=== PATIENT | female | born 1960 | race Caucasian/White ===

== ENCOUNTER 2016-06-26 08:23 | Inpatient (IN) | payer MEDICARE ==
--- NOTE | 2016-06-26 09:13 | ED ---
General Adult HPI - General Chief complaint: Back Pain/Injury Stated complaint: weakness, chest pressure, Time Seen by Provider: 06/26/16 08:36 Source: patient, RN notes reviewed Mode of arrival: wheelchair Limitations: no limitations - History of Present Illness Initial comments: Patient is a 55-year-old female significant past medical history for chronic back pain, hypertension, hyperlipidemia, diabetes, who presents emergency room today with a chief complaint of increased lower back pain with some chest pain. Patient does admit that she's noticed the symptoms the last 3 days. Patient states that she has noticed when she goes to from assisted to standing position she has increased pain in her back that radiates around to the abdomen at times and then shoots down her legs. She states it feels like her legs are shaking. She states that she at times also felt some chest pressure with this. Patient states she has to sit back down and the symptoms resolved. Patient denies any bowel or bladder incontinence retention. She denies any saddle anesthesia. She denies any to her back. She does admit to a lumbar fusion approximately 15 years ago. At this time patient states she is comfortable as she is laying down in stretcher. Patient denies any recent fever, chills, shortness of breath , chest pain, back pain, abdominal pain, nausea or vomiting, numbness or tingling, dysuria or hematuria, constipation or diarrhea, headaches or visual changes, or any other complaints. - Related Data Home Medications Medication Instructions Recorded Confirmed Gabapentin 600 mg PO HS 03/18/14 06/26/16 Gabapentin [Neurontin] 300 mg PO DAILY 03/18/14 06/26/16 Insulin Aspart [NovoLOG] See Protocol SQ AC-TID PRN 03/18/14 06/26/16 Insulin NPH Hum/Reg Insulin Hm 10 unit SQ HS 03/18/14 06/26/16 [NovoLIN 70-30 100 UNIT/ML VIAL] Lisinopril [Prinivil] 20 mg PO DAILY 03/18/14 06/26/16 metFORMIN HCL [Glucophage] 500 mg PO BID 03/18/14 06/26/16 Acetaminophen [Tylenol] 325 mg PO Q4H PRN 06/26/16 06/26/16 Atorvastatin [Lipitor] 80 mg PO HS 06/26/16 06/26/16 DULoxetine HCL [Cymbalta] 60 mg PO HS 06/26/16 06/26/16 HYDROcodone/APAP 5-325MG [[place] 1 tab PO Q6HR PRN 06/26/16 06/26/16 5-325] Insulin NPH Hum/Reg Insulin Hm 15 unit SQ AC-BRKFST 06/26/16 06/26/16 [NovoLIN 70-30 100 UNIT/ML VIAL] Previous Rx's Medication Instructions Recorded Omeprazole [PriLOSEC] 20 mg PO AC-BID #60 capsule. 08/12/14 Allergies Allergy/AdvReac Type Severity Reaction Status Date / Time gluten AdvReac Nausea & Verified 06/26/16 08:54 Vomiting & Diarrhea soy AdvReac Nausea & Verified 06/26/16 08:54 Vomiting & Diarrhea wheat AdvReac Nausea & Verified 06/26/16 08:54 Vomiting & Diarrhea Review of Systems ROS Statement: Those systems with pertinent positive or pertinent negative responses have been documented in the HPI. ROS Other: All systems not noted in ROS Statement are negative. Past Medical History Past Medical History: Diabetes Mellitus, Hyperlipidemia, Hypertension Additional Past Medical History / Comment(s): pancreatitis X2 (Last was 05/02), celiac disease, feet neuropathy, DJD History of Any Multi-Drug Resistant Organisms: None Reported Past Surgical History: Back Surgery, Cholecystectomy, Orthopedic Surgery Additional Past Surgical History / Comment(s): spinal cord stimulator, knee Sx Left side Past Anesthesia/Blood Transfusion Reactions: No Reported Reaction Additional Past Anesthesia/Blood Transfusion Reaction / Comment(s): Never had blood transfusion Past Psychological History: No Psychological Hx Reported Smoking Status: Current every day smoker Past Alcohol Use History: None Reported Past Drug Use History: None Reported - Past Family History Father Family Medical History: Liver Disease Additional Family Medical History / Comment(s): Idiopathic cirrosis of liver Mother Family Medical History: Coronary Artery Disease (CAD), Hyperlipidemia, Hypertension, Myocardial Infarction ([place]) Additional Family Medical History / Comment(s): Multiple stents General Exam - General Exam Comments Initial Comments: General: The patient is awake and alert, in no distress, and does not appear acutely ill. Eye: Pupils are equal, round and reactive to light, extra-ocular movements are intact. No nystagmus. There is normal conjunctiva bilaterally. No signs of icterus. Ears, nose, mouth and throat: There are moist mucous membranes and no oral lesions. Neck: The neck is supple, there is no tenderness or JVD. Cardiovascular: There is a regular rate and rhythm. No murmur, rub or gallop is appreciated. Respiratory: Lungs are clear to auscultation, respirations are non-labored, breath sounds are equal. No wheezes, stridor, rales, or rhonchi. Gastrointestinal: Soft, non-distended, non-tender abdomen without masses or organomegaly noted. There is no rebound or guarding present. No CVA tenderness. Bowel sounds are unremarkable. Musculoskeletal: Normal ROM, no tenderness. Normal appearance of the thoracic , lumbar spine with no step-offs forms appreciated. Strength 5/5. Sensation intact. Pulses equal bilaterally 2+. Neurological: A&O x 3. CN II-XII intact, There are no obvious motor or sensory deficits. Coordination appears grossly intact. Speech is normal. Skin: Skin is warm and dry and no rashes or lesions are noted. Psychiatric: Cooperative, appropriate mood & affect, normal judgment. Limitations: no limitations Course Vital Signs 06/26/16 06/26/16 08:25 09:19 Temperature 98.2 F Pulse Rate 99 85 Respiratory 16 16 Rate Blood Pressure 133/89 135/96 O2 Sat by Pulse 96 98 Oximetry EKG Findings - EKG Comments: EKG Findings:: EKG performed at 9:00: A 12-lead EKG was performed and interpreted by me as showing the following: Rate is 83, and rhythm is normal sinus. There are normal QRS complexes and normal R-wave progression. ST segments have no elevation or depression, and DE segments appear normal. Medical Decision Making - Medical Decision Making Case discussed in detail with attending physician Dr. Adhikari.Patient reexamined at this time shows no signs of distress. No chest pain at emergency room. Does admit the pain is reproduced she stands up begins walking. Patient x-ray of the lower back shows stable findings. X-ray of the chest negative for any acute abnormalities. Patient's EKG shows normal sinus rhythm. Patient's reticulocyte enzymes are negative. Magnesium 1.4. Patient's blood sugar elevated. Patient placed on sliding scale given a gram of magnesium will be admitted to observation for serial enzymes. - Lab Data Result diagrams: 06/26/16 08:28 06/26/16 08:28 Lab Results 06/26/16 06/26/16 06/26/16 Range/Units 08:28 08:28 08:28 WBC 6.8 (3.8-10.6) k/uL RBC 5.53 H (3.80-5.40) m/uL Hgb 17.6 H (11.4-16.0) gm/dL Hct 48.2 H (34.0-46.0) % MCV 87.0 (80.0-100.0) fL MCH 31.8 (25.0-35.0) pg MCHC 36.5 (31.0-37.0) g/dL RDW 14.5 (11.5-15.5) % Plt Count 190 (150-450) k/uL Neutrophils % 61 % Lymphocytes % 29 % Monocytes % 5 % Eosinophils % 2 % Basophils % 1 % Neutrophils # 4.1 (1.3-7.7) k/uL Lymphocytes # 2.0 (1.0-4.8) k/uL Monocytes # 0.4 (0-1.0) k/uL Eosinophils # 0.1 (0-0.7) k/uL Basophils # 0.1 (0-0.2) k/uL Hyperchromasia Slight Poikilocytosis Slight PT (9.0-12.0) sec INR (<1.1) APTT (22.0-30.0) sec Sodium 133 L (137-145) mmol/L Potassium 3.9 (3.5-5.1) mmol/L Chloride 97 L (98-107) mmol/L Carbon Dioxide 22 (22-30) mmol/L Anion Gap 14 mmol/L BUN 12 (7-17) mg/dL Creatinine 0.54 (0.52-1.04) mg/dL Est GFR (MDRD) Af Amer >60 (>60 ml/min/1.73 sqM) Est GFR (MDRD) Non-Af >60 (>60 ml/min/1.73 sqM) Glucose 365 H (74-99) mg/dL Calcium 9.5 (8.4-10.2) mg/dL Magnesium 1.4 L (1.6-2.3) mg/dL Total Bilirubin 0.8 (0.2-1.3) mg/dL AST 26 (14-36) U/L ALT 36 (9-52) U/L Alkaline Phosphatase 73 (38-126) U/L Total Creatine Kinase 40 (30-135) U/L CK-MB (CK-2) 1.1 (0.0-2.4) ng/mL CK-MB (CK-2) Rel Index 2.8 Troponin I <0.012 (0.000-0.034) ng/mL Total Protein 7.8 (6.3-8.2) g/dL Albumin 4.3 (3.5-5.0) g/dL 06/26/16 Range/Units 08:28 WBC (3.8-10.6) k/uL RBC (3.80-5.40) m/uL Hgb (11.4-16.0) gm/dL Hct (34.0-46.0) % MCV (80.0-100.0) fL MCH (25.0-35.0) pg MCHC (31.0-37.0) g/dL RDW (11.5-15.5) % Plt Count (150-450) k/uL Neutrophils % % Lymphocytes % % Monocytes % % Eosinophils % % Basophils % % Neutrophils # (1.3-7.7) k/uL Lymphocytes # (1.0-4.8) k/uL Monocytes # (0-1.0) k/uL Eosinophils # (0-0.7) k/uL Basophils # (0-0.2) k/uL Hyperchromasia Poikilocytosis PT 10.6 (9.0-12.0) sec INR 1.0 (<1.1) APTT 24.2 (22.0-30.0) sec Sodium (137-145) mmol/L Potassium (3.5-5.1) mmol/L Chloride (98-107) mmol/L Carbon Dioxide (22-30) mmol/L Anion Gap mmol/L BUN (7-17) mg/dL Creatinine (0.52-1.04) mg/dL Est GFR (MDRD) Af Amer (>60 ml/min/1.73 sqM) Est GFR (MDRD) Non-Af (>60 ml/min/1.73 sqM) Glucose (74-99) mg/dL Calcium (8.4-10.2) mg/dL Magnesium (1.6-2.3) mg/dL Total Bilirubin (0.2-1.3) mg/dL AST (14-36) U/L ALT (9-52) U/L Alkaline Phosphatase (38-126) U/L Total Creatine Kinase (30-135) U/L CK-MB (CK-2) (0.0-2.4) ng/mL CK-MB (CK-2) Rel Index Troponin I (0.000-0.034) ng/mL Total Protein (6.3-8.2) g/dL Albumin (3.5-5.0) g/dL Disposition Clinical Impression: Chest pain, Back pain, Lumbar radiculopathy Disposition: ADMITTED IP TO THIS [facility] Condition: Stable Time of Disposition: 10:12
[2016-06-26 09:22] LABS: Partial Thromboplastin Time 24.2 sec (22.0-30.0); Prothrombin Time 10.6 sec (9.0-12.0)
[2016-06-26 09:24] LABS: Basophils # (A) 0.1 k/uL (0-0.2); Basophils % (A) 1 %; Eosinophils # (A) 0.1 k/uL (0-0.7); Eosinophils % (A) 2 %; HCT 48.2 % (34.0-46.0); HDW 3.52; HGB 17.6 gm/dL (11.4-16.0); Hyperchromasia Slight; Luc # (Auto) 0.13; Luc % (Auto) 2; Lymphocytes % (A) 29 %; MCH 31.8 pg (25.0-35.0); MCHC 36.5 g/dL (31.0-37.0); Mean Platelet Volume 7.4; Monocytes # (A) 0.4 k/uL (0-1.0); Monocytes % (A) 5 %; Neutrophils # (A) 4.1 k/uL (1.3-7.7); Neutrophils % (A) 61 %; Poikilocytosis Slight; RBC 5.53 m/uL (3.80-5.40); RDW 14.5 % (11.5-15.5); WBC 6.8 k/uL (3.8-10.6)
--- NOTE | 2016-06-26 09:26 | XR ---
EXAMINATION TYPE: XR chest 2V DATE OF EXAM: 06/26/2016 9:15 AM COMPARISON: 08/18/2014 HISTORY: Shortness of breath TECHNIQUE: Frontal and lateral views of the chest are obtained. FINDINGS: Scattered senescent parenchymal changes noted. Hyperinflation compatible with COPD. No evidence for infiltrate. No evidence for atelectasis. Heart size is stable. Mediastinal structures are stable and grossly unremarkable. No evidence for hilar prominence. Degenerative changes dorsal spine. IMPRESSION: 1. No evidence for acute pulmonary disease.
[2016-06-26 09:28] LABS: Creatine Kinase 40 U/L (30-135)
[2016-06-26 09:30] LABS: ALT 36 U/L (9-52); AST 26 U/L (14-36); Alkaline Phosphatase 73 U/L (38-126); Anion Gap 14 mmol/L; Blood Urea Nitrogen 12 mg/dL (7-17); Calcium 9.5 mg/dL (8.4-10.2); Carbon Dioxide 22 mmol/L (22-30); Chloride 97 mmol/L (98-107); Glucose 365 mg/dL (74-99); Magnesium 1.4 mg/dL (1.6-2.3); Non-African American GFR(MDRD) >60 (>60 ml/min/1.73 sqM); Potassium 3.9 mmol/L (3.5-5.1); Sodium 133 mmol/L (137-145); Total Bilirubin 0.8 mg/dL (0.2-1.3); Total Protein 7.8 g/dL (6.3-8.2)
--- NOTE | 2016-06-26 09:32 | XR ---
EXAMINATION TYPE: XR lumbar spine 2 or 3V DATE OF EXAM: 06/26/2016 9:15 AM CLINICAL HISTORY: pain TECHNIQUE: Three views of the lumbar spine are submitted. COMPARISON: None. FINDINGS: Postsurgical changes of fusion are noted at L4-5 and L5-S1. Pedicular screws are in place. There is g rade 1 anterolisthesis L3 on L4 measuring 3.3 mm. Degenerative narrowing is seen at L1-L2 and to a le ss extent at L2-3 and L3-4. Ventral spondylosis is identified. IMPRESSION: Postoperative changes of lumbar fusion. Grade 1 anterolisthesis of L3 on L4. Degenerative changes as noted. ICD 10 NO FRACTURE, INITIAL EVALUATION
[2016-06-26 09:40] LABS: Creatine Kinase MB 1.1 ng/mL (0.0-2.4); Troponin I <0.012 ng/mL (0.000-0.034)
[2016-06-26] MEDS ORDERED: NITROGLYCERIN SL TABS 0.4 MG TAB SUBLINGUAL PRN (10:17)
[2016-06-26] MEDS ORDERED: HEPARIN SODIUM,PORCINE 5,000 UNIT/ML 1 ML VIAL IV ONE (10:17)
[2016-06-26] MEDS ORDERED: ASPIRIN 81 MG CHEW PO STA (10:17)
[2016-06-26] MEDS ORDERED: SODIUM CHLORIDE 0.9% 1,000 ML IV ONE (10:17)
[2016-06-26] MEDS ORDERED: MAGNESIUM SULFATE-D5W PMX 1 GM in DEXTROSE/WATER 1 100ML.BAG IVPB ONE (10:20)
[2016-06-26] MEDS: HEPARIN SODIUM,PORCINE/D5W PMX 25,000 UNIT in DEXTROSE/WATER 1 500ML.BAG IV SCH (10:35)
[2016-06-26 11:00] LABS: Hemoglobin A1C 9.4 % (4.2-6.1)
[2016-06-26 13:18] LABS: Glucose,Whole Blood 382 mg/dL (75-99)
[2016-06-26] MEDS ORDERED: INSULIN LISPRO (humaLOG) 300 UNIT/3 ML VIAL SQ ONE (13:18)
[2016-06-26] MEDS ORDERED: ACETAMINOPHEN TAB 325 MG TAB PO PRN (14:30)
[2016-06-26 14:35] LABS: Creatine Kinase 34 U/L (30-135)
[2016-06-26 14:48] LABS: Troponin I <0.012 ng/mL (0.000-0.034)
[2016-06-26 15:11] LABS: Glucose,Whole Blood 314 mg/dL (75-99)
[2016-06-26] MEDS: INSULIN LISPRO (humaLOG) 300 UNIT/3 ML VIAL SQ SCH ×3 (15:20→20:48)
[2016-06-26] MEDS: INSULIN NPH/REG INSULIN 70/30 300 UNIT/3 ML VIAL SQ SCH (15:21)
[2016-06-26] MEDS: GABAPENTIN 300 MG CAP PO SCH ×2 (15:21→20:47)
[2016-06-26] MEDS: LISINOPRIL 20 MG TAB PO SCH (15:21)
[2016-06-26] MEDS ORDERED: HEPARIN SODIUM,PORCINE 5,000 UNIT/ML 1 ML VIAL IV STA (17:28)
[2016-06-26 17:29] LABS: Glucose,Whole Blood 291 mg/dL (75-99)
[2016-06-26] MEDS: PANTOPRAZOLE 40 MG TABLET PO SCH (17:42)
[2016-06-26] MEDS: HYDROcodone/APAP 5-325MG 1 EACH TAB PO PRN ×2 (17:51→23:03)
--- NOTE | 2016-06-26 19:00 | HP ---
DATE OF ADMISSION: [id number] with past medical history of ( ) complains of back pain radiating to the lower limbs. The patient does not have any significant weakness. Patient's [id number] test is positive. Patient denied any ( ) and patient had back surgeries in the past. Patient is also complaining of chest pressure-like sensation which ( ) from her chronic low back pain, because of which she ( ) came to the ER. Patient's pain is on and off, sharp in nature, non-radiating, mostly in the back radiating to the front. Patient has diffuse chest pain; appears to mostly musculoskeletal. Denied any relationship with food. Denied any shortness of breath. Her pain is about 6 to 7 out of 10 in severity. Chest pain is mostly pressure-like sensation, about 3 to 4 out of 10 in severity. Patient denied any fever, chills, cough, runny nose. Patient's chest pain is non-pleuritic in nature. We are obtaining PT and OT consultation because of her severe back pain and patient may have issues at home ambulating and patient will need pain control as well. Along with that, will also rule out acute coronary syndromes. Home medications include: 1. Gabapentin. 2. Insulin Aspart. 3. Sliding scale 70/30 10 units subcutaneously at bedtime. 4. ( ) 5. Metformin 500 p.o. b.i.d. 6. Acetaminophen. 7. Atorvastatin. 8. Duloxetine. 9. Hydrocodone/acetaminophen. 10. NPH 15 units at breakfast 70/30. 11. Omeprazole. ALLERGIES: 1. GLUTEN. 2. SOY. 3. WHEAT. REVIEW OF SYSTEMS: CONSTITUTIONAL: No fever, no malaise, no fatigue. HEENT: No recent visual problems or hearing problems. Denied any sore throat. CARDIOVASCULAR: As described in HPI. PULMONARY: No shortness of breath, no cough, no hemoptysis. GASTROINTESTINAL: No diarrhea, no nausea, no vomiting, no abdominal pain. Normoactive bowel sounds. NEUROLOGICAL: No headaches, no weakness, no numbness. HEMATOLOGICAL: Denies any bleeding or petechiae. GENITOURINARY: Denies any burning micturition, frequency, or urgency. MUSCULOSKELETAL/RHEUMATOLOGICAL: As described in HPI. ENDOCRINE: Denies any polyuria or polydipsia. The rest of the 14 point review of systems is negative. Past medical history is significant for: 1. Pancreatitis twice. 2. Celiac disease. 3. Neuropathy. 4. Degenerative joint disease. 5. Chronic back problems, back surgery. 6. Diabetes mellitus, type 2. 7. Hyperlipidemia. 8. Hypertension. 9. Back surgery. 10. Cholecystectomy. Patient does smoke. Denied any alcohol abuse or any drug abuse. FAMILY HISTORY: Father had hepatitis C, idiopathic cirrhosis of the liver. Mother had coronary artery disease, hyperlipidemia, hypertension, myocardial infarction. PHYSICAL EXAMINATION: VITAL SIGNS: Temperature 98.2, pulse of 85, respiratory rate of 16. Blood pressure is 135/96. Saturating at 98% on room air. GENERAL: The patient is alert and oriented x3, not in any acute distress. Well developed, well nourished. HEENT: Pupils are round and equally reacting to light. EOMI. No scleral icterus. No conjunctival pallor. Normocephalic, atraumatic. No pharyngeal erythema. No thyromegaly. CARDIOVASCULAR: S1 and S2 present. No murmurs, rubs, or gallops. PULMONARY: Chest is clear to auscultation, no wheezing or crackles. ABDOMEN: Soft, nontender, nondistended, normoactive bowel sounds. No palpable organomegaly. MUSCULOSKELETAL: As described above. EXTREMITIES: No cyanosis, clubbing, or pedal edema. NEUROLOGICAL: The patient does not appear to have any focal neurological deficits. SKIN: No rashes. LABORATORY DATA: CBC, CMP are abnormal for elevated hemoglobin of 17.6 secondary probably to chronic hypoxemia versus hemoconcentration from smoking. Sodium is 133. Patient will be started on ( ) rest of the laboratory data essentially within normal limits. EKG not significant. No significant new ST-T wave changes. PT and INR essentially within normal limits. ASSESSMENT AND PLAN: 1. Chest pain; appears to be mostly musculoskeletal. Will ( ) set of troponins ( ) 2. Chronic low back pain. Patient has issues with her ADLs, because of which we will get PT and OT evaluation; if she will benefit from ( ) therapy. 3. Diabetes mellitus. Continue with her home regimen and t.i.d. blood sugar monitoring. 4. Hyponatremia; appears to be mildly ( ) patient will be given IV fluids. 5. Elevated hematocrit, probably ( ) hypoxemia. 6. Hypertension. 7. Hyperlipidemia. For above-mentioned chronic medical problems, I will go ahead and continue her home medications and monitor vitals.
[2016-06-26] MEDS: DULoxetine HCL 60 MG CAPSULE.DR PO SCH (20:47)
[2016-06-26] MEDS: ATORVASTATIN 80 MG TAB PO SCH (20:47)
[2016-06-26 20:48] LABS: Glucose,Whole Blood 392 mg/dL (75-99)
[2016-06-26] MEDS ORDERED: INSULIN NPH/REG INSULIN 70/30 300 UNIT/3 ML VIAL SQ SCH (21:00)
[2016-06-26 21:54] LABS: Creatine Kinase 31 U/L (30-135)
[2016-06-26 22:06] LABS: Creatine Kinase MB 0.9 ng/mL (0.0-2.4); Troponin I <0.012 ng/mL (0.000-0.034)
[2016-06-26] MEDS ORDERED: MAG HYDROX/AL HYDROX/SIMETH 30 ML CUP PO PRN (23:01)
[2016-06-27 06:31] LABS: Glucose,Whole Blood 285 mg/dL (75-99)
[2016-06-27 08:22] LABS: Cholesterol 207 mg/dL (<200); HDL Cholesterol 40 mg/dL (40-60)
[2016-06-27] MEDS ORDERED: ASPIRIN 325 MG TAB PO SCH (09:00)
--- NOTE | 2016-06-27 09:38 | P.CRDCN ---
History of Present Illness Consult date: 06/27/16 Chief complaint: Chest discomfort History of present illness: This is a pleasant 55-year-old female patient who never seen a hematology technologist with a past medical history significant for diabetes, hypertension , dyslipidemia, and significant history of smoking, presented to the emergency room not feeling well. The patient describes vague low back pain but over the last several days she has been experiencing discomfort in the chest as a pressure across her chest seems to be mostly exertional once she goes upstairs and down stairs. Nociceptive symptoms of shortness of breath, sweating, or dizziness or lightheadedness. The cardiac enzymes were checked and came in to be unremarkable. The EKG showed dynamic changes in the anterolateral leads. I am concerned about severe underlying CAD in this 55-year-old female with multiple risk factors as well as significant history of smoking as well as significant family history of CAD who also have what it seems to be dynamic EKG changes. Past Medical History Past Medical History: Diabetes Mellitus, GERD/Reflux, Hyperlipidemia, Hypertension Additional Past Medical History / Comment(s): IDDM type I, pancreatitis X2 ( Last was 05/02), celiac disease, feet neuropathy, chronic low back pain, UTIs, duodenitis/duodenal ulcer, hiatal hernia. History of Any Multi-Drug Resistant Organisms: None Reported Past Surgical History: Back Surgery, Cholecystectomy, Orthopedic Surgery Additional Past Surgical History / Comment(s): Lumbar fusion, spinal cord stimulator, L knee arthroscopy, EGD. Past Anesthesia/Blood Transfusion Reactions: No Reported Reaction Additional Past Anesthesia/Blood Transfusion Reaction / Comment(s): Never had blood transfusion Past Psychological History: No Psychological Hx Reported Additional Psychological History / Comment(s): Pt resides with her spouse and their 16 yr old son. She is independent. Smoking Status: Current every day smoker Past Alcohol Use History: None Reported Additional Past Alcohol Use History / Comment(s): Pt is currently trying to quit smoking. She started smoking in 1989. Past Drug Use History: None Reported - Past Family History Father Family Medical History: Liver Disease Additional Family Medical History / Comment(s): Idiopathic cirrosis of liver Mother Family Medical History: Coronary Artery Disease (CAD), Hyperlipidemia, Hypertension, Myocardial Infarction ([place]) Additional Family Medical History / Comment(s): Multiple stents. Mother at the age of 77 or 78yrs from [place]. Medications and Allergies Home Medications Medication Instructions Recorded Confirmed Type Gabapentin 600 mg PO HS 03/18/14 06/26/16 History Gabapentin [Neurontin] 300 mg PO DAILY 03/18/14 06/26/16 History Insulin Aspart [NovoLOG] See Protocol SQ AC-TID PRN 03/18/14 06/26/16 History Insulin NPH Hum/Reg Insulin Hm 10 unit SQ HS 03/18/14 06/26/16 History [NovoLIN 70-30 100 UNIT/ML VIAL] Lisinopril [Prinivil] 20 mg PO DAILY 03/18/14 06/26/16 History metFORMIN HCL [Glucophage] 500 mg PO BID 03/18/14 06/26/16 History Acetaminophen [Tylenol] 325 mg PO Q4H PRN 06/26/16 06/26/16 History Atorvastatin [Lipitor] 80 mg PO HS 06/26/16 06/26/16 History DULoxetine HCL [Cymbalta] 60 mg PO HS 06/26/16 06/26/16 History HYDROcodone/APAP 5-325MG [[place] 1 tab PO Q6HR PRN 06/26/16 06/26/16 History 5-325] Insulin NPH Hum/Reg Insulin Hm 15 unit SQ AC-BRKFST 06/26/16 06/26/16 History [NovoLIN 70-30 100 UNIT/ML VIAL] Allergies Allergy/AdvReac Type Severity Reaction Status Date / Time gluten AdvReac Nausea & Verified 06/26/16 08:54 Vomiting & Diarrhea soy AdvReac Nausea & Verified 06/26/16 08:54 Vomiting & Diarrhea wheat AdvReac Nausea & Verified 06/26/16 08:54 Vomiting & Diarrhea Physical Exam Vitals: Vital Signs Temp Pulse Pulse Resp BP BP Pulse Ox 06/27/16 07:47 97.9 F 72 16 119/75 94 L 06/27/16 07:23 93 L 06/27/16 04:00 97.7 F 77 16 106/72 100 06/26/16 23:55 16 06/26/16 23:37 98.0 F 78 16 107/63 93 L 06/26/16 20:00 16 06/26/16 19:50 97.7 F 87 16 107/67 94 L 06/26/16 17:08 92 L 06/26/16 16:00 16 06/26/16 13:48 98.0 F 75 16 124/83 96 06/26/16 13:11 97.8 F 82 16 156/82 95 06/26/16 11:51 76 16 129/79 96 Intake and Output 06/26/16 06/27/16 06/27/16 22:59 06:59 14:59 Intake Total 486.841 168.198 Balance 486.841 168.198 Intake: Intake, IV Titration 126.841 168.198 Amount Heparin Sodium,Porcine/ 126.841 168.198 D5w Pmx 25,000 unit In Dextrose/Water 1 500ml. bag @ 12 UNITS/KG/HR 17. 74 mls/hr IV .Q24H MAGALY Rx #:[id number] Oral 360 Other: # Voids 1 1 - Constitutional General appearance: no acute distress - Respiratory Respiratory: bilateral: CTA - Cardiovascular Rhythm: regular Heart sounds: normal: S1, S2 Results 06/26/16 08:28 06/26/16 08:28 Cardiac Enzymes 06/26/16 06/26/16 Range/Units 14:00 21:11 CK-MB (CK-2) 1.0 0.9 (0.0-2.4) ng/mL Troponin I <0.012 <0.012 (0.000-0.034) ng/mL Coagulation 06/26/16 06/26/16 06/27/16 Range/Units 16:03 23:54 07:16 APTT 25.9 26.5 29.4 (22.0-30.0) sec Current Medications Generic Name Dose Route Start Last Admin Trade Name Freq PRN Reason Stop Dose Admin Acetaminophen 325 mg 06/26/16 14:30 Tylenol Tab PO Q4H PRN Pain Hydrocodone Bitart/Acetaminophen 1 each 06/26/16 14:30 06/26/16 23:03 [place] 5-325 PO 1 each Q6HR PRN Administration Pain Al Hydroxide/Mg Hydroxide 30 ml 06/26/16 23:01 06/26/16 23:44 Maalox PO 30 ml Q4HR PRN Administration GI Upset Aspirin 325 mg 06/27/16 09:00 Aspirin PO DAILY MAGALY Atorvastatin Calcium 80 mg 06/26/16 21:00 06/26/16 20:47 Lipitor PO 80 mg HS MAGALY Administration Duloxetine HCl 60 mg 06/26/16 21:00 06/26/16 20:47 Cymbalta PO 60 mg HS MAGALY Administration Gabapentin 600 mg 06/26/16 21:00 06/26/16 20:47 Neurontin PO 600 mg HS MAGALY Administration Gabapentin 300 mg 06/26/16 14:45 06/26/16 15:21 Neurontin PO 300 mg DAILY MAGALY Administration Heparin Sodium/Dextrose 25,000 500 mls @ 17.74 mls/hr 06/26/16 10:30 01:19 unit/ IV Solution IV 18 units/kg/hr .Q24H MAGALY 26.61 mls/hr Protocol Titration 12 UNITS/KG/HR Sodium Chloride 1,000 mls @ 20 mls/hr 06/26/16 10:17 06/26/16 10:29 Saline 0.9% IV 06/27/16 10:16 20 mls/hr .Q24H ONE Administration Insulin Human Isoph/Insulin Regular 15 unit 06/26/16 14:45 06/26/16 15:21 Humulin 70/30 Vial SQ 15 unit AC-BRKFST MAGALY Administration Insulin Human Isoph/Insulin Regular 10 unit 06/26/16 21:00 06/26/16 20:48 Humulin 70/30 Vial SQ 10 unit HS MAGALY Administration Insulin Human Lispro 0 unit 06/26/16 12:30 06/26/16 20:48 Humalog SQ 7 unit ACHS MAGALY Administration Protocol Lisinopril 20 mg 06/26/16 14:45 06/26/16 15:21 Zestril PO 20 mg DAILY MAGALY Administration Nitroglycerin 0.4 mg 06/26/16 10:17 Nitrostat SUBLINGUAL Q5M PRN Chest Pain Pantoprazole Sodium 40 mg 06/26/16 17:30 06/26/16 17:42 Protonix PO 40 mg AC-BID MAGALY Administration Intake and Output 06/26/16 06/27/16 06/27/16 22:59 06:59 14:59 Intake Total 486.841 168.198 Balance 486.841 168.198 Intake: Intake, IV Titration 126.841 168.198 Amount Heparin Sodium,Porcine/ 126.841 168.198 D5w Pmx 25,000 unit In Dextrose/Water 1 500ml. bag @ 12 UNITS/KG/HR 17. 74 mls/hr IV .Q24H MAGALY Rx #:[id number] Oral 360 Other: # Voids 1 1 Assessment and Plan Plan: Assessment #1 intermittent episodes of chest discomfort #2 dynamic EKG changes #3 multiple risk factors for CAD Plan #1 I recommended proceeding with heart catheterization.
[2016-06-27] MEDS ORDERED: ASPIRIN 325 MG TAB PO STA (09:48)
[2016-06-27] MEDS ORDERED: NITROGLYCERIN SL TABS 0.4 MG TAB SUBLINGUAL PRN (09:48)
[2016-06-27] MEDS ORDERED: SODIUM CHLORIDE 0.9% 1,000 ML in EMPTY BAG 1 BAG IV ONE (09:48)
[2016-06-27] MEDS ORDERED: ALPRAZolam 0.25 MG TAB PO PRN (09:48)
[2016-06-27] MEDS ORDERED: ATORVASTATIN 80 MG TAB PO STA (09:48)
[2016-06-27] MEDS: INSULIN LISPRO (humaLOG) 300 UNIT/3 ML VIAL SQ SCH ×4 (09:50→22:02)
[2016-06-27] MEDS: PANTOPRAZOLE 40 MG TABLET PO SCH ×2 (09:58→17:42)
[2016-06-27] MEDS: GABAPENTIN 300 MG CAP PO SCH ×2 (09:58→22:00)
[2016-06-27 10:22] LABS: Triglycerides 826 mg/dL (<150)
[2016-06-27] MEDS: LISINOPRIL 20 MG TAB PO SCH (10:37)
[2016-06-27 10:44] VITALS: BMI 24.7
[2016-06-27 12:06] LABS: Glucose,Whole Blood 383 mg/dL (75-99)
[2016-06-27] MEDS: HYDROcodone/APAP 5-325MG 1 EACH TAB PO PRN ×2 (17:04→23:00)
[2016-06-27 17:17] LABS: Glucose,Whole Blood 355 mg/dL (75-99)
[2016-06-27] MEDS: INSULIN NPH/REG INSULIN 70/30 300 UNIT/3 ML VIAL SQ SCH ×2 (17:43→22:02)
[2016-06-27] MEDS ORDERED: INSULIN REGULAR 100 UNIT/ML VIAL IV ONE (18:00)
[2016-06-27 20:34] LABS: Glucose,Whole Blood 320 mg/dL (75-99)
[2016-06-27] MEDS: DULoxetine HCL 60 MG CAPSULE.DR PO SCH (22:00)
[2016-06-27] MEDS: ALPRAZolam 0.5 MG TAB PO PRN (22:59)
--- NOTE | 2016-06-27 23:06 | PN ---
SUBJECTIVE DATA/INTERVAL HISTORY: This is a 55-year-old female that was admitted to the hospital with complaints of vague lower abdominal pain and some chest discomfort over the last few days. The patient does state to have reproducible of these symptoms on exertion. Today patient did state to have reproducibility of the symptoms while the patient was ambulating to the restroom. EKG on initial evaluation, showed some subtle changes in the anterolateral leads. Cardiac enzymes x3 have been negative. OBJECTIVE DATA: Today includes: Vital signs of temperature 96.7, heart rate 75, respiratory rate 16, blood pressure 109/67, saturating 95% on room air. GENERALLY: Patient appears to be alert, oriented x3. HEENT: The pupils are equal and reactive to light and accommodation. HEART: S1, S2 present. No murmur appreciated. LUNGS: Good air entry. No wheezing or rhonchi noted. ABDOMINAL EXAM: Soft, nontender, no organomegaly appreciated. GENITOURINARY: No Ragland in place. EXTREMITIES: Pulses can be palpated distally. Denies any tenderness on gross palpation. SKIN: On a gross skin exam does not appear to have any purpura or any skin rashes that were noted. NEUROLOGICALLY: Grossly cranial nerves 2-12 intact. No motor or sensory deficits noted. Labs include hemoglobin 17.6, hematocrit 48.2 and platelets of 190. This is from 06/26/2016. Today's labs include triglycerides of 826, cholesterol 207, glucose levels between 285 and 383. ASSESSMENT AND PLAN: 1. Atypical chest pain with some concern with some typical features including exertional reproducibility of pain with significant risk factors including diabetes, ongoing tobacco use and family history. 2. Triglyceridemia. 3. Diabetic neuropathy. 4. Gastroesophageal reflux disease. 5. Ongoing tobacco use. 6. Hypertension. 7. Anxiety. PLAN: Due to reproduce of symptoms, the patient is to undergo a cardiac catheterization as recommended by the log cut off sawyer. We will adjust the insulin dosing to 15 twice a day to insulin Humulin 70/30 and NovoLog sliding scale a.c. q.h.s. We will also give an additional 5 units of IV regular insulin to control her glucose levels slightly better at this time. Disposition will be dependent on the results of the cardiac catheterization. Smoking cessation is recommended to the patient.
[2016-06-28] MEDS: HYDROcodone/APAP 5-325MG 1 EACH TAB PO PRN (04:00)
[2016-06-28 06:57] LABS: Glucose,Whole Blood 253 mg/dL (75-99)
[2016-06-28] MEDS: ASPIRIN 325 MG TAB PO SCH (09:44)
[2016-06-28] MEDS: PANTOPRAZOLE 40 MG TABLET PO SCH ×2 (09:44→17:20)
[2016-06-28] MEDS: GABAPENTIN 300 MG CAP PO SCH ×2 (09:44→22:49)
[2016-06-28] MEDS: LISINOPRIL 20 MG TAB PO SCH (09:44)
[2016-06-28] MEDS: ATORVASTATIN 80 MG TAB PO SCH (09:45)
[2016-06-28] MEDS ORDERED: MIDAZOLAM 2 MG/2 ML VIAL IVP ONE ×2 (10:14→11:48)
[2016-06-28] MEDS ORDERED: LIDOCAINE 2% INJ 20 MG/ML SQ ONE ×3 (10:15→12:03)
[2016-06-28] MEDS ORDERED: IV FLUID CONTINUATION 150 ML IV ONE (11:48)
[2016-06-28] MEDS: VERAPAMIL SYRINGE (5 MG/10 ML) INTRAARTER ONE ×2 (12:06→12:50)
[2016-06-28] MEDS ORDERED: HYDROmorphone 2 MG/ML 1 ML SYRINGE IV ONE (12:12)
[2016-06-28] MEDS: fentaNYL (PF) 50 MCG/ML 2 ML AMP IV ONE ×2 (12:15→12:25)
[2016-06-28] MEDS ORDERED: BIVALIRUDIN BOLUS 250 MG/50 ML IV ONE (12:22)
[2016-06-28] MEDS ORDERED: BIVALIRUDIN 250 MG in SODIUM CHLORIDE 0.9% 50 ML IV ONE (12:22)
[2016-06-28] MEDS: NITROGLYCERIN 1000MCG/10ML SYRINGE INTRACORON ONE ×2 (12:42→12:48)
[2016-06-28] MEDS ORDERED: SODIUM CHLORIDE 0.9% 1,000 ML IV ONE (12:45)
[2016-06-28] MEDS ORDERED: SODIUM CHLORIDE 0.9% 500 ML IV ONE (12:45)
[2016-06-28] MEDS ORDERED: PRASUGREL 10 MG TAB PO ONE (12:50)
[2016-06-28] MEDS ORDERED: IOHEXOL 350 MG/ML 125ML BOTTLE INJ ONE (12:51)
[2016-06-28] MEDS ORDERED: ATROPINE SULFATE 0.1 MG/ML 10ML SYRINGE IV PRN (12:59)
[2016-06-28] MEDS ORDERED: RX INFO: IV CONTRAST WAS GIVEN 1 EACH MISC MISCELLANE PRN (12:59)
[2016-06-28] MEDS ORDERED: MAG HYDROX/AL HYDROX/SIMETH 30 ML CUP PO PRN (12:59)
[2016-06-28] MEDS ORDERED: NITROGLYCERIN SL TABS 0.4 MG TAB SUBLINGUAL PRN (12:59)
[2016-06-28] MEDS ORDERED: SODIUM CHLORIDE 0.9% 1,000 ML IV SCH (13:00)
[2016-06-28 13:17] LABS: Glucose,Whole Blood 281 mg/dL (75-99)
[2016-06-28] MEDS: INSULIN LISPRO (humaLOG) 300 UNIT/3 ML VIAL SQ SCH ×4 (13:51→22:49)
[2016-06-28 16:40] LABS: Glucose,Whole Blood 277 mg/dL (75-99)
[2016-06-28 16:44] LABS: Glucose,Whole Blood 298 mg/dL (75-99)
[2016-06-28] MEDS: INSULIN NPH/REG INSULIN 70/30 300 UNIT/3 ML VIAL SQ SCH ×3 (16:45→22:51)
[2016-06-28 20:38] LABS: Glucose,Whole Blood 248 mg/dL (75-99)
[2016-06-28] MEDS: ALPRAZolam 0.5 MG TAB PO PRN (22:00)
[2016-06-28] MEDS: ZOLPIDEM 5 MG TAB PO PRN (22:01)
[2016-06-28] MEDS: DULoxetine HCL 60 MG CAPSULE.DR PO SCH (22:49)
--- NOTE | 2016-06-28 22:52 | CC ---
DATE OF SERVICE: 06/28/2016 Performing physician: Vipul Lock M.D., instructor product inspection. PROCEDURE PERFORMED: 1. Selective right and left coronary angiogram. 2. Left heart catheterization. 3. Successful stenting of the mid left circumflex using 2.25 x 18 mm Xience BOB with a good angiographic results. INDICATION: This is a pleasant 55-year-old female patient a past medical history significant for diabetes, hypertension, dyslipidemia, who presented to the hospital with chest discomfort. The EKG showed dynamic changes. Most prominent in the anterolateral leads. I recommended proceeding with heart catheterization. Approach: Right radial artery. COMPLICATIONS: None. Level of sedation: Moderate with sedation. Sedation length of 54 minutes. PROCEDURE DESCRIPTION: After obtaining informed consent, the patient was brought to the cardiac landscaping and groundskeeping laborer. Right radial artery was cannulated using micropuncture technique. The micropuncture wire passed easily, then I placed 6 German sheath in the right radial artery. Subsequently, I gave the patient 2 mg Verapamil IA and 3000 units of heparin IV. After that, I did selective right and left coronary angiogram using JR4 and JL 3.5 catheters. After that, I did left heart catheterization using the JR4 diagnostic catheter, which flipped into the LV. I did after that intervene on the left circumflex. Please see separate paragraph for that. SELECTIVE CORONARY ANGIOGRAM: 1. The right coronary artery is a large-caliber vessel and it is a dominant vessel. The proximal right coronary artery is heavy calcified with eccentric lesion in the range of 70% in the mid RCA appeared ( ) the proximal RCA ( ) the mid RCA appeared to be angiographically normal and the RCA distally appeared to have mild disease only. The RCA bifurcates into PDA and PLV branches; both have mild disease only. 2. The left main is angiographically normal. It bifurcates into the left circumflex and left anterior descending artery. 3. The left circumflex is a large-caliber vessel and nondominant vessel. The proximal circumflex appeared to be angiographically normal and gives rise to the first OM, which is a large-caliber vessel, seems to be angiographically normally. The mid left circumflex by the bifurcation of the second OM has another lesion seems to be in the range of 80% to 90%. The circ continues after that as a small to medium caliber vessel in the AV groove. 4. Left anterior descending artery. The proximal LAD appeared to be angiographically normal. It gives rise to a small to diagonal branch. The LAD in the midportion by the bifurcation of the third diagonal branch appeared to have a lesion in the range of 60% to 70%. The second diagonal appeared to be angiographically normally. The LAD distally is angiographically normal. HEMODYNAMICS: The left ventricular end-diastolic pressure was 12 mmHg and no gradient was identified across the aortic valve. PCI of the left circumflex: Anticoagulation was initiated using Angiomax. Subsequently, I took initially a JL 3.5 guide, but I couldn't engage the left main so I switched to JL 3 guide and I was able to engage the left main. Subsequently I wired the left circumflex using a Whisper wire. After that, I did PTCA ballooning using 20 x 12 mm balloon. Then I deployed 2.25 x 18 mm Xience BOB, where the stent was positioned under fluoroscopy guidance and deployed under 12 atmospheres for 20 seconds. The following angiogram showed good showed good angiographic result without perforation and without dissection with excellent flow in the left circumflex. CONCLUSION: 1. Severe disease involving the proximal calcified right coronary artery. 2. Critical disease involving the mid left circumflex coronary artery. 3. Intermediate disease involving the mid left anterior descending artery. 4. Successful stenting of the mid left circumflex using 2.25 x 18 mm Xience BOB with a good angiographic results. POSTPROCEDURE MANAGEMENT: 1. An atherectomy and stenting of the right coronary artery. 2. Fractional flow reserve of the left anterior descending artery. 3. Follow up with the patient.
[2016-06-29 06:01] LABS: Basophils % (A) 1 %; CH 31.2; CHCM 35.6; Eosinophils # (A) 0.2 k/uL (0-0.7); Eosinophils % (A) 3 %; HDW 3.37; HGB 15.6 gm/dL (11.4-16.0); Luc # (Auto) 0.09; Luc % (Auto) 1; Lymphocytes # (A) 2.3 k/uL (1.0-4.8); Lymphocytes % (A) 36 %; MCH 30.5 pg (25.0-35.0); MCHC 34.6 g/dL (31.0-37.0); MCV 88.1 fL (80.0-100.0); Mean Platelet Volume 7.2; Monocytes # (A) 0.3 k/uL (0-1.0); Monocytes % (A) 5 %; Neutrophils # (A) 3.4 k/uL (1.3-7.7); Neutrophils % (A) 54 %; RBC 5.11 m/uL (3.80-5.40); RDW 14.4 % (11.5-15.5); WBC 6.3 k/uL (3.8-10.6); WBC (Perox) 6.24
[2016-06-29 06:07] LABS: Anion Gap 10 mmol/L; Blood Urea Nitrogen 9 mg/dL (7-17); Calcium 8.9 mg/dL (8.4-10.2); Carbon Dioxide 24 mmol/L (22-30); Chloride 102 mmol/L (98-107); Glucose 263 mg/dL (74-99); Non-African American GFR(MDRD) >60 (>60 ml/min/1.73 sqM); Potassium 4.1 mmol/L (3.5-5.1); Sodium 136 mmol/L (137-145)
[2016-06-29 06:21] LABS: Glucose,Whole Blood 266 mg/dL (75-99)
[2016-06-29] MEDS: PANTOPRAZOLE 40 MG TABLET PO SCH ×2 (06:58→17:06)
[2016-06-29] MEDS: INSULIN LISPRO (humaLOG) 300 UNIT/3 ML VIAL SQ SCH ×4 (06:59→21:33)
[2016-06-29] MEDS ORDERED: INSULIN NPH/REG INSULIN 70/30 300 UNIT/3 ML VIAL SQ SCH ×2 (07:30→21:00)
[2016-06-29] MEDS: GABAPENTIN 300 MG CAP PO SCH ×2 (07:37→21:21)
[2016-06-29] MEDS: ASPIRIN 325 MG TAB PO SCH (07:37)
[2016-06-29] MEDS: LISINOPRIL 20 MG TAB PO SCH (07:37)
[2016-06-29] MEDS: PRASUGREL 10 MG TAB PO SCH (07:37)
--- NOTE | 2016-06-29 08:58 | PN ---
DATE OF SERVICE: 06/28/2016 INTERVAL HISTORY: Ms. Caldwell is a 55-year-old female with a known history of hypertension, hyperlipidemia and uncontrolled diabetes mellitus type 2, insulin-dependent, was admitted to the hospital with chest discomfort over the past few days and definite short of breath and chest pain. ( ) have been negative. Patient does have history of significant risk factors including short of breath and chest pain. Patient underwent cardiac catheterization and stenting of circumflex artery today by Dr. Lock. Currently patient denied any dullness or chest pain now. Apparently patient says that patient has been having lethargy and decreased energy for the past one year. Denied any complaints of fever or chills. No nausea, vomiting, or abdominal pain. No acute overnight issues. REVIEW OF SYSTEMS: CONSTITUTIONAL: No fever. No chills. RESPIRATORY: No cough or sputum production. CARDIOVASCULAR: No chest pain or short of breath. ABDOMEN: No nausea, vomiting or abdominal pain. GENITOURINARY: Negative. ENDOCRINE: Negative. PSYCHIATRY: Negative. SKIN: Negative. All of the 14-point review of systems negative except as above. Current medications include [place], Maalox, Xanax, aspirin, Lipitor, atropine, Cymbalta, Neurontin, insulin 70/30, insulin sliding scale, Zestril, Protonix, Prasugrel, and Ambien. PHYSICAL EXAMINATION: A 55-year-old female, lying in the bed comfortably, awake, alert, oriented x3, appears to be in no apparent distress. VITALS: Blood pressure is 132/88, pulse is 76, respirations 16, temperature afebrile, pulse ox 96% on room air. HEENT: Atraumatic, normocephalic. Neck is supple. No JVD. CVS EXAM: S1, S2 heard. No murmurs, no gallop. LUNGS: Bilateral air entry is present. No wheezing. No crackles. Nonlabored breathing. Abdomen is soft, nontender. Bowel sounds are present. CREDIT PROCESSOR: Awake, alert, oriented x3. No focal deficits. EXTREMITIES: No edema. Pulses palpable bilaterally. No clubbing or cyanosis. PSYCHIATRIC: Cooperative. LABORATORY DATA: Reviewed. Triglycerides 826, total cholesterol at 207, LDL could not be calculated. IMPRESSION: 1. Status post coronary artery stent placement to circumflex artery. 2. Atypical chest pain. 3. Hypertriglyceridemia. 4. Diabetic neuropathy. 5. Diabetes type 2, insulin-dependent, uncontrolled , HbA1c of 9.4. 6. Ongoing tobacco use. 7. Hypertension. 8. Anxiety. 9. Hyperlipidemia. 10. Deep venous thrombosis prophylaxis. DISCUSSION AND PLAN: Patient will be continued on insulin 70/30. Will increase the dose and continue with the ( ) and current management including aspirin, statins and beta blockers will be added. Will follow up closely. Further recommendations based on the clinical course. Cardiology is on board.
[2016-06-29 11:45] LABS: Glucose,Whole Blood 342 mg/dL (75-99)
[2016-06-29] MEDS ORDERED: ALPRAZolam 0.25 MG TAB PO PRN (13:21)
[2016-06-29] MEDS ORDERED: NITROGLYCERIN SL TABS 0.4 MG TAB SUBLINGUAL PRN (13:21)
[2016-06-29] MEDS ORDERED: ASPIRIN 325 MG TAB PO STA (13:21)
[2016-06-29] MEDS ORDERED: SODIUM CHLORIDE 0.9% 1,000 ML in EMPTY BAG 1 BAG IV ONE (13:21)
[2016-06-29] MEDS ORDERED: ATORVASTATIN 80 MG TAB PO STA (13:23)
--- NOTE | 2016-06-29 14:12 | CDI ---
In responding to this query, please exercise your independent professional judgment. The [facility] Coding Staff and Clinical Documentation Specialists appreciate your assistance in clarifying documentation, maintaining compliance with coding guidelines, accurately documenting patients condition and capturing severity of illness. The fact that a question is asked does not imply that any particular answer is desired or expected. Communication forms are a method of clarifying documentation and are not made part of the Legal Health Record. Thank you in advance for your clarification. Last Revision, April 2015 Brissa Inman [address] [place] [address] Documentation Clarification Form Date: 06/29/2016 1:30:00 PM From: Samantha Felder Admit Date: 06/27/2016 4:00:00 PM Patient Name: Mary Jo Caldwell Visit Number: [id number] Discharge Date: Dr. Te Diaz Chest pain, atypical is documented in the progress notes on 06/29/16. Patient C/O: Shortness of breath and chest pain, lethargy and decreased energy. History/Risk factors: Uncontrolled diabetes mellitus type 2, Hypertension Clinical Indicators: Present with weakness, chest pressure, and back pain. Vital sign: 133/89 99 16 98.2 96 % EKG: Dynamic changes in the anteriolateral leads. Labs: Troponin: Unremarkable Treatment: PT/OT Consultation Monitor Labs Cardiac Catheterization: Severe disease involving the proximal calcified right coronary artery. Critical disease involving the mid left circumflex coronary artery. Intermediate disease involving the mid left anterior descending artery. PTCA stent mid left circumflex. Consults: Cardiology: concerned about severe underlying CAD. She has multiple risk factors with history of smoking. and family history or CAD. In your professional opinion, can please clarify if the chest pain signifies, or is due to: CAD with unstable angina (vessel type if known and type of angina e.g.; unstable,) Cardiac arrhythmias, specify type if known Chest pain due to stress related disorder, type? Unable to determine Other condition, please specify? Concurrently please document in your progress notes and discharge summary in order to capture severity of illness and risk of mortality. Include clinical findings that support your diagnosis. FYI: Press F11 to launch patient chart Place X here if this finding has no clinical significance, is not applicable or if you are not able to provide any additional documentation. MTDD
--- NOTE | 2016-06-29 15:10 | P.PN ---
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 Ordered to the patient, she has been having episodes of chest discomfort which she describes as a pressure, mostly exertional in nature. Cardiac enzymes came back to be unremarkable EKG however did show dynamic changes in the anterior lateral leads and for this reason she was taken to the cardiac catheterization lab by Dr. Cruz yesterday. The patient underwent successful stenting of the midcircumflex. She was also found to have severe disease involving the proximal RCA, and intermediate disease involving the LAD. She will be scheduled tomorrow to undergo arthrectomy and stenting of the RCA as well as fractional flow reserve of the LAD with possible stenting of that vessel if necessary. She was seen and examined this morning, denies any chest pain or difficulty in breathing. Radial site clean and dry, good distal pulse. Hemodynamically stable. Objective - Vital Signs Vital signs: Vital Signs Temp 98.5 F 06/29/16 11:29 Pulse 66 06/29/16 11:29 Resp 16 06/29/16 11:29 BP 116/72 06/29/16 11:29 Pulse Ox 97 06/29/16 11:29 Intake & Output 06/28/16 06/29/16 06/29/16 18:59 06:59 18:59 Intake Total 712 900 710 Output Total 275 400 Balance 437 900 310 Weight 75.2 kg Intake: IV 282 Intake, IV Titration 10 Amount Sodium Chloride 0.9% 1, 0 000 ml @ 100 mls/hr IV . Q10H [facility] Rx#:[id number] Sodium Chloride 0.9% 500 10 ml As IV .[facility] Rx# :[id number] Oral 430 900 700 Output: Urine 275 400 Other: Voiding Method Toilet Toilet Toilet # Voids 1 2 - Exam PHYSICAL EXAMINATION: HEENT: Head is atraumatic, normocephalic. Pupils equal, round. Neck is supple. There is no elevated jugular venous pressure. HEART EXAMINATION: Heart S1, S2 normal. No murmur or gallop heard. CHEST EXAMINATION: Lungs are clear to auscultation and precussion. No chest wall tenderness is noted on palpation or with deep breathing. ABDOMEN: Soft, nontender. Bowel sounds are heard. No organomegaly noted. Radial site clean and dry, good distal pulse. EXTREMITIES: 2+ peripheral pulses with no evidence of peripheral edema and no calf tenderness noted. NEUROLOGIC patient is awake, alert and oriented -3. . - Labs CBC & Chem 7: 06/29/16 05:45 06/29/16 05:45 Labs: Abnormal Lab Results - Last 24 Hours (Table) 06/28/16 06/28/16 06/28/16 Range/Units 16:23 16:38 20:37 Plt Count (150-450) k/uL Sodium (137-145) mmol/L Creatinine (0.52-1.04) mg/dL Glucose (74-99) mg/dL POC Glucose (mg/dL) 298 H 277 H 248 H (75-99) mg/dL 06/29/16 06/29/16 06/29/16 Range/Units 05:45 05:45 06:18 Plt Count 131 L (150-450) k/uL Sodium 136 L (137-145) mmol/L Creatinine 0.47 L (0.52-1.04) mg/dL Glucose 263 H (74-99) mg/dL POC Glucose (mg/dL) 266 H (75-99) mg/dL 06/29/16 Range/Units 11:37 Plt Count (150-450) k/uL Sodium (137-145) mmol/L Creatinine (0.52-1.04) mg/dL Glucose (74-99) mg/dL POC Glucose (mg/dL) 342 H (75-99) mg/dL Assessment and Plan (1) Presence of stent in left circumflex coronary artery Status: Acute (2) RCA occlusion Status: Acute (3) Occlusion of LAD (left anterior descending) artery Status: Acute (4) Diabetes Status: Acute (5) HTN (hypertension) Status: Acute (6) Hyperlipemia Status: Acute Plan: From cardiology's perspective, we will continue the patient on her current medications. She will be scheduled tomorrow to undergo arthrectomy and stenting of the RCA as well as FFR of the LAD with possible stenting of that vessel if indicated. DNP note has been reviewed, I agree with a documented findings and plan of care. Patient was seen and examined.
[2016-06-29 17:17] LABS: Glucose,Whole Blood 358 mg/dL (75-99)
[2016-06-29] MEDS: HEPARIN SODIUM,PORCINE/D5W PMX 25,000 UNIT in DEXTROSE/WATER 1 500ML.BAG IV SCH (20:33)
[2016-06-29] MEDS: DULoxetine HCL 60 MG CAPSULE.DR PO SCH (21:21)
[2016-06-29] MEDS: ATORVASTATIN 80 MG TAB PO SCH (21:22)
[2016-06-29 21:39] LABS: Glucose,Whole Blood 351 mg/dL (75-99)
[2016-06-29] MEDS: ALPRAZolam 0.5 MG TAB PO PRN (22:58)
[2016-06-29] MEDS: ZOLPIDEM 5 MG TAB PO PRN (22:58)
[2016-06-29] MEDS ORDERED: INSULIN REGULAR 100 UNIT in SODIUM CHLORIDE 0.9% 100 ML IV SCH (23:45)
[2016-06-30 00:36] LABS: Glucose,Whole Blood 335 mg/dL (75-99)
[2016-06-30] MEDS: HYDROcodone/APAP 5-325MG 1 EACH TAB PO PRN ×3 (01:06→22:21)
[2016-06-30 02:33] LABS: Glucose,Whole Blood 228 mg/dL (75-99)
[2016-06-30 04:32] LABS: Glucose,Whole Blood 235 mg/dL (75-99)
[2016-06-30] MEDS: INSULIN LISPRO (humaLOG) 300 UNIT/3 ML VIAL SQ SCH ×4 (06:02→20:51)
[2016-06-30] MEDS: LISINOPRIL 20 MG TAB PO SCH (06:05)
[2016-06-30] MEDS: ASPIRIN 81 MG CHEW PO SCH (06:05)
[2016-06-30] MEDS: GABAPENTIN 300 MG CAP PO SCH ×2 (06:05→20:50)
[2016-06-30] MEDS: PANTOPRAZOLE 40 MG TABLET PO SCH ×2 (06:05→17:07)
[2016-06-30] MEDS: PRASUGREL 10 MG TAB PO SCH (06:05)
[2016-06-30 06:30] LABS: Glucose,Whole Blood 246 mg/dL (75-99)
[2016-06-30 09:00] LABS: Glucose,Whole Blood 203 mg/dL (75-99)
--- NOTE | 2016-06-30 09:10 | PN ---
DATE OF SERVICE: 06/29/2016 INTERVAL HISTORY: Ms. Caldwell is a 55-year-old female with known history of hypertension, hyperlipidemia, and uncontrolled diabetes mellitus. She was admitted to the hospital with chest discomfort and aggressive shortness of breath. Patient underwent cardiac catheterization with stenting of left anterior descending. Patient is also being ( ) catheterization tomorrow for RCA evaluation. Currently, patient denies chest pain now. Blood sugar is still elevated. Otherwise no fever. No chills. No complaints of short of breath. No nausea, vomiting, abdominal pain. No acute overnight issues. REVIEW OF SYSTEMS: CONSTITUTIONAL: No fever. No chills. No weakness, malaise. RESPIRATORY: No cough or sputum production. CARDIOVASCULAR: No chest pain, shortness of breath. No leg swelling. No palpitations. ABDOMEN: No nausea, vomiting, abdominal pain. No diarrhea. GENITOURINARY: No dysuria. ENDOCRINE: Negative. PSYCHIATRIC: Negative. SKIN: Negative. MUSCULOSKELETAL: Negative. All other 14 point review of systems negative except as above. CURRENT MEDICATIONS: Reviewed. PHYSICAL EXAMINATION: A 55-year-old female lying in bed comfortably, awake, alert, oriented x3, appears to be in no apparent distress. VITALS: Blood pressure is 114/75, pulse is 64, respirations 16, temperature afebrile, pulse ox 98% on room. HEENT: Atraumatic, normocephalic. Neck is supple. No JVD. CVS: S1, S2 heard. No murmurs, no gallop, no rub. LUNGS: Bilateral air entry is present. No wheezing. No crackles. Nonlabored breathing. ABDOMEN: Soft, nontender. Bowel sounds are present. FIELD LOGISTICS COORDINATOR: Awake, alert, oriented x3. No focal deficits. EXTREMITIES: No edema. Pulses palpable bilaterally. No clubbing or cyanosis. PSYCHIATRIC: Cooperative. LABORATORY DATA: WBC 6.3, hemoglobin 15.6, platelet is 131. Sodium 136, potassium 4.1, chloride 102, bicarb is 24, BUN 9, creatinine 0.47. Blood sugar is 263, calcium 8.9. IMPRESSION: 1. Coronary artery disease, status post stent placement to circumflex artery and evaluation of right coronary artery disease tomorrow. 2. Unstable angina with coronary artery disease to the left anterior descending. 3. Hypertriglyceridemia. 4. Diabetic neuropathy. 5. Uncontrolled diabetes type 2 insulin-dependent. HbA1c 9.4. 6. Ongoing tobacco use. 7. Hypertension. 8. Anxiety. 9. Hyperlipidemia. 10. Deep venous thrombosis prophylaxis. DISCUSSION AND PLAN: The patient will be continued on insulin dosing and continue the current medications and follow up closely. Cardiac catheterization tomorrow. Cardiology on board. Further recommendations based on clinical course.
[2016-06-30 10:29] LABS: Glucose,Whole Blood 189 mg/dL (75-99)
[2016-06-30] MEDS ORDERED: MIDAZOLAM 2 MG/2 ML VIAL IV ONE (10:55)
[2016-06-30] MEDS ORDERED: LIDOCAINE 2% INJ 20 MG/ML SQ ONE (11:00)
[2016-06-30] MEDS ORDERED: BIVALIRUDIN BOLUS 250 MG/50 ML IV ONE (11:03)
[2016-06-30] MEDS ORDERED: VERAPAMIL SYRINGE (5 MG/10 ML) INTRAARTER ONE (11:04)
[2016-06-30] MEDS ORDERED: BIVALIRUDIN 250 MG in SODIUM CHLORIDE 0.9% 50 ML IV ONE (11:04)
[2016-06-30] MEDS ORDERED: ADENOSINE 90 MG in SODIUM CHLORIDE 0.9% 60 ML IVP ONE (11:12)
[2016-06-30] MEDS ORDERED: HYDROmorphone 2 MG/ML 1 ML SYRINGE IV ONE (11:19)
[2016-06-30] MEDS ORDERED: SODIUM CHLORIDE 0.9% 1,000 ML IV ONE (11:23)
[2016-06-30 11:28] LABS: Glucose,Whole Blood 177 mg/dL (75-99)
[2016-06-30] MEDS ORDERED: NITROGLYCERIN 1000MCG/10ML SYRINGE INTRACORON ONE ×2 (11:39→11:49)
[2016-06-30] MEDS ORDERED: IOHEXOL 350 MG/ML 125ML BOTTLE INJ ONE (11:59)
[2016-06-30] MEDS ORDERED: ZOLPIDEM 5 MG TAB PO PRN (12:00)
[2016-06-30] MEDS ORDERED: MAG HYDROX/AL HYDROX/SIMETH 30 ML CUP PO PRN (12:00)
[2016-06-30] MEDS ORDERED: RX INFO: IV CONTRAST WAS GIVEN 1 EACH MISC MISCELLANE PRN (12:00)
[2016-06-30] MEDS ORDERED: ATROPINE SULFATE 0.1 MG/ML 10ML SYRINGE IV PRN (12:00)
[2016-06-30] MEDS ORDERED: NITROGLYCERIN SL TABS 0.4 MG TAB SUBLINGUAL PRN (12:00)
[2016-06-30] MEDS ORDERED: SODIUM CHLORIDE 0.9% 1,000 ML IV SCH (12:00)
[2016-06-30 12:41] LABS: Glucose,Whole Blood 167 mg/dL (75-99)
[2016-06-30 14:27] LABS: Glucose,Whole Blood 341 mg/dL (75-99)
[2016-06-30 16:32] LABS: Glucose,Whole Blood 254 mg/dL (75-99)
[2016-06-30 20:49] LABS: Glucose,Whole Blood 293 mg/dL (75-99)
[2016-06-30] MEDS: INSULIN NPH/REG INSULIN 70/30 300 UNIT/3 ML VIAL SQ SCH (20:50)
[2016-06-30] MEDS: ATORVASTATIN 80 MG TAB PO SCH (20:50)
[2016-06-30] MEDS: DULoxetine HCL 60 MG CAPSULE.DR PO SCH (20:50)
[2016-06-30] MEDS: ALPRAZolam 0.5 MG TAB PO PRN (22:25)
--- NOTE | 2016-06-30 22:25 | PTCA ---
DATE OF SERVICE: 06/30/2016 PERFORMING PHYSICIAN: Vipul Lock M.D., administrative office manager. PROCEDURES PERFORMED: 1. Fraction flow reserve of the right coronary artery. 2. Successful stenting of the mid LAD using a 2.25 x 26 mm Xience BOB, with good angiographic results. INDICATION: This is a pleasant 55-year-old female patient who presented to the hospital a few days ago with chest discomfort consistent with angina. She underwent heart catheterization which showed triple-vessel CAD. She was found to have intermediate disease in the right coronary artery, severe disease in the left circumflex and LAD. The patient underwent successful stenting of the left circumflex, with good angiographic results. She was brought in today to undergo an FFR of the RCA and stenting of the LAD. APPROACH: Right radial artery. LEVEL OF SEDATION: Moderate, with sedation length of ( )8 minutes. COMPLICATIONS: None. PROCEDURE DESCRIPTION: After obtaining informed consent, the patient was brought to the cardiac micro lab analyst. The right radial artery was cannulated using micropuncture technique, and the micropuncture wire passed easily. Then I placed a 6 [place] sheath in the right radial artery. I gave the patient 2 mg of Verapamil IA and anticoagulation was initiated using Angiomax. At that point I took a JR4 guiding catheter, and the guide was advanced to the aortic root. I did after that an FFR of the RCA. Please see separate paragraph for that. After that I intervened on the LAD; please see separate paragraph for that. FRACTIONAL FLOW RESERVE, FFR of the RCA: After zeroing the Doppler wire and equalizing between the Doppler wire and the guiding catheter, which was JR4 guiding catheter, we did an FFR per IV adenosine infusion after the Doppler wire advanced distal to the lesion in the proximal RCA. The FFR came in to be 0.82, which is borderline non-ischemic. At that point we decided to treat the RCA medically. PCI OF THE LAD: I took a JL3.0 guiding catheter and the left main was engaged. The LAD was wired using a Whisper wire. Subsequently I predilated the lesion using 2.0 x 12 mm balloon, and after that I tried to advance a 2.25 x 28 mm Xience BOB, but the stent would not cross the lesion. So I had to pre-dilate using another 2.0, but this time by 20 mm balloon. After that I was able to cross the lesion with a stent and I advanced a 2.25 x 26 mm Xience BOB, where the stent was positioned under fluoroscopy guidance and deployed under its nominal pressure, which was 10 atmospheres, for 30 seconds. The following angiogram showed good angiographic results. CONCLUSION: 1. Intermediate lesion involving the proximal right coronary artery. It was non-ischemic by fractional flow reserve, which came in to be 0.82. 2. Successful stenting of the mid LAD using a 2.25 x 28 mm Xience BOB, with good angiographic results. POST-PROCEDURE MANAGEMENT: 1. Dual antiplatelet therapy. 2. Risk factor modification. 3. Followup with the patient.
[2016-07-01 05:42] LABS: Glucose,Whole Blood 365 mg/dL (75-99)
[2016-07-01] MEDS: INSULIN LISPRO (humaLOG) 300 UNIT/3 ML VIAL SQ SCH ×5 (06:13→17:12)
[2016-07-01] MEDS: PANTOPRAZOLE 40 MG TABLET PO SCH ×2 (06:14→17:12)
[2016-07-01 06:35] LABS: Non-African American GFR(MDRD) >60 (>60 ml/min/1.73 sqM)
[2016-07-01] MEDS: GABAPENTIN 300 MG CAP PO SCH ×2 (08:23→19:51)
[2016-07-01] MEDS: ASPIRIN 81 MG CHEW PO SCH (08:23)
[2016-07-01] MEDS: PRASUGREL 10 MG TAB PO SCH (08:23)
[2016-07-01] MEDS: LISINOPRIL 20 MG TAB PO SCH (08:24)
[2016-07-01] MEDS: INSULIN NPH/REG INSULIN 70/30 300 UNIT/3 ML VIAL SQ SCH (08:24)
[2016-07-01 10:01] LABS: Glucose,Whole Blood 308 mg/dL (75-99)
[2016-07-01 11:33] LABS: Glucose,Whole Blood 282 mg/dL (75-99)
--- NOTE | 2016-07-01 14:11 | PN ---
DATE OF SERVICE: 06/30/2016 INTERVAL HISTORY: Ms. Caldwell is a 55-year-old female with known history of hypertension, hyperlipidemia and uncontrolled diabetes mellitus, admitted to the hospital with chest discomfort and admitted short of breath. Patient initially underwent cardiac catheterization with stenting of circumflex and today patient underwent cardiac catheterization with successful stenting of the LAD. Patient is pain-free now. Blood sugars are fairly controlled. Patient is currently controlled with insulin 70/30 now along with insulin sliding scale. Otherwise patient denied any new complaints. No nausea, vomiting, abdominal pain. Complete review of systems, negative except as above. Current medications reviews. PHYSICAL EXAMINATION: A 55-year-old female lying in the bed comfortably, awake, alert, oriented x3, appears to be in no apparent distress. VITALS: Blood pressure is 115/69, pulse is 76, respirations 18, temperature afebrile, pulse ox 97% on room air. HEENT: Atraumatic, normocephalic. Neck is supple, no JVD. CVS EXAM: S1, S2 heard. No murmurs, no gallop, no rub. LUNGS: Bilateral air entry is present. No edema or crackles. No lymphadenopathy. Abdomen is soft, nontender. Bowel sounds present. DIMENSION QUARRY SUPERVISOR: Awake, alert and oriented x3. No focal deficit. EXTREMITIES: No edema. Pulses palpable bilaterally. No clubbing or cyanosis. PSYCHIATRIC: Cooperative. LABORATORY DATA: Reviewed. IMPRESSION: 1. Coronary artery disease, status post stent placement to circumflex artery initially and stenting of mid-left anterior descending artery today. 2. Unstable angina with coronary artery disease. 3. Left anterior descending artery in the circumflex artery. 4. Hypertriglyceridemia. 5. Diabetic neuropathy. 6. Uncontrolled diabetes mellitus, HbA1c of 9.4. 7. Ongoing tobacco use. 8. Hypertension. 9. Anxiety. 10. Hyperlipidemia. 11. Deep venous thrombosis prophylaxis. DISCUSSION AND PLAN: Patient will be continued on aspirin and prasugrel. Continue with the beta blockers and current management. Cardiology is on board. Patient was started on insulin drip last night and has been transferred insulin 70/30. Will change sliding scale to high-dose sliding scale and follow up closely. Further recommendations based on the clinical course.
[2016-07-01 17:05] LABS: Glucose,Whole Blood 273 mg/dL (75-99)
[2016-07-01] MEDS: ATORVASTATIN 80 MG TAB PO SCH (19:50)
[2016-07-01] MEDS: DULoxetine HCL 60 MG CAPSULE.DR PO SCH (19:50)
[2016-07-01] MEDS ORDERED: ONDANSETRON 4 MG/2 ML VIAL IVP PRN (20:44)
[2016-07-01] MEDS ORDERED: ONDANSETRON 4 MG/2 ML VIAL ONE ×2 (20:51→21:00)
[2016-07-01] MEDS ORDERED: HYDROcodone/APAP 5-325MG 1 EACH TAB ONE (21:00)
[2016-07-01] MEDS ORDERED: ZOLPIDEM 5 MG TAB ONE (21:00)
[2016-07-01] MEDS ORDERED: ALPRAZolam 0.5 MG TAB ONE (21:00)
[2016-07-01 23:05] LABS: Glucose,Whole Blood 277 mg/dL (75-99)
[2016-07-02 05:54] LABS: Glucose,Whole Blood 301 mg/dL (75-99)
[2016-07-02] MEDS: INSULIN LISPRO (humaLOG) 300 UNIT/3 ML VIAL SQ SCH ×5 (06:04→12:10)
[2016-07-02] MEDS: INSULIN NPH/REG INSULIN 70/30 300 UNIT/3 ML VIAL SQ SCH ×2 (06:04→08:18)
[2016-07-02] MEDS: PANTOPRAZOLE 40 MG TABLET PO SCH (07:10)
[2016-07-02 08:17] VITALS: RESP 16; TEMP 96
[2016-07-02] MEDS: ASPIRIN 81 MG CHEW PO SCH (08:18)
[2016-07-02] MEDS: PRASUGREL 10 MG TAB PO SCH (08:18)
[2016-07-02] MEDS: GABAPENTIN 300 MG CAP PO SCH (08:18)
[2016-07-02] MEDS: LISINOPRIL 20 MG TAB PO SCH (08:18)
--- NOTE | 2016-07-02 09:28 | PN ---
Ms. Caldwell is a 55-year-old female with history of hypertension, hyperlipidemia, and also uncontrolled diabetes mellitus. Patient had a cardiac catheterization and stenting of the LAD initially and repeat stenting of the circumflex yesterday. The patient seems to be doing well. Her puncture site in the right wrist seems to be healing well without any significant hematoma. Radial pulses are intact. She seems to be slightly nauseated and sweaty. Does not complain of any chest pain or shortness of breath. Physical examination reveals a 55-year-old female who is alert, does not appear to be in acute distress. Vital signs are stable with blood pressure about 120/70, pulse rate about 76. Lungs are clear. Heart is regular. Extremities, no significant edema. Lab values showed a creatinine of 0.53 with a GFR of 60. FINAL IMPRESSION: 1. Status post stent placement to the left anterior descending and also circumflex coronary artery. 2. Diabetes. 3. Hypertension. 4. Dyslipidemia. PLAN: Increase activity. If patient remains stable possible discharge home tomorrow.
[2016-07-02] MEDS ORDERED: INSULIN NPH/REG INSULIN 70/30 300 UNIT/3 ML VIAL SQ ONE (10:06)
[2016-07-02] MEDS ORDERED: metFORMIN 500 MG TAB PO SCH (10:15)
[2016-07-02 11:21] VITALS: BP 109/67; PULSE 81
[2016-07-02 11:38] LABS: Glucose,Whole Blood 293 mg/dL (75-99)
[2016-07-02] MEDS ORDERED: METOPROLOL TARTRATE 12.5 MG TAB PO SCH (12:00)
--- NOTE | 2016-07-03 10:50 | PN ---
This is a patient with history of diabetes, hypertension, dyslipidemia, and also smoking history, who came in with complaints of chest pain and EKG changes. Patient had a cardiac catheterization. Patient had a stent placement of the circumflex followed by stent placement of the RCA. Patient has remained stable. Her puncture site in the right radial artery seemed to be healing well. She denies any chest pain, shortness of breath, dizziness, or syncope. Physical examination reveals a 55-year-old female who is alert, oriented, does not appear to be in acute distress. Blood pressure 115/78, pulse is 90, respirations 16, afebrile. Neck is supple. No JVD. HEART: S1 and S2 heard. Lungs appear to be clear. Abdomen is soft. Lab values showed blood sugars, which have been fluctuating. The last CBC from 06/29 showed a normal hemoglobin and electrolytes are normal. Her current medications include aspirin, Lipitor, Neurontin, insulin, Zestril, metformin, Lopressor, Nitrostat as needed. She is also on Effient. Patient is being discharged home in stable condition. Follow up with Dr. Lock as an outpatient.
== END 2016-07-02 15:27 | disposition home or self-care (01) | DRG 247 ==
LOC: EC 08:23 → 3OBS 10:56 → OBSVTOIN 06-27 16:00 → 6SEL 06-28 12:33
PROVIDERS: ADMIT Internal Medicine; ATTEND Internal Medicine
PROC: B2111ZZ Fluoroscopy of Multiple Coronary Arteries using Low Osmolar Contrast (ICD-10-PCS; principal; 2016-06-28 11:15)
PROC: 4A023N7 Measurement of Cardiac Sampling and Pressure, Left Heart, Percutaneous Approach (ICD-10-PCS; principal; 2016-06-28 11:15)
PROC: 027034Z Dilation of Coronary Artery, One Artery with Drug-eluting Intraluminal Device, Percutaneous Approach (ICD-10-PCS; principal; 2016-06-28 11:15)
PROC: 027034Z Dilation of Coronary Artery, One Artery with Drug-eluting Intraluminal Device, Percutaneous Approach (ICD-10-PCS; 2016-06-30 10:30)
DX: I25.110 Atherosclerotic heart disease of native coronary artery with unstable angina pectoris (principal); E11.40 Type 2 diabetes mellitus with diabetic neuropathy, unspecified; E87.1 Hypo-osmolality and hyponatremia; E11.65 Type 2 diabetes mellitus with hyperglycemia; E78.1 Pure hyperglyceridemia; E78.5 Hyperlipidemia, unspecified; F17.200 Nicotine dependence, unspecified, uncomplicated; F41.9 Anxiety disorder, unspecified; G89.29 Other chronic pain; I10 Essential (primary) hypertension; K21.9 Gastro-esophageal reflux disease without esophagitis; K90.0 Celiac disease; M54.16 Radiculopathy, lumbar region; Z79.4 Long term (current) use of insulin; Z79.82 Long term (current) use of aspirin; Z79.899 Other long term (current) drug therapy; Z82.49 Family history of ischemic heart disease and other diseases of the circulatory system; Z87.11 Personal history of peptic ulcer disease; Z79.84 Long term (current) use of oral hypoglycemic drugs
CPT/HCPCS: 36415; 71020; 72100; 80048; 80053; 80061; 82550; 82553; 82565; 83036; 83735; 84484; 85025; 85610; 85730; 93005; 93454; 93458; 93571; 94760; 96361; 96365; 96366; 96367; 96368; 96376; 99285

== ENCOUNTER → 2016-08-30 | Outpatient (CLI) | payer MEDICARE ==
[2016-08-30 09:43] LABS: CH 31.5; HCT 47.7 % (34.0-46.0); HDW 3.56; HGB 16.6 gm/dL (11.4-16.0); MCH 30.8 pg (25.0-35.0); MCHC 34.9 g/dL (31.0-37.0); MCV 88.1 fL (80.0-100.0); Mean Platelet Volume 7.5; Poikilocytosis Slight; RBC 5.41 m/uL (3.80-5.40); RDW 14.5 % (11.5-15.5); WBC 9.8 k/uL (3.8-10.6)
[2016-08-30 10:00] LABS: Anion Gap 15 mmol/L; Blood Urea Nitrogen 15 mg/dL (7-17); Carbon Dioxide 27 mmol/L (22-30); Chloride 94 mmol/L (98-107); Non-African American GFR(MDRD) >60 (>60 ml/min/1.73 sqM); Potassium 4.7 mmol/L (3.5-5.1); Sodium 136 mmol/L (137-145)
== END | disposition home or self-care (01) ==
LOC: LABWHC1 09:23
PROVIDERS: ATTEND Internal Medicine Interventional Cardiology
DX: I25.10 Atherosclerotic heart disease of native coronary artery without angina pectoris (principal); Z01.812 Encounter for preprocedural laboratory examination
CPT/HCPCS: 36415; 80051; 82565; 84520; 85027

== ENCOUNTER 2016-09-04 06:24 | Day surgery (SDC) | payer MEDICARE ==
[2016-09-01 08:48] VITALS: BMI 24.5
[~2016-09-04 06:24] MED LIST: ALPRAZolam 0.25 MG TAB PO PRN; ASPIRIN 325 MG TAB PO STA; ATORVASTATIN 80 MG TAB PO STA; NITROGLYCERIN SL TABS 0.4 MG TAB SUBLINGUAL PRN; SODIUM CHLORIDE 0.9% 1,000 ML in EMPTY BAG 1 BAG IV ONE
[2016-09-04 07:08] LABS: Glucose,Whole Blood 379 mg/dL (75-99)
[2016-09-04] MEDS ORDERED: LIDOCAINE 2% INJ 20 MG/ML (20 ML MDV) ONE (07:09)
[2016-09-04] MEDS ORDERED: MIDAZOLAM 2 MG/2 ML VIAL ONE ×2 (07:09→08:10)
[2016-09-04] MEDS ORDERED: VERAPAMIL 2.5 MG/ML 2 ML AMP ONE (07:47)
[2016-09-04] MEDS ORDERED: SODIUM CHLORIDE 0.9% 1,000 ML IV ONE (07:50)
[2016-09-04] MEDS ORDERED: MIDAZOLAM 2 MG/2 ML VIAL IVP ONE ×3 (07:51→08:12)
[2016-09-04] MEDS ORDERED: LIDOCAINE 2% INJ 20 MG/ML SQ ONE (07:55)
[2016-09-04] MEDS ORDERED: BIVALIRUDIN BOLUS 250 MG/50 ML IV ONE (07:59)
[2016-09-04] MEDS ORDERED: BIVALIRUDIN 250 MG in SODIUM CHLORIDE 0.9% 50 ML IV ONE (08:00)
[2016-09-04] MEDS: NITROGLYCERIN 1000MCG/10ML SYRINGE INTRACORON ONE ×5 (08:02→08:28)
[2016-09-04] MEDS: niCARdipine Syringe (1,000 mcg/10 mL) INTRACORON ONE ×3 (08:25→08:27)
[2016-09-04] MEDS ORDERED: HYDROmorphone 2 MG/ML 1 ML SYRINGE ONE (08:25)
[2016-09-04] MEDS ORDERED: HYDROmorphone 2 MG/ML 1 ML SYRINGE IVP ONE (08:25)
[2016-09-04] MEDS ORDERED: IOHEXOL 300 MG/ML 100 ML BOTTLE IV ONE (08:35)
[2016-09-04] MEDS ORDERED: MELATONIN 3 MG TABLET PO PRN (08:38)
[2016-09-04] MEDS ORDERED: NITROGLYCERIN SL TABS 0.4 MG TAB SUBLINGUAL PRN ×2 (08:38→08:39)
[2016-09-04] MEDS ORDERED: RX INFO: IV CONTRAST WAS GIVEN 1 EACH MISC MISCELLANE PRN (08:39)
[2016-09-04] MEDS ORDERED: MAG HYDROX/AL HYDROX/SIMETH 30 ML CUP PO PRN (08:39)
[2016-09-04] MEDS ORDERED: ZOLPIDEM 5 MG TAB PO PRN (08:39)
[2016-09-04] MEDS ORDERED: ATROPINE SULFATE 0.1 MG/ML 10ML SYRINGE IV PRN (08:39)
[2016-09-04] MEDS ORDERED: SODIUM CHLORIDE 0.9% 1,000 ML IV SCH (08:45)
[2016-09-04] MEDS: HYDROcodone/APAP 5-325MG 1 EACH TAB PO PRN ×2 (09:43→21:28)
[2016-09-04] MEDS: PRASUGREL 10 MG TAB PO SCH (09:51)
--- NOTE | 2016-09-04 11:13 | PCN ---
DATE OF SERVICE: September 04, 2016 PERFORMING PHYSICIAN: Vipul Lock MD, Medical Service Representative PROCEDURE PERFORMED: 1. Selective right and left coronary angiogram. 2. Successful stenting of the proximal RCA using 3.0 x 15 mm Xience BOB with angiographic good results. INDICATION: This is a pleasant 55-year-old female patient who is known to have coronary artery disease and known to have stenting of the LAD and left circumflex intermediate lesion involving the RCA. She underwent FFR of the RCA a few months ago and that showed that it came in to be 0.82, but the patient continues to have ongoing chest discomfort in spite of maximized medical treatment. APPROACH: Right common femoral artery. COMPLICATION: Incidental injection of air bubble which was resolved after increasing the oxygen through the nasal cannula and using oxygen mask. LEVEL OF SEDATION: Moderate. SEDATION LENGTH: 42 minutes. PROCEDURE DESCRIPTION: After obtaining an informed consent the patient was brought to the Cardiac Hide House Supervisor. The right common femoral artery was cannulated using micropuncture technique. The micropuncture wire was passed easily and then I placed 6 Yi sheath in the right common femoral artery. Subsequently I did selective right and left coronary angiogram using JR4 guiding catheter and JL4 diagnostic catheter. After that I did intervene on the RCA. Please see a separate paragraph for that. SELECTIVE CORONARY ANGIOGRAM: 1. Right coronary artery is a large caliber vessel. It is a dominant vessel. The proximal RCA has eccentric lesion and seems to be in the range of 70%. The mid-RCA appeared to have mild disease only and RCA distally appeared to have mild disease only. 2. Left main is a large caliber vessel. It is angiographically normal and bifurcates into the left circumflex and left anterior descending artery. 3. The left circumflex is a large caliber vessel and it is a nondominant vessel. The proximal left circumflex appeared to be angiographically normal and gives rise into first OM branch which is intermediate caliber vessel and seems to be angiographically normal. The mid-circumflex is stented and the stent is patent. The left circumflex distally appears to be angiographically normal. 4. The left anterior descending artery: The proximal LAD appeared to have mild disease only. The mid-LAD is stented and the stent is patent. The LAD distally is angiographically normal. PCI OF THE RCA: Anticoagulation initiated using Angiomax. Subsequently I took Whisper wire and RCA was wired. Subsequently, I did PTCA ballooning using 2.5 x 8 mm balloon and subsequently I deployed 3.0 x 15 mm Xience BOB where the stent was positioned under fluoroscopy guidance and deployed under 18 atmospheres for 30 seconds. The following angiogram showed good angiographic results without perforation and without dissection. The procedure was completed without any complications. CONCLUSION: 1. Patent stent in the left circumflex and LAD. 2. Successful stenting of the proximal RCA using 3.0 x 15 mm Xience BOB with good angiographic results. POSTPROCEDURE MANAGEMENT: 1. Dual platelet therapy. 2. Risk factor modifications. 3. Follow up with the patient. [facility]
[2016-09-04] MEDS: METOPROLOL TARTRATE 12.5 MG TAB PO SCH ×2 (12:05→21:30)
[2016-09-04] MEDS: GABAPENTIN 300 MG CAP PO SCH (12:06)
[2016-09-04] MEDS: ALPRAZolam 0.5 MG TAB PO PRN (12:11)
[2016-09-04] MEDS: PANTOPRAZOLE 40 MG TABLET PO SCH (16:22)
[2016-09-04] MEDS ORDERED: ATORVASTATIN 80 MG TAB PO SCH (21:00)
[2016-09-04] MEDS ORDERED: DULoxetine HCL 60 MG CAPSULE.DR PO SCH (21:00)
[2016-09-04] MEDS ORDERED: GABAPENTIN 300 MG CAP PO SCH (21:00)
[2016-09-04] MEDS ORDERED: LISINOPRIL 20 MG TAB PO SCH (21:00)
[2016-09-04 21:53] LABS: Glucose,Whole Blood 416 mg/dL (75-99)
[2016-09-04 21:55] LABS: Glucose,Whole Blood 429 mg/dL (75-99)
[2016-09-04] MEDS ORDERED: INSULIN GLARGINE 100 UNIT/ML 10 ML VIAL SQ SCH (22:15)
[2016-09-04] MEDS ORDERED: INSULIN NPH/REG INSULIN 70/30 300 UNIT/3 ML VIAL SQ SCH (22:30)
[2016-09-04] MEDS: INSULIN LISPRO (humaLOG) 300 UNIT/3 ML VIAL SQ SCH (22:34)
[2016-09-05] MEDS ORDERED: HYDROmorphone 1 MG/ML 1 ML SYRINGE IVP STA (00:55)
[2016-09-05] MEDS ORDERED: HYDROmorphone 1 MG/ML 1 ML SYRINGE IVP PRN (00:55)
[2016-09-05] MEDS: ALPRAZolam 0.5 MG TAB PO PRN (01:04)
[2016-09-05 01:37] LABS: Anion Gap 11 mmol/L; Blood Urea Nitrogen 14 mg/dL (7-17); Calcium 9.7 mg/dL (8.4-10.2); Carbon Dioxide 32 mmol/L (22-30); Chloride 94 mmol/L (98-107); Glucose 271 mg/dL (74-99); Magnesium 1.7 mg/dL (1.6-2.3); Non-African American GFR(MDRD) >60 (>60 ml/min/1.73 sqM); Potassium 3.8 mmol/L (3.5-5.1); Sodium 137 mmol/L (137-145)
[2016-09-05 03:07] VITALS: RESP 18
[2016-09-05 05:43] LABS: Glucose,Whole Blood 309 mg/dL (75-99)
[2016-09-05] MEDS: PANTOPRAZOLE 40 MG TABLET PO SCH (06:16)
[2016-09-05] MEDS: INSULIN LISPRO (humaLOG) 300 UNIT/3 ML VIAL SQ SCH (06:18)
[2016-09-05 07:05] LABS: Basophils # (A) 0.1 k/uL (0-0.2); Basophils % (A) 1 %; CH 31.7; CHCM 35.7; Eosinophils # (A) 0.3 k/uL (0-0.7); Eosinophils % (A) 3 %; HDW 3.47; HGB 14.9 gm/dL (11.4-16.0); Luc # (Auto) 0.15; Luc % (Auto) 2; Lymphocytes # (A) 3.2 k/uL (1.0-4.8); Lymphocytes % (A) 35 %; MCH 31.1 pg (25.0-35.0); MCHC 34.8 g/dL (31.0-37.0); MCV 89.5 fL (80.0-100.0); Mean Platelet Volume 7.8; Monocytes # (A) 0.4 k/uL (0-1.0); Monocytes % (A) 5 %; Neutrophils # (A) 4.9 k/uL (1.3-7.7); Neutrophils % (A) 55 %; Poikilocytosis Slight; RDW 14.5 % (11.5-15.5); WBC (Perox) 8.67
[2016-09-05 07:19] LABS: Anion Gap 9 mmol/L; Blood Urea Nitrogen 11 mg/dL (7-17); Calcium 8.7 mg/dL (8.4-10.2); Carbon Dioxide 26 mmol/L (22-30); Chloride 100 mmol/L (98-107); Glucose 280 mg/dL (74-99); Non-African American GFR(MDRD) >60 (>60 ml/min/1.73 sqM); Potassium 3.7 mmol/L (3.5-5.1); Sodium 135 mmol/L (137-145)
[2016-09-05] MEDS: GABAPENTIN 300 MG CAP PO SCH (07:41)
[2016-09-05] MEDS: PRASUGREL 10 MG TAB PO SCH (07:41)
[2016-09-05] MEDS ORDERED: INSULIN NPH/REG INSULIN 70/30 300 UNIT/3 ML VIAL SQ SCH ×2 (09:00→21:00)
[2016-09-05] MEDS ORDERED: ASPIRIN 81 MG CHEW PO SCH (09:00)
[2016-09-05 09:40] VITALS: BP 95/65; PULSE 55; TEMP 98.2
[2016-09-05 14:09] LABS: Hemoglobin A1C 9.1 % (4.2-6.1)
--- NOTE | 2016-09-08 15:34 | DS ---
DATE OF ADMISSION: 09/04/2016 DATE OF DISCHARGE: 09/05/2016 BRIEF HISTORY: This is a pleasant 55-year-old female patient who is known to have CAD and stenting of the LAD and left circumflex as well as disease involving the right coronary artery. She was brought to the hospital yesterday and underwent successful stenting of the RCA with good angiographic results and without any complication. The patient is going to be discharged home today on dual antiplatelet therapy, and I will follow up with the patient. SARAH
== END 2016-09-05 10:59 | disposition home or self-care (01) ==
LOC: CATHCVL 06:24 → 6SEL 08:34 → CATHCVL 09-05 10:59
PROVIDERS: ATTEND Internal Medicine Interventional Cardiology
DX: I25.110 Atherosclerotic heart disease of native coronary artery with unstable angina pectoris (principal); I10 Essential (primary) hypertension; F17.210 Nicotine dependence, cigarettes, uncomplicated; E78.5 Hyperlipidemia, unspecified; E11.9 Type 2 diabetes mellitus without complications; Z79.84 Long term (current) use of oral hypoglycemic drugs; Z79.82 Long term (current) use of aspirin; Z79.899 Other long term (current) drug therapy
CPT/HCPCS: 99152; 99153 ×2; 94760; 93454; 80048; 83036; 83735; 85025; C9600; C1769 ×4; C1887; C1725; C1894; C1874; C1760; J2001; J2250; J1170 ×2; Q9967; J0583

== ENCOUNTER → 2017-03-09 | Outpatient (CLI) | payer MEDICARE ==
[2017-03-09 15:45] LABS: HCT 48.6 % (34.0-46.0); HGB 16.4 gm/dL (11.4-16.0); MCH 29.8 pg (25.0-35.0); MCHC 33.7 g/dL (31.0-37.0); MCV 88.6 fL (80.0-100.0); Mean Platelet Volume 8.2; Platelet Count 189 k/uL (150-450); RBC 5.49 m/uL (3.80-5.40); RDW 15.6 % (11.5-15.5)
[2017-03-09 15:56] LABS: Anion Gap 13 mmol/L; Blood Urea Nitrogen 11 mg/dL (7-17); Carbon Dioxide 27 mmol/L (22-30); Chloride 100 mmol/L (98-107); Potassium 4.2 mmol/L (3.5-5.1); Sodium 140 mmol/L (137-145)
== END | disposition home or self-care (01) ==
LOC: LABPAT 15:33
PROVIDERS: ATTEND Internal Medicine Interventional Cardiology
DX: Z01.812 Encounter for preprocedural laboratory examination (principal); I25.10 Atherosclerotic heart disease of native coronary artery without angina pectoris
CPT/HCPCS: 80051; 82565; 84520; 85027

== ENCOUNTER 2017-03-19 10:53 | Day surgery (SDC) | payer MEDICARE ==
[2017-03-15 15:03] VITALS: BMI 23.4
[~2017-03-19 10:53] MED LIST changes: +ALPRAZolam 0.5 MG TAB PO PRN
[2017-03-19] MEDS ORDERED: LIDOCAINE 2% INJ 20 MG/ML (20 ML MDV) ONE (11:09)
[2017-03-19] MEDS: INSULIN ASPART 100 UNIT/ML 1 ML 10 ML VIAL SQ SCH ×3 (11:19→17:59)
[2017-03-19 11:35] LABS: Glucose,Whole Blood 383 mg/dL (75-99)
[2017-03-19] MEDS ORDERED: MIDAZOLAM 2 MG/2 ML VIAL ONE (11:36)
[2017-03-19] MEDS ORDERED: diphenhydrAMINE 50 MG/ML 1 ML VIAL ONE (11:36)
[2017-03-19] MEDS ORDERED: diphenhydrAMINE 50 MG/ML 1 ML VIAL IVP ONE (11:55)
[2017-03-19] MEDS ORDERED: MIDAZOLAM 2 MG/2 ML VIAL IVP ONE (11:55)
[2017-03-19] MEDS ORDERED: LIDOCAINE 2% INJ 20 MG/ML SQ ONE (12:00)
[2017-03-19] MEDS ORDERED: IOHEXOL 350 MG/ML 125ML BOTTLE INJ ONE (12:16)
[2017-03-19] MEDS ORDERED: RX INFO: IV CONTRAST WAS GIVEN 1 EACH MISC MISCELLANE PRN (12:23)
[2017-03-19] MEDS ORDERED: SODIUM CHLORIDE 0.9% 1,000 ML IV SCH (12:30)
[2017-03-19] MEDS ORDERED: ONDANSETRON 4 MG/2 ML VIAL ONE (12:36)
[2017-03-19 12:46] LABS: Glucose,Whole Blood 325 mg/dL (75-99)
[2017-03-19] MEDS ORDERED: ONDANSETRON 4 MG/2 ML VIAL IVP PRN (12:55)
[2017-03-19 12:58] VITALS: RESP 18
--- NOTE | 2017-03-19 14:34 | CC ---
CARDIAC CATHETERIZATION REPORT DATE OF SERVICE: 03/19/2017 PERFORMING PHYSICIAN: Vipul Lock MD, Concrete Conveyor Operator. PROCEDURE PERFORMED: 1. Selective right and left coronary angiogram. 2. Left heart catheterization. INDICATION: This is a pleasant 56-year-old female patient who is known to have coronary artery disease where she underwent in the past, stenting of the RCA and LAD, was experiencing intermittent episodes of chest discomfort concerning for angina. Unfortunately, she continues to smoke. In view of that, heart catheterization was recommended. APPROACH: Right common femoral artery. COMPLICATION: None. LEVEL OF SEDATION: Moderate with sedation length of 17 minutes. PROCEDURE DESCRIPTION: After obtaining an informed consent, the patient was brought to the Cardiac Lug Breaker And Wire Puller. The right common femoral artery was cannulated using micropuncture technique, the micropuncture wire passed easily. Then I placed a 6-Grenadian sheath in the right common femoral artery. After that, I did selective right and left coronary angiogram using JR4 and JL4 catheters. After that, I did left heart catheterization using 6-Grenadian pigtail catheter. The procedure was completed without any complication. SELECTIVE CORONARY ANGIOGRAM: 1. The right coronary artery is a large caliber vessel and it is a dominant vessel. The proximal RCA is stented and the stent is patent. The mid RCA is angiographically normal. The RCA distally has a hazy lesion, appeared to be in the range of 40% to 50% only. The RCA distally bifurcates into PDA and PLV branches, both are angiographically normal. 2. The left main is angiographically normal. It bifurcates into the left circumflex and left anterior descending artery. 3. The left circumflex is a large caliber vessel. It is a nondominant vessel. The proximal left circumflex appeared to be angiographically normal and gives rise into the first and second obtuse marginal branches. They are angiographically normal. The mid left circumflex is stented and the stent is patent. The left circumflex distally is angiographically normal. 4. The LAD, the proximal LAD is angiographically normal. The mid LAD is stented and the stent is patent. The LAD distally is angiographically normal. The LAD gives rise into multiple small diagonal branches. HEMODYNAMICS: The left ventricular end-diastolic pressure was 8 mmHg and no gradient was identified across the aortic valve. CONCLUSION: 1. Patent stent in the proximal right coronary artery with intermediate lesion in the distal right coronary artery, appeared to be hazy and in the range of 50%. 2. Patent stent in the mid left circumflex. 3. Patent stent in the mid left anterior descending artery. POSTPROCEDURE MANAGEMENT: 1. Maximize medical treatment. 2. Consider oral nitrate. 3. Follow up with the patient. BOO / VLAD: [id number] /
--- NOTE | 2017-03-19 14:34 | LTR ---
DATE OF SERVICE: March 19, 2017 RE: Mary Jo Caldwell Dear Kiran; Ms. Mary Jo Caldwell was experiencing intermittent episodes of chest discomfort concerning for angina. She underwent a stress test and that revealed ischemia. In view of that, a heart catheterization was recommended. Mary Jo underwent a heart catheterization and that revealed patent stents in the right coronary artery, left circumflex, and LAD. Maximized medical treatment is recommended at this point and I will consider starting her on oral nitrate. I want to thank you for allowing me to participate in her care. Please do not hesitate to call if you have any question or concern. Sincerely, MD BOO Garcia / RODOLFON: [id number] /
[2017-03-19] MEDS: HYDROcodone/APAP 5-325MG 1 EACH TAB PO PRN ×2 (15:22→20:28)
[2017-03-19 17:14] LABS: Glucose,Whole Blood 327 mg/dL (75-99)
[2017-03-19] MEDS ORDERED: HYDROmorphone 2 MG/ML 1 ML SYRINGE IVP PRN (17:45)
[2017-03-19 19:44] VITALS: BP 113/73; PULSE 73; TEMP 98
[2017-03-19 20:05] LABS: Glucose,Whole Blood 423 mg/dL (75-99)
== END 2017-03-19 21:15 | disposition home or self-care (01) ==
LOC: CATHCVL 10:53 → 3OBS 12:19 → CATHCVL 21:15
PROVIDERS: ATTEND Internal Medicine Interventional Cardiology
DX: I25.110 Atherosclerotic heart disease of native coronary artery with unstable angina pectoris (principal); F17.210 Nicotine dependence, cigarettes, uncomplicated; I10 Essential (primary) hypertension; E78.5 Hyperlipidemia, unspecified; E78.00 Pure hypercholesterolemia, unspecified; Z95.5 Presence of coronary angioplasty implant and graft; Z79.899 Other long term (current) drug therapy; Z79.82 Long term (current) use of aspirin; Z79.4 Long term (current) use of insulin
CPT/HCPCS: 93458; 81025; C1894; C1769 ×2; J2001; J2250; J1170; J1200; J2405; Q9967

== ENCOUNTER 2017-05-15 14:56 | Observation (INO) | payer MEDICARE ==
[2017-05-15] MEDS ORDERED: MORPHINE SULFATE/PF 10MG/10ML VL IVP STA ×3 (16:53→19:32)
[2017-05-15] MEDS ORDERED: MORPHINE SULFATE/PF 10MG/10ML VL ONE (16:59)
[2017-05-15] MEDS ORDERED: RX INFO: IV CONTRAST WAS GIVEN 1 EACH MISC MISCELLANE PRN (17:03)
[2017-05-15 17:04] LABS: Basophils # (A) 0.1 k/uL (0-0.2); Basophils % (A) 1 %; Eosinophils # (A) 0.1 k/uL (0-0.7); Eosinophils % (A) 1 %; HCT 43.9 % (34.0-46.0); HGB 16.2 gm/dL (11.4-16.0); Lymphocytes # (A) 1.6 k/uL (1.0-4.8); Lymphocytes % (A) 19 %; MCH 30.9 pg (25.0-35.0); MCHC 36.9 g/dL (31.0-37.0); MCV 83.5 fL (80.0-100.0); Mean Platelet Volume 7.9; Monocytes # (A) 0.3 k/uL (0-1.0); Monocytes % (A) 3 %; Neutrophils # (A) 6.4 k/uL (1.3-7.7); Neutrophils % (A) 76 %; Platelet Count 186 k/uL (150-450); RBC 5.25 m/uL (3.80-5.40); RDW 13.2 % (11.5-15.5); WBC 8.4 k/uL (3.8-10.6)
[2017-05-15 17:10] LABS: ALT 28 U/L (9-52); AST 23 U/L (14-36); Albumin 3.9 g/dL (3.5-5.0); Alkaline Phosphatase 84 U/L (38-126); Anion Gap 16 mmol/L; Blood Urea Nitrogen 15 mg/dL (7-17); Calcium 9.2 mg/dL (8.4-10.2); Carbon Dioxide 19 mmol/L (22-30); Chloride 100 mmol/L (98-107); Glucose 407 mg/dL (74-99); Magnesium 1.7 mg/dL (1.6-2.3); Sodium 135 mmol/L (137-145); Total Bilirubin 0.8 mg/dL (0.2-1.3)
[2017-05-15 17:11] LABS: Potassium 4.6 mmol/L (3.5-5.1)
[2017-05-15 17:33] LABS: Creatine Kinase MB 0.9 ng/mL (0.0-2.4); Troponin I 0.026 ng/mL (0.000-0.034)
[2017-05-15 17:37] LABS: INR 1.1 (<1.2); Partial Thromboplastin Time 24.1 sec (22.0-30.0); Prothrombin Time 10.4 sec (9.0-12.0)
--- NOTE | 2017-05-15 17:50 | CT ---
EXAMINATION TYPE: CT abdomen pelvis w con DATE OF EXAM: 05/15/2017 COMPARISON: 07/18/2014 HISTORY: Abd pain and nausea. CT DLP: 1407 mGycm Automated exposure control for dose reduction was used. TECHNIQUE: Helical acquisition of images was performed from the lung bases through the pelvis. CONTRAST: Performed without Oral Contrast and with IV Contrast, patient injected with 100ml mL of Isovue M300. FINDINGS: Lung bases are clear. There is no pleural effusion. There is no pericardial effusion. Liver and spleen appear normal. Bile ducts are not dilated. Pancreas appears normal. There are clips from cholecystectomy. There is no adrenal mass. Kidneys show satisfactory contrast opacification. There is no hydronephrosi s. There is no retroperitoneal adenopathy. Abdominal aorta is atheromatous. There is metal artifact f rom extensive multilevel posterior lumbar fusion surgery. I see no intestinal wall thickening. There are no dilated loops. Bladder distends smoothly. There is no sign of a pelvic mass. Appendix appears normal. The lumbar vertebra have fairly normal alignment. There is no compression fracture. There is degenera tive disc space narrowing in the lumbar spine. I see no focal bone destruction. IMPRESSION: MULTILEVEL LUMBAR FUSION SURGERY. NO SIGN OF AN ACUTE ABDOMEN AND PELVIS. NO ADVERSE CHANGE COMPARED TO OLD EXAM. NORMAL APPENDIX.
--- NOTE | 2017-05-15 18:44 | XR ---
EXAMINATION TYPE: XR chest 2V DATE OF EXAM: 05/15/2017 COMPARISON: 06/26/2016 HISTORY: Chest pain TECHNIQUE: Frontal and lateral views of the chest are obtained. FINDINGS: Heart and mediastinum are normal. Lungs are clear. Diaphragm is normal. Bony thorax is int act. There is neurostimulator in the thoracic spine. IMPRESSION: No active cardiopulmonary disease. No change. Right nipple shadow noted.
[2017-05-15] MEDS ORDERED: INSULIN REGULAR 100 UNIT/ML VIAL SQ STA (19:48)
[2017-05-15 20:01] LABS: Glucose,Whole Blood 301 mg/dL (75-99)
[2017-05-15 20:30] LABS: Appearance,Urine Cloudy (Clear); Bacteria,Urine Few /hpf; Bilirubin,Urine Negative (Negative); Blood,Urine Negative (Negative); Budding Yeast,Urine Rare /hpf; Color,Urine Light Yellow; Glucose,Urine (UA) 4+ (Negative); Ketones,Urine 1+ (Negative); Leukocyte Esterase,Urine Negative (Negative); Mucus,Urine Rare /hpf; Nitrite,Urine Negative (Negative); PH, Urine 5.5 (5.0-8.0); Protein,Urine Negative (Negative); RBC,Urine 2 /hpf (0-5); Specific Gravity,Urine 1.035 (1.001-1.035); Squamous Epithelial Cell,Urine 18 /hpf (0-4); Urobilinogen,Urine <2.0 mg/dL (<2.0); WBC,Urine 9 /hpf (0-5)
[2017-05-15 21:06] LABS: Glucose,Whole Blood 286 mg/dL (75-99)
--- NOTE | 2017-05-15 21:11 | ED ---
Chest Pain HPI - General Chief Complaint: Chest Pain Stated Complaint: chest pain/weakness Time Seen by Provider: 05/15/17 15:56 Source: patient Mode of arrival: wheelchair Limitations: no limitations - History of Present Illness Initial Comments: 57 years old female comes in with chest pain, she is also complaining about pain over the left flank area, pain goes across the belly then he goes into her chest she has a history of heart disease he had [address] also has a history of for apparent diabetes which is now controlled at all hyperlipidemia hypertension and uncontrolled diabetes. She denies any chest pain as such at this point no pleuritic pain, no pleuritic chest pain, no abdominal pain no frequency urgency dysuria no symptoms of TIA or CVA - Related Data Home Medications Medication Instructions Recorded Confirmed Gabapentin [Neurontin] 300 mg PO DAILY 03/18/14 05/15/17 Insulin Aspart [NovoLOG See Protocol SQ QID 03/18/14 05/15/17 (formulary)] Lisinopril [Prinivil] 20 mg PO HS 03/18/14 05/15/17 Atorvastatin [Lipitor] 80 mg PO HS 06/26/16 05/15/17 DULoxetine HCL [Cymbalta] 60 mg PO HS 06/26/16 05/15/17 HYDROcodone/APAP 5-325MG [[place] 1 tab PO Q6HR PRN 06/26/16 05/15/17 5-325] Insulin Glargine [Lantus] 30 unit SQ HS 09/01/16 05/15/17 Melatonin 3 mg PO HS PRN 09/01/16 05/15/17 Metoprolol Tartrate 12.5 mg PO BID 09/01/16 05/15/17 Fenofibrate 160 mg PO AC-BRKFST 03/15/17 05/15/17 Gabapentin [Neurontin] 900 mg PO HS 05/15/17 05/15/17 Omeprazole [PriLOSEC] 20 mg PO AC-BID PRN 05/15/17 05/15/17 metFORMIN HCL [Glucophage] 1,000 mg PO BID 05/15/17 05/15/17 Previous Rx's Medication Instructions Recorded Aspirin 81 mg PO DAILY #30 chew 07/02/16 Nitroglycerin Sl Tabs [Nitrostat] 0.4 mg SUBLINGUAL Q5M PRN #50 tab 07/02/16 Prasugrel [Effient] 10 mg PO DAILY #30 tab 07/02/16 Allergies Allergy/AdvReac Type Severity Reaction Status Date / Time gluten AdvReac Nausea & Verified 05/15/17 16:20 Vomiting & Diarrhea soy AdvReac Nausea & Verified 05/15/17 16:20 Vomiting & Diarrhea wheat AdvReac Nausea & Verified 05/15/17 16:20 Vomiting & Diarrhea Review of Systems ROS Statement: Those systems with pertinent positive or pertinent negative responses have been documented in the HPI. ROS Other: All systems not noted in ROS Statement are negative. EKG Findings - EKG Comments: EKG Findings:: EKG is sinus rhythm ventricular rate is 69 MI interval is 162 QRS duration is 84 QT/QTc is 438/469 review of this EKG does not reveal any ST elevation or ST depression noticed some mom PVCs and there Past Medical History Past Medical History: Diabetes Mellitus, GERD/Reflux, Hyperlipidemia, Hypertension Additional Past Medical History / Comment(s): IDDM type I, pancreatitis X2 ( Last was 05/02), celiac disease, feet neuropathy, chronic low back pain, UTIs, duodenitis/duodenal ulcer, hiatal hernia. History of Any Multi-Drug Resistant Organisms: None Reported Past Surgical History: Back Surgery, Cholecystectomy, Heart Catheterization With Stent, Orthopedic Surgery Additional Past Surgical History / Comment(s): Lumbar fusion, spinal cord stimulator, L knee arthroscopy, EGD, heart stent x3 Past Anesthesia/Blood Transfusion Reactions: No Reported Reaction Additional Past Anesthesia/Blood Transfusion Reaction / Comment(s): Never had blood transfusion Date of Last Stent Placement:: 06/2016 Past Psychological History: No Psychological Hx Reported Smoking Status: Current every day smoker Past Alcohol Use History: None Reported Past Drug Use History: None Reported - Past Family History Father Family Medical History: Liver Disease Additional Family Medical History / Comment(s): Idiopathic cirrhosis of liver Mother Family Medical History: Coronary Artery Disease (CAD) Additional Family Medical History / Comment(s): Multiple stents. Mother at the age of 77 or 78yrs from [place]. General Exam - General Exam Comments Initial Comments: General: The patient is awake and severe distress pain is 10 over 10 Skin: Skin is warm and dry and no rashes or lesions are noted. Eye: Pupils are equal, round and reactive to light, extra-ocular movements are intact; there is normal conjunctiva bilaterally. Ears, nose, mouth and throat: There are moist mucous membranes and no oral lesions. Neck: The neck is supple, there is no tenderness or JVD. Cardiovascular: There is a regular rate and rhythm. No murmur, rub or gallop is appreciated. Respiratory: To auscultation bilateral,, noticed some crackles at the bases Gastrointestinal: Soft, non-distended, non-tender abdomen without masses or organomegaly noted. There is no rebound or guarding present. Bowel sounds are unremarkable. Back: There is no tenderness to palpation in the midline. There is no obvious deformity. No obvious shingles noticed no obvious cellulitis noticed Musculoskeletal: Normal ROM, no tenderness, There is no pedal edema. There is no calf tenderness or swelling. No cords were appreciated. Neurological: CN II-XII intact, Cranial nerves III through XII are intact. There are no obvious motor or sensory deficits. Coordination appears grossly intact. Speech is normal. Psychiatric: Cooperative, appropriate mood & affect, normal judgment. Limitations: no limitations Course Vital Signs 05/15/17 05/15/17 05/15/17 15:01 17:30 18:25 Temperature 98.4 F Pulse Rate 70 84 Pulse Rate [ 70 [facility] ] Respiratory 18 96 H Rate Blood Pressure 121/70 130/78 O2 Sat by Pulse 97 98 Oximetry Patient is reassessed, sugar was quite high is greater than 400 and 1. CO2 was [address] of the abdomen and pelvis is unremarkable urinalysis is unremarkable chest x-ray was unremarkable as well considering her diabetes and [address] and reportedly lasted for at least 3 sets of cardiac markers cardiology consult Disposition Clinical Impression: Chest pain, Abdominal pain Disposition: ADMITTED IP TO THIS HOSP Condition: Good Referrals: Kiran Phelps DO [Primary Care Provider] - 1-2 days
[2017-05-15] MEDS ORDERED: NITROGLYCERIN SL TABS 0.4 MG TAB SUBLINGUAL PRN ×2 (21:16→21:21)
[2017-05-15] MEDS ORDERED: MELATONIN 3 MG TABLET PO PRN (21:21)
[2017-05-15] MEDS ORDERED: HYDROcodone/APAP 5-325MG 1 EACH TAB PO PRN (21:21)
[2017-05-15] MEDS ORDERED: PANTOPRAZOLE 40 MG TABLET PO PRN (21:21)
[2017-05-15 22:21] VITALS: BMI 24.1
[2017-05-15] MEDS: HYDROcodone/APAP 7.5-325MG 1 EACH TAB PO PRN (22:26)
[2017-05-15 22:51] LABS: Creatine Kinase 28 U/L (30-135)
[2017-05-15 23:05] LABS: Creatine Kinase MB 0.8 ng/mL (0.0-2.4); Troponin I <0.012 ng/mL (0.000-0.034)
[2017-05-15] MEDS: ONDANSETRON 4 MG/2 ML VIAL IVP PRN (23:23)
[2017-05-16] MEDS ORDERED: INSULIN DETEMIR 100 UNIT/ML 10 ML VIAL SQ ONE (00:30)
[2017-05-16] MEDS: MORPHINE SULFATE/PF 10MG/10ML VL IV PRN ×3 (02:08→22:22)
[2017-05-16 04:20] LABS: Cholesterol 263 mg/dL (<200); HDL Cholesterol 31 mg/dL (40-60)
[2017-05-16 04:33] LABS: Creatine Kinase 25 U/L (30-135)
[2017-05-16 04:45] LABS: Creatine Kinase MB 0.8 ng/mL (0.0-2.4); Troponin I <0.012 ng/mL (0.000-0.034)
[2017-05-16] MEDS: HYDROcodone/APAP 7.5-325MG 1 EACH TAB PO PRN ×3 (06:03→18:08)
[2017-05-16] MEDS: ONDANSETRON 4 MG/2 ML VIAL IVP PRN ×3 (06:51→22:48)
[2017-05-16 07:01] LABS: Glucose,Whole Blood 319 mg/dL (75-99)
[2017-05-16] MEDS ORDERED: metFORMIN 500 MG TAB PO SCH (07:30)
[2017-05-16] MEDS ORDERED: PNEUMOCOCCAL VACC-PNEUMOVAX 23 25 MCG/0.5 ML VIAL IM ONE (09:00)
[2017-05-16] MEDS ORDERED: INFLUENZA VACCINE (6 MOS+) 60 MCG/0.5 ML SYRINGE IM ONE (09:00)
[2017-05-16] MEDS: GABAPENTIN 300 MG CAP PO SCH (10:27)
[2017-05-16] MEDS: METOPROLOL TARTRATE 12.5 MG TAB PO SCH ×2 (10:27→21:19)
[2017-05-16] MEDS: ASPIRIN 325 MG TAB PO SCH (10:29)
[2017-05-16 10:57] LABS: Glucose,Whole Blood 267 mg/dL (75-99)
[2017-05-16] MEDS: PRASUGREL 10 MG TAB PO SCH (11:34)
[2017-05-16] MEDS: FENOFIBRATE 160 MG TAB PO SCH (11:34)
[2017-05-16 12:10] LABS: Glucose,Whole Blood 294 mg/dL (75-99)
[2017-05-16] MEDS: PANTOPRAZOLE 40 MG/10 ML VIAL IVP SCH ×2 (12:24→21:19)
[2017-05-16 12:57] LABS: Hemoglobin A1C 11.6 % (4.0-6.0)
--- NOTE | 2017-05-16 15:03 | P.HPIM ---
History of Present Illness 56-year-old pleasant female came in with compensative back pain and then chest pain believed to be acid reflux and took some medications for acid which didn't help her her pain has become severe because of which case she can. Patient denied any diaphoresis but was having some nausea denied any lightheadedness patient was evaluated cardiology rule out acute coronary syndromes and and cardiology doesn't believe patient has cardiac chest pain and the patient had peptic ulcer disease in the past and patient also has a chronic catheterization and stenting in the past. Patient is going for upper GI endoscopy patient is presently on Protonix patient denied any GI bleed hematemesis hematochezia. Patient's the pain started as a back pain and then the went up to the chest as mentioned above patient's EKGs and troponins are negative. Chest x-ray did not show any significant abnormality. Review of Systems REVIEW OF SYSTEMS: CONSTITUTIONAL: No fever, no malaise, no fatigue. HEENT: No recent visual problems or hearing problems. Denied any sore throat. CARDIOVASCULAR: Noorthopnea, PND, no palpitations, no syncope. PULMONARY: No shortness of breath, no cough, no hemoptysis. GASTROINTESTINAL: No diarrhea, no nausea, no vomiting, no abdominal pain. Normoactive bowel sounds. NEUROLOGICAL: No headaches, no weakness, no numbness. HEMATOLOGICAL: Denies any bleeding or petechiae. GENITOURINARY: Denies any burning micturition, frequency, or urgency. MUSCULOSKELETAL/RHEUMATOLOGICAL: Denies any joint pain, swelling, or any muscle pain. ENDOCRINE: Denies any polyuria or polydipsia. The rest of the 14-point review of systems is negative. Past Medical History Past Medical History: Diabetes Mellitus, GERD/Reflux, Hyperlipidemia, Hypertension Additional Past Medical History / Comment(s): IDDM type I, pancreatitis X2 ( Last was 05/02), celiac disease, feet neuropathy, chronic low back pain, UTIs, duodenitis/duodenal ulcer, hiatal hernia. History of Any Multi-Drug Resistant Organisms: None Reported Past Surgical History: Back Surgery, Cholecystectomy, Heart Catheterization With Stent, Orthopedic Surgery Additional Past Surgical History / Comment(s): Lumbar fusion, spinal cord stimulator, L knee arthroscopy, EGD, heart stent x3 Past Anesthesia/Blood Transfusion Reactions: No Reported Reaction Additional Past Anesthesia/Blood Transfusion Reaction / Comment(s): Never had blood transfusion Date of Last Stent Placement:: 02/2017 Past Psychological History: Anxiety Additional Psychological History / Comment(s): Pt resides with her spouse and their 16 yr old son. She is independent. Smoking Status: Current every day smoker Past Alcohol Use History: None Reported Additional Past Alcohol Use History / Comment(s): Pt is currently trying to quit smoking. She started smoking in 1989. Past Drug Use History: None Reported - Past Family History Father Family Medical History: Liver Disease Additional Family Medical History / Comment(s): Idiopathic cirrhosis of liver Mother Family Medical History: Coronary Artery Disease (CAD) Additional Family Medical History / Comment(s): Multiple stents. Mother at the age of 77 or 78yrs from [place]. Medications and Allergies Home Medications Medication Instructions Recorded Confirmed Type Gabapentin [Neurontin] 300 mg PO DAILY 03/18/14 05/15/17 History Insulin Aspart [NovoLOG See Protocol SQ QID 03/18/14 05/15/17 History (formulary)] Lisinopril [Prinivil] 20 mg PO HS 03/18/14 05/15/17 History Atorvastatin [Lipitor] 80 mg PO HS 06/26/16 05/15/17 History DULoxetine HCL [Cymbalta] 60 mg PO HS 06/26/16 05/15/17 History HYDROcodone/APAP 5-325MG [[place] 1 tab PO Q6HR PRN 06/26/16 05/15/17 History 5-325] Aspirin 81 mg PO DAILY #30 chew 07/02/16 05/15/17 Rx Nitroglycerin Sl Tabs [Nitrostat] 0.4 mg SUBLINGUAL Q5M PRN #50 tab 07/02/16 Rx Prasugrel [Effient] 10 mg PO DAILY #30 tab 07/02/16 05/15/17 Rx Insulin Glargine [Lantus] 30 unit SQ HS 09/01/16 05/15/17 History Melatonin 3 mg PO HS PRN 09/01/16 05/15/17 History Metoprolol Tartrate 12.5 mg PO BID 09/01/16 05/15/17 History Fenofibrate 160 mg PO AC-BRKFST 03/15/17 05/15/17 History Gabapentin [Neurontin] 900 mg PO HS 05/15/17 05/15/17 History Omeprazole [PriLOSEC] 20 mg PO AC-BID PRN 05/15/17 05/15/17 History metFORMIN HCL [Glucophage] 1,000 mg PO BID 05/15/17 05/15/17 History Allergies Allergy/AdvReac Type Severity Reaction Status Date / Time gluten AdvReac Nausea & Verified 05/15/17 16:20 Vomiting & Diarrhea soy AdvReac Nausea & Verified 05/15/17 16:20 Vomiting & Diarrhea wheat AdvReac Nausea & Verified 05/15/17 16:20 Vomiting & Diarrhea Physical Exam Vitals: Vital Signs Temp Pulse Pulse Pulse Resp BP BP 05/16/17 12:00 98.3 F 74 18 133/90 05/16/17 08:45 18 05/16/17 08:00 97.8 F 74 18 164/81 05/16/17 04:00 69 16 05/16/17 03:59 97.9 F 69 16 156/73 05/16/17 00:00 97.9 F 75 16 143/75 05/15/17 22:23 97.7 F 73 16 156/91 05/15/17 21:53 84 18 130/78 05/15/17 18:25 84 96 H 130/78 05/15/17 17:30 70 05/15/17 15:01 98.4 F 70 18 121/70 Pulse Ox 05/16/17 12:00 96 05/16/17 08:45 05/16/17 08:00 95 05/16/17 04:00 05/16/17 03:59 94 L 05/16/17 00:00 94 L 05/15/17 22:23 95 05/15/17 21:53 96 05/15/17 18:25 98 05/15/17 17:30 05/15/17 15:01 97 Intake and Output 05/16/17 05/16/17 05/16/17 06:59 14:59 22:59 Intake Total 360 Balance 360 Intake: Oral 360 Other: Voiding Method Toilet Toilet # Voids 2 PHYSICAL EXAMINATION: GENERAL: The patient is alert and oriented x3, not in any acute distress. Well developed, well nourished. HEENT: Pupils are round and equally reacting to light. EOMI. No scleral icterus. No conjunctival pallor. Normocephalic, atraumatic. No pharyngeal erythema. No thyromegaly. CARDIOVASCULAR: S1 and S2 present. No murmurs, rubs, or gallops. PULMONARY: Chest is clear to auscultation, no wheezing or crackles. ABDOMEN: Soft, nontender, nondistended, normoactive bowel sounds. No palpable organomegaly. MUSCULOSKELETAL: No joint swelling or deformity. EXTREMITIES: No cyanosis, clubbing, or pedal edema. NEUROLOGICAL: Gross neurological examination did not reveal any focal deficits. SKIN: No rashes. Results CBC & Chem 7: 05/15/17 16:07 05/15/17 16:07 Labs: Abnormal Lab Results - Last 24 Hours (Table) 05/15/17 05/15/17 05/15/17 Range/Units 16:07 16:07 19:57 Hgb 16.2 H (11.4-16.0) gm/dL Sodium 135 L (137-145) mmol/L Carbon Dioxide 19 L (22-30) mmol/L Creatinine 0.48 L (0.52-1.04) mg/dL Glucose 407 H (74-99) mg/dL POC Glucose (mg/dL) 301 H (75-99) mg/dL Hemoglobin A1c (4.0-6.0) % Total Creatine Kinase (30-135) U/L Triglycerides (<150) mg/dL Cholesterol (<200) mg/dL HDL Cholesterol (40-60) mg/dL Urine Appearance (Clear) Urine Glucose (UA) (Negative) Urine Ketones (Negative) Urine WBC (0-5) /hpf Ur Squamous Epith Cells (0-4) /hpf Urine Bacteria (None) /hpf Urine Mucus (None) /hpf Urine Yeast (Budding) (None) /hpf 05/15/17 05/15/17 05/15/17 Range/Units 20:15 21:03 22:05 Hgb (11.4-16.0) gm/dL Sodium (137-145) mmol/L Carbon Dioxide (22-30) mmol/L Creatinine (0.52-1.04) mg/dL Glucose (74-99) mg/dL POC Glucose (mg/dL) 286 H (75-99) mg/dL Hemoglobin A1c (4.0-6.0) % Total Creatine Kinase 28 L (30-135) U/L Triglycerides (<150) mg/dL Cholesterol (<200) mg/dL HDL Cholesterol (40-60) mg/dL Urine Appearance Cloudy H (Clear) Urine Glucose (UA) 4+ H (Negative) Urine Ketones 1+ H (Negative) Urine WBC 9 H (0-5) /hpf Ur Squamous Epith Cells 18 H (0-4) /hpf Urine Bacteria Few H (None) /hpf Urine Mucus Rare H (None) /hpf Urine Yeast (Budding) Rare H (None) /hpf 05/16/17 05/16/17 05/16/17 Range/Units 03:42 03:42 03:42 Hgb (11.4-16.0) gm/dL Sodium (137-145) mmol/L Carbon Dioxide (22-30) mmol/L Creatinine (0.52-1.04) mg/dL Glucose (74-99) mg/dL POC Glucose (mg/dL) (75-99) mg/dL Hemoglobin A1c 11.6 H (4.0-6.0) % Total Creatine Kinase 25 L (30-135) U/L Triglycerides >1575 H (<150) mg/dL Cholesterol 263 H (<200) mg/dL HDL Cholesterol 31 L (40-60) mg/dL Urine Appearance (Clear) Urine Glucose (UA) (Negative) Urine Ketones (Negative) Urine WBC (0-5) /hpf Ur Squamous Epith Cells (0-4) /hpf Urine Bacteria (None) /hpf Urine Mucus (None) /hpf Urine Yeast (Budding) (None) /hpf 05/16/17 05/16/17 05/16/17 Range/Units 06:59 10:55 12:07 Hgb (11.4-16.0) gm/dL Sodium (137-145) mmol/L Carbon Dioxide (22-30) mmol/L Creatinine (0.52-1.04) mg/dL Glucose (74-99) mg/dL POC Glucose (mg/dL) 319 H 267 H 294 H (75-99) mg/dL Hemoglobin A1c (4.0-6.0) % Total Creatine Kinase (30-135) U/L Triglycerides (<150) mg/dL Cholesterol (<200) mg/dL HDL Cholesterol (40-60) mg/dL Urine Appearance (Clear) Urine Glucose (UA) (Negative) Urine Ketones (Negative) Urine WBC (0-5) /hpf Ur Squamous Epith Cells (0-4) /hpf Urine Bacteria (None) /hpf Urine Mucus (None) /hpf Urine Yeast (Budding) (None) /hpf Microbiology - Last 24 Hours (Table) 05/15/17 20:15 Urine Culture - Preliminary Urine,Voided Thrombosis Risk Factor Assmnt - Choose All That Apply Any of the Below Risk Factors Present?: Yes Each Factor Represents 1 point: Age 41-60 years Thrombosis Risk Factor Assessment Total Risk Factor Score: 1 Thrombosis Risk Factor Assessment Level: Low Risk Assessment and Plan Plan: 1 chest pain: Rule out acute causes syndromes patient has been appears to be secondary to peptic ulcer disease and patient will undergo upper GI endoscopy tomorrow. -Artery disease with the cardiac catheterization and stenting in the past -Nicotine use: Counseling was provided -Gastroesophageal reflux disease -hyperipidemia and hypertriglyceridemia patient is already on high dose of statin and fenofibrate dietary counseling will be provided -Hypertension -type 2 diabetes mellitus will continue her home regimen along with sliding scale and titrate insulin upon discharge.
[2017-05-16 17:23] LABS: Glucose,Whole Blood 340 mg/dL (75-99)
[2017-05-16] MEDS: INSULIN ASPART 100 UNIT/ML 1 ML 10 ML VIAL SQ SCH ×2 (18:04→21:22)
--- NOTE | 2017-05-16 20:26 | CONS ---
CONSULTATION Mrs. Mary Jo Caldwell is a 56-year-old lady who sees Dr. Lock in the outpatient setting. This lady came into the hospital with abdominal pain and then also had some left lateral chest discomfort. The quality of her pain is very atypical. It does not suggest angina. In February of this year, less than 2 months ago, she underwent a cardiac catheterization performed by Dr. Lock which revealed that she did not have any significant obstructive CAD, and specifically her previously stented mid LAD, mid circumflex and proximal RCA were widely patent. There was about a 50% lesion in the RCA, but this area had a previous FFR and was deemed to be insignificant. This patient's presentation is not suggestive of angina. She has no further chest pain. Her abdominal pain seems to be also resolving. She is resting comfortably without symptoms. She has a past medical history that is significant for CAD with multivessel stenting and also has history of type 2 diabetes, insulin-requiring, hypertension, hyperlipidemia, and had previous back surgery, cholecystectomy and orthopedic surgery. Medications at home include metoprolol, gabapentin, metformin, Prilosec, melatonin, Prinivil, Lipitor, and she also takes aspirin and Effient. ALLERGIES: NO KNOWN DRUG ALLERGIES. PHYSICAL EXAMINATION: Blood pressure 120/70, pulse rate 70 per minute, regular. HEENT: Unremarkable. Fundus was not examined by me. NECK: Supple. There is no JVD. I do not hear a carotid bruit. Heart exam reveals a short systolic murmur. LUNGS: Clear. Abdomen and lower extremity exam is unchanged. Central nervous system is grossly within normal limits. EKG revealed a sinus mechanism with minor nonspecific ST-T changes. No significant abnormalities. Rare PVCs were noted. LABORATORY DATA: Laboratory data suggest that her troponin levels were unremarkable. IMPRESSION: 1. Atypical chest pain. 2. Abdominal pain. 3. History of coronary artery disease with recent cardiac catheterization that revealed that all stented segments in 3 arteries were patent. 4. Hypertension. 5. Type 2 diabetes mellitus. 6. Hypercholesterolemia. RECOMMENDATIONS: I have counseled the patient regarding the need to quit smoking. Unfortunately, she still smokes. I explained to her that her symptoms and presentation do not suggest myocardial ischemia and that she should see Dr. Lock a week after discharge. No further intervention is necessary at this time. Her abdominal pain, if it persists, should be evaluated further, but if there is improvement this can also be addressed as an outpatient. Thank you very much for the consult. MMODL / IJN: [id number] /
[2017-05-16] MEDS ORDERED: GABAPENTIN 300 MG CAP PO SCH (21:00)
[2017-05-16] MEDS ORDERED: INSULIN DETEMIR 100 UNIT/ML 10 ML VIAL SQ SCH ×2 (21:00)
[2017-05-16] MEDS ORDERED: ATORVASTATIN 80 MG TAB PO SCH (21:00)
[2017-05-16] MEDS ORDERED: LISINOPRIL 20 MG TAB PO SCH (21:00)
[2017-05-16] MEDS ORDERED: DULoxetine HCL 60 MG CAPSULE.DR PO SCH (21:00)
[2017-05-16 21:18] LABS: Glucose,Whole Blood 333 mg/dL (75-99)
[2017-05-17] MEDS: HYDROcodone/APAP 7.5-325MG 1 EACH TAB PO PRN ×3 (03:31→15:02)
[2017-05-17 07:14] LABS: Triglycerides 2099 mg/dL (<150)
[2017-05-17 07:46] LABS: Glucose,Whole Blood 212 mg/dL (75-99)
[2017-05-17] MEDS: ASPIRIN 325 MG TAB PO SCH (08:50)
[2017-05-17] MEDS: PANTOPRAZOLE 40 MG/10 ML VIAL IVP SCH (08:58)
[2017-05-17] MEDS: GABAPENTIN 300 MG CAP PO SCH (08:59)
[2017-05-17] MEDS: METOPROLOL TARTRATE 12.5 MG TAB PO SCH (08:59)
[2017-05-17] MEDS: PRASUGREL 10 MG TAB PO SCH (08:59)
[2017-05-17] MEDS: FENOFIBRATE 160 MG TAB PO SCH (08:59)
[2017-05-17] MEDS: INSULIN ASPART 100 UNIT/ML 1 ML 10 ML VIAL SQ SCH ×2 (09:01→12:29)
--- NOTE | 2017-05-17 09:32 | P.CONS ---
History of Present Illness - Reason for Consult Consult date: 05/17/17 epigastric pain Requesting physician: Oc Esparza - History of Present Illness 56-year-old female with a past medical history of peptic ulcer disease duodenal ulcer 2014, pancreatitis, celiac disease diagnosed many years ago serum only, hypertriglyceridemia, diabetes mellitus, hypertension, celiac disease, and GERD. Patient presented with epigastric pain x 2 weeks exacerbated with meals with a burning type sensation. No fever chills weight loss hematemesis hematochezia melena. Daily usage of NSAIDS , Motrin/Aleve x 1-2 months for hip pain. Hemoglobin 16.2. White count 8.4. LFTs within normal limits. BUN 15. Creatinine 0.4. Triglycerides 2099. CT abdomen and pelvis reported no sign of acute abdomen. EGD July [address] Garcia for evaluation of epigastric abdominal pain identified duodenitis with a moderately sized duodenal bulb ulcer covered with white exudate not showing any bleeding or evidence of gastric outlet obstruction. Review of Systems Constitutional: Denies fever, chills, sweats, weight gain, or loss. HEENT: Negative for migraines, blurred vision or loss, earaches, drainage, tinnitus, oral mucosal lesions, dysphagia, or odynophagia. CARDIAC: Hypertension. Hyperlipidemia. Negative for chest pain, arrhythmias, or palpitation. RESPIRATORY: Negative for shortness of breath, hemoptysis, cough, or sputum production. GI: See HPI for pertinent findings. : Negative for hematuria, urgency, frequency, polyuria, or dysuria. GYNc: Denies possibility of . Negative vaginal discharge. MUSCULOSKELETAL: Negative for muscle aches, swelling, arthritis, and arthralgias. NEUROLOGIC: Negative for stroke or TIA. ENDOCRINE: Diabetes mellitus. Elevated triglycerides. Negative for thyroid problems. SKIN: Negative for rash or itching. PSYCHIATRIC: Negative history for depression and anxiety Past Medical History Past Medical History: Diabetes Mellitus, GERD/Reflux, Hyperlipidemia, Hypertension Additional Past Medical History / Comment(s): IDDM type I, pancreatitis X2 ( Last was 05/02), celiac disease, feet neuropathy, chronic low back pain, UTIs, duodenitis/duodenal ulcer, hiatal hernia. History of Any Multi-Drug Resistant Organisms: None Reported Past Surgical History: Back Surgery, Cholecystectomy, Heart Catheterization With Stent, Orthopedic Surgery Additional Past Surgical History / Comment(s): Lumbar fusion, spinal cord stimulator, L knee arthroscopy, EGD, heart stent x3 Past Anesthesia/Blood Transfusion Reactions: No Reported Reaction Additional Past Anesthesia/Blood Transfusion Reaction / Comm: Never had blood transfusion Date of Last Stent Placement:: 02/2017 Past Psychological History: Anxiety Additional Psychological History / Comment(s): Pt resides with her spouse and their 16 yr old son. She is independent. Smoking Status: Current every day smoker Past Alcohol Use History: None Reported Additional Past Alcohol Use History / Comment(s): Pt is currently trying to quit smoking. She started smoking in 1989. Past Drug Use History: None Reported - Past Family History Father Family Medical History: Liver Disease Additional Family Medical History / Comment(s): Idiopathic cirrhosis of liver Mother Family Medical History: Coronary Artery Disease (CAD) Additional Family Medical History / Comment(s): Multiple stents. Mother at the age of 77 or 78yrs from [place]. Medications and Allergies Home Medications Medication Instructions Recorded Confirmed Type Gabapentin [Neurontin] 300 mg PO DAILY 03/18/14 05/15/17 History Insulin Aspart [NovoLOG See Protocol SQ QID 03/18/14 05/15/17 History (formulary)] Lisinopril [Prinivil] 20 mg PO HS 03/18/14 05/15/17 History Atorvastatin [Lipitor] 80 mg PO HS 06/26/16 05/15/17 History DULoxetine HCL [Cymbalta] 60 mg PO HS 06/26/16 05/15/17 History HYDROcodone/APAP 5-325MG [[place] 1 tab PO Q6HR PRN 06/26/16 05/15/17 History 5-325] Aspirin 81 mg PO DAILY #30 chew 07/02/16 05/15/17 Rx Nitroglycerin Sl Tabs [Nitrostat] 0.4 mg SUBLINGUAL Q5M PRN #50 tab 07/02/16 Rx Prasugrel [Effient] 10 mg PO DAILY #30 tab 07/02/16 05/15/17 Rx Insulin Glargine [Lantus] 30 unit SQ HS 09/01/16 05/15/17 History Melatonin 3 mg PO HS PRN 09/01/16 05/15/17 History Metoprolol Tartrate 12.5 mg PO BID 09/01/16 05/15/17 History Fenofibrate 160 mg PO AC-BRKFST 03/15/17 05/15/17 History Gabapentin [Neurontin] 900 mg PO HS 05/15/17 05/15/17 History metFORMIN HCL [Glucophage] 1,000 mg PO BID 05/15/17 05/15/17 History Pantoprazole Sodium [Protonix] 40 mg PO BID #60 tablet. 05/17/17 Rx Allergies Allergy/AdvReac Type Severity Reaction Status Date / Time gluten AdvReac Nausea & Verified 05/15/17 16:20 Vomiting & Diarrhea soy AdvReac Nausea & Verified 05/15/17 16:20 Vomiting & Diarrhea wheat AdvReac Nausea & Verified 05/15/17 16:20 Vomiting & Diarrhea Physical Exam Vitals: Vital Signs Temp Pulse Pulse Resp BP Pulse Ox 05/17/17 05:36 94/54 05/17/17 04:00 98.4 F 71 17 81/54 95 05/17/17 03:17 18 05/17/17 00:00 18 05/16/17 23:34 98.6 F 67 18 117/73 98 05/16/17 20:00 17 05/16/17 19:48 98.0 F 61 17 124/75 98 05/16/17 16:00 97.8 F 70 18 112/82 94 L 05/16/17 12:00 98.3 F 74 18 133/90 96 05/16/17 08:45 18 05/16/17 08:00 97.8 F 74 18 164/81 95 Intake and Output 05/16/17 05/17/17 05/17/17 22:59 06:59 14:59 Intake Total 600 Balance 600 Intake: Oral 600 Other: Voiding Method Toilet Toilet # Voids 1 3 Weight 72.121 kg General appearance: The patient is alert, oriented, in no acute distress. HET: Head is normocephalic and atraumatic. Pupils are equal and reactive. Oropharynx is clear without lesions. Neck: Supple without lymphadenopathy. Trachea midline. Heart: S1 S2. Regular rate and rhythm. Lungs: No crackles or wheezes are heard. Abdomen: Soft, mild midepigastric tenderness, nondistended with bowel sounds. No peritoneal signs. No palpable organomegaly or masses. Extremities: Normal skin color and turgor. No cyanosis, rash, ulceration, clubbing, or edema. Radial and pedal pulses are 2/4 bilaterally. Neurological: No focal deficits. Strength and sensation are grossly intact. Results CBC & Chem 7: 05/15/17 16:07 05/15/17 16:07 Labs: Abnormal Lab Results - Last 24 Hours (Table) 05/16/17 05/16/17 05/16/17 Range/Units 03:42 03:42 10:55 POC Glucose (mg/dL) 267 H (75-99) mg/dL Hemoglobin A1c 11.6 H (4.0-6.0) % Triglycerides 2099 H (<150) mg/dL 05/16/17 05/16/17 05/16/17 Range/Units 12:07 17:19 21:15 POC Glucose (mg/dL) 294 H 340 H 333 H (75-99) mg/dL Hemoglobin A1c (4.0-6.0) % Triglycerides (<150) mg/dL Microbiology - Last 24 Hours (Table) 05/15/17 20:15 Urine Culture - Final Urine,Voided CT scan - abdomen: report reviewed (Reviewed by Dr. Hope) Assessment and Plan (1) Epigastric pain Narrative/Plan: Possible recurrent peptic ulcer disease possible NSAID-induced Current Visit: Yes Status: Acute Code(s): R10.13 - EPIGASTRIC PAIN SNOMED Code(s): 79877857 (2) History of duodenal ulcer Current Visit: Yes Status: Acute Code(s): Z87.19 - PERSONAL HISTORY OF OTHER DISEASES OF THE DIGESTIVE SYSTEM SNOMED Code(s): 769700020 (3) Hypertriglyceridemia Current Visit: Yes Status: Acute Code(s): E78.1 - PURE HYPERGLYCERIDEMIA SNOMED Code(s): 522031255 (4) Diabetes mellitus Current Visit: Yes Status: Acute Code(s): E11.9 - TYPE 2 DIABETES MELLITUS WITHOUT COMPLICATIONS SNOMED Code(s): 15382001 Plan: 1. EGD evaluation. 2. Protonix 40 mg IV twice daily. The environmental educator has discussed the risks, benefits and alternative therapies for the above-mentioned procedure and for both sedation/analgesia as well as necessary blood product administration, if indicated, as they pertain to this patient. The patient has indicated understanding and acceptance of the risks and procedures discussed. Thank you for this kind referral and the opportunity to participate in the care of your patient. This consultation was discussed with Dr. Hope. The impression and plan of care have been directed as dictated.
[2017-05-17 09:46] VITALS: RESP 18
[2017-05-17 12:13] LABS: Glucose,Whole Blood 213 mg/dL (75-99)
[2017-05-17 12:25] LABS: Basophils # (A) 0.1 k/uL (0-0.2); Basophils % (A) 1 %; Eosinophils # (A) 0.2 k/uL (0-0.7); Eosinophils % (A) 3 %; HCT 41.9 % (34.0-46.0); HGB 14.7 gm/dL (11.4-16.0); Lymphocytes # (A) 2.5 k/uL (1.0-4.8); Lymphocytes % (A) 41 %; MCH 29.3 pg (25.0-35.0); MCHC 35.1 g/dL (31.0-37.0); MCV 83.7 fL (80.0-100.0); Mean Platelet Volume 7.1; Monocytes # (A) 0.3 k/uL (0-1.0); Monocytes % (A) 4 %; Neutrophils % (A) 49 %; Platelet Count 173 k/uL (150-450); RBC 5.01 m/uL (3.80-5.40); RDW 13.4 % (11.5-15.5); WBC 6.1 k/uL (3.8-10.6)
[2017-05-17 12:38] LABS: Anion Gap 12 mmol/L; Blood Urea Nitrogen 14 mg/dL (7-17); Carbon Dioxide 23 mmol/L (22-30); Chloride 102 mmol/L (98-107); Glucose 205 mg/dL (74-99); Potassium 3.8 mmol/L (3.5-5.1); Sodium 137 mmol/L (137-145)
[2017-05-17] MEDS ORDERED: IV FLUID CONTINUATION 200 ML IV ONE (13:27)
[2017-05-17] MEDS ORDERED: PROPOFOL 10 MG/ML 20 ML VIAL IV ONE (13:37)
--- NOTE | 2017-05-17 13:41 | P.PCN ---
Date of Procedure: 05/17/17 Procedure(s) Performed: BRIEF HISTORY: Patient is a 56-year-old, pleasant, white female, scheduled for an upper endoscopy as a part of evaluation of epigastric and right upper quadrant abdominal pain for the last 2 weeks' duration. Last 2 days the pain has been progressively getting worse. She has been on baby aspirin daily and Motrin as needed. She has prior history of peptic ulcer disease 2 years ago. PROCEDURE PERFORMED: Esophagogastroduodenoscopy. PREOPERATIVE DIAGNOSIS: Epigastric/right upper quadrant abdominal pain. IV sedation per anesthesia. PROCEDURE: After informed consent was obtained, the patient was brought into the endoscopy unit. IV sedation was administered by Anesthesia under continuous monitoring. Initially the Olympus GIF-140 video endoscope was inserted into the mouth. Esophagus intubated without any difficulty. It was gradually advanced into the stomach and duodenum and carefully examined. The bulb and the second part of the duodenum appeared normal. The scope at this time was withdrawn to the stomach, adequately insufflated with air, and upon careful examination, mucosa of the antrum, had mild gastritis. The body, cardia and the fundus appeared normal. The scope was then withdrawn into the esophagus. The GE junction was located at 39 cm from the incisors. There was one supervision erosion at the GE junction consistent with [place] grade a reflux esophagitis. Rest of the esophagus appeared normal and the patient tolerated the procedure well IMPRESSION: 1. Mild antral gastritis. 2. One superficial erosion at the GE junction consistent with [place] grade A reflux esophagitis. RECOMMENDATIONS: The findings of this examination were discussed with the patient. She will continue Protonix 40 minute grams daily and avoid NSAIDs. Diet will be advanced as tolerated..
[2017-05-17 14:59] VITALS: TEMP 98
[2017-05-17 15:42] VITALS: PULSE 60
[2017-05-17 15:43] VITALS: BP 129/68
--- NOTE | 2017-05-18 08:43 | DS ---
DISCHARGE SUMMARY DATE OF SERVICE: 05/17/2017. FINAL DIAGNOSES: 1. Epigastric pain status post EGD showing antral gastritis and superficial erosion of the GE junction with reflux esophagitis. 2. History of coronary artery disease with stenting in the past history. 3. History of nicotine dependence. 4. Gastroesophageal reflux disease. 5. Hyperlipidemia. 6. Hypertension. 7. Diabetes mellitus Type 2. DISCHARGE DISPOSITION: The patient is being discharged in stable condition with guarded prognosis. HISTORY OF PRESENT ILLNESS: This 56-year-old woman with a past medical history of multiple medical problems admitted with epigastric pain. Myocardial infarction ruled out. Cardiology saw the patient. EGD showed evidence of antral gastritis, superficial rash, treated medically. Patient improved significantly. PHYSICAL EXAMINATION: On exam, vital signs are stable. Cardiovascular: S1, S2. Abdomen is soft. Nontender. Central nervous system: No focal deficits. DISCHARGE ADVICE AND MEDICATIONS: 1. Diet is soft cardiac diet. 2. Activity limited until followup. 3. Follow up with Dr. Phelps in 2-3 days. 4. Follow with Dr. Hope and Dr. Lock as recommended. MEDICATIONS: 1. Aspirin 81 mg p.o. daily. 2. Lipitor 80 mg q.h.s. 3. Cymbalta 60 mg q.h.s. 4. Fenofibrate 160 mg daily. 5. Neurontin 300 mg daily and 900 mg q.h.s. 6. [place] 5 mg q.6h p.r.n. 7. NovoLog scale. 8. Lantus 30 units subcu q.h.s. 9. Prinivil 20 mg q.h.s. 10.Melatonin 3 mg q.h.s. p.r.n. 11.Glucophage 2000 mg p.o. b.i.d. 12.Metoprolol 12.5 mg p.o. b.i.d. 13.Nitrostat 0.4 mg p.r.n. 14.Protonix 40 mg p.o. b.i.d. 15.Effient 10 mg p.o. daily. Once again, the patient is being discharged in a stable condition with guarded prognosis. MMODL / IJN: [id number] /
== END 2017-05-17 16:34 | disposition home or self-care (01) ==
LOC: EC 14:56 → 3OBS 21:17
PROVIDERS: ADMIT Hospitalist; ATTEND Hospitalist
DX: K29.60 Other gastritis without bleeding (principal); K21.0 Gastro-esophageal reflux disease with esophagitis; E11.65 Type 2 diabetes mellitus with hyperglycemia; I10 Essential (primary) hypertension; E78.5 Hyperlipidemia, unspecified; I25.10 Atherosclerotic heart disease of native coronary artery without angina pectoris; Z95.5 Presence of coronary angioplasty implant and graft; K90.0 Celiac disease; G89.29 Other chronic pain; M54.5 Low back pain; G62.9 Polyneuropathy, unspecified; K44.9 Diaphragmatic hernia without obstruction or gangrene; F41.9 Anxiety disorder, unspecified; F17.200 Nicotine dependence, unspecified, uncomplicated; E78.00 Pure hypercholesterolemia, unspecified; E78.1 Pure hyperglyceridemia; Z90.49 Acquired absence of other specified parts of digestive tract; Z79.02 Long term (current) use of antithrombotics/antiplatelets; Z79.82 Long term (current) use of aspirin; Z79.84 Long term (current) use of oral hypoglycemic drugs; Z79.4 Long term (current) use of insulin; Z91.018 Allergy to other foods; Z79.899 Other long term (current) drug therapy; Z87.11 Personal history of peptic ulcer disease; Z87.440 Personal history of urinary (tract) infections; Z79.1 Long term (current) use of non-steroidal anti-inflammatories (NSAID); Z82.49 Family history of ischemic heart disease and other diseases of the circulatory system; Z83.79 Family history of other diseases of the digestive system
CPT/HCPCS: 99285 ×2; 96374 ×2; 96376 ×5; 96375 ×2; 36415; 93005; 80061; 80053; 80048; 82550 ×2; 82553 ×2; 83735; 84484 ×2; 85025 ×2; 85610; 85730; 86140; 81001; 87086; 83036; 71046; 74177; 43235; G0378 ×3; J2405 ×2; J2704; C9113 ×2; Q9967; J2270 ×2

== ENCOUNTER 2017-09-01 15:40 | Inpatient (IN) | payer MEDICARE ==
--- NOTE | 2017-09-01 16:32 | ED ---
Neuro HPI - General Chief Complaint: Neuro Symptoms/Deficit Stated Complaint: Rt side numbness Time Seen by Provider: 09/01/17 15:50 Source: patient, RN notes reviewed Mode of arrival: wheelchair Limitations: physical limitation - History of Present Illness Is the patient presenting with stroke symptoms?: Yes Last Known Well Date: 08/31/17 Initial Comments: This is a 56-year-old female who states she had the onset of numbness in the right side of her face and extremities 3 days ago. She has leg weakness right compared to left difficulty with ambulation. Also she had exertional dyspnea and some chest pain. She does have a history of diabetes and cardiac disease with 3 stents in the last year. Currently she is pain-free he states he has some improvement in the numbness on the right side as well as weakness but still very weak compared to the normal state. She has a trauma fevers chills sweats or other symptoms - Related Data Home Medications: Home Medications Medication Instructions Recorded Confirmed Gabapentin [Neurontin] 300 mg PO DAILY 03/18/14 09/01/17 Insulin Aspart [NovoLOG See Protocol SQ QID 03/18/14 09/01/17 (formulary)] Lisinopril [Prinivil] 20 mg PO DAILY 03/18/14 09/01/17 Atorvastatin [Lipitor] 80 mg PO HS 06/26/16 09/01/17 DULoxetine HCL [Cymbalta] 60 mg PO HS 06/26/16 09/01/17 Insulin Glargine [Lantus] 38 unit SQ HS 09/01/16 09/01/17 Melatonin 3 mg PO PRN 09/01/16 09/01/17 Metoprolol Tartrate 12.5 mg PO BID 09/01/16 09/01/17 Fenofibrate 160 mg PO AC-BRKFST 03/15/17 09/01/17 Gabapentin [Neurontin] 900 mg PO HS 05/15/17 09/01/17 metFORMIN HCL [Glucophage] 1,000 mg PO BID 05/15/17 09/01/17 Insulin NPH Hum/Reg Insulin Hm 10 unit SQ AC-SUPPER 09/01/17 09/01/17 [NovoLIN 70-30 100 UNIT/ML VIAL] Insulin NPH Hum/Reg Insulin Hm 15 unit SQ QAM 07/14/18 07/14/18 [NovoLIN 70-30 100 UNIT/ML VIAL] Isosorbide Mononitrate ER [Imdur] 60 mg PO DAILY 09/01/17 09/01/17 Previous Rx's Medication Instructions Recorded Aspirin 81 mg PO DAILY #30 chew 07/02/16 Nitroglycerin Sl Tabs [Nitrostat] 0.4 mg SUBLINGUAL Q5M PRN #50 tab 07/02/16 Prasugrel [Effient] 10 mg PO DAILY #30 tab 07/02/16 HYDROcodone/APAP 5-325MG [[place] 1 tab PO Q6HR PRN #20 tab 05/17/17 5-325] Pantoprazole Sodium [Protonix] 40 mg PO BID #60 tablet. 05/17/17 Allergies/Adverse Reactions: Allergies Allergy/AdvReac Type Severity Reaction Status Date / Time gluten AdvReac Nausea & Verified 09/01/17 16:36 Vomiting & Diarrhea Review of Systems ROS Statement: Those systems with pertinent positive or pertinent negative responses have been documented in the HPI. ROS Other: All systems not noted in ROS Statement are negative. General Exam - General Exam Comments Initial Comments: This is a well-developed well-nourished awake alert oriented 3 female Limitations: physical limitation General appearance: alert, anxious Head exam: Present: atraumatic, normocephalic, normal inspection Eye exam: Present: normal appearance, PERRL, EOMI. Absent: scleral icterus, conjunctival injection, periorbital swelling ENT exam: Present: normal exam, mucous membranes moist Neck exam: Present: normal inspection. Absent: tenderness, meningismus, lymphadenopathy Respiratory exam: Present: normal lung sounds bilaterally. Absent: respiratory distress, wheezes, rales, rhonchi, stridor Cardiovascular Exam: Present: regular rate, normal rhythm, normal heart sounds. Absent: systolic murmur, diastolic murmur, rubs, gallop, clicks GI/Abdominal exam: Present: soft, normal bowel sounds. Absent: distended, tenderness, guarding, rebound, rigid Extremities exam: Present: normal inspection, normal capillary refill, other. Absent: full ROM, tenderness, pedal edema, joint swelling, calf tenderness Back exam: Present: normal inspection Neurological exam: Present: alert, oriented X3, CN II-XII intact, motor sensory deficit, other (Numbness to the right upper and lower extremity compared to the left with decreased sensation) Psychiatric exam: Present: normal affect, normal mood Skin exam: Present: warm, dry, intact, normal color. Absent: rash Stroke MDM - Lab Data Result diagrams: 09/01/17 16:26 09/01/17 16:26 Lab Results 09/01/17 09/01/17 09/01/17 Range/Units 16:26 16:26 16:26 WBC 7.1 (3.8-10.6) k/uL RBC 5.67 H (3.80-5.40) m/uL Hgb 17.1 H (11.4-16.0) gm/dL Hct 48.2 H (34.0-46.0) % MCV 85.1 (80.0-100.0) fL MCH 30.2 (25.0-35.0) pg MCHC 35.4 (31.0-37.0) g/dL RDW 13.5 (11.5-15.5) % Plt Count 196 (150-450) k/uL Neutrophils % 52 % Lymphocytes % 38 % Monocytes % 5 % Eosinophils % 2 % Basophils % 1 % Neutrophils # 3.7 (1.3-7.7) k/uL Lymphocytes # 2.7 (1.0-4.8) k/uL Monocytes # 0.3 (0-1.0) k/uL Eosinophils # 0.2 (0-0.7) k/uL Basophils # 0.1 (0-0.2) k/uL PT (9.0-12.0) sec INR (<1.2) APTT (22.0-30.0) sec Sodium 141 (137-145) mmol/L Potassium 4.1 (3.5-5.1) mmol/L Chloride 103 (98-107) mmol/L Carbon Dioxide 23 (22-30) mmol/L Anion Gap 15 mmol/L BUN 12 (7-17) mg/dL Creatinine 0.56 (0.52-1.04) mg/dL Est GFR (CKD-EPI)AfAm >90 (>60 ml/min/1.73 sqM) Est GFR (CKD-EPI)NonAf >90 (>60 ml/min/1.73 sqM) Glucose 306 H (74-99) mg/dL Calcium 9.9 (8.4-10.2) mg/dL Magnesium 1.8 (1.6-2.3) mg/dL Total Bilirubin 0.6 (0.2-1.3) mg/dL AST 28 (14-36) U/L ALT 28 (9-52) U/L Alkaline Phosphatase 70 (38-126) U/L Total Creatine Kinase 59 (30-135) U/L CK-MB (CK-2) 1.6 (0.0-2.4) ng/mL CK-MB (CK-2) Rel Index 2.7 Troponin I <0.012 (0.000-0.034) ng/mL Total Protein 8.2 (6.3-8.2) g/dL Albumin 4.8 (3.5-5.0) g/dL 09/01/17 Range/Units 16:27 WBC (3.8-10.6) k/uL RBC (3.80-5.40) m/uL Hgb (11.4-16.0) gm/dL Hct (34.0-46.0) % MCV (80.0-100.0) fL MCH (25.0-35.0) pg MCHC (31.0-37.0) g/dL RDW (11.5-15.5) % Plt Count (150-450) k/uL Neutrophils % % Lymphocytes % % Monocytes % % Eosinophils % % Basophils % % Neutrophils # (1.3-7.7) k/uL Lymphocytes # (1.0-4.8) k/uL Monocytes # (0-1.0) k/uL Eosinophils # (0-0.7) k/uL Basophils # (0-0.2) k/uL PT 11.2 (9.0-12.0) sec INR 1.2 H (<1.2) APTT 23.3 (22.0-30.0) sec Sodium (137-145) mmol/L Potassium (3.5-5.1) mmol/L Chloride (98-107) mmol/L Carbon Dioxide (22-30) mmol/L Anion Gap mmol/L BUN (7-17) mg/dL Creatinine (0.52-1.04) mg/dL Est GFR (CKD-EPI)AfAm (>60 ml/min/1.73 sqM) Est GFR (CKD-EPI)NonAf (>60 ml/min/1.73 sqM) Glucose (74-99) mg/dL Calcium (8.4-10.2) mg/dL Magnesium (1.6-2.3) mg/dL Total Bilirubin (0.2-1.3) mg/dL AST (14-36) U/L ALT (9-52) U/L Alkaline Phosphatase (38-126) U/L Total Creatine Kinase (30-135) U/L CK-MB (CK-2) (0.0-2.4) ng/mL CK-MB (CK-2) Rel Index Troponin I (0.000-0.034) ng/mL Total Protein (6.3-8.2) g/dL Albumin (3.5-5.0) g/dL - NIH Stroke Scale 1a. Level of Consciousness: (0) alert 1b. LOC Questions: (0) answers correctly 1c. LOC Commands: (0) performs tasks correctly 2. Best Gaze: (0) normal 3. Visual: (0) no visual loss 4. Facial Palsy: (0) normal symmetrical movement 5a. Motor Arm Left: (0) no drift 5b. Motor Arm Right: (1) drift 6a. Motor Leg Left: (0) no drift 6b. Motor Leg Right: (1) drift 7. Limb Ataxia: (0) absent 8. Sensory: (1) mild/moderate sensory loss 9. Best Language: (0) no aphasia 10. Dysarthria: (0) normal 11. Extinction/Inattention: (0) no abnormality - Thrombolytic Inclusion/Exclusion Thrombolytic Exclusion Criteria: Symptom Onset > 3 Hours - Medical Decision Making I did discuss findings with the patient and her . Patient does demonstrate evidence of a CVA however it appears that it began 3 days ago the patient is therefore not a candidate for intervention at this time. Imaging studies are unremarkable at this time. Patient be admitted with consultation with neurology. I did discuss the case with the hospitalist. - EKG Data -: EKG Interpreted by Me EKG shows normal: sinus rhythm (Sinus rhythm rate of 68. Interval 150 QRS duration 80 QT since QTC of 14/435 nonspecific T-wave configuration.) Past Medical History Past Medical History: Diabetes Mellitus, GERD/Reflux, Hyperlipidemia, Hypertension Additional Past Medical History / Comment(s): IDDM type I, pancreatitis X2 ( Last was 05/02), celiac disease, feet neuropathy, chronic low back pain, UTIs, duodenitis/duodenal ulcer, hiatal hernia. History of Any Multi-Drug Resistant Organisms: None Reported Past Surgical History: Back Surgery, Cholecystectomy, Heart Catheterization With Stent, Orthopedic Surgery Additional Past Surgical History / Comment(s): Lumbar fusion, spinal cord stimulator, L knee arthroscopy, EGD Past Anesthesia/Blood Transfusion Reactions: No Reported Reaction Additional Past Anesthesia/Blood Transfusion Reaction / Comment(s): Never had blood transfusion Date of Last Stent Placement:: 02/2017 Past Psychological History: Anxiety Smoking Status: Current every day smoker Past Alcohol Use History: None Reported Past Drug Use History: None Reported - Past Family History Father Family Medical History: Liver Disease Additional Family Medical History / Comment(s): Idiopathic cirrhosis of liver Mother Family Medical History: Coronary Artery Disease (CAD) Additional Family Medical History / Comment(s): Multiple stents. Mother at the age of 77 or 78yrs from [place]. Course Vital Signs 09/01/17 09/01/17 09/01/17 15:43 16:18 18:37 Temperature 97.9 F Pulse Rate 83 71 68 Respiratory 18 18 16 Rate Blood Pressure 156/91 177/97 113/65 O2 Sat by Pulse 99 96 97 Oximetry - Reevaluation(s) Reevaluation #1: 09/01/17 19:18 Patient was reevaluated. No further symptoms are noted. Reevaluation #2: 09/01/17 19:19 Smoking cessation: I did discuss the wrist benefits of smoking cessation with the patient the told conversation lasting 3.1 minutes. Patient was not interested this time. Disposition Clinical Impression: Cerebrovascular accident, Smoking Disposition: ADMITTED IP TO THIS [facility] Condition: Stable Referrals: Kiran Phelps DO [Primary Care Provider] - 1-2 days
[2017-09-01 16:40] LABS: Basophils # (A) 0.1 k/uL (0-0.2); Basophils % (A) 1 %; Eosinophils # (A) 0.2 k/uL (0-0.7); Eosinophils % (A) 2 %; HCT 48.2 % (34.0-46.0); HGB 17.1 gm/dL (11.4-16.0); Lymphocytes # (A) 2.7 k/uL (1.0-4.8); Lymphocytes % (A) 38 %; MCH 30.2 pg (25.0-35.0); MCHC 35.4 g/dL (31.0-37.0); MCV 85.1 fL (80.0-100.0); Mean Platelet Volume 7.2; Monocytes # (A) 0.3 k/uL (0-1.0); Monocytes % (A) 5 %; Neutrophils # (A) 3.7 k/uL (1.3-7.7); Neutrophils % (A) 52 %; Platelet Count 196 k/uL (150-450); RBC 5.67 m/uL (3.80-5.40); RDW 13.5 % (11.5-15.5); WBC 7.1 k/uL (3.8-10.6)
[2017-09-01 16:48] LABS: INR 1.2 (<1.2); Partial Thromboplastin Time 23.3 sec (22.0-30.0); Prothrombin Time 11.2 sec (9.0-12.0)
[2017-09-01 16:57] LABS: Creatine Kinase 59 U/L (30-135)
[2017-09-01 16:59] LABS: ALT 28 U/L (9-52); AST 28 U/L (14-36); Albumin 4.8 g/dL (3.5-5.0); Alkaline Phosphatase 70 U/L (38-126); Anion Gap 15 mmol/L; Blood Urea Nitrogen 12 mg/dL (7-17); Calcium 9.9 mg/dL (8.4-10.2); Carbon Dioxide 23 mmol/L (22-30); Chloride 103 mmol/L (98-107); Glucose 306 mg/dL (74-99); Magnesium 1.8 mg/dL (1.6-2.3); Potassium 4.1 mmol/L (3.5-5.1); Sodium 141 mmol/L (137-145); Total Bilirubin 0.6 mg/dL (0.2-1.3); Total Protein 8.2 g/dL (6.3-8.2)
[2017-09-01 17:11] LABS: Creatine Kinase MB 1.6 ng/mL (0.0-2.4); Troponin I <0.012 ng/mL (0.000-0.034)
--- NOTE | 2017-09-01 17:13 | CT ---
EXAMINATION TYPE: CT brain wo con DATE OF EXAM: 09/01/2017 HISTORY: Right side weakness. CT DLP: 1027.6 mGycm. Automated Exposure Control for Dose Reduction was Utilized. TECHNIQUE: CT scan of the head is performed without contrast. COMPARISON: None. FINDINGS: There is no acute intracranial hemorrhage or midline shift identified. Ventricles and sul ci are normal in size for patient's age. There is low-attenuation in the periventricular white matte r consistent with chronic small vessel ischemic change. Vascular calcification distal internal caroti d arteries bilaterally is present. The globes are intact and the visualized sinuses are clear. IMPRESSION: No acute intracranial hemorrhage or midline shift. There is suspected mild chronic smal l vessel ischemic change noted.
[2017-09-01] MEDS ORDERED: ASPIRIN 325 MG TAB PO STA (19:20)
[2017-09-01] MEDS ORDERED: NITROGLYCERIN SL TABS 0.4 MG TAB SUBLINGUAL PRN (19:23)
[2017-09-01] MEDS: SODIUM CHLORIDE 0.9% 1,000 ML IV SCH (20:29)
[2017-09-01 21:29] LABS: Glucose,Whole Blood 265 mg/dL (75-99)
[2017-09-01 22:18] VITALS: BMI 23.6
[2017-09-01] MEDS: GABAPENTIN 300 MG CAP PO SCH (22:25)
[2017-09-01] MEDS: ATORVASTATIN 80 MG TAB PO SCH (22:25)
[2017-09-01] MEDS: FAMOTIDINE 20 MG TAB PO SCH (22:25)
[2017-09-01] MEDS: DULoxetine HCL 60 MG CAPSULE.DR PO SCH (22:25)
[2017-09-01] MEDS: metFORMIN 500 MG TAB PO SCH (22:26)
[2017-09-01] MEDS: METOPROLOL TARTRATE 12.5 MG TAB PO SCH (22:26)
[2017-09-01] MEDS: PANTOPRAZOLE 40 MG TABLET PO SCH (22:26)
[2017-09-01] MEDS: INSULIN ASPART 100 UNIT/ML 1 ML 10 ML VIAL SQ SCH (22:51)
[2017-09-01] MEDS: MELATONIN 3 MG TABLET PO PRN (22:58)
[2017-09-01 23:11] LABS: Appearance,Urine Clear (Clear); Bilirubin,Urine Negative (Negative); Blood,Urine Negative (Negative); Color,Urine Yellow; Glucose,Urine (UA) 4+ (Negative); Ketones,Urine Trace (Negative); Leukocyte Esterase,Urine Negative (Negative); Nitrite,Urine Negative (Negative); PH, Urine 5.5 (5.0-8.0); Protein,Urine Negative (Negative); Specific Gravity,Urine 1.028 (1.001-1.035); Urobilinogen,Urine <2.0 mg/dL (<2.0)
[2017-09-01] MEDS: INSULIN DETEMIR 100 UNIT/ML 10 ML VIAL SQ SCH (23:56)
[2017-09-02 01:12] LABS: Cholesterol 192 mg/dL (<200); HDL Cholesterol 37 mg/dL (40-60); Triglycerides 419 mg/dL (<150)
[2017-09-02 05:54] LABS: Glucose,Whole Blood 272 mg/dL (75-99)
[2017-09-02] MEDS: SODIUM CHLORIDE 0.9% 1,000 ML IV SCH ×2 (06:59→17:27)
[2017-09-02] MEDS: INSULIN ASPART 100 UNIT/ML 1 ML 10 ML VIAL SQ SCH ×4 (06:59→22:12)
[2017-09-02] MEDS: FENOFIBRATE 160 MG TAB PO SCH (06:59)
[2017-09-02] MEDS: FAMOTIDINE 20 MG TAB PO SCH (07:56)
[2017-09-02] MEDS: ASPIRIN 325 MG TAB PO SCH (07:56)
[2017-09-02] MEDS: metFORMIN 500 MG TAB PO SCH ×2 (07:57→22:11)
[2017-09-02] MEDS: LISINOPRIL 20 MG TAB PO SCH (07:57)
[2017-09-02] MEDS: INSULIN NPH/REG INSULIN 70/30 300 UNIT/3 ML VIAL SQ SCH (07:57)
[2017-09-02] MEDS: ISOSORBIDE MONONITRATE ER 60 MG TAB.ER.24H PO SCH (07:57)
[2017-09-02] MEDS: GABAPENTIN 300 MG CAP PO SCH ×2 (07:57→22:11)
[2017-09-02] MEDS: METOPROLOL TARTRATE 12.5 MG TAB PO SCH ×2 (07:58→22:11)
[2017-09-02] MEDS: PANTOPRAZOLE 40 MG TABLET PO SCH ×2 (07:58→22:11)
[2017-09-02] MEDS: PRASUGREL 10 MG TAB PO SCH (07:59)
[2017-09-02 11:41] LABS: Glucose,Whole Blood 282 mg/dL (75-99)
--- NOTE | 2017-09-02 13:10 | P.HPIM ---
History of Present Illness H&P Date: 09/02/17 Chief Complaint: Right leg weakness Patient is a 56 and female with a known history of hypertension, diabetes type 1 , GERD and history of coronary artery disease with recent stent placement 3 last 1 year and multiple other medical problems came to ER with complaints of right-sided facial numbness and right lower extremity weakness. Patient says that 3 days ago she felt right leg feeling bleed and weak compared to left. Patient thought it is due to her peripheral neuropathy. Patient also felt right -sided facial is numb. Denied any difficulty or swallowing. No facial weakness noted otherwise. Right leg weakness is getting worse and made her come to the hospital. Denied any fever or chills. No chest pain. No shortness of breath. No nausea vomiting or abdominal pain. No dysuria or hematuria no diarrhea. EKG showed normal sinus rhythm CT head showed no acute intracranial hemorrhage or midline shift. There is suspected mild chronic small ischemic changes noted. Carotid duplex done in 2014 showed no significant stenosis. Patient says that she recently had carotid Doppler. Patient follows with Dr. Cruz as outpatient. Review of Systems Constitutional: Patient denies any fever or chills . No generalized weakness or weight loss. Abdomen: Patient denied nausea vomiting and diarrhea and abdominal pain. Cardiovascular: Patient denies any chest pain or short of breath no palpitations. Respiratory: patient denied any cough is from production. No shortness of breath Neurologic: Patient denied any numbness or tingling headache. Right leg weakness and right facial numbness. Musculoskeletal: Patient denies any complaints of joint swelling or deformity. Skin: Negative Psychiatric: Negative Endocrine: No heat or cold intolerance. No recent weight gain. Genitourinary: No dysuria or hematuria. All other 14 point ROS negative except the above Past Medical History Past Medical History: Diabetes Mellitus, GERD/Reflux, Hyperlipidemia, Hypertension Additional Past Medical History / Comment(s): IDDM type I, pancreatitis X2 ( Last was 05/02), celiac disease, feet neuropathy, chronic low back pain, UTIs, duodenitis/duodenal ulcer, hiatal hernia. History of Any Multi-Drug Resistant Organisms: None Reported Past Surgical History: Back Surgery, Cholecystectomy, Heart Catheterization With Stent, Orthopedic Surgery Additional Past Surgical History / Comment(s): Lumbar fusion, spinal cord stimulator, L knee arthroscopy, EGD, cardiac cath with 3 stents in February 2017 Past Anesthesia/Blood Transfusion Reactions: No Reported Reaction Additional Past Anesthesia/Blood Transfusion Reaction / Comment(s): Never had blood transfusion Date of Last Stent Placement:: 02/2017 Past Psychological History: Anxiety Additional Psychological History / Comment(s): Pt resides with her spouse and their 17 yr old son. She is independent. Smoking Status: Current every day smoker Past Alcohol Use History: None Reported Additional Past Alcohol Use History / Comment(s): Pt is currently trying to quit smoking. Started smoking at age 27. Past Drug Use History: None Reported - Past Family History Father Family Medical History: Liver Disease Additional Family Medical History / Comment(s): Idiopathic cirrhosis of liver Mother Family Medical History: Coronary Artery Disease (CAD) Additional Family Medical History / Comment(s): Multiple stents. Mother at the age of 77 or 78yrs from [place]. Medications and Allergies Home Medications Medication Instructions Recorded Confirmed Type Gabapentin [Neurontin] 300 mg PO DAILY 03/18/14 09/01/17 History Insulin Aspart [NovoLOG See Protocol SQ QID 03/18/14 09/01/17 History (formulary)] Lisinopril [Prinivil] 20 mg PO DAILY 03/18/14 09/01/17 History Atorvastatin [Lipitor] 80 mg PO HS 06/26/16 09/01/17 History DULoxetine HCL [Cymbalta] 60 mg PO HS 06/26/16 09/01/17 History Aspirin 81 mg PO DAILY #30 chew 07/02/16 09/01/17 Rx Nitroglycerin Sl Tabs [Nitrostat] 0.4 mg SUBLINGUAL Q5M PRN #50 tab 07/02/16 Rx Prasugrel [Effient] 10 mg PO DAILY #30 tab 07/02/16 09/01/17 Rx Insulin Glargine [Lantus] 38 unit SQ HS 09/01/16 09/01/17 History Melatonin 3 mg PO HS PRN 09/01/16 09/01/17 History Metoprolol Tartrate 12.5 mg PO BID 09/01/16 09/01/17 History Fenofibrate 160 mg PO AC-BRKFST 03/15/17 09/01/17 History Gabapentin [Neurontin] 900 mg PO HS 05/15/17 09/01/17 History metFORMIN HCL [Glucophage] 1,000 mg PO BID 05/15/17 09/01/17 History HYDROcodone/APAP 5-325MG [[place] 1 tab PO Q6HR PRN #20 tab 05/17/17 09/01/17 Rx 5-325] Pantoprazole Sodium [Protonix] 40 mg PO BID #60 tablet. 05/17/17 09/01/17 Rx Insulin NPH Hum/Reg Insulin Hm 10 unit SQ AC-SUPPER 09/01/17 09/01/17 History [NovoLIN 70-30 100 UNIT/ML VIAL] Insulin NPH Hum/Reg Insulin Hm 15 unit SQ QAM 09/01/17 09/01/17 History [NovoLIN 70-30 100 UNIT/ML VIAL] Isosorbide Mononitrate ER [Imdur] 60 mg PO DAILY 09/01/17 09/01/17 History Allergies Allergy/AdvReac Type Severity Reaction Status Date / Time gluten AdvReac Nausea & Verified 09/01/17 16:36 Vomiting & Diarrhea Physical Exam Vitals: Vital Signs Temp Pulse Pulse Resp BP BP Pulse Ox 09/02/17 07:53 97.8 F 60 18 117/75 94 L 09/02/17 07:50 60 18 09/02/17 04:00 97.5 F L 65 18 114/74 95 09/02/17 00:00 98.0 F 74 18 123/71 98 09/01/17 18:37 68 16 113/65 97 09/01/17 16:18 71 18 177/97 96 09/01/17 15:43 97.9 F 83 18 156/91 99 Intake and Output 09/01/17 09/02/17 09/02/17 22:59 06:59 14:59 Intake Total 30 800 240 Output Total 400 Balance 30 400 240 Intake: Amount of Fluid Infused ( 30 ml) Intake, IV Titration 800 Amount Sodium Chloride 0.9% 1, 800 000 ml @ 100 mls/hr IV . Q10H [facility] [place] Rx#:[id number] Oral 240 Output: Urine 400 Other: Voiding Method Toilet Toilet # Voids 1 1 Weight 70.6 kg 70.6 kg PHYSICAL EXAMINATION: Patient is lying in the bed comfortably, no acute distress, awake alert and oriented.. HEENT: Normocephalic. Neck is supple. Pupils reactive. Nostrils clear. Oral cavity is moist. Ears reveal no drainage. Neck reveals no JVD, carotid bruits, or thyromegaly. CHEST EXAMINATION: Trachea is central. Symmetrical expansion. Lung saeed clear to auscultation and percussion. CARDIAC: Normal S1, S2 with no gallops. No murmurs ABDOMEN: Soft. Bowel sounds normal. No organomegaly. No abdominal bruits. Extremities: reveal no edema. No clubbing or cyanosis Neurologically awake, alert, oriented x3 with well-coordinated movements. Right lower activity weakness and right facial numbness. Skin: No rash or skin lesions. Psychiatric: Coperative. Nonsuicidal Musculoskeletal: No joint swelling or deformity. Normal range of motion. Results CBC & Chem 7: 09/01/17 16:26 09/01/17 16:26 Labs: Abnormal Lab Results - Last 24 Hours (Table) 09/01/17 09/01/17 09/01/17 Range/Units 16:26 16:26 16:26 RBC 5.67 H (3.80-5.40) m/uL Hgb 17.1 H (11.4-16.0) gm/dL Hct 48.2 H (34.0-46.0) % INR (<1.2) Glucose 306 H (74-99) mg/dL POC Glucose (mg/dL) (75-99) mg/dL Triglycerides 419 H (<150) mg/dL HDL Cholesterol 37 L (40-60) mg/dL Urine Glucose (UA) (Negative) Urine Ketones (Negative) 09/01/17 09/01/17 09/01/17 Range/Units 16:27 21:27 22:50 RBC (3.80-5.40) m/uL Hgb (11.4-16.0) gm/dL Hct (34.0-46.0) % INR 1.2 H (<1.2) Glucose (74-99) mg/dL POC Glucose (mg/dL) 265 H (75-99) mg/dL Triglycerides (<150) mg/dL HDL Cholesterol (40-60) mg/dL Urine Glucose (UA) 4+ H (Negative) Urine Ketones Trace H (Negative) 09/02/17 09/02/17 Range/Units 05:53 11:35 RBC (3.80-5.40) m/uL Hgb (11.4-16.0) gm/dL Hct (34.0-46.0) % INR (<1.2) Glucose (74-99) mg/dL POC Glucose (mg/dL) 272 H 282 H (75-99) mg/dL Triglycerides (<150) mg/dL HDL Cholesterol (40-60) mg/dL Urine Glucose (UA) (Negative) Urine Ketones (Negative) Thrombosis Risk Factor Assmnt - DVT/VTE Prophylaxis DVT/VTE Prophylaxis: Pharmacologic Prophylaxis ordered - Choose All That Apply Any of the Below Risk Factors Present?: Yes Each Factor Represents 1 point: Age 41-60 years Other Risk Factors: No Each Risk Factor Represents 5 Points: Stroke (< 1 month) Thrombosis Risk Factor Assessment Total Risk Factor Score: 6 Thrombosis Risk Factor Assessment Level: High Risk Assessment and Plan Assessment: Right facial numbness and right lower extremities weakness. Due to acute CVA. CT head negative Coronary artery disease with history of 3 stents in last one year Diabetes type 1 Diabetic peripheral neuropathy Familial hypertriglyceridemia Hypertension Hyperlipidemia GERD History of peritonitis 2 Celiac disease Chronic low back pain History of duodenitis/duodenal ulcer Anxiety Currently everyday smoker Patient does have spinal cord stimulator. Plan: patient will be continued on aspirin as per home dose. continue with insulin. Continue the home blood pressure medications and prasugrel. Carotid duplex was ordered. Neurology consult. Further recommendations based on the clinical course. MRI of the head not be possible due to spinal cord stimulator in place. Time with Patient: Greater than 30
[2017-09-02 16:59] LABS: Glucose,Whole Blood 257 mg/dL (75-99)
[2017-09-02] MEDS ORDERED: INSULIN NPH/REG INSULIN 70/30 300 UNIT/3 ML VIAL SQ SCH (17:30)
--- NOTE | 2017-09-02 17:47 | US ---
EXAMINATION TYPE: US carotid duplex BILAT DATE OF EXAM: 09/02/2017 COMPARISON: CLINICAL HISTORY: CVA. Head to toe right side numbness-- did not affect speech or vision. HTN. No h x of TIA EXAM MEASUREMENTS: RIGHT: Peak Systolic Velocity (PSV) cm/sec ----- Right CCA: 65.1 ----- Right ICA: 75.6 ----- Right ECA: 119.8 ICA/CCA ratio: 1.2 RIGHT: End Diastole cm/sec ----- Right CCA: 12.7 ----- Right ICA: 24.1 ----- Right ECA: 12.4 LEFT: Peak Systolic Velocity (PSV) cm/sec ----- Left CCA: 72.1 ----- Left ICA: 73.5 ----- Left ECA: 124.2 ICA/CCA ratio: 1.0 LEFT: End Diastole cm/sec ----- Left CCA: 16.2 ----- Left ICA: 26.3 ----- Left ECA: 7.8 VERTEBRALS (direction of flow): Right Vertebral: Antegrade Left Vertebral: Antegrade Rhythm: Normal Plaque seen in bilateral bulbs. No elevated velocities, significant stenosis. and slight wall thicke leny bilaterally. Grayscale, color Doppler, spectral Doppler imaging performed of the carotid arteries. Waveform analys is does not show significant stenosis. IMPRESSION: No hemodynamic significant stenosis of the proximal internal carotid arteries bilaterall y by Doppler criteria, an indirect measurement of carotid stenosis
--- NOTE | 2017-09-02 19:30 | P.CNNES ---
History of Present Illness Consult date: 09/02/17 Reason for Consult: Patient being evaluated for right-sided weakness and stroke. History of Present Illness: This patient is a 56-year-old right-handed white female who states that she was in her usual state of health 3 days ago and was able to mow her lawn on a tractor. She had completed 5 acres of lawnmowing and when she had come indoors into her home she noted that she was having difficulty with weakness in both of her legs. She did not pay much attention to this thinking she may have overdone the work load. She thought that rest would help and she went to bed and the next day still noted some symptoms of weakness in the right leg as well as numbness. The numbness persisted and she once again felt it would improve with time. The patient symptoms were not improving and in fact the patient felt the right-sided weakness and numbness was now entirely involving her right side only. She was brought into the emergency room yesterday for further evaluation. She was seen in the ER at [facility] by Dr. Bonilla. She was evaluated yesterday and her NIH stroke scale was 3.0 and she was not a candidate for any TPA. She was admitted for further neurological evaluation. She did undergo a computed tomography scan of the brain which revealed no acute intracranial hemorrhage or midline shift. Small vessel ischemic change was noted. She is unable to have MRI of the brain as she has a spinal cord stimulator. The patient initially felt her symptoms may be related to her history of diabetes producing diabetic peripheral neuropathy. Unfortunately her symptoms is only noted on her right side. She was very concerned when the right face arm and leg were all involved at the same time yesterday. The patient states that she is followed in the cardiology clinic for history of coronary artery disease. She has had stents placed to the coronary arteries by Dr. Lock. She has a history of familiar hypertriglyceridemia which is being closely treated by her primary care physician and her audio visual production specialist. She states her last triglyceride blood level was over 2200. Due to her history of coronary artery disease she has been taking Effient for management of coronary disease. She also takes one baby aspirin. The patient states that her symptoms of right-sided numbness today still are persistent. On her neurological exam she does continue to experience right-sided paresthesia and does demonstrate right-sided weakness. On more extensive neurological evaluation she is showing signs of dysmetria on finger-nose testing as well as [id number] testing on her right side. We have recommended the patient to undergo a complete stroke evaluation. Her history is suggesting possibility of cerebellar stroke. She does have hypertriglyceridemia which may be her highest risk factor for stroke. We will have a repeat computed tomography scan of the brain done tomorrow for further evaluation. She will require a full and complete stroke evaluation. We have recommended the patient should be followed up in a specialty lipid clinic at the [facility] for further management of her underlying hypertrigyceridemia. The patient states she has been mentioning this to both of her physicians and still is waiting further recommendation. The patient was upgraded that she is unable to have MRI of the brain due to her spinal cord stimulator. We will obtain the follow- up CAT scan tomorrow for further assessment. We would recommend physical therapy consultation for this patient. Her overall prognosis at this time remains guarded. Neurology is now been consulted for further evaluation and recommendations. Review of Systems Constitutional: Denies chills, Denies fever Eyes: denies blurred vision, denies pain Ears, nose, mouth and throat: Denies headache, Denies sore throat Cardiovascular: Denies chest pain, Denies shortness of breath Respiratory: Denies cough Gastrointestinal: Denies abdominal pain, Denies diarrhea, Denies nausea, Denies vomiting Genitourinary: Denies dysuria, Denies hematuria Musculoskeletal: Denies myalgias Integumentary: Denies pruritus, Denies rash Neurological: Reports balance difficulties, Reports gait dysfunction, Reports lack of coordination, Reports numbness, Reports paresthesias, Reports tingling, Reports weakness Psychiatric: Denies anxiety, Denies depression Endocrine: Denies fatigue, Denies weight change Past Medical History Past Medical History: Diabetes Mellitus, GERD/Reflux, Hyperlipidemia, Hypertension Additional Past Medical History / Comment(s): IDDM type I, pancreatitis X2 ( Last was 05/02), celiac disease, feet neuropathy, chronic low back pain, UTIs, duodenitis/duodenal ulcer, hiatal hernia. History of Any Multi-Drug Resistant Organisms: None Reported Past Surgical History: Back Surgery, Cholecystectomy, Heart Catheterization With Stent, Orthopedic Surgery Additional Past Surgical History / Comment(s): Lumbar fusion, spinal cord stimulator, L knee arthroscopy, EGD, cardiac cath with 3 stents in February 2017 Past Anesthesia/Blood Transfusion Reactions: No Reported Reaction Additional Past Anesthesia/Blood Transfusion Reaction / Comment(s): Never had blood transfusion Date of Last Stent Placement:: 02/2017 Past Psychological History: Anxiety Additional Psychological History / Comment(s): Pt resides with her spouse and their 17 yr old son. She is independent. Smoking Status: Current every day smoker Past Alcohol Use History: None Reported Additional Past Alcohol Use History / Comment(s): Pt is currently trying to quit smoking. Started smoking at age 27. Past Drug Use History: None Reported - Past Family History Father Family Medical History: Liver Disease Additional Family Medical History / Comment(s): Idiopathic cirrhosis of liver Mother Family Medical History: Coronary Artery Disease (CAD) Additional Family Medical History / Comment(s): Multiple stents. Mother at the age of 77 or 78yrs from [place]. Medications and Allergies Home Medications Medication Instructions Recorded Confirmed Type Gabapentin [Neurontin] 300 mg PO DAILY 03/18/14 09/01/17 History Insulin Aspart [NovoLOG See Protocol SQ QID 03/18/14 09/01/17 History (formulary)] Lisinopril [Prinivil] 20 mg PO DAILY 03/18/14 09/01/17 History Atorvastatin [Lipitor] 80 mg PO HS 06/26/16 09/01/17 History DULoxetine HCL [Cymbalta] 60 mg PO HS 06/26/16 09/01/17 History Aspirin 81 mg PO DAILY #30 chew 07/02/16 09/01/17 Rx Nitroglycerin Sl Tabs [Nitrostat] 0.4 mg SUBLINGUAL Q5M PRN #50 tab 07/02/16 Rx Prasugrel [Effient] 10 mg PO DAILY #30 tab 07/02/16 09/01/17 Rx Insulin Glargine [Lantus] 38 unit SQ HS 09/01/16 09/01/17 History Melatonin 3 mg PO HS PRN 09/01/16 09/01/17 History Metoprolol Tartrate 12.5 mg PO BID 09/01/16 09/01/17 History Fenofibrate 160 mg PO AC-BRKFST 03/15/17 09/01/17 History Gabapentin [Neurontin] 900 mg PO HS 05/15/17 09/01/17 History metFORMIN HCL [Glucophage] 1,000 mg PO BID 05/15/17 09/01/17 History HYDROcodone/APAP 5-325MG [[place] 1 tab PO Q6HR PRN #20 tab 05/17/17 09/01/17 Rx 5-325] Pantoprazole Sodium [Protonix] 40 mg PO BID #60 tablet. 05/17/17 09/01/17 Rx Insulin NPH Hum/Reg Insulin Hm 10 unit SQ AC-SUPPER 09/01/17 09/01/17 History [NovoLIN 70-30 100 UNIT/ML VIAL] Insulin NPH Hum/Reg Insulin Hm 15 unit SQ QAM 09/01/17 09/01/17 History [NovoLIN 70-30 100 UNIT/ML VIAL] Isosorbide Mononitrate ER [Imdur] 60 mg PO DAILY 09/01/17 09/01/17 History Allergies Allergy/AdvReac Type Severity Reaction Status Date / Time gluten AdvReac Nausea & Verified 09/01/17 16:36 Vomiting & Diarrhea Physical Examination - Vital Signs Vital Signs: Vital Signs Temp Pulse Resp BP Pulse Ox 09/02/17 15:40 98.3 F 61 18 105/63 97 09/02/17 12:45 97.4 F L 65 18 107/62 93 L 09/02/17 12:00 65 18 09/02/17 07:53 97.8 F 60 18 117/75 94 L 09/02/17 07:50 60 18 09/02/17 04:00 97.5 F L 65 18 114/74 95 09/02/17 00:00 98.0 F 74 18 123/71 98 Intake and Output 09/02/17 09/02/17 09/02/17 06:59 14:59 22:59 Intake Total 800 1180 240 Output Total 400 400 Balance 400 780 240 Intake: IV 700 Sodium Chloride 0.9% 1, 700 000 ml @ 100 mls/hr IV . Q10H [facility] Rx#:[id number] Intake, IV Titration 800 Amount Sodium Chloride 0.9% 1, 800 000 ml @ 100 mls/hr IV . Q10H [facility] Rx#:[id number] Oral 480 240 Output: Urine 400 400 Other: Voiding Method Toilet Toilet Toilet # Voids 1 Weight 70.6 kg - Constitutional General appearance: average body habitus, cooperative - EENT EENT: PERRL, mucous membranes moist - Respiratory Respiratory: lungs clear, normal breath sounds - Cardiovascular Cardiovascular: regular rate, normal S1, normal S2 Extremities: no peripheral edema bilaterally - Gastrointestinal Gastrointestinal: normoactive bowel sounds - Integumentary Integumentary: normal - Neurologic Cranial nerve examination: PERRL, EOMI, VFF, V1/V2/V3 grossly intact, face symmetric, tongue midline, intact gag reflex, intact corneal reflex, normal palatal elevation Speech examination: intact Sensorimotor examination: hemiparesis Detailed motor examination: full strength in all major muscle groups Motor examination - right side: 3/5: biceps, triceps, wrist flexion, 4/5: wrist extension, retail sales associate, hip flexors, knee extensors, dorsiflexion, toe extension (EHL) , plantarflexion Motor examination - left side: 4/5: biceps, triceps, wrist flexion, wrist extension, retail sales associate, hip flexors, knee extensors, dorsiflexion, toe extension (EHL) , plantarflexion Detailed sensory examination: intact Reflex and gait examination: intact Reflexes: 1+: ankle, bicep, knee, tricep Cerebellar examination: dysmetria - Musculoskeletal Musculoskeletal: no pain - Psychiatric Psychiatric: mood/affect appropriate, cooperative Results - Laboratory Findings CBC and BMP: 09/01/17 16:26 09/01/17 16:26 Abnormal Lab Findings: Abnormal Labs 09/01/17 09/01/17 09/01/17 16:26 16:26 16:26 RBC 5.67 H Hgb 17.1 H Hct 48.2 H INR Glucose 306 H POC Glucose (mg/dL) Triglycerides 419 H HDL Cholesterol 37 L Urine Glucose (UA) Urine Ketones 09/01/17 09/01/17 09/01/17 16:27 21:27 22:50 RBC Hgb Hct INR 1.2 H Glucose POC Glucose (mg/dL) 265 H Triglycerides HDL Cholesterol Urine Glucose (UA) 4+ H Urine Ketones Trace H 09/02/17 09/02/17 09/02/17 05:53 11:35 16:51 RBC Hgb Hct INR Glucose POC Glucose (mg/dL) 272 H 282 H 257 H Triglycerides HDL Cholesterol Urine Glucose (UA) Urine Ketones Assessment and Plan (1) Acute arterial ischemic stroke, vertebrobasilar, cerebellar Current Visit: Yes Status: Acute Code(s): I63.29 - CEREBRAL INFRC DUE TO UNSP OCCLS OR STENOSIS OF PRECERB ART SNOMED Code(s): 894355589 (2) Hypertriglyceridemia Current Visit: No Status: Acute Code(s): E78.1 - PURE HYPERGLYCERIDEMIA SNOMED Code(s): 821268433 (3) History of lumbar fusion Current Visit: Yes Status: Acute Code(s): Z98.1 - ARTHRODESIS STATUS SNOMED Code(s): 340929076 (4) Spinal cord stimulator status Current Visit: Yes Status: Acute Code(s): Z96.89 - PRESENCE OF OTHER SPECIFIED FUNCTIONAL IMPLANTS SNOMED Code(s): 231558263 (5) Coronary artery disease Current Visit: Yes Status: Acute Code(s): I25.10 - ATHSCL HEART DISEASE OF [place] CORONARY ARTERY W/O ANG PCTRS SNOMED Code(s): 70215548 Plan: This patient is a 56-year-old right-handed white female who was admitted to [facility] yesterday with symptoms of right-sided numbness and weakness. Her initial computed tomography scan of the brain performed yesterday failed to reveal any acute changes. She was not a candidate for TPA after her initial evaluation in the ER yesterday by Dr. Bonilla. Her NIH stroke scale was 3.0. She was admitted to hospital for further evaluation. She continues to mention symptoms of right-sided paresthesia which has improved since yesterday but still present. She also shows signs of dysmetria on finger- nose testing and [id number] testing on her right side. These findings suggest possibility of cerebellar stroke. We've recommended she undergo a complete stroke evaluation. She is unable to have MRI of the brain due to a spinal cord stimulator in her back. We will obtain a follow-up computed tomography scan of the brain tomorrow for further assessment. Would recommend cardiology consultation for further management of her hypertriglyceridemia. We will continue close neurological follow-up for the patient. She is to continue on current medications which include Effient and one baby aspirin. Her overall prognosis at this time remains very guarded. Time with Patient: Greater than 30
[2017-09-02 21:05] LABS: Glucose,Whole Blood 320 mg/dL (75-99)
[2017-09-02] MEDS: MELATONIN 3 MG TABLET PO PRN (22:11)
[2017-09-02] MEDS: DULoxetine HCL 60 MG CAPSULE.DR PO SCH (22:11)
[2017-09-02] MEDS: INSULIN DETEMIR 100 UNIT/ML 10 ML VIAL SQ SCH ×2 (22:11→22:44)
[2017-09-02] MEDS: ATORVASTATIN 80 MG TAB PO SCH (22:11)
[2017-09-03] MEDS: HYDROcodone/APAP 5-325MG 1 EACH TAB PO PRN ×2 (03:13→11:55)
[2017-09-03] MEDS: SODIUM CHLORIDE 0.9% 1,000 ML IV SCH ×2 (06:11→12:35)
[2017-09-03 06:22] LABS: Glucose,Whole Blood 299 mg/dL (75-99)
[2017-09-03] MEDS: FENOFIBRATE 160 MG TAB PO SCH (06:27)
[2017-09-03] MEDS: INSULIN ASPART 100 UNIT/ML 1 ML 10 ML VIAL SQ SCH ×2 (06:27→11:53)
[2017-09-03] MEDS: METOPROLOL TARTRATE 12.5 MG TAB PO SCH (08:57)
[2017-09-03] MEDS: LISINOPRIL 20 MG TAB PO SCH (08:57)
[2017-09-03] MEDS: ASPIRIN 325 MG TAB PO SCH (08:57)
[2017-09-03] MEDS: ISOSORBIDE MONONITRATE ER 60 MG TAB.ER.24H PO SCH (08:57)
[2017-09-03] MEDS: GABAPENTIN 300 MG CAP PO SCH (08:57)
[2017-09-03] MEDS: INSULIN NPH/REG INSULIN 70/30 300 UNIT/3 ML VIAL SQ SCH (08:58)
[2017-09-03] MEDS: PRASUGREL 10 MG TAB PO SCH (08:58)
[2017-09-03] MEDS: metFORMIN 500 MG TAB PO SCH (08:58)
[2017-09-03] MEDS: PANTOPRAZOLE 40 MG TABLET PO SCH (08:58)
[2017-09-03 09:08] VITALS: TEMP 97.4
[2017-09-03 11:24] LABS: Glucose,Whole Blood 312 mg/dL (75-99)
--- NOTE | 2017-09-03 11:52 | CT ---
EXAMINATION TYPE: CT brain wo con DATE OF EXAM: 09/03/2017 COMPARISON: 09/01/2017 HISTORY: Rt sided weakness, follow up to prior CT brain CT DLP: 964 mGycm. Automated Exposure Control for Dose Reduction was Utilized. TECHNIQUE: CT scan of the head is performed without contrast. FINDINGS: There is no acute intracranial hemorrhage, mass effect, or midline shift identified. Dys trophic calcifications are seen within the basal ganglia. Extensive atherosclerosis is seen of the in tracranial vasculature. Few scattered areas of hypoattenuation are seen within the periventricular an d subcortical white matter most commonly related to sequela of microangiopathy. Similar-appearing pro bable lacunar injury seen of the left thalamus on series 3 image 27. The ventricles and sulci are wit hin normal limits in size. Scant mucosal thickening is seen within the right maxillary sinus. The bryan bes are intact and the remaining visualized sinuses are clear. IMPRESSION: 1. No acute intracranial process. 2. Unchanged left thalamic lacunar injury in comparison to the prior of 09/01/2017, likely old.
[2017-09-03 11:53] VITALS: PULSE 62
[2017-09-03 11:55] LABS: Glucose,Whole Blood 279 mg/dL (75-99)
--- NOTE | 2017-09-03 15:07 | P.PN ---
Subjective 56-year-old admitted for left-sided weakness for a and numbness. Weakness completely resolved but she still comparing of some numbness patient cannot get an MRI because of her spinal cord stimulator. Although repeat CAT scan only showed old lacunar stroke this CAT scan was done the days after the onset of symptoms. Clinically patient's symptoms except for numbness resolved. There is no and if objective evidence of stroke at this time. Although patient is already on dual antiplatelet therapy for coronary artery disease and a high dose of statin. Patient continues to smoke extensive counseling regarding this was provided patient is not requiring any physical therapy. Regarding her hyperlipidemia dietary counseling was provided., Patient need to follow with PCP if her LDL is still not controlled and still not below 70 with dietary management patient may need second medication for hyperlipidemia. Patient will be discharged today if cleared by neurology. Carotid Doppler did not show significant stenosis that will need intervention like carotid endarterectomy. I 'm increasing the morning dose of insulin from 15-20 as her blood sugars are not well-controlled. PHYSICAL EXAMINATION: GENERAL: The patient is alert and oriented x3, not in any acute distress. Well developed, well nourished. HEENT: Pupils are round and equally reacting to light. EOMI. No scleral icterus. No conjunctival pallor. Normocephalic, atraumatic. No pharyngeal erythema. No thyromegaly. CARDIOVASCULAR: S1 and S2 present. No murmurs, rubs, or gallops. PULMONARY: Chest is clear to auscultation, no wheezing or crackles. ABDOMEN: Soft, nontender, nondistended, normoactive bowel sounds. No palpable organomegaly. MUSCULOSKELETAL: No joint swelling or deformity. EXTREMITIES: No cyanosis, clubbing, or pedal edema. NEUROLOGICAL: Gross neurological examination did not reveal any focal deficits. And the exam was not done SKIN: No rashes. For all her other chronic medical problems and hospitalization course please refer to H&P from Dr. Diaz. Objective - Vital Signs Vital signs: Vital Signs Temp 97.4 F L 09/03/17 11:53 Pulse 62 09/03/17 12:00 Resp 18 09/03/17 12:00 BP 140/72 09/03/17 11:53 Pulse Ox 92 L 09/03/17 11:53 Intake & Output 09/02/17 09/03/17 09/03/17 18:59 06:59 18:59 Intake Total 7622 035 2127 Output Total 400 Balance 3209 078 7078 Weight 73.3 kg Intake: IV 700 800 10 Invasive Line 1 10 Sodium Chloride 0.9% 1, 700 800 000 ml @ 100 mls/hr IV . Q10H [facility] Rx#:[id number] Oral 720 1100 Output: Urine 400 Other: Voiding Method Toilet Toilet Toilet # Voids 1 - Labs CBC & Chem 7: 09/01/17 16:26 09/01/17 16:26 Labs: Abnormal Lab Results - Last 24 Hours (Table) 09/02/17 09/02/17 09/03/17 Range/Units 16:51 21:04 06:21 POC Glucose (mg/dL) 257 H 320 H 299 H (75-99) mg/dL 09/03/17 09/03/17 Range/Units 11:14 11:41 POC Glucose (mg/dL) 312 H 279 H (75-99) mg/dL
[2017-09-03 16:15] VITALS: BP 133/73; RESP 16
[2017-09-03 18:18] LABS: Hemoglobin A1C 10.2 % (4.0-6.0)
--- NOTE | 2017-09-13 15:50 | P.DS ---
Providers Date of admission: 09/01/17 19:20 Expected date of discharge: 09/05/17 Attending physician: Te Diaz Consults: 09/01/17 19:21 Consult Physician Routine Consulting Provider: Ronni De Jesus Consult Reason/Comments: CVA 3 days ago Do you want consulting provider notified?: Yes Primary care physician: [facility] Course: Please refer to the progress note from the same date Patient Condition at Discharge: Stable Plan - Discharge Summary New Discharge Prescriptions: Continue Gabapentin [Neurontin] 300 mg PO DAILY Insulin Aspart [NovoLOG (formulary)] See Protocol SQ QID Lisinopril [Prinivil] 20 mg PO DAILY DULoxetine HCL [Cymbalta] 60 mg PO HS Atorvastatin [Lipitor] 80 mg PO HS Aspirin 81 mg PO DAILY #30 chew Nitroglycerin Sl Tabs [Nitrostat] 0.4 mg SUBLINGUAL Q5M PRN #50 tab PRN Reason: Chest Pain Prasugrel [Effient] 10 mg PO DAILY #30 tab Insulin Glargine [Lantus] 38 unit SQ HS Metoprolol Tartrate 12.5 mg PO BID Melatonin 3 mg PO HS PRN PRN Reason: sleep Fenofibrate 160 mg PO AC-BRKFST Gabapentin [Neurontin] 900 mg PO HS metFORMIN HCL [Glucophage] 1,000 mg PO BID Pantoprazole Sodium [Protonix] 40 mg PO BID #60 tablet. HYDROcodone/APAP 5-325MG [[place] 5-325] 1 tab PO Q6HR PRN #20 tab PRN Reason: Pain Isosorbide Mononitrate ER [Imdur] 60 mg PO DAILY Insulin NPH Hum/Reg Insulin Hm [NovoLIN 70-30 100 UNIT/ML VIAL] 15 unit SQ QAM Changed Insulin NPH Hum/Reg Insulin Hm [NovoLIN 70-30 100 UNIT/ML VIAL] 15 unit SQ AC -SUPPER #0 Discharge Medication List Gabapentin [Neurontin] 300 mg PO DAILY 03/18/14 [History] Insulin Aspart [NovoLOG (formulary)] See Protocol SQ QID 03/18/14 [History] Lisinopril [Prinivil] 20 mg PO DAILY 03/18/14 [History] Atorvastatin [Lipitor] 80 mg PO HS 06/26/16 [History] DULoxetine HCL [Cymbalta] 60 mg PO HS 06/26/16 [History] Aspirin 81 mg PO DAILY #30 chew 07/02/16 [Rx] Nitroglycerin Sl Tabs [Nitrostat] 0.4 mg SUBLINGUAL Q5M PRN #50 tab 07/02/16 [Rx ] Prasugrel [Effient] 10 mg PO DAILY #30 tab 07/02/16 [Rx] Insulin Glargine [Lantus] 38 unit SQ HS 09/01/16 [History] Melatonin 3 mg PO HS PRN 09/01/16 [History] Metoprolol Tartrate 12.5 mg PO BID 09/01/16 [History] Fenofibrate 160 mg PO AC-BRKFST 03/15/17 [History] Gabapentin [Neurontin] 900 mg PO HS 05/15/17 [History] metFORMIN HCL [Glucophage] 1,000 mg PO BID 05/15/17 [History] HYDROcodone/APAP 5-325MG [[place] 5-325] 1 tab PO Q6HR PRN #20 tab 05/17/17 [Rx] Pantoprazole Sodium [Protonix] 40 mg PO BID #60 tablet. 05/17/17 [Rx] Insulin NPH Hum/Reg Insulin Hm [NovoLIN 70-30 100 UNIT/ML VIAL] 15 unit SQ QAM 09/01/17 [History] Isosorbide Mononitrate ER [Imdur] 60 mg PO DAILY 09/01/17 [History] Insulin NPH Hum/Reg Insulin Hm [NovoLIN 70-30 100 UNIT/ML VIAL] 15 unit SQ AC- SUPPER #0 09/03/17 [Rx] Follow up Appointment(s)/Referral(s): Ronni De Jesus MD [STAFF PHYSICIAN] - 10/04/17 10:15 am () Kiran Phelps DO [Primary Care Provider] - 09/11/17 2:00 pm Patient Instructions/Handouts: Transient Ischemic Attack (DC) Discharge Disposition: HOME SELF-CARE
--- NOTE | 2017-09-17 13:31 | CDI ---
Last Revision, January 2017 Documentation Clarification Form Date: 09/17/17 From: LUÍS Santiago Phone: If you have question, contact Ines Reyes Senior Electronics Engineer at [phone] M-F 8:30 am to 6pm Admit Date: 09/01/2017 7:20:00 PM Patient Name: Mary Jo Caldwell Visit Number: [id number] Discharge Date: 09/03/17 ATTENTION: The Clinical Documentation Specialists (CDI) and [facility] Coding Staff appreciate your assistance in clarifying documentation. Please respond to the clarification below the line at the bottom and electronically sign. The CDI & [facility] Coding staff will review the response and follow-up if needed. Please note: Queries are made part of the Legal Health Record. If you have any questions, please contact the author of this message via ITS. Dr. Oc Esparza Per the ED NOTE the patient was admitted with Right facial numbness and R leg weakness. Per the consultation and H&P, the patient indicated she felt the symptoms may be related to her diabetes with peripheral neuropathy. She was given a full and complete stroke evaluation. Her 2 brain CTs showed no acute intracranial process and a left thalamic lacunar injury, which is likely old. Per the Discharge Summary for Hospital Course it states Refer to progress note from same date. Also, a TIA handout/instructions was given at discharge. Progress note dated day of discharge 09/03/17 states There is no evidence of stroke at this time. The diagnosis of TIA needs clarification for proper reporting purposes. Please clarify: TIA ruled in TIA ruled out Other (please specify) Clinically unable to determine Thank you for your time. No stroke or TIA and was documented in the note. SARAH
== END 2017-09-03 17:59 | disposition home or self-care (01) | DRG 948 ==
LOC: EC 15:40 → 6SEL 19:20
PROVIDERS: ADMIT Internal Medicine; ATTEND Internal Medicine
DX: R53.1 Weakness (principal); R20.2 Paresthesia of skin; R20.0 Anesthesia of skin; I25.10 Atherosclerotic heart disease of native coronary artery without angina pectoris; E78.5 Hyperlipidemia, unspecified; Z53.09 Procedure and treatment not carried out because of other contraindication; I10 Essential (primary) hypertension; F17.200 Nicotine dependence, unspecified, uncomplicated; R29.703 NIHSS score 3; E10.42 Type 1 diabetes mellitus with diabetic polyneuropathy; M54.5 Low back pain; G89.29 Other chronic pain; K21.9 Gastro-esophageal reflux disease without esophagitis; F41.9 Anxiety disorder, unspecified; K90.0 Celiac disease; E78.1 Pure hyperglyceridemia; Z82.49 Family history of ischemic heart disease and other diseases of the circulatory system; Z71.3 Dietary counseling and surveillance; Z71.6 Tobacco abuse counseling; Z95.5 Presence of coronary angioplasty implant and graft; Z98.890 Other specified postprocedural states; Z79.4 Long term (current) use of insulin; Z79.899 Other long term (current) drug therapy; Z87.440 Personal history of urinary (tract) infections; Z90.49 Acquired absence of other specified parts of digestive tract
CPT/HCPCS: 36415; 70450; 80053; 80061; 81003; 82550; 82553; 83036; 83735; 84484; 85025; 85610; 85730; 93005; 93880; 94760; 99285; 99406

== ENCOUNTER 2017-10-10 12:15 | Day surgery (SDC) | payer MEDICARE ==
[2017-10-08 09:05] VITALS: BMI 23.4
[2017-10-10] MEDS ORDERED: SODIUM CHLORIDE 0.9% 1,000 ML IV ONE (13:23)
[2017-10-10 13:45] VITALS: RESP 16; TEMP 98.1
[2017-10-10] MEDS ORDERED: MIDAZOLAM 2 MG/2 ML VIAL ONE (13:50)
[2017-10-10] MEDS ORDERED: fentaNYL (PF) 50 MCG/ML 2 ML AMP ONE (13:50)
[2017-10-10] MEDS: BENZOCAINE SPRAY 1 CAN TOPICAL ONE ×2 (13:53→13:56)
[2017-10-10] MEDS ORDERED: MIDAZOLAM 2 MG/2 ML VIAL IVP ONE ×2 (13:55→13:59)
[2017-10-10] MEDS ORDERED: fentaNYL (PF) 50 MCG/ML 2 ML AMP IVP ONE (13:55)
--- NOTE | 2017-10-10 14:45 | ECHOT ---
TRANSESOPHAGEAL ECHOCARDIOGRAM DATE OF SERVICE: October 10, 2017 PERFORMING PHYSICIAN: Vipul Lock MD, wire inserter. PROCEDURE PERFORMED: Transesophageal echocardiogram. INDICATION: This is a pleasant 56-year-old female patient with history of coronary artery disease and prior coronary artery stenting as well as significant history of smoking, who suffered from stroke recently. The transesophageal echocardiogram is to rule out any cardiac source of embolization. COMPLICATION: None. LEVEL OF SEDATION: Moderate with sedation length of 10 minutes. PROCEDURE DESCRIPTION: After obtaining an informed consent, explaining the procedure, benefits, risks, complications and alternatives, the patient was brought to the transesophageal echocardiogram suite. A pulse oximetry and heart rate monitors were attached to the patient prior to the procedure. The patient's throat was sprayed using lidocaine locally. Following that, the patient was turned into left lateral position. A bite guard was placed and the patient was then sedated with the above doses of Versed and fentanyl in divided doses. Following that, the transesophageal echocardiogram probe was advanced through the bite guard into the mid esophagus where 2-D echocardiogram images as well as color Doppler images of various cardiac structures were obtained. We evaluated the interatrial septum using 2-D echocardiogram, color Doppler, and contrast study. The procedure was completed. There were no complications. FINDING: The left ventricular dimension and systolic function appeared to be within normal limits. The ejection fraction appeared to be in the range of 50%. The right ventricle is of normal size and function. The left atrium appeared to be within normal limits for dimension. The left atrial appendage appeared to be free from any thrombus. The interatrial septum appeared to be hyperdynamic without any evidence of patent [place]ue [place]. The aortic valve is trileaflet valve without stenosis or regurgitation. The mitral valve seems to be mildly thickened with trace MR. Normal tricuspid valve and pulmonic valve. CONCLUSION: 1. There is no evidence of cardiac source of embolization. 2. Hyperdynamic interatrial septum without any evidence of shunt. 3. Normal left atrial appendage without any evidence of thrombus. 4. Normal left ventricular dimension and systolic function. 5. Normal cardiac chamber sizes. 6. Normal intracardiac valves. 7. Normal aortic root dimension. 8. No evidence of pericardial effusion. MMODL / IJN: [id number] /
[2017-10-10 16:44] VITALS: BP 101/62; PULSE 70
[2017-10-10 17:06] LABS: Glucose,Whole Blood 380 mg/dL (75-99)
== END 2017-10-10 15:37 | disposition home or self-care (01) ==
LOC: CATHCVL 12:15
PROVIDERS: ATTEND Internal Medicine Interventional Cardiology
DX: I25.10 Atherosclerotic heart disease of native coronary artery without angina pectoris (principal); I10 Essential (primary) hypertension; E78.5 Hyperlipidemia, unspecified; Z95.5 Presence of coronary angioplasty implant and graft; E11.9 Type 2 diabetes mellitus without complications; Z86.73 Personal history of transient ischemic attack (TIA), and cerebral infarction without residual deficits; Z87.891 Personal history of nicotine dependence; Z79.82 Long term (current) use of aspirin; Z79.4 Long term (current) use of insulin; Z79.899 Other long term (current) drug therapy
CPT/HCPCS: 93312; 93320; 93325; J2250; J3010

== ENCOUNTER 2018-05-21 23:15 | Emergency (ER) | payer MEDICARE ==
[2018-05-21 23:49] LABS: Glucose,Whole Blood 465 mg/dL (75-99)
[2018-05-21 23:59] LABS: Basophils # (A) 0.1 k/uL (0-0.2); Basophils % (A) 1 %; Eosinophils # (A) 0.2 k/uL (0-0.7); Eosinophils % (A) 2 %; HGB 15.5 gm/dL (11.4-16.0); Lymphocytes # (A) 2.6 k/uL (1.0-4.8); Lymphocytes % (A) 34 %; MCHC 33.8 g/dL (31.0-37.0); MCV 85.8 fL (80.0-100.0); Mean Platelet Volume 7.5; Monocytes # (A) 0.4 k/uL (0-1.0); Monocytes % (A) 5 %; Neutrophils # (A) 4.2 k/uL (1.3-7.7); Neutrophils % (A) 56 %; Platelet Count 197 k/uL (150-450); RBC 5.36 m/uL (3.80-5.40); RDW 14.6 % (11.5-15.5); WBC 7.5 k/uL (3.8-10.6)
[2018-05-22] MEDS ORDERED: KETOROLAC 30 MG/ML 1 ML VIAL IVP STA (00:06)
[2018-05-22] MEDS ORDERED: METOCLOPRAMIDE 5 MG/ML 2 ML VIAL IVP STA (00:06)
[2018-05-22] MEDS ORDERED: DEXAMETHASONE SOD PHOSPHATE 10 MG/ML 1 ML VIAL IV STA (00:06)
--- NOTE | 2018-05-22 00:06 | ED ---
General Adult HPI - General Chief complaint: Weakness Stated complaint: Neuro deficit Time Seen by Provider: 05/21/18 23:26 Source: patient, family Mode of arrival: ambulatory Limitations: physical limitation - History of Present Illness Initial comments: This 57-year-old white female presents with a complaint of some right sided upper extremity heaviness. She states that her right arm does feel slightly weak as well. She states that she developed a slight headache and then also had some right eye blurriness. Her speech seemed somewhat slurred at one point but this has resolved. She also has a history of a previous stroke with some subsequent right-sided weakness. She states that her symptoms feel somewhat worse currently as her right arm feels heavier than normal. She states that her right eye blurriness only lasted a few minutes and then resolved. No other complaints or modifying factors. There is no shortness of breath chest pain fever chills. She relates that the symptom onset was at 8 PM and she presents to her facility after 11 PM. She later complains of a sore present to the distal aspect of the left large toe which is been chronic for her. This is on the plantar surface. He does not see a lace mender - Related Data Home Medications Medication Instructions Recorded Confirmed Gabapentin [Neurontin] 300 mg PO QAM 03/18/14 10/10/17 INSULIN ASPART (NovoLOG) [NovoLOG See Protocol SQ QID 03/18/14 10/10/17 (formulary)] Lisinopril [Prinivil] 20 mg PO HS 03/18/14 10/10/17 Atorvastatin [Lipitor] 80 mg PO HS 06/26/16 10/10/17 DULoxetine HCL [Cymbalta] 60 mg PO HS 06/26/16 10/10/17 Insulin Glargine [Lantus] 38 unit SQ HS 09/01/16 10/10/17 Melatonin 3 mg PO HS PRN 09/01/16 10/10/17 Metoprolol Tartrate 12.5 mg PO BID 09/01/16 10/10/17 Fenofibrate 160 mg PO HS 03/15/17 10/10/17 Gabapentin [Neurontin] 900 mg PO HS 05/15/17 10/10/17 metFORMIN HCL [Glucophage] 1,000 mg PO BID 05/15/17 10/10/17 Insulin NPH Hum/Reg Insulin Hm 15 unit SQ QAM 09/01/17 10/10/17 [NovoLIN 70-30 100 UNIT/ML VIAL] Isosorbide Mononitrate ER [Imdur] 60 mg PO QAM 09/01/17 10/10/17 Aspirin 81 mg PO QAM 10/08/17 10/10/17 Prasugrel [Effient] 10 mg PO QAM 10/08/17 10/10/17 Previous Rx's Medication Instructions Recorded Nitroglycerin Sl Tabs [Nitrostat] 0.4 mg SUBLINGUAL Q5M PRN #50 tab 07/02/16 HYDROcodone/APAP 5-325MG [[place] 1 tab PO Q6HR PRN #20 tab 05/17/17 5-325] Pantoprazole Sodium [Protonix] 40 mg PO BID #60 tablet. 05/17/17 Insulin NPH Hum/Reg Insulin Hm 15 unit SQ AC-SUPPER #0 09/03/17 [NovoLIN 70-30 100 UNIT/ML VIAL] Allergies Allergy/AdvReac Type Severity Reaction Status Date / Time gluten AdvReac Nausea & Verified 10/08/17 08:49 Vomiting & Diarrhea Review of Systems ROS Statement: Those systems with pertinent positive or pertinent negative responses have been documented in the HPI. ROS Other: All systems not noted in ROS Statement are negative. Past Medical History Past Medical History: CVA/TIA, Diabetes Mellitus, GERD/Reflux, Hyperlipidemia, H ypertension Additional Past Medical History / Comment(s): IDDM type I, pancreatitis X2 (Last was 05/02), celiac disease, feet neuropathy, chronic low back pain, UTIs, duodenitis/duodenal ulcer, hiatal hernia. History of Any Multi-Drug Resistant Organisms: None Reported Past Surgical History: Back Surgery, Cholecystectomy, Heart Catheterization With Stent, Orthopedic Surgery Additional Past Surgical History / Comment(s): Lumbar fusion, spinal cord stimulator, L knee arthroscopy, EGD, cardiac cath with 3 stents in February 2017 Past Anesthesia/Blood Transfusion Reactions: No Reported Reaction Additional Past Anesthesia/Blood Transfusion Reaction / Comment(s): Never had blood transfusion Date of Last Stent Placement:: 02/2017 Past Psychological History: Anxiety Smoking Status: Current every day smoker Past Alcohol Use History: None Reported Past Drug Use History: None Reported - Past Family History Father Family Medical History: Liver Disease Additional Family Medical History / Comment(s): Idiopathic cirrhosis of liver Mother Family Medical History: Coronary Artery Disease (CAD) Additional Family Medical History / Comment(s): Multiple stents. Mother at the age of 77 or 78yrs from [place]. General Exam - General Exam Comments Initial Comments: GENERAL: The patient is well nourished and well hydrated. VITAL SIGNS: Heart rate, blood pressure, respiratory rate reviewed as recorded in nurse's notes. EYES: Pupils are round and reactive. Extraocular movements are intact. No conjunctival / lid redness or swelling. ENT: No external evidence of injury, swelling, or ecchymosis. Airway is patent. Throat is clear. NECK: Nontender. No swelling or evidence of injury. No subcutaneous emphysema. Trachea is midline. No thyroid mass. HEART: Regular rate and rhythm. Good peripheral pulses. LUNGS/CHEST: Breath sounds clear and equal bilaterally. No rales, rhonchi, or wheezes. No ecchymosis, subcutaneous emphysema, or tenderness. ABDOMEN: Abdomen soft without tenderness. No palpable masses or organomegaly. No peritoneal signs. No abdominal wall swelling or ecchymosis. EXTREMITIES: No extremity tenderness. No thoracolumbar tenderness. NEUROLOGIC: Sensation is grossly intact. Cranial nerve exam reveals face is symmetrical, tongue is midline, speech is clear. There may be some slight weakness of the right upper extremity as compared to the left. No facial droop noted. SKIN: No abrasions or ecchymosis is noted. No induration or masses noted. There is a slight area of excoriation noted to the plantar aspect of the left large toe. There is no erythema or signs of infection or drainage. Limitations: physical limitation Course Vital Signs 05/21/18 05/21/18 23:25 23:39 Temperature 98.4 F 98.7 F Pulse Rate 97 78 Respiratory 16 16 Rate Blood Pressure 159/101 148/108 O2 Sat by Pulse 97 96 Oximetry Medical Decision Making - Medical Decision Making The patient was seen and examined. All diagnostics were reviewed. The EKG shows a normal sinus rhythm at a rate of 94. There is no acute ST-T wave changes identified. The UT intervals 144, QRS duration is 76, and the QTC intervals 455. An IV is started. She does receive some Reglan, Neurontin, and Toradol for the possibility of an atypical migraine headache. Her labs are reviewed and does show evidence of hyperglycemia. She received 12 units of subcutaneous insulin. The computed tomography scan of the brain does not show any acute process. There is evidence of an old lacunar infarct which is unchanged. She also had his angiogram of the head and neck and this does not show any significant abnormalities. It does show a small pulmonary nodule. The patient is informed of this and he is instructed to follow-up with her primary care physician and monitoring. Her chronic due to his arrest and antibiotic ointment is applied. She is instructed to follow-up with a lace mender this regard. The exact cause of the patient's symptoms are not definitively determined. It is felt as though this could be related to a neurologic event although it is hard to differentiate. She has no decreased or no weakness to the right arm. She just describes more of a feeling of heaviness. She does have a history of previous stroke with some slight weakness of the right arm. Her visual and speech symptoms have completely resolved. We do not have neurology at our facility and therefore she is offered transfer to [facility] for further neurologic evaluation. She refuses stating that she would prefer to follow-up closely with a local neurologist. She states that she has seen Dr. De Jesus in the past but would like to follow-up with her neurologist and she will be given the number to another neurologist in the area. She'll he is on an aspirin as well as Effient. He subsequently discharge. Return parameters are discussed. She is also counseled regarding smoking. - Lab Data Result diagrams: 05/21/18 23:27 05/21/18 23:27 Lab Results 05/21/18 05/21/18 05/21/18 Range/Units 23:27 23:27 23:27 WBC 7.5 (3.8-10.6) k/uL RBC 5.36 (3.80-5.40) m/uL Hgb 15.5 (11.4-16.0) gm/dL Hct 46.0 (34.0-46.0) % MCV 85.8 (80.0-100.0) fL MCH 29.0 (25.0-35.0) pg MCHC 33.8 (31.0-37.0) g/dL RDW 14.6 (11.5-15.5) % Plt Count 197 (150-450) k/uL Neutrophils % 56 % Lymphocytes % 34 % Monocytes % 5 % Eosinophils % 2 % Basophils % 1 % Neutrophils # 4.2 (1.3-7.7) k/uL Lymphocytes # 2.6 (1.0-4.8) k/uL Monocytes # 0.4 (0-1.0) k/uL Eosinophils # 0.2 (0-0.7) k/uL Basophils # 0.1 (0-0.2) k/uL PT 10.1 (9.0-12.0) sec INR 0.9 (<1.2) APTT 22.8 (22.0-30.0) sec Sodium 137 (137-145) mmol/L Potassium 4.1 (3.5-5.1) mmol/L Chloride 98 (98-107) mmol/L Carbon Dioxide 25 (22-30) mmol/L Anion Gap 14 mmol/L BUN 12 (7-17) mg/dL Creatinine 0.57 (0.52-1.04) mg/dL Est GFR (CKD-EPI)AfAm >90 (>60 ml/min/1.73 sqM) Est GFR (CKD-EPI)NonAf >90 (>60 ml/min/1.73 sqM) Glucose 445 H (74-99) mg/dL POC Glucose (mg/dL) (75-99) mg/dL POC Glu Design Maker ID Calcium 9.9 (8.4-10.2) mg/dL Total Bilirubin 0.6 (0.2-1.3) mg/dL AST 21 (14-36) U/L ALT 26 (9-52) U/L Alkaline Phosphatase 74 (38-126) U/L Troponin I (0.000-0.034) ng/mL Total Protein 7.0 (6.3-8.2) g/dL Albumin 4.3 (3.5-5.0) g/dL 05/21/18 05/21/18 Range/Units 23:27 23:28 WBC (3.8-10.6) k/uL RBC (3.80-5.40) m/uL Hgb (11.4-16.0) gm/dL Hct (34.0-46.0) % MCV (80.0-100.0) fL MCH (25.0-35.0) pg MCHC (31.0-37.0) g/dL RDW (11.5-15.5) % Plt Count (150-450) k/uL Neutrophils % % Lymphocytes % % Monocytes % % Eosinophils % % Basophils % % Neutrophils # (1.3-7.7) k/uL Lymphocytes # (1.0-4.8) k/uL Monocytes # (0-1.0) k/uL Eosinophils # (0-0.7) k/uL Basophils # (0-0.2) k/uL PT (9.0-12.0) sec INR (<1.2) APTT (22.0-30.0) sec Sodium (137-145) mmol/L Potassium (3.5-5.1) mmol/L Chloride (98-107) mmol/L Carbon Dioxide (22-30) mmol/L Anion Gap mmol/L BUN (7-17) mg/dL Creatinine (0.52-1.04) mg/dL Est GFR (CKD-EPI)AfAm (>60 ml/min/1.73 sqM) Est GFR (CKD-EPI)NonAf (>60 ml/min/1.73 sqM) Glucose (74-99) mg/dL POC Glucose (mg/dL) 465 H (75-99) mg/dL POC Glu Design Maker ID Masha Dexter Calcium (8.4-10.2) mg/dL Total Bilirubin (0.2-1.3) mg/dL AST (14-36) U/L ALT (9-52) U/L Alkaline Phosphatase (38-126) U/L Troponin I <0.012 (0.000-0.034) ng/mL Total Protein (6.3-8.2) g/dL Albumin (3.5-5.0) g/dL Disposition Clinical Impression: HTN (hypertension), Diabetes, Right arm weakness, History of CVA (cerebrovascular accident), Hyperglycemia, Diabetic ulcer of left great toe Disposition: HOME SELF-CARE Condition: Good Instructions (If sedation given, give patient instructions): Transient Ischemic Attack (ED), Hypertension (ED), Diabetic Foot Ulcers (ED), Foot Care for People with Diabetes (ED), Diabetic Hyperglycemia (ED) Is patient prescribed a controlled substance at d/c from ED?: No Referrals: McPhilimy,Kiran, DO [Primary Care Provider] - 1-2 days Kiran Thornton DPM [STAFF PHYSICIAN] - 1-2 days Sandra Workman MD [Medical Doctor] - 1-2 days Time of Disposition: 01:12
[2018-05-22 00:21] LABS: ALT 26 U/L (9-52); AST 21 U/L (14-36); Albumin 4.3 g/dL (3.5-5.0); Alkaline Phosphatase 74 U/L (38-126); Anion Gap 14 mmol/L; Blood Urea Nitrogen 12 mg/dL (7-17); Calcium 9.9 mg/dL (8.4-10.2); Carbon Dioxide 25 mmol/L (22-30); Chloride 98 mmol/L (98-107); Glucose 445 mg/dL (74-99); Potassium 4.1 mmol/L (3.5-5.1); Sodium 137 mmol/L (137-145); Total Bilirubin 0.6 mg/dL (0.2-1.3)
--- NOTE | 2018-05-22 00:22 | CT ---
History: ITS.REASON CT Reason: Neuro Deficits Exam: CT HEAD Without Contrast Technique more: CTDI is 43.5 mGy and DLP is 1014 mGy-cm. Technique more: This CT exam was performed using one or more of the following dose reduction techniques: automated exposure control, adjustment of the mA and/or kV according to patient size, and/or use of iterative reconstruction technique. Comparison: 09/03/2017 FINDINGS: No intracranial hemorrhage, mass effect or CT evidence of large vascular territory acute infarct. The ventricles are unchanged in size and remain midline. Old appearing lateral left thalamic lacunar infarct again noted. The visualized paranasal sinuses, mastoids and orbits appear within limits. Bilateral parasellar carotid and intracranial vertebral vascular calcification again seen. IMPRESSION: No intracranial hemorrhage, mass effect or CT evidence of large vascular territory acute infarct. Old appearing lateral left thalamic lacunar infarct again noted.
[2018-05-22 00:24] LABS: INR 0.9 (<1.2); Partial Thromboplastin Time 22.8 sec (22.0-30.0); Prothrombin Time 10.1 sec (9.0-12.0)
[2018-05-22] MEDS ORDERED: INSULIN REGULAR 100 UNIT/ML VIAL SQ STA (00:43)
--- NOTE | 2018-05-22 00:48 | CT ---
History: ITS.REASON CT Reason: Neuro Deficits Exam: CTA HEAD Technique more: CTDI is 8.3 mGy and DLP is 397.5 mGy-cm. Technique more: This CT exam was performed using one or more of the following dose reduction techniques: automated exposure control, adjustment of the mA and/or kV according to patient size, and/or use of iterative reconstruction technique. Comparison: None available FINDINGS: Heavy bilateral parasellar carotid calcification. The anterior and posterior circulations appear intact. No vessel cut off, flow significant stenosis or aneurysm identified. IMPRESSION: Heavy bilateral parasellar carotid calcification. The anterior and posterior circulations appear intact. No vessel cut off, flow significant stenosis or aneurysm identified. Exam: CTA NECK Technique more: CTDI is 8.3 mGy and DLP is 397.5 mGy-cm. Technique more: This CT exam was performed using one or more of the following dose reduction techniques: automated exposure control, adjustment of the mA and/or kV according to patient size, and/or use of iterative reconstruction technique. Comparison: None available FINDINGS: Ill-defined 4 to 5 mm nodular opacity the right apex axial 23. Follow-up per Fleischner Society criteria. Pulmonary emphysema at the apices. No evidence of flow significant stenosis or dissection. Mild-appearing bilateral carotid bifurcation calcific plaque formation. Dominant appearing left vertebral artery, anatomic variant. Spondylosis. IMPRESSION: No evidence of flow significant stenosis or dissection. Mild-appearing bilateral carotid bifurcation calcific plaque formation. Dominant appearing left vertebral artery, anatomic variant. Ill-defined 4 to 5 mm nodular opacity the right apex axial 23. Follow-up per Fleischner Society criteria. Pulmonary emphysema at the apices.
[2018-05-22 01:35] VITALS: BP 125/94; PULSE 68; RESP 18; TEMP 98
== END 2018-05-22 01:34 | disposition home or self-care (01) ==
LOC: EC 23:15
DX: E10.65 Type 1 diabetes mellitus with hyperglycemia (principal); E10.621 Type 1 diabetes mellitus with foot ulcer; L97.529 Non-pressure chronic ulcer of other part of left foot with unspecified severity; E10.40 Type 1 diabetes mellitus with diabetic neuropathy, unspecified; I10 Essential (primary) hypertension; I69.331 Monoplegia of upper limb following cerebral infarction affecting right dominant side; E78.5 Hyperlipidemia, unspecified; F41.9 Anxiety disorder, unspecified; F17.200 Nicotine dependence, unspecified, uncomplicated; Z71.6 Tobacco abuse counseling; Z79.82 Long term (current) use of aspirin; Z79.4 Long term (current) use of insulin; Z79.899 Other long term (current) drug therapy; Z91.018 Allergy to other foods; Z95.5 Presence of coronary angioplasty implant and graft; Z98.1 Arthrodesis status
CPT/HCPCS: 36415; 93005; 80053; 84484; 85025; 85610; 85730; 70496; 70450; 70498; 99285; 96374; 96375 ×2; J1100; J2765; J1885; Q9967

== ENCOUNTER → 2018-09-16 | Outpatient (CLI) | payer MEDICARE ==
[2018-09-16 15:21] LABS: HCT 48.7 % (34.0-46.0); HGB 16.9 gm/dL (11.4-16.0); MCH 29.6 pg (25.0-35.0); MCHC 34.8 g/dL (31.0-37.0); MCV 85.2 fL (80.0-100.0); Mean Platelet Volume 7.1; Platelet Count 206 k/uL (150-450); Poikilocytosis Slight; RBC 5.72 m/uL (3.80-5.40); RDW 14.3 % (11.5-15.5); WBC 7.9 k/uL (3.8-10.6)
[2018-09-16 15:33] LABS: African American GFR (CKD) >90 (>60 ml/min/1.73 sqM); Anion Gap 14 mmol/L; Blood Urea Nitrogen 13 mg/dL (7-17); Carbon Dioxide 22 mmol/L (22-30); Chloride 101 mmol/L (98-107); Potassium 4.4 mmol/L (3.5-5.1); Sodium 137 mmol/L (137-145)
== END | disposition home or self-care (01) ==
LOC: LABWHC1 14:59
PROVIDERS: ATTEND Internal Medicine Interventional Cardiology
DX: Z01.812 Encounter for preprocedural laboratory examination (principal); I25.10 Atherosclerotic heart disease of native coronary artery without angina pectoris
CPT/HCPCS: 36415; 80051; 82565; 84520; 85027

== ENCOUNTER 2018-09-18 08:46 | Day surgery (SDC) | payer MEDICARE ==
[2018-09-17 11:09] VITALS: BMI 21.7
[~2018-09-18 08:46] MED LIST changes: -ALPRAZolam 0.5 MG TAB PO PRN; -ATORVASTATIN 80 MG TAB PO STA; -NITROGLYCERIN SL TABS 0.4 MG TAB SUBLINGUAL PRN
[2018-09-18 09:10] VITALS: TEMP 98.2
[2018-09-18 09:13] LABS: Glucose,Whole Blood 430 mg/dL (75-99)
[2018-09-18] MEDS ORDERED: INSULIN ASPART (NovoLOG) 100 UNIT/ML VIAL SQ ONE (09:22)
[2018-09-18] MEDS ORDERED: MIDAZOLAM (PF) 2 MG/2 ML VIAL IV ONE (10:43)
[2018-09-18] MEDS ORDERED: IOPAMIDOL-250 100ML BTL INTRAARTER ONE (10:57)
[2018-09-18] MEDS ORDERED: IOPAMIDOL-250 50ML BTL INTRAARTER ONE (10:58)
[2018-09-18] MEDS ORDERED: RX INFO: IV CONTRAST WAS GIVEN 1 EACH MISC MISCELLANE PRN (11:05)
[2018-09-18] MEDS ORDERED: SODIUM CHLORIDE 0.9% 1,000 ML IV SCH (11:15)
[2018-09-18] MEDS ORDERED: HYDROcodone/APAP 5-325MG 1 EACH TAB ONE (11:31)
--- NOTE | 2018-09-18 11:45 | AN ---
ANGIOGRAPHY REPORT ABDOMINAL AORTOGRAM AND BILATERAL LOWER EXTREMITIES RUNOFF: DATE OF SERVICE: September 18, 2018 PERFORMING PHYSICIAN: Vipul Lock MD, director public. PROCEDURE PERFORMED: 1. An abdominal aortogram. 2. Bilateral lower extremities runoff. INDICATION: This is a 57-year-old female patient with coronary artery disease and prior triple- vessel coronary angioplasty and stenting as well as diabetes, hypertension, and dyslipidemia, who was experiencing right leg intermittent claudication. She underwent an arterial duplex study in the office and that revealed severe fem-pop disease. Because of that, she was brought today to undergo an aortogram and runoff. APPROACH: Left common femoral artery. COMPLICATION: None. LEVEL OF SEDATION: Moderate with sedation length of 12 minutes. PROCEDURE DESCRIPTION: After obtaining an informed consent, the patient was brought to the cardiac recyclable materials sorter. The left common femoral artery was cannulated using micropuncture technique and the micropuncture wire passed easily then I placed a 5-Rwandan sheath in the left common femoral artery. After that, I did an abdominal aortogram and bilateral lower extremities runoff using 5-Rwandan pigtail catheter which was initially placed at the level of the arteries then it was pulled into above the bifurcation of the aorta to right and left common iliac artery. The procedure was completed without any complication. SELECTIVE PERIPHERAL ANGIOGRAM: 1. The aorta appeared to have mild disease only. 2. Renal arteries: The right and left renal arteries appeared to be angiographically normal. 3. Common iliac arteries: The right common iliac artery appeared to have mild disease only and the left common iliac artery appeared to be angiographically normal. 4. Internal iliac arteries: Both internal iliac arteries appeared to be angiographically normal. 5. Common femoral arteries: The right common femoral artery appeared to have mild disease only and the left common femoral artery appeared to be angiographically normal. 6. External iliac arteries: The right external iliac artery appeared to be critically diseased and the left external iliac artery appeared to be angiographically normal. 7. Profunda: Both profunda appeared to be patent. 8. SFA: The right SFA appeared to have mild disease only and the left SFA appeared to have intermediate to severe disease appeared to be in the range of 60% to 70%. 9. Popliteal: Both popliteals appeared to have mild disease only. 10.Below the knee: The arteries below the knee were not well visualized but probably there are 3 vessels runoff below the knee bilaterally. CONCLUSION: 1. Critical disease involving the right external iliac artery. 2. Severe disease involving the left SFA. POSTPROCEDURE MANAGEMENT: The patient needs to have a PLASTER MACHINE TENDER of the right external iliac artery and atherectomy and PLASTER MACHINE TENDER of the left SFA. BOO / RODOLFON: [id number] /
--- NOTE | 2018-09-18 11:45 | LTR ---
Date of Service: September 18, 2018 RE: Mary Jo Caldwell Dear Dr. Avilez; Ms. Mary Jo Caldwell underwent today an aortogram with runoff and that revealed critical disease involving the right iliac artery and severe disease involving the left SFA. She will need to undergo a HEEL LAYER of the right iliac and left SFA to be done in the next few weeks. I want to thank you for allowing us to participate in her care and please do not hesitate to call if you have any question or concern. Sincerely, MD BOO Garcia / VLAD: [id number] /
[2018-09-18] MEDS ORDERED: HYDROmorphone 1 MG/ML 1 ML SYRINGE ONE ×2 (12:18→14:25)
--- NOTE | 2018-09-18 14:06 | IR ---
Fluoroscopy HISTORY: Pain in legs 60 seconds fluoroscopy time supplied to the referring clinician. 137 intraoperative C-arm images doc ument the procedure. See dictated report from cardiology.
[2018-09-18 20:03] VITALS: RESP 16
[2018-09-18 20:04] VITALS: BP 120/76; PULSE 78
== END 2018-09-18 16:55 | disposition home or self-care (01) ==
LOC: CATHCVL 08:46
PROVIDERS: ATTEND Internal Medicine Interventional Cardiology
DX: E11.51 Type 2 diabetes mellitus with diabetic peripheral angiopathy without gangrene (principal); I70.213 Atherosclerosis of native arteries of extremities with intermittent claudication, bilateral legs; I25.10 Atherosclerotic heart disease of native coronary artery without angina pectoris; Z95.5 Presence of coronary angioplasty implant and graft; I10 Essential (primary) hypertension; E78.5 Hyperlipidemia, unspecified; Z86.73 Personal history of transient ischemic attack (TIA), and cerebral infarction without residual deficits; F17.200 Nicotine dependence, unspecified, uncomplicated; Z79.82 Long term (current) use of aspirin; Z79.899 Other long term (current) drug therapy; Z79.4 Long term (current) use of insulin; Z79.891 Long term (current) use of opiate analgesic
CPT/HCPCS: 36200; 75625; 75716; C1769 ×4; C1894; J1170; Q9966 ×2; J2250

== ENCOUNTER 2018-09-25 10:14 | Day surgery (SDC) | payer MEDICARE ==
[2018-09-24 11:33] VITALS: BMI 22.0
[~2018-09-25 10:14] MED LIST changes: -ALPRAZolam 0.25 MG TAB PO PRN; +ASPIRIN 325 MG TAB PO SCH; -ASPIRIN 325 MG TAB PO STA; -SODIUM CHLORIDE 0.9% 1,000 ML in EMPTY BAG 1 BAG IV ONE
[2018-09-25] MEDS: SODIUM CHLORIDE 0.9% 1,000 ML IV ONE ×2 (11:25→17:34)
[2018-09-25 11:32] LABS: Glucose,Whole Blood 325 mg/dL (75-99)
[2018-09-25] MEDS ORDERED: INSULIN ASPART (NovoLOG) 100 UNIT/ML VIAL SQ ONE (11:43)
[2018-09-25 13:43] VITALS: RESP 16
[2018-09-25] MEDS ORDERED: SODIUM CHLORIDE 0.9% 1,000 ML IV ONE (13:54)
[2018-09-25] MEDS ORDERED: LIDOCAINE 1% INJ 10MG/ML (20 ML MDV) SQ ONE (13:59)
[2018-09-25] MEDS: MIDAZOLAM (PF) 2 MG/2 ML VIAL IVP ONE ×2 (14:00→14:08)
[2018-09-25] MEDS ORDERED: HEPARIN SODIUM 1,000 UN/ML (10ML VL) IV ONE (14:09)
[2018-09-25] MEDS ORDERED: IOPAMIDOL-250 100ML BTL INTRAARTER ONE (14:28)
[2018-09-25] MEDS ORDERED: HYDROmorphone 1 MG/ML 1 ML SYRINGE IVP ONE (14:32)
[2018-09-25] MEDS ORDERED: NITROGLYCERIN SL TABS 0.4 MG TAB SUBLINGUAL PRN (14:34)
[2018-09-25] MEDS ORDERED: HYDROcodone/APAP 5-325MG 1 EACH TAB PO PRN (14:34)
[2018-09-25 14:53] LABS: Glucose,Whole Blood 172 mg/dL (75-99)
--- NOTE | 2018-09-25 15:28 | IR ---
Fluoroscopy HISTORY: Peripheral vascular disease 6 minutes fluoroscopy time supplied to the referring clinician. 281 intraoperative C-arm images docu ment the procedure. See dictated report from cardiology.
[2018-09-25 16:54] LABS: Glucose,Whole Blood 214 mg/dL (75-99)
[2018-09-25] MEDS: PANTOPRAZOLE 40 MG TABLET PO SCH (17:40)
[2018-09-25] MEDS: REPAGLINIDE 1 MG TAB PO SCH (17:42)
[2018-09-25 20:47] LABS: Glucose,Whole Blood 318 mg/dL (75-99)
[2018-09-25] MEDS ORDERED: ATORVASTATIN 80 MG TAB PO SCH (21:00)
[2018-09-25] MEDS ORDERED: FENOFIBRATE 160 MG TAB PO SCH (21:00)
[2018-09-25] MEDS ORDERED: DULoxetine HCL 60 MG CAPSULE.DR PO SCH (21:00)
[2018-09-25] MEDS ORDERED: GABAPENTIN 300 MG CAP PO SCH (21:00)
[2018-09-25] MEDS ORDERED: LISINOPRIL 20 MG TAB PO SCH (21:00)
[2018-09-25] MEDS ORDERED: INSULN ASP PRT/INSULIN ASPART 100 UNIT/ML 10 ML VIAL SQ SCH (21:00)
[2018-09-25] MEDS ORDERED: INSULIN DETEMIR (LEVEMIR) 100 UNIT/ML SYR SQ SCH (21:00)
[2018-09-25] MEDS: METOPROLOL TARTRATE 12.5 MG TAB PO SCH (21:16)
[2018-09-26 03:37] VITALS: TEMP 98.8
--- NOTE | 2018-09-26 05:35 | AN ---
ANGIOGRAPHY REPORT DATE OF SERVICE: September 25, 2018 PERFORMING PHYSICIAN: Vipul Lock MD, software engineer sales. PROCEDURE PERFORMED: 1. Selective right external iliac artery angiogram. 2. Intravascular ultrasound, IVUS, of the right external iliac artery. 3. Successful stenting of the right external iliac artery using 8 x 100 Zilver PTX drug-coated stent with an excellent angiographic result and reduction of stenosis from 99.9% to 0%. INDICATION: This is a 57-year-old female patient with history of coronary artery disease and prior coronary artery stenting as well as significant history of smoking, was experiencing bilateral lower extremities intermittent claudication, worse on the right side. She underwent a peripheral angiogram a few weeks ago and that revealed critical right iliac artery and intermediate to severe disease involving the left SFA. She was brought today to undergo a BROKERAGE MANAGER of the right iliac artery. APPROACH: Left common femoral artery. COMPLICATION: None. LEVEL OF SEDATION: Moderate with sedation length of 27 minutes. PROCEDURE DESCRIPTION: After obtaining an informed consent, the patient was brought to the cardiac laboratory mechanic helper. The left common femoral artery was cannulated using micropuncture technique and the micropuncture wire passed easily then I placed a 6-Fijian 11 cm in the left common femoral artery. After that I did select the right SFA using 0.035 [place] Advantage wire. After that I did exchange my short sheath into long sheath using 0.035 [place] Advantage wire. The tip of the sheath was positioned in the right common iliac artery. After that I did exchange my 0.035 wire into 0.014 wire using 0.035 Quick-Cross catheter. Please note that anticoagulation was initiated using heparin and the patient was given 7000 units of heparin at the beginning of the procedure. After that I did intravascular ultrasound, IVUS, of the right external iliac artery which revealed the diameter of 8 mm. I did pre-dilate the artery using 6 mm x 120 mm balloon. After that, I did deploy 8 x 100 mm Zilver PTX drug-coated stent where the stent was positioned under fluoroscopy guidance and deployed under fluoroscopy guidance as well. I post dilated the stent using 7 mm balloon. The following angiogram showed great results with reduction of stenosis from 100% to 0% and the procedure was completed without any complication. POSTPROCEDURE MANAGEMENT: 1. Dual antiplatelet therapy. 2. Risk factors modifications. 3. Follow up with the patient. MMODL / IJN: [id number] /
[2018-09-26 06:28] LABS: Glucose,Whole Blood 287 mg/dL (75-99)
[2018-09-26] MEDS: REPAGLINIDE 1 MG TAB PO SCH (07:22)
[2018-09-26] MEDS: PANTOPRAZOLE 40 MG TABLET PO SCH (07:22)
[2018-09-26 07:28] LABS: African American GFR (CKD) >90 (>60 ml/min/1.73 sqM); Anion Gap 7 mmol/L; Basophils % (A) 0 %; Blood Urea Nitrogen 9 mg/dL (7-17); Calcium 9.1 mg/dL (8.4-10.2); Carbon Dioxide 28 mmol/L (22-30); Chloride 103 mmol/L (98-107); Eosinophils # (A) 0.3 k/uL (0-0.7); Eosinophils % (A) 3 %; Glucose 254 mg/dL (74-99); HGB 14.1 gm/dL (11.4-16.0); Lymphocytes # (A) 2.1 k/uL (1.0-4.8); Lymphocytes % (A) 28 %; MCH 30.3 pg (25.0-35.0); MCHC 34.4 g/dL (31.0-37.0); MCV 88.2 fL (80.0-100.0); Mean Platelet Volume 7.1; Monocytes # (A) 0.5 k/uL (0-1.0); Monocytes % (A) 6 %; Neutrophils # (A) 4.8 k/uL (1.3-7.7); Neutrophils % (A) 62 %; Platelet Count 169 k/uL (150-450); Poikilocytosis Slight; Potassium 3.9 mmol/L (3.5-5.1); RBC 4.65 m/uL (3.80-5.40); RDW 14.4 % (11.5-15.5); Sodium 138 mmol/L (137-145); WBC 7.7 k/uL (3.8-10.6)
[2018-09-26] MEDS: METOPROLOL TARTRATE 12.5 MG TAB PO SCH (08:23)
[2018-09-26 08:27] VITALS: BP 124/58; PULSE 64
[2018-09-26] MEDS ORDERED: ASPIRIN 81 MG PO SCH (09:00)
[2018-09-26] MEDS ORDERED: INSULN ASP PRT/INSULIN ASPART 100 UNIT/ML 10 ML VIAL SQ SCH (09:00)
[2018-09-26] MEDS ORDERED: ISOSORBIDE MONONITRATE ER 60 MG TAB.ER.24H PO SCH (09:00)
[2018-09-26] MEDS ORDERED: GABAPENTIN 300 MG CAP PO SCH (09:00)
[2018-09-26] MEDS ORDERED: PRASUGREL 10 MG TAB PO SCH (09:00)
--- NOTE | 2018-09-26 12:37 | P.PN ---
Subjective Progress Note Date: 09/26/18 Discharge note This is a 57-year-old female patient with history of coronary artery disease with prior stent placement, nicotine dependence, hyperlipidemia, hypertension, who was experiencing bilateral lower extremity intermittent claudication, worse on the right side. She underwent a peripheral angiogram a few weeks ago which revealed a critical right iliac artery and intermediate to severe disease i nvolving the left SFA. She was brought to the hospital yesterday, underwent a FORENSIC TOXICOLOGIST of the right iliac artery. Seen and examined this morning, feeling well, hemodynamically stable. Blood cell count 7.7, hemoglobin 14.1, platelet count 169. Sodium 138, potassium 3.9, BUN 9 and creatinine 0.5. Objective - Vital Signs Vital signs: Vital Signs Temp 98.8 F 09/25/18 20:00 Pulse 64 09/26/18 08:00 Resp 16 09/26/18 08:00 BP 124/58 09/26/18 08:00 Pulse Ox 97 09/26/18 08:00 Intake & Output 09/25/18 09/26/18 09/26/18 18:59 06:59 18:59 Intake Total 540 600 Output Total 0 Balance 540 600 Weight 66.3 kg 69.6 kg Intake: IV 300 Oral 240 600 Output: Urine 0 Other: # Voids 2 - Exam PHYSICAL EXAMINATION: GENERAL: 57-year-old female in no acute distress at the time of my examination HEENT: Head is atraumatic, normocephalic. Pupils equal, round. Sclera anicteric. Conjunctiva are clear. Mucous membranes of the mouth are moist. Neck is supple. There is no elevated jugular venous pressure. No carotid bru it is heard. HEART EXAMINATION: Heart S1, S2 normal. No murmur or gallop heard. CHEST EXAMINATION: Lungs are clear to auscultation and precussion. No chest wall tenderness is noted on palpation or with deep breathing. ABDOMEN: Soft, nontender. Bowel sounds are heard. No organomegaly noted. EXTREMITIES: 2+ peripheral pulses with no evidence of peripheral edema and no calf tenderness noted. Left groin soft, no evidence of any hematoma. NEUROLOGIC patient is awake, alert and oriented 3 .] . - Labs CBC & Chem 7: 09/26/18 06:49 09/26/18 06:49 Labs: Abnormal Lab Results - Last 24 Hours (Table) 09/25/18 09/25/18 09/25/18 Range/Units 14:50 16:52 20:45 Glucose (74-99) mg/dL POC Glucose (mg/dL) 172 H 214 H 318 H (75-99) mg/dL 09/26/18 09/26/18 Range/Units 06:24 06:49 Glucose 254 H (74-99) mg/dL POC Glucose (mg/dL) 287 H (75-99) mg/dL Assessment and Plan Plan: Assessment and plan #1 status post successful stenting of the right external iliac artery #2 known history of coronary artery disease with prior stent placement #3 hypertension #4 hyperlipidemia #5 nicotine dependence Plan Patient will be discharged home today, a follow-up appointment will be made with Dr. Cruz in the office post discharge. Patient will be discharged home with aspirin 81 mg daily, Lipitor 80 mg daily, Imdur 60 mg daily, Zestril 40 mg daily , Lopressor 25 mg one tablet by mouth twice a day, Effient 10 mg daily. DNP note has been reviewed, I agree with a documented findings and plan of care. Patient was seen and examined.
== END 2018-09-26 10:09 | disposition home or self-care (01) ==
LOC: CATHCVL 10:14 → 3SCARD 15:05 → CATHCVL 09-26 10:09
PROVIDERS: ATTEND Internal Medicine Interventional Cardiology
DX: E11.51 Type 2 diabetes mellitus with diabetic peripheral angiopathy without gangrene (principal); Z79.4 Long term (current) use of insulin; E78.5 Hyperlipidemia, unspecified; I70.213 Atherosclerosis of native arteries of extremities with intermittent claudication, bilateral legs; I25.10 Atherosclerotic heart disease of native coronary artery without angina pectoris; Z95.5 Presence of coronary angioplasty implant and graft; I10 Essential (primary) hypertension; F17.200 Nicotine dependence, unspecified, uncomplicated; Z86.73 Personal history of transient ischemic attack (TIA), and cerebral infarction without residual deficits; Z79.02 Long term (current) use of antithrombotics/antiplatelets; Z79.82 Long term (current) use of aspirin; Z79.899 Other long term (current) drug therapy
CPT/HCPCS: 37221; 37252; 80048; 85025; C1894 ×2; C1769 ×4; C1887; C1753; C1760; C1874; C1725; J2001; J1644; J1170; Q9966; J2250

== ENCOUNTER → 2018-10-22 | Outpatient (CLI) | payer MEDICARE ==
[2018-10-22 17:16] LABS: HGB 16.9 gm/dL (11.4-16.0); MCH 29.7 pg (25.0-35.0); MCHC 34.5 g/dL (31.0-37.0); MCV 86.2 fL (80.0-100.0); Mean Platelet Volume 7.7; Platelet Count 207 k/uL (150-450); Poikilocytosis Slight; RBC 5.68 m/uL (3.80-5.40); RDW 15.2 % (11.5-15.5); WBC 9.9 k/uL (3.8-10.6)
[2018-10-22 17:24] LABS: African American GFR (CKD) >90 (>60 ml/min/1.73 sqM); Anion Gap 13 mmol/L; Blood Urea Nitrogen 15 mg/dL (7-17); Carbon Dioxide 25 mmol/L (22-30); Chloride 99 mmol/L (98-107); Potassium 4.3 mmol/L (3.5-5.1); Sodium 137 mmol/L (137-145)
== END | disposition home or self-care (01) ==
LOC: LABPAT 16:42
PROVIDERS: ATTEND Internal Medicine Interventional Cardiology
DX: Z01.812 Encounter for preprocedural laboratory examination (principal); I73.9 Peripheral vascular disease, unspecified
CPT/HCPCS: 36415; 80051; 82565; 84520; 85027

== ENCOUNTER 2018-10-23 09:40 | Day surgery (SDC) | payer MEDICARE ==
[2018-10-22 10:40] VITALS: BMI 23.2
[~2018-10-23 09:40] MED LIST changes: -ASPIRIN 325 MG TAB PO SCH; +SODIUM CHLORIDE 0.9% 1,000 ML in EMPTY BAG 1 BAG IV ONE
[2018-10-23] MEDS ORDERED: INSULIN ASPART (NovoLOG) 100 UNIT/ML VIAL SQ ONE (10:12)
[2018-10-23 10:14] LABS: Glucose,Whole Blood 335 mg/dL (75-99)
[2018-10-23 10:26] LABS: Basophils # (A) 0.1 k/uL (0-0.2); Basophils % (A) 1 %; Eosinophils # (A) 0.2 k/uL (0-0.7); Eosinophils % (A) 3 %; HCT 46.1 % (34.0-46.0); HGB 15.5 gm/dL (11.4-16.0); Lymphocytes # (A) 2.3 k/uL (1.0-4.8); Lymphocytes % (A) 31 %; MCH 28.5 pg (25.0-35.0); MCHC 33.7 g/dL (31.0-37.0); MCV 84.5 fL (80.0-100.0); Mean Platelet Volume 7.1; Monocytes # (A) 0.3 k/uL (0-1.0); Monocytes % (A) 5 %; Neutrophils # (A) 4.4 k/uL (1.3-7.7); Neutrophils % (A) 59 %; Platelet Count 179 k/uL (150-450); RBC 5.45 m/uL (3.80-5.40); RDW 13.9 % (11.5-15.5); WBC 7.4 k/uL (3.8-10.6)
[2018-10-23 10:32] LABS: African American GFR (CKD) >90 (>60 ml/min/1.73 sqM); Anion Gap 12 mmol/L; Blood Urea Nitrogen 14 mg/dL (7-17); Calcium 9.4 mg/dL (8.4-10.2); Carbon Dioxide 26 mmol/L (22-30); Chloride 98 mmol/L (98-107); Glucose 321 mg/dL (74-99); Potassium 3.6 mmol/L (3.5-5.1); Sodium 136 mmol/L (137-145)
[2018-10-23] MEDS ORDERED: MIDAZOLAM (PF) 2 MG/2 ML VIAL IV ONE (11:20)
[2018-10-23] MEDS ORDERED: LIDOCAINE 1% INJ 10MG/ML (20 ML MDV) SQ ONE (11:23)
[2018-10-23] MEDS ORDERED: HEPARIN SODIUM 1,000 UN/ML (10ML VL) IV ONE (11:31)
[2018-10-23] MEDS ORDERED: IOPAMIDOL-250 100ML BTL INTRAARTER ONE (11:56)
[2018-10-23] MEDS ORDERED: SODIUM CHLORIDE 0.9% 1,000 ML IV SCH (12:00)
--- NOTE | 2018-10-23 12:18 | IR ---
EXAMINATION TYPE: IR angio abdominal w runoff DATE OF EXAM: 10/23/2018 COMPARISON: NONE HISTORY: Fluoroscopy time. Fluoroscopy was provided to the referring clinician.
--- NOTE | 2018-10-23 12:28 | AN ---
ANGIOGRAPHY REPORT DATE OF SERVICE: September 22, 2002 October 23, 2018 please see this based. PERFORMING PHYSICIAN: Vipul Lock MD, soil fertility extension specialist. PROCEDURE PERFORMED: 1. Selective left okeho-zms-wzhi angiogram. 2. Selective left SFA/popliteal/SFA angiogram. 3. Selective right common femoral artery angiogram. 4. Gradient measurement across the left superficial femoral artery. INDICATION: This is a 57-year-old female patient with history of coronary artery disease and peripheral arterial disease who was experiencing bilateral lower extremities intermittent claudication and underwent a peripheral angiogram which revealed critical right iliac artery and intermediate to severe disease involving the left SFA. She underwent a peripheral intervention of the right external iliac artery using self- expandable stent with an excellent angiographic results. She was brought today to undergo selective left SFA angiogram with possible intervention. APPROACH: Right common femoral artery. COMPLICATION: None. LEVEL OF SEDATION: Moderate with sedation length of 24 minutes. PROCEDURE DESCRIPTION: After obtaining an informed consent, the patient was brought to the Cardiac computer laboratory technician. The right common femoral artery was cannulated using micropuncture technique and a micropuncture wire passed easily, then I placed a 6-American sheath 70 cm in the right common femoral artery and the sheath was positioned all the way in the proximal left SFA. After that, I did selective left nleaz-bky-gwxs angiogram as well as selective left popliteal and SFA angiogram. The angiogram revealed intermediate to severe disease involving the mid left SFA. Because of that, I decided to do a pressure gradient across the lesion to assess how hemodynamically significant the lesion and have flow-limiting is the lesion. Anticoagulation was initiated using heparin and the patient was given 6000 units of heparin IV. I did wire the lesion using 0.014 wire. I did advance an 0.035 CXI catheter distal to the lesion and then I did a pullback across the lesion which revealed a pressure gradient of only 15 mmHg. Because of that, I decided to stop. After that I did exchange my long sheath into short sheath using 0.035 [place] [employer] wire. The procedure was completed without any complication. CONCLUSION: 1. Intermediate to severe disease involving the mid left SFA. 2. Gradient measurement across the lesion was applied and revealed only 12 to 15 mmHg which is below 20 mmHg, which is a cutoff for doing balloon angioplasty. POSTPROCEDURE MANAGEMENT: 1. Dual anti-platelet therapy. 2. Risk factor modifications. 3. Continue monitoring the patient with arterial duplex study and follow up with her. BOO / IJN: [id number] /
[2018-10-23] MEDS ORDERED: HYDROmorphone 1 MG/ML 1 ML SYRINGE ONE (13:29)
[2018-10-23] MEDS ORDERED: HYDROmorphone 1 MG/ML 1 ML SYRINGE IVP STA (14:04)
[2018-10-23 15:12] VITALS: RESP 17; TEMP 98.6
[2018-10-23 16:33] LABS: Glucose,Whole Blood 319 mg/dL (75-99)
[2018-10-23 18:35] VITALS: BP 112/68; PULSE 76
== END 2018-10-23 21:49 ==
LOC: CATHCVL 09:40 → 1SOBS 14:00 → CATHCVL 21:49
PROVIDERS: ATTEND Internal Medicine Interventional Cardiology
DX: I70.212 Atherosclerosis of native arteries of extremities with intermittent claudication, left leg (principal); E11.51 Type 2 diabetes mellitus with diabetic peripheral angiopathy without gangrene; I25.10 Atherosclerotic heart disease of native coronary artery without angina pectoris; I10 Essential (primary) hypertension; E78.5 Hyperlipidemia, unspecified; Z95.5 Presence of coronary angioplasty implant and graft; F17.210 Nicotine dependence, cigarettes, uncomplicated; F17.290 Nicotine dependence, other tobacco product, uncomplicated; Z95.820 Peripheral vascular angioplasty status with implants and grafts; Z86.73 Personal history of transient ischemic attack (TIA), and cerebral infarction without residual deficits; Z79.82 Long term (current) use of aspirin; Z79.4 Long term (current) use of insulin; Z79.899 Other long term (current) drug therapy
CPT/HCPCS: 36247; 75710; 85347; 80048; 85025; C1894 ×2; C1769 ×3; J2001; J1644; J1170; Q9966; J2250

== ENCOUNTER 2019-07-01 08:11 | Inpatient (IN) | payer MEDICARE ==
[2019-07-01] MEDS ORDERED: ONDANSETRON 4 MG TAB PO STA (08:24)
[2019-07-01] MEDS ORDERED: KETOROLAC 60 MG/2 ML VIAL IM STA (08:24)
--- NOTE | 2019-07-01 08:27 | ED ---
General Adult HPI - General Chief complaint: Fall Stated complaint: fall/hip pain Time Seen by Provider: 07/01/19 08:15 Source: patient, RN notes reviewed, old records reviewed Mode of arrival: wheelchair Limitations: no limitations - History of Present Illness Initial comments: This is a 58-year-old female comes into the emergency department complaining of left knee and left hip pain. Patient states last night about 9:00 she turned around too quickly and she would had slippery socks on and she slipped and fell onto her left hip. Patient denies any head or neck pain or injury. Patient denies any loss of consciousness. Patient states she is unable to ambulate because her left hip hurts so much. Patient states sitting is much more comfortable but she still has some pain. Patient denies any back pain. Patient denies any chest or abdomen pain. Patient denies any upper extremity pain. Patient states she is mildly nauseated because the pain. - Related Data Home Medications Medication Instructions Recorded Confirmed Gabapentin [Neurontin] 300 mg PO [facility] 03/18/14 10/23/18 Lisinopril [Prinivil] 40 mg PO 03/18/14 10/23/18 Atorvastatin [Lipitor] 80 mg PO 06/26/16 10/23/18 DULoxetine HCL [Cymbalta] 60 mg PO 06/26/16 10/23/18 Insulin Glargine [Lantus] 40 unit SQ [facility] 09/01/16 10/23/18 Metoprolol Tartrate 12.5 mg PO BID 09/01/16 10/23/18 Fenofibrate 160 mg PO 03/15/17 10/23/18 Gabapentin [Neurontin] 900 mg PO 05/15/17 10/23/18 Insulin NPH Hum/Reg Insulin Hm 40 unit SQ QA 09/01/17 10/23/18 [NovoLIN 70-30 100 UNIT/ML VIAL] Isosorbide Mononitrate ER [Imdur] 60 mg PO QAM 09/01/17 10/23/18 Aspirin 81 mg PO QAM 10/08/17 10/23/18 Prasugrel [Effient] 10 mg PO QAM 10/08/17 10/23/18 Insulin NPH Hum/Reg Insulin Hm 30 unit SQ 09/17/18 10/23/18 [NovoLIN 70-30 100 UNIT/ML VIAL] Repaglinide [Prandin] 1 mg PO AC-TID 09/17/18 10/23/18 Insulin Glargine [Lantus] 30 unit SQ HS 10/22/18 10/23/18 Previous Rx's Medication Instructions Recorded Nitroglycerin Sl Tabs [Nitrostat] 0.4 mg SUBLINGUAL Q5M PRN #50 tab 07/02/16 HYDROcodone/APAP 5-325MG [[place] 1 tab PO Q6HR PRN #20 tab 05/17/17 5-325] Pantoprazole Sodium [Protonix] 40 mg PO BID #60 tablet. 05/17/17 metFORMIN HCL [Glucophage] 500 mg PO BID #0 09/26/18 Allergies Allergy/AdvReac Type Severity Reaction Status Date / Time gluten AdvReac Nausea & Verified 07/01/19 08:16 Vomiting & Diarrhea Review of Systems ROS Statement: Those systems with pertinent positive or pertinent negative responses have been documented in the HPI. ROS Other: All systems not noted in ROS Statement are negative. Past Medical History Past Medical History: CVA/TIA, Diabetes Mellitus, GERD/Reflux, Hyperlipidemia, Hypertension, Vascular Disorder Additional Past Medical History / Comment(s): IDDM type I, pancreatitis X2 (Last was 05/02), celiac disease, feet neuropathy, chronic low back pain, UTIs, duodenitis/duodenal ulcer, hiatal hernia., states right foot swollen and red , pain right leg., See Cardiology H & P. 8-7 stent illeac artery, History of Any Multi-Drug Resistant Organisms: None Reported Past Surgical History: Back Surgery, Cholecystectomy, Heart Catheterization With Stent, Orthopedic Surgery Additional Past Surgical History / Comment(s): Lumbar fusion, spinal cord stimulator, L knee arthroscopy, EGD, cardiac cath with 3 stents in February 2017, Aortoram 09/18/18. 09-25-18 stent to the illeac artery. Past Anesthesia/Blood Transfusion Reactions: No Reported Reaction Additional Past Anesthesia/Blood Transfusion Reaction / Comment(s): Never had blood transfusion Date of Last Stent Placement:: 02/2017 Past Psychological History: Anxiety Smoking Status: Current every day smoker Past Alcohol Use History: None Reported Past Drug Use History: None Reported - Past Family History Father Family Medical History: Cancer, Liver Disease Additional Family Medical History / Comment(s): Idiopathic cirrhosis of liver, Liver CA Mother Family Medical History: Coronary Artery Disease (CAD) Additional Family Medical History / Comment(s): Multiple stents. Mother at the age of 77 or 78yrs from [place]. General Exam - General Exam Comments Initial Comments: GENERAL: Patient is well-developed and well-nourished. Patient is nontoxic and well- hydrated and is in mild distress. ENT: Neck is soft and supple. No significant lymphadenopathy is noted. Oropharynx is clear. Moist mucous membranes. Neck has full range of motion without eliciting any pain. EYES: The sclera were anicteric and conjunctiva were pink and moist. Extraocular movements were intact and pupils were equal round and reactive to light. Eyelids were unremarkable. PULMONARY: Unlabored respirations. Good breath sounds bilaterally. No audible rales rhonchi or wheezing was noted. CARDIOVASCULAR: There is a regular rate and rhythm without any murmurs gallops or rubs. ABDOMEN: Soft and nontender with normal bowel sounds. SKIN: Skin is clear with no lesions or rashes and otherwise unremarkable. NEUROLOGIC: Patient is alert and oriented x3. Cranial nerves II through XII are grossly intact. Motor and sensory are also intact. Normal speech, volume and content. Symmetrical smile. MUSCULOSKELETAL: Patient has normal flexion and extension of the left hip however external rotation causes her quite a bit of pain. Patient also some tenderness over the lateral aspect of her hip. LYMPHATICS: No significant lymphadenopathy is noted PSYCHIATRIC: Normal psychiatric evaluation. Limitations: no limitations Course Vital Signs 07/01/19 08:12 Temperature 98.5 F Pulse Rate 98 Respiratory 18 Rate Blood Pressure 158/98 O2 Sat by Pulse 98 Oximetry Medical Decision Making - Medical Decision Making I will begin the room to reevaluate the patient and she was unable to ambulate and though her hip x-ray and her pelvis x-ray were negative I decided to get a CAT scan of her hip X-ray of the left hip shows no acute abnormality. Pelvis x-ray shows no acute abnormality. Patient CT shows an avulsion fracture of the left greater trochanter Disposition Clinical Impression: Greater trochanter fracture Disposition: ADMITTED IP TO THIS [facility] Referrals: Fabiola Land MD [Primary Care Provider] - 1-2 days Time of Disposition: 11:55
--- NOTE | 2019-07-01 09:02 | XR ---
EXAMINATION TYPE: XR Hip LT and AP Pelvis DATE OF EXAM: 07/01/2019 COMPARISON: CT abdomen and pelvis May 15, 2017. HISTORY: Follow injury with pelvic and left hip pain. TECHNIQUE: A single AP view of the pelvis is obtained. Two views of the left hip are obtained. FINDINGS: There is no acute fracture/dislocation evident in the pelvis. The sacroiliac joints appea r symmetric and unremarkable. Mild to moderate axial joint space loss in both hips with mild to moder ate acetabular spurring bilaterally redemonstrated. Postsurgical change lower lumbar spine again seen . New right common iliac arterial stent graft noted. Pubic symphysis intact. Two views of left hip show no acute fracture or dislocation. No focal lytic or sclerotic lesion seen in the proximal femur. The overlying soft tissue is unremarkable. IMPRESSION: There is no acute fracture or dislocation in the pelvis or left hip.
--- NOTE | 2019-07-01 09:31 | XR ---
EXAMINATION TYPE: XR knee complete LT DATE OF EXAM: 07/01/2019 COMPARISON: None HISTORY: Trauma, fall TECHNIQUE: 3 view left knee FINDINGS: No joint effusion is evident. Posterior patellar spurring is noted. Mild degenerative esquivel es in the medial and lateral compartments. No acute fractures or dislocations are evident. IMPRESSION: 1. Mild degenerative changes. No acute osseous abnormality.
[2019-07-01] MEDS ORDERED: HYDROmorphone 0.5 MG/0.5 ML SYRINGE IM STA (09:57)
--- NOTE | 2019-07-01 10:34 | CT ---
EXAMINATION TYPE: CT hip LT wo con DATE OF EXAM: 07/01/2019 COMPARISON: Same day pelvic and left hip x-ray. HISTORY: Fall, Lt hip pain. CT DLP: 342.2 mGycm Automated exposure control for dose reduction was used. FINDINGS: Corresponding to the recent x-ray there is [id number] axial joint space loss with moderate cond ylar spurring at the head neck junction. No dislocation is seen in the left hip. Some mild to moderat e spurring of the greater trochanter identified, seen best on sagittal image 54, there is nondisplace d curvilinear fracture corresponding to coronal image 38 through the posterior aspect of the greater trochanter with an additional fracture line noted sagittal images 49 and 15 and coronal image 33 wher e there is better visualization of a 1.5 cm avulsion type fracture fragment. [id number] subcuta neous edema laterally and posteriorly is noted. No well-formed fluid collection or hematoma present. Partial visualization of anteverted uterus. Bladder mildly distended. No suspicious bowel dilatation or pelvic fluid collection. No groin hernia or adenopathy noted. IMPRESSION: There is acute nondisplaced avulsion type fracture through the greater trochanter of the left proximal femur.
[2019-07-01] MEDS ORDERED: SODIUM CHLORIDE 0.9% 1,000 ML IV ONE (11:55)
[2019-07-01] MEDS: HYDROmorphone 0.5 MG/0.5 ML SYRINGE IVP PRN ×2 (12:12→19:03)
[2019-07-01 13:26] LABS: Glucose,Whole Blood 290 mg/dL (75-99)
[2019-07-01 16:10] LABS: HCT 42.3 % (34.0-46.0); HGB 14.3 gm/dL (11.4-16.0); MCH 29.5 pg (25.0-35.0); MCHC 33.9 g/dL (31.0-37.0); MCV 87.3 fL (80.0-100.0); Mean Platelet Volume 7.6; Platelet Count 156 k/uL (150-450); RBC 4.84 m/uL (3.80-5.40); RDW 13.6 % (11.5-15.5); WBC 7.9 k/uL (3.8-10.6)
[2019-07-01 16:17] LABS: ALT 15 U/L (4-34); AST 17 U/L (14-36); African American GFR (CKD) >90 (>60 ml/min/1.73 sqM); Albumin 3.6 g/dL (3.5-5.0); Alkaline Phosphatase 57 U/L (38-126); Anion Gap 7 mmol/L; Blood Urea Nitrogen 12 mg/dL (7-17); Carbon Dioxide 29 mmol/L (22-30); Chloride 97 mmol/L (98-107); Glucose 330 mg/dL (74-99); Non-African American GFR(CKD) >90 (>60 ml/min/1.73 sqM); Potassium 3.8 mmol/L (3.5-5.1); Sodium 133 mmol/L (137-145); Total Bilirubin 0.6 mg/dL (0.2-1.3)
[2019-07-01 17:12] LABS: Glucose,Whole Blood 338 mg/dL (75-99)
[2019-07-01] MEDS: INSULIN ASPART (NovoLOG) 100 UNIT/ML VIAL SQ SCH ×4 (17:29→21:49)
[2019-07-01] MEDS: PANTOPRAZOLE 40 MG TABLET PO SCH (17:30)
[2019-07-01 20:11] LABS: Glucose,Whole Blood 298 mg/dL (75-99)
[2019-07-01] MEDS ORDERED: INSULIN ISOPHANE SQ SCH (21:00)
[2019-07-01] MEDS ORDERED: GABAPENTIN 300 MG CAP PO SCH (21:00)
[2019-07-01] MEDS ORDERED: INSULIN REGULAR SQ SCH (21:00)
[2019-07-01] MEDS ORDERED: INSULIN DETEMIR (LEVEMIR) 100 UNIT/ML SYR SQ SCH (21:00)
[2019-07-01] MEDS ORDERED: [UNRECOGNIZED DRUG - OTHER] SQ SCH (21:00)
[2019-07-01] MEDS ORDERED: ATORVASTATIN 80 MG TAB PO SCH (21:00)
[2019-07-01] MEDS ORDERED: DULoxetine HCL 60 MG CAPSULE.DR PO SCH (21:00)
--- NOTE | 2019-07-01 21:23 | P.CNOR ---
History of Present Illness - [facility] Consult date: 07/01/19 Consult reason: fracture History of present illness: Patient is a 58-year-old female seen at bedside this evening in consultation for left greater trochanter avulsion fracture. She presented to the ED today with co mplaints of left knee and left hip pain. Patient states last night about 9:00 she turned around too quickly, had slippery socks on and where she slipped and fell onto her left hip. The left hip pain continued and had difficulty ambulating. Patient denies any head or neck pain or injury. Patient denies any loss of consciousness. Patient states sitting is much more comfortable but she still has some pain. Patient denies any back pain. Patient denies any chest or abdomen pain. Patient denies any upper extremity pain. She denies new numbness, tingling, chest pain, shortness of breath or other Review of Systems All systems: negative Constitutional: Denies chills, Denies fever Eyes: denies blurred vision, denies pain Ears, nose, mouth and throat: Denies headache, Denies sore throat Cardiovascular: Denies chest pain, Denies shortness of breath Respiratory: Denies cough Gastrointestinal: Denies abdominal pain, Denies diarrhea, Denies nausea, Denies vomiting Genitourinary: Denies dysuria, Denies hematuria Musculoskeletal: Denies myalgias Integumentary: Denies pruritus, Denies rash Neurological: Denies numbness, Denies weakness Psychiatric: Denies anxiety, Denies depression Endocrine: Denies fatigue, Denies weight change Past Medical History Past Medical History: CVA/TIA, Diabetes Mellitus, GERD/Reflux, Hyperlipidemia, Hypertension, Vascular Disorder Additional Past Medical History / Comment(s): IDDM type I, pancreatitis X2 (Last was 05/02), celiac disease, feet neuropathy, chronic low back pain, UTIs, duodenitis/duodenal ulcer, hiatal hernia., states right foot swollen and red , pain right leg., See Cardiology H & P. 8- stent illeac artery, History of Any Multi-Drug Resistant Organisms: None Reported Past Surgical History: Back Surgery, Cholecystectomy, Heart Catheterization With Stent, Orthopedic Surgery Additional Past Surgical History / Comment(s): Lumbar fusion, spinal cord stimulator, L knee arthroscopy, EGD, cardiac cath with 3 stents in February 2017, Aortoram 09/18/18. 09-25-18 stent to the illeac artery. Past Anesthesia/Blood Transfusion Reactions: No Reported Reaction Additional Past Anesthesia/Blood Transfusion Reaction / Comm: Never had blood transfusion Date of Last Stent Placement:: 02/2017 Past Psychological History: Anxiety Additional Psychological History / Comment(s): Pt resides with her spouse and their 17 yr old son. She is independent. Smoking Status: Current every day smoker Past Alcohol Use History: None Reported Additional Past Alcohol Use History / Comment(s): Pt is currently trying to quit smoking- smoking 1/2 ppd. Started smoking at age 27. (Hx of 1 ppd) Past Drug Use History: None Reported - Past Family History Father Family Medical History: Cancer, Liver Disease Additional Family Medical History / Comment(s): Idiopathic cirrhosis of liver, Liver CA Mother Family Medical History: Coronary Artery Disease (CAD) Additional Family Medical History / Comment(s): Multiple stents. Mother at the age of 77 or 78yrs from [place]. Medications and Allergies Home Medications Medication Instructions Recorded Confirmed Type Gabapentin [Neurontin] 300 mg PO DAILY 03/18/14 07/01/19 History Atorvastatin [Lipitor] 80 mg PO HS 06/26/16 07/01/19 History DULoxetine HCL [Cymbalta] 60 mg PO HS 06/26/16 07/01/19 History Nitroglycerin Sl Tabs [Nitrostat] 0.4 mg SUBLINGUAL Q5M PRN #50 tab 07/02/16 07/01/19 Rx Metoprolol Tartrate 12.5 mg PO BID 09/01/16 07/01/19 History Fenofibrate 160 mg PO HS 03/15/17 07/01/19 History Gabapentin [Neurontin] 900 mg PO HS 05/15/17 07/01/19 History Insulin NPH Hum/Reg Insulin Hm 40 unit SQ QAM 09/01/17 07/01/19 History [NovoLIN 70-30 100 UNIT/ML VIAL] Isosorbide Mononitrate ER [Imdur] 60 mg PO DAILY 09/01/17 07/01/19 History Aspirin 81 mg PO DAILY 10/08/17 07/01/19 History Prasugrel [Effient] 10 mg PO DAILY 10/08/17 07/01/19 History Insulin NPH Hum/Reg Insulin Hm 30 unit SQ HS 09/17/18 07/01/19 History [NovoLIN 70-30 100 UNIT/ML VIAL] Repaglinide [Prandin] 1 mg PO AC-TID 09/17/18 07/01/19 History Insulin Glargine [Lantus] 40 unit SQ HS 10/22/18 07/01/19 History HYDROcodone/APAP 5-325MG [[place] 1 tab PO DAILY PRN 07/01/19 07/01/19 History 5-325] Lisinopril 40 mg PO DAILY 07/01/19 07/01/19 History Omeprazole 20 mg PO DAILY PRN 07/01/19 07/01/19 History metFORMIN HCL [Glucophage] 1,000 mg PO BID 07/01/19 07/01/19 History Allergies Allergy/AdvReac Type Severity Reaction Status Date / Time gluten AdvReac Nausea & Verified 07/01/19 17:01 Vomiting & Diarrhea Physical Examination Inspection of left lower extremity shows no deformity. There is no erythema or wounds. There is tenderness to palpation at the left greater trochanter. She has pain at the lateral left hip with minimal internal rotation and was not stressed. There is no pain with external rotation or hip flexion. Motor and sensation is intact throughout the left lower extremity. The left knee is benign in appearance. There is no effusion. She can flex to 90 and fully extend. Patellar tracking is normal. The knee is ligamentously stable. Calf is SNT. 2+ DP pulse and less than 2 sec cap refill present. Results CT of the pelvis and left hip show a minimally displaced left GT femur fracture. No fracture through femoral neck - Labs Labs: Abnormal Lab Results - Last 24 Hours (Table) 07/01/19 07/01/19 07/01/19 Range/Units 13:25 15:46 17:11 Sodium 133 L (137-145) mmol/L Chloride 97 L (98-107) mmol/L Creatinine 0.43 L (0.52-1.04) mg/dL Glucose 330 H (74-99) mg/dL POC Glucose (mg/dL) 290 H 338 H (75-99) mg/dL Total Protein 6.0 L (6.3-8.2) g/dL 07/01/19 Range/Units 20:09 Sodium (137-145) mmol/L Chloride (98-107) mmol/L Creatinine (0.52-1.04) mg/dL Glucose (74-99) mg/dL POC Glucose (mg/dL) 298 H (75-99) mg/dL Total Protein (6.3-8.2) g/dL H & H 07/01/19 Range/Units 15:46 Hgb 14.3 (11.4-16.0) gm/dL Hct 42.3 (34.0-46.0) % Result Diagrams: 07/01/19 15:46 07/01/19 15:46 - Diagnostic results Hip CT: report reviewed, image reviewed Assessment and Plan (1) Greater trochanter fracture Narrative/Plan: Patient has been reviewed with Dr. Kiran Humphrey. There are no plans for parisi rgical intervention. She may be 50 percent weightbearing on left leg with crutches. PT and Pain management as appropriate and may follow up as an outpatient when ok with internal medicine. Current Visit: Yes Status: Acute Priority: Medium Code(s): S72.113A - DISP FX OF GREATER TROCHANTER OF UNSP FEMUR, INIT SNOMED Code(s): 547912762 Time with Patient: Less than 30
--- NOTE | 2019-07-02 02:16 | P.CONS ---
History of Present Illness - Reason for Consult Consult date: 07/01/19 Medical management - Chief Complaint Left hip pain s/p fall - History of Present Illness Patient is a 58-year-old female with a known history of CVA with right-sided weakness 1 year back, celiac disease, diabetes type 2 insulin-dependent, coronary artery disease with history of stent placement and right iliac stent due to peripheral vascular disease came to ER with complaints of left knee and hip pain. Patient states that at around 9 PM last night patient was trying to turn to the side on hard yahaira and suddenly slipped and fell on her left hip. Patient states that p she was wearing slippery socks which made her fall. Denied any head injury. No neck pain. No loss of consciousness. Patient was unable to ambulate and bear weight on her left hip since then. Denies any back pain. No complaints of chest pain or shortness of breath. No nausea vomiting or abdominal pain. Patient is mildly hyperglycemic on admission. X-ray of the pelvis showed no acute fracture or dislocation in the pelvis or left hip. X-ray of the left knee showed mild degenerative changes. No acute osseous abnormality. CT of the left hip without contrast showed there is acute nondisplaced avulsion type fracture through the greater trochanter of the left proximal femur. Laboratory data showed WBC 7.9, hemoglobin 14.3 Sodium 133, potassium 3.8 and chloride 97, creatinine 0.43, blood sugar 330 liver enzymes are not elevated COVID-19 history of negative. Review of Systems Constitutional: Patient denies any fever or chills . No generalized weakness or weight loss. Abdomen: Patient denied nausea vomiting and diarrhea and abdominal pain. Cardiovascular: Patient denies any chest pain or short of breath no palpitations. Respiratory: patient denied any cough is from production. No shortness of breath Neurologic: Patient denied any numbness or tingling. Patient does have dizziness and headache and ringing ears. Musculoskeletal: left hip pain Psychiatric: Negative Endocrine: No heat or cold intolerance. No recent weight gain. Genitourinary: No dysuria or hematuria. All other 14 point ROS negative except the above Past Medical History Past Medical History: CVA/TIA, Diabetes Mellitus, GERD/Reflux, Hyperlipidemia, Hypertension, Vascular Disorder Additional Past Medical History / Comment(s): IDDM type I, pancreatitis X2 (Last was 05/02), celiac disease, feet neuropathy, chronic low back pain, UTIs, duodenitis/duodenal ulcer, hiatal hernia., states right foot swollen and red , pain right leg., See Cardiology H & P. 8-7 stent illeac artery, History of Any Multi-Drug Resistant Organisms: None Reported Past Surgical History: Back Surgery, Cholecystectomy, Heart Catheterization With Stent, Orthopedic Surgery Additional Past Surgical History / Comment(s): Lumbar fusion, spinal cord stimulator, L knee arthroscopy, EGD, cardiac cath with 3 stents in February 2017, Aortoram 09/18/18. 09-25-18 stent to the illeac artery. Past Anesthesia/Blood Transfusion Reactions: No Reported Reaction Additional Past Anesthesia/Blood Transfusion Reaction / Comm: Never had blood transfusion Date of Last Stent Placement:: 02/2017 Past Psychological History: Anxiety Additional Psychological History / Comment(s): Pt resides with her spouse and their 17 yr old son. She is independent. Smoking Status: Current every day smoker Past Alcohol Use History: None Reported Additional Past Alcohol Use History / Comment(s): Pt is currently trying to quit smoking- smoking 1/2 ppd. Started smoking at age 27. (Hx of 1 ppd) Past Drug Use History: None Reported - Past Family History Father Family Medical History: Cancer, Liver Disease Additional Family Medical History / Comment(s): Idiopathic cirrhosis of liver, Liver CA Mother Family Medical History: Coronary Artery Disease (CAD) Additional Family Medical History / Comment(s): Multiple stents. Mother at the age of 77 or [address] [place] Medications and Allergies Home Medications Medication Instructions Recorded Confirmed Type Gabapentin [Neurontin] 300 mg PO DAILY 03/18/14 07/01/19 History Atorvastatin [Lipitor] 80 mg PO HS 06/26/16 07/01/19 History DULoxetine HCL [Cymbalta] 60 mg PO HS 06/26/16 07/01/19 History Nitroglycerin Sl Tabs [Nitrostat] 0.4 mg SUBLINGUAL Q5M PRN #50 tab 07/02/16 07/01/19 Rx Metoprolol Tartrate 12.5 mg PO BID 09/01/16 07/01/19 History Fenofibrate 160 mg PO HS 03/15/17 07/01/19 History Gabapentin [Neurontin] 900 mg PO HS 05/15/17 07/01/19 History Insulin NPH Hum/Reg Insulin Hm 40 unit SQ QAM 09/01/17 07/01/19 History [NovoLIN 70-30 100 UNIT/ML VIAL] Isosorbide Mononitrate ER [Imdur] 60 mg PO DAILY 09/01/17 07/01/19 History Aspirin 81 mg PO DAILY 10/08/17 07/01/19 History Prasugrel [Effient] 10 mg PO DAILY 10/08/17 07/01/19 History Insulin NPH Hum/Reg Insulin Hm 30 unit SQ HS 09/17/18 07/01/19 History [NovoLIN 70-30 100 UNIT/ML VIAL] Repaglinide [Prandin] 1 mg PO AC-TID 09/17/18 07/01/19 History Insulin Glargine [Lantus] 40 unit SQ HS 10/22/18 07/01/19 History HYDROcodone/APAP 5-325MG [[place] 1 tab PO DAILY PRN 07/01/19 07/01/19 History 5-325] Lisinopril 40 mg PO DAILY 07/01/19 07/01/19 History Omeprazole 20 mg PO DAILY PRN 07/01/19 07/01/19 History metFORMIN HCL [Glucophage] 1,000 mg PO BID 07/01/19 07/01/19 History Allergies Allergy/AdvReac Type Severity Reaction Status Date / Time gluten AdvReac Nausea & Verified 07/01/19 17:01 Vomiting & Diarrhea Physical Exam Vitals: Vital Signs Temp Pulse Pulse Resp BP BP Pulse Ox 07/01/19 15:00 98.1 F 86 17 108/69 92 L 07/01/19 13:05 98.0 F 89 15 162/92 94 L 07/01/19 12:18 86 18 164/97 98 07/01/19 08:12 98.5 F 98 18 158/98 98 Intake and Output 07/01/19 07/01/19 07/01/19 06:59 14:59 22:59 Intake Total 350 Balance 350 Intake: Intake, IV Titration 150 Amount Sodium Chloride 0.9% 1, 150 000 ml @ 75 mls/hr IV . [id number] Rx#:[id number] Oral 200 Other: Voiding Method Indwelling Catheter Weight 64.41 kg PHYSICAL EXAMINATION: Patient is lying in the bed comfortably, no acute distress, awake alert and orie nted.. HEENT: Normocephalic. Neck is supple. Pupils reactive. Nostrils clear. Oral cavity is moist. Ears reveal no drainage. Neck reveals no JVD, carotid bruits, or thyromegaly. CHEST EXAMINATION: Trachea is central. Symmetrical expansion. Lung saeed clear to auscultation and percussion. CARDIAC: Normal S1, S2 with no gallops. No murmurs ABDOMEN: Soft. Bowel sounds normal. No organomegaly. No abdominal bruits. Extremities: reveal no edema. No clubbing or cyanosis Neurologically awake, alert, oriented x3 with well-coordinated movements. No focal deficits noted Skin: No rash or skin lesions. Psychiatric: Coperative. Nonsuicidal Musculoskeletal: Left hip tenderness and decreased range of motion. Results CBC & Chem 7: 07/01/19 15:46 07/01/19 15:46 Labs: Abnormal Lab Results - Last 24 Hours (Table) 07/01/19 07/01/19 07/01/19 Range/Units 13:25 15:46 17:11 Sodium 133 L (137-145) mmol/L Chloride 97 L (98-107) mmol/L Creatinine 0.43 L (0.52-1.04) mg/dL Glucose 330 H (74-99) mg/dL POC Glucose (mg/dL) 290 H 338 H (75-99) mg/dL Total Protein 6.0 L (6.3-8.2) g/dL 07/01/19 Range/Units 20:09 Sodium (137-145) mmol/L Chloride (98-107) mmol/L Creatinine (0.52-1.04) mg/dL Glucose (74-99) mg/dL POC Glucose (mg/dL) 298 H (75-99) mg/dL Total Protein (6.3-8.2) g/dL Assessment and Plan Assessment: Left hip nondisplaced evulsion fracture through the greater trochanter of the left proximal femur. Status post mechanical fall. Hypovolemic hyponatremia Hyperglycemia with uncontrolled diabetes type 1 Diabetic peripheral neuropathy Hypertension Hyperlipidemia Peripheral vascular disease Coronary artery disease with history of stent placement History of lumbar fusion and spinal cord stimulator Anxiety Currently everyday smoker History of CVA with right-sided residual weakness. DVT prophylaxis Plan: Patient will be continued on pain management and continue with home medications including her insulin regimen along with sliding scale for better blood sugar control and titrate dose as needed. Patient currently denied any complaints of chest pain or shortness of breath. Renal function is stable. Patient is a low risk for surgery. We will continue to follow and further recommendations based on clinical course. Thank you for your consult. Time with Patient: Greater than 30
[2019-07-02] MEDS: SODIUM CHLORIDE 0.9% 1,000 ML IV SCH ×2 (02:22→16:53)
[2019-07-02 06:56] LABS: Glucose,Whole Blood 236 mg/dL (75-99)
[2019-07-02] MEDS: PANTOPRAZOLE 40 MG TABLET PO SCH (07:21)
[2019-07-02] MEDS: INSULIN ASPART (NovoLOG) 100 UNIT/ML VIAL SQ SCH ×3 (07:22→12:37)
[2019-07-02 07:56] VITALS: BP 133/76; PULSE 82; RESP 18; TEMP 98.5
[2019-07-02] MEDS ORDERED: GABAPENTIN 300 MG CAP PO SCH (09:00)
[2019-07-02] MEDS ORDERED: INSULIN ISOPHANE SQ SCH (09:00)
[2019-07-02] MEDS ORDERED: INSULIN REGULAR SQ SCH (09:00)
[2019-07-02] MEDS ORDERED: INSULIN DETEMIR (LEVEMIR) 100 UNIT/ML SYR SQ SCH (09:00)
[2019-07-02] MEDS ORDERED: [UNRECOGNIZED DRUG - OTHER] SQ SCH (09:00)
[2019-07-02] MEDS: HYDROmorphone 0.5 MG/0.5 ML SYRINGE IVP PRN ×2 (09:46→13:54)
[2019-07-02] MEDS ORDERED: HYDROcodone/APAP 5-325MG 1 EACH TAB PO PRN (10:54)
[2019-07-02 11:08] LABS: Glucose,Whole Blood 284 mg/dL (75-99)
--- NOTE | 2019-07-02 11:39 | P.DS ---
Providers Date of admission: 07/01/19 11:55 Expected date of discharge: 07/02/19 Attending physician: Kiran Humphrey Consults: 07/01/19 11:55 Consult Physician Urgent Consulting Provider: Jannette Lainez Consult Reason/Comments: Medical management Do you want consulting provider notified?: Yes Primary care physician: Fabiola Land - Discharge Diagnosis(es) (1) Status post fall Current Visit: Yes Status: Acute (2) Neuropathy Current Visit: Yes Status: Acute (3) History of CVA (cerebrovascular accident) Current Visit: Yes Status: Acute (4) History of vascular disorder Current Visit: Yes Status: Acute (5) History of lumbar surgery Current Visit: Yes Status: Acute (6) Greater trochanter fracture Current Visit: Yes Status: Acute Priority: Medium (7) Diabetes mellitus Current Visit: No Status: Acute (8) HTN (hypertension) Current Visit: No Status: Acute (9) Hyperlipemia Current Visit: No Status: Acute Hospital Course: Patient is a pleasant 58-year-old female who is seen and examined at bedside for follow-up evaluation in regards to her left hip. Patient was admitted yesterday, 07/01/2019, after a fall resulting in a left greater trochanter avulsion fracture. Patient's pain has been better controlled since her admission to the hospital. She's been using a walker and working with physical therapy to aid in ambulation. She is 50% weightbearing on the left lower extremity. At this time, she does feel her pain is adequately controlled where she will be ready for discharge home. She does admit to a history of right- sided stroke and has residual weakness on her right side affecting both her right upper extremity and right lower extremity. She is still able to ambulate with the assistance of a walker. She admits to neuropathy of bilateral lower extremities but has not had any change in her symptoms. She is eating and voiding without difficulty. She denies any other injuries at the time of her fall. We discussed following discharge, she should continue use a walker to aid in ambulation. She should avoid excessive activities the left lower extremity. She may weight-bear with 50% weightbearing on the left lower extremity. We also discussed we'll plan to have her follow-up with Dr. Kiran Humphrey at [facility] approximate 1-2 weeks for further evaluation in the outpatient setting. A prescription for a walker has been signed and provided case management for the patient to obtain to help her in ambulation the time of discharge. Patient is mixed taking gabapentin and Vicodin the outpatient setting. She states she has been unable to get these prescriptions as she is transferring to Dr. Land as her primary care provider but has not seen her yet. Patient's past medical history includes CVA/TIA, diabetes mellitus, hyperlipidemia, hypertension, lower extremity neuropathy and vascular disorder. She also admits to multiple surgeries at her lumbar spine as well as neuro stimulator placement which she is not currently using. MAPS has been reviewed today, 07/02/2019, with an Overall Overdose Risk Score of 170. An "Opiod Start Talking" Form has been signed by the patient and myself in place in the patient's chart. A prescription has been written for [place] 5 mg/325 mg 1 tab every 8 hours as needed for pain, dispensed #21. Patient should discontinue previously prescribed Vicodin in the outpatient setting if she has any of this medication left. She may resume other previously prescribed home medications. Physical Exam: Patient is awake, alert, and oriented 3 Vital signs stable Good chest excursion with deep inspiration and expiration Abdomen soft nontender No signs or symptoms of DVT; no calf pain Extensor hallucis longus, plantarflexion, and dorsiflexion positive sustained bilateral lower extremities Examination of the left hip does not show any evidence of erythema, bruising, or swelling over the left greater trochanter Pain on palpation over the left greater trochanter Patient is able to perform left hip flexion without difficulty Some increased pain with abduction of the left hip Changes in sensation in bilateral feet due to chronic neuropathy without change Patient Condition at Discharge: Stable Plan - Discharge Summary New Discharge Prescriptions: New HYDROcodone/APAP 5-325MG [[place] 5] 1 each PO Q8HR PRN #21 tab PRN Reason: Pain No Action Gabapentin [Neurontin] 300 mg PO DAILY DULoxetine HCL [Cymbalta] 60 mg PO HS Atorvastatin [Lipitor] 80 mg PO HS Nitroglycerin Sl Tabs [Nitrostat] 0.4 mg SUBLINGUAL Q5M PRN #50 tab PRN Reason: Chest Pain Metoprolol Tartrate 12.5 mg PO BID Fenofibrate 160 mg PO HS Gabapentin [Neurontin] 900 mg PO HS Isosorbide Mononitrate ER [Imdur] 60 mg PO DAILY Insulin NPH Hum/Reg Insulin Hm [NovoLIN 70-30 100 UNIT/ML VIAL] 40 unit SQ QAM Prasugrel [Effient] 10 mg PO DAILY Aspirin 81 mg PO DAILY Repaglinide [Prandin] 1 mg PO AC-TID Insulin NPH Hum/Reg Insulin Hm [NovoLIN 70-30 100 UNIT/ML VIAL] 30 unit SQ HS Insulin Glargine [Lantus] 40 unit SQ HS Lisinopril 40 mg PO DAILY HYDROcodone/APAP 5-325MG [[place] 5-325] 1 tab PO DAILY PRN PRN Reason: Pain metFORMIN HCL [Glucophage] 1,000 mg PO BID Omeprazole 20 mg PO DAILY PRN PRN Reason: gerd Discharge Medication List Gabapentin [Neurontin] 300 mg PO DAILY 03/18/14 [History] Atorvastatin [Lipitor] 80 mg PO HS 06/26/16 [History] DULoxetine HCL [Cymbalta] 60 mg PO HS 06/26/16 [History] Nitroglycerin Sl Tabs [Nitrostat] 0.4 mg SUBLINGUAL Q5M PRN #50 tab 07/02/16 [Rx] Metoprolol Tartrate 12.5 mg PO BID 09/01/16 [History] Fenofibrate 160 mg PO HS 03/15/17 [History] Gabapentin [Neurontin] 900 mg PO HS 05/15/17 [History] Insulin NPH Hum/Reg Insulin Hm [NovoLIN 70-30 100 UNIT/ML VIAL] 40 unit SQ QAM 09/01/17 [History] Isosorbide Mononitrate ER [Imdur] 60 mg PO DAILY 09/01/17 [History] Aspirin 81 mg PO DAILY 10/08/17 [History] Prasugrel [Effient] 10 mg PO DAILY 10/08/17 [History] Insulin NPH Hum/Reg Insulin Hm [NovoLIN 70-30 100 UNIT/ML VIAL] 30 unit SQ HS 09/17/18 [History] Repaglinide [Prandin] 1 mg PO AC-TID 09/17/18 [History] Insulin Glargine [Lantus] 40 unit SQ HS 10/22/18 [History] HYDROcodone/APAP 5-325MG [[place] 5-325] 1 tab PO DAILY PRN 07/01/19 [History] Lisinopril 40 mg PO DAILY 07/01/19 [History] Omeprazole 20 mg PO DAILY PRN 07/01/19 [History] metFORMIN HCL [Glucophage] 1,000 mg PO BID 07/01/19 [History] HYDROcodone/APAP 5-325MG [[place] 5] 1 each PO Q8HR PRN #21 tab 07/02/19 [Rx] Follow up Appointment(s)/Referral(s): [facility],Equipment [NON-STAFF] - (Rollator will be delivered to bedside before discharge. Please contact [facility] if there are any issues with your rollator. ) [facility], [NON-STAFF] - Fabiola Land MD [Primary Care Provider] - 07/09/19 10:40 am (Telehealth visit. Office will call you with details. Thank you.) Kiran Humphrey DO [Doctor of Osteopathic Medicine] - 2 Weeks (Patient may follow-up with Dr. Kiran Humphrey at [facility] in 1-2 weeks following discharge. ) Activity/Diet/Wound Care/Special Instructions: 1. 50% weightbearing on the left lower extremity 2. Avoid excessive activities with the left lower extremity 3. Use walker to aid in ambulation 4. Take medications as prescribed 5. May call [facility] at [phone] if any ques tions or concerns Discharge Disposition: HOME SELF-CARE
[2019-07-02] MEDS ORDERED: INSULIN ASPART (NovoLOG) 100 UNIT/ML VIAL SQ SCH (16:00)
== END 2019-07-02 18:04 | disposition home health service (06) | DRG 536 ==
LOC: EC 08:11 → 4SSUR 11:55
PROVIDERS: ADMIT Orthopaedic Surgery; ATTEND Orthopaedic Surgery
DX: S72.112A Displaced fracture of greater trochanter of left femur, initial encounter for closed fracture (principal); E87.1 Hypo-osmolality and hyponatremia; I69.351 Hemiplegia and hemiparesis following cerebral infarction affecting right dominant side; E11.42 Type 2 diabetes mellitus with diabetic polyneuropathy; E11.51 Type 2 diabetes mellitus with diabetic peripheral angiopathy without gangrene; E78.5 Hyperlipidemia, unspecified; E86.1 Hypovolemia; F17.200 Nicotine dependence, unspecified, uncomplicated; F41.9 Anxiety disorder, unspecified; I10 Essential (primary) hypertension; Z11.59 Encounter for screening for other viral diseases; I25.10 Atherosclerotic heart disease of native coronary artery without angina pectoris; K90.0 Celiac disease; G89.29 Other chronic pain; K21.9 Gastro-esophageal reflux disease without esophagitis; K44.9 Diaphragmatic hernia without obstruction or gangrene; M54.5 Low back pain; Z79.02 Long term (current) use of antithrombotics/antiplatelets; Z79.4 Long term (current) use of insulin; Z79.82 Long term (current) use of aspirin; Z79.899 Other long term (current) drug therapy; Z87.11 Personal history of peptic ulcer disease; Z98.1 Arthrodesis status; Z95.5 Presence of coronary angioplasty implant and graft; Z87.440 Personal history of urinary (tract) infections; Z90.49 Acquired absence of other specified parts of digestive tract; Z80.0 Family history of malignant neoplasm of digestive organs; Z82.49 Family history of ischemic heart disease and other diseases of the circulatory system; Z83.79 Family history of other diseases of the digestive system; W01.0XXA Fall on same level from slipping, tripping and stumbling without subsequent striking against object, initial encounter
CPT/HCPCS: 73502; 80053; 85027; 87635; 96374; 96375; 99285

== ENCOUNTER 2019-08-04 09:05 | Observation (INO) | payer MEDICARE ==
[2019-08-04] MEDS ORDERED: HYDROmorphone 1 MG/ML 1 ML SYRINGE IVP STA (09:27)
[2019-08-04] MEDS ORDERED: SODIUM CHLORIDE 0.9% 1,000 ML IV STA ×2 (09:27→10:22)
--- NOTE | 2019-08-04 09:31 | ED ---
General Adult HPI - General Chief complaint: Extremity Problem,Nontraumatic Stated complaint: rt leg pain Time Seen by Provider: 08/04/19 09:16 Source: patient, RN notes reviewed Mode of arrival: wheelchair Limitations: no limitations - History of Present Illness Initial comments: Patient is a pleasant 58-year-old female presenting to the emergency department with concerns for right leg discomfort. Symptoms have been severe for the past 2 days, however started somewhat prior to that. Patient has discomfort mostly right lower leg, the calf and lower. Patient has noticed some redness of the lower leg. No fevers. Patient does have history of stroke with chronic right- sided weakness as well as neuropathy. Patient did have left hip fracture 1 m onth ago and now is using her right side much more. Patient also has muscle spasms that can last a half an hour. - Related Data Home Medications Medication Instructions Recorded Confirmed Gabapentin [Neurontin] 300 mg PO DAILY 03/18/14 08/04/19 Atorvastatin [Lipitor] 80 mg PO HS 06/26/16 08/04/19 DULoxetine HCL [Cymbalta] 60 mg PO HS 06/26/16 08/04/19 Metoprolol Tartrate 12.5 mg PO BID 09/01/16 08/04/19 Fenofibrate 160 mg PO HS 03/15/17 08/04/19 Gabapentin [Neurontin] 900 mg PO HS 05/15/17 08/04/19 Isosorbide Mononitrate ER [Imdur] 60 mg PO DAILY 09/01/17 08/04/19 Aspirin 81 mg PO DAILY 10/08/17 08/04/19 Prasugrel [Effient] 10 mg PO DAILY 10/08/17 08/04/19 Repaglinide [Prandin] 1 mg PO AC-TID 09/17/18 08/04/19 Insulin Glargine [Lantus] 40 unit SQ HS 10/22/18 08/04/19 Lisinopril 40 mg PO DAILY 07/01/19 08/04/19 Omeprazole 20 mg PO DAILY PRN 07/01/19 08/04/19 metFORMIN HCL [Glucophage] 1,000 mg PO BID 07/01/19 08/04/19 HYDROcodone/APAP 5-325MG [[place] 5] 1 tab PO Q8HR PRN 08/04/19 08/04/19 INSULIN ASPART (NovoLOG) [NovoLOG See Protocol SQ ACHS 08/04/19 08/04/19 (formulary)] Pantoprazole Sodium [Protonix] 40 mg PO BID 08/04/19 08/04/19 Previous Rx's Medication Instructions Recorded Nitroglycerin Sl Tabs [Nitrostat] 0.4 mg SUBLINGUAL Q5M PRN #50 tab 07/02/16 Allergies Allergy/AdvReac Type Severity Reaction Status Date / Time gluten AdvReac Nausea & Verified 08/04/19 09:55 Vomiting & Diarrhea Review of Systems ROS Statement: Those systems with pertinent positive or pertinent negative responses have been documented in the HPI. ROS Other: All systems not noted in ROS Statement are negative. Constitutional: Denies: fever Eyes: Denies: eye pain ENT: Denies: ear pain Respiratory: Denies: cough, dyspnea Cardiovascular: Denies: chest pain Endocrine: Denies: fatigue Gastrointestinal: Denies: abdominal pain Genitourinary: Denies: dysuria Musculoskeletal: Reports: as per HPI. Denies: back pain Skin: Reports: as per HPI Past Medical History Past Medical History: CVA/TIA, Diabetes Mellitus, GERD/Reflux, Hyperlipidemia, Hypertension, Vascular Disorder Additional Past Medical History / Comment(s): IDDM type I, pancreatitis X2 (Last was 05/02), celiac disease, feet neuropathy, chronic low back pain, UTIs, duodenitis/duodenal ulcer, hiatal hernia., states right foot swollen and red , pain right leg., See Cardiology H & P. 8-7 stent illeac artery, History of Any Multi-Drug Resistant Organisms: None Reported Past Surgical History: Back Surgery, Cholecystectomy, Heart Catheterization With Stent, Orthopedic Surgery Additional Past Surgical History / Comment(s): Lumbar fusion, spinal cord stimulator, L knee arthroscopy, EGD, cardiac cath with 3 stents in February 2017, Aortoram 09/18/18. 09-25-18 stent to the illeac artery. Past Anesthesia/Blood Transfusion Reactions: No Reported Reaction Additional Past Anesthesia/Blood Transfusion Reaction / Comment(s): Never had blood transfusion Date of Last Stent Placement:: 02/2017 Past Psychological History: Anxiety Smoking Status: Current every day smoker Past Alcohol Use History: None Reported Past Drug Use History: None Reported - Past Family History Father Family Medical History: Cancer, Liver Disease Additional Family Medical History / Comment(s): Idiopathic cirrhosis of liver, Liver CA Mother Family Medical History: Coronary Artery Disease (CAD) Additional Family Medical History / Comment(s): Multiple stents. Mother at the age of 77 or 78yrs from [place]. General Exam Limitations: no limitations General appearance: alert, in no apparent distress Head exam: Present: normocephalic Eye exam: Present: normal appearance Neck exam: Present: normal inspection Respiratory exam: Present: normal lung sounds bilaterally Cardiovascular Exam: Present: regular rate, normal rhythm Expanded Peripheral pulses: 2+: Dorsalis Pedis (R), Dorsalis Pedis (L) GI/Abdominal exam: Present: soft. Absent: tenderness Extremities exam: Present: calf tenderness (Mild right calf tenderness), other (Lower right leg below the calf with patch of erythema approximately 5 x 6 cm. Very tender to light touch.). Absent: pedal edema Neurological exam: Present: alert, other (Patient does have some weakness of the right leg with decreased sensation however states she states that is chronic and unchanged.) Psychiatric exam: Present: normal affect, normal mood Skin exam: Present: normal color Course Vital Signs 08/04/19 09:09 Temperature 98.4 F Pulse Rate 89 Respiratory 18 Rate Blood Pressure 135/96 O2 Sat by Pulse 98 Oximetry Medical Decision Making - Medical Decision Making Patient reevaluated and is somewhat improved following fluids and pain m edication. Patient states discomfort is still moderate to severe however. Patient is resting comfortably in bed. Case was discussed in detail with Dr. Esparza, covering for Dr. Land, who will admit. There is concern for cellulitis as well as hyperglycemia. - Lab Data Result diagrams: 08/04/19 09:44 08/04/19 09:44 Lab Results 08/04/19 08/04/19 08/04/19 Range/Units 09:44 09:44 09:44 WBC 7.9 (3.8-10.6) k/uL RBC 5.41 H (3.80-5.40) m/uL Hgb 15.9 (11.4-16.0) gm/dL Hct 47.2 H (34.0-46.0) % MCV 87.1 (80.0-100.0) fL MCH 29.3 (25.0-35.0) pg MCHC 33.6 (31.0-37.0) g/dL RDW 13.3 (11.5-15.5) % Plt Count 174 (150-450) k/uL Neutrophils % 67 % Lymphocytes % 24 % Monocytes % 5 % Eosinophils % 3 % Basophils % 1 % Neutrophils # 5.3 (1.3-7.7) k/uL Lymphocytes # 1.9 (1.0-4.8) k/uL Monocytes # 0.4 (0-1.0) k/uL Eosinophils # 0.2 (0-0.7) k/uL Basophils # 0.1 (0-0.2) k/uL PT 9.6 (9.0-12.0) sec INR 0.9 (<1.2) APTT 22.2 (22.0-30.0) sec Sodium 132 L (137-145) mmol/L Potassium 4.4 (3.5-5.1) mmol/L Chloride 98 (98-107) mmol/L Carbon Dioxide 22 (22-30) mmol/L Anion Gap 12 mmol/L BUN 12 (7-17) mg/dL Creatinine 0.39 L (0.52-1.04) mg/dL Est GFR (CKD-EPI)AfAm >90 (>60 ml/min/1.73 sqM) Est GFR (CKD-EPI)NonAf >90 (>60 ml/min/1.73 sqM) Glucose 599 H* (74-99) mg/dL POC Glucose (mg/dL) (75-99) mg/dL POC Glu Systems Analyst Engineer ID Calcium 9.2 (8.4-10.2) mg/dL Magnesium 1.6 (1.6-2.3) mg/dL Total Bilirubin 0.5 (0.2-1.3) mg/dL AST 15 (14-36) U/L ALT 16 (4-34) U/L Alkaline Phosphatase 87 (38-126) U/L Total Protein 7.0 (6.3-8.2) g/dL Albumin 4.2 (3.5-5.0) g/dL 08/04/19 Range/Units 11:18 WBC (3.8-10.6) k/uL RBC (3.80-5.40) m/uL Hgb (11.4-16.0) gm/dL Hct (34.0-46.0) % MCV (80.0-100.0) fL MCH (25.0-35.0) pg MCHC (31.0-37.0) g/dL RDW (11.5-15.5) % Plt Count (150-450) k/uL Neutrophils % % Lymphocytes % % Monocytes % % Eosinophils % % Basophils % % Neutrophils # (1.3-7.7) k/uL Lymphocytes # (1.0-4.8) k/uL Monocytes # (0-1.0) k/uL Eosinophils # (0-0.7) k/uL Basophils # (0-0.2) k/uL PT (9.0-12.0) sec INR (<1.2) APTT (22.0-30.0) sec Sodium (137-145) mmol/L Potassium (3.5-5.1) mmol/L Chloride (98-107) mmol/L Carbon Dioxide (22-30) mmol/L Anion Gap mmol/L BUN (7-17) mg/dL Creatinine (0.52-1.04) mg/dL Est GFR (CKD-EPI)AfAm (>60 ml/min/1.73 sqM) Est GFR (CKD-EPI)NonAf (>60 ml/min/1.73 sqM) Glucose (74-99) mg/dL POC Glucose (mg/dL) 439 H (75-99) mg/dL POC Glu Systems Analyst Engineer Puneet Young Calcium (8.4-10.2) mg/dL Magnesium (1.6-2.3) mg/dL Total Bilirubin (0.2-1.3) mg/dL AST (14-36) U/L ALT (4-34) U/L Alkaline Phosphatase (38-126) U/L Total Protein (6.3-8.2) g/dL Albumin (3.5-5.0) g/dL - Radiology Data Radiology results: report reviewed (Ultrasound right leg negative for DVT), image reviewed (X-ray right tib-fib shows no acute fracture or displacement. Joint space loss and demineralization present.) Disposition Clinical Impression: Cellulitis, Hyperglycemia Disposition: ADMITTED IP TO THIS [facility] Is patient prescribed a controlled substance at d/c from ED?: No Referrals: Fabiola Land MD [Primary Care Provider] - 1-2 days Decision Time: 11:36
[2019-08-04 09:57] LABS: Basophils # (A) 0.1 k/uL (0-0.2); Basophils % (A) 1 %; Eosinophils # (A) 0.2 k/uL (0-0.7); Eosinophils % (A) 3 %; HCT 47.2 % (34.0-46.0); HGB 15.9 gm/dL (11.4-16.0); Lymphocytes # (A) 1.9 k/uL (1.0-4.8); Lymphocytes % (A) 24 %; MCH 29.3 pg (25.0-35.0); MCHC 33.6 g/dL (31.0-37.0); MCV 87.1 fL (80.0-100.0); Mean Platelet Volume 7.8; Monocytes # (A) 0.4 k/uL (0-1.0); Monocytes % (A) 5 %; Neutrophils # (A) 5.3 k/uL (1.3-7.7); Neutrophils % (A) 67 %; Platelet Count 174 k/uL (150-450); RBC 5.41 m/uL (3.80-5.40); RDW 13.3 % (11.5-15.5); WBC 7.9 k/uL (3.8-10.6)
[2019-08-04 10:07] LABS: ALT 16 U/L (4-34); AST 15 U/L (14-36); African American GFR (CKD) >90 (>60 ml/min/1.73 sqM); Albumin 4.2 g/dL (3.5-5.0); Alkaline Phosphatase 87 U/L (38-126); Anion Gap 12 mmol/L; Blood Urea Nitrogen 12 mg/dL (7-17); Calcium 9.2 mg/dL (8.4-10.2); Carbon Dioxide 22 mmol/L (22-30); Chloride 98 mmol/L (98-107); Magnesium 1.6 mg/dL (1.6-2.3); Non-African American GFR(CKD) >90 (>60 ml/min/1.73 sqM); Potassium 4.4 mmol/L (3.5-5.1); Sodium 132 mmol/L (137-145); Total Bilirubin 0.5 mg/dL (0.2-1.3)
[2019-08-04 10:12] LABS: INR 0.9 (<1.2); Partial Thromboplastin Time 22.2 sec (22.0-30.0); Prothrombin Time 9.6 sec (9.0-12.0)
[2019-08-04] MEDS ORDERED: ORPHENADRINE 30 MG/ML 2 ML VIAL IVP STA (10:14)
[2019-08-04 10:16] LABS: Glucose 599 mg/dL (74-99)
--- NOTE | 2019-08-04 10:27 | XR ---
EXAMINATION TYPE: XR tibia fibula RT DATE OF EXAM: 08/04/2019 CLINICAL HISTORY: Slip and fall injury one month ago with hip fracture, increasing pain in right leg. TECHNIQUE: Two views of the right leg are obtained. COMPARISON: None. FINDINGS: Demineralization is present. There is no acute or subacute displaced fracture seen in the right tibia or fibula. [id number] tricompartmental joint space loss and mild spurring in the ri ght knee. Ankle mortise symmetry is preserved. Some superficial proximal posterior vascular calcifica tion is present. IMPRESSION: As above.
--- NOTE | 2019-08-04 10:57 | US ---
EXAMINATION TYPE: US venous doppler duplex LE RT DATE OF EXAM: 08/04/2019 10:47 AM COMPARISON: NONE CLINICAL HISTORY: pain, please evaluate calf also. SIDE PERFORMED: right TECHNIQUE: The lower extremity deep venous system is examined utilizing real time linear array sonog fortunato with graded compression, doppler sonography and color-flow sonography. VESSELS IMAGED: External Iliac Vein (EIV) Common Femoral Vein Deep Femoral Vein Greater Saphenous Vein * Femoral Vein Popliteal Vein Small Saphenous Vein * Proximal Calf Veins (* superficial vessels) Right Leg: Negative for DVT PTV's also evaluated per order. Grayscale, color doppler, spectral doppler imaging performed of the deep veins of the right lower ext remity. There is normal flow, compressibility, vascular waveforms. The left few images at site of p ain posterior calf show no suspicious focal fluid collection. IMPRESSION: No ultrasound evidence for acute DVT in the right lower extremity.
[2019-08-04 11:20] LABS: Glucose,Whole Blood 439 mg/dL (75-99)
[2019-08-04] MEDS ORDERED: INSULIN REGULAR 100 UNIT/ML VIAL IV ONE (11:36)
[2019-08-04] MEDS ORDERED: NALOXONE 0.4 MG/ML 1 ML VIAL IV PRN (11:37)
[2019-08-04] MEDS ORDERED: HYDROmorphone 1 MG/ML 1 ML SYRINGE IVP PRN (11:37)
[2019-08-04 13:05] LABS: Glucose,Whole Blood 280 mg/dL (75-99)
[2019-08-04] MEDS: INSULIN ASPART (NovoLOG) 100 UNIT/ML VIAL SQ SCH ×4 (13:15→21:37)
[2019-08-04] MEDS ORDERED: NON FORMULARY DRUG (Omeprazole [Omeprazole] 20 MG) PO PRN (13:38)
[2019-08-04] MEDS ORDERED: NITROGLYCERIN SL TABS 0.4 MG TAB SUBLINGUAL PRN (13:38)
[2019-08-04] MEDS ORDERED: KETOROLAC 30 MG/ML 1 ML VIAL IVP PRN (14:54)
--- NOTE | 2019-08-04 15:06 | P.HPIM ---
History of Present Illness This is a 58-year-old female came in with compensative of severe pain in the right leg 10/10 in severity sharp in nature. Patient is going on for about 3-4 days. Patient was having the crampy pain predominantly at the nighttime and facet collation for last few days. Patient is on statin and fenofibrate at home I'll obtain a CK. Patient only has minimal redness and minimal swelling but had pain and tenderness is extremely severe patient has significant loss of fat in both legs. Patient says she has celiac disease and has been losing weight. Patient had a stroke in the past with some residual right-sided weakness as per the patient, which I didn't appreciate clinically. Patient denied any fever chills patient doesn't have any leukocytosis. Patient patient blood sugars are extremely high but patient is not in DKA. Patient had an ultrasound of the right lower extremity which did not show any DVT x-ray did not show any fractures patient had a recent the greater trochanteric fracture of the left leg which was surgically addressed. Review of Systems REVIEW OF SYSTEMS: CONSTITUTIONAL: No fever, no malaise, no fatigue. HEENT: No recent visual problems or hearing problems. Denied any sore throat. CARDIOVASCULAR: No chest pain, orthopnea, PND, no palpitations, no syncope. PULMONARY: No shortness of breath, no cough, no hemoptysis. GASTROINTESTINAL: No diarrhea, no nausea, no vomiting, no abdominal pain. NEUROLOGICAL: No headaches, no weakness, no numbness. HEMATOLOGICAL: Denies any bleeding or petechiae. GENITOURINARY: Denies any burning micturition, frequency, or urgency. MUSCULOSKELETAL/RHEUMATOLOGICAL: As mentioned in HPI ENDOCRINE: Denies any polyuria or polydipsia. The rest of the 14-point review of systems is negative. Past Medical History Past Medical History: CVA/TIA, Diabetes Mellitus, GERD/Reflux, Hyperlipidemia, Hypertension, Vascular Disorder Additional Past Medical History / Comment(s): Pt recently admitted to [facility] on 07/01/19 with fall with L greated trochanter avultion fracture. Other hx: IDDM, neuropathy bilateral feet, pancreatitis X2 (Last was 05/02), CVA with R sided weakness, L hip fracture, PAD, celiac disease, chronic low back pain, UTIs, duodenitis/duodenal ulcer, hiatal hernia., History of Any Multi-Drug Resistant Organisms: None Reported Past Surgical History: Back Surgery, Cholecystectomy, Heart Catheterization With Stent, Orthopedic Surgery Additional Past Surgical History / Comment(s): Lumbar fusion, spinal cord stimulator, L knee arthroscopy, EGD, PATRICIA, cardiac cath with 3 stents in February 2017, Aortoram 09/18/18, 09-25-18 stent to the L illeac artery. Past Anesthesia/Blood Transfusion Reactions: No Reported Reaction Additional Past Anesthesia/Blood Transfusion Reaction / Comment(s): Never had blood transfusion Date of Last Stent Placement:: 02/2017 Smoking Status: Current every day smoker - Past Family History Father Family Medical History: Cancer, Liver Disease Additional Family Medical History / Comment(s): Idiopathic cirrhosis of liver, Liver CA Mother Family Medical History: Coronary Artery Disease (CAD) Additional Family Medical History / Comment(s): Multiple stents. Mother at the age of 77 or 78yrs from [place]. Medications and Allergies Home Medications Medication Instructions Recorded Confirmed Type Gabapentin [Neurontin] 300 mg PO DAILY 03/18/14 08/04/19 History Atorvastatin [Lipitor] 80 mg PO HS 06/26/16 08/04/19 History DULoxetine HCL [Cymbalta] 60 mg PO HS 06/26/16 08/04/19 History Nitroglycerin Sl Tabs [Nitrostat] 0.4 mg SUBLINGUAL Q5M PRN #50 tab 07/02/16 08/04/19 Rx Metoprolol Tartrate 12.5 mg PO BID 09/01/16 08/04/19 History Fenofibrate 160 mg PO HS 03/15/17 08/04/19 History Gabapentin [Neurontin] 900 mg PO HS 05/15/17 08/04/19 History Isosorbide Mononitrate ER [Imdur] 60 mg PO DAILY 09/01/17 08/04/19 History Aspirin 81 mg PO DAILY 10/08/17 08/04/19 History Prasugrel [Effient] 10 mg PO DAILY 10/08/17 08/04/19 History Repaglinide [Prandin] 1 mg PO AC-TID 09/17/18 08/04/19 History Insulin Glargine [Lantus] 40 unit SQ HS 10/22/18 08/04/19 History Lisinopril 40 mg PO DAILY 07/01/19 08/04/19 History Omeprazole 20 mg PO DAILY PRN 07/01/19 08/04/19 History metFORMIN HCL [Glucophage] 1,000 mg PO BID 07/01/19 08/04/19 History HYDROcodone/APAP 5-325MG [[place] 5] 1 tab PO Q8HR PRN 08/04/19 08/04/19 History INSULIN ASPART (NovoLOG) [NovoLOG See Protocol SQ ACHS 08/04/19 08/04/19 History (formulary)] Pantoprazole Sodium [Protonix] 40 mg PO BID 08/04/19 08/04/19 History Allergies Allergy/AdvReac Type Severity Reaction Status Date / Time gluten AdvReac Nausea & Verified 08/04/19 09:55 Vomiting & Diarrhea Physical Exam Vitals: Vital Signs Temp Pulse Pulse Resp BP BP Pulse Ox 08/04/19 14:28 80 18 08/04/19 12:46 98.9 F 80 18 110/67 96 08/04/19 12:33 98.4 F 75 16 128/89 97 08/04/19 12:16 75 16 128/89 97 08/04/19 09:09 98.4 F 89 18 135/96 98 Intake and Output 08/03/19 08/04/19 08/04/19 22:59 06:59 14:59 Intake Total 2260 Balance 2260 Intake: Amount of Fluid Infused ( 1500 ml) Intake, IV Titration 180 Amount Sodium Chloride 0.9% 1, 130 000 ml @ 130 mls/hr IV . Q7H42M STA Rx#:[id number] ceFAZolin 1,000 mg In 50 Sodium Chloride 0.9% 50 ml @ 100 mls/hr IVPB ONCE STA Rx#:[id number] Oral 580 Other: Voiding Method Toilet Weight 63.503 kg PHYSICAL EXAMINATION: GENERAL: The patient is alert and oriented x3, not in any acute distress. Well developed, well nourished. HEENT: Pupils are round and equally reacting to light. EOMI. No scleral icterus. No conjunctival pallor. Normocephalic, atraumatic. No pharyngeal erythema. No thyromegaly. CARDIOVASCULAR: S1 and S2 present. No murmurs, rubs, or gallops. PULMONARY: Chest is clear to auscultation, no wheezing or crackles. ABDOMEN: Soft, nontender, nondistended, normoactive bowel sounds. No palpable organomegaly. MUSCULOSKELETAL: Patient has mild swelling minimal redness and extreme tenderness in the right calf below the mid tibia. EXTREMITIES: No cyanosis, clubbing, or pedal edema. NEUROLOGICAL: Gross neurological examination did not reveal any focal deficits. SKIN: No rashes. Results CBC & Chem 7: 08/04/19 09:44 08/04/19 09:44 Labs: Abnormal Lab Results - Last 24 Hours (Table) 08/04/19 08/04/19 08/04/19 Range/Units 09:44 09:44 11:18 RBC 5.41 H (3.80-5.40) m/uL Hct 47.2 H (34.0-46.0) % Sodium 132 L (137-145) mmol/L Creatinine 0.39 L (0.52-1.04) mg/dL Glucose 599 H* (74-99) mg/dL POC Glucose (mg/dL) 439 H (75-99) mg/dL 08/04/19 Range/Units 13:03 RBC (3.80-5.40) m/uL Hct (34.0-46.0) % Sodium (137-145) mmol/L Creatinine (0.52-1.04) mg/dL Glucose (74-99) mg/dL POC Glucose (mg/dL) 280 H (75-99) mg/dL Thrombosis Risk Factor Assmnt - Choose All That Apply Any of the Below Risk Factors Present?: Yes Each Factor Represents 1 point: Age 41-60 years Other Risk Factors: Yes Other congenital or acquired thrombophilia - If yes, enter type in comment: No Thrombosis Risk Factor Assessment Total Risk Factor Score: 1 Thrombosis Risk Factor Assessment Level: Low Risk Assessment and Plan Plan: -Right leg pain: Patient is presently being treated for cellulitis with ceftezole and also the physical findings are not that impressive for several lig htest my concern is he the fascia does have myositis. We will obtain a CAT scan to rule out any fascia Lefty and they can be a competent of mild ascites which can be noninfectious as well secondary to statins along with fenofibrate patient is an 80 mg of atorvastatin along with feeling of hydrate. I'll obtain a CK level. Patient will be continued on IV fluids can you with antibiotics and infectious disease was consulted. -Small pressure ulcer in the plantar surface of the left great toe: Patient will benefit from evaluation by podiatry and local wound care -Severe hyperglycemia which improved now with IV insulin and patient will be resumed on her home regimen will titrate the insulin depending on her blood sugars probably due to noncompliance -Hyponatremia: Sodium hyponatremia from hyperglycemia expected to improve with the correction of blood sugars continue with IV fluids -History of celiac disease: Patient need to be on gluten-free diet Hypogastrics visual reflux disease -Hyperlipidemia -Hypertension -cerebro vascular accident in the past -Peripheral vascular disease -Nicotine abuse: Counseling was provided DVT prophylaxis was opted in a separate
[2019-08-04] MEDS: HYDROcodone/APAP 5-325MG 1 EACH TAB PO PRN ×2 (15:23→23:05)
[2019-08-04] MEDS: SODIUM CHLORIDE 0.9% 1,000 ML IV SCH ×2 (15:26→23:06)
--- NOTE | 2019-08-04 16:00 | CT ---
EXAMINATION TYPE: CT lower leg RT w con DATE OF EXAM: 08/04/2019 COMPARISON: Right leg x-ray from earlier today. HISTORY: Fasciitis. Recent fall injury one month ago with recurring severe pain. CT DLP: 169.2 mGycm Automated exposure control for dose reduction was used. CONTRAST: Performed with IV Contrast, patient injected with 100 mL of Isovue 300. FINDINGS: No acute or subacute displaced fracture in the right tibia or fibula. Muscle bulk is fairly well-main tained in the right leg. No suspicious foci of air identified. No well-formed fluid collection or abs cess. Mild subcutaneous edema near the level of ankle joint. Mild tricompartment degenerative changes in her level of right knee. No suspicious bony destruction. Distal Achilles tendon is intact. Small inferior calcaneal spur incidentally noted. No suspicious enhancement is seen. Good flow in the popli teal artery with poor or absent flow within the posterior tibial artery shortly after its origin . So me distal reconstitution is present. Posterior tibial trunk shows Good flow with three-vessel flow mi dline and good two-vessel flow distal leg. IMPRESSION: As above.
[2019-08-04 16:41] LABS: Glucose,Whole Blood 362 mg/dL (75-99)
[2019-08-04] MEDS: REPAGLINIDE 1 MG TAB PO SCH (17:10)
[2019-08-04] MEDS ORDERED: DIAZEPAM 5 MG TAB PO PRN (18:10)
[2019-08-04 20:39] LABS: Glucose,Whole Blood 283 mg/dL (75-99)
[2019-08-04] MEDS ORDERED: ATORVASTATIN 80 MG TAB PO SCH (21:00)
[2019-08-04] MEDS ORDERED: DULoxetine HCL 60 MG CAPSULE.DR PO SCH (21:00)
[2019-08-04] MEDS ORDERED: ATORVASTATIN 40 MG TAB PO SCH (21:00)
[2019-08-04] MEDS ORDERED: PANTOPRAZOLE 40 MG TABLET PO SCH (21:00)
[2019-08-04] MEDS ORDERED: GABAPENTIN 300 MG CAP PO SCH (21:00)
[2019-08-04] MEDS ORDERED: metFORMIN 500 MG TAB PO SCH (21:00)
[2019-08-04] MEDS ORDERED: FAMOTIDINE 20 MG TAB PO SCH (21:00)
[2019-08-04] MEDS ORDERED: INSULIN DETEMIR (LEVEMIR) 100 UNIT/ML SYR SQ SCH (21:00)
[2019-08-04] MEDS ORDERED: FENOFIBRATE 160 MG TAB PO SCH (21:00)
[2019-08-04] MEDS: METOPROLOL TARTRATE 12.5 MG TAB PO SCH (21:36)
[2019-08-04 23:18] VITALS: RESP 18
--- NOTE | 2019-08-05 02:04 | CONS ---
CONSULTATION DATE OF SERVICE: 08/04/2019 REASON FOR CONSULTATION: Possible right lower extremity cellulitis. HISTORY OF PRESENT ILLNESS: The patient is a 58-year-old female presenting to the ER with the chief complaint of right leg discomfort. The patient states this has been going on for about 2 days. The patient denies having any history of any trauma. She describes the pain to be more of a spasm like and that comes and goes with no significant initiating effect. Patient intensity can be as high as 10 out of 10 and no radiation. Currently denies having any open wound or any drainage. The patient did mention that she has been using her right leg more because of some problem with her left leg and may have with these symptoms the patient was evaluated by the ER physician. The patient on arrival to the ER has been afebrile. Patient did have a normal white count 7.9. CK was 27. The patient did have x-rays of the right tibia and fibula which showed some demineralization. No acute or subacute fracture seen. Venous Doppler was negative for DVT. The patient also had right lower extremity CT and was negative for any abscess and no suspicious foci of air identified. The patient was started on cefazolin 1 gram q.6 hours. Infectious Disease was consulted for further recommendation on antibiotic therapy. The patient did mention when she came to the hospital there was some redness to the right posterior calf area. There seems to be some improvement with IV antibiotics. REVIEW OF SYSTEMS: Positive points have been mentioned in HPI. Rest of systems are negative. PAST MEDICAL HISTORY: Significant for CVA, TIA, diabetes mellitus, gastroesophageal reflux disease, hypertension, hyperlipidemia, UTI, pressure ulcer, hiatal hernia. PAST SURGICAL HISTORY: Back surgery, cholecystectomy, PTCA with stent, lumbar fusion, spinal cord stimulator. SOCIAL HISTORY: Current everyday smoker. No drinking or drug use. FAMILY HISTORY: Father with history of cancer, liver disease, cirrhosis of the liver. Mother history of coronary artery disease. ALLERGIES: Allergies to GLUTEN. MEDICATIONS: Medications include the patient is currently on [place], aspirin, Lipitor, cefazolin, Valium, Cymbalta, Neurontin, Dilaudid, NovoLog, Levemir, Imdur, Toradol, Zestril, Lopressor, Narcan, Nitrostat, Protonix, Prandin, Requip and IV fluids. PHYSICAL EXAMINATION: Blood pressure is 112/66, pulse of 81, temperature 98.5. She is 96% on room air. General description is an elderly female lying in bed in no distress. RESPIRATORY SYSTEM: Unlabored breathing, clear to auscultation anteriorly. HEART: S1, S2. Regular rate and rhythm. ABDOMEN: Soft, no tenderness. Right posterior leg seemed to have some discomfort and tenderness. However, no significant redness or warmth was noticed. No fluctuation, induration or any drainage. NEUROLOGICAL: Patient is awake, alert, oriented x3. Mood and affect normal. LABS: Hemoglobin is 15.9, white count 7.9 with no left shift. BUN of 12, creatinine 0.39. CK is 27. Glucose was 599. CT, ultrasound and x-ray report as mentioned above. DIAGNOSTIC IMPRESSION AND PLAN: Patient presented to hospital with right leg pain, swelling and apparently some redness, which was not appreciated on my evaluation. However, the patient mentioned some improvement with cellulitis with IV antibiotic possible cellulitis, but not likely. Some of her pain could be related to her radiculopathy that she did have a history of chronic back pain and did have multiple surgeries on the back. PLAN: 1. May continue cefazolin 1 gram q.6 hours. However, if the patient continues to improve to finish therapy with oral antibiotics in the form of Keflex. 2. Will follow the clinical condition and further adjust medication if needed. Thank you for this consultation. Will follow this patient along with you. SACHIL / IJN: [id number] /
[2019-08-05 03:01] VITALS: BP 148/78; PULSE 67; TEMP 97.9
[2019-08-05] MEDS: SODIUM CHLORIDE 0.9% 1,000 ML IV SCH (05:52)
[2019-08-05 06:52] LABS: Glucose,Whole Blood 253 mg/dL (75-99)
[2019-08-05 08:01] LABS: African American GFR (CKD) >90 (>60 ml/min/1.73 sqM); Anion Gap 6 mmol/L; Blood Urea Nitrogen 13 mg/dL (7-17); C Reactive Protein 16.5 mg/L (<10.0); Calcium 8.4 mg/dL (8.4-10.2); Carbon Dioxide 21 mmol/L (22-30); Chloride 108 mmol/L (98-107); Glucose 272 mg/dL (74-99); Non-African American GFR(CKD) >90 (>60 ml/min/1.73 sqM); Potassium 4.1 mmol/L (3.5-5.1); Sodium 135 mmol/L (137-145)
[2019-08-05 08:14] LABS: Glucose,Whole Blood 300 mg/dL (75-99)
[2019-08-05 08:16] LABS: Basophils % (A) 0 %; Eosinophils # (A) 0.3 k/uL (0-0.7); Eosinophils % (A) 4 %; HCT 41.7 % (34.0-46.0); HGB 14.4 gm/dL (11.4-16.0); Lymphocytes # (A) 1.8 k/uL (1.0-4.8); Lymphocytes % (A) 25 %; MCH 30.2 pg (25.0-35.0); MCHC 34.6 g/dL (31.0-37.0); MCV 87.4 fL (80.0-100.0); Mean Platelet Volume 7.6; Monocytes # (A) 0.3 k/uL (0-1.0); Monocytes % (A) 4 %; Neutrophils # (A) 4.7 k/uL (1.3-7.7); Neutrophils % (A) 65 %; Platelet Count 132 k/uL (150-450); RBC 4.77 m/uL (3.80-5.40); RDW 13.3 % (11.5-15.5); WBC 7.1 k/uL (3.8-10.6)
[2019-08-05] MEDS: METOPROLOL TARTRATE 12.5 MG TAB PO SCH (08:30)
[2019-08-05] MEDS: INSULIN ASPART (NovoLOG) 100 UNIT/ML VIAL SQ SCH ×4 (08:31→12:29)
[2019-08-05] MEDS: REPAGLINIDE 1 MG TAB PO SCH ×2 (08:34→13:13)
[2019-08-05] MEDS ORDERED: ASPIRIN 81 MG PO SCH (09:00)
[2019-08-05] MEDS ORDERED: LISINOPRIL 20 MG TAB PO SCH (09:00)
[2019-08-05] MEDS ORDERED: PRASUGREL 10 MG TAB PO SCH (09:00)
[2019-08-05] MEDS ORDERED: PANTOPRAZOLE 40 MG TABLET PO SCH (09:00)
[2019-08-05] MEDS ORDERED: GABAPENTIN 300 MG CAP PO SCH (09:00)
[2019-08-05] MEDS ORDERED: ISOSORBIDE MONONITRATE ER 60 MG TAB.ER.24H PO SCH (09:00)
[2019-08-05 11:02] VITALS: BMI 21.2
--- NOTE | 2019-08-05 11:41 | P.GSCN ---
History of Present Illness Consult date: 08/05/19 Reason for Consult: Right leg pain, right peripheral arterial disease History of present illness: The patient is a 58-year-old pleasant female who was admitted for right lower extremity pain. The patient states that she has had increasing right lower extremity pain for the last several weeks, is extremely sensitive to touch. There is some mild erythema along the lateral side. Patient has a history of diabetes mellitus diabetic neuropathy, TIA, bilateral peripheral arterial disease status post right iliac arterial stent and was placed last year with Dr. Lock. Patient has also had bilateral angiograms last year with Dr. Lock as well. The patient denies any fever or chills, any shortness breath or chest pain, however does state she has noticed increasing redness to the right lower extremity and it is very painful to touch. she rates pain 10/10. Patient denies any trauma to the right lower extremity. X-ray of the right tibia-fibula shows demineralization that is present. There is no acute or subacute displaced fracture seen in the right tibia or fibula. Mild to moderate tricompartmental joint space loss and mild spurring in the right knee. Ankle mortise symmetry is preserved. Some superficial proximal posterior vascular calcification is present. Right lower extremity venous Doppler negative for DVT. CT of the rig ht lower extremity with contrast shows no acute or subacute displaced fracture in the right tibia or fibula. Muscle bulk is fairly well-maintained in the right leg. No suspicious foci of air are identified. No well-formed fluid collection or abscess. Mild subcutaneous edema near the level of ankle joint. Mild tricompartment degenerative changes in the level of right knee. No suspicious bony destruction distal Achilles tendon is intact there is a small inferior calcaneal for incidentally noted. No suspicious enhancement is seen. Good flow in the popliteal artery with poor or absent flow within the posterior tibial artery shortly after its origin. Some distal reconstitution is present. Posterior tibial trunk shows good flow with three-vessel flow midline and could two-vessel flow distally. Arterial ultrasound of the bilateral lower extremities shows decreased waveforms on the right lower extremity. Patient was unable to tolerate blood sugar cuff to the right lower extremity. TBI right lower extremity 0.24 lower extremity 0.60. Review of Systems Review of systems was completed and all pertinent positives and negatives as stated in the HPI. Past Medical History Past Medical History: CVA/TIA, Diabetes Mellitus, GERD/Reflux, Hyperlipidemia, Hypertension, Vascular Disorder Additional Past Medical History / Comment(s): Pt recently admitted to [facility] on 07/01/19 with fall with L greated trochanter avultion fracture. Other hx: IDDM, neuropathy bilateral feet, pancreatitis X2 (Last was 05/02), CVA with R sided weakness, L hip fracture, PAD, celiac disease, chronic low back pain, UTIs, duodenitis/duodenal ulcer, hiatal hernia., History of Any Multi-Drug Resistant Organisms: None Reported Past Surgical History: Back Surgery, Cholecystectomy, Heart Catheterization With Stent, Orthopedic Surgery Additional Past Surgical History / Comment(s): Lumbar fusion, spinal cord stimulator, L knee arthroscopy, EGD, PATRICIA, cardiac cath with 3 stents in February 2017, Aortoram 09/18/18, 09-25-18 stent to the L illeac artery. Past Anesthesia/Blood Transfusion Reactions: No Reported Reaction Additional Past Anesthesia/Blood Transfusion Reaction / Comm: Never had blood transfusion Date of Last Stent Placement:: 02/2017 Smoking Status: Current every day smoker - Past Family History Father Family Medical History: Cancer, Liver Disease Additional Family Medical History / Comment(s): Idiopathic cirrhosis of liver, Liver CA Mother Family Medical History: Coronary Artery Disease (CAD) Additional Family Medical History / Comment(s): Multiple stents. Mother at the age of 77 or 78yrs from [place]. Medications and Allergies Home Medications Medication Instructions Recorded Confirmed Type Gabapentin [Neurontin] 300 mg PO DAILY 03/18/14 08/04/19 History Atorvastatin [Lipitor] 80 mg PO HS 06/26/16 08/04/19 History DULoxetine HCL [Cymbalta] 60 mg PO HS 06/26/16 08/04/19 History Nitroglycerin Sl Tabs [Nitrostat] 0.4 mg SUBLINGUAL Q5M PRN #50 tab 07/02/16 08/04/19 Rx Metoprolol Tartrate 12.5 mg PO BID 09/01/16 08/04/19 History Gabapentin [Neurontin] 900 mg PO HS 05/15/17 08/04/19 History Isosorbide Mononitrate ER [Imdur] 60 mg PO DAILY 09/01/17 08/04/19 History Aspirin 81 mg PO DAILY 10/08/17 08/04/19 History Prasugrel [Effient] 10 mg PO DAILY 10/08/17 08/04/19 History Repaglinide [Prandin] 1 mg PO AC-TID 09/17/18 08/04/19 History Lisinopril 40 mg PO DAILY 07/01/19 08/04/19 History Omeprazole 20 mg PO DAILY PRN 07/01/19 08/04/19 History INSULIN ASPART (NovoLOG) [NovoLOG See Protocol SQ ACHS 08/04/19 08/04/19 History (formulary)] Pantoprazole Sodium [Protonix] 40 mg PO BID 08/04/19 08/04/19 History Cephalexin [Keflex] 500 mg PO Q8HR 10 Days #30 cap 08/05/19 Rx HYDROcodone/APAP 5-325MG [[place] 1 tab PO Q8HR PRN #12 tab 08/05/19 Rx 5-325] INSULIN ASPART (NovoLOG) [NovoLOG 10 unit SQ AC-TID vial 08/05/19 Rx (formulary)] Insulin Glargine [Lantus] 50 unit SQ HS #0 08/05/19 08/04/19 Rx rOPINIRole HCL [Requip] 0.25 mg PO HS #30 tab 08/05/19 Rx Allergies Allergy/AdvReac Type Severity Reaction Status Date / Time gluten AdvReac Nausea & Verified 08/04/19 09:55 Vomiting & Diarrhea Surgical - Exam Vital Signs Temp Pulse Resp BP Pulse Ox 98.4 F 89 18 135/96 98 08/04/19 09:09 08/04/19 09:09 08/04/19 09:09 08/04/19 09:09 08/04/19 09:09 General appearance: The patient is alert, oriented, in no acute distress. HET: Head is normocephalic and atraumatic. Pupils are equal and reactive. Neck: Supple without lymphadenopathy. Trachea midline. Heart: S1 S2. Regular rate and rhythm. Lungs: No crackles or wheezes are heard. Abdomen: Soft, nontender, nondistended with bowel sounds. Extremities: Right lower extremity medial aspect with redness and warmth suggestive of cellulitis, tenderness to palpation, with mild edema. Nonpalpable PT and DP pulses. Patient has bilateral palpable femoral and popliteal pulses. Left lower extremity with palpable TP and DP pulses. Patient able to freely move bilateral lower extremities and toes. Sensory motor intact Neurological: No focal deficits. Strength and sensation are grossly intact. Results Arterial Doppler studies reviewed CT of right lower extremity reviewed Venous duplex of the right lower extremity reviewed - Labs 08/05/19 07:18 08/05/19 07:18 Abnormal Lab Results - Last 24 Hours (Table) 08/04/19 08/04/19 08/04/19 Range/Units 09:44 11:18 13:03 Plt Count (150-450) k/uL Sodium 132 L (137-145) mmol/L Chloride (98-107) mmol/L Carbon Dioxide (22-30) mmol/L Creatinine 0.39 L (0.52-1.04) mg/dL Glucose 599 H* (74-99) mg/dL POC Glucose (mg/dL) 439 H 280 H (75-99) mg/dL Creatine Kinase (30-135) U/L C-Reactive Protein (<10.0) mg/L 08/04/19 08/04/19 08/04/19 Range/Units 15:11 16:40 20:37 Plt Count (150-450) k/uL Sodium (137-145) mmol/L Chloride (98-107) mmol/L Carbon Dioxide (22-30) mmol/L Creatinine (0.52-1.04) mg/dL Glucose (74-99) mg/dL POC Glucose (mg/dL) 362 H 283 H (75-99) mg/dL Creatine Kinase 27 L (30-135) U/L C-Reactive Protein (<10.0) mg/L 08/05/19 08/05/19 08/05/19 Range/Units 06:50 07:18 07:18 Plt Count 132 L (150-450) k/uL Sodium 135 L (137-145) mmol/L Chloride 108 H (98-107) mmol/L Carbon Dioxide 21 L (22-30) mmol/L Creatinine 0.34 L (0.52-1.04) mg/dL Glucose 272 H (74-99) mg/dL POC Glucose (mg/dL) 253 H (75-99) mg/dL Creatine Kinase (30-135) U/L C-Reactive Protein 16.5 H (<10.0) mg/L 08/05/19 Range/Units 08:13 Plt Count (150-450) k/uL Sodium (137-145) mmol/L Chloride (98-107) mmol/L Carbon Dioxide (22-30) mmol/L Creatinine (0.52-1.04) mg/dL Glucose (74-99) mg/dL POC Glucose (mg/dL) 300 H (75-99) mg/dL Creatine Kinase (30-135) U/L C-Reactive Protein (<10.0) mg/L Diabetes panel 08/04/19 08/05/19 Range/Units 09:44 07:18 Sodium 132 L 135 L (137-145) mmol/L Potassium 4.4 4.1 (3.5-5.1) mmol/L Chloride 98 108 H (98-107) mmol/L Carbon Dioxide 22 21 L (22-30) mmol/L BUN 12 13 (7-17) mg/dL Creatinine 0.39 L 0.34 L (0.52-1.04) mg/dL Glucose 599 H* 272 H (74-99) mg/dL Calcium 9.2 8.4 (8.4-10.2) mg/dL AST 15 (14-36) U/L ALT 16 (4-34) U/L Alkaline Phosphatase 87 (38-126) U/L Total Protein 7.0 (6.3-8.2) g/dL Albumin 4.2 (3.5-5.0) g/dL Calcium panel 08/04/19 08/05/19 Range/Units 09:44 07:18 Calcium 9.2 8.4 (8.4-10.2) mg/dL Albumin 4.2 (3.5-5.0) g/dL Pituitary panel 08/04/19 08/05/19 Range/Units 09:44 07:18 Sodium 132 L 135 L (137-145) mmol/L Potassium 4.4 4.1 (3.5-5.1) mmol/L Chloride 98 108 H (98-107) mmol/L Carbon Dioxide 22 21 L (22-30) mmol/L BUN 12 13 (7-17) mg/dL Creatinine 0.39 L 0.34 L (0.52-1.04) mg/dL Glucose 599 H* 272 H (74-99) mg/dL Calcium 9.2 8.4 (8.4-10.2) mg/dL Adrenal panel 08/04/19 08/05/19 Range/Units 09:44 07:18 Sodium 132 L 135 L (137-145) mmol/L Potassium 4.4 4.1 (3.5-5.1) mmol/L Chloride 98 108 H (98-107) mmol/L Carbon Dioxide 22 21 L (22-30) mmol/L BUN 12 13 (7-17) mg/dL Creatinine 0.39 L 0.34 L (0.52-1.04) mg/dL Glucose 599 H* 272 H (74-99) mg/dL Calcium 9.2 8.4 (8.4-10.2) mg/dL Total Bilirubin 0.5 (0.2-1.3) mg/dL AST 15 (14-36) U/L ALT 16 (4-34) U/L Alkaline Phosphatase 87 (38-126) U/L Total Protein 7.0 (6.3-8.2) g/dL Albumin 4.2 (3.5-5.0) g/dL Assessment and Plan Assessment: #1 right lower extremity pain #2 peripheral arterial disease, right greater than left #3 cellulitis of the right lower extremity #4 diabetes mellitus with diabetic neuropathy #5 urinary artery disease with 3 stents #6 hypertension #7 hyperlipidemia Plan: Dr. Guzmán reviewed all reports. Continue with recommendations per infectious disease for cellulitis treatment. Patient to follow up outpatient for right lower extremity below the knee peripheral arterial disease. Thank you for this consultation and allowing us to take part in the plan of care the patient during her hospital stay. The above dictated assessment and findings were discussed with Dr. Guzmán. The impression and plan of care have been directed as dictated.
[2019-08-05 11:50] LABS: Glucose,Whole Blood 186 mg/dL (75-99)
--- NOTE | 2019-08-05 12:52 | P.CONS ---
History of Present Illness - Reason for Consult Consult date: 08/05/19 Wound care - History of Present Illness This is a 58-year-old patient being seen on 4 S. for a ulceration to the left great toe dorsal aspect. Patient states that the ulceration has been there for 2 years and will heal and then re-open with bloody drainage. Patient is a diabetic. She does see a primary care physician who has completed a full assessment however did not feel the ulceration needed any further treatment. Patient is medical history significant for CVA, diabetes mellitus, acid reflux, hyperlipidemia, hypertension, vascular disease, diabetic neuropathy Review of Systems Review Of Systems: Constitutional: No fever, no chills, no night sweats. No weight change. No wea kness, fatigue or lethargy. No daytime sleepiness. Integumentary:reports wounds, no lesions. No rash or pruritus. No unusual bruising. No change in hair or nails. Past Medical History Past Medical History: CVA/TIA, Diabetes Mellitus, GERD/Reflux, Hyperlipidemia, Hypertension, Vascular Disorder Additional Past Medical History / Comment(s): Pt recently admitted to [facility] on 07/01/19 with fall with L greated trochanter avultion fracture. Other hx: IDDM, neuropathy bilateral feet, pancreatitis X2 (Last was 05/02), CVA with R sided weakness, L hip fracture, PAD, celiac disease, chronic low back pain, UTIs, duodenitis/duodenal ulcer, hiatal hernia., History of Any Multi-Drug Resistant Organisms: None Reported Past Surgical History: Back Surgery, Cholecystectomy, Heart Catheterization With Stent, Orthopedic Surgery Additional Past Surgical History / Comment(s): Lumbar fusion, spinal cord stimulator, L knee arthroscopy, EGD, PATRICIA, cardiac cath with 3 stents in February 2017, Aortoram 09/18/18, 09-25-18 stent to the L illeac artery. Past Anesthesia/Blood Transfusion Reactions: No Reported Reaction Additional Past Anesthesia/Blood Transfusion Reaction / Comm: Never had blood transfusion Date of Last Stent Placement:: 02/2017 Smoking Status: Current every day smoker - Past Family History Father Family Medical History: Cancer, Liver Disease Additional Family Medical History / Comment(s): Idiopathic cirrhosis of liver, Liver CA Mother Family Medical History: Coronary Artery Disease (CAD) Additional Family Medical History / Comment(s): Multiple stents. Mother at the age of 77 or 78yrs from [place]. Medications and Allergies Home Medications Medication Instructions Recorded Confirmed Type Gabapentin [Neurontin] 300 mg PO DAILY 03/18/14 08/04/19 History Atorvastatin [Lipitor] 80 mg PO HS 06/26/16 08/04/19 History DULoxetine HCL [Cymbalta] 60 mg PO HS 06/26/16 08/04/19 History Nitroglycerin Sl Tabs [Nitrostat] 0.4 mg SUBLINGUAL Q5M PRN #50 tab 07/02/16 08/04/19 Rx Metoprolol Tartrate 12.5 mg PO BID 09/01/16 08/04/19 History Gabapentin [Neurontin] 900 mg PO HS 05/15/17 08/04/19 History Isosorbide Mononitrate ER [Imdur] 60 mg PO DAILY 09/01/17 08/04/19 History Aspirin 81 mg PO DAILY 10/08/17 08/04/19 History Prasugrel [Effient] 10 mg PO DAILY 10/08/17 08/04/19 History Repaglinide [Prandin] 1 mg PO AC-TID 09/17/18 08/04/19 History Lisinopril 40 mg PO DAILY 07/01/19 08/04/19 History Omeprazole 20 mg PO DAILY PRN 07/01/19 08/04/19 History INSULIN ASPART (NovoLOG) [NovoLOG See Protocol SQ ACHS 08/04/19 08/04/19 History (formulary)] Pantoprazole Sodium [Protonix] 40 mg PO BID 08/04/19 08/04/19 History Cephalexin [Keflex] 500 mg PO Q8HR 10 Days #30 cap 08/05/19 Rx HYDROcodone/APAP 5-325MG [[place] 1 tab PO Q8HR PRN #12 tab 08/05/19 Rx 5-325] INSULIN ASPART (NovoLOG) [NovoLOG 10 unit SQ AC-TID vial 08/05/19 Rx (formulary)] Insulin Glargine [Lantus] 50 unit SQ HS #0 08/05/19 08/04/19 Rx rOPINIRole HCL [Requip] 0.25 mg PO HS #30 tab 08/05/19 Rx Allergies Allergy/AdvReac Type Severity Reaction Status Date / Time gluten AdvReac Nausea & Verified 08/04/19 09:55 Vomiting & Diarrhea Physical Exam Vitals: Vital Signs Temp Pulse Resp BP Pulse Ox 08/05/19 08:30 18 08/05/19 04:00 67 18 08/05/19 02:07 97.9 F 67 18 148/78 94 L 08/04/19 19:40 98.1 F 74 18 135/73 96 08/04/19 15:00 98.5 F 81 16 112/66 96 08/04/19 14:28 80 18 Intake and Output 08/04/19 08/05/19 08/05/19 22:59 06:59 14:59 Intake Total 250 250 Balance 250 250 Intake: Oral 250 250 Other: Voiding Method Toilet Toilet # Voids 1 2 Weight 63.503 kg Physical exam: General Appearance: Alert, cooperative, no distress, appears stated age. Skin: No open ulcerations noted, patient has a large callus to the left great toe dorsal aspect all other Skin color, texture, tugor normal, no rashes or lesions. Neurologic: Alert oriented x3 Results CBC & Chem 7: 08/05/19 07:18 08/05/19 07:18 Labs: Abnormal Lab Results - Last 24 Hours (Table) 08/04/19 08/04/19 08/04/19 Range/Units 13:03 15:11 16:40 Plt Count (150-450) k/uL Sodium (137-145) mmol/L Chloride (98-107) mmol/L Carbon Dioxide (22-30) mmol/L Creatinine (0.52-1.04) mg/dL Glucose (74-99) mg/dL POC Glucose (mg/dL) 280 H 362 H (75-99) mg/dL Creatine Kinase 27 L (30-135) U/L C-Reactive Protein (<10.0) mg/L 08/04/19 08/05/19 08/05/19 Range/Units 20:37 06:50 07:18 Plt Count 132 L (150-450) k/uL Sodium (137-145) mmol/L Chloride (98-107) mmol/L Carbon Dioxide (22-30) mmol/L Creatinine (0.52-1.04) mg/dL Glucose (74-99) mg/dL POC Glucose (mg/dL) 283 H 253 H (75-99) mg/dL Creatine Kinase (30-135) U/L C-Reactive Protein (<10.0) mg/L 08/05/19 08/05/19 08/05/19 Range/Units 07:18 08:13 11:48 Plt Count (150-450) k/uL Sodium 135 L (137-145) mmol/L Chloride 108 H (98-107) mmol/L Carbon Dioxide 21 L (22-30) mmol/L Creatinine 0.34 L (0.52-1.04) mg/dL Glucose 272 H (74-99) mg/dL POC Glucose (mg/dL) 300 H 186 H (75-99) mg/dL Creatine Kinase (30-135) U/L C-Reactive Protein 16.5 H (<10.0) mg/L Microbiology - Last 24 Hours (Table) 08/04/19 09:44 Blood Culture - Preliminary Blood No Growth after 24 hours Assessment and Plan (1) Diabetes mellitus with neuropathy Current Visit: Yes Status: Acute Code(s): E11.40 - TYPE 2 DIABETES MELLITUS WITH DIABETIC NEUROPATHY, UNSP SNOMED Code(s): 36162119 (2) Callus of foot Current Visit: Yes Status: Acute Code(s): L84 - CORNS AND CALLOSITIES SNOMED Code(s): 717459044 Plan: Patient has a large callus to the left great toe. There is no open ulcerations at this time. Patient would benefit from podiatry an outpatient setting. Discussed this with patient who verbalized understanding. Thank you kindly for the consultation any questions please contact the wound care center DNP note has been reviewed and discussed with Dr. Munoz and the impression and plan of care has been directed as dictated.
[2019-08-05] MEDS: HYDROcodone/APAP 5-325MG 1 EACH TAB PO PRN (13:46)
--- NOTE | 2019-08-05 15:53 | P.DS ---
Providers Date of admission: 08/04/19 11:49 Expected date of discharge: 08/05/19 Attending physician: Oc Esparza Consults: 08/04/19 14:11 Consult Physician Routine Consulting Provider: Jeanie Patricio Consult Reason/Comments: right lower leg cellulitis also left chronic foot wound Do you want consulting provider notified?: Yes 08/04/19 18:08 Consult Physician Urgent Consulting Provider: Charito Ragland Consult Reason/Comments: Right lower leg pain. DVT negative. ?Vascular compromise Do you want consulting provider notified?: Yes Primary care physician: Fabiola Land [facility] Hospital Course: Final diagnosis -Right leg pain: Patient is presently being treated for possible cellulitis or possible myositis -Small pressure ulcer in the plantar surface of the left great toe -Severe hyperglycemia due to noncompliance -Hyponatremia: Sodium hyponatremia from hyperglycemia -History of celiac disease: Patient need to be on gluten-free diet -History of gastroesophageal reflux disease -Hyperlipidemia -Hypertension -cerebrovascular accident in the past -Peripheral vascular disease -Nicotine abuse: Counseling was provided -DVT prophylaxis Discharge disposition Patient is being discharged in a stable condition with guarded prognosis to home. Patient will follow-up with Dr. Land in the outpatient setting upon discharge. Patient will also follow-up with Dr. Lock cardiology in the outpatient setting. Patient will continue on a short course of oral antibiotics in the form of Keflex for the next 10 days. Total time taken is 35 minutes. History of present illness This is a 58-year-old female who was recently admitted right leg possible cellulitis and pain and was being closely monitored. Patient is seen and evaluated by infectious disease and showed improvement on IV cefazolin and will continue with oral Keflex in the outpatient setting for 10 days. Patient also seen and evaluated by vascular surgery and will follow-up with Dr. Lock who had previously done surgery on her. During hospitalization patient had ultrasound of the right lower extremity which did not show any DVTs. Patient also had a CT of the right lower extremity showing no acute acute or subacute displaced fracture in the right tibia or fibula, no well-formed fluid collection or abscess, some mild subcutaneous edema near the level of the ankle joint with mild tricompartment degenerative changes in the level of her right knee with no suspicious bony destruction along with good flow in the popliteal artery with a small inferior calcaneal spur with no suspicious enhancement seen. She continues to have pain and was told to follow-up with primary care provider and possible resin painter to discuss alternatives to her pain medications. Currently no reports of chest pain, shortness of breath, or palpitations. Patient is afebrile. No reports of nausea or vomiting and patient is tolerating diet. Patient will be discharged today. On exam vital signs are stable. Temp is 97.9F, pulse is 67, respirations are 18, blood pressure is 148/78, oxygen saturation is 94% on room air. Cardio S1, S2 are present. Respiratory system shows diminished breath sounds at the bases with no wheezing or rhonchi noted. Abdomen is soft and nontender. Nervous system shows no focal deficits. Please refer to medication reconciliation sheet for a list of medications. disposition Patient Condition at Discharge: Stable Plan - Discharge Summary Discharge Rx Participant: No New Discharge Prescriptions: New Cephalexin [Keflex] 500 mg PO Q8HR 10 Days #30 cap INSULIN ASPART (NovoLOG) [NovoLOG (formulary)] 10 unit SQ AC-TID vial rOPINIRole HCL [Requip] 0.25 mg PO HS #30 tab Continue Gabapentin [Neurontin] 300 mg PO DAILY DULoxetine HCL [Cymbalta] 60 mg PO HS Atorvastatin [Lipitor] 80 mg PO HS Nitroglycerin Sl Tabs [Nitrostat] 0.4 mg SUBLINGUAL Q5M PRN #50 tab PRN Reason: Chest Pain Metoprolol Tartrate 12.5 mg PO BID Gabapentin [Neurontin] 900 mg PO HS Isosorbide Mononitrate ER [Imdur] 60 mg PO DAILY Prasugrel [Effient] 10 mg PO DAILY Aspirin 81 mg PO DAILY Repaglinide [Prandin] 1 mg PO AC-TID Lisinopril 40 mg PO DAILY Omeprazole 20 mg PO DAILY PRN PRN Reason: gerd Pantoprazole Sodium [Protonix] 40 mg PO BID INSULIN ASPART (NovoLOG) [NovoLOG (formulary)] See Protocol SQ ACHS HYDROcodone/APAP 5-325MG [[place] 5-325] 1 tab PO Q8HR PRN #12 tab PRN Reason: Pain Changed Insulin Glargine [Lantus] 50 unit SQ HS #0 Discontinued Fenofibrate 160 mg PO HS metFORMIN HCL [Glucophage] 1,000 mg PO BID Discharge Medication List Gabapentin [Neurontin] 300 mg PO DAILY 03/18/14 [History] Atorvastatin [Lipitor] 80 mg PO HS 06/26/16 [History] DULoxetine HCL [Cymbalta] 60 mg PO HS 06/26/16 [History] Nitroglycerin Sl Tabs [Nitrostat] 0.4 mg SUBLINGUAL Q5M PRN #50 tab 07/02/16 [Rx] Metoprolol Tartrate 12.5 mg PO BID 09/01/16 [History] Gabapentin [Neurontin] 900 mg PO HS 05/15/17 [History] Isosorbide Mononitrate ER [Imdur] 60 mg PO DAILY 09/01/17 [History] Aspirin 81 mg PO DAILY 10/08/17 [History] Prasugrel [Effient] 10 mg PO DAILY 10/08/17 [History] Repaglinide [Prandin] 1 mg PO AC-TID 09/17/18 [History] Lisinopril 40 mg PO DAILY 07/01/19 [History] Omeprazole 20 mg PO DAILY PRN 07/01/19 [History] INSULIN ASPART (NovoLOG) [NovoLOG (formulary)] See Protocol SQ ACHS 08/04/19 [History] Pantoprazole Sodium [Protonix] 40 mg PO BID 08/04/19 [History] Cephalexin [Keflex] 500 mg PO Q8HR 10 Days #30 cap 08/05/19 [Rx] HYDROcodone/APAP 5-325MG [[place] 5-325] 1 tab PO Q8HR PRN #12 tab 08/05/19 [Rx] INSULIN ASPART (NovoLOG) [NovoLOG (formulary)] 10 unit SQ AC-TID vial 08/05/19 [Rx] Insulin Glargine [Lantus] 50 unit SQ HS #0 08/05/19 [Rx] rOPINIRole HCL [Requip] 0.25 mg PO HS #30 tab 08/05/19 [Rx] Follow up Appointment(s)/Referral(s): Vipul Lock MD [STAFF PHYSICIAN] - 1 Week (office not answering please call to make appointment) Fabiola Land MD [Primary Care Provider] - 08/06/19 12:40 pm (please wear a mask ans bring insurance cards) Patient Instructions/Handouts: Meal Planning with Diabetes Exchanges (GEN), Diabetic Hyperglycemia (ED), Leg Pain (ED) Activity/Diet/Wound Care/Special Instructions: Activity Limited until follow-up Continue with antibiotics until finished Continue to follow a diabetic diet Continue to elevate the lower extremity while at rest Follow-up with primary care provider upon discharge Continue monitoring blood sugars and keep a diary for primary care follow-up Lantus has been changed to 50 units at night and continue with NovoLog 10 units 3 times daily with meals and continue using sliding scale also Follow-up with Dr. Lock in the outpatient setting Follow-up with pain management in the outpatient setting Discharge Disposition: HOME SELF-CARE
--- NOTE | 2019-08-05 15:55 | PN ---
PROGRESS NOTE DATE OF SERVICE: 08/05/2019 REASON FOR FOLLOWUP: Right leg pain and a question of cellulitis. INTERVAL HISTORY: The patient is currently afebrile, patient is breathing comfortably. Still complaining of pain to the right leg but no worsening. No chest pain. No cough. No abdominal pain or diarrhea. PHYSICAL EXAMINATION: Blood pressure 142/78 with a temperature 97.9, he is 94% on room air. General description is a middle-aged female, lying in bed in no distress. RESPIRATORY SYSTEM: Unlabored breathing, clear to auscultation anteriorly. HEART S1, S2. Regular rate and rhythm. ABDOMEN: Soft, no tenderness. Right leg did have some swelling, no significant redness or drainage. LABS: White count 7.1, creatinine 0.34. DIAGNOSTIC IMPRESSION AND PLAN: Patient with right leg pain with concern for cellulitis. Clinically not behaving as such. Has been seen by Surgery and Vascular, possible vascular workup, make a short course of oral Keflex on discharge. Continue supportive care. MMODL / IJN: [id number] /
--- NOTE | 2019-08-06 12:54 | P.ARTDOP ---
Arterial Doppler LOWER EXTREMITY ARTERIAL DOPPLER: DATE OF SERVICE: 08/05/2019 Reason for study: Right calf pain. Doppler waveforms: Multiphasic throughout on the left.. Pulse volume recording: Multiphasic at the right femoral and monophasic below. Pressure gradients: Below mid thigh mainly on the right and none on the left. Ankle-brachial indices: Cannot measure the right. 0.99 on the left.. Toe brachial indices: 0.24 on the right and 0.6 on the left Impression: The left side is normal. The right side suggests moderate to severe right femoral popliteal occlusive process. Clinical correlation recommended.
== END 2019-08-05 14:54 | disposition home or self-care (01) ==
LOC: EC 09:05 → 4SSUR 11:49
PROVIDERS: ADMIT Internal Medicine; ATTEND Internal Medicine
DX: L03.115 Cellulitis of right lower limb (principal); E11.621 Type 2 diabetes mellitus with foot ulcer; L97.529 Non-pressure chronic ulcer of other part of left foot with unspecified severity; M79.604 Pain in right leg; E11.65 Type 2 diabetes mellitus with hyperglycemia; E87.1 Hypo-osmolality and hyponatremia; K90.0 Celiac disease; K21.9 Gastro-esophageal reflux disease without esophagitis; E78.5 Hyperlipidemia, unspecified; I10 Essential (primary) hypertension; I69.351 Hemiplegia and hemiparesis following cerebral infarction affecting right dominant side; M62.838 Other muscle spasm; I73.9 Peripheral vascular disease, unspecified; E11.42 Type 2 diabetes mellitus with diabetic polyneuropathy; G89.29 Other chronic pain; M54.5 Low back pain; K44.9 Diaphragmatic hernia without obstruction or gangrene; F41.9 Anxiety disorder, unspecified; M17.11 Unilateral primary osteoarthritis, right knee; M77.31 Calcaneal spur, right foot; L84 Corns and callosities; Z87.81 Personal history of (healed) traumatic fracture; F17.200 Nicotine dependence, unspecified, uncomplicated; Z91.19 Patient's noncompliance with other medical treatment and regimen; Z71.6 Tobacco abuse counseling; Z03.818 Encounter for observation for suspected exposure to other biological agents ruled out; Z79.899 Other long term (current) drug therapy; Z79.82 Long term (current) use of aspirin; Z79.4 Long term (current) use of insulin; Z79.891 Long term (current) use of opiate analgesic; Z86.79 Personal history of other diseases of the circulatory system; Z87.19 Personal history of other diseases of the digestive system; Z87.440 Personal history of urinary (tract) infections; Z87.11 Personal history of peptic ulcer disease; Z95.820 Peripheral vascular angioplasty status with implants and grafts; Z98.890 Other specified postprocedural states; Z90.49 Acquired absence of other specified parts of digestive tract; Z95.5 Presence of coronary angioplasty implant and graft; Z98.1 Arthrodesis status; Z96.82 Presence of neurostimulator; Z80.0 Family history of malignant neoplasm of digestive organs; Z83.79 Family history of other diseases of the digestive system; Z82.49 Family history of ischemic heart disease and other diseases of the circulatory system
CPT/HCPCS: 96376; 96361 ×3; 96365; 96366 ×2; 96375 ×2; 99285; 36415; 80053; 80048; 82550; 82553; 83735; 85025 ×2; 85610; 85730; 86140; 87040; 73590; 93971; 93923; 73701; G0378 ×2; U0003; J2360; J0690 ×2; J1885; J1170 ×2; Q9967

== ENCOUNTER 2020-03-18 09:32 | Inpatient (IN) | payer MEDICARE ==
[2020-03-18] MEDS ORDERED: SODIUM CHLORIDE 0.9% 1,000 ML IV STA (10:11)
[2020-03-18] MEDS ORDERED: cefTRIAXone IN SWFI 1,000 MG/10 ML SYRINGE IVP STA (10:11)
--- NOTE | 2020-03-18 10:13 | ED ---
General Adult HPI - General Chief complaint: Extremity Injury, Lower Stated complaint: Foot/knee pain Time Seen by Provider: 03/18/20 10:01 Source: patient, family Mode of arrival: wheelchair Limitations: no limitations - History of Present Illness Initial comments: 59-year-old female with a past medical history of CVA, IDDM, hyperlipidemia, hypertension, CAD with stent placement to the right groin area presents to the emergency room for a chief complaint of right foot pain. Patient reports the lateral aspect of her foot. Patient states that his been there for about a month and she thought it was healing so did not seek medical attention. However yesterday she started to have swelling of the foot and leg. States the pain shoots from her foot up. States her foot was not swollen and red before. Patient states about 6 months ago she had to be admitted to the hospital for cellulitis of the leg and it feels similar. Patient denies fevers at home.Patient has no other complaints at this time including shortness of breath, chest pain, abdominal pain, nausea or vomiting, headache, or visual changes. - Related Data Home Medications Medication Instructions Recorded Confirmed Gabapentin [Neurontin] 300 mg PO DAILY 03/18/14 08/04/19 Atorvastatin [Lipitor] 80 mg PO HS 06/26/16 08/04/19 DULoxetine HCL [Cymbalta] 60 mg PO HS 06/26/16 08/04/19 Metoprolol Tartrate 12.5 mg PO BID 09/01/16 08/04/19 Gabapentin [Neurontin] 900 mg PO HS 05/15/17 08/04/19 Isosorbide Mononitrate ER [Imdur] 60 mg PO DAILY 09/01/17 08/04/19 Aspirin 81 mg PO DAILY 10/08/17 08/04/19 Prasugrel [Effient] 10 mg PO DAILY 10/08/17 08/04/19 Repaglinide [Prandin] 1 mg PO AC-TID 09/17/18 08/04/19 Omeprazole 20 mg PO DAILY PRN 07/01/19 08/04/19 lisinopriL 40 mg PO DAILY 07/01/19 08/04/19 INSULIN ASPART (NovoLOG) [NovoLOG See Protocol SQ ACHS 08/04/19 08/04/19 (formulary)] Pantoprazole Sodium [Protonix] 40 mg PO BID 08/04/19 08/04/19 Previous Rx's Medication Instructions Recorded Nitroglycerin Sl Tabs [Nitrostat] 0.4 mg SUBLINGUAL Q5M PRN #50 tab 07/02/16 Cephalexin [Keflex] 500 mg PO Q8HR 10 Days #30 cap 08/05/19 HYDROcodone/APAP 5-325MG [[place] 1 tab PO Q8HR PRN #12 tab 08/05/19 5-325] INSULIN ASPART (NovoLOG) [NovoLOG 10 unit SQ AC-TID vial 08/05/19 (formulary)] Insulin Glargine [Lantus] 50 unit SQ HS #0 08/05/19 rOPINIRole HCL [Requip] 0.25 mg PO HS #30 tab 08/05/19 Allergies Allergy/AdvReac Type Severity Reaction Status Date / Time gluten AdvReac Nausea & Verified 03/18/20 09:37 Vomiting & Diarrhea Review of Systems ROS Statement: Those systems with pertinent positive or pertinent negative responses have been documented in the HPI. ROS Other: All systems not noted in ROS Statement are negative. Past Medical History Past Medical History: CVA/TIA, Diabetes Mellitus, GERD/Reflux, Hyperlipidemia, Hypertension, Vascular Disorder Additional Past Medical History / Comment(s): Pt recently admitted to [facility] on 07/01/19 with fall with L greated trochanter avultion fracture. Other hx: IDDM, neuropathy bilateral feet, pancreatitis X2 (Last was 05/02), CVA with R sided weakness, L hip fracture, PAD, celiac disease, chronic low back pain, UTIs, duodenitis/duodenal ulcer, hiatal hernia., History of Any Multi-Drug Resistant Organisms: None Reported Past Surgical History: Back Surgery, Cholecystectomy, Heart Catheterization With Stent, Orthopedic Surgery Additional Past Surgical History / Comment(s): Lumbar fusion, spinal cord stimulator, L knee arthroscopy, EGD, PATRICIA, cardiac cath with 3 stents in February 2017, Aortoram 09/18/18, 09-25-18 stent to the L illeac artery. Past Anesthesia/Blood Transfusion Reactions: No Reported Reaction Additional Past Anesthesia/Blood Transfusion Reaction / Comment(s): Never had blood transfusion Date of Last Stent Placement:: 02/2017 Past Psychological History: Anxiety Smoking Status: Current every day smoker Past Alcohol Use History: None Reported Past Drug Use History: None Reported - Past Family History Father Family Medical History: Cancer, Liver Disease Additional Family Medical History / Comment(s): Idiopathic cirrhosis of liver, Liver CA Mother Family Medical History: Coronary Artery Disease (CAD) Additional Family Medical History / Comment(s): Multiple stents. Mother at the age of 77 or 78yrs from [place]. General Exam - General Exam Comments Initial Comments: Right lower extremity: Patient has a wound noted to the lateral aspect of the fifth metatarsal head. She has edema of the foot with erythema and increased warmth. Slight erythema and edema extending to the distal leg. Patient does have tenderness in the calf. Sensation intact. Capillary refill less than 2 seconds. + DP Doppler signals Limitations: no limitations General appearance: alert Head exam: Present: atraumatic Eye exam: Present: normal appearance, PERRL, EOMI ENT exam: Present: normal exam, mucous membranes moist Neck exam: Present: normal inspection, full ROM Respiratory exam: Present: normal lung sounds bilaterally. Absent: respiratory distress, wheezes Cardiovascular Exam: Present: regular rate, normal rhythm, normal heart sounds GI/Abdominal exam: Present: soft, normal bowel sounds. Absent: distended, tenderness Neurological exam: Present: alert, oriented X3 Course Vital Signs 03/18/20 09:33 Temperature 98.3 F Pulse Rate 84 Respiratory 18 Rate Blood Pressure 150/88 O2 Sat by Pulse 99 Oximetry Medical Decision Making - Medical Decision Making Vitals are stable. Patient is afebrile here in the emergency room. Physical exam does reveal an erythematous right foot with streaking up to the mid tib-fib area. There is wound on the lateral aspect of the fifth metatarsal head. CBC does show leukocytosis with a left shift. CMP revealed evidence of hyperglycemia. Patient is an insulin-dependent diabetic. Lactic acid is noted to be 3.7. Patient was given fluids. She is not hypotensive. Patient was given Rocephin immediately although does not meet sepsis criteria. At this time given since the erythema of the right foot as well as history of IDDM and PAD patient will be admitted for IV antibiotics. Started on vancomycin and Zosyn. Case discussed with ER physician Dr. Adhikari [id number] case was discussed with Dr. Esparza, accepts admit - Lab Data Result diagrams: 03/18/20 10:25 03/18/20 10:25 Lab Results 03/18/20 03/18/20 03/18/20 Range/Units 10:25 10:25 10:25 WBC 11.3 H (3.8-10.6) k/uL RBC 5.11 (3.80-5.40) m/uL Hgb 15.5 (11.4-16.0) gm/dL Hct 43.4 (34.0-46.0) % MCV 85.0 (80.0-100.0) fL MCH 30.4 (25.0-35.0) pg MCHC 35.7 (31.0-37.0) g/dL RDW 13.7 (11.5-15.5) % Plt Count 179 (150-450) k/uL MPV 7.3 Neutrophils % 73 % Lymphocytes % 18 % Monocytes % 6 % Eosinophils % 2 % Basophils % 1 % Neutrophils # 8.3 H (1.3-7.7) k/uL Lymphocytes # 2.0 (1.0-4.8) k/uL Monocytes # 0.6 (0-1.0) k/uL Eosinophils # 0.2 (0-0.7) k/uL Basophils # 0.1 (0-0.2) k/uL Sodium 135 L (137-145) mmol/L Potassium 3.7 (3.5-5.1) mmol/L Chloride 96 L (98-107) mmol/L Carbon Dioxide 24 (22-30) mmol/L Anion Gap 15 mmol/L BUN 6 L (7-17) mg/dL Creatinine 0.40 L (0.52-1.04) mg/dL Est GFR (CKD-EPI)AfAm >90 (>60 ml/min/1.73 sqM) Est GFR (CKD-EPI)NonAf >90 (>60 ml/min/1.73 sqM) Glucose 300 H (74-99) mg/dL Plasma Lactic Acid Yousif 3.7 H* (0.7-2.0) mmol/L Calcium 9.4 (8.4-10.2) mg/dL Total Bilirubin 0.6 (0.2-1.3) mg/dL AST 17 (14-36) U/L ALT 14 (4-34) U/L Alkaline Phosphatase 61 (38-126) U/L Total Protein 7.2 (6.3-8.2) g/dL Albumin 4.3 (3.5-5.0) g/dL Disposition Clinical Impression: Cellulitis of right foot, Lactic acidosis, Leukocytosis, Chronic wound of extremity Disposition: ADMITTED IP TO THIS HOSP Is patient prescribed a controlled substance at d/c from ED?: No Referrals: Fabiola Land MD [Primary Care Provider] - 1-2 days Time of Disposition: 11:58
[2020-03-18] MEDS ORDERED: MORPHINE SULFATE 4 MG/ML SYRINGE IVP STA (10:35)
[2020-03-18 10:47] LABS: Basophils # (A) 0.1 k/uL (0-0.2); Basophils % (A) 1 %; Eosinophils # (A) 0.2 k/uL (0-0.7); Eosinophils % (A) 2 %; HCT 43.4 % (34.0-46.0); HGB 15.5 gm/dL (11.4-16.0); Lymphocytes % (A) 18 %; MCH 30.4 pg (25.0-35.0); MCHC 35.7 g/dL (31.0-37.0); Mean Platelet Volume 7.3; Monocytes # (A) 0.6 k/uL (0-1.0); Monocytes % (A) 6 %; Neutrophils # (A) 8.3 k/uL (1.3-7.7); Neutrophils % (A) 73 %; Platelet Count 179 k/uL (150-450); RBC 5.11 m/uL (3.80-5.40); RDW 13.7 % (11.5-15.5); WBC 11.3 k/uL (3.8-10.6)
[2020-03-18 11:04] LABS: ALT 14 U/L (4-34); AST 17 U/L (14-36); African American GFR (CKD) >90 (>60 ml/min/1.73 sqM); Albumin 4.3 g/dL (3.5-5.0); Alkaline Phosphatase 61 U/L (38-126); Anion Gap 15 mmol/L; Blood Urea Nitrogen 6 mg/dL (7-17); Calcium 9.4 mg/dL (8.4-10.2); Carbon Dioxide 24 mmol/L (22-30); Chloride 96 mmol/L (98-107); Glucose 300 mg/dL (74-99); Non-African American GFR(CKD) >90 (>60 ml/min/1.73 sqM); Potassium 3.7 mmol/L (3.5-5.1); Sodium 135 mmol/L (137-145); Total Bilirubin 0.6 mg/dL (0.2-1.3); Total Protein 7.2 g/dL (6.3-8.2)
[2020-03-18] MEDS ORDERED: ONDANSETRON 4 MG/2 ML VIAL IVP STA (11:09)
--- NOTE | 2020-03-18 11:26 | XR ---
EXAMINATION TYPE: XR foot complete RT DATE OF EXAM: 03/18/2020 COMPARISON: NONE HISTORY: 59-year-old female with pain, lateral wound/sore fifth digit TECHNIQUE: 3 views FINDINGS: Mild degenerative change first MTP joint. Small nonspecific 3 mm calcification along the lateral sterling in of the fifth metatarsal tuberosity. There is subtle soft tissue wound along the lateral aspect of the fifth MTP joint. There is underlying osteopenia throughout the toes but no discrete lytic destruc tion seen. Small plantar calcaneal spur. No acute fracture, subluxation, dislocation. IMPRESSION: 1. Soft tissue wound lateral aspect of the fifth MTP joint. There is underlying osteopenia throughout the foot. No discrete lytic destruction is identified to suggest osteomyelitis at this time. 2. Tiny 3 mm calcification at the base of the fifth metatarsal could reflect sequela of prior injury/ tendinopathy. If any localizing symptoms, calcific tendinitis of the peroneus brevis insertion is pos sible. 3. First MTP joint OA. Small plantar heel spur.
--- NOTE | 2020-03-18 11:31 | US ---
EXAMINATION TYPE: US venous doppler duplex LE RT DATE OF EXAM: 03/18/2020 11:06 AM COMPARISON: US CLINICAL HISTORY: swelling. Pt states right leg pain SIDE PERFORMED: Right TECHNIQUE: The lower extremity deep venous system is examined utilizing real time linear array sonog fortunato with graded compression, doppler sonography and color-flow sonography. VESSELS IMAGED: Common Femoral Vein Deep Femoral Vein Greater Saphenous Vein * Femoral Vein Popliteal Vein Small Saphenous Vein * Proximal Calf Veins (* superficial vessels) Right Leg: Negative for DVT IMPRESSION: 1. Right lower extremity ultrasound negative for deep venous thrombosis.
[2020-03-18] MEDS ORDERED: NALOXONE 0.4 MG/ML 1 ML VIAL IV PRN (11:59)
[2020-03-18] MEDS ORDERED: PIPERACILLIN-TAZOBACTAM 3.375 GM in SODIUM CHLORIDE 0.9% 100 ML IVPB STA (12:00)
[2020-03-18] MEDS ORDERED: HYDROmorphone 0.5 MG/0.5 ML SYRINGE IVP STA (12:00)
[2020-03-18] MEDS ORDERED: VANCOMYCIN IV PER PHARMACY 1 EACH MISC MISCELLANE PRN (12:01)
[2020-03-18] MEDS: SODIUM CHLORIDE 0.9% 1,000 ML IV SCH ×2 (12:17→19:12)
[2020-03-18 12:20] LABS: C Reactive Protein 24.1 mg/L (<10.0)
[2020-03-18] MEDS ORDERED: VANCOMYCIN 1,250 MG in SODIUM CHLORIDE 0.9% 250 ML IVPB ONE (12:45)
[2020-03-18] MEDS ORDERED: NITROGLYCERIN SL TABS 0.4 MG TAB SUBLINGUAL PRN (13:55)
[2020-03-18] MEDS ORDERED: PANTOPRAZOLE 40 MG TABLET PO PRN (13:55)
[2020-03-18 14:06] LABS: Glucose,Whole Blood 338 mg/dL (75-99)
[2020-03-18] MEDS: INSULIN ASPART (NovoLOG) 100 UNIT/ML VIAL SQ SCH ×4 (14:09→20:11)
--- NOTE | 2020-03-18 14:11 | P.HPIM ---
History of Present Illness Patient is a very pleasant 59-year-old female came in with complaints of severe pain swelling and redness and cellulitis of the right foot. Patient started having ulceration of the right foot on the lateral aspect in the metatarsal area of the right foot. Patient started having pain swelling and redness with yesterday. Patient denied any history of MRSA in the past. Patient the does have history of progressive disease had history of angiograms of the right lower limb in the past. Patient has some disease in superficial femoral artery patient is on dual antiplatelet therapy for that. Patient blood sugars are uncontrolled at home and patient says she is competent with diet and medications. Although patient admits to smoking still continues to smoke 1 pack per day trying to quit smoking. Patient denied any fever chills patient is found to have elevated lactic acid of around 2.4 with leukocytosis patient was started on Zosyn and vancomycin and subsequently admitted to the hospital. Review of Systems REVIEW OF SYSTEMS: CONSTITUTIONAL: No fever, no malaise, no fatigue. HEENT: No recent visual problems or hearing problems. Denied any sore throat. CARDIOVASCULAR: No chest pain, orthopnea, PND, no palpitations, no syncope. PULMONARY: No shortness of breath, no cough, no hemoptysis. GASTROINTESTINAL: No diarrhea, no nausea, no vomiting, no abdominal pain. NEUROLOGICAL: No headaches, no weakness, no numbness. HEMATOLOGICAL: Denies any bleeding or petechiae. GENITOURINARY: Denies any burning micturition, frequency, or urgency. MUSCULOSKELETAL/RHEUMATOLOGICAL: Denies any joint pain, swelling, or any muscle pain. ENDOCRINE: Denies any polyuria or polydipsia. The rest of the 14-point review of systems is negative. Past Medical History Past Medical History: CVA/TIA, Diabetes Mellitus, GERD/Reflux, Hyperlipidemia, Hypertension, Vascular Disorder Additional Past Medical History / Comment(s): IDDM, neuropathy bilateral feet, pancreatitis X2 (Last was 05/02), CVA with R sided weakness, L hip fracture, PAD, celiac disease, chronic low back pain, UTIs, duodenitis/duodenal ulcer, hiatal hernia., History of Any Multi-Drug Resistant Organisms: None Reported Past Surgical History: Back Surgery, Cholecystectomy, Heart Catheterization With Stent, Orthopedic Surgery Additional Past Surgical History / Comment(s): Lumbar fusion, spinal cord stimulator, L knee arthroscopy, EGD, PATRICIA, cardiac cath with 3 stents in February 2017, Aortoram 09/18/18, 09-25-18 stent to the L iliac artery. Past Anesthesia/Blood Transfusion Reactions: No Reported Reaction Additional Past Anesthesia/Blood Transfusion Reaction / Comment(s): Never had blood transfusion Date of Last Stent Placement:: 02/2017 Smoking Status: Current every day smoker - Past Family History Father Family Medical History: Cancer, Liver Disease Additional Family Medical History / Comment(s): Idiopathic cirrhosis of liver, Liver CA Mother Family Medical History: Coronary Artery Disease (CAD), Myocardial Infarction ([place]) Additional Family Medical History / Comment(s): Multiple stents. Mother at the age of 77 or 78yrs from [place]. Medications and Allergies Home Medications Medication Instructions Recorded Confirmed Type Gabapentin [Neurontin] 300 mg PO DAILY 03/18/14 03/18/20 History Atorvastatin [Lipitor] 80 mg PO HS 06/26/16 03/18/20 History DULoxetine HCL [Cymbalta] 60 mg PO HS 06/26/16 03/18/20 History Nitroglycerin Sl Tabs [Nitrostat] 0.4 mg SUBLINGUAL Q5M PRN #50 tab 07/02/16 03/18/20 Rx Gabapentin [Neurontin] 900 mg PO HS 05/15/17 03/18/20 History Aspirin 81 mg PO DAILY 10/08/17 03/18/20 History Prasugrel [Effient] 10 mg PO DAILY 10/08/17 03/18/20 History Omeprazole 20 mg PO DAILY PRN 07/01/19 03/18/20 History INSULIN ASPART (NovoLOG) [NovoLOG See Protocol SQ ACHS 08/04/19 03/18/20 History (formulary)] HYDROcodone/APAP 5-325MG [[place] 1 tab PO Q8HR PRN #12 tab 08/05/19 03/18/20 Rx 5-325] INSULIN ASPART (NovoLOG) [NovoLOG 10 unit SQ AC-TID vial 08/05/19 03/18/20 Rx (formulary)] Insulin Glargine [Lantus] 50 unit SQ HS #0 08/05/19 03/18/20 Rx Allergies Allergy/AdvReac Type Severity Reaction Status Date / Time gluten AdvReac Nausea & Verified 03/18/20 12:10 Vomiting & Diarrhea Physical Exam Vitals: Vital Signs Temp Pulse Resp BP Pulse Ox 03/18/20 12:10 84 16 111/76 96 03/18/20 09:33 98.3 F 84 18 150/88 99 Intake and Output 03/17/20 03/18/20 03/18/20 22:59 06:59 14:59 Other: Weight 64.41 kg PHYSICAL EXAMINATION: GENERAL: The patient is alert and oriented x3, not in any acute distress. Well developed, well nourished. HEENT: Pupils are round and equally reacting to light. EOMI. No scleral icterus. No conjunctival pallor. Normocephalic, atraumatic. No pharyngeal erythema. No thyromegaly. CARDIOVASCULAR: S1 and S2 present. No murmurs, rubs, or gallops. PULMONARY: Chest is clear to auscultation, no wheezing or crackles. ABDOMEN: Soft, nontender, nondistended, normoactive bowel sounds. No palpable organomegaly. MUSCULOSKELETAL: No joint swelling or deformity. EXTREMITIES: No cyanosis, clubbing, or pedal edema. NEUROLOGICAL: Gross neurological examination did not reveal any focal deficits. SKIN: Stage II to 3 ulcer in the lateral aspect of the right foot in the mid fifth metatarsophalangeal joint area without any bone involvement on the x-ray significant redness swelling and local is of temperature of the right foot. Results CBC & Chem 7: 03/18/20 10:25 03/18/20 10:25 Labs: Abnormal Lab Results - Last 24 Hours (Table) 03/18/20 03/18/20 03/18/20 Range/Units 10:25 10:25 10:25 WBC 11.3 H (3.8-10.6) k/uL Neutrophils # 8.3 H (1.3-7.7) k/uL Sodium 135 L (137-145) mmol/L Chloride 96 L (98-107) mmol/L BUN 6 L (7-17) mg/dL Creatinine 0.40 L (0.52-1.04) mg/dL Glucose 300 H (74-99) mg/dL Plasma Lactic Acid Yousif 3.7 H* (0.7-2.0) mmol/L C-Reactive Protein 24.1 H (<10.0) mg/L Thrombosis Risk Factor Assmnt - Choose All That Apply Any of the Below Risk Factors Present?: Yes Each Factor Represents 1 point: Heart failure (<1month) Other congenital or acquired thrombophilia - If yes, enter type in comment: No Thrombosis Risk Factor Assessment Total Risk Factor Score: 1 Thrombosis Risk Factor Assessment Level: Low Risk Assessment and Plan Plan: -Diabetic foot ulcer: Patient has severe diabetic peripheral neuropathy. Patient had infected diabetic foot. Patient will be started on Zosyn and vancomycin infectious disease will be consulted is no significant drainage to culture the ulcer site area. -Peripheral vascular disease: Continue dual antiplatelet therapy and statin counseling regarding nicotine cessation was provided -Diabetic peripheral neuropathy continue gabapentin -Type 2 diabetes mellitus uncontrolled elevated blood sugars will increase of pre-meal insulin as well as long-acting insulin and titrated, blood sugar monitoring and sliding scale insulin and titration depending on sliding scale insulin needs. -Gastroesophageal reflux disease -Depression -Hyperlipidemia -History of celiac disease patient to be in good and fair diet -Nicotine abuse: Counseling was provided -Due to prophylaxis with Lovenox GI prophylaxis Pepcid
[2020-03-18] MEDS: KETOROLAC 15 MG/ML 1 ML VIAL IVP PRN (17:06)
[2020-03-18] MEDS: HYDROmorphone 0.5 MG/0.5 ML SYRINGE IVP PRN (17:07)
[2020-03-18 17:08] LABS: Glucose,Whole Blood 303 mg/dL (75-99)
[2020-03-18] MEDS: AMPICILLIN-SULBACTAM 3 GM in SODIUM CHLORIDE 0.9% 100 ML IVPB SCH (19:10)
[2020-03-18] MEDS ORDERED: PIPERACILLIN-TAZOBACTAM 3.375 GM in SODIUM CHLORIDE 0.9% 100 ML IVPB SCH (20:00)
[2020-03-18 20:08] LABS: Glucose,Whole Blood 304 mg/dL (75-99)
[2020-03-18] MEDS: FAMOTIDINE 20 MG TAB PO SCH (20:10)
[2020-03-18] MEDS: GABAPENTIN 300 MG CAP PO SCH (20:10)
[2020-03-18] MEDS: ATORVASTATIN 80 MG TAB PO SCH (20:10)
[2020-03-18] MEDS: DULoxetine HCL 60 MG CAPSULE.DR PO SCH (20:10)
[2020-03-18] MEDS: INSULIN DETEMIR (LEVEMIR) 100 UNIT/ML SYR SQ SCH (20:12)
--- NOTE | 2020-03-18 22:02 | CONS ---
CONSULTATION DATE OF SERVICE: 03/18/2020 REASON FOR CONSULTATION: Right diabetic foot ulcer and cellulitis. HISTORY OF PRESENT ILLNESS: The patient is a 59-year-old female with a past medical history significant for CAD, diabetes mellitus, hypertension and hyperlipidemia presenting to the ER with pain, swelling and redness to the right foot. Apparently the patient had a wound on the right foot lateral border that the patient has been taking care of for about a month. The patient is not sure exactly how it started. She mentioned she was using some bacitracin cream and iodine and was doing well until last night, when it started becoming painful. The patient describes the pain to be throbbing, intensity almost 9/10, and no radiation, with associated swelling and redness that spread to the dorsal aspect of the right foot and to the right lower leg. The patient did have some chills but denies high-grade fever. With these symptoms, the patient presented to the hospital. On arrival in the ER, the patient was afebrile. The patient did have a white count of 11.3 with left shift and elevated lactic acid. Creatinine was 0.40. [place] PCR was negative. The patient had x-rays of the right foot soft tissue wound, lateral aspect of the fifth MTP joint; underlying osteopenia throughout the foot. No discrete lytic lesion; tiny 3 cm calcification on the base of the fifth metatarsal could reflect sequela of prior injury. The patient has been started on vancomycin and Zosyn. Infectious Disease was consulted for further management of antibiotic therapy. The patient also had lower extremity Dopplers that were negative for DVT. REVIEW OF SYSTEMS: Positive points have been mentioned in the HPI. Rest of the systems are negative. PAST MEDICAL HISTORY: CVA, TIA, diabetes mellitus, gastroesophageal reflux disease, hypertension, hyperlipidemia, CAD. PAST SURGICAL HISTORY: Back surgery, cholecystectomy, PTCA with stent, lumbar fusion, stent to the left iliac artery. SOCIAL HISTORY: Current everyday smoker. No drinking or drug use. FAMILY HISTORY: Father with history of liver cancer and cirrhosis. Mother with history of cardiac disease. ALLERGIES: GLUTEN. MEDICATIONS: The patient is currently on [place], aspirin, Lipitor, Cymbalta, Lovenox, Pepcid, Neurontin, Dilaudid, NovoLog, Levemir, Toradol, Narcan, Nitrostat, Protonix, vancomycin and Zosyn. PHYSICAL EXAMINATION: Her blood pressure is 115/77 with a pulse of 79, temperature 98. She is 98% on room air. General description is a middle-aged female lying in bed in no distress. No tachypnea or accessory muscle of respiration use. HEENT: Examination shows no pallor or scleral icterus. Oral mucous membrane is dry. No pharyngeal erythema or thrush. NECK: Trachea is central. No thyromegaly. LUNGS: Unlabored breathing. Clear to auscultation anteriorly. No wheeze or crackle. HEART: S1, S2. Regular rate and rhythm. ABDOMEN: Soft. No tenderness. No guarding or rigidity. EXTREMITIES: Right foot lateral border did have a wound with infected callus. On pressure purulent material came out. The patient did have warmth and redness to the right foot with some extension to the right lower leg. Neurologically the patient is awake, alert, oriented x3. Mood and affect normal. LABS: Hemoglobin is 15.5, white count 11.3, left shift. Lactic acid 3.7. Creatinine 0.40. CRP was 24.1. DIAGNOSTIC IMPRESSION AND PLAN: Patient with right diabetic foot infection with an infected callus. Will need to cover for the polymicrobial masha usually associated with these types of infection, including both Gram-positive as well as Gram-negative. PLAN: 1. Local wound culture has been obtained to guide further antibiotic therapy. 2. Patient will benefit from surgical debridement of this ulcer and deep culture and to make sure the wound does not extend down to the bone, suspicious for osteomyelitis. 3. We will continue the patient on vancomycin, Pharmacy to dose, target of 15; however, discontinue Zosyn to decrease risk for nephrotoxicity. Add Unasyn 3 grams q.6 hours. 4. We will follow clinical condition and culture to further adjust medication if needed. Thank you for this consultation. Will follow the patient along with you. MMODL / IJN: [id number] /
[2020-03-18] MEDS: VANCOMYCIN 1,250 MG in SODIUM CHLORIDE 0.9% 250 ML IVPB SCH (22:21)
[2020-03-19] MEDS: AMPICILLIN-SULBACTAM 3 GM in SODIUM CHLORIDE 0.9% 100 ML IVPB SCH ×4 (00:10→17:47)
[2020-03-19 07:19] LABS: Glucose,Whole Blood 234 mg/dL (75-99)
[2020-03-19] MEDS: VANCOMYCIN 1,250 MG in SODIUM CHLORIDE 0.9% 250 ML IVPB SCH ×3 (07:31→22:39)
[2020-03-19] MEDS: INSULIN ASPART (NovoLOG) 100 UNIT/ML VIAL SQ SCH ×7 (08:17→21:02)
[2020-03-19] MEDS: HYDROcodone/APAP 5-325MG 1 EACH TAB PO PRN (09:44)
[2020-03-19] MEDS: PRASUGREL 10 MG TAB PO SCH (09:53)
[2020-03-19] MEDS: FAMOTIDINE 20 MG TAB PO SCH ×2 (09:53→21:00)
[2020-03-19] MEDS: ASPIRIN 81 MG PO SCH (09:53)
[2020-03-19] MEDS: GABAPENTIN 300 MG CAP PO SCH ×2 (09:53→21:00)
[2020-03-19] MEDS: ENOXAPARIN 40 MG/0.4 ML SYRINGE SQ SCH (09:53)
[2020-03-19] MEDS: SODIUM CHLORIDE 0.9% 1,000 ML IV SCH ×3 (10:10→21:59)
--- NOTE | 2020-03-19 11:12 | P.CRDCN ---
History of Present Illness Consult date: 03/19/20 History of present illness: CHIEF COMPLAINT: PVD HISTORY OF PRESENT ILLNESS: This is a 59 year old female with a past medical history significant for coronary artery disease, peripheral vascular disease, diabetes, hyperlipidemia, and nicotine dependence. Patient follows in the office with Dr. Lock. We have been asked to see the patient in consultation for PVD. Patient examined this morning at the bedside. Patient reports a history of wounds to her feet in the past. She presented to the hospital due to a wound on the lateral aspect of her right foot. She reported increased pain to her foot along with swelling and redness. She has been seen by infectious disease and started on antibiotics. She reports improvement in the pain this morning. She denies chest pain or pressure. She denies shortness of breath. Denies dizziness or lightheadedness. Denies fever or chills. Denies cough or congestion. Patient reports having bad balance and a history of falls. She reports neuropathy in her legs as well. DIAGNOSTICS: Foot x-ray: Soft tissue wound lateral aspect of fifth MTP joint. Underlying osteopenia. Laboratory data: WBC 11.3. Hemoglobin 15.5. Platelet count 179. Sodium 135. Potassium 3.7. BUN 6. Creatinine 0.40. Lactic acid 1.4. Current home cardiac medications include Effient 10 mg daily, Lipitor 80 mg daily, aspirin 81 mg daily Echocardiogram from 2016 reveals ejection fraction 60-65% REVIEW OF SYSTEMS: At the time of my exam: CONSTITUTIONAL: Denies fever or chills. HEENT: Denies blurred vision, vision changes, or eye pain. Denies hemoptysis CARDIOVASCULAR: Denies chest pain, orthopnea, PND or palpitations RESPIRATORY: No shortness of breath. GASTROINTESTINAL: Denies abdominal pain. Denies nausea or vomiting. HEMATOLOGIC: Denies bleeding disorders. GENITOURINARY: Denies any blood in urine. SKIN: Denies pruitis. Denies rash. PHYSICAL EXAM: VITAL SIGNS: Reviewed. GENERAL: Well-developed in no acute distress. HEENT: Head is normocephalic. Pupils are equal, round. Sclerae anicteric. Mucous membranes of the mouth are moist. Neck supple. No JVD or thyromegaly. Bilateral carotid bruit noted. LUNGS: Respirations even and unlabored. Lungs essentially clear to auscultation bilaterally. HEART: Regular rate and rhythm. S1 and S2 heard. Systolic murmur noted. ABDOMEN: Soft. Nondistended. Nontender. EXTREMITIES: No clubbing or cyanosis. Peripheral pulses intact. No lower extremity edema. Wound to lateral aspect of right foot with erythema present. NEUROLOGIC: Awake and alert. Oriented x 3. ASSESSMENT: Right diabetic foot ulcer Coronary artery disease with previous PCI to RCA, LAD, and circumflex Peripheral vascular disease with previous stenting of right iliac artery Hyperlipidemia Diabetes mellitus Peripheral neuropathy Nicotine dependence PLAN: Continue current cardiac medications Infectious disease following for foot ulcer Patient currently stable from a cardiac perspective Further recommendations pending patient course Nurse practitioner note has been reviewed by physician. Signing provider agrees with the documented findings, assessment, and plan of care. Past Medical History Past Medical History: CVA/TIA, Diabetes Mellitus, GERD/Reflux, Hyperlipidemia, Hypertension, Vascular Disorder Additional Past Medical History / Comment(s): IDDM, neuropathy bilateral feet, pancreatitis X2 (Last was 05/02), CVA with R sided weakness, L hip fracture, PAD, celiac disease, chronic low back pain, UTIs, duodenitis/duodenal ulcer, hiatal hernia., History of Any Multi-Drug Resistant Organisms: None Reported Past Surgical History: Back Surgery, Cholecystectomy, Heart Catheterization With Stent, Orthopedic Surgery Additional Past Surgical History / Comment(s): Lumbar fusion, spinal cord stimulator, L knee arthroscopy, EGD, PATRICIA, cardiac cath with 3 stents in February 2017, Aortoram 09/18/18, 09-25-18 stent to the L iliac artery. Past Anesthesia/Blood Transfusion Reactions: No Reported Reaction Additional Past Anesthesia/Blood Transfusion Reaction / Comment(s): Never had blood transfusion Date of Last Stent Placement:: 02/2017 Smoking Status: Current every day smoker - Past Family History Father Family Medical History: Cancer, Liver Disease Additional Family Medical History / Comment(s): Idiopathic cirrhosis of liver, Liver CA Mother Family Medical History: Coronary Artery Disease (CAD), Myocardial Infarction (ME) Additional Family Medical History / Comment(s): Multiple stents. Mother at the age of 77 or 78yrs from [place]. Medications and Allergies Home Medications Medication Instructions Recorded Confirmed Type Gabapentin [Neurontin] 300 mg PO DAILY 03/18/14 03/18/20 History Atorvastatin [Lipitor] 80 mg PO HS 06/26/16 03/18/20 History DULoxetine HCL [Cymbalta] 60 mg PO HS 06/26/16 03/18/20 History Nitroglycerin Sl Tabs [Nitrostat] 0.4 mg SUBLINGUAL Q5M PRN #50 tab 07/02/16 03/18/20 Rx Gabapentin [Neurontin] 900 mg PO HS 05/15/17 03/18/20 History Aspirin 81 mg PO DAILY 10/08/17 03/18/20 History Prasugrel [Effient] 10 mg PO DAILY 10/08/17 03/18/20 History Omeprazole 20 mg PO DAILY PRN 07/01/19 03/18/20 History INSULIN ASPART (NovoLOG) [NovoLOG See Protocol SQ ACHS 08/04/19 03/18/20 History (formulary)] HYDROcodone/APAP 5-325MG [[place] 1 tab PO Q8HR PRN #12 tab 08/05/19 03/18/20 Rx 5-325] INSULIN ASPART (NovoLOG) [NovoLOG 10 unit SQ AC-TID vial 08/05/19 03/18/20 Rx (formulary)] Insulin Glargine [Lantus] 50 unit SQ HS #0 08/05/19 03/18/20 Rx Allergies Allergy/AdvReac Type Severity Reaction Status Date / Time gluten AdvReac Nausea & Verified 03/18/20 12:10 Vomiting & Diarrhea Physical Exam Vitals: Vital Signs Temp Pulse Pulse Resp BP BP Pulse Ox 03/19/20 05:00 98.7 F 78 153/84 94 L 03/18/20 20:12 98.1 F 79 20 129/76 96 03/18/20 19:10 20 03/18/20 16:00 98 F 79 14 115/77 98 03/18/20 15:34 98.3 F 86 16 130/92 97 03/18/20 14:02 86 16 130/92 97 03/18/20 12:10 84 16 111/76 96 Intake and Output 03/18/20 03/19/20 03/19/20 22:59 06:59 14:59 Intake Total 540 1170 Balance 540 1170 Intake: Intake, IV Titration 1050 Amount Ampicillin-Sulbactam 3 gm 200 In Sodium Chloride 0.9% 100 ml @ 200 mls/hr IVPB Q6HR [facility] Rx#:[id number] Sodium Chloride 0.9% 1, 600 000 ml @ 75 mls/hr IV . [id number] [facility] Rx#:[id number] Vancomycin 1,250 mg In 250 Sodium Chloride 0.9% 250 ml @ 125 mls/hr IVPB Q8H [facility] Rx#:[id number] Oral 540 120 Other: Voiding Method Toilet Toilet # Voids 1 1 Results 03/18/20 10:25 03/18/20 10:25 Cardiac Enzymes 03/18/20 Range/Units 10:25 AST 17 (14-36) U/L Comprehensive Metabolic Panel 03/18/20 Range/Units 10:25 Sodium 135 L (137-145) mmol/L Potassium 3.7 (3.5-5.1) mmol/L Chloride 96 L (98-107) mmol/L Carbon Dioxide 24 (22-30) mmol/L BUN 6 L (7-17) mg/dL Creatinine 0.40 L (0.52-1.04) mg/dL Glucose 300 H (74-99) mg/dL Calcium 9.4 (8.4-10.2) mg/dL AST 17 (14-36) U/L ALT 14 (4-34) U/L Alkaline Phosphatase 61 (38-126) U/L Total Protein 7.2 (6.3-8.2) g/dL Albumin 4.3 (3.5-5.0) g/dL Current Medications Generic Name Dose Route Start Last Admin Trade Name Freq PRN Reason Stop Dose Admin Hydrocodone Bitart/Acetaminophen 1 each 03/18/20 13:55 03/19/20 09:44 Hydrocodone/Apap 5-325mg 1 Each Tab PO 1 each Q8HR PRN Administration Pain Aspirin 81 mg 03/19/20 09:00 03/19/20 09:53 Aspirin 81 Mg PO 81 mg DAILY [facility] Administration Atorvastatin Calcium 80 mg 03/18/20 21:00 03/18/20 20:10 Atorvastatin 80 Mg Tab PO 80 mg HS [facility] Administration Duloxetine HCl 60 mg 03/18/20 21:00 03/18/20 20:10 Duloxetine Hcl 60 Mg Capsule.Dr PO 60 mg HS [facility] Administration Enoxaparin Sodium 40 mg 03/19/20 09:00 03/19/20 09:53 Enoxaparin 40 Mg/0.4 Ml Syringe SQ 40 mg DAILY [facility] Administration Famotidine 20 mg 03/18/20 21:00 03/19/20 09:53 Famotidine 20 Mg Tab PO 20 mg BID [facility] Administration Gabapentin 300 mg 03/19/20 09:00 03/19/20 09:53 Gabapentin 300 Mg Cap PO 300 mg DAILY [facility] Administration Gabapentin 900 mg 03/18/20 21:00 03/18/20 20:10 Gabapentin 300 Mg Cap PO 900 mg HS [facility] Administration Hydromorphone HCl 0.5 mg 03/18/20 11:59 03/18/20 17:07 Hydromorphone 0.5 Mg/0.5 Ml Syringe IVP 0.5 mg Q3HR PRN Administration Moderate Pain Sodium Chloride 1,000 mls @ 75 mls/hr 03/18/20 12:00 03/19/20 10:10 Saline 0.9% IV Not Given .[id number] [facility] Vancomycin HCl 1,250 mg/ 250 mls @ 125 mls/hr 03/18/20 23:00 03/19/20 07:31 Sodium Chloride IVPB 125 mls/hr Q8H [facility] Administration Ampicillin Sodium/Sulbactam 100 mls @ 200 mls/hr 03/18/20 18:00 03/19/20 05:10 Sodium 3 gm/ Sodium Chloride IVPB 200 mls/hr Q6HR [facility] Administration Insulin Aspart 0 unit 03/18/20 12:30 03/19/20 08:17 Insulin Aspart (Novolog) 100 Unit/Ml Vial SQ 3 unit ACHS [facility] Administration Protocol Insulin Aspart 15 unit 03/18/20 17:30 03/19/20 08:18 Insulin Aspart (Novolog) 100 Unit/Ml Vial SQ 15 unit AC-TID [facility] Administration Insulin Detemir 60 unit 03/18/20 21:00 03/18/20 20:12 Insulin Detemir (Levemir) 100 Unit/Ml Syr SQ 60 unit HS [facility] Administration Ketorolac Tromethamine 15 mg 03/18/20 14:09 03/18/20 17:06 Ketorolac 15 Mg/Ml 1 Ml Vial IVP 03/23/20 14:10 15 mg Q6HR PRN Administration Pain Miscellaneous Information 0 each 03/20/20 06:00 Vancomycin Trough Due 1 Each Misc MISCELLANE 03/20/20 06:01 DIRECTED ONE Naloxone HCl 0.2 mg 03/18/20 11:59 Naloxone 0.4 Mg/Ml 1 Ml Vial IV Q2M PRN Opioid Reversal Nitroglycerin 0.4 mg 03/18/20 13:55 Nitroglycerin Sl Tabs 0.4 Mg Tab SUBLINGUAL Q5M PRN Chest Pain Pantoprazole Sodium 40 mg 03/18/20 13:55 Pantoprazole 40 Mg Tablet PO DAILY PRN gerd Prasugrel 10 mg 03/19/20 09:00 03/19/20 09:53 Prasugrel 10 Mg Tab PO 10 mg DAILY [facility] Administration Intake and Output 03/18/20 03/19/20 03/19/20 22:59 06:59 14:59 Intake Total 540 1170 Balance 540 1170 Intake: Intake, IV Titration 1050 Amount Ampicillin-Sulbactam 3 gm 200 In Sodium Chloride 0.9% 100 ml @ 200 mls/hr IVPB Q6HR [facility] Rx#:[id number] Sodium Chloride 0.9% 1, 600 000 ml @ 75 mls/hr IV . [id number] [facility] Rx#:[id number] Vancomycin 1,250 mg In 250 Sodium Chloride 0.9% 250 ml @ 125 mls/hr IVPB Q8H [facility] Rx#:[id number] Oral 540 120 Other: Voiding Method Toilet Toilet # Voids 1 1 03/18/20 10:25 03/18/20 10:25
[2020-03-19 12:14] VITALS: BMI 21.6
[2020-03-19 12:19] LABS: Glucose,Whole Blood 219 mg/dL (75-99)
--- NOTE | 2020-03-19 15:46 | P.PN ---
Subjective Progress Note Date: 03/19/20 Patient is a very pleasant 59-year-old female came in with complaints of severe pain swelling and redness and cellulitis of the right foot. Patient started having ulceration of the right foot on the lateral aspect in the metatarsal area of the right foot. Patient started having pain swelling and redness with yesterday. Patient denied any history of MRSA in the past. Patient the does have history of progressive disease had history of angiograms of the right lower limb in the past. Patient has some disease in superficial femoral artery patient is on dual antiplatelet therapy for that. Patient blood sugars are uncontrolled at home and patient says she is compliant with diet and medications. Although patient admits to smoking still continues to smoke 1 pack per day trying to quit smoking. Patient denied any fever chills patient is found to have elevated lactic acid of around 2.4 with leukocytosis patient was started on Zosyn and vancomycin and subsequently admitted to the hospital. 03/19/2020 Patient is seen and evaluated and follow-up currently being maintained on IV antibiotics in the form of vancomycin and Zosyn for right foot cellulitis. Patient continues to have discomfort although redness and swelling has slightly improved. Infectious disease is following and awaiting consult to Dr. Padilla for debridement of the right foot. Cardiology also consulted and following for peripheral vascular disease she follows with Dr. Lock in the outpatient setting. Recommending continuing current medications. Review of systems: Constitutional: No reports of fatigue, fever, or chills Cardiovascular: No reports of chest pain or palpitations Respiratory: No reports of shortness of breath or cough GI: No reports of nausea, vomiting, or diarrhea : No reports of dysuria or retention Neurovascular: No reports of weakness or numbness All medications have been reviewed Objective - Vital Signs Vital signs: Vital Signs Temp 97.5 F L 03/19/20 12:57 Pulse 59 L 03/19/20 12:57 Resp 17 03/19/20 12:57 BP 127/68 03/19/20 12:57 Pulse Ox 100 03/19/20 12:57 Intake & Output 03/18/20 03/19/20 03/19/20 18:59 06:59 18:59 Intake Total 540 1170 Balance 540 1170 Weight 64.41 kg 64.41 kg Intake: Intake, IV Titration 1050 Amount Ampicillin-Sulbactam 3 gm 200 In Sodium Chloride 0.9% 100 ml @ 200 mls/hr IVPB Q6HR [facility] Rx#:[id number] Sodium Chloride 0.9% 1, 600 000 ml @ 75 mls/hr IV . [id number] [facility] Rx#:[id number] Vancomycin 1,250 mg In 250 Sodium Chloride 0.9% 250 ml @ 125 mls/hr IVPB Q8H [facility] Rx#:[id number] Oral 540 120 Other: Voiding Method Toilet Toilet Toilet # Voids 1 1 - Exam GENERAL: The patient is alert and oriented x3, not in any acute distress. Well developed, well nourished. HEENT: Pupils are round and equally reacting to light. EOMI. No scleral icterus. No conjunctival pallor. Normocephalic, atraumatic. No pharyngeal erythema. No thyromegaly. CARDIOVASCULAR: S1 and S2 present. No murmurs, rubs, or gallops. PULMONARY: Chest is clear to auscultation, no wheezing or crackles. ABDOMEN: Soft, nontender, nondistended, normoactive bowel sounds. No palpable organomegaly. MUSCULOSKELETAL: No joint swelling or deformity. EXTREMITIES: No cyanosis, clubbing, or pedal edema. NEUROLOGICAL: Gross neurological examination did not reveal any focal deficits. SKIN: Stage II to 3 ulcer in the lateral aspect of the right foot in the mid fifth metatarsophalangeal joint area without any bone involvement on the x-ray significant redness swelling and localized temperature of the right foot. Slight improvement noted on redness and swelling - Labs CBC & Chem 7: 03/18/20 10:25 03/18/20 10:25 Labs: Abnormal Lab Results - Last 24 Hours (Table) 03/18/20 03/18/20 03/18/20 Range/Units 14:04 14:15 17:06 POC Glucose (mg/dL) 338 H 303 H (75-99) mg/dL Plasma Lactic Acid Yousif 2.6 H* (0.7-2.0) mmol/L 03/18/20 03/18/20 03/18/20 Range/Units 17:28 20:03 20:15 POC Glucose (mg/dL) 304 H (75-99) mg/dL Plasma Lactic Acid Yousif 2.6 H* 2.5 H* (0.7-2.0) mmol/L 03/19/20 03/19/20 Range/Units 07:17 12:18 POC Glucose (mg/dL) 234 H 219 H (75-99) mg/dL Plasma Lactic Acid Yousif (0.7-2.0) mmol/L Microbiology - Last 24 Hours (Table) 03/18/20 10:56 Blood Culture - Preliminary Blood No Growth after 24 hours 03/18/20 10:47 Blood Culture - Preliminary Blood No Growth after 24 hours 03/18/20 17:30 Gram Stain - Preliminary Foot - Right Wound Culture - Preliminary 03/18/20 17:30 Anaerobic Culture - Preliminary Foot - Right Assessment and Plan Assessment: -Diabetic foot ulcer: Patient has severe diabetic peripheral neuropathy. Patient had infected diabetic foot. Patient currently maintained on vancomycin and Unasyn added. infectious disease following. Wound cultures obtained and currently pending. Dr. Padilla consulted and pending for possible wound debridement and assess for possible osteomyelitis of the right foot. -Peripheral vascular disease: Continue dual antiplatelet therapy and statin counseling regarding nicotine cessation was provided, cardiology consulted -Diabetic peripheral neuropathy continue gabapentin -Type 2 diabetes mellitus uncontrolled elevated blood sugars will increase of pre-meal insulin as well as long-acting insulin and titrate as needed -Gastroesophageal reflux disease -Depression -Hyperlipidemia -History of celiac disease patient to be in good and fair diet -Nicotine abuse: Counseling was provided -DVT prophylaxis with Lovenox -GI prophylaxis Pepcid Plan: Continue current IV antibiotics in the form of vancomycin and Unasyn. Infectious disease is following. Consult with Dr. Padilla pending for possible wound debridement. Cardiology consulted and following. Patient underwent venous Doppler which was negative. Will repeat a.m. labs.
[2020-03-19 16:58] LABS: Glucose,Whole Blood 314 mg/dL (75-99)
[2020-03-19] MEDS: HYDROmorphone 0.5 MG/0.5 ML SYRINGE IVP PRN ×2 (17:47→22:37)
--- NOTE | 2020-03-19 18:51 | PN ---
PROGRESS NOTE DATE OF SERVICE: 03/19/2020 REASON FOR FOLLOWUP: Right diabetic foot wound with secondary cellulitis. INTERVAL HISTORY: The patient is currently afebrile. The patient is breathing comfortably. Overall pain and discomfort to the right foot lateral border wound is slightly decreased. No chest pain. No cough. No abdominal pain or diarrhea. PHYSICAL EXAMINATION: Blood pressure 136/80 with a pulse of 74, temperature 99. She is 95% on room air. General description is a middle-aged female lying in bed in no distress. RESPIRATORY SYSTEM: Unlabored breathing. Clear to auscultation anteriorly. HEART: S1, S2. Regular rate and rhythm. ABDOMEN: Soft. No tenderness. Right foot lateral border wound with an infected callus. No drainage was noticed. Redness slightly decreased. LABS: Wound culture currently pending. DIAGNOSTIC IMPRESSION/PLAN: Patient with a right foot lateral border diabetic foot wound with secondary cellulitis, concern for underlying osteomyelitis. The patient is currently covered with vancomycin; to continue, waiting for surgical debridement and deep cultures. Monitor clinical course closely. MMODL / IJN: [id number] /
[2020-03-19 20:14] LABS: Glucose,Whole Blood 287 mg/dL (75-99)
[2020-03-19] MEDS: ATORVASTATIN 80 MG TAB PO SCH (20:59)
[2020-03-19] MEDS: DULoxetine HCL 60 MG CAPSULE.DR PO SCH (21:00)
[2020-03-19] MEDS: INSULIN DETEMIR (LEVEMIR) 100 UNIT/ML SYR SQ SCH (21:01)
[2020-03-19] MEDS: NICOTINE 21MG/24HR PATCH TRANSDERM SCH ×2 (21:12→21:18)
[2020-03-19] MEDS: MELATONIN 5 MG TABLET PO PRN (22:38)
--- NOTE | 2020-03-19 23:06 | CONS ---
CONSULTATION This is a 59-year-old female patient who came through the emergency room with an infected callus, right foot plantar aspect and lateral aspect of the foot of 2 months' duration. Patient has history of diabetes, peripheral vascular disease. Patient was seen by Infectious Disease and started on antibiotic. MEDICAL HISTORY: History of coronary artery bypass in the past, hypertension, diabetes mellitus, peripheral vascular disease. PHYSICAL EXAMINATION: Patient was seen in her room. NECK: Supple. Trachea central. CHEST: Clear to auscultation. ABDOMEN: Soft. Femorals are 2+ bilaterally. PT, DP not palpable. On patient's right foot lateral aspect of the foot there is callus formation with some devitalized tissue and infected. The callus is very close to the fifth toe. PLAN: Discussed with the patient. Patient needs excision of the infected calluses, possible fifth toe if the bone is involved. The patient is on IV antibiotic. We will continue that. We will schedule for tomorrow. N.p.o. midnight. MMODL / IJN: [id number] /
[2020-03-20] MEDS: AMPICILLIN-SULBACTAM 3 GM in SODIUM CHLORIDE 0.9% 100 ML IVPB SCH ×4 (00:43→18:08)
[2020-03-20] MEDS ORDERED: VANCOMYCIN TROUGH DUE 1 EACH MISC MISCELLANE ONE (06:00)
[2020-03-20 07:10] LABS: Glucose,Whole Blood 325 mg/dL (75-99)
--- NOTE | 2020-03-20 08:06 | P.PN ---
Subjective Progress Note Date: 03/20/20 Principal diagnosis: Critical limb ischemia This is a 59-year-old female patient with a past medical history significant for coronary artery disease and peripheral arterial disease as well as diabetes who was admitted to the hospital with pain at the right foot. She was diagnosed with cellulitis of the right foot and possible osteomyelitis. She developed nonhealing ulcer involving the lateral aspect of the right foot. Currently infectious disease as well as vascular surgery is are on the case. Objective - Vital Signs Vital signs: Vital Signs Temp 98.2 F 03/20/20 04:10 Pulse 70 03/20/20 04:10 Resp 12 03/20/20 04:10 BP 125/74 03/20/20 04:10 Pulse Ox 95 03/20/20 04:10 Intake & Output 03/19/20 03/20/20 03/20/20 18:59 06:59 18:59 Intake Total 1140 1715 Balance 1140 1715 Weight 64.41 kg Intake: Intake, IV Titration 1125 Amount Ampicillin-Sulbactam 3 gm 200 In Sodium Chloride 0.9% 100 ml @ 200 mls/hr IVPB Q6HR [facility] Rx#:[id number] Sodium Chloride 0.9% 1, 675 000 ml @ 75 mls/hr IV . [id number] [facility] Rx#:[id number] Vancomycin 1,250 mg In 250 Sodium Chloride 0.9% 250 ml @ 125 mls/hr IVPB Q8H [facility] Rx#:[id number] Oral 1140 590 Other: Voiding Method Toilet Toilet # Voids 3 - Constitutional General appearance: Present: no acute distress - Respiratory Respiratory: bilateral: CTA - Cardiovascular Rhythm: regular Heart sounds: normal: S1, S2 Abnormal Heart Sounds: Present: systolic murmur - Labs CBC & Chem 7: 03/18/20 10:25 03/18/20 10:25 Labs: Abnormal Lab Results - Last 24 Hours (Table) 03/19/20 03/19/20 03/19/20 Range/Units 04:03 12:18 16:56 ESR 31 H (0-30) mm/Hr POC Glucose (mg/dL) 219 H 314 H (75-99) mg/dL 03/19/20 03/20/20 Range/Units 20:11 07:09 ESR (0-30) mm/Hr POC Glucose (mg/dL) 287 H 325 H (75-99) mg/dL Microbiology - Last 24 Hours (Table) 03/18/20 17:30 Gram Stain - Preliminary Foot - Right Wound Culture - Preliminary Strep agalactiae - (group b) 03/18/20 10:56 Blood Culture - Preliminary Blood No Growth after 24 hours 03/18/20 10:47 Blood Culture - Preliminary Blood No Growth after 24 hours Assessment and Plan Assessment: Assessment #1 critical limb ischemia of the right foot #2 known peripheral arterial disease next #3 hypertension #4 dyslipidemia #5 diabetes Plan #1 continue the current medical regimen #2 possible need for angiogram to rule out occlusive PAD #3 follow-up with the patient
[2020-03-20] MEDS: VANCOMYCIN 1,250 MG in SODIUM CHLORIDE 0.9% 250 ML IVPB SCH (08:13)
[2020-03-20] MEDS: INSULIN ASPART (NovoLOG) 100 UNIT/ML VIAL SQ SCH ×7 (08:13→22:12)
[2020-03-20] MEDS: PRASUGREL 10 MG TAB PO SCH (08:14)
[2020-03-20] MEDS: ENOXAPARIN 40 MG/0.4 ML SYRINGE SQ SCH (08:15)
[2020-03-20] MEDS: ASPIRIN 81 MG PO SCH (08:16)
[2020-03-20] MEDS: GABAPENTIN 300 MG CAP PO SCH ×2 (08:16→22:11)
[2020-03-20] MEDS: NICOTINE 21MG/24HR PATCH TRANSDERM SCH (08:16)
[2020-03-20] MEDS: FAMOTIDINE 20 MG TAB PO SCH ×2 (08:16→22:10)
[2020-03-20 09:32] LABS: African American GFR (CKD) 117.3 (60.0-200.0); Anion Gap 7.3 mmol/L (4.00-12.00); BUN/Creat Ratio 11.67 Ratio (12.00-20.00); Calcium 8.6 mg/dL (8.7-10.3); Carbon Dioxide 27.7 mmol/L (21.6-31.8); Non-African American GFR(CKD) 101.2 (60.0-200.0)
[2020-03-20] MEDS ORDERED: ONDANSETRON 4 MG/2 ML VIAL IVP PRN (10:41)
[2020-03-20] MEDS: KETOROLAC 15 MG/ML 1 ML VIAL IVP PRN (11:03)
--- NOTE | 2020-03-20 11:16 | P.PN ---
Subjective 59-year-old female came in with complaints of severe pain swelling and redness and cellulitis of the right foot. Patient started having ulceration of the right foot on the lateral aspect in the metatarsal area of the right foot. Patient started having pain swelling and redness with yesterday. Patient denied any history of MRSA in the past. Patient the does have history of progressive disease had history of angiograms of the right lower limb in the past. Patient has some disease in superficial femoral artery patient is on dual antiplatelet therapy for that. Patient blood sugars are uncontrolled at home and patient says she is compliant with diet and medications. Although patient admits to smoking still continues to smoke 1 pack per day trying to quit smoking. Patient denied any fever chills patient is found to have elevated lactic acid of around 2.4 with leukocytosis patient was started on Zosyn and vancomycin and subsequently admitted to the hospital. 03/19/2020 Patient is seen and evaluated and follow-up currently being maintained on IV antibiotics in the form of vancomycin and Unasyn for right foot cellulitis. Patient continues to have discomfort although redness and swelling has slightly improved. Infectious disease is following and awaiting consult to Dr. Padilla for debridement of the right foot. Cardiology also consulted and following for peripheral vascular disease she follows with Dr. Lock in the outpatient setting. Recommending continuing current medications. 03/20/2020 Patient still has significant redness pain is bit better significant swelling in the right leg. She'll be continued on IV antibiotics Constitutional: Denied any fatigue denied any fever. Cardio vascular: denied any chest pain, palpitations Gastrointestinal denied any nausea vomiting Pulmonary: Denied any shortness of breath cough Neurologic denied any new focal deficits All inpatient medications were reviewed and appropriate changes in these medications as dictated in the interval history and assessment and plan. Objective - Vital Signs Vital signs: Vital Signs Temp 98.2 F 03/20/20 04:10 Pulse 70 03/20/20 08:00 Resp 12 03/20/20 08:00 BP 125/74 03/20/20 04:10 Pulse Ox 95 03/20/20 04:10 Intake & Output 03/19/20 03/20/20 03/20/20 18:59 06:59 18:59 Intake Total 1140 1715 480 Balance 1140 1715 480 Weight 64.41 kg Intake: Intake, IV Titration 1125 Amount Ampicillin-Sulbactam 3 gm 200 In Sodium Chloride 0.9% 100 ml @ 200 mls/hr IVPB Q6HR [facility] Rx#:[id number] Sodium Chloride 0.9% 1, 675 000 ml @ 75 mls/hr IV . [id number] [facility] Rx#:[id number] Vancomycin 1,250 mg In 250 Sodium Chloride 0.9% 250 ml @ 125 mls/hr IVPB Q8H [facility] Rx#:[id number] Oral 1140 590 480 Other: Voiding Method Toilet Toilet Toilet # Voids 3 - Exam GENERAL: The patient is alert and oriented x3, not in any acute distress. Well developed, well nourished. HEENT: Pupils are round and equally reacting to light. EOMI. No scleral icterus. No conjunctival pallor. Normocephalic, atraumatic. No pharyngeal erythema. No thyromegaly. CARDIOVASCULAR: S1 and S2 present. No murmurs, rubs, or gallops. PULMONARY: Chest is clear to auscultation, no wheezing or crackles. ABDOMEN: Soft, nontender, nondistended, normoactive bowel sounds. No palpable organomegaly. MUSCULOSKELETAL: No joint swelling or deformity. EXTREMITIES: No cyanosis, clubbing, or pedal edema. NEUROLOGICAL: Gross neurological examination did not reveal any focal deficits. SKIN: Stage II to 3 ulcer in the lateral aspect of the right foot in the mid fifth metatarsophalangeal joint area without any bone involvement on the x-ray significant redness swelling and localized temperature of the right foot. Slight improvement noted on redness and swelling - Labs CBC & Chem 7: 03/18/20 10:25 03/20/20 05:38 Labs: Abnormal Lab Results - Last 24 Hours (Table) 03/19/20 03/19/20 03/19/20 Range/Units 04:03 12:18 16:56 ESR 31 H (0-30) mm/Hr BUN (9.0-27.0) mg/dL BUN/Creatinine Ratio (12.00-20.00) Ratio Glucose (70-110) mg/dL POC Glucose (mg/dL) 219 H 314 H (75-99) mg/dL Calcium (8.7-10.3) mg/dL 03/19/20 03/20/20 03/20/20 Range/Units 20:11 05:38 07:09 ESR (0-30) mm/Hr BUN 7.0 L (9.0-27.0) mg/dL BUN/Creatinine Ratio 11.67 L (12.00-20.00) Ratio Glucose 308 H (70-110) mg/dL POC Glucose (mg/dL) 287 H 325 H (75-99) mg/dL Calcium 8.6 L (8.7-10.3) mg/dL Microbiology - Last 24 Hours (Table) 03/18/20 17:30 Gram Stain - Preliminary Foot - Right Wound Culture - Preliminary Strep agalactiae - (group b) 03/18/20 10:56 Blood Culture - Preliminary Blood No Growth after 24 hours 03/18/20 10:47 Blood Culture - Preliminary Blood No Growth after 24 hours Assessment and Plan Plan: -Diabetic foot ulcer: Patient has severe diabetic peripheral neuropathy. Patient had infected diabetic foot. Patient currently maintained on vancomycin and Unasyn added. infectious disease following. Wound cultures obtained and currently pending. Dr. Padilla consulted and pending for possible wound debridement and assess for possible osteomyelitis of the right foot. -Peripheral vascular disease: Continue dual antiplatelet therapy and statin counseling regarding nicotine cessation was provided, cardiology consulted -Diabetic peripheral neuropathy continue gabapentin -Type 2 diabetes mellitus uncontrolled elevated blood sugars will increase of pre-meal insulin as well as long-acting insulin and titrate as needed -Gastroesophageal reflux disease -Depression -Hyperlipidemia -History of celiac disease patient to be in good and fair diet -Nicotine abuse: Counseling was provided -DVT prophylaxis with Lovenox -GI prophylaxis Pepcid Plan: Continue current IV antibiotics in the form of vancomycin and Unasyn. Infectious disease is following. Consult with Dr. Padilla pending for possible wound debridement. Cardiology consulted and following. Patient underwent venous Doppler which was negative. Will repeat a.m. labs.
[2020-03-20 11:30] LABS: Glucose,Whole Blood 218 mg/dL (75-99)
[2020-03-20] MEDS: SODIUM CHLORIDE 0.9% 1,000 ML IV SCH (16:00)
[2020-03-20 17:03] LABS: Glucose,Whole Blood 158 mg/dL (75-99)
--- NOTE | 2020-03-20 18:58 | PN ---
PROGRESS NOTE DATE OF SERVICE: 03/20/2020 REASON FOR FOLLOWUP: Right diabetic foot infection. INTERVAL HISTORY: The patient is currently afebrile. Patient is breathing comfortably. Denies any chest pain or any cough. No abdominal pain or worsening pain to the right foot lateral border wound area. PHYSICAL EXAMINATION: Blood pressure 150/75, pulse of 73, temperature 98. She is 97% on room air. General description is a middle-aged female lying in bed in no distress. Respiratory system: Unlabored breathing, clear to auscultation anteriorly. Heart S1, S2. Regular rate and rhythm. Right foot is currently dressed up. No obvious drainage on the dressing. LABS: BUN of 7, creatinine 0.6. Culture with Streptococcus agalactiae. Blood culture so far negative. DIAGNOSTIC IMPRESSION AND PLAN: Patient with right foot lateral border wound with secondary cellulitis and concern for underlying osteomyelitis. We are waiting for the debridement and deep cultures. Continue with Unasyn as the cultures positive only for Streptococcus agalactiae and discontinue vancomycin. MMODL / IJN: [id number] /
[2020-03-20 20:25] LABS: Glucose,Whole Blood 254 mg/dL (75-99)
[2020-03-20] MEDS ORDERED: LACTULOSE 20 GM/30 ML CUP PO PRN (20:51)
[2020-03-20] MEDS: ATORVASTATIN 80 MG TAB PO SCH (22:10)
[2020-03-20] MEDS: DULoxetine HCL 60 MG CAPSULE.DR PO SCH (22:10)
[2020-03-20] MEDS: INSULIN DETEMIR (LEVEMIR) 100 UNIT/ML SYR SQ SCH (22:12)
[2020-03-20] MEDS: SENNOSIDES-DOCUSATE SODIUM 1 EACH TAB PO SCH (22:12)
[2020-03-21] MEDS: AMPICILLIN-SULBACTAM 3 GM in SODIUM CHLORIDE 0.9% 100 ML IVPB SCH ×5 (00:08→23:59)
[2020-03-21] MEDS: SODIUM CHLORIDE 0.9% 1,000 ML IV SCH ×2 (00:13→16:08)
[2020-03-21] MEDS: HYDROmorphone 0.5 MG/0.5 ML SYRINGE IVP PRN ×3 (00:14→20:12)
[2020-03-21 06:53] LABS: Glucose,Whole Blood 160 mg/dL (75-99)
--- NOTE | 2020-03-21 08:55 | P.PN ---
Subjective Progress Note Date: 03/21/20 Principal diagnosis: Critical limb ischemia This is a 59-year-old female patient with a past medical history significant for coronary artery disease and peripheral arterial disease as well as diabetes who was admitted to the hospital with pain at the right foot. She was diagnosed with cellulitis of the right foot and possible osteomyelitis. She developed nonhealing ulcer involving the lateral aspect of the right foot. Currently infectious disease as well as vascular surgery is are on the case. Patient was seen this morning. She is going to undergo foot debridement by Dr. Nielson later on today but she denies any anginal chest pain or chest discomfort or shortness of breath. Objective - Vital Signs Vital signs: Vital Signs Temp 98.2 F 03/21/20 06:50 Pulse 76 03/21/20 06:50 Resp 18 03/21/20 06:50 BP 130/67 03/21/20 06:50 Pulse Ox 97 03/21/20 06:50 Intake & Output 03/20/20 03/21/20 03/21/20 18:59 06:59 18:59 Intake Total 1130 Balance 1130 Intake: Oral 1130 Other: Voiding Method Toilet Toilet # Voids 2 2 - Constitutional General appearance: Present: no acute distress - Respiratory Respiratory: bilateral: CTA - Cardiovascular Rhythm: regular Heart sounds: normal: S1, S2 - Labs CBC & Chem 7: 03/18/20 10:25 03/20/20 05:38 Labs: Abnormal Lab Results - Last 24 Hours (Table) 03/20/20 03/20/20 03/20/20 Range/Units 05:38 11:29 17:01 BUN 7.0 L (9.0-27.0) mg/dL BUN/Creatinine Ratio 11.67 L (12.00-20.00) Ratio Glucose 308 H (70-110) mg/dL POC Glucose (mg/dL) 218 H 158 H (75-99) mg/dL Calcium 8.6 L (8.7-10.3) mg/dL 03/20/20 03/21/20 Range/Units 20:09 06:52 BUN (9.0-27.0) mg/dL BUN/Creatinine Ratio (12.00-20.00) Ratio Glucose (70-110) mg/dL POC Glucose (mg/dL) 254 H 160 H (75-99) mg/dL Calcium (8.7-10.3) mg/dL Microbiology - Last 24 Hours (Table) 03/18/20 17:30 Anaerobic Culture - Preliminary Foot - Right 03/18/20 17:30 Gram Stain - Final Foot - Right Wound Culture - Final Strep agalactiae - (group b) 03/18/20 10:56 Blood Culture - Preliminary Blood No Growth after 48 hours 03/18/20 10:47 Blood Culture - Preliminary Blood No Growth after 48 hours Assessment and Plan Assessment: Assessment #1 critical limb ischemia of the right foot #2 known peripheral arterial disease next #3 hypertension #4 dyslipidemia #5 diabetes Plan #1 continue the current medical regimen #2 possible need for angiogram to rule out occlusive PAD #3 follow-up with the patient
[2020-03-21] MEDS ORDERED: IV FLUID CONTINUATION 1,000 ML IV ONE (09:15)
[2020-03-21] MEDS ORDERED: DEXAMETHASONE SOD PHOSPHATE 10 MG/ML 1 ML VIAL IV ONE (09:29)
[2020-03-21] MEDS ORDERED: ONDANSETRON 4 MG/2 ML VIAL IVP ONE (09:29)
[2020-03-21] MEDS ORDERED: MIDAZOLAM 2 MG/2 ML VIAL ONE (09:39)
[2020-03-21] MEDS ORDERED: SUCCINYLCHOLINE CHLORIDE 100 MG/5 ML SYR IV ONE (09:39)
[2020-03-21] MEDS ORDERED: fentaNYL (PF) 50 MCG/ML 2 ML AMP ONE (09:39)
[2020-03-21] MEDS ORDERED: PROPOFOL 10 MG/ML 20 ML VIAL IV ONE (09:39)
[2020-03-21] MEDS ORDERED: LIDOCAINE 1% INJ 10MG/ML (20 ML MDV) ONE (09:39)
--- NOTE | 2020-03-21 10:00 | PN ---
PROGRESS NOTE This is a 59-year-old diabetic female. Patient came with infected callus right foot lateral aspect of the foot. This morning the infection is spreading to the dorsal aspect of the foot and involving the base of the fifth toe and there is a lot of drainage noted from the base of the ulcer. PLAN: Ray amputation of the right foot 5th toe and excision of the callus. MMODL / IJN: [id number] /
[2020-03-21 10:38] LABS: Glucose,Whole Blood 168 mg/dL (75-99)
[2020-03-21] MEDS ORDERED: HYDROmorphone 1 MG/ML 1 ML SYRINGE IVP ONE ×2 (10:38→10:43)
[2020-03-21] MEDS: INSULIN ASPART (NovoLOG) 100 UNIT/ML VIAL SQ SCH ×7 (11:26→21:33)
[2020-03-21 11:28] LABS: Glucose,Whole Blood 241 mg/dL (75-99)
[2020-03-21] MEDS: SENNOSIDES-DOCUSATE SODIUM 1 EACH TAB PO SCH ×2 (11:28→21:34)
[2020-03-21] MEDS: ENOXAPARIN 40 MG/0.4 ML SYRINGE SQ SCH (11:28)
[2020-03-21] MEDS: ASPIRIN 81 MG PO SCH (11:28)
[2020-03-21] MEDS: FAMOTIDINE 20 MG TAB PO SCH ×2 (11:28→21:23)
[2020-03-21] MEDS: GABAPENTIN 300 MG CAP PO SCH ×2 (11:29→21:23)
[2020-03-21] MEDS: PRASUGREL 10 MG TAB PO SCH (11:29)
[2020-03-21] MEDS: NICOTINE 21MG/24HR PATCH TRANSDERM SCH ×2 (11:29→11:41)
[2020-03-21] MEDS: KETOROLAC 15 MG/ML 1 ML VIAL IVP PRN ×2 (11:51→17:55)
--- NOTE | 2020-03-21 12:00 | OP ---
OPERATIVE REPORT PREOP DIAGNOSIS: Infected callus on the lateral aspect of the right foot extending to the fifth toe with the exposed metatarsal phalangeal joint. POSTOP DIAGNOSIS: Infected callus on the lateral aspect of the right foot extending to the fifth toe with the exposed metatarsal phalangeal joint. OPERATION: Excision of the callus along 5th toe and at the metatarsal phalangeal joint. INDICATION: This patient had infected callus for 2 months. The patient came with infected callus involving the lateral aspect of the foot which was involving also the base of the fifth toe and also this morning noticed redness on the dorsal aspect of the foot. DESCRIPTION OF PROCEDURE: The right foot was prepped and drapes applied in the usual manner under anesthesia. Elliptical incision was made on the lateral aspect of the right foot, extended to the base the dorsum and plantar aspect of the foot and dividing the skin and subcu tissue along with the tendons were divided on the plantar dorsal aspect of the fifth toe. We reached the metatarsophalangeal joint. Using bone cutter, we divided at the metatarsophalangeal joint. Specimen was removed. There was also noted some deep devitalize tissue of the plantar aspect which was also excised. Hemostasis was well controlled. The wound was copiously irrigated with hydrogen peroxide and saline. There was some redness noted on the dorsal aspect of the foot since the wound was infected. We approximated the subcutaneous tissue. We did not close the skin. Aquacel Silver applied to the wound. Dressing applied. Patient transferred to the recovery room in satisfactory condition. MMODL / IJN: [id number] /
--- NOTE | 2020-03-21 13:45 | P.PN ---
Subjective 59-year-old female came in with complaints of severe pain swelling and redness and cellulitis of the right foot. Patient started having ulceration of the right foot on the lateral aspect in the metatarsal area of the right foot. Patient started having pain swelling and redness with yesterday. Patient denied any history of MRSA in the past. Patient the does have history of progressive disease had history of angiograms of the right lower limb in the past. Patient has some disease in superficial femoral artery patient is on dual antiplatelet therapy for that. Patient blood sugars are uncontrolled at home and patient says she is compliant with diet and medications. Although patient admits to smoking still continues to smoke 1 pack per day trying to quit smoking. Patient denied any fever chills patient is found to have elevated lactic acid of around 2.4 with leukocytosis patient was started on Zosyn and vancomycin and subsequently admitted to the hospital. 03/19/2020 Patient is seen and evaluated and follow-up currently being maintained on IV antibiotics in the form of vancomycin and Unasyn for right foot cellulitis. Patient continues to have discomfort although redness and swelling has slightly improved. Infectious disease is following and awaiting consult to Dr. Padilla for debridement of the right foot. Cardiology also consulted and following for peripheral vascular disease she follows with Dr. Lock in the outpatient setting. Recommending continuing current medications. 03/20/2020 Patient still has significant redness pain is bit better significant swelling in the right leg. She'll be continued on IV antibiotics 03/21/2020 Patient had amputation of the fifth metatarsophalangeal joint along with excision of callus Constitutional: Denied any fatigue denied any fever. Cardio vascular: denied any chest pain, palpitations Gastrointestinal denied any nausea vomiting Pulmonary: Denied any shortness of breath cough Neurologic denied any new focal deficits All inpatient medications were reviewed and appropriate changes in these medications as dictated in the interval history and assessment and plan. Objective - Vital Signs Vital signs: Vital Signs Temp 97.5 F L 03/21/20 11:17 Pulse 73 03/21/20 11:47 Resp 17 03/21/20 11:17 BP 139/79 03/21/20 11:47 Pulse Ox 93 L 03/21/20 11:17 Intake & Output 03/20/20 03/21/20 03/21/20 18:59 06:59 18:59 Intake Total 1130 500 Output Total 10 Balance 1130 490 Weight 64.41 kg Intake: IV 500 Oral 1130 Output: Estimated Blood Loss 10 Other: Voiding Method Toilet Toilet Toilet # Voids 2 2 - Exam GENERAL: The patient is alert and oriented x3, not in any acute distress. Well developed, well nourished. HEENT: Pupils are round and equally reacting to light. EOMI. No scleral icterus. No conjunctival pallor. Normocephalic, atraumatic. No pharyngeal erythema. No thyromegaly. CARDIOVASCULAR: S1 and S2 present. No murmurs, rubs, or gallops. PULMONARY: Chest is clear to auscultation, no wheezing or crackles. ABDOMEN: Soft, nontender, nondistended, normoactive bowel sounds. No palpable organomegaly. MUSCULOSKELETAL: No joint swelling or deformity. EXTREMITIES: No cyanosis, clubbing, or pedal edema. NEUROLOGICAL: Gross neurological examination did not reveal any focal deficits. SKIN: Right leg postsurgically packed - Labs CBC & Chem 7: 03/18/20 10:25 03/20/20 05:38 Labs: Abnormal Lab Results - Last 24 Hours (Table) 03/20/20 03/20/20 03/21/20 Range/Units 17:01 20:09 06:52 POC Glucose (mg/dL) 158 H 254 H 160 H (75-99) mg/dL 03/21/20 03/21/20 Range/Units 10:36 11:27 POC Glucose (mg/dL) 168 H 241 H (75-99) mg/dL Microbiology - Last 24 Hours (Table) 03/18/20 10:56 Blood Culture - Preliminary Blood No Growth after 72 hours 03/18/20 10:47 Blood Culture - Preliminary Blood No Growth after 72 hours 03/18/20 17:30 Anaerobic Culture - Preliminary Foot - Right 03/18/20 17:30 Gram Stain - Final Foot - Right Wound Culture - Final Strep agalactiae - (group b) Assessment and Plan Plan: -Diabetic foot ulcer: Patient is status post excision of the callus and amputati on of the metatarsophalangeal joint. Patient is Carol and Unasyn and vancomycin was discontinued as wound cultures are showing strep agalactiae -Peripheral vascular disease: Continue dual antiplatelet therapy and statin. -Diabetic peripheral neuropathy continue gabapentin -Type 2 diabetes mellitus uncontrolled elevated blood sugars will increase of pre-meal insulin as well as long-acting insulin and titrate as needed -Gastroesophageal reflux disease -Depression -Hyperlipidemia -History of celiac disease patient to be in good and fair diet -Nicotine abuse: Counseling was provided -DVT prophylaxis with Lovenox -GI prophylaxis Pepcid Plan: Continue current IV antibiotics in the form of vancomycin and Unasyn. Infectious disease is following. Consult with Dr. Padilla pending for possible wound debridement. Cardiology consulted and following. Patient underwent venous Doppler which was negative. Will repeat a.m. labs.
[2020-03-21 17:44] LABS: Glucose,Whole Blood 250 mg/dL (75-99)
[2020-03-21 21:07] LABS: Glucose,Whole Blood 276 mg/dL (75-99)
[2020-03-21] MEDS: ATORVASTATIN 80 MG TAB PO SCH (21:23)
[2020-03-21] MEDS: DULoxetine HCL 60 MG CAPSULE.DR PO SCH (21:23)
[2020-03-21] MEDS: INSULIN DETEMIR (LEVEMIR) 100 UNIT/ML SYR SQ SCH (21:32)
--- NOTE | 2020-03-21 23:47 | PN ---
PROGRESS NOTE DATE OF SERVICE: 03/21/2020 REASON FOR FOLLOWUP: Right fifth toe diabetic foot infection with infected callus. INTERVAL HISTORY: The patient is currently afebrile. The patient taken to the OR status post right 5th toe amputation. The patient denies having any chest pain. No shortness of breath or cough. No abdominal pain or any worsening pain to the right foot area. PHYSICAL EXAMINATION: Blood pressure 150/76, pulse of 72, temperature 98.4. She is 97% on room air. General description is a middle-aged female lying in bed in no distress. Respiratory system: Unlabored breathing. Clear to auscultation anteriorly. Heart is S1, S2. Regular rate and rhythm. Abdomen soft, no tenderness. Right foot is currently dressed up. No obvious drainage on the dressing. DIAGNOSTIC IMPRESSION AND PLAN: Patient with right foot lateral border/fifth toe base infected callus, concern for underlying osteo in this patient status post amputation with infected part removed. She will not need to be on long-term antibiotic. Covered with Unasyn to continue and monitor clinical course closely. MMODL / IJN: [id number] /
[2020-03-22] MEDS: SODIUM CHLORIDE 0.9% 1,000 ML IV SCH (00:01)
[2020-03-22] MEDS: KETOROLAC 15 MG/ML 1 ML VIAL IVP PRN ×2 (00:03→09:01)
[2020-03-22] MEDS: AMPICILLIN-SULBACTAM 3 GM in SODIUM CHLORIDE 0.9% 100 ML IVPB SCH ×4 (05:10→23:42)
[2020-03-22 07:06] LABS: Glucose,Whole Blood 211 mg/dL (75-99)
[2020-03-22] MEDS: SENNOSIDES-DOCUSATE SODIUM 1 EACH TAB PO SCH ×2 (09:02→21:47)
[2020-03-22] MEDS: ASPIRIN 81 MG PO SCH (09:02)
[2020-03-22] MEDS: GABAPENTIN 300 MG CAP PO SCH ×2 (09:02→21:40)
[2020-03-22] MEDS: FAMOTIDINE 20 MG TAB PO SCH ×2 (09:02→21:40)
[2020-03-22] MEDS: PRASUGREL 10 MG TAB PO SCH (09:02)
[2020-03-22] MEDS: ENOXAPARIN 40 MG/0.4 ML SYRINGE SQ SCH (09:02)
[2020-03-22] MEDS: INSULIN ASPART (NovoLOG) 100 UNIT/ML VIAL SQ SCH ×7 (09:03→21:40)
[2020-03-22 11:42] LABS: Glucose,Whole Blood 202 mg/dL (75-99)
[2020-03-22 11:42] LABS: African American GFR (CKD) >90 (>60 ml/min/1.73 sqM); Anion Gap 6 mmol/L; Blood Urea Nitrogen 13 mg/dL (7-17); Calcium 8.6 mg/dL (8.4-10.2); Carbon Dioxide 29 mmol/L (22-30); Chloride 101 mmol/L (98-107); Glucose 222 mg/dL (74-99); Non-African American GFR(CKD) >90 (>60 ml/min/1.73 sqM); Potassium 3.8 mmol/L (3.5-5.1); Sodium 136 mmol/L (137-145)
[2020-03-22] MEDS: HYDROmorphone 0.5 MG/0.5 ML SYRINGE IVP PRN ×3 (12:13→21:45)
--- NOTE | 2020-03-22 13:03 | P.PN ---
Subjective Progress Note Date: 03/22/20 CHIEF COMPLAINT: PVD HISTORY OF PRESENT ILLNESS: 03/19/2020 This is a 59 year old female with a past medical history significant for coronary artery disease, peripheral vascular disease, diabetes, hyperlipidemia, and nicotine dependence. Patient follows in the office with Dr. Lock. We have been asked to see the patient in consultation for PVD. Patient examined this morning at the bedside. Patient reports a history of wounds to her feet in the past. She presented to the hospital due to a wound on the lateral aspect of her right foot. She reported increased pain to her foot along with swelling and redness. She has been seen by infectious disease and started on antibiotics. She reports improvement in the pain this morning. She denies chest pain or pressure. She denies shortness of breath. Denies dizziness or lightheadedness. Denies fever or chills. Denies cough or congestion. Patient reports having bad balance and a history of falls. She reports neuropathy in her legs as well. 03/22/2020 Patient examined at the bedside. Patient is s/p excision of the callus along the fifth toe and at the metatarsal phalangeal joint by Dr. Padilla. Patient denies chest pain or pressure. Denies shortness of breath. She denies pain to right lower extremity. Vital signs stable. PHYSICAL EXAM: VITAL SIGNS: Reviewed. GENERAL: Well-developed in no acute distress. HEENT: Head is normocephalic. Pupils are equal, round. Sclerae anicteric. Mucous membranes of the mouth are moist. Neck supple. No JVD or thyromegaly. Bilateral carotid bruit noted. LUNGS: Respirations even and unlabored. Lungs essentially clear to auscultation bilaterally. HEART: Regular rate and rhythm. S1 and S2 heard. Systolic murmur noted. ABDOMEN: Soft. Nondistended. Nontender. EXTREMITIES: No clubbing or cyanosis. Peripheral pulses intact. No lower extremity edema. Dressing noted to right lower extremity. NEUROLOGIC: Awake and alert. Oriented x 3. ASSESSMENT: Right diabetic foot ulcer Coronary artery disease with previous PCI to RCA, LAD, and circumflex Peripheral vascular disease with previous stenting of right iliac artery Hyperlipidemia Diabetes mellitus Peripheral neuropathy Nicotine dependence PLAN: Continue current cardiac medications Infectious disease and vascular surgery following Case discussed with Dr. Lock who states he spoke with Dr. Padilla. No need for angiogram at this time per Dr. Lock. Patient currently stable from a cardiac perspective We will follow on as needed basis. Please call with questions or concerns. Nurse practitioner note has been reviewed by physician. Signing provider agrees with the documented findings, assessment, and plan of care. Objective - Vital Signs Vital signs: Vital Signs Temp 98.0 F 03/22/20 11:27 Pulse 75 03/22/20 11:27 Resp 18 03/22/20 11:27 BP 141/78 03/22/20 11:27 Pulse Ox 97 03/22/20 11:27 Intake & Output 03/21/20 03/22/20 03/22/20 18:59 06:59 18:59 Intake Total 740 Output Total 10 Balance 730 Weight 64.41 kg Intake: IV 500 Oral 240 Output: Estimated Blood Loss 10 Other: Voiding Method Toilet Toilet Toilet # Voids 2 # Bowel Movements 0 - Labs CBC & Chem 7: 03/18/20 10:25 03/22/20 10:45 Labs: Abnormal Lab Results - Last 24 Hours (Table) 03/21/20 03/21/20 03/22/20 Range/Units 17:42 21:06 06:54 Sodium (137-145) mmol/L Creatinine (0.52-1.04) mg/dL Glucose (74-99) mg/dL POC Glucose (mg/dL) 250 H 276 H 211 H (75-99) mg/dL 03/22/20 03/22/20 Range/Units 10:45 11:31 Sodium 136 L (137-145) mmol/L Creatinine 0.39 L (0.52-1.04) mg/dL Glucose 222 H (74-99) mg/dL POC Glucose (mg/dL) 202 H (75-99) mg/dL Microbiology - Last 24 Hours (Table) 03/18/20 10:47 Blood Culture - Preliminary Blood No Growth after 96 hours 03/21/20 10:20 Gram Stain - Preliminary Toe - Right Fifth Tissue Culture - Preliminary 03/21/20 10:20 Anaerobic Culture - Preliminary Toe - Right Fifth 03/18/20 10:56 Blood Culture - Preliminary Blood No Growth after 72 hours
--- NOTE | 2020-03-22 15:27 | P.PN ---
Subjective Progress Note Date: 03/22/20 Patient is a very pleasant 59-year-old female came in with complaints of severe pain swelling and redness and cellulitis of the right foot. Patient started having ulceration of the right foot on the lateral aspect in the metatarsal area of the right foot. Patient started having pain swelling and redness with yesterday. Patient denied any history of MRSA in the past. Patient the does have history of progressive disease had history of angiograms of the right lower limb in the past. Patient has some disease in superficial femoral artery patient is on dual antiplatelet therapy for that. Patient blood sugars are uncontrolled at home and patient says she is compliant with diet and medications. Although patient admits to smoking still continues to smoke 1 pack per day trying to quit smoking. Patient denied any fever chills patient is found to have elevated lactic acid of around 2.4 with leukocytosis patient was started on Zosyn and vancomycin and subsequently admitted to the hospital. 03/19/2020 Patient is seen and evaluated and follow-up currently being maintained on IV antibiotics in the form of vancomycin and Zosyn for right foot cellulitis. Patient continues to have discomfort although redness and swelling has slightly improved. Infectious disease is following and awaiting consult to Dr. Padilla for debridement of the right foot. Cardiology also consulted and following for peripheral vascular disease she follows with Dr. Lock in the outpatient setting. Recommending continuing current medications. 03/20/2020 Patient still has significant redness pain is bit better significant swelling in the right leg. She'll be continued on IV antibiotics 03/21/2020 Patient had amputation of the fifth metatarsophalangeal joint along with excision of callus 03/22/2020 Patient is seen in follow-up this morning states her discomfort of the right foot has improved. Patient is maintained on IV antibiotics in the form of Unasyn and will continue. Currently awaiting wound cultures from fifth toe amputation. IV fluids have been discontinued as patient's sodium is 136, potassium is 3.8, current creatinine is 0.39. We'll continue with sliding scale, pre-meal insulin along with long-acting as blood sugars are elevated. Effient has been resumed patient is maintained on aspirin and Lovenox and will continue. Instructed the patient to increase activity as tolerated and continue with nonweightbearing of the right foot. Infectious disease and vascular surgery following. Review of systems: Constitutional: No reports of fatigue, fever, or chills Cardiovascular: No reports of chest pain or palpitations Respiratory: No reports of shortness of breath or cough GI: No reports of nausea, vomiting, or diarrhea : No reports of dysuria or retention Neurovascular: No reports of weakness or numbness All medications have been reviewed Objective - Vital Signs Vital signs: Vital Signs Temp 98.0 F 03/22/20 11:27 Pulse 75 03/22/20 11:27 Resp 18 03/22/20 11:27 BP 141/78 03/22/20 11:27 Pulse Ox 97 03/22/20 11:27 Intake & Output 03/21/20 03/22/20 03/22/20 18:59 06:59 18:59 Intake Total 740 Output Total 10 Balance 730 Weight 64.41 kg Intake: IV 500 Oral 240 Output: Estimated Blood Loss 10 Other: Voiding Method Toilet Toilet Toilet # Voids 2 # Bowel Movements 0 - Exam GENERAL: The patient is alert and oriented x3, not in any acute distress. Well developed, well nourished. HEENT: Pupils are round and equally reacting to light. EOMI. No scleral icterus. No conjunctival pallor. Normocephalic, atraumatic. No pharyngeal erythema. No thyromegaly. CARDIOVASCULAR: S1 and S2 present. No murmurs, rubs, or gallops. PULMONARY: Chest is clear to auscultation, no wheezing or crackles. ABDOMEN: Soft, nontender, nondistended, normoactive bowel sounds. No palpable organomegaly. MUSCULOSKELETAL: No joint swelling or deformity. EXTREMITIES: No cyanosis, clubbing, or pedal edema. NEUROLOGICAL: Gross neurological examination did not reveal any focal deficits. SKIN: Right foot surgical dressing is dry and intact with no bleeding noted and elevated on a pillow - Labs CBC & Chem 7: 03/18/20 10:25 03/22/20 10:45 Labs: Abnormal Lab Results - Last 24 Hours (Table) 03/21/20 03/21/20 03/22/20 Range/Units 17:42 21:06 06:54 Sodium (137-145) mmol/L Creatinine (0.52-1.04) mg/dL Glucose (74-99) mg/dL POC Glucose (mg/dL) 250 H 276 H 211 H (75-99) mg/dL 03/22/20 03/22/20 Range/Units 10:45 11:31 Sodium 136 L (137-145) mmol/L Creatinine 0.39 L (0.52-1.04) mg/dL Glucose 222 H (74-99) mg/dL POC Glucose (mg/dL) 202 H (75-99) mg/dL Microbiology - Last 24 Hours (Table) 03/18/20 10:56 Blood Culture - Preliminary Blood No Growth after 96 hours 03/18/20 10:47 Blood Culture - Preliminary Blood No Growth after 96 hours 03/21/20 10:20 Gram Stain - Preliminary Toe - Right Fifth Tissue Culture - Preliminary 03/21/20 10:20 Anaerobic Culture - Preliminary Toe - Right Fifth Assessment and Plan Assessment: -Diabetic foot ulcer: Patient is status post excision of the callus and amputation of the metatarsophalangeal joint. Patient is maintained on IV Unasyn, infectious disease following -Peripheral vascular disease: Continue dual antiplatelet therapy and statin. -Diabetic peripheral neuropathy continue gabapentin -Type 2 diabetes mellitus uncontrolled elevated blood sugars will continue with sliding scale, pre-meal insulin as well as long-acting insulin and titrate as needed -Gastroesophageal reflux disease -Depression -Hyperlipidemia -History of celiac disease patient to be in good and fair diet -Nicotine abuse: Counseling was provided -DVT prophylaxis with Lovenox -GI prophylaxis Pepcid Plan: Continue current IV antibiotics in the form of Unasyn. Infectious disease is following. Awaiting wound culture finalization to determine antibiotic therapy upon discharge. Dr. Padilla following as well. Continue to monitor blood sugars before meals and at bedtime. IV fluids discontinued and encouraged increased activity as tolerated.
[2020-03-22 17:01] LABS: Glucose,Whole Blood 129 mg/dL (75-99)
--- NOTE | 2020-03-22 18:01 | PN ---
PROGRESS NOTE This 59-year-old patient had a ray amputation of the 5th toe. We kept the wound open. Today we have changed the dressing. The base of the wound is clean. We will continue with Aquacel and IV antibiotic. Recommend nonweightbearing. MMODL / IJN: [id number] /
[2020-03-22 20:44] LABS: Glucose,Whole Blood 305 mg/dL (75-99)
[2020-03-22] MEDS: INSULIN DETEMIR (LEVEMIR) 100 UNIT/ML SYR SQ SCH (21:40)
[2020-03-22] MEDS: ATORVASTATIN 80 MG TAB PO SCH (21:40)
[2020-03-22] MEDS: DULoxetine HCL 60 MG CAPSULE.DR PO SCH (21:40)
[2020-03-22] MEDS: MELATONIN 5 MG TABLET PO PRN (21:45)
--- NOTE | 2020-03-22 22:21 | PN ---
PROGRESS NOTE DATE OF SERVICE: 03/22/2020 REASON FOR FOLLOWUP: Right diabetic foot infection. INTERVAL HISTORY: The patient is currently afebrile. The patient is breathing comfortably. Denies having any chest pain. No shortness or breath. No cough. No abdominal pain. No diarrhea. PHYSICAL EXAMINATION: Blood pressure 126/71 with a pulse of 56, temperature 98.4. She is 98% on room air. General description: The patient is a middle-aged female lying in bed in no distress. Respiratory system: Unlabored breathing. Clear to auscultation anteriorly. Heart S1, S2. Regular rate and rhythm. Abdomen is soft. No tenderness. EXTREMITIES: Right foot is currently dressed. No obvious drainage on the dressing. LABS: BUN of 13, creatinine 0.39. DIAGNOSTIC IMPRESSION AND PLAN: Patient with right diabetic foot infection with infected callus, status post right 5th toe amputation with infected part removed, she may not need long-term IV antibiotic therapy. However may request a short course of IV depending upon the of inflammation post surgery. Continue supportive care. MMODL / IJN: [id number] /
[2020-03-23] MEDS: AMPICILLIN-SULBACTAM 3 GM in SODIUM CHLORIDE 0.9% 100 ML IVPB SCH ×2 (05:55→12:04)
[2020-03-23] MEDS: KETOROLAC 15 MG/ML 1 ML VIAL IVP PRN ×2 (05:55→12:01)
[2020-03-23 07:15] LABS: Glucose,Whole Blood 120 mg/dL (75-99)
[2020-03-23] MEDS: INSULIN ASPART (NovoLOG) 100 UNIT/ML VIAL SQ SCH ×4 (08:06→13:39)
[2020-03-23] MEDS: ENOXAPARIN 40 MG/0.4 ML SYRINGE SQ SCH (08:38)
[2020-03-23] MEDS: ASPIRIN 81 MG PO SCH (08:39)
[2020-03-23] MEDS: FAMOTIDINE 20 MG TAB PO SCH (08:39)
[2020-03-23] MEDS: SENNOSIDES-DOCUSATE SODIUM 1 EACH TAB PO SCH (08:39)
[2020-03-23] MEDS: GABAPENTIN 300 MG CAP PO SCH (08:39)
[2020-03-23] MEDS: PRASUGREL 10 MG TAB PO SCH (08:40)
[2020-03-23] MEDS: NICOTINE 21MG/24HR PATCH TRANSDERM SCH (08:40)
[2020-03-23] MEDS: HYDROmorphone 0.5 MG/0.5 ML SYRINGE IVP PRN ×2 (08:48→12:02)
[2020-03-23 11:12] LABS: Glucose,Whole Blood 122 mg/dL (75-99)
[2020-03-23 13:09] VITALS: PULSE 68
[2020-03-23 13:13] VITALS: BP 126/73; RESP 17; TEMP 98
--- NOTE | 2020-03-23 13:29 | P.PN ---
Subjective Progress Note Date: 03/23/20 HISTORY OF PRESENT ILLNESS This is a 59-year-old female. She has been treated for right diabetic foot infection started with infected callus status post right fifth toe amputation with infected port removed. She is currently on Unasyn with plan for Rocephin for 2 week course as an outpatient. Midline will be ordered for today. Patient states that she has some pain at the wound site. She has a little cough. No chest pain, no abdominal pain, no diarrhea. Wound cultures positive for strep. PHYSICAL EXAMINATION Gen: This is a 59-year-old female. Patient is resting in bed and appears to be comfortable in no acute distress. VS: afebrile, HR 68, BP 126/73, 98% on room air. HEENT: Head is atraumatic, normocephalic. Pupils equal, round. Sclerae is anicteric. NECK: Supple. No JVD. No lymphadenopathy. No thyromegaly. LUNGS: Clear to auscultation. No wheezes or rhonchi. No intercostal retractions. HEART: Regular rate and rhythm. No murmur. ABDOMEN: Soft. Bowel sounds are present. No masses. No tenderness. EXTREMITIES: No pedal edema. No calf tenderness. Dressing in place to the right foot, no drainage. NEUROLOGICAL: Patient is awake, alert and oriented x3. Cranial nerves 2 through 12 are grossly intact. ASSESSMENT Diabetic foot infection status post right fifth toe amputation PLAN Unasyn will be discontinued Start Rocephin with plan for two-week course as an outpatient Midline ordered The above dictated assessment and findings were discussed with Dr. Patricio. The impression and plan of care have been directed as dictated. Michelle Longoria nurse practitioner acting as scribe for Dr. Patricio. Objective - Vital Signs Vital signs: Vital Signs Temp 98.0 F 03/23/20 04:48 Pulse 58 L 03/23/20 04:48 Resp 16 03/23/20 04:48 BP 118/68 03/23/20 04:48 Pulse Ox 98 03/23/20 04:48 Intake & Output 03/22/20 03/23/20 03/23/20 18:59 06:59 18:59 Intake Total 1780 200 Balance 1780 200 Intake: Intake, IV Titration 600 200 Amount Ampicillin-Sulbactam 3 gm 200 200 In Sodium Chloride 0.9% 100 ml @ 200 mls/hr IVPB Q6HR [facility] Rx#:[id number] Sodium Chloride 0.9% 1, 400 000 ml @ 75 mls/hr IV . [id number] [facility] Rx#:[id number] Oral 1180 Other: Voiding Method Toilet Toilet Toilet # Voids 4 1 # Bowel Movements 1 - Labs CBC & Chem 7: 03/18/20 10:25 03/22/20 10:45 Labs: Abnormal Lab Results - Last 24 Hours (Table) 03/22/20 03/22/20 03/23/20 Range/Units 16:55 20:37 07:05 POC Glucose (mg/dL) 129 H 305 H 120 H (75-99) mg/dL 03/23/20 Range/Units 11:07 POC Glucose (mg/dL) 122 H (75-99) mg/dL Microbiology - Last 24 Hours (Table) 03/18/20 10:47 Blood Culture - Preliminary Blood No Growth after 120 hours 03/21/20 10:20 Gram Stain - Final Toe - Right Fifth Tissue Culture - Final Strep agalactiae - (group b) 03/18/20 17:30 Anaerobic Culture - Final Foot - Right 03/18/20 10:56 Blood Culture - Preliminary Blood No Growth after 96 hours
[2020-03-23] MEDS ORDERED: INFLUENZA VACCINE (6 MOS+) 60 MCG/0.5 ML SYRINGE IM ONE (14:05)
--- NOTE | 2020-03-23 14:36 | P.DS ---
Providers Date of admission: 03/18/20 12:03 Expected date of discharge: 03/23/20 Attending physician: Oc Esparza Consults: 03/18/20 13:56 Consult Physician Routine Consulting Provider: Jeanie Patricio Consult Reason/Comments: Diabetic foot infecton Do you want consulting provider notified?: Yes 03/18/20 17:27 Consult Physician Routine Consulting Provider: Warren Padilla Consult Reason/Comments: right foot infected callus for I&D Do you want consulting provider notified?: Yes Primary care physician: Fabiola Land Hospital Course: Final diagnosis -Diabetic foot ulcer, status post excision of the callus and amputation of the metatarsophalangeal joint -Peripheral vascular disease -Diabetic peripheral neuropathy -Type 2 diabetes mellitus uncontrolled elevated blood sugars -Gastroesophageal reflux disease -Depression -Hyperlipidemia -History of celiac disease -Nicotine abuse: Counseling was provided -DVT prophylaxis -GI prophylaxis -Full code Discharge disposition Patient is being discharged in a stable condition with guarded prognosis to home. Patient will follow-up with Dr. Land in the outpatient setting upon discharge. Patient will also follow-up with Dr. Padilla vascular surgery in 1-2 weeks. Patient will continue with IV antibiotics via midline in the form of Rocephin 2 g daily for the next 2 weeks per infectious disease recommendations. Total time taken is greater than 35 minutes. Hospital course This is a 59-year-old female who was recently admitted with severe pain along with swelling and redness and cellulitis of the right foot and was being closely monitored. She was seen and evaluated by infectious disease along with vascular surgery and underwent right fifth toe metatarsal phalangeal joint amputation with excision of a callus with Dr. Padilla. Patient will be following up outpatient in 1-2 weeks. Patient's wound cultures finalized showing strep be and will continue on IV antibiotics via midline in the form of Rocephin 2 g daily for the next 2 weeks. Continue with home care in the outpatient setting and also instructed to follow-up with her primary care provider Dr. Land. Adjustments to insulins have been made in patient instructed to continue to monitor Accu-Cheks before meals and at bedtime and keep a diary for primary care follow-up. Currently no reports of chest pain, shortness of breath, or palpita tions. Patient is afebrile. No reports of nausea or vomiting and patient is tolerating diet. Patient will be discharged home today. On exam vital signs are stable. Temp is 98.0F, pulse is 68, respirations are 17, blood pressure is 126/73, oxygen saturation is 98% on room air. Cardio S1, S2 are muffled. Respiratory system shows diminished breath sounds at the bases with no wheezing or rhonchi noted. Abdomen is soft and nontender. Nervous system shows no focal deficits. Please refer to medication reconciliation sheet for a list of medications. Patient Condition at Discharge: Stable Plan - Discharge Summary Discharge Rx Participant: No New Discharge Prescriptions: Continue Gabapentin [Neurontin] 300 mg PO DAILY DULoxetine HCL [Cymbalta] 60 mg PO HS Atorvastatin [Lipitor] 80 mg PO HS Nitroglycerin Sl Tabs [Nitrostat] 0.4 mg SUBLINGUAL Q5M PRN #50 tab PRN Reason: Chest Pain Gabapentin [Neurontin] 900 mg PO HS Prasugrel [Effient] 10 mg PO DAILY Aspirin 81 mg PO DAILY Omeprazole 20 mg PO DAILY PRN PRN Reason: gerd INSULIN ASPART (NovoLOG) [NovoLOG (formulary)] See Protocol SQ ACHS HYDROcodone/APAP 5-325MG [[place] 5-325] 1 tab PO Q8HR PRN #12 tab PRN Reason: Pain Changed Insulin Glargine [Lantus] 60 unit SQ HS #0 INSULIN ASPART (NovoLOG) [NovoLOG (formulary)] 15 unit SQ AC-TID #0 vial Discharge Medication List Gabapentin [Neurontin] 300 mg PO DAILY 03/18/14 [History] Atorvastatin [Lipitor] 80 mg PO HS 06/26/16 [History] DULoxetine HCL [Cymbalta] 60 mg PO HS 06/26/16 [History] Nitroglycerin Sl Tabs [Nitrostat] 0.4 mg SUBLINGUAL Q5M PRN #50 tab 07/02/16 [Rx] Gabapentin [Neurontin] 900 mg PO HS 05/15/17 [History] Aspirin 81 mg PO DAILY 10/08/17 [History] Prasugrel [Effient] 10 mg PO DAILY 10/08/17 [History] Omeprazole 20 mg PO DAILY PRN 07/01/19 [History] INSULIN ASPART (NovoLOG) [NovoLOG (formulary)] See Protocol SQ ACHS 08/04/19 [History] HYDROcodone/APAP 5-325MG [[place] 5-325] 1 tab PO Q8HR PRN #12 tab 03/23/20 [Rx] INSULIN ASPART (NovoLOG) [NovoLOG (formulary)] 15 unit SQ AC-TID #0 vial 03/23/20 [Rx] Insulin Glargine [Lantus] 60 unit SQ HS #0 03/23/20 [Rx] Follow up Appointment(s)/Referral(s): [facility], [NON-STAFF] - 1 Week [facility]Infusion [NON-STAFF] - 1 Week Fabiola Land MD [Primary Care Provider] - 1-2 days Patient Instructions/Handouts: Hydrocodone/Acetaminophen (By mouth), Type 2 Diabetes Management for Adults (DC), Toe Amputation (DC) Activity/Diet/Wound Care/Special Instructions: Activity Limited until follow-up Follow-up with primary care provider upon discharge Follow-up with vascular surgery outpatient Follow-up with wound care center outpatient Continue with IV antibiotics per infectious disease Continue with home care in the outpatient setting Continue to monitor blood sugar before meals and at bedtime and keep a diary and continue sliding scale along with long-acting Continue heart healthy consistent carb diet Discharge Disposition: HOME WITH HOME HEALTH SERVICES
--- NOTE | 2020-03-23 14:51 | P.PCN ---
Description of Procedure: 59 old white female patient had a ray amputation of the fifth toe today we have changed her dressing wound is granulating continue with Aquacel silver if patient goes home we will follow up Sunday in the wound clinic
[2020-03-23] MEDS: HYDROcodone/APAP 5-325MG 1 EACH TAB PO PRN (16:03)
== END 2020-03-23 17:36 | disposition home health service (06) | DRG 617 ==
LOC: EC 09:32 → 5NMEDONC 12:03
PROVIDERS: ADMIT Internal Medicine; ATTEND Internal Medicine
PROC: 0Y6X0Z0 Detachment at Right 5th Toe, Complete, Open Approach (ICD-10-PCS; principal; 2020-03-21 09:00)
PROC: 3E02340 Introduction of Influenza Vaccine into Muscle, Percutaneous Approach (ICD-10-PCS; 2020-03-23 12:00)
DX: E11.621 Type 2 diabetes mellitus with foot ulcer (principal); L03.115 Cellulitis of right lower limb; E87.2 Acidosis; I69.351 Hemiplegia and hemiparesis following cerebral infarction affecting right dominant side; E11.51 Type 2 diabetes mellitus with diabetic peripheral angiopathy without gangrene; E11.42 Type 2 diabetes mellitus with diabetic polyneuropathy; E11.65 Type 2 diabetes mellitus with hyperglycemia; L97.519 Non-pressure chronic ulcer of other part of right foot with unspecified severity; E11.628 Type 2 diabetes mellitus with other skin complications; Z79.4 Long term (current) use of insulin; M85.80 Other specified disorders of bone density and structure, unspecified site; I99.8 Other disorder of circulatory system; D72.829 Elevated white blood cell count, unspecified; S90.921A Unspecified superficial injury of right foot, initial encounter; K90.0 Celiac disease; I25.10 Atherosclerotic heart disease of native coronary artery without angina pectoris; Z20.822 Contact with and (suspected) exposure to COVID-19; I10 Essential (primary) hypertension; K44.9 Diaphragmatic hernia without obstruction or gangrene; K21.9 Gastro-esophageal reflux disease without esophagitis; E78.5 Hyperlipidemia, unspecified; G89.29 Other chronic pain; M54.5 Low back pain; F32.9 Major depressive disorder, single episode, unspecified; F41.9 Anxiety disorder, unspecified; F17.210 Nicotine dependence, cigarettes, uncomplicated; Z23 Encounter for immunization; Z71.6 Tobacco abuse counseling; Z91.81 History of falling; Z98.1 Arthrodesis status; Z90.49 Acquired absence of other specified parts of digestive tract; Z91.02 Food additives allergy status; Z79.891 Long term (current) use of opiate analgesic; Z79.02 Long term (current) use of antithrombotics/antiplatelets; Z79.82 Long term (current) use of aspirin; Z79.899 Other long term (current) drug therapy; Z86.19 Personal history of other infectious and parasitic diseases; Z87.828 Personal history of other (healed) physical injury and trauma; Z87.440 Personal history of urinary (tract) infections; Z87.11 Personal history of peptic ulcer disease; Z82.49 Family history of ischemic heart disease and other diseases of the circulatory system; Z84.89 Family history of other specified conditions; Z80.8 Family history of malignant neoplasm of other organs or systems; Z80.0 Family history of malignant neoplasm of digestive organs; Z95.1 Presence of aortocoronary bypass graft; Z95.5 Presence of coronary angioplasty implant and graft
CPT/HCPCS: 36410; 36415; 76937; 80048; 80053; 80202; 83605; 85025; 85652; 86140; 87040; 87070; 87075; 87205; 87635; 90686; 93005; 96361; 96365; 96366; 96375; 99285

== ENCOUNTER → 2020-06-21 | Outpatient (CLI) | payer MEDICARE ==
[2020-06-21 15:46] LABS: HCT 45.7 % (34.0-46.0); HGB 16.3 gm/dL (11.4-16.0); MCHC 35.6 g/dL (31.0-37.0); MCV 84.4 fL (80.0-100.0); Mean Platelet Volume 7.5; Platelet Count 185 k/uL (150-450); RBC 5.42 m/uL (3.80-5.40); RDW 13.7 % (11.5-15.5); WBC 8.4 k/uL (3.8-10.6)
[2020-06-21 15:54] LABS: African American GFR (CKD) >90 (>60 ml/min/1.73 sqM); Anion Gap 11 mmol/L; Blood Urea Nitrogen 9 mg/dL (7-17); Carbon Dioxide 28 mmol/L (22-30); Chloride 98 mmol/L (98-107); Non-African American GFR(CKD) >90 (>60 ml/min/1.73 sqM); Potassium 4.1 mmol/L (3.5-5.1); Sodium 137 mmol/L (137-145)
== END | disposition home or self-care (01) ==
LOC: LABPAT 15:32
PROVIDERS: ATTEND Internal Medicine Clinical Cardiac Electrophysiology
DX: Z01.812 Encounter for preprocedural laboratory examination (principal); I73.9 Peripheral vascular disease, unspecified
CPT/HCPCS: 36415; 80051; 82565; 84520; 85027

== ENCOUNTER 2020-06-23 06:15 | Day surgery (SDC) | payer MEDICARE ==
[2020-06-21 11:04] VITALS: BMI 21.9
[2020-06-23] MEDS ORDERED: INSULIN ASPART (NovoLOG) 100 UNIT/ML VIAL SQ ONE (06:45)
[2020-06-23] MEDS ORDERED: SODIUM CHLORIDE 0.9% 1,000 ML IV ONE (06:49)
[2020-06-23 06:54] VITALS: TEMP 98.3
[2020-06-23 06:56] LABS: Glucose,Whole Blood 239 mg/dL (75-99)
[2020-06-23] MEDS ORDERED: MIDAZOLAM 2 MG/2 ML VIAL IV ONE (07:50)
[2020-06-23] MEDS ORDERED: LIDOCAINE 1% INJ 10MG/ML (20 ML MDV) SQ ONE (07:52)
[2020-06-23] MEDS ORDERED: IOPAMIDOL-250 100ML BTL INTRAARTER ONE (08:03)
[2020-06-23] MEDS ORDERED: SODIUM CHLORIDE 0.9% 1,000 ML IV SCH (08:15)
[2020-06-23] MEDS ORDERED: HYDROcodone/APAP 5-325MG 1 EACH TAB ONE (11:23)
[2020-06-23 11:30] VITALS: BP 125/80; PULSE 76; RESP 18
--- NOTE | 2020-06-23 16:13 | AN ---
ANGIOGRAPHY REPORT DATE OF SERVICE: 06/23/2020 PERFORMING PHYSICIAN: Vipul Lock M.D. PROCEDURES PERFORMED: 1. Abdominal aortogram. 2. Bilateral lower extremity runoff. 3. Ultrasound-guided access of the right common femoral artery. COMPLICATIONS: None. LEVEL OF SEDATION: Moderate, with sedation length of 15 minutes. PROCEDURE DESCRIPTION: After obtaining informed consent, the patient was brought to the cardiac agricultural labor camp manager. The right common femoral artery was cannulated using micropuncture technique. The micropuncture wire passed easily. Then I placed a 5-Maltese sheath. An abdominal aortogram and bilateral lower extremity runoff were performed using 5- Maltese pigtail catheter which was initially placed at the level of the renal arteries. Then it was pulled into above the bifurcation of the aorta. The procedure was completed without any complication. SELECTIVE PERIPHERAL ANGIOGRAM: 1. The aorta appeared to be angiographically normal. 2. Common iliac arteries. Both appear to have mild disease only. 3. Internal iliac arteries. Both are patent. 4. External iliac arteries. The right external iliac artery is stented and the stent is patent. The left external iliac artery appeared to be normal. 5. Common femoral arteries. Both appeared to be angiographically normal. 6. Profundae. Both are patent. 7. SFA. The right SFA appeared to be occluded distally and the left SFA appeared to have intermediate disease only. 8. Popliteals. Right popliteal appeared to be normal. The left popliteal appeared to have intermediate to severe disease distally. 9. Below the knee. There is 3-vessel runoff below the knee bilaterally with severe disease involving the TBT on the right side and the AT on the left side. CONCLUSION: 1. Patent stent in the right external iliac artery. 2. Occluded right SFA. 3. Severe disease involving the tibioperoneal trunk on the right and severe disease involving the left anterior tibial artery. POST-PROCEDURE MANAGEMENT: 1. STENCIL CUTTER of the right SFA. 2. Follow up with the patient. MMODL / IJN: [id number] /
--- NOTE | 2020-06-25 06:03 | IR ---
EXAMINATION TYPE: IR angio abdominal w runoff DATE OF EXAM: 06/23/2020 CLINICAL HISTORY: Peripheral vascular disease. TECHNIQUE: Fluoroscopy. COMPARISON: None. FINDINGS: Fluoroscopic guidance was provided during abdominal angiogram with runoff procedure perfor med by Dr. Lock. A total of 108 seconds of fluoroscopic time was utilized during the procedure and 4 1 spot images was acquired. Please refer to procedure note for further details. IMPRESSION: As Above.
--- NOTE | 2020-06-28 06:58 | CDI ---
Outpatient Documentation Clarification Form Date: 06/28/20 CDS/[facility] [place] Name: Lety Owen Patient Name: Mary Jo Caldwell Admit Date: 06/23/20 Discharge Date: 06/23/20 ATTENTION: The [facility] Coding Staff appreciate your assistance in clarifying documentation. Please respond to the clarification below the line at the bottom and electronically sigh. The [facility] Coding Staff will review the response and follow up if needed. Please Note: Queries are made part of the Legal Health Record. If you have any questions, please contact the Business Transformation Consultant. Dear Dr. Lock, Please provide clarification as to the cause of the occlusive PAD. PAD/PVD is considered unspecified. Greatest specificity is require for medical necessity support. Is underlying cause of the Occlusive PAD one of the following? Arteriosclerotic disease of the arteries Arteritis Necrotic Due to embolism/thrombosis Other - Please specify below Thank you for your kind consideration, MTDD
== END 2020-06-23 13:01 | disposition home or self-care (01) ==
LOC: CATHCVL 06:15
PROVIDERS: ATTEND Internal Medicine Interventional Cardiology
DX: E11.51 Type 2 diabetes mellitus with diabetic peripheral angiopathy without gangrene (principal); I70.212 Atherosclerosis of native arteries of extremities with intermittent claudication, left leg; I25.10 Atherosclerotic heart disease of native coronary artery without angina pectoris; I10 Essential (primary) hypertension; E78.5 Hyperlipidemia, unspecified; F17.210 Nicotine dependence, cigarettes, uncomplicated; Z95.820 Peripheral vascular angioplasty status with implants and grafts; F31.9 Bipolar disorder, unspecified; Z95.5 Presence of coronary angioplasty implant and graft; Z86.73 Personal history of transient ischemic attack (TIA), and cerebral infarction without residual deficits; Z79.82 Long term (current) use of aspirin; Z79.4 Long term (current) use of insulin; Z79.899 Other long term (current) drug therapy
CPT/HCPCS: 36200; 75625; 75716; 87635; C1769 ×5; C1894; J2250; J2001; Q9966

== ENCOUNTER → 2020-07-27 | Outpatient (CLI) | payer MEDICARE ==
[2020-07-27 14:55] LABS: HCT 48.2 % (34.0-46.0); HGB 16.1 gm/dL (11.4-16.0); MCH 28.4 pg (25.0-35.0); MCHC 33.3 g/dL (31.0-37.0); MCV 85.3 fL (80.0-100.0); Mean Platelet Volume 7.3; Platelet Count 188 k/uL (150-450); RBC 5.66 m/uL (3.80-5.40); RDW 14.5 % (11.5-15.5)
[2020-07-27 15:06] LABS: African American GFR (CKD) >90 (>60 ml/min/1.73 sqM); Anion Gap 10 mmol/L; Blood Urea Nitrogen 9 mg/dL (7-17); Carbon Dioxide 28 mmol/L (22-30); Chloride 98 mmol/L (98-107); Non-African American GFR(CKD) >90 (>60 ml/min/1.73 sqM); Potassium 4.7 mmol/L (3.5-5.1); Sodium 136 mmol/L (137-145)
== END | disposition home or self-care (01) ==
LOC: LABPAT 14:08
PROVIDERS: ATTEND Internal Medicine Interventional Cardiology
DX: Z01.812 Encounter for preprocedural laboratory examination (principal); I73.9 Peripheral vascular disease, unspecified
CPT/HCPCS: 80051; 82565; 84520; 85027

== ENCOUNTER 2020-07-28 06:35 | Day surgery (SDC) | payer MEDICARE ==
[2020-07-27 10:56] VITALS: BMI 21.1
[2020-07-28] MEDS ORDERED: SODIUM CHLORIDE 0.9% 1,000 ML IV ONE (06:48)
[2020-07-28] MEDS ORDERED: ASPIRIN 325 MG TAB PO PRN (07:00)
[2020-07-28 07:05] LABS: Glucose,Whole Blood 325 mg/dL (75-99)
[2020-07-28] MEDS ORDERED: INSULIN ASPART (NovoLOG) 100 UNIT/ML VIAL SQ ONE (07:05)
[2020-07-28] MEDS: INSULIN ASPART (NovoLOG) 100 UNIT/ML VIAL SQ SCH ×6 (07:20→20:35)
[2020-07-28] MEDS ORDERED: MIDAZOLAM 2 MG/2 ML VIAL IV ONE ×2 (07:58→08:39)
[2020-07-28] MEDS ORDERED: LIDOCAINE 1% INJ 10MG/ML (20 ML MDV) SQ ONE (07:59)
[2020-07-28] MEDS ORDERED: HEPARIN SODIUM 1,000 UN/ML (10ML VL) IV ONE ×2 (08:02→08:07)
[2020-07-28] MEDS: fentaNYL (PF) 50 MCG/ML 2 ML AMP IV ONE ×2 (08:07→08:23)
[2020-07-28] MEDS: NITROGLYCERIN 1000MCG/10ML SYRINGE INTRAARTER ONE ×3 (08:49→09:21)
[2020-07-28] MEDS: niCARdipine Syringe (1,000 mcg/10 mL) INTRAARTER ONE ×2 (08:49→09:22)
[2020-07-28] MEDS ORDERED: HYDROmorphone 1 MG/ML 1 ML SYRINGE IVP ONE (09:12)
[2020-07-28] MEDS ORDERED: IOPAMIDOL-370 125ML BTL INJ ONE (09:27)
[2020-07-28] MEDS ORDERED: NITROGLYCERIN SL TABS 0.4 MG TAB SUBLINGUAL PRN (09:34)
[2020-07-28] MEDS ORDERED: PANTOPRAZOLE 40 MG TABLET PO PRN (09:34)
[2020-07-28] MEDS ORDERED: ONDANSETRON 4 MG/2 ML VIAL IVP ONE (09:39)
[2020-07-28] MEDS ORDERED: SODIUM CHLORIDE 0.9% 1,000 ML in EMPTY BAG 1 BAG IV SCH (09:45)
--- NOTE | 2020-07-28 09:55 | IR ---
EXAMINATION TYPE: IR stent intravas non coronary DATE OF EXAM: 07/28/2020 COMPARISON: NONE HISTORY: Fluoroscopy time. Fluoroscopy was provided to the referring clinician.
[2020-07-28 10:12] LABS: Glucose,Whole Blood 194 mg/dL (75-99)
[2020-07-28] MEDS: HYDROcodone/APAP 5-325MG 1 EACH TAB PO PRN ×2 (11:28→20:35)
[2020-07-28] MEDS: HYDROmorphone 1 MG/ML 1 ML SYRINGE IVP PRN ×2 (11:29→15:53)
--- NOTE | 2020-07-28 13:33 | LTR ---
07/28/2020 RE: Mary Jo Caldwell Dear Fabiola: Ms. Mary Jo Caldwell underwent today successful balloon angioplasty of the right femoral artery with a good angiographic result and without any complication. I want to thank you for allowing me to participate in her care and please do not hesitate to call if you have any questions or concerns. Sincerely, Vipul Lock MD MMREMBERTOL / RODOLFON: [id number] /
[2020-07-28 16:59] LABS: Glucose,Whole Blood 101 mg/dL (75-99)
[2020-07-28 19:51] LABS: Glucose,Whole Blood 271 mg/dL (75-99)
[2020-07-28] MEDS ORDERED: ATORVASTATIN 80 MG TAB PO SCH (21:00)
[2020-07-28] MEDS ORDERED: GABAPENTIN 300 MG CAP PO SCH (21:00)
[2020-07-28] MEDS ORDERED: INSULIN DETEMIR (LEVEMIR) 100 UNIT/ML SYR SQ SCH (21:00)
[2020-07-28] MEDS ORDERED: DULoxetine HCL 60 MG CAPSULE.DR PO SCH (21:00)
--- NOTE | 2020-07-28 21:18 | AN ---
ANGIOGRAPHY REPORT DATE OF SERVICE: July 28. PERFORMING PHYSICIAN: Vipul Lock MD. PROCEDURE PERFORMED: 1. Atherectomy of the right SFA using the CSI device and using 1.5 mm lin which is solid lin. 2. Intravascular ultrasound (IVUS) of the right SFA. 3. Successful balloon angioplasty of the distal right SFA using 6 x 150 mm drug-coated balloon which was Impact drug coated balloon with an excellent angiographic results. 4. Successful stenting of the mid right SFA using 6 x 80 mm self-expandable stent with an excellent angiographic results. 5. Right lower extremity angiogram. 6. Left common femoral artery angiogram. 7. Ultrasound guidance access of the left common femoral artery. COMPLICATION: None. LEVEL OF SEDATION: Moderate with sedation length of 83 minutes. INDICATION: CLI of the right foot. PROCEDURE DESCRIPTION: After obtaining informed consent, the patient was brought to the cardiac manager lab. The left common femoral artery was cannulated using micropuncture technique under ultrasound guidance, the micropuncture wire passed easily. Then I placed a 6-[place] sheath 70 cm which was advanced up and over to the right common femoral artery under fluoroscopic guidance. After that, anticoagulation was achieved using heparin and the patient was given a weight based heparin. Subsequently, I did cross the chronic total occlusion of the right SFA using gold tip Glidewire with the backup support of 0.018 CXI catheter. After that I did intravascular ultrasound which proved that I was in the true lumen all the way. After that I did atherectomy of the right SFA using the CSI device and using 1.5 mm lin. After that, I did balloon angioplasty using chocolate balloon which was 5 mm x 120 mm. The following angiogram showed a dissection in the proximal part of the diseased segment and no dissection in the distal part of the diseased segment. Because of that, I decided to cover that with a stent so I placed 6 x 80 mm self-expandable stent in that area in the proximal part of the diseased segment and I did DCP on the distal parts of the diseased segments. The final angiogram showed good angiographic results and the procedure was completed without any complication. After that, I did exchange my long sheath into short sheath using 0.035 stiff Glidewire and then I did selective left common femoral artery angiogram. Please note that right lower extremity angiogram was performed and revealed 2 vessel runoff below the knee with AT and PT. POSTPROCEDURE MANAGEMENT: 1. Dual anti-platelet therapy. 2. Risk factor modifications. 3. Smoking cessation. 4. Follow up with the patient. MMODL / IJN: [id number] /
[2020-07-29 07:21] LABS: African American GFR (CKD) >90 (>60 ml/min/1.73 sqM); Non-African American GFR(CKD) >90 (>60 ml/min/1.73 sqM)
[2020-07-29 08:14] VITALS: BP 112/65; PULSE 70; RESP 17; TEMP 98.7
[2020-07-29 08:41] LABS: Glucose,Whole Blood 311 mg/dL (75-99)
[2020-07-29] MEDS: INSULIN ASPART (NovoLOG) 100 UNIT/ML VIAL SQ SCH ×2 (08:48→08:49)
[2020-07-29] MEDS: HYDROcodone/APAP 5-325MG 1 EACH TAB PO PRN (08:48)
[2020-07-29] MEDS ORDERED: ASPIRIN 81 MG PO SCH (09:00)
[2020-07-29] MEDS ORDERED: PRASUGREL 10 MG TAB PO SCH (09:00)
--- NOTE | 2020-07-29 09:23 | P.DS ---
Providers Date of admission: July 282020 Attending physician: Vipul Lock Primary care physician: Fabiola [place] [facility] Course: This is a 59-year-old female patient who underwent yesterday successful balloon angioplasty of the right SFA with a good angiographic results and without any complication from left groin approach. The patient was seen this morning. She is going to be discharged home on dual antiplatelet therapy and he'll follow-up with the patient next week in the office. The groin on the left side is soft and nontender and without any bruises. Plan - Discharge Summary Discharge Rx Participant: No New Discharge Prescriptions: Continue DULoxetine HCL [Cymbalta] 60 mg PO HS Atorvastatin [Lipitor] 80 mg PO HS Nitroglycerin Sl Tabs [Nitrostat] 0.4 mg SUBLINGUAL Q5M PRN #50 tab PRN Reason: Chest Pain Gabapentin [Neurontin] 900 mg PO HS Prasugrel [Effient] 10 mg PO DAILY Aspirin 81 mg PO DAILY Omeprazole 20 mg PO DAILY PRN PRN Reason: gerd Insulin Glargine [Lantus] 60 unit SQ HS #0 HYDROcodone/APAP 5-325MG [[place] 5-325] 1 tab PO Q8HR PRN #12 tab PRN Reason: Pain INSULIN ASPART (NovoLOG) [NovoLOG (formulary)] 15 unit SQ AC-TID #0 vial Discharge Medication List Atorvastatin [Lipitor] 80 mg PO HS 06/26/16 [History] DULoxetine HCL [Cymbalta] 60 mg PO HS 06/26/16 [History] Nitroglycerin Sl Tabs [Nitrostat] 0.4 mg SUBLINGUAL Q5M PRN #50 tab 07/02/16 [Rx] Gabapentin [Neurontin] 900 mg PO HS 05/15/17 [History] Aspirin 81 mg PO DAILY 10/08/17 [History] Prasugrel [Effient] 10 mg PO DAILY 10/08/17 [History] Omeprazole 20 mg PO DAILY PRN 07/01/19 [History] HYDROcodone/APAP 5-325MG [[place] 5-325] 1 tab PO Q8HR PRN #12 tab 03/23/20 [Rx] INSULIN ASPART (NovoLOG) [NovoLOG (formulary)] 15 unit SQ AC-TID #0 vial 03/23/20 [Rx] Insulin Glargine [Lantus] 60 unit SQ HS #0 03/23/20 [Rx] Follow up Appointment(s)/Referral(s): Vipul Lock MD [STAFF PHYSICIAN] - 1 Week
== END 2020-07-29 11:15 | disposition home or self-care (01) ==
LOC: CATHCVL 06:35 → 6NMEDSUR 12:19 → CATHCVL 07-29 11:15
PROVIDERS: ATTEND Internal Medicine Interventional Cardiology
DX: I70.221 Atherosclerosis of native arteries of extremities with rest pain, right leg (principal); E11.51 Type 2 diabetes mellitus with diabetic peripheral angiopathy without gangrene; E78.5 Hyperlipidemia, unspecified; I10 Essential (primary) hypertension; F17.210 Nicotine dependence, cigarettes, uncomplicated; I25.10 Atherosclerotic heart disease of native coronary artery without angina pectoris; Z95.5 Presence of coronary angioplasty implant and graft; I65.23 Occlusion and stenosis of bilateral carotid arteries; Z79.899 Other long term (current) drug therapy; Z79.82 Long term (current) use of aspirin; Z79.4 Long term (current) use of insulin; Z20.822 Contact with and (suspected) exposure to COVID-19
CPT/HCPCS: 37227; 37252; 82565; 87635; C1894 ×2; C1769 ×7; C1714; C1725 ×2; C1876; C1753; C2623; J2250; J2405; J2001; J3010; J1644; J1170; Q9967

== ENCOUNTER 2020-12-13 10:42 | Emergency (ER) | payer MEDICARE ==
[2020-12-13 12:50] VITALS: RESP 18; TEMP 97.9
[2020-12-13] MEDS ORDERED: HYDROcodone/APAP 5-325MG 1 EACH TAB PO STA (15:52)
--- NOTE | 2020-12-13 15:57 | ED ---
General Adult HPI - General Source: patient, family, RN notes reviewed, old records reviewed Mode of arrival: wheelchair Limitations: no limitations - History of Present Illness -: days(s) (2) Location: right, lower extremity Radiation: non-radiation Severity scale (1-10): 8 Quality: other (throbbing) Consistency: constant Improves with: other (elevation) Worsens with: other (Ambulation or dependent) Associated Symptoms: denies other symptoms Treatments Prior to Arrival: none <Yosef Loya - Last Filed: 12/14/20 00:08> <Mark Avilez - Last Filed: 12/14/20 23:41> - General Chief complaint: Extremity Problem,Nontraumatic Stated complaint: possible cellulitis on leg Time Seen by Provider: 12/13/20 15:29 - History of Present Illness Initial comments: 60-year-old female, alert and oriented 4, presents to the emergency room with complaints of right leg pain past couple days. Patient states that it is worse with dependency or with ambulation but gets better when she elevates it. Patient states when it is dependent and is bright red in color. She does have some right calf pain. She states that when she elevates the leg the color does return to normal. She has had a stent placed in that leg for peripheral arterial disease. Patient states that she was taking Effient after stent placement she has not been taking it since February. She does have an appointment next week with Dr. Lock. She denies any fevers. 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 (Yosef Loya) - Related Data Home Medications Medication Instructions Recorded Confirmed Atorvastatin [Lipitor] 80 mg PO HS 06/26/16 07/28/20 DULoxetine HCL [Cymbalta] 60 mg PO HS 06/26/16 07/28/20 Gabapentin [Neurontin] 900 mg PO HS 05/15/17 07/28/20 Aspirin 81 mg PO DAILY 10/08/17 07/28/20 Prasugrel [Effient] 10 mg PO DAILY 10/08/17 07/28/20 Omeprazole 20 mg PO DAILY PRN 07/01/19 07/28/20 Previous Rx's Medication Instructions Recorded Nitroglycerin Sl Tabs [Nitrostat] 0.4 mg SUBLINGUAL Q5M PRN #50 tab 07/02/16 HYDROcodone/APAP 5-325MG [[place] 1 tab PO Q8HR PRN #12 tab 03/23/20 5-325] INSULIN ASPART (NovoLOG) [NovoLOG 15 unit SQ AC-TID #0 vial 03/23/20 (formulary)] Insulin Glargine [Lantus Vial] 60 unit SQ HS #0 03/23/20 Prasugrel [Effient] 10 mg PO DAILY 30 Days #30 tablet 12/13/20 Allergies Allergy/AdvReac Type Severity Reaction Status Date / Time gluten AdvReac Nausea & Verified 12/13/20 12:49 Vomiting & Diarrhea Review of Systems ROS Other: All systems not noted in ROS Statement are negative. <Yosef Loya - Last Filed: 12/14/20 00:08> ROS Other: All systems not noted in ROS Statement are negative. <Mark Avilez - Last Filed: 12/14/20 23:41> ROS Statement: Those systems with pertinent positive or pertinent negative responses have been documented in the HPI. Past Medical History Past Medical History: CVA/TIA, Diabetes Mellitus, GERD/Reflux, Hyperlipidemia, Hypertension, Vascular Disorder Additional Past Medical History / Comment(s): Right 5th toe healing from amputation, currently dressed, wound center patient, neuropathy bilateral feet, pancreatitis X2, CVA with right sided weakness, hx left hip fracture, PAD, celiac disease, chronic low back pain, duodenitis/duodenal ulcer, hiatal hernia. History of Any Multi-Drug Resistant Organisms: None Reported Past Surgical History: Back Surgery, Cholecystectomy, Heart Catheterization With Stent, Orthopedic Surgery Additional Past Surgical History / Comment(s): Right 5th toe amputation, lumbar fusion, spinal cord stimulator, left knee arthroscopy, EGD, PATRICIA, 3 cardiac stents, Aortoram, stent to left iliac artery. Past Anesthesia/Blood Transfusion Reactions: No Reported Reaction Additional Past Anesthesia/Blood Transfusion Reaction / Comment(s): Never had blood transfusion. Date of Last Stent Placement:: 02/2017 Past Psychological History: Anxiety Smoking Status: Current every day smoker Past Alcohol Use History: None Reported Past Drug Use History: None Reported - Past Family History Father Family Medical History: Cancer, Liver Disease Additional Family Medical History / Comment(s): Idiopathic cirrhosis of liver, Liver Cancer. Mother Family Medical History: Coronary Artery Disease (CAD), Myocardial Infarction ([place]) Additional Family Medical History / Comment(s): Multiple stents. Mother at the age of 77 or 78 from [place]. <Yosef Loya - Last Filed: 12/14/20 00:08> General Exam Limitations: no limitations General appearance: alert, in no apparent distress Head exam: Present: atraumatic, normocephalic, normal inspection Eye exam: Present: normal appearance, PERRL, EOMI. Absent: scleral icterus, conjunctival injection, periorbital swelling Neck exam: Present: full ROM Respiratory exam: Present: normal lung sounds bilaterally. Absent: respiratory distress, wheezes, rales, rhonchi, stridor Cardiovascular Exam: Present: regular rate, normal rhythm, normal heart sounds. Absent: systolic murmur, diastolic murmur, rubs, gallop, clicks GI/Abdominal exam: Present: soft, normal bowel sounds. Absent: distended, tenderness, guarding, rebound, rigid Extremities exam: Present: tenderness (Right lower extremity), normal capillary refill (Capillary refill right foot less than 3 seconds), calf tenderness (Right lower extremity) Right Knee exam: Present: normal inspection. Absent: tenderness, swelling Lower Leg exam: Present: full ROM, tenderness. Absent: swelling, abrasion, laceration, ecchymosis, deformity Foot/Toe exam: Present: amputation (Fifth digit). Absent: abrasion Neurovascular tendon exam: Present: no vascular compromise. Absent: abnormal cap refill, extremity cold to touch, pallor, foot drop Back exam: Present: normal inspection, other (Nonfunctioning left-sided nerve stimulator) Neurological exam: Present: alert, oriented X3 Expanded Patient oriented to: Present: person, place, time Speech: Present: fluid speech Cranial nerves: EOM's Intact: Normal, Gag Reflex: Normal, Tongue Deviation: Normal Motor strength exam: RUE: 4, LUE: 5, RLE: 4, LLE: 5 Eye Response: (4) open spontaneously Motor Response: (6) obeys commands Verbal Response: (5) oriented Riley Total: 15 Psychiatric exam: Present: normal affect, normal mood Skin exam: Present: warm, dry, intact, normal color. Absent: rash, cyanosis, diaphoretic <Yosef Loya - Last Filed: 12/14/20 00:08> Course Vital Signs 12/13/20 12/13/20 12:49 19:09 Temperature 97.9 F Pulse Rate 89 94 Respiratory 18 18 Rate Blood Pressure 133/85 111/76 O2 Sat by Pulse 98 97 Oximetry Medical Decision Making <Yosef Loya - Last Filed: 12/14/20 00:08> <Mark Avilez - Last Filed: 12/14/20 23:41> - Medical Decision Making Ultrasound of the right lower extremity shows no evidence of DVT. There is an incidental right SFA with stent that is occluded mid lumen with reconstitution noted right popliteal artery. I did discuss this case with Dr. Cardona who suggested patient be evaluated by Dr. Avilez. She has good capillary refill and good pedal pulses. We decided that the patient could be discharged home and restarted on her Effient daily and follow up with Dr. Lock as already scheduled. We did direct patient to contact Dr. Lock tomorrow morning to let him know of the results. Patient was also directed to return to the emergency room with any new or worsening pain or cold extremity. (Yosef Loya) On my exam, patient appears to have collateral vascular supply to the right lower extremity, is despite the occlusion she has good capillary refill and palpable pulses. Patient's claudication is made worse secondary to the occlusion. I do believe the patient is stable for follow-up with Dr. Lock on an outpatient basis. She'll be restarted on her Effient. Patient was in agreement with this plan. (Mark Avilez) Disposition Is patient prescribed a controlled substance at d/c from ED?: No Time of Disposition: 18:33 <Yosef Loya - Last Filed: 12/14/20 00:08> <Mark Avilez - Last Filed: 12/14/20 23:41> Clinical Impression: Leg pain Disposition: HOME SELF-CARE Instructions (If sedation given, give patient instructions): Leg Pain (ED) Additional Instructions: Call Dr. Lock in the morning regarding ultrasound findings. Take Effient as prescribed. Return if any new or worsening symptoms including increased pain. Prescriptions: Prasugrel [Effient] 10 mg PO DAILY 30 Days #30 tablet Referrals: Fabiola Land MD [Primary Care Provider] - 1-2 days
--- NOTE | 2020-12-13 16:34 | US ---
EXAMINATION TYPE: US venous doppler duplex LE RT DATE OF EXAM: 12/13/2020 4:20 PM COMPARISON: US CLINICAL HISTORY: pain. Right ankle and foot pain x 4 days; prior Femoral Artery stenting; Distal RT LE stenting 2 months ago SIDE PERFORMED: Right TECHNIQUE: The lower extremity deep venous system is examined utilizing real time linear array sonog fortunato with graded compression, doppler sonography and color-flow sonography. VESSELS IMAGED: Common Femoral Vein Deep Femoral Vein Greater Saphenous Vein * Femoral Vein Popliteal Vein Small Saphenous Vein * Proximal Calf Veins (* superficial vessels) There is normal flow, compressibility, vascular waveforms. Right Leg: Negative for DVT ( incidental Right SFA with stent is occluded mid lumen with reconstitution noted right Popliteal Art kendall) IMPRESSION: No evident deep venous cirrhosis within the right lower extremity from the level of the k nee centrally. Peripheral vascular occlusive disease.
[2020-12-13] MEDS ORDERED: PRASUGREL 10 MG TAB PO STA (18:27)
[2020-12-13 19:10] VITALS: BP 111/76; PULSE 94
[2020-12-13] MEDS ORDERED: KETOROLAC 15 MG/ML 1 ML VIAL IM STA (19:11)
== END 2020-12-13 19:20 | disposition home or self-care (01) ==
LOC: EC 10:42
DX: M79.661 Pain in right lower leg (principal); E11.51 Type 2 diabetes mellitus with diabetic peripheral angiopathy without gangrene; I10 Essential (primary) hypertension; E78.5 Hyperlipidemia, unspecified; K21.9 Gastro-esophageal reflux disease without esophagitis; F41.9 Anxiety disorder, unspecified; F17.200 Nicotine dependence, unspecified, uncomplicated; Z79.4 Long term (current) use of insulin; Z79.82 Long term (current) use of aspirin; Z79.899 Other long term (current) drug therapy; Z86.73 Personal history of transient ischemic attack (TIA), and cerebral infarction without residual deficits; Z87.19 Personal history of other diseases of the digestive system; Z90.49 Acquired absence of other specified parts of digestive tract; Z95.5 Presence of coronary angioplasty implant and graft; Z83.79 Family history of other diseases of the digestive system; Z82.49 Family history of ischemic heart disease and other diseases of the circulatory system
CPT/HCPCS: 93971; 99283; 96372; J1885

== ENCOUNTER 2020-12-26 05:11 | Inpatient (IN) | payer MEDICARE ==
[2020-12-26] MEDS ORDERED: HYDROmorphone 0.5 MG/0.5 ML SYRINGE IVP STA (05:57)
[2020-12-26] MEDS ORDERED: HEPARIN SODIUM 1,000 UN/ML (10ML VL) IV ONE (06:01)
--- NOTE | 2020-12-26 06:06 | ED ---
Extremity Problem HPI - General Chief complaint: Extremity Problem,Nontraumatic Stated complaint: Leg Pain, Numbness Time Seen by Provider: 12/26/20 05:49 Source: patient Mode of arrival: ambulatory Limitations: no limitations - History of Present Illness Initial comments: This patient is a 60-year-old woman who presents to have evaluation of right foot pain. The patient states she has a stent to her right leg that has been occluded. She has been having pain for over 2 weeks. She was seen here and had ultrasound that showed that there was occlusion of the stent and she was to follow with her vascular surgeon. The patient states that over the course of the past night the pain worsened and then she noticed that there was discoloration of the fourth toe of the right foot. MD Complaint: extremity pain, extremity swelling -: week(s) Location: right, lower extremity History of Same: Yes Quality: aching Consistency: constant Improves with: nothing Worsens with: nothing - Related Data Home Medications Medication Instructions Recorded Confirmed Atorvastatin [Lipitor] 80 mg PO HS 06/26/16 12/26/20 DULoxetine HCL [Cymbalta] 60 mg PO HS 06/26/16 12/26/20 Aspirin 81 mg PO DAILY 10/08/17 12/26/20 Prasugrel [Effient] 10 mg PO DAILY 10/08/17 12/26/20 Fenofibrate [Lofibra] 160 mg PO DAILY 12/26/20 12/26/20 Insulin Aspart Prot/Insuln Asp See Protocol SQ AC-TID 12/26/20 12/26/20 [[facility] Novolog Mix 70-30 Vial] Metoprolol Tartrate [Lopressor] 25 mg PO DAILY 12/26/20 12/26/20 Previous Rx's Medication Instructions Recorded Nitroglycerin Sl Tabs [Nitrostat] 0.4 mg SUBLINGUAL Q5M PRN #50 tab 07/02/16 Allergies Allergy/AdvReac Type Severity Reaction Status Date / Time gluten AdvReac Nausea & Verified 12/26/20 08:03 Vomiting & Diarrhea Review of Systems ROS Statement: Those systems with pertinent positive or pertinent negative responses have been documented in the HPI. ROS Other: All systems not noted in ROS Statement are negative. Constitutional: Denies: fever, chills Respiratory: Denies: cough, dyspnea Cardiovascular: Denies: chest pain, palpitations Gastrointestinal: Denies: abdominal pain, vomiting, diarrhea Genitourinary: Denies: dysuria Skin: Denies: rash Neurological: Reports: paresthesias. Denies: weakness, numbness Hematological/Lymphatic: Denies: easy bleeding Past Medical History Past Medical History: CVA/TIA, Diabetes Mellitus, GERD/Reflux, Hyperlipidemia, Hypertension, Vascular Disorder Additional Past Medical History / Comment(s): Right 5th toe healing from amputation, currently dressed, wound center patient, neuropathy bilateral feet, pancreatitis X2, CVA with right sided weakness, hx left hip fracture, PAD, celiac disease, chronic low back pain, duodenitis/duodenal ulcer, hiatal hernia. History of Any Multi-Drug Resistant Organisms: None Reported Past Surgical History: Back Surgery, Cholecystectomy, Heart Catheterization With Stent, Orthopedic Surgery Additional Past Surgical History / Comment(s): Right 5th toe amputation, lumbar fusion, spinal cord stimulator, left knee arthroscopy, EGD, PATRICIA, 3 cardiac stents, Aortoram, stent to left iliac artery. Past Anesthesia/Blood Transfusion Reactions: No Reported Reaction Additional Past Anesthesia/Blood Transfusion Reaction / Comment(s): Never had blood transfusion. Date of Last Stent Placement:: 02/2017 Past Psychological History: Anxiety Smoking Status: Current every day smoker Past Alcohol Use History: None Reported Past Drug Use History: None Reported - Past Family History Father Family Medical History: Cancer, Liver Disease Additional Family Medical History / Comment(s): Idiopathic cirrhosis of liver, Liver Cancer. Mother Family Medical History: Coronary Artery Disease (CAD), Myocardial Infarction ([place]) Additional Family Medical History / Comment(s): Multiple stents. Mother at the age of 77 or 78 from [place]. General Exam Limitations: no limitations General appearance: alert, in no apparent distress Head exam: Present: atraumatic, normocephalic Eye exam: Present: normal appearance Respiratory exam: Present: normal lung sounds bilaterally. Absent: respiratory distress, wheezes, rales, rhonchi, stridor Cardiovascular Exam: Present: regular rate, normal rhythm, normal heart sounds. Absent: systolic murmur, diastolic murmur, rubs, gallop GI/Abdominal exam: Present: soft. Absent: distended, tenderness, guarding, rebound, rigid, mass Extremities exam: Present: normal inspection, normal capillary refill, other (Patient has dusky fourth toe of the right foot. Fifth toe amputated years ago. The lateral aspect of the right foot is mildly swollen and erythematous. No palpable pedal pulses. Motor function and sensation do appear intact.). Absent: pedal edema, calf tenderness Back exam: Present: normal inspection. Absent: CVA tenderness (R), CVA tenderness (L) Neurological exam: Present: alert. Absent: motor sensory deficit Skin exam: Present: warm, dry, intact Course Vital Signs 12/26/20 12/26/20 12/26/20 05:21 06:14 07:46 Temperature 98.5 F Pulse Rate 91 77 83 Respiratory 18 18 18 Rate Blood Pressure 149/90 138/97 138/84 O2 Sat by Pulse 100 98 97 Oximetry 12/26/20 12/26/20 12/26/20 10:00 11:37 14:00 Temperature 98.1 F Pulse Rate 75 78 67 Respiratory 18 18 18 Rate Blood Pressure 138/84 112/84 106/62 O2 Sat by Pulse 98 97 96 Oximetry 12/26/20 12/26/20 12/26/20 16:28 17:30 20:17 Temperature Pulse Rate 74 73 73 Respiratory 18 18 18 Rate Blood Pressure 111/68 116/84 103/72 O2 Sat by Pulse 97 97 97 Oximetry 12/26/20 22:00 Temperature Pulse Rate Respiratory 16 Rate Blood Pressure O2 Sat by Pulse Oximetry Medical Decision Making - Lab Data Result diagrams: 12/28/20 04:00 12/28/20 04:00 Lab Results 12/26/20 12/26/20 12/26/20 Range/Units 06:08 06:08 06:08 WBC 8.6 (3.8-10.6) k/uL RBC 5.05 (3.80-5.40) m/uL Hgb 15.2 (11.4-16.0) gm/dL Hct 43.9 (34.0-46.0) % MCV 86.9 (80.0-100.0) fL MCH 30.1 (25.0-35.0) pg MCHC 34.7 (31.0-37.0) g/dL RDW 13.7 (11.5-15.5) % Plt Count 219 (150-450) k/uL MPV 7.6 Neutrophils % 60 % Lymphocytes % 31 % Monocytes % 4 % Eosinophils % 2 % Basophils % 1 % Neutrophils # 5.2 (1.3-7.7) k/uL Lymphocytes # 2.7 (1.0-4.8) k/uL Monocytes # 0.4 (0-1.0) k/uL Eosinophils # 0.2 (0-0.7) k/uL Basophils # 0.1 (0-0.2) k/uL Poikilocytosis Slight Sodium 132 L (137-145) mmol/L Potassium 4.1 (3.5-5.1) mmol/L Chloride 97 L (98-107) mmol/L Carbon Dioxide 25 (22-30) mmol/L Anion Gap 10 mmol/L BUN 18 H (7-17) mg/dL Creatinine 0.43 L (0.52-1.04) mg/dL Est GFR (CKD-EPI)AfAm >90 (>60 ml/min/1.73 sqM) Est GFR (CKD-EPI)NonAf >90 (>60 ml/min/1.73 sqM) Glucose 303 H (74-99) mg/dL Plasma Lactic Acid Yousif 2.0 (0.7-2.0) mmol/L Calcium 9.5 (8.4-10.2) mg/dL Total Bilirubin 0.4 (0.2-1.3) mg/dL AST 15 (14-36) U/L ALT 10 (4-34) U/L Alkaline Phosphatase 64 (38-126) U/L Total Protein 6.8 (6.3-8.2) g/dL Albumin 4.1 (3.5-5.0) g/dL - EKG Data -: EKG Interpreted by Me EKG shows normal: sinus rhythm, axis (Normal), intervals (Normal), QRS complexes (Normal), ST-T waves (Normal) Rate: normal (Rate 83 bpm) Interpretation: normal EKG Critical Care Time Critical Care Time: Yes (30 minutes) Disposition Clinical Impression: PAD (peripheral artery disease), Ischemia of right lower extremity Disposition: ADMITTED IP TO THIS [facility] Condition: Serious
[2020-12-26] MEDS ORDERED: RX INFO: IV CONTRAST WAS GIVEN 1 EACH MISC MISCELLANE PRN (06:16)
[2020-12-26 06:24] LABS: Basophils # (A) 0.1 k/uL (0-0.2); Basophils % (A) 1 %; Eosinophils # (A) 0.2 k/uL (0-0.7); Eosinophils % (A) 2 %; HCT 43.9 % (34.0-46.0); HGB 15.2 gm/dL (11.4-16.0); Lymphocytes # (A) 2.7 k/uL (1.0-4.8); Lymphocytes % (A) 31 %; MCH 30.1 pg (25.0-35.0); MCHC 34.7 g/dL (31.0-37.0); MCV 86.9 fL (80.0-100.0); Mean Platelet Volume 7.6; Monocytes # (A) 0.4 k/uL (0-1.0); Monocytes % (A) 4 %; Neutrophils # (A) 5.2 k/uL (1.3-7.7); Neutrophils % (A) 60 %; Platelet Count 219 k/uL (150-450); Poikilocytosis Slight; RBC 5.05 m/uL (3.80-5.40); RDW 13.7 % (11.5-15.5); WBC 8.6 k/uL (3.8-10.6)
[2020-12-26] MEDS: HEPARIN SOD,PORK IN 0.45% NACL 25,000 UNIT in 0.45% NACL 1 250ML.BAG IV SCH (06:26)
[2020-12-26 06:58] LABS: ALT 10 U/L (4-34); AST 15 U/L (14-36); African American GFR (CKD) >90 (>60 ml/min/1.73 sqM); Albumin 4.1 g/dL (3.5-5.0); Alkaline Phosphatase 64 U/L (38-126); Anion Gap 10 mmol/L; Blood Urea Nitrogen 18 mg/dL (7-17); Calcium 9.5 mg/dL (8.4-10.2); Carbon Dioxide 25 mmol/L (22-30); Chloride 97 mmol/L (98-107); Glucose 303 mg/dL (74-99); Non-African American GFR(CKD) >90 (>60 ml/min/1.73 sqM); Potassium 4.1 mmol/L (3.5-5.1); Total Bilirubin 0.4 mg/dL (0.2-1.3); Total Protein 6.8 g/dL (6.3-8.2)
[2020-12-26 07:06] LABS: Sodium 132 mmol/L (137-145)
[2020-12-26] MEDS ORDERED: NALOXONE 0.4 MG/ML 1 ML VIAL IV PRN (07:07)
[2020-12-26] MEDS ORDERED: NITROGLYCERIN SL TABS 0.4 MG TAB SUBLINGUAL PRN (07:23)
[2020-12-26] MEDS: SODIUM CHLORIDE 0.9% 1,000 ML IV SCH ×2 (07:50→16:37)
--- NOTE | 2020-12-26 08:31 | CT ---
CTA abdomen and pelvis with runoff. HISTORY: Right lower extremity ischemia. COMPARISON: None. TECHNIQUE: Multiple axial images were obtained through the abdomen and pelvis and lower extremities f ollowing uneventful administration of nonionic IV contrast. The exam was performed according to the C TA protocol. Coronal and sagittal reconstructions and MIP images were generated and reviewed.. FINDINGS: Inflow CTA: There is moderate arteriosclerotic calcification and mild mural thrombus in the abdominal aorta but there is no significant stenosis or aneurysm. There is a right common and external iliac stent with significant intimal hyperplasia but flow is seen within the stent. The right common femoral artery is patent without significant stenosis. On the left there is arteriosclerotic calcification of the nicole c vessels which are patent. There is calcification or plaque in the left common femoral artery with m ild stenosis.. Outflow CTA: On the right, there is occlusion of the proximal superficial femoral artery. There is a stent in the distal superficial femoral artery which is occluded. There is reconstitution of the right popliteal a rtery via geniculate collaterals. On the left, there is scattered plaque in the distal superficial fe moral artery with scattered mild stenoses. The left popliteal artery is patent. Runoff CTA: There is three-vessel runoff into the foot and ankle bilaterally. IMPRESSION: 1. Arteriosclerosis of the aorta without significant aneurysm or stenosis. 2. Patent right common and extra renal iliac stents with intimal hyperplasia and mild diffuse narrowi ng. 3. No significant inflow stenosis on the left. 4. Occluded right superficial femoral artery and distal right superficial femoral artery stent. 5. Multiple mild stenoses in the distal left superficial femoral artery secondary to arterial sclerot ic plaque. 6. Three-vessel runoff bilaterally.
[2020-12-26 09:54] LABS: INR 0.9 (<1.2); Partial Thromboplastin Time 29.7 sec (22.0-30.0); Prothrombin Time 10.1 sec (9.0-12.0)
[2020-12-26] MEDS: HYDROcodone/APAP 5-325MG 1 EACH TAB PO PRN ×2 (10:05→21:56)
[2020-12-26 11:49] LABS: Glucose,Whole Blood 266 mg/dL (75-99)
[2020-12-26] MEDS: ASPIRIN 81 MG PO SCH (12:11)
[2020-12-26] MEDS: PRASUGREL 10 MG TAB PO SCH (12:11)
[2020-12-26] MEDS: PANTOPRAZOLE 40 MG TABLET PO PRN (12:11)
[2020-12-26] MEDS: HYDROmorphone 0.5 MG/0.5 ML SYRINGE IVP PRN ×3 (12:11→23:13)
[2020-12-26] MEDS: INSULIN ASPART (NovoLOG) 100 UNIT/ML VIAL SQ SCH ×5 (12:12→23:17)
--- NOTE | 2020-12-26 13:35 | P.CRDCN ---
History of Present Illness History of present illness: HISTORY OF PRESENTING ILLNESS Patient is a pleasant 60-year-old female with history of coronary artery disease, PAD, diabetes mellitus, hyperlipidemia, tobacco abuse who presents secondary to right lower extremity pain and discoloration of her toe. Patient does have a history of PAD with prior right SFA stenting 07/2020. She had done very well since that standpoint however over the last 2 weeks has noticed increased pain even while at rest. She therefore came to the emergency departm ent 12/13/2020 where a lower extremity venous ultrasound was performed however there was also note of a right SFA occluded stent. Patient was then scheduled to follow-up with Dr. Lock however was not able to. She was restarted on Effient. She had pain which was worse when she was having her leg dependent however over the last 24-48 hours she has noticed that the right toe is somewhat more purple and dusky and therefore presented to emergency department. She admits pain has been fairly well controlled with morphine. She was started on a heparin drip. A CTA was performed which showed patent right common and external iliac stents, occluded right SFA and distal right SFA stent, multiple mild stenoses on the left with 3 vessel runoff bilaterally. REVIEW OF SYSTEMS At the time of my exam: CONSTITUTIONAL: Denies fever or chills. CARDIOVASCULAR: Denies chest pain, shortness of breath, orthopnea, PND or palpitations. RESPIRATORY: Denies cough. GASTROINTESTINAL: Denies abdominal pain, diarrhea, constipation, nausea or vomiting. MUSCULOSKELETAL: Denies myalgias. NEUROLOGIC: Denies numbness, tingling or weakness. ENDOCRINE: Denies fatigue, weight change, polydipsia or polyurina. GENITOURINARY: Denies burning, hematuria or urgency with micturation. HEMATOLOGIC: Denies history of anemia or bleeding. PHYSICAL EXAMINATION Vital signs reviewed. CONSTITUTIONAL: No apparent distress. HEENT: Head is normocephalic. Pupils are equal, round. Sclerae anicteric. Mucous membranes of the mouth are moist. No JVD. No carotid bruit. CHEST EXAMINATION: Lungs are clear to auscultation. No chest wall tenderness is noted on palpation or with deep breathing. HEART EXAMINATION: Regular rate and rhythm. S1, S2 heard. No murmurs, gallops or rub. ABDOMEN: Soft, nontender. Positive bowel sounds. EXTREMITIES: No palpable right posterior tibial or dorsalis pedis pulses. +Rubor of the right calf and lower with right fourth toe dusky, cyanotic. Positive fifth toe amputation. NEUROLOGIC EXAMINATION: Patient is awake, alert and oriented x3. ASSESSMENT 1. Acute limb ischemia 2. History of PAD status post right SFA stenting 3. Coronary artery disease 4. Hypertension 5. Hyperlipidemia 6. Diabetes mellitus PLAN Patient has had worsened right lower extremity pain over the last 2 weeks and previous emergency department visit with SFA occluded stent. Therefore this likely has been going on for a few weeks. She has noted some improvement in the color and pain with keeping legs elevated and on heparin drip. Continue with heparin drip and angiography with possible lytic catheter tomorrow morning with Dr. Lock. Monitor neurovascular status closely. Continue with aspirin and Effi ent. Past Medical History Past Medical History: CVA/TIA, Diabetes Mellitus, GERD/Reflux, Hyperlipidemia, Hypertension, Vascular Disorder Additional Past Medical History / Comment(s): Right 5th toe healing from amputation, currently dressed, wound center patient, neuropathy bilateral feet, pancreatitis X2, CVA with right sided weakness, hx left hip fracture, PAD, celiac disease, chronic low back pain, duodenitis/duodenal ulcer, hiatal hernia. History of Any Multi-Drug Resistant Organisms: None Reported Past Surgical History: Back Surgery, Cholecystectomy, Heart Catheterization With Stent, Orthopedic Surgery Additional Past Surgical History / Comment(s): Right 5th toe amputation, lumbar fusion, spinal cord stimulator, left knee arthroscopy, EGD, PATRICIA, 3 cardiac stents, Aortoram, stent to left iliac artery. Past Anesthesia/Blood Transfusion Reactions: No Reported Reaction Additional Past Anesthesia/Blood Transfusion Reaction / Comment(s): Never had blood transfusion. Date of Last Stent Placement:: 02/2017 Past Psychological History: Anxiety Smoking Status: Current every day smoker Past Alcohol Use History: None Reported Past Drug Use History: None Reported - Past Family History Father Family Medical History: Cancer, Liver Disease Additional Family Medical History / Comment(s): Idiopathic cirrhosis of liver, Liver Cancer. Mother Family Medical History: Coronary Artery Disease (CAD), Myocardial Infarction ([place]) Additional Family Medical History / Comment(s): Multiple stents. Mother at the age of 77 or 78 from [place]. Medications and Allergies Home Medications Medication Instructions Recorded Confirmed Type Atorvastatin [Lipitor] 80 mg PO HS 06/26/16 12/26/20 History DULoxetine HCL [Cymbalta] 60 mg PO HS 06/26/16 12/26/20 History Nitroglycerin Sl Tabs [Nitrostat] 0.4 mg SUBLINGUAL Q5M PRN #50 tab 07/02/16 12/26/20 Rx Aspirin 81 mg PO DAILY 10/08/17 12/26/20 History Prasugrel [Effient] 10 mg PO DAILY 10/08/17 12/26/20 History Fenofibrate [Lofibra] 160 mg PO DAILY 12/26/20 12/26/20 History Insulin Aspart Prot/Insuln Asp See Protocol SQ AC-TID 12/26/20 12/26/20 History [Relion Novolog Mix 70-30 Vial] Metoprolol Tartrate [Lopressor] 25 mg PO DAILY 12/26/20 12/26/20 History Allergies Allergy/AdvReac Type Severity Reaction Status Date / Time gluten AdvReac Nausea & Verified 12/26/20 08:03 Vomiting & Diarrhea Physical Exam Vitals: Vital Signs Temp Pulse Resp BP Pulse Ox 12/26/20 11:37 78 18 112/84 97 12/26/20 10:00 75 18 138/84 98 12/26/20 07:46 83 18 138/84 97 12/26/20 06:14 77 18 138/97 98 12/26/20 05:21 98.5 F 91 18 149/90 100 Intake and Output 12/25/20 12/26/20 12/26/20 23:59 06:59 14:59 Other: Weight Results 12/26/20 06:08 12/26/20 06:08 Cardiac Enzymes 12/26/20 Range/Units 06:08 AST 15 (14-36) U/L Coagulation 12/26/20 Range/Units 09:32 PT 10.1 (9.0-12.0) sec APTT 29.7 (22.0-30.0) sec CBC 12/26/20 Range/Units 06:08 WBC 8.6 (3.8-10.6) k/uL RBC 5.05 (3.80-5.40) m/uL Hgb 15.2 (11.4-16.0) gm/dL Hct 43.9 (34.0-46.0) % Plt Count 219 (150-450) k/uL Comprehensive Metabolic Panel 12/26/20 Range/Units 06:08 Sodium 132 L (137-145) mmol/L Potassium 4.1 (3.5-5.1) mmol/L Chloride 97 L (98-107) mmol/L Carbon Dioxide 25 (22-30) mmol/L BUN 18 H (7-17) mg/dL Creatinine 0.43 L (0.52-1.04) mg/dL Glucose 303 H (74-99) mg/dL Calcium 9.5 (8.4-10.2) mg/dL AST 15 (14-36) U/L ALT 10 (4-34) U/L Alkaline Phosphatase 64 (38-126) U/L Total Protein 6.8 (6.3-8.2) g/dL Albumin 4.1 (3.5-5.0) g/dL Current Medications Generic Name Dose Route Start Last Admin Trade Name Freq PRN Reason Stop Dose Admin Hydrocodone Bitart/Acetaminophen 1 each 12/26/20 07:23 12/26/20 10:05 Hydrocodone/Apap 5-325mg 1 Each Tab PO 1 each Q8HR PRN Administration Moderate Pain Aspirin 81 mg 12/26/20 09:00 12/26/20 12:11 Aspirin 81 Mg PO 81 mg DAILY MAGALY Administration Atorvastatin Calcium 80 mg 12/26/20 21:00 Atorvastatin 80 Mg Tab PO HS MAGALY Duloxetine HCl 60 mg 12/26/20 21:00 Duloxetine Hcl 60 Mg Capsule.Dr PO HS MAGALY Gabapentin 900 mg 12/26/20 21:00 Gabapentin 300 Mg Cap PO HS MAGALY Heparin Sodium (Porcine) 0 unit 12/26/20 06:01 Heparin Sodium 1,000 Un/Ml (10ml Vl) IV PER PROTOCOL PRN Low PTT Protocol Hydromorphone HCl 0.5 mg 12/26/20 07:07 12/26/20 12:11 Hydromorphone 0.5 Mg/0.5 Ml Syringe IVP 0.5 mg Q3HR PRN Administration Moderate Pain Heparin Sodium/Sodium Chloride 250 mls @ 7.62 mls/hr 12/26/20 06:15 12/26/20 06:26 25,000 unit/ Sodium Chloride IV 12 units/kg/hr .Q24H MAGALY 7.62 mls/hr Administration Protocol 12 UNITS/KG/HR Sodium Chloride 1,000 mls @ 75 mls/hr 12/26/20 07:15 12/26/20 07:50 Saline 0.9% IV 75 mls/hr .[id number] MAGALY Administration Ampicillin Sodium/Sulbactam 100 mls @ 200 mls/hr 12/26/20 13:30 Sodium 3 gm/ Sodium Chloride IVPB Q6HR MAGALY Insulin Aspart 15 unit 12/26/20 08:45 12/26/20 12:12 Insulin Aspart (Novolog) 100 Unit/Ml Vial SQ 15 unit AC-TID MAGALY Administration Insulin Aspart 0 unit 12/26/20 17:30 Insulin Aspart (Novolog) 100 Unit/Ml Vial SQ ACHS [facility] Protocol Insulin Detemir 60 unit 12/26/20 21:00 Insulin Detemir (Levemir) 100 Unit/Ml Syr SQ HS [facility] Miscellaneous Information 1 each 12/26/20 06:16 Rx Info: Iv Contrast Was Given 1 Each Misc MISCELLANE 12/28/20 06:17 DAILY PRN Per Protocol Naloxone HCl 0.2 mg 12/26/20 07:07 Naloxone 0.4 Mg/Ml 1 Ml Vial IV Q2M PRN Opioid Reversal Nitroglycerin 0.4 mg 12/26/20 07:23 Nitroglycerin Sl Tabs 0.4 Mg Tab SUBLINGUAL Q5M PRN Chest Pain Pantoprazole Sodium 40 mg 12/26/20 07:23 12/26/20 12:11 Pantoprazole 40 Mg Tablet PO 40 mg DAILY PRN Administration gerd Prasugrel 10 mg 12/26/20 09:00 12/26/20 12:11 Prasugrel 10 Mg Tab PO 10 mg DAILY MAGALY Administration Intake and Output 12/25/20 12/26/20 12/26/20 23:59 06:59 14:59 Other: Weight 12/26/20 06:08 12/26/20 06:08
[2020-12-26] MEDS: AMPICILLIN-SULBACTAM 3 GM in SODIUM CHLORIDE 0.9% 100 ML IVPB SCH ×2 (16:41→19:27)
[2020-12-26 17:38] LABS: Glucose,Whole Blood 216 mg/dL (75-99)
[2020-12-26] MEDS: HEPARIN SODIUM 1,000 UN/ML (10ML VL) IV PRN (17:42)
[2020-12-26] MEDS: GABAPENTIN 300 MG CAP PO SCH (20:20)
[2020-12-26] MEDS: DULoxetine HCL 60 MG CAPSULE.DR PO SCH (20:20)
[2020-12-26] MEDS: ATORVASTATIN 80 MG TAB PO SCH (20:20)
--- NOTE | 2020-12-26 22:35 | P.CONS ---
History of Present Illness - Reason for Consult Consult date: 12/26/20 right foot cellulitis Requesting physician: Caleb E Sheet - Chief Complaint right foot pain and discoled toes x days - History of Present Illness History of present illness : Patient is 60-year female with a past medical history significant for right diabetic foot infection in this patient did have an infected callus on the plantar aspect of the left fifth toe at the base of the fifth toe status post right fifth toe amputation patient also have significant peripheral arterial disease and did have stenting to the right superficial femoral artery patient is now presenting to the ER for evaluation of increasing pain to the right foot over the last day or 2 patient denies any history of any trauma patient describing the pain to be more of a throbbing to dull aching 6-7 out of 10 and no radiation currently do not have any open wounds however she did have discoloration of the right fourth toe patient did have a lower extremity CT angiogram that has been suspicious for occlusion of the right superficial femoral artery stents patient did have a normal white count with no left shift and the patient has been afebrile patient was started on Unasyn admitted to the hospital infectious disease was consulted with concern for possible cellulitis of the right foot Review of system: CONSTITUTIONAL: Positive for weakness denies fever. EYES: No complaint. ENT: No complaint. RESPIRATORY: No complaint. CARDIOVASCULAR: No complaint. GENITOURINARY: No complaint. GASTROINTESTINAL: No complaint. MUSCULOSKELETAL: As per history of present illness. INTEGUMENTARY: As per history of present illness. PSYCHOLOGIC: No complaint. ENDOCRINE: No complaint. NEUROLOGIC: No complaint. Past medical history : Reviewed, documented below Past surgical history : Reviewed, documented below Social history: Reviewed, documented below Medications: Reviewed, as documented below EXAMINATION: Vital sigans= Reviewed and documented below GENERAL DESCRIPTION: Middle-aged female lying in bed, no distress. No tachypnea or accessory muscle of respiration use. HEENT: Shows Pallor , no scleral icterus. Oral mucous membrane is dry. NECK: Trachea central, no thyromegaly. LUNGS: Unlabored breathing. Clear to auscultation anteriorly. No wheeze or crackle. HEART: S1, S2, regular rate and rhythm. ABDOMEN: Soft, no tenderness , guarding or rigidity EXTREMITIES: Right fourth and to some extent third toe did have discoloration more pale foot is cold to touch do not have any open wound or any drainage SKIN: No rash, no masses palpable. NEUROLOGICAL: The patient is awake, alert, oriented x3, mood and affect normal. LABS AND RADIOLOGY: Reviewed results see below Assessment : Patient with right foot pain more likely secondary to underlying ischemic changes in this patient did have significant peripheral arterial disease and is status post stenting however the CT angiogram shows occlusion of those stents likely responsible for her symptoms clinic suspicious for underlying cellulitis very less likely but not entirely excluded Plan: 1-May continue her with empiric Unasyn at this point 2-await further work-up per vascular surgery 3-keep the area of the pressure We will follow on clinical condition and cultures to further adjust medication if needed Thank you for this consultation we will follow the patient along with you Past Medical History Past Medical History: CVA/TIA, Diabetes Mellitus, GERD/Reflux, Hyperlipidemia, Hypertension, Vascular Disorder Additional Past Medical History / Comment(s): Right 5th toe healing from amputation, currently dressed, wound center patient, neuropathy bilateral feet, pancreatitis X2, CVA with right sided weakness, hx left hip fracture, PAD, celiac disease, chronic low back pain, duodenitis/duodenal ulcer, hiatal hernia. History of Any Multi-Drug Resistant Organisms: None Reported Past Surgical History: Back Surgery, Cholecystectomy, Heart Catheterization With Stent, Orthopedic Surgery Additional Past Surgical History / Comment(s): Right 5th toe amputation, lumbar fusion, spinal cord stimulator, left knee arthroscopy, EGD, PATRICIA, 3 cardiac stents, Aortoram, stent to left iliac artery. Past Anesthesia/Blood Transfusion Reactions: No Reported Reaction Additional Past Anesthesia/Blood Transfusion Reaction / Comm: Never had blood transfusion. Date of Last Stent Placement:: 02/2017 Past Psychological History: Anxiety Smoking Status: Current every day smoker Past Alcohol Use History: None Reported Past Drug Use History: None Reported - Past Family History Father Family Medical History: Cancer, Liver Disease Additional Family Medical History / Comment(s): Idiopathic cirrhosis of liver, Liver Cancer. Mother Family Medical History: Coronary Artery Disease (CAD), Myocardial Infarction ([place]) Additional Family Medical History / Comment(s): Multiple stents. Mother at the age of 77 or 78 from [place]. Medications and Allergies Home Medications Medication Instructions Recorded Confirmed Type Atorvastatin [Lipitor] 80 mg PO HS 06/26/16 12/26/20 History DULoxetine HCL [Cymbalta] 60 mg PO HS 06/26/16 12/26/20 History Nitroglycerin Sl Tabs [Nitrostat] 0.4 mg SUBLINGUAL Q5M PRN #50 tab 07/02/16 12/26/20 Rx Aspirin 81 mg PO DAILY 10/08/17 12/26/20 History Prasugrel [Effient] 10 mg PO DAILY 10/08/17 12/26/20 History Fenofibrate [Lofibra] 160 mg PO DAILY 12/26/20 12/26/20 History Insulin Aspart Prot/Insuln Asp See Protocol SQ AC-TID 12/26/20 12/26/20 History [Relion Novolog Mix 70-30 Vial] Metoprolol Tartrate [Lopressor] 25 mg PO DAILY 12/26/20 12/26/20 History Allergies Allergy/AdvReac Type Severity Reaction Status Date / Time gluten AdvReac Nausea & Verified 12/26/20 08:03 Vomiting & Diarrhea Physical Exam Vitals: Vital Signs Temp Pulse Resp BP Pulse Ox 12/26/20 14:00 98.1 F 67 18 106/62 96 12/26/20 11:37 78 18 112/84 97 12/26/20 10:00 75 18 138/84 98 12/26/20 07:46 83 18 138/84 97 12/26/20 06:14 77 18 138/97 98 12/26/20 05:21 98.5 F 91 18 149/90 100 Intake and Output 12/26/20 12/26/20 12/26/20 06:59 14:59 22:59 Other: Weight Results CBC & Chem 7: 12/26/20 06:08 12/26/20 06:08 Labs: Abnormal Lab Results - Last 24 Hours (Table) 12/26/20 12/26/20 Range/Units 06:08 11:46 Sodium 132 L (137-145) mmol/L Chloride 97 L (98-107) mmol/L BUN 18 H (7-17) mg/dL Creatinine 0.43 L (0.52-1.04) mg/dL Glucose 303 H (74-99) mg/dL POC Glucose (mg/dL) 266 H (75-99) mg/dL
[2020-12-26 23:01] LABS: Glucose,Whole Blood 304 mg/dL (75-99)
[2020-12-26] MEDS: INSULIN DETEMIR (LEVEMIR) 100 UNIT/ML SYR SQ SCH (23:12)
[2020-12-27] MEDS: AMPICILLIN-SULBACTAM 3 GM in SODIUM CHLORIDE 0.9% 100 ML IVPB SCH ×4 (00:24→21:07)
[2020-12-27] MEDS: HEPARIN SODIUM 1,000 UN/ML (10ML VL) IV PRN ×2 (00:45→23:40)
[2020-12-27] MEDS: HEPARIN SOD,PORK IN 0.45% NACL 25,000 UNIT in 0.45% NACL 1 250ML.BAG IV SCH (05:51)
[2020-12-27 06:30] LABS: Partial Thromboplastin Time 45.8 sec (22.0-30.0); Prothrombin Time 10.5 sec (9.0-12.0)
--- NOTE | 2020-12-27 07:02 | P.HPIM ---
History of Present Illness This is a pleasant 70 years old female with past medical history of CVA/TIA, Diabetes Mellitus, GERD, Hyperlipidemia, Hypertension, s/p Right 5th toe amputation with stent to left iliac artery., neuropathy bilateral feet, pancreatitis X2, CVA with right sided weakness, celiac disease, chronic low back pain, duodenitis/duodenal ulcer, hiatal hernia,Back Surgery, Cholecystectomy, Heart Catheterization With Stent x3, , Status post lumbar fusion, spinal cord stimulator, She underwent successful balloon angioplasty of the right femoral artery by Dr. Cruz on 08/11/2020 Also she has history of fifth toe amputation by Dr. Padilla vascular surgery Vitals are stable Labs including CBC, INR, BMP and liver enzymes are unremarkable. Coronavirus nondetected Glucose elevated 303 EKG showing normal sinus rhythm at [address]-T changes lower extremity CTA : Patent right common and external renal iliac stents with mild diffuse narrowing, no significant flow stenosis on the left. Occluded right superficial femoral artery and right femoral artery stent. also was started on normal saline at 75 mL/h and consulted cardiology team. Al so patient was started on heparin drip Emergency room he was started on heparin drip and pain management Review of Systems CONSTITUTIONAL: No fever, no malaise, no fatigue. HEENT: No recent visual problems or hearing problems. Denied any sore throat. CARDIOVASCULAR: No orthopnea, PND, no palpitations, no syncope. PULMONARY: No shortness of breath, no cough, no hemoptysis. GASTROINTESTINAL: No diarrhea, no nausea, no vomiting, no abdominal pain. Normoactive bowel sounds. NEUROLOGICAL: No headaches, no weakness, no numbness. HEMATOLOGICAL: Denies any bleeding or petechiae. GENITOURINARY: Denies any burning micturition, frequency, or urgency. MUSCULOSKELETAL/RHEUMATOLOGICAL: Denies any joint pain, swelling, or any muscle pain. ENDOCRINE: Denies any polyuria or polydipsia. Past Medical History Past Medical History: CVA/TIA, Diabetes Mellitus, GERD/Reflux, Hyperlipidemia, Hypertension, Vascular Disorder Additional Past Medical History / Comment(s): Right 5th toe healing from amput ation, currently dressed, wound center patient, neuropathy bilateral feet, pancreatitis X2, CVA with right sided weakness, hx left hip fracture, PAD, celiac disease, chronic low back pain, duodenitis/duodenal ulcer, hiatal hernia. History of Any Multi-Drug Resistant Organisms: None Reported Past Surgical History: Back Surgery, Cholecystectomy, Heart Catheterization With Stent, Orthopedic Surgery Additional Past Surgical History / Comment(s): Right 5th toe amputation, lumbar fusion, spinal cord stimulator, left knee arthroscopy, EGD, PATRICIA, 3 cardiac stents, Aortoram, stent to left iliac artery. Past Anesthesia/Blood Transfusion Reactions: No Reported Reaction Additional Past Anesthesia/Blood Transfusion Reaction / Comment(s): Never had blood transfusion. Date of Last Stent Placement:: 02/2017 Past Psychological History: Anxiety Smoking Status: Current every day smoker Past Alcohol Use History: None Reported Past Drug Use History: None Reported - Past Family History Father Family Medical History: Cancer, Liver Disease Additional Family Medical History / Comment(s): Idiopathic cirrhosis of liver, Liver Cancer. Mother Family Medical History: Coronary Artery Disease (CAD), Myocardial Infarction ([place]) Additional Family Medical History / Comment(s): Multiple stents. Mother at the age of 77 or 78 from [place]. Medications and Allergies Home Medications Medication Instructions Recorded Confirmed Type Atorvastatin [Lipitor] 80 mg PO HS 06/26/16 12/26/20 History DULoxetine HCL [Cymbalta] 60 mg PO HS 06/26/16 12/26/20 History Nitroglycerin Sl Tabs [Nitrostat] 0.4 mg SUBLINGUAL Q5M PRN #50 tab 07/02/16 12/26/20 Rx Aspirin 81 mg PO DAILY 10/08/17 12/26/20 History Prasugrel [Effient] 10 mg PO DAILY 10/08/17 12/26/20 History Fenofibrate [Lofibra] 160 mg PO DAILY 12/26/20 12/26/20 History Insulin Aspart Prot/Insuln Asp See Protocol SQ AC-TID 12/26/20 12/26/20 History [Relion Novolog Mix 70-30 Vial] Metoprolol Tartrate [Lopressor] 25 mg PO DAILY 12/26/20 12/26/20 History Allergies Allergy/AdvReac Type Severity Reaction Status Date / Time gluten AdvReac Nausea & Verified 12/26/20 08:03 Vomiting & Diarrhea Physical Exam Vitals: Vital Signs Temp Pulse Resp BP Pulse Ox 12/26/20 11:37 78 18 112/84 97 12/26/20 10:00 75 18 138/84 98 12/26/20 07:46 83 18 138/84 97 12/26/20 06:14 77 18 138/97 98 12/26/20 05:21 98.5 F 91 18 149/90 100 Intake and Output 12/25/20 12/26/20 12/26/20 23:59 06:59 14:59 Other: Weight GENERAL: The patient is alert and oriented x3, not in any acute distress. Well developed, well nourished. HEENT: Pupils are round and equally reacting to light. EOMI. No scleral icterus. No conjunctival pallor. Normocephalic, atraumatic. No pharyngeal erythema. No thyromegaly. CARDIOVASCULAR: S1 and S2 present. No murmurs, rubs, or gallops. PULMONARY: Chest is clear to auscultation, no wheezing or crackles. ABDOMEN: Soft, nontender, nondistended, normoactive bowel sounds. No palpable organomegaly. MUSCULOSKELETAL: No joint swelling or deformity. -EXTREMITIES: No cyanosis, clubbing, or pedal edema. The right for still i nflamed NEUROLOGICAL: Gross neurological examination did not reveal any focal deficits. SKIN: No rashes. No petechiae Results CBC & Chem 7: 12/26/20 06:08 12/26/20 06:08 Labs: Abnormal Lab Results - Last 24 Hours (Table) 12/26/20 12/26/20 Range/Units 06:08 11:46 Sodium 132 L (137-145) mmol/L Chloride 97 L (98-107) mmol/L BUN 18 H (7-17) mg/dL Creatinine 0.43 L (0.52-1.04) mg/dL Glucose 303 H (74-99) mg/dL POC Glucose (mg/dL) 266 H (75-99) mg/dL Assessment and Plan Assessment: Right fourth toe ischemia. With history of amputation of the right fifth toe. With CTA showing occluded right superficial femoral artery and distal right superficial femoral artery stent Peripheral vascular disease, status post stent to the left iliac artery Possible some elements of cellulitis Diabetes mellitus, with hyperglycemia, present on admission Hypertension Hyperlipidemia History of GERD History of stroke with right hemiparesis History of coronary artery disease status post stent 3 Hiatal hernia Chronic back pain, status post spinal effusion and spinal stimulator History of degenerative neuritis/duodenal ulcer History of celiac disease Diabetic neuropathy Plan: This is a pleasant 60 years old female who presents with right fourth ischemia continue with heparin drip Pain management Continue with normal saline Follow-up with cardiology consult Also we will start the patient on Zosyn empirically, consult infectious disease team. Also we will consult vascular surgery Dr. Padilla as he did fifth toe amputation before Check hemoglobin A1c and continue with insulin sliding scale Labs and medication were reviewed.. Continue same treatment. Continue with symptomatic treatment. Resume home medication. Monitor lytes and vitals. DVT and GI prophylaxis. Further recommendations depends on the clinical course of the patient DVT prophylaxis: heparin GI Prophylaxis: Ppi PT/OT: Pending Prognosis is guarded
[2020-12-27 07:14] LABS: Glucose,Whole Blood 173 mg/dL (75-99)
[2020-12-27] MEDS: ASPIRIN 81 MG PO SCH (09:22)
[2020-12-27] MEDS: PRASUGREL 10 MG TAB PO SCH (09:22)
[2020-12-27] MEDS: INSULIN ASPART (NovoLOG) 100 UNIT/ML VIAL SQ SCH ×7 (09:22→21:07)
[2020-12-27] MEDS ORDERED: SODIUM CHLORIDE 0.9% 1,000 ML IV ONE (12:30)
[2020-12-27] MEDS ORDERED: LIDOCAINE 1% INJ 10MG/ML (20 ML MDV) ONE (12:33)
[2020-12-27] MEDS ORDERED: ALTEPLASE 10 MG in SODIUM CHLORIDE 0.9% 100 ML IA ONE ×2 (12:35→23:00)
[2020-12-27] MEDS ORDERED: ALTEPLASE 2 MG VIAL (CATHFLO) IA STA (12:35)
[2020-12-27] MEDS ORDERED: LIDOCAINE 1% INJ 10MG/ML (20 ML MDV) SQ ONE (12:37)
[2020-12-27] MEDS ORDERED: MIDAZOLAM 2 MG/2 ML VIAL IV ONE (12:41)
[2020-12-27] MEDS ORDERED: HEPARIN SODIUM 1,000 UN/ML (10ML VL) ONE (12:42)
[2020-12-27] MEDS ORDERED: HEPARIN SODIUM 1,000 UN/ML (10ML VL) IV ONE (12:51)
[2020-12-27] MEDS ORDERED: HEPARIN SOD,PORK IN 0.45% NACL 25,000 UNIT in 0.45% NACL 1 250ML.BAG IV ONE (13:12)
[2020-12-27] MEDS ORDERED: SODIUM CHLORIDE 0.9% 1,000 ML in EMPTY BAG 1 BAG IV SCH (13:15)
[2020-12-27] MEDS ORDERED: HEPARIN SODIUM 1,000 UN/ML (10ML VL) MISCELLANE ONE (13:15)
[2020-12-27 13:53] LABS: Glucose,Whole Blood 105 mg/dL (75-99)
[2020-12-27] MEDS: HYDROcodone/APAP 5-325MG 1 EACH TAB PO PRN (13:59)
[2020-12-27] MEDS ORDERED: HYDROmorphone 0.5 MG/0.5 ML SYRINGE IVP ONE (14:37)
--- NOTE | 2020-12-27 14:48 | AN ---
ANGIOGRAPHY REPORT DATE OF SERVICE: 12/26/2020 PERFORMING PHYSICIAN: Vipul Lock M.D. PROCEDURES PERFORMED: 1. Right lower extremity angiogram. 2. Placement of at the right SFA. INDICATION: this is a 60-year-old female patient who presented to the emergency department with right lower extremity discomfort and she was found to have an occluded right SFA on . APPROACH: Left common femoral artery. COMPLICATIONS: None. LEVEL OF SEDATION: Moderate, with sedation length of 22 minutes. PROCEDURE DESCRIPTION: After obtaining informed consent, the patient was brought to the cardiac laborer pipelines. The left common femoral artery was cannulated using micropuncture technique under ultrasound guidance. The micropuncture wire passed easily. Then I pre-dilated the artery using a 6-Maltese dilator. Subsequently I placed a 70 cm 6-Maltese Raabe sheath at the left common femoral artery. After that I did select the right SFA using an 0.035 stiff Glidewire with the back-up support of a 5-Maltese RIM catheter. After that I did advance the sheath over the wire and the catheter to the right common femoral artery. Right lower extremity angiogram was performed and showed occluded right SFA all the way to the inguinal ligament. The patient does have 2-vessel runoff below the knee. After that I did cross the right SFA using an 0.035 stiff Glidewire with the back-up support of a 5-Maltese RIM catheter. Crossing the SFA was easy. After that I did place an infusion catheter over the 0.035 stiff Glidewire and infusion catheter was placed in the right SFA all the way to the inguinal ligament. The procedure was completed without any complication. The patient will be tipped with tPA overnight and she will be brought tomorrow for a second look. POSTPROCEDURE MANAGEMENT: 1. Continue the current medical regimen. 2. TPA overnight. 3. Monitor the PTT. 4. Follow up with the patient. MMODL / IJN: [id number] /
[2020-12-27 15:42] LABS: Glucose,Whole Blood 208 mg/dL (75-99)
--- NOTE | 2020-12-27 15:51 | P.PN ---
Subjective Progress Note Date: 12/27/20 This is a pleasant 70 years old female with past medical history of CVA/TIA, Di abetes Mellitus, GERD, Hyperlipidemia, Hypertension, s/p Right 5th toe am putation with stent to left iliac artery., neuropathy bilateral feet, pancreatitis X2, CVA with right sided weakness, celiac disease, chronic low back pain, duodenitis/duodenal ulcer, hiatal hernia,Back Surgery, Cholecystectomy, Heart Catheterization With Stent x3, , Status post lumbar fusion, spinal cord stimulator, She underwent successful balloon angioplasty of the right femoral artery by Dr. Cruz on 08/11/2020 Also she has history of fifth toe amputation by Dr. Padilla vascular surgery Vitals are stable Labs including CBC, INR, BMP and liver enzymes are unremarkable. Coronavirus nondetected Glucose elevated 303 EKG showing normal sinus rhythm at [address]-T changes lower extremity CTA : Patent right common and external renal iliac stents with mild diffuse narrowing, no significant flow stenosis on the left. Occluded right superficial femoral artery and right femoral artery stent. also was started on normal saline at 75 mL/h and consulted cardiology team. Also patient was started on heparin drip Emergency room he was started on heparin drip and pain management 12/27/2020 Patient is seen and evaluated and follow-up this morning continues to be on IV heparin with cardiology following and plan is for surgical intervention for the occluded right superficial femoral artery at the placement of the stent. Patient states her pain is controlled and she feels well today. Patient is nothing by mouth for the procedure and will be going to the ICU under close monitoring status post intervention. Will await surgical report. Labs: INR is 1.0, hemoglobin A1c is 10.8 Review of systems: Constitutional: No reports of fatigue, fever, or chills Cardiovascular: No reports of chest pain or palpitations Respiratory: No reports of shortness of breath or cough GI: No reports of nausea, vomiting, or diarrhea : No reports of dysuria or retention Neurovascular: No reports of weakness or numbness All medications have been reviewed Active Medications Hydrocodone Bitart/Acetaminophen (Hydrocodone/Apap 5-325mg 1 Each Tab) 1 each PO Q8HR PRN PRN Reason: Moderate Pain Last Admin: 12/27/20 13:59 Dose: 1 each Documented by: Aspirin (Aspirin 81 Mg) 81 mg PO DAILY [facility] Last Admin: 12/27/20 09:22 Dose: 81 mg Documented by: Atorvastatin Calcium (Atorvastatin 80 Mg Tab) 80 mg PO HS [facility] Last Admin: 12/26/20 20:20 Dose: 80 mg Documented by: Duloxetine HCl (Duloxetine Hcl 60 Mg Capsule.Dr) 60 mg PO HS [facility] Last Admin: 12/26/20 20:20 Dose: 60 mg Documented by: Gabapentin (Gabapentin 300 Mg Cap) 900 mg PO HS [facility] Last Admin: 12/26/20 20:20 Dose: 900 mg Documented by: Heparin Sodium (Porcine) (Heparin Sodium 1,000 Un/Ml (10ml Vl)) 0 unit IV PER PROTOCOL PRN; Protocol PRN Reason: Low PTT Last Admin: 12/27/20 00:45 Dose: 3,175 unit Documented by: Hydromorphone HCl (Hydromorphone 0.5 Mg/0.5 Ml Syringe) 0.5 mg IVP Q3HR PRN PRN Reason: Moderate Pain Last Admin: 12/26/20 23:13 Dose: 0.5 mg Documented by: Heparin Sodium/Sodium Chloride (25,000 unit/ Sodium Chloride) 250 mls @ 7.62 mls/hr IV .Q24H MAGALY; Protocol Last Titration: 12/27/20 06:51 Dose: 18 units/kg/hr, 11.431 mls/hr Documented by: Sodium Chloride (Saline 0.9%) 1,000 mls @ 75 mls/hr IV .[id number] [facility] Last Admin: 12/26/20 16:37 Dose: 75 mls/hr Documented by: Ampicillin Sodium/Sulbactam (Sodium 3 gm/ Sodium Chloride) 100 mls @ 200 mls/hr IVPB Q6HR [facility] Last Admin: 12/27/20 05:57 Dose: 200 mls/hr Documented by: Alteplase, Recombinant 10 mg/ (Sodium Chloride) 100 mls @ 10 mls/hr IA .Q10H ONE; Protocol Stop: 12/27/20 22:34 Last Admin: 12/27/20 13:12 Dose: 1 mls Documented by: Sodium Chloride 1,000 ml/ IV (Solution) 1,000 mls @ 63.503 mls/hr IV .[id number] [facility] Stop: 12/27/20 19:16 Last Admin: 12/27/20 13:59 Dose: 63.503 mls/hr Documented by: Insulin Aspart (Insulin Aspart (Novolog) 100 Unit/Ml Vial) 15 unit SQ AC-TID [facility] Last Admin: 12/27/20 13:58 Dose: Not Given Documented by: Insulin Aspart (Insulin Aspart (Novolog) 100 Unit/Ml Vial) 0 unit SQ ACHS [facility]; Protocol Last Admin: 12/27/20 09:40 Dose: Not Given Documented by: Insulin Detemir (Insulin Detemir (Levemir) 100 Unit/Ml Syr) 60 unit SQ HS [facility] Last Admin: 12/26/20 23:12 Dose: 60 unit Documented by: Metoprolol Tartrate (Metoprolol Tartrate 25 Mg Tab) 25 mg PO DAILY [facility] Miscellaneous Information (Rx Info: Iv Contrast Was Given 1 Each Misc) 1 each MISCELLANE DAILY PRN PRN Reason: Per Protocol Stop: 12/28/20 06:17 Naloxone HCl (Naloxone 0.4 Mg/Ml 1 Ml Vial) 0.2 mg IV Q2M PRN PRN Reason: Opioid Reversal Nitroglycerin (Nitroglycerin Sl Tabs 0.4 Mg Tab) 0.4 mg SUBLINGUAL Q5M PRN PRN Reason: Chest Pain Pantoprazole Sodium (Pantoprazole 40 Mg Tablet) 40 mg PO DAILY PRN PRN Reason: gerd Last Admin: 12/26/20 12:11 Dose: 40 mg Documented by: Prasugrel (Prasugrel 10 Mg Tab) 10 mg PO DAILY [facility] Last Admin: 12/27/20 09:22 Dose: 10 mg Documented by: Physical exam: GENERAL: The patient is alert and oriented x3, not in any acute distress. Well developed, well nourished. HEENT: Pupils are round and equally reacting to light. EOMI. No scleral icterus. No conjunctival pallor. Normocephalic, atraumatic. No pharyngeal erythema. No thyromegaly. CARDIOVASCULAR: S1 and S2 present. No murmurs, rubs, or gallops. PULMONARY: Chest is clear to auscultation, no wheezing or crackles. ABDOMEN: Soft, nontender, nondistended, normoactive bowel sounds. No palpable organomegaly. MUSCULOSKELETAL: No joint swelling or deformity. -EXTREMITIES: No cyanosis, clubbing, or pedal edema. Right lower extremity with some minimal redness and inflammation noted NEUROLOGICAL: Gross neurological examination did not reveal any focal deficits. SKIN: No rashes. No petechiae Assessment: Right fourth toe ischemia. With history of amputation of the right fifth toe. With CTA showing occluded right superficial femoral artery and distal right superficial femoral artery stent Peripheral vascular disease, status post stent to the left iliac artery Possible of cellulitis of right lower extremity Diabetes mellitus, with hyperglycemia, present on admission Hypertension Hyperlipidemia History of GERD History of stroke with right hemiparesis History of coronary artery disease status post stent 3 Hiatal hernia Chronic back pain, status post spinal effusion and spinal stimulator History of degenerative neuritis/duodenal ulcer History of celiac disease Diabetic neuropathy GI prophylaxis: PPI DVT prophylaxis: On IV heparin Full code Plan: Recommend to continue with current medication, management, and symptomatic treatment. Patient is scheduled for surgical intervention for occlusion of the right superficial femoral artery and distal right superficial femoral artery stent with cardiology and will be going to ICU status post intervention for close monitoring. Patient continues on IV heparin and will continue at this time. Patient has been started on IV Unasyn with infectious disease following a possibility of cellulitis of the right lower extremity. Blood sugars continue to be elevated and will continue with sliding scale, pre-meal, and long acting and continue with Accu-Cheks before meals and at bedtime. Will repeat a.m. labs and continue to monitor closely. Further recommendations to follow based on the clinical course of the patient. Prognosis is guarded. Objective - Vital Signs Vital signs: Vital Signs Temp 98.2 F 12/27/20 05:50 Pulse 71 12/27/20 05:50 Resp 16 12/27/20 05:50 BP 131/77 12/27/20 05:50 Pulse Ox 94 L 12/27/20 05:50 Intake & Output 12/26/20 12/27/20 12/27/20 18:59 06:59 18:59 Intake Total 84.709 138.532 Balance 84.709 138.532 Weight 63.503 kg Intake: Intake, IV Titration 84.709 138.532 Amount Heparin Sod,Pork in 0.45% 84.709 138.532 NaCl 25,000 unit In 0.45 % NaCl 1 250ml.bag @ 12 UNITS/KG/HR 7.62 mls/hr IV .Q24H MAGALY Rx#: [id number] Other: # Voids 2 # Bowel Movements 0 - Labs CBC & Chem 7: 11/07/21 06:08 12/26/20 06:08 Labs: Abnormal Lab Results - Last 24 Hours (Table) 12/26/20 12/26/20 12/26/20 Range/Units 11:46 17:29 22:59 APTT (22.0-30.0) sec POC Glucose (mg/dL) 266 H 216 H 304 H (75-99) mg/dL 12/26/20 12/27/20 12/27/20 Range/Units 23:50 05:56 07:13 APTT 31.3 H 45.8 H (22.0-30.0) sec POC Glucose (mg/dL) 173 H (75-99) mg/dL
--- NOTE | 2020-12-27 15:51 | IR ---
Fluoroscopy HISTORY: Peripheral vascular occlusive disease 7.8 minutes fluoroscopy time supplied to the referring clinician. 134 intraoperative C-arm images do cument the procedure. See dictated report from referring clinician.
[2020-12-27] MEDS: SODIUM CHLORIDE 0.9% 1,000 ML IV SCH (16:01)
[2020-12-27] MEDS: HYDROmorphone 0.5 MG/0.5 ML SYRINGE IVP PRN ×2 (16:22→22:27)
[2020-12-27 20:05] LABS: Glucose,Whole Blood 217 mg/dL (75-99)
[2020-12-27] MEDS: GABAPENTIN 300 MG CAP PO SCH (21:05)
[2020-12-27] MEDS: DULoxetine HCL 60 MG CAPSULE.DR PO SCH (21:06)
[2020-12-27] MEDS: ATORVASTATIN 80 MG TAB PO SCH (21:06)
--- NOTE | 2020-12-27 22:22 | PN ---
PROGRESS NOTE DATE OF SERVICE: 12/27/2020 REASON FOR FOLLOWUP: Right foot ischemic toe and question of cellulitis. INTERVAL HISTORY: The patient is seen on rounds this morning. The patient has been afebrile. Pain to the right foot is slightly decreased in intensity. Denies having any chest pain. No shortness of breath or cough. No nausea, vomiting. No abdominal pain or diarrhea. PHYSICAL EXAMINATION: Blood pressure is 127/81 with a pulse of 77, temperature 98.3. She is 93% on room air. General description is a middle-aged female lying in bed in no distress. Respiratory system: Unlabored breathing. Clear to auscultation anteriorly. Heart S1, S2. Regular rate and rhythm. Abdomen is soft, no tenderness. Right fourth toe did have discoloration. Right foot did have some swelling. No significant redness or drainage. LABS: . DIAGNOSTIC IMPRESSION AND PLAN: Patient with right foot pain in this patient who did have ischemic fourth and third toe, is being monitored closely by Cardiology Services. Plan for angiogram today. Covered empirically with Unasyn and monitor clinical course closely. MMODL / IJN: [id number] /
[2020-12-27] MEDS: INSULIN DETEMIR (LEVEMIR) 100 UNIT/ML SYR SQ SCH (22:27)
[2020-12-28] MEDS: SODIUM CHLORIDE 0.9% 1,000 ML IV SCH ×2 (01:58→14:29)
[2020-12-28 04:45] LABS: Basophils % (A) 1 %; Eosinophils # (A) 0.2 k/uL (0-0.7); Eosinophils % (A) 2 %; HCT 35.4 % (34.0-46.0); HGB 12.7 gm/dL (11.4-16.0); Hyperchromasia Slight; Lymphocytes # (A) 1.9 k/uL (1.0-4.8); Lymphocytes % (A) 30 %; MCH 30.7 pg (25.0-35.0); MCHC 35.8 g/dL (31.0-37.0); Mean Platelet Volume 7.4; Monocytes # (A) 0.3 k/uL (0-1.0); Monocytes % (A) 5 %; Neutrophils # (A) 3.8 k/uL (1.3-7.7); Neutrophils % (A) 61 %; Platelet Count 170 k/uL (150-450); Poikilocytosis Slight; RBC 4.12 m/uL (3.80-5.40); RDW 14.1 % (11.5-15.5); WBC 6.3 k/uL (3.8-10.6)
[2020-12-28] MEDS: AMPICILLIN-SULBACTAM 3 GM in SODIUM CHLORIDE 0.9% 100 ML IVPB SCH ×4 (04:58→22:41)
[2020-12-28 05:05] LABS: African American GFR (CKD) >90 (>60 ml/min/1.73 sqM); Anion Gap 8 mmol/L; Blood Urea Nitrogen 7 mg/dL (7-17); Calcium 8.1 mg/dL (8.4-10.2); Carbon Dioxide 23 mmol/L (22-30); Chloride 102 mmol/L (98-107); Glucose 302 mg/dL (74-99); Non-African American GFR(CKD) >90 (>60 ml/min/1.73 sqM); Potassium 3.8 mmol/L (3.5-5.1); Sodium 133 mmol/L (137-145)
[2020-12-28] MEDS: HEPARIN SODIUM 1,000 UN/ML (10ML VL) IV PRN (06:35)
[2020-12-28] MEDS: HEPARIN SOD,PORK IN 0.45% NACL 25,000 UNIT in 0.45% NACL 1 250ML.BAG IV SCH (06:35)
[2020-12-28] MEDS ORDERED: POTASSIUM CHLORIDE ER 20 MEQ TAB.ER PO SCH (07:00)
[2020-12-28 07:02] LABS: Glucose,Whole Blood 309 mg/dL (75-99)
[2020-12-28] MEDS: HYDROmorphone 0.5 MG/0.5 ML SYRINGE IVP PRN (08:25)
[2020-12-28] MEDS: INSULIN ASPART (NovoLOG) 100 UNIT/ML VIAL SQ SCH ×7 (08:33→20:35)
[2020-12-28] MEDS ORDERED: METOPROLOL TARTRATE 25 MG TAB PO SCH (09:00)
[2020-12-28] MEDS: ASPIRIN 81 MG PO SCH (09:01)
[2020-12-28] MEDS: PRASUGREL 10 MG TAB PO SCH (09:48)
[2020-12-28 10:53] VITALS: BMI 23.2
[2020-12-28 11:12] LABS: Glucose,Whole Blood 235 mg/dL (75-99)
[2020-12-28] MEDS ORDERED: LIDOCAINE 1% INJ 10MG/ML (20 ML MDV) ONE (12:20)
[2020-12-28] MEDS ORDERED: MIDAZOLAM 2 MG/2 ML VIAL IV ONE (12:43)
[2020-12-28] MEDS ORDERED: HYDROmorphone 1 MG/ML 1 ML SYRINGE IVP ONE (12:52)
[2020-12-28] MEDS ORDERED: niCARdipine 25 MG/10 ML VIAL ONE (13:14)
[2020-12-28] MEDS ORDERED: IOPAMIDOL-250 100ML BTL INTRAARTER ONE (13:18)
[2020-12-28] MEDS ORDERED: IV FLUID CONTINUATION 800 ML IV ONE (13:19)
[2020-12-28] MEDS ORDERED: HEPARIN SODIUM 1,000 UN/ML (10ML VL) ONE (13:28)
[2020-12-28] MEDS ORDERED: SODIUM CHLORIDE 0.9% 1,000 ML in EMPTY BAG 1 BAG IV SCH (13:30)
--- NOTE | 2020-12-28 13:50 | PCN ---
PROCEDURE NOTE PERCUTANEOUS PERIPHERAL INTERVENTION: DATE OF SERVICE: 12/28/2020 PERFORMING PHYSICIAN: Vipul Lock M.D. PROCEDURES PERFORMED: 1. Successful stenting of the mid right SFA using a 6 x 150 mm Viabahn self-expandable stent with an excellent angiographic result. 2. Successful stenting of the proximal right SFA using a 6 x 50 mm Viabahn self- expandable stent with an excellent angiographic result. 3. Right lower extremity angiogram. 4. Left common femoral artery angiogram. INDICATION: This is a 60-year-old female patient with smoking and diabetes and lower extremity peripheral arterial disease who was diagnosed with acute limb ischemia of the right leg and she underwent an angiogram yesterday and was found to have an occluded right SFA with a large thrombus burden. An infusion catheter was placed in the right SFA and she was dripped with tPA overnight. She was brought today for a second look. APPROACH: Left common femoral artery. COMPLICATIONS: None. LEVEL OF SEDATION: Moderate, with sedation length of 42 minutes. PROCEDURE DESCRIPTION: Please refer to my angiogram procedure yesterday. Subsequently I did advance an 0.035 wire in the infusion catheter, and the fusion catheter was pulled out over the wire. Subsequently I did perform right lower extremity angiogram which revealed three-vessel runoff below the knee on the right side with open mid right SFA and large thrombus burden involving the proximal right SFA. I decided to stent that by placing a covered stent. I placed initially a 6.0 x 150 and subsequently a 6.0 x 50 mm Viabahn covered self-expandable stent where the stent was positioned under fluoroscopic guidance and deployed under fluoroscopic guidance. Subsequently I did balloon angioplasty of the stent using a 5 mm balloon. The following angiogram showed excellent angiographic results with good flow below the knee. The procedure was completed without any complication. After that I did exchange my long sheath for a short sheath using 0.035 wire. After that I did selective left common femoral artery angiogram before the procedure was completed. POST-PROCEDURE MANAGEMENT: 1. Triple therapy. 2. Aggressive cholesterol control. 3. Smoking cessation was discussed with her again. 4. Follow up with the patient. MMODL / IJN: [id number] /
--- NOTE | 2020-12-28 13:57 | IR ---
Fluoroscopy HISTORY: Pain 5.7 minutes fluoroscopy time supplied to the referring clinician. 214 intraoperative C-arm images do cument the procedure. See dictated report from cardiology.
[2020-12-28 14:00] LABS: Glucose,Whole Blood 156 mg/dL (75-99)
[2020-12-28] MEDS ORDERED: ATROPINE SULFATE 0.1 MG/ML 10ML SYRINGE ONE (14:38)
[2020-12-28] MEDS ORDERED: SODIUM CHLORIDE 0.9% 500 ML 250 ML IV ONE (16:34)
[2020-12-28] MEDS: ALPRAZolam 0.25 MG TAB PO PRN ×2 (16:48→23:44)
[2020-12-28 16:59] LABS: Glucose,Whole Blood 219 mg/dL (75-99)
[2020-12-28] MEDS: APIXABAN 2.5 MG TABLET PO SCH ×2 (17:02→23:44)
--- NOTE | 2020-12-28 19:40 | P.PN ---
Subjective Progress Note Date: 12/28/20 This is a pleasant 70 years old female with past medical history of CVA/TIA, Di abetes Mellitus, GERD, Hyperlipidemia, Hypertension, s/p Right 5th toe am putation with stent to left iliac artery., neuropathy bilateral feet, pancreatitis X2, CVA with right sided weakness, celiac disease, chronic low back pain, duodenitis/duodenal ulcer, hiatal hernia,Back Surgery, Cholecystectomy, Heart Catheterization With Stent x3, , Status post lumbar fusion, spinal cord stimulator, She underwent successful balloon angioplasty of the right femoral artery by Dr. Cruz on 08/11/2020 Also she has history of fifth toe amputation by Dr. Padilla vascular surgery Vitals are stable Labs including CBC, INR, BMP and liver enzymes are unremarkable. Coronavirus nondetected Glucose elevated 303 EKG showing normal sinus rhythm at [address]-T changes lower extremity CTA : Patent right common and external renal iliac stents with mild diffuse narrowing, no significant flow stenosis on the left. Occluded right superficial femoral artery and right femoral artery stent. also was started on normal saline at 75 mL/h and consulted cardiology team. Also patient was started on heparin drip Emergency room he was started on heparin drip and pain management 12/27/2020 Patient is seen and evaluated and follow-up this morning continues to be on IV heparin with cardiology following and plan is for surgical intervention for the occluded right superficial femoral artery at the placement of the stent. Patient states her pain is controlled and she feels well today. Patient is nothing by mouth for the procedure and will be going to the ICU under close monitoring status post intervention. Will await surgical report. 12/28/2020 Patient is seen in follow up this morning and is being closely monitored in the IU. Patient is status post angiogram with TPA administration with Dr. Lock. Patient is scheduled to undergo further evaluation of the right artery and thrombus. Patient states that she is having tenderness and more pain to the right lower extremity. Patient also states that she did not have a very good night of sleep and feels exhausted. Will add melatonin. Patient continued on IV heparin with plans of switching over to eliquis. Case management following and patient states she has no prescription coverage. Patient has been buying her insulin at [facility] and is 70/30 and uses sliding scale. Will continue accuchecks with meals and at bedtime and continue current sliding scale and long acting and discuss further about medications on discharge. Labs: White blood count is 6.3, hemoglobin is 12.7, platelets are 170, sodium is 133, potassium is 3.8, BUN 7, creatinine 0.39, calcium 8.1, blood sugars have been variable Review of systems: Constitutional: reports of fatigue, no reports of fever, or chills Cardiovascular: No reports of chest pain or palpitations Respiratory: No reports of shortness of breath or cough GI: No reports of nausea, vomiting, or diarrhea : No reports of dysuria or retention Neurovascular: No reports of weakness or numbness, reports right lower extremity pain and discomfort All medications have been reviewed Active Medications Hydrocodone Bitart/Acetaminophen (Hydrocodone/Apap 5-325mg 1 Each Tab) 1 each PO Q8HR PRN PRN Reason: Moderate Pain Last Admin: 12/27/20 13:59 Dose: 1 each Documented by: Alprazolam (Alprazolam 0.25 Mg Tab) 0.25 mg PO TID PRN PRN Reason: Anxiety Last Admin: 12/28/20 16:48 Dose: 0.25 mg Documented by: Apixaban (Apixaban 2.5 Mg Tablet) 2.5 mg PO BID [facility]; Protocol Last Admin: 12/28/20 17:02 Dose: 2.5 mg Documented by: Aspirin (Aspirin 81 Mg) 81 mg PO DAILY [facility] Last Admin: 12/28/20 09:01 Dose: 81 mg Documented by: Atorvastatin Calcium (Atorvastatin 80 Mg Tab) 80 mg PO [facility] Last Admin: 12/27/20 21:06 Dose: 80 mg Documented by: Duloxetine HCl (Duloxetine Hcl 60 Mg Capsule.Dr) 60 mg PO [facility] Last Admin: 12/27/20 21:06 Dose: 60 mg Documented by: Gabapentin (Gabapentin 300 Mg Cap) 900 mg PO [facility] Last Admin: 12/27/20 21:05 Dose: 900 mg Documented by: Hydromorphone HCl (Hydromorphone 0.5 Mg/0.5 Ml Syringe) 0.5 mg IVP Q3HR PRN PRN Reason: Moderate Pain Last Admin: 12/28/20 08:25 Dose: 0.5 mg Documented by: Sodium Chloride (Saline 0.9%) 1,000 mls @ 75 mls/hr IV .[id number] [facility] Last Admin: 12/28/20 14:29 Dose: 75 mls/hr Documented by: Ampicillin Sodium/Sulbactam (Sodium 3 gm/ Sodium Chloride) 100 mls @ 200 mls/hr IVPB Q6H [facility] Last Admin: 12/28/20 17:01 Dose: 200 mls/hr Documented by: Insulin Aspart (Insulin Aspart (Novolog) 100 Unit/Ml Vial) 15 unit SQ AC-TID [facility] Last Admin: 12/28/20 17:02 Dose: 15 unit Documented by: Insulin Aspart (Insulin Aspart (Novolog) 100 Unit/Ml Vial) 0 unit SQ ACHS [facility]; Protocol Last Admin: 12/28/20 17:05 Dose: 3 unit Documented by: Insulin Detemir (Insulin Detemir (Levemir) 100 Unit/Ml Syr) 60 unit SQ HS [facility] Last Admin: 12/27/20 22:27 Dose: 60 unit Documented by: Melatonin (Melatonin 3 Mg Tablet) 6 mg PO HS PRN PRN Reason: Insomnia Naloxone HCl (Naloxone 0.4 Mg/Ml 1 Ml Vial) 0.2 mg IV Q2M PRN PRN Reason: Opioid Reversal Nitroglycerin (Nitroglycerin Sl Tabs 0.4 Mg Tab) 0.4 mg SUBLINGUAL Q5M PRN PRN Reason: Chest Pain Pantoprazole Sodium (Pantoprazole 40 Mg Tablet) 40 mg PO DAILY PRN PRN Reason: gerd Last Admin: 12/26/20 12:11 Dose: 40 mg Documented by: Prasugrel (Prasugrel 10 Mg Tab) 10 mg PO DAILY [facility] Last Admin: 12/28/20 09:48 Dose: 10 mg Documented by: Physical exam: GENERAL: The patient is alert and oriented x3, not in any acute distress. Well developed, well nourished. HEENT: Pupils are round and equally reacting to light. EOMI. No scleral icterus. No conjunctival pallor. Normocephalic, atraumatic. No pharyngeal erythema. No thyromegaly. CARDIOVASCULAR: S1 and S2 present. No murmurs, rubs, or gallops. PULMONARY: Chest is clear to auscultation, no wheezing or crackles. ABDOMEN: Soft, nontender, nondistended, normoactive bowel sounds. No palpable organomegaly. MUSCULOSKELETAL: No joint swelling or deformity. EXTREMITIES: No cyanosis, clubbing, or pedal edema. Right lower extremity with some minimal redness and inflammation noted NEUROLOGICAL: Gross neurological examination did not reveal any focal deficits. SKIN: No rashes. No petechiae Assessment: Right fourth toe ischemia. With history of amputation of the right fifth toe. With CTA showing occluded right superficial femoral artery and distal right superficial femoral artery stent status post angiogram of the right lower extremity Peripheral vascular disease, status post stent to the left iliac artery Possible of cellulitis of right lower extremity Diabetes mellitus, with hyperglycemia, present on admission Hypertension Hyperlipidemia History of GERD History of stroke with right hemiparesis History of coronary artery disease status post stent 3 Hiatal hernia Chronic back pain, status post spinal effusion and spinal stimulator History of degenerative neuritis/duodenal ulcer History of celiac disease Diabetic neuropathy GI prophylaxis: PPI DVT prophylaxis: On IV heparin Full code Plan: Recommend to continue with current medication, management, and symptomatic treatment. Patient underwent surgical intervention for occlusion of the right superficial femoral artery and distal right superficial femoral artery stent with Dr. Lock and is scheduled to go to the cheesemaking laborer for reevaluation as she was given TPA to the thrombus of the right superficial artery. Patient is currently being closely monitored in the ICU status post intervention. Patient continues on IV heparin and will continue at this time. Possible transition to Eliquis this evening. Patient has been started on IV Unasyn with infectious disease following a possibility of cellulitis of the right lower extremity. Blood sugars continue to be elevated and will continue with sliding scale, pre-meal, and long acting and continue with Accu-Cheks before meals and at bedtime. Need to discuss further with case management and patient as she has been using novolog 70/30 from [email or web address] as she has no medication coverage. Will repeat a.m. labs and continue to monitor closely. Further recommendations to follow based on the clinical course of the patient. Prognosis is guarded. Objective - Vital Signs Vital signs: Vital Signs Temp 98.6 F 12/28/20 04:00 Pulse 78 12/28/20 07:00 Resp 22 12/28/20 07:00 BP 111/68 12/28/20 07:00 Pulse Ox 94 L 12/28/20 07:00 Intake & Output 12/27/20 12/28/20 12/28/20 18:59 06:59 18:59 Intake Total 252 1338.569 75 Output Total 400 1500 0 Balance -148 -161.431 75 Weight 69.3 kg Intake: IV 102 1025 75 Ampicillin-Sulbactam 3 gm 200 In Sodium Chloride 0.9% 100 ml @ 200 mls/hr IVPB Q6H [facility] Rx#:[id number] Sodium Chloride 0.9% 1, 825 75 000 ml @ 75 mls/hr IV . [id number] [facility] Rx#:[id number] Intake, IV Titration 150 313.569 Amount Heparin Sod,Pork in 0.45% 238.569 NaCl 25,000 unit In 0.45 % NaCl 1 250ml.bag @ 12 UNITS/KG/HR 7.62 mls/hr IV .Q24H [facility] Rx#: [id number] Sodium Chloride 0.9% 1, 150 75 000 ml @ 75 mls/hr IV . [id number] [facility] Rx#:[id number] Output: Urine 400 1500 0 Other: Voiding Method External Catheter External Catheter # Voids 1 - Labs CBC & Chem 7: 12/28/20 04:00 12/28/20 04:00 Labs: Abnormal Lab Results - Last 24 Hours (Table) 12/27/20 12/27/20 12/27/20 Range/Units 05:56 13:51 15:40 Sodium (137-145) mmol/L Creatinine (0.52-1.04) mg/dL Glucose (74-99) mg/dL POC Glucose (mg/dL) 105 H 208 H (75-99) mg/dL Hemoglobin A1c 10.8 H (4.0-6.0) % Calcium (8.4-10.2) mg/dL 12/27/20 12/28/20 12/28/20 Range/Units 20:04 04:00 07:00 Sodium 133 L (137-145) mmol/L Creatinine 0.39 L (0.52-1.04) mg/dL Glucose 302 H (74-99) mg/dL POC Glucose (mg/dL) 217 H 309 H (75-99) mg/dL Hemoglobin A1c (4.0-6.0) % Calcium 8.1 L (8.4-10.2) mg/dL
[2020-12-28] MEDS: INSULIN DETEMIR (LEVEMIR) 100 UNIT/ML SYR SQ SCH (20:35)
[2020-12-28] MEDS: ATORVASTATIN 80 MG TAB PO SCH (20:35)
[2020-12-28] MEDS: GABAPENTIN 300 MG CAP PO SCH (20:35)
[2020-12-28] MEDS: DULoxetine HCL 60 MG CAPSULE.DR PO SCH (20:35)
[2020-12-28 20:37] LABS: Glucose,Whole Blood 178 mg/dL (75-99)
--- NOTE | 2020-12-28 22:54 | PN ---
PROGRESS NOTE DATE OF SERVICE: 12/28/2020 REASON FOR FOLLOWUP: Right foot ischemia and a question of cellulitis. INTERVAL HISTORY: The patient is afebrile. She is breathing comfortably. Overall pain and discomfort to the right foot slightly decreased. No chest pain, shortness of breath or cough. No abdominal pain or diarrhea. PHYSICAL EXAMINATION: Blood pressure 108/66, pulse of 72, temperature 98.1. She is 99% on room air. General description is a middle-aged female lying in bed in no distress. Respiratory system: Unlabored breathing, clear to auscultation anteriorly. Heart S1, S2. Regular rate and rhythm. Abdomen soft, no tenderness. Right foot minimal swelling and redness. No drainage. LABS: No new labs have been obtained today. DIAGNOSTIC IMPRESSION AND PLAN: Patient with right fourth and third toe ischemia and a question of possible cellulitis. The patient is covered with empiric Unasyn. Clinical suspicion low for underlying infection, but will be monitored closely. Continue with supportive care. MMODL / IJN: [id number] /
[2020-12-29] MEDS: AMPICILLIN-SULBACTAM 3 GM in SODIUM CHLORIDE 0.9% 100 ML IVPB SCH ×4 (03:24→23:49)
[2020-12-29] MEDS: SODIUM CHLORIDE 0.9% 1,000 ML IV SCH ×2 (03:26→16:59)
[2020-12-29 06:18] LABS: African American GFR (CKD) >90 (>60 ml/min/1.73 sqM); Non-African American GFR(CKD) >90 (>60 ml/min/1.73 sqM)
[2020-12-29 06:32] LABS: Glucose,Whole Blood 240 mg/dL (75-99)
[2020-12-29] MEDS: INSULIN ASPART (NovoLOG) 100 UNIT/ML VIAL SQ SCH ×7 (06:55→23:49)
[2020-12-29] MEDS: HYDROcodone/APAP 5-325MG 1 EACH TAB PO PRN (08:38)
[2020-12-29] MEDS: APIXABAN 2.5 MG TABLET PO SCH ×2 (08:38→23:46)
[2020-12-29] MEDS: PRASUGREL 10 MG TAB PO SCH (08:38)
[2020-12-29] MEDS: ASPIRIN 81 MG PO SCH (08:38)
[2020-12-29] MEDS: HYDROmorphone 0.5 MG/0.5 ML SYRINGE IVP PRN ×2 (10:14→14:38)
[2020-12-29 11:33] LABS: Glucose,Whole Blood 207 mg/dL (75-99)
[2020-12-29 17:23] LABS: Glucose,Whole Blood 340 mg/dL (75-99)
[2020-12-29] MEDS: ALPRAZolam 0.25 MG TAB PO PRN (19:25)
[2020-12-29 20:08] LABS: Glucose,Whole Blood 314 mg/dL (75-99)
--- NOTE | 2020-12-29 22:37 | PN ---
PROGRESS NOTE DATE OF SERVICE: 12/29/2020 REASON FOR FOLLOWUP: Right foot cellulitis. INTERVAL HISTORY: The patient is afebrile. The patient is breathing comfortably. The patient denies having any chest pain or shortness of breath or cough. Some discomfort in the right foot; no worsening, though. No nausea, no vomiting. No diarrhea. PHYSICAL EXAMINATION: Blood pressure 110/62 with a pulse of 74, temperature 98.6. She is 96% on room air. General description is a middle-aged female lying in bed in no distress. Respiratory system: Unlabored breathing, clear to auscultation anteriorly. Heart S1, S2. Regular rate and rhythm. Abdomen soft, no tenderness. Right foot: No significant or drainage was noted. LABS: No new labs have been obtained today. DIAGNOSTIC IMPRESSION AND PLAN: Patient with right foot ischemia, especially involving the right fourth toe, status post intervention. Patient is currently covered with Unasyn; to continue while monitoring clinical course closely. Continue with supportive care. MMODL / IJN: [id number] /
[2020-12-29] MEDS: ATORVASTATIN 80 MG TAB PO SCH ×2 (23:47→23:48)
[2020-12-29] MEDS: GABAPENTIN 300 MG CAP PO SCH (23:47)
[2020-12-29] MEDS: DULoxetine HCL 60 MG CAPSULE.DR PO SCH ×2 (23:47→23:48)
[2020-12-29] MEDS: INSULIN DETEMIR (LEVEMIR) 100 UNIT/ML SYR SQ SCH (23:48)
[2020-12-30] MEDS: HYDROcodone/APAP 5-325MG 1 EACH TAB PO PRN ×2 (00:28→08:29)
[2020-12-30] MEDS: HYDROmorphone 0.5 MG/0.5 ML SYRINGE IVP PRN ×4 (01:03→15:26)
--- NOTE | 2020-12-30 01:42 | P.PN ---
Subjective Progress Note Date: 12/29/20 This is a pleasant 70 years old female with past medical history of CVA/TIA, Di abetes Mellitus, GERD, Hyperlipidemia, Hypertension, s/p Right 5th toe am putation with stent to left iliac artery., neuropathy bilateral feet, pancreatitis X2, CVA with right sided weakness, celiac disease, chronic low back pain, duodenitis/duodenal ulcer, hiatal hernia,Back Surgery, Cholecystectomy, Heart Catheterization With Stent x3, , Status post lumbar fusion, spinal cord stimulator, She underwent successful balloon angioplasty of the right femoral artery by Dr. Cruz on 08/11/2020 Also she has history of fifth toe amputation by Dr. Padilla vascular surgery Vitals are stable Labs including CBC, INR, BMP and liver enzymes are unremarkable. Coronavirus nondetected Glucose elevated 303 EKG showing normal sinus rhythm at [address]-T changes lower extremity CTA : Patent right common and external renal iliac stents with mild diffuse narrowing, no significant flow stenosis on the left. Occluded right superficial femoral artery and right femoral artery stent. also was started on normal saline at 75 mL/h and consulted cardiology team. Also patient was started on heparin drip Emergency room he was started on heparin drip and pain management 12/27/2020 Patient is seen and evaluated and follow-up this morning continues to be on IV heparin with cardiology following and plan is for surgical intervention for the occluded right superficial femoral artery at the placement of the stent. Patient states her pain is controlled and she feels well today. Patient is nothing by mouth for the procedure and will be going to the ICU under close monitoring status post intervention. Will await surgical report. 12/28/2020 Patient is seen in follow up this morning and is being closely monitored in the IU. Patient is status post angiogram with TPA administration with Dr. Lock. Patient is scheduled to undergo further evaluation of the right artery and thrombus. Patient states that she is having tenderness and more pain to the right lower extremity. Patient also states that she did not have a very good night of sleep and feels exhausted. Will add melatonin. Patient continued on IV heparin with plans of switching over to eliquis. Case management following and patient states she has no prescription coverage. Patient has been buying her insulin at [facility] and is 70/30 and uses sliding scale. Will continue accuchecks with meals and at bedtime and continue current sliding scale and long acting and discuss further about medications on discharge. 12/29/2020 Patient is seen and evaluated in the ICU this morning and awaiting transfer to [address] [place] [address]. Cardiology following closely and infectious disease as well for possible cellulitis of the right lower extremity. Patient on eliquis and continued on aspirin and effient. Patient blood sugars continue to be elevated and will continue with sliding scale, pre meal and long acting while hospitalized. Discussed with case management about discharge medications given patient has no medication coverage. Patient was up today and will have PT evaluate the patient. Review of systems: Constitutional: no reports of fatigue, no reports of fever, or chills Cardiovascular: No reports of chest pain or palpitations Respiratory: No reports of shortness of breath or cough GI: No reports of nausea, vomiting, or diarrhea : No reports of dysuria or retention Neurovascular: No reports of weakness or numbness, reports right lower extremity pain and discomfort All medications have been reviewed Active Medications Hydrocodone Bitart/Acetaminophen (Hydrocodone/Apap 5-325mg 1 Each Tab) 1 each PO Q8HR PRN PRN Reason: Moderate Pain Last Admin: 12/30/20 00:28 Dose: 1 each Documented by: Alprazolam (Alprazolam 0.25 Mg Tab) 0.25 mg PO TID PRN PRN Reason: Anxiety Last Admin: 12/29/20 19:25 Dose: 0.25 mg Documented by: Apixaban (Apixaban 2.5 Mg Tablet) 2.5 mg PO BID [facility]; Protocol Last Admin: 12/29/20 23:46 Dose: 2.5 mg Documented by: Aspirin (Aspirin 81 Mg) 81 mg PO DAILY [facility] Last Admin: 12/29/20 08:38 Dose: 81 mg Documented by: Atorvastatin Calcium (Atorvastatin 80 Mg Tab) 80 mg PO HS [facility] Last Admin: 12/29/20 23:48 Dose: 80 mg Documented by: Duloxetine HCl (Duloxetine Hcl 60 Mg Capsule.Dr) 60 mg PO [facility] Last Admin: 12/29/20 23:48 Dose: 60 mg Documented by: Gabapentin (Gabapentin 300 Mg Cap) 900 mg PO [facility] Last Admin: 12/29/20 23:47 Dose: 900 mg Documented by: Hydromorphone HCl (Hydromorphone 0.5 Mg/0.5 Ml Syringe) 0.5 mg IVP Q3HR PRN PRN Reason: Moderate Pain Last Admin: 12/30/20 01:03 Dose: 0.5 mg Documented by: Sodium Chloride (Saline 0.9%) 1,000 mls @ 75 mls/hr IV .[id number] [facility] Last Admin: 12/29/20 16:59 Dose: Not Given Documented by: Ampicillin Sodium/Sulbactam (Sodium 3 gm/ Sodium Chloride) 100 mls @ 200 mls/hr IVPB Q6H [facility] Last Admin: 12/29/20 23:49 Dose: 200 mls/hr Documented by: Insulin Aspart (Insulin Aspart (Novolog) 100 Unit/Ml Vial) 15 unit SQ AC-TID [facility] Last Admin: 12/29/20 17:10 Dose: 15 unit Documented by: Insulin Aspart (Insulin Aspart (Novolog) 100 Unit/Ml Vial) 0 unit SQ ACHS [facility]; Protocol Last Admin: 12/29/20 23:49 Dose: 5 unit Documented by: Insulin Detemir (Insulin Detemir (Levemir) 100 Unit/Ml Syr) 60 unit SQ HS [facility] Last Admin: 12/29/20 23:48 Dose: 60 unit Documented by: Melatonin (Melatonin 3 Mg Tablet) 6 mg PO HS PRN PRN Reason: Insomnia Naloxone HCl (Naloxone 0.4 Mg/Ml 1 Ml Vial) 0.2 mg IV Q2M PRN PRN Reason: Opioid Reversal Nitroglycerin (Nitroglycerin Sl Tabs 0.4 Mg Tab) 0.4 mg SUBLINGUAL Q5M PRN PRN Reason: Chest Pain Pantoprazole Sodium (Pantoprazole 40 Mg Tablet) 40 mg PO DAILY PRN PRN Reason: gerd Last Admin: 12/26/20 12:11 Dose: 40 mg Documented by: Prasugrel (Prasugrel 10 Mg Tab) 10 mg PO DAILY [facility] Last Admin: 12/29/20 08:38 Dose: 10 mg Documented by: Physical exam: GENERAL: The patient is alert and oriented x3, not in any acute distress. Well developed, well nourished. HEENT: Pupils are round and equally reacting to light. EOMI. No scleral icterus. No conjunctival pallor. Normocephalic, atraumatic. No pharyngeal erythema. No thyromegaly. CARDIOVASCULAR: S1 and S2 present. No murmurs, rubs, or gallops. PULMONARY: Chest is clear to auscultation, no wheezing or crackles. ABDOMEN: Soft, nontender, nondistended, normoactive bowel sounds. No palpable organomegaly. MUSCULOSKELETAL: No joint swelling or deformity. EXTREMITIES: No cyanosis, clubbing, or pedal edema. Right lower extremity with some minimal redness and inflammation noted, appears slightly improved NEUROLOGICAL: Gross neurological examination did not reveal any focal deficits. SKIN: No rashes. No petechiae Assessment: Right fourth toe ischemia. With history of amputation of the right fifth toe. With CTA showing occluded right superficial femoral artery and distal right superficial femoral artery stent status post angiogram of the right lower extremity Peripheral vascular disease, status post stent to the left iliac artery Possible cellulitis of right lower extremity Diabetes mellitus, with hyperglycemia, present on admission Hypertension Hyperlipidemia History of GERD History of stroke with right hemiparesis History of coronary artery disease status post stent 3 Hiatal hernia Chronic back pain, status post spinal effusion and spinal stimulator History of degenerative neuritis/duodenal ulcer History of celiac disease Diabetic neuropathy GI prophylaxis: PPI DVT prophylaxis: On eliquis Full code Plan: Recommend to continue with current medication, management, and symptomatic treatment. Patient underwent surgical intervention for occlusion of the right superficial femoral artery and distal right superficial femoral artery stent with Dr. Lock and was given TPA to the thrombus of the right superficial artery. Patient is currently being closely monitored and transitioned to Eliquis . Patient has been on IV Unasyn with infectious disease following for a possibility of cellulitis of the right lower extremity. Blood sugars continue to be elevated and will continue with sliding scale, pre-meal, and long acting and continue with Accu-Cheks before meals and at bedtime. Discussed with case management and patient as she has been using novolog 70/30 with a sliding scale. Will add basaglar for discharge. Further recommendations to follow based on the clinical course of the patient. Prognosis is guarded. Will discuss with cardiology and infectious disease about discharge planning. Objective - Vital Signs Vital signs: Vital Signs Temp 98.3 F 12/29/20 04:00 Pulse 74 12/29/20 04:00 Resp 14 12/29/20 04:00 BP 120/81 12/29/20 04:00 Pulse Ox 95 12/29/20 04:00 Intake & Output 12/28/20 12/29/20 12/29/20 18:59 06:59 18:59 Intake Total 1975 75 Output Total 1400 1750 1000 Balance 688 -8529 -9429 Weight 69.3 kg 71.3 kg Intake: IV 1125 75 Ampicillin-Sulbactam 3 gm 100 In Sodium Chloride 0.9% 100 ml @ 200 mls/hr IVPB Q6H [facility] Rx#:[id number] Sodium Chloride 0.9% 1, 825 75 000 ml @ 75 mls/hr IV . [id number] [facility] Rx#:[id number] Intake, IV Titration 850 Amount Ampicillin-Sulbactam 3 gm 100 In Sodium Chloride 0.9% 100 ml @ 200 mls/hr IVPB Q6H [facility] Rx#:[id number] Sodium Chloride 0.9% 500 750 ml 250 ml @ 999 mls/hr IV .Q16M [facility] Rx#:[id number] Output: Urine 1400 1750 1000 Other: Voiding Method External Catheter Bedside Commode ABP, PAP, CO, CI - Last Documented Arterial Blood Pressure 130/66 - Labs CBC & Chem 7: 12/28/20 04:00 12/29/20 05:21 Labs: Abnormal Lab Results - Last 24 Hours (Table) 12/28/20 12/28/20 12/28/20 Range/Units 11:11 13:58 16:58 Creatinine (0.52-1.04) mg/dL POC Glucose (mg/dL) 235 H 156 H 219 H (75-99) mg/dL 12/28/20 12/29/20 12/29/20 Range/Units 20:24 05:21 06:30 Creatinine 0.51 L (0.52-1.04) mg/dL POC Glucose (mg/dL) 178 H 240 H (75-99) mg/dL
[2020-12-30 06:05] LABS: Glucose,Whole Blood 263 mg/dL (75-99)
[2020-12-30] MEDS: AMPICILLIN-SULBACTAM 3 GM in SODIUM CHLORIDE 0.9% 100 ML IVPB SCH ×4 (06:35→21:42)
[2020-12-30] MEDS: INSULIN ASPART (NovoLOG) 100 UNIT/ML VIAL SQ SCH ×7 (06:35→21:41)
[2020-12-30] MEDS: SODIUM CHLORIDE 0.9% 1,000 ML IV SCH ×2 (08:01→17:35)
[2020-12-30] MEDS: PRASUGREL 10 MG TAB PO SCH (08:25)
[2020-12-30] MEDS: APIXABAN 2.5 MG TABLET PO SCH ×2 (08:25→21:40)
[2020-12-30] MEDS: ASPIRIN 81 MG PO SCH (08:25)
[2020-12-30 11:41] LABS: Glucose,Whole Blood 226 mg/dL (75-99)
--- NOTE | 2020-12-30 13:09 | P.PN ---
Subjective Progress Note Date: 12/30/20 HISTORY OF PRESENTING ILLNESS Patient is a pleasant 60-year-old female with history of coronary artery dis ease, PAD, diabetes mellitus, hyperlipidemia, tobacco abuse who presents secondary to right lower extremity pain and discoloration of her toe. Patient does have a history of PAD with prior right SFA stenting 07/2020. She had done very well since that standpoint however over the last 2 weeks has noticed increased pain even while at rest. She therefore came to the emergency department 12/13/2020 where a lower extremity venous ultrasound was performed however there was also note of a right SFA occluded stent. Patient was then scheduled to follow-up with Dr. Lock however was not able to. She was restarted on Effient. She had pain which was worse when she was having her leg dependent however over the last 24-48 hours she has noticed that the right toe is somewhat more purple and dusky and therefore presented to emergency department. She admits pain has been fairly well controlled with morphine. She was started on a heparin drip. A CTA was performed which showed patent right common and external iliac stents, occluded right SFA and distal right SFA stent, multiple mild stenoses on the left with 3 vessel runoff bilaterally. 12/30/2020 Patient underwent stenting of the right SFA with Dr. Lock on 12-28-2020. Patient reports she has more sensation to her right foot today. Vital signs are stable. She is currently on Eliquis, effient, and aspirin. Per case management, the patient does not have rx insurance coverage. PHYSICAL EXAMINATION Vital signs reviewed. CONSTITUTIONAL: No apparent distress. HEENT: Head is normocephalic. Pupils are equal, round. Sclerae anicteric. Mucous membranes of the mouth are moist. No JVD. No carotid bruit. CHEST EXAMINATION: Lungs are clear to auscultation. No chest wall tenderness is noted on palpation or with deep breathing. HEART EXAMINATION: Regular rate and rhythm. S1, S2 heard. No murmurs, gallops or rub. ABDOMEN: Soft, nontender. Positive bowel sounds. EXTREMITIES: Cyanotic 4th right toe. Positive fifth toe amputation. Patient with wound to lateral aspect of right foot. NEUROLOGIC EXAMINATION: Patient is awake, alert and oriented x3. ASSESSMENT 1. Acute limb ischemia 2. History of PAD status post right SFA stenting 3. Coronary artery disease 4. Hypertension 5. Hyperlipidemia 6. Diabetes mellitus PLAN Continue with Tara. Patient will receive 1 month free at discharge. Continue aspirin Discontinue Effient. Change to Plavix 75mg. Further recommendations pending patient course Nurse practitioner note has been reviewed by physician. Signing provider agrees with the documented findings, assessment, and plan of care. Objective - Vital Signs Vital signs: Vital Signs Temp 98.6 F 12/30/20 12:00 Pulse 111 H 12/30/20 12:00 Resp 16 12/30/20 12:00 BP 101/57 12/30/20 12:00 Pulse Ox 97 12/30/20 12:00 Intake & Output 12/29/20 12/30/20 12/30/20 18:59 06:59 18:59 Intake Total 480 480 180 Output Total 1000 Balance -520 480 180 Weight 67.9 kg Intake: Oral 480 480 180 Output: Urine 1000 Other: Voiding Method Toilet Toilet # Voids 1 1 ABP, PAP, CO, CI - Last Documented Arterial Blood Pressure 130/66 - Labs CBC & Chem 7: 12/28/20 04:00 12/29/20 05:21 Labs: Abnormal Lab Results - Last 24 Hours (Table) 12/29/20 12/29/20 12/30/20 Range/Units 17:08 20:07 06:03 POC Glucose (mg/dL) 340 H 314 H 263 H (75-99) mg/dL 12/30/20 Range/Units 11:39 POC Glucose (mg/dL) 226 H (75-99) mg/dL
[2020-12-30 16:30] LABS: Glucose,Whole Blood 207 mg/dL (75-99)
[2020-12-30 21:11] LABS: Glucose,Whole Blood 232 mg/dL (75-99)
[2020-12-30] MEDS: GABAPENTIN 300 MG CAP PO SCH (21:39)
[2020-12-30] MEDS: INSULIN DETEMIR (LEVEMIR) 100 UNIT/ML SYR SQ SCH (21:40)
[2020-12-30] MEDS: ALPRAZolam 0.25 MG TAB PO PRN (21:40)
[2020-12-30] MEDS: ATORVASTATIN 80 MG TAB PO SCH (21:40)
[2020-12-30] MEDS: DULoxetine HCL 60 MG CAPSULE.DR PO SCH (21:40)
--- NOTE | 2020-12-30 22:38 | PN ---
PROGRESS NOTE DATE OF SERVICE: 12/30/2020 REASON FOR FOLLOWUP: Right foot ischemia and a question of cellulitis. INTERVAL HISTORY: The patient is afebrile. She is breathing comfortably. Still complaining of pain and discomfort in the right foot, though slightly decreased in intensity. The fourth toe remains necrotic. No nausea, no vomiting. No abdominal pain or diarrhea. PHYSICAL EXAMINATION: Blood pressure 96/59, pulse of 74, temperature 98.3. She is 95% on room air. General description is a middle-aged female lying in bed in no distress. Respiratory system: Unlabored breathing, clear to auscultation anteriorly. Heart S1, S2. Regular rate and rhythm. Abdomen soft. Right foot has some swelling, redness and warmth. Fourth toe remains necrotic, but no worsening. DIAGNOSTIC IMPRESSION AND PLAN: Patient with right fourth toe ischemia along with concern for cellulitis in this patient covered with Unasyn. May consider a short course of oral Augmentin on discharge. Continue with supportive care. MMODL / IJN: [id number] /
[2020-12-31] MEDS: AMPICILLIN-SULBACTAM 3 GM in SODIUM CHLORIDE 0.9% 100 ML IVPB SCH ×4 (04:25→21:47)
[2020-12-31 06:15] LABS: Glucose,Whole Blood 232 mg/dL (75-99)
[2020-12-31] MEDS: INSULIN ASPART (NovoLOG) 100 UNIT/ML VIAL SQ SCH ×7 (06:21→21:46)
--- NOTE | 2020-12-31 09:11 | P.PN ---
Subjective Progress Note Date: 12/30/20 This is a pleasant 70 years old female with past medical history of CVA/TIA, Di abetes Mellitus, GERD, Hyperlipidemia, Hypertension, s/p Right 5th toe am putation with stent to left iliac artery., neuropathy bilateral feet, pancreatitis X2, CVA with right sided weakness, celiac disease, chronic low back pain, duodenitis/duodenal ulcer, hiatal hernia,Back Surgery, Cholecystectomy, Heart Catheterization With Stent x3, , Status post lumbar fusion, spinal cord stimulator, She underwent successful balloon angioplasty of the right femoral artery by Dr. Cruz on 08/11/2020 Also she has history of fifth toe amputation by Dr. Padilla vascular surgery Vitals are stable Labs including CBC, INR, BMP and liver enzymes are unremarkable. Coronavirus nondetected Glucose elevated 303 EKG showing normal sinus rhythm at [address]-T changes lower extremity CTA : Patent right common and external renal iliac stents with mild diffuse narrowing, no significant flow stenosis on the left. Occluded right superficial femoral artery and right femoral artery stent. also was started on normal saline at 75 mL/h and consulted cardiology team. Also patient was started on heparin drip Emergency room he was started on heparin drip and pain management 12/27/2020 Patient is seen and evaluated and follow-up this morning continues to be on IV heparin with cardiology following and plan is for surgical intervention for the occluded right superficial femoral artery at the placement of the stent. Patient states her pain is controlled and she feels well today. Patient is nothing by mouth for the procedure and will be going to the ICU under close monitoring status post intervention. Will await surgical report. 12/28/2020 Patient is seen in follow up this morning and is being closely monitored in the IU. Patient is status post angiogram with TPA administration with Dr. Lock. Patient is scheduled to undergo further evaluation of the right artery and thrombus. Patient states that she is having tenderness and more pain to the right lower extremity. Patient also states that she did not have a very good night of sleep and feels exhausted. Will add melatonin. Patient continued on IV heparin with plans of switching over to eliquis. Case management following and patient states she has no prescription coverage. Patient has been buying her insulin at [facility] and is 70/30 and uses sliding scale. Will continue accuchecks with meals and at bedtime and continue current sliding scale and long acting and discuss further about medications on discharge. 12/29/2020 Patient is seen and evaluated in the ICU this morning and awaiting transfer to [address] [place] [address]. Cardiology following closely and infectious disease as well for possible cellulitis of the right lower extremity. Patient on eliquis and continued on aspirin and effient. Patient blood sugars continue to be elevated and will continue with sliding scale, pre meal and long acting while hospitalized. Discussed with case management about discharge medications given patient has no medication coverage. Patient was up today and will have PT evaluate the patient. 12/30/2020 Patient is seen in follow-up this morning stating she is having increased sensation and pain and feels the right lower extremity and foot is more red and painful. Patient maintained on eliquis, aspirin, and Effient and there is some minimal bleeding noted of her previous ulcer at the amputation site of the fifth digit. Patient states she scuffled and had a slight fall in the bathroom last night and unsure if she hit that area. Patient denied hitting her head and states she fell slightly to her knees. She is weak and will have PT/OT evaluate the patient. Cardiology following as well and being transitioned to Plavix and will discontinue Effient. Patient has no insurance coverage case management working with the patient. Blood sugars continue to be elevated and uncontrolled and maintained on sliding scale, pre-meal, long acting and most recent hemoglobin A1c is 10.8. She is also continued on IV antibiotics with infectious disease following closely. We'll discuss about antibiotics on discharge. Review of systems: Constitutional: no reports of fatigue, no reports of fever, or chills Cardiovascular: No reports of chest pain or palpitations Respiratory: No reports of shortness of breath or cough GI: No reports of nausea, vomiting, or diarrhea : No reports of dysuria or retention Neurovascular: Reports generalized weakness and continued right lower extremity discomfort and increased sensation All medications have been reviewed Active Medications Hydrocodone Bitart/Acetaminophen (Hydrocodone/Apap 5-325mg 1 Each Tab) 1 each P O Q8HR PRN PRN Reason: Moderate Pain Last Admin: 12/30/20 08:29 Dose: 1 each Documented by: Alprazolam (Alprazolam 0.25 Mg Tab) 0.25 mg PO TID PRN PRN Reason: Anxiety Last Admin: 12/30/20 21:40 Dose: 0.25 mg Documented by: Apixaban (Apixaban 2.5 Mg Tablet) 2.5 mg PO BID [facility]; Protocol Last Admin: 12/30/20 21:40 Dose: 2.5 mg Documented by: Aspirin (Aspirin 81 Mg) 81 mg PO DAILY [facility] Last Admin: 12/30/20 08:25 Dose: 81 mg Documented by: Atorvastatin Calcium (Atorvastatin 80 Mg Tab) 80 mg PO HS [facility] Last Admin: 12/30/20 21:40 Dose: 80 mg Documented by: Clopidogrel Bisulfate (Clopidogrel 75 Mg Tab) 75 mg PO DAILY [facility] Duloxetine HCl (Duloxetine Hcl 60 Mg Capsule.Dr) 60 mg PO HS [facility] Last Admin: 12/30/20 21:40 Dose: 60 mg Documented by: Gabapentin (Gabapentin 300 Mg Cap) 900 mg PO [facility] Last Admin: 12/30/20 21:39 Dose: 900 mg Documented by: Hydromorphone HCl (Hydromorphone 0.5 Mg/0.5 Ml Syringe) 0.5 mg IVP Q3HR PRN PRN Reason: Moderate Pain Last Admin: 12/30/20 15:26 Dose: 0.5 mg Documented by: Sodium Chloride (Saline 0.9%) 1,000 mls @ 75 mls/hr IV .[id number] [facility] Last Admin: 12/30/20 17:35 Dose: Not Given Documented by: Ampicillin Sodium/Sulbactam (Sodium 3 gm/ Sodium Chloride) 100 mls @ 200 mls/hr IVPB Q6H [facility] Last Admin: 12/31/20 04:25 Dose: 200 mls/hr Documented by: Insulin Aspart (Insulin Aspart (Novolog) 100 Unit/Ml Vial) 15 unit SQ AC-TID [facility] Last Admin: 12/31/20 06:21 Dose: 15 unit Documented by: Insulin Aspart (Insulin Aspart (Novolog) 100 Unit/Ml Vial) 0 unit SQ ACHS [facility]; Protocol Last Admin: 12/31/20 06:21 Dose: 3 unit Documented by: Insulin Detemir (Insulin Detemir (Levemir) 100 Unit/Ml Syr) 60 unit SQ HS [facility] Last Admin: 12/30/20 21:40 Dose: 60 unit Documented by: Melatonin (Melatonin 3 Mg Tablet) 6 mg PO HS PRN PRN Reason: Insomnia Naloxone HCl (Naloxone 0.4 Mg/Ml 1 Ml Vial) 0.2 mg IV Q2M PRN PRN Reason: Opioid Reversal Nitroglycerin (Nitroglycerin Sl Tabs 0.4 Mg Tab) 0.4 mg SUBLINGUAL Q5M PRN PRN Reason: Chest Pain Pantoprazole Sodium (Pantoprazole 40 Mg Tablet) 40 mg PO DAILY PRN PRN Reason: gerd Last Admin: 12/26/20 12:11 Dose: 40 mg Documented by: Physical exam: GENERAL: The patient is alert and oriented x3, not in any acute distress. Well developed, well nourished. HEENT: Pupils are round and equally reacting to light. EOMI. No scleral icterus. No conjunctival pallor. Normocephalic, atraumatic. No pharyngeal erythema. No thyromegaly. CARDIOVASCULAR: S1 and S2 present. No murmurs, rubs, or gallops. PULMONARY: Chest is clear to auscultation, no wheezing or crackles. ABDOMEN: Soft, nontender, nondistended, normoactive bowel sounds. No palpable organomegaly. MUSCULOSKELETAL: No joint swelling or deformity. EXTREMITIES: No cyanosis, clubbing, or pedal edema. Right lower extremity with some minimal redness and inflammation noted, appears the same NEUROLOGICAL: Gross neurological examination did not reveal any focal deficits. SKIN: No rashes. No petechiae right recent fifth digit amputation scabbing noted and the scab appears to have opened up with minimal serous fluid noted Assessment: Right fourth toe ischemia. With history of amputation of the right fifth toe. With CTA showing occluded right superficial femoral artery and distal right superficial femoral artery stent status post angiogram of the right lower extremity with stenting of the RSA Peripheral vascular disease, status post stent to the left iliac artery Possible cellulitis of right lower extremity, improving Diabetes mellitus, uncontrolled with hyperglycemia, present on admission Hypertension Hyperlipidemia History of GERD History of stroke with right hemiparesis History of coronary artery disease status post stent 3 Hiatal hernia Chronic back pain, status post spinal effusion and spinal stimulator History of degenerative neuritis/duodenal ulcer History of celiac disease Diabetic neuropathy GI prophylaxis: PPI DVT prophylaxis: On eliquis Full code Plan: Recommend to continue with current medication, management, and symptomatic treatment. Patient underwent surgical intervention for occlusion of the right superficial femoral artery and distal right superficial femoral artery stent with Dr. Lock and currently on Eliquis, Effient, aspirin and discontinuing Effient and starting Plavix per cardiology . Patient has been on IV Unasyn with infectious disease following for a possibility of cellulitis of the right lower extremity. Possible antibiotics to oral on discharge. Blood sugars continue to be elevated and will continue with sliding scale, pre-meal, and long acting and continue with Accu-Cheks before meals and at bedtime. Further recommendations to follow based on the clinical course of the patient. Prognosis is guarded. Will discuss with cardiology and infectious disease about discharge planning. Objective - Vital Signs Vital signs: Vital Signs Temp 98.3 F 12/30/20 08:00 Pulse 85 12/30/20 08:00 Resp 16 12/30/20 08:00 BP 114/72 12/30/20 08:00 Pulse Ox 98 12/30/20 08:00 Intake & Output 12/29/20 12/30/20 12/30/20 18:59 06:59 18:59 Intake Total 480 480 180 Output Total 1000 Balance -520 480 180 Weight 67.9 kg Intake: Oral 480 480 180 Output: Urine 1000 Other: Voiding Method Toilet Toilet # Voids 1 1 ABP, PAP, CO, CI - Last Documented Arterial Blood Pressure 130/66 - Labs CBC & Chem 7: 12/28/20 04:00 12/29/20 05:21 Labs: Abnormal Lab Results - Last 24 Hours (Table) 12/29/20 12/29/20 12/29/20 Range/Units 11:32 17:08 20:07 POC Glucose (mg/dL) 207 H 340 H 314 H (75-99) mg/dL 12/30/20 Range/Units 06:03 POC Glucose (mg/dL) 263 H (75-99) mg/dL
[2020-12-31] MEDS: ASPIRIN 81 MG PO SCH (09:39)
[2020-12-31] MEDS: APIXABAN 2.5 MG TABLET PO SCH (09:39)
[2020-12-31] MEDS: PANTOPRAZOLE 40 MG TABLET PO PRN (09:39)
[2020-12-31] MEDS: CLOPIDOGREL 75 MG TAB PO SCH (09:39)
[2020-12-31] MEDS: SODIUM CHLORIDE 0.9% 1,000 ML IV SCH ×2 (09:41→17:34)
[2020-12-31 10:15] LABS: Basophils % (A) 0 %; Eosinophils # (A) 0.2 k/uL (0-0.7); Eosinophils % (A) 3 %; HCT 35.7 % (34.0-46.0); HGB 12.3 gm/dL (11.4-16.0); Lymphocytes # (A) 1.7 k/uL (1.0-4.8); Lymphocytes % (A) 23 %; MCHC 34.4 g/dL (31.0-37.0); MCV 87.2 fL (80.0-100.0); Mean Platelet Volume 8.1; Monocytes # (A) 0.5 k/uL (0-1.0); Monocytes % (A) 7 %; Neutrophils # (A) 4.8 k/uL (1.3-7.7); Neutrophils % (A) 65 %; Platelet Count 180 k/uL (150-450); Poikilocytosis Slight; RBC 4.09 m/uL (3.80-5.40); RDW 13.8 % (11.5-15.5); WBC 7.4 k/uL (3.8-10.6)
[2020-12-31 10:31] LABS: African American GFR (CKD) >90 (>60 ml/min/1.73 sqM); Anion Gap 5 mmol/L; Blood Urea Nitrogen 8 mg/dL (7-17); Calcium 8.7 mg/dL (8.4-10.2); Carbon Dioxide 28 mmol/L (22-30); Chloride 101 mmol/L (98-107); Glucose 182 mg/dL (74-99); Non-African American GFR(CKD) >90 (>60 ml/min/1.73 sqM); Potassium 4.1 mmol/L (3.5-5.1); Sodium 134 mmol/L (137-145)
[2020-12-31 11:53] LABS: Glucose,Whole Blood 226 mg/dL (75-99)
[2020-12-31] MEDS: HYDROcodone/APAP 5-325MG 1 EACH TAB PO PRN ×2 (12:01→20:06)
--- NOTE | 2020-12-31 14:42 | P.GSCN ---
History of Present Illness History of present illness: 60-year-old white female, patient is known to me from past. Patient had a right foot fifth toe gangrene done in the past. Patient came with a SFA occlusion patient had a balloon angioplasty by. Patient has developed gangrene changes on the right foot fourth toe also there is a callus formation noted on the lateral aspect of the foot with some drainage noted. Patient scheduled to have a right foot fourth toe amputation and a excision of the infected callus Neck examination neck is supple no bruit appreciated Chest is clear first and second sound normal Abdomen soft nontender Vascular examination brachial radial and femoral pulses are present. Dorsal pedis is 1+ patient has a gangrene changes of the fourth toe and also patient has infected callus plantar suspect the foot plan is a 40 amputation and excision of the callus was deep culture risk and complication discussed thank you Past Medical History Past Medical History: CVA/TIA, Diabetes Mellitus, GERD/Reflux, Hyperlipidemia, Hypertension, Vascular Disorder Additional Past Medical History / Comment(s): Right 5th toe healing from amputation, currently dressed, wound center patient, neuropathy bilateral feet, pancreatitis X2, CVA with right sided weakness, hx left hip fracture, PAD, celiac disease, chronic low back pain, duodenitis/duodenal ulcer, hiatal hernia. History of Any Multi-Drug Resistant Organisms: None Reported Past Surgical History: Back Surgery, Cholecystectomy, Heart Catheterization With Stent, Orthopedic Surgery Additional Past Surgical History / Comment(s): Right 5th toe amputation, lumbar fusion, spinal cord stimulator, left knee arthroscopy, EGD, PATRICIA, 3 cardiac stents, Aortoram, stent to left iliac artery. Past Anesthesia/Blood Transfusion Reactions: No Reported Reaction Additional Past Anesthesia/Blood Transfusion Reaction / Comm: Never had blood transfusion. Date of Last Stent Placement:: 02/2017 Past Psychological History: Anxiety Smoking Status: Current every day smoker Past Alcohol Use History: None Reported Past Drug Use History: None Reported - Past Family History Father Family Medical History: Cancer, Liver Disease Additional Family Medical History / Comment(s): Idiopathic cirrhosis of liver, Liver Cancer. Mother Family Medical History: Coronary Artery Disease (CAD), Myocardial Infarction (PR) Additional Family Medical History / Comment(s): Multiple stents. Mother at the age of 77 or 78 from PR. Medications and Allergies Home Medications Medication Instructions Recorded Confirmed Type Atorvastatin [Lipitor] 80 mg PO HS 06/26/16 12/26/20 History DULoxetine HCL [Cymbalta] 60 mg PO HS 06/26/16 12/26/20 History Nitroglycerin Sl Tabs [Nitrostat] 0.4 mg SUBLINGUAL Q5M PRN #50 tab 07/02/16 12/26/20 Rx Aspirin 81 mg PO DAILY 10/08/17 12/26/20 History Prasugrel [Effient] 10 mg PO DAILY 10/08/17 12/26/20 History Fenofibrate [Lofibra] 160 mg PO DAILY 12/26/20 12/26/20 History Insulin Aspart Prot/Insuln Asp See Protocol SQ AC-TID 12/26/20 12/26/20 History [Relion Novolog Mix 70-30 Vial] Metoprolol Tartrate [Lopressor] 25 mg PO DAILY 12/26/20 12/26/20 History Allergies Allergy/AdvReac Type Severity Reaction Status Date / Time gluten AdvReac Nausea & Verified 12/26/20 08:03 Vomiting & Diarrhea Surgical - Exam Vital Signs Temp Pulse Resp BP Pulse Ox 98.5 F 91 18 149/90 100 12/26/20 05:21 12/26/20 05:21 12/26/20 05:21 12/26/20 05:21 12/26/20 05:21 Results - Labs 12/31/20 10:01 12/31/20 10:01 Abnormal Lab Results - Last 24 Hours (Table) 12/30/20 12/30/20 12/31/20 Range/Units 16:29 20:46 06:06 Sodium (137-145) mmol/L Creatinine (0.52-1.04) mg/dL Glucose (74-99) mg/dL POC Glucose (mg/dL) 207 H 232 H 232 H (75-99) mg/dL 12/31/20 12/31/20 Range/Units 10:01 11:51 Sodium 134 L (137-145) mmol/L Creatinine 0.40 L (0.52-1.04) mg/dL Glucose 182 H (74-99) mg/dL POC Glucose (mg/dL) 226 H (75-99) mg/dL Diabetes panel 12/31/20 Range/Units 10:01 Sodium 134 L (137-145) mmol/L Potassium 4.1 (3.5-5.1) mmol/L Chloride 101 (98-107) mmol/L Carbon Dioxide 28 (22-30) mmol/L BUN 8 (7-17) mg/dL Creatinine 0.40 L (0.52-1.04) mg/dL Glucose 182 H (74-99) mg/dL Calcium 8.7 (8.4-10.2) mg/dL Calcium panel 12/31/20 Range/Units 10:01 Calcium 8.7 (8.4-10.2) mg/dL Pituitary panel 12/31/20 Range/Units 10:01 Sodium 134 L (137-145) mmol/L Potassium 4.1 (3.5-5.1) mmol/L Chloride 101 (98-107) mmol/L Carbon Dioxide 28 (22-30) mmol/L BUN 8 (7-17) mg/dL Creatinine 0.40 L (0.52-1.04) mg/dL Glucose 182 H (74-99) mg/dL Calcium 8.7 (8.4-10.2) mg/dL Adrenal panel 12/31/20 Range/Units 10:01 Sodium 134 L (137-145) mmol/L Potassium 4.1 (3.5-5.1) mmol/L Chloride 101 (98-107) mmol/L Carbon Dioxide 28 (22-30) mmol/L BUN 8 (7-17) mg/dL Creatinine 0.40 L (0.52-1.04) mg/dL Glucose 182 H (74-99) mg/dL Calcium 8.7 (8.4-10.2) mg/dL
--- NOTE | 2020-12-31 15:46 | PN ---
PROGRESS NOTE Mrs. Caldwell is a 60-year-old female with history of coronary artery disease, peripheral arterial disease, diabetes, hyperlipidemia and also tobacco abuse who was admitted to the hospital with right lower extremity pain and discoloration of the toe. Patient had prior right SFA stenting done in July of 2020. Patient came to the emergency room and had an ultrasound which was suggestive of right SFA occluded stent. Dr. Lock again did stent placement. Patient has some injury to that same area and developed some mild hematoma and signs of some cellulitis and infection. Patient was seen by Dr. Patricio and she is being treated with antibiotics. Dr. Padilla is also being consulted for possible amputation of the toe, which appears to be still blue. She is complaining of some nausea. No complaints of any chest pain or shortness of breath. Physical examination at this time reveals a female who is alert and does not appear to be in acute distress. Blood pressure is 112/77, pulse about 73, saturation 95%. Lungs are clear. Heart is regular. Lab values showed normal white count and hemoglobin. Electrolytes are normal. IMPRESSION: 1. Ischemic right leg with blue toe. 2. Coronary artery disease. 3. Smoking. 4. Hypertension. 5. Hyperlipidemia. 6. Diabetes. PLAN: Continue current management. Vascular consult. Further recommendations will depend upon clinical course and recommendation of the vascular surgeon and also ID specialist. MMODL / IJN: [id number] /
[2020-12-31 16:29] LABS: Glucose,Whole Blood 164 mg/dL (75-99)
[2020-12-31] MEDS: HYDROmorphone 0.5 MG/0.5 ML SYRINGE IVP PRN ×2 (17:32→23:51)
--- NOTE | 2020-12-31 17:46 | PN ---
PROGRESS NOTE DATE OF SERVICE: 12/31/2020 REASON FOR FOLLOWUP: Right fourth toe ischemia and possible cellulitis. INTERVAL HISTORY: The patient is afebrile. The patient is breathing comfortably. Denies any chest pain, shortness of breath or cough. No abdominal pain or any worsening pain to the right foot area. The right fourth toe is gangrenous and the patient seems to be upset; wants it to be amputated before discharge. PHYSICAL EXAMINATION: Blood pressure 112/77, pulse of 73, temperature 98.2. She is 95% on room air. General description is a middle-aged female lying in bed in no distress. Respiratory system: Unlabored breathing, clear to auscultation anteriorly. Heart S1, S2. Regular rate and rhythm. Abdomen soft, no tenderness. Right foot fourth toe remains necrotic. Right foot swelling persists. Redness has decreased. No drainage. LABS: Hemoglobin is 12.3, white count 7.4, creatinine 0.40. DIAGNOSTIC IMPRESSION AND PLAN: Patient with right fourth toe gangrene with possible cellulitis. Waiting for possible amputation. Patient is covered with Unasyn; to continue while monitoring clinical course closely. Continue with supportive care. MMODL / IJN: [id number] /
--- NOTE | 2020-12-31 20:35 | P.PN ---
Subjective Progress Note Date: 12/31/20 This is a pleasant 70 years old female with past medical history of CVA/TIA, Di abetes Mellitus, GERD, Hyperlipidemia, Hypertension, s/p Right 5th toe am putation with stent to left iliac artery., neuropathy bilateral feet, pancreatitis X2, CVA with right sided weakness, celiac disease, chronic low back pain, duodenitis/duodenal ulcer, hiatal hernia,Back Surgery, Cholecystectomy, Heart Catheterization With Stent x3, , Status post lumbar fusion, spinal cord stimulator, She underwent successful balloon angioplasty of the right femoral artery by Dr. Cruz on 08/11/2020 Also she has history of fifth toe amputation by Dr. Padilla vascular surgery Vitals are stable Labs including CBC, INR, BMP and liver enzymes are unremarkable. Coronavirus nondetected Glucose elevated 303 EKG showing normal sinus rhythm at [address]-T changes lower extremity CTA : Patent right common and external renal iliac stents with mild diffuse narrowing, no significant flow stenosis on the left. Occluded right superficial femoral artery and right femoral artery stent. also was started on normal saline at 75 mL/h and consulted cardiology team. Also patient was started on heparin drip Emergency room he was started on heparin drip and pain management 12/27/2020 Patient is seen and evaluated and follow-up this morning continues to be on IV heparin with cardiology following and plan is for surgical intervention for the occluded right superficial femoral artery at the placement of the stent. Patient states her pain is controlled and she feels well today. Patient is nothing by mouth for the procedure and will be going to the ICU under close monitoring status post intervention. Will await surgical report. 12/28/2020 Patient is seen in follow up this morning and is being closely monitored in the IU. Patient is status post angiogram with TPA administration with Dr. Lock. Patient is scheduled to undergo further evaluation of the right artery and thrombus. Patient states that she is having tenderness and more pain to the right lower extremity. Patient also states that she did not have a very good night of sleep and feels exhausted. Will add melatonin. Patient continued on IV heparin with plans of switching over to eliquis. Case management following and patient states she has no prescription coverage. Patient has been buying her insulin at [facility] and is 70/30 and uses sliding scale. Will continue accuchecks with meals and at bedtime and continue current sliding scale and long acting and discuss further about medications on discharge. 12/29/2020 Patient is seen and evaluated in the ICU this morning and awaiting transfer to [address] [place] [address]. Cardiology following closely and infectious disease as well for possible cellulitis of the right lower extremity. Patient on eliquis and continued on aspirin and effient. Patient blood sugars continue to be elevated and will continue with sliding scale, pre meal and long acting while hospitalized. Discussed with case management about discharge medications given patient has no medication coverage. Patient was up today and will have PT evaluate the patient. 12/30/2020 Patient is seen in follow-up this morning stating she is having increased sensation and pain and feels the right lower extremity and foot is more red and painful. Patient maintained on eliquis, aspirin, and Effient and there is some minimal bleeding noted of her previous ulcer at the amputation site of the fifth digit. Patient states she scuffled and had a slight fall in the bathroom last night and unsure if she hit that area. Patient denied hitting her head and states she fell slightly to her knees. She is weak and will have PT/OT evaluate the patient. Cardiology following as well and being transitioned to Plavix and will discontinue Effient. Patient has no insurance coverage case management working with the patient. Blood sugars continue to be elevated and uncontrolled and maintained on sliding scale, pre-meal, long acting and most recent hemoglobin A1c is 10.8. She is also continued on IV antibiotics with infectious disease following closely. We'll discuss about antibiotics on discharge. 12/31/2020 Patient is seen and evaluated this morning and continues with right foot and toe pain of the 4th digit. discoloration continues and will consult vascular surgery for possible amputation of the toe. Patient was maintained on eliquis, plavix, and aspirin and will need to hold eliquis for procedure that is being planned for Sunday with Dr. Padilla. Patient to continue with IV zosyn and ID following closely. labs: WBC is 7.4, hemoglobin is 12.3, platelets are 180, sodium is 134, potassium is 4.1, bun is 8, creatinine is 0.40, calcium is 8.7 0... ................................................................................ .................... ................................................................................ .................... ................................................................................ .................... ................................................................................ .................... ................................................................................ .................... ................................................................................ .................... ................................................................................ .................... ................................................................................ .................... ................................................................................ .................... ................................................................................ .................... ................................................................................ .................... ................................................................................ .................... ................................................................................ .................... ................................................................................ .................... ................................................................................ .................... ................................................................................ .................... ................................................................................ .................... ................................................................................ .................... ................................................................................ .................... ................................................................................ .................... ................................................................................ .................... ................................................................................ .................... ................................................................................ .................... ................................................................................ .................... ................................................................................ .................... ................................................................................ .................... ................................................................................ .................... ................................................................................ .................... ................................................................................ .................... ................................................................................ .................... ................................................................................ .................... ................................................................................ .................... ................................................................................ .................... ................................................................................ .................... ................................................................................ .................... ................................................................................ .................... ................................................................................ .................... ................................................................................ .................... ................................................................................ .................... ................................................................................ .................... ................................................................................ .................... ................................................................................ .................... ................................................................................ .................... ................................................................................ .................... ................................................................................ .................... ................................................................................ .................... ................................................................................ .................... ................................................................................ .................... ................................................................................ .................... ................................................................................ .................... ................................................................................ .................... ................................................................................ .................... ................................................................................ .................... ................................................................................ .................... ................................................................................ .................... ................................................................................ .................... ................................................................................ .................... ................................................................................ .................... ................................................................................ .................... ................................................................................ .................... ................................................................................ .................... ................................................................................ .................... ................................................................................ .................... ................................................................................ .................... ................................................................................ .................... ................................................................................ .................... ................................................................................ .................... ................................................................................ .................... ................................................................................ .................... ................................................................................ .................... ................................................................................ .................... ................................................................................ .................... ................................................................................ .................... ................................................................................ .................... ................................................................................ .................... ................................................................................ .................... ................................................................................ .................... ................................................................................ .................... ................................................................................ .................... ................................................................................ .................... ................................................................................ .................... ................................................................................ .................... ................................................................................ .................... ................................................................................ .................... ................................................................................ .................... ................................................................................ .................... ................................................................................ .................... ................................................................................ .................... ................................................................................ .................... ................................................................................ .................... ................................................................................ .................... ................................................................................ .................... ................................................................................ .................... ................................................................................ .................... ................................................................................ .................... ................................................................................ .................... ................................................................................ .................... ................................................................................ .................... ................................................................................ .................... ................................................................................ .................... ................................................................................ .................... ................................................................................ .................... ................................................................................ .................... ................................................................................ .................... ................................................................................ .................... ................................................................................ .................... ................................................................................ .................... ................................................................................ .................... ................................................................................ .................... ................................................................................ .................... ................................................................................ .................... ................................................................................ .................... ................................................................................ .................... ................................................................................ .................... ................................................................................ .................... ................................................................................ .................... ................................................................................ .................... ................................................................................ .................... ................................................................................ .................... ................................................................................ .................... ................................................................................ .................... ................................................................................ .................... ................................................................................ .................... ................................................................................ .................... ................................................................................ .................... ................................................................................ .................... ................................................................................ .................... ................................................................................ .................... ................................................................................ .................... ................................................................................ .................... ................................................................................ .................... ................................................................................ .................... ................................................................................ .................... ................................................................................ .................... ................................................................................ .................... ................................................................................ .................... ................................................................................ .................... ................................................................................ .................... ................................................................................ .................... ................................................................................ .................... ................................................................................ .................... ................................................................................ .................... ................................................................................ .................... ................................................................................ .................... ................................................................................ .................... ................................................................................ .................... ................................................................................ .................... ................................................................................ .................... ................................................................................ ..............................Review Review of systems: Constitutional: no reports of fatigue, no reports of fever, or chills Cardiovascular: No reports of chest pain or palpitations Respiratory: No reports of shortness of breath or cough GI: No reports of nausea, vomiting, or diarrhea : No reports of dysuria or retention Neurovascular: Reports generalized weakness and continued right lower extremity discomfort and increased sensation All medications have been reviewed Active Medications Hydrocodone Bitart/Acetaminophen (Hydrocodone/Apap 5-325mg 1 Each Tab) 1 each PO Q8HR PRN PRN Reason: Moderate Pain Last Admin: 12/31/20 12:01 Dose: 1 each Documented by: Alprazolam (Alprazolam 0.25 Mg Tab) 0.25 mg PO TID PRN PRN Reason: Anxiety Last Admin: 12/30/20 21:40 Dose: 0.25 mg Documented by: Aspirin (Aspirin 81 Mg) 81 mg PO DAILY [facility] Last Admin: 12/31/20 09:39 Dose: 81 mg Documented by: Atorvastatin Calcium (Atorvastatin 80 Mg Tab) 80 mg PO [facility] Last Admin: 12/30/20 21:40 Dose: 80 mg Documented by: Clopidogrel Bisulfate (Clopidogrel 75 Mg Tab) 75 mg PO DAILY [facility] Last Admin: 12/31/20 09:39 Dose: 75 mg Documented by: Duloxetine HCl (Duloxetine Hcl 60 Mg Capsule.Dr) 60 mg PO [facility] Last Admin: 12/30/20 21:40 Dose: 60 mg Documented by: Gabapentin (Gabapentin 300 Mg Cap) 900 mg PO [facility] Last Admin: 12/30/20 21:39 Dose: 900 mg Documented by: Hydromorphone HCl (Hydromorphone 0.5 Mg/0.5 Ml Syringe) 0.5 mg IVP Q3HR PRN PRN Reason: Moderate Pain Last Admin: 12/31/20 17:32 Dose: 0.5 mg Documented by: Sodium Chloride (Saline 0.9%) 1,000 mls @ 75 mls/hr IV .[id number] [facility] Last Admin: 12/31/20 17:34 Dose: 75 mls/hr Documented by: Ampicillin Sodium/Sulbactam (Sodium 3 gm/ Sodium Chloride) 100 mls @ 200 mls/hr IVPB Q6H [facility] Last Admin: 12/31/20 17:32 Dose: 200 mls/hr Documented by: Insulin Aspart (Insulin Aspart (Novolog) 100 Unit/Ml Vial) 15 unit SQ AC-TID [facility] Last Admin: 12/31/20 17:33 Dose: 15 unit Documented by: Insulin Aspart (Insulin Aspart (Novolog) 100 Unit/Ml Vial) 0 unit SQ ACHS [facility]; Protocol Last Admin: 12/31/20 17:34 Dose: 1 unit Documented by: Insulin Detemir (Insulin Detemir (Levemir) 100 Unit/Ml Syr) 60 unit SQ [facility] Last Admin: 12/30/20 21:40 Dose: 60 unit Documented by: Melatonin (Melatonin 3 Mg Tablet) 6 mg PO HS PRN PRN Reason: Insomnia Naloxone HCl (Naloxone 0.4 Mg/Ml 1 Ml Vial) 0.2 mg IV Q2M PRN PRN Reason: Opioid Reversal Nitroglycerin (Nitroglycerin Sl Tabs 0.4 Mg Tab) 0.4 mg SUBLINGUAL Q5M PRN PRN Reason: Chest Pain Ondansetron HCl (Ondansetron 4 Mg/2 Ml Vial) 4 mg IVP Q6HR PRN PRN Reason: Nausea And Vomiting Pantoprazole Sodium (Pantoprazole 40 Mg Tablet) 40 mg PO DAILY PRN PRN Reason: gerd Last Admin: 12/31/20 09:39 Dose: 40 mg Documented by: Physical exam: GENERAL: The patient is alert and oriented x3, not in any acute distress. Well developed, well nourished. HEENT: Pupils are round and equally reacting to light. EOMI. No scleral icterus. No conjunctival pallor. Normocephalic, atraumatic. No pharyngeal erythema. No thyromegaly. CARDIOVASCULAR: S1 and S2 present. No murmurs, rubs, or gallops. PULMONARY: Chest is clear to auscultation, no wheezing or crackles. ABDOMEN: Soft, nontender, nondistended, normoactive bowel sounds. No palpable or ganomegaly. MUSCULOSKELETAL: No joint swelling or deformity. EXTREMITIES: No cyanosis, clubbing, or pedal edema. Right lower extremity with some minimal redness and inflammation noted, appears the same NEUROLOGICAL: Gross neurological examination did not reveal any focal deficits. SKIN: No rashes. No petechiae right recent fifth digit amputation scabbing noted and the scab appears to have opened up with minimal serous fluid noted, continued blackened discoloration of the 4th digit with increased pain Assessment: Right fourth toe ischemia. With recent history of amputation of the right fifth toe. occluded right superficial femoral artery and distal right superficial femoral artery stent status post angiogram of the right lower extremity with stenting of the SFA Peripheral vascular disease, status post stent to the left iliac artery Possible cellulitis of right lower extremity, improving Diabetes mellitus, uncontrolled with hyperglycemia, present on admission Hypertension Hyperlipidemia History of GERD History of stroke with right hemiparesis History of coronary artery disease status post stent 3 Hiatal hernia Chronic back pain, status post spinal effusion and spinal stimulator History of degenerative neuritis/duodenal ulcer History of celiac disease Diabetic neuropathy GI prophylaxis: PPI DVT prophylaxis: On eliquis which will be held for amputation on sunday Full code Plan: Recommend to continue with current medication, management, and symptomatic treatment. Patient underwent surgical intervention for occlusion of the right superficial femoral artery and distal right superficial femoral artery stent with Dr. Lock and currently on Eliquis, plavix, aspirin and will hold eliquis for amputation of the right 4th toe digit with Dr. Padilla on Sunday . Patient continue on IV Unasyn with infectious disease following for a possibility of cellulitis of the right lower extremity. Possible antibiotics to oral on discharge. Blood sugars continue to be elevated and will continue with sliding scale, pre-meal, and long acting and continue with Accu-Cheks before meals and at bedtime. Further recommendations to follow based on the clinical course of the patient. Prognosis is guarded. Objective - Vital Signs Vital signs: Vital Signs Temp 98.3 F 12/31/20 04:00 Pulse 71 12/31/20 04:00 Resp 16 12/31/20 04:00 BP 129/79 12/31/20 04:00 Pulse Ox 94 L 12/31/20 04:00 Intake & Output 12/30/20 12/31/20 12/31/20 18:59 06:59 18:59 Intake Total 697 180 Balance 697 180 Weight 67.4 kg Intake: IV 100 Ampicillin-Sulbactam 3 gm 100 In Sodium Chloride 0.9% 100 ml @ 200 mls/hr IVPB Q6H [facility] Rx#:[id number] Oral 597 180 Other: Voiding Method Toilet # Voids 1 1 ABP, PAP, CO, CI - Last Documented Arterial Blood Pressure 130/66 - Labs CBC & Chem 7: 12/31/20 10:01 12/31/20 10:01 Labs: Abnormal Lab Results - Last 24 Hours (Table) 12/30/20 12/30/20 12/30/20 Range/Units 11:39 16:29 20:46 POC Glucose (mg/dL) 226 H 207 H 232 H (75-99) mg/dL 12/31/20 Range/Units 06:06 POC Glucose (mg/dL) 232 H (75-99) mg/dL
[2020-12-31 20:53] LABS: Glucose,Whole Blood 206 mg/dL (75-99)
[2020-12-31] MEDS: ALPRAZolam 0.25 MG TAB PO PRN (21:45)
[2020-12-31] MEDS: INSULIN DETEMIR (LEVEMIR) 100 UNIT/ML SYR SQ SCH (21:46)
[2020-12-31] MEDS: GABAPENTIN 300 MG CAP PO SCH (21:46)
[2021-01-01] MEDS: MELATONIN 3 MG TABLET PO PRN ×2 (02:16→20:28)
[2021-01-01] MEDS: HYDROmorphone 0.5 MG/0.5 ML SYRINGE IVP PRN ×2 (02:17→14:16)
[2021-01-01] MEDS: AMPICILLIN-SULBACTAM 3 GM in SODIUM CHLORIDE 0.9% 100 ML IVPB SCH ×4 (05:05→20:28)
[2021-01-01 06:04] LABS: Glucose,Whole Blood 246 mg/dL (75-99)
[2021-01-01] MEDS: INSULIN ASPART (NovoLOG) 100 UNIT/ML VIAL SQ SCH ×7 (06:22→20:29)
[2021-01-01] MEDS: ASPIRIN 81 MG PO SCH (09:43)
[2021-01-01] MEDS: ALPRAZolam 0.25 MG TAB PO PRN ×2 (09:43→18:52)
[2021-01-01] MEDS: HYDROcodone/APAP 5-325MG 1 EACH TAB PO PRN ×2 (09:43→18:52)
[2021-01-01] MEDS: SODIUM CHLORIDE 0.9% 1,000 ML IV SCH ×2 (09:43→22:39)
[2021-01-01] MEDS: CLOPIDOGREL 75 MG TAB PO SCH (09:43)
--- NOTE | 2021-01-01 13:08 | P.PN ---
Progress Note - Text Progress Note Date: 01/01/21 HISTORY OF PRESENTING ILLNESS Patient is a pleasant 60-year-old female with history of coronary artery disease, PAD, diabetes mellitus, hyperlipidemia, tobacco abuse who presents secondary to right lower extremity pain and discoloration of her toe. Patient does have a history of PAD with prior right SFA stenting 07/2020. She had done very well since that standpoint however over the last 2 weeks has noticed increased pain even while at rest. She therefore came to the emergency department 12/13/2020 where a lower extremity venous ultrasound was performed however there was also note of a right SFA occluded stent. Patient was then scheduled to follow-up with Dr. Lock however was not able to. She was restarted on Effient. She had pain which was worse when she was having her leg dependent however over the last 24-48 hours she has noticed that the right toe is somewhat more purple and dusky and therefore presented to emergency department. She admits pain has been fairly well controlled with morphine. She was started on a heparin drip. A CTA was performed which showed patent right common and external iliac stents, occluded right SFA and distal right SFA stent, multiple mild stenoses on the left with 3 vessel runoff bilaterally. 12/30/2020 Patient underwent stenting of the right SFA with Dr. Lock on 12-28-2020. Patient reports she has more sensation to her right foot today. Vital signs are stable. She is currently on Eliquis, effient, and aspirin. Per case management, the patient does not have rx insurance coverage. 01/01/2021: Patient is seen today in follow-up on the cardiac stepdown unit. Patient's toe is still ischemic and seen as a consult with plan for amp utation on Sunday morning. She is continued on IV antibiotics the form of Patient denies any chest pain or shortness of breath. PHYSICAL EXAMINATION Vital signs reviewed. CONSTITUTIONAL: No apparent distress. HEENT: Head is normocephalic. Pupils are equal, round. Sclerae anicteric. Mucous membranes of the mouth are moist. No JVD. No carotid bruit. CHEST EXAMINATION: Lungs are clear to auscultation. No chest wall tenderness is noted on palpation or with deep breathing. HEART EXAMINATION: Regular rate and rhythm. S1, S2 heard. No murmurs, gallops or rub. ABDOMEN: Soft, nontender. Positive bowel sounds. EXTREMITIES: Cyanotic 4th right toe. Positive fifth toe amputation. Patient with wound to lateral aspect of right foot. NEUROLOGIC EXAMINATION: Patient is awake, alert and oriented x3. ASSESSMENT 1. Acute limb ischemia with gangrenous changes to the right foot fourth toe 2. History of PAD status post right SFA stenting 3. Coronary artery disease 4. Hypertension 5. Hyperlipidemia 6. Diabetes mellitus PLAN Vascular consult in place with Dr. Padlila with plan for amputation of the right fourth toe on Sunday morning Continue recommendations from infectious disease Hold [facility] for surgical intervention. Patient will receive 1 month free at discharge. Continue aspirin, Plavix 75mg. Further recommendations pending patient course Nurse practitioner note has been reviewed by physician. Signing provider agrees with the documented findings, assessment, and plan of care.
[2021-01-01 17:23] LABS: Glucose,Whole Blood 175 mg/dL (75-99)
[2021-01-01 20:23] LABS: Glucose,Whole Blood 191 mg/dL (75-99)
[2021-01-01] MEDS: ATORVASTATIN 80 MG TAB PO SCH (20:28)
[2021-01-01] MEDS: INSULIN DETEMIR (LEVEMIR) 100 UNIT/ML SYR SQ SCH (20:28)
[2021-01-01] MEDS: GABAPENTIN 300 MG CAP PO SCH (20:28)
[2021-01-01] MEDS: DULoxetine HCL 60 MG CAPSULE.DR PO SCH (20:28)
--- NOTE | 2021-01-01 21:39 | PN ---
PROGRESS NOTE DATE OF SERVICE: 01/01/2021 REASON FOR FOLLOWUP: Right foot fourth toe gangrene concerning for cellulitis. INTERVAL HISTORY: The patient is afebrile, currently breathing comfortably. Denies having any chest pain, shortness of breath or cough. No worsening pain to the right foot area. No vomiting. No abdominal pain or diarrhea. PHYSICAL EXAMINATION: Blood pressure is 102/60 with a pulse of 70, temperature 98.3. She is 95% on room air. General description is a middle-aged female lying in bed in no distress. Respiratory system: Unlabored breathing, clear to auscultation anteriorly. Heart S1, S2. Regular rate and rhythm. Abdomen soft, no tenderness. Right fourth toe remains gangrenous; minimal swelling. No significant redness or drainage. LABS: No new labs have been obtained today. DIAGNOSTIC IMPRESSION AND PLAN: Patient with right fourth toe gangrene. Concern for possible cellulitis and infected callus on the right lateral foot. Waiting for debridement, deep cultures and amputation of right fourth toe. Patient empirically covered with Unasyn; to continue while monitoring clinical course closely. Continue with supportive care. MMODL / IJN: [id number] /
[2021-01-02] MEDS: HYDROmorphone 0.5 MG/0.5 ML SYRINGE IVP PRN ×4 (00:51→20:28)
--- NOTE | 2021-01-02 01:28 | P.PN ---
Subjective Progress Note Date: 01/01/21 This is a pleasant 70 years old female with past medical history of CVA/TIA, Di abetes Mellitus, GERD, Hyperlipidemia, Hypertension, s/p Right 5th toe am putation with stent to left iliac artery., neuropathy bilateral feet, pancreatitis X2, CVA with right sided weakness, celiac disease, chronic low back pain, duodenitis/duodenal ulcer, hiatal hernia,Back Surgery, Cholecystectomy, Heart Catheterization With Stent x3, , Status post lumbar fusion, spinal cord stimulator, She underwent successful balloon angioplasty of the right femoral artery by Dr. Cruz on 08/11/2020 Also she has history of fifth toe amputation by Dr. Padilla vascular surgery Vitals are stable Labs including CBC, INR, BMP and liver enzymes are unremarkable. Coronavirus nondetected Glucose elevated 303 EKG showing normal sinus rhythm at [address]-T changes lower extremity CTA : Patent right common and external renal iliac stents with mild diffuse narrowing, no significant flow stenosis on the left. Occluded right superficial femoral artery and right femoral artery stent. also was started on normal saline at 75 mL/h and consulted cardiology team. Also patient was started on heparin drip Emergency room he was started on heparin drip and pain management 12/27/2020 Patient is seen and evaluated and follow-up this morning continues to be on IV heparin with cardiology following and plan is for surgical intervention for the occluded right superficial femoral artery at the placement of the stent. Patient states her pain is controlled and she feels well today. Patient is nothing by mouth for the procedure and will be going to the ICU under close monitoring status post intervention. Will await surgical report. 12/28/2020 Patient is seen in follow up this morning and is being closely monitored in the IU. Patient is status post angiogram with TPA administration with Dr. Lock. Patient is scheduled to undergo further evaluation of the right artery and thrombus. Patient states that she is having tenderness and more pain to the right lower extremity. Patient also states that she did not have a very good night of sleep and feels exhausted. Will add melatonin. Patient continued on IV heparin with plans of switching over to eliquis. Case management following and patient states she has no prescription coverage. Patient has been buying her insulin at [facility] and is 70/30 and uses sliding scale. Will continue accuchecks with meals and at bedtime and continue current sliding scale and long acting and discuss further about medications on discharge. 12/29/2020 Patient is seen and evaluated in the ICU this morning and awaiting transfer to [address] [place] [address]. Cardiology following closely and infectious disease as well for possible cellulitis of the right lower extremity. Patient on eliquis and continued on aspirin and effient. Patient blood sugars continue to be elevated and will continue with sliding scale, pre meal and long acting while hospitalized. Discussed with case management about discharge medications given patient has no medication coverage. Patient was up today and will have PT evaluate the patient. 12/30/2020 Patient is seen in follow-up this morning stating she is having increased sensation and pain and feels the right lower extremity and foot is more red and painful. Patient maintained on eliquis, aspirin, and Effient and there is some minimal bleeding noted of her previous ulcer at the amputation site of the fifth digit. Patient states she scuffled and had a slight fall in the bathroom last night and unsure if she hit that area. Patient denied hitting her head and states she fell slightly to her knees. She is weak and will have PT/OT evaluate the patient. Cardiology following as well and being transitioned to Plavix and will discontinue Effient. Patient has no insurance coverage case management working with the patient. Blood sugars continue to be elevated and uncontrolled and maintained on sliding scale, pre-meal, long acting and most recent hemoglobin A1c is 10.8. She is also continued on IV antibiotics with infectious disease following closely. We'll discuss about antibiotics on discharge. 12/31/2020 Patient is seen and evaluated this morning and continues with right foot and toe pain of the 4th digit. discoloration continues and will consult vascular surgery for possible amputation of the toe. Patient was maintained on eliquis, plavix, and aspirin and will need to hold eliquis for procedure that is being planned for Sunday with Dr. Padilla. Patient to continue with IV zosyn and ID following closely. 01/01/2021 Patient is seen in follow up today and is being scheduled for right 4th toe amputation tomorrow with Dr. Padilla. Eliquis on hold. Patient continues on IV antibiotics in the form of Zosyn and infectious disease following. Deep tissue cultures to be obtained and monitored. Repeat labs of CBC and BMP within normal limits. Blood sugars continue to be elevated but controlled on current medication regimen and will continue accuchecks and closely monitor. Patient tolerating diet with no reported nausea or vomiting and will be NPO at midnight for the surgery. 0.................................................................... ................................................................................ .................... ................................................................................ .................... ................................................................................ .................... ................................................................................ .................... ................................................................................ .................... ................................................................................ .................... ................................................................................ .................... ................................................................................ .................... ................................................................................ .................... ................................................................................ .................... ................................................................................ .................... ................................................................................ .................... ................................................................................ .................... ................................................................................ .................... ................................................................................ .................... ................................................................................ .................... ................................................................................ .................... ................................................................................ .................... ................................................................................ .................... ................................................................................ .................... ................................................................................ .................... ................................................................................ .................... ................................................................................ .................... ................................................................................ .................... ................................................................................ .................... ................................................................................ .................... ................................................................................ .................... ................................................................................ .................... ................................................................................ .................... ................................................................................ .................... ................................................................................ .................... ................................................................................ .................... ................................................................................ .................... ................................................................................ .................... ................................................................................ .................... ................................................................................ .................... ................................................................................ .................... ................................................................................ .................... ................................................................................ .................... ................................................................................ .................... ................................................................................ .................... ................................................................................ .................... ................................................................................ .................... ................................................................................ .................... ................................................................................ .................... ................................................................................ .................... ................................................................................ .................... ................................................................................ .................... ................................................................................ .................... ................................................................................ .................... ................................................................................ .................... ................................................................................ .................... ................................................................................ .................... ................................................................................ .................... ................................................................................ .................... ................................................................................ .................... ................................................................................ .................... ................................................................................ .................... ................................................................................ .................... ................................................................................ .................... ................................................................................ .................... ................................................................................ .................... ................................................................................ .................... ................................................................................ .................... ................................................................................ .................... ................................................................................ .................... ................................................................................ .................... ................................................................................ .................... ................................................................................ .................... ................................................................................ .................... ................................................................................ .................... ................................................................................ .................... ................................................................................ .................... ................................................................................ .................... ................................................................................ .................... ................................................................................ .................... ................................................................................ .................... ................................................................................ .................... ................................................................................ .................... ................................................................................ .................... ................................................................................ .................... ................................................................................ .................... ................................................................................ .................... ................................................................................ .................... ................................................................................ .................... ................................................................................ .................... ................................................................................ .................... ................................................................................ .................... ................................................................................ .................... ................................................................................ .................... ................................................................................ .................... ................................................................................ .................... ................................................................................ .................... ................................................................................ .................... ................................................................................ .................... ................................................................................ .................... ................................................................................ .................... ................................................................................ .................... ................................................................................ .................... ................................................................................ .................... ................................................................................ .................... ................................................................................ .................... ................................................................................ .................... ................................................................................ .................... ................................................................................ .................... ................................................................................ .................... ................................................................................ .................... ................................................................................ .................... ................................................................................ .................... ................................................................................ .................... ................................................................................ .................... ................................................................................ .................... ................................................................................ .................... ................................................................................ .................... ................................................................................ .................... ................................................................................ .................... ................................................................................ .................... ................................................................................ .................... ................................................................................ .................... ................................................................................ .................... ................................................................................ .................... ................................................................................ .................... ................................................................................ .................... ................................................................................ .................... ................................................................................ .................... ................................................................................ .................... ................................................................................ .................... ................................................................................ .................... ................................................................................ .................... ................................................................................ .................... ................................................................................ .................... ................................................................................ .................... ................................................................................ .................... ................................................................................ .................... ................................................................................ .................... ................................................................................ .................... ................................................................................ .................... ................................................................................ .................... ................................................................................ .................... ................................................................................ .................... ................................................................................ .................... ................................................................................ .................... ................................................................................ .................... ................................................................................ .................... ................................................................................ .................... ................................................................................ .................... ................................................................................ .................... ................................................................................ .................................................................Review Review of systems: Constitutional: no reports of fatigue, no reports of fever, or chills Cardiovascular: No reports of chest pain or palpitations Respiratory: No reports of shortness of breath or cough GI: No reports of nausea, vomiting, or diarrhea : No reports of dysuria or retention Neurovascular: Reports generalized weakness and continued right lower extremity discomfort All medications have been reviewed Active Medications Hydrocodone Bitart/Acetaminophen (Hydrocodone/Apap 5-325mg 1 Each Tab) 1 each PO Q8HR PRN PRN Reason: Moderate Pain Last Admin: 01/01/21 18:52 Dose: 1 each Documented by: Alprazolam (Alprazolam 0.25 Mg Tab) 0.25 mg PO TID PRN PRN Reason: Anxiety Last Admin: 01/01/21 18:52 Dose: 0.25 mg Documented by: Aspirin (Aspirin 81 Mg) 81 mg PO DAILY [facility] Last Admin: 01/01/21 09:43 Dose: 81 mg Documented by: Atorvastatin Calcium (Atorvastatin 80 Mg Tab) 80 mg PO [facility] Last Admin: 01/01/21 20:28 Dose: 80 mg Documented by: Clopidogrel Bisulfate (Clopidogrel 75 Mg Tab) 75 mg PO DAILY [facility] Last Admin: 01/01/21 09:43 Dose: 75 mg Documented by: Duloxetine HCl (Duloxetine Hcl 60 Mg Capsule.Dr) 60 mg PO [facility] Last Admin: 01/01/21 20:28 Dose: 60 mg Documented by: Gabapentin (Gabapentin 300 Mg Cap) 900 mg PO [facility] Last Admin: 01/01/21 20:28 Dose: 900 mg Documented by: Hydromorphone HCl (Hydromorphone 0.5 Mg/0.5 Ml Syringe) 0.5 mg IVP Q3HR PRN PRN Reason: Moderate Pain Last Admin: 01/02/21 00:51 Dose: 0.5 mg Documented by: Sodium Chloride (Saline 0.9%) 1,000 mls @ 75 mls/hr IV .[id number] [facility] Last Admin: 01/01/21 22:39 Dose: Not Given Documented by: Ampicillin Sodium/Sulbactam (Sodium 3 gm/ Sodium Chloride) 100 mls @ 200 mls/hr IVPB Q6H [facility] Last Admin: 01/01/21 20:28 Dose: 200 mls/hr Documented by: Insulin Aspart (Insulin Aspart (Novolog) 100 Unit/Ml Vial) 15 unit SQ AC-TID [facility] Last Admin: 01/01/21 18:53 Dose: 15 unit Documented by: Insulin Aspart (Insulin Aspart (Novolog) 100 Unit/Ml Vial) 0 unit SQ ACHS [facility]; Protocol Last Admin: 01/01/21 20:29 Dose: 2 unit Documented by: Insulin Detemir (Insulin Detemir (Levemir) 100 Unit/Ml Syr) 60 unit SQ HS MAGALY Last Admin: 01/01/21 20:28 Dose: 60 unit Documented by: Melatonin (Melatonin 3 Mg Tablet) 6 mg PO HS PRN PRN Reason: Insomnia Last Admin: 01/01/21 20:28 Dose: 6 mg Documented by: Naloxone HCl (Naloxone 0.4 Mg/Ml 1 Ml Vial) 0.2 mg IV Q2M PRN PRN Reason: Opioid Reversal Nitroglycerin (Nitroglycerin Sl Tabs 0.4 Mg Tab) 0.4 mg SUBLINGUAL Q5M PRN PRN Reason: Chest Pain Ondansetron HCl (Ondansetron 4 Mg/2 Ml Vial) 4 mg IVP Q6HR PRN PRN Reason: Nausea And Vomiting Pantoprazole Sodium (Pantoprazole 40 Mg Tablet) 40 mg PO DAILY PRN PRN Reason: gerd Last Admin: 12/31/20 09:39 Dose: 40 mg Documented by: Physical exam: GENERAL: The patient is alert and oriented x3, not in any acute distress. Well developed, well nourished. HEENT: Pupils are round and equally reacting to light. EOMI. No scleral icterus. No conjunctival pallor. Normocephalic, atraumatic. No pharyngeal erythema. No thyromegaly. CARDIOVASCULAR: S1 and S2 present. No murmurs, rubs, or gallops. PULMONARY: Chest is clear to auscultation, no wheezing or crackles. ABDOMEN: Soft, nontender, nondistended, normoactive bowel sounds. No palpable organomegaly. MUSCULOSKELETAL: No joint swelling or deformity. EXTREMITIES: No cyanosis, clubbing, or pedal edema. Right lower extremity with some minimal redness and inflammation noted, appears the same NEUROLOGICAL: Gross neurological examination did not reveal any focal deficits. SKIN: No rashes. No petechiae right recent fifth digit amputation scabbing noted and the scab appears to have opened up with minimal serous fluid noted, continued blackened discoloration of the 4th digit with increased pain Assessment: Right fourth toe ischemia with gangrene. With recent history of amputation of the right fifth toe. Plan is for amputation tomorrow with DR. Padilla occluded right superficial femoral artery and distal right superficial femoral artery stent status post angiogram of the right lower extremity with stenting of the SFA Peripheral vascular disease, status post stent to the left iliac artery Possible cellulitis of right lower extremity, continued on IV zosyn Diabetes mellitus, uncontrolled with hyperglycemia, present on admission Hypertension Hyperlipidemia History of GERD History of stroke with right hemiparesis History of coronary artery disease status post stent 3 Hiatal hernia Chronic back pain, status post spinal effusion and spinal stimulator History of degenerative neuritis/duodenal ulcer History of celiac disease Diabetic neuropathy GI prophylaxis: PPI DVT prophylaxis: On eliquis which will be held for amputation on sunday Full code Plan: Recommend to continue with current medication, management, and symptomatic treatment. Patient recently underwent surgical intervention for occlusion of the right superficial femoral artery and distal right superficial femoral artery stent with Dr. Lock and currently on Eliquis, plavix, aspirin and will hold contine to hold eliquis for amputation of the right 4th toe with Dr. Padilla tomorrow . Patient will be NPO at midnight. Patient continue on IV Unasyn with infectious disease following for a possibility of cellulitis of the right lower extremity. Will await deep tissue cultures to determine antibiotics on d ischarge. Blood sugars continue to be elevated and will continue with sliding scale, pre-meal, and long acting and continue with Accu-Cheks before meals and at bedtime. Further recommendations to follow based on the clinical course of the patient. Will await surgical report and discuss with vascular surgery about resuming Eliquis. Prognosis is guarded. Objective - Vital Signs Vital signs: Vital Signs Temp 98.3 F 01/01/21 07:05 Pulse 67 01/01/21 07:05 Resp 18 01/01/21 07:05 BP 111/63 01/01/21 07:05 Pulse Ox 95 01/01/21 07:05 Intake & Output 12/31/20 01/01/21 01/01/21 18:59 06:59 18:59 Intake Total 450 1080 1660 Output Total 600 Balance -150 1080 1660 Weight 67.7 kg Intake: IV 10 600 800 Ampicillin-Sulbactam 3 gm 600 200 In Sodium Chloride 0.9% 100 ml @ 200 mls/hr IVPB Q6H [facility] Rx#:[id number] Invasive Line 2 10 Sodium Chloride 0.9% 1, 600 000 ml @ 75 mls/hr IV . [id number] [facility] Rx#:[id number] Oral 440 480 860 Output: Urine 600 Other: Voiding Method Toilet # Voids 1 1 ABP, PAP, CO, CI - Last Documented Arterial Blood Pressure 130/66 - Labs CBC & Chem 7: 12/31/20 10:01 12/31/20 10:01 Labs: Abnormal Lab Results - Last 24 Hours (Table) 12/31/20 12/31/20 01/01/21 Range/Units 16:27 20:52 06:02 POC Glucose (mg/dL) 164 H 206 H 246 H (75-99) mg/dL
[2021-01-02] MEDS: ALPRAZolam 0.25 MG TAB PO PRN ×2 (02:11→20:38)
[2021-01-02] MEDS: INSULIN ASPART (NovoLOG) 100 UNIT/ML VIAL SQ SCH ×7 (02:11→20:41)
[2021-01-02] MEDS: AMPICILLIN-SULBACTAM 3 GM in SODIUM CHLORIDE 0.9% 100 ML IVPB SCH ×4 (04:32→20:29)
[2021-01-02 06:09] LABS: Glucose,Whole Blood 172 mg/dL (75-99)
[2021-01-02] MEDS ORDERED: MIDAZOLAM 2 MG/2 ML VIAL ONE (07:50)
[2021-01-02] MEDS ORDERED: PROPOFOL 10 MG/ML 20 ML VIAL IV ONE (07:50)
[2021-01-02] MEDS ORDERED: fentaNYL (PF) 50 MCG/ML 2 ML AMP ONE (07:50)
[2021-01-02] MEDS ORDERED: SODIUM CHLORIDE 0.9% 1,000 ML IV ONE (07:55)
[2021-01-02] MEDS ORDERED: LIDOCAINE 1% INJ 10MG/ML (20 ML MDV) SQ ONE (07:55)
[2021-01-02] MEDS: SODIUM CHLORIDE 0.9% 1,000 ML IV SCH (09:37)
--- NOTE | 2021-01-02 10:51 | OP ---
OPERATIVE REPORT PREOPERATIVE DIAGNOSIS: Right foot fourth toe gangrene changes with infected callus on the lateral aspect of the right foot. POSTOPERATIVE DIAGNOSIS: Right foot fourth toe gangrene changes with infected callus on the lateral aspect of the right foot. OPERATION: Ray amputation of the right foot fourth toe and excision of the callus. DESCRIPTION: This patient was brought to the operating room. Right foot was prepped and drapes were applied in the usual sterile manner. This patient came with ischemic fourth toe with gangrene changes. Also there was a callus on the lateral aspect of the foot which was infected. Patient is on IV antibiotic. Recently patient had an SFA balloon angioplasty. Elliptical incision was made on the dorsal aspect of the foot, deepened into skin, fat and fascia. Then the incision was extended to the plantar aspect of the foot, deepened through skin, fat and fascia. Tendons were divided of the fourth toe with a sharp knife and periosteum elevator was used to elevate the periosteum from the and then we did the amputation at the metatarsophalangeal joint. The toe was removed. Also there was a callus on the lateral aspect of the foot which was also excised. Devitalized tissue was excised with a sharp knife. The specimen was sent for deep culture. Wound was irrigated with hydrogen peroxide and saline. Hemostasis was well controlled and the incision was closed with 2-0 Vicryl. Skin was kept open because of infection and Aquacel Silver was applied to the wound. Dressing was applied. Patient tolerated the procedure well. MMODL / IJN: [id number] /
[2021-01-02] MEDS: ASPIRIN 81 MG PO SCH ×2 (11:01→13:08)
[2021-01-02 11:22] LABS: Glucose,Whole Blood 235 mg/dL (75-99)
[2021-01-02] MEDS ORDERED: SILVER NITRATE APPLICATOR 1 EACH STICK..EA. TOPICAL STA (11:27)
[2021-01-02] MEDS: CLOPIDOGREL 75 MG TAB PO SCH (12:22)
[2021-01-02] MEDS: ONDANSETRON 4 MG/2 ML VIAL IVP PRN (12:35)
--- NOTE | 2021-01-02 12:44 | P.PN ---
Subjective Progress Note Date: 01/02/21 This is a pleasant 70 years old female with past medical history of CVA/TIA, Di abetes Mellitus, GERD, Hyperlipidemia, Hypertension, s/p Right 5th toe am putation with stent to left iliac artery., neuropathy bilateral feet, pancreatitis X2, CVA with right sided weakness, celiac disease, chronic low back pain, duodenitis/duodenal ulcer, hiatal hernia,Back Surgery, Cholecystectomy, Heart Catheterization With Stent x3, , Status post lumbar fusion, spinal cord stimulator, She underwent successful balloon angioplasty of the right femoral artery by Dr. Cruz on 08/11/2020 Also she has history of fifth toe amputation by Dr. Padilla vascular surgery Vitals are stable Labs including CBC, INR, BMP and liver enzymes are unremarkable. Coronavirus nondetected Glucose elevated 303 EKG showing normal sinus rhythm at [address]-T changes lower extremity CTA : Patent right common and external renal iliac stents with mild diffuse narrowing, no significant flow stenosis on the left. Occluded right superficial femoral artery and right femoral artery stent. also was started on normal saline at 75 mL/h and consulted cardiology team. Also patient was started on heparin drip Emergency room he was started on heparin drip and pain management 12/27/2020 Patient is seen and evaluated and follow-up this morning continues to be on IV heparin with cardiology following and plan is for surgical intervention for the occluded right superficial femoral artery at the placement of the stent. Patient states her pain is controlled and she feels well today. Patient is nothing by mouth for the procedure and will be going to the ICU under close monitoring status post intervention. Will await surgical report. 12/28/2020 Patient is seen in follow up this morning and is being closely monitored in the IU. Patient is status post angiogram with TPA administration with Dr. Lock. Patient is scheduled to undergo further evaluation of the right artery and thrombus. Patient states that she is having tenderness and more pain to the right lower extremity. Patient also states that she did not have a very good night of sleep and feels exhausted. Will add melatonin. Patient continued on IV heparin with plans of switching over to eliquis. Case management following and patient states she has no prescription coverage. Patient has been buying her insulin at [facility] and is 70/30 and uses sliding scale. Will continue accuchecks with meals and at bedtime and continue current sliding scale and long acting and discuss further about medications on discharge. 12/29/2020 Patient is seen and evaluated in the ICU this morning and awaiting transfer to [address] [place] [address]. Cardiology following closely and infectious disease as well for possible cellulitis of the right lower extremity. Patient on eliquis and continued on aspirin and effient. Patient blood sugars continue to be elevated and will continue with sliding scale, pre meal and long acting while hospitalized. Discussed with case management about discharge medications given patient has no medication coverage. Patient was up today and will have PT evaluate the patient. 12/30/2020 Patient is seen in follow-up this morning stating she is having increased sensation and pain and feels the right lower extremity and foot is more red and painful. Patient maintained on eliquis, aspirin, and Effient and there is some minimal bleeding noted of her previous ulcer at the amputation site of the fifth digit. Patient states she scuffled and had a slight fall in the bathroom last night and unsure if she hit that area. Patient denied hitting her head and states she fell slightly to her knees. She is weak and will have PT/OT evaluate the patient. Cardiology following as well and being transitioned to Plavix and will discontinue Effient. Patient has no insurance coverage case management working with the patient. Blood sugars continue to be elevated and uncontrolled and maintained on sliding scale, pre-meal, long acting and most recent hemoglobin A1c is 10.8. She is also continued on IV antibiotics with infectious disease following closely. We'll discuss about antibiotics on discharge. 12/31/2020 Patient is seen and evaluated this morning and continues with right foot and toe pain of the 4th digit. discoloration continues and will consult vascular surgery for possible amputation of the toe. Patient was maintained on eliquis, plavix, and aspirin and will need to hold eliquis for procedure that is being planned for Sunday with Dr. Padilla. Patient to continue with IV zosyn and ID following closely. 01/01/2021 Patient is seen in follow up today and is being scheduled for right 4th toe amputation tomorrow with Dr. Padilla. Eliquis on hold. Patient continues on IV antibiotics in the form of Zosyn and infectious disease following. Deep tissue cultures to be obtained and monitored. Repeat labs of CBC and BMP within normal limits. Blood sugars continue to be elevated but controlled on current medication regimen and will continue accuchecks and closely monitor. Patient tolerating diet with no reported nausea or vomiting and will be NPO at midnight for the surgery. 01/02/2021 Patient is seen and evaluated in follow up today status post right 4th toe amputation with Dr. Padilla at the metatarsal phalangeal joint. Patient also had excision of the lateral callus with deep tissues obtained and will await finalized cultures. Patient to continue on IV zosyn with ID following closely. Per nursing staff patient had some steady post-op bleeding noted and will hold aspirin and plavix. Eliquis remains on hold. Dr. Padilla in at the bedside for some mild cautery at the site and surgical dressing was changed and reinforced. Will discuss further with Dr. Padilla about resuming anticoagulant and antiplatelet therapy. Will order stat cbc and repeat am labs. 0........................................................................... ................................................................................ .................... ................................................................................ .................... ................................................................................ .................... ................................................................................ .................... ................................................................................ .................... ................................................................................ .................... ................................................................................ .................... ................................................................................ .................... ................................................................................ .................... ................................................................................ .................... ................................................................................ .................... ................................................................................ .................... ................................................................................ .................... ................................................................................ .................... ................................................................................ .................... ................................................................................ .................... ................................................................................ .................... ................................................................................ .................... ................................................................................ .................... ................................................................................ .................... ................................................................................ .................... ................................................................................ .................... ................................................................................ .................... ................................................................................ .................... ................................................................................ .................... ................................................................................ .................... ................................................................................ .................... ................................................................................ .................... ................................................................................ .................... ................................................................................ .................... ................................................................................ .................... ................................................................................ .................... ................................................................................ .................... ................................................................................ .................... ................................................................................ .................... ................................................................................ .................... ................................................................................ .................... ................................................................................ .................... ................................................................................ .................... ................................................................................ .................... ................................................................................ .................... ................................................................................ .................... ................................................................................ .................... ................................................................................ .................... ................................................................................ .................... ................................................................................ .................... ................................................................................ .................... ................................................................................ .................... ................................................................................ .................... ................................................................................ .................... ................................................................................ .................... ................................................................................ .................... ................................................................................ .................... ................................................................................ .................... ................................................................................ .................... ................................................................................ .................... ................................................................................ .................... ................................................................................ .................... ................................................................................ .................... ................................................................................ .................... ................................................................................ .................... ................................................................................ .................... ................................................................................ .................... ................................................................................ .................... ................................................................................ .................... ................................................................................ .................... ................................................................................ .................... ................................................................................ .................... ................................................................................ .................... ................................................................................ .................... ................................................................................ .................... ................................................................................ .................... ................................................................................ .................... ................................................................................ .................... ................................................................................ .................... ................................................................................ .................... ................................................................................ .................... ................................................................................ .................... ................................................................................ .................... ................................................................................ .................... ................................................................................ .................... ................................................................................ .................... ................................................................................ .................... ................................................................................ .................... ................................................................................ .................... ................................................................................ .................... ................................................................................ .................... ................................................................................ .................... ................................................................................ .................... ................................................................................ .................... ................................................................................ .................... ................................................................................ .................... ................................................................................ .................... ................................................................................ .................... ................................................................................ .................... ................................................................................ .................... ................................................................................ .................... ................................................................................ .................... ................................................................................ .................... ................................................................................ .................... ................................................................................ .................... ................................................................................ .................... ................................................................................ .................... ................................................................................ .................... ................................................................................ .................... ................................................................................ .................... ................................................................................ .................... ................................................................................ .................... ................................................................................ .................... ................................................................................ .................... ................................................................................ .................... ................................................................................ .................... ................................................................................ .................... ................................................................................ .................... ................................................................................ .................... ................................................................................ .................... ................................................................................ .................... ................................................................................ .................... ................................................................................ .................... ................................................................................ .................... ................................................................................ .................... ................................................................................ .................... ................................................................................ .................... ................................................................................ .................... ................................................................................ .................... ................................................................................ .................... ................................................................................ .................... ................................................................................ .................... ................................................................................ .................... ................................................................................ .................... ................................................................................ .................... ................................................................................ .................... ................................................................................ .................... ................................................................................ .................... ................................................................................ .................... ................................................................................ .................... ................................................................................ .................... ................................................................................ .................... ................................................................................ .................... ................................................................................ .................... ................................................................................ .................... ................................................................................ .................... ................................................................................ .................... ................................................................................ .................... ................................................................................ .................... ................................................................................ .................... ................................................................................ .................... ................................................................................ ..........................................................Review Review of systems: Constitutional: no reports of fatigue, no reports of fever, or chills Cardiovascular: No reports of chest pain or palpitations Respiratory: No reports of shortness of breath or cough GI: No reports of nausea, vomiting, or diarrhea : No reports of dysuria or retention Neurovascular: Reports generalized weakness and continued right lower extremity discomfort All medications have been reviewed Active Medications Hydrocodone Bitart/Acetaminophen (Hydrocodone/Apap 5-325mg 1 Each Tab) 1 each PO Q8HR PRN PRN Reason: Moderate Pain Last Admin: 01/01/21 18:52 Dose: 1 each Documented by: Alprazolam (Alprazolam 0.25 Mg Tab) 0.25 mg PO TID PRN PRN Reason: Anxiety Last Admin: 01/02/21 02:11 Dose: 0.25 mg Documented by: Aspirin (Aspirin 81 Mg) 81 mg PO DAILY [facility] Last Admin: 01/02/21 11:01 Dose: Not Given Documented by: Atorvastatin Calcium (Atorvastatin 80 Mg Tab) 80 mg PO [facility] Last Admin: 01/01/21 20:28 Dose: 80 mg Documented by: Clopidogrel Bisulfate (Clopidogrel 75 Mg Tab) 75 mg PO DAILY [facility] Last Admin: 01/02/21 12:22 Dose: Not Given Documented by: Duloxetine HCl (Duloxetine Hcl 60 Mg Capsule.Dr) 60 mg PO [facility] Last Admin: 01/01/21 20:28 Dose: 60 mg Documented by: Gabapentin (Gabapentin 300 Mg Cap) 900 mg PO [facility] Last Admin: 01/01/21 20:28 Dose: 900 mg Documented by: Hydromorphone HCl (Hydromorphone 0.5 Mg/0.5 Ml Syringe) 0.5 mg IVP Q3HR PRN PRN Reason: Moderate Pain Last Admin: 01/02/21 00:51 Dose: 0.5 mg Documented by: Sodium Chloride (Saline 0.9%) 1,000 mls @ 75 mls/hr IV .[id number] [facility] Last Admin: 01/02/21 09:37 Dose: 75 mls/hr Documented by: Ampicillin Sodium/Sulbactam (Sodium 3 gm/ Sodium Chloride) 100 mls @ 200 mls/hr IVPB Q6H [facility] Last Admin: 01/02/21 09:34 Dose: 200 mls/hr Documented by: Insulin Aspart (Insulin Aspart (Novolog) 100 Unit/Ml Vial) 15 unit SQ AC-TID [facility] Last Admin: 01/02/21 12:22 Dose: Not Given Documented by: Insulin Aspart (Insulin Aspart (Novolog) 100 Unit/Ml Vial) 0 unit SQ ACHS [facility]; Protocol Last Admin: 01/02/21 12:26 Dose: 3 unit Documented by: Insulin Detemir (Insulin Detemir (Levemir) 100 Unit/Ml Syr) 60 unit SQ HS [facility] Last Admin: 01/01/21 20:28 Dose: 60 unit Documented by: Melatonin (Melatonin 3 Mg Tablet) 6 mg PO HS PRN PRN Reason: Insomnia Last Admin: 01/01/21 20:28 Dose: 6 mg Documented by: Naloxone HCl (Naloxone 0.4 Mg/Ml 1 Ml Vial) 0.2 mg IV Q2M PRN PRN Reason: Opioid Reversal Nitroglycerin (Nitroglycerin Sl Tabs 0.4 Mg Tab) 0.4 mg SUBLINGUAL Q5M PRN PRN Reason: Chest Pain Ondansetron HCl (Ondansetron 4 Mg/2 Ml Vial) 4 mg IVP Q6HR PRN PRN Reason: Nausea And Vomiting Pantoprazole Sodium (Pantoprazole 40 Mg Tablet) 40 mg PO DAILY PRN PRN Reason: gerd Last Admin: 12/31/20 09:39 Dose: 40 mg Documented by: Physical exam: GENERAL: The patient is alert and oriented x3, not in any acute distress. Well developed, well nourished. HEENT: Pupils are round and equally reacting to light. EOMI. No scleral icterus. No conjunctival pallor. Normocephalic, atraumatic. No pharyngeal erythema. No thyromegaly. CARDIOVASCULAR: S1 and S2 present. No murmurs, rubs, or gallops. PULMONARY: Chest is clear to auscultation, no wheezing or crackles. ABDOMEN: Soft, nontender, nondistended, normoactive bowel sounds. No palpable organomegaly. MUSCULOSKELETAL: No joint swelling or deformity. EXTREMITIES: No cyanosis, clubbing, or pedal edema. Right lower extremity with some redness and inflammation, right foot surgical dressing redressed with pressure by Dr. Padilla NEUROLOGICAL: Gross neurological examination did not reveal any focal deficits. SKIN: No rashes. No petechiae status post 4th right digit of the foot amputation with 5th toe site callus excision and surgical dressings intact Assessment: Right fourth toe ischemia with gangrene. With recent history of amputation of the right fifth toe. status post amputation of right 4th toe and callus excision of the 5th toe site with DR. Padilla. Cultures obtained Acute blood loss anemia secondary to right foot post-op bleeding, will order stat cbc and continue to monitor. hold anticoagulant and antiplatelets for now. cbc pending occluded right superficial femoral artery and distal right superficial femoral artery stent status post angiogram of the right lower extremity with stenting of the SFA Peripheral vascular disease, status post stent to the left iliac artery Possible cellulitis of right lower extremity, continued on IV zosyn Diabetes mellitus, uncontrolled with hyperglycemia, present on admission Hypertension Hyperlipidemia History of GERD History of stroke with right hemiparesis History of coronary artery disease status post stent 3 Hiatal hernia Chronic back pain, status post spinal effusion and spinal stimulator History of degenerative neuritis/duodenal ulcer History of celiac disease Diabetic neuropathy GI prophylaxis: PPI DVT prophylaxis: On eliquis which will be held for now Full code Plan: Recommend to continue with current medication, management, and symptomatic treatment. Patient recently underwent surgical intervention for occlusion of the right superficial femoral artery and distal right superficial femoral artery stent with Dr. Lock and currently on Eliquis, plavix, aspirin and will hold contine to hold as patient underwent 4th toe amputation and had some post-op bleeding. Dressings reapplied and enforced. Stat CBC ordered and will monitor closely. Continue to hold anticoagulant and antiplatelets until discussing when vascular surgery about safely resuming. Dr. Padilla to evaluate again in the am with dressing change. Deep tissue cultures obtained and will await cultures. Recommend to continue with sliding scale, pre-meal, and long acting and continue with Accu-Cheks before meals and at bedtime. OK to resume diet. Further recommendations to follow based on the clinical course of the patient. Will repeat am labs. Prognosis is guarded. Objective - Vital Signs Vital signs: Vital Signs Temp 97.2 F L 01/02/21 09:40 Pulse 70 01/02/21 09:40 Resp 18 01/02/21 09:40 BP 106/72 01/02/21 09:40 Pulse Ox 94 L 01/02/21 09:40 Intake & Output 01/01/21 01/02/21 01/02/21 18:59 06:59 18:59 Intake Total 2520 260 300 Output Total 2 50 Balance 2520 258 250 Weight 68.4 kg Intake: IV 1400 300 Ampicillin-Sulbactam 3 gm 200 In Sodium Chloride 0.9% 100 ml @ 200 mls/hr IVPB Q6H [facility] Rx#:[id number] Sodium Chloride 0.9% 1, 1200 000 ml @ 75 mls/hr IV . [id number] [facility]ALY Rx#:[id number] Oral 1120 260 Output: Stool 2 Estimated Blood Loss 50 Other: Voiding Method Toilet # Voids 1 1 ABP, PAP, CO, CI - Last Documented Arterial Blood Pressure 130/66 - Labs CBC & Chem 7: 12/31/20 10:01 12/31/20 10:01 Labs: Abnormal Lab Results - Last 24 Hours (Table) 01/01/21 01/01/21 01/02/21 Range/Units 17:17 20:22 06:04 POC Glucose (mg/dL) 175 H 191 H 172 H (75-99) mg/dL
[2021-01-02 13:06] LABS: Basophils % (A) 0 %; Eosinophils # (A) 0.2 k/uL (0-0.7); Eosinophils % (A) 3 %; HCT 29.7 % (34.0-46.0); HGB 10.7 gm/dL (11.4-16.0); Hyperchromasia Slight; Lymphocytes # (A) 1.6 k/uL (1.0-4.8); Lymphocytes % (A) 27 %; MCH 30.8 pg (25.0-35.0); MCHC 36.2 g/dL (31.0-37.0); Mean Platelet Volume 8.2; Monocytes # (A) 0.3 k/uL (0-1.0); Monocytes % (A) 5 %; Neutrophils # (A) 3.8 k/uL (1.3-7.7); Neutrophils % (A) 63 %; Platelet Count 206 k/uL (150-450); Poikilocytosis Slight; RBC 3.49 m/uL (3.80-5.40); RDW 14.4 % (11.5-15.5); WBC 6.1 k/uL (3.8-10.6)
[2021-01-02 13:10] LABS: ALT 11 U/L (4-34); AST 13 U/L (14-36); African American GFR (CKD) >90 (>60 ml/min/1.73 sqM); Albumin 2.6 g/dL (3.5-5.0); Alkaline Phosphatase 54 U/L (38-126); Anion Gap 5 mmol/L; Blood Urea Nitrogen 5 mg/dL (7-17); Calcium 7.9 mg/dL (8.4-10.2); Carbon Dioxide 29 mmol/L (22-30); Chloride 103 mmol/L (98-107); Glucose 225 mg/dL (74-99); Magnesium 1.6 mg/dL (1.6-2.3); Non-African American GFR(CKD) >90 (>60 ml/min/1.73 sqM); Potassium 3.8 mmol/L (3.5-5.1); Sodium 137 mmol/L (137-145); Total Bilirubin 0.3 mg/dL (0.2-1.3)
--- NOTE | 2021-01-02 13:17 | P.PN ---
Subjective Progress Note Date: 01/02/21 HISTORY OF PRESENTING ILLNESS Patient is a pleasant 60-year-old female with history of coronary artery dis ease, PAD, diabetes mellitus, hyperlipidemia, tobacco abuse who presents secondary to right lower extremity pain and discoloration of her toe. Patient does have a history of PAD with prior right SFA stenting 07/2020. She had done very well since that standpoint however over the last 2 weeks has noticed increased pain even while at rest. She therefore came to the emergency department 12/13/2020 where a lower extremity venous ultrasound was performed however there was also note of a right SFA occluded stent. Patient was then scheduled to follow-up with Dr. Lock however was not able to. She was restarted on Effient. She had pain which was worse when she was having her leg dependent however over the last 24-48 hours she has noticed that the right toe is somewhat more purple and dusky and therefore presented to emergency department. She admits pain has been fairly well controlled with morphine. She was started on a heparin drip. A CTA was performed which showed patent right common and external iliac stents, occluded right SFA and distal right SFA stent, multiple mild stenoses on the left with 3 vessel runoff bilaterally. 12/30/2020 Patient underwent stenting of the right SFA with Dr. Lock on 12-28-2020. Patient reports she has more sensation to her right foot today. Vital signs are stable. She is currently on Eliquis, effient, and aspirin. Per case management, the patient does not have rx insurance coverage. 01/01/2021: Patient is seen today in follow-up on the cardiac stepdown unit. Patient's toe is still ischemic and seen as a consult with plan for amputation on Sunday morning. She is continued on IV antibiotics the form of Patient denies any chest pain or shortness of breath. 01/02/2021: Patient underwent amputation this morning with Dr. Padilla but he dias s been called back due to bleeding through her dressing. Plavix is currently on hold and can be resumed once cleared by Dr. Padilla. Patient is also to resume/start eliquis which will be on hold until cleared by Dr. Padilla. PHYSICAL EXAMINATION Vital signs: Blood pressure 101/58, heart rate 71, pulse ox 95% on room air, afebrile.. CONSTITUTIONAL: No apparent distress. HEENT: Head is normocephalic. Pupils are equal, round. Sclerae anicteric. Mucous membranes of the mouth are moist. No JVD. No carotid bruit. CHEST EXAMINATION: Lungs are clear to auscultation. No chest wall tenderness is noted on palpation or with deep breathing. HEART EXAMINATION: Regular rate and rhythm. S1, S2 heard. No murmurs, gallops or rub. ABDOMEN: Soft, nontender. Positive bowel sounds. EXTREMITIES: Dressing in place to the right foot, distal dressing is saturated with blood, Dr. Randy mcguire bedside NEUROLOGIC EXAMINATION: Patient is awake, alert and oriented x3. ASSESSMENT 1. Acute limb ischemia with gangrenous changes to the right foot fourth toe 2. History of PAD status post right SFA stenting 3. Coronary artery disease 4. Hypertension 5. Hyperlipidemia 6. Diabetes mellitus PLAN Vascular consult with Dr. Padilla status post amputation of the right fourth toe 01/02 Continue recommendations from infectious disease Hold Eliquis for surgical intervention. Patient will receive 1 month free at discharge. Continue aspirin, Plavix 75mg. Further recommendations pending patient course Nurse practitioner note has been reviewed by physician. Signing provider agrees with the documented findings, assessment, and plan of care. Objective - Vital Signs Vital signs: Vital Signs Temp 97.2 F L 01/02/21 09:40 Pulse 70 01/02/21 09:40 Resp 18 01/02/21 09:40 BP 106/72 01/02/21 09:40 Pulse Ox 94 L 01/02/21 09:40 Intake & Output 01/01/21 01/02/21 01/02/21 18:59 06:59 18:59 Intake Total 2520 260 300 Output Total 2 50 Balance 2520 258 250 Weight 68.4 kg Intake: IV 1400 300 Ampicillin-Sulbactam 3 gm 200 In Sodium Chloride 0.9% 100 ml @ 200 mls/hr IVPB Q6H [facility] Rx#:[id number] Sodium Chloride 0.9% 1, 1200 000 ml @ 75 mls/hr IV . [id number] [facility] Rx#:[id number] Oral 1120 260 Output: Stool 2 Estimated Blood Loss 50 Other: Voiding Method Toilet # Voids 1 1 ABP, PAP, CO, CI - Last Documented Arterial Blood Pressure 130/66 - Labs CBC & Chem 7: 01/02/21 12:33 01/02/21 12:36 Labs: Abnormal Lab Results - Last 24 Hours (Table) 01/01/21 01/01/21 01/02/21 Range/Units 17:17 20:22 06:04 POC Glucose (mg/dL) 175 H 191 H 172 H (75-99) mg/dL 01/02/21 Range/Units 11:21 POC Glucose (mg/dL) 235 H (75-99) mg/dL
[2021-01-02 17:15] LABS: Glucose,Whole Blood 176 mg/dL (75-99)
[2021-01-02] MEDS: MELATONIN 3 MG TABLET PO PRN (20:29)
[2021-01-02] MEDS: ATORVASTATIN 80 MG TAB PO SCH (20:29)
[2021-01-02] MEDS: INSULIN DETEMIR (LEVEMIR) 100 UNIT/ML SYR SQ SCH (20:29)
[2021-01-02] MEDS: GABAPENTIN 300 MG CAP PO SCH (20:29)
[2021-01-02] MEDS: DULoxetine HCL 60 MG CAPSULE.DR PO SCH (20:29)
[2021-01-02 20:32] LABS: Glucose,Whole Blood 267 mg/dL (75-99)
[2021-01-02 23:58] LABS: Glucose,Whole Blood 205 mg/dL (75-99)
--- NOTE | 2021-01-03 00:27 | PN ---
PROGRESS NOTE DATE OF SERVICE: 01/02/2021 REASON FOR FOLLOWUP: Right fourth toe ischemia and possible cellulitis. INTERVAL HISTORY: The patient is afebrile. The patient is status post right fourth toe amputation and debridement of the wound. Patient tolerated the procedure. Pain is currently controlled. No chest pain, shortness of breath or cough. No abdominal pain or diarrhea. PHYSICAL EXAMINATION: Blood pressure 103/54, pulse of 72, temperature 97.9. She is 95% on room air. General description is a middle-aged female lying in bed in no distress. Respiratory system: Unlabored breathing, clear to auscultation anteriorly. Heart S1, S2. Regular rate and rhythm. Abdomen soft, no tenderness. Right foot is currently dressed. No obvious drainage on the dressing. LABS: Hemoglobin is 10.7, white count 6.1, creatinine 0.37. DIAGNOSTIC IMPRESSION AND PLAN: Patient with right fourth toe gangrene, status post amputation of infected toe and debridement of the wound. Cultures currently pending. Patient is covered with Unasyn. Monitor clinical course closely. MMODL / IJN: [id number] /
[2021-01-03] MEDS: HYDROmorphone 0.5 MG/0.5 ML SYRINGE IVP PRN ×5 (02:10→21:04)
[2021-01-03] MEDS: AMPICILLIN-SULBACTAM 3 GM in SODIUM CHLORIDE 0.9% 100 ML IVPB SCH ×4 (02:13→21:03)
[2021-01-03] MEDS: SODIUM CHLORIDE 0.9% 1,000 ML IV SCH ×2 (03:27→08:31)
[2021-01-03 06:38] LABS: Glucose,Whole Blood 218 mg/dL (75-99)
[2021-01-03] MEDS: INSULIN ASPART (NovoLOG) 100 UNIT/ML VIAL SQ SCH ×6 (06:52→17:23)
[2021-01-03 08:21] LABS: Basophils % (A) 0 %; Eosinophils # (A) 0.2 k/uL (0-0.7); Eosinophils % (A) 3 %; HCT 28.3 % (34.0-46.0); HGB 9.8 gm/dL (11.4-16.0); Lymphocytes # (A) 1.6 k/uL (1.0-4.8); Lymphocytes % (A) 28 %; MCH 30.3 pg (25.0-35.0); MCHC 34.5 g/dL (31.0-37.0); MCV 87.8 fL (80.0-100.0); Mean Platelet Volume 8.1; Monocytes # (A) 0.3 k/uL (0-1.0); Monocytes % (A) 5 %; Neutrophils # (A) 3.5 k/uL (1.3-7.7); Neutrophils % (A) 62 %; Platelet Count 185 k/uL (150-450); Poikilocytosis Slight; RBC 3.22 m/uL (3.80-5.40); RDW 14.3 % (11.5-15.5); WBC 5.7 k/uL (3.8-10.6)
[2021-01-03 08:37] LABS: African American GFR (CKD) >90 (>60 ml/min/1.73 sqM); Anion Gap 5 mmol/L; Blood Urea Nitrogen 7 mg/dL (7-17); Calcium 8.1 mg/dL (8.4-10.2); Carbon Dioxide 30 mmol/L (22-30); Chloride 100 mmol/L (98-107); Glucose 213 mg/dL (74-99); Non-African American GFR(CKD) >90 (>60 ml/min/1.73 sqM); Potassium 3.6 mmol/L (3.5-5.1); Sodium 135 mmol/L (137-145)
[2021-01-03] MEDS: ASPIRIN 81 MG PO SCH (09:11)
[2021-01-03] MEDS: CLOPIDOGREL 75 MG TAB PO SCH (09:11)
[2021-01-03] MEDS: APIXABAN 2.5 MG TABLET PO SCH ×2 (09:19→21:03)
[2021-01-03] MEDS: ONDANSETRON 4 MG/2 ML VIAL IVP PRN (10:55)
[2021-01-03] MEDS: HYDROcodone/APAP 5-325MG 1 EACH TAB PO PRN (10:55)
[2021-01-03] MEDS: ALPRAZolam 0.25 MG TAB PO PRN ×2 (10:55→21:03)
[2021-01-03 12:01] LABS: Glucose,Whole Blood 207 mg/dL (75-99)
[2021-01-03] MEDS ORDERED: SILVER NITRATE APPLICATOR 1 EACH STICK..EA. TOPICAL STA (13:12)
--- NOTE | 2021-01-03 14:45 | PN ---
PROGRESS NOTE This lady has significant peripheral vascular disease, underwent amputation of the right fourth toe. She has some pain but is doing better. Blood pressure is decent. Pain control has improved. She has no chest pain, or shortness of breath. Her vitals are stable. Plan is to continue current medical regimen and she can be discharged whenever it is okay by the admitting physician. She is currently anticoagulated on aspirin and Plavix as well. She will see Dr. Lock in about 2 weeks or so. She will follow up with Dr. Padilla. Vital signs stable. No JVD. S1, S2 heard normally. Short systolic murmur noted. Lungs revealed diminished air entry. Abdomen is soft. Lower extremities are diminished pulses. Amputation site is bandaged. RECOMMENDATIONS: Same medical regimen. Okay for discharge from a cardiac standpoint. Dr. Lock will follow as outpatient. MMREMBERTOL / VLAD: [id number] /
--- NOTE | 2021-01-03 15:30 | PN ---
PROGRESS NOTE DATE OF SERVICE: 01/03/2021 This 60-year-old woman who was admitted for right fourth toe ischemic gangrene had amputation. No chest pain. No palpitations. No fever. PHYSICAL EXAMINATION: Alert and oriented. Pulse is 75, blood pressure 170/62, respiration 18, temperature 98.2, pulse ox 98% on room air. HEENT: Conjunctivae normal. NECK: No jugular venous distention. CARDIOVASCULAR: S1, S2 muffled. RESPIRATION: Breath sounds diminished at the bases. No rhonchi. No crackles. ABDOMEN: Soft. RIGHT FOOT: Status post surgery. LABS: WBC 5.7, hemoglobin 9.2, sodium 135. Glucose noted. ASSESSMENT: 1. Right fourth toe ischemic gangrene, status post amputation. 2. Right fourth toe infected gangrene and amputation. 3. Acute blood loss anemia. 4. Possible cellulitis of right lower extremity. 5. Diabetes mellitus, type 2. 6. Hypertension. 7. Hyperlipidemia. 8. History of gastroesophageal reflux disease. 9. History of stroke with right hemiparesis. 10.History of coronary artery disease, stents x3. 11.History of hiatal hernia. 12.History of chronic back pain. 13.Degenerative joint disease. 14.History of celiac disease. 15.Diabetic neuropathy. 16.FULL CODE. RECOMMENDATIONS AND DISCUSSION: I recommend to continue current medications, continue with symptomatic treatment. Continue with current antibiotics. The patient is on Unasyn at this time. The cultures are negative so far. Will await Dr. Patricio's recommendations for outpatient antibiotics. Otherwise, closely follow with Surgery. The patient is started on anticoagulants. Watch for any further bleeding. Repeat labs will be ordered. Guarded prognosis. Further recommendations to follow. Stop the IV fluid. MMODL / IJN: [id number] /
[2021-01-03 16:48] LABS: Glucose,Whole Blood 201 mg/dL (75-99)
--- NOTE | 2021-01-03 18:32 | PN ---
PROGRESS NOTE DATE OF SERVICE: 01/03/2021 REASON FOR FOLLOW UP: Right fourth toe gangrene with question of cellulitis. INTERVAL HISTORY: Patient is afebrile. The patient is currently breathing comfortably. Still has pain to the right foot amputation site, but no worsening. No chest pain, shortness of breath or cough. No abdominal pain or diarrhea. PHYSICAL EXAMINATION: Blood pressure 110/64, pulse of 73, temperature 98.3. She is 97 percent on room air. General description is a middle-aged female lying in bed in no distress. Respiratory system: Unlabored breathing. Clear to auscultation anteriorly. Heart S1, S2. Regular rate and rhythm. Abdomen soft, no tenderness. Right foot amputation site is currently dressed. No drainage on the dressing. LABS: Hemoglobin 9.1, white count 5.7, creatinine 0.44. Culture was done, results so far pending. DIAGNOSTIC IMPRESSION AND PLAN: This patient with right fourth toe gangrene and concern for possible status post debridement and amputation of the fourth toe. Cultures are currently pending. Patient empirically is covered with Unasyn, with discharge antibiotic based on culture report. Continue supportive care. MMODL / IJN: [id number] /
[2021-01-03 20:21] LABS: Glucose,Whole Blood 132 mg/dL (75-99)
--- NOTE | 2021-01-03 20:36 | PN ---
PROGRESS NOTE This 60-year-old diabetic female patient came with ischemic left foot fourth toe with callus formation. Patient went for ray amputation. Today we have changed the dressing and we used Aquacel Silver, which will be continued. Culture is pending. MMODL / IJN: [id number] /
[2021-01-03] MEDS: MELATONIN 3 MG TABLET PO PRN (21:00)
[2021-01-03] MEDS: ATORVASTATIN 80 MG TAB PO SCH (21:01)
[2021-01-03] MEDS: GABAPENTIN 300 MG CAP PO SCH (21:01)
[2021-01-03] MEDS: DULoxetine HCL 60 MG CAPSULE.DR PO SCH (21:03)
[2021-01-03] MEDS: INSULIN DETEMIR (LEVEMIR) 100 UNIT/ML SYR SQ SCH (21:03)
[2021-01-04] MEDS: HYDROcodone/APAP 5-325MG 1 EACH TAB PO PRN ×3 (00:10→18:02)
[2021-01-04] MEDS: INSULIN ASPART (NovoLOG) 100 UNIT/ML VIAL SQ SCH ×8 (04:37→21:22)
[2021-01-04] MEDS: AMPICILLIN-SULBACTAM 3 GM in SODIUM CHLORIDE 0.9% 100 ML IVPB SCH ×4 (04:43→22:29)
[2021-01-04 06:06] LABS: Glucose,Whole Blood 217 mg/dL (75-99)
[2021-01-04] MEDS: APIXABAN 2.5 MG TABLET PO SCH ×2 (08:21→21:23)
[2021-01-04] MEDS: ASPIRIN 81 MG PO SCH (08:21)
[2021-01-04] MEDS: CLOPIDOGREL 75 MG TAB PO SCH (08:21)
[2021-01-04] MEDS: FENOFIBRATE 160 MG TAB PO SCH (08:21)
[2021-01-04 08:38] LABS: Basophils % (A) 0 %; Eosinophils # (A) 0.2 k/uL (0-0.7); Eosinophils % (A) 3 %; HCT 31.9 % (34.0-46.0); HGB 10.9 gm/dL (11.4-16.0); Lymphocytes # (A) 2.1 k/uL (1.0-4.8); Lymphocytes % (A) 36 %; MCH 30.1 pg (25.0-35.0); MCHC 34.1 g/dL (31.0-37.0); MCV 88.4 fL (80.0-100.0); Mean Platelet Volume 7.8; Monocytes # (A) 0.3 k/uL (0-1.0); Monocytes % (A) 5 %; Neutrophils # (A) 3.1 k/uL (1.3-7.7); Neutrophils % (A) 53 %; Platelet Count 215 k/uL (150-450); Poikilocytosis Slight; RBC 3.61 m/uL (3.80-5.40); RDW 14.2 % (11.5-15.5); WBC 5.8 k/uL (3.8-10.6)
[2021-01-04 08:53] LABS: African American GFR (CKD) >90 (>60 ml/min/1.73 sqM); Anion Gap 7 mmol/L; Blood Urea Nitrogen 5 mg/dL (7-17); Calcium 8.9 mg/dL (8.4-10.2); Carbon Dioxide 28 mmol/L (22-30); Chloride 102 mmol/L (98-107); Glucose 165 mg/dL (74-99); Non-African American GFR(CKD) >90 (>60 ml/min/1.73 sqM); Potassium 3.7 mmol/L (3.5-5.1); Sodium 137 mmol/L (137-145)
--- NOTE | 2021-01-04 10:08 | P.PN ---
Subjective This is a pleasant 60-year-old female status post right fourth toe amputation. She is seen and examined sitting up in bed in no acute distress. She denies symptoms of chest discomfort or shortness of breath. She continues to have discomfort in her foot and leg. Blood pressure 98/62 heart rate 76 afebrile maintaining oxygen saturation on room air. GENERAL: Well-appearing, well-nourished and in no acute distress. NECK: Supple without JVD or thyromegaly. LUNGS: Breath sounds clear to auscultation bilaterally. Respiration equal and unlabored. No wheezes, rales or rhonchi. HEART: Regular rate and rhythm with systolic ejection murmur at the base, no rubs or gallops. S1 and S2 heard. EXTREMITIES: Normal range of motion, no edema. Mitul wrap in place to right lower extremity. No clubbing or cyanosis. Peripheral pulses intact. ASSESSMENT Status post right fourth toe amputation Peripheral vascular disease Dyslipidemia Diabetes mellitus Hypertension PLAN Continue current medical regimen. Increase activity as tolerated with physical therapy. Follow-up upon discharge with Dr. Lock. We will follow along as needed. Nurse Practitioner note has been reviewed, I agree with a documented findings and plan of care. Patient was seen and examined. Objective - Vital Signs Vital signs: Vital Signs Temp 97.9 F 01/04/21 08:00 Pulse 76 01/04/21 08:00 Resp 16 01/04/21 08:00 BP 98/62 01/04/21 08:00 Pulse Ox 95 01/04/21 08:00 Intake & Output 01/03/21 01/04/21 01/04/21 18:59 06:59 18:59 Intake Total 1440 222 Output Total 225 1750 Balance 1215 -1528 Weight 74 kg Intake: IV 700 Ampicillin-Sulbactam 3 gm 100 In Sodium Chloride 0.9% 100 ml @ 200 mls/hr IVPB Q6H [facility] Rx#:[id number] Sodium Chloride 0.9% 1, 600 000 ml @ 75 mls/hr IV . [id number] [facility] Rx#:[id number] Oral 740 222 Output: Urine 225 1750 Other: Voiding Method Toilet ABP, PAP, CO, CI - Last Documented Arterial Blood Pressure 130/66 - Labs CBC & Chem 7: 01/04/21 07:38 01/04/21 07:38 Labs: Abnormal Lab Results - Last 24 Hours (Table) 01/03/21 01/03/21 01/03/21 Range/Units 11:58 16:43 20:20 RBC (3.80-5.40) m/uL Hgb (11.4-16.0) gm/dL Hct (34.0-46.0) % BUN (7-17) mg/dL Creatinine (0.52-1.04) mg/dL Glucose (74-99) mg/dL POC Glucose (mg/dL) 207 H 201 H 132 H (75-99) mg/dL 01/04/21 01/04/21 01/04/21 Range/Units 06:05 07:38 07:38 RBC 3.61 L (3.80-5.40) m/uL Hgb 10.9 L (11.4-16.0) gm/dL Hct 31.9 L (34.0-46.0) % BUN 5 L (7-17) mg/dL Creatinine 0.39 L (0.52-1.04) mg/dL Glucose 165 H (74-99) mg/dL POC Glucose (mg/dL) 217 H (75-99) mg/dL Microbiology - Last 24 Hours (Table) 01/02/21 08:36 Gram Stain - Preliminary Foot - Right Tissue Culture - Preliminary
[2021-01-04 11:58] LABS: Glucose,Whole Blood 168 mg/dL (75-99)
[2021-01-04] MEDS: HYDROmorphone 0.5 MG/0.5 ML SYRINGE IVP PRN ×2 (12:27→22:29)
--- NOTE | 2021-01-04 15:49 | P.PN ---
Subjective Progress Note Date: 01/04/21 This is a pleasant 70 years old female with past medical history of CVA/TIA, Di abetes Mellitus, GERD, Hyperlipidemia, Hypertension, s/p Right 5th toe am putation with stent to left iliac artery., neuropathy bilateral feet, pancreatitis X2, CVA with right sided weakness, celiac disease, chronic low back pain, duodenitis/duodenal ulcer, hiatal hernia,Back Surgery, Cholecystectomy, Heart Catheterization With Stent x3, , Status post lumbar fusion, spinal cord stimulator, She underwent successful balloon angioplasty of the right femoral artery by Dr. Cruz on 08/11/2020 Also she has history of fifth toe amputation by Dr. Padilla vascular surgery Vitals are stable Labs including CBC, INR, BMP and liver enzymes are unremarkable. Coronavirus nondetected Glucose elevated 303 EKG showing normal sinus rhythm at [address]-T changes lower extremity CTA : Patent right common and external renal iliac stents with mild diffuse narrowing, no significant flow stenosis on the left. Occluded right superficial femoral artery and right femoral artery stent. also was started on normal saline at 75 mL/h and consulted cardiology team. Also patient was started on heparin drip Emergency room he was started on heparin drip and pain management 12/27/2020 Patient is seen and evaluated and follow-up this morning continues to be on IV heparin with cardiology following and plan is for surgical intervention for the occluded right superficial femoral artery at the placement of the stent. Patient states her pain is controlled and she feels well today. Patient is nothing by mouth for the procedure and will be going to the ICU under close monitoring status post intervention. Will await surgical report. 12/28/2020 Patient is seen in follow up this morning and is being closely monitored in the IU. Patient is status post angiogram with TPA administration with Dr. Lock. Patient is scheduled to undergo further evaluation of the right artery and thrombus. Patient states that she is having tenderness and more pain to the right lower extremity. Patient also states that she did not have a very good night of sleep and feels exhausted. Will add melatonin. Patient continued on IV heparin with plans of switching over to eliquis. Case management following and patient states she has no prescription coverage. Patient has been buying her insulin at [facility] and is 70/30 and uses sliding scale. Will continue accuchecks with meals and at bedtime and continue current sliding scale and long acting and discuss further about medications on discharge. 12/29/2020 Patient is seen and evaluated in the ICU this morning and awaiting transfer to [address] [place] [address]. Cardiology following closely and infectious disease as well for possible cellulitis of the right lower extremity. Patient on eliquis and continued on aspirin and effient. Patient blood sugars continue to be elevated and will continue with sliding scale, pre meal and long acting while hospitalized. Discussed with case management about discharge medications given patient has no medication coverage. Patient was up today and will have PT evaluate the patient. 12/30/2020 Patient is seen in follow-up this morning stating she is having increased sensation and pain and feels the right lower extremity and foot is more red and painful. Patient maintained on eliquis, aspirin, and Effient and there is some minimal bleeding noted of her previous ulcer at the amputation site of the fifth digit. Patient states she scuffled and had a slight fall in the bathroom last night and unsure if she hit that area. Patient denied hitting her head and states she fell slightly to her knees. She is weak and will have PT/OT evaluate the patient. Cardiology following as well and being transitioned to Plavix and will discontinue Effient. Patient has no insurance coverage case management working with the patient. Blood sugars continue to be elevated and uncontrolled and maintained on sliding scale, pre-meal, long acting and most recent hemoglobin A1c is 10.8. She is also continued on IV antibiotics with infectious disease following closely. We'll discuss about antibiotics on discharge. 12/31/2020 Patient is seen and evaluated this morning and continues with right foot and toe pain of the 4th digit. discoloration continues and will consult vascular surgery for possible amputation of the toe. Patient was maintained on eliquis, plavix, and aspirin and will need to hold eliquis for procedure that is being planned for Sunday with Dr. Padilla. Patient to continue with IV zosyn and ID following closely. 01/01/2021 Patient is seen in follow up today and is being scheduled for right 4th toe amputation tomorrow with Dr. Padilla. Eliquis on hold. Patient continues on IV antibiotics in the form of Zosyn and infectious disease following. Deep tissue cultures to be obtained and monitored. Repeat labs of CBC and BMP within normal limits. Blood sugars continue to be elevated but controlled on current medication regimen and will continue accuchecks and closely monitor. Patient tolerating diet with no reported nausea or vomiting and will be NPO at midnight for the surgery. 01/02/2021 Patient is seen and evaluated in follow up today status post right 4th toe amputation with Dr. Padilla at the metatarsal phalangeal joint. Patient also had excision of the lateral callus with deep tissues obtained and will await finalized cultures. Patient to continue on IV zosyn with ID following closely. Per nursing staff patient had some steady post-op bleeding noted and will hold aspirin and plavix. Eliquis remains on hold. Dr. Padilla in at the bedside for some mild cautery at the site and surgical dressing was changed and reinforced. Will discuss further with Dr. Padilla about resuming anticoagulant and antiplatelet therapy. Will order stat cbc and repeat am labs. 01/04/2021 Patient is seen and evaluated in follow-up and Dr. Padilla has evaluated the patient and dressing change status post right fourth toe amputation for ischemic gangrene and possible concerns for cellulitis of the right foot. Infectious disease also following and patient is maintained on IV Zosyn and will continue while awaiting for deep tissue cultures to finalize to determine discharge antibiotics. Preliminary showing no growth to date and will discuss further with infectious disease about discharge planning. She having some mild abdominal discomfort and states she has not had a bowel movement and will order bowel regimen. Labs: White blood count is 5.8, hemoglobin is 10.9, platelets are 2:15, sodium is 137, potassium is 3.7, BUN is 5, creatinine is 0.39, calcium is 8.9. 0............................................................................. ................................................................................ .................... ................................................................................ .................... ................................................................................ .................... ................................................................................ .................... ................................................................................ .................... ................................................................................ .................... ................................................................................ .................... ................................................................................ .................... ................................................................................ .................... ................................................................................ .................... ................................................................................ .................... ................................................................................ .................... ................................................................................ .................... ................................................................................ .................... ................................................................................ .................... ................................................................................ .................... ................................................................................ .................... ................................................................................ .................... ................................................................................ .................... ................................................................................ .................... ................................................................................ .................... ................................................................................ .................... ................................................................................ .................... ................................................................................ .................... ................................................................................ .................... ................................................................................ .................... ................................................................................ .................... ................................................................................ .................... ................................................................................ .................... ................................................................................ .................... ................................................................................ .................... ................................................................................ .................... ................................................................................ .................... ................................................................................ .................... ................................................................................ .................... ................................................................................ .................... ................................................................................ .................... ................................................................................ .................... ................................................................................ .................... ................................................................................ .................... ................................................................................ .................... ................................................................................ .................... ................................................................................ .................... ................................................................................ .................... ................................................................................ .................... ................................................................................ .................... ................................................................................ .................... ................................................................................ .................... ................................................................................ .................... ................................................................................ .................... ................................................................................ .................... ................................................................................ .................... ................................................................................ .................... ................................................................................ .................... ................................................................................ .................... ................................................................................ .................... ................................................................................ .................... ................................................................................ .................... ................................................................................ .................... ................................................................................ .................... ................................................................................ .................... ................................................................................ .................... ................................................................................ .................... ................................................................................ .................... ................................................................................ .................... ................................................................................ .................... ................................................................................ .................... ................................................................................ .................... ................................................................................ .................... ................................................................................ .................... ................................................................................ .................... ................................................................................ .................... ................................................................................ .................... ................................................................................ .................... ................................................................................ .................... ................................................................................ .................... ................................................................................ .................... ................................................................................ .................... ................................................................................ .................... ................................................................................ .................... ................................................................................ .................... ................................................................................ .................... ................................................................................ .................... ................................................................................ .................... ................................................................................ .................... ................................................................................ .................... ................................................................................ .................... ................................................................................ .................... ................................................................................ .................... ................................................................................ .................... ................................................................................ .................... ................................................................................ .................... ................................................................................ .................... ................................................................................ .................... ................................................................................ .................... ................................................................................ .................... ................................................................................ .................... ................................................................................ .................... ................................................................................ .................... ................................................................................ .................... ................................................................................ .................... ................................................................................ .................... ................................................................................ .................... ................................................................................ .................... ................................................................................ .................... ................................................................................ .................... ................................................................................ .................... ................................................................................ .................... ................................................................................ .................... ................................................................................ .................... ................................................................................ .................... ................................................................................ .................... ................................................................................ .................... ................................................................................ .................... ................................................................................ .................... ................................................................................ .................... ................................................................................ .................... ................................................................................ .................... ................................................................................ .................... ................................................................................ .................... ................................................................................ .................... ................................................................................ .................... ................................................................................ .................... ................................................................................ .................... ................................................................................ .................... ................................................................................ .................... ................................................................................ .................... ................................................................................ .................... ................................................................................ .................... ................................................................................ .................... ................................................................................ .................... ................................................................................ .................... ................................................................................ .................... ................................................................................ .................... ................................................................................ .................... ................................................................................ .................... ................................................................................ .................... ................................................................................ .................... ................................................................................ .................... ................................................................................ .................... ................................................................................ .................... ................................................................................ .................... ................................................................................ .................... ................................................................................ .................... ................................................................................ .................... ................................................................................ .................... ................................................................................ .................... ................................................................................ ........................................................Review Review of systems: Constitutional: no reports of fatigue, no reports of fever, or chills Cardiovascular: No reports of chest pain or palpitations Respiratory: No reports of shortness of breath or cough GI: No reports of nausea, vomiting, or diarrhea : No reports of dysuria or retention Neurovascular: Reports generalized weakness and continued right lower extremity discomfort All medications have been reviewed Active Medications Hydrocodone Bitart/Acetaminophen (Hydrocodone/Apap 5-325mg 1 Each Tab) 1 each PO Q8HR PRN PRN Reason: Moderate Pain Last Admin: 01/04/21 08:21 Dose: 1 each Documented by: Alprazolam (Alprazolam 0.25 Mg Tab) 0.25 mg PO TID PRN PRN Reason: Anxiety Last Admin: 01/03/21 21:03 Dose: 0.25 mg Documented by: Apixaban (Apixaban 2.5 Mg Tablet) 2.5 mg PO BID [facility] [place]; Protocol Last Admin: 01/04/21 08:21 Dose: 2.5 mg Documented by: Aspirin (Aspirin 81 Mg) 81 mg PO DAILY [facility] [place] Last Admin: 01/04/21 08:21 Dose: 81 mg Documented by: Atorvastatin Calcium (Atorvastatin 80 Mg Tab) 80 mg PO HS [facility] [place] Last Admin: 01/03/21 21:01 Dose: 80 mg Documented by: Clopidogrel Bisulfate (Clopidogrel 75 Mg Tab) 75 mg PO DAILY [facility] [place] Last Admin: 01/04/21 08:21 Dose: 75 mg Documented by: Duloxetine HCl (Duloxetine Hcl 60 Mg Capsule.Dr) 60 mg PO HS [facility] Last Admin: 01/03/21 21:03 Dose: 60 mg Documented by: Fenofibrate (Fenofibrate 160 Mg Tab) 160 mg PO DAILY [facility] [place] Last Admin: 01/04/21 08:21 Dose: 160 mg Documented by: Gabapentin (Gabapentin 300 Mg Cap) 900 mg PO [facility] Last Admin: 01/03/21 21:01 Dose: 900 mg Documented by: Hydromorphone HCl (Hydromorphone 0.5 Mg/0.5 Ml Syringe) 0.5 mg IVP Q3HR PRN PRN Reason: Moderate Pain Last Admin: 01/04/21 12:27 Dose: 0.5 mg Documented by: Ampicillin Sodium/Sulbactam (Sodium 3 gm/ Sodium Chloride) 100 mls @ 200 mls/hr IVPB Q6H [facility] [facility] Last Admin: 01/04/21 08:22 Dose: 200 mls/hr Documented by: Insulin Aspart (Insulin Aspart (Novolog) 100 Unit/Ml Vial) 15 unit SQ AC-TID [facility] [place] Last Admin: 01/04/21 12:27 Dose: 15 unit Documented by: Insulin Aspart (Insulin Aspart (Novolog) 100 Unit/Ml Vial) 0 unit SQ [facility]; Protocol Last Admin: 01/04/21 12:27 Dose: 2 unit Documented by: Insulin Detemir (Insulin Detemir (Levemir) 100 Unit/Ml Syr) 60 unit SQ [facility] Last Admin: 01/03/21 21:03 Dose: 60 unit Documented by: Melatonin (Melatonin 3 Mg Tablet) 6 mg PO HS PRN PRN Reason: Insomnia Last Admin: 01/03/21 21:00 Dose: 6 mg Documented by: Naloxone HCl (Naloxone 0.4 Mg/Ml 1 Ml Vial) 0.2 mg IV Q2M PRN PRN Reason: Opioid Reversal Nitroglycerin (Nitroglycerin Sl Tabs 0.4 Mg Tab) 0.4 mg SUBLINGUAL Q5M PRN PRN Reason: Chest Pain Ondansetron HCl (Ondansetron 4 Mg/2 Ml Vial) 4 mg IVP Q6HR PRN PRN Reason: Nausea And Vomiting Last Admin: 01/03/21 10:55 Dose: 4 mg Documented by: Pantoprazole Sodium (Pantoprazole 40 Mg Tablet) 40 mg PO DAILY PRN PRN Reason: gerd Last Admin: 12/31/20 09:39 Dose: 40 mg Documented by: Polyethylene Glycol (Polyethylene Glycol 3350 17 Gm Powd.Pack) 17 gm PO HS MAGALY Senna/Docusate Sodium (Sennosides-Docusate Sodium 1 Each Tab) 1 each PO BID MAGALY Physical exam: GENERAL: The patient is alert and oriented x3. Well developed, well nourished. Temp is 97.9F, pulse is 76, respirations are 16, blood pressure 98/62, oxygen saturation is 95% on room air. HEENT: Pupils are round and equally reacting to light. EOMI. No scleral icterus. No conjunctival pallor. Normocephalic, atraumatic. No pharyngeal erythema. No thyromegaly. CARDIOVASCULAR: S1 and S2 present. No murmurs, rubs, or gallops. PULMONARY: Chest is clear to auscultation, no wheezing or crackles. ABDOMEN: Soft, nontender, nondistended, normoactive bowel sounds. No palpable organomegaly. MUSCULOSKELETAL: No joint swelling or deformity. EXTREMITIES: No cyanosis, clubbing, or pedal edema. Right lower extremity with right foot dressing is dry and intact NEUROLOGICAL: Gross neurological examination did not reveal any focal deficits. SKIN: No rashes. No petechiae status post 4th right digit of the foot amputation with 5th toe site callus excision and dressings intact Assessment: Right fourth toe ischemia with gangrene. Status post amputation Acute blood loss anemia secondary to right foot post-op bleeding occluded right superficial femoral artery and distal right superficial femoral artery stent status post angiogram of the right lower extremity with stenting of the SFA Peripheral vascular disease, status post stent to the left iliac artery Possible cellulitis of right lower extremity Diabetes mellitus, uncontrolled with hyperglycemia, present on admission Hypertension Hyperlipidemia History of GERD History of stroke with right hemiparesis History of coronary artery disease status post stent 3 History of Hiatal hernia History of Chronic back pain, status post spinal effusion and spinal stimulator History of degenerative neuritis/duodenal ulcer History of celiac disease Diabetic neuropathy GI prophylaxis DVT prophylaxis Full code Plan: Recommend to continue with current medication, management, and symptomatic treatment. Vascular surgery Dr. Padilla and infectious disease along with cardiology following and awaiting for finalized cultures of the most recent fourth toe amputation with deep tissue culture being sent and preliminary showing no growth to date and awaiting for finalized to determine discharge antibiotics. Will discuss further with infectious disease once finalized cultures are available. Anticoagulants resumed and will continue to monitor closely. Recommend to continue with sliding scale, pre-meal, and long acting and continue with Accu-Cheks before meals and at bedtime. Further recommendations to follow based on the clinical course of the patient. Prognosis is guarded. Possible discharge in 24-48 hours. Objective - Vital Signs Vital signs: Vital Signs Temp 97.9 F 01/04/21 08:00 Pulse 76 01/04/21 08:00 Resp 16 01/04/21 08:00 BP 98/62 01/04/21 08:00 Pulse Ox 95 01/04/21 08:00 Intake & Output 01/03/21 01/04/21 01/04/21 18:59 06:59 18:59 Intake Total 1440 222 Output Total 225 1750 Balance 1215 -1528 Weight 74 kg Intake: IV 700 Ampicillin-Sulbactam 3 gm 100 In Sodium Chloride 0.9% 100 ml @ 200 mls/hr IVPB Q6H MAGALY Rx#:[id number] Sodium Chloride 0.9% 1, 600 000 ml @ 75 mls/hr IV . [id number] MAGALY Rx#:[id number] Oral 740 222 Output: Urine 225 1750 Other: Voiding Method Toilet ABP, PAP, CO, CI - Last Documented Arterial Blood Pressure 130/66 - Labs CBC & Chem 7: 01/04/21 07:38 01/04/21 07:38 Labs: Abnormal Lab Results - Last 24 Hours (Table) 01/03/21 01/03/21 01/03/21 Range/Units 11:58 16:43 20:20 RBC (3.80-5.40) m/uL Hgb (11.4-16.0) gm/dL Hct (34.0-46.0) % POC Glucose (mg/dL) 207 H 201 H 132 H (75-99) mg/dL 01/04/21 01/04/21 Range/Units 06:05 07:38 RBC 3.61 L (3.80-5.40) m/uL Hgb 10.9 L (11.4-16.0) gm/dL Hct 31.9 L (34.0-46.0) % POC Glucose (mg/dL) 217 H (75-99) mg/dL Microbiology - Last 24 Hours (Table) 01/02/21 08:36 Gram Stain - Preliminary Foot - Right Tissue Culture - Preliminary
[2021-01-04 16:46] LABS: Glucose,Whole Blood 164 mg/dL (75-99)
--- NOTE | 2021-01-04 17:36 | PN ---
PROGRESS NOTE 60-year-old diabetic female patient had ischemic changes to the right foot second toe with callus formation on the lateral aspect of the foot. We did ray amputation and excision of the callus. Patient has been treated with local wound care. We have been using Aquacel silver which will be continued. Most likely patient will go home after seeing tomorrow. We will follow in the wound clinic. MMREMBERTOL / IJN: [id number] /
[2021-01-04] MEDS: SENNOSIDES-DOCUSATE SODIUM 1 EACH TAB PO SCH ×2 (18:51→21:22)
[2021-01-04] MEDS: ALPRAZolam 0.25 MG TAB PO PRN (18:54)
[2021-01-04 20:03] LABS: Glucose,Whole Blood 199 mg/dL (75-99)
[2021-01-04] MEDS: INSULIN DETEMIR (LEVEMIR) 100 UNIT/ML SYR SQ SCH (21:21)
[2021-01-04] MEDS: DULoxetine HCL 60 MG CAPSULE.DR PO SCH (21:22)
[2021-01-04] MEDS: polyethylene glycoL 3350 17 GM POWD.PACK PO SCH (21:23)
[2021-01-04] MEDS: ATORVASTATIN 80 MG TAB PO SCH (21:23)
[2021-01-04] MEDS: GABAPENTIN 300 MG CAP PO SCH (21:23)
--- NOTE | 2021-01-04 22:03 | PN ---
PROGRESS NOTE DATE OF SERVICE: 01/04/2021 REASON FOR FOLLOWUP: Right fourth toe gangrene and question of infected callous. INTERVAL HISTORY: Patient is afebrile. She is breathing comfortably. No chest pain, shortness of breath or cough. No abdominal pain or any worsening pain to the right foot area. PHYSICAL EXAMINATION: Blood pressure 126/75, pulse of 68, temperature 97.5. She is 97% on room air. General description is a middle-aged female lying in bed in no distress. Respiratory system: Unlabored breathing, clear to auscultation anteriorly. Heart S1, S2. Regular rate and rhythm. Abdomen: Soft no tenderness. Right foot is currently dressed. No obvious drainage on the dressing. LABS: Hemoglobin is 10.8, white count 5.8, creatinine 0.39. DIAGNOSTIC IMPRESSION AND PLAN: Patient with a right fourth toe gangrene from the PAD, status post amputation with callus, status post debridement. Those cultures are pending. Patient is covered with Unasyn. Discharge antibiotic based on the culture report. Continue supportive care. MMODL / IJN: [id number] /
[2021-01-04] MEDS: MELATONIN 3 MG TABLET PO PRN (22:29)
[2021-01-05] MEDS: HYDROmorphone 0.5 MG/0.5 ML SYRINGE IVP PRN ×3 (01:17→18:25)
[2021-01-05] MEDS: ALPRAZolam 0.25 MG TAB PO PRN ×3 (01:17→18:25)
[2021-01-05] MEDS: PANTOPRAZOLE 40 MG TABLET PO PRN (01:21)
[2021-01-05] MEDS: HYDROcodone/APAP 5-325MG 1 EACH TAB PO PRN ×3 (04:23→21:11)
[2021-01-05] MEDS: AMPICILLIN-SULBACTAM 3 GM in SODIUM CHLORIDE 0.9% 100 ML IVPB SCH ×4 (05:23→21:12)
[2021-01-05 06:02] LABS: Glucose,Whole Blood 149 mg/dL (75-99)
[2021-01-05] MEDS: INSULIN ASPART (NovoLOG) 100 UNIT/ML VIAL SQ SCH ×7 (06:32→21:11)
[2021-01-05] MEDS: FENOFIBRATE 160 MG TAB PO SCH (11:20)
[2021-01-05] MEDS: CLOPIDOGREL 75 MG TAB PO SCH (11:20)
[2021-01-05] MEDS: ASPIRIN 81 MG PO SCH (11:20)
[2021-01-05] MEDS: APIXABAN 2.5 MG TABLET PO SCH ×2 (11:20→21:11)
[2021-01-05] MEDS: SENNOSIDES-DOCUSATE SODIUM 1 EACH TAB PO SCH ×3 (11:21→21:11)
[2021-01-05 11:51] LABS: Glucose,Whole Blood 128 mg/dL (75-99)
--- NOTE | 2021-01-05 15:48 | PN ---
PROGRESS NOTE DATE OF SERVICE: 01/05/2021 REASON FOR FOLLOWUP: Right fourth toe gangrene, question of infected callus. INTERVAL HISTORY: Patient is afebrile. The patient is breathing comfortably. No chest pain, shortness of breath or cough. No abdominal pain or any worsening pain to the right foot area. PHYSICAL EXAMINATION: Blood pressure 104/67, pulse of 73, temperature 98.2. She is 93% on room air. General description is a middle-aged female lying in bed in no distress. Respiratory system: Unlabored breathing, clear to auscultation anteriorly. Heart S1, S2. Regular rate and rhythm. Abdomen soft, no tenderness. The right foot is currently dressed. No obvious drainage on the dressing. LABS: No new labs have been obtained today. Culture remains to be negative. DIAGNOSTIC IMPRESSION AND PLAN: Patient with right fourth toe gangrene in this patient who is status post right fourth toe amputation. There was concern for possible infected callus which has been debrided. However the cultures have been negative. We will consider short course of oral Augmentin on discharge. Plan of care was discussed with the nurse practitioner working on discharge. MMODL / IJN: [id number] /
--- NOTE | 2021-01-05 16:01 | P.PN ---
Subjective Progress Note Date: 01/05/21 This is a pleasant 70 years old female with past medical history of CVA/TIA, Di abetes Mellitus, GERD, Hyperlipidemia, Hypertension, s/p Right 5th toe am putation with stent to left iliac artery., neuropathy bilateral feet, pancreatitis X2, CVA with right sided weakness, celiac disease, chronic low back pain, duodenitis/duodenal ulcer, hiatal hernia,Back Surgery, Cholecystectomy, Heart Catheterization With Stent x3, , Status post lumbar fusion, spinal cord stimulator, She underwent successful balloon angioplasty of the right femoral artery by Dr. Cruz on 08/11/2020 Also she has history of fifth toe amputation by Dr. Padilla vascular surgery Vitals are stable Labs including CBC, INR, BMP and liver enzymes are unremarkable. Coronavirus nondetected Glucose elevated 303 EKG showing normal sinus rhythm at [address]-T changes lower extremity CTA : Patent right common and external renal iliac stents with mild diffuse narrowing, no significant flow stenosis on the left. Occluded right superficial femoral artery and right femoral artery stent. also was started on normal saline at 75 mL/h and consulted cardiology team. Also patient was started on heparin drip Emergency room he was started on heparin drip and pain management 12/27/2020 Patient is seen and evaluated and follow-up this morning continues to be on IV heparin with cardiology following and plan is for surgical intervention for the occluded right superficial femoral artery at the placement of the stent. Patient states her pain is controlled and she feels well today. Patient is nothing by mouth for the procedure and will be going to the ICU under close monitoring status post intervention. Will await surgical report. 12/28/2020 Patient is seen in follow up this morning and is being closely monitored in the IU. Patient is status post angiogram with TPA administration with Dr. Lock. Patient is scheduled to undergo further evaluation of the right artery and thrombus. Patient states that she is having tenderness and more pain to the right lower extremity. Patient also states that she did not have a very good night of sleep and feels exhausted. Will add melatonin. Patient continued on IV heparin with plans of switching over to eliquis. Case management following and patient states she has no prescription coverage. Patient has been buying her insulin at [facility] and is 70/30 and uses sliding scale. Will continue accuchecks with meals and at bedtime and continue current sliding scale and long acting and discuss further about medications on discharge. 12/29/2020 Patient is seen and evaluated in the ICU this morning and awaiting transfer to [address] [place] [id number]. Cardiology following closely and infectious disease as well for possible cellulitis of the right lower extremity. Patient on eliquis and continued on aspirin and effient. Patient blood sugars continue to be elevated and will continue with sliding scale, pre meal and long acting while hospitalized. Discussed with case management about discharge medications given patient has no medication coverage. Patient was up today and will have PT evaluate the patient. 12/30/2020 Patient is seen in follow-up this morning stating she is having increased sensation and pain and feels the right lower extremity and foot is more red and painful. Patient maintained on eliquis, aspirin, and Effient and there is some minimal bleeding noted of her previous ulcer at the amputation site of the fifth digit. Patient states she scuffled and had a slight fall in the bathroom last night and unsure if she hit that area. Patient denied hitting her head and states she fell slightly to her knees. She is weak and will have PT/OT evaluate the patient. Cardiology following as well and being transitioned to Plavix and will discontinue Effient. Patient has no insurance coverage case management working with the patient. Blood sugars continue to be elevated and uncontrolled and maintained on sliding scale, pre-meal, long acting and most recent hemoglobin A1c is 10.8. She is also continued on IV antibiotics with infectious disease following closely. We'll discuss about antibiotics on discharge. 12/31/2020 Patient is seen and evaluated this morning and continues with right foot and toe pain of the 4th digit. discoloration continues and will consult vascular surgery for possible amputation of the toe. Patient was maintained on eliquis, plavix, and aspirin and will need to hold eliquis for procedure that is being planned for Sunday with Dr. Padilla. Patient to continue with IV zosyn and ID following closely. 01/01/2021 Patient is seen in follow up today and is being scheduled for right 4th toe amputation tomorrow with Dr. Padilla. Eliquis on hold. Patient continues on IV antibiotics in the form of Zosyn and infectious disease following. Deep tissue cultures to be obtained and monitored. Repeat labs of CBC and BMP within normal limits. Blood sugars continue to be elevated but controlled on current medication regimen and will continue accuchecks and closely monitor. Patient tolerating diet with no reported nausea or vomiting and will be NPO at midnight for the surgery. 01/02/2021 Patient is seen and evaluated in follow up today status post right 4th toe amputation with Dr. Padilla at the metatarsal phalangeal joint. Patient also had excision of the lateral callus with deep tissues obtained and will await finalized cultures. Patient to continue on IV zosyn with ID following closely. Per nursing staff patient had some steady post-op bleeding noted and will hold aspirin and plavix. Eliquis remains on hold. Dr. Padilla in at the bedside for some mild cautery at the site and surgical dressing was changed and reinforced. Will discuss further with Dr. Padilla about resuming anticoagulant and antiplatelet therapy. Will order stat cbc and repeat am labs. 01/04/2021 Patient is seen and evaluated in follow-up and Dr. Padilla has evaluated the patient and dressing change status post right fourth toe amputation for ischemic gangrene and possible concerns for cellulitis of the right foot. Infectious disease also following and patient is maintained on IV Zosyn and will continue while awaiting for deep tissue cultures to finalize to determine discharge antibiotics. Preliminary showing no growth to date and will discuss further with infectious disease about discharge planning. She having some mild abdominal discomfort and states she has not had a bowel movement and will order bowel regimen. 01/05/2021 She is seen in follow-up today and continues with some right foot discomfort and was having some bleeding noted on the surgical dressing. Will have PT/OT evaluate the patient and discussed with vascular surgery about any weightbearing restrictions of that right lower extremity. Patient is continued on Plavix, eliquis, and aspirin and will continue. Will repeat CBC to monitor hemoglobin. She currently denies any chest pain, shortness of breath, or palpitations. Patient is afebrile and tolerating diet. Recommend continue with consistent carb diet. Continue with Accu-Cheks before meals and at bedtime and continue current medication regimen. Wound cultures showing no growth and discussed with microbiology from [facility] and continued no growth at the 72 hour ryan. Infectious disease following closely and will be continued on IV antibiotics during hospitalization and transitioned oral Augmentin on discharge. 0............................................................................... ............... ................................................................................ .................... ................................................................................ .................... ................................................................................ .................... ................................................................................ .................... ................................................................................ .................... ................................................................................ .................... ................................................................................ .................... ................................................................................ .................... ................................................................................ .................... ................................................................................ .................... ................................................................................ .................... ................................................................................ .................... ................................................................................ .................... ................................................................................ .................... ................................................................................ .................... ................................................................................ .................... ................................................................................ .................... ................................................................................ .................... ................................................................................ .................... ................................................................................ .................... ................................................................................ .................... ................................................................................ .................... ................................................................................ .................... ................................................................................ .................... ................................................................................ .................... ................................................................................ .................... ................................................................................ .................... ................................................................................ .................... ................................................................................ .................... ................................................................................ .................... ................................................................................ .................... ................................................................................ .................... ................................................................................ .................... ................................................................................ .................... ................................................................................ .................... ................................................................................ .................... ................................................................................ .................... ................................................................................ .................... ................................................................................ .................... ................................................................................ .................... ................................................................................ .................... ................................................................................ .................... ................................................................................ .................... ................................................................................ .................... ................................................................................ .................... ................................................................................ .................... ................................................................................ .................... ................................................................................ .................... ................................................................................ .................... ................................................................................ .................... ................................................................................ .................... ................................................................................ .................... ................................................................................ .................... ................................................................................ .................... ................................................................................ .................... ................................................................................ .................... ................................................................................ .................... ................................................................................ .................... ................................................................................ .................... ................................................................................ .................... ................................................................................ .................... ................................................................................ .................... ................................................................................ .................... ................................................................................ .................... ................................................................................ .................... ................................................................................ .................... ................................................................................ .................... ................................................................................ .................... ................................................................................ .................... ................................................................................ .................... ................................................................................ .................... ................................................................................ .................... ................................................................................ .................... ................................................................................ .................... ................................................................................ .................... ................................................................................ .................... ................................................................................ .................... ................................................................................ .................... ................................................................................ .................... ................................................................................ .................... ................................................................................ .................... ................................................................................ .................... ................................................................................ .................... ................................................................................ .................... ................................................................................ .................... ................................................................................ .................... ................................................................................ .................... ................................................................................ .................... ................................................................................ .................... ................................................................................ .................... ................................................................................ .................... ................................................................................ .................... ................................................................................ .................... ................................................................................ .................... ................................................................................ .................... ................................................................................ .................... ................................................................................ .................... ................................................................................ .................... ................................................................................ .................... ................................................................................ .................... ................................................................................ .................... ................................................................................ .................... ................................................................................ .................... ................................................................................ .................... ................................................................................ .................... ................................................................................ .................... ................................................................................ .................... ................................................................................ .................... ................................................................................ .................... ................................................................................ .................... ................................................................................ .................... ................................................................................ .................... ................................................................................ .................... ................................................................................ .................... ................................................................................ .................... ................................................................................ .................... ................................................................................ .................... ................................................................................ .................... ................................................................................ .................... ................................................................................ .................... ................................................................................ .................... ................................................................................ .................... ................................................................................ .................... ................................................................................ .................... ................................................................................ .................... ................................................................................ .................... ................................................................................ .................... ................................................................................ .................... ................................................................................ .................... ................................................................................ .................... ................................................................................ .................... ................................................................................ .................... ................................................................................ .................... ................................................................................ .................... ................................................................................ .................... ................................................................................ .................... ................................................................................ .................... ................................................................................ .................... ................................................................................ .................... ................................................................................ .................... ................................................................................ .................... ................................................................................ .................... ................................................................................ .................... ................................................................................ .................... ................................................................................ .................... ................................................................................ .................... ................................................................................ .................... ................................................................................ .......................................Review Review of systems: Constitutional: no reports of fatigue, no reports of fever, or chills Cardiovascular: No reports of chest pain or palpitations Respiratory: No reports of shortness of breath or cough GI: No reports of nausea, vomiting, or diarrhea : No reports of dysuria or retention Neurovascular: Reports generalized weakness and continued right lower extremity discomfort All medications have been reviewed Active Medications Hydrocodone Bitart/Acetaminophen (Hydrocodone/Apap 5-325mg 1 Each Tab) 1 each PO Q8HR PRN PRN Reason: Moderate Pain Last Admin: 01/05/21 13:14 Dose: 1 each Documented by: Alprazolam (Alprazolam 0.25 Mg Tab) 0.25 mg PO TID PRN PRN Reason: Anxiety Last Admin: 01/05/21 11:56 Dose: 0.25 mg Documented by: Apixaban (Apixaban 2.5 Mg Tablet) 2.5 mg PO BID [facility]; Protocol Last Admin: 01/05/21 11:20 Dose: 2.5 mg Documented by: Aspirin (Aspirin 81 Mg) 81 mg PO DAILY [facility] Last Admin: 01/05/21 11:20 Dose: 81 mg Documented by: Atorvastatin Calcium (Atorvastatin 80 Mg Tab) 80 mg PO HS [facility] Last Admin: 01/04/21 21:23 Dose: 80 mg Documented by: Clopidogrel Bisulfate (Clopidogrel 75 Mg Tab) 75 mg PO DAILY [facility] Last Admin: 01/05/21 11:20 Dose: 75 mg Documented by: Duloxetine HCl (Duloxetine Hcl 60 Mg Capsule.Dr) 60 mg PO HS [facility] Last Admin: 01/04/21 21:22 Dose: 60 mg Documented by: Fenofibrate (Fenofibrate 160 Mg Tab) 160 mg PO DAILY [facility] Last Admin: 01/05/21 11:20 Dose: 160 mg Documented by: Gabapentin (Gabapentin 300 Mg Cap) 900 mg PO HS [facility] Last Admin: 01/04/21 21:23 Dose: 900 mg Documented by: Hydromorphone HCl (Hydromorphone 0.5 Mg/0.5 Ml Syringe) 0.5 mg IVP Q3HR PRN PRN Reason: Moderate Pain Last Admin: 01/05/21 11:57 Dose: 0.5 mg Documented by: Ampicillin Sodium/Sulbactam (Sodium 3 gm/ Sodium Chloride) 100 mls @ 200 mls/hr IVPB Q6H [facility] Last Admin: 01/05/21 11:20 Dose: 200 mls/hr Documented by: Insulin Aspart (Insulin Aspart (Novolog) 100 Unit/Ml Vial) 15 unit SQ AC-TID [facility] Last Admin: 01/05/21 13:14 Dose: 15 unit Documented by: Insulin Aspart (Insulin Aspart (Novolog) 100 Unit/Ml Vial) 0 unit SQ ACHS [facility]; Protocol Last Admin: 01/05/21 11:56 Dose: Not Given Documented by: Insulin Detemir (Insulin Detemir (Levemir) 100 Unit/Ml Syr) 60 unit SQ HS [facility] Last Admin: 01/04/21 21:21 Dose: 60 unit Documented by: Melatonin (Melatonin 3 Mg Tablet) 6 mg PO HS PRN PRN Reason: Insomnia Last Admin: 01/04/21 22:29 Dose: 6 mg Documented by: Naloxone HCl (Naloxone 0.4 Mg/Ml 1 Ml Vial) 0.2 mg IV Q2M PRN PRN Reason: Opioid Reversal Nitroglycerin (Nitroglycerin Sl Tabs 0.4 Mg Tab) 0.4 mg SUBLINGUAL Q5M PRN PRN Reason: Chest Pain Ondansetron HCl (Ondansetron 4 Mg/2 Ml Vial) 4 mg IVP Q6HR PRN PRN Reason: Nausea And Vomiting Last Admin: 01/03/21 10:55 Dose: 4 mg Documented by: Pantoprazole Sodium (Pantoprazole 40 Mg Tablet) 40 mg PO DAILY PRN PRN Reason: gerd Last Admin: 01/05/21 01:21 Dose: 40 mg Documented by: Polyethylene Glycol (Polyethylene Glycol 3350 17 Gm Powd.Pack) 17 gm PO HS [facility] Last Admin: 01/04/21 21:23 Dose: Not Given Documented by: Senna/Docusate Sodium (Sennosides-Docusate Sodium 1 Each Tab) 1 each PO BID [facility] Last Admin: 01/05/21 11:21 Dose: 1 each Documented by: Physical exam: GENERAL: The patient is alert and oriented x3. Well developed, well nourished. Temp is 98.2 F, pulse is 66, respirations are 16, blood pressure 104/67, oxygen saturation is 93% on room air. HEENT: Pupils are round and equally reacting to light. EOMI. No scleral icterus. No conjunctival pallor. Normocephalic, atraumatic. No pharyngeal erythema. No thyromegaly. CARDIOVASCULAR: S1 and S2 present. No murmurs, rubs, or gallops. PULMONARY: Chest is clear to auscultation, no wheezing or crackles. ABDOMEN: Soft, nontender, nondistended, normoactive bowel sounds. No palpable organomegaly. MUSCULOSKELETAL: No joint swelling or deformity. EXTREMITIES: No cyanosis, clubbing, or pedal edema. Right lower extremity with right foot dressing with fresh bright red blood noted NEUROLOGICAL: Gross neurological examination did not reveal any focal deficits. SKIN: No rashes. No petechiae, status post 4th right digit of the foot amputation with 5th toe site callus excision and dressings to be changed Assessment: Right fourth toe ischemia with gangrene. Status post amputation Acute blood loss anemia secondary to right foot post-op bleeding occluded right superficial femoral artery and distal right superficial femoral artery stent status post angiogram of the right lower extremity with stenting of the SFA Peripheral vascular disease, status post stent to the left iliac artery Possible cellulitis of right lower extremity Diabetes mellitus, uncontrolled with hyperglycemia, present on admission Hypertension Hyperlipidemia History of GERD History of stroke with right hemiparesis History of coronary artery disease status post stent 3 History of Hiatal hernia History of Chronic back pain, status post spinal effusion and spinal stimulator History of degenerative neuritis/duodenal ulcer History of celiac disease Diabetic neuropathy GI prophylaxis DVT prophylaxis Full code Plan: Recommend to continue with current medication, management, and symptomatic treatment. Vascular surgery Dr. Padilla and infectious disease along with cardiology following cultures continue to show no growth of the most recent fourth toe amputation with deep tissue culture. Patient will continue on IV antibiotics for now and transition to oral Augmentin on discharge per the rec ommendations of infectious disease and close outpatient monitoring at the wound center. Anticoagulants resumed and will continue to monitor closely. Recommend to continue with sliding scale, pre-meal, and long acting and continue with Accu-Cheks before meals and at bedtime. Further recommendations to follow based on the clinical course of the patient. Prognosis is guarded. Possible discharge in 24 hours. Objective - Vital Signs Vital signs: Vital Signs Temp 98.2 F 01/05/21 04:00 Pulse 66 01/05/21 04:00 Resp 16 01/05/21 04:00 BP 104/67 01/05/21 04:00 Pulse Ox 93 L 01/05/21 04:00 Intake & Output 01/04/21 01/05/21 01/05/21 18:59 06:59 18:59 Intake Total 1240 510 Output Total 1500 1404 Balance -260 -894 Weight 72.5 kg Intake: IV 200 10 Ampicillin-Sulbactam 3 gm 200 In Sodium Chloride 0.9% 100 ml @ 200 mls/hr IVPB Q6H [facility] Rx#:[id number] Invasive Line 6 10 Oral 1040 500 Output: Urine 1500 1400 Stool 4 Other: Voiding Method External Catheter ABP, PAP, CO, CI - Last Documented Arterial Blood Pressure 130/66 - Labs CBC & Chem 7: 01/04/21 07:38 01/04/21 07:38 Labs: Abnormal Lab Results - Last 24 Hours (Table) 01/04/21 01/04/21 01/04/21 Range/Units 07:38 07:38 11:53 RBC 3.61 L (3.80-5.40) m/uL Hgb 10.9 L (11.4-16.0) gm/dL Hct 31.9 L (34.0-46.0) % BUN 5 L (7-17) mg/dL Creatinine 0.39 L (0.52-1.04) mg/dL Glucose 165 H (74-99) mg/dL POC Glucose (mg/dL) 168 H (75-99) mg/dL 01/04/21 01/04/21 01/05/21 Range/Units 16:42 20:02 05:57 RBC (3.80-5.40) m/uL Hgb (11.4-16.0) gm/dL Hct (34.0-46.0) % BUN (7-17) mg/dL Creatinine (0.52-1.04) mg/dL Glucose (74-99) mg/dL POC Glucose (mg/dL) 164 H 199 H 149 H (75-99) mg/dL Microbiology - Last 24 Hours (Table) 01/02/21 08:36 Anaerobic Culture - Preliminary Foot - Right 01/02/21 08:36 Gram Stain - Preliminary Foot - Right Tissue Culture - Preliminary
[2021-01-05 16:58] LABS: Glucose,Whole Blood 247 mg/dL (75-99)
[2021-01-05 19:58] LABS: Glucose,Whole Blood 161 mg/dL (75-99)
[2021-01-05] MEDS: MELATONIN 3 MG TABLET PO PRN (21:10)
[2021-01-05] MEDS: DULoxetine HCL 60 MG CAPSULE.DR PO SCH (21:10)
[2021-01-05] MEDS: polyethylene glycoL 3350 17 GM POWD.PACK PO SCH (21:10)
[2021-01-05] MEDS: INSULIN DETEMIR (LEVEMIR) 100 UNIT/ML SYR SQ SCH (21:11)
[2021-01-05] MEDS: ATORVASTATIN 80 MG TAB PO SCH (21:11)
[2021-01-05] MEDS: GABAPENTIN 300 MG CAP PO SCH (21:11)
[2021-01-06] MEDS: HYDROmorphone 0.5 MG/0.5 ML SYRINGE IVP PRN ×2 (00:14→04:34)
[2021-01-06 00:26] VITALS: RESP 16
[2021-01-06] MEDS: AMPICILLIN-SULBACTAM 3 GM in SODIUM CHLORIDE 0.9% 100 ML IVPB SCH ×2 (04:40→10:02)
[2021-01-06 05:58] LABS: Glucose,Whole Blood 190 mg/dL (75-99)
[2021-01-06] MEDS: INSULIN ASPART (NovoLOG) 100 UNIT/ML VIAL SQ SCH ×4 (06:18→12:00)
[2021-01-06 08:44] VITALS: BP 102/65; PULSE 70; TEMP 97.6
[2021-01-06] MEDS: SENNOSIDES-DOCUSATE SODIUM 1 EACH TAB PO SCH (10:01)
[2021-01-06] MEDS: ASPIRIN 81 MG PO SCH (10:01)
[2021-01-06] MEDS: CLOPIDOGREL 75 MG TAB PO SCH (10:01)
[2021-01-06] MEDS: APIXABAN 2.5 MG TABLET PO SCH (10:01)
[2021-01-06] MEDS: FENOFIBRATE 160 MG TAB PO SCH (10:02)
--- NOTE | 2021-01-06 10:30 | PN ---
PROGRESS NOTE This is a 60-year-old diabetic female who came with fourth toe gangrene and callus formation on the lateral aspect of the foot. The patient had amputation of the fourth toe and excision of the callus. Patient is on IV antibiotic under the care of Infectious Disease. We have kept the incision open. Today we have changed the dressing. Base of the wound is granulating. Will continue with Aquacel Silver. Patient will be seen in the wound clinic on Sunday. MMODL / IJN: [id number] /
[2021-01-06 11:37] LABS: Glucose,Whole Blood 432 mg/dL (75-99)
[2021-01-06 12:55] LABS: Glucose,Whole Blood 246 mg/dL (75-99)
--- NOTE | 2021-01-06 16:15 | PN ---
PROGRESS NOTE DATE OF SERVICE: 01/06/2021 REASON FOR FOLLOWUP: Right fourth toe gangrene and possible infected callus. INTERVAL HISTORY: The patient is afebrile. The patient is currently breathing comfortably. No chest pain, shortness of breath or cough. No abdominal pain or any worsening pain to the right foot area. PHYSICAL EXAMINATION: Her blood pressure is 102/65, pulse of 70, temperature 97.6. She is 95% on room air. General description is a middle-aged female lying in bed in no distress. Respiratory system: Unlabored breathing, clear to auscultation anteriorly. Heart S1, S2. Regular rate and rhythm. Abdomen soft, no tenderness. Right foot is currently dressed. No obvious drainage on the dressing. LAB: Cultures remain negative. DIAGNOSTIC IMPRESSION AND PLAN: Patient with right fourth toe gangrene, status post amputation and angioplasty of the right leg with concern for possible infected callus, status post debridement. Culture negative. May consider a short course of oral Augmentin on discharge and close outpatient followup. MMODL / IJN: [id number] /
--- NOTE | 2021-01-07 09:12 | P.DS ---
Providers Date of admission: 12/26/20 07:07 Expected date of discharge: 01/06/21 Attending physician: Te Diaz Consults: 12/26/20 07:22 Consult Physician Urgent Consulting Provider: Pankaj Guzman Consult Reason/Comments: PAD. Right fourth toe ischemia Do you want consulting provider notified?: Already Contacted 12/26/20 13:21 Consult Physician Urgent Consulting Provider: Jeanie Patricio Consult Reason/Comments: foot cellultis Do you want consulting provider notified?: Yes 12/31/20 10:49 Consult Physician Routine Consulting Provider: Warren Padilla Consult Reason/Comments: Possible right 4th toe amputation; known to patient Do you want consulting provider notified?: Yes Primary care physician: Fabiola Land Hospital Course: Final Diagnosis Right fourth toe ischemia with gangrene. Status post amputation Acute blood loss anemia secondary to right foot post-op bleeding occluded right superficial femoral artery and distal right superficial femoral artery stent status post angiogram of the right lower extremity with stenting of the SFA Peripheral vascular disease, status post stent to the left iliac artery Possible cellulitis of right lower extremity Diabetes mellitus, uncontrolled with hyperglycemia, present on admission Hypertension Hyperlipidemia History of GERD History of stroke with right hemiparesis History of coronary artery disease status post stent 3 History of Hiatal hernia History of Chronic back pain, status post spinal effusion and spinal stimulator History of degenerative neuritis/duodenal ulcer History of celiac disease Diabetic neuropathy GI prophylaxis DVT prophylaxis Full code Discharge disposition Patient is being discharged in a stable condition with guarded prognosis to . Patient will follow-up with Dr. Land in the outpatient setting upon discharge. Patient is to continue with oral antibiotics in the form of Augmentin twice daily for the next one week with close outpatient follow-up at the wound center and also with Dr. Lock in the outpatient setting. Total time taken is greater than 35 minutes. Hospital Course This is a 60-year-old female who was recently admitted for right leg and foot pain was being closely monitored. Patient underwent stent placement for right superficial femoral artery occlusion and thrombus retrieval with Dr. Lock. Patient was also being closely monitored by infectious disease for the possibility of cellulitis of the right foot and patient was also consulted and followed by vascular surgery Dr. Padilla and ultimately underwent right fourth toe amputation secondary to gangrene. Patient will continue on oral Augmentin for the next one week with close outpatient follow-up at the wound care center and Dr. Lokc. Blood sugars have been uncontrolled and currently has no medication coverage and indigent funds being used for Semglee long acting insulin patient will use 40 units during the day and 30 units at night. Recommended and encouraged the patient to continue monitoring Accu-Cheks before meals and at bedtime and keep a diary for primary and endocrine follow-up. Continue with consistent carb heart healthy diet. Patient encouraged follow-up with endocrine along with pain management in the outpatient setting after close outpatient follow-up with primary care provider Dr. Land. Currently no reports of chest pain, shortness of breath, or palpitations. Patient is afebrile. No reports of nausea or vomiting and patient is tolerating diet. Patient will be discharged home today. Guarded prognosis. On exam vital signs are stable. Cardio S1, S2 are muffled. Respiratory system shows diminished breath sounds at the bases with no wheezing or rhonchi noted. Abdomen is soft and nontender. Nervous system shows no focal deficits Please refer to medication reconciliation sheet for a list of medications. Patient Condition at Discharge: Stable Plan - Discharge Summary New Discharge Prescriptions: New Amoxic-Pot Clav 875-125Mg [Augmentin 875-125] 1 tab PO Q12HR 7 Days #14 tab Apixaban [Eliquis] 2.5 mg PO BID 30 Days #60 tablet Gabapentin [Neurontin] 900 mg PO HS #9 cap HYDROcodone/APAP 5-325MG [[place] 5-325] 1 each PO Q8HR PRN #6 tab PRN Reason: Moderate Pain Clopidogrel [Plavix] 75 mg PO DAILY 30 Days #30 tab Insulin Glargine,Hum.rec.anlog [Semglee Pen] 70 units SQ DAILY 30 Days #4 each Continue DULoxetine HCL [Cymbalta] 60 mg PO HS Atorvastatin [Lipitor] 80 mg PO HS Nitroglycerin Sl Tabs [Nitrostat] 0.4 mg SUBLINGUAL Q5M PRN #50 tab PRN Reason: Chest Pain Aspirin 81 mg PO DAILY Fenofibrate [Lofibra] 160 mg PO DAILY Discontinued Prasugrel [Effient] 10 mg PO DAILY Metoprolol Tartrate [Lopressor] 25 mg PO DAILY Insulin Aspart Prot/Insuln Asp [Relion Novolog Mix 70-30 Vial] See Protocol SQ AC-TID Discharge Medication List Atorvastatin [Lipitor] 80 mg PO HS 06/26/16 [History] DULoxetine HCL [Cymbalta] 60 mg PO HS 06/26/16 [History] Nitroglycerin Sl Tabs [Nitrostat] 0.4 mg SUBLINGUAL Q5M PRN #50 tab 07/02/16 [Rx] Aspirin 81 mg PO DAILY 10/08/17 [History] Fenofibrate [Lofibra] 160 mg PO DAILY 12/26/20 [History] Amoxic-Pot Clav 875-125Mg [Augmentin 875-125] 1 tab PO Q12HR 7 Days #14 tab 01/05/21 [Rx] Apixaban [Eliquis] 2.5 mg PO BID 30 Days #60 tablet 01/05/21 [Rx] Clopidogrel [Plavix] 75 mg PO DAILY 30 Days #30 tab 01/05/21 [Rx] Gabapentin [Neurontin] 900 mg PO HS #9 cap 01/05/21 [Rx] HYDROcodone/APAP 5-325MG [[place] 5-325] 1 each PO Q8HR PRN #6 tab 01/05/21 [Rx] Insulin Glargine,Hum.rec.anlog [Semglee Pen] 70 units SQ DAILY 30 Days #4 each 01/05/21 [Rx] Follow up Appointment(s)/Referral(s): Vipul Lock MD [STAFF PHYSICIAN] - 1 Week (Office will call today withh follow up appt date and time.) [facility] [NON-STAFF] - 01/10/21 2:00 pm (Dr. Padilla) Fabiola Land MD [Primary Care Provider] - 01/11/21 8:40 am Patient Instructions/Handouts: How to Stop Smoking (ED), Wound Infection (ED), Cigarette Smoking and Your Health (GEN), Managing Diabetes During Sick Days (GEN), Diabetic Foot Ulcers (ED), Chronic Wounds (ED), Acute Wounds (ED), Peripheral Vascular Stent Placement (DC), Hypertension and Diabetes (ED), Diabetes and Nutrition (DC), Diabetes and Exercise (ED) Activity/Diet/Wound Care/Special Instructions: Activity Limited until follow-up Follow-up with primary care provider on discharge Follow-up with vascular surgery outpatient Follow-up cardiology outpatient Follow-up at the wound center Continue antibiotics for 7 days Continue with consistent carb diet and monitor blood sugars Continue with Semglee long acting insulin and patient is to take 40 units during the day and 30 units at bed Dressing change Q48HR Apply wet aquacel ag advantage to wound bed. Then apply wet to dry 4X4 gauze. Wrap with kerlex. Discharge Disposition: HOME SELF-CARE
== END 2021-01-06 14:07 | disposition home or self-care (01) | DRG 253 ==
LOC: EC 05:11 → 5NMEDONC 07:07 → 2SICU 12-27 12:58 → 3SCARD 12-29 12:52
PROVIDERS: ADMIT Internal Medicine; ATTEND Internal Medicine
PROC: B41F1ZZ Fluoroscopy of Right Lower Extremity Arteries using Low Osmolar Contrast (ICD-10-PCS; 2020-12-28)
PROC: B41G1ZZ Fluoroscopy of Left Lower Extremity Arteries using Low Osmolar Contrast (ICD-10-PCS; 2020-12-28)
PROC: 047K35Z Dilation of Right Femoral Artery with Two Drug-eluting Intraluminal Devices, Percutaneous Approach (ICD-10-PCS; principal; 2020-12-28 11:30)
PROC: 0JBQ0ZZ Excision of Right Foot Subcutaneous Tissue and Fascia, Open Approach (ICD-10-PCS; 2021-01-02)
PROC: 0Y6V0Z0 Detachment at Right 4th Toe, Complete, Open Approach (ICD-10-PCS; 2021-01-02 08:00)
DX: I70.261 Atherosclerosis of native arteries of extremities with gangrene, right leg (principal); D62 Acute posthemorrhagic anemia; I69.351 Hemiplegia and hemiparesis following cerebral infarction affecting right dominant side; L03.115 Cellulitis of right lower limb; E11.52 Type 2 diabetes mellitus with diabetic peripheral angiopathy with gangrene; E11.40 Type 2 diabetes mellitus with diabetic neuropathy, unspecified; E11.65 Type 2 diabetes mellitus with hyperglycemia; E78.5 Hyperlipidemia, unspecified; F17.200 Nicotine dependence, unspecified, uncomplicated; F41.9 Anxiety disorder, unspecified; G89.29 Other chronic pain; I10 Essential (primary) hypertension; I25.10 Atherosclerotic heart disease of native coronary artery without angina pectoris; Z87.11 Personal history of peptic ulcer disease; K44.9 Diaphragmatic hernia without obstruction or gangrene; K90.0 Celiac disease; M19.90 Unspecified osteoarthritis, unspecified site; Z20.822 Contact with and (suspected) exposure to COVID-19; Z79.01 Long term (current) use of anticoagulants; Z79.02 Long term (current) use of antithrombotics/antiplatelets; Z79.82 Long term (current) use of aspirin; Z79.899 Other long term (current) drug therapy; Z80.0 Family history of malignant neoplasm of digestive organs; Z82.49 Family history of ischemic heart disease and other diseases of the circulatory system; Z95.5 Presence of coronary angioplasty implant and graft; Z98.1 Arthrodesis status; K21.9 Gastro-esophageal reflux disease without esophagitis
CPT/HCPCS: 36415; 37211; 37214; 37226; 80048; 80053; 82565; 83036; 83605; 83735; 85025; 85384; 85610; 85730; 87070; 87075; 87205; 87635; 88305; 88311; 93005; 94760; 96374; 96375; 99291

== ENCOUNTER → 2021-12-10 | Outpatient (CLI) | payer MEDICARE ==
[2021-12-10 16:37] LABS: HCT 46.9 % (37.2-46.3); HGB 16.1 g/dL (12.0-15.0); MCH 29.7 pg (27.0-32.0); MCHC 34.3 g/dL (32.0-37.0); MCV 86.4 fL (80.0-97.0); Mean Platelet Volume 11.3 fL (9.5-12.2); NRBC Per 100 WBC 0 /100 WBCS (0.0-0.0); Platelet Count 212 X 10*3/uL (140-440); RBC 5.43 X 10*6/uL (4.10-5.20); RDW 13.6 % (11.5-14.5); WBC 7.31 X 10*3/uL (4.50-10.00)
[2021-12-10 16:40] LABS: Anion Gap 14.1 mmol/L (10.00-18.00); Blood Urea Nitrogen 8.7 mg/dL (9.0-27.0); Non-African American GFR(CKD) 104.4 (60.0-200.0); Potassium 4.1 mmol/L (3.5-5.5)
== END | disposition home or self-care (01) ==
LOC: LABPAT 11:17
PROVIDERS: ATTEND Internal Medicine Interventional Cardiology
DX: Z01.812 Encounter for preprocedural laboratory examination (principal); I70.213 Atherosclerosis of native arteries of extremities with intermittent claudication, bilateral legs
CPT/HCPCS: 80051; 82565; 84520; 85027

== ENCOUNTER 2021-12-14 10:45 | Day surgery (SDC) | payer MEDICARE ==
[2021-12-12 18:35] VITALS: BMI 22.0
[~2021-12-14 10:45] MED LIST changes: +ALPRAZolam 0.25 MG TAB PO PRN; +ALPRAZolam 0.5 MG TAB PO PRN; +ASPIRIN 325 MG TAB PO PRN; +HEPARIN SODIUM,PORCINE 10,000 UNIT in SODIUM CHLORIDE 0.9% 1,000 ML IRRIGATION PRN; +HEPARIN SODIUM,PORCINE 2,500 UNIT in SODIUM CHLORIDE 0.9% 250 ML IRRIGATION PRN; +ZOLPIDEM 5 MG TAB PO PRN
[2021-12-14 11:28] LABS: Glucose,Whole Blood 340 mg/dL (70-110)
[2021-12-14] MEDS ORDERED: INSULIN ASPART (NovoLOG) 100 UNIT/ML VIAL SQ ONE (11:54)
[2021-12-14] MEDS ORDERED: HEPARIN SODIUM 1,000 UN/ML (10ML VL) ONE (12:52)
[2021-12-14] MEDS ORDERED: MIDAZOLAM 2 MG/2 ML VIAL IVP ONE ×3 (13:09→14:08)
[2021-12-14] MEDS ORDERED: niCARdipine 25 MG/10 ML VIAL ONE (13:10)
[2021-12-14] MEDS ORDERED: LIDOCAINE 1% INJ 10MG/ML (30 ML VIAL-PF) SQ ONE (13:11)
[2021-12-14] MEDS: HEPARIN SODIUM 1,000 UN/ML (10ML VL) IVP ONE ×2 (13:15→13:50)
[2021-12-14] MEDS: NITROGLYCERIN 1000MCG/10ML SYRINGE INTRACORON ONE ×2 (13:45→14:00)
[2021-12-14] MEDS ORDERED: niCARdipine Syringe (1,000 mcg/10 mL) INTRAARTER ONE (13:45)
[2021-12-14] MEDS ORDERED: HEPARIN SODIUM 1,000 UN/ML (10ML VL) IVP ONE (14:07)
[2021-12-14] MEDS ORDERED: niCARdipine Syringe (1,000 mcg/10 mL) INTRACORON ONE (14:11)
[2021-12-14] MEDS ORDERED: MORPHINE SULFATE 4 MG/ML SYRINGE ONE (14:47)
[2021-12-14] MEDS ORDERED: CLOPIDOGREL 75 MG TAB ONE (14:49)
[2021-12-14] MEDS ORDERED: MORPHINE SULFATE 4 MG/ML SYRINGE IVP ONE (14:50)
[2021-12-14] MEDS ORDERED: CLOPIDOGREL 75 MG TAB PO ONE (14:50)
[2021-12-14] MEDS ORDERED: NITROGLYCERIN SL TABS 0.4 MG TAB SUBLINGUAL PRN (14:51)
[2021-12-14] MEDS ORDERED: NALOXONE 0.4 MG/ML 1 ML VIAL IVP PRN (14:52)
[2021-12-14] MEDS ORDERED: IOPAMIDOL-370 100ML BTL INJ ONE (14:53)
--- NOTE | 2021-12-14 14:58 | P.PCN ---
Date of Procedure: 12/14/21 Operative Findings: PERCUTANEOUS PERIPHERAL INTERVENTION Performing physician Vipul Lock M.D. Procedure performed #1 an atherectomy of the left SFA using the Hawk 1 device #2 successful balloon angioplasty of the left SFA using 5.0 x 60 mm drug-coated balloon #3 successful balloon angioplasty of the left peroneal artery #4 successful stenting of the left external iliac artery using 8.0 x 60 mm self- expandable stent #5 intravascular ultrasound of the left SFA and left common femoral and left external iliac artery #6 lower extremities angiogram #7 gradient measurement across the left external iliac artery #8 left lower extremity and jaw Indication This is a very pleasant 61-year-old female patient was known lower extremity peripheral arterial disease who was seen in the office recently for left lower leg intermittent claudication beach she underwent an arterial duplex study which showed critical left SFA. She was brought today for intervention Approach Right common femoral artery Complications None Level of sedation Moderate with a sedation time of 95 minutes Procedure description After obtaining an informed consent the patient was brought to the cardiac skilled labor. The right common femoral artery was cannulated using puncture technique under ultrasound guidance, the micropuncture wire passed easily then I placed 6- Cymraes 70 cm sheath in the right common femoral artery after I predilated using 5 and 6 and 7-Cymraes dilator. The wire went up and over to the left SFA. Subsequently I did advanced a sheath over an 035 stiff Glidewire the left common femoral artery. At that point anticoagulation was initiated using heparin with continuous ACT monitoring. Subsequently the left SFA was wired using 014 wire. I did intravascular ultrasound which showed a diameter about 6 mm. I did atherectomy of the left SFA using the Hawk 1 device with extraction of a plaque. Then I did balloon angioplasty using a drug-coated balloon and that was 5.0 x 60 mm balloon. The following angiogram showed an excellent angiographic results. The completion angiogram was performed after that and showed occluded left popliteal which was opened prior to the left lower oximetry angiogram before we intervened. I did wire the left peroneal using all 4 wire. Balloon angioplasty after that was performed using 2.5 mm balloon with an inadequate angiographic result for subsequent using 3 mm x 18 mm chocolate balloon and with that I was able to restore the flow to the left peroneal. The flow was sluggish. I suspect that the patient has an inflow lesion. I pulled the sheath back to the proximal left external iliac artery and I did an angiogram which showed a lesion involving the mid left external iliac artery appeared to be in the range of 60%. Creatinine measurement was performed and came in to be around 30 mmHg. I decided to fix this lesion. I did intravascular ultrasound which showed a diameter about 8 mm. I predilated using 7 mm balloon and subsequently I deployed a 8 x 60 mm self-expandable stent. I did postdilated dictation using 7 mm balloon. The final angiogram showed good angiographic results and the procedure was completed without any complications Postprocedure management #1 dual antiplatelet therapy #2 aggressive cholesterol control #3 risk factors modification #4 follow-up with the patient
[2021-12-14] MEDS ORDERED: IOPAMIDOL-250 100ML BTL INTRAARTER ONE (15:00)
[2021-12-14] MEDS ORDERED: SODIUM CHLORIDE 0.9% 1,000 ML in EMPTY BAG 1 BAG IV SCH (15:00)
[2021-12-14 16:41] LABS: Glucose,Whole Blood 274 mg/dL (70-110)
[2021-12-14] MEDS: HYDROcodone/APAP 5-325MG 1 EACH TAB PO PRN (18:22)
[2021-12-14] MEDS ORDERED: MORPHINE SULFATE 2 MG/ML SYRINGE IVP STA (19:56)
[2021-12-14 20:16] LABS: Glucose,Whole Blood 412 mg/dL (70-110)
[2021-12-14] MEDS ORDERED: ATORVASTATIN 80 MG TAB PO SCH (21:00)
[2021-12-14] MEDS ORDERED: INSULIN DETEMIR (LEVEMIR) 100 UNIT/ML SYR SQ SCH (21:00)
[2021-12-14] MEDS ORDERED: DULoxetine HCL 60 MG CAPSULE.DR PO SCH (21:00)
[2021-12-14] MEDS ORDERED: lisinopriL 20 MG TAB PO SCH (21:00)
[2021-12-14] MEDS ORDERED: FENOFIBRATE 160 MG TAB PO SCH (21:00)
[2021-12-14] MEDS: INSULIN ASPART (NovoLOG) 100 UNIT/ML VIAL SQ SCH (21:05)
[2021-12-15 05:06] VITALS: RESP 16
[2021-12-15] MEDS: HYDROcodone/APAP 5-325MG 1 EACH TAB PO PRN (05:06)
[2021-12-15 06:10] LABS: Glucose,Whole Blood 315 mg/dL (70-110)
[2021-12-15] MEDS: INSULIN ASPART (NovoLOG) 100 UNIT/ML VIAL SQ SCH ×2 (06:15→12:39)
[2021-12-15] MEDS ORDERED: INSULIN DETEMIR (LEVEMIR) 100 UNIT/ML SYR SQ SCH (07:00)
[2021-12-15 07:20] LABS: Basophils % (A) 1 %; Eosinophils # (A) 0.2 k/uL (0-0.7); Eosinophils % (A) 3 %; HCT 39.2 % (34.0-46.0); HGB 13.6 gm/dL (11.4-16.0); Lymphocytes # (A) 1.6 k/uL (1.0-4.8); Lymphocytes % (A) 28 %; MCH 29.9 pg (25.0-35.0); MCHC 34.6 g/dL (31.0-37.0); MCV 86.3 fL (80.0-100.0); Mean Platelet Volume 8.1; Monocytes # (A) 0.3 k/uL (0-1.0); Monocytes % (A) 6 %; Neutrophils # (A) 3.5 k/uL (1.3-7.7); Neutrophils % (A) 62 %; Platelet Count 149 k/uL (150-450); Poikilocytosis Slight; RBC 4.55 m/uL (3.80-5.40); RDW 13.9 % (11.5-15.5); WBC 5.7 k/uL (3.8-10.6)
[2021-12-15 07:54] LABS: African American GFR (CKD) >90 (>60 ml/min/1.73 sqM); Anion Gap 8 mmol/L; Blood Urea Nitrogen 11 mg/dL (7-17); Calcium 8.3 mg/dL (8.4-10.2); Carbon Dioxide 25 mmol/L (22-30); Chloride 104 mmol/L (98-107); Glucose 246 mg/dL (74-99); Non-African American GFR(CKD) >90 (>60 ml/min/1.73 sqM); Potassium 3.8 mmol/L (3.5-5.1); Sodium 137 mmol/L (137-145)
[2021-12-15] MEDS ORDERED: CLOPIDOGREL 75 MG TAB PO SCH (09:00)
[2021-12-15] MEDS ORDERED: ASPIRIN 81 MG PO SCH (09:00)
--- NOTE | 2021-12-15 09:21 | IR ---
Fluoroscopy HISTORY: Peripheral vascular occlusive disease 21.1 minutes fluoroscopy time supplied to the referring clinician. 420 intraoperative C-arm images d ocument the procedure. See dictated report from cardiology.
--- NOTE | 2021-12-15 09:57 | P.DS ---
Providers Attending physician: Vipul Lock Primary care physician: Stated None Hospital Course: The patient is a pleasant 61-year-old patient with a past medical history significant for lower extent his peripheral arterial disease with prior revascularization was admitted to the hospital yesterday and underwent left lower extremity angiogram associated with successful stenting of the left external iliac artery and successful balloon angioplasty of the left SFA and left peroneal artery. The procedure was performed from the right groin which is soft and nontender and without bruises. The left foot is warm. The patient is going to be discharged home on dual antiplatelet therapy along with high intensity statin and I will follow-up with the patient next week in the office Plan - Discharge Summary New Discharge Prescriptions: Continue DULoxetine HCL [Cymbalta] 60 mg PO HS Atorvastatin [Lipitor] 80 mg PO HS Nitroglycerin Sl Tabs [Nitrostat] 0.4 mg SUBLINGUAL Q5M PRN #50 tab PRN Reason: Chest Pain Aspirin 81 mg PO DAILY Insulin Glargine,Hum.rec.anlog [Semglee Pen] 40 units SQ QAM Fenofibrate [Lofibra] 160 mg PO HS HYDROcodone/APAP 5-325MG [[place] 5-325] 1 each PO Q8HR PRN #6 tab PRN Reason: Moderate Pain Clopidogrel [Plavix] 75 mg PO DAILY 30 Days #30 tab Insulin Glargine-Yfgn [Semglee (Yfgn) Pen] 30 units SQ HS lisinopriL [Zestril] 20 mg PO HS Discharge Medication List Atorvastatin [Lipitor] 80 mg PO HS 06/26/16 [History] DULoxetine HCL [Cymbalta] 60 mg PO HS 06/26/16 [History] Nitroglycerin Sl Tabs [Nitrostat] 0.4 mg SUBLINGUAL Q5M PRN #50 tab 07/02/16 [Rx] Aspirin 81 mg PO DAILY 10/08/17 [History] Fenofibrate [Lofibra] 160 mg PO HS 12/26/20 [History] Clopidogrel [Plavix] 75 mg PO DAILY 30 Days #30 tab 01/05/21 [Rx] HYDROcodone/APAP 5-325MG [[place] 5-325] 1 each PO Q8HR PRN #6 tab 01/05/21 [Rx] Insulin Glargine,Hum.rec.anlog [Semglee Pen] 40 units SQ QAM 12/12/21 [History] Insulin Glargine-Yfgn [Semglee (Yfgn) Pen] 30 units SQ HS 12/12/21 [History] lisinopriL [Zestril] 20 mg PO HS 12/12/21 [History] Follow up Appointment(s)/Referral(s): Vipul Lock MD [STAFF PHYSICIAN] - 1 Week (APPOINTMENT MADE ON December @ 1:30PM AT THE [facility] OFFICE)
[2021-12-15 11:42] LABS: Glucose,Whole Blood 280 mg/dL (70-110)
[2021-12-15 12:00] VITALS: BP 105/60; PULSE 63; TEMP 97.7
== END 2021-12-15 14:33 | disposition home or self-care (01) ==
LOC: CATHCVL 10:45 → 3SCARD 14:46 → CATHCVL 12-15 14:33
PROVIDERS: ATTEND Internal Medicine Interventional Cardiology
DX: I70.211 Atherosclerosis of native arteries of extremities with intermittent claudication, right leg (principal); Z79.82 Long term (current) use of aspirin; Z95.5 Presence of coronary angioplasty implant and graft
CPT/HCPCS: 37221; 37225; 37228; 37252; 37253; 80048; 85025; C1894 ×2; C1769 ×5; C1725 ×3; C1876; C1887; C1714; C1753; C2623; J2250; J2270 ×2; J2001; J1644; Q9966

== ENCOUNTER 2023-02-16 20:33 | Inpatient (IN) | payer MEDICARE ==
--- NOTE | 2023-02-16 21:46 | ED ---
Extremity Problem HPI - General Chief complaint: Extremity Problem,Nontraumatic Stated complaint: left foot pain Time Seen by Provider: 02/16/23 21:45 Source: patient Mode of arrival: wheelchair Limitations: no limitations - History of Present Illness Initial comments: 62-year-old female presenting with chief complaint of left foot pain. Pain has been ongoing for the last week. Patient has redness surrounding the left big toe as well as the MCP joint. She states that she is now having redness ascending up her leg. States that she had a blister on her toe which popped, there is now a black wound where the blister once was. Patient has history of amputation of the toes due to uncontrolled diabetes, her vascular surgeon is Dr. Padilla. She denies any fever, chills, nausea, vomiting, injury, trauma. - Related Data Home Medications Medication Instructions Recorded Confirmed Atorvastatin [Lipitor] 80 mg PO HS 06/26/16 12/14/21 DULoxetine HCL [Cymbalta] 60 mg PO HS 06/26/16 12/14/21 Aspirin 81 mg PO DAILY 10/08/17 12/14/21 Fenofibrate [Lofibra] 160 mg PO HS 12/26/20 12/14/21 Insulin Glargine,Hum.rec.anlog 40 units SQ QAM 12/12/21 12/14/21 [Semglee Pen] Insulin Glargine-Yfgn [Semglee 30 units SQ HS 12/12/21 12/14/21 (Yfgn) Pen] lisinopriL [Zestril] 20 mg PO HS 12/12/21 12/14/21 Previous Rx's Medication Instructions Recorded Nitroglycerin Sl Tabs [Nitrostat] 0.4 mg SUBLINGUAL Q5M PRN #50 tab 07/02/16 Clopidogrel [Plavix] 75 mg PO DAILY 30 Days #30 tab 01/05/21 HYDROcodone/APAP 5-325MG [[place] 1 each PO Q8HR PRN #6 tab 01/05/21 5-325] Allergies Allergy/AdvReac Type Severity Reaction Status Date / Time gluten AdvReac Nausea & Verified 02/16/23 21:04 Vomiting & Diarrhea, bloating Review of Systems ROS Statement: Those systems with pertinent positive or pertinent negative responses have been documented in the HPI. ROS Other: All systems not noted in ROS Statement are negative. 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 , unsteady gait., see [facility] Last Myocardial Infarction Date:: february 2017 History of Any Multi-Drug Resistant Organisms: None Reported Past Surgical History: Back Surgery, Cholecystectomy, Heart Catheterization With Stent, Orthopedic Surgery Additional Past Surgical History / Comment(s): Right 5th toe amputation, lumbar fusion, spinal cord stimulator in place but not working., left knee arthroscopy, EGD, PATRICIA, 3 cardiac stents, Aortoram, stent to left iliac artery. , stent right leg above the knee, right 4th toe amputation. Past Anesthesia/Blood Transfusion Reactions: No Reported Reaction Additional Past Anesthesia/Blood Transfusion Reaction / Comment(s): . Date of Last Stent Placement:: 12/14/2021 Past Psychological History: Anxiety Smoking Status: Current every day smoker Past Alcohol Use History: None Reported Past Drug Use History: None Reported - Past Family History Father Family Medical History: Cancer, Liver Disease Additional Family Medical History / Comment(s): Idiopathic cirrhosis of liver, Liver Cancer. Mother Family Medical History: Coronary Artery Disease (CAD), Myocardial Infarction (NM) Additional Family Medical History / Comment(s): Multiple stents. Mother at the age of 77 or 78 from [place]. General Exam - General Exam Comments Initial Comments: Visual Physical Exam Vital signs reviewed General: Well-appearing, nontoxic, no acute distress. Head: Normocephalic, atraumatic Eyes: PERRLA, EOMI ENT: Airway patent Chest: Nonlabored breathing Skin: No visual rash, normal skin tone Neuro: Alert and oriented 3 Musculoskeletal: No gross abnormalities Limitations: no limitations General appearance: alert, in no apparent distress Head exam: Present: atraumatic, normocephalic Eye exam: Present: normal appearance Neck exam: Present: normal inspection Respiratory exam: Present: normal lung sounds bilaterally. Absent: respiratory distress, wheezes, rales, rhonchi, stridor Cardiovascular Exam: Present: regular rate, normal rhythm, normal heart sounds. Absent: systolic murmur, diastolic murmur, rubs, gallop, clicks Left Foot/Toe exam: Present: tenderness, swelling (Some swelling to the left big toe), erythema Neurological exam: Present: alert, oriented X3 Psychiatric exam: Present: normal affect, normal mood Expanded Type of lesion: Present: other (There is a black ulceration to the left foot) Course Vital Signs 02/16/23 02/16/23 02/16/23 21:02 22:24 23:00 Temperature 98.1 F 98.6 F Pulse Rate 104 H 100 94 Respiratory 20 18 18 Rate Blood Pressure 139/82 111/92 148/99 O2 Sat by Pulse 98 99 99 Oximetry 02/17/23 02/17/23 02/17/23 00:00 01:00 02:00 Temperature Pulse Rate 90 94 95 Respiratory 18 18 18 Rate Blood Pressure 101/66 141/83 134/83 O2 Sat by Pulse 97 95 97 Oximetry Medical Decision Making - Medical Decision Making Was pt. sent in by a medical professional or institution (, PA, MOP MAN, urgent care, hospital, or [facility]...) When possible be specific @ -No Did you speak to anyone other than the patient for history (EMS, parent, family, police, friend...)? What history was obtained from this source @ -No Did you review nursing and triage notes (agree or disagree)? Why? @ -I reviewed and agree with nursing and triage notes Were old charts reviewed (outside hosp., previous admission, EMS record, old EKG, old radiological studies, urgent care reports/EKG's, [facility] records)? Report findings @ -No old charts were reviewed Differential Diagnosis (chest pain, altered mental status, abdominal pain women, abdominal pain men, vaginal bleeding, weakness, fever, dyspnea, syncope, headache, dizziness, GI bleed, back pain, seizure, CVA, palpatations, mental health, musculoskeletal)? @ -Differential Musculoskeletal Muscular strain, contusion, ligament sprain, fracture, arthritis, septic arthritis, bursitis, cellulitis, muscle spasm, nerve compression, DVT, arterial occlusion, herpes zoster, electrolyte abnormality, tumor.... This is not meant to be in all inclusive list EKG interpreted by me (3pts min.). @ -As above X-rays interpreted by me (1pt min.). @ -X-ray shows no radiographic evidence of osteomyelitis CT interpreted by me (1pt min.). @ -None done U/S interpreted by me (1pt. min.). @ -None done What testing was considered but not performed or refused? (CT, X-rays, U/S, labs)? Why? @ -None What meds were considered but not given or refused? Why? @ -None Did you discuss the management of the patient with other professionals (professionals i.e. , PA, MOP MAN, lab, RT, psych nurse, social welfare administrator, data operations leader, teacher, conservation enforcement officer, transplant case manager)? Give summary @ -My attending spoke with the [facility] provider on-call who accepted admission Was smoking cessation discussed for >3mins.? @ -No Was critical care preformed (if so, how long)? @ -No Were there social determinants of health that impacted care today? How? (Homelessness, low income, unemployed, alcoholism, drug addiction, transportation, low edu. Level, literacy, decrease access to med. care, shelter, rehab)? @ -No Was there de-escalation of care discussed even if they declined (Discuss DNR or withdrawal of care, Hospice)? DNR status @ -No What co-morbidities impacted this encounter? (DM, HTN, Smoking, COPD, CAD, Cancer, CVA, ARF, Chemo, Hep., AIDS, mental health diagnosis, sleep apnea, morbid obesity)? @ -Diabetes Was patient admitted / discharged? Hospital course, mention meds given and rout e, prescriptions, significant lab abnormalities, going to OR and other pertinent info. @ -62-year-old female presenting with chief complaint of left foot pain. Patient also has a black ulceration to the foot. History of diabetes. Lab work shows no leukocytosis or anemia. Glucose 334. Lactic acid 3.0. Patient is receiving IV fluids and vancomycin this started after blood cultures are drawn. X-rays negative for osteomyelitis. Patient will be admitted for diabetic foot i nfection. She is agreeable with this plan. I discussed this case with my attending Dr. Avilez. Undiagnosed new problem with uncertain prognosis? @ -No Drug Therapy requiring intensive monitoring for toxicity (Heparin, Nitro, Insulin, Cardizem)? @ -No Were any procedures done? @ -No Diagnosis/symptom? @ -Diabetic foot infection Acute, or Chronic, or Acute on Chronic? @ -Acute Uncomplicated (without systemic symptoms) or Complicated (systemic symptoms)? @ -Complicated Side effects of treatment? @ -No Exacerbation, Progression, or Severe Exacerbation? @ -No Poses a threat to life or bodily function? How? (Chest pain, USA, [place], pneumonia, PE, COPD, DKA, ARF, appy, cholecystitis, CVA, Diverticulitis, Homicidal, Suicidal, threat to staff... and all critical care pts) @ -yes - Lab Data Result diagrams: 02/16/23 22:02/16/23 22: Lab Results 02/16/23 02/16/23 02/16/23 Range/Units 22: 22: 22: WBC 9.5 (3.8-10.6) k/uL RBC 5.37 (3.80-5.40) m/uL Hgb 16.0 (11.4-16.0) gm/dL Hct 46.1 H (34.0-46.0) % MCV 85.9 (80.0-100.0) fL MCH 29.7 (25.0-35.0) pg MCHC 34.6 (31.0-37.0) g/dL RDW 13.8 (11.5-15.5) % Plt Count 260 (150-450) k/uL MPV 7.8 Neutrophils % 70 % Lymphocytes % 23 % Monocytes % 3 % Eosinophils % 1 % Basophils % 1 % Neutrophils # 6.7 (1.3-7.7) k/uL Lymphocytes # 2.2 (1.0-4.8) k/uL Monocytes # 0.3 (0-1.0) k/uL Eosinophils # 0.1 (0-0.7) k/uL Basophils # 0.1 (0-0.2) k/uL Sodium 139 (137-145) mmol/L Potassium 4.2 (3.5-5.1) mmol/L Chloride 97 L (98-107) mmol/L Carbon Dioxide 29 (22-30) mmol/L Anion Gap 13 mmol/L BUN 10 (7-17) mg/dL Creatinine 0.50 L (0.52-1.04) mg/dL Est GFR (CKD-EPI)AfAm >90 (>60 ml/min/1.73 sqM) Est GFR (CKD-EPI)NonAf >90 (>60 ml/min/1.73 sqM) Glucose 334 H (74-99) mg/dL Lactic Ac Sepsis Rflx Plasma Lactic Acid Yousif 3.0 H* (0.7-2.0) mmol/L Calcium 9.6 (8.4-10.2) mg/dL Total Bilirubin 0.4 (0.2-1.3) mg/dL AST 18 (14-36) U/L ALT 15 (4-34) U/L Alkaline Phosphatase 83 (38-126) U/L Total Protein 7.4 (6.3-8.2) g/dL Albumin 4.4 (3.5-5.0) g/dL 02/16/23 Range/Units 23:20 WBC (3.8-10.6) k/uL RBC (3.80-5.40) m/uL Hgb (11.4-16.0) gm/dL Hct (34.0-46.0) % MCV (80.0-100.0) fL MCH (25.0-35.0) pg MCHC (31.0-37.0) g/dL RDW (11.5-15.5) % Plt Count (150-450) k/uL MPV Neutrophils % % Lymphocytes % % Monocytes % % Eosinophils % % Basophils % % Neutrophils # (1.3-7.7) k/uL Lymphocytes # (1.0-4.8) k/uL Monocytes # (0-1.0) k/uL Eosinophils # (0-0.7) k/uL Basophils # (0-0.2) k/uL Sodium (137-145) mmol/L Potassium (3.5-5.1) mmol/L Chloride (98-107) mmol/L Carbon Dioxide (22-30) mmol/L Anion Gap mmol/L BUN (7-17) mg/dL Creatinine (0.52-1.04) mg/dL Est GFR (CKD-EPI)AfAm (>60 ml/min/1.73 sqM) Est GFR (CKD-EPI)NonAf (>60 ml/min/1.73 sqM) Glucose (74-99) mg/dL Lactic Ac Sepsis Rflx Y Plasma Lactic Acid Yousif (0.7-2.0) mmol/L Calcium (8.4-10.2) mg/dL Total Bilirubin (0.2-1.3) mg/dL AST (14-36) U/L ALT (4-34) U/L Alkaline Phosphatase (38-126) U/L Total Protein (6.3-8.2) g/dL Albumin (3.5-5.0) g/dL Disposition Clinical Impression: Diabetic foot infection Disposition: ADMITTED IP TO THIS HOSP Condition: Fair Time of Disposition: 01:21
[2023-02-16 22:30] LABS: Basophils # (A) 0.1 k/uL (0-0.2); Basophils % (A) 1 %; Eosinophils # (A) 0.1 k/uL (0-0.7); Eosinophils % (A) 1 %; HCT 46.1 % (34.0-46.0); Lymphocytes # (A) 2.2 k/uL (1.0-4.8); Lymphocytes % (A) 23 %; MCH 29.7 pg (25.0-35.0); MCHC 34.6 g/dL (31.0-37.0); MCV 85.9 fL (80.0-100.0); Mean Platelet Volume 7.8; Monocytes # (A) 0.3 k/uL (0-1.0); Monocytes % (A) 3 %; Neutrophils # (A) 6.7 k/uL (1.3-7.7); Neutrophils % (A) 70 %; Platelet Count 260 k/uL (150-450); RBC 5.37 m/uL (3.80-5.40); RDW 13.8 % (11.5-15.5); WBC 9.5 k/uL (3.8-10.6)
[2023-02-16 22:59] LABS: ALT 15 U/L (4-34); AST 18 U/L (14-36); African American GFR (CKD) >90 (>60 ml/min/1.73 sqM); Albumin 4.4 g/dL (3.5-5.0); Alkaline Phosphatase 83 U/L (38-126); Anion Gap 13 mmol/L; Blood Urea Nitrogen 10 mg/dL (7-17); Calcium 9.6 mg/dL (8.4-10.2); Carbon Dioxide 29 mmol/L (22-30); Chloride 97 mmol/L (98-107); Glucose 334 mg/dL (74-99); Non-African American GFR(CKD) >90 (>60 ml/min/1.73 sqM); Potassium 4.2 mmol/L (3.5-5.1); Sodium 139 mmol/L (137-145); Total Bilirubin 0.4 mg/dL (0.2-1.3); Total Protein 7.4 g/dL (6.3-8.2)
[2023-02-16] MEDS ORDERED: DEXTROSE 50% SYRINGE 50 ML IVP PRN ×2 (23:10)
[2023-02-16] MEDS ORDERED: SODIUM CHLORIDE 0.9% 1,000 ML IV ONE (23:52)
[2023-02-16] MEDS: HYDROmorphone 1 MG/ML 1 ML SYRINGE IVP PRN (23:52)
[2023-02-17] MEDS ORDERED: VANCOMYCIN IV PER PHARMACY 1 EACH MISC MISCELLANE PRN (00:18)
[2023-02-17] MEDS ORDERED: VANCOMYCIN 1,250 MG in SODIUM CHLORIDE 0.9% 250 ML IVPB STA (00:28)
--- NOTE | 2023-02-17 01:00 | XR ---
EXAM: XR Left Toes, 2 or More Views CLINICAL HISTORY: ITS.REASON XR Reason: 1st toe infection TECHNIQUE: Frontal, lateral and oblique views of the toes of the left foot. COMPARISON: No relevant prior studies available. FINDINGS: Bones/joints: No radiographic evidence of osteomyelitis. No acute fracture. The bones are osteopenic. Soft tissues: Soft tissue edema in the forefoot. No soft tissue gas. No radiopaque foreign body. IMPRESSION: No radiographic evidence of osteomyelitis.
[2023-02-17] MEDS ORDERED: ACETAMINOPHEN TAB 325 MG TAB PO PRN (01:18)
[2023-02-17] MEDS ORDERED: NALOXONE 0.4 MG/ML 1 ML VIAL IV PRN (01:18)
[2023-02-17] MEDS ORDERED: KETOROLAC 15 MG/ML 1 ML VIAL IVP PRN (01:18)
[2023-02-17] MEDS: SODIUM CHLORIDE 0.9% 1,000 ML IV SCH ×2 (01:58→18:37)
[2023-02-17] MEDS: HYDROmorphone 1 MG/ML 1 ML SYRINGE IVP PRN ×4 (04:21→22:12)
[2023-02-17 04:34] LABS: Glucose,Whole Blood 196 mg/dL (70-110)
[2023-02-17 07:37] LABS: Glucose,Whole Blood 167 mg/dL (70-110)
[2023-02-17] MEDS: VANCOMYCIN 1,250 MG in SODIUM CHLORIDE 0.9% 250 ML IVPB SCH ×2 (08:46→16:30)
[2023-02-17] MEDS: INSULIN ASPART (NovoLOG) 100 UNIT/ML VIAL SQ SCH ×4 (08:46→22:05)
[2023-02-17 12:33] LABS: Glucose,Whole Blood 288 mg/dL (70-110)
--- NOTE | 2023-02-17 12:42 | P.GSCN ---
History of Present Illness History of present illness: 62-year-old white female known to me from the past. Patient came to the emergency room with history of pain doesn't discomfort and blister formation noted on the left foot big toe which can into black eschar that also superficial eschar noted on the fifth toe also patient has a some marked redness on the dorsal aspect of the foot. This patient to had a vascular intervention done by Dr. Cruz in the past patient had a popliteal and infrapopliteal intervention on the left leg and also on the right leg Medical history history of diabetes mellitus, history of celiac disease patient is ALLERGIC to do tendon was history patient had a coronary artery stent placed in the past and also bilateral lower ex extremity intervention per Dr. Cruz Personal history patient has a history of smoking continue to smoke On examination neck is supple no bruit appreciated Chest is clear good air entry both lungs abdomen soft nontender femorals are deep 1+ PTDP not palpable left foot has a redness and scab formation noted on the big toe and fifth toe Plan is patient is under care of infectious disease for IV antibiotic we been using medihoney gel to the left big toe and fifth toe we will discuss with Dr. 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 , unsteady gait., see [facility] Last Myocardial Infarction Date:: february 2017 History of Any Multi-Drug Resistant Organisms: None Reported Past Surgical History: Back Surgery, Cholecystectomy, Heart Catheterization With Stent, Orthopedic Surgery Additional Past Surgical History / Comment(s): Right 5th toe amputation, lumbar fusion, spinal cord stimulator in place but not working., left knee arthroscopy, EGD, PATRICIA, 3 cardiac stents, Aortoram, stent to left iliac artery. , stent right leg above the knee, right 4th toe amputation. Past Anesthesia/Blood Transfusion Reactions: No Reported Reaction Additional Past Anesthesia/Blood Transfusion Reaction / Comm: . Date of Last Stent Placement:: 12/14/2021 Past Psychological History: Anxiety Additional Psychological History / Comment(s): . Smoking Status: Current every day smoker Past Alcohol Use History: None Reported Additional Past Alcohol Use History / Comment(s): Started smoking in 1989, smokes 1/2 pack / day. Past Drug Use History: None Reported - Past Family History Father Family Medical History: Cancer, Liver Disease Additional Family Medical History / Comment(s): Idiopathic cirrhosis of liver, Liver Cancer. Mother Family Medical History: Coronary Artery Disease (CAD), Myocardial Infarction (MD) Additional Family Medical History / Comment(s): Multiple stents. Mother at the age of 77 or 78 from [place]. Medications and Allergies Home Medications Medication Instructions Recorded Confirmed Type Atorvastatin [Lipitor] 80 mg PO HS 06/26/16 02/17/23 History Aspirin 81 mg PO DAILY 10/08/17 02/17/23 History Clopidogrel [Plavix] 75 mg PO DAILY 30 Days #30 tab 01/05/21 02/17/23 Rx Insulin NPH Hum/Reg Insulin Hm See Protocol SQ ACHS 02/17/23 02/17/23 History [Novolin 70-30 100 Unit/ml Vial] Allergies Allergy/AdvReac Type Severity Reaction Status Date / Time gluten AdvReac Nausea & Verified 02/17/23 10:57 Vomiting & Diarrhea, bloating Surgical - Exam Vital Signs Temp Pulse Resp BP Pulse Ox 98.1 F 104 H 20 139/82 98 02/16/23 21:02 02/16/23 21:02 02/16/23 21:02 02/16/23 21:02 02/16/23 21:02 Results - Labs 02/16/23 22:01 02/16/23 22:01 Abnormal Lab Results - Last 24 Hours (Table) 02/16/23 02/16/23 02/16/23 Range/Units 22:01 22:01 22:01 Hct 46.1 H (34.0-46.0) % Chloride 97 L (98-107) mmol/L Creatinine 0.50 L (0.52-1.04) mg/dL Glucose 334 H (74-99) mg/dL POC Glucose (mg/dL) (70-110) mg/dL Plasma Lactic Acid Yousif 3.0 H* (0.7-2.0) mmol/L 02/17/23 02/17/23 02/17/23 Range/Units 04:32 07:36 12:32 Hct (34.0-46.0) % Chloride (98-107) mmol/L Creatinine (0.52-1.04) mg/dL Glucose (74-99) mg/dL POC Glucose (mg/dL) 196 H 167 H 288 H (70-110) mg/dL Plasma Lactic Acid Yousif (0.7-2.0) mmol/L Diabetes panel 02/16/23 Range/Units 22:01 Sodium 139 (137-145) mmol/L Potassium 4.2 (3.5-5.1) mmol/L Chloride 97 L (98-107) mmol/L Carbon Dioxide 29 (22-30) mmol/L BUN 10 (7-17) mg/dL Creatinine 0.50 L (0.52-1.04) mg/dL Glucose 334 H (74-99) mg/dL Calcium 9.6 (8.4-10.2) mg/dL AST 18 (14-36) U/L ALT 15 (4-34) U/L Alkaline Phosphatase 83 (38-126) U/L Total Protein 7.4 (6.3-8.2) g/dL Albumin 4.4 (3.5-5.0) g/dL Calcium panel 02/16/23 Range/Units 22:01 Calcium 9.6 (8.4-10.2) mg/dL Albumin 4.4 (3.5-5.0) g/dL Pituitary panel 02/16/23 Range/Units 22:01 Sodium 139 (137-145) mmol/L Potassium 4.2 (3.5-5.1) mmol/L Chloride 97 L (98-107) mmol/L Carbon Dioxide 29 (22-30) mmol/L BUN 10 (7-17) mg/dL Creatinine 0.50 L (0.52-1.04) mg/dL Glucose 334 H (74-99) mg/dL Calcium 9.6 (8.4-10.2) mg/dL Adrenal panel 02/16/23 Range/Units 22:01 Sodium 139 (137-145) mmol/L Potassium 4.2 (3.5-5.1) mmol/L Chloride 97 L (98-107) mmol/L Carbon Dioxide 29 (22-30) mmol/L BUN 10 (7-17) mg/dL Creatinine 0.50 L (0.52-1.04) mg/dL Glucose 334 H (74-99) mg/dL Calcium 9.6 (8.4-10.2) mg/dL Total Bilirubin 0.4 (0.2-1.3) mg/dL AST 18 (14-36) U/L ALT 15 (4-34) U/L Alkaline Phosphatase 83 (38-126) U/L Total Protein 7.4 (6.3-8.2) g/dL Albumin 4.4 (3.5-5.0) g/dL
[2023-02-17] MEDS: AMPICILLIN-SULBACTAM 3 GM in SODIUM CHLORIDE 0.9% 100 ML IVPB SCH ×2 (12:54→18:35)
--- NOTE | 2023-02-17 13:33 | P.CRDCN ---
History of Present Illness Consult date: 02/17/23 History of present illness: HISTORY OF PRESENTING ILLNESS 62-year-old female presents to the hospital because of worsening pain and discomfort along with blister formation on her right foot to along with black eschar formation. Patient has a prior history of PAD and CAD and follows up with Dr. Cruz. At this time patient is doing well from cardiac vessel standpoint. She denies having any active chest pain chest pressure or shortness of breath. She denies any palpitations lightheadedness or dizziness. Her most of the complaints are because of a nonhealing wound on her left foot and possible concerns of gangrene formation. Cardiology was consulted to make sure there was concerns of critical limb ischemia. REVIEW OF SYSTEMS 14 point review of system is negative except what is mentioned above in HPI. PHYSICAL EXAMINATION Vital signs reviewed. Head: Normocephalic. Eyes: Sclerae nonicteric. Neck: Brisk carotid upstroke, no jugular venous distention. Lungs: Clear to auscultation. Heart: Regular rate and rhythm, S1-S2, no S3, no murmur or rub. Abdomen: Soft nontender, positive bowel sounds no organomegaly. Extremities: No edema, redness and Skaff formation noticed on the 25th toe. Poor pulses in left lower leg Neuro: Alert, oritented, no focal deficits ASSESSMENT Gangrene of left great toe and fifth toe History of PAD status post [employer] right and left leg. Last intervention November 2021 with balloon angioplasty of left SFA left peroneal. History of CAD status post PCI 3 PLAN Resume aspirin, Plavix, atorvastatin 80 mg. Agree with IV antibiotics as per infectious disease recommendations. Try to obtain pulses using the venous Doppler. No evidence of critical limb ischemia with no signs of pain, paresthesias, pallor, poikilothermia. 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 , unsteady gait., see [facility] Last Myocardial Infarction Date:: february 2017 History of Any Multi-Drug Resistant Organisms: None Reported Past Surgical History: Back Surgery, Cholecystectomy, Heart Catheterization With Stent, Orthopedic Surgery Additional Past Surgical History / Comment(s): Right 5th toe amputation, lumbar fusion, spinal cord stimulator in place but not working., left knee arthroscopy, EGD, PATRICIA, 3 cardiac stents, Aortoram, stent to left iliac artery. , stent right leg above the knee, right 4th toe amputation. Past Anesthesia/Blood Transfusion Reactions: No Reported Reaction Additional Past Anesthesia/Blood Transfusion Reaction / Comment(s): . Date of Last Stent Placement:: 12/14/2021 Past Psychological History: Anxiety Additional Psychological History / Comment(s): . Smoking Status: Current every day smoker Past Alcohol Use History: None Reported Additional Past Alcohol Use History / Comment(s): Started smoking in 1989, smok es 1/2 pack / day. Past Drug Use History: None Reported - Past Family History Father Family Medical History: Cancer, Liver Disease Additional Family Medical History / Comment(s): Idiopathic cirrhosis of liver, Liver Cancer. Mother Family Medical History: Coronary Artery Disease (CAD), [place]ocardial Infarction ([place]) Additional Family Medical History / Comment(s): Multiple stents. Mother at the age of 77 [place] 78 from [place]. Medications and Allergies Home Medications Medication Instructions Recorded Confirmed Type Atorvastatin [Lipitor] 80 mg PO HS 06/26/16 02/17/23 History Aspirin 81 mg PO DAILY 10/08/17 02/17/23 History Clopidogrel [Plavix] 75 mg PO DAILY 30 Days #30 tab 01/05/21 02/17/23 Rx Insulin NPH Hum/Reg Insulin Hm See Protocol SQ ACHS 02/17/23 02/17/23 History [Novolin 70-30 100 Unit/ml Vial] Allergies Allergy/AdvReac Type Severity Reaction Status Date / Time gluten AdvReac Nausea & Verified 02/17/23 10:57 Vomiting & Diarrhea, bloating Physical Exam Vitals: Vital Signs Temp Pulse Pulse Resp BP BP Pulse Ox 02/17/23 07:38 97.9 F 78 18 130/84 93 L 02/17/23 04:28 97.8 F 83 20 117/72 95 02/17/23 04:00 76 18 103/80 95 02/17/23 02:00 95 18 134/83 97 02/17/23 01:00 94 18 141/83 95 02/17/23 00:00 90 18 101/66 97 02/16/23 23:00 94 18 101/66 99 02/16/23 22:24 98.6 F 100 18 111/92 99 02/16/23 21:02 98.1 F 104 H 20 139/82 98 Intake and Output 02/16/23 02/17/23 02/17/23 22:59 06:59 14:59 Intake Total 225 Output Total 50 Balance 225 -50 Intake: Intake, IV Titration 225 Amount Sodium Chloride 0.9% 1, 225 000 ml @ 75 mls/hr IV . [id number] [facility] Rx#:[id number] Output: Gastric Drainage 50 Other: Voiding Method Toilet Weight 65.317 kg 65.317 kg Results 02/16/23 22:01 02/16/23 22:01 Cardiac Enzymes 02/16/23 Range/Units 22:01 AST 18 (14-36) U/L CBC 02/16/23 Range/Units 22:01 WBC 9.5 (3.8-10.6) k/uL RBC 5.37 (3.80-5.40) m/uL Hgb 16.0 (11.4-16.0) gm/dL Hct 46.1 H (34.0-46.0) % Plt Count 260 (150-450) k/uL Comprehensive Metabolic Panel 02/16/23 Range/Units 22:01 Sodium 139 (137-145) mmol/L Potassium 4.2 (3.5-5.1) mmol/L Chloride 97 L (98-107) mmol/L Carbon Dioxide 29 (22-30) mmol/L BUN 10 (7-17) mg/dL Creatinine 0.50 L (0.52-1.04) mg/dL Glucose 334 H (74-99) mg/dL Calcium 9.6 (8.4-10.2) mg/dL AST 18 (14-36) U/L ALT 15 (4-34) U/L Alkaline Phosphatase 83 (38-126) U/L Total Protein 7.4 (6.3-8.2) g/dL Albumin 4.4 (3.5-5.0) g/dL Current Medications Generic Name Dose Route Start Last Admin Trade Name Freq PRN Reason Stop Dose Admin Acetaminophen 650 mg 02/17/23 01:18 Acetaminophen Tab 325 Mg Tab PO Q6HR PRN Mild Pain or Fever > 100.5 Alprazolam 0.25 mg 02/17/23 13:03 Alprazolam 0.25 Mg Tab PO BID PRN Anxiety Dextrose/Water 25 ml 02/16/23 23:10 Dextrose 50% Syringe 50 Ml IVP PER PROTOCOL PRN Hypoglycemia Protocol Dextrose/Water 50 ml 02/16/23 23:10 Dextrose 50% Syringe 50 Ml IVP PER PROTOCOL PRN Hypoglycemia Protocol Hydromorphone HCl 1 mg 02/16/23 23:10 02/17/23 09:33 Hydromorphone 1 Mg/Ml 1 Ml Syringe IVP 1 mg Q4HR PRN Administration Pain Vancomycin HCl 1,250 mg/ 250 mls @ 125 mls/hr 02/17/23 08:00 02/17/23 08:46 Sodium Chloride IVPB 125 mls/hr Q8HR [facility] Administration Sodium Chloride 1,000 mls @ 75 mls/hr 02/17/23 01:30 02/17/23 01:58 Saline 0.9% IV 75 mls/hr .[id number] [facility] Administration Ampicillin Sodium/Sulbactam 100 mls @ 200 mls/hr 02/17/23 12:00 02/17/23 12:54 Sodium 3 gm/ Sodium Chloride IVPB 200 mls/hr Q6HR [facility] Administration Protocol Insulin Aspart 0 unit 02/17/23 07:30 02/17/23 12:54 Insulin Aspart (Novolog) 100 Unit/Ml Vial SQ 3 unit ACHS [facility] Administration Protocol Ketorolac Tromethamine 15 mg 02/17/23 01:18 Ketorolac 15 Mg/Ml 1 Ml Vial IVP 02/20/23 01:19 Q6HR PRN Moderate Pain (Scale 4 to 6) Naloxone HCl 0.2 mg 02/17/23 01:18 Naloxone 0.4 Mg/Ml 1 Ml Vial IV Q2M PRN Opioid Reversal Intake and Output 02/16/23 02/17/23 02/17/23 22:59 06:59 14:59 Intake Total 225 Output Total 50 Balance 225 -50 Intake: Intake, IV Titration 225 Amount Sodium Chloride 0.9% 1, 225 000 ml @ 75 mls/hr IV . [id number] [facility] Rx#:[id number] Output: Gastric Drainage 50 Other: Voiding Method Toilet Weight 65.317 kg 65.317 kg 02/16/23 22:01 02/16/23 22:01
--- NOTE | 2023-02-17 14:11 | P.HPIM ---
History of Present Illness H&P Date: 02/17/23 History of present illness; patient is a 62-year-old lady with past medical his tory significant for hypertension, diabetes mellitus, hyperlipidemia who presented to The ER for left foot pain. Patient stated that she was all right one week back when she had a blister on her left big toe which popped, following that she noticed that there was a black wound that appeared. Patient started noticing redness around the left big toe that started progressing up her foot. Patient was also having pain in her left foot. No complain of any fever or chills. Patient denied any nausea, vomiting abdominal pain. Because of this persistent left foot pain, patient came to the ER Initial lab work done in the ER showed WBC 9.5, hemoglobin 16, platelet count 260, sodium 139, potassium 4.2, BUN 10, creatinine 0.50, glucose 334, lactate 3 X-ray left toe showed no evidence of osteomyelitis Patient admitted to internal medicine service REVIEW OF SYSTEMS: CONSTITUTIONAL: No fever, no malaise, no fatigue. HEENT: No recent visual problems or hearing problems. Denied any sore throat. CARDIOVASCULAR: No chest pain, orthopnea, PND, no palpitations, no syncope. PULMONARY: No shortness of breath, no cough, no hemoptysis. GASTROINTESTINAL: No diarrhea, no nausea, no vomiting, no abdominal pain. NEUROLOGICAL: No headaches, no weakness, no numbness. HEMATOLOGICAL: Denies any bleeding or petechiae. GENITOURINARY: Denies any burning micturition, frequency, or urgency. MUSCULOSKELETAL/RHEUMATOLOGICAL: As mentioned Above ENDOCRINE: Denies any polyuria or polydipsia. The rest of the 14-point review of systems is negative. PHYSICAL EXAMINATION: GENERAL: The patient is alert and oriented x3, not in any acute distress. Well developed, well nourished. HEENT: Pupils are round and equally reacting to light. EOMI. No scleral icterus. No conjunctival pallor. Normocephalic, atraumatic. No pharyngeal erythema. No thyromegaly. CARDIOVASCULAR: S1 and S2 present. No murmurs, rubs, or gallops. PULMONARY: Chest is clear to auscultation, no wheezing or crackles. ABDOMEN: Soft, nontender, nondistended, normoactive bowel sounds. No palpable organomegaly. MUSCULOSKELETAL: Left foot ulcer seen EXTREMITIES: No cyanosis, clubbing, or pedal edema. NEUROLOGICAL: Gross neurological examination did not reveal any focal deficits. SKIN: No rashes. Assessment and plan Left foot cellulitis Left foot diabetic ulcer Hypertension Insulin-dependent diabetes mellitus Hyperlipidemia Monitor vital signs Monitor CBC Monitor CMP Continue telemetry monitoring follow-up on blood cultures Continue wound care Continue IV vancomycin Consult vascular surgery Consult ID Monitor blood sugar levels, continue home insulin regimen Labs and medication were reviewed.. Continue same treatment. Continue with symptomatic treatment. Resume home medication. Monitor labs and vitals. DVT and GI prophylaxis. Further recommendations as per clinical course of the patient Dictation was produced using [employer] dictation software. please excuse any grammatical, word or spelling errors. 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 , unsteady gait., see Cardiology [facility] Last Myocardial Infarction Date:: february 2017 History of Any Multi-Drug Resistant Organisms: None Reported Past Surgical History: Back Surgery, Cholecystectomy, Heart Catheterization With Stent, Orthopedic Surgery Additional Past Surgical History / Comment(s): Right 5th toe amputation, lumbar fusion, spinal cord stimulator in place but not working., left knee arthroscopy, EGD, PATRICIA, 3 cardiac stents, Aortoram, stent to left iliac artery. , stent right leg above the knee, right 4th toe amputation. Past Anesthesia/Blood Transfusion Reactions: No Reported Reaction Additional Past Anesthesia/Blood Transfusion Reaction / Comment(s): . Date of Last Stent Placement:: 12/14/2021 Past Psychological History: Anxiety Additional Psychological History / Comment(s): . Smoking Status: Current every day smoker Past Alcohol Use History: None Reported Additional Past Alcohol Use History / Comment(s): Started smoking in 1989, smokes 1/2 pack / day. Past Drug Use History: None Reported - Past Family History Father Family Medical History: Cancer, Liver Disease Additional Family Medical History / Comment(s): Idiopathic cirrhosis of liver, Liver Cancer. Mother Family Medical History: Coronary Artery Disease (CAD), [place]ocardial Infarction ([place]) Additional Family Medical History / Comment(s): Multiple stents. Mother at the age of 77 or 78 from [place]. Medications and Allergies Home Medications Medication Instructions Recorded Confirmed Type Atorvastatin [Lipitor] 80 mg PO HS 06/26/16 02/17/23 History Aspirin 81 mg PO DAILY 10/08/17 02/17/23 History Clopidogrel [Plavix] 75 mg PO DAILY 30 Days #30 tab 01/05/21 02/17/23 Rx Insulin NPH Hum/Reg Insulin Hm See Protocol SQ ACHS 02/17/23 02/17/23 History [Novolin 70-30 100 Unit/ml Vial] Allergies Allergy/AdvReac Type Severity Reaction Status Date / Time gluten AdvReac Nausea & Verified 02/17/23 10:57 Vomiting & Diarrhea, bloating Physical Exam Vitals: Vital Signs Temp Pulse Pulse Resp BP BP Pulse Ox 02/17/23 07:38 97.9 F 78 18 130/84 93 L 02/17/23 04:28 97.8 F 83 20 117/72 95 02/17/23 04:00 76 18 103/80 95 02/17/23 02:00 95 18 134/83 97 02/17/23 01:00 94 18 141/83 95 02/17/23 00:00 90 18 101/66 97 02/16/23 23:00 94 18 101/66 99 02/16/23 22:24 98.6 F 100 18 111/92 99 02/16/23 21:02 98.1 F 104 H 20 139/82 98 Intake and Output 02/16/23 02/17/23 02/17/23 22:59 06:59 14:59 Intake Total 225 Output Total 50 Balance 225 -50 Intake: Intake, IV Titration 225 Amount Sodium Chloride 0.9% 1, 225 000 ml @ 75 mls/hr IV . [id number] [facility] Rx#:[id number] Output: Gastric Drainage 50 Other: Weight 65.317 kg 65.317 kg Results CBC & Chem 7: 02/16/23 22:01 02/16/23 22:01 Labs: Abnormal Lab Results - Last 24 Hours (Table) 02/16/23 02/16/23 02/16/23 Range/Units 22:01 22:01 22:01 Hct 46.1 H (34.0-46.0) % Chloride 97 L (98-107) mmol/L Creatinine 0.50 L (0.52-1.04) mg/dL Glucose 334 H (74-99) mg/dL POC Glucose (mg/dL) (70-110) mg/dL Plasma Lactic Acid Yousif 3.0 H* (0.7-2.0) mmol/L 02/17/23 02/17/23 Range/Units 04:32 07:36 Hct (34.0-46.0) % Chloride (98-107) mmol/L Creatinine (0.52-1.04) mg/dL Glucose (74-99) mg/dL POC Glucose (mg/dL) 196 H 167 H (70-110) mg/dL Plasma Lactic Acid Yousif (0.7-2.0) mmol/L
[2023-02-17] MEDS ORDERED: ASPIRIN 81 MG PO SCH (14:15)
[2023-02-17] MEDS: ASPIRIN 81 MG PO SCH (14:44)
[2023-02-17 17:15] LABS: Glucose,Whole Blood 290 mg/dL (70-110)
[2023-02-17 19:26] LABS: Glucose,Whole Blood 352 mg/dL (70-110)
[2023-02-17] MEDS ORDERED: ATORVASTATIN 80 MG TAB PO SCH (21:00)
[2023-02-17] MEDS: ATORVASTATIN 80 MG TAB PO SCH (22:05)
[2023-02-17] MEDS: ALPRAZolam 0.25 MG TAB PO PRN (23:58)
[2023-02-18] MEDS: AMPICILLIN-SULBACTAM 3 GM in SODIUM CHLORIDE 0.9% 100 ML IVPB SCH ×6 (05:48→23:23)
[2023-02-18] MEDS: SODIUM CHLORIDE 0.9% 1,000 ML IV SCH ×2 (05:49→09:13)
[2023-02-18] MEDS ORDERED: VANCOMYCIN TROUGH DUE 1 EACH MISC MISCELLANE ONE (07:00)
[2023-02-18 07:07] LABS: Glucose,Whole Blood 415 mg/dL (70-110)
[2023-02-18] MEDS: INSULIN ASPART (NovoLOG) 100 UNIT/ML VIAL SQ SCH ×4 (08:07→20:37)
[2023-02-18] MEDS: ASPIRIN 81 MG PO SCH (08:07)
[2023-02-18] MEDS: CLOPIDOGREL 75 MG TAB PO SCH (08:07)
[2023-02-18 08:09] LABS: Basophils % (A) 1 %; Eosinophils # (A) 0.2 k/uL (0-0.7); Eosinophils % (A) 2 %; HCT 37.4 % (34.0-46.0); Lymphocytes # (A) 1.5 k/uL (1.0-4.8); Lymphocytes % (A) 25 %; MCH 29.8 pg (25.0-35.0); MCHC 34.3 g/dL (31.0-37.0); MCV 86.9 fL (80.0-100.0); Mean Platelet Volume 8.1; Monocytes # (A) 0.4 k/uL (0-1.0); Monocytes % (A) 6 %; Neutrophils % (A) 65 %; Platelet Count 160 k/uL (150-450); Poikilocytosis Slight; RBC 4.31 m/uL (3.80-5.40); WBC 6.2 k/uL (3.8-10.6)
[2023-02-18 08:11] LABS: HGB 12.9 gm/dL (11.4-16.0)
[2023-02-18 08:21] LABS: ALT 14 U/L (4-34); AST 19 U/L (14-36); African American GFR (CKD) >90 (>60 ml/min/1.73 sqM); Albumin/Globulin Ratio 1.2; Alkaline Phosphatase 70 U/L (38-126); Anion Gap 10 mmol/L; Blood Urea Nitrogen 8 mg/dL (7-17); Calcium 8.4 mg/dL (8.4-10.2); Carbon Dioxide 24 mmol/L (22-30); Chloride 100 mmol/L (98-107); Globulin 2.5 g/dL; Glucose 369 mg/dL (74-99); Non-African American GFR(CKD) >90 (>60 ml/min/1.73 sqM); Potassium 4.1 mmol/L (3.5-5.1); Sodium 134 mmol/L (137-145); Total Bilirubin 0.4 mg/dL (0.2-1.3); Total Protein 5.5 g/dL (6.3-8.2)
[2023-02-18] MEDS: VANCOMYCIN 1,250 MG in SODIUM CHLORIDE 0.9% 250 ML IVPB SCH ×5 (09:11→23:23)
[2023-02-18 12:01] LABS: Glucose,Whole Blood 354 mg/dL (70-110)
[2023-02-18] MEDS ORDERED: RX INFO: IV CONTRAST WAS GIVEN 1 EACH MISC MISCELLANE PRN (14:00)
--- NOTE | 2023-02-18 14:14 | P.CONS ---
History of Present Illness - Reason for Consult Consult date: 02/17/23 - History of Present Illness Patient is a 70-year-old female with a past medical history significant for diabetes mellitus hypertension hyperlipidemia patient did have a history of diabetic foot infection requiring amputation of the right fourth and fifth toe in the past patient presenting to the hospital for evaluation of left foot pain patient apparently noticed having a blister on the medial aspect of the left big toe that subsequently ruptured patient mention she cleaned it and afterwards she noticed to having increasing swelling and redness to the left big toe with associated pain describing to be more of a sharp moderate to severe intensity without any radiation and did not have any foul-smelling drainage with this after the patient presented to the hospital on arrival to the ER patient was afebrile and no fever has been recorded subsequently patient was not tachycardic hypotensive or hypoxic did have white count of 9.5 creatinine is 0.50, liver enzymes are normal patient did have x-ray of the toe no radiographic evidence of osteomyelitis patient was started on vancomycin infectious disease was consulted for further management of antibiotic therapy Past Medical History Past Medical History: CVA/TIA, Diabetes Mellitus, GERD/Reflux, Hyperlipidemia, Hypertension, Myocardial Infarction ([place]), Vascular Disorder Additional Past Medical History / Comment(s): 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 , unsteady gait., see [facility] Last Myocardial Infarction Date:: february 2017 History of Any Multi-Drug Resistant Organisms: None Reported Past Surgical History: Back Surgery, Cholecystectomy, Heart Catheterization With Stent, Orthopedic Surgery Additional Past Surgical History / Comment(s): Right 5th toe amputation, lumbar fusion, spinal cord stimulator in place but not working., left knee arthroscopy, EGD, PATRICIA, 3 cardiac stents, Aortoram, stent to left iliac artery. , stent right leg above the knee, right 4th toe amputation. Past Anesthesia/Blood Transfusion Reactions: No Reported Reaction Additional Past Anesthesia/Blood Transfusion Reaction / Comm: . Date of Last Stent Placement:: 12/14/2021 Past Psychological History: Anxiety Additional Psychological History / Comment(s): . Smoking Status: Current every day smoker Past Alcohol Use History: None Reported Additional Past Alcohol Use History / Comment(s): Started smoking in 1989, smokes 1/2 pack / day. Past Drug Use History: None Reported - Past Family History Father Family Medical History: Cancer, Liver Disease Additional Family Medical History / Comment(s): Idiopathic cirrhosis of liver, Liver Cancer. Mother Family Medical History: Coronary Artery Disease (CAD), Myocardial Infarction ([place]) Additional Family Medical History / Comment(s): Multiple stents. Mother at the age of 77 or 78 from [place]. Medications and Allergies Home Medications Medication Instructions Recorded Confirmed Type Atorvastatin [Lipitor] 80 mg PO HS 06/26/16 02/17/23 History Aspirin 81 mg PO DAILY 10/08/17 02/17/23 History Clopidogrel [Plavix] 75 mg PO DAILY 30 Days #30 tab 01/05/21 02/17/23 Rx Insulin NPH Hum/Reg Insulin Hm See Protocol SQ ACHS 02/17/23 02/17/23 History [Novolin 70-30 100 Unit/ml Vial] Allergies Allergy/AdvReac Type Severity Reaction Status Date / Time gluten AdvReac Nausea & Verified 02/17/23 10:57 Vomiting & Diarrhea, bloating Physical Exam Vitals: Vital Signs Temp Pulse Pulse Resp BP BP Pulse Ox 02/17/23 07:38 97.9 F 78 18 130/84 93 L 02/17/23 04:28 97.8 F 83 20 117/72 95 02/17/23 04:00 76 18 103/80 95 02/17/23 02:00 95 18 134/83 97 02/17/23 01:00 94 18 141/83 95 02/17/23 00:00 90 18 101/66 97 02/16/23 23:00 94 18 101/66 99 02/16/23 22:24 98.6 F 100 18 111/92 99 02/16/23 21:02 98.1 F 104 H 20 139/82 98 Intake and Output 02/16/23 02/17/23 02/17/23 22:59 06:59 14:59 Intake Total 225 Output Total 50 Balance 225 -50 Intake: Intake, IV Titration 225 Amount Sodium Chloride 0.9% 1, 225 000 ml @ 75 mls/hr IV . [id number] [facility] Rx#:[id number] Output: Gastric Drainage 50 Other: Voiding Method Toilet Weight 65.317 kg 65.317 kg Results CBC & Chem 7: 02/18/23 07:29 02/18/23 07:29 Labs: Abnormal Lab Results - Last 24 Hours (Table) 02/16/23 02/16/23 02/16/23 Range/Units 22:01 22:01 22:01 Hct 46.1 H (34.0-46.0) % Chloride 97 L (98-107) mmol/L Creatinine 0.50 L (0.52-1.04) mg/dL Glucose 334 H (74-99) mg/dL POC Glucose (mg/dL) (70-110) mg/dL Plasma Lactic Acid Yousif 3.0 H* (0.7-2.0) mmol/L 02/17/23 02/17/23 Range/Units 04:32 07:36 Hct (34.0-46.0) % Chloride (98-107) mmol/L Creatinine (0.52-1.04) mg/dL Glucose (74-99) mg/dL POC Glucose (mg/dL) 196 H 167 H (70-110) mg/dL Plasma Lactic Acid Yousif (0.7-2.0) mmol/L Assessment and Plan Plan: 1patient with left big toe diabetic foot infection Dobbins grade 4 in this patient who did have a necrosis of the left big toe especially to the medial aspect of the second cellulitis we will need to cover for the polymicrobial masha usually associated with diabetic foot infection 2await vascular surgery evaluation for possible debridement and deep culture. 3continue with the vancomycin while watching kidney function closely we will add Unasyn. We will follow on clinical condition and cultures to further adjust medication if needed Thank you for this consultation we will follow the patient along with you Dictation was produced using [employer] dictation software. please excuse any grammatical, word or spelling errors. Time with Patient: Greater than 30
--- NOTE | 2023-02-18 14:18 | P.PN ---
Subjective Progress Note Date: 02/18/23 Principal diagnosis: Reason for follow-up is left big toe diabetic foot infection Patient is a 70-year-old female with a past medical history significant for diabetes mellitus hypertension hyperlipidemia patient did have a history of diabetic foot infection requiring amputation of the right fourth and fifth toe in the past presenting to the hospital with worsening blackish discoloration on the medial aspect of the left big toe with surrounding cellulitis. On today's evaluation that is 02/18/2023 patient denies having any fever or any chills patient is breathing comfortably on room air no chest pain shortness of breath or cough no abdominal pain and denies any worsening pain to the left big toe. Patient did have a white count of 6.2 creatinine 0.36 blood cultures are pending Objective - Vital Signs Vital signs: Vital Signs Temp 98.2 F 02/18/23 07:57 Pulse 75 02/18/23 07:57 Resp 16 02/18/23 07:57 BP 160/92 02/18/23 07:57 Pulse Ox 93 L 02/18/23 07:57 FiO2 Intake & Output 02/17/23 02/18/23 02/18/23 18:59 06:59 18:59 Intake Total 900 350 Output Total 50 Balance 850 350 Intake: Intake, IV Titration 900 Amount Sodium Chloride 0.9% 1, 900 000 ml @ 75 mls/hr IV . [id number] [facility] Rx#:[id number] Oral 350 Output: Gastric Drainage 50 Other: Voiding Method Toilet Toilet # Voids 1 - Exam GENERAL DESCRIPTION: Middle-aged female elise in bed in no distress RESPIRATORY SYSTEM: Unlabored breathing , decreased breath sounds at bases HEART: S1 S2 regular rate and rhythm , ABDOMEN: Soft , no tenderness EXTREMITIES: Left big toe is dressed - Labs CBC & Chem 7: 02/18/23 07:29 02/18/23 07:29 Labs: Abnormal Lab Results - Last 24 Hours (Table) 02/17/23 02/17/23 02/17/23 Range/Units 12:32 17:14 19:24 Sodium (137-145) mmol/L Creatinine (0.52-1.04) mg/dL Glucose (74-99) mg/dL POC Glucose (mg/dL) 288 H 290 H 352 H (70-110) mg/dL Total Protein (6.3-8.2) g/dL Albumin (3.5-5.0) g/dL 02/18/23 02/18/23 02/18/23 Range/Units 06:55 07:29 11:58 Sodium 134 L (137-145) mmol/L Creatinine 0.36 L (0.52-1.04) mg/dL Glucose 369 H (74-99) mg/dL POC Glucose (mg/dL) 415 H 354 H (70-110) mg/dL Total Protein 5.5 L (6.3-8.2) g/dL Albumin 3.0 L (3.5-5.0) g/dL Assessment and Plan (1) Diabetic foot infection Current Visit: Yes Status: Acute Code(s): E11.628 - TYPE 2 DIABETES MELLITUS WITH OTHER SKIN COMPLICATIONS; L08.9 - LOCAL INFECTION OF THE SKIN AND SUBCUTANEOUS TISSUE, UNSP SNOMED Code(s): 750395377 Plan: 1patient with left big toe diabetic foot infection Dobbins grade 4 in this patient who did have a necrosis of the left big toe especially to the medial aspect of the second cellulitis we will need to cover for the polymicrobial masha usually associated with diabetic foot infection 2patient has been evaluated vascular surgery recommending vascular workup for arterial insufficiency and local treatment with Medihoney 3patient to continue with the vancomycin while watching kidney function closely along with Unasyn and monitor clinical course closely. Dictation was produced using [employer] dictation software. please excuse any grammatical, word or spelling errors. Time with Patient: Less than 30
[2023-02-18] MEDS: HYDROmorphone 1 MG/ML 1 ML SYRINGE IVP PRN (14:29)
--- NOTE | 2023-02-18 14:44 | P.PN ---
Subjective Progress Note Date: 02/18/23 patient is a 62-year-old lady with past medical history significant for hypertension, diabetes mellitus, hyperlipidemia who presented to The ER for left foot pain. Patient stated that she was all right one week back when she had a blister on her left big toe which popped, following that she noticed that there was a black wound that appeared. Patient started noticing redness around the left big toe that started progressing up her foot. Patient was also having pain in her left foot. No complain of any fever or chills. Patient denied any nausea, vomiting abdominal pain. Because of this persistent left foot pain, patient came to the ER Initial lab work done in the ER showed WBC 9.5, hemoglobin 16, platelet count 260, sodium 139, potassium 4.2, BUN 10, creatinine 0.50, glucose 334, lactate 3 X-ray left toe showed no evidence of osteomyelitis Patient admitted to internal medicine service 02/18. Patient seen and examined. Denies any chest pain or shortness of breath. Patient has been afebrile. Vital signs stable REVIEW OF SYSTEMS: CONSTITUTIONAL: No fever, no malaise,. CARDIOVASCULAR: No chest pain, no palpitations, no syncope. PULMONARY: No shortness of breath, no cough, GASTROINTESTINAL: No diarrhea, no nausea, no vomiting, no abdominal pain. NEUROLOGICAL: No headaches, no weakness, PHYSICAL EXAMINATION: GENERAL: The patient is alert and oriented x3, not in any acute distress. Well developed, well nourished. HEENT: Pupils are round and equally reacting to light. EOMI. No scleral icterus. No conjunctival pallor. Normocephalic, atraumatic. No pharyngeal erythema. No thyromegaly. CARDIOVASCULAR: S1 and S2 present. No murmurs, rubs, or gallops. PULMONARY: Chest is clear to auscultation, no wheezing or crackles. ABDOMEN: Soft, nontender, nondistended, normoactive bowel sounds. No palpable organomegaly. MUSCULOSKELETAL: Left foot ulcer seen EXTREMITIES: No cyanosis, clubbing, or pedal edema. NEUROLOGICAL: Gross neurological examination did not reveal any focal deficits. SKIN: No rashes. Assessment and plan Left foot cellulitis Left foot diabetic ulcer Hypertension Insulin-dependent diabetes mellitus Hyperlipidemia Monitor vital signs Monitor CBC Monitor CMP Continue telemetry monitoring follow-up on blood cultures Continue wound care Continue IV vancomycin and vancomycin Vascular surgery following ID following Monitor blood sugar levels, continue home insulin regimen Regards to hyperlipidemia continue Lipitor Labs and medication were reviewed.. Continue same treatment. Continue with symptomatic treatment. Resume home medication. Monitor labs and vitals. DVT and GI prophylaxis. Further recommendations as per clinical course of the patient Dictation was produced using [employer] dictation software. please excuse any grammatical, word or spelling errors. Objective - Vital Signs Vital signs: Vital Signs Temp 98.2 F 02/18/23 07:57 Pulse 75 02/18/23 07:57 Resp 16 02/18/23 07:57 BP 160/92 02/18/23 07:57 Pulse Ox 93 L 02/18/23 07:57 FiO2 Intake & Output 02/17/23 02/18/23 02/18/23 18:59 06:59 18:59 Intake Total 900 350 Output Total 50 Balance 850 350 Intake: Intake, IV Titration 900 Amount Sodium Chloride 0.9% 1, 900 000 ml @ 75 mls/hr IV . [id number] [facility] Rx#:[id number] Oral 350 Output: Gastric Drainage 50 Other: Voiding Method Toilet Toilet # Voids 1 - Labs CBC & Chem 7: 02/18/23 07:29 02/18/23 07:29 Labs: Abnormal Lab Results - Last 24 Hours (Table) 02/17/23 02/17/23 02/17/23 Range/Units 12:32 17:14 19:24 Sodium (137-145) mmol/L Creatinine (0.52-1.04) mg/dL Glucose (74-99) mg/dL POC Glucose (mg/dL) 288 H 290 H 352 H (70-110) mg/dL Total Protein (6.3-8.2) g/dL Albumin (3.5-5.0) g/dL 02/18/23 02/18/23 Range/Units 06:55 07:29 Sodium 134 L (137-145) mmol/L Creatinine 0.36 L (0.52-1.04) mg/dL Glucose 369 H (74-99) mg/dL POC Glucose (mg/dL) 415 H (70-110) mg/dL Total Protein 5.5 L (6.3-8.2) g/dL Albumin 3.0 L (3.5-5.0) g/dL
--- NOTE | 2023-02-18 16:49 | CT ---
EXAMINATION TYPE: CT angio lower extremity LT CT DLP: 1246.6 mGycm, Automated exposure control for dose reduction was used. DATE OF EXAM: 02/18/2023 4:39 PM COMPARISON: 07/01/2019, 08/04/2019, 12/26/2020. CLINICAL INDICATION:Female, 62 years old with history of pad, PAD, left foot diabetic wound TECHNIQUE: Multiple thin slice sub-millimeter images were obtained after administration of contrast. 3-D reconstructed images and maximum intensity projection images were obtained. CT angio lower extre mity LT CT Contrast: Contrast used:100 mL of Isovue 300 with IV Contrast, Oral contrast used: None FINDINGS: CTA : There is severe atherosclerosis with narrowing of the common iliac artery and the left with up to 75-90% stenosis series 4 image 10. Iliac arteries are patent. There is bilateral external iliac ar barbara stents which are patent. The visualized portions of the right proximal superficial femoral arter y with stent graft is occluded series 4 image 80. The left common iliac artery is a diminutive appear ance. The left superficial femoral artery becomes occluded just past its origin series 4 image 102 wh ich extends to the pelvis artery where there is reconstitution. The anterior and posterior tibial art eries appear patent but are diminutive and size. Both anterior posterior tibial arteries cross the an kle. No evidence of fracture or dislocation. The soft tissues are grossly unremarkable. Degeneration esquivel es of the joints of the lower extremity with joint space narrowing and osteophyte formation. Partiall y visualized fixation hardware in the lower spine appears intact. IMPRESSION Left: * High-grade stenosis of the left common iliac artery 75-90%. * Occlusion of the superficial femoral artery extending from its origin to the popliteal artery area * Pain anterior and posterior tibial arteries which cross the ankle. * Patent external iliac artery stent graft. Right: * Occlusion of the most superior anterior portion of the superficial femoral artery stent graft. * Patent external iliac artery stent graft.
[2023-02-18 17:09] LABS: Glucose,Whole Blood 397 mg/dL (70-110)
[2023-02-18] MEDS ORDERED: INSULIN DETEMIR (LEVEMIR) 100 UNIT/ML SYR SQ SCH ×2 (19:00→21:00)
[2023-02-18 20:05] LABS: Glucose,Whole Blood 420 mg/dL (70-110)
[2023-02-18] MEDS: ATORVASTATIN 80 MG TAB PO SCH (20:37)
[2023-02-19] MEDS: HYDROmorphone 1 MG/ML 1 ML SYRINGE IVP PRN ×3 (00:43→17:44)
[2023-02-19] MEDS: AMPICILLIN-SULBACTAM 3 GM in SODIUM CHLORIDE 0.9% 100 ML IVPB SCH ×4 (06:10→23:39)
[2023-02-19 07:14] LABS: African American GFR (CKD) >90 (>60 ml/min/1.73 sqM); Non-African American GFR(CKD) >90 (>60 ml/min/1.73 sqM)
[2023-02-19 07:57] LABS: Glucose,Whole Blood 332 mg/dL (70-110)
[2023-02-19] MEDS: CLOPIDOGREL 75 MG TAB PO SCH (08:57)
[2023-02-19] MEDS: ASPIRIN 81 MG PO SCH (08:57)
[2023-02-19] MEDS: INSULIN ASPART (NovoLOG) 100 UNIT/ML VIAL SQ SCH ×4 (08:57→20:30)
[2023-02-19] MEDS: SODIUM CHLORIDE 0.9% 1,000 ML IV SCH (08:58)
[2023-02-19] MEDS: VANCOMYCIN 1,250 MG in SODIUM CHLORIDE 0.9% 250 ML IVPB SCH ×3 (09:02→23:39)
[2023-02-19 11:44] LABS: Glucose,Whole Blood 372 mg/dL (70-110)
--- NOTE | 2023-02-19 12:04 | P.PN ---
Subjective Progress Note Date: 02/19/23 patient is a 62-year-old lady with past medical history significant for hypertension, diabetes mellitus, hyperlipidemia who presented to The ER for left foot pain. Patient stated that she was all right one week back when she had a blister on her left big toe which popped, following that she noticed that there was a black wound that appeared. Patient started noticing redness around the left big toe that started progressing up her foot. Patient was also having pain in her left foot. No complain of any fever or chills. Patient denied any nausea, vomiting abdominal pain. Because of this persistent left foot pain, patient came to the ER Initial lab work done in the ER showed WBC 9.5, hemoglobin 16, platelet count 260, sodium 139, potassium 4.2, BUN 10, creatinine 0.50, glucose 334, lactate 3 X-ray left toe showed no evidence of osteomyelitis Patient admitted to internal medicine service 02/18. Patient seen and examined. Denies any chest pain or shortness of breath. Patient has been afebrile. Vital signs stable 02/19/23. Patient seen and examined. Denies any pain in her feet. Denies any malaise or lethargy. Vital signs stable REVIEW OF SYSTEMS: CONSTITUTIONAL: No fever, no malaise,. CARDIOVASCULAR: No chest pain, no palpitations, no syncope. PULMONARY: No shortness of breath, no cough, GASTROINTESTINAL: No diarrhea, no nausea, no vomiting, no abdominal pain. NEUROLOGICAL: No headaches, no weakness, PHYSICAL EXAMINATION: GENERAL: The patient is alert and oriented x3, not in any acute distress. Well developed, well nourished. HEENT: Pupils are round and equally reacting to light. EOMI. No scleral icterus. No conjunctival pallor. Normocephalic, atraumatic. No pharyngeal erythema. No thyromegaly. CARDIOVASCULAR: S1 and S2 present. No murmurs, rubs, or gallops. PULMONARY: Chest is clear to auscultation, no wheezing or crackles. ABDOMEN: Soft, nontender, nondistended, normoactive bowel sounds. No palpable organomegaly. MUSCULOSKELETAL: Left foot ulcer seen EXTREMITIES: No cyanosis, clubbing, or pedal edema. NEUROLOGICAL: Gross neurological examination did not reveal any focal deficits. SKIN: No rashes. Assessment and plan Left foot cellulitis Left foot diabetic ulcer Hypertension Insulin-dependent diabetes mellitus Hyperlipidemia Monitor vital signs Monitor CBC Monitor CMP Continue telemetry monitoring follow-up on blood cultures Continue wound care Continue IV vancomycin and unasyn Vascular surgery following ID following Monitor blood sugar levels, continue home insulin regimen Regards to hyperlipidemia continue Lipitor Labs and medication were reviewed.. Continue same treatment. Continue with symptomatic treatment. Resume home medication. Monitor labs and vitals. DVT and GI prophylaxis. Further recommendations as per clinical course of the patient Dictation was produced using [employer] dictation software. please excuse any grammatical, word or spelling errors. Objective - Vital Signs Vital signs: Vital Signs Temp 98.1 F 02/19/23 07:53 Pulse 65 02/19/23 07:53 Resp 16 02/19/23 07:53 BP 132/72 02/19/23 07:53 Pulse Ox 96 02/19/23 07:53 FiO2 Intake & Output 02/18/23 02/19/23 02/19/23 18:59 06:59 18:59 Intake Total 1380 Balance 1380 Intake: Intake, IV Titration 900 Amount Sodium Chloride 0.9% 1, 900 000 ml @ 75 mls/hr IV . [id number] [facility] Rx#:[id number] Oral 480 Other: Voiding Method Toilet # Voids 1 - Labs CBC & Chem 7: 02/18/23 07:29 02/19/23 06:17 Labs: Abnormal Lab Results - Last 24 Hours (Table) 02/18/23 02/18/23 02/18/23 Range/Units 11:58 17:08 20:03 Creatinine (0.52-1.04) mg/dL POC Glucose (mg/dL) 354 H 397 H 420 H (70-110) mg/dL 02/19/23 02/19/23 Range/Units 06:17 07:54 Creatinine 0.42 L (0.52-1.04) mg/dL POC Glucose (mg/dL) 332 H (70-110) mg/dL Microbiology - Last 24 Hours (Table) 02/17/23 00:20 Blood Culture - Preliminary Blood 02/17/23 00:35 Blood Culture - Preliminary Blood
--- NOTE | 2023-02-19 15:30 | P.PN ---
Subjective Progress Note Date: 02/19/23 Progress note Patient is seen and examined at bedside the same. Patient reports that her left leg pain is better since the time of admission. She is on IV antibiotics. HISTORY OF PRESENTING ILLNESS 62-year-old female presents to the hospital because of worsening pain and discom fort along with blister formation on her right foot to along with black eschar formation. Patient has a prior history of PAD and CAD and follows up with Dr. Cruz. At this time patient is doing well from cardiac vessel standpoint. She denies having any active chest pain chest pressure or shortness of breath. She denies any palpitations lightheadedness or dizziness. Her most of the complaints are because of a nonhealing wound on her left foot and possible concerns of gangrene formation. Cardiology was consulted to make sure there was concerns of critical limb ischemia. REVIEW OF SYSTEMS 14 point review of system is negative except what is mentioned above in HPI. PHYSICAL EXAMINATION Vital signs reviewed. Head: Normocephalic. Eyes: Sclerae nonicteric. Lungs: Clear to auscultation. Heart: Regular rate and rhythm, S1-S2, no S3, no murmur or rub. Abdomen: Soft nontender, positive bowel sounds no organomegaly. Extremities: No edema, redness and Scab formation noticed on the 25th toe. 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 Last intervention November 2021 with balloon angioplasty of left SFA left peroneal. History of CAD status post PCI 3 CT left lower extremity was performed which showed occluded left SFA which gets reconstituted and then has 2 vessel runoff to the ankle.. Right superficial femoral stent occluded, severe left common eyelid disease, bilateral external iliac stents patent PLAN No concern of critical limb ischemia as there is 2 vessel runoff as per CT No evidence of critical limb ischemia with no signs of pain, paresthesias, pallor, poikilothermia. Resume aspirin, Plavix, atorvastatin 80 mg. Start Cilostazol 50mg BID due to resting leg pain Start Protonix 40mg AC breakfast monitor platlets, hb and bleeding on regular bases o/p Agree with IV antibiotics as per infectious disease recommendations. Try to obtain pulses using the venous Doppler. Outpatient PAD workup with Dr Lock Objective - Vital Signs Vital signs: Vital Signs Temp 98.0 F 02/19/23 11:40 Pulse 73 02/19/23 11:40 Resp 16 02/19/23 11:40 BP 153/84 02/19/23 11:40 Pulse Ox 96 02/19/23 11:40 FiO2 Intake & Output 02/18/23 02/19/23 02/19/23 18:59 06:59 18:59 Intake Total 1380 Balance 1380 Intake: Intake, IV Titration 900 Amount Sodium Chloride 0.9% 1, 900 000 ml @ 75 mls/hr IV . [id number] [facility] Rx#:[id number] Oral 480 Other: Voiding Method Toilet # Voids 1 - Labs CBC & Chem 7: 02/18/23 07:29 02/19/23 06:17 Labs: Abnormal Lab Results - Last 24 Hours (Table) 02/18/23 02/18/23 02/19/23 Range/Units 17:08 20:03 06:17 Creatinine 0.42 L (0.52-1.04) mg/dL POC Glucose (mg/dL) 397 H 420 H (70-110) mg/dL 02/19/23 02/19/23 Range/Units 07:54 11:42 Creatinine (0.52-1.04) mg/dL POC Glucose (mg/dL) 332 H 372 H (70-110) mg/dL Microbiology - Last 24 Hours (Table) 02/17/23 00:20 Blood Culture - Preliminary Blood 02/17/23 00:35 Blood Culture - Preliminary Blood
--- NOTE | 2023-02-19 16:04 | P.PN ---
Subjective Progress Note Date: 02/19/23 Principal diagnosis: Reason for follow-up is left big toe diabetic foot infection Patient is a 70-year-old female with a past medical history significant for diabetes mellitus hypertension hyperlipidemia patient did have a history of diabetic foot infection requiring amputation of the right fourth and fifth toe in the past presenting to the hospital with worsening blackish discoloration on the medial aspect of the left big toe with surrounding cellulitis. On today's evaluation that is 02/19/2023, the patient remains to be afebrile, the patient is breathing comfortably on room air without need for supplemental oxygen patient denies having any chest pain shortness of breath or cough, the patient denies any nausea no vomiting no abdominal pain and no diarrhea, patient denies any worsening pain to the left great toe Patient did have white count 6.2 as of yesterday and creatinine 0.42 blood culture so far negative Objective - Vital Signs Vital signs: Vital Signs Temp 98.0 F 02/19/23 11:40 Pulse 73 02/19/23 11:40 Resp 16 02/19/23 11:40 BP 153/84 02/19/23 11:40 Pulse Ox 96 02/19/23 11:40 FiO2 Intake & Output 02/18/23 02/19/23 02/19/23 18:59 06:59 18:59 Intake Total 1380 Balance 1380 Intake: Intake, IV Titration 900 Amount Sodium Chloride 0.9% 1, 900 000 ml @ 75 mls/hr IV . [id number] [facility] Rx#:[id number] Oral 480 Other: Voiding Method Toilet # Voids 1 - Exam GENERAL DESCRIPTION: Middle-aged female elise in bed in no distress RESPIRATORY SYSTEM: Unlabored breathing , decreased breath sounds at bases HEART: S1 S2 regular rate and rhythm , ABDOMEN: Soft , no tenderness EXTREMITIES: Left big toe is dressed - Labs CBC & Chem 7: 02/18/23 07:29 02/19/23 06:17 Labs: Abnormal Lab Results - Last 24 Hours (Table) 02/18/23 02/18/23 02/19/23 Range/Units 17:08 20:03 06:17 Creatinine 0.42 L (0.52-1.04) mg/dL POC Glucose (mg/dL) 397 H 420 H (70-110) mg/dL 02/19/23 02/19/23 Range/Units 07:54 11:42 Creatinine (0.52-1.04) mg/dL POC Glucose (mg/dL) 332 H 372 H (70-110) mg/dL Microbiology - Last 24 Hours (Table) 02/17/23 00:20 Blood Culture - Preliminary Blood 02/17/23 00:35 Blood Culture - Preliminary Blood Assessment and Plan (1) Diabetic foot infection Current Visit: Yes Status: Acute Code(s): E11.628 - TYPE 2 DIABETES MELLITUS WITH OTHER SKIN COMPLICATIONS; L08.9 - LOCAL INFECTION OF THE SKIN AND SUBCUTANEOUS TISSUE, UNSP SNOMED Code(s): 980074384 Plan: 1patient with left big toe diabetic foot infection Dobbins grade 4 in this patient who did have a necrosis of the left big toe especially to the medial aspect of the second cellulitis we will need to cover for the polymicrobial masha usually associated with diabetic foot infection 2patient has been evaluated vascular surgery recommending vascular workup for arterial insufficiency and local treatment with Medihoney 3Patient to continue with the vancomycin creatinine has been normal awaiting surgical debridement and deep cultures question concern answered Dictation was produced using [employer] software. please excuse any grammatical, word or spelling errors.
[2023-02-19] MEDS: DOCUSATE 100 MG CAP PO PRN (16:45)
[2023-02-19] MEDS: polyethylene glycoL 3350 17 GM POWD.PACK PO SCH (17:02)
[2023-02-19 17:12] LABS: Glucose,Whole Blood 368 mg/dL (70-110)
[2023-02-19 20:18] LABS: Glucose,Whole Blood 306 mg/dL (70-110)
[2023-02-19] MEDS: ATORVASTATIN 80 MG TAB PO SCH (20:30)
[2023-02-19] MEDS: ALPRAZolam 0.25 MG TAB PO PRN (21:24)
[2023-02-19] MEDS: INSULIN DETEMIR (LEVEMIR) 100 UNIT/ML SYR SQ SCH (21:33)
[2023-02-20 01:49] LABS: Glucose,Whole Blood 351 mg/dL (70-110)
[2023-02-20] MEDS: AMPICILLIN-SULBACTAM 3 GM in SODIUM CHLORIDE 0.9% 100 ML IVPB SCH ×4 (05:11→23:37)
[2023-02-20 06:42] LABS: ALT 15 U/L (4-34); AST 19 U/L (14-36); African American GFR (CKD) >90 (>60 ml/min/1.73 sqM); Albumin 3.3 g/dL (3.5-5.0); Albumin/Globulin Ratio 1.3; Alkaline Phosphatase 69 U/L (38-126); Anion Gap 11 mmol/L; Blood Urea Nitrogen 8 mg/dL (7-17); Calcium 8.5 mg/dL (8.4-10.2); Carbon Dioxide 26 mmol/L (22-30); Chloride 98 mmol/L (98-107); Globulin 2.6 g/dL; Glucose 324 mg/dL (74-99); Non-African American GFR(CKD) >90 (>60 ml/min/1.73 sqM); Sodium 135 mmol/L (137-145); Total Bilirubin 0.6 mg/dL (0.2-1.3); Total Protein 5.9 g/dL (6.3-8.2)
[2023-02-20] MEDS ORDERED: VANCOMYCIN TROUGH DUE 1 EACH MISC MISCELLANE ONE (07:00)
[2023-02-20 07:23] LABS: Glucose,Whole Blood 344 mg/dL (70-110)
[2023-02-20] MEDS: INSULIN ASPART (NovoLOG) 100 UNIT/ML VIAL SQ SCH ×4 (08:29→20:45)
[2023-02-20] MEDS: ASPIRIN 81 MG PO SCH (08:29)
[2023-02-20] MEDS: CLOPIDOGREL 75 MG TAB PO SCH (08:29)
[2023-02-20] MEDS: INSULIN DETEMIR (LEVEMIR) 100 UNIT/ML SYR SQ SCH ×2 (08:29→20:42)
[2023-02-20] MEDS: cilostazoL 100 MG TAB PO SCH ×2 (08:30→20:42)
[2023-02-20] MEDS: polyethylene glycoL 3350 17 GM POWD.PACK PO SCH (08:32)
[2023-02-20 08:47] LABS: Basophils # (A) 0.04 X 10*3/uL (0.00-0.10); Basophils % (A) 0.6 %; Eosinophils # (A) 0.16 X 10*3/uL (0.04-0.35); Eosinophils % (A) 2.4 %; HCT 37.9 % (37.2-46.3); HGB 13.3 g/dL (12.0-15.0); Lymphocytes # (A) 1.68 X 10*3/uL (0.90-5.00); Lymphocytes % (A) 25.7 %; MCH 29.3 pg (27.0-32.0); MCHC 35.1 g/dL (32.0-37.0); MCV 83.5 FL (80.0-97.0); Mean Platelet Volume 10.3 FL (9.5-12.2); Monocytes # (A) 0.49 X 10*3/uL (0.20-1.00); Monocytes % (A) 7.5 %; NRBC Per 100 WBC 0 X 10*3/uL (0.00-0.01); Neutrophils # (A) 4.13 X 10*3/uL (1.80-7.70); Neutrophils % (A) 63.2 %; Platelet Count 187 X 10*3/uL (140-440); RBC 4.54 X 10*6/uL (4.10-5.20); RDW 13.1 % (11.5-14.5); WBC 6.54 X 10*3/uL (4.50-10.00)
[2023-02-20] MEDS ORDERED: ONDANSETRON 4 MG/2 ML VIAL IVP PRN (08:53)
[2023-02-20] MEDS ORDERED: polyethylene glycoL 3350 17 GM POWD.PACK PO SCH (09:00)
[2023-02-20] MEDS: VANCOMYCIN 1,250 MG in SODIUM CHLORIDE 0.9% 250 ML IVPB SCH ×2 (09:13→10:37)
[2023-02-20] MEDS: amLODIPine 5 MG TAB PO SCH (09:14)
[2023-02-20] MEDS: VANCOMYCIN 1,500 MG in SODIUM CHLORIDE 0.9% 500 ML 500 ML IVPB SCH ×2 (09:36→17:44)
--- NOTE | 2023-02-20 10:07 | PN ---
PROGRESS NOTE A 62-year-old female patient came with some discomfort and pain in left leg. The patient has a mild redness of the left big toe and there is a dry scab noted. We will be using Medihoney gel. CTA showed the patient has a stent in the left external iliac artery. There was about 75% to 90% of the left common femoral artery and also the patient has a left SFA occlusion. The patient was under care of Dr. Lock. I will discuss with Dr. Lock. At the meantime, we will continue with local wound care and IV antibiotic. MMREMBERTOL / RODOLFON: [id number] /
[2023-02-20 11:23] LABS: Glucose,Whole Blood 291 mg/dL (70-110)
[2023-02-20] MEDS: HYDROmorphone 1 MG/ML 1 ML SYRINGE IVP PRN ×3 (11:50→22:28)
--- NOTE | 2023-02-20 14:28 | P.PN ---
Subjective Progress Note Date: 02/20/23 Principal diagnosis: Reason for follow-up is left big toe diabetic foot infection Patient is a 70-year-old female with a past medical history significant for diabetes mellitus hypertension hyperlipidemia patient did have a history of diabetic foot infection requiring amputation of the right fourth and fifth toe in the past presenting to the hospital with worsening blackish discoloration on the medial aspect of the left big toe with surrounding cellulitis. On today's evaluation that is 02/20/2023, the patient remains to be afebrile the patient is breathing comfortably on room air, the patient denies any chest pain shortness of breath denies any cough or sputum production no nausea noted no abdominal pain has been complaining of discomfort to the left big toe but there is no drainage Patient white count is 6.54, creatinine 0.38 blood culture so far negative Objective - Vital Signs Vital signs: Vital Signs Temp 98.5 F 02/20/23 11:23 Pulse 69 02/20/23 11:23 Resp 17 02/20/23 11:23 BP 109/65 02/20/23 11:23 Pulse Ox 92 L 02/20/23 11:23 FiO2 Intake & Output 02/19/23 02/20/23 02/20/23 18:59 06:59 18:59 Intake Total 1530 Balance 1530 Intake: Intake, IV Titration 1050 Amount Ampicillin-Sulbactam 3 gm 200 In Sodium Chloride 0.9% 100 ml @ 200 mls/hr IVPB Q6HR [facility] Rx#:[id number] Sodium Chloride 0.9% 1, 600 000 ml @ 75 mls/hr IV . [id number] [facility] Rx#:[id number] Vancomycin 1,250 mg In 250 Sodium Chloride 0.9% 250 ml @ 125 mls/hr IVPB Q8HR [facility] Rx#:[id number] Oral 480 Other: Voiding Method Toilet # Voids 1 - Exam GENERAL DESCRIPTION: Middle-aged female elise in bed in no distress RESPIRATORY SYSTEM: Unlabored breathing , decreased breath sounds at bases HEART: S1 S2 regular rate and rhythm , ABDOMEN: Soft , no tenderness EXTREMITIES: Left big toe is dressed - Labs CBC & Chem 7: 02/20/23 06:08 02/20/23 06:08 Labs: Abnormal Lab Results - Last 24 Hours (Table) 02/19/23 02/19/23 02/20/23 Range/Units 17:05 20:16 01:48 Sodium (137-145) mmol/L Creatinine (0.52-1.04) mg/dL Glucose (74-99) mg/dL POC Glucose (mg/dL) 368 H 306 H 351 H (70-110) mg/dL Total Protein (6.3-8.2) g/dL Albumin (3.5-5.0) g/dL 02/20/23 02/20/23 02/20/23 Range/Units 06:08 07:22 11:21 Sodium 135 L (137-145) mmol/L Creatinine 0.38 L (0.52-1.04) mg/dL Glucose 324 H (74-99) mg/dL POC Glucose (mg/dL) 344 H 291 H (70-110) mg/dL Total Protein 5.9 L (6.3-8.2) g/dL Albumin 3.3 L (3.5-5.0) g/dL Microbiology - Last 24 Hours (Table) 02/17/23 00:20 Blood Culture - Preliminary Blood 02/17/23 00:35 Blood Culture - Preliminary Blood Assessment and Plan (1) Diabetic foot infection Current Visit: Yes Status: Acute Code(s): E11.628 - TYPE 2 DIABETES MELLITUS WITH OTHER SKIN COMPLICATIONS; L08.9 - LOCAL INFECTION OF THE SKIN AND SUBCUTANEOUS TISSUE, UNSP SNOMED Code(s): 712848730 Plan: 1patient with left big toe diabetic foot infection Dobbins grade 4 in this patient who did have a necrosis of the left big toe especially to the medial aspect of the second cellulitis we will need to cover for the polymicrobial masha usually associated with diabetic foot infection 2patient has been evaluated vascular surgery recommending vascular workup for arterial insufficiency and local treatment with Medihoney 3patient is currently covered with the vancomycin pharmacy to dose creatinine is normal waiting for surgical debridement and deep cultures multiple questions concern answered Dictation was produced using [employer] dictation software. please excuse any grammatical, word or spelling errors.
[2023-02-20 17:07] VITALS: BMI 21.9
[2023-02-20 17:44] LABS: Glucose,Whole Blood 387 mg/dL (70-110)
[2023-02-20 20:20] LABS: Glucose,Whole Blood 273 mg/dL (70-110)
[2023-02-20] MEDS: ATORVASTATIN 80 MG TAB PO SCH (20:42)
--- NOTE | 2023-02-20 22:15 | P.PN ---
Subjective Progress Note Date: 02/20/23 She is afebrile, denies chest pain, shortness of breath, malaise. She continues on vancomycin per ID with cultures negative. Objective - Vital Signs Vital signs: Vital Signs Temp 98.3 F 02/20/23 20:00 Pulse 88 02/20/23 20:00 Resp 16 02/20/23 20:00 BP 118/79 02/20/23 20:00 Pulse Ox 96 02/20/23 20:00 FiO2 Intake & Output 02/20/23 02/20/23 02/21/23 06:59 18:59 06:59 Intake Total 1530 360 Balance 1530 360 Weight 65.317 kg Intake: Intake, IV Titration 1050 Amount Ampicillin-Sulbactam 3 gm 200 In Sodium Chloride 0.9% 100 ml @ 200 mls/hr IVPB Q6HR [facility] Rx#:[id number] Sodium Chloride 0.9% 1, 600 000 ml @ 75 mls/hr IV . [id number] [facility] Rx#:[id number] Vancomycin 1,250 mg In 250 Sodium Chloride 0.9% 250 ml @ 125 mls/hr IVPB Q8HR [facility] Rx#:[id number] Oral 480 360 Other: Voiding Method Toilet # Voids 1 - Exam Gen: well developed female in NAD CV: RRR, no murmur lungs: Clear bilaterally Ext: L great toe wrapped in gauze - Labs CBC & Chem 7: 02/20/23 06:08 02/20/23 06:08 Labs: Abnormal Lab Results - Last 24 Hours (Table) 02/20/23 02/20/23 02/20/23 Range/Units 01:48 06:08 07:22 Sodium 135 L (137-145) mmol/L Creatinine 0.38 L (0.52-1.04) mg/dL Glucose 324 H (74-99) mg/dL POC Glucose (mg/dL) 351 H 344 H (70-110) mg/dL Total Protein 5.9 L (6.3-8.2) g/dL Albumin 3.3 L (3.5-5.0) g/dL 02/20/23 02/20/23 02/20/23 Range/Units 11:21 17:43 20:18 Sodium (137-145) mmol/L Creatinine (0.52-1.04) mg/dL Glucose (74-99) mg/dL POC Glucose (mg/dL) 291 H 387 H 273 H (70-110) mg/dL Total Protein (6.3-8.2) g/dL Albumin (3.5-5.0) g/dL Microbiology - Last 24 Hours (Table) 02/17/23 00:20 Blood Culture - Preliminary Blood 02/17/23 00:35 Blood Culture - Preliminary Blood Assessment and Plan Plan: Continue with current treatment, IV vancomycin and local wound care with veronika. Vascular surgery following
[2023-02-20] MEDS: ALPRAZolam 0.25 MG TAB PO PRN (22:31)
[2023-02-21] MEDS: VANCOMYCIN 1,500 MG in SODIUM CHLORIDE 0.9% 500 ML 500 ML IVPB SCH ×3 (02:03→17:41)
[2023-02-21] MEDS: AMPICILLIN-SULBACTAM 3 GM in SODIUM CHLORIDE 0.9% 100 ML IVPB SCH ×4 (05:17→23:25)
[2023-02-21 07:45] LABS: Glucose,Whole Blood 366 mg/dL (70-110)
[2023-02-21] MEDS: ASPIRIN 81 MG PO SCH (08:49)
[2023-02-21] MEDS: cilostazoL 100 MG TAB PO SCH ×2 (08:49→21:19)
[2023-02-21] MEDS: polyethylene glycoL 3350 17 GM POWD.PACK PO SCH (08:49)
[2023-02-21] MEDS: amLODIPine 5 MG TAB PO SCH (08:49)
[2023-02-21] MEDS: INSULIN ASPART (NovoLOG) 100 UNIT/ML VIAL SQ SCH ×4 (08:49→21:20)
[2023-02-21] MEDS: CLOPIDOGREL 75 MG TAB PO SCH (08:49)
[2023-02-21] MEDS: INSULIN DETEMIR (LEVEMIR) 100 UNIT/ML SYR SQ SCH ×2 (08:49→21:20)
--- NOTE | 2023-02-21 11:51 | P.PN ---
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 On today's evaluation that is 02/21/2022, the patient continues to be afebrile, the patient is breathing comfortably on room air, the patient denies any chest pain shortness of breath or cough no abdominal pain or any diarrhea, the patient pain to the left big toe has slightly decreased in intensity No lab draw today urine blood culture so far negative Objective - Vital Signs Vital signs: Vital Signs Temp 97.7 F 02/21/23 07:58 Pulse 73 02/21/23 07:58 Resp 17 02/21/23 07:58 BP 113/61 02/21/23 07:58 Pulse Ox 93 L 02/21/23 07:58 FiO2 Intake & Output 02/20/23 02/21/23 02/21/23 18:59 06:59 18:59 Intake Total 950 Balance 950 Weight 65.317 kg Intake: Oral 950 Other: Voiding Method Toilet # Voids 3 - Exam GENERAL DESCRIPTION: Middle-aged female elise in bed in no distress RESPIRATORY SYSTEM: Unlabored breathing , decreased breath sounds at bases HEART: S1 S2 regular rate and rhythm , ABDOMEN: Soft , no tenderness EXTREMITIES: Left big toe is dressed - Labs CBC & Chem 7: 02/20/23 06:08 02/20/23 06:08 Labs: Abnormal Lab Results - Last 24 Hours (Table) 02/20/23 02/20/23 02/21/23 Range/Units 17:43 20:18 07:25 POC Glucose (mg/dL) 387 H 273 H 366 H (70-110) mg/dL Microbiology - Last 24 Hours (Table) 02/17/23 00:20 Blood Culture - Preliminary Blood 02/17/23 00:35 Blood Culture - Preliminary Blood Assessment and Plan (1) Diabetic foot infection Current Visit: Yes Status: Acute Code(s): E11.628 - TYPE 2 DIABETES MELLITUS WITH OTHER SKIN COMPLICATIONS; L08.9 - LOCAL INFECTION OF THE SKIN AND SUBCUTANEOUS TISSUE, UNSP SNOMED Code(s): 829028995 Plan: 1patient with left big toe diabetic foot infection Dobbins grade 4 in this pa tient who did have a necrosis of the left big toe especially to the medial aspect of the second cellulitis we will need to cover for the polymicrobial masha usually associated with diabetic foot infection 2patient has been evaluated vascular surgery recommending vascular workup for arterial insufficiency and local treatment with [facility] 3patient to continue vancomycin while watching her kidney function closely awaiting surgical debridement cultures and vascular workup Dictation was produced using [employer] dictation software. please excuse any grammatical, word or spelling errors. Time with Patient: Less than 30
[2023-02-21 13:03] LABS: Glucose,Whole Blood 298 mg/dL (70-110)
[2023-02-21] MEDS: HYDROmorphone 1 MG/ML 1 ML SYRINGE IVP PRN ×3 (13:22→21:53)
[2023-02-21 16:57] LABS: Glucose,Whole Blood 308 mg/dL (70-110)
[2023-02-21 20:13] LABS: Glucose,Whole Blood 277 mg/dL (70-110)
[2023-02-21] MEDS: ALPRAZolam 0.25 MG TAB PO PRN (21:21)
[2023-02-21] MEDS: ATORVASTATIN 80 MG TAB PO SCH (21:21)
[2023-02-22] MEDS: VANCOMYCIN 1,500 MG in SODIUM CHLORIDE 0.9% 500 ML 500 ML IVPB SCH ×2 (00:49→09:08)
[2023-02-22] MEDS: AMPICILLIN-SULBACTAM 3 GM in SODIUM CHLORIDE 0.9% 100 ML IVPB SCH ×2 (06:28→12:40)
[2023-02-22 07:55] LABS: Glucose,Whole Blood 345 mg/dL (70-110)
[2023-02-22] MEDS: INSULIN ASPART (NovoLOG) 100 UNIT/ML VIAL SQ SCH ×2 (08:20→12:40)
[2023-02-22] MEDS: INSULIN DETEMIR (LEVEMIR) 100 UNIT/ML SYR SQ SCH (08:20)
[2023-02-22] MEDS: CLOPIDOGREL 75 MG TAB PO SCH (08:21)
[2023-02-22] MEDS: polyethylene glycoL 3350 17 GM POWD.PACK PO SCH (08:21)
[2023-02-22] MEDS: cilostazoL 100 MG TAB PO SCH (08:21)
[2023-02-22] MEDS: ASPIRIN 81 MG PO SCH (08:21)
[2023-02-22] MEDS: amLODIPine 5 MG TAB PO SCH (08:21)
[2023-02-22] MEDS: HYDROmorphone 1 MG/ML 1 ML SYRINGE IVP PRN ×2 (08:23→15:19)
[2023-02-22] MEDS ORDERED: VANCOMYCIN TROUGH DUE 1 EACH MISC MISCELLANE ONE (09:00)
[2023-02-22 09:29] LABS: African American GFR (CKD) >90 (>60 ml/min/1.73 sqM); Non-African American GFR(CKD) >90 (>60 ml/min/1.73 sqM)
--- NOTE | 2023-02-22 09:59 | P.PN ---
Subjective Progress Note Date: 02/21/23 She is afebrile, denies chest pain, shortness of breath, malaise. She continues on vancomycin per ID with cultures negative. Objective - Vital Signs Vital signs: Vital Signs Temp 98 F 02/22/23 08:00 Pulse 77 02/22/23 08:00 Resp 16 02/22/23 08:00 BP 124/69 02/22/23 08:00 Pulse Ox 92 L 02/22/23 08:00 FiO2 Intake & Output 02/21/23 02/22/23 02/22/23 18:59 06:59 18:59 Intake Total 840 Balance 840 Intake: Oral 840 Other: Voiding Method Toilet # Voids 2 2 - Exam Gen: well developed female in NAD CV: RRR, no murmur lungs: Clear bilaterally Ext: L great toe wrapped in gauze - Labs CBC & Chem 7: 02/20/23 06:08 02/22/23 08:46 Labs: Abnormal Lab Results - Last 24 Hours (Table) 02/21/23 02/21/23 02/21/23 Range/Units 12:41 16:53 20:11 Creatinine (0.52-1.04) mg/dL POC Glucose (mg/dL) 298 H 308 H 277 H (70-110) mg/dL 02/22/23 02/22/23 Range/Units 07:40 08:46 Creatinine 0.42 L (0.52-1.04) mg/dL POC Glucose (mg/dL) 345 H (70-110) mg/dL Assessment and Plan Plan: Continue with current treatment, IV vancomycin and local wound care with [facility]. Vascular surgery following and await final disposition regarding procedure. Continue plavix, ASA, lipitor
[2023-02-22 12:34] LABS: Glucose,Whole Blood 267 mg/dL (70-110)
[2023-02-22 13:01] VITALS: BP 121/72; PULSE 78; RESP 18; TEMP 97.8
[2023-02-22] MEDS: DOCUSATE 100 MG CAP PO PRN (14:36)
--- NOTE | 2023-02-22 17:35 | P.PN ---
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 On today's evaluation that is 02/22/2023, the patient remains to be afebrile the patient is breathing comfortably on room air denies any chest pain shortness of breath or cough no nausea noted no abdominal pain or any worsening pain to the left big toe. Patient did have a creatinine of 0.42 no CBC was done today blood culture negative Objective - Vital Signs Vital signs: Vital Signs Temp 98 F 02/22/23 08:00 Pulse 77 02/22/23 08:00 Resp 16 02/22/23 08:00 BP 124/69 02/22/23 08:00 Pulse Ox 92 L 02/22/23 08:00 FiO2 Intake & Output 02/21/23 02/22/23 02/22/23 18:59 06:59 18:59 Intake Total 840 Balance 840 Intake: Oral 840 Other: Voiding Method Toilet # Voids 2 2 - Exam GENERAL DESCRIPTION: Middle-aged female elise in bed in no distress RESPIRATORY SYSTEM: Unlabored breathing , decreased breath sounds at bases HEART: S1 S2 regular rate and rhythm , ABDOMEN: Soft , no tenderness EXTREMITIES: Left big toe is dressed - Labs CBC & Chem 7: 02/20/23 06:08 02/22/23 08:46 Labs: Abnormal Lab Results - Last 24 Hours (Table) 02/21/23 02/21/23 02/21/23 Range/Units 12:41 16:53 20:11 Creatinine (0.52-1.04) mg/dL POC Glucose (mg/dL) 298 H 308 H 277 H (70-110) mg/dL 02/22/23 02/22/23 Range/Units 07:40 08:46 Creatinine 0.42 L (0.52-1.04) mg/dL POC Glucose (mg/dL) 345 H (70-110) mg/dL Assessment and Plan (1) Diabetic foot infection Status: Acute Code(s): E11.628 - TYPE 2 DIABETES MELLITUS WITH OTHER SKIN COMPLICATIONS; L08.9 - LOCAL INFECTION OF THE SKIN AND SUBCUTANEOUS TISSUE, UNSP SNOMED Code(s): 590592123 Plan: 1patient with left big toe diabetic foot infection Dobbins grade 4 in this patient who did have a necrosis of the left big toe especially to the medial aspect of the second cellulitis we will need to cover for the polymicrobial masha usually associated with diabetic foot infection 2patient has been evaluated vascular surgery recommending vascular workup for a rterial insufficiency and local treatment with [facility] 3patient apparently has been cleared for discharge by admitting team and no surgical intervention has been playing we will give her a course of oral doxycycline and close outpatient follow-up prescription sent to the pharmacy Dictation was produced using [employer] dictation software. please excuse any grammatical, word or spelling errors. Time with Patient: Less than 30
[2023-02-22] MEDS ORDERED: VANCOMYCIN 1,250 MG in SODIUM CHLORIDE 0.9% 250 ML IVPB SCH (18:00)
== END 2023-02-22 16:40 | disposition home or self-care (01) | DRG 638 ==
LOC: SUPCPDRO 20:33 → EC 20:33 → 5NMEDONC 02-17 02:29
PROVIDERS: ADMIT Family Medicine; ATTEND Family Medicine
DX: E11.628 Type 2 diabetes mellitus with other skin complications (principal); E11.52 Type 2 diabetes mellitus with diabetic peripheral angiopathy with gangrene; I70.262 Atherosclerosis of native arteries of extremities with gangrene, left leg; I69.351 Hemiplegia and hemiparesis following cerebral infarction affecting right dominant side; L03.116 Cellulitis of left lower limb; E11.41 Type 2 diabetes mellitus with diabetic mononeuropathy; E11.621 Type 2 diabetes mellitus with foot ulcer; L97.529 Non-pressure chronic ulcer of other part of left foot with unspecified severity; L03.032 Cellulitis of left toe; Z79.4 Long term (current) use of insulin; Z89.429 Acquired absence of other toe(s), unspecified side; G57.93 Unspecified mononeuropathy of bilateral lower limbs; E78.5 Hyperlipidemia, unspecified; F17.210 Nicotine dependence, cigarettes, uncomplicated; F41.9 Anxiety disorder, unspecified; I10 Essential (primary) hypertension; I25.10 Atherosclerotic heart disease of native coronary artery without angina pectoris; I25.2 Old myocardial infarction; K90.0 Celiac disease; G89.29 Other chronic pain; M54.50 Low back pain, unspecified; K21.9 Gastro-esophageal reflux disease without esophagitis; K44.9 Diaphragmatic hernia without obstruction or gangrene; R26.81 Unsteadiness on feet; Z79.82 Long term (current) use of aspirin; Z79.02 Long term (current) use of antithrombotics/antiplatelets; Z79.899 Other long term (current) drug therapy; Z98.62 Peripheral vascular angioplasty status; Z95.5 Presence of coronary angioplasty implant and graft
CPT/HCPCS: 36415; 80053; 80202; 82565; 83605; 85025; 87040; 96361; 96374; 99285

== ENCOUNTER 2023-02-23 19:21 | Inpatient (IN) | payer MEDICARE ==
--- NOTE | 2023-02-23 19:45 | ED ---
General Adult HPI - General Source: patient, RN notes reviewed <Ana Small - Last Filed: 02/23/23 22:12> - History of Present Illness -: days(s) Location: left, lower extremity Radiation: distal Severity scale (1-10): 7 Consistency: constant Improves with: none Worsens with: none Associated Symptoms: denies other symptoms <Chris Garcia - Last Filed: 03/12/23 15:18> - General Stated complaint: left foot infection Time Seen by Provider: 02/23/23 19:44 - History of Present Illness Initial comments: 62-year-old female presents to the emergency department for evaluation of left toe wounds. She states that she was dismissed just discharged from the hospital approximately 24 hours ago for this same thing. She states that when she went home she noticed a new and worsening ulcer on the fifth toe. (Ana Small) This is a 62-year-old female to the emergency department for evaluation of left toe pain left toe wounds. She states the pain seems to be opening with drainage and significant discoloration, turning black. No history of diabetic foot ulcers, patient does have history of ulcer, history of diabetes (Chris Garcia) - Related Data Home Medications Medication Instructions Recorded Confirmed Atorvastatin [Lipitor] 80 mg PO HS 06/26/16 02/24/23 Aspirin 81 mg PO DAILY 10/08/17 02/24/23 Insulin NPH Hum/Reg Insulin Hm See Protocol SQ ACHS 02/17/23 02/24/23 [NovoLIN 70-30 100 Unit/ml Vial] Previous Rx's Medication Instructions Recorded Clopidogrel [Plavix] 75 mg PO DAILY 30 Days #30 tab 01/05/21 Doxycycline Hyclate 100 mg PO BID 10 Days #20 tab 02/22/23 amLODIPine [Norvasc] 5 mg PO DAILY #30 tab 02/22/23 cilostazoL [Pletal] 50 mg PO BID #60 tab 02/22/23 Allergies Allergy/AdvReac Type Severity Reaction Status Date / Time gluten AdvReac Nausea & Verified 02/24/23 11:40 Vomiting & Diarrhea, bloating Review of Systems ROS Other: All systems not noted in ROS Statement are negative. <Ana Small - Last Filed: 02/23/23 22:12> ROS Other: All systems not noted in ROS Statement are negative. <KaileesanjuanaChris Melissa - Last Filed: 03/12/23 15:18> ROS Statement: Those systems with pertinent positive or pertinent negative responses have been documented in the HPI. 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 , unsteady gait., see [facility] Last Myocardial Infarction Date:: february 2017 History of Any Multi-Drug Resistant Organisms: None Reported Past Surgical History: Back Surgery, Cholecystectomy, Heart Catheterization With Stent, Orthopedic Surgery Additional Past Surgical History / Comment(s): Right 5th toe amputation, lumbar fusion, spinal cord stimulator in place but not working., left knee arthroscopy, EGD, PATRICIA, 3 cardiac stents, Aortoram, stent to left iliac artery. , stent right leg above the knee, right 4th toe amputation. Past Anesthesia/Blood Transfusion Reactions: No Reported Reaction Additional Past Anesthesia/Blood Transfusion Reaction / Comment(s): . Date of Last Stent Placement:: 12/14/2021 Past Psychological History: Anxiety Additional Psychological History / Comment(s): . Smoking Status: Current every day smoker Past Alcohol Use History: None Reported Additional Past Alcohol Use History / Comment(s): Started smoking in 1989, smokes 1/2 pack / day. Past Drug Use History: None Reported - Past Family History Father Family Medical History: Cancer, Liver Disease Additional Family Medical History / Comment(s): Idiopathic cirrhosis of liver, Liver Cancer. Mother Family Medical History: Coronary Artery Disease (CAD), Myocardial Infarction (HI) Additional Family Medical History / Comment(s): Multiple stents. Mother at the age of 77 or 78 from HI. <Ana Small - Last Filed: 02/23/23 22:12> General Exam <Ana Small - Last Filed: 02/23/23 22:12> General appearance: alert, in no apparent distress Head exam: Present: atraumatic, normocephalic, normal inspection Eye exam: Present: normal appearance, PERRL, EOMI. Absent: scleral icterus, conjunctival injection, periorbital swelling ENT exam: Present: normal exam, mucous membranes moist Neck exam: Present: normal inspection. Absent: tenderness, meningismus, lymphadenopathy Respiratory exam: Present: normal lung sounds bilaterally. Absent: respiratory distress, wheezes, rales, rhonchi, stridor Cardiovascular Exam: Present: regular rate, normal rhythm, normal heart sounds. Absent: systolic murmur, diastolic murmur, rubs, gallop, clicks GI/Abdominal exam: Present: soft, normal bowel sounds. Absent: distended, tenderness, guarding, rebound, rigid Extremities exam: Present: normal inspection, full ROM, tenderness, normal capillary refill, other (Significant dark areas to foot middle toe). Absent: pedal edema, joint swelling, calf tenderness Back exam: Present: normal inspection Neurological exam: Present: alert, oriented X3, CN II-XII intact Psychiatric exam: Present: normal affect, normal mood Skin exam: Present: warm, dry, intact, normal color. Absent: rash <Chris Garcia - Last Filed: 03/12/23 15:18> - General Exam Comments Initial Comments: Visual Physical Exam Vital signs reviewed General: Well-appearing, nontoxic, no acute distress. Head: Normocephalic, atraumatic Eyes: PERRLA, EOMI ENT: Airway patent Chest: Nonlabored breathing Skin: No visual rash, normal skin tone Neuro: Alert and oriented 3 Musculoskeletal: No gross abnormalities (Kulka,Ana) Course <Chris Garcia - Last Filed: 03/12/23 15:18> Vital Signs 02/23/23 02/23/23 20:29 22:49 Temperature 98.3 F Pulse Rate 97 82 Respiratory 18 18 Rate Blood Pressure 139/87 135/94 O2 Sat by Pulse 98 97 Oximetry - Reevaluation(s) Reevaluation #1: Medical records reviewed (Chris Garcia) Reevaluation #2: Patient symptoms unchanged (Chris Garcia) Reevaluation #3: Patient informed results and questions answered (Chris Garcia) Reevaluation #4: Was pt. sent in by a medical professional or institution (, PA, VOCATIONAL REHABILITATION TECHNICIAN, urgent care, hospital, or retirement...) When possible be specific @ -no Did you speak to anyone other than the patient for history (EMS, parent, family, police, friend...)? What history was obtained from this source @ -no Did you review nursing and triage notes (agree or disagree)? Why? @ -agree Are old charts reviewed (outside hosp., previous admission, EMS record, old EKG, old radiological studies, urgent care reports/EKG's, retirement records)? Report findings @ -yes Differential Diagnosis (chest pain, altered mental status, abdominal pain women, abdominal pain men, vaginal bleeding, weakness, fever, dyspnea, syncope, headache, dizziness, GI bleed, back pain, seizure, CVA, palpatations, mental health, musculoskeletal)? @ -prior EKG interpreted by me (3pts min.). @ -no X-rays interpreted by me (1pt min.). @ -no CT interpreted by me (1pt min.). @ -no U/S interpreted by me (1pt. min.). @ -no What testing was considered but not performed or refused? (CT, X-rays, U/S, labs)? Why? @ -none What meds were considered but not given or refused? Why? @ -none Did you discuss the management of the patient with other professionals (professionals i.e. PRISCILLA Powell, VOCATIONAL REHABILITATION TECHNICIAN, lab, RT, psych nurse, social contact worker, coil taper, teacher, special weapons unit officer, caseworker)? Give summary @ -no Was smoking cessation discussed for >3mins.? @ -no Were there social determinants of health that impacted care today? How? (Homelessness, low income, unemployed, alcoholism, drug addiction, transportation, low edu. Level, literacy, decrease access to med. care, long-term, rehab)? @ -none Was there de-escalation of care discussed even if they declined (Discuss DNR or withdrawal of care, Hospice)? DNR status @ -no What co-morbidities impacted this encounter? (DM, HTN, Smoking, COPD, CAD, Cancer, CVA, ARF, Chemo, Hep., AIDS, mental health diagnosis, sleep apnea, morbid obesity)? @ -none Was patient admitted / discharged? Hospital course, mention meds given and route, prescriptions, significant lab abnormalities, going to OR and other pertinent info. @ - 62 female to the emergency department for evaluation of severe and persis tent leg pain for pain recurrent ulcer with symptoms of gangrene. Patient be admitted for IV antibiotics and surgical evaluation Admitted Was critical care preformed (if so, how long)? @ -no Undiagnosed new problem with uncertain prognosis? @ -no Drug Therapy requiring intensive monitoring for toxicity (Heparin, Nitro, Insulin, Cardizem)? @ -no Were any procedures done? @ -no Diagnosis/symptom? @ -Foot gangrene without also diabetic Acute, or Chronic, or Acute on Chronic? @ -Acute Uncomplicated (without systemic symptoms) or Complicated (systemic symptoms)? @ -Complicated Side effects of treatment? @ -no Exacerbation, Progression, or Severe Exacerbation? @ -exacerbation Poses a threat to life or bodily function? How? (Chest pain, USA, HI, pneumonia, PE, COPD, DKA, ARF, appy, cholecystitis, CVA, Diverticulitis, Homicidal, Suicidal, threat to staff... and all critical care pts) @ -yes significant infection (Chris Garcia) - Consultations Consultation #1: Spoke with admitting who agrees to admit this patient (Chris Garcia) Medical Decision Making - Lab Data Result diagrams: 02/23/23 20:33 02/23/23 20:33 <Ana Small - Last Filed: 02/23/23 22:12> - Lab Data Result diagrams: 03/04/23 05:32 03/05/23 07:35 <Chris Garcia - Last Filed: 03/12/23 15:18> - Medical Decision Making Quick note preformed by Ana Small PA-C (Ana Small) 62 female to the emergency department for evaluation of severe and persistent leg pain for pain recurrent ulcer with symptoms of gangrene. Patient be admitted for IV antibiotics and surgical evaluation (Chris Garcia) - Lab Data Lab Results 02/23/23 02/23/23 02/23/23 Range/Units 20:33 20:33 20:33 WBC 9.2 (3.8-10.6) k/uL RBC 4.98 (3.80-5.40) m/uL Hgb 14.4 (11.4-16.0) gm/dL Hct 41.7 (34.0-46.0) % MCV 83.8 (80.0-100.0) fL MCH 28.8 (25.0-35.0) pg MCHC 34.4 (31.0-37.0) g/dL RDW 14.3 (11.5-15.5) % Plt Count 247 (150-450) k/uL MPV 7.8 Neutrophils % 72 % Lymphocytes % 21 % Monocytes % 4 % Eosinophils % 3 % Basophils % 1 % Neutrophils # 6.6 (1.3-7.7) k/uL Lymphocytes # 1.9 (1.0-4.8) k/uL Monocytes # 0.3 (0-1.0) k/uL Eosinophils # 0.2 (0-0.7) k/uL Basophils # 0.0 (0-0.2) k/uL Poikilocytosis Slight PT 11.5 (10.0-12.5) sec INR 1.1 (<1.2) APTT 24.3 (22.0-30.0) sec Sodium 138 (137-145) mmol/L Potassium 3.5 (3.5-5.1) mmol/L Chloride 97 L (98-107) mmol/L Carbon Dioxide 27 (22-30) mmol/L Anion Gap 14 mmol/L BUN 5 L (7-17) mg/dL Creatinine 0.40 L (0.52-1.04) mg/dL Est GFR (CKD-EPI)AfAm >90 (>60 ml/min/1.73 sqM) Est GFR (CKD-EPI)NonAf >90 (>60 ml/min/1.73 sqM) Glucose 281 H (74-99) mg/dL POC Glucose (mg/dL) (70-110) mg/dL POC Glu Forming Department Supervisor ID Estimated Ave Glu mg/dL mg/dL Hemoglobin A1c (<=6.0) % Plasma Lactic Acid Yousif (0.7-2.0) mmol/L Calcium 9.5 (8.4-10.2) mg/dL Phosphorus (2.5-4.5) mg/dL Magnesium (1.6-2.3) mg/dL Total Bilirubin 0.6 (0.2-1.3) mg/dL AST 19 (14-36) U/L ALT 18 (4-34) U/L Alkaline Phosphatase 87 (38-126) U/L Total Protein 7.7 (6.3-8.2) g/dL Albumin 4.6 (3.5-5.0) g/dL Globulin g/dL Albumin/Globulin Ratio Triglycerides (0.00-149.00) mg/dL Cholesterol (0.00-200.00) mg/dL LDL Cholesterol, Calc (0.0-131.0) mg/dL VLDL Cholesterol, Calc (5.00-40.00) mg/dL HDL Cholesterol (40.00-60.00) mg/dL Cholesterol/HDL Ratio Ratio Vancomycin Trough ug/mL 02/23/23 02/24/23 02/24/23 Range/Units 20:33 04:28 04:28 WBC 8.0 (3.8-10.6) k/uL RBC 4.32 (3.80-5.40) m/uL Hgb 12.8 (11.4-16.0) gm/dL Hct 36.6 (34.0-46.0) % MCV 84.6 (80.0-100.0) fL MCH 29.5 (25.0-35.0) pg MCHC 34.9 (31.0-37.0) g/dL RDW 14.7 (11.5-15.5) % Plt Count 205 (150-450) k/uL MPV 9.1 Neutrophils % 62 % Lymphocytes % 28 % Monocytes % 5 % Eosinophils % 3 % Basophils % 0 % Neutrophils # 5.0 (1.3-7.7) k/uL Lymphocytes # 2.3 (1.0-4.8) k/uL Monocytes # 0.4 (0-1.0) k/uL Eosinophils # 0.2 (0-0.7) k/uL Basophils # 0.0 (0-0.2) k/uL Poikilocytosis Slight PT (10.0-12.5) sec INR (<1.2) APTT (22.0-30.0) sec Sodium 137 (137-145) mmol/L Potassium 3.3 L (3.5-5.1) mmol/L Chloride 99 (98-107) mmol/L Carbon Dioxide 27 (22-30) mmol/L Anion Gap 11 mmol/L BUN 5 L (7-17) mg/dL Creatinine 0.38 L (0.52-1.04) mg/dL Est GFR (CKD-EPI)AfAm >90 (>60 ml/min/1.73 sqM) Est GFR (CKD-EPI)NonAf >90 (>60 ml/min/1.73 sqM) Glucose 319 H (74-99) mg/dL POC Glucose (mg/dL) (70-110) mg/dL POC Glu Forming Department Supervisor ID Estimated Ave Glu mg/dL mg/dL Hemoglobin A1c (<=6.0) % Plasma Lactic Acid Yousif 1.4 (0.7-2.0) mmol/L Calcium 8.3 L (8.4-10.2) mg/dL Phosphorus 3.9 (2.5-4.5) mg/dL Magnesium 1.7 (1.6-2.3) mg/dL Total Bilirubin 0.4 (0.2-1.3) mg/dL AST 16 (14-36) U/L ALT 15 (4-34) U/L Alkaline Phosphatase 68 (38-126) U/L Total Protein 6.0 L (6.3-8.2) g/dL Albumin 3.6 (3.5-5.0) g/dL Globulin g/dL Albumin/Globulin Ratio Triglycerides (0.00-149.00) mg/dL Cholesterol (0.00-200.00) mg/dL LDL Cholesterol, Calc (0.0-131.0) mg/dL VLDL Cholesterol, Calc (5.00-40.00) mg/dL HDL Cholesterol (40.00-60.00) mg/dL Cholesterol/HDL Ratio Ratio Vancomycin Trough ug/mL 02/24/23 02/24/23 02/24/23 Range/Units 06:24 09:36 09:36 WBC (3.8-10.6) k/uL RBC (3.80-5.40) m/uL Hgb (11.4-16.0) gm/dL Hct (34.0-46.0) % MCV (80.0-100.0) fL MCH (25.0-35.0) pg MCHC (31.0-37.0) g/dL RDW (11.5-15.5) % Plt Count (150-450) k/uL MPV Neutrophils % % Lymphocytes % % Monocytes % % Eosinophils % % Basophils % % Neutrophils # (1.3-7.7) k/uL Lymphocytes # (1.0-4.8) k/uL Monocytes # (0-1.0) k/uL Eosinophils # (0-0.7) k/uL Basophils # (0-0.2) k/uL Poikilocytosis PT (10.0-12.5) sec INR (<1.2) APTT (22.0-30.0) sec Sodium (137-145) mmol/L Potassium (3.5-5.1) mmol/L Chloride (98-107) mmol/L Carbon Dioxide (22-30) mmol/L Anion Gap mmol/L BUN (7-17) mg/dL Creatinine (0.52-1.04) mg/dL Est GFR (CKD-EPI)AfAm (>60 ml/min/1.73 sqM) Est GFR (CKD-EPI)NonAf (>60 ml/min/1.73 sqM) Glucose (74-99) mg/dL POC Glucose (mg/dL) 352 H (70-110) mg/dL POC Glu Forming Department Supervisor ID Kosta Stanley Estimated [address] Glu mg/dL 237 mg/dL Hemoglobin A1c 9.9 H (<=6.0) % Plasma Lactic Acid Yousif (0.7-2.0) mmol/L Calcium (8.4-10.2) mg/dL Phosphorus (2.5-4.5) mg/dL Magnesium (1.6-2.3) mg/dL Total Bilirubin (0.2-1.3) mg/dL AST (14-36) U/L ALT (4-34) U/L Alkaline Phosphatase (38-126) U/L Total Protein (6.3-8.2) g/dL Albumin (3.5-5.0) g/dL Globulin g/dL Albumin/Globulin Ratio Triglycerides 197.00 H (0.00-149.00) mg/dL Cholesterol 114.00 (0.00-200.00) mg/dL LDL Cholesterol, Calc 38.8 (0.0-131.0) mg/dL VLDL Cholesterol, Calc 39.40 (5.00-40.00) mg/dL HDL Cholesterol 35.80 L (40.00-60.00) mg/dL Cholesterol/HDL Ratio 3.18 Ratio Vancomycin Trough ug/mL 02/24/23 02/24/23 02/24/23 Range/Units 12:04 17:04 21:01 WBC (3.8-10.6) k/uL RBC (3.80-5.40) m/uL Hgb (11.4-16.0) gm/dL Hct (34.0-46.0) % MCV (80.0-100.0) fL MCH (25.0-35.0) pg MCHC (31.0-37.0) g/dL RDW (11.5-15.5) % Plt Count (150-450) k/uL MPV Neutrophils % % Lymphocytes % % Monocytes % % Eosinophils % % Basophils % % Neutrophils # (1.3-7.7) k/uL Lymphocytes # (1.0-4.8) k/uL Monocytes # (0-1.0) k/uL Eosinophils # (0-0.7) k/uL Basophils # (0-0.2) k/uL Poikilocytosis PT (10.0-12.5) sec INR (<1.2) APTT (22.0-30.0) sec Sodium (137-145) mmol/L Potassium (3.5-5.1) mmol/L Chloride (98-107) mmol/L Carbon Dioxide (22-30) mmol/L Anion Gap mmol/L BUN (7-17) mg/dL Creatinine (0.52-1.04) mg/dL Est GFR (CKD-EPI)AfAm (>60 ml/min/1.73 sqM) Est GFR (CKD-EPI)NonAf (>60 ml/min/1.73 sqM) Glucose (74-99) mg/dL POC Glucose (mg/dL) 385 H 212 H 260 H (70-110) mg/dL POC Glu Forming Department Supervisor PRISCILLA Cortez, Sandy Cortez, Shaylee Head [address] Glu mg/dL mg/dL Hemoglobin A1c (<=6.0) % Plasma Lactic Acid Yousif (0.7-2.0) mmol/L Calcium (8.4-10.2) mg/dL Phosphorus (2.5-4.5) mg/dL Magnesium (1.6-2.3) mg/dL Total Bilirubin (0.2-1.3) mg/dL AST (14-36) U/L ALT (4-34) U/L Alkaline Phosphatase (38-126) U/L Total Protein (6.3-8.2) g/dL Albumin (3.5-5.0) g/dL Globulin g/dL Albumin/Globulin Ratio Triglycerides (0.00-149.00) mg/dL Cholesterol (0.00-200.00) mg/dL LDL Cholesterol, Calc (0.0-131.0) mg/dL VLDL Cholesterol, Calc (5.00-40.00) mg/dL HDL Cholesterol (40.00-60.00) mg/dL Cholesterol/HDL Ratio Ratio Vancomycin Trough ug/mL 02/25/23 02/25/23 02/25/23 Range/Units 06:01 07:28 07:28 WBC (3.8-10.6) k/uL RBC (3.80-5.40) m/uL Hgb (11.4-16.0) gm/dL Hct (34.0-46.0) % MCV (80.0-100.0) fL MCH (25.0-35.0) pg MCHC (31.0-37.0) g/dL RDW (11.5-15.5) % Plt Count (150-450) k/uL MPV Neutrophils % % Lymphocytes % % Monocytes % % Eosinophils % % Basophils % % Neutrophils # (1.3-7.7) k/uL Lymphocytes # (1.0-4.8) k/uL Monocytes # (0-1.0) k/uL Eosinophils # (0-0.7) k/uL Basophils # (0-0.2) k/uL Poikilocytosis PT (10.0-12.5) sec INR (<1.2) APTT (22.0-30.0) sec Sodium 139 (137-145) mmol/L Potassium 3.5 (3.5-5.1) mmol/L Chloride 103 (98-107) mmol/L Carbon Dioxide 25 (22-30) mmol/L Anion Gap 11 mmol/L BUN 4 L (7-17) mg/dL Creatinine 0.38 L (0.52-1.04) mg/dL Est GFR (CKD-EPI)AfAm >90 (>60 ml/min/1.73 sqM) Est GFR (CKD-EPI)NonAf >90 (>60 ml/min/1.73 sqM) Glucose 265 H (74-99) mg/dL POC Glucose (mg/dL) 326 H (70-110) mg/dL POC Glu Forming Department Supervisor Kosta Ruff Est[address] Glu mg/dL 229 mg/dL Hemoglobin A1c 9.6 H (<=6.0) % Plasma Lactic Acid Yousif (0.7-2.0) mmol/L Calcium 8.4 (8.4-10.2) mg/dL Phosphorus (2.5-4.5) mg/dL Magnesium (1.6-2.3) mg/dL Total Bilirubin 0.3 (0.2-1.3) mg/dL AST 19 (14-36) U/L ALT 16 (4-34) U/L Alkaline Phosphatase 63 (38-126) U/L Total Protein 5.6 L (6.3-8.2) g/dL Albumin 3.2 L (3.5-5.0) g/dL Globulin 2.4 g/dL Albumin/Globulin Ratio 1.3 Triglycerides (0.00-149.00) mg/dL Cholesterol (0.00-200.00) mg/dL LDL Cholesterol, Calc (0.0-131.0) mg/dL VLDL Cholesterol, Calc (5.00-40.00) mg/dL HDL Cholesterol (40.00-60.00) mg/dL Cholesterol/HDL Ratio Ratio Vancomycin Trough ug/mL 02/25/23 02/25/23 02/25/23 Range/Units 07:28 11:09 12:08 WBC 7.2 (3.8-10.6) k/uL RBC 4.15 (3.80-5.40) m/uL Hgb 12.3 (11.4-16.0) gm/dL Hct 36.0 (34.0-46.0) % MCV 86.8 (80.0-100.0) fL MCH 29.6 (25.0-35.0) pg MCHC 34.1 (31.0-37.0) g/dL RDW 14.4 (11.5-15.5) % Plt Count 197 (150-450) k/uL MPV 7.7 Neutrophils % 71 % Lymphocytes % 20 % Monocytes % 5 % Eosinophils % 3 % Basophils % 0 % Neutrophils # 5.1 (1.3-7.7) k/uL Lymphocytes # 1.4 (1.0-4.8) k/uL Monocytes # 0.3 (0-1.0) k/uL Eosinophils # 0.2 (0-0.7) k/uL Basophils # 0.0 (0-0.2) k/uL Poikilocytosis Slight PT (10.0-12.5) sec INR (<1.2) APTT (22.0-30.0) sec Sodium (137-145) mmol/L Potassium (3.5-5.1) mmol/L Chloride (98-107) mmol/L Carbon Dioxide (22-30) mmol/L Anion Gap mmol/L BUN (7-17) mg/dL Creatinine (0.52-1.04) mg/dL Est GFR (CKD-EPI)AfAm (>60 ml/min/1.73 sqM) Est GFR (CKD-EPI)NonAf (>60 ml/min/1.73 sqM) Glucose (74-99) mg/dL POC Glucose (mg/dL) 341 H (70-110) mg/dL POC Glu Forming Department Supervisor PRISCILLA Sandy Cortez Est[address] Glu mg/dL mg/dL Hemoglobin A1c (<=6.0) % Plasma Lactic Acid Yousif (0.7-2.0) mmol/L Calcium (8.4-10.2) mg/dL Phosphorus (2.5-4.5) mg/dL Magnesium (1.6-2.3) mg/dL Total Bilirubin (0.2-1.3) mg/dL AST (14-36) U/L ALT (4-34) U/L Alkaline Phosphatase (38-126) U/L Total Protein (6.3-8.2) g/dL Albumin (3.5-5.0) g/dL Globulin g/dL Albumin/Globulin Ratio Triglycerides (0.00-149.00) mg/dL Cholesterol (0.00-200.00) mg/dL LDL Cholesterol, Calc (0.0-131.0) mg/dL VLDL Cholesterol, Calc (5.00-40.00) mg/dL HDL Cholesterol (40.00-60.00) mg/dL Cholesterol/HDL Ratio Ratio Vancomycin Trough 14.7 ug/mL 02/25/23 02/25/23 02/26/23 Range/Units 18:47 20:54 05:41 WBC (3.8-10.6) k/uL RBC (3.80-5.40) m/uL Hgb (11.4-16.0) gm/dL Hct (34.0-46.0) % MCV (80.0-100.0) fL MCH (25.0-35.0) pg MCHC (31.0-37.0) g/dL RDW (11.5-15.5) % Plt Count (150-450) k/uL MPV Neutrophils % % Lymphocytes % % Monocytes % % Eosinophils % % Basophils % % Neutrophils # (1.3-7.7) k/uL Lymphocytes # (1.0-4.8) k/uL Monocytes # (0-1.0) k/uL Eosinophils # (0-0.7) k/uL Basophils # (0-0.2) k/uL Poikilocytosis PT (10.0-12.5) sec INR (<1.2) APTT (22.0-30.0) sec Sodium (137-145) mmol/L Potassium (3.5-5.1) mmol/L Chloride (98-107) mmol/L Carbon Dioxide (22-30) mmol/L Anion Gap mmol/L BUN (7-17) mg/dL Creatinine 0.37 L (0.52-1.04) mg/dL Est GFR (CKD-EPI)AfAm >90 (>60 ml/min/1.73 sqM) Est GFR (CKD-EPI)NonAf >90 (>60 ml/min/1.73 sqM) Glucose (74-99) mg/dL POC Glucose (mg/dL) 296 H 245 H (70-110) mg/dL POC Glu Forming Department Supervisor ID Fernando Breannakeith Suresh Barbie [address] Glu mg/dL mg/dL Hemoglobin A1c (<=6.0) % Plasma Lactic Acid Yousif (0.7-2.0) mmol/L Calcium (8.4-10.2) mg/dL Phosphorus (2.5-4.5) mg/dL Magnesium (1.6-2.3) mg/dL Total Bilirubin (0.2-1.3) mg/dL AST (14-36) U/L ALT (4-34) U/L Alkaline Phosphatase (38-126) U/L Total Protein (6.3-8.2) g/dL Albumin (3.5-5.0) g/dL Globulin g/dL Albumin/Globulin Ratio Triglycerides (0.00-149.00) mg/dL Cholesterol (0.00-200.00) mg/dL LDL Cholesterol, Calc (0.0-131.0) mg/dL VLDL Cholesterol, Calc (5.00-40.00) mg/dL HDL Cholesterol (40.00-60.00) mg/dL Cholesterol/HDL Ratio Ratio Vancomycin Trough ug/mL 02/26/23 Range/Units 06:00 WBC (3.8-10.6) k/uL RBC (3.80-5.40) m/uL Hgb (11.4-16.0) gm/dL Hct (34.0-46.0) % MCV (80.0-100.0) fL MCH (25.0-35.0) pg MCHC (31.0-37.0) g/dL RDW (11.5-15.5) % Plt Count (150-450) k/uL MPV Neutrophils % % Lymphocytes % % Monocytes % % Eosinophils % % Basophils % % Neutrophils # (1.3-7.7) k/uL Lymphocytes # (1.0-4.8) k/uL Monocytes # (0-1.0) k/uL Eosinophils # (0-0.7) k/uL Basophils # (0-0.2) k/uL Poikilocytosis PT (10.0-12.5) sec INR (<1.2) APTT (22.0-30.0) sec Sodium (137-145) mmol/L Potassium (3.5-5.1) mmol/L Chloride (98-107) mmol/L Carbon Dioxide (22-30) mmol/L Anion Gap mmol/L BUN (7-17) mg/dL Creatinine (0.52-1.04) mg/dL Est GFR (CKD-EPI)AfAm (>60 ml/min/1.73 sqM) Est GFR (CKD-EPI)NonAf (>60 ml/min/1.73 sqM) Glucose (74-99) mg/dL POC Glucose (mg/dL) 320 H (70-110) mg/dL POC Glu Forming Department Supervisor ID Barbie Suresh Estimated Ave Glu mg/dL mg/dL Hemoglobin A1c (<=6.0) % Plasma Lactic Acid Yousif (0.7-2.0) mmol/L Calcium (8.4-10.2) mg/dL Phosphorus (2.5-4.5) mg/dL Magnesium (1.6-2.3) mg/dL Total Bilirubin (0.2-1.3) mg/dL AST (14-36) U/L ALT (4-34) U/L Alkaline Phosphatase (38-126) U/L Total Protein (6.3-8.2) g/dL Albumin (3.5-5.0) g/dL Globulin g/dL Albumin/Globulin Ratio Triglycerides (0.00-149.00) mg/dL Cholesterol (0.00-200.00) mg/dL LDL Cholesterol, Calc (0.0-131.0) mg/dL VLDL Cholesterol, Calc (5.00-40.00) mg/dL HDL Cholesterol (40.00-60.00) mg/dL Cholesterol/HDL Ratio Ratio Vancomycin Trough ug/mL Disposition <Ana Small - Last Filed: 02/23/23 22:12> Is patient prescribed a controlled substance at d/c from ED?: No Time of Disposition: 23:30 <Chris Garcia - Last Filed: 03/12/23 15:18> Clinical Impression: Diabetes, Occlusion of LAD (left anterior descending) artery, Diabetes mellitus with neuropathy, Chronic wound of extremity, Cellulitis of left foot, Diabetic ulcer of toe of left foot Disposition: ADMITTED IP TO THIS HOSP Condition: Stable
[2023-02-23 21:08] LABS: Basophils % (A) 1 %; Eosinophils # (A) 0.2 k/uL (0-0.7); Eosinophils % (A) 3 %; HCT 41.7 % (34.0-46.0); HGB 14.4 gm/dL (11.4-16.0); Lymphocytes # (A) 1.9 k/uL (1.0-4.8); Lymphocytes % (A) 21 %; MCH 28.8 pg (25.0-35.0); MCHC 34.4 g/dL (31.0-37.0); MCV 83.8 fL (80.0-100.0); Mean Platelet Volume 7.8; Monocytes # (A) 0.3 k/uL (0-1.0); Monocytes % (A) 4 %; Neutrophils # (A) 6.6 k/uL (1.3-7.7); Neutrophils % (A) 72 %; Platelet Count 247 k/uL (150-450); Poikilocytosis Slight; RBC 4.98 m/uL (3.80-5.40); RDW 14.3 % (11.5-15.5); WBC 9.2 k/uL (3.8-10.6)
[2023-02-23 21:17] LABS: INR 1.1 (<1.2); Partial Thromboplastin Time 24.3 sec (22.0-30.0); Prothrombin Time 11.5 sec (10.0-12.5)
[2023-02-23 21:23] LABS: ALT 18 U/L (4-34); AST 19 U/L (14-36); African American GFR (CKD) >90 (>60 ml/min/1.73 sqM); Albumin 4.6 g/dL (3.5-5.0); Alkaline Phosphatase 87 U/L (38-126); Anion Gap 14 mmol/L; Blood Urea Nitrogen 5 mg/dL (7-17); Calcium 9.5 mg/dL (8.4-10.2); Carbon Dioxide 27 mmol/L (22-30); Chloride 97 mmol/L (98-107); Glucose 281 mg/dL (74-99); Non-African American GFR(CKD) >90 (>60 ml/min/1.73 sqM); Potassium 3.5 mmol/L (3.5-5.1); Sodium 138 mmol/L (137-145); Total Bilirubin 0.6 mg/dL (0.2-1.3); Total Protein 7.7 g/dL (6.3-8.2)
[2023-02-23] MEDS ORDERED: NALOXONE 0.4 MG/ML 1 ML VIAL IV PRN (23:22)
[2023-02-23] MEDS ORDERED: VANCOMYCIN IV PER PHARMACY 1 EACH MISC MISCELLANE PRN (23:24)
[2023-02-24] MEDS: HYDROmorphone 1 MG/ML 1 ML SYRINGE IVP PRN ×6 (00:03→21:38)
[2023-02-24] MEDS: SODIUM CHLORIDE 0.9% 1,000 ML IV SCH ×2 (00:08→16:04)
[2023-02-24] MEDS ORDERED: VANCOMYCIN 1,000 MG in SODIUM CHLORIDE 0.9% 250 ML IVPB ONE (01:00)
[2023-02-24 04:38] LABS: Basophils % (A) 0 %; Eosinophils # (A) 0.2 k/uL (0-0.7); Eosinophils % (A) 3 %; HCT 36.6 % (34.0-46.0); HGB 12.8 gm/dL (11.4-16.0); Lymphocytes # (A) 2.3 k/uL (1.0-4.8); Lymphocytes % (A) 28 %; MCH 29.5 pg (25.0-35.0); MCHC 34.9 g/dL (31.0-37.0); MCV 84.6 fL (80.0-100.0); Mean Platelet Volume 9.1; Monocytes # (A) 0.4 k/uL (0-1.0); Monocytes % (A) 5 %; Neutrophils % (A) 62 %; Platelet Count 205 k/uL (150-450); Poikilocytosis Slight; RBC 4.32 m/uL (3.80-5.40); RDW 14.7 % (11.5-15.5)
[2023-02-24 05:10] LABS: ALT 15 U/L (4-34); AST 16 U/L (14-36); African American GFR (CKD) >90 (>60 ml/min/1.73 sqM); Albumin 3.6 g/dL (3.5-5.0); Alkaline Phosphatase 68 U/L (38-126); Anion Gap 11 mmol/L; Blood Urea Nitrogen 5 mg/dL (7-17); Calcium 8.3 mg/dL (8.4-10.2); Carbon Dioxide 27 mmol/L (22-30); Chloride 99 mmol/L (98-107); Glucose 319 mg/dL (74-99); Magnesium 1.7 mg/dL (1.6-2.3); Non-African American GFR(CKD) >90 (>60 ml/min/1.73 sqM); Phosphorus 3.9 mg/dL (2.5-4.5); Potassium 3.3 mmol/L (3.5-5.1); Sodium 137 mmol/L (137-145); Total Bilirubin 0.4 mg/dL (0.2-1.3)
[2023-02-24 06:25] LABS: Glucose,Whole Blood 352 mg/dL (70-110)
[2023-02-24] MEDS: VANCOMYCIN 1,250 MG in SODIUM CHLORIDE 0.9% 250 ML IVPB SCH ×2 (09:49→16:46)
[2023-02-24] MEDS: amLODIPine 5 MG TAB PO SCH (09:56)
[2023-02-24] MEDS: ASPIRIN 81 MG PO SCH (09:56)
[2023-02-24] MEDS: CLOPIDOGREL 75 MG TAB PO SCH (09:56)
[2023-02-24] MEDS ORDERED: VANCOMYCIN 1,000 MG in SODIUM CHLORIDE 0.9% 250 ML IVPB SCH (10:00)
[2023-02-24] MEDS: cilostazoL 100 MG TAB PO SCH ×2 (11:06→19:55)
[2023-02-24 12:07] LABS: Glucose,Whole Blood 385 mg/dL (70-110)
[2023-02-24] MEDS ORDERED: DEXTROSE 50% SYRINGE 50 ML IVP PRN ×2 (12:31)
[2023-02-24] MEDS ORDERED: POTASSIUM CHLORIDE ER 20 MEQ TAB.ER PO STA (12:38)
[2023-02-24] MEDS: AMPICILLIN-SULBACTAM 3 GM in SODIUM CHLORIDE 0.9% 100 ML IVPB SCH ×2 (12:51→18:46)
[2023-02-24] MEDS: INSULIN ASPART (NovoLOG) 100 UNIT/ML VIAL SQ SCH ×3 (12:51→21:08)
[2023-02-24 13:54] LABS: Chol/HDL Ratio 3.18 Ratio
[2023-02-24 13:55] LABS: LDL Cholesterol,Calculated 38.8 mg/dL (0.0-131.0)
--- NOTE | 2023-02-24 14:55 | P.CRDCN ---
History of Present Illness Consult date: 02/24/23 Consult reason: known to you History of present illness: This is Harrison Ni NP, I'm dictating on behalf of Dr. Boyle's H&P and A&P The patient was interviewed and examined. HPI: Patient is a pleasant 8-year-old female who presented to the hospital soon after being discharged after an extended stay for a left foot ulcer and gangrene. Patient has had blistering on her left toes for approximately 3 weeks, with infection noted. Patient has recently been in the hospital for treatment, and was discharged yesterday. Patient reports after going home, she noted another blister show up on her left fifth toe, which brought her back to the hospital for reevaluation. Patient is known by and has been seen by Dr. Cruz in the past, and has received stents to both legs by Dr. Cruz. Patient's past medical history is pertinent for CVA, diabetes, GERD, hyperlipidemia, hypertension, myocardial infarction, and PVD. Patient has had amputations to the right fourth and fifth toes. She has neuropathy in her bilateral feet. She has had pancreatitis. Today the patient reports to us similar from her report to the emergency department. She is concerned about the continued blisters and the new blister on her left fifth toe. She states that she's had a stent placed on the posterior of the left knee, and multiple stents in her right leg. At this time she is denying chest pain, shortness of breath, heart palpitations, nausea, vomiting, diarrhea, and constipation. ROS: [No fever, chills, or rigors] [no cough, phlegm, or expectoration] [no nausea, vomiting, or diarrhea] [no hematuria, dysuria] [no musculoskelatal complaints] [no strokes or seizures] [Multiple infected blisters on the left toes] EXAMINATION: GENERAL: Well-appearing, well-nourished and in no acute distress. NECK: Supple without JVD or thyromegaly. LUNGS: Breath sounds clear to auscultation bilaterally. Respiration equal and unlabored. No wheezes, rales or rhonchi. HEART: Regular rate and rhythm without murmurs, rubs or gallops. S1 and S2 heard. EXTREMITIES: Normal range of motion, no edema. No clubbing or cyanosis. Peripheral pulses intact and strong. REVIEW OF LABS, ECG & MEDICAL DATA: LABS: White count 8.0, hemoglobin 12.8, platelets 205, sodium 137, potassium 3.3, B1 5, creatinine 0.38, hemoglobin A1c 9.9, calcium 8.3, phosphorus 3.9, magnesium 1.7, triglycerides 197, cholesterol 114, LDL 38.8, HDL 35.8 EKG: Patient sounds to be in normal sinus rhythm. IMAGING: No imaging completed at this time. VITALS: Temp 98.0, pulse 74, respirations 21, blood pressure 113/72, O2 saturation 97% on room air IMPRESSION: 1. Acute infected left foot and toe ulcers secondary to PAD. 2. History of multiple bilateral lower extremity stents placed by Dr. Cruz 3. Diabetes 4. Hyperlipidemia 5. Hypertension PLAN: Restart home medications including cilostazol 50 mg twice a day, amlodipine 5 mg daily, clopidogrel 75 mg daily, atorvastatin 80 mg at bedtime, and aspirin 81 mg daily. Obtain lipid panel and check hemoglobin A1c. We'll consult Dr. Cruz reevaluation on Sunday. Recommend IV antibiotics for the lower extremity blisters and infection. This will be managed through medicine. Further recommendations based on patient's clinical course. Thank you for the consult and allowing us to participate in the care of this patient. 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 , unsteady gait., see [facility] Last Myocardial Infarction Date:: february 2017 History of Any Multi-Drug Resistant Organisms: None Reported Past Surgical History: Back Surgery, Cholecystectomy, Heart Catheterization With Stent, Orthopedic Surgery Additional Past Surgical History / Comment(s): Right 5th toe amputation, lumbar fusion, spinal cord stimulator in place but not working., left knee arthroscopy, EGD, PATRICIA, 3 cardiac stents, Aortoram, stent to left iliac artery. , stent right leg above the knee, right 4th toe amputation. Past Anesthesia/Blood Transfusion Reactions: No Reported Reaction Additional Past Anesthesia/Blood Transfusion Reaction / Comment(s): . Date of Last Stent Placement:: 12/14/2021 Past Psychological History: Anxiety Additional Psychological History / Comment(s): . Smoking Status: Current every day smoker Past Alcohol Use History: None Reported Additional Past Alcohol Use History / Comment(s): Started smoking in 1989, smokes 1/2 pack / day. Past Drug Use History: None Reported - Past Family History Father Family Medical History: Cancer, Liver Disease Additional Family Medical History / Comment(s): Idiopathic cirrhosis of liver, Liver Cancer. Mother Family Medical History: Coronary Artery Disease (CAD), Myocardial Infarction ([place] ) Additional Family Medical History / Comment(s): Multiple stents. Mother at the age of 77 or 78 from [place]. Medications and Allergies Home Medications Medication Instructions Recorded Confirmed Type Atorvastatin [Lipitor] 80 mg PO HS 06/26/16 02/24/23 History Aspirin 81 mg PO DAILY 10/08/17 02/24/23 History Clopidogrel [Plavix] 75 mg PO DAILY 30 Days #30 tab 01/05/21 02/24/23 Rx Insulin NPH Hum/Reg Insulin Hm See Protocol SQ ACHS 02/17/23 02/24/23 History [NovoLIN 70-30 100 Unit/ml Vial] Doxycycline Hyclate 100 mg PO BID 10 Days #20 tab 02/22/23 02/24/23 Rx amLODIPine [Norvasc] 5 mg PO DAILY #30 tab 02/22/23 02/24/23 Rx cilostazoL [Pletal] 50 mg PO BID #60 tab 02/22/23 02/24/23 Rx Allergies Allergy/AdvReac Type Severity Reaction Status Date / Time gluten AdvReac Nausea & Verified 02/24/23 11:40 Vomiting & Diarrhea, bloating Physical Exam Vitals: Vital Signs Temp Pulse Pulse Resp BP BP Pulse Ox 02/24/23 08:00 74 21 02/24/23 07:00 98 F 74 21 113/72 97 02/24/23 01:24 98.1 F 80 16 134/82 96 02/23/23 22:49 82 18 135/94 97 02/23/23 20:29 98.3 F 97 18 139/87 98 Intake and Output 02/23/23 02/24/23 02/24/23 22:59 06:59 14:59 Intake Total 500 Balance 500 Intake: Oral 500 Other: # Voids 1 Weight 65.771 kg 65.771 kg Results 02/24/23 04:28 02/24/23 04:28 Cardiac Enzymes 02/23/23 02/24/23 Range/Units 20:33 04:28 AST 19 16 (14-36) U/L Coagulation 02/23/23 Range/Units 20:33 PT 11.5 (10.0-12.5) sec APTT 24.3 (22.0-30.0) sec Lipids 02/24/23 Range/Units 09:36 Triglycerides 197.00 H (0.00-149.00) mg/dL Cholesterol 114.00 (0.00-200.00) mg/dL HDL Cholesterol 35.80 L (40.00-60.00) mg/dL Cholesterol/HDL Ratio 3.18 Ratio CBC 02/23/23 02/24/23 Range/Units 20:33 04:28 WBC 9.2 8.0 (3.8-10.6) k/uL RBC 4.98 4.32 (3.80-5.40) m/uL Hgb 14.4 12.8 (11.4-16.0) gm/dL Hct 41.7 36.6 (34.0-46.0) % Plt Count 247 205 (150-450) k/uL Comprehensive Metabolic Panel 02/23/23 02/24/23 Range/Units 20:33 04:28 Sodium 138 137 (137-145) mmol/L Potassium 3.5 3.3 L (3.5-5.1) mmol/L Chloride 97 L 99 (98-107) mmol/L Carbon Dioxide 27 27 (22-30) mmol/L BUN 5 L 5 L (7-17) mg/dL Creatinine 0.40 L 0.38 L (0.52-1.04) mg/dL Glucose 281 H 319 H (74-99) mg/dL Calcium 9.5 8.3 L (8.4-10.2) mg/dL AST 19 16 (14-36) U/L ALT 18 15 (4-34) U/L Alkaline Phosphatase 87 68 (38-126) U/L Total Protein 7.7 6.0 L (6.3-8.2) g/dL Albumin 4.6 3.6 (3.5-5.0) g/dL Current Medications Generic Name Dose Route Start Last Admin Trade Name Freq PRN Reason Stop Dose Admin Amlodipine Besylate 5 mg 02/24/23 09:00 02/24/23 09:56 Amlodipine 5 Mg Tab PO 5 mg DAILY MAGALY Administration Aspirin 81 mg 02/24/23 09:00 02/24/23 09:56 Aspirin 81 Mg PO 81 mg DAILY MAGALY Administration Atorvastatin Calcium 80 mg 02/24/23 21:00 Atorvastatin 80 Mg Tab PO HS [facility] Cilostazol 50 mg 02/24/23 09:00 02/24/23 11:06 Cilostazol 100 Mg Tab PO 50 mg BID MAGALY Administration Clopidogrel Bisulfate 75 mg 02/24/23 09:00 02/24/23 09:56 Clopidogrel 75 Mg Tab PO 75 mg DAILY MAGALY Administration Dextrose/Water 25 ml 02/24/23 12:31 Dextrose 50% Syringe 50 Ml IVP PER PROTOCOL PRN Hypoglycemia Protocol Dextrose/Water 50 ml 02/24/23 12:31 Dextrose 50% Syringe 50 Ml IVP PER PROTOCOL PRN Hypoglycemia Protocol Hydromorphone HCl 1 mg 02/23/23 23:22 02/24/23 06:38 Hydromorphone 1 Mg/Ml 1 Ml Syringe IVP 1 mg Q3HR PRN Administration Severe Pain (Scale 7 to 10) Sodium Chloride 1,000 mls @ 75 mls/hr 02/23/23 23:30 02/24/23 00:08 Saline 0.9% IV 75 mls/hr .[id number] MAGALY Administration Vancomycin HCl 1,250 mg/ 250 mls @ 125 mls/hr 02/24/23 09:00 02/24/23 09:49 Sodium Chloride IVPB 125 mls/hr Q8HR MAGALY Administration Ampicillin Sodium/Sulbactam 100 mls @ 200 mls/hr 02/24/23 12:00 02/24/23 12:51 Sodium 3 gm/ Sodium Chloride IVPB 200 mls/hr Q6HR MAGALY Administration Protocol Insulin Aspart 0 unit 02/24/23 12:42 02/24/23 12:51 Insulin Aspart (Novolog) 100 Unit/Ml Vial SQ 15 unit ACHS MAGALY Administration Protocol Loperamide HCl 2 mg 02/24/23 13:45 Loperamide 2 Mg Cap PO QID [facility] Miscellaneous Information 0 each 02/25/23 07:00 Vancomycin Trough Due 1 Each Misc MISCELLANE 02/25/23 07:01 DIRECTED ONE Naloxone HCl 0.2 mg 02/23/23 23:22 Naloxone 0.4 Mg/Ml 1 Ml Vial IV Q2M PRN Opioid Reversal Ondansetron HCl 4 mg 02/23/23 23:22 Ondansetron 4 Mg/2 Ml Vial IVP Q8HR PRN Nausea And Vomiting Intake and Output 02/23/23 02/24/23 02/24/23 22:59 06:59 14:59 Intake Total 500 Balance 500 Intake: Oral 500 Other: # Voids 1 Weight 65.771 kg 65.771 kg 02/24/23 04:28 02/24/23 04:28
--- NOTE | 2023-02-24 15:01 | P.HPIM ---
History of Present Illness H&P Date: 02/24/23 History of present illness; patient is a 62-year-old lady with past medical his tory significant for hypertension, diabetes mellitus, hyperlipidemia , diabetic ulcer present the ER for evaluation of left foot wounds. Patient was recently discharged from the hospital on oral antibiotics after being seen by vascular surgery and ID during the last admission. Patient has left big toe diabetic foot infection with necrosis of the left big toe, vascular surgery recommend medical management. Patient stated that when she was discharged she noticed on getting home that there was new ulcer forming on the left fifth toe. Patient denied any complaint of any pain in the foot. There was no complain of fever or chills. There was no complain of lethargy or weakness. Patient did notice any change in the color of his feet. Because of new ulcer, patient came back to the ER Initial lab work done in the ER showed WBC 9.2, hemoglobin 14.4, platelet count 247, sodium 138, potassium 3.5, BUN 5, creatinine 0.4, glucose 281 lactate 1.4 Patient admitted to internal medicine service REVIEW OF SYSTEMS: CONSTITUTIONAL: No fever, no malaise, no fatigue. HEENT: No recent visual problems or hearing problems. Denied any sore throat. CARDIOVASCULAR: No chest pain, orthopnea, PND, no palpitations, no syncope. PULMONARY: No shortness of breath, no cough, no hemoptysis. GASTROINTESTINAL: No diarrhea, no nausea, no vomiting, no abdominal pain. NEUROLOGICAL: No headaches, no weakness, no numbness. HEMATOLOGICAL: Denies any bleeding or petechiae. GENITOURINARY: Denies any burning micturition, frequency, or urgency. MUSCULOSKELETAL/RHEUMATOLOGICAL: As mentioned above ENDOCRINE: Denies any polyuria or polydipsia. The rest of the 14-point review of systems is negative. PHYSICAL EXAMINATION: GENERAL: The patient is alert and oriented x3, not in any acute distress. Well developed, well nourished. HEENT: Pupils are round and equally reacting to light. EOMI. No scleral icterus. No conjunctival pallor. Normocephalic, atraumatic. No pharyngeal erythema. No thyromegaly. CARDIOVASCULAR: S1 and S2 present. No murmurs, rubs, or gallops. PULMONARY: Chest is clear to auscultation, no wheezing or crackles. ABDOMEN: Soft, nontender, nondistended, normoactive bowel sounds. No palpable organomegaly. MUSCULOSKELETAL: Left foot bandaged seen, ulcer present on left fifth toe and left big toe EXTREMITIES: No cyanosis, clubbing, or pedal edema. NEUROLOGICAL: Gross neurological examination did not reveal any focal deficits. SKIN: No rashes. Assessment and plan Left foot diabetic ulcer Hypertension Insulin-dependent diabetes mellitus Hyperlipidemia Peripheral artery disease History of multiple bilateral lower extremity stents placed by Dr. Cruz Monitor vital signs Monitor CBC Monitor CMP Continue telemetry monitoring follow-up on blood cultures Continue wound care Continue IV Unasyn and vancomycin Monitor blood sugar levels, continue sliding scale insulin Consulted ID consulted cardiology for evaluation for peripheral artery disease Labs and medication were reviewed.. Continue same treatment. Continue with symptomatic treatment. Resume home medication. Monitor labs and vitals. DVT and GI prophylaxis. Further recommendations as per clinical course of the pa mian Dictation was produced using [employer] dictation software. please excuse any grammatical, word or spelling errors. Past Medical History Past Medical History: CVA/TIA, Diabetes Mellitus, GERD/Reflux, Hyperlipidemia, Hypertension, Myocardial Infarction ([place]), Vascular Disorder Additional Past Medical History / Comment(s): 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 , unsteady gait., see [facility] Last Myocardial Infarction Date:: february 2017 History of Any Multi-Drug Resistant Organisms: None Reported Past Surgical History: Back Surgery, Cholecystectomy, Heart Catheterization With Stent, Orthopedic Surgery Additional Past Surgical History / Comment(s): Right 5th toe amputation, lumbar fusion, spinal cord stimulator in place but not working., left knee arthroscopy, EGD, PATRICIA, 3 cardiac stents, Aortoram, stent to left iliac artery. , stent right leg above the knee, right 4th toe amputation. Past Anesthesia/Blood Transfusion Reactions: No Reported Reaction Additional Past Anesthesia/Blood Transfusion Reaction / Comment(s): . Date of Last Stent Placement:: 12/14/2021 Past Psychological History: Anxiety Additional Psychological History / Comment(s): . Smoking Status: Current every day smoker Past Alcohol Use History: None Reported Additional Past Alcohol Use History / Comment(s): Started smoking in 1989, smokes 1/2 pack / day. Past Drug Use History: None Reported - Past Family History Father Family Medical History: Cancer, Liver Disease Additional Family Medical History / Comment(s): Idiopathic cirrhosis of liver, Liver Cancer. Mother Family Medical History: Coronary Artery Disease (CAD), Myocardial Infarction ([place]) Additional Family Medical History / Comment(s): Multiple stents. Mother at the age of 77 or 78 from [place]. Medications and Allergies Home Medications Medication Instructions Recorded Confirmed Type Atorvastatin [Lipitor] 80 mg PO HS 06/26/16 02/24/23 History Aspirin 81 mg PO DAILY 10/08/17 02/24/23 History Clopidogrel [Plavix] 75 mg PO DAILY 30 Days #30 tab 01/05/21 02/24/23 Rx Insulin NPH Hum/Reg Insulin Hm See Protocol SQ ACHS 02/17/23 02/24/23 History [NovoLIN 70-30 100 Unit/ml Vial] Doxycycline Hyclate 100 mg PO BID 10 Days #20 tab 02/22/23 02/24/23 Rx amLODIPine [Norvasc] 5 mg PO DAILY #30 tab 02/22/23 02/24/23 Rx cilostazoL [Pletal] 50 mg PO BID #60 tab 02/22/23 02/24/23 Rx Allergies Allergy/AdvReac Type Severity Reaction Status Date / Time gluten AdvReac Nausea & Verified 02/24/23 11:40 Vomiting & Diarrhea, bloating Physical Exam Vitals: Vital Signs Temp Pulse Pulse Resp BP BP Pulse Ox 02/24/23 08:00 74 21 02/24/23 07:00 98 F 74 21 113/72 97 02/24/23 01:24 98.1 F 80 16 134/82 96 02/23/23 22:49 82 18 135/94 97 02/23/23 20:29 98.3 F 97 18 139/87 98 Intake and Output 02/23/23 02/24/23 02/24/23 22:59 06:59 14:59 Intake Total 500 Balance 500 Intake: Oral 500 Other: # Voids 1 Weight 65.771 kg 65.771 kg Results CBC & Chem 7: 02/24/23 04:28 02/24/23 04:28 Labs: Abnormal Lab Results - Last 24 Hours (Table) 02/23/23 02/24/23 02/24/23 Range/Units 20:33 04:28 06:24 Potassium 3.3 L (3.5-5.1) mmol/L Chloride 97 L (98-107) mmol/L BUN 5 L 5 L (7-17) mg/dL Creatinine 0.40 L 0.38 L (0.52-1.04) mg/dL Glucose 281 H 319 H (74-99) mg/dL POC Glucose (mg/dL) 352 H (70-110) mg/dL Calcium 8.3 L (8.4-10.2) mg/dL Total Protein 6.0 L (6.3-8.2) g/dL 02/24/23 Range/Units 12:04 Potassium (3.5-5.1) mmol/L Chloride (98-107) mmol/L BUN (7-17) mg/dL Creatinine (0.52-1.04) mg/dL Glucose (74-99) mg/dL POC Glucose (mg/dL) 385 H (70-110) mg/dL Calcium (8.4-10.2) mg/dL Total Protein (6.3-8.2) g/dL
[2023-02-24] MEDS: LOPERAMIDE 2 MG CAP PO SCH ×3 (15:08→19:55)
[2023-02-24 17:10] LABS: Glucose,Whole Blood 212 mg/dL (70-110)
[2023-02-24] MEDS ORDERED: INSULIN ASPART (NovoLOG) 100 UNIT/ML VIAL SQ SCH (17:30)
[2023-02-24] MEDS: ATORVASTATIN 80 MG TAB PO SCH (19:55)
[2023-02-24 21:04] LABS: Glucose,Whole Blood 260 mg/dL (70-110)
[2023-02-24] MEDS: ALPRAZolam 0.5 MG TAB PO PRN (21:38)
[2023-02-25] MEDS: AMPICILLIN-SULBACTAM 3 GM in SODIUM CHLORIDE 0.9% 100 ML IVPB SCH ×4 (00:40→18:48)
[2023-02-25] MEDS: VANCOMYCIN 1,250 MG in SODIUM CHLORIDE 0.9% 250 ML IVPB SCH ×3 (00:41→15:59)
[2023-02-25] MEDS: HYDROmorphone 1 MG/ML 1 ML SYRINGE IVP PRN ×5 (01:27→19:58)
[2023-02-25] MEDS: SODIUM CHLORIDE 0.9% 1,000 ML IV SCH ×2 (01:32→16:00)
[2023-02-25] MEDS: ONDANSETRON 4 MG/2 ML VIAL IVP PRN (01:32)
[2023-02-25 06:03] LABS: Glucose,Whole Blood 326 mg/dL (70-110)
[2023-02-25] MEDS: INSULIN ASPART (NovoLOG) 100 UNIT/ML VIAL SQ SCH ×5 (06:10→20:57)
[2023-02-25] MEDS ORDERED: VANCOMYCIN TROUGH DUE 1 EACH MISC MISCELLANE ONE (07:00)
[2023-02-25] MEDS: ASPIRIN 81 MG PO SCH (08:16)
[2023-02-25] MEDS: amLODIPine 5 MG TAB PO SCH (08:16)
[2023-02-25] MEDS: CLOPIDOGREL 75 MG TAB PO SCH (08:18)
[2023-02-25] MEDS: cilostazoL 100 MG TAB PO SCH ×2 (08:26→19:58)
[2023-02-25] MEDS: LOPERAMIDE 2 MG CAP PO SCH ×3 (08:26→18:48)
[2023-02-25 11:19] LABS: ALT 16 U/L (4-34); AST 19 U/L (14-36); African American GFR (CKD) >90 (>60 ml/min/1.73 sqM); Albumin 3.2 g/dL (3.5-5.0); Albumin/Globulin Ratio 1.3; Alkaline Phosphatase 63 U/L (38-126); Anion Gap 11 mmol/L; Blood Urea Nitrogen 4 mg/dL (7-17); Calcium 8.4 mg/dL (8.4-10.2); Carbon Dioxide 25 mmol/L (22-30); Chloride 103 mmol/L (98-107); Globulin 2.4 g/dL; Glucose 265 mg/dL (74-99); Non-African American GFR(CKD) >90 (>60 ml/min/1.73 sqM); Potassium 3.5 mmol/L (3.5-5.1); Sodium 139 mmol/L (137-145); Total Bilirubin 0.3 mg/dL (0.2-1.3); Total Protein 5.6 g/dL (6.3-8.2)
[2023-02-25 11:46] LABS: Basophils % (A) 0 %; Eosinophils # (A) 0.2 k/uL (0-0.7); Eosinophils % (A) 3 %; HGB 12.3 gm/dL (11.4-16.0); Lymphocytes # (A) 1.4 k/uL (1.0-4.8); Lymphocytes % (A) 20 %; MCH 29.6 pg (25.0-35.0); MCHC 34.1 g/dL (31.0-37.0); MCV 86.8 fL (80.0-100.0); Mean Platelet Volume 7.7; Monocytes # (A) 0.3 k/uL (0-1.0); Monocytes % (A) 5 %; Neutrophils # (A) 5.1 k/uL (1.3-7.7); Neutrophils % (A) 71 %; Platelet Count 197 k/uL (150-450); Poikilocytosis Slight; RBC 4.15 m/uL (3.80-5.40); RDW 14.4 % (11.5-15.5); WBC 7.2 k/uL (3.8-10.6)
[2023-02-25 12:10] LABS: Glucose,Whole Blood 341 mg/dL (70-110)
--- NOTE | 2023-02-25 12:34 | P.PN ---
Subjective Progress Note Date: 02/25/23 This is Harrison Ni NP, I'm dictating on behalf of Dr. Boyle's H&P and A&P. Patient was interviewed and examined. Patient is a pleasant 62-year-old female who presented to the hospital with left foot ulcers with infection and gangrene. Patient has known PAD, and sees Dr. Cruz. This morning patient reports pain in her left leg. She states otherwise she is feeling okay. The pain is mostly when she walks, demonstrating intermittent claudication secondary to her known vascular disease. GENERAL: Well-appearing, well-nourished and in no acute distress. NECK: Supple without JVD or thyromegaly. LUNGS: Breath sounds clear to auscultation bilaterally. Respiration equal and unlabored. No wheezes, rales or rhonchi. HEART: Regular rate and rhythm without murmurs, rubs or gallops. S1 and S2 hea rd. EXTREMITIES: Normal range of motion, no edema. No clubbing or cyanosis. Peripheral pulses intact and strong. VITALS: Temp 98.0, pulse 79, respirations 20, blood pressure 107/61, O2 saturation 95% on room air TELEMETRY: Regular rate and rhythm per auscultation LABS: White count 7.2, hemoglobin 12.3, platelets 197, sodium 139, potassium 3.5, BUN 4, creatinine 0.38, calcium 8.4, triglycerides 197, cholesterol 114, LDL 38.8, HDL 35.8 IMPRESSION: 1. Acute infected left foot and toe ulcers secondary to PAD. 2. History of multiple bilateral lower extremity stents placed by Dr. Cruz 3. Diabetes 4. Hyperlipidemia 5. Hypertension PLAN: Continue current medications as prescribed. Dr. Cruz to see patient tomorrow morning. Further recommendations based on patient's clinical course. Objective - Vital Signs Vital signs: Vital Signs Temp 98 F 02/25/23 07:00 Pulse 79 02/25/23 07:00 Resp 20 02/25/23 07:00 BP 107/61 02/25/23 07:00 Pulse Ox 95 02/25/23 07:00 FiO2 Intake & Output 02/24/23 02/25/23 02/25/23 18:59 06:59 18:59 Intake Total 500 500 Balance 500 500 Intake: Oral 500 500 Other: # Voids 4 1 # Bowel Movements 4 - Labs CBC & Chem 7: 02/25/23 11:09 02/25/23 07:28 Labs: Abnormal Lab Results - Last 24 Hours (Table) 02/24/23 02/24/23 02/24/23 Range/Units 09:36 09:36 17:04 BUN (7-17) mg/dL Creatinine (0.52-1.04) mg/dL Glucose (74-99) mg/dL POC Glucose (mg/dL) 212 H (70-110) mg/dL Hemoglobin A1c 9.9 H (<=6.0) % Total Protein (6.3-8.2) g/dL Albumin (3.5-5.0) g/dL Triglycerides 197.00 H (0.00-149.00) mg/dL HDL Cholesterol 35.80 L (40.00-60.00) mg/dL 02/24/23 02/25/23 02/25/23 Range/Units 21:01 06:01 07:28 BUN 4 L (7-17) mg/dL Creatinine 0.38 L (0.52-1.04) mg/dL Glucose 265 H (74-99) mg/dL POC Glucose (mg/dL) 260 H 326 H (70-110) mg/dL Hemoglobin A1c (<=6.0) % Total Protein 5.6 L (6.3-8.2) g/dL Albumin 3.2 L (3.5-5.0) g/dL Triglycerides (0.00-149.00) mg/dL HDL Cholesterol (40.00-60.00) mg/dL 02/25/23 Range/Units 12:08 BUN (7-17) mg/dL Creatinine (0.52-1.04) mg/dL Glucose (74-99) mg/dL POC Glucose (mg/dL) 341 H (70-110) mg/dL Hemoglobin A1c (<=6.0) % Total Protein (6.3-8.2) g/dL Albumin (3.5-5.0) g/dL Triglycerides (0.00-149.00) mg/dL HDL Cholesterol (40.00-60.00) mg/dL
--- NOTE | 2023-02-25 16:09 | P.PN ---
Subjective Progress Note Date: 02/25/23 patient is a 62-year-old lady with past medical history significant for hypertension, diabetes mellitus, hyperlipidemia , diabetic ulcer present the ER for evaluation of left foot wounds. Patient was recently discharged from the hospital on oral antibiotics after being seen by vascular surgery and ID during the last admission. Patient has left big toe diabetic foot infection with necrosis of the left big toe, vascular surgery recommend medical management. Patient stated that when she was discharged she noticed on getting home that there was new ulcer forming on the left fifth toe. Patient denied any complaint of any pain in the foot. There was no complain of fever or chills. There was no complain of lethargy or weakness. Patient did notice any change in the color of his feet. Because of new ulcer, patient came back to the ER Initial lab work done in the ER showed WBC 9.2, hemoglobin 14.4, platelet count 247, sodium 138, potassium 3.5, BUN 5, creatinine 0.4, glucose 281 lactate 1.4 Patient admitted to internal medicine service 02/25. Patient seen and examined. No acute issues overnight. Blood sugars are elevated. Denies any pain in left foot. Vital signs stable REVIEW OF SYSTEMS: CONSTITUTIONAL: No fever, no malaise,. CARDIOVASCULAR: No chest pain, no palpitations, no syncope. PULMONARY: No shortness of breath, no cough, GASTROINTESTINAL: No diarrhea, no nausea, no vomiting, no abdominal pain. NEUROLOGICAL: No headaches, no weakness, PHYSICAL EXAMINATION: GENERAL: The patient is alert and oriented x3, not in any acute distress. Well developed, well nourished. HEENT: Pupils are round and equally reacting to light. EOMI. No scleral icterus. No conjunctival pallor. Normocephalic, atraumatic. No pharyngeal erythema. No thyromegaly. CARDIOVASCULAR: S1 and S2 present. No murmurs, rubs, or gallops. PULMONARY: Chest is clear to auscultation, no wheezing or crackles. ABDOMEN: Soft, nontender, nondistended, normoactive bowel sounds. No palpable organomegaly. MUSCULOSKELETAL: ulcer present on left fifth toe and left big toe EXTREMITIES: No cyanosis, clubbing, or pedal edema. NEUROLOGICAL: Gross neurological examination did not reveal any focal deficits. SKIN: No rashes. Assessment and plan Left foot diabetic ulcer Hypertension Insulin-dependent diabetes mellitus Hyperlipidemia Peripheral artery disease History of multiple bilateral lower extremity stents placed by Dr. Cruz Monitor vital signs Monitor CBC Monitor CMP Continue telemetry monitoring follow-up on blood cultures Continue wound care Continue IV Unasyn and vancomycin Monitor blood sugar levels, continue sliding scale insulin, start Lantus 5 units twice a day ID following Cardiology following Labs and medication were reviewed.. Continue same treatment. Continue with symptomatic treatment. Resume home medication. Monitor labs and vitals. DVT and GI prophylaxis. Further recommendations as per clinical course of the patient Dictation was produced using [employer] dictation software. please excuse any grammatical, word or spelling errors. Objective - Vital Signs Vital signs: Vital Signs Temp 98.1 F 02/25/23 15:00 Pulse 77 02/25/23 15:00 Resp 22 02/25/23 15:00 BP 103/63 02/25/23 15:00 Pulse Ox 95 02/25/23 15:00 FiO2 Intake & Output 02/24/23 02/25/23 02/25/23 18:59 06:59 18:59 Intake Total 500 1000 Balance 500 1000 Intake: Oral 500 1000 Other: # Voids 4 1 1 # Bowel Movements 4 - Labs CBC & Chem 7: 02/25/23 11:09 02/25/23 07:28 Labs: Abnormal Lab Results - Last 24 Hours (Table) 02/24/23 02/24/23 02/25/23 Range/Units 17:04 21:01 06:01 BUN (7-17) mg/dL Creatinine (0.52-1.04) mg/dL Glucose (74-99) mg/dL POC Glucose (mg/dL) 212 H 260 H 326 H (70-110) mg/dL Hemoglobin A1c (<=6.0) % Total Protein (6.3-8.2) g/dL Albumin (3.5-5.0) g/dL 02/25/23 02/25/23 02/25/23 Range/Units 07:28 07:28 12:08 BUN 4 L (7-17) mg/dL Creatinine 0.38 L (0.52-1.04) mg/dL Glucose 265 H (74-99) mg/dL POC Glucose (mg/dL) 341 H (70-110) mg/dL Hemoglobin A1c 9.6 H (<=6.0) % Total Protein 5.6 L (6.3-8.2) g/dL Albumin 3.2 L (3.5-5.0) g/dL
[2023-02-25 18:48] LABS: Glucose,Whole Blood 296 mg/dL (70-110)
[2023-02-25] MEDS: ATORVASTATIN 80 MG TAB PO SCH (19:58)
[2023-02-25] MEDS: ALPRAZolam 0.5 MG TAB PO PRN (20:52)
[2023-02-25 20:57] LABS: Glucose,Whole Blood 245 mg/dL (70-110)
[2023-02-25] MEDS: INSULIN DETEMIR (LEVEMIR) 100 UNIT/ML SYR SQ SCH (20:57)
--- NOTE | 2023-02-25 23:09 | P.CONS ---
History of Present Illness - Reason for Consult Consult date: 02/24/23 Left foot toe gangrene Requesting physician: Chris Garcia - Chief Complaint Pain and discoloration of the left fifth toe x 1 day - History of Present Illness Patient is a 62-year-old female with a past medical history of Diabetes mellitus hypertension hyperlipidemia [place] reflux the patient was recently admitted to this facility and did have a left big toe medial aspect gangrene and cellulitis patient was evaluated by vascular surgery however recommended evaluation by cardiology as apparently the patient did have a PAD and possible percutaneous vascular intervention that was not completed during this hospital stay she was treated with IV vancomycin culture were negative and the patient was discharged home on doxycycline patient mention when she took the dressing off her foot she noticed to having blackish discoloration of her left fifth toe with associated pain and swelling patient describing pain to be mostly sharp, moderate to severe intensity and without any radiation denies any foul-smelling drainage or high-grade fever with the symptoms the patient presented back to the hospital on arrival to the ER the patient was afebrile no fever has been recorded subsequently patient was not tachycardic hypotensive or hypoxic patient did have white count 9.2 creatinine was 0.38 liver enzymes are normal patient was started on vancomycin admitted to the hospital infectious disease was consulted for further management of antibiotic therapy Review of Systems Positive point and negatives has been mentioned in the HPI, complete review of systems was performed and all other systems are negative Past Medical History Past Medical History: CVA/TIA, Diabetes Mellitus, GERD/Reflux, Hyperlipidemia, Hypertension, Myocardial Infarction ([place]), Vascular Disorder Additional Past Medical History / Comment(s): 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 , unsteady gait., see [facility] Last Myocardial Infarction Date:: february 2017 History of Any Multi-Drug Resistant Organisms: None Reported Past Surgical History: Back Surgery, Cholecystectomy, Heart Catheterization With Stent, Orthopedic Surgery Additional Past Surgical History / Comment(s): Right 5th toe amputation, lumbar fusion, spinal cord stimulator in place but not working., left knee arthroscopy, EGD, PATRICIA, 3 cardiac stents, Aortoram, stent to left iliac artery. , stent right leg above the knee, right 4th toe amputation. Past Anesthesia/Blood Transfusion Reactions: No Reported Reaction Additional Past Anesthesia/Blood Transfusion Reaction / Comm: . Date of Last Stent Placement:: 12/14/2021 Past Psychological History: Anxiety Additional Psychological History / Comment(s): . Smoking Status: Current every day smoker Past Alcohol Use History: None Reported Additional Past Alcohol Use History / Comment(s): Started smoking in 1989, smokes 1/2 pack / day. Past Drug Use History: None Reported - Past Family History Father Family Medical History: Cancer, Liver Disease Additional Family Medical History / Comment(s): Idiopathic cirrhosis of liver, Liver Cancer. Mother Family Medical History: Coronary Artery Disease (CAD), Myocardial Infarction ([place]) Additional Family Medical History / Comment(s): Multiple stents. Mother at the age of 77 or 78 from [place]. Medications and Allergies Home Medications Medication Instructions Recorded Confirmed Type Atorvastatin [Lipitor] 80 mg PO HS 06/26/16 02/24/23 History Aspirin 81 mg PO DAILY 10/08/17 02/24/23 History Clopidogrel [Plavix] 75 mg PO DAILY 30 Days #30 tab 01/05/21 02/24/23 Rx Insulin NPH Hum/Reg Insulin Hm See Protocol SQ ACHS 02/17/23 02/24/23 History [NovoLIN 70-30 100 Unit/ml Vial] Doxycycline Hyclate 100 mg PO BID 10 Days #20 tab 02/22/23 02/24/23 Rx amLODIPine [Norvasc] 5 mg PO DAILY #30 tab 02/22/23 02/24/23 Rx cilostazoL [Pletal] 50 mg PO BID #60 tab 02/22/23 02/24/23 Rx Allergies Allergy/AdvReac Type Severity Reaction Status Date / Time gluten AdvReac Nausea & Verified 02/24/23 11:40 Vomiting & Diarrhea, bloating Physical Exam Vitals: Vital Signs Temp Pulse Pulse Resp BP BP Pulse Ox 02/24/23 07:00 98 F 74 21 113/72 97 02/24/23 01:24 98.1 F 80 16 134/82 96 02/23/23 22:49 82 18 135/94 97 02/23/23 20:29 98.3 F 97 18 139/87 98 Intake and Output 02/23/23 02/24/23 02/24/23 22:59 06:59 14:59 Other: # Voids 1 Weight 65.771 kg 65.771 kg GENERAL DESCRIPTION: Middle-aged female lying in bed, no distress. No tachypnea or accessory muscle of respiration use. HEENT: Shows Pallor , no scleral icterus. Oral mucous membrane is dry. No pharyngeal erythema or thrush NECK: Trachea central, no thyromegaly. LUNGS: Unlabored breathing. Clear to auscultation anteriorly. No wheeze or crackle. HEART: S1, S2, regular rate and rhythm. No loud murmur ABDOMEN: Soft, no tenderness , guarding or rigidity, no organomegaly EXTREMITIES: Patient did have discoloration of the left fifth toe as well as the medial aspect of the left big toe with some swelling redness but no foul- smelling drainage SKIN: No rash, no masses palpable. NEUROLOGICAL: The patient is awake, alert, oriented x3, mood and affect normal. Results CBC & Chem 7: 03/04/23 05:32 03/05/23 07:35 Labs: Abnormal Lab Results - Last 24 Hours (Table) 02/23/23 02/24/23 02/24/23 Range/Units 20:33 04:28 06:24 Potassium 3.3 L (3.5-5.1) mmol/L Chloride 97 L (98-107) mmol/L BUN 5 L 5 L (7-17) mg/dL Creatinine 0.40 L 0.38 L (0.52-1.04) mg/dL Glucose 281 H 319 H (74-99) mg/dL POC Glucose (mg/dL) 352 H (70-110) mg/dL Calcium 8.3 L (8.4-10.2) mg/dL Total Protein 6.0 L (6.3-8.2) g/dL Assessment and Plan (1) Gangrene of toe of left foot Status: Acute Code(s): I96 - GANGRENE, NOT ELSEWHERE CLASSIFIED SNOMED Code(s): 03857719170122846 (2) Cellulitis of left foot Status: Acute Code(s): L03.116 - CELLULITIS OF LEFT LOWER LIMB SNOMED Co de(s): 35210788268241634 (3) Diabetic foot infection Status: Acute Code(s): E11.628 - TYPE 2 DIABETES MELLITUS WITH OTHER SKIN COMPLICATIONS; L08.9 - LOCAL INFECTION OF THE SKIN AND SUBCUTANEOUS TISSUE, UNSP SNOMED Code(s): 248098711 Plan: 1patient with left diabetic foot infection in this patient who initially presented with left big toe medial side necrotic changes and cellulitis now presenting with left fifth toe gangrene and cellulitis highly clinically suspicious for ischemia to be the likely etiology 2-cardiology has been consulted for possible angiogram and further workup 3-we will continue the patient on vancomycin pharmacy to dose however we will add Unasyn 3 g every 6 hours and monitor her kidney function closely We will follow on clinical condition and cultures to further adjust medication if needed Thank you for this consultation we will follow the patient along with you Dictation was produced using [employer] dictation software. please excuse any grammatical, word or spelling errors. Time with Patient: Greater than 30
--- NOTE | 2023-02-25 23:13 | P.PN ---
Subjective Progress Note Date: 02/25/23 Principal diagnosis: Reason for follow-up is left big toe and fifth toe gangrene and cellulitis Patient is a 62-year-old female with a past medical history of pain for diabetes mellitus hypertension hyperlipidemia reflux recent [facility] in the left big toe medial side necrotic wound now presenting back to the hospital with left fifth toe gangrene and cellulitis along with the left big toe medial aspect necrotic wound On today's evaluation that is 02/25/2023 patient denies having any fever or any chills patient is recommending of pain to the left fifth and big toe moderate intensity without any radiation surrounding swelling redness slightly decreased there is no drainage denies any chest pain shortness of breath or cough no abdominal pain or diarrhea. Patient did have white count was 7.2, creatinine 0.38 Objective - Vital Signs Vital signs: Vital Signs Temp 98.1 F 02/25/23 15:00 Pulse 77 02/25/23 15:00 Resp 22 02/25/23 15:00 BP 103/63 02/25/23 15:00 Pulse Ox 95 02/25/23 15:00 FiO2 Intake & Output 02/24/23 02/25/23 02/25/23 18:59 06:59 18:59 Intake Total 500 1000 Balance 500 1000 Intake: Oral 500 1000 Other: # Voids 4 1 1 # Bowel Movements 4 - Exam GENERAL DESCRIPTION: An middle-aged female lying in bed in no distress RESPIRATORY SYSTEM: Unlabored breathing , decreased breath sounds at bases HEART: S1 S2 regular rate and rhythm , ABDOMEN: Soft , no tenderness EXTREMITIES: Left fifth toe with necrotic changes and a necrotic wound on the medial aspect of the left big toe. - Labs CBC & Chem 7: 02/25/23 11:09 02/25/23 07:28 Labs: Abnormal Lab Results - Last 24 Hours (Table) 02/24/23 02/25/23 02/25/23 Range/Units 21:01 06:01 07:28 BUN (7-17) mg/dL Creatinine (0.52-1.04) mg/dL Glucose (74-99) mg/dL POC Glucose (mg/dL) 260 H 326 H (70-110) mg/dL Hemoglobin A1c 9.6 H (<=6.0) % Total Protein (6.3-8.2) g/dL Albumin (3.5-5.0) g/dL 02/25/23 02/25/23 Range/Units 07:28 12:08 BUN 4 L (7-17) mg/dL Creatinine 0.38 L (0.52-1.04) mg/dL Glucose 265 H (74-99) mg/dL POC Glucose (mg/dL) 341 H (70-110) mg/dL Hemoglobin A1c (<=6.0) % Total Protein 5.6 L (6.3-8.2) g/dL Albumin 3.2 L (3.5-5.0) g/dL Assessment and Plan (1) Cellulitis of left foot Current Visit: Yes Status: Acute Code(s): L03.116 - CELLULITIS OF LEFT LOWER LIMB SNOMED Code(s): 41252325360584849 (2) Diabetic ulcer of toe of left foot Current Visit: Yes Status: Acute Code(s): E11.621 - TYPE 2 DIABETES MELLITUS WITH FOOT ULCER; L97.529 - NON-PRESSURE CHRONIC ULCER OTH PRT LEFT FOOT W UNSP SEVERITY SNOMED Code(s): 867194249 Plan: 1patient with left diabetic foot infection in this patient who initially presented with left big toe medial side necrotic changes and cellulitis now presenting with left fifth toe gangrene and cellulitis highly clinically suspicious for ischemia to be the likely etiology 2currently waiting for cardiac intervention and will benefit from vascular surgery evaluation 3-patient to continue with vancomycin and Unasyn while watching kidney function closely 4-dry protective dressing Dictation was produced using [employer] dictation software. please excuse any grammatical, word or spelling errors.
[2023-02-26] MEDS: VANCOMYCIN 1,250 MG in SODIUM CHLORIDE 0.9% 250 ML IVPB SCH ×4 (00:04→23:20)
[2023-02-26] MEDS: AMPICILLIN-SULBACTAM 3 GM in SODIUM CHLORIDE 0.9% 100 ML IVPB SCH ×6 (00:04→18:37)
[2023-02-26] MEDS: LOPERAMIDE 2 MG CAP PO SCH ×5 (00:04→21:11)
[2023-02-26] MEDS: SODIUM CHLORIDE 0.9% 1,000 ML IV SCH ×2 (05:10→18:36)
[2023-02-26 06:01] LABS: Glucose,Whole Blood 320 mg/dL (70-110)
[2023-02-26] MEDS: INSULIN DETEMIR (LEVEMIR) 100 UNIT/ML SYR SQ SCH ×2 (06:14→21:11)
[2023-02-26] MEDS: INSULIN ASPART (NovoLOG) 100 UNIT/ML VIAL SQ SCH ×4 (06:15→21:12)
[2023-02-26 06:59] LABS: African American GFR (CKD) >90 (>60 ml/min/1.73 sqM); Non-African American GFR(CKD) >90 (>60 ml/min/1.73 sqM)
[2023-02-26] MEDS: cilostazoL 100 MG TAB PO SCH ×2 (08:10→21:11)
[2023-02-26] MEDS: CLOPIDOGREL 75 MG TAB PO SCH (08:11)
[2023-02-26] MEDS: ASPIRIN 81 MG PO SCH (08:11)
[2023-02-26] MEDS: amLODIPine 5 MG TAB PO SCH (08:11)
--- NOTE | 2023-02-26 09:11 | P.PN ---
Subjective Progress Note Date: 02/26/23 Patient was interviewed and examined. Patient is a pleasant 62-year-old female who presented to the hospital with left foot ulcers with infection and gangrene. Patient has known PAD, and sees Dr. Lock. This morning patient reports pain in her left leg. She states otherwise she is feeling okay. The pain is mostly when she walks, demonstrating intermittent claudication secondary to her known vascular disease. VITALS: Temp 98.0, pulse 79, respirations 20, blood pressure 107/61, O2 saturation 95% on room air TELEMETRY: Regular rate and rhythm per auscultation LABS: White count 7.2, hemoglobin 12.3, platelets 197, sodium 139, potassium 3.5, BUN 4, creatinine 0.38, calcium 8.4, triglycerides 197, cholesterol 114, LDL 38.8, HDL 35.8 02/26 Patient continues to have pain in the left leg. She also states her stomach is upset which he thinks is due to antibiotics. Vital signs have been stable with heart rate in the 70s, blood pressure 102/10632/79, pulse ox 93% on room air. Creatinine 0.37. Patient is plan to see Dr. Lock today. There is currently no plan for surgical intervention. Patient is maintained on Unasyn and vancomycin managed by Dr. Patricio. Blood sugars are running between 245 and 320. Hemoglobin A1c 9.6. GENERAL: Well-appearing, well-nourished and in no acute distress. NECK: Supple without JVD or thyromegaly. LUNGS: Breath sounds clear to auscultation bilaterally. Respiration equal and unlabored. No wheezes, rales or rhonchi. HEART: Regular rate and rhythm without murmurs, rubs or gallops. S1 and S2 heard. EXTREMITIES: Normal range of motion, no edema. No clubbing or cyanosis. Peripheral pulses intact and strong. IMPRESSION: 1. Acute infected left foot and toe ulcers secondary to PAD. 2. History of multiple bilateral lower extremity stents placed by Dr. Lock 3. Diabetes 4. Hyperlipidemia 5. Hypertension PLAN: Continue current medications as prescribed. Dr. Lock to see patient tomorrow morning. Further recommendations based on patient's clinical course. Nurse practitioner note has been reviewed, I agree with the documented findings and plan of care. Patient was seen and examined. Objective - Vital Signs Vital signs: Vital Signs Temp 98.1 F 02/26/23 07:20 Pulse 75 02/26/23 07:20 Resp 17 02/26/23 07:20 BP 144/79 02/26/23 07:20 Pulse Ox 93 L 02/26/23 07:20 FiO2 Intake & Output 02/25/23 02/26/23 02/26/23 18:59 06:59 18:59 Intake Total 1000 Balance 1000 Intake: Oral 1000 Other: # Voids 1 1 - Labs CBC & Chem 7: 02/25/23 11:09 02/26/23 05:41 Labs: Abnormal Lab Results - Last 24 Hours (Table) 02/25/23 02/25/23 02/25/23 Range/Units 07:28 07:28 12:08 BUN 4 L (7-17) mg/dL Creatinine 0.38 L (0.52-1.04) mg/dL Glucose 265 H (74-99) mg/dL POC Glucose (mg/dL) 341 H (70-110) mg/dL Hemoglobin A1c 9.6 H (<=6.0) % Total Protein 5.6 L (6.3-8.2) g/dL Albumin 3.2 L (3.5-5.0) g/dL 02/25/23 02/25/23 02/26/23 Range/Units 18:47 20:54 05:41 BUN (7-17) mg/dL Creatinine 0.37 L (0.52-1.04) mg/dL Glucose (74-99) mg/dL POC Glucose (mg/dL) 296 H 245 H (70-110) mg/dL Hemoglobin A1c (<=6.0) % Total Protein (6.3-8.2) g/dL Albumin (3.5-5.0) g/dL 02/26/23 Range/Units 06:00 BUN (7-17) mg/dL Creatinine (0.52-1.04) mg/dL Glucose (74-99) mg/dL POC Glucose (mg/dL) 320 H (70-110) mg/dL Hemoglobin A1c (<=6.0) % Total Protein (6.3-8.2) g/dL Albumin (3.5-5.0) g/dL
[2023-02-26 11:55] VITALS: BMI 22.0
[2023-02-26 12:25] LABS: Glucose,Whole Blood 343 mg/dL (70-110)
[2023-02-26] MEDS: HYDROmorphone 1 MG/ML 1 ML SYRINGE IVP PRN ×3 (13:10→21:12)
--- NOTE | 2023-02-26 13:27 | P.GSCN ---
History of Present Illness History of present illness: 62-year-old white female patient is known to us from the past patient has a left foot big toe scab and also involving the left foot fifth toe with some gangrene changes patient is an IV antibiotic under care of infectious disease. Patient has a long-standing history of peripheral vascular disease patient had a intervention done in the past by Dr. Cruz discuss with Dr. Cruz for angiogra phy and intervention 8 we've been using medihoney gel to the big toe and fifth toe on the scab Medical history of diabetes peripheral vascular disease On examination chest is clear first and second sound present ejection fraction is 40-50% abdomen is soft nontender femorals are 1+ left foot big toe fifth toe has a scab formation with some gangrene changes we'll continue with local wound care consult with Dr. 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 , unsteady gait., see [facility] Last Myocardial Infarction Date:: february 2017 History of Any Multi-Drug Resistant Organisms: None Reported Past Surgical History: Back Surgery, Cholecystectomy, Heart Catheterization With Stent, Orthopedic Surgery Additional Past Surgical History / Comment(s): Right 5th toe amputation, lumbar fusion, spinal cord stimulator in place but not working., left knee arthroscopy, EGD, PATRICIA, 3 cardiac stents, Aortoram, stent to left iliac artery. , stent right leg above the knee, right 4th toe amputation. Past Anesthesia/Blood Transfusion Reactions: No Reported Reaction Additional Past Anesthesia/Blood Transfusion Reaction / Comm: . Date of Last Stent Placement:: 12/14/2021 Past Psychological History: Anxiety Additional Psychological History / Comment(s): . Smoking Status: Current every day smoker Past Alcohol Use History: None Reported Additional Past Alcohol Use History / Comment(s): Started smoking in 1989, sm okes 1/2 pack / day. Past Drug Use History: None Reported - Past Family History Father Family Medical History: Cancer, Liver Disease Additional Family Medical History / Comment(s): Idiopathic cirrhosis of liver, Liver Cancer. Mother Family Medical History: Coronary Artery Disease (CAD), Myocardial Infarction ([place]) Additional Family Medical History / Comment(s): Multiple stents. Mother at the age of 77 or 78 from [place]. Medications and Allergies Home Medications Medication Instructions Recorded Confirmed Type Atorvastatin [Lipitor] 80 mg PO HS 06/26/16 02/24/23 History Aspirin 81 mg PO DAILY 10/08/17 02/24/23 History Clopidogrel [Plavix] 75 mg PO DAILY 30 Days #30 tab 01/05/21 02/24/23 Rx Insulin NPH Hum/Reg Insulin Hm See Protocol SQ ACHS 02/17/23 02/24/23 History [NovoLIN 70-30 100 Unit/ml Vial] Doxycycline Hyclate 100 mg PO BID 10 Days #20 tab 02/22/23 02/24/23 Rx amLODIPine [Norvasc] 5 mg PO DAILY #30 tab 02/22/23 02/24/23 Rx cilostazoL [Pletal] 50 mg PO BID #60 tab 02/22/23 02/24/23 Rx Allergies Allergy/AdvReac Type Severity Reaction Status Date / Time gluten AdvReac Nausea & Verified 02/24/23 11:40 Vomiting & Diarrhea, bloating Surgical - Exam Vital Signs Temp Pulse Resp BP Pulse Ox 98.3 F 97 18 139/87 98 02/23/23 20:29 02/23/23 20:29 02/23/23 20:29 02/23/23 20:29 02/23/23 20:29 Results - Labs 02/25/23 11:09 02/26/23 05:41 Abnormal Lab Results - Last 24 Hours (Table) 02/25/23 02/25/23 02/25/23 Range/Units 07:28 18:47 20:54 Creatinine (0.52-1.04) mg/dL POC Glucose (mg/dL) 296 H 245 H (70-110) mg/dL Hemoglobin A1c 9.6 H (<=6.0) % 02/26/23 02/26/23 02/26/23 Range/Units 05:41 06:00 12:23 Creatinine 0.37 L (0.52-1.04) mg/dL POC Glucose (mg/dL) 320 H 343 H (70-110) mg/dL Hemoglobin A1c (<=6.0) % Diabetes panel 02/25/23 02/26/23 Range/Units 07:28 05:41 Creatinine 0.37 L (0.52-1.04) mg/dL Hemoglobin A1c 9.6 H (<=6.0) % Pituitary panel 02/26/23 Range/Units 05:41 Creatinine 0.37 L (0.52-1.04) mg/dL Adrenal panel 02/26/23 Range/Units 05:41 Creatinine 0.37 L (0.52-1.04) mg/dL
[2023-02-26 17:07] LABS: Glucose,Whole Blood 324 mg/dL (70-110)
[2023-02-26] MEDS ORDERED: INSULIN DETEMIR (LEVEMIR) 100 UNIT/ML SYR SQ SCH (17:59)
[2023-02-26] MEDS ORDERED: DEXTROSE 50% SYRINGE 50 ML IVP PRN ×2 (18:01)
--- NOTE | 2023-02-26 18:18 | P.PN ---
Subjective Progress Note Date: 02/26/23 This is 62-year-old female with past medical history significant for PAD, multiple bilateral lower extremity stents placed by Dr. Cruz, diabetes mellitus and multiple other medical issues presented with cellulitis, necrotic changes, worsening infected left foot ulcers draining with gangrene. Maintained on IV antibiotics of vancomycin and Unasyn as per infectious disease. Creatinine 0.37. Afebrile. Denies sweats or chills. Reports chronic diarrhea. Reports pain with walking. Blood sugars uncontrolled, in the 300s, A1c 9.6. Vascular surgeon as well as Dr. Cruz consulted for further evaluation of left lower extremity. Denies any chest pain, palpitations or shortness of breath. O2 sats in the high 90s on room air. Objective - Vital Signs Vital signs: Vital Signs Temp 98.1 F 02/26/23 15:15 Pulse 83 02/26/23 15:15 Resp 17 02/26/23 15:15 BP 107/69 02/26/23 15:15 Pulse Ox 98 02/26/23 15:15 FiO2 Intake & Output 02/25/23 02/26/23 02/26/23 18:59 06:59 18:59 Intake Total 1000 418 Balance 1000 418 Weight 65.771 kg Intake: Oral 1000 418 Other: # Voids 1 1 3 # Bowel Movements 2 - Exam PHYSICAL EXAM: VITAL SIGNS: [As above] GENERAL: Alert and oriented 3, Sitting up in bed, no acute distress HEENT: Normocephalic ,Conjunctivae normal. eyes normal. MMM. NECK: Supple, No JVD. CARDIOVASCULAR: S1, S2 regular. No murmur RESPIRATION: Unlabored, Breath sounds diminished in the bases. No rhonchi or crackles. No bronchial breathing. ABDOMEN: Soft, nondistended, nontender . No guarding. no masses palpable. No ascites, No hepatosplenomegaly.Bowel sounds heard. LEGS: Left foot dressing clean dry and intact, positive DP pulse NERVOUS SYSTEM: Cranial N 2-12 grossly normal. Moves all 4 limbs. No focal deficits. Strength and sensation grossly intact. Skin: Warm and dry, no rash - Labs CBC & Chem 7: 02/25/23 11:09 02/26/23 05:41 Labs: Abnormal Lab Results - Last 24 Hours (Table) 02/25/23 02/25/23 02/26/23 Range/Units 18:47 20:54 05:41 Creatinine 0.37 L (0.52-1.04) mg/dL POC Glucose (mg/dL) 296 H 245 H (70-110) mg/dL 02/26/23 02/26/23 02/26/23 Range/Units 06:00 12:23 17:05 Creatinine (0.52-1.04) mg/dL POC Glucose (mg/dL) 320 H 343 H 324 H (70-110) mg/dL Assessment and Plan Assessment: Left foot diabetic ulcer with necrotic changes, cellulitis and gangrene, suspicious for ischemia, secondary to PAD Insulin-dependent diabetes mellitus, hyperglycemic, hemoglobin A1c 9.6 History of multiple bilateral lower extremity stents placed by Dr. Lock Hypertension Hyperlipidemia Plan: Continue on current medication regime ,monitoring and symptomatic treatment. Consistent carb diet. Lantus increased, pre-meal NovoLog insulin added in addition to NovoLog sliding scale. Close monitoring of blood sugars. Wound cultures. Wound care and Antibiotics as per infectious disease. Close monitoring of renal function with repeat Labs ordered for a.m. Evaluation and recommendations pending as per vascular surgery and Dr. Cruz regarding potential stents versus possible amputation. The impression and plan of care has been dictated as directed. : I performed a history and examination of this patient, discussed the same with the dictator. I agree with the dictator's note ,documented as a scribe. Any additional findings or plans will be noted.
[2023-02-26] MEDS: PANTOPRAZOLE 40 MG/10 ML VIAL IVP SCH (18:36)
[2023-02-26 20:43] LABS: Glucose,Whole Blood 284 mg/dL (70-110)
[2023-02-26] MEDS: ATORVASTATIN 80 MG TAB PO SCH (21:11)
[2023-02-26] MEDS: ALPRAZolam 0.5 MG TAB PO PRN (23:25)
[2023-02-27] MEDS: HYDROmorphone 1 MG/ML 1 ML SYRINGE IVP PRN ×4 (02:33→20:29)
[2023-02-27] MEDS: AMPICILLIN-SULBACTAM 3 GM in SODIUM CHLORIDE 0.9% 100 ML IVPB SCH ×3 (04:46→20:29)
[2023-02-27 05:31] LABS: Glucose,Whole Blood 219 mg/dL (70-110)
[2023-02-27] MEDS: INSULIN ASPART (NovoLOG) 100 UNIT/ML VIAL SQ SCH ×7 (05:32→21:27)
[2023-02-27] MEDS: SODIUM CHLORIDE 0.9% 1,000 ML IV SCH ×2 (05:33→21:27)
[2023-02-27 06:27] LABS: African American GFR (CKD) >90 (>60 ml/min/1.73 sqM); Non-African American GFR(CKD) >90 (>60 ml/min/1.73 sqM)
[2023-02-27] MEDS ORDERED: INSULIN DETEMIR (LEVEMIR) 100 UNIT/ML SYR SQ SCH (07:00)
[2023-02-27] MEDS: VANCOMYCIN 1,250 MG in SODIUM CHLORIDE 0.9% 250 ML IVPB SCH ×2 (08:44→16:43)
[2023-02-27] MEDS: PANTOPRAZOLE 40 MG/10 ML VIAL IVP SCH (08:46)
[2023-02-27] MEDS: cilostazoL 100 MG TAB PO SCH ×2 (08:46→20:29)
[2023-02-27] MEDS: ASPIRIN 81 MG PO SCH (08:46)
[2023-02-27] MEDS: CLOPIDOGREL 75 MG TAB PO SCH (08:46)
[2023-02-27] MEDS: LOPERAMIDE 2 MG CAP PO SCH ×4 (08:46→20:29)
[2023-02-27] MEDS: amLODIPine 5 MG TAB PO SCH (08:46)
[2023-02-27 12:33] LABS: Glucose,Whole Blood 286 mg/dL (70-110)
--- NOTE | 2023-02-27 14:09 | P.PN ---
Subjective Progress Note Date: 02/26/23 Principal diagnosis: Reason for follow-up is left big toe and fifth toe gangrene and cellulitis Patient is a 62-year-old female with a past medical history of pain for diabetes mellitus hypertension hyperlipidemia reflux recent [facility] in the left big toe medial side necrotic wound now presenting back to the hospital with left fifth toe gangrene and cellulitis along with the left big toe medial aspect necrotic wound On today's evaluation that is 02/26/2023 patient remains to be afebrile, patient is still complaining of pain to the left fifth and big toe moderate intensity without any radiation, however surrounding swelling redness slightly decreased in intensity there is no drainage denies any chest pain shortness of breath or cough no abdominal pain or diarrhea. Patient did have white count was 7.2 as of 02/25/2023, creatinine 0.37 Objective - Vital Signs Vital signs: Vital Signs Temp 98.1 F 02/26/23 07:20 Pulse 75 02/26/23 07:20 Resp 17 02/26/23 08:11 BP 144/79 02/26/23 07:20 Pulse Ox 93 L 02/26/23 07:20 FiO2 Intake & Output 02/25/23 02/26/23 02/26/23 18:59 06:59 18:59 Intake Total 1000 100 Balance 1000 100 Weight 65.771 kg Intake: Oral 1000 100 Other: # Voids 1 1 - Exam GENERAL DESCRIPTION: An middle-aged female lying in bed in no distress RESPIRATORY SYSTEM: Unlabored breathing , decreased breath sounds at bases HEART: S1 S2 regular rate and rhythm , ABDOMEN: Soft , no tenderness EXTREMITIES: Left fifth toe with necrotic changes and a necrotic wound on the medial aspect of the left big toe. - Labs CBC & Chem 7: 02/25/23 11:09 02/27/23 05:49 Labs: Abnormal Lab Results - Last 24 Hours (Table) 02/25/23 02/25/23 02/25/23 Range/Units 07:28 18:47 20:54 Creatinine (0.52-1.04) mg/dL POC Glucose (mg/dL) 296 H 245 H (70-110) mg/dL Hemoglobin A1c 9.6 H (<=6.0) % 02/26/23 02/26/23 02/26/23 Range/Units 05:41 06:00 12:23 Creatinine 0.37 L (0.52-1.04) mg/dL POC Glucose (mg/dL) 320 H 343 H (70-110) mg/dL Hemoglobin A1c (<=6.0) % Assessment and Plan (1) Cellulitis of left foot Current Visit: Yes Status: Acute Code(s): L03.116 - CELLULITIS OF LEFT LOWER LIMB SNOMED Code(s): 66080422488970822 (2) Diabetic ulcer of toe of left foot Current Visit: Yes Status: Acute Code(s): E11.621 - TYPE 2 DIABETES MELLITUS WITH FOOT ULCER; L97.529 - NON-PRESSURE CHRONIC ULCER OTH PRT LEFT FOOT W UNSP SEVERITY SNOMED Code(s): 658908660 Plan: 1patient with left diabetic foot infection in this patient who initially presented with left big toe medial side necrotic changes and cellulitis now presenting with left fifth toe gangrene and cellulitis highly clinically suspicious for ischemia to be the likely etiology 2currently waiting for cardiac intervention and evaluation by vascular surgery evaluation 3-patient to continue with vancomycin while watching kidney function closely which is currently normal and Unasyn Dictation was produced using [employer] dictation software. please excuse any grammatical, word or spelling errors. Time with Patient: Less than 30
--- NOTE | 2023-02-27 14:11 | P.PN ---
Subjective Progress Note Date: 02/27/23 Principal diagnosis: Reason for follow-up is left big toe and fifth toe gangrene and cellulitis Patient is a 62-year-old female with a past medical history of pain for diabetes mellitus hypertension hyperlipidemia reflux recent [facility] in the left big toe medial side necrotic wound now presenting back to the hospital with left fifth toe gangrene and cellulitis along with the left big toe medial aspect necrotic wound On today's evaluation that is 02/27/2023 patient continues to be afebrile, patient i continuing to complain of of pain to the left fifth and big toe moderate intensity and did have some decreased in intensity with the pain medication, the patient denies any chest pain shortness of breath or cough no abdominal pain or diarrhea. Patient did have white count was 7.2 as of 02/25/2023, creatinine 0.48 Objective - Vital Signs Vital signs: Vital Signs Temp 97.4 F L 02/27/23 07:35 Pulse 79 02/27/23 08:00 Resp 15 02/27/23 08:00 BP 98/59 02/27/23 07:35 Pulse Ox 95 02/27/23 07:35 FiO2 Intake & Output 02/26/23 02/27/23 02/27/23 18:59 06:59 18:59 Intake Total 418 Balance 418 Weight 65.771 kg Intake: Oral 418 Other: # Voids 3 2 # Bowel Movements 2 - Exam GENERAL DESCRIPTION: An middle-aged female lying in bed in no distress RESPIRATORY SYSTEM: Unlabored breathing , decreased breath sounds at bases HEART: S1 S2 regular rate and rhythm , ABDOMEN: Soft , no tenderness EXTREMITIES: Left fifth toe with necrotic changes and a necrotic wound on the medial aspect of the left big toe. - Labs CBC & Chem 7: 02/25/23 11:09 02/27/23 05:49 Labs: Abnormal Lab Results - Last 24 Hours (Table) 02/26/23 02/26/23 02/27/23 Range/Units 17:05 20:37 05:29 Creatinine (0.52-1.04) mg/dL POC Glucose (mg/dL) 324 H 284 H 219 H (70-110) mg/dL 02/27/23 02/27/23 Range/Units 05:49 12:31 Creatinine 0.48 L (0.52-1.04) mg/dL POC Glucose (mg/dL) 286 H (70-110) mg/dL Assessment and Plan (1) Cellulitis of left foot Current Visit: Yes Status: Acute Code(s): L03.116 - CELLULITIS OF LEFT LOWER LIMB SNOMED Code(s): 13206588460188680 (2) Diabetic ulcer of toe of left foot Current Visit: Yes Status: Acute Code(s): E11.621 - TYPE 2 DIABETES MELLITUS WITH FOOT ULCER; L97.529 - NON-PRESSURE CHRONIC ULCER OTH PRT LEFT FOOT W UNSP SEVERITY SNOMED Code(s): 457145418 Plan: 1patient with left diabetic foot infection in this patient who initially presented with left big toe medial side necrotic changes and cellulitis now presenting with left fifth toe gangrene and cellulitis highly clinically suspicious for ischemia to be the likely etiology 2currently waiting for cardiac intervention patient has been evaluated by vascular surgery did not mention any intervention at this point 3-patient is currently covered e with vancomycin and Unasyn" okay to continue per the surgery Dictation was produced using [employer] dictation software. please excuse any grammatical, word or spelling errors. Time with Patient: Less than 30
--- NOTE | 2023-02-27 14:47 | P.PN ---
Subjective Progress Note Date: 02/27/23 Patient was interviewed and examined. Patient is a pleasant 62-year-old female who presented to the hospital with left foot ulcers with infection and gangrene. Patient has known PAD, and sees Dr. Lock. This morning patient reports pain in her left leg. She states otherwise she is feeling okay. The pain is mostly when she walks, demonstrating intermittent claudication secondary to her known vascular disease. VITALS: Temp 98.0, pulse 79, respirations 20, blood pressure 107/61, O2 saturation 95% on room air TELEMETRY: Regular rate and rhythm per auscultation LABS: White count 7.2, hemoglobin 12.3, platelets 197, sodium 139, potassium 3.5, BUN 4, creatinine 0.38, calcium 8.4, triglycerides 197, cholesterol 114, LDL 38.8, HDL 35.8 02/26 Patient continues to have pain in the left leg. She also states her stomach is upset which he thinks is due to antibiotics. Vital signs have been stable with heart rate in the 70s, blood pressure 102/65165/79, pulse ox 93% on room air. Creatinine 0.37. Patient is plan to see Dr. Lock today. There is currently no plan for surgical intervention. Patient is maintained on Unasyn and vancomycin managed by Dr. Patricio. Blood sugars are running between 245 and 320. Hemoglobin A1c 9.6. 02/27 Patient was seen by Dr. Lock yesterday and he requested consult with Dr. Padilla which is currently pending. Patient continues to have pain in her foot. Blood pressure 109/72, heart rate in the 70s and 80s, afebrile, pulse ox 97% on room air. Creatinine 0.48. GENERAL: Well-appearing, well-nourished and in no acute distress. NECK: Supple without JVD or thyromegaly. LUNGS: Breath sounds clear to auscultation bilaterally. Respiration equal and unlabored. No wheezes, rales or rhonchi. HEART: Regular rate and rhythm without murmurs, rubs or gallops. S1 and S2 heard. EXTREMITIES: Normal range of motion, no edema. No clubbing or cyanosis. Peripheral pulses intact and strong. IMPRESSION: 1. Acute infected left foot and toe ulcers secondary to PAD. 2. History of multiple bilateral lower extremity stents placed by Dr. Lock 3. Diabetes 4. Hyperlipidemia 5. Hypertension PLAN: Continue current medications as prescribed. Consult with Dr. Padilla Nurse practitioner note has been reviewed, I agree with the documented findings and plan of care. Patient was seen and examined. Objective - Vital Signs Vital signs: Vital Signs Temp 97.6 F 02/27/23 14:00 Pulse 82 02/27/23 14:00 Resp 16 02/27/23 14:00 BP 109/72 02/27/23 14:00 Pulse Ox 97 02/27/23 14:00 FiO2 Intake & Output 02/26/23 02/27/23 02/27/23 18:59 06:59 18:59 Intake Total 418 240 Balance 418 240 Weight 65.771 kg Intake: Oral 418 240 Other: # Voids 3 2 # Bowel Movements 2 - Labs CBC & Chem 7: 02/25/23 11:09 02/27/23 05:49 Labs: Abnormal Lab Results - Last 24 Hours (Table) 02/26/23 02/26/23 02/27/23 Range/Units 17:05 20:37 05:29 Creatinine (0.52-1.04) mg/dL POC Glucose (mg/dL) 324 H 284 H 219 H (70-110) mg/dL 02/27/23 02/27/23 Range/Units 05:49 12:31 Creatinine 0.48 L (0.52-1.04) mg/dL POC Glucose (mg/dL) 286 H (70-110) mg/dL
[2023-02-27 17:16] LABS: Glucose,Whole Blood 245 mg/dL (70-110)
[2023-02-27] MEDS: ALPRAZolam 0.5 MG TAB PO PRN (20:29)
[2023-02-27] MEDS: ATORVASTATIN 80 MG TAB PO SCH (20:29)
[2023-02-27 21:01] LABS: Glucose,Whole Blood 165 mg/dL (70-110)
[2023-02-27] MEDS: INSULIN DETEMIR (LEVEMIR) 100 UNIT/ML SYR SQ SCH (21:27)
[2023-02-28] MEDS: VANCOMYCIN 1,250 MG in SODIUM CHLORIDE 0.9% 250 ML IVPB SCH ×3 (01:00→16:49)
[2023-02-28] MEDS: INSULIN ASPART (NovoLOG) 100 UNIT/ML VIAL SQ SCH ×7 (05:15→22:08)
[2023-02-28] MEDS: AMPICILLIN-SULBACTAM 3 GM in SODIUM CHLORIDE 0.9% 100 ML IVPB SCH ×5 (05:52→19:49)
[2023-02-28 06:34] LABS: Glucose,Whole Blood 311 mg/dL (70-110)
[2023-02-28 06:48] LABS: African American GFR (CKD) >90 (>60 ml/min/1.73 sqM); Anion Gap 10 mmol/L; Blood Urea Nitrogen <2 mg/dL (7-17); Calcium 8.1 mg/dL (8.4-10.2); Carbon Dioxide 24 mmol/L (22-30); Chloride 102 mmol/L (98-107); Glucose 325 mg/dL (74-99); Non-African American GFR(CKD) >90 (>60 ml/min/1.73 sqM); Potassium 3.3 mmol/L (3.5-5.1); Sodium 136 mmol/L (137-145)
[2023-02-28] MEDS ORDERED: VANCOMYCIN TROUGH DUE 1 EACH MISC MISCELLANE ONE (07:00)
[2023-02-28] MEDS: INSULIN DETEMIR (LEVEMIR) 100 UNIT/ML SYR SQ SCH ×2 (07:04→22:08)
[2023-02-28] MEDS: ONDANSETRON 4 MG/2 ML VIAL IVP PRN (07:04)
[2023-02-28] MEDS: CLOPIDOGREL 75 MG TAB PO SCH (09:29)
[2023-02-28] MEDS: cilostazoL 100 MG TAB PO SCH ×2 (09:29→22:08)
[2023-02-28] MEDS: ASPIRIN 81 MG PO SCH (09:29)
[2023-02-28] MEDS: LOPERAMIDE 2 MG CAP PO SCH ×4 (09:29→22:08)
[2023-02-28] MEDS: amLODIPine 5 MG TAB PO SCH (09:29)
[2023-02-28] MEDS: PANTOPRAZOLE 40 MG/10 ML VIAL IVP SCH (09:31)
[2023-02-28] MEDS: HYDROmorphone 1 MG/ML 1 ML SYRINGE IVP PRN ×4 (10:05→19:50)
--- NOTE | 2023-02-28 10:50 | P.PN ---
Subjective Progress Note Date: 02/27/23 This is 62-year-old female with past medical history significant for PAD, multiple bilateral lower extremity stents placed by Dr. Cruz, diabetes mellitus and multiple other medical issues presented with cellulitis, necrotic changes, worsening infected left foot ulcers draining with gangrene. Maintained on IV antibiotics of vancomycin and Unasyn as per infectious disease. Creatinine 0.37. Afebrile. Denies sweats or chills. Reports chronic diarrhea. Reports pain with walking. Blood sugars uncontrolled, in the 300s, A1c 9.6. Vascular surgeon as well as Dr. Cruz consulted for further evaluation of left lower extremity. Denies any chest pain, palpitations or shortness of breath. O2 sats in the high 90s on room air. 02/27/23 diabetic med regimen adjusted yesterday with blood sugars better improving. Denies chills or fevers. Reports left foot pain currently controlled, worse at night. Evaluated by Dr. Cruz yesterday and he consulted vascular surgery. Evaluated by Dr. Padilla, vascular surgery yesterday, recommended to "continue with local wound care with Dr. Cruz for intervention ". Denies chest pain, palpitations or shortness of breath. Maintaining O2 sats in the high 90s on room air. Maintained on IV antibiotics of Unasyn and vancomycin. Creatinine 0.48. Afebrile. Objective - Vital Signs Vital signs: Vital Signs Temp 97.6 F 02/27/23 14:00 Pulse 82 02/27/23 14:00 Resp 16 02/27/23 14:00 BP 109/72 02/27/23 14:00 Pulse Ox 97 02/27/23 14:00 FiO2 Intake & Output 02/26/23 02/27/23 02/27/23 18:59 06:59 18:59 Intake Total 418 240 Balance 418 240 Weight 65.771 kg Intake: Oral 418 240 Other: # Voids 3 2 # Bowel Movements 2 - Exam PHYSICAL EXAM: VITAL SIGNS: [As above] GENERAL: Alert and oriented 3, Sitting up in bed, no acute distress HEENT: Normocephalic ,Conjunctivae normal. eyes normal. MMM. NECK: Supple, No JVD. CARDIOVASCULAR: S1, S2 regular. No murmur RESPIRATION: Unlabored, equal air entry, CTA with bilateral bases diminished. ABDOMEN: Soft, nondistended, nontender . No guarding. no masses palpable. No ascites, No hepatosplenomegaly.Bowel sounds heard. LEGS: Left foot dressing clean dry and intact. Positive DP pulse. NERVOUS SYSTEM: Cranial N 2-12 grossly normal. No focal deficits. Skin: Warm and dry, no rash - Labs CBC & Chem 7: 02/25/23 11:09 02/28/23 06:18 Labs: Abnormal Lab Results - Last 24 Hours (Table) 02/26/23 02/26/23 02/27/23 Range/Units 17:05 20:37 05:29 Creatinine (0.52-1.04) mg/dL POC Glucose (mg/dL) 324 H 284 H 219 H (70-110) mg/dL 02/27/23 02/27/23 Range/Units 05:49 12:31 Creatinine 0.48 L (0.52-1.04) mg/dL POC Glucose (mg/dL) 286 H (70-110) mg/dL Assessment and Plan Assessment: Left foot diabetic ulcer with necrotic changes, cellulitis and gangrene, suspicious for ischemia, secondary to PAD Insulin-dependent diabetes mellitus, hyperglycemic, hemoglobin A1c 9.6 History of multiple bilateral lower extremity stents placed by Dr. Lock Hypertension Hyperlipidemia Plan: Continue on current medication regime ,monitoring and symptomatic treatment. Evaluated by a Dr. Padilla, vascular surgery . Further recommendations as per vascular surgery and cardiology regarding potential inte rvention. Lantus further increased, Close monitoring of blood sugars. Maintained on antibiotics of Unasyn and vancomycin as per infectious disease. Continue close monitoring of renal function with repeat Labs ordered for a.m. The impression and plan of care has been dictated as directed. : I performed a history and examination of this patient, discussed the same with the dictator. I agree with the dictator's note ,documented as a scribe. Any additional findings or plans will be noted.
--- NOTE | 2023-02-28 11:08 | P.PN ---
Subjective Progress Note Date: 02/28/23 This is 62-year-old female with past medical history significant for PAD, multiple bilateral lower extremity stents placed by Dr. Cruz, diabetes mellitus and multiple other medical issues presented with cellulitis, necrotic changes, worsening infected left foot ulcers draining with gangrene. Maintained on IV antibiotics of vancomycin and Unasyn as per infectious disease. Creatinine 0.37. Afebrile. Denies sweats or chills. Reports chronic diarrhea. Reports pain with walking. Blood sugars uncontrolled, in the 300s, A1c 9.6. Vascular surgeon as well as Dr. Cruz consulted for further evaluation of left lower extremity. Denies any chest pain, palpitations or shortness of breath. O2 sats in the high 90s on room air. 02/27/23 diabetic med regimen adjusted yesterday with blood sugars better improving. Denies chills or fevers. Reports left foot pain currently controlled, worse at night. Evaluated by Dr. Cruz yesterday and he consulted vascular surgery. Evaluated by Dr. Padilla, vascular surgery yesterday, recommended to "continue with local wound care with Dr. Cruz for intervention ". Denies chest pain, palpitations or shortness of breath. Maintaining O2 sats in the high 90s on room air. Maintained on IV antibiotics of Unasyn and vancomycin. Creatinine 0.48. Afebrile. 02/28/2023 continues on IV fluids and antibiotics. Creatinine 0.42. Afebrile, denies chills or sweats. Reports pain unchanged, minimally worsened with weightbearing. Patient expressing frustration over waiting on further recommendations per vascular surgery and cardiology regarding potential interve ntion. Potassium 3.3.. Objective - Vital Signs Vital signs: Vital Signs Temp 98.2 F 02/28/23 08:00 Pulse 82 02/28/23 08:00 Resp 16 02/28/23 08:00 BP 113/70 02/28/23 08:00 Pulse Ox 92 L 02/28/23 08:00 FiO2 Intake & Output 02/27/23 02/28/23 02/28/23 18:59 06:59 18:59 Intake Total 240 Balance 240 Intake: Oral 240 Other: # Voids 2 2 - Exam PHYSICAL EXAM: VITAL SIGNS: [As above] GENERAL: Alert and oriented 3, Sitting up in bed, no acute distress HEENT: Normocephalic ,Conjunctivae normal. MMM. NECK: Supple, No JVD. CARDIOVASCULAR: S1, S2 regular. No murmur RESPIRATION: Unlabored, equal air entry, CTA with bilateral bases diminished. ABDOMEN: Soft, nondistended, nontender . No guarding. +BS. LEGS: Left foot elevated on pillow, dressing with minimal shadowing, Positive DP pulse. NERVOUS SYSTEM: Cranial N 2-12 grossly normal. No focal deficits. Skin: Warm and dry, no rash - Labs CBC & Chem 7: 02/25/23 11:09 02/28/23 06:18 Labs: Abnormal Lab Results - Last 24 Hours (Table) 02/27/23 02/27/23 02/27/23 Range/Units 12:31 17:15 21:00 Sodium (137-145) mmol/L Potassium (3.5-5.1) mmol/L BUN (7-17) mg/dL Creatinine (0.52-1.04) mg/dL Glucose (74-99) mg/dL POC Glucose (mg/dL) 286 H 245 H 165 H (70-110) mg/dL Calcium (8.4-10.2) mg/dL 02/28/23 02/28/23 Range/Units 06:18 06:32 Sodium 136 L (137-145) mmol/L Potassium 3.3 L (3.5-5.1) mmol/L BUN <2 L (7-17) mg/dL Creatinine 0.42 L (0.52-1.04) mg/dL Glucose 325 H (74-99) mg/dL POC Glucose (mg/dL) 311 H (70-110) mg/dL Calcium 8.1 L (8.4-10.2) mg/dL Assessment and Plan Assessment: Left foot diabetic ulcer with necrotic changes, cellulitis and gangrene, suspicious for ischemia, secondary to PAD Insulin-dependent diabetes mellitus, hyperglycemic, hemoglobin A1c 9.6, further teaching outpatient in clinic History of multiple bilateral lower extremity stents placed by Dr. Lock Hypertension Hyperlipidemia Plan: Continue on current medication regime ,monitoring and symptomatic treatment. Potassium supplemented, magnesium added on, pending. Further recommendations as per vascular surgery and cardiology pending. AM Lantus further increased, continue close monitoring of blood sugars. Maintained on antibiotics of Unasyn and vancomycin as per infectious disease. Continue close monitoring of renal function with repeat Labs ordered for a.m. The impression and plan of care has been dictated as directed. : I performed a history and examination of this patient, discussed the same with the dictator. I agree with the dictator's note ,documented as a scribe. Any additional findings or plans will be noted.
--- NOTE | 2023-02-28 12:03 | P.PN ---
Subjective Progress Note Date: 02/28/23 Patient was interviewed and examined. Patient is a pleasant 62-year-old female who presented to the hospital with left foot ulcers with infection and gangrene. Patient has known PAD, and sees Dr. Lock. This morning patient reports pain in her left leg. She states otherwise she is feeling okay. The pain is mostly when she walks, demonstrating intermittent claudication secondary to her known vascular disease. VITALS: Temp 98.0, pulse 79, respirations 20, blood pressure 107/61, O2 saturation 95% on room air TELEMETRY: Regular rate and rhythm per auscultation LABS: White count 7.2, hemoglobin 12.3, platelets 197, sodium 139, potassium 3.5, BUN 4, creatinine 0.38, calcium 8.4, triglycerides 197, cholesterol 114, LDL 38.8, HDL 35.8 02/26 Patient continues to have pain in the left leg. She also states her stomach is upset which he thinks is due to antibiotics. Vital signs have been stable with heart rate in the 70s, blood pressure 102/46175/79, pulse ox 93% on room air. Creatinine 0.37. Patient is plan to see Dr. Lock today. There is currently no plan for surgical intervention. Patient is maintained on Unasyn and vancomycin managed by Dr. Patricio. Blood sugars are running between 245 and 320. Hemoglobin A1c 9.6. 02/27 Patient was seen by Dr. Lock yesterday and he requested consult with Dr. Padilla which is currently pending. Patient continues to have pain in her foot. Blood pressure 109/72, heart rate in the 70s and 80s, afebrile, pulse ox 97% on room air. Creatinine 0.48. 02/28 Patient has been seen by Dr. Padilla and case discussed by him with Dr. Lock for angiography and intervention possibly today. Local wound care in the form of medihoney gel to the big toe and fifth toe. Blood pressure 113/70, heart rate in the 70s and 80s, pulse ox 92% on room air, afebrile. Patient is continued on vancomycin and Unasyn per ID. GENERAL: Well-appearing, well-nourished and in no acute distress. NECK: Supple without JVD or thyromegaly. LUNGS: Breath sounds clear to auscultation bilaterally. Respiration equal and unlabored. No wheezes, rales or rhonchi. HEART: Regular rate and rhythm without murmurs, rubs or gallops. S1 and S2 heard. EXTREMITIES: Normal range of motion, no edema. No clubbing or cyanosis. Peripheral pulses intact and strong. IMPRESSION: 1. Acute infected left foot and toe ulcers secondary to PAD. 2. History of multiple bilateral lower extremity stents placed by Dr. Lock 3. Diabetes 4. Hyperlipidemia 5. Hypertension PLAN: Continue current medications as prescribed. Patient to be scheduled for angiography today with Dr. Lock Nurse practitioner note has been reviewed, I agree with the documented findings and plan of care. Patient was seen and examined. Objective - Vital Signs Vital signs: Vital Signs Temp 98.1 F 02/28/23 02:00 Pulse 78 02/28/23 02:00 Resp 16 02/28/23 02:00 BP 124/68 02/28/23 02:00 Pulse Ox 97 02/28/23 02:00 FiO2 Intake & Output 02/27/23 02/28/23 02/28/23 18:59 06:59 18:59 Intake Total 240 Balance 240 Intake: Oral 240 Other: # Voids 2 2 - Labs CBC & Chem 7: 02/25/23 11:09 02/28/23 06:18 Labs: Abnormal Lab Results - Last 24 Hours (Table) 02/27/23 02/27/23 02/27/23 Range/Units 12:31 17:15 21:00 Sodium (137-145) mmol/L Potassium (3.5-5.1) mmol/L BUN (7-17) mg/dL Creatinine (0.52-1.04) mg/dL Glucose (74-99) mg/dL POC Glucose (mg/dL) 286 H 245 H 165 H (70-110) mg/dL Calcium (8.4-10.2) mg/dL 02/28/23 02/28/23 Range/Units 06:18 06:32 Sodium 136 L (137-145) mmol/L Potassium 3.3 L (3.5-5.1) mmol/L BUN <2 L (7-17) mg/dL Creatinine 0.42 L (0.52-1.04) mg/dL Glucose 325 H (74-99) mg/dL POC Glucose (mg/dL) 311 H (70-110) mg/dL Calcium 8.1 L (8.4-10.2) mg/dL
[2023-02-28 12:29] LABS: Glucose,Whole Blood 252 mg/dL (70-110)
[2023-02-28] MEDS ORDERED: MIDAZOLAM 2 MG/2 ML VIAL IVP ONE (13:08)
[2023-02-28] MEDS ORDERED: LIDOCAINE 1% INJ 10MG/ML (30 ML VIAL-PF) SQ ONE (13:08)
[2023-02-28] MEDS ORDERED: IOPAMIDOL-370 100ML BTL INJ ONE (13:16)
[2023-02-28] MEDS ORDERED: IV FLUID CONTINUATION 400 ML IV ONE (13:17)
[2023-02-28] MEDS ORDERED: NALOXONE 0.4 MG/ML 1 ML VIAL IVP PRN (13:21)
--- NOTE | 2023-02-28 13:27 | P.PCN ---
Date of Procedure: 02/28/23 Operative Findings: AN ABDOMINAL AORTOGRAM AND BILATERAL LOWER EXTREMITIES RUNOFF PERFORMING PHYSICIAN: Vipul Lock MD PROCEDURE PERFORMED: 1. An abdominal aortogram 2. Bilateral lower extremities runoff 3. Ultrasound-guided access the right common femoral artery INDICATION: CLI of the left foot COMPLICATION: None LEVEL OF SEDATION: Moderate was sedation length of 17 minutes APPROACH: Right common femoral artery PROCEDURE DESCRIPTION: After obtaining informed consent and explaining the procedure benefits, risks, and complications, the patient was brought to the cardiac clinical laboratory scientist. The right groin was prepped and draped in sterile fashion. The right common femoral artery was cannulated using micropuncture technique, under ultrasound guidance. A micropuncture wire was advanced, and the micropuncture sheath was advanced over the wire, then the micropuncture sheath was exchanged over an 0.35 wire into a 5-[place]oz[place] sheath dilator assembly then the wire and dilator were removed and sheath was flushed. We did an abdominal aortogram and bilateral lower extremities runoff using 5- [place] pigtail catheter using a power injection. The catheter was initially placed at the level of the renal arteries, and it was pulled into above the bifurcation of the aorta into right and left common iliac arteries. The procedure was completed and there was no complications. SELECTIVE PERIPHERAL ANGIOGRAM: The abdominal aorta: Calcified was mild disease only The common iliac arteries: The right common iliac artery appeared to have mild disease only. The left common iliac artery appeared to have intermediate to severe disease The external iliac arteries: The right external iliac artery appeared to be stented and the stent is patent. 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
[2023-02-28] MEDS ORDERED: SODIUM CHLORIDE 0.9% 1,000 ML in EMPTY BAG 1 BAG IV SCH (13:30)
[2023-02-28] MEDS: POTASSIUM CHLORIDE ER 20 MEQ TAB.ER PO SCH ×2 (13:54→16:49)
[2023-02-28] MEDS: SODIUM CHLORIDE 0.9% 1,000 ML IV SCH (14:03)
[2023-02-28 17:19] LABS: Glucose,Whole Blood 171 mg/dL (70-110)
[2023-02-28 20:27] LABS: Glucose,Whole Blood 175 mg/dL (70-110)
[2023-02-28] MEDS: ATORVASTATIN 80 MG TAB PO SCH (22:08)
--- NOTE | 2023-02-28 23:03 | P.PN ---
Subjective Progress Note Date: 02/28/23 Principal diagnosis: Reason for follow-up is left big toe and fifth toe gangrene and cellulitis Patient is a 62-year-old female with a past medical history of pain for diabetes mellitus hypertension hyperlipidemia reflux recent [facility] in the left big toe medial side necrotic wound now presenting back to the hospital with left fifth toe gangrene and cellulitis along with the left big toe medial aspect necrotic wound On today's evaluation that is 02/28/2023 patient remains to be afebrile, patient is breathing comfortably on 2 L nasal cannula oxygen, the patient denies any chest pain shortness of breath or cough no abdominal pain or diarrhea. Still complaining of pain to the left big and fifth toe Patient did have white count was 7.2 as of 02/25/2023, creatinine 0.42 Objective - Vital Signs Vital signs: Vital Signs Temp 98.2 F 02/28/23 08:00 Pulse 82 02/28/23 08:00 Resp 16 02/28/23 08:00 BP 113/70 02/28/23 08:00 Pulse Ox 92 L 02/28/23 08:00 FiO2 Intake & Output 02/27/23 02/28/23 02/28/23 18:59 06:59 18:59 Intake Total 240 Balance 240 Intake: Oral 240 Other: # Voids 2 2 - Exam GENERAL DESCRIPTION: An middle-aged female lying in bed in no distress RESPIRATORY SYSTEM: Unlabored breathing , decreased breath sounds at bases HEART: S1 S2 regular rate and rhythm , ABDOMEN: Soft , no tenderness EXTREMITIES: Left fifth toe with necrotic changes and a necrotic wound on the medial aspect of the left big toe. - Labs CBC & Chem 7: 02/25/23 11:09 02/28/23 06:18 Labs: Abnormal Lab Results - Last 24 Hours (Table) 02/27/23 02/27/23 02/28/23 Range/Units 17:15 21:00 06:18 Sodium 136 L (137-145) mmol/L Potassium 3.3 L (3.5-5.1) mmol/L BUN <2 L (7-17) mg/dL Creatinine 0.42 L (0.52-1.04) mg/dL Glucose 325 H (74-99) mg/dL POC Glucose (mg/dL) 245 H 165 H (70-110) mg/dL Calcium 8.1 L (8.4-10.2) mg/dL Magnesium (1.6-2.3) mg/dL 02/28/23 02/28/23 02/28/23 Range/Units 06:18 06:32 12:27 Sodium (137-145) mmol/L Potassium (3.5-5.1) mmol/L BUN (7-17) mg/dL Creatinine (0.52-1.04) mg/dL Glucose (74-99) mg/dL POC Glucose (mg/dL) 311 H 252 H (70-110) mg/dL Calcium (8.4-10.2) mg/dL Magnesium 1.5 L (1.6-2.3) mg/dL Assessment and Plan (1) Cellulitis of left foot Current Visit: Yes Status: Acute Code(s): L03.116 - CELLULITIS OF LEFT LOWER LIMB SNOMED Code(s): 25761307105756411 (2) Diabetic ulcer of toe of left foot Current Visit: Yes Status: Acute Code(s): E11.621 - TYPE 2 DIABETES MELLITUS WITH FOOT ULCER; L97.529 - NON-PRESSURE CHRONIC ULCER OTH PRT LEFT FOOT W UNSP SEVERITY SNOMED Code(s): 093965359 Plan: 1patient with left diabetic foot infection in this patient who initially presented with left big toe medial side necrotic changes and cellulitis now presenting with left fifth toe gangrene and cellulitis highly clinically suspicious for ischemia to be the likely etiology 2patient is scheduled for angiogram to the left lower extremity this afternoon results will be followed 3-patient to continue with vancomycin and Unasyn and monitor clinical course closely Dictation was produced using [employer] dictation software. please excuse any grammatical, word or spelling errors. Time with Patient: Less than 30
--- NOTE | 2023-03-01 00:48 | CT ---
EXAM: CT Head Without Intravenous Contrast CLINICAL HISTORY: ITS.REASON CT Reason: fall TECHNIQUE: Axial computed tomography images of the head/brain without intravenous contrast. CTDI is 49.2 mGy and DLP is 1183.4 mGy-cm. This CT exam was performed using one or more of the following dose reduction techniques: automated exposure control, adjustment of the mA and/or kV according to patient size, and/or use of iterative reconstruction technique. COMPARISON: No relevant prior studies available. FINDINGS: No acute intracranial hemorrhage. No midline shift or mass effect. The territorial dupont-white matter differentiation is maintained throughout. Age-related cerebral volume loss. Periventricular and subcortical white matter hypoattenuation, consistent with chronic microangiopathy. The visualized orbits appear grossly unremarkable. The calvarium is intact. The visualized paranasal sinuses and mastoid air cells are grossly clear. IMPRESSION: No acute intracranial hemorrhage, midline shift, or mass effect.
--- NOTE | 2023-03-01 01:21 | XR ---
EXAM: XR Left Knee Complete, 4 or More Views CLINICAL HISTORY: ITS.REASON XR Reason: fall TECHNIQUE: Four or more views of the left knee. COMPARISON: Radiograph 07/01/2019 FINDINGS: Bones/joints: Osteopenia. No acute fracture. Mild degenerative changes. No significant joint effusion. IMPRESSION: No acute findings in the left knee.
[2023-03-01] MEDS: AMPICILLIN-SULBACTAM 3 GM in SODIUM CHLORIDE 0.9% 100 ML IVPB SCH ×5 (01:55→23:43)
[2023-03-01] MEDS: VANCOMYCIN 1,250 MG in SODIUM CHLORIDE 0.9% 250 ML IVPB SCH ×3 (01:55→15:15)
[2023-03-01] MEDS: SODIUM CHLORIDE 0.9% 1,000 ML IV SCH ×2 (01:55→17:16)
[2023-03-01] MEDS: HYDROmorphone 1 MG/ML 1 ML SYRINGE IVP PRN ×4 (01:56→22:46)
[2023-03-01 05:33] LABS: African American GFR (CKD) >90 (>60 ml/min/1.73 sqM); Non-African American GFR(CKD) >90 (>60 ml/min/1.73 sqM)
[2023-03-01 06:17] LABS: Glucose,Whole Blood 211 mg/dL (70-110)
[2023-03-01] MEDS: INSULIN ASPART (NovoLOG) 100 UNIT/ML VIAL SQ SCH ×7 (06:41→22:03)
[2023-03-01] MEDS: INSULIN DETEMIR (LEVEMIR) 100 UNIT/ML SYR SQ SCH ×2 (06:44→22:01)
[2023-03-01] MEDS: cilostazoL 100 MG TAB PO SCH ×2 (08:40→22:02)
[2023-03-01] MEDS: PANTOPRAZOLE 40 MG/10 ML VIAL IVP SCH (08:40)
[2023-03-01] MEDS: amLODIPine 5 MG TAB PO SCH (08:40)
[2023-03-01] MEDS: LOPERAMIDE 2 MG CAP PO SCH ×4 (08:40→22:03)
[2023-03-01] MEDS: CLOPIDOGREL 75 MG TAB PO SCH (08:40)
[2023-03-01] MEDS: ASPIRIN 81 MG PO SCH (08:40)
--- NOTE | 2023-03-01 10:57 | P.PN ---
Subjective Progress Note Date: 03/01/23 Patient was interviewed and examined. Patient is a pleasant 62-year-old female who presented to the hospital with left foot ulcers with infection and gangrene. Patient has known PAD, and sees Dr. Lock. This morning patient reports pain in her left leg. She states otherwise she is feeling okay. The pain is mostly when she walks, demonstrating intermittent claudication secondary to her known vascular disease. VITALS: Temp 98.0, pulse 79, respirations 20, blood pressure 107/61, O2 saturation 95% on room air TELEMETRY: Regular rate and rhythm per auscultation LABS: White count 7.2, hemoglobin 12.3, platelets 197, sodium 139, potassium 3.5, BUN 4, creatinine 0.38, calcium 8.4, triglycerides 197, cholesterol 114, LDL 38.8, HDL 35.8 02/26 Patient continues to have pain in the left leg. She also states her stomach is upset which he thinks is due to antibiotics. Vital signs have been stable with heart rate in the 70s, blood pressure 102/06746/79, pulse ox 93% on room air. Creatinine 0.37. Patient is plan to see Dr. Lock today. There is currently no plan for surgical intervention. Patient is maintained on Unasyn and vancomycin managed by Dr. Patricio. Blood sugars are running between 245 and 320. Hemoglobin A1c 9.6. 02/27 Patient was seen by Dr. Lock yesterday and he requested consult with Dr. Padilla which is currently pending. Patient continues to have pain in her foot. Blood pressure 109/72, heart rate in the 70s and 80s, afebrile, pulse ox 97% on room air. Creatinine 0.48. 02/28 Patient has been seen by Dr. Padilla and case discussed by him with Dr. Lock for angiography and intervention possibly today. Local wound care in the form of medihoney gel to the big toe and fifth toe. Blood pressure 113/70, heart rate in the 70s and 80s, pulse ox 92% on room air, afebrile. Patient is continued on vancomycin and Unasyn per ID. 03/01 Yesterday, patient underwent abdominal aortogram with lower extremity runoff with Dr. Lock which revealed intermediate to severe disease involving the left common iliac artery and intermediate disease involving the left external iliac artery. Occluded bilateral SFA on long segment. Plan is for GM of the left iliac and left as if a as an outpatient. Patient denies any new complaints. No chest pain. She continues to complain of pain. Blood pressure is running 93/02478/67. Heart rate is in the 70s and 80s. GENERAL: Well-appearing, well-nourished and in no acute distress. NECK: Supple without JVD or thyromegaly. LUNGS: Breath sounds clear to auscultation bilaterally. Respiration equal and unlabored. No wheezes, rales or rhonchi. HEART: Regular rate and rhythm without murmurs, rubs or gallops. S1 and S2 heard. EXTREMITIES: Normal range of motion, no edema. No clubbing or cyanosis. Peripheral pulses intact and strong. IMPRESSION: 1. Acute infected left foot and toe ulcers secondary to PAD. 2. History of multiple bilateral lower extremity stents placed by Dr. Lock 3. Diabetes 4. Hyperlipidemia 5. Hypertension PLAN: Continue current medications as prescribed. Patient tis cleared for discharge from cardiology and client technical support associate office will be contacting patient regarding scheduling of GM with Dr. Lock. Nurse practitioner note has been reviewed, I agree with the documented findings and plan of care. Patient was seen and examined. Objective - Vital Signs Vital signs: Vital Signs Temp 98.7 F 03/01/23 08:00 Pulse 88 03/01/23 08:00 Resp 16 03/01/23 08:00 BP 93/62 03/01/23 08:00 Pulse Ox 93 L 03/01/23 08:00 FiO2 Intake & Output 02/28/23 03/01/23 03/01/23 18:59 06:59 18:59 Intake Total 100 Balance 100 Intake: IV 100 Other: # Voids 1 2 # Bowel Movements 4 - Labs CBC & Chem 7: 02/25/23 11:09 03/01/23 05:07 Labs: Abnormal Lab Results - Last 24 Hours (Table) 02/28/23 02/28/23 02/28/23 Range/Units 06:18 12:27 17:16 Creatinine (0.52-1.04) mg/dL POC Glucose (mg/dL) 252 H 171 H (70-110) mg/dL Magnesium 1.5 L (1.6-2.3) mg/dL 02/28/23 03/01/23 03/01/23 Range/Units 20:25 05:07 06:15 Creatinine 0.38 L (0.52-1.04) mg/dL POC Glucose (mg/dL) 175 H 211 H (70-110) mg/dL Magnesium (1.6-2.3) mg/dL
--- NOTE | 2023-03-01 12:04 | IR ---
EXAMINATION TYPE: IR angio abdominal w runoff DATE OF EXAM: 02/28/2023 FLUOROSCOPY Fluoroscopy time of 1.3 minutes seconds was used during aortic injection. 118 image/s document/s the procedure. 2859.8 uGycm2 DAP.
[2023-03-01 12:27] LABS: Glucose,Whole Blood 216 mg/dL (70-110)
--- NOTE | 2023-03-01 16:31 | P.PN ---
Subjective Progress Note Date: 03/01/23 Principal diagnosis: Reason for follow-up is left big toe and fifth toe gangrene and cellulitis Patient is a 62-year-old female with a past medical history of pain for diabetes mellitus hypertension hyperlipidemia reflux recent [facility] in the left big toe medial side necrotic wound now presenting back to the hospital with left fifth toe gangrene and cellulitis along with the left big toe medial aspect necrotic wound, the patient is status post angiogram completed on 02/28/2023 with evidence of intermediate to severe disease involving left, iliac artery and intermediate disease involving the left external iliac artery and did have occluded bilateral SFA On today's evaluation that is 03/01/2023 patient continues to be afebrile, patient is breathing comfortably on 2 L nasal cannula oxygen, the patient denies any chest pain shortness of breath or cough no abdominal pain or diarrhea. Patient denies any worsening pain to the left big and fifth toe Patient did have white count was 7.2 as of 02/25/2023, creatinine 0.38 Objective - Vital Signs Vital signs: Vital Signs Temp 98.3 F 03/01/23 14:00 Pulse 81 03/01/23 14:00 Resp 18 03/01/23 14:00 BP 108/66 03/01/23 14:00 Pulse Ox 96 03/01/23 14:00 FiO2 Intake & Output 02/28/23 03/01/23 03/01/23 18:59 06:59 18:59 Intake Total 100 118 Balance 100 118 Intake: IV 100 Oral 118 Other: # Voids 1 2 # Bowel Movements 4 - Exam GENERAL DESCRIPTION: An middle-aged female lying in bed in no distress RESPIRATORY SYSTEM: Unlabored breathing , decreased breath sounds at bases HEART: S1 S2 regular rate and rhythm , ABDOMEN: Soft , no tenderness EXTREMITIES: Left fifth toe with necrotic changes and a necrotic wound on the medial aspect of the left big toe. - Labs CBC & Chem 7: 02/25/23 11:09 03/01/23 05:07 Labs: Abnormal Lab Results - Last 24 Hours (Table) 02/28/23 02/28/23 03/01/23 Range/Units 17:16 20:25 05:07 Creatinine 0.38 L (0.52-1.04) mg/dL POC Glucose (mg/dL) 171 H 175 H (70-110) mg/dL 03/01/23 03/01/23 Range/Units 06:15 12:25 Creatinine (0.52-1.04) mg/dL POC Glucose (mg/dL) 211 H 216 H (70-110) mg/dL Assessment and Plan (1) Cellulitis of left foot Current Visit: Yes Status: Acute Code(s): L03.116 - CELLULITIS OF LEFT LOWER LIMB SNOMED Code(s): 70978358422496677 (2) Diabetic ulcer of toe of left foot Current Visit: Yes Status: Acute Code(s): E11.621 - TYPE 2 DIABETES MELLITUS WITH FOOT ULCER; L97.529 - NON-PRESSURE CHRONIC ULCER OTH PRT LEFT FOOT W UNSP SEVERITY SNOMED Code(s): 045986665 Plan: 1patient with left diabetic foot infection in this patient who initially presented with left big toe medial side necrotic changes and cellulitis now presenting with left fifth toe gangrene and cellulitis highly clinically suspicious for ischemia to be the likely etiology 2patient is status post angiogram to the left lower extremity with evidence of severe disease to the left common iliac artery as well as left external iliac artery awaiting further intervention per cardiology 3-patient to continue with vancomycin and Unasyn and continue with supportive care multiple question concern answered Dictation was produced using [employer] dictation software. please excuse any grammatical, word or spelling errors. Time with Patient: Less than 30
[2023-03-01 18:02] LABS: Glucose,Whole Blood 164 mg/dL (70-110)
[2023-03-01 20:24] LABS: Glucose,Whole Blood 156 mg/dL (70-110)
[2023-03-01] MEDS: ATORVASTATIN 80 MG TAB PO SCH (22:02)
[2023-03-02] MEDS: VANCOMYCIN 1,250 MG in SODIUM CHLORIDE 0.9% 250 ML IVPB SCH ×3 (00:20→15:30)
[2023-03-02] MEDS: HYDROmorphone 1 MG/ML 1 ML SYRINGE IVP PRN ×3 (01:55→21:28)
[2023-03-02] MEDS: ALPRAZolam 0.5 MG TAB PO PRN ×2 (03:40→22:53)
[2023-03-02] MEDS: SODIUM CHLORIDE 0.9% 1,000 ML IV SCH ×2 (03:41→15:54)
[2023-03-02 06:22] LABS: Glucose,Whole Blood 186 mg/dL (70-110)
[2023-03-02] MEDS: AMPICILLIN-SULBACTAM 3 GM in SODIUM CHLORIDE 0.9% 100 ML IVPB SCH ×4 (06:22→23:13)
[2023-03-02] MEDS: INSULIN DETEMIR (LEVEMIR) 100 UNIT/ML SYR SQ SCH ×2 (06:25→20:50)
[2023-03-02] MEDS: INSULIN ASPART (NovoLOG) 100 UNIT/ML VIAL SQ SCH ×7 (06:25→20:51)
[2023-03-02] MEDS: PANTOPRAZOLE 40 MG/10 ML VIAL IVP SCH (09:01)
[2023-03-02] MEDS: CLOPIDOGREL 75 MG TAB PO SCH (09:01)
[2023-03-02] MEDS: cilostazoL 100 MG TAB PO SCH ×2 (09:01→20:47)
[2023-03-02] MEDS: ASPIRIN 81 MG PO SCH (09:01)
[2023-03-02] MEDS: LOPERAMIDE 2 MG CAP PO SCH ×4 (09:02→20:47)
[2023-03-02] MEDS: amLODIPine 5 MG TAB PO SCH (09:02)
--- NOTE | 2023-03-02 10:22 | P.PN ---
Subjective Progress Note Date: 03/02/23 Patient was interviewed and examined. Patient is a pleasant 62-year-old female who presented to the hospital with left foot ulcers with infection and gangrene. Patient has known PAD, and sees Dr. Lock. This morning patient reports pain in her left leg. She states otherwise she is feeling okay. The pain is mostly when she walks, demonstrating intermittent claudication secondary to her known vascular disease. VITALS: Temp 98.0, pulse 79, respirations 20, blood pressure 107/61, O2 saturation 95% on room air TELEMETRY: Regular rate and rhythm per auscultation LABS: White count 7.2, hemoglobin 12.3, platelets 197, sodium 139, potassium 3.5, BUN 4, creatinine 0.38, calcium 8.4, triglycerides 197, cholesterol 114, LDL 38.8, HDL 35.8 02/26 Patient continues to have pain in the left leg. She also states her stomach is upset which he thinks is due to antibiotics. Vital signs have been stable with heart rate in the 70s, blood pressure 102/21690/79, pulse ox 93% on room air. Creatinine 0.37. Patient is plan to see Dr. Lock today. There is currently no plan for surgical intervention. Patient is maintained on Unasyn and vancomycin managed by Dr. Patricio. Blood sugars are running between 245 and 320. Hemoglobin A1c 9.6. 02/27 Patient was seen by Dr. Lock yesterday and he requested consult with Dr. Padilla which is currently pending. Patient continues to have pain in her foot. Blood pressure 109/72, heart rate in the 70s and 80s, afebrile, pulse ox 97% on room air. Creatinine 0.48. 02/28 Patient has been seen by Dr. Padilla and case discussed by him with Dr. Lock for angiography and intervention possibly today. Local wound care in the form of medihoney gel to the big toe and fifth toe. Blood pressure 113/70, heart rate in the 70s and 80s, pulse ox 92% on room air, afebrile. Patient is continued on vancomycin and Unasyn per ID. 03/01 Yesterday, patient underwent abdominal aortogram with lower extremity runoff with Dr. Lock which revealed intermediate to severe disease involving the left common iliac artery and intermediate disease involving the left external iliac artery. Occluded bilateral SFA on long segment. Plan is for [employer] of the left iliac and left as if a as an outpatient. Patient denies any new complaints. No chest pain. She continues to complain of pain. Blood pressure is running 93/55330/67. Heart rate is in the 70s and 80s. 03/02 Patient has no new concerns continues to have pain in her foot. No chest pain. Blood pressure is running between 102/54-140/75. Heart rate is between 55 and 80. Patient is on IV antibiotics being managed by ID. GENERAL: Well-appearing, well-nourished and in no acute distress. NECK: Supple without JVD or thyromegaly. LUNGS: Breath sounds clear to auscultation bilaterally. Respiration equal and unlabored. No wheezes, rales or rhonchi. HEART: Regular rate and rhythm without murmurs, rubs or gallops. S1 and S2 heard. EXTREMITIES: Normal range of motion, no edema. No clubbing or cyanosis. Peripheral pulses intact and strong. IMPRESSION: 1. Acute infected left foot and toe ulcers secondary to PAD. 2. History of multiple bilateral lower extremity stents placed by Dr. Lock 3. Diabetes 4. Hyperlipidemia 5. Hypertension PLAN: Continue current medications as prescribed. Patient tis cleared for discharge from cardiology and teacher associate office will be contacting patient regarding scheduling of [employer] with Dr. Lock. Cardiology will sign off this case and follow on an as-needed basis. Please reconsult for any new concerns. Nurse practitioner note has been reviewed, I agree with the documented findings and plan of care. Patient was seen and examined. Objective - Vital Signs Vital signs: Vital Signs Temp 97.8 F 03/02/23 07:31 Pulse 55 L 03/02/23 07:31 Resp 16 03/02/23 07:31 BP 140/75 03/02/23 07:31 Pulse Ox 98 03/02/23 07:31 FiO2 Intake & Output 03/01/23 03/02/23 03/02/23 18:59 06:59 18:59 Intake Total 118 Balance 118 Intake: Oral 118 Other: # Voids 0 - Labs CBC & Chem 7: 02/25/23 11:09 03/01/23 05:07 Labs: Abnormal Lab Results - Last 24 Hours (Table) 03/01/23 03/01/23 03/01/23 Range/Units 12:25 17:39 20:23 POC Glucose (mg/dL) 216 H 164 H 156 H (70-110) mg/dL 03/02/23 Range/Units 06:21 POC Glucose (mg/dL) 186 H (70-110) mg/dL
--- NOTE | 2023-03-02 11:50 | P.DS ---
Providers Date of admission: 02/26/23 09:08 Expected date of discharge: 03/01/23 Attending physician: Jeff Damon MD Consults: 02/23/23 23:22 Consult Physician Routine Consulting Provider: Vipul Lock Consult Reason/Comments: known Do you want consulting provider notified?: Yes Consult Physician Routine Consulting Provider: Jeanie Patricio Consult Reason/Comments: known Do you want consulting provider notified?: Yes 02/26/23 11:35 Consult Physician Routine Consulting Provider: Warren Padilla Consult Reason/Comments: gangrene, PAD Do you want consulting provider notified?: Yes Primary care physician: Geno Avilez [facility] Course: Final diagnoses Left foot diabetic ulcer with necrotic changes, cellulitis and gangrene, suspicious for ischemia, secondary to PAD. Status post abdominal aortogram and bilateral lower extremities runoff reporting intermediate to severe disease involving the left common iliac artery and intermediate disease involving the left external iliac artery. Occluded bilateral SFA on long segment.OP [employer]CRETE SPREADER recommended as per cardiology. Insulin-dependent diabetes mellitus, hyperglycemic, hemoglobin A1c 9.6, further teaching outpatient in clinic History of multiple bilateral lower extremity stents placed by Dr. Lock Hypertension Hyperlipidemia Hospital course: This is 62-year-old female with past medical history significant for PAD, multiple bilateral lower extremity stents placed by Dr. Cruz, diabetes mellitus and multiple other medical issues presented with cellulitis, necrotic changes, worsening infected left foot ulcers draining with gangrene. Maintained on IV antibiotics of vancomycin and Unasyn as per infectious disease. Creatinine 0.37. Afebrile. Denies sweats or chills. Reports chronic diarrhea. Reports pain with walking. Blood sugars uncontrolled, in the 300s, A1c 9.6. Vascular surgeon as well as Dr. Cruz consulted for further evaluation of left lower extremity. Denies any chest pain, palpitations or shortness of breath. O2 sats in the high 90s on room air. 02/27/23 diabetic med regimen adjusted yesterday with blood sugars better improving. Denies chills or fevers. Reports left foot pain currently controlled, worse at night. Evaluated by Dr. Cruz yesterday and he consulted vascular surgery. Evaluated by Dr. Padilla, vascular surgery yesterday, recommended to "continue with local wound care with Dr. Cruz for intervention ". Denies chest pain, palpitations or shortness of breath. Maintaining O2 sats in the high 90s on room air. Maintained on IV antibiotics of Unasyn and vancomycin. Creatinine 0.48. Afebrile. 02/28/2023 continues on IV fluids and antibiotics. Creatinine 0.42. Afebrile, denies chills or sweats. Reports pain unchanged, minimally worsened with we ightbearing. Patient expressing frustration over waiting on further recommendations per vascular surgery and cardiology regarding potential intervention. Potassium 3.3.. Potassium supplemented, magnesium added on, pending. Further recommendations as per vascular surgery and cardiology pending. AM Lantus further increased, continue close monitoring of blood sugars. Maintained on antibiotics of Unasyn and vancomycin as per infectious disease. Continue close monitoring of renal function with repeat Labs ordered for a.m. 03/01/23 Yesterday, patient underwent abdominal aortogram with lower extremity runoff with Dr. Lock, reporting intermediate to severe disease involving the left common iliac artery and intermediate disease involving the left external iliac artery. Occluded bilateral SFA on long segment. Tolerated procedure well. Per cardiology , further plan is for outpatient CONCRETE SPREADER of the left iliac and left SFA and has been cleared for discharge. Maintained on IV fluids. Continues on antibiotics of Unasyn and vancomycin as per infectious disease. Creatinine 0.38 .Afebrile. Left foot Pain unchanged, denies worsening. Labs pending. Blood sugars significantly improved. Denies chest pain, palpitations or shortness of breath. Maintaining O2 sats in the 90s on 2 L nasal cannula. Patient will be discharged home pending final DC recommendations and clearance per ID. The impression and plan of care has been dictated as directed. : I performed a history and examination of this patient, discussed the same with the dictator. I agree with the dictator's note ,documented as a scribe. Any additional findings or plans will be noted. Patient Condition at Discharge: Stable Plan - Discharge Summary New Discharge Prescriptions: Continue Atorvastatin [Lipitor] 80 mg PO HS Aspirin 81 mg PO DAILY Insulin NPH Hum/Reg Insulin Hm [NovoLIN 70-30 100 Unit/ml Vial] See Protocol SQ ACHS amLODIPine [Norvasc] 5 mg PO DAILY #30 tab cilostazoL [Pletal] 50 mg PO BID #60 tab Doxycycline Hyclate 100 mg PO BID 10 Days #20 tab Clopidogrel [Plavix] 75 mg PO DAILY 30 Days #30 tab Discharge Medication List Atorvastatin [Lipitor] 80 mg PO HS 06/26/16 [History] Aspirin 81 mg PO DAILY 10/08/17 [History] Clopidogrel [Plavix] 75 mg PO DAILY 30 Days #30 tab 01/05/21 [Rx] Insulin NPH Hum/Reg Insulin Hm [NovoLIN 70-30 100 Unit/ml Vial] See Protocol SQ ACHS 02/17/23 [History] Doxycycline Hyclate 100 mg PO BID 10 Days #20 tab 02/22/23 [Rx] amLODIPine [Norvasc] 5 mg PO DAILY #30 tab 02/22/23 [Rx] cilostazoL [Pletal] 50 mg PO BID #60 tab 02/22/23 [Rx] Follow up Appointment(s)/Referral(s): Geno Avilez DO [Primary Care Provider] - 3 Days Activity/Diet/Wound Care/Special Instructions: Per cardiology, Dr. Lock will schedule patient outpatient for intervention . Further diabetic education in clinic with PCP .Close monitoring of Accu-Cheks, before meals and at bedtime, maintain log and take to follow-up with PCP for further recommendations. Discharge Disposition: HOME WITH HOME HEALTH SERVICES
[2023-03-02 12:17] LABS: HCT 33.9 % (34.0-46.0); HGB 11.7 gm/dL (11.4-16.0); MCH 29.2 pg (25.0-35.0); MCHC 34.4 g/dL (31.0-37.0); MCV 84.9 fL (80.0-100.0); Mean Platelet Volume 7.8; Platelet Count 227 k/uL (150-450); Poikilocytosis Slight; RBC 3.99 m/uL (3.80-5.40); RDW 14.6 % (11.5-15.5); WBC 6.3 k/uL (3.8-10.6)
[2023-03-02 12:57] LABS: Glucose,Whole Blood 209 mg/dL (70-110)
--- NOTE | 2023-03-02 13:26 | P.PN ---
Progress Note - Text 62-year-old female patient has severe peripheral vascular disease including left common iliac external iliac SFA patient is under care of Dr. Cruz patient will be going for intervention left big toe and the fifth toe has a scab care of infectious diseases IV antibiotic medihoney gel at this time continue the local wound care discussed with Dr. Cruz he will arrange for intervention
[2023-03-02 14:42] LABS: Magnesium 1.6 mg/dL (1.5-2.4)
[2023-03-02 15:03] LABS: BUN/Creat Ratio <7.00 Ratio (12.00-20.00); Blood Urea Nitrogen <3.5 mg/dL (9.0-27.0); Calcium 8.2 mg/dL (8.7-10.3); Chloride 105 mmol/L (96-109); Glucose 193 mg/dL (70-110); Potassium 3.2 mmol/L (3.5-5.5); Sodium 141 mmol/L (135-145)
[2023-03-02] MEDS: POTASSIUM CHLORIDE ER 20 MEQ TAB.ER PO SCH ×4 (15:30→23:22)
[2023-03-02 17:05] LABS: Glucose,Whole Blood 178 mg/dL (70-110)
[2023-03-02] MEDS: MAGNESIUM SULFATE-D5W PMX 1 GM in DEXTROSE/WATER 1 100ML.BAG IVPB SCH ×2 (18:36→21:22)
[2023-03-02 20:34] LABS: Glucose,Whole Blood 141 mg/dL (70-110)
[2023-03-02] MEDS: ATORVASTATIN 80 MG TAB PO SCH (20:47)
--- NOTE | 2023-03-02 21:15 | P.PN ---
Subjective Progress Note Date: 03/02/23 Principal diagnosis: Reason for follow-up is left big toe and fifth toe gangrene and cellulitis Patient is a 62-year-old female with a past medical history of pain for diabetes mellitus hypertension hyperlipidemia reflux recent [facility] in the left big toe medial side necrotic wound now presenting back to the hospital with left fifth toe gangrene and cellulitis along with the left big toe medial aspect necrotic wound, the patient is status post angiogram completed on 02/28/2023 with evidence of intermediate to severe disease involving left, iliac artery and intermediate disease involving the left external iliac artery and did have occluded bilateral SFA On today's evaluation that is 03/02/2023 patient remains to be afebrile, patient is breathing comfortably on room air without need for supplemental oxygen, the patient denies any chest pain shortness of breath or cough no abdominal pain or diarrhea. Patient denies any worsening pain to the left big and fifth toe Patient did have white count was 6.3 and creatinine 0.5 Objective - Vital Signs Vital signs: Vital Signs Temp 97.8 F 03/02/23 07:31 Pulse 55 L 03/02/23 07:31 Resp 16 03/02/23 07:31 BP 140/75 03/02/23 07:31 Pulse Ox 98 03/02/23 07:31 FiO2 Intake & Output 03/01/23 03/02/23 03/02/23 18:59 06:59 18:59 Intake Total 118 Balance 118 Intake: Oral 118 Other: # Voids 0 - Exam GENERAL DESCRIPTION: An middle-aged female lying in bed in no distress RESPIRATORY SYSTEM: Unlabored breathing , decreased breath sounds at bases HEART: S1 S2 regular rate and rhythm , ABDOMEN: Soft , no tenderness EXTREMITIES: Left fifth toe with necrotic changes and a necrotic wound on the medial aspect of the left big toe. - Labs CBC & Chem 7: 03/02/23 11:45 03/02/23 11:45 Labs: Abnormal Lab Results - Last 24 Hours (Table) 03/01/23 03/01/23 03/01/23 Range/Units 12:25 17:39 20:23 POC Glucose (mg/dL) 216 H 164 H 156 H (70-110) mg/dL 03/02/23 Range/Units 06:21 POC Glucose (mg/dL) 186 H (70-110) mg/dL Assessment and Plan (1) Cellulitis of left foot Current Visit: Yes Status: Acute Code(s): L03.116 - CELLULITIS OF LEFT LOWER LIMB SNOMED Code(s): 29775958271333778 (2) Diabetic ulcer of toe of left foot Current Visit: Yes Status: Acute Code(s): E11.621 - TYPE 2 DIABETES MELLITUS WITH FOOT ULCER; L97.529 - NON-PRESSURE CHRONIC ULCER OTH PRT LEFT FOOT W UNSP SEVERITY SNOMED Code(s): 511273211 Plan: 1patient with left diabetic foot infection in this patient who initially presented with left big toe medial side necrotic changes and cellulitis now presenting with left fifth toe gangrene and cellulitis highly clinically suspicious for ischemia to be the likely etiology 2patient is status post angiogram to the left lower extremity with evidence of severe disease to the left common iliac artery as well as left external iliac artery awaiting further intervention per cardiology 3-patient currently covered with vancomycin and Unasyn which will be continued while inpatient and awaiting further surgical intervention per cardiology and vascular surgery Dictation was produced using [employer] dictation software. please excuse any gramm atical, word or spelling errors. Time with Patient: Less than 30
[2023-03-03] MEDS: VANCOMYCIN 1,250 MG in SODIUM CHLORIDE 0.9% 250 ML IVPB SCH ×3 (00:10→16:12)
[2023-03-03] MEDS: HYDROmorphone 1 MG/ML 1 ML SYRINGE IVP PRN ×4 (01:40→21:29)
[2023-03-03 06:28] LABS: Glucose,Whole Blood 205 mg/dL (70-110)
[2023-03-03] MEDS: AMPICILLIN-SULBACTAM 3 GM in SODIUM CHLORIDE 0.9% 100 ML IVPB SCH ×4 (06:35→23:09)
[2023-03-03] MEDS: SODIUM CHLORIDE 0.9% 1,000 ML IV SCH ×2 (06:36→18:34)
[2023-03-03] MEDS: INSULIN DETEMIR (LEVEMIR) 100 UNIT/ML SYR SQ SCH ×2 (06:36→21:27)
[2023-03-03] MEDS: INSULIN ASPART (NovoLOG) 100 UNIT/ML VIAL SQ SCH ×7 (06:36→21:28)
[2023-03-03] MEDS ORDERED: VANCOMYCIN TROUGH DUE 1 EACH MISC MISCELLANE ONE (07:00)
[2023-03-03] MEDS: ASPIRIN 81 MG PO SCH (09:04)
[2023-03-03] MEDS: CLOPIDOGREL 75 MG TAB PO SCH (09:04)
[2023-03-03] MEDS: LOPERAMIDE 2 MG CAP PO SCH ×4 (09:04→21:27)
[2023-03-03] MEDS: cilostazoL 100 MG TAB PO SCH ×2 (09:05→21:27)
[2023-03-03] MEDS: amLODIPine 5 MG TAB PO SCH (09:05)
[2023-03-03] MEDS: PANTOPRAZOLE 40 MG/10 ML VIAL IVP SCH (09:06)
[2023-03-03 10:05] LABS: African American GFR (CKD) >90 (>60 ml/min/1.73 sqM); Anion Gap 8 mmol/L; Blood Urea Nitrogen <2 mg/dL (7-17); Calcium 8.2 mg/dL (8.4-10.2); Carbon Dioxide 27 mmol/L (22-30); Chloride 104 mmol/L (98-107); Glucose 206 mg/dL (74-99); Non-African American GFR(CKD) >90 (>60 ml/min/1.73 sqM); Potassium 3.5 mmol/L (3.5-5.1); Sodium 139 mmol/L (137-145)
[2023-03-03 12:42] LABS: Glucose,Whole Blood 191 mg/dL (70-110)
--- NOTE | 2023-03-03 12:58 | P.PN ---
Subjective Progress Note Date: 03/03/23 Principal diagnosis: Reason for follow-up is left big toe and fifth toe gangrene and cellulitis Patient is a 62-year-old female with a past medical history of pain for diabetes mellitus hypertension hyperlipidemia reflux recent [facility] hospital in the left big toe medial side necrotic wound now presenting back to the hospital with left fifth toe gangrene and cellulitis along with the left big toe medial aspect necrotic wound, the patient is status post angiogram completed on 02/28/2023 with evidence of intermediate to severe disease involving left, iliac artery and intermediate disease involving the left external iliac artery and did have occluded bilateral SFA On today's evaluation that is 03/03/2023 patient continues to be afebrile, patient is breathing comfortably on room air , the patient denies chest pain shortness of breath or cough patient denies have any nausea no vomiting no abdominal pain or diarrhea patient pain to the left big and fifth toe is currently controlled Patient did have white count was 6.3 as of yesterday and creatinine 0.37 Objective - Vital Signs Vital signs: Vital Signs Temp 97.3 F L 03/03/23 07:35 Pulse 75 03/03/23 07:35 Resp 16 03/03/23 07:35 BP 123/77 03/03/23 07:35 Pulse Ox 91 L 03/03/23 07:35 FiO2 Intake & Output 03/02/23 03/03/23 03/03/23 18:59 06:59 18:59 Intake Total 118 118 590 Balance 118 118 590 Intake: Oral 118 118 590 Other: # Voids 1 2 - Exam GENERAL DESCRIPTION: An middle-aged female lying in bed in no distress RESPIRATORY SYSTEM: Unlabored breathing , decreased breath sounds at bases HEART: S1 S2 regular rate and rhythm , ABDOMEN: Soft , no tenderness EXTREMITIES: Left fifth toe and right big toe are currently dressed minimal drainage on the dressing - Labs CBC & Chem 7: 03/02/23 11:45 03/03/23 07:48 Labs: Abnormal Lab Results - Last 24 Hours (Table) 03/02/23 03/02/23 03/02/23 Range/Units 11:45 12:54 17:04 Potassium 3.2 L (3.5-5.5) mmol/L BUN <3.5 L (9.0-27.0) mg/dL Creatinine 0.5 L (0.6-1.5) mg/dL BUN/Creatinine Ratio <7.00 L (12.00-20.00) Ratio Glucose 193 H (70-110) mg/dL POC Glucose (mg/dL) 209 H 178 H (70-110) mg/dL Calcium 8.2 L (8.7-10.3) mg/dL 03/02/23 03/03/23 03/03/23 Range/Units 20:32 06:27 07:48 Potassium (3.5-5.5) mmol/L BUN <2 L (9.0-27.0) mg/dL Creatinine 0.37 L (0.6-1.5) mg/dL BUN/Creatinine Ratio (12.00-20.00) Ratio Glucose 206 H (70-110) mg/dL POC Glucose (mg/dL) 141 H 205 H (70-110) mg/dL Calcium 8.2 L (8.7-10.3) mg/dL 03/03/23 Range/Units 12:41 Potassium (3.5-5.5) mmol/L BUN (9.0-27.0) mg/dL Creatinine (0.6-1.5) mg/dL BUN/Creatinine Ratio (12.00-20.00) Ratio Glucose (70-110) mg/dL POC Glucose (mg/dL) 191 H (70-110) mg/dL Calcium (8.7-10.3) mg/dL Assessment and Plan (1) Cellulitis of left foot Current Visit: Yes Status: Acute Code(s): L03.116 - CELLULITIS OF LEFT LOWER LIMB SNOMED Code(s): 27516466396559027 (2) Diabetic ulcer of toe of left foot Current Visit: Yes Status: Acute Code(s): E11.621 - TYPE 2 DIABETES MELLITUS WITH FOOT ULCER; L97.529 - NON-PRESSURE CHRONIC ULCER OTH PRT LEFT FOOT W UNSP SEVERITY SNOMED Code(s): 725320344 Plan: 1patient with left diabetic foot infection in this patient who initially presented with left big toe medial side necrotic changes and cellulitis now presenting with left fifth toe gangrene and cellulitis highly clinically parisi spicious for ischemia to be the likely etiology 2patient is status post angiogram to the left lower extremity with evidence of severe disease to the left common iliac artery as well as left external iliac artery awaiting further intervention per cardiology 3-patient to continue with vancomycin and Unasyn while watching her kidney function closely creatinine is currently normal awaiting further vascular surgical intervention Dictation was produced using [employer] dictation software. please excuse any grammatical, word or spelling errors. Time with Patient: Less than 30
--- NOTE | 2023-03-03 15:43 | P.PN ---
Subjective Progress Note Date: 03/03/23 62-year-old female with past medical history significant for PAD, multiple bilateral lower extremity stents placed by Dr. Cruz, diabetes mellitus and multiple other medical issues presented with cellulitis, necrotic changes, worsening infected left foot ulcers draining with gangrene. Maintained on IV an tibiotics of vancomycin and Unasyn as per infectious disease. Creatinine 0.37. Afebrile. Denies sweats or chills. Reports chronic diarrhea. Reports pain with walking. Blood sugars uncontrolled, in the 300s, A1c 9.6. Vascular surgeon as well as Dr. Cruz consulted for further evaluation of left lower extremity. Denies any chest pain, palpitations or shortness of breath. O2 sats in the high 90s on room air. 02/27/23 diabetic med regimen adjusted yesterday with blood sugars better improvi ng. Denies chills or fevers. Reports left foot pain currently controlled, worse at night. Evaluated by Dr. Cruz yesterday and he consulted vascular surgery. Evaluated by Dr. Padilla, vascular surgery yesterday, recommended to "continue with local wound care with Dr. Cruz for intervention ". Denies chest pain, palpitations or shortness of breath. Maintaining O2 sats in the high 90s on room air. Maintained on IV antibiotics of Unasyn and vancomycin. Creatinine 0.48. Afebrile. 02/28/2023 continues on IV fluids and antibiotics. Creatinine 0.42. Afebrile, denies chills or sweats. Reports pain unchanged, minimally worsened with weightbearing. Patient expressing frustration over waiting on further recommendations per vascular surgery and cardiology regarding potential intervention. Potassium 3.3.. Potassium supplemented, magnesium added on, pending. Further recommendations as per vascular surgery and cardiology pending. AM Lantus further increased, continue close monitoring of blood sugars. Maintained on antibiotics of Unasyn and vancomycin as per infectious disease. Continue close monitoring of renal function with repeat Labs ordered for a.m. 03/01/23 Yesterday, patient underwent abdominal aortogram with lower extremity runoff with Dr. Lock, reporting intermediate to severe disease involving the left common iliac artery and intermediate disease involving the left external iliac artery. Occluded bilateral SFA on long segment. Tolerated procedure well. Per cardiology , further plan is for outpatient SUPPL[employer] CH[employer] SYSTEMS MANAGER of the left iliac and left SFA and has been cleared for discharge. Maintained on IV fluids. Continues on antibiotics of Unasyn and vancomycin as per infectious disease. Creatinine 0.38 .Afebrile. Left foot Pain unchanged, denies worsening. Labs pending. Blood sugars significantly improved. Denies chest pain, palpitations or shortness of breath. Maintaining O2 sats in the 90s on 2 L nasal cannula. Patient will be discharged home pending final DC recommendations and clearance per ID. * 03/03/[address] Damon: Continue patient on IV antibiotic, discharge planning to be done once cleared by infectious disease, patient does complain of foot discomfort,. Continued follow-up on renal profile and vancomycin trough levels T8 patient receiving Unasyn and vancomycin as well PHYSICAL EXAMINATION: GENERAL: The patient is alert and oriented x3, ill appearance, pale appearance HEENT: Pupils are round and equally reacting to light. EOMI. CARDIOVASCULAR: S1 and S2 present. No murmurs, rubs, or gallops. PULMONARY: Chest is clear to auscultation, no wheezing or crackles. ABDOMEN: Soft, nontender, nondistended, normoactive bowel sounds. No palpable organomegaly. MUSCULOSKELETAL: No joint swelling or deformity. EXTREMITIES: Left foot bandage NEUROLOGICAL: Gross neurological examination did not reveal any focal deficits. Objective - Vital Signs Vital signs: Vital Signs Temp 97.8 F 03/03/23 14:25 Pulse 76 03/03/23 14:25 Resp 15 03/03/23 14:25 BP 126/77 03/03/23 14:25 Pulse Ox 95 03/03/23 14:25 FiO2 Intake & Output 03/02/23 03/03/23 03/03/23 18:59 06:59 18:59 Intake Total 118 118 708 Balance 118 118 708 Intake: Oral 118 118 708 Other: # Voids 1 2 - Labs CBC & Chem 7: 03/02/23 11:45 03/03/23 07:48 Labs: Abnormal Lab Results - Last 24 Hours (Table) 03/02/23 03/02/23 03/03/23 Range/Units 17:04 20:32 06:27 BUN (7-17) mg/dL Creatinine (0.52-1.04) mg/dL Glucose (74-99) mg/dL POC Glucose (mg/dL) 178 H 141 H 205 H (70-110) mg/dL Calcium (8.4-10.2) mg/dL 03/03/23 03/03/23 Range/Units 07:48 12:41 BUN <2 L (7-17) mg/dL Creatinine 0.37 L (0.52-1.04) mg/dL Glucose 206 H (74-99) mg/dL POC Glucose (mg/dL) 191 H (70-110) mg/dL Calcium 8.2 L (8.4-10.2) mg/dL Assessment and Plan Assessment: Assessment and plan * left foot infection with concern for ischemia 6 due to peripheral arterial disease * Diabetic foot infection left lower extremity * Peripheral artery disease with PCI * Diabetes mellitus type 2 * In regards to left lower extremity infection continue patient on Unasyn and vancomycin, continue with wound care * In regards to diabetic foot infection, continue with wound care, in regards to diabetes Accu-Cheks before meals at bedtime continue Levemir and NovoLog * In regards to peripheral arterial disease continue aspirin, Lipitor, Detrol, Plavix * In regards to diabetes mellitus continue patient on correctional insulin and Levemir * CODE STATUS is full code
[2023-03-03 17:26] LABS: Glucose,Whole Blood 145 mg/dL (70-110)
[2023-03-03 20:41] LABS: Glucose,Whole Blood 152 mg/dL (70-110)
[2023-03-03] MEDS: ATORVASTATIN 80 MG TAB PO SCH (21:26)
[2023-03-04] MEDS: VANCOMYCIN 1,250 MG in SODIUM CHLORIDE 0.9% 250 ML IVPB SCH ×3 (00:58→16:09)
[2023-03-04] MEDS: HYDROmorphone 1 MG/ML 1 ML SYRINGE IVP PRN ×5 (01:00→21:54)
[2023-03-04] MEDS: ONDANSETRON 4 MG/2 ML VIAL IVP PRN ×2 (04:00→21:54)
[2023-03-04] MEDS: AMPICILLIN-SULBACTAM 3 GM in SODIUM CHLORIDE 0.9% 100 ML IVPB SCH ×4 (05:56→23:55)
[2023-03-04] MEDS: SODIUM CHLORIDE 0.9% 1,000 ML IV SCH ×2 (05:56→18:04)
[2023-03-04 06:03] LABS: Glucose,Whole Blood 220 mg/dL (70-110)
[2023-03-04 07:52] LABS: Glucose,Whole Blood 200 mg/dL (70-110)
[2023-03-04] MEDS: cilostazoL 100 MG TAB PO SCH ×2 (08:45→21:32)
[2023-03-04] MEDS: amLODIPine 5 MG TAB PO SCH (08:46)
[2023-03-04] MEDS: ASPIRIN 81 MG PO SCH (08:46)
[2023-03-04] MEDS: CLOPIDOGREL 75 MG TAB PO SCH (08:47)
[2023-03-04] MEDS: LOPERAMIDE 2 MG CAP PO SCH ×4 (08:47→21:32)
[2023-03-04] MEDS: INSULIN DETEMIR (LEVEMIR) 100 UNIT/ML SYR SQ SCH ×2 (08:48→21:31)
[2023-03-04] MEDS: INSULIN ASPART (NovoLOG) 100 UNIT/ML VIAL SQ SCH ×7 (08:48→21:31)
[2023-03-04] MEDS: PANTOPRAZOLE 40 MG/10 ML VIAL IVP SCH (08:49)
[2023-03-04 10:03] LABS: HCT 32.7 % (37.2-46.3); HGB 10.6 g/dL (12.0-15.0); MCH 28.2 pg (27.0-32.0); MCHC 32.4 g/dL (32.0-37.0); Mean Platelet Volume 9.7 FL (9.5-12.2); NRBC Per 100 WBC 0 X 10*3/uL (0.00-0.01); Platelet Count 234 X 10*3/uL (140-440); RBC 3.76 X 10*6/uL (4.10-5.20); RDW 14.3 % (11.5-14.5); WBC 6.61 X 10*3/uL (4.50-10.00)
[2023-03-04 10:16] LABS: BUN/Creat Ratio <5.83 Ratio (12.00-20.00); Blood Urea Nitrogen <3.5 mg/dL (9.0-27.0); Calcium 8.6 mg/dL (8.7-10.3); Carbon Dioxide 25.2 mmol/L (21.6-31.8); Chloride 103 mmol/L (96-109); Glucose 208 mg/dL (70-110); Potassium 3.6 mmol/L (3.5-5.5); Sodium 141 mmol/L (135-145)
[2023-03-04] MEDS ORDERED: FAMOTIDINE 20 MG TAB PO PRN (12:23)
[2023-03-04 12:27] LABS: Glucose,Whole Blood 219 mg/dL (70-110)
--- NOTE | 2023-03-04 14:44 | P.PN ---
Subjective Progress Note Date: 03/04/23 62-year-old female with past medical history significant for PAD, multiple bilateral lower extremity stents placed by Dr. Cruz, diabetes mellitus and multiple other medical issues presented with cellulitis, necrotic changes, worsening infected left foot ulcers draining with gangrene. Maintained on IV an tibiotics of vancomycin and Unasyn as per infectious disease. Creatinine 0.37. Afebrile. Denies sweats or chills. Reports chronic diarrhea. Reports pain with walking. Blood sugars uncontrolled, in the 300s, A1c 9.6. Vascular surgeon as well as Dr. Cruz consulted for further evaluation of left lower extremity. Denies any chest pain, palpitations or shortness of breath. O2 sats in the high 90s on room air. 02/27/23 diabetic med regimen adjusted yesterday with blood sugars better improvi ng. Denies chills or fevers. Reports left foot pain currently controlled, worse at night. Evaluated by Dr. Cruz yesterday and he consulted vascular surgery. Evaluated by Dr. Padilla, vascular surgery yesterday, recommended to "continue with local wound care with Dr. Cruz for intervention ". Denies chest pain, palpitations or shortness of breath. Maintaining O2 sats in the high 90s on room air. Maintained on IV antibiotics of Unasyn and vancomycin. Creatinine 0.48. Afebrile. 02/28/2023 continues on IV fluids and antibiotics. Creatinine 0.42. Afebrile, denies chills or sweats. Reports pain unchanged, minimally worsened with weightbearing. Patient expressing frustration over waiting on further recommendations per vascular surgery and cardiology regarding potential intervention. Potassium 3.3.. Potassium supplemented, magnesium added on, pending. Further recommendations as per vascular surgery and cardiology pending. AM Lantus further increased, continue close monitoring of blood sugars. Maintained on antibiotics of Unasyn and vancomycin as per infectious disease. Continue close monitoring of renal function with repeat Labs ordered for a.m. 03/01/23 Yesterday, patient underwent abdominal aortogram with lower extremity runoff with Dr. Lock, reporting intermediate to severe disease involving the left common iliac artery and intermediate disease involving the left external iliac artery. Occluded bilateral SFA on long segment. Tolerated procedure well. Per cardiology , further plan is for outpatient WOOD PREPARATION SUPERVISOR of the left iliac and left SFA and has been cleared for discharge. Maintained on IV fluids. Continues on antibiotics of Unasyn and vancomycin as per infectious disease. Creatinine 0.38 .Afebrile. Left foot Pain unchanged, denies worsening. Labs pending. Blood sugars significantly improved. Denies chest pain, palpitations or shortness of breath. Maintaining O2 sats in the 90s on 2 L nasal cannula. Patient will be discharged home pending final DC recommendations and clearance per ID. * 03/03/[address] Damon: Continue patient on IV antibiotic, discharge planning to be done once cleared by infectious disease, patient does complain of foot discomfort,. Continued follow-up on renal profile and vancomycin trough levels T8 patient receiving Unasyn and vancomycin as well * 03/04/2023: Patient seen and evaluated bedside, continue patient on IV antibiotic, infectious disease following, continue with wound care final plan per infectious disease once cleared for discharge patient to be discharged home patient is in agreement. CBC remained stable, renal profile and electrolyte profile normal CRP within normal limits PHYSICAL EXAMINATION: GENERAL: The patient is alert and oriented x3, ill appearance, pale appearance HEENT: Pupils are round and equally reacting to light. EOMI. CARDIOVASCULAR: S1 and S2 present. No murmurs, rubs, or gallops. PULMONARY: Chest is clear to auscultation, no wheezing or crackles. ABDOMEN: Soft, nontender, nondistended, normoactive bowel sounds. No palpable organomegaly. MUSCULOSKELETAL: No joint swelling or deformity. EXTREMITIES: Left foot bandage NEUROLOGICAL: Gross neurological examination did not reveal any focal deficits. Objective - Vital Signs Vital signs: Vital Signs Temp 98.0 F 03/04/23 07:25 Pulse 85 03/04/23 07:25 Resp 16 03/04/23 07:25 BP 104/60 03/04/23 07:25 Pulse Ox 90 L 03/04/23 07:25 FiO2 Intake & Output 03/03/23 03/04/23 03/04/23 18:59 06:59 18:59 Intake Total 944 236 Balance 944 236 Intake: Oral 944 236 Other: # Voids 2 1 - Labs CBC & Chem 7: 03/04/23 05:32 03/04/23 05:32 Labs: Abnormal Lab Results - Last 24 Hours (Table) 03/03/23 03/03/23 03/04/23 Range/Units 17:25 20:39 05:32 RBC 3.76 L (4.10-5.20) X 10*6/uL Hgb 10.6 L (12.0-15.0) g/dL Hct 32.7 L (37.2-46.3) % Anion Gap (4.00-12.00) mmol/L BUN (9.0-27.0) mg/dL BUN/Creatinine Ratio (12.00-20.00) Ratio Glucose (70-110) mg/dL POC Glucose (mg/dL) 145 H 152 H (70-110) mg/dL Calcium (8.7-10.3) mg/dL 03/04/23 03/04/23 03/04/23 Range/Units 05:32 06:02 07:50 RBC (4.10-5.20) X 10*6/uL Hgb (12.0-15.0) g/dL Hct (37.2-46.3) % Anion Gap 12.80 H (4.00-12.00) mmol/L BUN <3.5 L (9.0-27.0) mg/dL BUN/Creatinine Ratio <5.83 L (12.00-20.00) Ratio Glucose 208 H (70-110) mg/dL POC Glucose (mg/dL) 220 H 200 H (70-110) mg/dL Calcium 8.6 L (8.7-10.3) mg/dL 03/04/23 Range/Units 12:25 RBC (4.10-5.20) X 10*6/uL Hgb (12.0-15.0) g/dL Hct (37.2-46.3) % Anion Gap (4.00-12.00) mmol/L BUN (9.0-27.0) mg/dL BUN/Creatinine Ratio (12.00-20.00) Ratio Glucose (70-110) mg/dL POC Glucose (mg/dL) 219 H (70-110) mg/dL Calcium (8.7-10.3) mg/dL Assessment and Plan Assessment: Assessment and plan * left foot infection with concern for chronic ischemia due to peripheral arterial disease * Diabetic foot infection left lower extremity * Peripheral artery disease with intervention * Diabetes mellitus type 2 * In regards to left lower extremity infection continue patient on Unasyn and vancomycin, continue with wound care * In regards to diabetic foot infection, continue with wound care, in regards to diabetes Accu-Cheks before meals at bedtime continue Levemir and NovoLog * In regards to peripheral arterial disease continue aspirin, Lipitor, Detrol, Plavix * In regards to diabetes mellitus continue patient on correctional insulin and Levemir * CODE STATUS is full code Time with Patient: Greater than 30
[2023-03-04 17:36] LABS: Glucose,Whole Blood 146 mg/dL (70-110)
[2023-03-04 20:27] LABS: Glucose,Whole Blood 213 mg/dL (70-110)
[2023-03-04] MEDS: ATORVASTATIN 80 MG TAB PO SCH (21:32)
[2023-03-05] MEDS: VANCOMYCIN 1,250 MG in SODIUM CHLORIDE 0.9% 250 ML IVPB SCH ×3 (00:32→15:06)
[2023-03-05] MEDS: HYDROmorphone 1 MG/ML 1 ML SYRINGE IVP PRN ×3 (00:34→15:15)
[2023-03-05 06:06] LABS: Glucose,Whole Blood 219 mg/dL (70-110)
[2023-03-05] MEDS ORDERED: VANCOMYCIN TROUGH DUE 1 EACH MISC MISCELLANE ONE (07:00)
[2023-03-05] MEDS: AMPICILLIN-SULBACTAM 3 GM in SODIUM CHLORIDE 0.9% 100 ML IVPB SCH ×2 (08:21→12:19)
[2023-03-05] MEDS: INSULIN ASPART (NovoLOG) 100 UNIT/ML VIAL SQ SCH ×4 (08:22→12:59)
[2023-03-05] MEDS: INSULIN DETEMIR (LEVEMIR) 100 UNIT/ML SYR SQ SCH (08:22)
[2023-03-05] MEDS: LOPERAMIDE 2 MG CAP PO SCH ×2 (08:23→12:58)
[2023-03-05] MEDS: CLOPIDOGREL 75 MG TAB PO SCH (08:23)
[2023-03-05] MEDS: amLODIPine 5 MG TAB PO SCH (08:23)
[2023-03-05] MEDS: PANTOPRAZOLE 40 MG/10 ML VIAL IVP SCH (08:23)
[2023-03-05] MEDS: cilostazoL 100 MG TAB PO SCH (08:23)
[2023-03-05] MEDS: ASPIRIN 81 MG PO SCH (08:23)
[2023-03-05] MEDS: SODIUM CHLORIDE 0.9% 1,000 ML IV SCH (08:24)
[2023-03-05 08:28] LABS: African American GFR (CKD) >90 (>60 ml/min/1.73 sqM); Non-African American GFR(CKD) >90 (>60 ml/min/1.73 sqM)
[2023-03-05 12:09] LABS: Glucose,Whole Blood 205 mg/dL (70-110)
[2023-03-05 15:13] VITALS: BP 100/61; PULSE 77; RESP 18; TEMP 98.4
--- NOTE | 2023-03-06 18:06 | P.DS ---
Providers Date of admission: 02/26/23 09:08 Expected date of discharge: 03/05/23 Attending physician: Jeff Damon MD Consults: 02/23/23 23:22 Consult Physician Routine Consulting Provider: Vipul Lock Consult Reason/Comments: known Do you want consulting provider notified?: Yes Consult Physician Routine Consulting Provider: Jeanie Patricio Consult Reason/Comments: known Do you want consulting provider notified?: Yes 02/26/23 11:35 Consult Physician Routine Consulting Provider: Warren Padilla Consult Reason/Comments: gangrene, PAD Do you want consulting provider notified?: Yes Primary care physician: Geno Avilez [facility] Course: Final diagnoses Left foot diabetic ulcer with necrotic changes, cellulitis and gangrene, suspicious for ischemia, secondary to PAD. Status post abdominal aortogram and bilateral lower extremities runoff reporting intermediate to severe disease involving the left common iliac artery and intermediate disease involving the left external iliac artery. Occluded bilateral SFA on long segment.OP LOCKSTITCH SHOULDER JOINER recommended as per cardiology. Insulin-dependent diabetes mellitus, hyperglycemic, hemoglobin A1c 9.6, further teaching outpatient in clinic History of multiple bilateral lower extremity stents placed by Dr. Lock Hypertension Hyperlipidemia Hospital course: This is 62-year-old female with past medical history significant for PAD, multiple bilateral lower extremity stents placed by Dr. Cruz, diabetes mellitus and multiple other medical issues presented with cellulitis, necrotic changes, worsening infected left foot ulcers draining with gangrene. Maintained on IV antibiotics of vancomycin and Unasyn as per infectious disease. Creatinine 0.37. Afebrile. Denies sweats or chills. Reports chronic diarrhea. Reports p ain with walking. Blood sugars uncontrolled, in the 300s, A1c 9.6. Vascular surgeon as well as Dr. Cruz consulted for further evaluation of left lower extremity. Denies any chest pain, palpitations or shortness of breath. O2 sats in the high 90s on room air. 02/27/23 diabetic med regimen adjusted yesterday with blood sugars better improving. Denies chills or fevers. Reports left foot pain currently controlled, worse at night. Evaluated by Dr. Cruz yesterday and he consulted vascular surgery. Evaluated by Dr. Padilla, vascular surgery yesterday, recommended to "continue with local wound care with Dr. Cruz for intervention ". Denies chest pain, palpitations or shortness of breath. Maintaining O2 sats in the high 90s on room air. Maintained on IV antibiotics of Unasyn and vancom ycin. Creatinine 0.48. Afebrile. 02/28/2023 continues on IV fluids and antibiotics. Creatinine 0.42. Afebrile, denies chills or sweats. Reports pain unchanged, minimally worsened with weightbearing. Patient expressing frustration over waiting on further recommendations per vascular surgery and cardiology regarding potential intervention. Potassium 3.3.. Potassium supplemented, magnesium added on, pending. Further recommendations as per vascular surgery and cardiology pending. AM Lantus further increased, continue close monitoring of blood sugars. Maintained on antibiotics of Unasyn and vancomycin as per infectious disease. Continue close monitoring of renal function with repeat Labs ordered for a.m. 03/01/23 Yesterday, patient underwent abdominal aortogram with lower extremity runoff with Dr. Lock, reporting intermediate to severe disease involving the left common iliac artery and intermediate disease involving the left external iliac artery. Occluded bilateral SFA on long segment. Tolerated procedure well. Per cardiology , further plan is for outpatient LOCKSTITCH SHOULDER JOINER of the left iliac and left SFA and has been cleared for discharge. Maintained on IV fluids. Continues on antibiotics of Unasyn and vancomycin as per infectious disease. Creatinine 0.38 .Afebrile. Left foot Pain unchanged, denies worsening. Labs pending. Blood sugars significantly improved. Denies chest pain, palpitations or shortness of breath. Maintaining O2 sats in the 90s on 2 L nasal cannula. Patient will be discharged home pending final DC recommendations and clearance per ID. 03/02/2023 no overnight events. Maintained on IV antibiotics as per ID. VSS. Afebrile, maintaining O2 sats in the high 90s on room air. Current labs pending. Denies worsening of left foot pain. Denies chest pain, palpitations or shortness of breath. Cardiology recommending outpatient LOCKSTITCH SHOULDER JOINER. Patient will be discharged in a stable condition with guarded prognosis pending final DC recommendations and clearance per infectious disease. Cardiology recommending outpatient LOCKSTITCH SHOULDER JOINER as per Dr. Lock. Patient will be discharged home in a stable condition with guarded prognosis and continue on her antibiotics of doxycycline. Denies chest pain, palpitations or shortness of breath. Reports pain controlled currently. The impression and plan of care has been dictated as directed. : I performed a history and examination of this patient, discussed the same with the dictator. I agree with the dictator's note ,documented as a scribe. Any additional findings or plans will be noted. Patient Condition at Discharge: Stable Plan - Discharge Summary New Discharge Prescriptions: Continue Atorvastatin [Lipitor] 80 mg PO HS Aspirin 81 mg PO DAILY Insulin NPH Hum/Reg Insulin Hm [NovoLIN 70-30 100 Unit/ml Vial] See Protocol SQ ACHS amLODIPine [Norvasc] 5 mg PO DAILY #30 tab cilostazoL [Pletal] 50 mg PO BID #60 tab Doxycycline Hyclate 100 mg PO BID 10 Days #20 tab Clopidogrel [Plavix] 75 mg PO DAILY 30 Days #30 tab Discharge Medication List Atorvastatin [Lipitor] 80 mg PO HS 06/26/16 [History] Aspirin 81 mg PO DAILY 10/08/17 [History] Clopidogrel [Plavix] 75 mg PO DAILY 30 Days #30 tab 01/05/21 [Rx] Insulin NPH Hum/Reg Insulin Hm [NovoLIN 70-30 100 Unit/ml Vial] See Protocol SQ ACHS 02/17/23 [History] Doxycycline Hyclate 100 mg PO BID 10 Days #20 tab 02/22/23 [Rx] amLODIPine [Norvasc] 5 mg PO DAILY #30 tab 02/22/23 [Rx] cilostazoL [Pletal] 50 mg PO BID #60 tab 02/22/23 [Rx] Follow up Appointment(s)/Referral(s): Geno Avilez DO [Primary Care Provider] - 3 Days Activity/Diet/Wound Care/Special Instructions: Per cardiology, Dr. Lock will schedule patient outpatient for intervention . Further diabetic education in clinic with PCP .Close monitoring of Accu-Cheks, before meals and at bedtime, maintain log and take to follow-up with PCP for further recommendations. Discharge Disposition: HOME WITH HOME HEALTH SERVICES
--- NOTE | 2023-03-12 14:02 | P.PN ---
Subjective Progress Note Date: 03/04/23 Principal diagnosis: Reason for follow-up is left big toe and fifth toe gangrene and cellulitis Patient is a 62-year-old female with a past medical history of pain for diabetes mellitus hypertension hyperlipidemia reflux recent [facility] hospital in the left big toe medial side necrotic wound now presenting back to the hospital with left fifth toe gangrene and cellulitis along with the left big toe medial aspect necrotic wound, the patient is status post angiogram completed on 02/28/2023 with evidence of intermediate to severe disease involving left, iliac artery and intermediate disease involving the left external iliac artery and did have occluded bilateral SFA On today's evaluation that is 03/04/2023 patient remains to be afebrile, patient is breathing comfortably on room air without need for supplemental oxygen, the patient denies chest pain shortness of breath or cough patient denies have any nausea no vomiting no abdominal pain or diarrhea patient pain to the left big and fifth toe is controlled with the current medication Patient did have white count was 6.61 and creatinine 0.6 Objective - Vital Signs Vital signs: Vital Signs Temp 98.0 F 03/04/23 18:40 Pulse 78 03/04/23 18:40 Resp 16 03/04/23 18:40 BP 119/71 03/04/23 18:40 Pulse Ox 95 03/04/23 18:40 FiO2 Intake & Output 03/04/23 03/04/23 03/05/23 06:59 18:59 06:59 Intake Total 590 Balance 590 Intake: Oral 590 Other: # Voids 1 4 # Bowel Movements 3 - Exam GENERAL DESCRIPTION: An middle-aged female lying in bed in no distress RESPIRATORY SYSTEM: Unlabored breathing , decreased breath sounds at bases HEART: S1 S2 regular rate and rhythm , ABDOMEN: Soft , no tenderness EXTREMITIES: Left fifth toe and right big toe are currently dressed minimal drainage on the dressing - Labs CBC & Chem 7: 03/04/23 05:32 03/05/23 07:35 Labs: Abnormal Lab Results - Last 24 Hours (Table) 03/04/23 03/04/23 03/04/23 Range/Units 05:32 05:32 06:02 RBC 3.76 L (4.10-5.20) X 10*6/uL Hgb 10.6 L (12.0-15.0) g/dL Hct 32.7 L (37.2-46.3) % Anion Gap 12.80 H (4.00-12.00) mmol/L BUN <3.5 L (9.0-27.0) mg/dL BUN/Creatinine Ratio <5.83 L (12.00-20.00) Ratio Glucose 208 H (70-110) mg/dL POC Glucose (mg/dL) 220 H (70-110) mg/dL Calcium 8.6 L (8.7-10.3) mg/dL 03/04/23 03/04/23 03/04/23 Range/Units 07:50 12:25 17:34 RBC (4.10-5.20) X 10*6/uL Hgb (12.0-15.0) g/dL Hct (37.2-46.3) % Anion Gap (4.00-12.00) mmol/L BUN (9.0-27.0) mg/dL BUN/Creatinine Ratio (12.00-20.00) Ratio Glucose (70-110) mg/dL POC Glucose (mg/dL) 200 H 219 H 146 H (70-110) mg/dL Calcium (8.7-10.3) mg/dL 03/04/23 Range/Units 20:26 RBC (4.10-5.20) X 10*6/uL Hgb (12.0-15.0) g/dL Hct (37.2-46.3) % Anion Gap (4.00-12.00) mmol/L BUN (9.0-27.0) mg/dL BUN/Creatinine Ratio (12.00-20.00) Ratio Glucose (70-110) mg/dL POC Glucose (mg/dL) 213 H (70-110) mg/dL Calcium (8.7-10.3) mg/dL Assessment and Plan (1) Cellulitis of left foot Status: Acute Code(s): L03.116 - CELLULITIS OF LEFT LOWER LIMB SNOMED Code (s): 32505860340971766 (2) Diabetic ulcer of toe of left foot Status: Acute Code(s): E11.621 - TYPE 2 DIABETES MELLITUS WITH FOOT ULCER; L97.529 - NON-PRESSURE CHRONIC ULCER OTH PRT LEFT FOOT W UNSP SEVERITY SNOMED Code(s): 761036543 Plan: 1patient with left diabetic foot infection in this patient who initially presented with left big toe medial side necrotic changes and cellulitis now presenting with left fifth toe gangrene and cellulitis highly clinically suspicious for ischemia to be the likely etiology 2patient is status post angiogram to the left lower extremity with evidence of severe disease to the left common iliac artery as well as left external iliac artery awaiting further intervention per cardiology 3-patient currently covered with vancomycin and Unasyn while awaiting further vascular surgical intervention Dictation was produced using [email or web address] dictation software. please excuse any grammatical, word or spelling errors. Time with Patient: Less than 30
--- NOTE | 2023-03-12 14:04 | P.PN ---
Subjective Progress Note Date: 03/05/23 Principal diagnosis: Reason for follow-up is left big toe and fifth toe gangrene and cellulitis Patient is a 62-year-old female with a past medical history of pain for diabetes mellitus hypertension hyperlipidemia reflux recent [facility] hospital in the left big toe medial side necrotic wound now presenting back to the hospital with left fifth toe gangrene and cellulitis along with the left big toe medial aspect necrotic wound, the patient is status post angiogram completed on 02/28/2023 with evidence of intermediate to severe disease involving left, iliac artery and intermediate disease involving the left external iliac artery and did have occluded bilateral SFA On today's evaluation that is 03/05/2023 patient denies any fever or any chills, patient is breathing comfortably on 2 L nasal cannula supplemental oxygen, the patient denies chest pain shortness of breath or cough patient denies have any nausea no vomiting no abdominal pain or diarrhea patient pain to the left big and fifth toe has decreased in intensity Patient did have white count was 6.61 as of yesterday and creatinine 0.45 Objective - Vital Signs Vital signs: Vital Signs Temp 98.2 F 03/05/23 08:00 Pulse 56 L 03/05/23 08:00 Resp 16 03/05/23 08:00 BP 120/72 03/05/23 08:00 Pulse Ox 90 L 03/05/23 08:00 FiO2 Intake & Output 03/04/23 03/05/23 03/05/23 18:59 06:59 18:59 Intake Total 590 240 Balance 590 240 Intake: Oral 590 240 Other: Voiding Method Toilet Toilet # Voids 4 1 # Bowel Movements 3 - Exam GENERAL DESCRIPTION: An middle-aged female lying in bed in no distress RESPIRATORY SYSTEM: Unlabored breathing , decreased breath sounds at bases HEART: S1 S2 regular rate and rhythm , ABDOMEN: Soft , no tenderness EXTREMITIES: Left fifth toe and right big toe are currently dressed minimal drainage on the dressing - Labs CBC & Chem 7: 03/04/23 05:32 03/05/23 07:35 Labs: Abnormal Lab Results - Last 24 Hours (Table) 03/04/23 03/04/23 03/05/23 Range/Units 17:34 20:26 06:05 Creatinine (0.52-1.04) mg/dL POC Glucose (mg/dL) 146 H 213 H 219 H (70-110) mg/dL 03/05/23 03/05/23 Range/Units 07:35 12:07 Creatinine 0.45 L (0.52-1.04) mg/dL POC Glucose (mg/dL) 205 H (70-110) mg/dL Assessment and Plan (1) Cellulitis of left foot Status: Acute Code(s): L03.116 - CELLULITIS OF LEFT LOWER LIMB SNOMED Co de(s): 49240581890886920 (2) Diabetic ulcer of toe of left foot Status: Acute Code(s): E11.621 - TYPE 2 DIABETES MELLITUS WITH FOOT ULCER; L97.529 - NON-PRESSURE CHRONIC ULCER OTH PRT LEFT FOOT W UNSP SEVERITY SNOMED Code(s): 134810961 Plan: 1patient with left diabetic foot infection in this patient who initially presented with left big toe medial side necrotic changes and cellulitis now presenting with left fifth toe gangrene and cellulitis highly clinically suspicious for ischemia to be the likely etiology 2patient is status post angiogram to the left lower extremity with evidence of severe disease to the left common iliac artery as well as left external iliac artery, patient will benefit from surgical intervention during this admission for revascularization and to prevent further limb loss and I would recommend continue patient on vancomycin and Unasyn multiple question concern has been answered Dictation was produced using [employer] dictation software. please excuse any grammatical, word or spelling errors. Time with Patient: Less than 30
== END 2023-03-05 16:02 | disposition home health service (06) | DRG 638 ==
LOC: EC 19:21 → 6NMEDSUR 23:24 → OBSVTOIN 02-26 09:08
PROVIDERS: ADMIT Family Medicine; ATTEND Family Medicine
PROC: B41D1ZZ Fluoroscopy of Aorta and Bilateral Lower Extremity Arteries using Low Osmolar Contrast (ICD-10-PCS; principal; 2023-02-28 21:20)
DX: E11.621 Type 2 diabetes mellitus with foot ulcer (principal); E11.52 Type 2 diabetes mellitus with diabetic peripheral angiopathy with gangrene; L03.116 Cellulitis of left lower limb; I69.351 Hemiplegia and hemiparesis following cerebral infarction affecting right dominant side; K90.41 Non-celiac gluten sensitivity; E11.42 Type 2 diabetes mellitus with diabetic polyneuropathy; I25.10 Atherosclerotic heart disease of native coronary artery without angina pectoris; E11.628 Type 2 diabetes mellitus with other skin complications; E11.65 Type 2 diabetes mellitus with hyperglycemia; F17.210 Nicotine dependence, cigarettes, uncomplicated; E78.5 Hyperlipidemia, unspecified; F41.9 Anxiety disorder, unspecified; I10 Essential (primary) hypertension; K21.9 Gastro-esophageal reflux disease without esophagitis; L97.529 Non-pressure chronic ulcer of other part of left foot with unspecified severity; K90.0 Celiac disease; K52.9 Noninfective gastroenteritis and colitis, unspecified; I70.203 Unspecified atherosclerosis of native arteries of extremities, bilateral legs; I25.2 Old myocardial infarction; Z79.02 Long term (current) use of antithrombotics/antiplatelets; Z79.4 Long term (current) use of insulin; I99.8 Other disorder of circulatory system; Z79.82 Long term (current) use of aspirin; Z79.899 Other long term (current) drug therapy; Z82.49 Family history of ischemic heart disease and other diseases of the circulatory system; Z87.11 Personal history of peptic ulcer disease; Z95.5 Presence of coronary angioplasty implant and graft; Z87.19 Personal history of other diseases of the digestive system; Z89.421 Acquired absence of other right toe(s); Z90.49 Acquired absence of other specified parts of digestive tract; Z98.1 Arthrodesis status
CPT/HCPCS: 36200; 36415; 70450; 75625; 75716; 76937; 80048; 80053; 80061; 80202; 82565; 83036; 83605; 83735; 84100; 84132; 85025; 85027; 85610; 85730; 86140; 96374; 96375; 99284

== ENCOUNTER 2023-03-28 08:33 | Day surgery (SDC) | payer MEDICARE ==
[~2023-03-28 08:33] MED LIST changes: -ALPRAZolam 0.25 MG TAB PO PRN; -ALPRAZolam 0.5 MG TAB PO PRN; +HEPARIN SODIUM,PORCINE (1 ML) 2,500 UNIT in SODIUM CHLORIDE 0.9% 250 ML IRRIGATION PRN; -HEPARIN SODIUM,PORCINE 2,500 UNIT in SODIUM CHLORIDE 0.9% 250 ML IRRIGATION PRN; -SODIUM CHLORIDE 0.9% 1,000 ML in EMPTY BAG 1 BAG IV ONE; -ZOLPIDEM 5 MG TAB PO PRN
[2023-03-28] MEDS: SODIUM CHLORIDE 0.9% 1,000 ML IV ONE (09:00)
[2023-03-28 09:02] LABS: Glucose,Whole Blood 382 mg/dL (70-110)
[2023-03-28] MEDS: SODIUM CHLORIDE 0.9% 1,000 ML in EMPTY BAG 1 BAG IV ONE (09:36)
[2023-03-28] MEDS: INSULIN ASPART (NovoLOG) 100 UNIT/ML VIAL SQ ONE (09:37)
[2023-03-28] MEDS ORDERED: niCARdipine 25 MG/10 ML VIAL ONE (11:21)
[2023-03-28] MEDS ORDERED: LIDOCAINE 1% INJ 10MG/ML (20 ML MDV) ONE ×2 (11:21→12:18)
[2023-03-28] MEDS: MIDAZOLAM 2 MG/2 ML VIAL IVP ONE ×2 (11:34→12:20)
[2023-03-28] MEDS: LIDOCAINE 1% INJ 10MG/ML (20 ML MDV) SQ ONE ×2 (11:34→12:20)
[2023-03-28] MEDS ORDERED: HEPARIN SODIUM 1,000 UN/ML (10ML VL) ONE (11:37)
[2023-03-28] MEDS ORDERED: fentaNYL (PF) 50 MCG/ML 2 ML AMP ONE (11:37)
[2023-03-28] MEDS: fentaNYL (PF) 50 MCG/1 ML VIAL IVP ONE (11:41)
[2023-03-28] MEDS: HEPARIN SODIUM 1,000 UN/ML (10ML VL) IV ONE (11:42)
[2023-03-28] MEDS: HYDROmorphone 0.5 MG/0.5 ML SYRINGE IVP ONE ×3 (13:08→13:50)
[2023-03-28] MEDS ORDERED: CLOPIDOGREL 75 MG TAB ONE (14:15)
[2023-03-28] MEDS: CLOPIDOGREL 75 MG TAB PO ONE (14:19)
[2023-03-28] MEDS: IOPAMIDOL-370 100ML BTL INJ ONE (14:20)
--- NOTE | 2023-03-28 15:07 | IR ---
EXAMINATION TYPE: IR stent intravas non coronary DATE OF EXAM: 03/28/2023 COMPARISON: NONE HISTORY: Fluoroscopy time. Fluoroscopy was provided to the referring clinician.
[2023-03-28] MEDS: SODIUM CHLORIDE 0.9% 500 ML 500 ML with niCARdipine 6.25 MG, NITROGLYCERIN-D5W PMX 0.05... IV ONE (16:17)
[2023-03-28] MEDS: ATROPINE SULFATE 0.1 MG/ML 10ML SYRINGE ONE (16:17)
[2023-03-28 16:37] LABS: Glucose,Whole Blood 253 mg/dL (70-110)
[2023-03-28] MEDS: INSULIN ASPART (NovoLOG) 100 UNIT/ML VIAL SQ SCH (17:01)
[2023-03-28] MEDS: HYDROmorphone 0.5 MG/0.5 ML SYRINGE IVP PRN (18:47)
[2023-03-28 20:22] LABS: Glucose,Whole Blood 260 mg/dL (70-110)
[2023-03-28] MEDS: ATORVASTATIN 80 MG TAB PO SCH (20:48)
[2023-03-28] MEDS: cilostazoL 100 MG TAB PO SCH (20:48)
--- NOTE | 2023-03-28 20:52 | P.PCN ---
Date of Procedure: 03/28/23 Operative Findings: PERCUTANEOUS PERIPHERAL INTERVENTION Performing physician Vipul Lock M.D. Procedure performed 1. Successful balloon angioplasty and stenting of the left SFA 2. Adjunctive use of IVUS 3. Left lower extremity angiogram 4. Ultrasound-guided access of the right common femoral artery Indication CLI of the left foot Approach Right common femoral artery Complications None Level of sedation Moderate with a sedation time of 150 minutes Procedure description After obtaining an informed consent the patient was brought to the cardiac lab systems analyst. The right common femoral artery was cannulated using micropuncture technique under ultrasound guidance the micropuncture wire passed easily then a 6-Guyanese 70 cm sheath was placed at the right common femoral artery. She subsequently was flushed and anticoagulation was initiated using heparin with continuous ACT monitoring. Subsequently I did select the left SFA using 035 stiff Glidewire with a backup support of 5-Guyanese rim catheter. Subsequently the sheath was advanced over the wire and the catheter. Left lower extremity angiogram was performed and showed occluded left SFA on long segment with sluggish flow in the anterior tibial artery. Attempting crossing the SEISMIC OBSERVER in antegrade technique was unsuccessful and attempting accessing the pedal arteries was unsuccessful as well but finally was able to access the popliteal artery below the knee using micropuncture technique and then I placed only the micropuncture dilator and the sheath and subsequently advanced an 035 wire then I was able to exchange my all 3 5 wire after the wire [place]outts the lesion all the way to the left common femoral artery with a snare the wire and finish the case from above. I did initially endovascular imaging and that showed that I was in the false lumen and I did balloon angioplasty which showed a dissection distally which was covered using 6.0 x 140 mm stent and proximally and midportion I did balloon angioplasty using a coated balloon with final angiogram showing good angiographic results and the procedure was completed with no complication. The patient tolerated the procedure very well. The long sheath was exchanged the short sheath using all 3 5 wire. Finally selective right common femoral artery angiogram was performed. Also I did endovascular imaging of the left external iliac artery lesion which showed that the lesion was not flow-limiting. The procedure was long and complex Postprocedure management 1. Dual antiplatelet therapy 2. Aggressive cholesterol control 3. Risk factors modification 4. Follow-up with patient
[2023-03-29] MEDS: ALPRAZolam 0.25 MG TAB PO PRN (02:18)
[2023-03-29 06:35] LABS: Glucose,Whole Blood 319 mg/dL (70-110)
[2023-03-29] MEDS: amLODIPine 5 MG TAB PO SCH (09:11)
[2023-03-29] MEDS: CLOPIDOGREL 75 MG TAB PO SCH (09:11)
[2023-03-29] MEDS: ASPIRIN 81 MG PO SCH (09:11)
[2023-03-29 11:53] LABS: Glucose,Whole Blood 357 mg/dL (70-110)
[2023-03-29 16:36] LABS: Glucose,Whole Blood 387 mg/dL (70-110)
[2023-03-29 19:56] LABS: Glucose,Whole Blood 300 mg/dL (70-110)
--- NOTE | 2023-03-29 22:04 | CONS ---
CONSULTATION HISTORY OF PRESENT ILLNESS: This is a 62-year-old female patient known to be . The patient has history of severe peripheral vascular disease. The patient has a dry gangrene of the left foot. The patient had an intervention by Dr. Lock involving the femoral and SFA occlusive disease. The patient is on Plavix. ALLERGIES: No known allergies. PHYSICAL EXAMINATION: GENERAL: The patient was seen in her room. NECK: Supple. No bruit appreciated. CHEST: Clear to auscultation. HEART: First and second sounds present. ABDOMEN: Soft, nontender. EXTREMITIES: The left foot is warm and this is a dry gangrene. PLAN: The patient will be home tomorrow. I will see her in my office on Sunday. The patient's medical history includes history of celiac disease, hypertension, post coronary artery stent in the past and patient also had right foot 4th and 5th in the past. The patient will go home tomorrow. Follow up in the office on Sunday. MMODL / IJN: [id number] /
[2023-03-29] MEDS: MORPHINE SULFATE 2 MG/ML SYRINGE IVP PRN (22:15)
[2023-03-30 06:43] LABS: Glucose,Whole Blood 345 mg/dL (70-110)
[2023-03-30 11:32] LABS: Glucose,Whole Blood 349 mg/dL (70-110)
[2023-03-30 16:38] LABS: Glucose,Whole Blood 439 mg/dL (70-110)
[2023-03-30 20:19] LABS: Glucose,Whole Blood 405 mg/dL (70-110)
--- NOTE | 2023-03-30 21:04 | P.PN ---
Progress Note - Text Progress Note Date: 03/29/23 This is a very pleasant 62-year-old female patient with a past medical history significant for lower extremities peripheral arterial disease with prior angioplasty before as well as diabetes and smoking Recently he was diagnosed with critical limb ischemia of the left foot and she underwent an angiogram which revealed long area of chronic total occlusion of the left SFA. She was admitted to the hospital on March 282023 and she underwent successful recanalizing chronically occluded left SFA from the right groin approach and left popliteal approach with extremely complex procedure. I did perform successful stenting of the left SFA and also balloon angioplasty of the left SFA She was seen on March 29. She was experiencing left lower extremity discomfort which has a slightly improved. We were able to obtain a Doppler signal in the left foot. He requested to stay in the hospital for 1 more day. Hemodynamically she was stable. Beside that no pain in the chest and no shortness of breath. She is on dual antiplatelet therapy along with a statin and we will continue that. The right groin appeared to be soft and nontender with no bruises I am going to monitor the patient for additional 24 hours. I would follow-up with the patient tomorrow
--- NOTE | 2023-03-30 21:05 | P.PN ---
Progress Note - Text Progress Note Date: 03/30/23 This is a very pleasant 62-year-old female patient with a past medical history significant for lower extremities peripheral arterial disease with prior angioplasty before as well as diabetes and smoking Recently he was diagnosed with critical limb ischemia of the left foot and she underwent an angiogram which revealed long area of chronic total occlusion of the left SFA. She was admitted to the hospital on March 282023 and she underwent successful recanalizing chronically occluded left SFA from the right groin approach and left popliteal approach with extremely complex procedure. I did perform successful stenting of the left SFA and also balloon angioplasty of the left SFA She was seen today March 302023 She stated that the pain in the left leg has improved significantly and she is able to ambulate better compared to yesterday. Beside that no pain in the chest and no shortness of breath. She remains stable hemodynamically. She continues to be on dual antiplatelet therapy along with a statin. He requested to stay an additional day. Am going to monitor the patient for additional 24 hours and follow-up with the patient in the morning for possible discharge
[2023-03-30] MEDS: INSULIN ASPART (NovoLOG) 100 UNIT/ML VIAL SQ ONE (21:32)
[2023-03-30] MEDS: INSULIN DETEMIR (LEVEMIR) 100 UNIT/ML SYR SQ SCH (21:32)
[2023-03-31] MEDS ORDERED: INSULIN DETEMIR (LEVEMIR) 100 UNIT/ML SYR SQ SCH (07:00)
[2023-03-31 07:24] LABS: Glucose,Whole Blood 312 mg/dL (70-110)
[2023-03-31] MEDS: INSULIN ASPART (NovoLOG) 100 UNIT/ML VIAL SQ SCH (07:31)
[2023-03-31 11:56] LABS: Glucose,Whole Blood 329 mg/dL (70-110)
[2023-03-31 13:16] LABS: Basophils % (A) 1 %; Eosinophils # (A) 0.3 k/uL (0-0.7); Eosinophils % (A) 4 %; HCT 37.3 % (34.0-46.0); HGB 12.8 gm/dL (11.4-16.0); Lymphocytes # (A) 1.5 k/uL (1.0-4.8); Lymphocytes % (A) 19 %; MCH 28.9 pg (25.0-35.0); MCHC 34.3 g/dL (31.0-37.0); MCV 84.3 fL (80.0-100.0); Mean Platelet Volume 7.7; Monocytes # (A) 0.4 k/uL (0-1.0); Monocytes % (A) 5 %; Neutrophils # (A) 5.6 k/uL (1.3-7.7); Neutrophils % (A) 70 %; Platelet Count 197 k/uL (150-450); Poikilocytosis Slight; RBC 4.43 m/uL (3.80-5.40); RDW 13.8 % (11.5-15.5)
[2023-03-31] MEDS: INSULIN DETEMIR (LEVEMIR) 100 UNIT/ML SYR SQ SCH (13:23)
[2023-03-31 13:28] LABS: ALT 9 U/L (4-34); AST 15 U/L (14-36); African American GFR (CKD) >90 (>60 ml/min/1.73 sqM); Albumin 3.3 g/dL (3.5-5.0); Alkaline Phosphatase 78 U/L (38-126); Anion Gap 9 mmol/L; Blood Urea Nitrogen 7 mg/dL (7-17); Calcium 8.6 mg/dL (8.4-10.2); Carbon Dioxide 25 mmol/L (22-30); Chloride 97 mmol/L (98-107); Glucose 296 mg/dL (74-99); Non-African American GFR(CKD) >90 (>60 ml/min/1.73 sqM); Potassium 3.7 mmol/L (3.5-5.1); Sodium 131 mmol/L (137-145); Total Bilirubin 0.8 mg/dL (0.2-1.3); Total Protein 5.9 g/dL (6.3-8.2)
[2023-03-31 16:45] LABS: Glucose,Whole Blood 318 mg/dL (70-110)
--- NOTE | 2023-03-31 19:28 | CONS ---
CONSULTATION I am covering for Dr. Damon. REASON FOR CONSULTATION: Advice regarding diabetes mellitus and other medical issues, requested by Cardiology. HISTORY OF PRESENT ILLNESS: This is a 62-year-old woman with a past medical history of multiple medical problems including CVA, TIA, diabetes mellitus type 2, underwent balloon angioplasty, stenting of the left SFA by Dr. Lock. The sugars were elevated. Currently reaching up to 439, 405. There is no history of any fever, rigors, or chills. No headache or loss of consciousness or seizures at this time. The patient had an endocrine consult pending as an outpatient at this time according to her. PAST MEDICAL HISTORY: Reviewed include diabetes mellitus type 2, GERD, hyperlipidemia, hypertension. Rest of the history noted. MEDICATIONS: Prior to admission, Pletal and rest of medications reviewed. ALLERGIES: Gluten. FAMILY HISTORY: History of liver disease, idiopathic cirrhosis, liver cancer. SOCIAL HISTORY: Smoking. REVIEW OF SYSTEMS: A 14-point review is negative except as mentioned earlier. PHYSICAL EXAMINATION: VITAL SIGNS: Pulse is 95, blood pressure 110/70, respirations 18. HEENT: Conjunctivae normal. NECK: No JVD. CARDIOVASCULAR: S1, S2. RESPIRATIONS: Breath sounds diminished at the bases. ABDOMEN: Soft, nontender. LEGS: Status post surgery. NERVOUS SYSTEM: Nonfocal. SKIN: No ulcer, rash, bleeding. LABORATORY DATA: Noted. Accu-Cheks noted. Sodium 131. ASSESSMENT: 1. Status post balloon angioplasty and stenting of the left SFA. 2. Diabetes mellitus, type 2, uncontrolled with hyperglycemia with no evidence of ketosis. 3. History of cerebrovascular accident, transient ischemic attack. 4. Gastroesophageal reflux disease. 5. Hypertension. 6. Hyperlipidemia. 7. History of toe amputation. 8. History of pancreatitis. 9. History of coronary artery disease stent. RECOMMENDATIONS AND DISCUSSION: This is a 62-year-old woman, who presented with multiple complex medical issues, we will monitor the patient closely. I would recommend initiate Lantus 20 subcu b.i.d. and insulin scale also. We will continue to monitor. Diabetic education. Outpatient followup with Endocrine. Resume the rest of the home medications. We will follow the patient closely with you. See orders for further details. Recommend close followup with Dr. Damon after discharge. MMODL / IJN: [id number] /
[2023-03-31 20:04] LABS: Glucose,Whole Blood 283 mg/dL (70-110)
[2023-03-31] MEDS: APIXABAN 2.5 MG TABLET PO SCH (20:24)
[2023-04-01 07:10] LABS: Glucose,Whole Blood 326 mg/dL (70-110)
[2023-04-01 07:45] LABS: Basophils % (A) 1 %; Eosinophils # (A) 0.2 k/uL (0-0.7); Eosinophils % (A) 4 %; HCT 34.9 % (34.0-46.0); HGB 11.9 gm/dL (11.4-16.0); Lymphocytes # (A) 1.1 k/uL (1.0-4.8); Lymphocytes % (A) 16 %; MCH 28.3 pg (25.0-35.0); MCHC 34.1 g/dL (31.0-37.0); MCV 82.9 fL (80.0-100.0); Mean Platelet Volume 8.4; Monocytes # (A) 0.4 k/uL (0-1.0); Monocytes % (A) 5 %; Neutrophils % (A) 74 %; Platelet Count 197 k/uL (150-450); Poikilocytosis Slight; RBC 4.21 m/uL (3.80-5.40); RDW 13.7 % (11.5-15.5); WBC 6.8 k/uL (3.8-10.6)
[2023-04-01 08:03] LABS: African American GFR (CKD) >90 (>60 ml/min/1.73 sqM); Anion Gap 8 mmol/L; Blood Urea Nitrogen 6 mg/dL (7-17); Calcium 8.1 mg/dL (8.4-10.2); Carbon Dioxide 25 mmol/L (22-30); Chloride 97 mmol/L (98-107); Glucose 305 mg/dL (74-99); Non-African American GFR(CKD) >90 (>60 ml/min/1.73 sqM); Potassium 3.4 mmol/L (3.5-5.1); Sodium 130 mmol/L (137-145)
[2023-04-01] MEDS ORDERED: Potassium Replacement Protocol 1 EACH MISC MISCELLANE PRN (11:45)
[2023-04-01] MEDS ORDERED: Magnesium Replacement Protocol 1 EACH MISC MISCELLANE PRN (11:45)
[2023-04-01 11:51] LABS: Glucose,Whole Blood 350 mg/dL (70-110)
[2023-04-01] MEDS: HYDROcodone/APAP 10-325MG 1 EACH TAB PO PRN (12:34)
[2023-04-01] MEDS: POTASSIUM CHLORIDE ER 20 MEQ TAB.ER PO STA (12:34)
[2023-04-01] MEDS: INSULIN DETEMIR (LEVEMIR) 100 UNIT/ML SYR SQ ONE (13:06)
[2023-04-01 16:38] LABS: Glucose,Whole Blood 280 mg/dL (70-110)
--- NOTE | 2023-04-01 19:27 | P.PN ---
Progress Note - Text Progress Note Date: 04/01/23 This is a very pleasant 62-year-old female patient with a past medical history significant for lower extremities peripheral arterial disease with prior angioplasty before as well as diabetes and smoking Recently he was diagnosed with critical limb ischemia of the left foot and she underwent an angiogram which revealed long area of chronic total occlusion of the left SFA. March [id number] She was seen and evaluated this morning. The left lower extremity discomfort appeared to be improved somewhat and she is able to ambulate with any difficulties. Unfortunately the situation at home is not good with her has been and her son are both sick with the flu and unable to help her. And she would like to stay 1 more day. Both sites appeared to be good. Hemodynamically she is stable and she is asymptomatic beside the left lower extremity discomfort which has been improving. We were able to obtain a soft palpable pulse in the left dorsalis pedis artery. I am going to continue the current medical regimen and and oral anticoagulation to the current medical
--- NOTE | 2023-04-01 19:28 | P.PN ---
Progress Note - Text Progress Note Date: 04/01/23 This is a very pleasant 62-year-old female patient with a past medical history significant for lower extremities peripheral arterial disease with prior angioplasty before as well as diabetes and smoking Recently he was diagnosed with critical limb ischemia of the left foot and she underwent an angiogram which revealed long area of chronic total occlusion of the left SFA. April [id number] She is feeling definitely better. The left lower extremity discomfort has improved and she is also able to ambulate. She is tolerating the triple therapy very well. With that from has been marginally low and it will be replaced. She would like to stay 1 more day because of the situation at home. I am going to continue the current medical regimen and follow-up with the patient
[2023-04-01 20:47] LABS: Glucose,Whole Blood 297 mg/dL (70-110)
[2023-04-01] MEDS: INSULIN DETEMIR (LEVEMIR) 100 UNIT/ML SYR SQ SCH (20:47)
--- NOTE | 2023-04-02 00:46 | PN ---
PROGRESS NOTE DATE OF SERVICE: 04/01/2023 I am covering for Dr. Damon. SUBJECTIVE: This 62-year-old woman was admitted after a vascular procedure for uncontrolled blood sugars. Hemoglobin A1c is pending. No chest pain, no palpitations. She was started on long-acting insulin. PHYSICAL EXAMINATION: VITAL SIGNS: Pulse 98, blood pressure 109/87, respirations 18. CHEST: Clear. CARDIOVASCULAR: S1, S2. ABDOMEN: Soft. NERVOUS SYSTEM: No focal deficits. LABORATORY DATA: Potassium 3.4. ASSESSMENT: 1. Status post balloon angioplasty and stenting of the left superficial femoral artery. 2. Diabetes mellitus, type 2, uncontrolled with hyperglycemia, with no evidence of ketosis. 3. History of cerebrovascular accident/transient ischemic attack. 4. Gastroesophageal reflux disease. 5. Hypertension. 6. Hyperlipidemia. 7. Multiple medical issues. RECOMMENDATIONS: Increase the Levemir to 30 units subcu b.i.d. Monitor blood sugars closely. Hemoglobin A1c. Dr. Damon will follow tomorrow. MMODL / IJN: [id number] /
[2023-04-02 07:02] LABS: Glucose,Whole Blood 229 mg/dL (70-110)
[2023-04-02 07:03] LABS: Basophils % (A) 1 %; Eosinophils # (A) 0.3 k/uL (0-0.7); Eosinophils % (A) 5 %; HCT 36.9 % (34.0-46.0); HGB 12.6 gm/dL (11.4-16.0); Lymphocytes # (A) 1.6 k/uL (1.0-4.8); Lymphocytes % (A) 25 %; MCH 28.3 pg (25.0-35.0); MCV 83.3 fL (80.0-100.0); Mean Platelet Volume 7.8; Monocytes # (A) 0.6 k/uL (0-1.0); Monocytes % (A) 10 %; Neutrophils # (A) 3.8 k/uL (1.3-7.7); Neutrophils % (A) 58 %; Platelet Count 226 k/uL (150-450); Poikilocytosis Slight; RBC 4.44 m/uL (3.80-5.40); RDW 13.7 % (11.5-15.5); WBC 6.5 k/uL (3.8-10.6)
[2023-04-02 07:29] LABS: African American GFR (CKD) >90 (>60 ml/min/1.73 sqM); Anion Gap 7 mmol/L; Blood Urea Nitrogen 7 mg/dL (7-17); Calcium 8.8 mg/dL (8.4-10.2); Carbon Dioxide 27 mmol/L (22-30); Chloride 102 mmol/L (98-107); Glucose 182 mg/dL (74-99); Magnesium 1.8 mg/dL (1.6-2.3); Non-African American GFR(CKD) >90 (>60 ml/min/1.73 sqM); Potassium 3.6 mmol/L (3.5-5.1); Sodium 136 mmol/L (137-145)
[2023-04-02 11:56] LABS: Glucose,Whole Blood 253 mg/dL (70-110)
[2023-04-02 12:34] VITALS: BMI 21.9
--- NOTE | 2023-04-02 13:16 | P.PN ---
Subjective Progress Note Date: 04/02/23 This is a 62-year-old female who was recently admitted under cardiology services Dr. Lock and recently underwent balloon angioplasty and stenting of the left superficial femoral artery. Patient is also being followed by Dr. Padilla vascular surgery scheduled to undergo amputation on the left lower extremity this Sunday. Patient was having some uncontrolled elevated blood sugars requiring insulin adjustments. Patient is continued on sliding scale along with Premeal insulin and long-acting and blood sugars are better controlled. Patient being referred to an endocrine in the outpatient setting for tight glycemic control and diabetes education. Patient was continued on 70/30 insulins twice daily and hemoglobin A1c is noted to be 9.3. Recommend patient to continue with Accu-Cheks before meals and at bedtime and keeping a diary of all readings for follow-up and will place the patient on long-acting for discharge. Patient is afebrile with no reports of chest pain or shortness of breath. Patient reports she has an appt scheduled with Dr. Padilla this Sunday for amputation of the toes on the left. Patient also reports her son and at home are sick with the flu currently. Review of systems: Constitutional: No reports of fatigue, fever, or chills Cardiovascular: No reports of chest pain or palpitations Respiratory: No reports of shortness of breath or cough GI: No reports of nausea, no reports of vomiting, no diarrhea : No reports of dysuria or retention Neurovascular: reports of generalized weakness, reports left foot pain although slightly improved All medications have been reviewed PHYSICAL EXAMINATION: GENERAL: The patient is alert and oriented x4, Well developed, well nourished. Thin built, appears older than stated age HEENT: Pupils are round and equally reacting to light. EOMI. no scleral icterus. No conjunctival pallor. Normocephalic, atraumatic. No pharyngeal erythema. No thyromegaly. CARDIOVASCULAR: S1 and S2 muffled PULMONARY: diminished breath sounds bilaterally with no wheezing or rhonchi noted. ABDOMEN: soft. Nontender on exam. non-distended, normoactive bowel sounds. No palpable organomegaly. MUSCULOSKELETAL: No joint swelling or deformity. EXTREMITIES: No cyanosis, clubbing, or pedal edema. Left lower extremity with d ressings that are dry and intact currently NEUROLOGICAL: Gross neurological examination did not reveal any focal deficits. Diffuse weakness SKIN: No rashes. Assessment: Status post balloon angioplasty and stenting of the left superficial femoral artery Diabetes mellitus, type II, uncontrolled with hyperglycemia, insulin-dependent, hemoglobin A1c is 9.3, no evidence of ketosis History of CVA/TIA Gastroesophageal reflux disease Hypertension Hyperlipidemia Peripheral artery disease history History of chronic low back pain Continued ongoing nicotine dependence GI prophylaxis DVT prophylaxis Full code Plan: Recommend to continue with current medications and management per cardiology services. Patient also being followed by vascular surgery and is scheduled to undergo amputation of some of the toes on the left on Sunday Home medications reviewed and resumed as appropriate Patient to continue with Accu-Cheks before meals and at bedtime and keep a diary of all readings for primary and endocrine follow-up. Patient also maintained on 7030 insulin's and adding long-acting twice daily and encouraged to follow-up with endocrine in the outpatient setting. Patient also instructed to hold insulin if blood sugar is 100 or less Patient has a follow-up appointment with [facility] in his office on 04/04/2023 at 10:30 AM Patient instructed to keep this appointment Continue with avoiding tobacco use and exposure Patient is medically stable for discharge with close outpatient follow-up Thank you kindly for this consultation The impression and plan of care has been dictated by Consuelo Combs, nurse practitioner as directed. Dr. Migel MD I have performed a history and examination and MDM of this patient, discussed the same with the dictator, and agree with the dictator's assessment and plan as written ,documented as a scribe. Based on total visit time, I have performed more than 50% of the visit. Any additional findings or plans will be noted. Objective - Vital Signs Vital signs: Vital Signs Temp 98.5 F 04/02/23 08:00 Pulse 86 04/02/23 08:00 Resp 16 04/02/23 08:00 BP 104/69 04/02/23 08:00 Pulse Ox 94 L 04/02/23 08:00 FiO2 Intake & Output 04/01/23 04/02/23 04/02/23 18:59 06:59 18:59 Intake Total 360 240 Output Total 425 Balance -65 240 Weight 65.5 kg Intake: Oral 360 240 Output: Gastric Drainage 0 Urine 425 Stool 0 Urine/Stool Mix 0 Emesis 0 Oral Regurgitation 0 Other 0 Other: Voiding Method Bedside Commode Bedside Commode # Voids 3 2 1 # Bowel Movements 0 - Labs CBC & Chem 7: 04/02/23 06:14 04/02/23 06:14 Labs: Abnormal Lab Results - Last 24 Hours (Table) 04/01/23 04/01/23 04/01/23 Range/Units 07:31 16:36 20:34 Sodium (137-145) mmol/L Creatinine (0.52-1.04) mg/dL Glucose (74-99) mg/dL POC Glucose (mg/dL) 280 H 297 H (70-110) mg/dL Hemoglobin A1c 9.3 H (<=6.0) % 04/02/23 04/02/23 04/02/23 Range/Units 06:14 07:00 11:54 Sodium 136 L (137-145) mmol/L Creatinine 0.40 L (0.52-1.04) mg/dL Glucose 182 H (74-99) mg/dL POC Glucose (mg/dL) 229 H 253 H (70-110) mg/dL Hemoglobin A1c (<=6.0) %
[2023-04-02 16:47] LABS: Glucose,Whole Blood 199 mg/dL (70-110)
[2023-04-02 20:39] LABS: Glucose,Whole Blood 216 mg/dL (70-110)
[2023-04-02] MEDS: INSULIN DETEMIR (LEVEMIR) 100 UNIT/ML SYR SQ SCH (20:54)
[2023-04-03 06:01] LABS: Glucose,Whole Blood 140 mg/dL (70-110)
[2023-04-03 11:59] LABS: Glucose,Whole Blood 162 mg/dL (70-110)
--- NOTE | 2023-04-03 15:38 | P.PN ---
Subjective Progress Note Date: 04/03/23 This is a 62-year-old female with past medical history significant for PAD, diabetes, nicotine dependence, admitted with left foot critical limb ischemia, status post left lower extremity angiogram, successful balloon angioplasty and stenting of the left superficial femoral artery. As per staff and prior h ospitalist group covering this patient, reports patient was scheduled for discharge, and returning tomorrow/Sunday for amputation. Rather than discharge patient home today where reported family members are sick with influenza, plan is to possibly proceed with amputation this admission ,if vascul ar surgeon Dr. Padilla is in agreement with. Patient is currently on Eliquis ,Plavix and aspirin. Blood sugars are better controlled. Reports mild pain in the left lower extremity. Denies chest pain, palpitations or shortness of breath. Maintaining O2 sats in the 90s on room air. Afebrile. Objective - Vital Signs Vital signs: Vital Signs Temp 98.8 F 04/03/23 07:55 Pulse 81 04/03/23 07:55 Resp 16 04/03/23 07:55 BP 106/67 04/03/23 07:55 Pulse Ox 94 L 04/03/23 07:55 FiO2 Intake & Output 04/02/23 04/03/23 04/03/23 18:59 06:59 18:59 Intake Total 840 240 Output Total 0 Balance 840 240 Weight 65.5 kg Intake: Oral 840 240 Output: Stool 0 Other: Voiding Method Bedside Commode # Voids 3 1 - Exam GENERAL:Alert and oriented x3, sitting up in bed,NAD. HEENT: Normocephalic, atraumatic ,PEARRL,no scleral icterus., No conjunctival pallor. CARDIOVASCULAR: Regular S1 and S2 PULMONARY: Unlabored, equal air entry, bilateral bases diminished. ABDOMEN: soft, non-distended, nontender, no guarding, positive bowel sounds. EXTREMITIES: Left lower extremity warm with fourth and fifth digits necrotic, blackened NEUROLOGICAL: Gross neurological examination did not reveal any focal deficits. SKIN: No rashes. - Labs CBC & Chem 7: 04/02/23 06:14 04/02/23 06:14 Labs: Abnormal Lab Results - Last 24 Hours (Table) 04/02/23 04/02/23 04/02/23 Range/Units 11:54 16:46 20:37 POC Glucose (mg/dL) 253 H 199 H 216 H (70-110) mg/dL 04/03/23 Range/Units 06:00 POC Glucose (mg/dL) 140 H (70-110) mg/dL Assessment and Plan Assessment: Left foot critical limb ischemia , dry gangrene of left foot ,status post balloon angioplasty and stenting of the left superficial femoral artery. Diabetes mellitus, type II, uncontrolled with hyperglycemia, insulin-dependent, hemoglobin A1c is 9.3, improving History of CVA/TIA Gastroesophageal reflux disease Hypertension Hyperlipidemia Peripheral artery disease, severe Chronic low back pain Ongoing nicotine dependence Plan: Continue on current medication regimen, monitoring and symptomatic treatment. Potential amputation this admission pending further discussion between vascular surgeon Dr. Padilla, home performance laborer Dr. Cruz and primary care physician Dr. Jeff Damon; they will also need to address Eliquis, Plavix and aspirin that patient is currently on. PPI added for GI prophylaxis .tight control blood sugars with close monitoring of [id number] was recently adjusted last night, reevaluate in a.m. further recommendations to follow. The impression and plan of care has been dictated as directed. : I performed a history and examination of this patient, discussed the same with the dictator. I agree with the dictator's note ,documented as a scribe. Any additional findings or plans will be noted.
[2023-04-03 16:35] LABS: Glucose,Whole Blood 178 mg/dL (70-110)
[2023-04-03] MEDS: PANTOPRAZOLE 40 MG/10 ML VIAL IVP SCH (17:10)
[2023-04-03 20:18] LABS: Glucose,Whole Blood 105 mg/dL (70-110)
--- NOTE | 2023-04-03 20:25 | P.PN ---
Progress Note - Text Progress Note Date: 04/02/23 The patient is a pleasant 62-year-old female patient who was diagnosed recently with critical limb ischemia of the left foot and she underwent subsequently an angiogram and that revealed occluded left SFA. She was admitted to the hospital last Sunday and underwent successful LEAD DESIGNER of the left SFA with a good angiographic results with a long and extensive procedure and the procedure was performed in antegrade and retrograde approach and from a right common femoral approach and left popliteal approach April [id number] She was seen and evaluated. The plan initially is to discharge the patient home. Subsequently the patient was quite emotional about going home because both of her and her son are sick with the flu symptoms and she would like to stay for additional night. Beside that she remains hemodynamically stable and she remains asymptomatic. Left foot continues to be warm with very weak palpable pulse. Both sides including the right common femoral artery and left popliteal size are soft and nontender with no bruises. Examination overall is unremarkable beside the critical limb ischemia involving the left foot. From a cardiovascular standpoint of view, I am going to continue the current medical regimen including triple therapy. Continue following up with the patient and canceled the discharge
--- NOTE | 2023-04-03 20:27 | P.PN ---
Progress Note - Text Progress Note Date: 04/03/23 The patient is a pleasant 62-year-old female patient who was diagnosed recently with critical limb ischemia of the left foot and she underwent subsequently an angiogram and that revealed occluded left SFA. She was admitted to the hospital last Sunday and underwent successful FOUNDRY HELPER of the left SFA with a good angiographic results with a long and extensive procedure and the procedure was performed in antegrade and retrograde approach and from a right common femoral approach and left popliteal approach March [id number] The patient was seen and evaluated today. She is symptomatic with no pain in the chest and no shortness of breath. He continues to struggle with critical limb ischemia of the left foot and the plan is to contact Dr. Padilla to see if he can perform the amputation while she is in the hospital by the next 24-48 hours. Beside that her pressure has been marginal. Am going to decrease the dose of amlodipine. She is on triple therapy in addition to cilostazol and am going to stop the cilostazol at this point just to reduce the risk of any bleeding. Beside that I am going to transfer the service to the internal medicine team giving that the patient has been stable from a cardiovascular standpoint of view and no need for any further cardiac intervention or vascular intervention at this point. Meanwhile continue the current medical regimen with adjustment in the medication with just decided to do and follow-up with the patient on when necessary case. The examination is remarkable for regular rhythm with diminished breathing sounds bilaterally and he continues to have evidence of critical limb ischemia of the left foot
[2023-04-03] MEDS: ZOLPIDEM 5 MG TAB PO PRN (23:05)
[2023-04-04 07:25] LABS: Glucose,Whole Blood 250 mg/dL (70-110)
[2023-04-04] MEDS: amLODIPine 2.5 MG TAB PO SCH (09:30)
[2023-04-04 09:40] LABS: African American GFR (CKD) >90 (>60 ml/min/1.73 sqM); Anion Gap 7 mmol/L; Blood Urea Nitrogen 7 mg/dL (7-17); Calcium 8.4 mg/dL (8.4-10.2); Carbon Dioxide 28 mmol/L (22-30); Chloride 99 mmol/L (98-107); Glucose 245 mg/dL (74-99); Non-African American GFR(CKD) >90 (>60 ml/min/1.73 sqM); Potassium 3.7 mmol/L (3.5-5.1); Sodium 134 mmol/L (137-145)
[2023-04-04 12:00] LABS: Glucose,Whole Blood 212 mg/dL (70-110)
--- NOTE | 2023-04-04 14:58 | P.PN ---
Subjective Progress Note Date: 04/04/23 This is a 62-year-old female with past medical history significant for PAD, diabetes, nicotine dependence, admitted with left foot critical limb ischemia, status post left lower extremity angiogram, successful balloon angioplasty and stenting of the left superficial femoral artery. As per staff and prior h ospitalist group covering this patient, reports patient was scheduled for discharge, and returning tomorrow/Sunday for amputation. Rather than discharge patient home today where reported family members are sick with influenza, plan is to possibly proceed with amputation this admission ,if vascul ar surgeon Dr. Padilla is in agreement with. Patient is currently on Eliquis ,Plavix and aspirin. Blood sugars are better controlled. Reports mild pain in the left lower extremity. Denies chest pain, palpitations or shortness of breath. Maintaining O2 sats in the 90s on room air. Afebrile. 04/04/2023 slept well, feeling better ,reports fluctuating surges of burning sharp pain in her left lower extremity. Denies chills or sweats. Afebrile. Renal function stable. Denies chest pain, palpitations or shortness of breath. Vascular surgeon, Dr. Padilla notified and informed RN that he is coming in to further discuss amputation with patient. Blood sugars elevated this morning - staff did not administer Levemir insulin last night. Objective - Vital Signs Vital signs: Vital Signs Temp 98.0 F 04/04/23 04:00 Pulse 81 04/04/23 04:00 Resp 16 04/04/23 04:00 BP 103/58 04/04/23 04:00 Pulse Ox 93 L 04/04/23 04:00 FiO2 Intake & Output 04/03/23 04/04/23 04/04/23 18:59 06:59 18:59 Intake Total 400 10 240 Output Total 0 Balance 400 10 240 Intake: IV 10 Invasive Line 1 10 Oral 400 240 Output: Stool 0 Other: Voiding Method Bedside Commode Toilet # Voids 1 - Exam GENERAL:Alert and oriented x3, sitting up in bed,NAD. HEENT: Normocephalic, atraumatic ,PEARRL,no scleral icterus,no conjunctival pal myranda. CARDIOVASCULAR: Regular S1 and S2. PULMONARY: Unlabored, equal air entry, bilateral bases diminished. ABDOMEN: soft, non-distended, nontender, no guarding, positive bowel sounds. EXTREMITIES: Left lower extremity warm with fourth and fifth digits blackened NEUROLOGICAL: Gross neurological examination did not reveal any focal deficits. SKIN: No rashes. - Labs CBC & Chem 7: 04/02/23 06:14 04/04/23 08:09 Labs: Abnormal Lab Results - Last 24 Hours (Table) 04/03/23 04/04/23 04/04/23 Range/Units 16:32 07:23 08:09 Sodium 134 L (137-145) mmol/L Creatinine 0.45 L (0.52-1.04) mg/dL Glucose 245 H (74-99) mg/dL POC Glucose (mg/dL) 178 H 250 H (70-110) mg/dL 04/04/23 Range/Units 11:58 Sodium (137-145) mmol/L Creatinine (0.52-1.04) mg/dL Glucose (74-99) mg/dL POC Glucose (mg/dL) 212 H (70-110) mg/dL Assessment and Plan Assessment: Left foot critical limb ischemia , dry gangrene of left foot ,status post balloo n angioplasty and stenting of the left superficial femoral artery. Diabetes mellitus, type II, uncontrolled with hyperglycemia, insulin-dependent, hemoglobin A1c is 9.3, improving History of CVA/TIA Gastroesophageal reflux disease Hypertension Hyperlipidemia Peripheral artery disease, severe Chronic low back pain Ongoing nicotine dependence Plan: Continue on current medication regimen, monitoring and symptomatic treatment. Further input from vascular surgery pending- potential amputation this admission pending further discussion between vascular surgeon Dr. Padilla, national coverage specialist Dr. Cruz and primary care physician Dr. Jeff Damon; they will also need to address Eliquis, Plavix and aspirin that patient is currently on. tight control blood sugars with close monitoring of Accu-Cheks. Levemir insulin further adjusted. If vascular surgeon chooses to not proceed with amputation t his visit, patient will be discharged home. The impression and plan of care has been dictated as directed. : I performed a history and examination of this patient, discussed the same with the dictator. I agree with the dictator's note ,documented as a scribe. Any additional findings or plans will be noted.
[2023-04-04 16:20] VITALS: BP 85/62; PULSE 63; RESP 17; TEMP 98.3
[2023-04-04 16:48] LABS: Glucose,Whole Blood 132 mg/dL (70-110)
[2023-04-04] MEDS ORDERED: INSULIN DETEMIR (LEVEMIR) 100 UNIT/ML SYR SQ SCH (21:00)
[2023-04-05] MEDS ORDERED: INSULIN DETEMIR (LEVEMIR) 100 UNIT/ML SYR SQ ONE (09:21)
--- NOTE | 2023-04-06 10:09 | P.DS ---
Providers Expected date of discharge: 04/04/23 Attending physician: Jeff Damon MD Consults: 03/29/23 09:16 Consult Physician Routine Consulting Provider: Jose David Padilla Consult Reason/Comments: dry gangrene left foot Do you want consulting provider notified?: Yes 03/30/23 20:31 Consult Physician Routine Consulting Provider: Jeff Damon Consult Reason/Comments: medical management Do you want consulting provider notified?: Yes Primary care physician: Geno Avilez Hospital Course: Final Diagnoses: Left foot critical limb ischemia , dry gangrene of left foot ,status post balloon angioplasty and stenting of the left superficial femoral artery. Diabetes mellitus, type II, uncontrolled with hyperglycemia, insulin-dependent, hemoglobin A1c is 9.3, improving History of CVA/TIA Gastroesophageal reflux disease Hypertension Hyperlipidemia Peripheral artery disease, severe Chronic low back pain Ongoing nicotine dependence Hospital course:This is a 62-year-old female with past medical history significant for PAD, diabetes, nicotine dependence, admitted with left foot critical limb ischemia, status post left lower extremity angiogram, successful balloon angioplasty and stenting of the left superficial femoral artery. As per staff and prior hospitalist group covering this patient, reports patient was scheduled for discharge, and returning tomorrow/Sunday for amputation. Rathe r than discharge patient home today where reported family members are sick with influenza, plan is to possibly proceed with amputation this admission ,if vascular surgeon Dr. Padilla is in agreement with. Patient is currently on Eliquis ,Plavix and aspirin. Blood sugars are better controlled. Reports mild pain in the left lower extremity. Denies chest pain, palpitations or shortness of breath. Maintaining O2 sats in the 90s on room air. Afebrile. 04/04/2023 slept well, feeling better ,reports fluctuating surges of burning sharp pain in her left lower extremity. Denies chills or sweats. Afebrile. Renal function stable. Denies chest pain, palpitations or shortness of breath. Vascular surgeon, Dr. Padilla notified and informed RN that he is coming in to further discuss amputation with patient. Blood sugars elevated this morning - staff did not administer Levemir insulin last night. Further input from vascular surgery pending- potential amputation this admission pending further discussion between vascular surgeon Dr. Padilla, proctologist Dr. Cruz and primary care physician Dr. Jeff Damon; they will also need to address Eliquis, Plavix and aspirin that patient is currently on. tight control blood sugars with close monitoring of Accu-Cheks. Levemir insulin further adjusted. If vascular surgeon chooses to not proceed with amputation this visit, patient will be discharged home. Vascular surgeon Dr. Padilla at bedside and discussed plan with patient. Patient to be discharged home today and follow-up in his office this Sunday for repeat Doppler. Blood pressures better controlled this afternoon currently 132. Patient will be discharged home today in a stable condition with guarded prognosis. The impression and plan of care has been dictated as directed. .: I performed a history and examination of this patient, discussed the same with the dictator. I agree with the dictator's note ,documented as a scribe. Any additional findings or plans will be noted. Patient Condition at Discharge: Stable Plan - Discharge Summary Discharge Rx Participant: No New Discharge Prescriptions: New Insulin Detemir (Levemir) [Levemir] 35 unit SQ BID 30 Days #5 each Cephalexin [Keflex] 500 mg PO Q12HR 7 Days #14 cap Apixaban [Eliquis] 2.5 mg PO BID #180 tab Continue Atorvastatin [Lipitor] 80 mg PO HS Aspirin 81 mg PO DAILY Insulin NPH Hum/Reg Insulin Hm [NovoLIN 70-30 100 Unit/ml Vial] See Protocol SQ ACHS amLODIPine [Norvasc] 5 mg PO DAILY #30 tab cilostazoL [Pletal] 50 mg PO BID #60 tab Doxycycline Hyclate 100 mg PO BID 10 Days #20 tab Clopidogrel [Plavix] 75 mg PO DAILY 30 Days #30 tab Discharge Medication List Atorvastatin [Lipitor] 80 mg PO HS 06/26/16 [History] Aspirin 81 mg PO DAILY 10/08/17 [History] Clopidogrel [Plavix] 75 mg PO DAILY 30 Days #30 tab 01/05/21 [Rx] Insulin NPH Hum/Reg Insulin Hm [NovoLIN 70-30 100 Unit/ml Vial] See Protocol SQ ACHS 02/17/23 [History] Doxycycline Hyclate 100 mg PO BID 10 Days #20 tab 02/22/23 [Rx] amLODIPine [Norvasc] 5 mg PO DAILY #30 tab 02/22/23 [Rx] cilostazoL [Pletal] 50 mg PO BID #60 tab 02/22/23 [Rx] Apixaban [Eliquis] 2.5 mg PO BID #180 tab 04/02/23 [Rx] Insulin Detemir (Levemir) [Levemir] 35 unit SQ BID 30 Days #5 each 04/02/23 [Rx] Cephalexin [Keflex] 500 mg PO Q12HR 7 Days #14 cap 04/04/23 [Rx] Follow up Appointment(s)/Referral(s): Vipul Lock MD [STAFF PHYSICIAN] - 1 Week (THE OFFICE WILL CALL YOU WITH AN APPOINTMENT DATE AND TIME) [facility], [NON-STAFF] - Warren Padilla MD [STAFF PHYSICIAN] - 04/06/23 10:00 am () Patient Instructions/Handouts: Peripheral Vascular Disease (DC), After Radial Heart Catheterization (GEN) Activity/Diet/Wound Care/Special Instructions: *NO LIFTING, PUSHING, OR PULLING ANYTHING OVER 5 POUNDS FOR 5 DAYS *NO DRIVING FOR 3 DAYS *YOU CAN REMOVE YOUR DRESSING TOMORROW BUT DO NOT SUBMERSE YOUR PUNCTURE SITE IN WATER FOR A FEW DAYS TO PREVENT INFECTION - SO NO TUB BATHS, POOLS, HOT TUBS, DISHES...ETC *ANY SIGNS OF BLEEDING (HARDNESS, SWELLING, OR EXCESSIVE BRUISING) HOLD DIRECT PRESSURE ON YOUR PUNCTURE SITE AND COME TO THE NEAREST EMERGENCY ROOM TO GET YOUR PUNCTURE SITE LOOKED AT - DO NOT DRIVE YOURSELF! EITHER CALL EMS OR HAVE SOMEONE DRIVE YOU! Activity limited until follow-up Continue taking medications as prescribed Follow-up with Dr. Padilla as scheduled at his clinic 04/04/2023 at 10:30 AM Follow-up primary care provider on discharge Discharge Disposition: HOME SELF-CARE
== END 2023-04-04 19:01 | disposition home or self-care (01) ==
LOC: CATHCVL 08:33 → 3SCARD 14:15 → CATHCVL 04-04 19:01
PROVIDERS: ATTEND Family Medicine
DX: I70.262 Atherosclerosis of native arteries of extremities with gangrene, left leg (principal); E11.52 Type 2 diabetes mellitus with diabetic peripheral angiopathy with gangrene; E78.5 Hyperlipidemia, unspecified; G89.29 Other chronic pain; I10 Essential (primary) hypertension; I25.10 Atherosclerotic heart disease of native coronary artery without angina pectoris; F17.200 Nicotine dependence, unspecified, uncomplicated; K21.9 Gastro-esophageal reflux disease without esophagitis; Z79.01 Long term (current) use of anticoagulants; Z79.02 Long term (current) use of antithrombotics/antiplatelets; Z79.4 Long term (current) use of insulin; Z79.82 Long term (current) use of aspirin; Z86.73 Personal history of transient ischemic attack (TIA), and cerebral infarction without residual deficits; Z95.5 Presence of coronary angioplasty implant and graft
CPT/HCPCS: 37226; 76937; 37252; 80048; C1894 ×2; C1773; C1769 ×6; C1725; C1887; C1753; C1874; C2623; J2250; J2001; J2270 ×6; J1644; C9113 ×2; J1170 ×5; Q9967; J3010

== ENCOUNTER 2023-04-11 10:44 | Inpatient (IN) | payer MEDICARE ==
[2023-04-11 12:31] LABS: Basophils # (A) 0.1 k/uL (0-0.2); Basophils % (A) 1 %; Eosinophils % (A) 0 %; HCT 37.9 % (34.0-46.0); HGB 12.8 gm/dL (11.4-16.0); Lymphocytes # (A) 1.6 k/uL (1.0-4.8); Lymphocytes % (A) 14 %; MCH 27.7 pg (25.0-35.0); MCHC 33.8 g/dL (31.0-37.0); MCV 81.9 fL (80.0-100.0); Mean Platelet Volume 7.6; Monocytes # (A) 0.5 k/uL (0-1.0); Monocytes % (A) 5 %; Neutrophils % (A) 79 %; Platelet Count 332 k/uL (150-450); Poikilocytosis Slight; RBC 4.63 m/uL (3.80-5.40); RDW 13.9 % (11.5-15.5); WBC 11.4 k/uL (3.8-10.6)
[2023-04-11 12:44] LABS: INR 1.1 (<1.2); Partial Thromboplastin Time 25.7 sec (22.0-30.0)
[2023-04-11 12:55] LABS: African American GFR (CKD) >90 (>60 ml/min/1.73 sqM); Anion Gap 9 mmol/L; Blood Urea Nitrogen 11 mg/dL (7-17); Calcium 9.2 mg/dL (8.4-10.2); Carbon Dioxide 27 mmol/L (22-30); Chloride 96 mmol/L (98-107); Glucose 282 mg/dL (74-99); Non-African American GFR(CKD) >90 (>60 ml/min/1.73 sqM); Sodium 132 mmol/L (137-145)
[2023-04-11] MEDS ORDERED: VANCOMYCIN IV PER PHARMACY 1 EACH MISC MISCELLANE PRN (13:09)
[2023-04-11] MEDS ORDERED: NALOXONE 0.4 MG/ML 1 ML VIAL IV PRN (13:10)
--- NOTE | 2023-04-11 13:17 | ED ---
General Adult HPI - General Chief complaint: Recheck/Abnormal Lab/Rx Stated complaint: Foot infection Time Seen by Provider: 04/11/23 10:46 Source: patient Mode of arrival: ambulatory Limitations: no limitations - Related Data Home Medications Medication Instructions Recorded Confirmed Atorvastatin [Lipitor] 80 mg PO HS 06/26/16 03/27/23 Aspirin 81 mg PO DAILY 10/08/17 03/28/23 Insulin NPH Hum/Reg Insulin Hm See Protocol SQ ACHS 02/17/23 03/27/23 [NovoLIN 70-30 100 Unit/ml Vial] Previous Rx's Medication Instructions Recorded Clopidogrel [Plavix] 75 mg PO DAILY 30 Days #30 tab 01/05/21 Doxycycline Hyclate 100 mg PO BID 10 Days #20 tab 02/22/23 amLODIPine [Norvasc] 5 mg PO DAILY #30 tab 02/22/23 cilostazoL [Pletal] 50 mg PO BID #60 tab 02/22/23 Apixaban [Eliquis] 2.5 mg PO BID #180 tab 04/02/23 Insulin Detemir (Levemir) [Levemir] 35 unit SQ BID 30 Days #5 each 04/02/23 Cephalexin [Keflex] 500 mg PO Q12HR 7 Days #14 cap 04/04/23 Allergies Allergy/AdvReac Type Severity Reaction Status Date / Time gluten AdvReac Nausea & Verified 04/11/23 11:03 Vomiting & Diarrhea, bloating Review of Systems ROS Statement: Those systems with pertinent positive or pertinent negative responses have been documented in the HPI. ROS Other: All systems not noted in ROS Statement are negative. 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 , unsteady gait., see Cardiology [facility] INPT FOR LT FOOT ULCER-WAS SEEN IN WOUND CARE 03/26/23-HAS DRESSING ON FOOT Last Myocardial Infarction Date:: february 2017 History of Any Multi-Drug Resistant Organisms: None Reported Past Surgical History: Back Surgery, Cholecystectomy, Heart Catheterization With Stent, Orthopedic Surgery Additional Past Surgical History / Comment(s): Right 5th toe amputation, lumbar fusion, spinal cord stimulator in place but not working., left knee arthroscopy, EGD, PATRICIA, 3 cardiac stents, Aortoram, stent to left iliac artery. , stent right leg above the knee, right 4th toe amputation. ANGIOGRAM Past Anesthesia/Blood Transfusion Reactions: No Reported Reaction Additional Past Anesthesia/Blood Transfusion Reaction / Comment(s): . Date of Last Stent Placement:: 12/14/2021 Past Psychological History: Anxiety Smoking Status: Current every day smoker Past Alcohol Use History: None Reported Past Drug Use History: None Reported - Past Family History Father Family Medical History: Cancer, Liver Disease Additional Family Medical History / Comment(s): Idiopathic cirrhosis of liver, Liver Cancer. Mother Family Medical History: Coronary Artery Disease (CAD), Myocardial Infarction ([place]) Additional Family Medical History / Comment(s): Multiple stents. Mother at the age of 77 or 78 from [place]. General Exam - General Exam Comments Initial Comments: General: Well-appearing, nontoxic, no acute distress. Head: Normocephalic, atraumatic Eyes: PERRLA, EOMI ENT: Airway patent Chest: Nonlabored breathing Skin: No visual rash, normal skin tone Neuro: Alert and oriented 3 Musculoskeletal: No gross abnormalities Left foot: Malodorous gangrene to the left fourth and fifth digit. There is also a small satellite gangrenous lesion towards the medial surface of the great toe. Limitations: no limitations Course Vital Signs 04/11/23 11:00 Temperature 98.7 F Pulse Rate 94 Respiratory 18 Rate Blood Pressure 109/73 O2 Sat by Pulse 97 Oximetry Medical Decision Making - Medical Decision Making Was pt. sent in by a medical professional or institution (, PA, CUSTOMER EXPERT, urgent care, hospital, or prison...) When possible be specific @ -Instructed by vascular surgeon Did you speak to anyone other than the patient for history (EMS, parent, family, police, friend...)? What history was obtained from this source @ -Some history obtained from Dr. Padilla who instructed the patient to come to the emergency department for surgical intervention of gangrenous foot. Dr. Padilla reports that he contacted Dr. Ragland accordingly was agreeable to manage patient Did you review nursing and triage notes (agree or disagree)? Why? @ -I reviewed and agree with nursing and triage notes Were old charts reviewed (outside hosp., previous admission, EMS record, old EKG, old radiological studies, urgent care reports/EKG's, prison records)? Report findings @ -No old charts were reviewed Differential Diagnosis (chest pain, altered mental status, abdominal pain women, abdominal pain men, vaginal bleeding, musculoskeletal, weakness, fever, dys pnea, syncope, headache, dizziness, GI bleed, back pain, seizure, CVA, palpatations, mental health)? @ -Not applicable EKG interpreted by me (3pts min.). @ -None done X-rays interpreted by me (1pt min.). @ -None done CT interpreted by me (1pt min.). @ -None done U/S interpreted by me (1pt. min.). @ -None done What testing was considered but not performed or refused? (CT, X-rays, U/S, labs)? Why? @ -None What meds were considered but not given or refused? Why? @ -None Did you discuss the management of the patient with other professionals (professionals i.e. , PA, CUSTOMER EXPERT, lab, RT, psych nurse, social work associate, top bottom attaching machine operator, teacher, correction officer supervisor, case management director)? Give summary @ -Case discussed with Dr. Damon for admission Was smoking cessation discussed for >3mins.? @ -No Was critical care preformed (if so, how long)? @ -No Were there social determinants of health that impacted care today? How? (Homelessness, low income, unemployed, alcoholism, drug addiction, transportation, low edu. Level, literacy, decrease access to med. care, skilled nursing, rehab)? @ -No Was there de-escalation of care discussed even if they declined (Discuss DNR or withdrawal of care, Hospice)? DNR status @ -No What co-morbidities impacted this encounter? (DM, HTN, Smoking, COPD, CAD, Cancer, CVA, ARF, Chemo, Hep., AIDS, mental health diagnosis, sleep apnea, morbid obesity)? @ -None Was patient admitted / discharged? Hospital course, mention meds given and route, prescriptions, significant lab abnormalities, going to OR and other pertinent info. @ -62-year-old female presents emergency department for gangrenous left foot. Patient was instructed to come to the ER by vascular surgeon. Vital signs stabl e. Patient does not have any systemic symptoms. She has significant gangrene that is malodorous concerning for wet gangrene. Patient started antibiotics. Will be admitted consultation to vascular surgery. D anticipate that patient will likely get amputated left foot Undiagnosed new problem with uncertain prognosis? @ -No Drug Therapy requiring intensive monitoring for toxicity (Heparin, Nitro, Insulin, Cardizem)? @ -No Were any procedures done? @ -No Diagnosis/symptom? Acute, or Chronic, or Acute on Chronic? Uncomplicated (without systemic symptoms) or Complicated (systemic symptoms)? @ -Left foot gangrene Side effects of treatment? @ -No Exacerbation, Progression, or Severe Exacerbation? @ -No Poses a threat to life or bodily function? How? (Chest pain, [place], [place], pneumonia, PE, COPD, DKA, ARF, appy, cholecystitis, CVA, Diverticulitis, Homicidal, Suicidal, threat to staff... and all critical care pts) @ -yes - Lab Data Result diagrams: 04/11/23 11:57 Lab Results 04/11/23 04/11/23 Range/Units 11:57 11:57 WBC 11.4 H (3.8-10.6) k/uL RBC 4.63 (3.80-5.40) m/uL Hgb 12.8 (11.4-16.0) gm/dL Hct 37.9 (34.0-46.0) % MCV 81.9 (80.0-100.0) fL MCH 27.7 (25.0-35.0) pg MCHC 33.8 (31.0-37.0) g/dL RDW 13.9 (11.5-15.5) % Plt Count 332 (150-450) k/uL MPV 7.6 Neutrophils % 79 % Lymphocytes % 14 % Monocytes % 5 % Eosinophils % 0 % Basophils % 1 % Neutrophils # 9.0 H (1.3-7.7) k/uL Lymphocytes # 1.6 (1.0-4.8) k/uL Monocytes # 0.5 (0-1.0) k/uL Eosinophils # 0.0 (0-0.7) k/uL Basophils # 0.1 (0-0.2) k/uL Poikilocytosis Slight PT 12.0 (10.0-12.5) sec INR 1.1 (<1.2) APTT 25.7 (22.0-30.0) sec Disposition Clinical Impression: Gangrene of foot Disposition: ADMITTED IP TO THIS HOSP Condition: Fair Referrals: Geno Avilez DO [Primary Care Provider] - 1-2 days Decision Time: 13:16
[2023-04-11 13:24] LABS: Potassium 4.2 mmol/L (3.5-5.1)
[2023-04-11] MEDS: SODIUM CHLORIDE 0.9% 1,000 ML IV SCH (13:40)
[2023-04-11] MEDS: HYDROmorphone 1 MG/ML 1 ML SYRINGE IVP STA (13:41)
[2023-04-11] MEDS: PIPERACILLIN-TAZOBACTAM 3.375 GM in SODIUM CHLORIDE 0.9% 100 ML IVPB STA (13:42)
--- NOTE | 2023-04-11 13:59 | P.GSCN ---
History of Present Illness Consult date: 04/11/23 Reason for Consult: Gangrene left foot Requesting physician: Checo Merritt History of present illness: Is a pleasant 62-year-old female who was sent in by her vascular surgeon Dr. Padilla for concerns of wet gangrene. She has a history of left foot with dry gangrene who was recently hospitalized last week, peripheral arterial disease status post revascularization with Dr. Lock, coronary artery disease, diabetes mellitus, CVA, hyperlipidemia, hypertension, nicotine dependence and previous right foot fourth and fifth toe amputation. Patient was recently hospitalized and underwent balloon angioplasty and stenting of the left SFA with Dr. Lock on 03/28/2023, apparently patient had dry gangrene of the left fourth and fifth toes at that time and was being followed by Dr. Padilla who recommended outpatient follow-up for possible amputation. Patient was scheduled to see Dr. Padilla today but she states that she called and stated that she now was having drainage, it was wet and foul odor along with chills and nausea. She was instructed to come to the emergency department for further evaluation in which vascular surgery was consulted. She currently denies any shortness of breath, chest pain, abdominal pain but does state that she has had nausea over the last couple days and chills. Unclear sure if she had a fever. She does report pain in her left foot. Increased drainage and foul odor. Patient was supposed to be on Eliquis however states that she could not afford it and did not take it and did not call her food storeroom clerk or PCP. Review of Systems A 14 point review systems was completed all pertinent positives and negatives as stated in the HPI. 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 , unsteady gait., see Cardiology [facility] INPT FOR LT FOOT ULCER-WAS SEEN IN WOUND CARE 03/26/23-HAS DRESSING ON FOOT Last Myocardial Infarction Date:: february 2017 History of Any Multi-Drug Resistant Organisms: None Reported Past Surgical History: Back Surgery, Cholecystectomy, Heart Catheterization With Stent, Orthopedic Surgery Additional Past Surgical History / Comment(s): Right 5th toe amputation, lumbar fusion, spinal cord stimulator in place but not working., left knee arthroscopy, EGD, PATRICIA, 3 cardiac stents, Aortoram, stent to left iliac artery. , stent right leg above the knee, right 4th toe amputation. ANGIOGRAM Past Anesthesia/Blood Transfusion Reactions: No Reported Reaction Additional Past Anesthesia/Blood Transfusion Reaction / Comm: . Date of Last Stent Placement:: 12/14/2021 Past Psychological History: Anxiety Smoking Status: Current every day smoker Past Alcohol Use History: None Reported Past Drug Use History: None Reported - Past Family History Father Family Medical History: Cancer, Liver Disease Additional Family Medical History / Comment(s): Idiopathic cirrhosis of liver, Liver Cancer. Mother Family Medical History: Coronary Artery Disease (CAD), Myocardial Infarction ([place]) Additional Family Medical History / Comment(s): Multiple stents. Mother at the age of 77 or 78 from [place]. Medications and Allergies Home Medications Medication Instructions Recorded Confirmed Type Atorvastatin [Lipitor] 80 mg PO HS 06/26/16 03/27/23 History Aspirin 81 mg PO DAILY 10/08/17 03/28/23 History Clopidogrel [Plavix] 75 mg PO DAILY 30 Days #30 tab 01/05/21 03/28/23 Rx Insulin NPH Hum/Reg Insulin Hm See Protocol SQ ACHS 02/17/23 03/27/23 History [NovoLIN 70-30 100 Unit/ml Vial] Doxycycline Hyclate 100 mg PO BID 10 Days #20 tab 02/22/23 03/27/23 Rx amLODIPine [Norvasc] 5 mg PO DAILY #30 tab 02/22/23 03/27/23 Rx cilostazoL [Pletal] 50 mg PO BID #60 tab 02/22/23 03/28/23 Rx Apixaban [Eliquis] 2.5 mg PO BID #180 tab 04/02/23 Rx Insulin Detemir (Levemir) [Levemir] 35 unit SQ BID 30 Days #5 each 04/02/23 Rx Cephalexin [Keflex] 500 mg PO Q12HR 7 Days #14 cap 04/04/23 Rx Allergies Allergy/AdvReac Type Severity Reaction Status Date / Time gluten AdvReac Nausea & Verified 04/11/23 11:03 Vomiting & Diarrhea, bloating Surgical - Exam Vital Signs Temp Pulse Resp BP Pulse Ox 98.7 F 94 18 109/73 97 04/11/23 11:00 04/11/23 11:00 04/11/23 11:00 04/11/23 11:00 04/11/23 11:00 General appearance: The patient is alert, oriented, appears in no acute distress. HET: Head is normocephalic and atraumatic. Pupils are equal and reactive. Neck: Supple. Heart: Regular. Lungs: Equal expansion, normal respiratory effort. Abdomen: Soft, nontender, nondistended. Extremities: Bilateral palpable femoral pulses. Nonpalpable DP pulses or PT pulses. Left foot warm to the touch, good capillary refill. Wet gangrene second through fifth toes. Right foot with previous fourth and fifth toe amputation, well-healed. Neurological: No focal deficits. Strength and sensation are grossly intact. Results - Labs 04/11/23 11:57 04/11/23 11:57 Abnormal Lab Results - Last 24 Hours (Table) 04/11/23 04/11/23 Range/Units 11:57 11:57 WBC 11.4 H (3.8-10.6) k/uL Neutrophils # 9.0 H (1.3-7.7) k/uL Sodium 132 L (137-145) mmol/L Chloride 96 L (98-107) mmol/L Creatinine 0.41 L (0.52-1.04) mg/dL Glucose 282 H (74-99) mg/dL Diabetes panel 04/11/23 Range/Units 11:57 Sodium 132 L (137-145) mmol/L Potassium 4.2 (3.5-5.1) mmol/L Chloride 96 L (98-107) mmol/L Carbon Dioxide 27 (22-30) mmol/L BUN 11 (7-17) mg/dL Creatinine 0.41 L (0.52-1.04) mg/dL Glucose 282 H (74-99) mg/dL Calcium 9.2 (8.4-10.2) mg/dL Calcium panel 04/11/23 Range/Units 11:57 Calcium 9.2 (8.4-10.2) mg/dL Pituitary panel 04/11/23 Range/Units 11:57 Sodium 132 L (137-145) mmol/L Potassium 4.2 (3.5-5.1) mmol/L Chloride 96 L (98-107) mmol/L Carbon Dioxide 27 (22-30) mmol/L BUN 11 (7-17) mg/dL Creatinine 0.41 L (0.52-1.04) mg/dL Glucose 282 H (74-99) mg/dL Calcium 9.2 (8.4-10.2) mg/dL Adrenal panel 04/11/23 Range/Units 11:57 Sodium 132 L (137-145) mmol/L Potassium 4.2 (3.5-5.1) mmol/L Chloride 96 L (98-107) mmol/L Carbon Dioxide 27 (22-30) mmol/L BUN 11 (7-17) mg/dL Creatinine 0.41 L (0.52-1.04) mg/dL Glucose 282 H (74-99) mg/dL Calcium 9.2 (8.4-10.2) mg/dL Assessment and Plan Assessment: 1. Wet gangrene left foot 2. Peripheral arterial disease status post recent angioplasty and stenting of left SFA 3. Diabetes mellitus 4. Coronary artery disease 5. History of CVA 6. Hyperlipidemia 7. Hypertension 8. Nicotine dependence Plan: 1. Keep n.p.o. 2. Type and screen ordered 3. X-ray left foot ordered 4. ABIs ordered 5. Antibiotics per recommendations from primary medical team/infectious disease 6. Plan for left transmetatarsal amputation this afternoon 7. Rest of medical management per primary medical team Thank you for this consultation, we will continue to follow. The impression and plan of care has been dictated as directed. Dr. Ragland I performed a history and examination of this patient, discussed the same with the dictator. I agree with the dictator's note ,documented as a scribe. Any additional findings or plans will be noted.
--- NOTE | 2023-04-11 14:42 | US ---
EXAMINATION TYPE: US arterial LE multi level DATE OF EXAM: 04/11/2023 2:25 PM CLINICAL INDICATION: Female, 62 years old with history of PAD, gangrene toes; History of: Smoker: Current Smoker Hypertension: No Diabetic: Yes Hyperlipidemia: Yes TIA/CVA: Yes Previous Vascular Surgery: Yes; stents bilateral inguinal and popliteal CAD: No ID: No Vascular Ulcers: Bilateral Claudication: Yes Gangrene: Yes; big toe sore; black 4th and 5th digits Doppler Waveforms: Right: Monophasic Left: Monophasic Pulse Volume Recording: NA Pressure Gradients: NA Right Brachial Pressure: 128 Left Brachial Pressure: 128 Ankle-Brachial Indices: Right: 0.52 Left: 0.85 Toe Brachial Indices: Right: 0.52 Left: 0.48 IMPRESSION: 1. Abnormal left RAINA suggestive of mild atherosclerotic disease 2. Abnormal right RAINA suggestive of moderate to severe atherosclerotic disease
--- NOTE | 2023-04-11 14:54 | XR ---
EXAMINATION TYPE: XR foot limited LT DATE OF EXAM: 04/11/2023 COMPARISON: NONE HISTORY: Swelling TECHNIQUE: Three views are submitted. FINDINGS: There is diffuse osteopenia. There is a mildly displaced fracture involving the proximal phalanx of t he fifth digit. There is soft tissue air in adjacent to the fifth digit correlate for a gas-forming b acterial infection. There are calcaneal spurs are seen. A mild hypertrophic arthropathy first MTP. A deformity of the base of the fourth digit proximal phalanx suspicious for fracture. IMPRESSION: 1. Soft tissue edema with subcutaneous air\emphysema suspicious for cellulitis with gas forming infec tion. Regional lucencies involving the fourth and fifth phalanges suspicious for osteomyelitis. 2. There are acute mildly displaced fractures involving the base of the proximal phalanx fourth digit and distal margin proximal phalanx fifth digit. Fractures may be pathologic secondary to underlying osteomyelitis.
[2023-04-11] MEDS: VANCOMYCIN 1,250 MG in SODIUM CHLORIDE 0.9% 250 ML IVPB ONE (15:14)
[2023-04-11] MEDS: SODIUM CHLORIDE 0.9% 1,000 ML IV ONE ×2 (17:11→18:05)
[2023-04-11] MEDS ORDERED: PROPOFOL 10 MG/ML 20 ML VIAL IV ONE (18:00)
[2023-04-11] MEDS ORDERED: LIDOCAINE 1% INJ 10MG/ML (20 ML MDV) ONE (18:00)
[2023-04-11] MEDS ORDERED: fentaNYL (PF) 50 MCG/ML 2 ML AMP ONE (18:00)
[2023-04-11] MEDS ORDERED: MIDAZOLAM 2 MG/2 ML VIAL ONE (18:00)
[2023-04-11] MEDS: LACTATED RINGERS 1,000 ML IV ONE (18:25)
--- NOTE | 2023-04-11 19:14 | P.OP ---
Date of Procedure: 04/11/23 Description of Procedure: DATE OF SERVICE: 04/11/2023 SURGEON: Charito Ragland DO PREOPERATIVE DIAGNOSIS: Gangrene left forefoot POSTOPERATIVE DIAGNOSIS: Same OPERATION: Left transmetatarsal amputation ANESTHESIA: General LMA ESTIMATED BLOOD LOSS: 10 mL SPECIMENS REMOVED: forefoot for disposal COMPLICATIONS: None DESCRIPTION OF PROCEDURE: This patient is a 62-year-old female with history of peripheral vascular disease who underwent revascularization. She has had issues with gangrene continuing and recently was found to have some erythema and coloration changes. Uncertain if this is due to revascularization or changes, the patient had pain as well as very obvious gangrene with desiccation of the fourth and fifth toes and with this was recommended to undergo transmetatarsal amputation due to the location of the multiple wounds. Risks and benefits were discussed including but not limited to bleeding, infection and poor wound healing. They seemingly understands and is willing to proceed. The patient was brought to the operating room under general LMA. The foot was prepped and draped in usual sterile fashion. An incision at the mid foot was performed and plantar flap and subsequently deepened through the skin, fat, and tendons. Tendons were divided prior to plantar and dorsal aspect of the forefoot. The bone saw was used to transect the metatarsals. Electrocautery was used to remove the plantar portion of the tissues. Hemostasis was achieved with electrocautery. The rasp was utilized to remove sharp edges from the bone. The wound was irrigated. The flap was then reapproximated with interrupted sutures of 3-0 Vicryl in the subcutaneous space and skin with 3-0 nylon interrupted mattress suture. Dressing applied. The patient tolerated the procedure well.
[2023-04-11 19:22] LABS: Glucose,Whole Blood 172 mg/dL (70-110)
[2023-04-11] MEDS: HYDROmorphone 0.5 MG/0.5 ML SYRINGE IVP ONE (19:48)
[2023-04-11 20:27] LABS: Glucose,Whole Blood 177 mg/dL (70-110)
[2023-04-11] MEDS: HYDROcodone/APAP 5-325MG 1 EACH TAB PO PRN (21:10)
[2023-04-11] MEDS: PIPERACILLIN-TAZOBACTAM 3.375 GM in SODIUM CHLORIDE 0.9% 100 ML IVPB SCH (21:51)
[2023-04-11] MEDS: VANCOMYCIN 1,250 MG in SODIUM CHLORIDE 0.9% 250 ML IVPB SCH (23:16)
[2023-04-11] MEDS: HYDROmorphone 1 MG/ML 1 ML SYRINGE IVP PRN (23:55)
[2023-04-12 01:51] LABS: Glucose,Whole Blood 149 mg/dL (70-110)
[2023-04-12] MEDS: ACETAMINOPHEN TAB 325 MG TAB PO PRN (05:33)
[2023-04-12 07:12] LABS: African American GFR (CKD) >90 (>60 ml/min/1.73 sqM); Non-African American GFR(CKD) >90 (>60 ml/min/1.73 sqM)
[2023-04-12 07:40] LABS: Glucose,Whole Blood 274 mg/dL (70-110)
[2023-04-12] MEDS: INSULIN ASPART (NovoLOG) 100 UNIT/ML VIAL SQ SCH ×2 (08:22→20:58)
[2023-04-12 09:36] LABS: HCT 31.4 % (34.0-46.0); HGB 10.5 gm/dL (11.4-16.0); Hypochromasia Slight; MCH 27.4 pg (25.0-35.0); MCHC 33.5 g/dL (31.0-37.0); MCV 81.7 fL (80.0-100.0); Mean Platelet Volume 8.1; Platelet Count 264 k/uL (150-450); Poikilocytosis Moderate; RBC 3.84 m/uL (3.80-5.40); WBC 8.4 k/uL (3.8-10.6)
[2023-04-12 10:02] LABS: African American GFR (CKD) >90 (>60 ml/min/1.73 sqM); Anion Gap 7 mmol/L; Blood Urea Nitrogen 9 mg/dL (7-17); Calcium 8.1 mg/dL (8.4-10.2); Carbon Dioxide 26 mmol/L (22-30); Chloride 102 mmol/L (98-107); Glucose 258 mg/dL (74-99); Non-African American GFR(CKD) >90 (>60 ml/min/1.73 sqM); Potassium 3.7 mmol/L (3.5-5.1); Sodium 135 mmol/L (137-145)
--- NOTE | 2023-04-12 10:16 | P.PN ---
Subjective Progress Note Date: 04/12/23 Principal diagnosis: Gangrene left foot Patient was seen and examined today as a follow-up. She is postop day #1 for left transmetatarsal amputation. She currently states her pain is well- controlled. States she had gotten Dilaudid through the night. She did undergo ABIs yesterday left 0.85 and right 0.52. She did spike a fever up to 101.3 this morning. WBC 8.4 hemoglobin 10.5 platelet count 264,000. Sodium 135 potassium 3.7 BUN 9 creatinine 0.47 Objective - Vital Signs Vital signs: Vital Signs Temp 99.3 F 04/12/23 07:59 Pulse 76 04/12/23 07:59 Resp 16 04/12/23 07:59 BP 126/74 04/12/23 07:59 Pulse Ox 95 04/12/23 07:59 FiO2 Intake & Output 04/11/23 04/12/23 04/12/23 18:59 06:59 18:59 Intake Total 700 Output Total 10 Balance 700 -10 Weight 65.771 kg 65.771 kg Intake: IV 700 Output: Estimated Blood Loss 10 Other: Voiding Method Bedside Commode Bedside Commode # Voids 1 - Exam General appearance: The patient is alert, oriented, appears in no acute distress. HET: Head is normocephalic and atraumatic. Pupils are equal and reactive. Neck: Supple. Heart: Regular. Lungs: Equal expansion, normal respiratory effort. Abdomen: Soft, nontender, nondistended. Extremities: Left TMA site with dressing clean dry and intact. Neurological: No focal deficits. Strength and sensation are grossly intact. - Labs CBC & Chem 7: 04/12/23 09:16 04/12/23 09:16 Labs: Abnormal Lab Results - Last 24 Hours (Table) 04/11/23 04/11/23 04/11/23 Range/Units 11:57 11:57 19:21 WBC 11.4 H (3.8-10.6) k/uL Hgb (11.4-16.0) gm/dL Hct (34.0-46.0) % Neutrophils # 9.0 H (1.3-7.7) k/uL Sodium 132 L (137-145) mmol/L Chloride 96 L (98-107) mmol/L Creatinine 0.41 L (0.52-1.04) mg/dL Glucose 282 H (74-99) mg/dL POC Glucose (mg/dL) 172 H (70-110) mg/dL Calcium (8.4-10.2) mg/dL 04/11/23 04/12/23 04/12/23 Range/Units 20:24 01:49 06:12 WBC (3.8-10.6) k/uL Hgb (11.4-16.0) gm/dL Hct (34.0-46.0) % Neutrophils # (1.3-7.7) k/uL Sodium (137-145) mmol/L Chloride (98-107) mmol/L Creatinine 0.43 L (0.52-1.04) mg/dL Glucose (74-99) mg/dL POC Glucose (mg/dL) 177 H 149 H (70-110) mg/dL Calcium (8.4-10.2) mg/dL 04/12/23 04/12/23 04/12/23 Range/Units 07:20 09:16 09:16 WBC (3.8-10.6) k/uL Hgb 10.5 L (11.4-16.0) gm/dL Hct 31.4 L (34.0-46.0) % Neutrophils # (1.3-7.7) k/uL Sodium 135 L (137-145) mmol/L Chloride (98-107) mmol/L Creatinine 0.47 L (0.52-1.04) mg/dL Glucose 258 H (74-99) mg/dL POC Glucose (mg/dL) 274 H (70-110) mg/dL Calcium 8.1 L (8.4-10.2) mg/dL Assessment and Plan Assessment: 1. Gangrene left foot 2. Peripheral arterial disease status post recent angioplasty and stenting of left SFA 3. Diabetes mellitus 4. Coronary artery disease 5. History of CVA 6. Hyperlipidemia 7. Hypertension 8. Nicotine dependence Plan: 1. Continue pain medication as needed 2. Consult to physical therapy, heel weightbearing only to left foot with walker 3. May resume anticoagulation 4. Continue antibiotics per recommendations from infectious disease 5. Arterial ultrasound of lower extremities reviewed, ABIs left 0.85, 0.52 on the right. Left TMA wound should have no difficulty healing. 6. Hold off on dressing change until postop day #2 Thank you for this consultation, we will continue to follow. The impression and plan of care has been dictated as directed. Dr. Ragland I performed a history and examination of this patient, discussed the same with the dictator. I agree with the dictator's note ,documented as a scribe. Any additional findings or plans will be noted.
[2023-04-12 11:50] LABS: Glucose,Whole Blood 248 mg/dL (70-110)
[2023-04-12] MEDS: CLOPIDOGREL 75 MG TAB PO SCH (12:21)
[2023-04-12] MEDS: amLODIPine 5 MG TAB PO SCH (12:21)
[2023-04-12] MEDS: ASPIRIN 81 MG PO SCH (12:21)
[2023-04-12] MEDS: HYDROcodone/APAP 10-325MG 1 EACH TAB PO PRN (12:21)
[2023-04-12] MEDS: PANTOPRAZOLE 40 MG/10 ML VIAL IVP SCH (12:21)
[2023-04-12 13:15] VITALS: BMI 22.0
--- NOTE | 2023-04-12 15:11 | P.HPIM ---
History of Present Illness H&P Date: 04/12/23 This is 62-year-old female with past medical history significant for recent inpatient hospitalization last week ,underwent balloon angioplasty and stenting of the left SFA with Dr. Lock ,PAD, multiple bilateral lower extremity stents placed by Dr. Cruz, diabetes mellitus and multiple other medical issues presented with cellulitis, necrotic changes, worsening infected left foot ulcers with concerns for wet gangrene, referred by Dr. Padilla. Postdischarge patient followed up with Dr. Padilla vascular surgery for further Doppler evaluation and potential amputation. Patient reports worsening of left foot, increased foul- smelling drainage, positive chills,fevers, nausea and vomiting and was directed to come to the ER for further vascular surgery evaluation. Evaluated by vascular surgery, underwent left transmetatarsal amputation for gangrene left forefoot, postop day #1. Tolerated procedure well. Pain controlled on Dilaudid, [place].Tmax 101.3, WBC 8.4. Renal function stable. Blood sugars uncontrolled,in the 200s. denies chest pain, palpitations or shortness of breath. Review of Systems ROS Other: All systems not noted in ROS Statement are negative. ROS Statement: Those systems with pertinent positive or pertinent negative responses have been documented in the HPI. Past Medical History Past Medical History: CVA/TIA, Diabetes Mellitus, GERD/Reflux, Hyperlipidemia, Hypertension, Myocardial Infarction ([place]), Vascular Disorder Additional Past Medical History / Comment(s): 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 , unsteady gait., see Cardiology [facility] INPT FOR LT FOOT ULCER-WAS SEEN IN WOUND CARE 03/26/23-HAS DRESSING ON FOOT Last Myocardial Infarction Date:: february 2017 History of Any Multi-Drug Resistant Organisms: None Reported Past Surgical History: Back Surgery, Cholecystectomy, Heart Catheterization With Stent, Orthopedic Surgery Additional Past Surgical History / Comment(s): Right 5th toe amputation, lumbar fusion, spinal cord stimulator in place but not working., left knee arthroscopy, EGD, PATRICIA, 3 cardiac stents, Aortoram, stent to left iliac artery. , stent right leg above the knee, right 4th toe amputation. ANGIOGRAM,m 04/11/23 left toes amputation. Past Anesthesia/Blood Transfusion Reactions: No Reported Reaction Additional Past Anesthesia/Blood Transfusion Reaction / Comment(s): . Date of Last Stent Placement:: 12/14/2021 Past Psychological History: Anxiety Additional Psychological History / Comment(s): . Smoking Status: Current every day smoker Past Alcohol Use History: None Reported Additional Past Alcohol Use History / Comment(s): Patient has smoked one pack a day for 40 years, patient states she is cutting down and planning to quit. Past Drug Use History: None Reported - Past Family History Father Family Medical History: Cancer, Liver Disease Additional Family Medical History / Comment(s): Idiopathic cirrhosis of liver, Liver Cancer. Mother Family Medical History: Coronary Artery Disease (CAD), Myocardial Infarction ([place]) Additional Family Medical History / Comment(s): Multiple stents. Mother at the age of 77 or 78 from [place]. Medications and Allergies Home Medications Medication Instructions Recorded Confirmed Type Atorvastatin [Lipitor] 80 mg PO HS 06/26/16 04/11/23 History Aspirin 81 mg PO DAILY 10/08/17 04/11/23 History Clopidogrel [Plavix] 75 mg PO DAILY 30 Days #30 tab 01/05/21 04/11/23 Rx Insulin NPH Hum/Reg Insulin Hm See Protocol SQ ACHS 02/17/23 04/11/23 History [NovoLIN 70-30 100 Unit/ml Vial] amLODIPine [Norvasc] 5 mg PO DAILY #30 tab 02/22/23 04/11/23 Rx cilostazoL [Pletal] 50 mg PO BID #60 tab 02/22/23 04/11/23 Rx Apixaban [Eliquis] 2.5 mg PO BID #180 tab 04/02/23 04/11/23 Rx Allergies Allergy/AdvReac Type Severity Reaction Status Date / Time gluten AdvReac Nausea & Verified 04/11/23 14:14 Vomiting & Diarrhea, bloating Physical Exam Vitals: Vital Signs Temp Pulse Pulse Resp BP BP Pulse Ox 04/12/23 07:59 99.3 F 76 16 126/74 95 04/12/23 06:21 98.9 F 04/12/23 05:30 101.3 F H 04/12/23 01:36 99.3 F 80 18 134/77 94 L 04/11/23 20:22 98.7 F 84 16 130/81 98 04/11/23 20:00 76 15 123/71 99 04/11/23 19:45 81 17 128/70 95 04/11/23 19:27 76 15 100/58 92 L 04/11/23 19:12 96.9 F L 77 16 113/67 98 04/11/23 17:11 99.6 F 80 16 128/66 97 04/11/23 17:00 80 18 127/84 97 04/11/23 15:15 89 18 121/73 97 Intake and Output 04/11/23 04/12/23 04/12/23 22:59 06:59 14:59 Intake Total 700 Output Total 10 Balance 690 Intake: IV 700 Output: Estimated Blood Loss 10 Other: Voiding Method Bedside Commode Bedside Commode # Voids 1 Weight 65.771 kg 65.771 kg - Exam PHYSICAL EXAM: VITAL SIGNS: [As above] GENERAL: Alert and oriented 3, Sitting up in bed, no acute distress HEENT: Normocephalic ,Conjunctivae normal. MMM. NECK: Supple, No JVD. CARDIOVASCULAR: S1, S2 regular. No murmur RESPIRATION: Unlabored, equal air entry, CTA with bilateral bases diminished. ABDOMEN: Soft, nondistended, nontender . No guarding. +BS. LEGS: Left foot dressing clean dry and intact NERVOUS SYSTEM: Cranial N 2-12 grossly normal. No focal deficits. Skin: Warm and dry, no rash Results CBC & Chem 7: 04/12/23 09:16 04/12/23 09:16 Labs: Abnormal Lab Results - Last 24 Hours (Table) 04/11/23 04/11/23 04/12/23 Range/Units 19:21 20:24 01:49 Hgb (11.4-16.0) gm/dL Hct (34.0-46.0) % Sodium (137-145) mmol/L Creatinine (0.52-1.04) mg/dL Glucose (74-99) mg/dL POC Glucose (mg/dL) 172 H 177 H 149 H (70-110) mg/dL Calcium (8.4-10.2) mg/dL 04/12/23 04/12/23 04/12/23 Range/Units 06:12 07:20 09:16 Hgb 10.5 L (11.4-16.0) gm/dL Hct 31.4 L (34.0-46.0) % Sodium (137-145) mmol/L Creatinine 0.43 L (0.52-1.04) mg/dL Glucose (74-99) mg/dL POC Glucose (mg/dL) 274 H (70-110) mg/dL Calcium (8.4-10.2) mg/dL 04/12/23 04/12/23 Range/Units 09:16 11:38 Hgb (11.4-16.0) gm/dL Hct (34.0-46.0) % Sodium 135 L (137-145) mmol/L Creatinine 0.47 L (0.52-1.04) mg/dL Glucose 258 H (74-99) mg/dL POC Glucose (mg/dL) 248 H (70-110) mg/dL Calcium 8.1 L (8.4-10.2) mg/dL Thrombosis Risk Factor Assmnt - Choose All That Apply Each Factor Represents 1 point: Age 41-60 years Thrombosis Risk Factor Assessment Total Risk Factor Score: 1 Thrombosis Risk Factor Assessment Level: Low Risk Assessment and Plan Assessment: Left forefoot gangrene status post left transmetatarsal amputation. PAD with recent angioplasty and stenting of left SFA Insulin-dependent diabetes mellitus, hyperglycemic, hemoglobin A1c 9.6, further teaching outpatient in clinic History of multiple bilateral lower extremity stents placed by Dr. Lock Hypertension Hyperlipidemia History of CVA Nicotine dependence Plan: Continue on current medication regimen ,monitoring and symptomatic treatment. Blood cultures ordered IV antibiotics as per infectious disease .Cleared to resume anticoagulation as per vascular surgery .vascular surgery recommending Plavix and baby aspirin as patient was unable to afford Eliquis previously. Pain management. Tight blood sugar control, Levemir insulin added to med regimen with close monitoring of Accu-Cheks. The impression and plan of care has been dictated as directed. : I performed a history and examination of this patient, discussed the same with the dictator. I agree with the dictator's note ,documented as a scribe. Any additional findings or plans will be noted. Nicotine dependence
[2023-04-12 17:13] LABS: Glucose,Whole Blood 282 mg/dL (70-110)
[2023-04-12] MEDS: INSULIN DETEMIR (LEVEMIR) 100 UNIT/ML SYR SQ SCH (17:43)
[2023-04-12] MEDS: ATORVASTATIN 80 MG TAB PO SCH (20:20)
[2023-04-12 20:26] LABS: Glucose,Whole Blood 375 mg/dL (70-110)
--- NOTE | 2023-04-12 22:20 | P.CONS ---
History of Present Illness - Reason for Consult Consult date: 04/12/23 - History of Present Illness Patient is a 62-year-old female with a past medical history significant for diabetes mellitus hypertension hyperlipidemia reflux CVA TIA presenting to the hospital from her surgeon office concerning for wet gangrene, the patient apparently did have admission to the hospital a week and did have a revascularization with Dr. Cruz patient noticed to have increased discoloration of the left fourth and fifth toe and also complaining of drainage and foul order patient also complaining of nausea and vomiting subsequently patient was advised to go to the hospital patient was noted to have bradykinesia to the second through fifth toes by vascular surgery patient was taken to the OR last evening and the patient is status post left transmetatarsal amputation no cultures has been done patient on presentation to the hospital was afebrile this morning she did spike a fever of 101.3 F patient did have a white count of 11.4 down to 8.4 today creatinine 0.47 patient has been started on Zosyn and vancomycin infectious disease was consulted for further management of antibiotic therapy, patient complaining of pain to the left [facility] send patient is likely mostly sharp moderate intensity without radiation, the patient was complaining of foul-smelling drainage with associated swelling redness and some discoloration patient currently denies having any headache no chest pain pattie rtness of breath or cough no nausea vomiting and no diarrhea Past Medical History Past Medical History: CVA/TIA, Diabetes Mellitus, GERD/Reflux, Hyperlipidemia, Hypertension, Myocardial Infarction ([place]), Vascular Disorder Additional Past Medical History / Comment(s): 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 , unsteady gait., see Cardiology [facility] INPT FOR LT FOOT ULCER-WAS SEEN IN WOUND CARE 03/26/23-HAS DRESSING ON FOOT Last Myocardial Infarction Date:: february 2017 History of Any Multi-Drug Resistant Organisms: None Reported Past Surgical History: Back Surgery, Cholecystectomy, Heart Catheterization With Stent, Orthopedic Surgery Additional Past Surgical History / Comment(s): Right 5th toe amputation, lumbar fusion, spinal cord stimulator in place but not working., left knee arthroscopy, EGD, PATRICIA, 3 cardiac stents, Aortoram, stent to left iliac artery. , stent right leg above the knee, right 4th toe amputation. ANGIOGRAM,m 04/11/23 left toes am putation. Past Anesthesia/Blood Transfusion Reactions: No Reported Reaction Additional Past Anesthesia/Blood Transfusion Reaction / Comm: . Date of Last Stent Placement:: 12/14/2021 Past Psychological History: Anxiety Additional Psychological History / Comment(s): . Smoking Status: Current every day smoker Past Alcohol Use History: None Reported Additional Past Alcohol Use History / Comment(s): Patient has smoked one pack a day for 40 years, patient states she is cutting down and planning to quit. Past Drug Use History: None Reported - Past Family History Father Family Medical History: Cancer, Liver Disease Additional Family Medical History / Comment(s): Idiopathic cirrhosis of liver, Liver Cancer. Mother Family Medical History: Coronary Artery Disease (CAD), Myocardial Infarction ([place]) Additional Family Medical History / Comment(s): Multiple stents. Mother at the age of 77 or 78 from [place]. Medications and Allergies Home Medications Medication Instructions Recorded Confirmed Type Atorvastatin [Lipitor] 80 mg PO HS 06/26/16 04/11/23 History Aspirin 81 mg PO DAILY 10/08/17 04/11/23 History Clopidogrel [Plavix] 75 mg PO DAILY 30 Days #30 tab 01/05/21 04/11/23 Rx Insulin NPH Hum/Reg Insulin Hm See Protocol SQ ACHS 02/17/23 04/11/23 History [NovoLIN 70-30 100 Unit/ml Vial] amLODIPine [Norvasc] 5 mg PO DAILY #30 tab 02/22/23 04/11/23 Rx cilostazoL [Pletal] 50 mg PO BID #60 tab 02/22/23 04/11/23 Rx Apixaban [Eliquis] 2.5 mg PO BID #180 tab 04/02/23 04/11/23 Rx Allergies Allergy/AdvReac Type Severity Reaction Status Date / Time gluten AdvReac Nausea & Verified 04/11/23 14:14 Vomiting & Diarrhea, bloating Physical Exam Vitals: Vital Signs Temp Pulse Pulse Resp BP BP Pulse Ox 04/12/23 07:59 99.3 F 76 16 126/74 95 04/12/23 06:21 98.9 F 04/12/23 05:30 101.3 F H 04/12/23 01:36 99.3 F 80 18 134/77 94 L 04/11/23 20:22 98.7 F 84 16 130/81 98 04/11/23 20:00 76 15 123/71 99 04/11/23 19:45 81 17 128/70 95 04/11/23 19:27 76 15 100/58 92 L 04/11/23 19:12 96.9 F L 77 16 113/67 98 04/11/23 17:11 99.6 F 80 16 128/66 97 04/11/23 17:00 80 18 127/84 97 04/11/23 15:15 89 18 121/73 97 04/11/23 13:38 97 18 128/86 99 04/11/23 11:00 98.7 F 94 18 109/73 97 Intake and Output 04/11/23 04/12/23 04/12/23 22:59 06:59 14:59 Intake Total 700 Output Total 10 Balance 690 Intake: IV 700 Output: Estimated Blood Loss 10 Other: Voiding Method Bedside Commode Bedside Commode # Voids 1 Weight 65.771 kg Results CBC & Chem 7: 04/12/23 09:16 04/12/23 09:16 Labs: Abnormal Lab Results - Last 24 Hours (Table) 04/11/23 04/11/23 04/11/23 Range/Units 11:57 11:57 19:21 WBC 11.4 H (3.8-10.6) k/uL Hgb (11.4-16.0) gm/dL Hct (34.0-46.0) % Neutrophils # 9.0 H (1.3-7.7) k/uL Sodium 132 L (137-145) mmol/L Chloride 96 L (98-107) mmol/L Creatinine 0.41 L (0.52-1.04) mg/dL Glucose 282 H (74-99) mg/dL POC Glucose (mg/dL) 172 H (70-110) mg/dL Calcium (8.4-10.2) mg/dL 04/11/23 04/12/23 04/12/23 Range/Units 20:24 01:49 06:12 WBC (3.8-10.6) k/uL Hgb (11.4-16.0) gm/dL Hct (34.0-46.0) % Neutrophils # (1.3-7.7) k/uL Sodium (137-145) mmol/L Chloride (98-107) mmol/L Creatinine 0.43 L (0.52-1.04) mg/dL Glucose (74-99) mg/dL POC Glucose (mg/dL) 177 H 149 H (70-110) mg/dL Calcium (8.4-10.2) mg/dL 04/12/23 04/12/23 04/12/23 Range/Units 07:20 09:16 09:16 WBC (3.8-10.6) k/uL Hgb 10.5 L (11.4-16.0) gm/dL Hct 31.4 L (34.0-46.0) % Neutrophils # (1.3-7.7) k/uL Sodium 135 L (137-145) mmol/L Chloride (98-107) mmol/L Creatinine 0.47 L (0.52-1.04) mg/dL Glucose 258 H (74-99) mg/dL POC Glucose (mg/dL) 274 H (70-110) mg/dL Calcium 8.1 L (8.4-10.2) mg/dL Assessment and Plan Plan: 1patient presented to hospital with sepsis in this patient noted to have fever elevated white count source is left foot wet gangrene and cellulitis and need to cover for resistant gram-positive as well as gram-negative pathogen 2-patient to continue the vancomycin however switch Zosyn to Unasyn to decrease risk of nephrotoxicity 3-cultures will be followed We will follow on clinical condition and cultures to further adjust medication if needed Thank you for this consultation we will follow the patient along with you Dictation was produced using [employer] dictation software. please excuse any grammatical, word or spelling errors. Time with Patient: Greater than 30
[2023-04-12] MEDS: AMPICILLIN-SULBACTAM 3 GM in SODIUM CHLORIDE 0.9% 100 ML IVPB SCH (23:12)
[2023-04-13 06:11] LABS: African American GFR (CKD) >90 (>60 ml/min/1.73 sqM); Non-African American GFR(CKD) >90 (>60 ml/min/1.73 sqM)
[2023-04-13 07:17] LABS: Glucose,Whole Blood 245 mg/dL (70-110)
[2023-04-13] MEDS: ONDANSETRON 4 MG/2 ML VIAL IVP PRN (08:30)
--- NOTE | 2023-04-13 09:41 | P.PN ---
Subjective Progress Note Date: 04/13/23 Principal diagnosis: Gangrene left foot Patient is seen and examined today as a follow-up. Patient still has pain to the left foot however improved from yesterday. Physical therapy consulted however has not seen patient yet. She is currently afebrile. She remains on IV antibiotics. Objective - Vital Signs Vital signs: Vital Signs Temp 98.1 F 04/13/23 07:17 Pulse 67 04/13/23 07:17 Resp 16 04/13/23 07:17 BP 111/70 04/13/23 07:17 Pulse Ox 98 04/13/23 07:17 FiO2 Intake & Output 04/12/23 04/13/23 04/13/23 18:59 06:59 18:59 Intake Total 120 Output Total 1000 Balance -880 Weight 65.771 kg Intake: Oral 120 Output: Urine 1000 Other: Voiding Method Bedside Commode Bedside Commode Bedside Commode # Voids 1 # Bowel Movements 1 - Exam General appearance: The patient is alert, oriented, appears in no acute distress. HET: Head is normocephalic and atraumatic. Pupils are equal and reactive. Neck: Supple. Extremities: Left TMA site with dressing clean dry and intact. Dressing removed, incision site well-approximated with sutures, surrounding tissue pink, warm. Neurological: No focal deficits. Alert and oriented x 3. - Labs CBC & Chem 7: 04/12/23 09:16 04/13/23 05:26 Labs: Abnormal Lab Results - Last 24 Hours (Table) 04/12/23 04/12/23 04/12/23 Range/Units 09:16 09:16 11:38 Hgb 10.5 L (11.4-16.0) gm/dL Hct 31.4 L (34.0-46.0) % Sodium 135 L (137-145) mmol/L Creatinine 0.47 L (0.52-1.04) mg/dL Glucose 258 H (74-99) mg/dL POC Glucose (mg/dL) 248 H (70-110) mg/dL Calcium 8.1 L (8.4-10.2) mg/dL 04/12/23 04/12/23 04/13/23 Range/Units 17:11 20:25 05:26 Hgb (11.4-16.0) gm/dL Hct (34.0-46.0) % Sodium (137-145) mmol/L Creatinine 0.44 L (0.52-1.04) mg/dL Glucose (74-99) mg/dL POC Glucose (mg/dL) 282 H 375 H (70-110) mg/dL Calcium (8.4-10.2) mg/dL 04/13/23 Range/Units 07:16 Hgb (11.4-16.0) gm/dL Hct (34.0-46.0) % Sodium (137-145) mmol/L Creatinine (0.52-1.04) mg/dL Glucose (74-99) mg/dL POC Glucose (mg/dL) 245 H (70-110) mg/dL Calcium (8.4-10.2) mg/dL Assessment and Plan Assessment: 1. Gangrene left foot status post transmetatarsal amputation 2. Peripheral arterial disease status post recent angioplasty and stenting of left SFA 3. Diabetes mellitus 4. Coronary artery disease 5. History of CVA 6. Hyperlipidemia 7. Hypertension 8. Nicotine dependence Plan: 1. Continue pain medication as needed 2. Consult to physical therapy, heel weightbearing only to left foot with walker 3. May resume anticoagulation 4. Continue with recommendations from infectious disease 5. Arterial ultrasound of lower extremities reviewed, ABIs left 0.85, 0.52 on the right. Left TMA wound should have no difficulty healing. 6. Daily dressing change or as needed, 4 x 4 over incision wrap with Kerlix Thank you for this consultation, patient stable from a vascular surgical standpoint and may be discharged. She is to follow-up with Dr. Padilla in 1 to 2 weeks. The impression and plan of care has been dictated as directed. Dr. Ragland I performed a history and examination of this patient, discussed the same with the dictator. I agree with the dictator's note ,documented as a scribe. Any additional findings or plans will be noted.
[2023-04-13 12:11] LABS: Glucose,Whole Blood 306 mg/dL (70-110)
--- NOTE | 2023-04-13 13:25 | P.PN ---
Subjective Progress Note Date: 04/13/23 Principal diagnosis: Reason for follow-up is left foot gangrene Patient is a 62-year-old female with a past medical history significant for diabetes mellitus hypertension hyperlipidemia reflux CVA TIA presenting to the hospital with weight gain into the left foot requiring transmetatarsal amputation. On today's evaluation that is 04/13/2023,the patient remains to be afebrile, patient is on room air not requiring supplemental oxygen and denies any shortness of breath no chest pain or cough.Patient did have some nausea but no vomiting still complaining of pain to the left foot so controlled with the pain medication. Patient did have a creatinine 0.44 Vanco trough is 14.1 no cultures Objective - Vital Signs Vital signs: Vital Signs Temp 98.1 F 04/13/23 07:17 Pulse 67 04/13/23 07:17 Resp 16 04/13/23 07:17 BP 111/70 04/13/23 07:17 Pulse Ox 98 04/13/23 07:17 FiO2 Intake & Output 04/12/23 04/13/23 04/13/23 18:59 06:59 18:59 Intake Total 120 Output Total 1000 Balance -880 Weight 65.771 kg Intake: Oral 120 Output: Urine 1000 Other: Voiding Method Bedside Commode Bedside Commode Bedside Commode # Voids 1 # Bowel Movements 1 - Exam GENERAL DESCRIPTION: Middle-aged female lying in bed in no distress RESPIRATORY SYSTEM: Unlabored breathing , decreased breath sounds at bases HEART: S1 S2 regular rate and rhythm , ABDOMEN: Soft , no tenderness EXTREMITIES: Left foot is currently dressed no drainage on the dressing - Labs CBC & Chem 7: 04/12/23 09:16 04/13/23 05:26 Labs: Abnormal Lab Results - Last 24 Hours (Table) 04/12/23 04/12/23 04/12/23 Range/Units 11:38 17:11 20:25 Creatinine (0.52-1.04) mg/dL POC Glucose (mg/dL) 248 H 282 H 375 H (70-110) mg/dL 04/13/23 04/13/23 Range/Units 05:26 07:16 Creatinine 0.44 L (0.52-1.04) mg/dL POC Glucose (mg/dL) 245 H (70-110) mg/dL Assessment and Plan (1) Gangrene of foot Current Visit: Yes Status: Acute Code(s): I96 - GANGRENE, NOT ELSEWHERE CLASSIFIED SNOMED Code(s): 643346781 (2) Cellulitis of left foot Current Visit: No Status: Acute Code(s): L03.116 - CELLULITIS OF LEFT LOWER LIMB SNOMED Code(s): 92187795323408848 Plan: 1patient presented to hospital with sepsis in this patient noted to have fever elevated white count source is left foot wet gangrene and cellulitis and need to cover for resistant gram-positive as well as gram-negative pathogen 2-patient to continue the vancomycin and Unasyn for another 24 to 48 hours before transition to oral antibiotics will be discharged once cleared by vascular surgery Dictation was produced using [employer] dictation software. please excuse any grammatical, word or spelling errors. Time with Patient: Less than 30
[2023-04-13] MEDS: GABAPENTIN 100 MG CAP PO SCH (16:54)
[2023-04-13] MEDS: ALPRAZolam 0.25 MG TAB PO PRN (16:54)
--- NOTE | 2023-04-13 17:05 | CDI ---
Documentation Clarification Form Date: 04/13/2023 04:43PM From: Jannet Lake RN CCDS Phone: [phone] Admit Date: 04/11/2023 01:10:00 PM Patient Name: Mary Jo Caldwell Visit Number: [id number] Discharge Date: ATTENTION: The Clinical Documentation Specialists (CDI) and [facility] Coding Staff appreciate your assistance in clarifying documentation. Please respond to the clarification below the line at the bottom and electronically sign. The CDI & [facility] Coding staff will review the response and follow-up if needed. Please note: Queries are made part of the Legal Health Record. If you have any questions, please contact the author of this message via ITS. Dr. Jeff Damon Sepsis is documented 04/12, ID consult which may lack sufficient clinical evidence/support in the medical record. Additional clarification is requested. History/Risk Factors: 62 year old female was directed to go to the ED by Dr. Padilla with worsening left foot, increased foul smelling drainage positive chills, fevers, nausea and vomiting. Medical History: CAD, DM, recent balloon angioplasty and stenting of the left SFA with Dr. Lock 03/28, CVA, HLD, HTN Clinical Indicators: VSS: 04/11, 11:00 B/P 109/73, HR 94, Temp 98.7F Oral, RR 18, SpO2 97% room air LABS, 04/11: Wbc 11.4, Neutrophils 9.0 ID consult, 04/12: patient presented to hospital with sepsis in this patient noted to have fever elevated white count source is left foot wet gangrene and cellulitis and need to cover for resistant gram-positive as well as gram-negative pathogen. Treatment: 04/11 0.9ns 20cc/hr, 04/11 Zosyn 3.375gm IVPB x 1; 04/11 Vancomycin 1,250mg IVPB x 1; 04/11 04/12 Zoysn 3.375GM IVPB Q8H, 04/11 Vancomycin 1,250mg IVPB Q8H, 04/12 Ampicillin 3gm IVPB Q6H After work up and study, please clarify which diagnosis is most appropriate? [ X] Sepsis ruled out [ ] Sepsis is a valid diagnosis as evidence by the following: (Please add rationale): [ ] Other, please specify [ ] Unable to determine SIRS Criteria: 2 or more of the following may indicate SIRS Temperature < 96.8F (36C) or > 101.0F (38.3C) Heart Rate > 90 bpm Respiratory Rate > 20 breaths/min or PaCO2 < 32 mmHg White Blood Cell Count > 12,000 or < 4,000 cells/mm3 or > 10% bands (Template Last Reviewed: February 2023) JUDID
[2023-04-13 17:07] LABS: Glucose,Whole Blood 282 mg/dL (70-110)
--- NOTE | 2023-04-13 19:09 | P.PN ---
Subjective Progress Note Date: 04/13/23 This is 62-year-old female with past medical history significant for recent inpatient hospitalization last week ,underwent balloon angioplasty and stenting of the left SFA with Dr. Lock ,PAD, multiple bilateral lower extremity stents placed by Dr. Cruz, diabetes mellitus and multiple other medical issues presented with cellulitis, necrotic changes, worsening infected left foot ulcers with concerns for wet gangrene, referred by Dr. Padilla. Postdischarge patient followed up with Dr. Padilla vascular surgery for further Doppler evaluation and potential amputation. Patient reports worsening of left foot, increased foul- smelling drainage, positive chills,fevers, nausea and vomiting and was directed to come to the ER for further vascular surgery evaluation. Evaluated by vascular surgery, underwent left transmetatarsal amputation for gangrene left forefoot, postop day #1. Tolerated procedure well. Pain controlled on Dilaudid, [place].Tmax 101.3, WBC 8.4. Renal function stable. Blood sugars uncontrolled,in the 200s. denies chest pain, palpitations or shortness of breath. 04/13/2023 Patient seen and evaluated in follow-up today with infectious disease and vascular surgery following. Vascular surgery has cleared the patient for discharge and is status post left foot metatarsal amputation for gangrene. Patient also with concerns of sepsis secondary to left foot cellulitis, present on admission. Patient will continue on ampicillin as well as vancomycin with infectious disease following recommending continued antibiotic therapy prior to discharging home. Patient with generalized weakness and continued foot pain would recommend physical therapy evaluation. Patient is afebrile with no reported chest pain or shortness of breath. Patient is tolerating diet with no reported nausea or vomiting. Recommend tight glycemic control and continued Accu-Cheks before meals and at bedtime and will adjust current medication regimen as blood sugars have been elevated. Review of systems: Constitutional: No reports of fatigue, fever, or chills Cardiovascular: No reports of chest pain or palpitations Respiratory: No reports of shortness of breath or cough GI: No reports of nausea, vomiting, or diarrhea : No reports of dysuria or retention Neurovascular: reports of generalized weakness left foot pain and tenderness All medications have been reviewed Physical exam: Gen: This is a 62-year-old female who is awake, alert and oriented x 3, well- developed, well-nourished, elderly appearing HEENT: Head is atraumatic, normocephalic. Pupils equal, round. Sclerae is anicteric. NECK: Supple. No JVD. No lymphadenopathy. No thyromegaly. LUNGS: Clear to auscultation. No wheezes or rhonchi. No intercostal retractions. HEART: Regular rate and rhythm. No murmur. ABDOMEN: Soft. Bowel sounds are present. No masses. No tenderness. EXTREMITIES: No pedal edema. No calf tenderness. Left foot surgical dressing is dry and intact. Tenderness on palpation of left upper foot and ankle and jones area. Minimal redness noted of the surrounding area NEUROLOGICAL: Patient is awake, alert and oriented x3. Cranial nerves 2 through 12 are grossly intact. Diffusely weak, anxious Assessment: Left forefoot gangrene status post left transmetatarsal amputation. Sepsis secondary to left foot cellulitis, present on admission PAD with recent angioplasty and stenting of left SFA Insulin-dependent diabetes mellitus, uncontrolled with hyperglycemia, hemoglobin A1c 9.6, further teaching outpatient in clinic History of multiple bilateral lower extremity stents placed by Dr. Lock Diabetic neuropathy Hypertension Hyperlipidemia History of CVA Nicotine dependence GI prophylaxis DVT prophylaxis Full code Plan: Patient is status post left transmetatarsal amputation with Dr. Ragland. Continue local wound care and surgical site is clean and dry Patient is continued on IV antibiotics in the form of ampicillin and vancomycin with infectious disease following closely recommended continue with IV antibiotic therapy as there was concerns about secondary left foot and extremity cellulitis on admission. Patient with generalized weakness recommend PT/OT therapy evaluation Blood sugars are uncontrolled with elevated and will adjust insulins and make long-acting twice daily Follow-up on repeat labs Social work/case management following working on discharge planning as plan is to return home with home care. Patient is unable to afford Eliquis and will be continued on aspirin and Plavix per vascular surgery Prognosis is guarded The impression and plan of care has been dictated by Consuelo Combs, Nurse Practitioner as directed. Dr. Joe MD I have performed a history and examination and MDM of this patient, discussed the same with the dictator, and agree with the dictator's assessment and plan as written ,documented as a scribe. Based on total visit time, I have performed more than 50% of the visit. Objective - Vital Signs Vital signs: Vital Signs Temp 98.1 F 04/13/23 07:17 Pulse 67 04/13/23 07:17 Resp 16 04/13/23 07:17 BP 111/70 04/13/23 07:17 Pulse Ox 98 04/13/23 07:17 FiO2 Intake & Output 04/12/23 04/13/23 04/13/23 18:59 06:59 18:59 Intake Total 120 Output Total 1000 Balance -880 Weight 65.771 kg Intake: Oral 120 Output: Urine 1000 Other: Voiding Method Bedside Commode Bedside Commode Bedside Commode # Voids 1 # Bowel Movements 1 - Labs CBC & Chem 7: 04/12/23 09:16 04/13/23 05:26 Labs: Abnormal Lab Results - Last 24 Hours (Table) 04/12/23 04/12/23 04/12/23 Range/Units 09:16 11:38 17:11 Sodium 135 L (137-145) mmol/L Creatinine 0.47 L (0.52-1.04) mg/dL Glucose 258 H (74-99) mg/dL POC Glucose (mg/dL) 248 H 282 H (70-110) mg/dL Calcium 8.1 L (8.4-10.2) mg/dL 04/12/23 04/13/23 04/13/23 Range/Units 20:25 05:26 07:16 Sodium (137-145) mmol/L Creatinine 0.44 L (0.52-1.04) mg/dL Glucose (74-99) mg/dL POC Glucose (mg/dL) 375 H 245 H (70-110) mg/dL Calcium (8.4-10.2) mg/dL
[2023-04-13 20:20] LABS: Glucose,Whole Blood 230 mg/dL (70-110)
[2023-04-13] MEDS: INSULIN DETEMIR (LEVEMIR) 100 UNIT/ML SYR SQ SCH (21:12)
[2023-04-14 07:32] LABS: Glucose,Whole Blood 206 mg/dL (70-110)
[2023-04-14 10:00] LABS: Basophils # (A) 0.03 X 10*3/uL (0.00-0.10); Basophils % (A) 0.4 %; Eosinophils # (A) 0.19 X 10*3/uL (0.04-0.35); Eosinophils % (A) 2.8 %; HGB 9.3 g/dL (12.0-15.0); Lymphocytes # (A) 1.34 X 10*3/uL (0.90-5.00); Lymphocytes % (A) 19.6 %; MCH 26.4 pg (27.0-32.0); MCHC 32.1 g/dL (32.0-37.0); MCV 82.4 FL (80.0-97.0); Mean Platelet Volume 9.9 FL (9.5-12.2); Monocytes % (A) 5.9 %; NRBC Per 100 WBC 0 X 10*3/uL (0.00-0.01); Neutrophils # (A) 4.84 X 10*3/uL (1.80-7.70); Platelet Count 250 X 10*3/uL (140-440); RBC 3.52 X 10*6/uL (4.10-5.20); RDW 13.4 % (11.5-14.5); WBC 6.82 X 10*3/uL (4.50-10.00)
[2023-04-14 10:28] LABS: BUN/Creat Ratio 10.33 Ratio (12.00-20.00); Blood Urea Nitrogen 6.2 mg/dL (9.0-27.0); Calcium 8.4 mg/dL (8.7-10.3); Carbon Dioxide 27.3 mmol/L (21.6-31.8); Chloride 105 mmol/L (96-109); Glucose 183 mg/dL (70-110); Potassium 3.8 mmol/L (3.5-5.5); Sodium 144 mmol/L (135-145)
--- NOTE | 2023-04-14 11:53 | P.PN ---
Subjective Progress Note Date: 04/14/23 Principal diagnosis: Reason for follow-up is left foot gangrene Patient is a 62-year-old female with a past medical history significant for diabetes mellitus hypertension hyperlipidemia reflux CVA TIA presenting to the hospital with weight gain into the left foot requiring transmetatarsal amputation. On today's evaluation that is 04/14/2023, the patient continues to be afebrile, the patient is on room air and breathing comfortably, the Pt denies having any chest pain or cough, the patient denies having any abdominal pain no vomiting or any diarrhea has been reported by the nursing staff, the patient pain to the left foot transmetatarsal imitation site is currently controlled. Patient did have a white count of 6.82, creatinine 0.6 blood cultures negative Objective - Vital Signs Vital signs: Vital Signs Temp 98.3 F 04/14/23 08:05 Pulse 71 04/14/23 08:05 Resp 16 04/14/23 08:05 BP 134/77 04/14/23 08:05 Pulse Ox 96 04/14/23 08:05 FiO2 Intake & Output 04/13/23 04/14/23 04/14/23 18:59 06:59 18:59 Other: Voiding Method Bedside Commode Bedside Commode Bedside Commode # Voids 1 1 - Exam GENERAL DESCRIPTION: Middle-aged female lying in bed in no distress RESPIRATORY SYSTEM: Unlabored breathing , decreased breath sounds at bases HEART: S1 S2 regular rate and rhythm , ABDOMEN: Soft , no tenderness EXTREMITIES: Left foot is currently dressed no drainage on the dressing - Labs CBC & Chem 7: 04/14/23 06:29 04/14/23 06:29 Labs: Abnormal Lab Results - Last 24 Hours (Table) 04/13/23 04/13/23 04/13/23 Range/Units 12:10 17:05 20:03 RBC (4.10-5.20) X 10*6/uL Hgb (12.0-15.0) g/dL Hct (37.2-46.3) % MCH (27.0-32.0) pg BUN (9.0-27.0) mg/dL BUN/Creatinine Ratio (12.00-20.00) Ratio Glucose (70-110) mg/dL POC Glucose (mg/dL) 306 H 282 H 230 H (70-110) mg/dL Calcium (8.7-10.3) mg/dL 04/14/23 04/14/23 04/14/23 Range/Units 06:29 06:29 07:27 RBC 3.52 L (4.10-5.20) X 10*6/uL Hgb 9.3 L (12.0-15.0) g/dL Hct 29.0 L (37.2-46.3) % MCH 26.4 L (27.0-32.0) pg BUN 6.2 L (9.0-27.0) mg/dL BUN/Creatinine Ratio 10.33 L (12.00-20.00) Ratio Glucose 183 H (70-110) mg/dL POC Glucose (mg/dL) 206 H (70-110) mg/dL Calcium 8.4 L (8.7-10.3) mg/dL Microbiology - Last 24 Hours (Table) 04/12/23 09:15 Blood Culture - Preliminary Blood Assessment and Plan (1) Gangrene of foot Current Visit: Yes Status: Acute Code(s): I96 - GANGRENE, NOT ELSEWHERE CLASSIFIED SNOMED Code(s): 194081229 (2) Cellulitis of left foot Current Visit: No Status: Acute Code(s): L03.116 - CELLULITIS OF LEFT LOWER LIMB SNOMED Code(s): 88069131468990861 Plan: 1patient presented to hospital with sepsis in this patient noted to have fever elevated white count source is left foot wet gangrene and cellulitis and need to cover for resistant gram-positive as well as gram-negative pathogen 2-patient currently covered with vancomycin and Unasyn blood culture has been negative so far no local cultures were done, plan will be for oral antibiotics on discharge Dictation was produced using [employer] dictation software. please excuse any grammatical, word or spelling errors. Time with Patient: Less than 30
[2023-04-14 12:19] LABS: Glucose,Whole Blood 223 mg/dL (70-110)
[2023-04-14 13:30] VITALS: BP 120/65; PULSE 72; RESP 15; TEMP 98.2
--- NOTE | 2023-04-17 14:22 | P.DS ---
Providers Date of admission: 04/11/23 13:10 Attending physician: Jeff Damon MD Consults: 04/11/23 13:10 Consult Physician Routine Consulting Provider: Charito Ragland Consult Reason/Comments: foot gangrene Do you want consulting provider notified?: Yes 04/12/23 09:09 Consult Physician Routine Consulting Provider: Jeanie Patricio Consult Reason/Comments: gangrene s/p amputation Do you want consulting provider notified?: Yes Primary care physician: Geno Avilez Hospital Course: Final Diagnosis Left forefoot gangrene status post left transmetatarsal amputation. Sepsis secondary to left foot cellulitis, present on admission PAD with recent angioplasty and stenting of left SFA Insulin-dependent diabetes mellitus, uncontrolled with hyperglycemia, hemoglobin A1c 9.6, further teaching outpatient in clinic History of multiple bilateral lower extremity stents placed by Dr. Lock Diabetic neuropathy Hypertension Hyperlipidemia History of CVA Nicotine dependence GI prophylaxis DVT prophylaxis Full code Discharge Disposition Patient is stable for discharge home. Recommending to Offload weight to left forefoot. Heel walk only. Walk with postop shoe only. Dressing change daily or as needed with 4 x 4 over incision line wrapped with kerlex. Patient to follow up with PCP Barbie Chaney [employer] in the office in 1 to 2 days, patient to follow up with Dr. padilla in the office, and also Dr. Patricio. Discharged with oral antibiotics augmentin for 7 days. Vascular recommending discharge off eliquis it is not needed at this time. Patient to continue with aspirin and plavix. Patient has been on gabapentin and cymbalta together in the past states it worked well for her these have been resumed on discharge. Hospital Course This is 62-year-old female with past medical history significant for recent inpatient hospitalization last week ,underwent balloon angioplasty and stenting of the left SFA with Dr. Lock ,PAD, multiple bilateral lower extremity stents placed by Dr. Cruz, diabetes mellitus and multiple other medical issues presented with cellulitis, necrotic changes, worsening infected left foot ulcers with concerns for wet gangrene, referred by Dr. Padilla. Postdischarge patient followed up with Dr. Padilla vascular surgery for further Doppler evaluation and potential amputation. Patient reports worsening of left foot, increased foul- smelling drainage, positive chills,fevers, nausea and vomiting and was directed to come to the ER for further vascular surgery evaluation. Evaluated by vascular surgery, underwent left transmetatarsal amputation for gangrene left forefoot. Tolerated procedure well. Renal function stable. Blood sugars uncontrolled,in the 200s. Patient seen and evaluated in follow-up today with infectious disease and vascular surgery following. Vascular surgery has cleared the patient for discharge and is status post left foot metatarsal amputation for gangrene. Patient also with concerns of sepsis secondary to left foot cellulitis, present on admission. Patient will continue on ampicillin as well as vancomycin with infectious disease following while inpatient and recommending oral augmentin on discharge. Please see medication reconciliation for a list of current medications. Thank you for allowing us to participate in the care of this patient. The impression and plan of care has been dictated by Jenniffer Almeida, Nurse Practitioner as directed. Dr. Isaias MD I have performed a history and physical examination and medical decision making of this patient, discussed the same with the dictator, and agree with the dictators assessment and plan as written, documented as a scribe. Based on total visit time, I have performed more than 50% of this visit. Patient Condition at Discharge: Fair Plan - Discharge Summary Discharge Rx Participant: No New Discharge Prescriptions: New Amoxic-Pot Clav 875-125Mg [Augmentin 875-125] 1 tab PO Q12HR 7 Days #14 tab Gabapentin [Neurontin] 100 mg PO TID 10 Days #30 cap HYDROcodone/APAP 10-325MG [[place] 10-325] 1 each PO Q6HR PRN 4 Days #16 tab PRN Reason: Pain Famotidine [Pepcid] 20 mg PO DAILY #30 tablet DULoxetine HCL [Cymbalta] 60 mg PO DAILY #30 cap Ondansetron [Zofran] 4 mg PO Q8HR PRN #12 tab PRN Reason: Nausea Continue Atorvastatin [Lipitor] 80 mg PO HS Aspirin 81 mg PO DAILY Insulin NPH Hum/Reg Insulin Hm [NovoLIN 70-30 100 Unit/ml Vial] See Protocol SQ ACHS amLODIPine [Norvasc] 5 mg PO DAILY #30 tab cilostazoL [Pletal] 50 mg PO BID #60 tab Clopidogrel [Plavix] 75 mg PO DAILY 30 Days #30 tab Discontinued Apixaban [Eliquis] 2.5 mg PO BID #180 tab Discharge Medication List Atorvastatin [Lipitor] 80 mg PO HS 06/26/16 [History] Aspirin 81 mg PO DAILY 10/08/17 [History] Clopidogrel [Plavix] 75 mg PO DAILY 30 Days #30 tab 01/05/21 [Rx] Insulin NPH Hum/Reg Insulin Hm [NovoLIN 70-30 100 Unit/ml Vial] See Protocol SQ ACHS 02/17/23 [History] amLODIPine [Norvasc] 5 mg PO DAILY #30 tab 02/22/23 [Rx] cilostazoL [Pletal] 50 mg PO BID #60 tab 02/22/23 [Rx] Amoxic-Pot Clav 875-125Mg [Augmentin 875-125] 1 tab PO Q12HR 7 Days #14 tab 04/14/23 [Rx] DULoxetine HCL [Cymbalta] 60 mg PO DAILY #30 cap 04/14/23 [Rx] Famotidine [Pepcid] 20 mg PO DAILY #30 tablet 04/14/23 [Rx] Gabapentin [Neurontin] 100 mg PO TID 10 Days #30 cap 04/14/23 [Rx] HYDROcodone/APAP 10-325MG [[place] 10-325] 1 each PO Q6HR PRN 4 Days #16 tab 04/14/23 [Rx] Ondansetron [Zofran] 4 mg PO Q8HR PRN #12 tab 04/14/23 [Rx] Follow up Appointment(s)/Referral(s): [facility], [NON-STAFF] - 1 Week Warren Padilla MD [STAFF PHYSICIAN] - 2 Weeks Barbie Chaney NPC [Nurse Practitioner] - 1-2 Days Jeanie Patricio MD [STAFF PHYSICIAN] - 1 Week Ambulatory/Diagnostic Orders: Basic Metabolic Panel [LAB.AMB] Location: None Selected Complete Blood Count w/diff [LAB.AMB] Time Frame: 3 Days, Location: None Selected Patient Instructions/Handouts: Osteomyelitis (DC), Gangrene (DC) Activity/Diet/Wound Care/Special Instructions: Offload weight to left forefoot. Heel walk only. Walk with postop shoe only. Daily dressing change or as needed, 4 x 4 over incision line wrapped with Kerlix DIET TOLERATED aCTIVITY lIMITED UNTIl SEEN BY DR. Rodriguez Disposition: HOME WITH HOME HEALTH SERVICES
== END 2023-04-14 19:15 | disposition home health service (06) | DRG 240 ==
LOC: EC 10:44 → 5NMEDONC 13:10
PROVIDERS: ADMIT Family Medicine; ATTEND Family Medicine
PROC: 0Y6N0Z0 Detachment at Left Foot, Complete, Open Approach (ICD-10-PCS; principal; 2023-04-11 12:50)
DX: E11.52 Type 2 diabetes mellitus with diabetic peripheral angiopathy with gangrene (principal); I69.351 Hemiplegia and hemiparesis following cerebral infarction affecting right dominant side; I96 Gangrene, not elsewhere classified; L03.116 Cellulitis of left lower limb; E11.40 Type 2 diabetes mellitus with diabetic neuropathy, unspecified; E11.621 Type 2 diabetes mellitus with foot ulcer; L97.529 Non-pressure chronic ulcer of other part of left foot with unspecified severity; I10 Essential (primary) hypertension; Z95.820 Peripheral vascular angioplasty status with implants and grafts; Z79.4 Long term (current) use of insulin; I25.10 Atherosclerotic heart disease of native coronary artery without angina pectoris; E78.5 Hyperlipidemia, unspecified; F41.9 Anxiety disorder, unspecified; I25.2 Old myocardial infarction; K90.0 Celiac disease; K44.9 Diaphragmatic hernia without obstruction or gangrene; K21.9 Gastro-esophageal reflux disease without esophagitis; G89.29 Other chronic pain; M54.50 Low back pain, unspecified; R26.81 Unsteadiness on feet; F17.210 Nicotine dependence, cigarettes, uncomplicated; Z71.6 Tobacco abuse counseling; Z79.01 Long term (current) use of anticoagulants; Z79.82 Long term (current) use of aspirin; Z79.02 Long term (current) use of antithrombotics/antiplatelets; Z79.899 Other long term (current) drug therapy; Z95.5 Presence of coronary angioplasty implant and graft; Z98.1 Arthrodesis status
CPT/HCPCS: 36415; 80048; 80202; 82565; 83735; 85025; 85027; 85610; 85730; 86850; 86900; 86901; 87040; 93923; 94760; 96365; 96366; 96367; 96375; 99285

== ENCOUNTER 2024-05-29 20:44 | Inpatient (IN) | payer MEDICARE ==
[2024-05-29] MEDS: ONDANSETRON 4 MG/2 ML VIAL IVP STA (22:11)
[2024-05-29] MEDS: MORPHINE SULFATE 4 MG/ML SYRINGE IVP STA (22:13)
--- NOTE | 2024-05-29 23:02 | ED ---
Fall HPI - General Source: patient, EMS Mode of arrival: EMS <Nathalie Mai - Last Filed: 05/29/24 23:00> <Khadar Roman - Last Filed: 05/30/24 04:46> - General Chief Complaint: Fall Stated Complaint: Fall, hyperglycemia Time Seen by Provider: 05/29/24 20:50 - History of Present Illness Initial Comments: 63-year-old female who presents emergency department reporting left shoulder and left hip pain. Patient states that she has significant neuropathy in her lower extremities and has had previous amputations of her foot and toes. She does have difficulty with ambulation. States that she lost her balance yesterday and fell onto her left hip. She also complains of pain in the left shoulder. She denies hitting her head. No neck or back pain. States that she has had difficulty ambulating on the left hip. She denies any abdominal pain. No chest pain or difficulty breathing. No other alleviating, precipitating modifying factors (Nathalie Mai) - Related Data Home Medications Medication Instructions Recorded Confirmed Atorvastatin [Lipitor] 80 mg PO HS 06/26/16 04/11/23 Aspirin 81 mg PO DAILY 10/08/17 04/11/23 Insulin NPH Hum/Reg Insulin Hm See Protocol SQ ACHS 02/17/23 04/11/23 [NovoLIN 70-30 100 Unit/ml Vial] Previous Rx's Medication Instructions Recorded Clopidogrel [Plavix] 75 mg PO DAILY 30 Days #30 tab 01/05/21 amLODIPine [Norvasc] 5 mg PO DAILY #30 tab 02/22/23 cilostazoL [Pletal] 50 mg PO BID #60 tab 02/22/23 Amoxic-Pot Clav 875-125Mg 1 tab PO Q12HR 7 Days #14 tab 04/14/23 [Augmentin 875-125] DULoxetine HCL [Cymbalta] 60 mg PO DAILY #30 cap 04/14/23 Famotidine [Pepcid] 20 mg PO DAILY #30 tablet 04/14/23 Gabapentin [Neurontin] 100 mg PO TID 10 Days #30 cap 04/14/23 HYDROcodone/APAP 10-325MG [Vass 1 each PO Q6HR PRN 4 Days #16 tab 04/14/23 10-325] Ondansetron [Zofran] 4 mg PO Q8HR PRN #12 tab 04/14/23 Allergies Allergy/AdvReac Type Severity Reaction Status Date / Time gluten AdvReac Nausea & Verified 05/29/24 20:49 Vomiting & Diarrhea, bloating Review of Systems ROS Other: All systems not noted in ROS Statement are negative. <Nathalie Mai Jessica - Last Filed: 05/29/24 23:00> ROS Other: All systems not noted in ROS Statement are negative. <Khadar Roman - Last Filed: 05/30/24 04:46> ROS Statement: Those systems with pertinent positive or pertinent negative responses have been documented in the HPI. 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 , unsteady gait., see Cardiology [facility] INPT FOR LT FOOT ULCER-WAS SEEN IN WOUND CARE 03/26/23-HAS DRESSING ON FOOT Last Myocardial Infarction Date:: february 2017 History of Any Multi-Drug Resistant Organisms: None Reported Past Surgical History: Back Surgery, Cholecystectomy, Heart Catheterization With Stent, Orthopedic Surgery Additional Past Surgical History / Comment(s): Right 5th toe amputation, lumbar fusion, spinal cord stimulator in place but not working., left knee arthroscopy, EGD, PATRICIA, 3 cardiac stents, Aortoram, stent to left iliac artery. , stent right leg above the knee, right 4th toe amputation. ANGIOGRAM,m 04/11/23 left toes amputation. Past Anesthesia/Blood Transfusion Reactions: No Reported Reaction Additional Past Anesthesia/Blood Transfusion Reaction / Comment(s): . Date of Last Stent Placement:: 12/14/2021 Past Psychological History: Anxiety Smoking Status: Current every day smoker Past Alcohol Use History: None Reported Past Drug Use History: None Reported - Past Family History Father Family Medical History: Cancer, Liver Disease Additional Family Medical History / Comment(s): Idiopathic cirrhosis of liver, Liver Cancer. Mother Family Medical History: Coronary Artery Disease (CAD), Myocardial Infarction ([place]) Additional Family Medical History / Comment(s): Multiple stents. Mother at the age of 77 or 78 from [place]. <Nathalie Mai - Last Filed: 05/29/24 23:00> General Exam Limitations: no limitations <Nathalie Mai - Last Filed: 05/29/24 23:00> Course Vital Signs 05/29/24 05/29/24 05/30/24 20:45 23:55 02:00 Temperature 98.3 F Pulse Rate 92 87 80 Respiratory 17 17 15 Rate Blood Pressure 125/83 125/72 91/66 O2 Sat by Pulse 99 97 96 Oximetry Medical Decision Making <Nathalie Mai - Last Filed: 05/29/24 23:00> - Medical Decision Making Was pt. sent in by a medical professional or institution (, PA, GATE KEEPER, urgent care, hospital, or long-term...) When possible be specific @ -[No] Did you speak to anyone other than the patient for history (EMS, parent, family, police, friend...)? What history was obtained from this source @ -[No] Did you review nursing and triage notes (agree or disagree)? Why? @ -[I reviewed and agree with nursing and triage notes] Were old charts reviewed (outside hosp., previous admission, EMS record, old EKG, old radiological studies, urgent care reports/EKG's, long-term records)? Report findings @ -[No old charts were reviewed] Differential Diagnosis (chest pain, altered mental status, abdominal pain women, abdominal pain men, vaginal bleeding, weakness, fever, dyspnea, syncope, headache, dizziness, GI bleed, back pain, seizure, CVA, palpatations, mental health, musculoskeletal)? @ -[not applicable] EKG interpreted by me (3pts min.). @ -Yes and demonstrates sinus rhythm with rate of 85. ID interval 128. QRS 85. QTc of 411. No acute ST segment elevations or depressions X-rays interpreted by me (1pt min.). @ -[None done] CT interpreted by me (1pt min.). @ -[None done] U/S interpreted by me (1pt. min.). @ -[None done] What testing was considered but not performed or refused? (CT, X-rays, U/S, labs)? Why? @ -[None] What meds were considered but not given or refused? Why? @ -[None] Did you discuss the management of the patient with other professionals (professionals i.e. ., PA, GATE KEEPER, lab, RT, psych nurse, social work program coordinator, pricing director, teacher, learning officer, watch caser)? Give summary @ -[No] Was smoking cessation discussed for >3mins.? @ -[No] Was critical care preformed (if so, how long)? @ -[No] Were there social determinants of health that impacted care today? How? (Homelessness, low income, unemployed, alcoholism, drug addiction, transportation, low edu. Level, literacy, decrease access to med. care, longterm, rehab)? @ -[No] Was there de-escalation of care discussed even if they declined (Discuss DNR or withdrawal of care, Hospice)? DNR status @ -[No] What co-morbidities impacted this encounter? (DM, HTN, Smoking, COPD, CAD, Cancer, CVA, ARF, Chemo, Hep., AIDS, mental health diagnosis, sleep apnea, morbid obesity)? @ -[None] Was patient admitted / discharged? Hospital course, mention meds given and route, prescriptions, significant lab abnormalities, going to OR and other pertinent info. @ -[hospital course] Undiagnosed new problem with uncertain prognosis? @ -[No] Drug Therapy requiring intensive monitoring for toxicity (Heparin, Nitro, Insulin, Cardizem)? @ -[No] Were any procedures done? @ -[No] Diagnosis/symptom? @ -[default] Acute, or Chronic, or Acute on Chronic? @ -[default] Uncomplicated (without systemic symptoms) or Complicated (systemic symptoms)? @ -[default] Side effects of treatment? @ -[No] Exacerbation, Progression, or Severe Exacerbation? @ -[No] Poses a threat to life or bodily function? How? (Chest pain, [place], [place], pneumonia, PE, COPD, DKA, ARF, appy, cholecystitis, CVA, Diverticulitis, Homicidal, Suicidal, threat to staff... and all critical care pts) @ -[No] (Nathalie Mai) Disposition <Nathalie Mai - Last Filed: 05/29/24 23:00> Is patient prescribed a controlled substance at d/c from ED?: No <Khadar Roman - Last Filed: 05/30/24 04:46> Clinical Impression: Fall, Greater trochanter fracture Disposition: ADMITTED IP TO THIS HOSP Condition: Fair Referrals: Crystal Stanton DO [Primary Care Provider] - 1-2 days
[2024-05-29] MEDS: HYDROmorphone 1 MG/ML 1 ML SYRINGE IVP STA (23:52)
--- NOTE | 2024-05-30 00:09 | XR ---
EXAM: XR Left Shoulder Complete, 2 or More Views CLINICAL HISTORY: XR Reason: fall TECHNIQUE: Two or more views of the left shoulder. COMPARISON: No relevant prior studies available. FINDINGS: Bones/joints: Mild diffuse osteopenia. The proximal humerus is intact and normally positioned with respect to the glenoid. The clavicle and scapula appear intact and normally aligned. Mild degenerative changes of the left acromioclavicular joint. The acromioclavicular and coracoclavicular spaces are normal. No acute fracture. Soft tissues: Unremarkable. IMPRESSION: Mild degenerative changes. No acute fracture or dislocation is seen.
--- NOTE | 2024-05-30 00:14 | XR ---
EXAM: XR Left Hip With Pelvis When Performed, 2 or 3 Views CLINICAL HISTORY: XR Reason: fall TECHNIQUE: Two or three views of the left hip with pelvis when performed. COMPARISON: No relevant prior studies available. FINDINGS: Bones/joints: Subtle lucency in the superior aspect of the greater trochanter of the proximal left femur. Questionable nondisplaced fracture. Mild narrowing and osteophytosis of left hip joint consistent with osteoarthritis. No displaced fracture or dislocation is seen. Previous left iliac stent. Partial visualization of instrumentation in the lumbosacral junction. The visualized portion of the pelvis appears intact. Soft tissues: Unremarkable. IMPRESSION: 1. Subtle lucency in the superior aspect of the greater trochanter of the proximal left femur. Questionable nondisplaced fracture. 2. Mild narrowing and osteophytosis of left hip joint consistent with osteoarthritis. No displaced fracture or dislocation is seen.
--- NOTE | 2024-05-30 00:26 | CT ---
EXAM: CT Left Lower Extremity Without Intravenous Contrast, Hip CLINICAL HISTORY: CT Reason: hip pain, cant ambulate TECHNIQUE: Axial computed tomography images of the left hip without intravenous contrast. CTDI is 9.2 mGy and DLP is 355.4 mGy-cm. This CT exam was performed using one or more of the following dose reduction techniques: automated exposure control, adjustment of the mA and/or kV according to patient size, and/or use of iterative reconstruction technique. COMPARISON: No relevant prior studies available. FINDINGS: Bones/joints: Nondisplaced oblique fracture through the superior corner of the left greater trochanter. This does not extend all the way across the proximal femur. Mild narrowing and osteophytosis of the left hip joint consistent with osteoarthritis. No dislocation. Soft tissues: Unremarkable. Vasculature: There is a left external iliac artery stent in place. Bladder: Mild urinary bladder wall thickening may be due to cystitis. IMPRESSION: 1. Nondisplaced oblique fracture through the superior corner of the left greater trochanter. This does not extend all the way across the proximal femur. 2. Mild narrowing and osteophytosis of the left hip joint consistent with osteoarthritis. 3. Mild urinary bladder wall thickening may be due to cystitis.
[2024-05-30] MEDS ORDERED: NALOXONE 0.4 MG/ML 1 ML VIAL IV PRN (04:38)
[2024-05-30] MEDS: HYDROmorphone 0.5 MG/0.5 ML SYRINGE IVP STA (05:09)
[2024-05-30 05:22] LABS: Basophils # (A) 0.05 10*3/uL (0.00-0.10); Basophils % (A) 0.6 %; Eosinophils # (A) 0.26 10*3/uL (0.04-0.35); Eosinophils % (A) 3.1 %; HCT 37.1 % (37.2-46.3); HGB 13.3 g/dL (12.0-15.0); Lymphocytes # (A) 2.45 10*3/uL (0.90-5.00); Lymphocytes % (A) 29.3 %; MCH 30.8 pg (27.0-32.0); MCHC 35.8 g/dL (32.0-37.0); MCV 85.9 fL (80.0-97.0); Mean Platelet Volume 9.9 fL (9.5-12.2); Monocytes # (A) 0.54 10*3/uL (0.20-1.00); Monocytes % (A) 6.5 %; Neutrophils # (A) 5.05 10*3/uL (1.80-7.70); Neutrophils % (A) 60.3 %; Platelet Count 183 10*3/uL (140-440); RBC 4.32 10*6/uL (4.10-5.20); RDW 13.1 % (11.5-14.5); WBC 8.37 10*3/uL (4.50-10.00)
[2024-05-30 05:39] LABS: ALT 12 U/L (4-34); AST 14 U/L (14-36); African American GFR (CKD) >90 (>60 ml/min/1.73 sqM); Albumin 3.7 g/dL (3.5-5.0); Alkaline Phosphatase 75 U/L (38-126); Anion Gap 9 mmol/L; Blood Urea Nitrogen 13 mg/dL (7-17); Calcium 9.3 mg/dL (8.4-10.2); Carbon Dioxide 25 mmol/L (22-30); Chloride 99 mmol/L (98-107); Glucose 338 mg/dL (74-99); Non-African American GFR(CKD) >90 (>60 ml/min/1.73 sqM); Sodium 133 mmol/L (137-145); Total Bilirubin 0.8 mg/dL (0.2-1.3); Total Protein 6.3 g/dL (6.3-8.2)
[2024-05-30 07:56] LABS: Partial Thromboplastin Time 20.6 sec (22.0-30.0)
[2024-05-30] MEDS ORDERED: DULoxetine HCL 60 MG CAPSULE.DR PO SCH (09:00)
[2024-05-30] MEDS: GABAPENTIN 100 MG CAP PO SCH ×2 (10:13→21:20)
[2024-05-30] MEDS: amLODIPine 5 MG TAB PO SCH (10:13)
[2024-05-30] MEDS: FAMOTIDINE 20 MG TAB PO SCH (10:14)
[2024-05-30] MEDS: cilostazoL 100 MG TAB PO SCH (10:15)
[2024-05-30] MEDS: MORPHINE SULFATE 4 MG/ML SYRINGE IV PRN (10:20)
[2024-05-30 11:45] LABS: Glucose,Whole Blood 411 mg/dL (70-110)
[2024-05-30 17:13] LABS: Glucose,Whole Blood 532 mg/dL (70-110)
[2024-05-30] MEDS ORDERED: DEXTROSE 50% SYRINGE 50 ML IVP PRN ×2 (17:30)
[2024-05-30] MEDS: INSULIN LISPRO (HumaLOG) 100 UNIT/ML 10 mL VL SQ ONE ×2 (18:19→21:21)
[2024-05-30] MEDS: INSULIN LISPRO (HumaLOG) 100 UNIT/ML 10 mL VL SQ SCH (18:19)
[2024-05-30 20:25] LABS: Glucose,Whole Blood 488 mg/dL (70-110)
[2024-05-30] MEDS: DULoxetine HCL 60 MG CAPSULE.DR PO SCH (21:20)
[2024-05-30] MEDS: ATORVASTATIN 80 MG TAB PO SCH (21:20)
[2024-05-30] MEDS: INSULIN GLARGINE (LANTUS) 100 UNIT/ML SYR SQ SCH (21:22)
[2024-05-31 06:03] LABS: Glucose,Whole Blood 311 mg/dL (70-110)
[2024-05-31] MEDS: lisinopriL 20 MG TAB PO SCH (08:40)
[2024-05-31] MEDS: FENOFIBRATE 160 MG TAB PO SCH (08:40)
[2024-05-31] MEDS: CLOPIDOGREL 75 MG TAB PO SCH (08:40)
--- NOTE | 2024-05-31 09:01 | P.PN ---
Subjective Progress Note Date: 05/31/24 No acute events overnight. Patient states they are doing relatively well this morning. Patient states that the majority of her pain is isolated to the left hip. They state their left shoulder continues to be sore but not a significant amount of pain. Patient states today or up to chair yesterday and were thankful to be up out of bed. Patient states she has been maintaining touchdown weightbearing of the left lower extremity with walker. Objective - Vital Signs Vital signs: Vital Signs Temp 98.2 F 05/31/24 07:21 Pulse 79 05/31/24 07:21 Resp 16 05/31/24 07:21 BP 110/62 05/31/24 07:21 Pulse Ox 93 L 05/31/24 07:21 FiO2 Intake & Output 05/30/24 05/31/24 05/31/24 18:59 06:59 18:59 Intake Total 10 Output Total 400 Balance 10 -400 Intake: IV 10 Invasive Line 2 10 Output: Urine 400 Other: Voiding Method Toilet External Catheter # Voids 3 - Exam Patient was resting comfortably in bed. Patient was in no acute distress. Patient was awake, alert, and able to answer questions. Left shoulder exam: Inspection: Left shoulder with no obvious deformity. No ecchymosis, open lesions, or overlying erythema. Palpation: No tenderness to palpation over the left clavicle, scapula, humerus, forearm, wrist, hand, or fingers. Neurovascular: Motor function grossly intact over the axillary, radial, median, ulnar, and anterior interosseous nerve. Sensation intact to light touch over the left upper extremity. Capillary refill brisk under 2 seconds. Left hip exam: Inspection: No sign of obvious deformity. The calf was not swollen. Palpation: Patient tender over the lateral left hip. No tenderness to palpation over the left calf. Neurovascular: Patient can plantarflex and dorsiflex without pain. Negative Homans sign. Dorsalis pedis pulse and posterior tibial pulse 2+. Patient is status post amputation of all toes on left lower extremity. - Labs CBC & Chem 7: 06/01/24 03:47 06/01/24 03:47 Labs: Abnormal Lab Results - Last 24 Hours (Table) 05/30/24 05/30/24 05/30/24 Range/Units 11:43 17:11 20:24 POC Glucose (mg/dL) 411 H 532 H* 488 H (70-110) mg/dL 05/31/24 Range/Units 06:02 POC Glucose (mg/dL) 311 H (70-110) mg/dL Assessment and Plan 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 Plan: Conservative management for the left shoulder pain and left greater trochanter fracture. Continue toe-touch weightbearing with walker of the left lower extremity. Continue pain control. Patient worked with physical therapy. Patient states she has a and son that live at home, and if possible patient would like to be discharged to home at time of discharge. Patient continues to experience expected amount of left hip pain. We will plan to keep tonight for pain management and reassess tomorrow. Patient was prescribed aspirin 81 mg twice daily for DVT prophylaxis. Patient will follow-up with Dr. Willian Carrero at [facility] Dictation was produced using [employer] dictation software, please excuse any grammatical, word or spelling errors. I agree with the above interval history, exam and plan. Willian Carrero MD
[2024-05-31 09:54] LABS: Blood Urea Nitrogen 11.8 mg/dL (9.0-27.0); Calcium 8.2 mg/dL (8.7-10.3); Carbon Dioxide 25.3 mmol/L (21.6-31.8); Chloride 99 mmol/L (96-109); Glucose 280 mg/dL (70-110); Potassium 4.1 mmol/L (3.5-5.5); Sodium 134 mmol/L (135-145)
[2024-05-31 11:12] LABS: Glucose,Whole Blood 340 mg/dL (70-110)
[2024-05-31 16:32] LABS: Glucose,Whole Blood 337 mg/dL (70-110)
[2024-05-31 19:59] LABS: Glucose,Whole Blood 386 mg/dL (70-110)
--- NOTE | 2024-05-31 21:52 | P.CONS ---
History of Present Illness - Reason for Consult Consult date: 05/30/24 Medical management - Chief Complaint Fall/hyperglycemia - History of Present Illness 63-year-old female who presents emergency department reporting left shoulder and left hip pain. Patient states that she has significant neuropathy in her lower extremities and has had previous amputations of her foot and toes. She does have difficulty with ambulation. States that she lost her balance yesterday and fell onto her left hip. She also complains of pain in the left shoulder. She denies hitting her head. No neck or back pain. States that she has had difficulty ambulating on the left hip. She denies any abdominal pain. No chest pain or difficulty breathing. No other alleviating, precipitating modifying factors Blood work completed in ED reveals a WBC of 8.7, hemoglobin of 13.3 and platelet count of 183, sodium 133, potassium 4.2, BUN/creatinine of 13/0.50, blood glucose of 338 Left hip x-ray reveals subtle lucency in the superior aspect of greater trochanter of the proximal left femur. Questionable nondisplaced fracture CT of the hip reveals nondisplaced oblique fracture through the superior corner of the left greater trochanter Review of Systems REVIEW OF SYSTEMS: CONSTITUTIONAL: No fever, no malaise, no fatigue. HEENT: No recent visual problems or hearing problems. Denied any sore throat. CARDIOVASCULAR: No chest pain, orthopnea, PND, no palpitations, no syncope. PULMONARY: No shortness of breath, no cough, no hemoptysis. GASTROINTESTINAL: No diarrhea, no nausea, no vomiting, no abdominal pain. NEUROLOGICAL: No headaches, no weakness, no numbness. HEMATOLOGICAL: Denies any bleeding or petechiae. GENITOURINARY: Denies any burning micturition, frequency, or urgency. MUSCULOSKELETAL/RHEUMATOLOGICAL: Denies any joint pain, swelling, or any muscle pain. ENDOCRINE: Denies any polyuria or polydipsia. The rest of the 14-point review of systems is negative. 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 , unsteady gait., see Cardiology [facility] INPT FOR LT FOOT ULCER-WAS SEEN IN WOUND CARE 03/26/23-HAS DRESSING ON FOOT Last Myocardial Infarction Date:: february 2017 History of Any Multi-Drug Resistant Organisms: None Reported Past Surgical History: Back Surgery, Cholecystectomy, Heart Catheterization With Stent, Orthopedic Surgery Additional Past Surgical History / Comment(s): Right 5th toe amputation, lumbar fusion, spinal cord stimulator in place but not working., left knee arthroscopy, EGD, PATRICIA, 3 cardiac stents, Aortoram, stent to left iliac artery. , stent right leg above the knee, right 4th toe amputation. ANGIOGRAM,m 04/11/23 left toes amputation. Past Anesthesia/Blood Transfusion Reactions: No Reported Reaction Additional Past Anesthesia/Blood Transfusion Reaction / Comm: . Date of Last Stent Placement:: 12/14/2021 Past Psychological History: Anxiety Additional Psychological History / Comment(s): . Smoking Status: Current every day smoker Past Alcohol Use History: None Reported Additional Past Alcohol Use History / Comment(s): Patient has smoked one pack a day for 40 years, patient states she is cutting down and planning to quit. Past Drug Use History: None Reported - Past Family History Father Family Medical History: Cancer, Liver Disease Additional Family Medical History / Comment(s): Idiopathic cirrhosis of liver, Liver Cancer. Mother Family Medical History: Coronary Artery Disease (CAD), Myocardial Infarction ( [place]) Additional Family Medical History / Comment(s): Multiple stents. Mother at the age of 77 or 78 from [place]. Medications and Allergies Home Medications Medication Instructions Recorded Confirmed Type Atorvastatin [Lipitor] 80 mg PO HS 06/26/16 05/30/24 History Clopidogrel [Plavix] 75 mg PO DAILY 30 Days #30 tab 01/05/21 05/30/24 Rx DULoxetine HCL [Cymbalta] 60 mg PO HS 05/30/24 05/30/24 History Fenofibrate [Lofibra] 160 mg PO DAILY 05/30/24 05/30/24 History Gabapentin [Neurontin] 100 mg PO HS 05/30/24 05/30/24 History HYDROcodone/APAP 5-325MG [[place] 1 tab PO BID PRN 05/30/24 05/30/24 History 5-325] INSULIN LISPRO (humaLOG) [humaLOG] See Protocol SQ ACHS 05/30/24 05/30/24 History Nitrofurantoin Monohyd/M-Cryst 100 mg PO Q12H 05/30/24 05/30/24 History [Nitrofurantoin Monohyd/M-Cryst 100 mg] cilostazoL [Pletal] 50 mg PO BID 05/30/24 05/30/24 History lisinopriL [Zestril] 20 mg PO DAILY 05/30/24 05/30/24 History Aspirin 81 mg PO BID #60 tab 05/31/24 Rx Allergies Allergy/AdvReac Type Severity Reaction Status Date / Time gluten AdvReac Nausea & Verified 05/30/24 07:34 Vomiting & Diarrhea, bloating Physical Exam Vitals: Vital Signs Temp Pulse Pulse Resp BP BP Pulse Ox 05/30/24 07:31 98.2 F 82 16 107/67 93 L 05/30/24 06:05 99.1 F 81 18 116/73 93 L 05/30/24 05:11 98.6 F 78 15 134/81 95 05/30/24 02:00 80 15 91/66 96 05/29/24 23:55 87 17 125/72 97 05/29/24 20:45 98.3 F 92 17 125/83 99 Intake and Output 05/29/24 05/30/24 05/30/24 22:59 06:59 14:59 Intake Total 10 Balance 10 Intake: IV 10 Invasive Line 2 10 Other: Weight 65.317 kg 65.317 kg - Constitutional General appearance: Present: average body habitus, cooperative, no acute dis tress - EENT Eyes: Present: anicteric sclerae, EOMI, PERRLA, normal appearance ENT: Present: hearing grossly normal, normal oropharynx Ears: bilateral: normal - Neck Neck: Present: normal ROM. Absent: lymphadenopathy, rigidity, thyromegaly Carotids: negative: bruit present Thyroid: bilateral: normal size, negative: enlarged, nodule - Respiratory Respiratory: bilateral: CTA, negative: rales, rhonchi, wheezing - Cardiovascular Rhythm: regular Heart sounds: normal: S1, S2 Abnormal Heart Sounds: Absent: systolic murmur, diastolic murmur - Gastrointestinal General gastrointestinal: Present: normal bowel sounds, soft. Absent: distended, organomegaly, tenderness - Genitourinary Genitourinary Comment(s): deferred - Integumentary Integumentary: Present: normal turgor. Absent: jaundiced, rash, ulcer - Neurologic Neurologic: Present: CNII-XII intact. Absent: focal deficits - Musculoskeletal Musculoskeletal: Present: gait normal, strength equal bilaterally - Psychiatric Psychiatric: Present: A&O x's 3, appropriate affect, intact judgment & insight Results CBC & Chem 7: 05/30/24 05:07 05/31/24 04:19 Labs: Abnormal Lab Results - Last 24 Hours (Table) 05/30/24 05/30/24 05/30/24 Range/Units 05:07 05:07 05:07 Hct 37.1 L (37.2-46.3) % APTT 20.6 L (22.0-30.0) sec Sodium 133 L (137-145) mmol/L Creatinine 0.50 L (0.52-1.04) mg/dL Glucose 338 H (74-99) mg/dL POC Glucose (mg/dL) (70-110) mg/dL 05/30/24 Range/Units 11:43 Hct (37.2-46.3) % APTT (22.0-30.0) sec Sodium (137-145) mmol/L Creatinine (0.52-1.04) mg/dL Glucose (74-99) mg/dL POC Glucose (mg/dL) 411 H (70-110) mg/dL Assessment and Plan Assessment: 1. Fall/left greater trochanteric fracture 2. Mild hyponatremia 3. Hyperglycemia/diabetes mellitus with long-term insulin use; patient uses Humalog per protocol; will add Lantus 20 units SQ nightly; monitor Accu-Cheks before every meal and at bedtime with insulin sliding scale 4. Hypertension; lisinopril 20 mg daily 5. Hyperlipidemia; fenofibrate 160 mg daily; Lipitor 80 mg daily 6. Peripheral vascular occlusive disease; patient is status post amputation right 4th and 5th toe - Continue with Plavix and Pletal; continue with Lipitor 7. Diabetic neuropathy; Neurontin 100 mg p.o. nightly 8. Chronic back pain; patient takes Cymbalta and [place]
--- NOTE | 2024-05-31 21:53 | P.PN ---
Subjective Progress Note Date: 05/31/24 63-year-old female who presents emergency department reporting left shoulder and left hip pain. Patient states that she has significant neuropathy in her lower extremities and has had previous amputations of her foot and toes. She does have difficulty with ambulation. States that she lost her balance yesterday and fell onto her left hip. She also complains of pain in the left shoulder. She denies hitting her head. No neck or back pain. States that she has had difficulty ambulating on the left hip. She denies any abdominal pain. No chest pain or difficulty breathing. No other alleviating, precipitating modifying factors Blood work completed in ED reveals a WBC of 8.7, hemoglobin of 13.3 and platelet count of 183, sodium 133, potassium 4.2, BUN/creatinine of 13/0.50, blood glucose of 338 Left hip x-ray reveals subtle lucency in the superior aspect of greater trochanter of the proximal left femur. Questionable nondisplaced fracture CT of the hip reveals nondisplaced oblique fracture through the superior corner of the left greater trochanter Objective - Vital Signs Vital signs: Vital Signs Temp 98.2 F 05/31/24 07:21 Pulse 79 05/31/24 07:21 Resp 16 05/31/24 07:21 BP 110/62 05/31/24 07:21 Pulse Ox 93 L 05/31/24 07:21 FiO2 Intake & Output 05/30/24 05/31/24 05/31/24 18:59 06:59 18:59 Intake Total 10 Output Total 400 Balance 10 -400 Intake: IV 10 Invasive Line 2 10 Output: Urine 400 Other: Voiding Method Toilet External Catheter External Catheter # Voids 3 - Exam - Constitutional General appearance: Present: average body habitus, cooperative, no acute distress - EENT Eyes: Present: anicteric sclerae, EOMI, PERRLA, normal appearance ENT: Present: hearing grossly normal, normal oropharynx Ears: bilateral: normal - Neck Neck: Present: normal ROM. Absent: lymphadenopathy, rigidity, thyromegaly Carotids: negative: bruit present Thyroid: bilateral: normal size, negative: enlarged, nodule - Respiratory Respiratory: bilateral: CTA, negative: rales, rhonchi, wheezing - Cardiovascular Rhythm: regular Heart sounds: normal: S1, S2 Abnormal Heart Sounds: Absent: systolic murmur, diastolic murmur - Gastrointestinal General gastrointestinal: Present: normal bowel sounds, soft. Absent: distended, organomegaly, tenderness - Genitourinary Genitourinary Comment(s): deferred - Integumentary Integumentary: Present: normal turgor. Absent: jaundiced, rash, ulcer - Neurologic Neurologic: Present: CNII-XII intact. Absent: focal deficits - Musculoskeletal Musculoskeletal: Present: gait normal, strength equal bilaterally - Psychiatric Psychiatric: Present: A&O x's 3, appropriate affect, intact judgment & insight - Labs CBC & Chem 7: 05/30/24 05:07 05/31/24 04:19 Labs: Abnormal Lab Results - Last 24 Hours (Table) 05/30/24 05/30/24 05/31/24 Range/Units 17:11 20:24 04:19 Sodium (135-145) mmol/L Creatinine (0.6-1.5) mg/dL BUN/Creatinine Ratio (12.00-20.00) Ratio Glucose (70-110) mg/dL POC Glucose (mg/dL) 532 H* 488 H (70-110) mg/dL Hemoglobin A1c 10.1 H (<=6.0) % Calcium (8.7-10.3) mg/dL 05/31/24 05/31/24 05/31/24 Range/Units 04:19 06:02 11:11 Sodium 134 L (135-145) mmol/L Creatinine 0.5 L (0.6-1.5) mg/dL BUN/Creatinine Ratio 23.60 H (12.00-20.00) Ratio Glucose 280 H (70-110) mg/dL POC Glucose (mg/dL) 311 H 340 H (70-110) mg/dL Hemoglobin A1c (<=6.0) % Calcium 8.2 L (8.7-10.3) mg/dL Assessment and Plan Assessment: 1. Fall/left greater trochanteric fracture 2. Mild hyponatremia 3. Hyperglycemia/diabetes mellitus with long-term insulin use; patient uses Humalog per protocol; will add Lantus 20 units SQ nightly; monitor Accu-Cheks before every meal and at bedtime with insulin sliding scale 4. Hypertension; lisinopril 20 mg daily 5. Hyperlipidemia; fenofibrate 160 mg daily; Lipitor 80 mg daily 6. Peripheral vascular occlusive disease; patient is status post amputation right 4th and 5th toe - Continue with Plavix and Pletal; continue with Lipitor 7. Diabetic neuropathy; Neurontin 100 mg p.o. nightly 8. Chronic back pain; patient takes Cymbalta and [place]
[2024-06-01 05:59] LABS: Glucose,Whole Blood 307 mg/dL (70-110)
[2024-06-01] MEDS: ONDANSETRON 4 MG/2 ML VIAL IVP PRN (07:00)
[2024-06-01] MEDS: INSULIN LISPRO (HumaLOG) 100 UNIT/ML 10 mL VL SQ SCH (07:33)
[2024-06-01 09:35] LABS: BUN/Creat Ratio 22.17 Ratio (12.00-20.00); Blood Urea Nitrogen 13.3 mg/dL (9.0-27.0); Calcium 8.2 mg/dL (8.7-10.3); Carbon Dioxide 25.2 mmol/L (21.6-31.8); Chloride 98 mmol/L (96-109); Glucose 284 mg/dL (70-110); Potassium 3.8 mmol/L (3.5-5.5); Sodium 132 mmol/L (135-145)
--- NOTE | 2024-06-01 09:47 | P.PN ---
Subjective Progress Note Date: 06/01/24 No acute events overnight. Patient states they are doing relatively well this morning. Patient states that the majority of her pain is isolated to the left hip. They state their left shoulder continues to be sore. Patient states they have some paresthesia in their left digits that they are not sure how long it has been there. They deny any weakness of the left upper extremity. Patient states she has been maintaining touchdown weightbearing of the left lower extremity with walker. Objective - Vital Signs Vital signs: Vital Signs Temp 97.5 F L 06/01/24 07:35 Pulse 82 06/01/24 09:33 Resp 15 06/01/24 07:35 BP 109/73 06/01/24 09:33 Pulse Ox 96 06/01/24 07:35 FiO2 Intake & Output 05/31/24 06/01/24 06/01/24 18:59 06:59 18:59 Output Total 800 700 Balance -800 -700 Output: Urine 800 700 Other: Voiding Method External Catheter External Catheter External Catheter - Exam Patient was resting comfortably in bed. Patient was in no acute distress. Patient was awake, alert, and able to answer questions. Left shoulder exam: Inspection: Left shoulder with no obvious deformity. No ecchymosis, open lesions, or overlying erythema. Palpation: Mild tenderness to anterior shoulder. No tenderness to palpation over the left clavicle, scapula, forearm, wrist, hand, or fingers. Neurovascular: Motor function grossly intact over the axillary, radial, median, ulnar, and anterior interosseous nerve. Sensation intact to light touch over the left upper extremity and all 5 digits. Capillary refill brisk under 2 seconds. Left hip exam: Inspection: No sign of obvious deformity. The calf was not swollen. Palpation: Patient tender over the lateral left hip. No tenderness to palpation over the left calf. Range of motion: Patient has painful logroll. Patient has pain with passive range of motion of the hip. Neurovascular: Patient can plantarflex and dorsiflex without pain. Negative Homans sign. Dorsalis pedis pulse and posterior tibial pulse 2+. Patient is status post amputation of all toes on left lower extremity. - Labs CBC & Chem 7: 06/01/24 03:47 06/01/24 03:47 Labs: Abnormal Lab Results - Last 24 Hours (Table) 05/31/24 05/31/24 05/31/24 Range/Units 04:19 11:11 16:31 Sodium 134 L (135-145) mmol/L Creatinine 0.5 L (0.6-1.5) mg/dL BUN/Creatinine Ratio 23.60 H (12.00-20.00) Ratio Glucose 280 H (70-110) mg/dL POC Glucose (mg/dL) 340 H 337 H (70-110) mg/dL Calcium 8.2 L (8.7-10.3) mg/dL 05/31/24 06/01/24 06/01/24 Range/Units 19:57 03:47 05:57 Sodium 132 L (135-145) mmol/L Creatinine (0.6-1.5) mg/dL BUN/Creatinine Ratio 22.17 H (12.00-20.00) Ratio Glucose 284 H (70-110) mg/dL POC Glucose (mg/dL) 386 H 307 H (70-110) mg/dL Calcium 8.2 L (8.7-10.3) mg/dL Assessment and Plan 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 Plan: Continue conservative management for the left shoulder pain and left greater trochanter fracture. Continue toe-touch weightbearing with walker of the left lower extremity. Continue pain control. Patient had some nausea with morphine. Discussed will trial oral [place]. Patient worked with physical therapy and had difficulty transferring. Recommended reevaluation by PT tomorrow morning. Patient states she has a and son that live at home, and if possible patient would like to be discharged to home at time of discharge. Patient continues to experience expected amount of left hip pain for left greater trochanter fracture. We will plan to keep tonight for pain management and reassess tomorrow. Patient was prescribed aspirin 81 mg twice daily for DVT prophylaxis. Patient is also on Plavix. Patient will follow-up with Dr. Willian Carrero at [facility] Dictation was produced using [employer] dictation software, please excuse any grammatical, word or spelling errors. I agree with the above interval history, exam and plan. Willian Carrero MD
[2024-06-01 10:02] LABS: Basophils # (A) 0.04 X 10*3/uL (0.00-0.10); Basophils % (A) 0.5 %; Eosinophils # (A) 0.21 X 10*3/uL (0.04-0.35); Eosinophils % (A) 2.9 %; HCT 33.6 % (37.2-46.3); HGB 11.4 g/dL (12.0-15.0); Lymphocytes # (A) 1.57 X 10*3/uL (0.90-5.00); Lymphocytes % (A) 21.4 %; MCH 29.8 pg (27.0-32.0); MCHC 33.9 g/dL (32.0-37.0); Mean Platelet Volume 10.7 FL (9.5-12.2); Monocytes # (A) 0.51 X 10*3/uL (0.20-1.00); NRBC Per 100 WBC 0 X 10*3/uL (0.00-0.01); Neutrophils # (A) 4.98 X 10*3/uL (1.80-7.70); Neutrophils % (A) 67.9 %; Platelet Count 193 X 10*3/uL (140-440); RBC 3.82 X 10*6/uL (4.10-5.20); WBC 7.33 X 10*3/uL (4.50-10.00)
[2024-06-01 11:15] LABS: Glucose,Whole Blood 317 mg/dL (70-110)
[2024-06-01 16:12] LABS: Glucose,Whole Blood 141 mg/dL (70-110)
--- NOTE | 2024-06-01 16:31 | P.PN ---
Subjective Progress Note Date: 06/01/24 63-year-old female who presents emergency department reporting left shoulder and left hip pain. Patient states that she has significant neuropathy in her lower extremities and has had previous amputations of her foot and toes. She does have difficulty with ambulation. States that she lost her balance yesterday and fell onto her left hip. She also complains of pain in the left shoulder. She denies hitting her head. No neck or back pain. States that she has had difficulty ambulating on the left hip. She denies any abdominal pain. No chest pain or difficulty breathing. No other alleviating, precipitating modifying factors Blood work completed in ED reveals a WBC of 8.7, hemoglobin of 13.3 and platelet count of 183, sodium 133, potassium 4.2, BUN/creatinine of 13/0.50, blood glucose of 338 Left hip x-ray reveals subtle lucency in the superior aspect of greater trochanter of the proximal left femur. Questionable nondisplaced fracture CT of the hip reveals nondisplaced oblique fracture through the superior corner of the left greater trochanter 06/01/2024 Patient is seen and evaluated sitting up in bed eating lunch; reports some improvement in pain however reports she has not been able to get out of bed Vital signs reviewed and stable temperature 97.5, pulse 82, respiration 15 and blood pressure 109/73, O2 saturation 96% Sodium 132, potassium 3.8, BUN/creatinine 13.3/0.6 and blood glucose of 280 Continue conservative management for the left shoulder pain and left greater trochanter fracture. Continue toe-touch weightbearing with walker of the left lower extremity. Continue pain control. Objective - Vital Signs Vital signs: Vital Signs Temp 97.5 F L 06/01/24 07:35 Pulse 82 06/01/24 09:33 Resp 15 06/01/24 07:35 BP 109/73 06/01/24 09:33 Pulse Ox 96 06/01/24 07:35 FiO2 Intake & Output 05/31/24 06/01/24 06/01/24 18:59 06:59 18:59 Output Total 800 700 Balance -800 -700 Output: Urine 800 700 Other: Voiding Method External Catheter External Catheter External Catheter - Exam - Constitutional General appearance: Present: average body habitus, cooperative, no acute distress - EENT Eyes: Present: anicteric sclerae, EOMI, PERRLA, normal appearance ENT: Present: hearing grossly normal, normal oropharynx Ears: bilateral: normal - Neck Neck: Present: normal ROM. Absent: lymphadenopathy, rigidity, thyromegaly Carotids: negative: bruit present Thyroid: bilateral: normal size, negative: enlarged, nodule - Respiratory Respiratory: bilateral: CTA, negative: rales, rhonchi, wheezing - Cardiovascular Rhythm: regular Heart sounds: normal: S1, S2 Abnormal Heart Sounds: Absent: systolic murmur, diastolic murmur - Gastrointestinal General gastrointestinal: Present: normal bowel sounds, soft. Absent: distended, organomegaly, tenderness - Genitourinary Genitourinary Comment(s): deferred - Integumentary Integumentary: Present: normal turgor. Absent: jaundiced, rash, ulcer - Neurologic Neurologic: Present: CNII-XII intact. Absent: focal deficits - Musculoskeletal Musculoskeletal: Present: gait normal, strength equal bilaterally - Psychiatric Psychiatric: Present: A&O x's 3, appropriate affect, intact judgment & insight - Labs CBC & Chem 7: 06/01/24 03:47 06/01/24 03:47 Labs: Abnormal Lab Results - Last 24 Hours (Table) 05/31/24 05/31/24 05/31/24 Range/Units 11:11 16:31 19:57 RBC (4.10-5.20) X 10*6/uL Hgb (12.0-15.0) g/dL Hct (37.2-46.3) % Sodium (135-145) mmol/L BUN/Creatinine Ratio (12.00-20.00) Ratio Glucose (70-110) mg/dL POC Glucose (mg/dL) 340 H 337 H 386 H (70-110) mg/dL Calcium (8.7-10.3) mg/dL 06/01/24 06/01/24 06/01/24 Range/Units 03:47 03:47 05:57 RBC 3.82 L (4.10-5.20) X 10*6/uL Hgb 11.4 L (12.0-15.0) g/dL Hct 33.6 L (37.2-46.3) % Sodium 132 L (135-145) mmol/L BUN/Creatinine Ratio 22.17 H (12.00-20.00) Ratio Glucose 284 H (70-110) mg/dL POC Glucose (mg/dL) 307 H (70-110) mg/dL Calcium 8.2 L (8.7-10.3) mg/dL Assessment and Plan Assessment: 1. Fall/left greater trochanteric fracture 2. Mild hyponatremia 3. Hyperglycemia/diabetes mellitus with long-term insulin use; patient uses Humalog per protocol; will add Lantus 20 units SQ nightly; monitor Accu-Cheks before every meal and at bedtime with insulin sliding scale 4. Hypertension; lisinopril 20 mg daily 5. Hyperlipidemia; fenofibrate 160 mg daily; Lipitor 80 mg daily 6. Peripheral vascular occlusive disease; patient is status post amputation right 4th and 5th toe - Continue with Plavix and Pletal; continue with Lipitor 7. Diabetic neuropathy; Neurontin 100 mg p.o. nightly 8. Chronic back pain; patient takes Cymbalta and [place]
[2024-06-01] MEDS: HYDROcodone/APAP 10-325MG 1 EACH TAB PO PRN (17:33)
[2024-06-01 20:03] LABS: Glucose,Whole Blood 276 mg/dL (70-110)
[2024-06-01] MEDS: INSULIN GLARGINE (LANTUS) 100 UNIT/ML SYR SQ SCH (21:43)
[2024-06-02 06:18] LABS: Glucose,Whole Blood 278 mg/dL (70-110)
--- NOTE | 2024-06-02 08:03 | P.PN ---
Subjective Progress Note Date: 06/02/24 No acute events overnight. Patient states they are doing relatively well this morning. Her left hip continues to be painful and she is taking IV and oral pain medication. They state their left shoulder continues to be sore. Patient states she has been maintaining touchdown weightbearing of the left lower extremity with walker. Objective - Vital Signs Vital signs: Vital Signs Temp 98.3 F 06/02/24 06:57 Pulse 72 06/02/24 06:57 Resp 18 06/02/24 06:57 BP 105/67 06/02/24 06:57 Pulse Ox 97 06/02/24 06:57 FiO2 Intake & Output 06/01/24 06/02/24 06/02/24 18:59 06:59 18:59 Intake Total 1200 Output Total 200 700 Balance -200 500 Intake: Oral 1200 Output: Urine 200 700 Other: Voiding Method External Catheter External Catheter - Exam Patient was resting comfortably in bed. Patient was in no acute distress. Patient was awake, alert, and able to answer questions. Left shoulder exam: Inspection: Left shoulder with no obvious deformity. No ecchymosis, open lesions, or overlying erythema. Palpation: Mild tenderness to anterior shoulder. No tenderness to palpation over the left clavicle, scapula, forearm, wrist, hand, or fingers. Neurovascular: Motor function grossly intact over the axillary, radial, median, ulnar, and anterior interosseous nerve. Sensation intact to light touch over the left upper extremity and all 5 digits. Capillary refill brisk under 2 seconds. Left hip exam: Inspection: No sign of obvious deformity. The calf was not swollen. Palpation: Patient tender over the lateral left hip. No tenderness to palpation over the left calf. Range of motion: Patient has painful logroll. Patient has pain with passive range of motion of the hip. Neurovascular: Patient can plantarflex and dorsiflex without pain. Negative Homans sign. Dorsalis pedis pulse and posterior tibial pulse 2+. Patient is status post amputation of all toes on left lower extremity. - Labs CBC & Chem 7: 06/01/24 03:47 06/01/24 03:47 Labs: Abnormal Lab Results - Last 24 Hours (Table) 06/01/24 06/01/24 06/01/24 Range/Units 03:47 03:47 11:14 RBC 3.82 L (4.10-5.20) X 10*6/uL Hgb 11.4 L (12.0-15.0) g/dL Hct 33.6 L (37.2-46.3) % Sodium 132 L (135-145) mmol/L BUN/Creatinine Ratio 22.17 H (12.00-20.00) Ratio Glucose 284 H (70-110) mg/dL POC Glucose (mg/dL) 317 H (70-110) mg/dL Calcium 8.2 L (8.7-10.3) mg/dL 06/01/24 06/01/24 06/02/24 Range/Units 16:11 20:02 06:17 RBC (4.10-5.20) X 10*6/uL Hgb (12.0-15.0) g/dL Hct (37.2-46.3) % Sodium (135-145) mmol/L BUN/Creatinine Ratio (12.00-20.00) Ratio Glucose (70-110) mg/dL POC Glucose (mg/dL) 141 H 276 H 278 H (70-110) mg/dL Calcium (8.7-10.3) mg/dL Assessment and Plan 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 Plan: Continue conservative management for the left shoulder pain and left greater trochanter fracture. Continue toe-touch weightbearing with walker of the left lower extremity. Patient request a walker, paper prescription for walker placed in patient's chart 06/02/2024. Continue pain control. Patient worked with physical therapy and had difficulty transferring. Will have PT reevaluate this morning. Patient states she has a and son that live at home, and would like to be discharged to home at time of discharge. Patient continues to experience expected amount of left hip pain for left greater trochanter fracture. Patient was prescribed aspirin 81 mg twice daily for DVT prophylaxis. Patient is also on Plavix. Patient will follow-up with Dr. Willian Carrero at [facility] Dispo:We will plan to keep tonight for pain management and reassess tomorrow. If patient passes physical therapy we will plan to discharge home tomorrow if pain is controlled. Dictation was produced using [employer] software, please excuse any gr ammatical, word or spelling errors. I agree with the above interval history, exam and plan. Willian Carrero MD
[2024-06-02 11:14] LABS: Glucose,Whole Blood 139 mg/dL (70-110)
[2024-06-02 16:40] VITALS: BMI 21.9
[2024-06-02 16:50] LABS: Glucose,Whole Blood 241 mg/dL (70-110)
[2024-06-02 20:58] LABS: Glucose,Whole Blood 170 mg/dL (70-110)
--- NOTE | 2024-06-02 21:34 | P.PN ---
Subjective Progress Note Date: 06/02/24 63-year-old female who presents emergency department reporting left shoulder and left hip pain. Patient states that she has significant neuropathy in her lower extremities and has had previous amputations of her foot and toes. She does have difficulty with ambulation. States that she lost her balance yesterday and fell onto her left hip. She also complains of pain in the left shoulder. She denies hitting her head. No neck or back pain. States that she has had difficulty ambulating on the left hip. She denies any abdominal pain. No chest pain or difficulty breathing. No other alleviating, precipitating modifying factors Blood work completed in ED reveals a WBC of 8.7, hemoglobin of 13.3 and platelet count of 183, sodium 133, potassium 4.2, BUN/creatinine of 13/0.50, blood glucose of 338 Left hip x-ray reveals subtle lucency in the superior aspect of greater trochanter of the proximal left femur. Questionable nondisplaced fracture CT of the hip reveals nondisplaced oblique fracture through the superior corner of the left greater trochanter 06/01/2024 Patient is seen and evaluated sitting up in bed eating lunch; reports some improvement in pain however reports she has not been able to get out of bed Vital signs reviewed and stable temperature 97.5, pulse 82, respiration 15 and blood pressure 109/73, O2 saturation 96% Sodium 132, potassium 3.8, BUN/creatinine 13.3/0.6 and blood glucose of 280 Continue conservative management for the left shoulder pain and left greater trochanter fracture. Continue toe-touch weightbearing with walker of the left lower extremity. Continue pain control. 06/02/2024 Patient is seen in follow-up today Review of systems: Constitutional: No reports of fatigue, fever, or chills Cardiovascular: No reports of chest pain or palpitations Respiratory: No reports of shortness of breath or cough GI: No reports of nausea, vomiting, or diarrhea : No reports of dysuria or retention Neurovascular: No reports of weakness or numbness All medications have been reviewed Physical exam: Gen: This is a [ ] HEENT: Head is atraumatic, normocephalic. Pupils equal, round. Sclerae is anicteric. NECK: Supple. No JVD. No lymphadenopathy. No thyromegaly. LUNGS: Clear to auscultation. No wheezes or rhonchi. No intercostal re tractions. HEART: Regular rate and rhythm. No murmur. ABDOMEN: Soft. Bowel sounds are present. No masses. No tenderness. EXTREMITIES: No pedal edema. No calf tenderness. NEUROLOGICAL: Patient is awake, alert and oriented x3. Cranial nerves 2 through 12 are grossly intact. Assessment: -Mechanical fall/left greater trochanteric fracture, continue with conservative management per orthopedics -Mild hyponatremia, improving -Diabetes mellitus, insulin-dependent, uncontrolled with hyperglycemia- -Hypertension -Hyperlipidemia -Peripheral vascular occlusive disease; patient is status post amputation right 4th and 5th toe -Diabetic neuropathy - History of chronic back pain - GI prophylaxis - DVT prophylaxis - Full code Plan: Patient is admitted under orthopedics status post fall with greater trochanteric fracture along with upper shoulder pain. Fracture is nondisplaced and orthop edics has evaluated recommending conservative management at this time and close outpatient follow-up Patient evaluated by physical therapy doing okay and reports has support at the home with her son and who live there Continue pain management per orthopedics and recommend limiting IV narcotics use Encouraged increase activity as tolerated with restrictions per orthopedics Patient be reevaluated by physical therapy and if pain is controlled with orthopedics considering discharge planning in the next 24 hours Patient is medically stable once cleared by orthopedics recommend close outpati ent follow-up with primary care provider as well We will continue to follow with orthopedics during hospitalization. Thank you kindly for this consultation. The impression and plan of care has been dictated by Consuelo Combs, Nurse Practitioner as directed. Dr. Joe MD I have performed a history and examination and MDM of this patient, discussed the same with the dictator, and agree with the dictator's assessment and plan as written ,documented as a scribe. Based on total visit time, I have performed more than 50% of the visit. Objective - Vital Signs Vital signs: Vital Signs Temp 98.3 F 06/02/24 06:57 Pulse 72 06/02/24 07:45 Resp 18 06/02/24 07:45 BP 105/67 06/02/24 06:57 Pulse Ox 97 06/02/24 06:57 FiO2 Intake & Output 06/01/24 06/02/24 06/02/24 18:59 06:59 18:59 Intake Total 1200 Output Total 200 700 Balance -200 500 Intake: Oral 1200 Output: Urine 200 700 Other: Voiding Method External Catheter External Catheter External Catheter - Labs CBC & Chem 7: 06/01/24 03:47 06/01/24 03:47 Labs: Abnormal Lab Results - Last 24 Hours (Table) 06/01/24 06/01/24 06/01/24 Range/Units 11:14 16:11 20:02 POC Glucose (mg/dL) 317 H 141 H 276 H (70-110) mg/dL 06/02/24 Range/Units 06:17 POC Glucose (mg/dL) 278 H (70-110) mg/dL
[2024-06-02 22:21] LABS: Glucose,Whole Blood 203 mg/dL (70-110)
[2024-06-02] MEDS: INSULIN GLARGINE (LANTUS) 100 UNIT/ML SYR SQ SCH (22:24)
[2024-06-02] MEDS: MELATONIN 5 MG TABLET PO PRN (22:56)
[2024-06-03 06:34] LABS: Glucose,Whole Blood 394 mg/dL (70-110)
[2024-06-03 10:58] LABS: Glucose,Whole Blood 196 mg/dL (70-110)
[2024-06-03 16:50] LABS: Glucose,Whole Blood 245 mg/dL (70-110)
[2024-06-03 20:43] LABS: Glucose,Whole Blood 279 mg/dL (70-110)
--- NOTE | 2024-06-04 05:27 | P.PN ---
Subjective Progress Note Date: 06/03/24 63-year-old female who presents emergency department reporting left shoulder and left hip pain. Patient states that she has significant neuropathy in her lower extremities and has had previous amputations of her foot and toes. She does have difficulty with ambulation. States that she lost her balance yesterday and fell onto her left hip. She also complains of pain in the left shoulder. She denies hitting her head. No neck or back pain. States that she has had difficulty ambulating on the left hip. She denies any abdominal pain. No chest pain or difficulty breathing. No other alleviating, precipitating modifying factors Blood work completed in ED reveals a WBC of 8.7, hemoglobin of 13.3 and platelet count of 183, sodium 133, potassium 4.2, BUN/creatinine of 13/0.50, blood glucose of 338 Left hip x-ray reveals subtle lucency in the superior aspect of greater trochanter of the proximal left femur. Questionable nondisplaced fracture CT of the hip reveals nondisplaced oblique fracture through the superior corner of the left greater trochanter 06/01/2024 Patient is seen and evaluated sitting up in bed eating lunch; reports some improvement in pain however reports she has not been able to get out of bed Vital signs reviewed and stable temperature 97.5, pulse 82, respiration 15 and blood pressure 109/73, O2 saturation 96% Sodium 132, potassium 3.8, BUN/creatinine 13.3/0.6 and blood glucose of 280 Continue conservative management for the left shoulder pain and left greater trochanter fracture. Continue toe-touch weightbearing with walker of the left lower extremity. Continue pain control. 06/03/2024 Patient is seen in follow-up today with orthopedics as attending and patient is adamant she [facility] Wheelchair being ordered by case management as patient does have support at the home that can propel her to continue with ADLs. Patient continues to report significant pain and weakness has been working with physical therapy. Patient noted to have a right heel hematoma/deep tissue injury and will continue with offloading of that area with Optifoam. Skin is dry and intact. Patient is afebrile with no reported chest pain or shortness of breath. Patient has been tolerating diet and denies nausea or vomiting. Review of systems: Constitutional: No reports of fatigue, fever, or chills Cardiovascular: No reports of chest pain or palpitations Respiratory: No reports of shortness of breath or cough GI: No reports of nausea, vomiting, or diarrhea : No reports of dysuria or retention Neurovascular: reports of generalized weakness and right hip pain All medications have been reviewed Physical exam: Gen: This is a 63-year-old female who is awake, alert and oriented x 3, well- developed, elderly appearing, thin built HEENT: Head is atraumatic, normocephalic. Pupils equal, round. Sclerae is anicteric. NECK: Supple. No JVD. No lymphadenopathy. No thyromegaly. LUNGS: Clear to auscultation. No wheezes or rhonchi. No intercostal retractions. HEART: Regular rate and rhythm. No murmur. ABDOMEN: Soft. Bowel sounds are present. No masses. No tenderness. EXTREMITIES: No pedal edema. No calf tenderness. Right hip discomfort noted NEUROLOGICAL: Patient is awake, alert and oriented x3. Cranial nerves 2 through 12 are grossly intact. Diffusely weak Assessment: -Mechanical fall/left greater trochanteric fracture, continue with conservative management per orthopedics -Mild hyponatremia, improving -Diabetes mellitus, insulin-dependent, uncontrolled with hyperglycemia -Hypertension -Hyperlipidemia -Peripheral vascular occlusive disease; patient is status post amputation right 4th and 5th toe -Diabetic neuropathy - History of chronic back pain -Right heel hematoma versus deep tissue injury - GI prophylaxis - DVT prophylaxis - Full code Plan: Patient is admitted under orthopedics status post fall with greater trochanteric fracture along with upper shoulder pain. Fracture is nondisplaced and orthop edics has evaluated recommending conservative management at this time and close outpatient follow-up Patient evaluated by physical therapy doing okay and reports has support at the home with her son and who live there Continue pain management per orthopedics and recommend limiting IV narcotics use Encouraged increase activity as tolerated with restrictions per orthopedics Patient be reevaluated by physical therapy and if pain is controlled with orthopedics considering discharge planning in the next 24 hours Patient was noted to have bruising on the right heel and/or possible hematoma v ersus deep tissue injury, remain offloading to that area Patient is medically stable once cleared by orthopedics recommend close outpatient follow-up with primary care provider as well We will continue to follow with orthopedics during hospitalization. Thank you kindly for this consultation. The impression and plan of care has been dictated by Consuelo Combs, Nurse Practitioner as directed. Dr. Joe MD I have performed a history and examination and MDM of this patient, discussed the same with the dictator, and agree with the dictator's assessment and plan as written ,documented as a scribe. Based on total visit time, I have performed more than 50% of the visit. Objective - Vital Signs Vital signs: Vital Signs Temp 98.5 F 06/04/24 01:27 Pulse 75 06/04/24 01:27 Resp 17 06/04/24 01:27 BP 107/62 06/04/24 01:27 Pulse Ox 93 L 06/04/24 01:27 FiO2 Intake & Output 06/03/24 06/03/24 06/04/24 06:59 18:59 06:59 Intake Total 1000 Output Total 1400 950 550 Balance -400 -950 -550 Intake: Oral 1000 Output: Urine 1400 950 550 Other: Voiding Method External Catheter External Catheter External Catheter # Voids 1 # Bowel Movements 0 - Labs CBC & Chem 7: 06/01/24 03:47 06/01/24 03:47 Labs: Abnormal Lab Results - Last 24 Hours (Table) 06/03/24 06/03/24 06/03/24 Range/Units 06:33 10:56 16:48 POC Glucose (mg/dL) 394 H 196 H 245 H (70-110) mg/dL 06/03/24 Range/Units 20:42 POC Glucose (mg/dL) 279 H (70-110) mg/dL
[2024-06-04 06:09] LABS: Glucose,Whole Blood 353 mg/dL (70-110)
[2024-06-04 07:53] VITALS: BP 110/71; RESP 16; TEMP 98.3
--- NOTE | 2024-06-04 10:51 | P.HPOR ---
History of Present Illness H&P Date: 05/30/24 Chief Complaint: Left hip pain Patient states she attempted to get up from her couch yesterday afternoon and sustained a ground-level fall onto her left side, she had pain to her left hip and difficulty ambulating. She also notes pain diffusely along the left side of her body after the fall. Patient was seen in the ED where she was diagnosed with a nondisplaced fracture of the left greater trochanter. Patient states she previously had a similar injury that was treated conservatively a few years ago. Patient has a history of left forefoot amputation as well as significant peripheral neuropathy. On exam currently she notes continued pain to the left hip though improved from her admission she also notes some mild but also improving pain to her left shoulder. She denies any new numbness or tingling to her extremities. Review of Systems Constitutional: Denies chills, Denies fever Musculoskeletal: Reports as per HPI Past Medical History Past Medical History: CVA/TIA, Diabetes Mellitus, GERD/Reflux, Hyperlipidemia, Hypertension, Myocardial Infarction (NM), Vascular Disorder Additional Past Medical History / Comment(s): 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 , unsteady gait., see Cardiology [facility] INPT FOR LT FOOT ULCER-WAS SEEN IN WOUND CARE 03/26/23-HAS DRESSING ON FOOT Last Myocardial Infarction Date:: february 2017 History of Any Multi-Drug Resistant Organisms: None Reported Past Surgical History: Back Surgery, Cholecystectomy, Heart Catheterization With Stent, Orthopedic Surgery Additional Past Surgical History / Comment(s): Right 5th toe amputation, lumbar fusion, spinal cord stimulator in place but not working., left knee arthroscopy, EGD, PATRICIA, 3 cardiac stents, Aortoram, stent to left iliac artery. , stent right leg above the knee, right 4th toe amputation. ANGIOGRAM,m 04/11/23 left toes amputation. Past Anesthesia/Blood Transfusion Reactions: No Reported Reaction Additional Past Anesthesia/Blood Transfusion Reaction / Comment(s): . Date of Last Stent Placement:: 12/14/2021 Past Psychological History: Anxiety Additional Psychological History / Comment(s): . Smoking Status: Current every day smoker Past Alcohol Use History: None Reported Additional Past Alcohol Use History / Comment(s): Patient has smoked one pack a day for 40 years, patient states she is cutting down and planning to quit. Past Drug Use History: None Reported - Past Family History Father Family Medical History: Cancer, Liver Disease Additional Family Medical History / Comment(s): Idiopathic cirrhosis of liver, Liver Cancer. Mother Family Medical History: Coronary Artery Disease (CAD), Myocardial Infarction (NM) Additional Family Medical History / Comment(s): Multiple stents. Mother at the age of 77 or 78 from NM. Medications and Allergies Home Medications Medication Instructions Recorded Confirmed Type Atorvastatin [Lipitor] 80 mg PO HS 06/26/16 05/30/24 History Clopidogrel [Plavix] 75 mg PO DAILY 30 Days #30 tab 01/05/21 05/30/24 Rx DULoxetine HCL [Cymbalta] 60 mg PO HS 05/30/24 05/30/24 History Fenofibrate [Lofibra] 160 mg PO DAILY 05/30/24 05/30/24 History Gabapentin [Neurontin] 100 mg PO HS 05/30/24 05/30/24 History INSULIN LISPRO (humaLOG) [humaLOG] See Protocol SQ ACHS 05/30/24 05/30/24 History Nitrofurantoin Monohyd/M-Cryst 100 mg PO Q12H 05/30/24 05/30/24 History [Nitrofurantoin Monohyd/M-Cryst 100 mg] cilostazoL [Pletal] 50 mg PO BID 05/30/24 05/30/24 History lisinopriL [Zestril] 20 mg PO DAILY 05/30/24 05/30/24 History Aspirin 81 mg PO BID #60 tab 05/31/24 Rx HYDROcodone/APAP 5-325MG [Jackson 5] 1 each PO Q6HR PRN #28 tab 06/02/24 Rx Allergies Allergy/AdvReac Type Severity Reaction Status Date / Time gluten AdvReac Nausea & Verified 05/30/24 07:34 Vomiting & Diarrhea, bloating Physical Examination Exam of the left hip shows skin is intact she is tender to palpation over the greater trochanter, gentle passive range of motion of the hip is well-tolerated in the groin area however she does note pain at the site of the greater trochanter gentle manipulation of the knee and ankle did not elicit any pain, patient has a baseline intact sensation to light touch throughout the left lower extremity. There is brisk capillary refill to the residual foot. Exam of the left shoulder shows skin is intact there is no ecchymosis or swelling she has tender to palpation over the lateral aspect of the shoulder, she is able to actively range the shoulder with pain only at the terminal ranges of motion. Also has baseline intact sensation to light touch throughout the left upper extremity there is a palpable radial pulse and brisk capillary refill to the fingers. Results - Labs Labs: Abnormal Lab Results - Last 24 Hours (Table) 05/30/24 05/30/24 05/30/24 Range/Units 05:07 05:07 05:07 Hct 37.1 L (37.2-46.3) % APTT 20.6 L (22.0-30.0) sec Sodium 133 L (137-145) mmol/L Creatinine 0.50 L (0.52-1.04) mg/dL Glucose 338 H (74-99) mg/dL POC Glucose (mg/dL) (70-110) mg/dL 05/30/24 05/30/24 Range/Units 11:43 17:11 Hct (37.2-46.3) % APTT (22.0-30.0) sec Sodium (137-145) mmol/L Creatinine (0.52-1.04) mg/dL Glucose (74-99) mg/dL POC Glucose (mg/dL) 411 H 532 H* (70-110) mg/dL H & H 05/30/24 Range/Units 05:07 Hgb 13.3 (12.0-15.0) g/dL Hct 37.1 L (37.2-46.3) % Coagulation 05/30/24 Range/Units 05:07 INR 1.0 (<1.2) Result Diagrams: 06/01/24 03:47 06/01/24 03:47 - Diagnostic results Shoulder x-ray: image reviewed (Images show no acute fractures or dislocations, there are moderate degenerative changes noted) Elbow x-ray: image reviewed (Images of the left shoulder shows no acute fractures or dislocations) Hip x-ray: image reviewed (Imaging of the left hip shows no acute fracture or dislocation there are moderate degenerative changes to the left hip) Hip CT: image reviewed (CT of the left hip shows a nondisplaced fracture of the greater trochanter, there is no evidence of intertrochanteric extension on the CT scan) Assessment and Plan Assessment: Left hip nondisplaced greater trochanteric fracture Plan: Had a detailed discussion with the patient regarding the nature of her injury, typically these fractures are further evaluated with MRI to assess for any intertrochanteric extension that may put her at risk for fracture completion and displacement in the future. Patient has concerns about having an MRI obtained due to an old spinal cord stimulator that is currently implanted. She also notes that she had similar injury a few years ago and was successfully treated nonoperatively however this was before she had issues with a stroke and developed some overall deconditioning of her body. We discussed that without the MRI we we will be uncertain as to the exact extent of the fracture however the imaging that we do have is at least reassuring at baseline that there is no displacement or current evidence for further extension of the fracture. With this in mind we will need to place her on toe-touch weightbearing restrictions for period of approximately 6 weeks, this will require additional x-ray follow-up to evaluate for any fracture propagation or displacement. Patient will need to have PT and OT evaluations while in the hospital to assess if she will need some form of assistive facility upon discharge For now toe-touch weightbearing to the left leg PT and OT evaluations Appreciate medicine input for medical conditions Multimodal pain regimen Aspirin 81 mg twice daily for DVT prophylaxis until weightbearing is reestablished
[2024-06-04 11:33] LABS: Glucose,Whole Blood 242 mg/dL (70-110)
--- NOTE | 2024-06-04 11:38 | P.DS ---
Providers Date of admission: 05/30/24 04:42 Attending physician: Willian Carrero MD Consults: 05/30/24 04:38 Consult Physician Routine Consulting Provider: Jannette Lainez Consult Reason/Comments: Medical management Do you want consulting provider notified?: Yes Primary care physician: Crystal Sheriffarlo [facility] Course: Patient stated she attempted to get up from her couch on 05/29/2024 afternoon and sustained a ground-level fall onto her left side, she had pain to her left hip and difficulty ambulating. She also noted pain diffusely along the left side of her body after the fall. Patient was seen in the ED where she was diagnosed with a nondisplaced fracture of the left greater trochanter. Patient stated she previously had a similar injury that was treated conservatively a few years ago. Patient has a history of left forefoot amputation as well as significant peripheral neuropathy. She was admitted to the orthopedics floor and was kept for pain control. Pain has been controlled with oral pain medication. Patient worked with physical therapy and had difficulty transferring. Patient insisted on being transferred home where she will be under the care of her and son who live at home with her. We discussed and I think this is reasonable if she has 11/09 care a at home. Continue conservative management for the left shoulder pain and left greater trochanter fracture. Continue toe-touch weightbearing with walker of the left lower extremity. Patient requested a wheel chair so paper prescription was placed in patient's chart 06/02/2024. Patient was prescribed aspirin 81 mg twice daily for DVT prophylaxis. Patient is also on Plavix. Plan to discharge home today. Patient will follow-up with Dr. Willian Carrero at [facility] Dictation was produced using [employer] dictation software, please excuse any grammatical, word or spelling errors. 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 Patient Condition at Discharge: Fair Plan - Discharge Summary Discharge Rx Participant: Yes New Discharge Prescriptions: New Aspirin 81 mg PO BID #60 tab HYDROcodone/APAP 5-325MG [Arverne 5] 1 each PO Q6HR PRN #28 tab PRN Reason: Pain Continue Atorvastatin [Lipitor] 80 mg PO HS INSULIN LISPRO (humaLOG) [humaLOG] See Protocol SQ ACHS lisinopriL [Zestril] 20 mg PO DAILY Clopidogrel [Plavix] 75 mg PO DAILY 30 Days #30 tab Gabapentin [Neurontin] 100 mg PO HS Nitrofurantoin Monohyd/M-Cryst [Nitrofurantoin Monohyd/M-Cryst 100 mg] 100 mg PO Q12H Fenofibrate [Lofibra] 160 mg PO DAILY DULoxetine HCL [Cymbalta] 60 mg PO HS cilostazoL [Pletal] 50 mg PO BID Discontinued Aspirin 81 mg PO DAILY HYDROcodone/APAP 5-325MG [Arverne 5-325] 1 tab PO BID PRN PRN Reason: Pain Discharge Medication List Atorvastatin [Lipitor] 80 mg PO HS 06/26/16 [History] Clopidogrel [Plavix] 75 mg PO DAILY 30 Days #30 tab 01/05/21 [Rx] DULoxetine HCL [Cymbalta] 60 mg PO HS 05/30/24 [History] Fenofibrate [Lofibra] 160 mg PO DAILY 05/30/24 [History] Gabapentin [Neurontin] 100 mg PO HS 05/30/24 [History] INSULIN LISPRO (humaLOG) [humaLOG] See Protocol SQ ACHS 05/30/24 [History] Nitrofurantoin Monohyd/M-Cryst [Nitrofurantoin Monohyd/M-Cryst 100 mg] 100 mg PO Q12H 05/30/24 [History] cilostazoL [Pletal] 50 mg PO BID 05/30/24 [History] lisinopriL [Zestril] 20 mg PO DAILY 05/30/24 [History] Aspirin 81 mg PO BID #60 tab 05/31/24 [Rx] HYDROcodone/APAP 5-325MG [Arverne 5] 1 each PO Q6HR PRN #28 tab 06/02/24 [Rx] Follow up Appointment(s)/Referral(s): Willian Carrero MD [STAFF PHYSICIAN] - 2 Weeks Crystal Stanton DO [Primary Care Provider] - 1-2 days [facility], [NON-STAFF] - As Needed Activity/Diet/Wound Care/Special Instructions: Touchdown weightbearing of left lower extremity with assistive device. Aspirin 81 mg twice daily for 30 days for DVT prophylaxis. Arverne 5 for pain control. Start form completed and placed in the patient's chart 06/02/2024. Follow up with Dr. Willian Carrero as an outpatient. Discharge Disposition: HOME WITH HOME HEALTH SERVICES
[2024-06-04 11:41] VITALS: PULSE 86
--- NOTE | 2024-06-05 05:52 | P.PN ---
Subjective Progress Note Date: 06/04/24 63-year-old female who presents emergency department reporting left shoulder and left hip pain. Patient states that she has significant neuropathy in her lower extremities and has had previous amputations of her foot and toes. She does have difficulty with ambulation. States that she lost her balance yesterday and fell onto her left hip. She also complains of pain in the left shoulder. She denies hitting her head. No neck or back pain. States that she has had difficulty ambulating on the left hip. She denies any abdominal pain. No chest pain or difficulty breathing. No other alleviating, precipitating modifying factors Blood work completed in ED reveals a WBC of 8.7, hemoglobin of 13.3 and platelet count of 183, sodium 133, potassium 4.2, BUN/creatinine of 13/0.50, blood glucose of 338 Left hip x-ray reveals subtle lucency in the superior aspect of greater trochanter of the proximal left femur. Questionable nondisplaced fracture CT of the hip reveals nondisplaced oblique fracture through the superior corner of the left greater trochanter 06/01/2024 Patient is seen and evaluated sitting up in bed eating lunch; reports some improvement in pain however reports she has not been able to get out of bed Vital signs reviewed and stable temperature 97.5, pulse 82, respiration 15 and blood pressure 109/73, O2 saturation 96% Sodium 132, potassium 3.8, BUN/creatinine 13.3/0.6 and blood glucose of 280 Continue conservative management for the left shoulder pain and left greater trochanter fracture. Continue toe-touch weightbearing with walker of the left lower extremity. Continue pain control. 06/03/2024 Patient is seen in follow-up today with orthopedics as attending and patient is adamant she is not going to [facility]. Wheelchair being ordered by case management as patient does have support at the home that can propel her to continue with ADLs. Patient continues to report significant pain and weakness has been working with physical therapy. Patient noted to have a right heel hematoma/deep tissue injury and will continue with offloading of that area with Optifoam. Skin is dry and intact. Patient is afebrile with no reported chest pain or shortness of breath. Patient has been tolerating diet and denies nausea or vomiting. 06/04/2024 Patient is seen in follow-up this morning with no acute overnight issues noted. Patient reporting slight improvement in pain and will be going home and has support in the home. Patient has received her walker and recommend continuing PT/OT therapy outpatient. Patient would likely benefit from inpatient rehab or ECF although patient is adamant she is returning home. Patient is afebrile with no reported chest pain or shortness of breath. Patient reports she will be going home today. Plan is for discharge later today. Review of systems: Constitutional: No reports of fatigue, fever, or chills Cardiovascular: No reports of chest pain or palpitations Respiratory: No reports of shortness of breath or cough GI: No reports of nausea, vomiting, or diarrhea : No reports of dysuria or retention Neurovascular: reports of generalized weakness and right hip pain All medications have been reviewed Physical exam: Gen: This is a 63-year-old female who is awake, alert and oriented x 3, well-developed, elderly appearing, thin built HEENT: Head is atraumatic, normocephalic. Pupils equal, round. Sclerae is anicteric. NECK: Supple. No JVD. No lymphadenopathy. No thyromegaly. LUNGS: Clear to auscultation. No wheezes or rhonchi. No intercostal retractions. HEART: Regular rate and rhythm. No murmur. ABDOMEN: Soft. Bowel sounds are present. No masses. No tenderness. EXTREMITIES: No pedal edema. No calf tenderness. Left hip discomfort noted NEUROLOGICAL: Patient is awake, alert and oriented x3. Cranial nerves 2 through 12 are grossly intact. Diffusely weak Assessment: -Mechanical fall/left greater trochanteric fracture, continue with conservative management per orthopedics -Mild hyponatremia, improving -Diabetes mellitus, insulin-dependent, uncontrolled with hyperglycemia -Hypertension -Hyperlipidemia -Peripheral vascular occlusive disease; patient is status post amputation right 4th and 5th toe -Diabetic neuropathy - History of chronic back pain -Right heel hematoma versus deep tissue injury - GI prophylaxis - DVT prophylaxis - Full code Plan: Patient is admitted under orthopedics status post fall with greater trochanteric fracture along with upper shoulder pain. Fracture is nondisplaced and orthopedics has evaluated recommending conservative management at this time and close outpatient follow-up Patient evaluated by physical therapy doing okay and reports has support at the home with her son and who live there Continue pain management per orthopedics and has been transition to oral narcotics Encouraged increase activity as tolerated with restrictions per orthopedics Patient was noted to have bruising on the right heel and/or possible hematoma versus deep tissue injury, remain offloading to that area Patient is medically stable once cleared by orthopedics recommend close outpatient follow-up with primary care provider as well We will continue to follow with orthopedics during hospitalization. Thank you kindly for this consultation. The impression and plan of care has been dictated by Consuelo Combs, Nurse Practitioner as directed. Dr. Joe MD I have performed a history and examination and MDM of this patient, discussed the same with the dictator, and agree with the dictator's assessment and plan as written ,documented as a scribe. Based on total visit time, I have performed more than 50% of the visit. Objective - Vital Signs Vital signs: Vital Signs Temp 98.3 F 06/04/24 06:35 Pulse 86 06/04/24 08:00 Resp 16 06/04/24 06:35 BP 110/71 06/04/24 06:35 Pulse Ox 94 L 06/04/24 06:35 FiO2 Intake & Output 06/04/24 06/04/24 06/05/24 06:59 18:59 06:59 Intake Total 240 Output Total 550 Balance -550 240 Intake: Oral 240 Output: Urine 550 Other: Voiding Method External Catheter External Catheter - Labs CBC & Chem 7: 06/01/24 03:47 06/01/24 03:47 Labs: Abnormal Lab Results - Last 24 Hours (Table) 06/04/24 06/04/24 Range/Units 06:08 11:31 POC Glucose (mg/dL) 353 H 242 H (70-110) mg/dL
--- NOTE | 2024-06-06 10:16 | CDI ---
Documentation Clarification Form Date: 06/06/2024 10:00:10 AM From: Marleny Kuhn RN, CCDS Email: [email or web address] Admit Date: 05/30/2024 04:42:00 AM Patient Name: Mary Jo Caldwell Visit Number: [id number] Discharge Date: 06/04/2024 12:55:00 PM ATTENTION: The Clinical Documentation Specialists (CDI) and [facility] Coding Staff appreciate your assistance in clarifying documentation. Please respond to the clarification below the line at the bottom and electronically sign. The CDI & [facility] Coding staff will review the response and follow-up if needed. Please note: Queries are made part of the Legal Health Record. If you have any questions, please contact the author of this message via ITS. Doctor Jone Lopez fracture is documented in the progress notes. Additional clarification regarding the etiology of the fracture is requested. History/Risk Factors: 63-year-old female with CVA/TIA, DM with neuropathy, amputation of foot/toes and hypertension. Presented after a fall with left shoulder and hip pain. Found to have a greater trochanter fracture. Clinical Indications: 05/30 Shoulder xray: Bones/joints: Mild diffuse osteopenia 05/30 Left hip xray: Subtle lucency in the superior aspect of the greater trochanter of the proximal left femur. Questionable nondisplaced fracture. Mild narrowing and osteophytosis of left hip joint consistent with osteoarthritis. 06/04 IM: "Mechanical fall/left greater trochanteric fracture, continue with conservative management per Orthopedics. Orthopedics has evaluated and recommending conservative management at this time. Patient evaluated by physical therapy. Continue pain management per Orthopedics." 06/04 Discharge summary: "Left nondisplaced oblique fracture over the corner of the greater trochanter. Left hip pain. Left shoulder pain. Mild degenerative osteoarthritis of the left shoulder." Treatment: PT/OT on 05/30 and 06/04 with recommendation for ALICJA placement which patient refused; pain management with [place] 1-tab po Q6H prn 06/01-06/04; IV Morphine 4mg x1 on 05/29; IV Morphine 4mg Q4 prn 05/30-06/04 Please clarify the etiology of the fracture, if known: [ ] Osteopenia [ ] Pathological (specify cause): ___ [ ] Traumatic [ ] Other (please specify): [ ] Unable to determine MTDD
== END 2024-06-04 12:55 | disposition home health service (06) | DRG 536 ==
LOC: EC 20:44 → 4SSUR 05-30 04:42
PROVIDERS: ADMIT Orthopaedic Surgery; ATTEND Orthopaedic Surgery
DX: S72.115A Nondisplaced fracture of greater trochanter of left femur, initial encounter for closed fracture (principal); I69.351 Hemiplegia and hemiparesis following cerebral infarction affecting right dominant side; E87.1 Hypo-osmolality and hyponatremia; E11.40 Type 2 diabetes mellitus with diabetic neuropathy, unspecified; I10 Essential (primary) hypertension; E11.65 Type 2 diabetes mellitus with hyperglycemia; R26.2 Difficulty in walking, not elsewhere classified; M19.012 Primary osteoarthritis, left shoulder; F17.200 Nicotine dependence, unspecified, uncomplicated; G89.29 Other chronic pain; M54.9 Dorsalgia, unspecified; I99.8 Other disorder of circulatory system; E78.5 Hyperlipidemia, unspecified; S90.31XA Contusion of right foot, initial encounter; W01.0XXA Fall on same level from slipping, tripping and stumbling without subsequent striking against object, initial encounter; Z89.432 Acquired absence of left foot; Z79.4 Long term (current) use of insulin; Z79.02 Long term (current) use of antithrombotics/antiplatelets; Z91.018 Allergy to other foods; Z79.82 Long term (current) use of aspirin; I25.2 Old myocardial infarction; Z79.899 Other long term (current) drug therapy; Z95.5 Presence of coronary angioplasty implant and graft
CPT/HCPCS: 73502; 80048; 80053; 83036; 85025; 85610; 85730; 96374; 96375; 96376; 99285

== ENCOUNTER 2024-07-22 21:29 | Inpatient (IN) | payer MEDICARE ==
--- NOTE | 2024-07-22 22:03 | ED ---
Female Urogenital HPI - General Chief complaint: Urogenital Stated complaint: UTI Time Seen by Provider: 07/22/24 21:43 Source: patient, EMS, RN notes reviewed Mode of arrival: EMS Limitations: no limitations - History of Present Illness Initial comments: This is a 63-year-old female with history of DM and neuropathy presenting via EMS for UTI symptoms x 2 weeks. Patient endorses recent dysuria, also mentioning ongoing urinary incontinence since March 2024. States she has been going through 15 diapers per day with difficulty due to recent fractured hip. Patient endorses receiving/taking Macrobid for over 1 week with minimal relief. Endorses fever, chills, weakness, brain fog, dysuria and general anxiety. Denies chest pain, dyspnea, abdominal pain, N/V/D. Patient agrees that she would prefer a Ragland catheter over diaper changes for urinary continence until she can see urology for further evaluation and workup. MD Complaint: dysuria Onset/Timin -: week(s) Location: suprapubic Quality: burning Consistency: intermittent Worsens with: urination Associated Symptoms: fever/chills, dysuria, other (Urinary incontinence) - Related Data Home Medications Medication Instructions Recorded Confirmed Atorvastatin [Lipitor] 80 mg PO HS 06/26/16 05/30/24 DULoxetine HCL [Cymbalta] 60 mg PO HS 05/30/24 05/30/24 Fenofibrate [Lofibra] 160 mg PO DAILY 05/30/24 05/30/24 Gabapentin [Neurontin] 100 mg PO HS 05/30/24 05/30/24 INSULIN LISPRO (humaLOG) [humaLOG] See Protocol SQ ACHS 05/30/24 05/30/24 Nitrofurantoin Monohyd/M-Cryst 100 mg PO Q12H 05/30/24 05/30/24 [Nitrofurantoin Monohyd/M-Cryst 100 mg] cilostazoL [Pletal] 50 mg PO BID 05/30/24 05/30/24 lisinopriL [Zestril] 20 mg PO DAILY 05/30/24 05/30/24 Previous Rx's Medication Instructions Recorded Clopidogrel [Plavix] 75 mg PO DAILY 30 Days #30 tab 01/05/21 Aspirin 81 mg PO BID #60 tab 05/31/24 HYDROcodone/APAP 5-325MG [[place] 5] 1 each PO Q6HR PRN #28 tab 06/02/24 Allergies Allergy/AdvReac Type Severity Reaction Status Date / Time No Known Allergies Allergy Verified 07/22/24 21:36 Review of Systems ROS Statement: Those systems with pertinent positive or pertinent negative responses have been documented in the HPI. ROS Other: All systems not noted in ROS Statement are negative. Past Medical History Past Medical History: CVA/TIA, Diabetes Mellitus, GERD/Reflux, Hyperlipidemia, Hypertension, Myocardial Infarction ([place]), Vascular Disorder Additional Past Medical History / Comment(s): 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 , unsteady gait., see Cardiology [facility] INPT FOR LT FOOT ULCER-WAS SEEN IN WOUND CARE 03/26/23-HAS DRESSING ON FOOT Last Myocardial Infarction Date:: february 2017 History of Any Multi-Drug Resistant Organisms: None Reported Past Surgical History: Back Surgery, Cholecystectomy, Heart Catheterization With Stent, Orthopedic Surgery Additional Past Surgical History / Comment(s): Right 5th toe amputation, lumbar fusion, spinal cord stimulator in place but not working., left knee arthroscopy, EGD, PATRICIA, 3 cardiac stents, Aortoram, stent to left iliac artery. , stent right leg above the knee, right 4th toe amputation. ANGIOGRAM,m 04/11/23 left toes amputation. Past Anesthesia/Blood Transfusion Reactions: No Reported Reaction Additional Past Anesthesia/Blood Transfusion Reaction / Comment(s): . Date of Last Stent Placement:: 12/14/2021 Past Psychological History: Anxiety Smoking Status: Current every day smoker Past Alcohol Use History: None Reported Past Drug Use History: None Reported - Past Family History Father Family Medical History: Cancer, Liver Disease Additional Family Medical History / Comment(s): Idiopathic cirrhosis of liver, Liver Cancer. Mother Family Medical History: Coronary Artery Disease (CAD), Myocardial Infarction ([place]) Additional Family Medical History / Comment(s): Multiple stents. Mother at the age of 77 or 78 from [place]. General Exam General appearance: alert, anxious, in distress (Patient is tearful) Head exam: Present: atraumatic, normocephalic, normal inspection Eye exam: Present: normal appearance, PERRL, EOMI. Absent: scleral icterus, conjunctival injection, periorbital swelling ENT exam: Present: normal exam, mucous membranes moist Neck exam: Present: normal inspection. Absent: tenderness, meningismus, lymphadenopathy Respiratory exam: Present: normal lung sounds bilaterally. Absent: respiratory distress, wheezes, rales, rhonchi, stridor Cardiovascular Exam: Present: regular rate, normal rhythm, normal heart sounds. Absent: systolic murmur, diastolic murmur, rubs, gallop, clicks GI/Abdominal exam: Present: soft, tenderness (Positive suprapubic TTP without guarding), normal bowel sounds. Absent: distended, guarding, rebound, rigid Extremities exam: Present: normal inspection, full ROM, normal capillary refill. Absent: tenderness, pedal edema, joint swelling, calf tenderness Back exam: Present: CVA tenderness (L). Absent: CVA tenderness (R) Neurological exam: Present: alert, oriented X3, CN II-XII intact Psychiatric exam: Present: normal affect, normal mood Skin exam: Present: warm, dry, intact, normal color. Absent: rash Course Vital Signs 07/22/24 07/22/24 07/22/24 21:30 23:46 23:50 Temperature 100.7 F H 101.2 F H Pulse Rate 102 H 80 Respiratory 20 16 Rate Blood Pressure 141/92 162/104 O2 Sat by Pulse 98 99 Oximetry 07/22/24 23:53 Temperature Pulse Rate 99 Respiratory 17 Rate Blood Pressure 153/82 O2 Sat by Pulse 96 Oximetry Medical Decision Making - Medical Decision Making Was pt. sent in by a medical professional or institution (, PA, HAND HARDENER, urgent care, hospital, or assisted...) When possible be specific @ -No Did you speak to anyone other than the patient for history (EMS, parent, family, police, friend...)? What history was obtained from this source @ -No Did you review nursing and triage notes (agree or disagree)? Why? @ -I reviewed and agree with nursing and triage notes Were old charts reviewed (outside hosp., previous admission, EMS record, old EKG, old radiological studies, urgent care reports/EKG's, assisted records)? Report findings @ -No old charts were reviewed Differential Diagnosis (chest pain, altered mental status, abdominal pain women, abdominal pain men, vaginal bleeding, weakness, fever, dyspnea, syncope, headache, dizziness, GI bleed, back pain, seizure, CVA, palpatations, mental health, musculoskeletal)? @ -Differential Abdominal Pain Women: Appendicitis, Cholecystitis, diverticulosis, ischemic bowel, pancreatitis, hepatitis, UTI, gastroenteritis, AAA, incarcerated hernia, bowel obstruction, constipation, inflammatory bowel, hepatitis, peptic ulcer disease, splenic infarction, perforated viscus, vulvitis, ovarian torsion, PID, kidney stone, placenta abruption, this is not meant to be an all-inclusive list EKG interpreted by me (3pts min.). @ -Not done X-rays interpreted by me (1pt min.). @ -None done CT interpreted by me (1pt min.). @ -None done U/S interpreted by me (1pt. min.). @ -None done What testing was considered but not performed or refused? (CT, X-rays, U/S, labs)? Why? @ -None What meds were considered but not given or refused? Why? @ -None Did you discuss the management of the patient with other professionals (professionals i.e. , PA, HAND HARDENER, lab, RT, psych nurse, social studies department chair, bit setter, teacher, chief operating officer, mental health case manager)? Give summary @ -No Was smoking cessation discussed for >3mins.? @ -No Was critical care preformed (if so, how long)? @ -No Were there social determinants of health that impacted care today? How? (Homelessness, low income, unemployed, alcoholism, drug addiction, transportation, low edu. Level, literacy, decrease access to med. care, residential, rehab)? @ -No Was there de-escalation of care discussed even if they declined (Discuss DNR or withdrawal of care, Hospice)? DNR status @ -No What co-morbidities impacted this encounter? (DM, HTN, Smoking, COPD, CAD, Cancer, CVA, ARF, Chemo, Hep., AIDS, mental health diagnosis, sleep apnea, morbid obesity)? @ -DM Was patient admitted / discharged? Hospital course, mention meds given and route, prescriptions, significant lab abnormalities, going to OR and other pertinent info. @ -Patient initially provided IV LR and p.o. Tylenol, Pyridium. Lab work notable for hyperglycemia 379 and lactic acid 2.8. Kidney function and LFT unremarkable. Patient provided IV Valium for ongoing anxiety/crying as well as additional LR and p.o. Motrin for ongoing fever and tachycardia. Ragland catheter initiated with patient's approval. Urine positive for UTI, glycosuria and microscopic hematuria as well as urine yeast. Patient started on IVPB Rocephin given initial dose of p.o. Bactrim DS. Admission orders created and [facility] will be contacted in the morning admit patient for urosepsis and chronic urinary incontinence. Discussed patient with Dr. Roman. Undiagnosed new problem with uncertain prognosis? @ -No Drug Therapy requiring intensive monitoring for toxicity (Heparin, Nitro, Insulin, Cardizem)? @ -No Were any procedures done? @ -No Diagnosis/symptom? @ -Urosepsis, chronic urinary incontinence Acute, or Chronic, or Acute on Chronic? @ -Acute Uncomplicated (without systemic symptoms) or Complicated (systemic symptoms)? @ -Complicated Side effects of treatment? @ -No Exacerbation, Progression, or Severe Exacerbation? @ -No Poses a threat to life or bodily function? How? (Chest pain, [place], [place], pneumonia, PE, COPD, DKA, ARF, appy, cholecystitis, CVA, Diverticulitis, Homicidal, Suicidal, threat to staff... and all critical care pts) @ -No - Lab Data Result diagrams: 07/22/24 22:04 07/22/24 22:04 Lab Results 07/22/24 07/22/24 07/22/24 Range/Units 22:04 22:04 22:04 WBC 7.71 (4.50-10.00) 10*3/uL RBC 4.70 (4.10-5.20) 10*6/uL Hgb 13.3 (12.0-15.0) g/dL Hct 38.5 (37.2-46.3) % MCV 81.9 (80.0-97.0) fL MCH 28.3 (27.0-32.0) pg MCHC 34.5 (32.0-37.0) g/dL Plt Count 218 (140-440) 10*3/uL MPV 10.4 (9.5-12.2) fL Immature Gran % (Auto) 0.1 % Neutrophils % 82.6 % Lymphocytes % 10.8 % Monocytes % 5.6 % Eosinophils % 0.4 % Basophils % 0.5 % Immature Gran # 0.01 (0.00-0.04) 10*3/uL Neutrophils # 6.37 (1.80-7.70) 10*3/uL Lymphocytes # 0.83 L (0.90-5.00) 10*3/uL Monocytes # 0.43 (0.20-1.00) 10*3/uL Eosinophils # 0.03 L (0.04-0.35) 10*3/uL Basophils # 0.04 (0.00-0.10) 10*3/uL Sodium 133 L (137-145) mmol/L Potassium 4.7 (3.5-5.1) mmol/L Chloride 100 (98-107) mmol/L Carbon Dioxide 22 (22-30) mmol/L Anion Gap 11 mmol/L BUN 16 (7-17) mg/dL Creatinine 0.69 (0.52-1.04) mg/dL Est GFR (CKD-EPI)AfAm >90 (>60 ml/min/1.73 sqM) Est GFR (CKD-EPI)NonAf >90 (>60 ml/min/1.73 sqM) Glucose 379 H (74-99) mg/dL Plasma Lactic Acid Yousif 2.8 H* (0.7-2.0) mmol/L Calcium 9.1 (8.4-10.2) mg/dL Total Bilirubin 0.5 (0.2-1.3) mg/dL AST 15 (14-36) U/L ALT 12 (4-34) U/L Alkaline Phosphatase 90 (38-126) U/L Total Protein 6.6 (6.3-8.2) g/dL Albumin 3.9 (3.5-5.0) g/dL Urine Color Urine Appearance (Clear) Urine pH (5.0-8.0) Ur Specific [place] (1.001-1.035) Urine Protein (Negative) Urine Glucose (UA) (Negative) Urine Ketones (Negative) Urine Blood (Negative) Urine Nitrite (Negative) Urine Bilirubin (Negative) Urine Urobilinogen (<2.0) mg/dL Ur Leukocyte Esterase (Negative) Urine RBC (0-5) /hpf Urine WBC (0-5) /hpf Ur Squamous Epith Cells (0-4) /hpf Urine Bacteria (None) /hpf Urine Mucus (None) /hpf Urine Yeast (Budding) (None) /hpf 07/22/24 Range/Units 22:51 WBC (4.50-10.00) 10*3/uL RBC (4.10-5.20) 10*6/uL Hgb (12.0-15.0) g/dL Hct (37.2-46.3) % MCV (80.0-97.0) fL MCH (27.0-32.0) pg MCHC (32.0-37.0) g/dL Plt Count (140-440) 10*3/uL MPV (9.5-12.2) fL Immature Gran % (Auto) % Neutrophils % % Lymphocytes % % Monocytes % % Eosinophils % % Basophils % % Immature Gran # (0.00-0.04) 10*3/uL Neutrophils # (1.80-7.70) 10*3/uL Lymphocytes # (0.90-5.00) 10*3/uL Monocytes # (0.20-1.00) 10*3/uL Eosinophils # (0.04-0.35) 10*3/uL Basophils # (0.00-0.10) 10*3/uL Sodium (137-145) mmol/L Potassium (3.5-5.1) mmol/L Chloride (98-107) mmol/L Carbon Dioxide (22-30) mmol/L Anion Gap mmol/L BUN (7-17) mg/dL Creatinine (0.52-1.04) mg/dL Est GFR (CKD-EPI)AfAm (>60 ml/min/1.73 sqM) Est GFR (CKD-EPI)NonAf (>60 ml/min/1.73 sqM) Glucose (74-99) mg/dL Plasma Lactic Acid Yousif (0.7-2.0) mmol/L Calcium (8.4-10.2) mg/dL Total Bilirubin (0.2-1.3) mg/dL AST (14-36) U/L ALT (4-34) U/L Alkaline Phosphatase (38-126) U/L Total Protein (6.3-8.2) g/dL Albumin (3.5-5.0) g/dL Urine Color Colorless Urine Appearance Turbid H (Clear) Urine pH 5.5 (5.0-8.0) Ur Specific [place] 1.017 (1.001-1.035) Urine Protein 1+ H (Negative) Urine Glucose (UA) 4+ H (Negative) Urine Ketones Negative (Negative) Urine Blood Small H (Negative) Urine Nitrite Negative (Negative) Urine Bilirubin Negative (Negative) Urine Urobilinogen <2.0 (<2.0) mg/dL Ur Leukocyte Esterase Large H (Negative) Urine RBC 7 H (0-5) /hpf Urine WBC >182 H (0-5) /hpf Ur Squamous Epith Cells 12 H (0-4) /hpf Urine Bacteria Rare H (None) /hpf Urine Mucus Rare H (None) /hpf Urine Yeast (Budding) Many H (None) /hpf Disposition Clinical Impression: Urinary incontinence, Sepsis due to urinary tract infection Disposition: ADMITTED IP TO THIS [facility] Condition: Fair Instructions (If sedation given, give patient instructions): *Surgery [facility] - Ragland Catheter Instructions, Urinary Incontinence (ED), How to Change a Catheter Drainage Bag (DC) Referrals: Crystal Stanton DO [Primary Care Provider] - 1-2 days Edison Bower MD [STAFF PHYSICIAN] - 1-2 days Time of Disposition: 00:53 Decision Date: 07/23/24 Decision Time: 00:53
[2024-07-22] MEDS: LACTATED RINGERS 1,000 ML IV ONE (22:12)
[2024-07-22] MEDS: ACETAMINOPHEN TAB 325 MG TAB PO STA (22:15)
[2024-07-22 22:24] LABS: Basophils # (A) 0.04 10*3/uL (0.00-0.10); Basophils % (A) 0.5 %; Eosinophils # (A) 0.03 10*3/uL (0.04-0.35); Eosinophils % (A) 0.4 %; HCT 38.5 % (37.2-46.3); HGB 13.3 g/dL (12.0-15.0); Lymphocytes # (A) 0.83 10*3/uL (0.90-5.00); Lymphocytes % (A) 10.8 %; MCH 28.3 pg (27.0-32.0); MCHC 34.5 g/dL (32.0-37.0); MCV 81.9 fL (80.0-97.0); Mean Platelet Volume 10.4 fL (9.5-12.2); Monocytes # (A) 0.43 10*3/uL (0.20-1.00); Monocytes % (A) 5.6 %; Neutrophils # (A) 6.37 10*3/uL (1.80-7.70); Neutrophils % (A) 82.6 %; Platelet Count 218 10*3/uL (140-440); WBC 7.71 10*3/uL (4.50-10.00)
[2024-07-22] MEDS: PHENAZOPYRIDINE 200 MG TAB PO STA (22:24)
[2024-07-22 22:53] LABS: ALT 12 U/L (4-34); AST 15 U/L (14-36); African American GFR (CKD) >90 (>60 ml/min/1.73 sqM); Albumin 3.9 g/dL (3.5-5.0); Alkaline Phosphatase 90 U/L (38-126); Anion Gap 11 mmol/L; Blood Urea Nitrogen 16 mg/dL (7-17); Calcium 9.1 mg/dL (8.4-10.2); Carbon Dioxide 22 mmol/L (22-30); Chloride 100 mmol/L (98-107); Glucose 379 mg/dL (74-99); Non-African American GFR(CKD) >90 (>60 ml/min/1.73 sqM); Potassium 4.7 mmol/L (3.5-5.1); Sodium 133 mmol/L (137-145); Total Bilirubin 0.5 mg/dL (0.2-1.3); Total Protein 6.6 g/dL (6.3-8.2)
[2024-07-22] MEDS: LACTATED RINGERS 500 ML IV ONE (23:49)
[2024-07-22] MEDS: IBUPROFEN 600 MG TAB PO STA (23:58)
[2024-07-23 00:14] LABS: Appearance,Urine Turbid (Clear); Bacteria,Urine Rare /hpf; Bilirubin,Urine Negative (Negative); Blood,Urine Small (Negative); Budding Yeast,Urine Many /hpf; Color,Urine Colorless; Glucose,Urine (UA) 4+ (Negative); Ketones,Urine Negative (Negative); Leukocyte Esterase,Urine Large (Negative); Mucus,Urine Rare /hpf; Nitrite,Urine Negative (Negative); PH, Urine 5.5 (5.0-8.0); Protein,Urine 1+ (Negative); RBC,Urine 7 /hpf (0-5); Specific Gravity,Urine 1.017 (1.001-1.035); Squamous Epithelial Cell,Urine 12 /hpf (0-4); Urobilinogen,Urine <2.0 mg/dL (<2.0); WBC,Urine >182 /hpf (0-5)
[2024-07-23] MEDS: SULFAMETHOX-TMP 800-160MG 1 EACH TAB PO STA (00:36)
[2024-07-23] MEDS ORDERED: NALOXONE 0.4 MG/ML 1 ML VIAL IV PRN (00:57)
[2024-07-23] MEDS: SODIUM CHLORIDE 0.9% 1,000 ML IV SCH (01:32)
[2024-07-23] MEDS: MORPHINE SULFATE 4 MG/ML SYRINGE IV PRN (03:05)
[2024-07-23] MEDS ORDERED: NON FORMULARY DRUG (Insulin Lispro (Humalog) 100 UNIT/1 ML Ml) SQ SCH (07:30)
[2024-07-23] MEDS: cilostazoL 100 MG TAB PO SCH (09:20)
[2024-07-23] MEDS: lisinopriL 20 MG TAB PO SCH (09:20)
[2024-07-23] MEDS: CLOPIDOGREL 75 MG TAB PO SCH (09:20)
[2024-07-23] MEDS: ASPIRIN 81 MG PO SCH (09:21)
[2024-07-23] MEDS ORDERED: DEXTROSE 50% SYRINGE 50 ML IVP PRN ×2 (09:39)
[2024-07-23] MEDS: SODIUM CHLORIDE 0.9% 500 ML 500 ML IV STA (09:55)
[2024-07-23 10:12] LABS: Basophils # (A) 0.02 10*3/uL (0.00-0.10); Basophils % (A) 0.4 %; HCT 36.5 % (37.2-46.3); HGB 12.4 g/dL (12.0-15.0); Lymphocytes # (A) 0.53 10*3/uL (0.90-5.00); Lymphocytes % (A) 9.5 %; MCH 28.6 pg (27.0-32.0); MCV 84.3 fL (80.0-97.0); Mean Platelet Volume 9.8 fL (9.5-12.2); Monocytes # (A) 0.24 10*3/uL (0.20-1.00); Monocytes % (A) 4.3 %; Neutrophils # (A) 4.76 10*3/uL (1.80-7.70); Neutrophils % (A) 85.4 %; Platelet Count 164 10*3/uL (140-440); RBC 4.33 10*6/uL (4.10-5.20); RDW 13.2 % (11.5-14.5); WBC 5.57 10*3/uL (4.50-10.00)
--- NOTE | 2024-07-23 10:13 | US ---
EXAMINATION TYPE: US kidneys/renal and bladder DATE OF EXAM: 07/23/2024 COMPARISON: CT abdomen and pelvis 2017 CLINICAL INDICATION: Female, 63 years old with history of Fernando; Fernando, no issues per patient, urosepsis TECHNIQUE: Grayscale imaging of the bilateral kidneys and urinary bladder: FINDINGS: EXAM MEASUREMENTS: Right Kidney: 11.4 x 5.0 x 5.5 cm Left Kidney: 12.1 x 4.8 x 5.7 cm Right Kidney: Hydronephrosis seen Left Kidney: Hydronephrosis seen Bladder: Dependant debris versus mass seen There is hydronephrosis bilaterally. No nephrolithiasis is seen. No masses are identified. The uri nary bladder has dependent masslike density. IMPRESSION: Moderate bilateral hydronephrosis. Significant Dependent debris versus posterior wall mas s in the bladder. Follow-up advised as neoplasm needs to be excluded. Advise CT without and with cont rast to further evaluate. [facility], , 07/23/2024 10:10 AM
[2024-07-23 11:33] LABS: Glucose,Whole Blood 464 mg/dL (70-110)
[2024-07-23] MEDS: INSULIN LISPRO (HumaLOG) 100 UNIT/ML 10 mL VL SQ SCH (11:45)
[2024-07-23] MEDS: ONDANSETRON 4 MG/2 ML VIAL IVP PRN (13:14)
--- NOTE | 2024-07-23 13:19 | P.HPIM ---
History of Present Illness H&P Date: 07/23/24 History of present illness; patient 63-year-old lady with past medical history significant for hyperlipidemia, diabetes mellitus who presented to the hospital for dysuria for the last 2 weeks. Stated that she has been noticing that her frequency of urination has increased and she had been having pain with urination. Patient denies any flank pain. Patient denies any abdominal pain. There is complaint of urine continence, patient currently uses diapers and states that she uses up to 15 diapers a day. Stated yesterday patient was having a lot of chills and felt very cold. Patient is complaining of fever at home. There is no complaint of shortness of breath. Patient denies any palpitation. There is no complaint of orthopnea or PND. Denies any nausea, vomiting abdominal pain. Patient denies any complaint of dizziness. There is no complaint of headache. Of the symptoms, patient came to the ER Initial lab work done in the ER showed WBC 7.7, hemoglobin 13.3, platelet count 218, sodium 133, potassium 4.7, BUN 16, creatinine 0.69, lactate 2.8 calcium 9.1 UA done showed large amount of leukocyte Estrace, urine WBC more than 182 Patient admitted to internal medicine service REVIEW OF SYSTEMS: CONSTITUTIONAL: No fever, no malaise, no fatigue. HEENT: No recent visual problems or hearing problems. Denied any sore throat. CARDIOVASCULAR: No chest pain, orthopnea, PND, no palpitations, no syncope. PULMONARY: No shortness of breath, no cough, no hemoptysis. GASTROINTESTINAL: No diarrhea, no nausea, no vomiting, no abdominal pain. NEUROLOGICAL: No headaches, no weakness, no numbness. HEMATOLOGICAL: Denies any bleeding or petechiae. GENITOURINARY: Mentioned above MUSCULOSKELETAL/RHEUMATOLOGICAL: Denies any joint pain, swelling, or any muscle pain. ENDOCRINE: Denies any polyuria or polydipsia. The rest of the 14-point review of systems is negative. PHYSICAL EXAMINATION: GENERAL: The patient is alert and oriented x3, not in any acute distress. Well developed, well nourished. HEENT: Pupils are round and equally reacting to light. EOMI. No scleral icterus. No conjunctival pallor. Normocephalic, atraumatic. No pharyngeal erythema. No thyromegaly. CARDIOVASCULAR: S1 and S2 present. No murmurs, rubs, or gallops. PULMONARY: Chest is clear to auscultation, no wheezing or crackles. ABDOMEN: Soft, nontender, nondistended, normoactive bowel sounds. No palpable organomegaly. MUSCULOSKELETAL: No joint swelling or deformity. EXTREMITIES: No cyanosis, clubbing, or pedal edema. NEUROLOGICAL: Gross neurological examination did not reveal any focal deficits. SKIN: No rashes. Assessment and plan Complicated UTI Lactic acidosis Hypertension Hyperlipidemia History of coronary artery disease Diabetes mellitus Monitor vital signs Monitor CBC Monitor CMP Serial lactate levels Ordered blood cultures Order urine culture Start IV fluids Start IV Rocephin Order ultrasound of kidneys Ordered CRP, ESR, Pro-John Resume home meds Consult ID Labs and medication were reviewed.. Continue same treatment. Continue with symptomatic treatment. Resume home medication. Monitor labs and vitals. DVT and GI prophylaxis. Further recommendations as per clinical course of the patient Dictation was produced using [employer] dictation software. please excuse any gramm atical, word or spelling errors. 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 , unsteady gait., see Cardiology [facility] INPT FOR LT FOOT ULCER-WAS SEEN IN WOUND CARE 03/26/23-HAS DRESSING ON FOOT Last Myocardial Infarction Date:: february 2017 History of Any Multi-Drug Resistant Organisms: None Reported Past Surgical History: Back Surgery, Cholecystectomy, Heart Catheterization With Stent, Orthopedic Surgery Additional Past Surgical History / Comment(s): Right 5th toe amputation, lumbar fusion, spinal cord stimulator in place but not working., left knee arthroscopy, EGD, PATRICIA, 3 cardiac stents, Aortoram, stent to left iliac artery. , stent right leg above the knee, right 4th toe amputation. ANGIOGRAM,m 04/11/23 left toes amputation. Past Anesthesia/Blood Transfusion Reactions: No Reported Reaction Additional Past Anesthesia/Blood Transfusion Reaction / Comment(s): . Date of Last Stent Placement:: 12/14/2021 Past Psychological History: Anxiety Smoking Status: Current every day smoker Past Alcohol Use History: None Reported Past Drug Use History: None Reported - Past Family History Father Family Medical History: Cancer, Liver Disease Additional Family Medical History / Comment(s): Idiopathic cirrhosis of liver, Liver Cancer. Mother Family Medical History: Coronary Artery Disease (CAD), Myocardial Infarction (PR) Additional Family Medical History / Comment(s): Multiple stents. Mother at the age of 77 or 78 from [place]. Medications and Allergies Home Medications Medication Instructions Recorded Confirmed Type Atorvastatin [Lipitor] 80 mg PO HS 06/26/16 07/23/24 History Clopidogrel [Plavix] 75 mg PO DAILY 30 Days #30 tab 01/05/21 07/23/24 Rx DULoxetine HCL [Cymbalta] 60 mg PO HS 05/30/24 07/23/24 History Fenofibrate [Lofibra] 160 mg PO DAILY 05/30/24 07/23/24 History Gabapentin [Neurontin] 100 mg PO HS 05/30/24 07/23/24 History INSULIN LISPRO (humaLOG) [humaLOG] See Protocol SQ ACHS 05/30/24 07/23/24 History Nitrofurantoin Monohyd/M-Cryst 100 mg PO Q12H 05/30/24 07/23/24 History [Nitrofurantoin Monohyd/M-Cryst 100 mg] cilostazoL [Pletal] 50 mg PO BID 05/30/24 07/23/24 History lisinopriL [Zestril] 20 mg PO DAILY 05/30/24 07/23/24 History Aspirin 81 mg PO BID #60 tab 05/31/24 07/23/24 Rx HYDROcodone/APAP 5-325MG [[place] 5] 1 tab PO BID PRN 07/23/24 07/23/24 History Allergies Allergy/AdvReac Type Severity Reaction Status Date / Time No Known Allergies Allergy Verified 07/23/24 08:35 Physical Exam Vitals: Vital Signs Temp Pulse Resp BP Pulse Ox 07/23/24 08:26 98.0 F 82 18 132/80 99 07/23/24 07:36 98.1 F 86 20 137/82 98 07/23/24 06:27 97.7 F 78 19 121/71 99 07/23/24 03:09 99.0 F 88 18 103/68 98 07/23/24 01:13 100.6 F H 87 17 114/74 96 07/22/24 23:53 99 17 153/82 96 07/22/24 23:50 101.2 F H 07/22/24 23:46 80 16 162/104 99 07/22/24 21:30 100.7 F H 102 H 20 141/92 98 Intake and Output 07/22/24 07/23/24 07/23/24 22:59 06:59 14:59 Output Total 300 Balance -300 Output: Urine 300 Other: Voiding Method Incontinent Weight 63.503 kg Results CBC & Chem 7: 07/23/24 09:52 07/22/24 22:04 Labs: Abnormal Lab Results - Last 24 Hours (Table) 07/22/24 07/22/24 07/22/24 Range/Units 22:04 22:04 22:04 Lymphocytes # 0.83 L (0.90-5.00) 10*3/uL Eosinophils # 0.03 L (0.04-0.35) 10*3/uL Sodium 133 L (137-145) mmol/L Glucose 379 H (74-99) mg/dL Plasma Lactic Acid Yousif 2.8 H* (0.7-2.0) mmol/L Urine Appearance (Clear) Urine Protein (Negative) Urine Glucose (UA) (Negative) Urine Blood (Negative) Ur Leukocyte Esterase (Negative) Urine RBC (0-5) /hpf Urine WBC (0-5) /hpf Ur Squamous Epith Cells (0-4) /hpf Urine Bacteria (None) /hpf Urine Mucus (None) /hpf Urine Yeast (Budding) (None) /hpf 07/22/24 07/23/24 07/23/24 Range/Units 22:51 00:27 01:52 Lymphocytes # (0.90-5.00) 10*3/uL Eosinophils # (0.04-0.35) 10*3/uL Sodium (137-145) mmol/L Glucose (74-99) mg/dL Plasma Lactic Acid Yousif 2.7 H* 2.2 H* (0.7-2.0) mmol/L Urine Appearance Turbid H (Clear) Urine Protein 1+ H (Negative) Urine Glucose (UA) 4+ H (Negative) Urine Blood Small H (Negative) Ur Leukocyte Esterase Large H (Negative) Urine RBC 7 H (0-5) /hpf Urine WBC >182 H (0-5) /hpf Ur Squamous Epith Cells 12 H (0-4) /hpf Urine Bacteria Rare H (None) /hpf Urine Mucus Rare H (None) /hpf Urine Yeast (Budding) Many H (None) /hpf 07/23/24 07/23/24 Range/Units 04:09 08:26 Lymphocytes # (0.90-5.00) 10*3/uL Eosinophils # (0.04-0.35) 10*3/uL Sodium (137-145) mmol/L Glucose (74-99) mg/dL Plasma Lactic Acid Yousif 2.4 H* 2.6 H* (0.7-2.0) mmol/L Urine Appearance (Clear) Urine Protein (Negative) Urine Glucose (UA) (Negative) Urine Blood (Negative) Ur Leukocyte Esterase (Negative) Urine RBC (0-5) /hpf Urine WBC (0-5) /hpf Ur Squamous Epith Cells (0-4) /hpf Urine Bacteria (None) /hpf Urine Mucus (None) /hpf Urine Yeast (Budding) (None) /hpf
[2024-07-23] MEDS: FENOFIBRATE 160 MG TAB PO SCH (13:31)
[2024-07-23] MEDS: HYDROcodone/APAP 5-325MG 1 EACH TAB PO PRN (15:29)
[2024-07-23 16:49] LABS: Glucose,Whole Blood 352 mg/dL (70-110)
[2024-07-23] MEDS: SODIUM CHLORIDE 0.9% 500 ML 500 ML IV ONE (17:16)
[2024-07-23] MEDS: DULoxetine HCL 60 MG CAPSULE.DR PO SCH (20:08)
[2024-07-23] MEDS: GABAPENTIN 100 MG CAP PO SCH (20:08)
[2024-07-23] MEDS: ATORVASTATIN 80 MG TAB PO SCH (20:08)
[2024-07-23 20:36] LABS: Glucose,Whole Blood 319 mg/dL (70-110)
[2024-07-24] MEDS: ACETAMINOPHEN TAB 325 MG TAB PO PRN (02:59)
[2024-07-24 06:01] LABS: Glucose,Whole Blood 377 mg/dL (70-110)
[2024-07-24 07:24] LABS: ALT 73 U/L (4-34); AST 59 U/L (14-36); African American GFR (CKD) >90 (>60 ml/min/1.73 sqM); Albumin 2.5 g/dL (3.5-5.0); Alkaline Phosphatase 113 U/L (38-126); Anion Gap 7 mmol/L; Blood Urea Nitrogen 14 mg/dL (7-17); Calcium 7.5 mg/dL (8.4-10.2); Carbon Dioxide 19 mmol/L (22-30); Chloride 106 mmol/L (98-107); Glucose 345 mg/dL (74-99); Non-African American GFR(CKD) 85 (>60 ml/min/1.73 sqM); Potassium 3.8 mmol/L (3.5-5.1); Sodium 132 mmol/L (137-145); Total Bilirubin 0.5 mg/dL (0.2-1.3); Total Protein 4.8 g/dL (6.3-8.2)
--- NOTE | 2024-07-24 11:27 | P.GSCN ---
History of Present Illness Consult date: 07/24/24 Reason for Consult: UTI, urinary incontinence History of present illness: This is a 63-year-old female admitted to the hospital with a UTI. Urology is consulted for urinary incontinence. Patient has history of diabetes that is poorly controlled and her last A1c was 10.4. She indicated for the past 2 to 3 months she has been having worsening urgency with urge incontinence, she did have some incontinence at baseline but has progressively gotten worse over the past 3 months. Denies any dysuria or gross hematuria. No previous urological surgeries. Denies any history of kidney stones or recurrent UTIs. She underwent a renal and bladder ultrasound which showed significant debris's in the bladder versus bladder mass. Of note there was also evidence of bilateral hydronephrosis. 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 , unsteady gait., see Cardiology [facility] INPT FOR LT FOOT ULCER-WAS SEEN IN WOUND CARE 03/26/23-HAS DRESSING ON FOOT Last Myocardial Infarction Date:: february 2017 History of Any Multi-Drug Resistant Organisms: None Reported Past Surgical History: Back Surgery, Cholecystectomy, Heart Catheterization With Stent, Orthopedic Surgery Additional Past Surgical History / Comment(s): Right 5th toe amputation, lumbar fusion, spinal cord stimulator in place but not working., left knee arthroscopy, EGD, PATRICIA, 3 cardiac stents, Aortoram, stent to left iliac artery. , stent right leg above the knee, right 4th toe amputation. ANGIOGRAM,m 04/11/23 left toes amputation. Past Anesthesia/Blood Transfusion Reactions: No Reported Reaction Additional Past Anesthesia/Blood Transfusion Reaction / Comm: . Date of Last Stent Placement:: 12/14/2021 Past Psychological History: Anxiety Smoking Status: Current every day smoker Past Alcohol Use History: None Reported Past Drug Use History: None Reported - Past Family History Father Family Medical History: Cancer, Liver Disease Additional Family Medical History / Comment(s): Idiopathic cirrhosis of liver, Liver Cancer. Mother Family Medical History: Coronary Artery Disease (CAD), Myocardial Infarction (SD) Additional Family Medical History / Comment(s): Multiple stents. Mother at the age of 77 or 78 from [place]. Medications and Allergies Home Medications Medication Instructions Recorded Confirmed Type Atorvastatin [Lipitor] 80 mg PO HS 06/26/16 07/23/24 History Clopidogrel [Plavix] 75 mg PO DAILY 30 Days #30 tab 01/05/21 07/23/24 Rx DULoxetine HCL [Cymbalta] 60 mg PO HS 05/30/24 07/23/24 History Fenofibrate [Lofibra] 160 mg PO DAILY 05/30/24 07/23/24 History Gabapentin [Neurontin] 100 mg PO HS 05/30/24 07/23/24 History INSULIN LISPRO (humaLOG) [humaLOG] See Protocol SQ ACHS 05/30/24 07/23/24 History Nitrofurantoin Monohyd/M-Cryst 100 mg PO Q12H 05/30/24 07/23/24 History [Nitrofurantoin Monohyd/M-Cryst 100 mg] cilostazoL [Pletal] 50 mg PO BID 05/30/24 07/23/24 History lisinopriL [Zestril] 20 mg PO DAILY 05/30/24 07/23/24 History Aspirin 81 mg PO BID #60 tab 05/31/24 07/23/24 Rx HYDROcodone/APAP 5-325MG [[place] 5] 1 tab PO BID PRN 07/23/24 07/23/24 History Allergies Allergy/AdvReac Type Severity Reaction Status Date / Time No Known Allergies Allergy Verified 07/23/24 08:35 Surgical - Exam Vital Signs Temp Pulse Resp BP Pulse Ox 100.7 F H 102 H 20 141/92 98 07/22/24 21:30 07/22/24 21:30 07/22/24 21:30 07/22/24 21:30 07/22/24 21:30 - General no distress, no pain - Eyes normal ocular movement, no pale - ENT normal nares, normal mucosa - Respiratory normal expansion, normal respiratory effort - Abdomen Abdomen: soft, tender (Lower quadrant) - Psychiatric oriented to time, oriented to person, oriented to place Results - Labs 07/23/24 09:52 07/24/24 06:12 Abnormal Lab Results - Last 24 Hours (Table) 07/23/24 07/23/24 07/23/24 Range/Units 11:06 11:31 14:07 Sodium (137-145) mmol/L Carbon Dioxide (22-30) mmol/L Glucose (74-99) mg/dL POC Glucose (mg/dL) 464 H (70-110) mg/dL Hemoglobin A1c (<=6.0) % Plasma Lactic Acid Yousif 2.1 H* 3.3 H* (0.7-2.0) mmol/L Calcium (8.4-10.2) mg/dL AST (14-36) U/L ALT (4-34) U/L Total Protein (6.3-8.2) g/dL Albumin (3.5-5.0) g/dL 07/23/24 07/23/24 07/24/24 Range/Units 16:47 20:34 05:59 Sodium (137-145) mmol/L Carbon Dioxide (22-30) mmol/L Glucose (74-99) mg/dL POC Glucose (mg/dL) 352 H 319 H 377 H (70-110) mg/dL Hemoglobin A1c (<=6.0) % Plasma Lactic Acid Yousif (0.7-2.0) mmol/L Calcium (8.4-10.2) mg/dL AST (14-36) U/L ALT (4-34) U/L Total Protein (6.3-8.2) g/dL Albumin (3.5-5.0) g/dL 07/24/24 07/24/24 Range/Units 06:12 06:12 Sodium 132 L (137-145) mmol/L Carbon Dioxide 19 L (22-30) mmol/L Glucose 345 H (74-99) mg/dL POC Glucose (mg/dL) (70-110) mg/dL Hemoglobin A1c 10.4 H (<=6.0) % Plasma Lactic Acid Yousif (0.7-2.0) mmol/L Calcium 7.5 L (8.4-10.2) mg/dL AST 59 H (14-36) U/L ALT 73 H (4-34) U/L Total Protein 4.8 L (6.3-8.2) g/dL Albumin 2.5 L (3.5-5.0) g/dL Microbiology - Last 24 Hours (Table) 07/22/24 22:51 Urine Culture - Final Urine,Voided Diabetes panel 07/24/24 07/24/24 Range/Units 06:12 06:12 Sodium 132 L (137-145) mmol/L Potassium 3.8 (3.5-5.1) mmol/L Chloride 106 (98-107) mmol/L Carbon Dioxide 19 L (22-30) mmol/L BUN 14 (7-17) mg/dL Creatinine 0.76 (0.52-1.04) mg/dL Glucose 345 H (74-99) mg/dL Hemoglobin A1c 10.4 H (<=6.0) % Calcium 7.5 L (8.4-10.2) mg/dL AST 59 H (14-36) U/L ALT 73 H (4-34) U/L Alkaline Phosphatase 113 (38-126) U/L Total Protein 4.8 L (6.3-8.2) g/dL Albumin 2.5 L (3.5-5.0) g/dL Calcium panel 07/24/24 Range/Units 06:12 Calcium 7.5 L (8.4-10.2) mg/dL Albumin 2.5 L (3.5-5.0) g/dL Pituitary panel 07/24/24 Range/Units 06:12 Sodium 132 L (137-145) mmol/L Potassium 3.8 (3.5-5.1) mmol/L Chloride 106 (98-107) mmol/L Carbon Dioxide 19 L (22-30) mmol/L BUN 14 (7-17) mg/dL Creatinine 0.76 (0.52-1.04) mg/dL Glucose 345 H (74-99) mg/dL Calcium 7.5 L (8.4-10.2) mg/dL Adrenal panel 07/24/24 Range/Units 06:12 Sodium 132 L (137-145) mmol/L Potassium 3.8 (3.5-5.1) mmol/L Chloride 106 (98-107) mmol/L Carbon Dioxide 19 L (22-30) mmol/L BUN 14 (7-17) mg/dL Creatinine 0.76 (0.52-1.04) mg/dL Glucose 345 H (74-99) mg/dL Calcium 7.5 L (8.4-10.2) mg/dL Total Bilirubin 0.5 (0.2-1.3) mg/dL AST 59 H (14-36) U/L ALT 73 H (4-34) U/L Alkaline Phosphatase 113 (38-126) U/L Total Protein 4.8 L (6.3-8.2) g/dL Albumin 2.5 L (3.5-5.0) g/dL Assessment and Plan Assessment: 63-year-old female who with history of poorly controlled diabetes, chronic urinary incontinence has worsened most recently. Ultrasound also showed evidence of debris versus mass in the bladder and bilateral hydronephrosis. At this time I discussed with her incontinence is most likely secondary to her poorly controlled diabetes. Did discuss the debris in the bladder and the hydronephrosis does require further evaluation - CT urogram to evaluate the hydronephrosis in the bladder - Ditropan 10 mg XL -Recommend improved diabetes control as this will improve her incontinence significantly
[2024-07-24 11:57] LABS: Glucose,Whole Blood 286 mg/dL (70-110)
[2024-07-24] MEDS: OXYBUTYNIN 10 MG TAB.ER.24 PO SCH (12:30)
--- NOTE | 2024-07-24 12:32 | P.PN ---
Subjective Progress Note Date: 07/24/24 patient 63-year-old lady with past medical history significant for hyperlipidemia, diabetes mellitus who presented to the hospital for dysuria for the last 2 weeks. Stated that she has been noticing that her frequency of urination has increased and she had been having pain with urination. Patient denies any flank pain. Patient denies any abdominal pain. There is complaint of urine continence, patient currently uses diapers and states that she uses up to 15 diapers a day. Stated yesterday patient was having a lot of chills and felt very cold. Patient is complaining of fever at home. There is no complaint of shortness of breath. Patient denies any palpitation. There is no complaint of orthopnea or PND. Denies any nausea, vomiting abdominal pain. Patient denies any complaint of dizziness. There is no complaint of headache. Of the symptoms, patient came to the ER Initial lab work done in the ER showed WBC 7.7, hemoglobin 13.3, platelet count 218, sodium 133, potassium 4.7, BUN 16, creatinine 0.69, lactate 2.8 calcium 9.1 UA done showed large amount of leukocyte Estrace, urine WBC more than 182 Patient admitted to internal medicine service 07/24. Patient seen examined. States she feels better. Vitals this morning temperature 99.1, heart rate 102, respiratory rate 18, blood pressure 94/71. Urology evaluated patient, ordered CT urogram REVIEW OF SYSTEMS: CONSTITUTIONAL: No fever, no malaise,. CARDIOVASCULAR: No chest pain, no palpitations, no syncope. PULMONARY: No shortness of breath, no cough, GASTROINTESTINAL: No diarrhea, no nausea, no vomiting, no abdominal pain. NEUROLOGICAL: No headaches, no weakness, PHYSICAL EXAMINATION: GENERAL: The patient is alert and oriented x3, not in any acute distress. Chronically ill looking HEENT: Pupils are round and equally reacting to light. EOMI. No scleral icterus. No conjunctival pallor. Normocephalic, atraumatic. No pharyngeal erythema. No thyromegaly. CARDIOVASCULAR: S1 and S2 present. No murmurs, rubs, or gallops. PULMONARY: Chest is clear to auscultation, no wheezing or crackles. ABDOMEN: Soft, nontender, nondistended, normoactive bowel sounds. No palpable organomegaly. MUSCULOSKELETAL: No joint swelling or deformity. EXTREMITIES: No cyanosis, clubbing, or pedal edema. NEUROLOGICAL: Gross neurological examination did not reveal any focal deficits. SKIN: No rashes. Assessment and plan Complicated UTI Lactic acidosis Hypertension Hyperlipidemia History of coronary artery disease Diabetes mellitus Monitor vital signs Monitor CBC Monitor CMP Serial lactate levels Follow-up on blood cultures Follow-up urine cultures Continue IV fluids and continue IV Rocephin Ordered CT urogram ID following Urology following Labs and medication were reviewed.. Continue same treatment. Continue with sy mptomatic treatment. Resume home medication. Monitor labs and vitals. DVT and GI prophylaxis. Further recommendations as per clinical course of the patient Dictation was produced using [employer] dictation software. please excuse any grammatical, word or spelling errors. Objective - Vital Signs Vital signs: Vital Signs Temp 99.1 F 07/24/24 08:25 Pulse 102 H 07/24/24 08:45 Resp 18 07/24/24 08:25 BP 95/59 07/24/24 08:35 Pulse Ox 94 L 07/24/24 08:25 FiO2 Intake & Output 07/23/24 07/24/24 07/24/24 18:59 06:59 18:59 Output Total 1300 Balance -1300 Output: Urine 1300 Other: Voiding Method External Catheter External Catheter Diaper External Catheter - Labs CBC & Chem 7: 07/23/24 09:52 07/24/24 06:12 Labs: Abnormal Lab Results - Last 24 Hours (Table) 07/23/24 07/23/24 07/23/24 Range/Units 14:07 16:47 20:34 Sodium (137-145) mmol/L Carbon Dioxide (22-30) mmol/L Glucose (74-99) mg/dL POC Glucose (mg/dL) 352 H 319 H (70-110) mg/dL Hemoglobin A1c (<=6.0) % Plasma Lactic Acid Yousif 3.3 H* (0.7-2.0) mmol/L Calcium (8.4-10.2) mg/dL AST (14-36) U/L ALT (4-34) U/L Total Protein (6.3-8.2) g/dL Albumin (3.5-5.0) g/dL 07/24/24 07/24/24 07/24/24 Range/Units 05:59 06:12 06:12 Sodium 132 L (137-145) mmol/L Carbon Dioxide 19 L (22-30) mmol/L Glucose 345 H (74-99) mg/dL POC Glucose (mg/dL) 377 H (70-110) mg/dL Hemoglobin A1c 10.4 H (<=6.0) % Plasma Lactic Acid Yousif (0.7-2.0) mmol/L Calcium 7.5 L (8.4-10.2) mg/dL AST 59 H (14-36) U/L ALT 73 H (4-34) U/L Total Protein 4.8 L (6.3-8.2) g/dL Albumin 2.5 L (3.5-5.0) g/dL 07/24/24 Range/Units 11:55 Sodium (137-145) mmol/L Carbon Dioxide (22-30) mmol/L Glucose (74-99) mg/dL POC Glucose (mg/dL) 286 H (70-110) mg/dL Hemoglobin A1c (<=6.0) % Plasma Lactic Acid Yousif (0.7-2.0) mmol/L Calcium (8.4-10.2) mg/dL AST (14-36) U/L ALT (4-34) U/L Total Protein (6.3-8.2) g/dL Albumin (3.5-5.0) g/dL Microbiology - Last 24 Hours (Table) 07/22/24 22:51 Urine Culture - Final Urine,Voided
--- NOTE | 2024-07-24 14:27 | CT ---
CT urogram HISTORY: Hydronephrosis, frequent urination. COMPARISON: CT abdomen pelvis dated 05/15/2017 TECHNIQUE: Multiple axial images are obtained through the abdomen and pelvis before and after the une ventful administration of nonionic IV contrast. Postcontrast delayed images were obtained. FINDINGS: There are small bilateral pleural effusions and small adjacent consolidative opacity likely compressi ve atelectasis although pneumonia is not excluded. There is surgical absence of the gallbladder There are no focal masses within the liver, pancreas, spleen or adrenal glands and there is no organo megaly. Kidneys excrete contrast promptly and symmetrically and there is no solid renal mass. There is mild b ilateral hydronephrosis. There is a nonobstructing 4.6 mm right renal calcification. There is mild di ffuse thickening of the urinary bladder wall. There are no definite focal intraluminal masses. The bowel loops are normal in caliber and there is no dilatation or obstruction. No inflammatory vick ges are identified in the bowel wall or mesentery. There is no free intraperitoneal air or fluid. There is no pelvic mass, free fluid, abscess or adenopathy. There is laminectomy in posterior fusion in the lower lumbar spine. There is marked degenerative disc disease in the upper lumbar spine.. IMPRESSION: 1. Mild bilateral hydronephrosis which appears chronic. 2. 4.6 mm nonobstructing right renal calcification. 3. Mild diffuse thickening of the urinary bladder wall without intraluminal mass. 4. Small bilateral pleural effusions and bibasilar compressive atelectasis or pneumonic infiltrates. [facility], , 07/24/2024 2:25 PM
--- NOTE | 2024-07-24 14:27 | P.CONS ---
History of Present Illness - Reason for Consult Consult date: 07/23/24 Complicated UTI Requesting physician: Escobar Laura - Chief Complaint Dysuria incontinence x 2 weeks - History of Present Illness Patient is a 63-year-old female with a past medical history significant for CVA/TIA, Diabetes Mellitus, GERD/Reflux, Hyperlipidemia, Hype rtension, Myocardial Infarction ([place]), Vascular Disorder, presenting to the ER concerning for urinary incontinence dysuria that the pain has been getting worse for the last 2 weeks and this patient apparently has been treated with multiple courses of antibiotics patient complaining of also some lower abdominal discomfort mild to moderate intensity without radiation did have some nausea but no vomiting, patient on presentation the hospital was febrile with a temperature of 101.2 F patient was tachycardic mildly hypertensive but no need for pressors not hypoxic no need for supplemental oxygen she did have white count of 7.71 creatinine 0.69 lactic acid 2.8 urine has been positive patient was started on ceftriaxone infectious was consulted for further management of antibiotic therapy Review of Systems Positive point and negatives has been mentioned in the HPI, complete review of systems was performed and all other systems are negative Past Medical History Past Medical History: CVA/TIA, Diabetes Mellitus, GERD/Reflux, Hyperlipidemia, Hypertension, Myocardial Infarction ([place]), Vascular Disorder Additional Past Medical History / Comment(s): 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 , unsteady gait., see Cardiology [facility] INPT FOR LT FOOT ULCER-WAS SEEN IN WOUND CARE 03/26/23-HAS DRESSING ON FOOT Last Myocardial Infarction Date:: february 2017 History of Any Multi-Drug Resistant Organisms: None Reported Past Surgical History: Back Surgery, Cholecystectomy, Heart Catheterization With Stent, Orthopedic Surgery Additional Past Surgical History / Comment(s): Right 5th toe amputation, lumbar fusion, spinal cord stimulator in place but not working., left knee arthroscopy, EGD, PATRICIA, 3 cardiac stents, Aortoram, stent to left iliac artery. , stent right leg above the knee, right 4th toe amputation. ANGIOGRAM,m 04/11/23 left toes amputation. Past Anesthesia/Blood Transfusion Reactions: No Reported Reaction Additional Past Anesthesia/Blood Transfusion Reaction / Comm: . Date of Last Stent Placement:: 12/14/2021 Past Psychological History: Anxiety Smoking Status: Current every day smoker Past Alcohol Use History: None Reported Past Drug Use History: None Reported - Past Family History Father Family Medical History: Cancer, Liver Disease Additional Family Medical History / Comment(s): Idiopathic cirrhosis of liver, Liver Cancer. Mother Family Medical History: Coronary Artery Disease (CAD), Myocardial Infarction ([place]) Additional Family Medical History / Comment(s): Multiple stents. Mother at the age of 77 or 78 from [place]. Medications and Allergies Home Medications Medication Instructions Recorded Confirmed Type Atorvastatin [Lipitor] 80 mg PO HS 06/26/16 07/23/24 History Clopidogrel [Plavix] 75 mg PO DAILY 30 Days #30 tab 01/05/21 07/23/24 Rx DULoxetine HCL [Cymbalta] 60 mg PO HS 05/30/24 07/23/24 History Fenofibrate [Lofibra] 160 mg PO DAILY 05/30/24 07/23/24 History Gabapentin [Neurontin] 100 mg PO HS 05/30/24 07/23/24 History INSULIN LISPRO (humaLOG) [humaLOG] See Protocol SQ ACHS 05/30/24 07/23/24 History Nitrofurantoin Monohyd/M-Cryst 100 mg PO Q12H 05/30/24 07/23/24 History [Nitrofurantoin Monohyd/M-Cryst 100 mg] cilostazoL [Pletal] 50 mg PO BID 05/30/24 07/23/24 History lisinopriL [Zestril] 20 mg PO DAILY 05/30/24 07/23/24 History Aspirin 81 mg PO BID #60 tab 05/31/24 07/23/24 Rx HYDROcodone/APAP 5-325MG [Ster[place] 5] 1 tab PO BID PRN 07/23/24 07/23/24 History Allergies Allergy/AdvReac Type Severity Reaction Status Date / Time No Known Allergies Allergy Verified 07/23/24 08:35 Physical Exam Vitals: Vital Signs Temp Pulse Resp BP Pulse Ox 07/23/24 08:26 98.0 F 82 18 132/80 99 07/23/24 07:36 98.1 F 86 20 137/82 98 07/23/24 06:27 97.7 F 78 19 121/71 99 07/23/24 03:09 99.0 F 88 18 103/68 98 07/23/24 01:13 100.6 F H 87 17 114/74 96 07/22/24 23:53 99 17 153/82 96 07/22/24 23:50 101.2 F H 07/22/24 23:46 80 16 162/104 99 07/22/24 21:30 100.7 F H 102 H 20 141/92 98 Intake and Output 07/22/24 07/23/24 07/23/24 22:59 06:59 14:59 Output Total 300 Balance -300 Output: Urine 300 Other: Voiding Method Incontinent Weight 63.503 kg GENERAL DESCRIPTION: Middle-age female lying in bed, no distress. No tachypnea or accessory muscle of respiration use. HEENT: Shows Pallor , no scleral icterus. Oral mucous membrane is dry. NECK: Trachea central, no thyromegaly. LUNGS: Unlabored breathing. Clear to auscultation anteriorly. No wheeze or crackle. HEART: S1, S2, regular rate and rhythm. No loud murmur ABDOMEN: Soft, no tenderness , EXTREMITIES: No edema of feet. SKIN: No rash, no masses palpable. NEUROLOGICAL: The patient is awake, alert, mood and affect normal. Results CBC & Chem 7: 07/23/24 09:52 07/24/24 06:12 Labs: Abnormal Lab Results - Last 24 Hours (Table) 07/22/24 07/22/24 07/22/24 Range/Units 22:04 22:04 22:04 Hct (37.2-46.3) % Lymphocytes # 0.83 L (0.90-5.00) 10*3/uL Eosinophils # 0.03 L (0.04-0.35) 10*3/uL Sodium 133 L (137-145) mmol/L Glucose 379 H (74-99) mg/dL POC Glucose (mg/dL) (70-110) mg/dL Plasma Lactic Acid Yousif 2.8 H* (0.7-2.0) mmol/L C-Reactive Protein (<1.0) mg/dL Urine Appearance (Clear) Urine Protein (Negative) Urine Glucose (UA) (Negative) Urine Blood (Negative) Ur Leukocyte Esterase (Negative) Urine RBC (0-5) /hpf Urine WBC (0-5) /hpf Ur Squamous Epith Cells (0-4) /hpf Urine Bacteria (None) /hpf Urine Mucus (None) /hpf Urine Yeast (Budding) (None) /hpf 07/22/24 07/23/24 07/23/24 Range/Units 22:51 00:27 01:52 Hct (37.2-46.3) % Lymphocytes # (0.90-5.00) 10*3/uL Eosinophils # (0.04-0.35) 10*3/uL Sodium (137-145) mmol/L Glucose (74-99) mg/dL POC Glucose (mg/dL) (70-110) mg/dL Plasma Lactic Acid Yousif 2.7 H* 2.2 H* (0.7-2.0) mmol/L C-Reactive Protein (<1.0) mg/dL Urine Appearance Turbid H (Clear) Urine Protein 1+ H (Negative) Urine Glucose (UA) 4+ H (Negative) Urine Blood Small H (Negative) Ur Leukocyte Esterase Large H (Negative) Urine RBC 7 H (0-5) /hpf Urine WBC >182 H (0-5) /hpf Ur Squamous Epith Cells 12 H (0-4) /hpf Urine Bacteria Rare H (None) /hpf Urine Mucus Rare H (None) /hpf Urine Yeast (Budding) Many H (None) /hpf 07/23/24 07/23/24 07/23/24 Range/Units 04:09 08:26 09:52 Hct 36.5 L (37.2-46.3) % Lymphocytes # 0.53 L (0.90-5.00) 10*3/uL Eosinophils # 0.00 L (0.04-0.35) 10*3/uL Sodium (137-145) mmol/L Glucose (74-99) mg/dL POC Glucose (mg/dL) (70-110) mg/dL Plasma Lactic Acid Yousif 2.4 H* 2.6 H* (0.7-2.0) mmol/L C-Reactive Protein (<1.0) mg/dL Urine Appearance (Clear) Urine Protein (Negative) Urine Glucose (UA) (Negative) Urine Blood (Negative) Ur Leukocyte Esterase (Negative) Urine RBC (0-5) /hpf Urine WBC (0-5) /hpf Ur Squamous Epith Cells (0-4) /hpf Urine Bacteria (None) /hpf Urine Mucus (None) /hpf Urine Yeast (Budding) (None) /hpf 07/23/24 07/23/24 07/23/24 Range/Units 09:52 11:06 11:31 Hct (37.2-46.3) % Lymphocytes # (0.90-5.00) 10*3/uL Eosinophils # (0.04-0.35) 10*3/uL Sodium (137-145) mmol/L Glucose (74-99) mg/dL POC Glucose (mg/dL) 464 H (70-110) mg/dL Plasma Lactic Acid Yousif 2.1 H* (0.7-2.0) mmol/L C-Reactive Protein 4.5 H (<1.0) mg/dL Urine Appearance (Clear) Urine Protein (Negative) Urine Glucose (UA) (Negative) Urine Blood (Negative) Ur Leukocyte Esterase (Negative) Urine RBC (0-5) /hpf Urine WBC (0-5) /hpf Ur Squamous Epith Cells (0-4) /hpf Urine Bacteria (None) /hpf Urine Mucus (None) /hpf Urine Yeast (Budding) (None) /hpf Assessment and Plan (1) Sepsis Current Visit: Yes Status: Acute Code(s): A41.9 - SEPSIS, UNSPECIFIED ORGANISM SNOMED Code(s): 81007199 (2) UTI (urinary tract infection) Current Visit: Yes Status: Acute Code(s): N39.0 - URINARY TRACT INFECTION, SITE NOT SPECIFIED SNOMED Code(s): 18369084 Plan: 1patient presented the hospital with sepsis in this patient who did have fever tachycardia elevated lactic acid bradycardia./Sepsis source likely urinary has a patient did have significant urinary symptom and positive UA and likely from enteric gram-negative pathogen 2patient to be treated empirically with Rocephin 2 g daily while waiting for the culture to finalize We will follow on clinical condition and cultures to further adjust medication if needed Thank you for this consultation we will follow the patient along with you Dictation was produced using [employer] dictation software. please excuse any grammatical, word or spelling errors. Time with Patient: Greater than 30
--- NOTE | 2024-07-24 14:29 | P.PN ---
Subjective Progress Note Date: 07/24/24 Principal diagnosis: Reason for follow-up is UTI Patient is a 63-year-old female with a past medical history significant for CVA/TIA, Diabetes Mellitus, GERD/Reflux, Hyperlipidemia, Hypertension, Myocardial Infarction ([place]), Vascular Disorder, presenting to the ER concerning for urinary incontinence dysuria has been diagnosed with sepsis secondary to UTI. On today's evaluation that is 07/24/2024,the patient remains to be afebrile, patient is on room air not requiring supplemental oxygen and denies any shortness of breath no chest pain or cough.Patient denies having any nausea or vomiting, no abdominal pain and no diarrhea has been reported. No CBC was done today, creatinine 0.76 blood urine cultures currently pending Objective - Vital Signs Vital signs: Vital Signs Temp 99.1 F 07/24/24 08:25 Pulse 102 H 07/24/24 08:45 Resp 18 07/24/24 08:25 BP 95/59 07/24/24 08:35 Pulse Ox 94 L 07/24/24 08:25 FiO2 Intake & Output 07/23/24 07/24/24 07/24/24 18:59 06:59 18:59 Output Total 1300 Balance -1300 Output: Urine 1300 Other: Voiding Method External Catheter External Catheter Diaper External Catheter - Exam GENERAL DESCRIPTION: Middle-age female lying in bed in no distress RESPIRATORY SYSTEM: Unlabored breathing , decreased breath sounds at bases HEART: S1 S2 regular rate and rhythm , ABDOMEN: Soft , no tenderness - Labs CBC & Chem 7: 07/23/24 09:52 07/24/24 06:12 Labs: Abnormal Lab Results - Last 24 Hours (Table) 07/23/24 07/23/24 07/23/24 Range/Units 14:07 16:47 20:34 Sodium (137-145) mmol/L Carbon Dioxide (22-30) mmol/L Glucose (74-99) mg/dL POC Glucose (mg/dL) 352 H 319 H (70-110) mg/dL Hemoglobin A1c (<=6.0) % Plasma Lactic Acid Yousif 3.3 H* (0.7-2.0) mmol/L Calcium (8.4-10.2) mg/dL AST (14-36) U/L ALT (4-34) U/L Total Protein (6.3-8.2) g/dL Albumin (3.5-5.0) g/dL 07/24/24 07/24/24 07/24/24 Range/Units 05:59 06:12 06:12 Sodium 132 L (137-145) mmol/L Carbon Dioxide 19 L (22-30) mmol/L Glucose 345 H (74-99) mg/dL POC Glucose (mg/dL) 377 H (70-110) mg/dL Hemoglobin A1c 10.4 H (<=6.0) % Plasma Lactic Acid Yousif (0.7-2.0) mmol/L Calcium 7.5 L (8.4-10.2) mg/dL AST 59 H (14-36) U/L ALT 73 H (4-34) U/L Total Protein 4.8 L (6.3-8.2) g/dL Albumin 2.5 L (3.5-5.0) g/dL 07/24/24 Range/Units 11:55 Sodium (137-145) mmol/L Carbon Dioxide (22-30) mmol/L Glucose (74-99) mg/dL POC Glucose (mg/dL) 286 H (70-110) mg/dL Hemoglobin A1c (<=6.0) % Plasma Lactic Acid Yousif (0.7-2.0) mmol/L Calcium (8.4-10.2) mg/dL AST (14-36) U/L ALT (4-34) U/L Total Protein (6.3-8.2) g/dL Albumin (3.5-5.0) g/dL Microbiology - Last 24 Hours (Table) 07/23/24 00:27 Blood Culture - Preliminary Blood 07/22/24 22:51 Urine Culture - Final Urine,Voided Assessment and Plan (1) Sepsis Current Visit: Yes Status: Acute Code(s): A41.9 - SEPSIS, UNSPECIFIED ORGANISM SNOMED Code(s): 09594461 (2) UTI (urinary tract infection) Current Visit: Yes Status: Acute Code(s): N39.0 - URINARY TRACT INFECTION, SITE NOT SPECIFIED SNOMED Code(s): 91940374 Plan: 1patient presented the hospital with sepsis in this patient who did have fever tachycardia elevated lactic acid bradycardia./Sepsis source likely urinary has a patient did have significant urinary symptom and positive UA and likely from enteric gram-negative pathogen 2patient did have resolution of her fever we will continue with Rocephin while waiting for the culture to finalize CT urogram has been ordered by urology results will be followed Dictation was produced using [employer] dictation software. please excuse any grammatical, word or spelling errors. Time with Patient: Less than 30
[2024-07-24 17:11] LABS: Glucose,Whole Blood 263 mg/dL (70-110)
[2024-07-24 20:57] LABS: Glucose,Whole Blood 261 mg/dL (70-110)
[2024-07-24] MEDS: ALPRAZolam 0.5 MG TAB PO STA (22:34)
[2024-07-25 07:44] LABS: Glucose,Whole Blood 312 mg/dL (70-110)
[2024-07-25 12:06] LABS: Glucose,Whole Blood 253 mg/dL (70-110)
--- NOTE | 2024-07-25 12:46 | P.PN ---
Subjective Progress Note Date: 07/25/24 patient 63-year-old lady with past medical history significant for hyperlipidemia, diabetes mellitus who presented to the hospital for dysuria for the last 2 weeks. Stated that she has been noticing that her frequency of urination has increased and she had been having pain with urination. Patient denies any flank pain. Patient denies any abdominal pain. There is complaint of urine continence, patient currently uses diapers and states that she uses up to 15 diapers a day. Stated yesterday patient was having a lot of chills and felt very cold. Patient is complaining of fever at home. There is no complaint of shortness of breath. Patient denies any palpitation. There is no complaint of orthopnea or PND. Denies any nausea, vomiting abdominal pain. Patient denies any complaint of dizziness. There is no complaint of headache. Of the symptoms, patient came to the ER Initial lab work done in the ER showed WBC 7.7, hemoglobin 13.3, platelet count 218, sodium 133, potassium 4.7, BUN 16, creatinine 0.69, lactate 2.8 calcium 9.1 UA done showed large amount of leukocyte Estrace, urine WBC more than 182 Patient admitted to internal medicine service 07/24. Patient seen examined. States she feels better. Vitals this morning temperature 99.1, heart rate 102, respiratory rate 18, blood pressure 94/71. Urology evaluated patient, ordered CT urogram 07/25. Patient seen and examined. States she feels slightly better, still complaining lethargy and weakness. CT urogram done showed mild bilateral hydronephrosis, 4.6 mm nonobstructing right renal calculi calcification REVIEW OF SYSTEMS: CONSTITUTIONAL: No fever, no malaise,. CARDIOVASCULAR: No chest pain, no palpitations, no syncope. PULMONARY: No shortness of breath, no cough, GASTROINTESTINAL: No diarrhea, no nausea, no vomiting, no abdominal pain. NEUROLOGICAL: No headaches, no weakness, PHYSICAL EXAMINATION: GENERAL: The patient is alert and oriented x3, not in any acute distress. Chronically ill looking HEENT: Pupils are round and equally reacting to light. EOMI. No scleral icterus. No conjunctival pallor. Normocephalic, atraumatic. No pharyngeal erythema. No thyromegaly. CARDIOVASCULAR: S1 and S2 present. No murmurs, rubs, or gallops. PULMONARY: Chest is clear to auscultation, no wheezing or crackles. ABDOMEN: Soft, nontender, nondistended, normoactive bowel sounds. No palpable organomegaly. MUSCULOSKELETAL: No joint swelling or deformity. EXTREMITIES: No cyanosis, clubbing, or pedal edema. NEUROLOGICAL: Gross neurological examination did not reveal any focal deficits. SKIN: No rashes. Assessment and plan Complicated UTI Lactic acidosis Hypertension Hyperlipidemia History of coronary artery disease Diabetes mellitus Monitor vital signs Monitor CBC Monitor CMP Serial lactate levels Follow-up on blood cultures Follow-up urine cultures Continue IV fluids and continue IV Rocephin CT urogram done showed mild bilateral hydronephrosis, 4.6 mm nonobstructing right renal calculi calcification ID following Urology following Labs and medication were reviewed.. Continue same treatment. Continue with symptomatic treatment. Resume home medication. Monitor labs and vitals. DVT and GI prophylaxis. Further recommendations as per clinical course of the patient Dictation was produced using [employer] dictation software. please excuse any grammatical, word or spelling errors. Objective - Vital Signs Vital signs: Vital Signs Temp 99.1 F 07/25/24 07:00 Pulse 110 H 07/25/24 07:00 Resp 15 07/25/24 07:00 BP 151/93 07/25/24 07:00 Pulse Ox 95 07/25/24 07:00 FiO2 Intake & Output 07/24/24 07/25/24 07/25/24 18:59 06:59 18:59 Intake Total 2600 Output Total 1700 300 Balance 900 -300 Intake: Intake, IV Titration 1800 Amount Sodium Chloride 0.9% 1, 1800 000 ml @ 130 mls/hr IV . Q7H42M [facility] Rx#:[id number] Oral 800 Output: Urine 1700 300 Other: Voiding Method Diaper External Catheter Diaper External Catheter Incontinent # Voids 1 # Bowel Movements 0 - Labs CBC & Chem 7: 07/23/24 09:52 07/24/24 06:12 Labs: Abnormal Lab Results - Last 24 Hours (Table) 07/24/24 07/24/24 07/25/24 Range/Units 17:09 20:52 07:42 POC Glucose (mg/dL) 263 H 261 H 312 H (70-110) mg/dL 07/25/24 Range/Units 12:05 POC Glucose (mg/dL) 253 H (70-110) mg/dL Microbiology - Last 24 Hours (Table) 07/23/24 00:27 Blood Culture - Preliminary Blood 07/22/24 22:51 Urine Culture - Final Urine,Voided
[2024-07-25 12:47] VITALS: BMI 21.2
--- NOTE | 2024-07-25 12:59 | P.PN ---
Subjective No acute overnight event, CT urogram showed no evidence of bladder mass, there is evidence of bilateral hydronephrosis down to the ureter. Denies any flank pain, Objective - Vital Signs Vital signs: Vital Signs Temp 99.1 F 07/25/24 07:00 Pulse 110 H 07/25/24 07:00 Resp 15 07/25/24 07:00 BP 151/93 07/25/24 07:00 Pulse Ox 95 07/25/24 07:00 FiO2 Intake & Output 07/24/24 07/25/24 07/25/24 18:59 06:59 18:59 Intake Total 2600 Output Total 1700 300 Balance 900 -300 Weight 63.503 kg Intake: Intake, IV Titration 1800 Amount Sodium Chloride 0.9% 1, 1800 000 ml @ 130 mls/hr IV . Q7H42M [facility] Rx#:[id number] Oral 800 Output: Urine 1700 300 Other: Voiding Method Diaper External Catheter Diaper External Catheter Incontinent # Voids 1 # Bowel Movements 0 - Gastrointestinal General gastrointestinal: Present: soft. Absent: distended - Psychiatric Psychiatric: Present: A&O x's 3 - Labs CBC & Chem 7: 07/23/24 09:52 07/24/24 06:12 Labs: Abnormal Lab Results - Last 24 Hours (Table) 07/24/24 07/24/24 07/25/24 Range/Units 17:09 20:52 07:42 POC Glucose (mg/dL) 263 H 261 H 312 H (70-110) mg/dL 07/25/24 Range/Units 12:05 POC Glucose (mg/dL) 253 H (70-110) mg/dL Microbiology - Last 24 Hours (Table) 07/23/24 00:27 Blood Culture - Preliminary Blood 07/22/24 22:51 Urine Culture - Final Urine,Voided Assessment and Plan Assessment: 63-year-old female who with history of poorly controlled diabetes, chronic urinary incontinence has worsened most recently. Ultrasound also showed evidenc e of debris versus mass in the bladder and bilateral hydronephrosis. CT urogram showed no bladder mass, evidence of hydronephrosis with ureter dilated down to the bladder. Most likely this is secondary to neurogenic bladder. I did discuss with her she will require a cystoscopy and urodynamic as an outpatient. Discussed also her poorly controlled diabetes is contributing to her urinary symptoms. - Ditropan 10 mg XL -Recommend improved diabetes control as this will improve her incontinence si gnificantly - Follow-up as an outpatient, will need cystoscopy and urodynamic as an outpatient
--- NOTE | 2024-07-25 14:57 | P.PN ---
Subjective Progress Note Date: 07/25/24 Principal diagnosis: Reason for follow-up is UTI Patient is a 63-year-old female with a past medical history significant for CVA/TIA, Diabetes Mellitus, GERD/Reflux, Hyperlipidemia, Hypertension, Myocardial Infarction ([place]), Vascular Disorder, presenting to the ER concerning for urinary incontinence dysuria has been diagnosed with sepsis secondary to UTI. On today's evaluation that is 07/25/2024, the patient continues to be afebrile, the patient is on room air and breathing comfortably, the Pt denies having any chest pain or cough, the patient denies having any abdominal pain no vomiting or any diarrhea. No new lab has been obtained today blood urine cultures so far negative Objective - Vital Signs Vital signs: Vital Signs Temp 99.1 F 07/25/24 07:00 Pulse 110 H 07/25/24 07:00 Resp 15 07/25/24 07:00 BP 151/93 07/25/24 07:00 Pulse Ox 95 07/25/24 07:00 FiO2 Intake & Output 07/24/24 07/25/24 07/25/24 18:59 06:59 18:59 Intake Total 2600 Output Total 1700 300 Balance 900 -300 Intake: Intake, IV Titration 1800 Amount Sodium Chloride 0.9% 1, 1800 000 ml @ 130 mls/hr IV . Q7H42M [facility] Rx#:[id number] Oral 800 Output: Urine 1700 300 Other: Voiding Method Diaper External Catheter Diaper External Catheter Incontinent # Voids 1 # Bowel Movements 0 - Exam GENERAL DESCRIPTION: Middle-age female lying in bed in no distress RESPIRATORY SYSTEM: Unlabored breathing , decreased breath sounds at bases HEART: S1 S2 regular rate and rhythm , ABDOMEN: Soft , no tenderness - Labs CBC & Chem 7: 07/23/24 09:52 07/24/24 06:12 Labs: Abnormal Lab Results - Last 24 Hours (Table) 07/24/24 07/24/24 07/24/24 Range/Units 11:55 17:09 20:52 POC Glucose (mg/dL) 286 H 263 H 261 H (70-110) mg/dL 07/25/24 Range/Units 07:42 POC Glucose (mg/dL) 312 H (70-110) mg/dL Microbiology - Last 24 Hours (Table) 07/23/24 00:27 Blood Culture - Preliminary Blood 07/22/24 22:51 Urine Culture - Final Urine,Voided Assessment and Plan (1) Sepsis Current Visit: Yes Status: Acute Code(s): A41.9 - SEPSIS, UNSPECIFIED ORGANISM SNOMED Code(s): 08246516 (2) UTI (urinary tract infection) Current Visit: Yes Status: Acute Code(s): N39.0 - URINARY TRACT INFECTION, SITE NOT SPECIFIED SNOMED Code(s): 11207633 Plan: 1patient presented the hospital with sepsis in this patient who did have fever tachycardia elevated lactic acid bradycardia./Sepsis source likely urinary has a patient did have significant urinary symptom and positive UA and likely from enteric gram-negative pathogen 2patient did have resolution of her fever, CT urogram did not show any bladder mass did shows evidence of hydronephrosis with the patient being seen by urology 3we will repeat a UA for now continue with Rocephin if the repeat UA is negative to discontinue antibiotics Dictation was produced using [employer] dictation software. please excuse any grammatical, word or spelling errors. Time with Patient: Less than 30
--- NOTE | 2024-07-25 15:05 | CDI ---
Documentation Clarification Form Date: 07/25/2024 01:55:13 PM From: Samantha Felder RN, CCDS Phone: [phone] Admit Date: 07/23/2024 07:13:00 AM Patient Name: Mary Jo Caldwell Visit Number: [id number] Discharge Date: ATTENTION: The Clinical Documentation Specialists (CDI) and [facility] Coding Staff appreciate your assistance in clarifying documentation. Please respond to the clarification below the line at the bottom and electronically sign. The CDI & [facility] Coding staff will review the response and follow-up if needed. Please note: Queries are made part of the Legal Health Record. If you have any questions, please contact the author of this message via ITS. DoctorRaquel Laura Sepsis is documented in the ID Consult and progress notes which may lack sufficient clinical evidence/support in the medical record. Additional clarification is requested. History/Risk Factors: Diabetes Mellitus, Neurogenic bladder, Clinical Indicators: 63-year-old female having worsening urine urgency and incontinence wears a diaper. 07/22 (21:30) VS 141/92 102 20 100.7 98% RA, (23.50) 101.2 07/23 (01:13) VS 114/74 87 17 96% RA 07/23 Labs: WBC 5.57 07/22 UA: Leukocyte Esterase Large, WBC > 182, Urine yeast Many 07/22 Urine culture-Final: Apparent skin and/or genital masha 07/22 Blood Culture Preliminary She underwent a renal and bladder ultrasound which showed significant debris in bladder and evidence of bilateral hydronephrosis. 07/24 ID Consult and progress note: presenting to the ER concerning for urinary incontinence dysuria has been diagnosed with sepsis secondary to UTI Treatment: Rocephin 2 GM IVPB Once 07/22>2 gm IVPB Q 24 HRS 07/23-07/24 Bactrim Ds 1 each PO once 6/d After work up and study, please clarify which diagnosis is most appropriate for this patient? [ x] Sepsis ruled out [ ] Sepsis is a valid diagnosis as evidence by the following: (Please add rationale): [ ] Other, please specify [ ] Unable to determine (Template Last Reviewed: February 2023) MTDD
[2024-07-25 16:56] LABS: Appearance,Urine Cloudy (Clear); Bacteria,Urine Occasional /hpf; Bilirubin,Urine Negative (Negative); Blood,Urine Small (Negative); Color,Urine Colorless; Glucose,Urine (UA) 3+ (Negative); Ketones,Urine Negative (Negative); Leukocyte Esterase,Urine Large (Negative); Mucus,Urine Rare /hpf; Nitrite,Urine Negative (Negative); Protein,Urine 1+ (Negative); RBC,Urine 16 /hpf (0-5); Specific Gravity,Urine 1.013 (1.001-1.035); Squamous Epithelial Cell,Urine 19 /hpf (0-4); Urobilinogen,Urine <2.0 mg/dL (<2.0); WBC,Urine >182 /hpf (0-5)
[2024-07-25 17:29] LABS: Glucose,Whole Blood 208 mg/dL (70-110)
[2024-07-25 21:11] LABS: Glucose,Whole Blood 326 mg/dL (70-110)
[2024-07-26 06:39] LABS: Glucose,Whole Blood 311 mg/dL (70-110)
[2024-07-26 09:16] LABS: Basophils # (A) 0.03 X 10*3/uL (0.00-0.10); Basophils % (A) 0.4 %; Eosinophils # (A) 0.06 X 10*3/uL (0.04-0.35); Eosinophils % (A) 0.9 %; HCT 27.8 % (37.2-46.3); HGB 9.6 g/dL (12.0-15.0); Lymphocytes # (A) 1.04 X 10*3/uL (0.90-5.00); Lymphocytes % (A) 15.5 %; MCH 28.5 pg (27.0-32.0); MCHC 34.5 g/dL (32.0-37.0); MCV 82.5 FL (80.0-97.0); Mean Platelet Volume 11.1 FL (9.5-12.2); Monocytes # (A) 0.69 X 10*3/uL (0.20-1.00); Monocytes % (A) 10.3 %; NRBC Per 100 WBC 0 X 10*3/uL (0.00-0.01); Neutrophils # (A) 4.85 X 10*3/uL (1.80-7.70); Neutrophils % (A) 72.5 %; Platelet Count 164 X 10*3/uL (140-440); RBC 3.37 X 10*6/uL (4.10-5.20); RDW 13.4 % (11.5-14.5)
[2024-07-26 09:37] LABS: ALT 34 U/L (8-44); AST 19 U/L (13-35); Albumin 2.6 g/dL (3.8-4.9); Albumin/Globulin Ratio 1.37 Ratio (1.60-3.17); Alkaline Phosphatase 95 U/L (41-126); Blood Urea Nitrogen 7.2 mg/dL (9.0-27.0); Calcium 7.6 mg/dL (8.7-10.3); Carbon Dioxide 19.3 mmol/L (21.6-31.8); Chloride 105 mmol/L (96-109); Globulin 1.9 g/dL (1.6-3.3); Glucose 295 mg/dL (70-110); Potassium 3.9 mmol/L (3.5-5.5); Sodium 134 mmol/L (135-145); Total Bilirubin 0.3 mg/dL (0.3-1.2); Total Protein 4.5 g/dL (6.2-8.2)
[2024-07-26 12:20] LABS: Glucose,Whole Blood 360 mg/dL (70-110)
[2024-07-26 17:36] LABS: Glucose,Whole Blood 249 mg/dL (70-110)
--- NOTE | 2024-07-26 20:14 | P.PN ---
Subjective Progress Note Date: 07/26/24 63-year-old lady with past medical history significant for hyperlipidemia, diabetes mellitus who presented to the hospital for dysuria for the last 2 weeks. Stated that she has been noticing that her frequency of urination has increased and she had been having pain with urination. Patient denies any flank pain. Patient denies any abdominal pain. There is complaint of urine continence, patient currently uses diapers and states that she uses up to 15 diapers a day. Stated yesterday patient was having a lot of chills and felt very cold. Patient is complaining of fever at home. There is no complaint of shortness of breath. Patient denies any palpitation. There is no complaint of orthopnea or PND. Denies any nausea, vomiting abdominal pain. Patient denies any complaint of dizziness. There is no complaint of headache. Of the symptoms, patient came to the ER Initial lab work done in the ER showed WBC 7.7, hemoglobin 13.3, platelet count 218, sodium 133, potassium 4.7, BUN 16, creatinine 0.69, lactate 2.8 calcium 9.1 UA done showed large amount of leukocyte Estrace, urine WBC more than 182 Patient admitted to internal medicine service Objective - Vital Signs Vital signs: Vital Signs Temp 98.6 F 07/26/24 08:00 Pulse 93 07/26/24 08:00 Resp 16 07/26/24 08:00 BP 95/61 07/26/24 08:00 Pulse Ox 94 L 07/26/24 08:00 FiO2 Intake & Output 07/25/24 07/26/24 07/26/24 18:59 06:59 18:59 Output Total 700 1500 Balance -700 -1500 Weight 63.503 kg Output: Urine 700 1500 Other: Voiding Method Diaper Diaper Diaper Incontinent Incontinent External Catheter External Catheter External Catheter # Voids 2 - Exam GENERAL: The patient is alert and oriented x3, not in any acute distress. Chronically ill looking HEENT: Pupils are round and equally reacting to light. EOMI. No scleral icterus. No conjunctival pallor. Normocephalic, atraumatic. No pharyngeal erythema. No thyromegaly. CARDIOVASCULAR: S1 and S2 present. No murmurs, rubs, or gallops. PULMONARY: Chest is clear to auscultation, no wheezing or crackles. ABDOMEN: Soft, nontender, nondistended, normoactive bowel sounds. No palpable organomegaly. MUSCULOSKELETAL: No joint swelling or deformity. EXTREMITIES: No cyanosis, clubbing, or pedal edema. NEUROLOGICAL: Gross neurological examination did not reveal any focal deficits. SKIN: No rashes. - Labs CBC & Chem 7: 07/26/24 05:58 07/26/24 05:58 Labs: Abnormal Lab Results - Last 24 Hours (Table) 07/25/24 07/25/24 07/25/24 Range/Units 16:28 17:26 21:09 RBC (4.10-5.20) X 10*6/uL Hgb (12.0-15.0) g/dL Hct (37.2-46.3) % Sodium (135-145) mmol/L Carbon Dioxide (21.6-31.8) mmol/L BUN (9.0-27.0) mg/dL Glucose (70-110) mg/dL POC Glucose (mg/dL) 208 H 326 H (70-110) mg/dL Calcium (8.7-10.3) mg/dL Total Protein (6.2-8.2) g/dL Albumin (3.8-4.9) g/dL Albumin/Globulin Ratio (1.60-3.17) Ratio Urine Appearance Cloudy H (Clear) Urine Protein 1+ H (Negative) Urine Glucose (UA) 3+ H (Negative) Urine Blood Small H (Negative) Ur Leukocyte Esterase Large H (Negative) Urine RBC 16 H (0-5) /hpf Urine WBC >182 H (0-5) /hpf Ur Squamous Epith Cells 19 H (0-4) /hpf Urine Bacteria Occasional H (None) /hpf Urine Mucus Rare H (None) /hpf 07/26/24 07/26/24 07/26/24 Range/Units 05:58 05:58 06:38 RBC 3.37 L (4.10-5.20) X 10*6/uL Hgb 9.6 L (12.0-15.0) g/dL Hct 27.8 L (37.2-46.3) % Sodium 134 L (135-145) mmol/L Carbon Dioxide 19.3 L (21.6-31.8) mmol/L BUN 7.2 L (9.0-27.0) mg/dL Glucose 295 H (70-110) mg/dL POC Glucose (mg/dL) 311 H (70-110) mg/dL Calcium 7.6 L (8.7-10.3) mg/dL Total Protein 4.5 L (6.2-8.2) g/dL Albumin 2.6 L (3.8-4.9) g/dL Albumin/Globulin Ratio 1.37 L (1.60-3.17) Ratio Urine Appearance (Clear) Urine Protein (Negative) Urine Glucose (UA) (Negative) Urine Blood (Negative) Ur Leukocyte Esterase (Negative) Urine RBC (0-5) /hpf Urine WBC (0-5) /hpf Ur Squamous Epith Cells (0-4) /hpf Urine Bacteria (None) /hpf Urine Mucus (None) /hpf 07/26/24 Range/Units 12:20 RBC (4.10-5.20) X 10*6/uL Hgb (12.0-15.0) g/dL Hct (37.2-46.3) % Sodium (135-145) mmol/L Carbon Dioxide (21.6-31.8) mmol/L BUN (9.0-27.0) mg/dL Glucose (70-110) mg/dL POC Glucose (mg/dL) 360 H (70-110) mg/dL Calcium (8.7-10.3) mg/dL Total Protein (6.2-8.2) g/dL Albumin (3.8-4.9) g/dL Albumin/Globulin Ratio (1.60-3.17) Ratio Urine Appearance (Clear) Urine Protein (Negative) Urine Glucose (UA) (Negative) Urine Blood (Negative) Ur Leukocyte Esterase (Negative) Urine RBC (0-5) /hpf Urine WBC (0-5) /hpf Ur Squamous Epith Cells (0-4) /hpf Urine Bacteria (None) /hpf Urine Mucus (None) /hpf Microbiology - Last 24 Hours (Table) 07/23/24 00:27 Blood Culture - Preliminary Blood Assessment and Plan Assessment: Complicated UTI Lactic acidosis Hypertension Hyperlipidemia History of coronary artery disease Diabetes mellitus Monitor vital signs Monitor CBC Monitor CMP Serial lactate levels Follow-up on blood cultures Follow-up urine cultures Continue IV fluids and continue IV Rocephin CT urogram done showed mild bilateral hydronephrosis, 4.6 mm nonobstructing right renal calculi calcification ID following Urology following Labs and medication were reviewed.. Continue same treatment. Continue with symptomatic treatment. Resume home medication. Monitor labs and vitals. DVT and GI prophylaxis. Further recommendations as per clinical course of the patient
[2024-07-26 20:23] LABS: Glucose,Whole Blood 208 mg/dL (70-110)
[2024-07-26] MEDS: METOCLOPRAMIDE 5 MG/ML 2 ML VIAL IVP STA (20:56)
[2024-07-26] MEDS: MELATONIN 3 MG TABLET PO SCH (23:16)
[2024-07-27 05:59] LABS: Glucose,Whole Blood 228 mg/dL (70-110)
[2024-07-27 09:19] LABS: BUN/Creat Ratio 12.17 Ratio (12.00-20.00); Blood Urea Nitrogen 7.3 mg/dL (9.0-27.0); Calcium 7.7 mg/dL (8.7-10.3); Carbon Dioxide 22.6 mmol/L (21.6-31.8); Chloride 103 mmol/L (96-109); Glucose 209 mg/dL (70-110); Potassium 3.6 mmol/L (3.5-5.5); Sodium 135 mmol/L (135-145)
[2024-07-27 09:55] LABS: Basophils # (A) 0.02 X 10*3/uL (0.00-0.10); Basophils % (A) 0.2 %; Eosinophils # (A) 0.04 X 10*3/uL (0.04-0.35); Eosinophils % (A) 0.4 %; HCT 26.8 % (37.2-46.3); HGB 9.4 g/dL (12.0-15.0); Lymphocytes # (A) 1.56 X 10*3/uL (0.90-5.00); Lymphocytes % (A) 17.3 %; MCH 29.3 pg (27.0-32.0); MCHC 35.1 g/dL (32.0-37.0); MCV 83.5 FL (80.0-97.0); Mean Platelet Volume 10.4 FL (9.5-12.2); Monocytes # (A) 0.91 X 10*3/uL (0.20-1.00); Monocytes % (A) 10.1 %; NRBC Per 100 WBC 0 X 10*3/uL (0.00-0.01); Neutrophils # (A) 6.43 X 10*3/uL (1.80-7.70); Neutrophils % (A) 71.4 %; Platelet Count 200 X 10*3/uL (140-440); RBC 3.21 X 10*6/uL (4.10-5.20); RDW 13.1 % (11.5-14.5); WBC 9.01 X 10*3/uL (4.50-10.00)
[2024-07-27 12:36] LABS: Glucose,Whole Blood 298 mg/dL (70-110)
[2024-07-27 17:36] LABS: Glucose,Whole Blood 324 mg/dL (70-110)
--- NOTE | 2024-07-27 17:52 | P.PN ---
Subjective Progress Note Date: 07/27/24 Principal diagnosis: Reason for follow-up is UTI Patient is a 63-year-old female with a past medical history significant for CVA/TIA, Diabetes Mellitus, GERD/Reflux, Hyperlipidemia, Hypertension, Myocardial Infarction ([place]), Vascular Disorder, presenting to the ER concerning for urinary incontinence dysuria has been diagnosed with sepsis secondary to UTI. On today's evaluation that is 07/27/2023, patient did have a temperature of 98 F this morning and breathing comfortably on room air patient was sleeping no distress apparently the episode of vomiting this morning but no diarrhea has been reported Patient white count 6.70, creatinine 0.6 urine culture have been negative Objective - Vital Signs Vital signs: Vital Signs Temp 98.6 F 07/26/24 08:00 Pulse 93 07/26/24 08:00 Resp 16 07/26/24 08:00 BP 95/61 07/26/24 08:00 Pulse Ox 94 L 07/26/24 08:00 FiO2 Intake & Output 07/25/24 07/26/24 07/26/24 18:59 06:59 18:59 Output Total 700 1500 Balance -700 -1500 Weight 63.503 kg Output: Urine 700 1500 Other: Voiding Method Diaper Diaper Diaper Incontinent Incontinent External Catheter External Catheter External Catheter # Voids 2 - Exam GENERAL DESCRIPTION: Middle-age female lying in bed in no distress RESPIRATORY SYSTEM: Unlabored breathing , decreased breath sounds at bases HEART: S1 S2 regular rate and rhythm , ABDOMEN: Soft , no tenderness - Labs CBC & Chem 7: 07/27/24 05:16 07/27/24 05:16 Labs: Abnormal Lab Results - Last 24 Hours (Table) 07/25/24 07/25/24 07/25/24 Range/Units 16:28 17:26 21:09 RBC (4.10-5.20) X 10*6/uL Hgb (12.0-15.0) g/dL Hct (37.2-46.3) % Sodium (135-145) mmol/L Carbon Dioxide (21.6-31.8) mmol/L BUN (9.0-27.0) mg/dL Glucose (70-110) mg/dL POC Glucose (mg/dL) 208 H 326 H (70-110) mg/dL Calcium (8.7-10.3) mg/dL Total Protein (6.2-8.2) g/dL Albumin (3.8-4.9) g/dL Albumin/Globulin Ratio (1.60-3.17) Ratio Urine Appearance Cloudy H (Clear) Urine Protein 1+ H (Negative) Urine Glucose (UA) 3+ H (Negative) Urine Blood Small H (Negative) Ur Leukocyte Esterase Large H (Negative) Urine RBC 16 H (0-5) /hpf Urine WBC >182 H (0-5) /hpf Ur Squamous Epith Cells 19 H (0-4) /hpf Urine Bacteria Occasional H (None) /hpf Urine Mucus Rare H (None) /hpf 07/26/24 07/26/24 07/26/24 Range/Units 05:58 05:58 06:38 RBC 3.37 L (4.10-5.20) X 10*6/uL Hgb 9.6 L (12.0-15.0) g/dL Hct 27.8 L (37.2-46.3) % Sodium 134 L (135-145) mmol/L Carbon Dioxide 19.3 L (21.6-31.8) mmol/L BUN 7.2 L (9.0-27.0) mg/dL Glucose 295 H (70-110) mg/dL POC Glucose (mg/dL) 311 H (70-110) mg/dL Calcium 7.6 L (8.7-10.3) mg/dL Total Protein 4.5 L (6.2-8.2) g/dL Albumin 2.6 L (3.8-4.9) g/dL Albumin/Globulin Ratio 1.37 L (1.60-3.17) Ratio Urine Appearance (Clear) Urine Protein (Negative) Urine Glucose (UA) (Negative) Urine Blood (Negative) Ur Leukocyte Esterase (Negative) Urine RBC (0-5) /hpf Urine WBC (0-5) /hpf Ur Squamous Epith Cells (0-4) /hpf Urine Bacteria (None) /hpf Urine Mucus (None) /hpf 07/26/24 Range/Units 12:20 RBC (4.10-5.20) X 10*6/uL Hgb (12.0-15.0) g/dL Hct (37.2-46.3) % Sodium (135-145) mmol/L Carbon Dioxide (21.6-31.8) mmol/L BUN (9.0-27.0) mg/dL Glucose (70-110) mg/dL POC Glucose (mg/dL) 360 H (70-110) mg/dL Calcium (8.7-10.3) mg/dL Total Protein (6.2-8.2) g/dL Albumin (3.8-4.9) g/dL Albumin/Globulin Ratio (1.60-3.17) Ratio Urine Appearance (Clear) Urine Protein (Negative) Urine Glucose (UA) (Negative) Urine Blood (Negative) Ur Leukocyte Esterase (Negative) Urine RBC (0-5) /hpf Urine WBC (0-5) /hpf Ur Squamous Epith Cells (0-4) /hpf Urine Bacteria (None) /hpf Urine Mucus (None) /hpf Microbiology - Last 24 Hours (Table) 07/23/24 00:27 Blood Culture - Preliminary Blood Assessment and Plan (1) Sepsis Current Visit: Yes Status: Acute Code(s): A41.9 - SEPSIS, UNSPECIFIED ORGANISM SNOMED Code(s): 95082973 (2) UTI (urinary tract infection) Current Visit: Yes Status: Acute Code(s): N39.0 - URINARY TRACT INFECTION, SITE NOT SPECIFIED SNOMED Code(s): 89005923 Plan: 1patient presented the hospital with sepsis in this patient who did have fever tachycardia elevated lactic acid bradycardia./Sepsis source likely urinary has a patient did have significant urinary symptom and positive UA and likely from enteric gram-negative pathogen 2patient did have resolution of her fever, CT urogram did not show any bladder mass did shows evidence of hydronephrosis 3repeat UA has been positive however culture has been negative or not to continue Rocephin and monitor clinical course closely Dictation was produced using [employer] dictation software. please excuse any grammatical, word or spelling errors. Time with Patient: Less than 30
--- NOTE | 2024-07-27 17:53 | P.PN ---
Subjective Progress Note Date: 07/27/24 Principal diagnosis: Reason for follow-up is UTI Patient is a 63-year-old female with a past medical history significant for CVA/TIA, Diabetes Mellitus, GERD/Reflux, Hyperlipidemia, Hypertension, Myocardial Infarction ([place]), Vascular Disorder, presenting to the ER concerning for urinary incontinence dysuria has been diagnosed with sepsis secondary to UTI. On today's evaluation that is 07/27/2024, Patient is afebrile patient is currently on room air and denies having any shortness of breath, the patient denies any chest pain or cough, the patient denies any nausea vomiting did not have any abdominal pain and no diarrhea rather patient is constipated no bowel movement for the last few days. Patient white count 9.01, creatinine 0.6 Objective - Vital Signs Vital signs: Vital Signs Temp 98.0 F 07/27/24 13:53 Pulse 93 07/27/24 13:53 Resp 17 07/27/24 13:53 BP 96/58 07/27/24 13:53 Pulse Ox 93 L 07/27/24 13:53 FiO2 Intake & Output 07/26/24 07/27/24 07/27/24 18:59 06:59 18:59 Intake Total 540 Output Total 650 950 Balance -650 -410 Intake: Oral 540 Output: Urine 650 950 Other: Voiding Method Diaper Diaper Diaper External Catheter External Catheter Incontinent External Catheter # Voids 1 # Bowel Movements 1 - Exam GENERAL DESCRIPTION: Middle-age female lying in bed in no distress RESPIRATORY SYSTEM: Unlabored breathing , decreased breath sounds at bases HEART: S1 S2 regular rate and rhythm , ABDOMEN: Soft , no tenderness - Labs CBC & Chem 7: 07/27/24 05:16 07/27/24 05:16 Labs: Abnormal Lab Results - Last 24 Hours (Table) 07/26/24 07/27/24 07/27/24 Range/Units 20:22 05:16 05:16 RBC 3.21 L (4.10-5.20) X 10*6/uL Hgb 9.4 L (12.0-15.0) g/dL Hct 26.8 L (37.2-46.3) % Immature Gran # 0.05 H (0.00-0.04) X 10*3/uL BUN 7.3 L (9.0-27.0) mg/dL Glucose 209 H (70-110) mg/dL POC Glucose (mg/dL) 208 H (70-110) mg/dL Calcium 7.7 L (8.7-10.3) mg/dL 07/27/24 07/27/24 07/27/24 Range/Units 05:58 12:32 17:32 RBC (4.10-5.20) X 10*6/uL Hgb (12.0-15.0) g/dL Hct (37.2-46.3) % Immature Gran # (0.00-0.04) X 10*3/uL BUN (9.0-27.0) mg/dL Glucose (70-110) mg/dL POC Glucose (mg/dL) 228 H 298 H 324 H (70-110) mg/dL Calcium (8.7-10.3) mg/dL Microbiology - Last 24 Hours (Table) 07/25/24 16:28 Urine Culture - Final Urine,Voided Assessment and Plan (1) Sepsis Current Visit: Yes Status: Acute Code(s): A41.9 - SEPSIS, UNSPECIFIED O RGANISM SNOMED Code(s): 35570265 (2) UTI (urinary tract infection) Current Visit: Yes Status: Acute Code(s): N39.0 - URINARY TRACT INFECTION, SITE NOT SPECIFIED SNOMED Code(s): 22797116 (3) Pressure ulcer, heel, right, unstageable Current Visit: Yes Status: Acute Code(s): L89.610 - PRESSURE ULCER OF RIGHT HEEL, UNSTAGEABLE SNOMED Code(s): 40356717495738052 Plan: 1patient presented the hospital with sepsis in this patient who did have fever tachycardia elevated lactic acid bradycardia./Sepsis source likely urinary has a patient did have significant urinary symptom and positive UA and likely from enteric gram-negative pathogen 2patient did have resolution of her fever, CT urogram did not show any bladder mass did shows evidence of hydronephrosis 3repeat UA has been positive however culture has been negative for now continue with Rocephin and will transition to short course of oral Ceftin on discharge 4right heel unstageable pressure ulcer advised to keep the area of the pressure Dictation was produced using [employer] software. please excuse any grammatical, word or spelling errors. Time with Patient: Less than 30
--- NOTE | 2024-07-27 18:08 | P.PN ---
Subjective Progress Note Date: 07/27/24 63-year-old lady with past medical history significant for hyperlipidemia, diabetes mellitus who presented to the hospital for dysuria for the last 2 weeks. Stated that she has been noticing that her frequency of urination has increased and she had been having pain with urination. Patient denies any flank pain. Patient denies any abdominal pain. There is complaint of urine continence, patient currently uses diapers and states that she uses up to 15 diapers a day. Stated yesterday patient was having a lot of chills and felt very cold. Patient is complaining of fever at home. There is no complaint of shortness of breath. Patient denies any palpitation. There is no complaint of orthopnea or PND. Denies any nausea, vomiting abdominal pain. Patient denies any complaint of dizziness. There is no complaint of headache. Of the symptoms, patient came to the ER Initial lab work done in the ER showed WBC 7.7, hemoglobin 13.3, platelet count 218, sodium 133, potassium 4.7, BUN 16, creatinine 0.69, lactate 2.8 calcium 9.1 UA done showed large amount of leukocyte Estrace, urine WBC more than 182 Patient admitted to internal medicine service 07/27/2024 Patient is seen and evaluated resting comfortably in bed; remains afebrile patient is currently on room air; denies any nausea vomiting did not have any abdominal pain and no diarrhea rather patient is constipated no bowel movement for the last few days. Vital signs are reviewed and stable temperature of 98, pulse 93, respirations 17 and blood pressure 96/58, Blood work reveals WBC of 9.01, hemoglobin of 9.4 and platelet count of 200, sodium 135, potassium 3.6, BUN/creatinine of 7.3/0.6 patient presented the hospital with sepsis in this patient who did have fever tachycardia elevated lactic acid bradycardia./Sepsis source likely urinary tract patient did have resolution of her fever, CT urogram did not show any bladder mass did shows evidence of hydronephrosis repeat UA has been positive however culture has been negative for now continue with Rocephin and will transition to short course of oral Ceftin on discharge right heel unstageable pressure ulcer advised to keep the area of the pressure Objective - Vital Signs Vital signs: Vital Signs Temp 98.3 F 07/27/24 07:22 Pulse 94 07/27/24 07:22 Resp 18 06/08/25 07:22 BP 139/82 07/27/24 07:22 Pulse Ox 94 L 07/27/24 08:02 FiO2 Intake & Output 07/26/24 07/27/24 07/27/24 18:59 06:59 18:59 Intake Total 540 Output Total 650 950 Balance -650 -410 Intake: Oral 540 Output: Urine 650 950 Other: Voiding Method Diaper Diaper Diaper External Catheter External Catheter Incontinent External Catheter # Voids 1 # Bowel Movements 1 - Exam GENERAL: The patient is alert and oriented x3, not in any acute distress. Chronically ill looking HEENT: Pupils are round and equally reacting to light. EOMI. No scleral icterus. No conjunctival pallor. Normocephalic, atraumatic. No pharyngeal erythema. No thyromegaly. CARDIOVASCULAR: S1 and S2 present. No murmurs, rubs, or gallops. PULMONARY: Chest is clear to auscultation, no wheezing or crackles. ABDOMEN: Soft, nontender, nondistended, normoactive bowel sounds. No palpable organomegaly. MUSCULOSKELETAL: No joint swelling or deformity. EXTREMITIES: No cyanosis, clubbing, or pedal edema. NEUROLOGICAL: Gross neurological examination did not reveal any focal deficits. SKIN: No rashes. - Labs CBC & Chem 7: 07/27/24 05:16 07/27/24 05:16 Labs: Abnormal Lab Results - Last 24 Hours (Table) 07/26/24 07/26/24 07/27/24 Range/Units 17:35 20:22 05:16 RBC 3.21 L (4.10-5.20) X 10*6/uL Hgb 9.4 L (12.0-15.0) g/dL Hct 26.8 L (37.2-46.3) % Immature Gran # 0.05 H (0.00-0.04) X 10*3/uL BUN (9.0-27.0) mg/dL Glucose (70-110) mg/dL POC Glucose (mg/dL) 249 H 208 H (70-110) mg/dL Calcium (8.7-10.3) mg/dL 07/27/24 07/27/24 07/27/24 Range/Units 05:16 05:58 12:32 RBC (4.10-5.20) X 10*6/uL Hgb (12.0-15.0) g/dL Hct (37.2-46.3) % Immature Gran # (0.00-0.04) X 10*3/uL BUN 7.3 L (9.0-27.0) mg/dL Glucose 209 H (70-110) mg/dL POC Glucose (mg/dL) 228 H 298 H (70-110) mg/dL Calcium 7.7 L (8.7-10.3) mg/dL Microbiology - Last 24 Hours (Table) 07/25/24 16:28 Urine Culture - Final Urine,Voided 07/23/24 00:27 Blood Culture - Preliminary Blood Assessment and Plan Assessment: Complicated UTI Lactic acidosis Hypertension Hyperlipidemia History of coronary artery disease Diabetes mellitus Monitor vital signs Monitor CBC Monitor CMP Serial lactate levels Follow-up on blood cultures Follow-up urine cultures Continue IV fluids and continue IV Rocephin CT urogram done showed mild bilateral hydronephrosis, 4.6 mm nonobstructing right renal calculi calcification ID following Urology following Labs and medication were reviewed.. Continue same treatment. Continue with symptomatic treatment. Resume home medication. Monitor labs and vitals. DVT and GI prophylaxis. Further recommendations as per clinical course of the patient
[2024-07-27 20:26] LABS: Glucose,Whole Blood 246 mg/dL (70-110)
[2024-07-28 06:09] LABS: Glucose,Whole Blood 260 mg/dL (70-110)
[2024-07-28 08:13] LABS: BUN/Creat Ratio 11.83 Ratio (12.00-20.00); Blood Urea Nitrogen 7.1 mg/dL (9.0-27.0); Calcium 7.9 mg/dL (8.7-10.3); Carbon Dioxide 23.1 mmol/L (21.6-31.8); Chloride 100 mmol/L (96-109); Glucose 233 mg/dL (70-110); Potassium 3.6 mmol/L (3.5-5.5); Sodium 135 mmol/L (135-145)
--- NOTE | 2024-07-28 12:04 | XR ---
EXAMINATION TYPE: XR abdomen 1V DATE OF EXAM: 07/28/2024 11:59 AM COMPARISON: 08/10/2014 CLINICAL INDICATION: Female, 63 years old with history of abdominal pain, TECHNIQUE: XR abdomen 1V view(s) obtained. FINDINGS: Prominent bowel gases to the colon. There are some nonspecific small bowel loops with air. No mass ef fect is evident. No significant fecal retention. Psoas margins are normal. No organomegaly is present. Postsurgical changes are present lower lumbar spine. Degenerative disc changes are in the mid lumbar spine. IMPRESSION: 1. Prominent bowel gas. No suspicious obstruction. Follow-up can be performed as clinically indicated . [facility], , 07/28/2024 12:02 PM
[2024-07-28 12:32] LABS: Glucose,Whole Blood 268 mg/dL (70-110)
[2024-07-28] MEDS: PANTOPRAZOLE 40 MG/10 ML VIAL IVP SCH (12:40)
[2024-07-28] MEDS: LACTULOSE 20 GM/30 ML CUP PO SCH (12:40)
--- NOTE | 2024-07-28 14:02 | P.GSCN ---
History of Present Illness Consult date: 07/28/24 History of present illness: CHIEF COMPLAINT: Urinary tract symptoms HISTORY OF PRESENT ILLNESS: This is a 63-year-old female who presented with dysuria and urinary incontinence was found to have evidence of a UTI and hydronephrosis. She is on antibiotics followed by infectious disease and urology. Patient also has poorly controlled diabetes. Patient had increased abdominal discomfort and distention. Medicine service did order abdominal x-ray which had reported prominent bowel gas and consulted surgical service. Patient reports that her abdominal distention has come down. But she does report that she had been vomiting yesterday. Her appetite is decreased. She is having a large amount of flatus. She reports her last bowel movement was July 21. But nursing staff did report a bowel movement yesterday. Patient does have a known history of cholecystectomy. She also has history of peripheral vascular disease and is on blood thinners Plavix and Pletal. Patient also reports a history of IBS. Patient does have limited mobility due to the ulcers on her feet. 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 , unsteady gait., see Cardiology [facility] INPT FOR LT FOOT ULCER-WAS SEEN IN WOUND CARE 03/26/23-HAS DRESSING ON FOOT PAST SURGICAL HISTORY: Back Surgery, Cholecystectomy, Heart Catheterization With Stent, Orthopedic Surgery, Right 5th toe amputation, lumbar fusion, spinal cord stimulator in place but not working., left knee arthroscopy, EGD, PATRICIA, 3 cardiac stents, Aortoram, stent to left iliac artery. , stent right leg above the knee, right 4th toe amputation. ANGIOGRAM,m 04/11/23 left toes amputation. MEDICATIONS: See below ALLERGIES: See below SOCIAL HISTORY: No illicit drug use. REVIEW OF SYSTEMS: CONSTITUTIONAL: Denies fever or chills. HEENT: Denies blurred vision, vision changes, or eye pain. Denies hemoptysis CARDIOVASCULAR: Denies chest pain or pressure. RESPIRATORY: No shortness of breath. GASTROINTESTINAL: See HPI for pertinent findings HEMATOLOGIC: Denies bleeding disorders. GENITOURINARY: Denies any blood in urine or increased urinary frequency. SKIN: Denies pruitis. Denies rash. PHYSICAL EXAM: VITAL SIGNS: Reviewed GENERAL: Well-developed in no acute distress. HEENT: No sclera icterus. Extraocular movements grossly intact. Moist buccal mucosa. Head is atraumatic, normocephalic. No nasal drainage. ABDOMEN: Soft. Mildly distended. Mild tenderness suprapubic area NEUROLOGIC: Alert and oriented. Cranial nerves II through XII grossly intact. LABORATORY DATA: WBC 9.01 Hgb 9.4 platelets 200 Sodium 135 potassium 3.6 creatinine 0.6 IMAGING: Abdominal x-ray reports prominent bowel gas. No suspicious obstruction. ASSESSMENT: 1. Abdominal pain with abdominal distention 2. UTI 3. Constipation PLAN: - CT scan abdomen pelvis with oral and IV contrast ordered for evaluation of abdominal pain and abdominal distention - Agree with lactulose - Add simethicone gas drops for prominent bowel gas noted on x-ray - Medicine service downgraded patient to n.p.o. - Continue to monitor Physician Insulation Cupola Operator note has been reviewed by physician. Signing provider agrees with the documented findings, assessment, and plan of care. 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 , unsteady gait., see Cardiology [facility] INPT FOR LT FOOT ULCER-WAS SEEN IN WOUND CARE 03/26/23-HAS DRESSING ON FOOT Last Myocardial Infarction Date:: february 2017 History of Any Multi-Drug Resistant Organisms: None Reported Past Surgical History: Back Surgery, Cholecystectomy, Heart Catheterization With Stent, Orthopedic Surgery Additional Past Surgical History / Comment(s): Right 5th toe amputation, lumbar fusion, spinal cord stimulator in place but not working., left knee arthroscopy, EGD, PATRICIA, 3 cardiac stents, Aortoram, stent to left iliac artery. , stent right leg above the knee, right 4th toe amputation. ANGIOGRAM,m 04/11/23 left toes amputation. Past Anesthesia/Blood Transfusion Reactions: No Reported Reaction Additional Past Anesthesia/Blood Transfusion Reaction / Comm: . Date of Last Stent Placement:: 12/14/2021 Past Psychological History: Anxiety Smoking Status: Current every day smoker Past Alcohol Use History: None Reported Past Drug Use History: None Reported - Past Family History Father Family Medical History: Cancer, Liver Disease Additional Family Medical History / Comment(s): Idiopathic cirrhosis of liver, Liver Cancer. Mother Family Medical History: Coronary Artery Disease (CAD), Myocardial Infarction ([place]) Additional Family Medical History / Comment(s): Multiple stents. Mother at the age of 77 or 78 from [place]. Medications and Allergies Home Medications Medication Instructions Recorded Confirmed Type Atorvastatin [Lipitor] 80 mg PO HS 06/26/16 07/23/24 History Clopidogrel [Plavix] 75 mg PO DAILY 30 Days #30 tab 01/05/21 07/23/24 Rx DULoxetine HCL [Cymbalta] 60 mg PO HS 05/30/24 07/23/24 History Fenofibrate [Lofibra] 160 mg PO DAILY 05/30/24 07/23/24 History Gabapentin [Neurontin] 100 mg PO HS 05/30/24 07/23/24 History INSULIN LISPRO (humaLOG) [humaLOG] See Protocol SQ ACHS 05/30/24 07/23/24 History Nitrofurantoin Monohyd/M-Cryst 100 mg PO Q12H 05/30/24 07/23/24 History [Nitrofurantoin Monohyd/M-Cryst 100 mg] cilostazoL [Pletal] 50 mg PO BID 05/30/24 07/23/24 History lisinopriL [Zestril] 20 mg PO DAILY 05/30/24 07/23/24 History Aspirin 81 mg PO BID #60 tab 05/31/24 07/23/24 Rx HYDROcodone/APAP 5-325MG [Bowman 5] 1 tab PO BID PRN 07/23/24 07/23/24 History Allergies Allergy/AdvReac Type Severity Reaction Status Date / Time No Known Allergies Allergy Verified 07/23/24 08:35 Surgical - Exam Vital Signs Temp Pulse Resp BP Pulse Ox 100.7 F H 102 H 20 141/92 98 07/22/24 21:30 07/22/24 21:30 07/22/24 21:30 07/22/24 21:30 07/22/24 21:30 Results - Labs 07/27/24 05:16 07/28/24 03:59 Abnormal Lab Results - Last 24 Hours (Table) 07/27/24 07/27/24 07/28/24 Range/Units 17:32 20:24 03:59 BUN 7.1 L (9.0-27.0) mg/dL BUN/Creatinine Ratio 11.83 L (12.00-20.00) Ratio Glucose 233 H (70-110) mg/dL POC Glucose (mg/dL) 324 H 246 H (70-110) mg/dL Calcium 7.9 L (8.7-10.3) mg/dL 07/28/24 07/28/24 Range/Units 06:08 12:24 BUN (9.0-27.0) mg/dL BUN/Creatinine Ratio (12.00-20.00) Ratio Glucose (70-110) mg/dL POC Glucose (mg/dL) 260 H 268 H (70-110) mg/dL Calcium (8.7-10.3) mg/dL Microbiology - Last 24 Hours (Table) 07/23/24 00:27 Blood Culture - Final Blood 07/25/24 16:28 Urine Culture - Final Urine,Voided Diabetes panel 07/28/24 Range/Units 03:59 Sodium 135 (135-145) mmol/L Potassium 3.6 (3.5-5.5) mmol/L Chloride 100 (96-109) mmol/L Carbon Dioxide 23.1 (21.6-31.8) mmol/L BUN 7.1 L (9.0-27.0) mg/dL Creatinine 0.6 (0.6-1.5) mg/dL Glucose 233 H (70-110) mg/dL Calcium 7.9 L (8.7-10.3) mg/dL Calcium panel 07/28/24 Range/Units 03:59 Calcium 7.9 L (8.7-10.3) mg/dL Pituitary panel 07/28/24 Range/Units 03:59 Sodium 135 (135-145) mmol/L Potassium 3.6 (3.5-5.5) mmol/L Chloride 100 (96-109) mmol/L Carbon Dioxide 23.1 (21.6-31.8) mmol/L BUN 7.1 L (9.0-27.0) mg/dL Creatinine 0.6 (0.6-1.5) mg/dL Glucose 233 H (70-110) mg/dL Calcium 7.9 L (8.7-10.3) mg/dL Adrenal panel 07/28/24 Range/Units 03:59 Sodium 135 (135-145) mmol/L Potassium 3.6 (3.5-5.5) mmol/L Chloride 100 (96-109) mmol/L Carbon Dioxide 23.1 (21.6-31.8) mmol/L BUN 7.1 L (9.0-27.0) mg/dL Creatinine 0.6 (0.6-1.5) mg/dL Glucose 233 H (70-110) mg/dL Calcium 7.9 L (8.7-10.3) mg/dL
[2024-07-28] MEDS: IOPAMIDOL CONTRAST (ORAL USE) VIAL PO PRN (14:26)
[2024-07-28] MEDS: SIMETHICONE 40 MG/0.6 ML DROPS 2,000 MG/30 ML BOTTLE PO SCH (15:33)
--- NOTE | 2024-07-28 17:35 | CT ---
EXAMINATION TYPE: CT abdomen pelvis w con DATE OF EXAM: 07/28/2024 5:17 PM COMPARISON: None. CLINICAL INDICATION: Female, 63 years old with history of abdominal pain, distention, Abdominal pain, distention TECHNIQUE: Axial images were obtained from above the diaphragm to the pubic rami in the axial plane a t 5 mm thick sections. Reconstructed images are reviewed on the computer in the coronal plane. CONTRAST: 100ml mL of Isovue 300. Study performed with Oral Contrast DLP: 1077.5 mGycm, Automated exposure control for dose reduction was used. FINDINGS: Limited CT sections are obtained the lung bases. Small bilateral pleural effusions are present. Cor onary artery calcification is present. Mild adjacent compressive atelectasis is present. CT ABDOMEN: Liver: Normal Spleen: Normal Pancreas: Mildly atrophic Adrenal glands: Left adrenal gland has mild prominence of 1.4 cm. Right adrenal gland is normal. Gallbladder: Surgically absent Kidneys: No masses are evident. There is a moderate right hydronephrosis. Hydroureter extends to the ureterovesical junction. No obstructing etiology is identified. There is wall thickening in the urina ry bladder. Mild left hydronephrosis and hydroureter is present extending to the urinary bladder. No cysts are present. No renal stones are evident. Aorta: Vascular calcification is within the aorta. Inferior vena cava: Normal. CT PELVIS: Loops of bowel within the abdomen and pelvis are normal. There are prominent fluid-filled small bowel loops. Oral contrast extends to the proximal ileum. Fecal debris and fluid is through the colon. Col on is not dilated. Correlate for ileus. There are loops of bowel which are incompletely distended or lack oral contrast limiting their evaluation. Appendix: Normal as visualized. Urinary bladder: Diffuse urinary bladder wall thickening is present. Genitourinary structures: Uterus is normal. Adnexa are normal. Osseous structures: No suspicious lytic or sclerotic lesions. Postsurgical changes are within the low er lumbar spine IMPRESSION: 1. Bilateral hydronephrosis greater on the right. Hydroureter is extensive urinary bladder. Urinary bladder has thickened wall. Additional workup for cystitis or urinary bladder neoplasm is recommended . 2. Mild left adrenal gland prominence. 3. Small bilateral pleural effusions with adjacent compressive atelectasis. [facility], Workstation: [email or web address], 07/28/2024 5:32 PM
[2024-07-28 17:37] LABS: Glucose,Whole Blood 229 mg/dL (70-110)
[2024-07-28 19:27] LABS: Glucose,Whole Blood 221 mg/dL (70-110)
--- NOTE | 2024-07-29 06:05 | P.PN ---
Subjective Progress Note Date: 07/28/24 63-year-old lady with past medical history significant for hyperlipidemia, diabetes mellitus who presented to the hospital for dysuria for the last 2 weeks. Stated that she has been noticing that her frequency of urination has increased and she had been having pain with urination. Patient denies any flank pain. Patient denies any abdominal pain. There is complaint of urine continence, patient currently uses diapers and states that she uses up to 15 diapers a day. Stated yesterday patient was having a lot of chills and felt very cold. Patient is complaining of fever at home. There is no complaint of shortness of breath. Patient denies any palpitation. There is no complaint of orthopnea or PND. Denies any nausea, vomiting abdominal pain. Patient denies any complaint of dizziness. There is no complaint of headache. Of the symptoms, patient came to the ER Initial lab work done in the ER showed WBC 7.7, hemoglobin 13.3, platelet count 218, sodium 133, potassium 4.7, BUN 16, creatinine 0.69, lactate 2.8 calcium 9.1 UA done showed large amount of leukocyte Estrace, urine WBC more than 182 Patient admitted to internal medicine service 07/27/2024 Patient is seen and evaluated resting comfortably in bed; remains afebrile patient is currently on room air; denies any nausea vomiting did not have any abdominal pain and no diarrhea rather patient is constipated no bowel movement for the last few days. Vital signs are reviewed and stable temperature of 98, pulse 93, respirations 17 and blood pressure 96/58, Blood work reveals WBC of 9.01, hemoglobin of 9.4 and platelet count of 200, sodium 135, potassium 3.6, BUN/creatinine of 7.3/0.6 patient presented the hospital with sepsis in this patient who did have fever tachycardia elevated lactic acid bradycardia./Sepsis source likely urinary tract patient did have resolution of her fever, CT urogram did not show any bladder mass did shows evidence of hydronephrosis repeat UA has been positive however culture has been negative for now continue with Rocephin and will transition to short course of oral Ceftin on discharge right heel unstageable pressure ulcer advised to keep the area of the pressure 07/28/2024 Patient is seen in follow-up today reports having extreme nausea with some vomiting and unable to tolerate much oral intake. Patient also noted to be constipated and reports has not had a bowel movement in a few days. Will obtain an abdominal x-ray also make the patient n.p.o. and continue with Protonix IV twice daily. Will consult general surgery for evaluation and appreciate input and recommendations. Patient is continued on antibiotics with infectious disease following will likely transition to oral antibiotics on discharge. Patient also noted to have a right heel unstageable wound that is continued with local wound care. Review of systems: Constitutional: No reports of fatigue, fever, or chills Cardiovascular: No reports of chest pain or palpitations Respiratory: No reports of shortness of breath or cough GI: No reports of nausea, vomiting, or diarrhea : No reports of dysuria or retention Neurovascular: No reports of weakness or numbness All medications have been reviewed Physical exam: Gen: This is a 63-year-old female who is awake, alert and oriented x 2-3, baseline, well-developed, elderly appearing, thin built HEENT: Head is atraumatic, normocephalic. Pupils equal, round. Sclerae is anicteric. NECK: Supple. No JVD. No lymphadenopathy. No thyromegaly. LUNGS: Diminished breath sounds bilaterally otherwise clear to auscultation. No wheezes or rhonchi. No intercostal retractions. HEART: S1, S2 are muffled ABDOMEN: Soft. Distended bowel sounds are hypoactive. No masses. Mild tenderness. EXTREMITIES: No pedal edema. No calf tenderness. NEUROLOGICAL: Patient is awake, alert and oriented x2-3. Cranial nerves 2 through 12 are grossly intact. Diffusely weak Assessment: Complicated UTI, present on admission Right heel unstageable pressure ulcer, on admission Abdominal pain with distention, concern for ileus Lactic acidosis on admission, improved Hypertension Hyperlipidemia History of coronary artery disease Diabetes mellitus, type II uncontrolled with hyperglycemia Mild bilateral hydronephrosis with a nonobstructing renal calculi on the right measuring 4.6 mm GI prophylaxis DVT prophylaxis Full code Plan: Patient being followed by infectious disease maintained on antibiotics. Will transition to oral Ceftin on discharge Urology following recommending outpatient cystoscopy and urodynamics Patient having some abdominal pain and vomiting and has not had a bowel movement in some time, consult to general surgery and also obtaining an abdominal x-ray. Will make the patient n.p.o. for now and continue with IV Protonix twice daily Follow-up on repeat labs in the a.m. and will continue to monitor closely Due to multiple complex medical issues, overall prognosis is guarded Recommend PT/OT therapy evaluation Will discuss with consultations regarding discharge planning once stabilized The impression and plan of care has been dictated by Consuelo Combs, Nurse Practitioner as directed. Dr. Migel MD I have performed a history and examination and MDM of this patient, discussed the same with the dictator, and agree with the dictator's assessment and plan as written ,documented as a scribe. Based on total visit time, I have performed more than 50% of the visit. Objective - Vital Signs Vital signs: Vital Signs Temp 98.6 F 07/28/24 07:12 Pulse 96 07/28/24 07:12 Resp 19 07/28/24 07:51 BP 106/69 07/28/24 07:12 Pulse Ox 93 L 07/28/24 07:12 FiO2 Intake & Output 07/27/24 07/28/24 07/28/24 18:59 06:59 18:59 Intake Total 0 Output Total 600 300 Balance -600 -300 Intake: Intake, IV Titration 0 Amount cefTRIAXone 2 gm In 0 Sodium Chloride 0.9% 50 ml @ 100 mls/hr IVPB Q24H [facility] Rx#:[id number] Output: Urine 600 300 Other: Voiding Method Diaper Diaper Diaper Incontinent Incontinent Incontinent External Catheter External Catheter External Catheter - Labs CBC & Chem 7: 07/27/24 05:16 07/28/24 03:59 Labs: Abnormal Lab Results - Last 24 Hours (Table) 07/27/24 07/27/24 07/27/24 Range/Units 12:32 17:32 20:24 BUN (9.0-27.0) mg/dL BUN/Creatinine Ratio (12.00-20.00) Ratio Glucose (70-110) mg/dL POC Glucose (mg/dL) 298 H 324 H 246 H (70-110) mg/dL Calcium (8.7-10.3) mg/dL 07/28/24 07/28/24 Range/Units 03:59 06:08 BUN 7.1 L (9.0-27.0) mg/dL BUN/Creatinine Ratio 11.83 L (12.00-20.00) Ratio Glucose 233 H (70-110) mg/dL POC Glucose (mg/dL) 260 H (70-110) mg/dL Calcium 7.9 L (8.7-10.3) mg/dL Microbiology - Last 24 Hours (Table) 07/25/24 16:28 Urine Culture - Final Urine,Voided
[2024-07-29 06:13] LABS: Glucose,Whole Blood 250 mg/dL (70-110)
[2024-07-29 08:17] LABS: Basophils # (A) 0.04 X 10*3/uL (0.00-0.10); Basophils % (A) 0.4 %; HCT 28.4 % (37.2-46.3); HGB 9.5 g/dL (12.0-15.0); Lymphocytes # (A) 1.38 X 10*3/uL (0.90-5.00); Lymphocytes % (A) 13.6 %; MCH 27.9 pg (27.0-32.0); MCHC 33.5 g/dL (32.0-37.0); MCV 83.3 FL (80.0-97.0); Mean Platelet Volume 9.9 FL (9.5-12.2); Monocytes # (A) 0.84 X 10*3/uL (0.20-1.00); Monocytes % (A) 8.3 %; NRBC Per 100 WBC 0 X 10*3/uL (0.00-0.01); Neutrophils % (A) 75.9 %; Platelet Count 303 X 10*3/uL (140-440); RBC 3.41 X 10*6/uL (4.10-5.20); RDW 13.1 % (11.5-14.5); WBC 10.14 X 10*3/uL (4.50-10.00)
[2024-07-29] MEDS: ONDANSETRON 4 MG/2 ML VIAL IVP PRN (08:53)
[2024-07-29 10:32] LABS: Magnesium 1.4 mg/dL (1.5-2.4)
[2024-07-29 10:37] LABS: ALT 16 U/L (8-44); AST 14 U/L (13-35); Albumin 2.6 g/dL (3.8-4.9); Albumin/Globulin Ratio 1.24 Ratio (1.60-3.17); Alkaline Phosphatase 82 U/L (41-126); BUN/Creat Ratio 10.67 Ratio (12.00-20.00); Blood Urea Nitrogen 6.4 mg/dL (9.0-27.0); Calcium 7.7 mg/dL (8.7-10.3); Carbon Dioxide 21.4 mmol/L (21.6-31.8); Chloride 103 mmol/L (96-109); Globulin 2.1 g/dL (1.6-3.3); Glucose 216 mg/dL (70-110); Potassium 3.5 mmol/L (3.5-5.5); Sodium 137 mmol/L (135-145); Total Bilirubin 0.2 mg/dL (0.3-1.2); Total Protein 4.7 g/dL (6.2-8.2)
--- NOTE | 2024-07-29 11:30 | P.PN ---
Subjective Progress Note Date: 07/29/24 SURGICAL PROGRESS NOTE CHIEF COMPLAINT: Urinary tract symptoms HISTORY OF PRESENT ILLNESS: Patient reports her abdominal distention and pain have improved. She did have 1 episode of vomiting this morning. However, she is passing a lot more flatus and she did have a small bowel movement yesterday. CT scan abdomen pelvis reports a small bowel ileus. Bilateral hydronephrosis greater on the right. Thickened urinary bladder wall. Patient being followed by urology. Afebrile. WBC 10.14 Hgb 9.5 magnesium 1.4 Patient seen and examined with Dr. Lilly PHYSICAL EXAM: VITAL SIGNS: Reviewed. GENERAL: Well-developed in no acute distress. ABDOMEN: Soft. Mildly distended. Suprapubic tenderness NEUROLOGIC: Alert and oriented. Cranial nerves II through XII grossly intact. ASSESSMENT: 1. Small bowel ileus 2. Hypomagnesemia 3. Possible UTI PLAN: - Reglan added for ileus. Agree with lactulose - Increase activity level. Patient's mobility is limited. Will try to have her sit at bedside chair. - Discussed case with medicine service. Cymbalta discontinued due to its interaction with the Reglan. - Advance diet to full liquids Physician Automotive Dismantler note has been reviewed by physician. Signing provider agrees with the documented findings, assessment, and plan of care. Objective - Vital Signs Vital signs: Vital Signs Temp 98.4 F 07/29/24 07:15 Pulse 94 07/29/24 07:15 Resp 16 07/29/24 07:15 BP 102/66 07/29/24 07:15 Pulse Ox 95 07/29/24 07:15 FiO2 Intake & Output 07/28/24 07/29/24 07/29/24 18:59 06:59 18:59 Output Total 600 700 Balance -600 -700 Output: Urine 600 700 Other: Voiding Method Diaper Diaper Incontinent Incontinent External Catheter External Catheter - Labs CBC & Chem 7: 07/29/24 05:35 07/29/24 05:35 Labs: Abnormal Lab Results - Last 24 Hours (Table) 07/28/24 07/28/24 07/28/24 Range/Units 12:24 17:30 19:25 WBC (4.50-10.00) X 10*3/uL RBC (4.10-5.20) X 10*6/uL Hgb (12.0-15.0) g/dL Hct (37.2-46.3) % Immature Gran # (0.00-0.04) X 10*3/uL Carbon Dioxide (21.6-31.8) mmol/L Anion Gap (4.00-12.00) mmol/L BUN (9.0-27.0) mg/dL BUN/Creatinine Ratio (12.00-20.00) Ratio Glucose (70-110) mg/dL POC Glucose (mg/dL) 268 H 229 H 221 H (70-110) mg/dL Calcium (8.7-10.3) mg/dL Magnesium (1.5-2.4) mg/dL Total Bilirubin (0.3-1.2) mg/dL Total Protein (6.2-8.2) g/dL Albumin (3.8-4.9) g/dL Albumin/Globulin Ratio (1.60-3.17) Ratio 07/29/24 07/29/24 07/29/24 Range/Units 05:35 05:35 06:12 WBC 10.14 H (4.50-10.00) X 10*3/uL RBC 3.41 L (4.10-5.20) X 10*6/uL Hgb 9.5 L (12.0-15.0) g/dL Hct 28.4 L (37.2-46.3) % Immature Gran # 0.08 H (0.00-0.04) X 10*3/uL Carbon Dioxide 21.4 L (21.6-31.8) mmol/L Anion Gap 12.60 H (4.00-12.00) mmol/L BUN 6.4 L (9.0-27.0) mg/dL BUN/Creatinine Ratio 10.67 L (12.00-20.00) Ratio Glucose 216 H (70-110) mg/dL POC Glucose (mg/dL) 250 H (70-110) mg/dL Calcium 7.7 L (8.7-10.3) mg/dL Magnesium 1.4 L (1.5-2.4) mg/dL Total Bilirubin 0.2 L (0.3-1.2) mg/dL Total Protein 4.7 L (6.2-8.2) g/dL Albumin 2.6 L (3.8-4.9) g/dL Albumin/Globulin Ratio 1.24 L (1.60-3.17) Ratio Microbiology - Last 24 Hours (Table) 07/23/24 00:27 Blood Culture - Final Blood
[2024-07-29 12:17] LABS: Glucose,Whole Blood 236 mg/dL (70-110)
[2024-07-29] MEDS: METOCLOPRAMIDE 5 MG/ML 2 ML VIAL IVP SCH (12:36)
[2024-07-29] MEDS: MAGNESIUM SULFATE-D5W PMX 1 GM in DEXTROSE/WATER 1 100ML.BAG IVPB SCH (12:36)
[2024-07-29] MEDS ORDERED: ZINC OXIDE PASTE (Z-GUARD) 1 APPLIC TOPICAL PRN (13:37)
--- NOTE | 2024-07-29 16:02 | P.PN ---
Subjective Progress Note Date: 07/28/24 Principal diagnosis: Reason for follow-up is UTI Patient is a 63-year-old female with a past medical history significant for CVA/TIA, Diabetes Mellitus, GERD/Reflux, Hyperlipidemia, Hypertension, Myocardial Infarction ([place]), Vascular Disorder, presenting to the ER concerning for urinary incontinence dysuria has been diagnosed with sepsis secondary to UTI. On today's evaluation that is 07/28/2024, patient has been afebrile, patient is breathing comfortably and is currently on room air, patient denies having any chest pain and cough, patient did have some nausea and lower abdominal discomfort with no bowel movement for about a week also complaining of pain to the left heel area Patient did have a creatinine 0.62 no CBC was done today Objective - Vital Signs Vital signs: Vital Signs Temp 98.1 F 07/28/24 13:37 Pulse 91 07/28/24 13:37 Resp 18 07/28/24 13:37 BP 100/61 07/28/24 13:37 Pulse Ox 97 07/28/24 13:37 FiO2 Intake & Output 07/27/24 07/28/24 07/28/24 18:59 06:59 18:59 Intake Total 0 Output Total 600 300 Balance -600 -300 Intake: Intake, IV Titration 0 Amount cefTRIAXone 2 gm In 0 Sodium Chloride 0.9% 50 ml @ 100 mls/hr IVPB Q24H [facility] Rx#:[id number] Output: Urine 600 300 Other: Voiding Method Diaper Diaper Diaper Incontinent Incontinent Incontinent External Catheter External Catheter External Catheter - Exam GENERAL DESCRIPTION: Middle-age female lying in bed in no distress RESPIRATORY SYSTEM: Unlabored breathing , decreased breath sounds at bases HEART: S1 S2 regular rate and rhythm , ABDOMEN: Soft , no tenderness - Labs CBC & Chem 7: 07/29/24 05:35 07/29/24 05:35 Labs: Abnormal Lab Results - Last 24 Hours (Table) 07/27/24 07/27/24 07/28/24 Range/Units 17:32 20:24 03:59 BUN 7.1 L (9.0-27.0) mg/dL BUN/Creatinine Ratio 11.83 L (12.00-20.00) Ratio Glucose 233 H (70-110) mg/dL POC Glucose (mg/dL) 324 H 246 H (70-110) mg/dL Calcium 7.9 L (8.7-10.3) mg/dL 07/28/24 07/28/24 Range/Units 06:08 12:24 BUN (9.0-27.0) mg/dL BUN/Creatinine Ratio (12.00-20.00) Ratio Glucose (70-110) mg/dL POC Glucose (mg/dL) 260 H 268 H (70-110) mg/dL Calcium (8.7-10.3) mg/dL Microbiology - Last 24 Hours (Table) 07/23/24 00:27 Blood Culture - Final Blood Assessment and Plan (1) Sepsis Current Visit: Yes Status: Acute Code(s): A41.9 - SEPSIS, UNSPECIFIED ORGANISM SNOMED Code(s): 45205128 (2) UTI (urinary tract infection) Current Visit: Yes Status: Acute Code(s): N39.0 - URINARY TRACT INFECTION, SITE NOT SPECIFIED SNOMED Code(s): 02128570 (3) Pressure ulcer, heel, right, unstageable Current Visit: Yes Status: Acute Code(s): L89.610 - PRESSURE ULCER OF RIGHT HEEL, UNSTAGEABLE SNOMED Code(s): 77313037637039275 Plan: 1patient presented the hospital with sepsis in this patient who did have fever tachycardia elevated lactic acid bradycardia./Sepsis source likely urinary has a patient did have significant urinary symptom and positive UA and likely from enteric gram-negative pathogen 2patient did have resolution of her fever, CT urogram did not show any bladder mass did shows evidence of hydronephrosis 3repeat UA has been positive however culture has been negative 4right heel unstageable pressure ulcer advised to keep the area of the pressure 5-patient did have abdominal discomfort constipation nausea CT abdominal pelvis has been ordered results will be followed also have a pressure injury to the left knee area to keep the area of the pressure and ryan the area of the redness Dictation was produced using [employer] dictation software. please excuse any grammatical, word or spelling errors. Time with Patient: Less than 30
--- NOTE | 2024-07-29 16:03 | P.PN ---
Subjective Progress Note Date: 07/29/24 Principal diagnosis: Reason for follow-up is UTI Patient is a 63-year-old female with a past medical history significant for CVA/TIA, Diabetes Mellitus, GERD/Reflux, Hyperlipidemia, Hypertension, Myocardial Infarction ([place]), Vascular Disorder, presenting to the ER concerning for urinary incontinence dysuria has been diagnosed with sepsis secondary to UTI. On today's evaluation that is 07/29/2024, Patient is afebrile this morning patient denies having any chest pain shortness of breath or cough, the patient is currently on room air, patient did have some nausea but no vomiting abdominal discomfort has decreased did have some bowel movement. Patient white count is 10.14, creatinine 0.6 she did have abdominal pelvis CT which did mention bilateral hydronephrosis greater on the right and thickened urinary bladder wall Objective - Vital Signs Vital signs: Vital Signs Temp 98.3 F 07/29/24 14:00 Pulse 69 07/29/24 14:00 Resp 16 07/29/24 14:00 BP 104/65 07/29/24 14:00 Pulse Ox 100 07/29/24 14:00 FiO2 Intake & Output 07/28/24 07/29/24 07/29/24 18:59 06:59 18:59 Intake Total 560 Output Total 600 700 500 Balance -600 -700 60 Intake: Oral 560 Output: Urine 600 700 500 Other: Voiding Method Diaper Diaper Incontinent Incontinent External Catheter External Catheter # Bowel Movements 1 - Exam GENERAL DESCRIPTION: Middle-age female lying in bed in no distress RESPIRATORY SYSTEM: Unlabored breathing , decreased breath sounds at bases HEART: S1 S2 regular rate and rhythm , ABDOMEN: Soft , no tenderness - Labs CBC & Chem 7: 07/29/24 05:35 07/29/24 05:35 Labs: Abnormal Lab Results - Last 24 Hours (Table) 07/28/24 07/28/24 07/29/24 Range/Units 17:30 19:25 05:35 WBC 10.14 H (4.50-10.00) X 10*3/uL RBC 3.41 L (4.10-5.20) X 10*6/uL Hgb 9.5 L (12.0-15.0) g/dL Hct 28.4 L (37.2-46.3) % Immature Gran # 0.08 H (0.00-0.04) X 10*3/uL Carbon Dioxide (21.6-31.8) mmol/L Anion Gap (4.00-12.00) mmol/L BUN (9.0-27.0) mg/dL BUN/Creatinine Ratio (12.00-20.00) Ratio Glucose (70-110) mg/dL POC Glucose (mg/dL) 229 H 221 H (70-110) mg/dL Calcium (8.7-10.3) mg/dL Magnesium (1.5-2.4) mg/dL Total Bilirubin (0.3-1.2) mg/dL Total Protein (6.2-8.2) g/dL Albumin (3.8-4.9) g/dL Albumin/Globulin Ratio (1.60-3.17) Ratio 07/29/24 07/29/24 07/29/24 Range/Units 05:35 06:12 12:14 WBC (4.50-10.00) X 10*3/uL RBC (4.10-5.20) X 10*6/uL Hgb (12.0-15.0) g/dL Hct (37.2-46.3) % Immature Gran # (0.00-0.04) X 10*3/uL Carbon Dioxide 21.4 L (21.6-31.8) mmol/L Anion Gap 12.60 H (4.00-12.00) mmol/L BUN 6.4 L (9.0-27.0) mg/dL BUN/Creatinine Ratio 10.67 L (12.00-20.00) Ratio Glucose 216 H (70-110) mg/dL POC Glucose (mg/dL) 250 H 236 H (70-110) mg/dL Calcium 7.7 L (8.7-10.3) mg/dL Magnesium 1.4 L (1.5-2.4) mg/dL Total Bilirubin 0.2 L (0.3-1.2) mg/dL Total Protein 4.7 L (6.2-8.2) g/dL Albumin 2.6 L (3.8-4.9) g/dL Albumin/Globulin Ratio 1.24 L (1.60-3.17) Ratio Microbiology - Last 24 Hours (Table) 07/23/24 00:27 Blood Culture - Final Blood Assessment and Plan (1) Sepsis Current Visit: Yes Status: Acute Code(s): A41.9 - SEPSIS, UNSPECIFIED ORGANISM SNOMED Code(s): 29312244 (2) UTI (urinary tract infection) Current Visit: Yes Status: Acute Code(s): N39.0 - URINARY TRACT INFECTION, SITE NOT SPECIFIED SNOMED Code(s): 54754733 (3) Pressure ulcer, heel, right, unstageable Current Visit: Yes Status: Acute Code(s): L89.610 - PRESSURE ULCER OF RIGHT HEEL, UNSTAGEABLE SNOMED Code(s): 58991311826468065 Plan: 1patient presented the hospital with sepsis in this patient who did have fever tachycardia elevated lactic acid bradycardia./Sepsis source likely urinary has a patient did have significant urinary symptom and positive UA and likely from enteric gram-negative pathogen 2patient did have resolution of her fever, CT urogram did not show any bladder mass did shows evidence of hydronephrosis 3repeat UA has been positive however culture has been negative 4right heel unstageable pressure ulcer advised to keep the area of the pressure, it is stage I pressure ulcer to the left heel area 5-patient did have significant abdominal edema of bilateral hydronephrosis more than the right side and bladder thickening may benefit from reevaluation by urology for now continue with Rocephin Dictation was produced using [employer] dictation software. please excuse any grammatical, word or spelling errors.
[2024-07-29 17:30] LABS: Glucose,Whole Blood 332 mg/dL (70-110)
[2024-07-29 20:35] LABS: Glucose,Whole Blood 309 mg/dL (70-110)
--- NOTE | 2024-07-30 05:41 | P.PN ---
Subjective Progress Note Date: 07/29/24 63-year-old lady with past medical history significant for hyperlipidemia, diabetes mellitus who presented to the hospital for dysuria for the last 2 weeks. Stated that she has been noticing that her frequency of urination has increased and she had been having pain with urination. Patient denies any flank pain. Patient denies any abdominal pain. There is complaint of urine continence, patient currently uses diapers and states that she uses up to 15 diapers a day. Stated yesterday patient was having a lot of chills and felt very cold. Patient is complaining of fever at home. There is no complaint of shortness of breath. Patient denies any palpitation. There is no complaint of orthopnea or PND. Denies any nausea, vomiting abdominal pain. Patient denies any complaint of dizziness. There is no complaint of headache. Of the symptoms, patient came to the ER Initial lab work done in the ER showed WBC 7.7, hemoglobin 13.3, platelet count 218, sodium 133, potassium 4.7, BUN 16, creatinine 0.69, lactate 2.8 calcium 9.1 UA done showed large amount of leukocyte Estrace, urine WBC more than 182 Patient admitted to internal medicine service 07/27/2024 Patient is seen and evaluated resting comfortably in bed; remains afebrile patient is currently on room air; denies any nausea vomiting did not have any abdominal pain and no diarrhea rather patient is constipated no bowel movement for the last few days. Vital signs are reviewed and stable temperature of 98, pulse 93, respirations 17 and blood pressure 96/58, Blood work reveals WBC of 9.01, hemoglobin of 9.4 and platelet count of 200, sodium 135, potassium 3.6, BUN/creatinine of 7.3/0.6 patient presented the hospital with sepsis in this patient who did have fever tachycardia elevated lactic acid bradycardia./Sepsis source likely urinary tract patient did have resolution of her fever, CT urogram did not show any bladder mass did shows evidence of hydronephrosis repeat UA has been positive however culture has been negative for now continue with Rocephin and will transition to short course of oral Ceftin on discharge right heel unstageable pressure ulcer advised to keep the area of the pressure 07/28/2024 Patient is seen in follow-up today reports having extreme nausea with some vomiting and unable to tolerate much oral intake. Patient also noted to be constipated and reports has not had a bowel movement in a few days. Will obtain an abdominal x-ray also make the patient n.p.o. and continue with Protonix IV twice daily. Will consult general surgery for evaluation and appreciate input and recommendations. Patient is continued on antibiotics with infectious disease following will likely transition to oral antibiotics on discharge. Patient also noted to have a right heel unstageable wound that is continued with local wound care. 07/29/2024 Patient is seen in follow-up today continuing to report some vomiting and evaluated by general surgery with concerns of possible ileus. Patient is having bowel movements with multiple loose stools and is maintained on IV Protonix. Patient was continued on lactulose scheduled and is having bowel movements. Diet may be advanced per surgery as tolerated and Reglan being added for the ileus. Magnesium noted to be 1.4 today and being replaced per protocol. Patient is extremely weak and will have PT/OT therapy evaluate the patient. Patient reports would like to go home on discharge and has support in the home. Review of systems: Constitutional: No reports of fatigue, fever, or chills Cardiovascular: No reports of chest pain or palpitations Respiratory: No reports of shortness of breath or cough GI: reports of nausea, with occasional vomiting, reporting multiple loose stools : No reports of dysuria or retention Neurovascular: reports of generalized weakness All medications have been reviewed Physical exam: Gen: This is a 63-year-old female who is awake, alert and oriented x 2-3, baseline, well-developed, elderly appearing, thin built HEENT: Head is atraumatic, normocephalic. Pupils equal, round. Sclerae is ani cteric. NECK: Supple. No JVD. No lymphadenopathy. No thyromegaly. LUNGS: Diminished breath sounds bilaterally otherwise clear to auscultation. No wheezes or rhonchi. No intercostal retractions. HEART: S1, S2 are muffled ABDOMEN: Soft. Distended bowel sounds are hypoactive. No masses. Mild tende rness. EXTREMITIES: No pedal edema. No calf tenderness. NEUROLOGICAL: Patient is awake, alert and oriented x2-3. Cranial nerves 2 through 12 are grossly intact. Diffusely weak Assessment: Complicated UTI, present on admission Right heel unstageable pressure ulcer, on admission Abdominal pain with distention, likely secondary to small bowel ileus noted on imaging Lactic acidosis on admission, improved Hypertension Hyperlipidemia History of coronary artery disease Diabetes mellitus, type II uncontrolled with hyperglycemia Mild bilateral hydronephrosis with a nonobstructing renal calculi on the right measuring 4.6 mm GI prophylaxis DVT prophylaxis Full code Plan: Patient being followed by infectious disease maintained on antibiotics. Will transition to oral Ceftin on discharge Urology following recommending outpatient cystoscopy and urodynamics Patient having some abdominal pain and vomiting and a consult was placed to general surgery for small bowel ileus. Will make the patient n.p.o. for now and being advanced to full liquids per general surgery. Patient being scheduled Reglan at this time. Follow-up on repeat labs in the a.m. and will continue to monitor closely Due to multiple complex medical issues, overall prognosis is guarded Recommend PT/OT therapy evaluation Will discuss with consultations regarding discharge planning once stabilized The impression and plan of care has been dictated by Consuelo Combs, Nurse Practitioner as directed. Dr. Migel MD I have performed a history and examination and MDM of this patient, discussed the same with the dictator, and agree with the dictator's assessment and plan as written ,documented as a scribe. Based on total visit time, I have performed more than 50% of the visit. Objective - Vital Signs Vital signs: Vital Signs Temp 98.2 F 07/30/24 01:00 Pulse 83 07/30/24 01:00 Resp 15 07/30/24 01:00 BP 109/66 07/30/24 01:00 Pulse Ox 94 L 07/30/24 01:00 FiO2 Intake & Output 07/29/24 07/29/24 07/30/24 06:59 18:59 06:59 Intake Total 920 Output Total 700 950 Balance -700 -30 Intake: Oral 920 Output: Urine 700 950 Other: Voiding Method Diaper Diaper Incontinent Incontinent External Catheter External Catheter # Bowel Movements 1 - Labs CBC & Chem 7: 07/29/24 05:35 07/29/24 05:35 Labs: Abnormal Lab Results - Last 24 Hours (Table) 07/29/24 07/29/24 07/29/24 Range/Units 05:35 05:35 06:12 WBC 10.14 H (4.50-10.00) X 10*3/uL RBC 3.41 L (4.10-5.20) X 10*6/uL Hgb 9.5 L (12.0-15.0) g/dL Hct 28.4 L (37.2-46.3) % Immature Gran # 0.08 H (0.00-0.04) X 10*3/uL Carbon Dioxide 21.4 L (21.6-31.8) mmol/L Anion Gap 12.60 H (4.00-12.00) mmol/L BUN 6.4 L (9.0-27.0) mg/dL BUN/Creatinine Ratio 10.67 L (12.00-20.00) Ratio Glucose 216 H (70-110) mg/dL POC Glucose (mg/dL) 250 H (70-110) mg/dL Calcium 7.7 L (8.7-10.3) mg/dL Magnesium 1.4 L (1.5-2.4) mg/dL Total Bilirubin 0.2 L (0.3-1.2) mg/dL Total Protein 4.7 L (6.2-8.2) g/dL Albumin 2.6 L (3.8-4.9) g/dL Albumin/Globulin Ratio 1.24 L (1.60-3.17) Ratio 07/29/24 07/29/24 07/29/24 Range/Units 12:14 17:28 20:34 WBC (4.50-10.00) X 10*3/uL RBC (4.10-5.20) X 10*6/uL Hgb (12.0-15.0) g/dL Hct (37.2-46.3) % Immature Gran # (0.00-0.04) X 10*3/uL Carbon Dioxide (21.6-31.8) mmol/L Anion Gap (4.00-12.00) mmol/L BUN (9.0-27.0) mg/dL BUN/Creatinine Ratio (12.00-20.00) Ratio Glucose (70-110) mg/dL POC Glucose (mg/dL) 236 H 332 H 309 H (70-110) mg/dL Calcium (8.7-10.3) mg/dL Magnesium (1.5-2.4) mg/dL Total Bilirubin (0.3-1.2) mg/dL Total Protein (6.2-8.2) g/dL Albumin (3.8-4.9) g/dL Albumin/Globulin Ratio (1.60-3.17) Ratio
[2024-07-30 06:16] LABS: Glucose,Whole Blood 315 mg/dL (70-110)
[2024-07-30] MEDS: INSULIN GLARGINE (LANTUS) 100 UNIT/ML SYR SQ SCH ×2 (06:21→21:02)
[2024-07-30 10:28] LABS: Basophils # (A) 0.03 X 10*3/uL (0.00-0.10); Basophils % (A) 0.3 %; Eosinophils # (A) 0.07 X 10*3/uL (0.04-0.35); Eosinophils % (A) 0.7 %; HCT 28.4 % (37.2-46.3); HGB 9.4 g/dL (12.0-15.0); Lymphocytes # (A) 1.23 X 10*3/uL (0.90-5.00); Lymphocytes % (A) 11.8 %; MCH 27.9 pg (27.0-32.0); MCHC 33.1 g/dL (32.0-37.0); MCV 84.3 FL (80.0-97.0); Mean Platelet Volume 9.6 FL (9.5-12.2); Monocytes % (A) 9.6 %; NRBC Per 100 WBC 0 X 10*3/uL (0.00-0.01); Neutrophils # (A) 7.98 X 10*3/uL (1.80-7.70); Neutrophils % (A) 76.8 %; Platelet Count 369 X 10*3/uL (140-440); RBC 3.37 X 10*6/uL (4.10-5.20); RDW 13.2 % (11.5-14.5); WBC 10.39 X 10*3/uL (4.50-10.00)
[2024-07-30 10:46] LABS: Blood Urea Nitrogen 5.1 mg/dL (9.0-27.0); Calcium 7.6 mg/dL (8.7-10.3); Carbon Dioxide 23.3 mmol/L (21.6-31.8); Chloride 102 mmol/L (96-109); Glucose 273 mg/dL (70-110); Magnesium 1.8 mg/dL (1.5-2.4); Potassium 3.6 mmol/L (3.5-5.5); Sodium 137 mmol/L (135-145)
--- NOTE | 2024-07-30 10:54 | P.PN ---
Progress Note - Text Progress Note Date: 07/30/24 The patient was seen by Dr. Pierre earlier in the week for incontinence. He recommended an office evaluation including cystoscopy and cystometrogram. The patient asked for clarification of this. I discussed this with her this morning and she will be set up as an outpatient to see Dr. Lake to evaluate her incontinence.
[2024-07-30 12:22] LABS: Glucose,Whole Blood 362 mg/dL (70-110)
--- NOTE | 2024-07-30 12:28 | P.PN ---
Subjective Progress Note Date: 07/30/24 SURGICAL PROGRESS NOTE CHIEF COMPLAINT: Urinary tract symptoms HISTORY OF PRESENT ILLNESS: Patient reports she is starting to feel better. She had a large bowel movement yesterday and is having a lot of flatus. She reports improvement in her abdominal distention. She has had no further vomiting. She is tolerating the full liquid diet. Afebrile. WBC 10.39 magnesium improved from 1.4-1.8 PHYSICAL EXAM: VITAL SIGNS: Reviewed. GENERAL: Well-developed in no acute distress. ABDOMEN: Soft. Mildly distended. NEUROLOGIC: Alert and oriented. Cranial nerves II through XII grossly intact. ASSESSMENT: 1. Small bowel ileus resolving 2. Hypomagnesemia improved 3. Possible UTI PLAN: - Continue Reglan and lactulose - Increase activity level - Continue full liquids Physician Flanging Machine Operator note has been reviewed by physician. Signing provider agrees with the documented findings, assessment, and plan of care. Objective - Vital Signs Vital signs: Vital Signs Temp 98.3 F 07/30/24 07:07 Pulse 94 07/30/24 07:07 Resp 15 07/30/24 07:07 BP 104/64 07/30/24 07:07 Pulse Ox 91 L 07/30/24 07:07 FiO2 Intake & Output 07/29/24 07/30/24 07/30/24 18:59 06:59 18:59 Intake Total 920 Output Total 950 300 Balance -30 -300 Intake: Oral 920 Output: Urine 950 300 Other: Voiding Method Diaper Diaper Incontinent Incontinent External Catheter External Catheter # Bowel Movements 1 - Labs CBC & Chem 7: 07/30/24 05:29 07/30/24 05:29 Labs: Abnormal Lab Results - Last 24 Hours (Table) 07/29/24 07/29/24 07/30/24 Range/Units 17:28 20:34 05:29 WBC 10.39 H (4.50-10.00) X 10*3/uL RBC 3.37 L (4.10-5.20) X 10*6/uL Hgb 9.4 L (12.0-15.0) g/dL Hct 28.4 L (37.2-46.3) % Immature Gran # 0.08 H (0.00-0.04) X 10*3/uL Neutrophils # 7.98 H (1.80-7.70) X 10*3/uL BUN (9.0-27.0) mg/dL BUN/Creatinine Ratio (12.00-20.00) Ratio Glucose (70-110) mg/dL POC Glucose (mg/dL) 332 H 309 H (70-110) mg/dL Calcium (8.7-10.3) mg/dL 07/30/24 07/30/24 07/30/24 Range/Units 05:29 06:15 12:20 WBC (4.50-10.00) X 10*3/uL RBC (4.10-5.20) X 10*6/uL Hgb (12.0-15.0) g/dL Hct (37.2-46.3) % Immature Gran # (0.00-0.04) X 10*3/uL Neutrophils # (1.80-7.70) X 10*3/uL BUN 5.1 L (9.0-27.0) mg/dL BUN/Creatinine Ratio 8.50 L (12.00-20.00) Ratio Glucose 273 H (70-110) mg/dL POC Glucose (mg/dL) 315 H 362 H (70-110) mg/dL Calcium 7.6 L (8.7-10.3) mg/dL
[2024-07-30 17:08] LABS: Glucose,Whole Blood 247 mg/dL (70-110)
--- NOTE | 2024-07-30 18:55 | P.PN ---
Subjective Progress Note Date: 07/30/24 63-year-old lady with past medical history significant for hyperlipidemia, diabetes mellitus who presented to the hospital for dysuria for the last 2 weeks. Stated that she has been noticing that her frequency of urination has increased and she had been having pain with urination. Patient denies any flank pain. Patient denies any abdominal pain. There is complaint of urine continence, patient currently uses diapers and states that she uses up to 15 diapers a day. Stated yesterday patient was having a lot of chills and felt very cold. Patient is complaining of fever at home. There is no complaint of shortness of breath. Patient denies any palpitation. There is no complaint of orthopnea or PND. Denies any nausea, vomiting abdominal pain. Patient denies any complaint of dizziness. There is no complaint of headache. Of the symptoms, patient came to the ER Initial lab work done in the ER showed WBC 7.7, hemoglobin 13.3, platelet count 218, sodium 133, potassium 4.7, BUN 16, creatinine 0.69, lactate 2.8 calcium 9.1 UA done showed large amount of leukocyte Estrace, urine WBC more than 182 Patient admitted to internal medicine service 07/27/2024 Patient is seen and evaluated resting comfortably in bed; remains afebrile patient is currently on room air; denies any nausea vomiting did not have any abdominal pain and no diarrhea rather patient is constipated no bowel movement for the last few days. Vital signs are reviewed and stable temperature of 98, pulse 93, respirations 17 and blood pressure 96/58, Blood work reveals WBC of 9.01, hemoglobin of 9.4 and platelet count of 200, sodium 135, potassium 3.6, BUN/creatinine of 7.3/0.6 patient presented the hospital with sepsis in this patient who did have fever tachycardia elevated lactic acid bradycardia./Sepsis source likely urinary tract patient did have resolution of her fever, CT urogram did not show any bladder mass did shows evidence of hydronephrosis repeat UA has been positive however culture has been negative for now continue with Rocephin and will transition to short course of oral Ceftin on discharge right heel unstageable pressure ulcer advised to keep the area of the pressure 07/28/2024 Patient is seen in follow-up today reports having extreme nausea with some vomiting and unable to tolerate much oral intake. Patient also noted to be constipated and reports has not had a bowel movement in a few days. Will obtain an abdominal x-ray also make the patient n.p.o. and continue with Protonix IV twice daily. Will consult general surgery for evaluation and appreciate input and recommendations. Patient is continued on antibiotics with infectious disease following will likely transition to oral antibiotics on discharge. Patient also noted to have a right heel unstageable wound that is continued with local wound care. 07/29/2024 Patient is seen in follow-up today continuing to report some vomiting and evaluated by general surgery with concerns of possible ileus. Patient is having bowel movements with multiple loose stools and is maintained on IV Protonix. Patient was continued on lactulose scheduled and is having bowel movements. Diet may be advanced per surgery as tolerated and Reglan being added for the ileus. Magnesium noted to be 1.4 today and being replaced per protocol. Patient is extremely weak and will have PT/OT therapy evaluate the patient. Patient reports would like to go home on discharge and has support in the home. 07/30/2024 Patient is seen in follow-up today with no acute overnight issues noted. Patient reports her abdominal pain is improving and is having multiple bowel movements that are loose and is passing gas. Patient was placed on scheduled Reglan per general surgery and has been tolerating the full liquid diet and will continue. Patient is potassium was replaced and magnesium is improved at 1.8 today. Patient with significant weakness and prolonged hospitalization recommend PT/OT therapy as patient reports she is returning home and has support in the home. Will await PT/OT therapy evaluation and discuss further with consultations regarding discharge planning. Possible discharge in the next 24 hours. Review of systems: Constitutional: No reports of fatigue, fever, or chills Cardiovascular: No reports of chest pain or palpitations Respiratory: No reports of shortness of breath or cough GI: No further reports of nausea, no vomiting, reporting multiple loose stools and passing gas with improved abdominal pain : No reports of dysuria or retention Neurovascular: reports of generalized weakness All medications have been reviewed Physical exam: Gen: This is a 63-year-old female who is awake, alert and oriented x 2-3, baseline, well-developed, elderly appearing, thin built HEENT: Head is atraumatic, normocephalic. Pupils equal, round. Sclerae is anicteric. NECK: Supple. No JVD. No lymphadenopathy. No thyromegaly. LUNGS: Diminished breath sounds bilaterally otherwise clear to auscultation. No wheezes or rhonchi. No intercostal retractions. HEART: S1, S2 are muffled ABDOMEN: Soft. Distended bowel sounds are hypoactive. No masses. Mild tenderness. EXTREMITIES: No pedal edema. No calf tenderness. NEUROLOGICAL: Patient is awake, alert and oriented x2-3. Cranial nerves 2 through 12 are grossly intact. Diffusely weak Assessment: Complicated UTI, present on admission Right heel unstageable pressure ulcer, on admission Abdominal pain with distention, likely secondary to small bowel ileus noted on imaging, improving Lactic acidosis on admission, improved Hypertension Hyperlipidemia History of coronary artery disease Diabetes mellitus, type II uncontrolled with hyperglycemia Mild bilateral hydronephrosis with a nonobstructing renal calculi on the right measuring 4.6 mm Generalized weakness with gait dysfunction GI prophylaxis DVT prophylaxis Full code Plan: Patient being followed by infectious disease maintained on antibiotics. Will transition to oral Ceftin on discharge Urology following recommending outpatient cystoscopy and further urodynamics Patient was having some abdominal pain and placed on bowel regimen along with scheduled Reglan with general surgery following and is maintained on full liquids tolerating, reports to improvement in abdominal pain. Patient reports is having multiple loose stools with gas noted. Per general surgery no plans for surgical intervention at this time continuing with conservative management Follow-up on repeat labs in the a.m. and will continue to monitor closely. Magnesium was replaced yesterday and is improved at 1.8 today. Will follow-up on repeat labs Due to multiple complex medical issues, overall prognosis is guarded Recommend PT/OT therapy evaluation as patient reports she is returning home and has support in the home. Will discuss with consultations regarding discharge planning possibly in the next 24 to 48 hours The impression and plan of care has been dictated by Nurse Lilia Andersonioneadrian as directed. Dr. Migel MD I have performed a history and examination and MDM of this patient, discussed the same with the dictator, and agree with the dictator's assessment and plan as written ,documented as a scribe. Based on total visit time, I have performed more than 50% of the visit. Objective - Vital Signs Vital signs: Vital Signs Temp 98.5 F 07/30/24 13:45 Pulse 99 07/30/24 13:45 Resp 16 06/11/25 13:45 BP 111/63 07/30/24 13:45 Pulse Ox 95 07/30/24 13:45 FiO2 Intake & Output 07/29/24 07/30/24 07/30/24 18:59 06:59 18:59 Intake Total 920 840 Output Total 950 300 Balance -30 -300 840 Intake: Oral 920 840 Output: Urine 950 300 Other: Voiding Method Diaper Diaper Incontinent Incontinent External Catheter External Catheter # Bowel Movements 1 - Labs CBC & Chem 7: 07/30/24 05:29 07/30/24 05:29 Labs: Abnormal Lab Results - Last 24 Hours (Table) 07/29/24 07/30/24 07/30/24 Range/Units 20:34 05:29 05:29 WBC 10.39 H (4.50-10.00) X 10*3/uL RBC 3.37 L (4.10-5.20) X 10*6/uL Hgb 9.4 L (12.0-15.0) g/dL Hct 28.4 L (37.2-46.3) % Immature Gran # 0.08 H (0.00-0.04) X 10*3/uL Neutrophils # 7.98 H (1.80-7.70) X 10*3/uL BUN 5.1 L (9.0-27.0) mg/dL BUN/Creatinine Ratio 8.50 L (12.00-20.00) Ratio Glucose 273 H (70-110) mg/dL POC Glucose (mg/dL) 309 H (70-110) mg/dL Calcium 7.6 L (8.7-10.3) mg/dL 07/30/24 07/30/24 07/30/24 Range/Units 06:15 12:20 17:07 WBC (4.50-10.00) X 10*3/uL RBC (4.10-5.20) X 10*6/uL Hgb (12.0-15.0) g/dL Hct (37.2-46.3) % Immature Gran # (0.00-0.04) X 10*3/uL Neutrophils # (1.80-7.70) X 10*3/uL BUN (9.0-27.0) mg/dL BUN/Creatinine Ratio (12.00-20.00) Ratio Glucose (70-110) mg/dL POC Glucose (mg/dL) 315 H 362 H 247 H (70-110) mg/dL Calcium (8.7-10.3) mg/dL
[2024-07-30 20:00] LABS: Glucose,Whole Blood 224 mg/dL (70-110)
[2024-07-31 06:03] LABS: Glucose,Whole Blood 255 mg/dL (70-110)
--- NOTE | 2024-07-31 11:38 | P.PN ---
Subjective Progress Note Date: 07/31/24 SURGICAL PROGRESS NOTE CHIEF COMPLAINT: Urinary tract symptoms HISTORY OF PRESENT ILLNESS: Patient's last bowel movement was Sunday. She is having a lot of flatus. Apparently she had been refusing her lactulose. Denies any nausea or vomiting. Tolerating the full liquids. She denies abdominal pain. She does remain a little distended. Patient did have a temp of 101 last night. Magnesium 1.4 up to 1.8 WBC 10.39 PHYSICAL EXAM: VITAL SIGNS: Reviewed. GENERAL: Well-developed in no acute distress. ABDOMEN: Soft. Mildly distended. NEUROLOGIC: Alert and oriented. Cranial nerves II through XII grossly intact. ASSESSMENT: 1. Small bowel ileus resolving 2. Hypomagnesemia improved 3. Possible UTI PLAN: - Continue full liquid diet - Continue Reglan and lactulose - Increase activity level Physician Intermediate Card Tender note has been reviewed by physician. Signing provider agrees with the documented findings, assessment, and plan of care. Objective - Vital Signs Vital signs: Vital Signs Temp 98.7 F 07/31/24 07:10 Pulse 91 07/31/24 08:00 Resp 16 07/31/24 07:10 BP 118/69 07/31/24 07:10 Pulse Ox 90 L 07/31/24 07:10 FiO2 Intake & Output 07/30/24 07/31/24 07/31/24 18:59 06:59 18:59 Intake Total 840 240 Output Total 750 Balance 840 -510 Intake: Oral 840 240 Output: Urine 750 Other: Voiding Method Diaper Diaper Diaper Incontinent Incontinent Incontinent External Catheter External Catheter External Catheter - Labs CBC & Chem 7: 07/30/24 05:29 07/30/24 05:29 Labs: Abnormal Lab Results - Last 24 Hours (Table) 07/30/24 07/30/24 07/30/24 Range/Units 12:20 17:07 19:56 POC Glucose (mg/dL) 362 H 247 H 224 H (70-110) mg/dL 07/31/24 Range/Units 06:02 POC Glucose (mg/dL) 255 H (70-110) mg/dL
[2024-07-31 12:15] LABS: Glucose,Whole Blood 195 mg/dL (70-110)
--- NOTE | 2024-07-31 15:10 | XR ---
EXAMINATION TYPE: XR chest 1V portable DATE OF EXAM: 07/31/2024 2:41 PM COMPARISON: 05/15/2017 CLINICAL INDICATION: Female, 63 years old with history of shortness of breath, TECHNIQUE: XR chest 1V portable view(s) obtained. FINDINGS: The heart size is normal. The pulmonary vasculature is normal. Minimal bibasilar infiltrates are present. Correlate for subsegmental atelectasis. IMPRESSION: 1. Minimal bibasilar atelectasis. [facility], , 07/31/2024 3:08 PM
--- NOTE | 2024-07-31 15:44 | P.PN ---
Subjective Progress Note Date: 07/30/24 Principal diagnosis: Reason for follow-up is UTI Patient is a 63-year-old female with a past medical history significant for CVA/TIA, Diabetes Mellitus, GERD/Reflux, Hyperlipidemia, Hypertension, Myocardial Infarction ([place]), Vascular Disorder, presenting to the ER concerning for urinary incontinence dysuria has been diagnosed with sepsis secondary to UTI. On today's evaluation that is 07/30/2024,the patient denies any fever or any chills, patient is breathing comfortably on room air, the patient denies chest pain shortness of breath and no significant cough, patient denies abdominal pain, no nausea vomiting did have a bowel movement, pain to the left heel has d ecreased in intensity. The patient white count is 10.39 creatinine 0.6 Objective - Vital Signs Vital signs: Vital Signs Temp 98.3 F 07/30/24 07:07 Pulse 94 07/30/24 07:07 Resp 15 07/30/24 07:07 BP 104/64 07/30/24 07:07 Pulse Ox 91 L 07/30/24 07:07 FiO2 Intake & Output 07/29/24 07/30/24 07/30/24 18:59 06:59 18:59 Intake Total 920 360 Output Total 950 300 Balance -30 -300 360 Intake: Oral 920 360 Output: Urine 950 300 Other: Voiding Method Diaper Diaper Incontinent Incontinent External Catheter External Catheter # Bowel Movements 1 - Exam GENERAL DESCRIPTION: Middle-age female lying in bed in no distress RESPIRATORY SYSTEM: Unlabored breathing , decreased breath sounds at bases HEART: S1 S2 regular rate and rhythm , ABDOMEN: Soft , no tenderness - Labs CBC & Chem 7: 07/30/24 05:29 07/30/24 05:29 Labs: Abnormal Lab Results - Last 24 Hours (Table) 07/29/24 07/29/24 07/30/24 Range/Units 17:28 20:34 05:29 WBC 10.39 H (4.50-10.00) X 10*3/uL RBC 3.37 L (4.10-5.20) X 10*6/uL Hgb 9.4 L (12.0-15.0) g/dL Hct 28.4 L (37.2-46.3) % Immature Gran # 0.08 H (0.00-0.04) X 10*3/uL Neutrophils # 7.98 H (1.80-7.70) X 10*3/uL BUN (9.0-27.0) mg/dL BUN/Creatinine Ratio (12.00-20.00) Ratio Glucose (70-110) mg/dL POC Glucose (mg/dL) 332 H 309 H (70-110) mg/dL Calcium (8.7-10.3) mg/dL 07/30/24 07/30/24 07/30/24 Range/Units 05:29 06:15 12:20 WBC (4.50-10.00) X 10*3/uL RBC (4.10-5.20) X 10*6/uL Hgb (12.0-15.0) g/dL Hct (37.2-46.3) % Immature Gran # (0.00-0.04) X 10*3/uL Neutrophils # (1.80-7.70) X 10*3/uL BUN 5.1 L (9.0-27.0) mg/dL BUN/Creatinine Ratio 8.50 L (12.00-20.00) Ratio Glucose 273 H (70-110) mg/dL POC Glucose (mg/dL) 315 H 362 H (70-110) mg/dL Calcium 7.6 L (8.7-10.3) mg/dL Assessment and Plan (1) Sepsis Current Visit: Yes Status: Acute Code(s): A41.9 - SEPSIS, UNSPECIFIED ORGANISM SNOMED Code(s): 14238339 (2) UTI (urinary tract infection) Current Visit: Yes Status: Acute Code(s): N39.0 - URINARY TRACT INFECTION, SITE NOT SPECIFIED SNOMED Code(s): 18741218 (3) Pressure ulcer, heel, right, unstageable Current Visit: Yes Status: Acute Code(s): L89.610 - PRESSURE ULCER OF RIGHT HEEL, UNSTAGEABLE SNOMED Code(s): 14946686477365875 Plan: 1patient presented the hospital with sepsis in this patient who did have fever tachycardia elevated lactic acid bradycardia./Sepsis source likely urinary has a patient did have significant urinary symptom and positive UA and likely from enteric gram-negative pathogen 2patient did have resolution of her fever, CT urogram did not show any bladder mass did shows evidence of hydronephrosis 3repeat UA has been positive however culture has been negative 4right heel unstageable pressure ulcer advised to keep the area of the pressure, patient also have stage I pressure ulcer to the left heel area currently treated with of pressure 5-patient did have significant abdominal edema of bilateral hydronephrosis more than the right side and bladder thickening urology considering outpatient cy stoscopy for now continue with Rocephin Dictation was produced using [employer] dictation software. please excuse any grammatical, word or spelling errors. Time with Patient: Less than 30
--- NOTE | 2024-07-31 15:46 | P.PN ---
Subjective Progress Note Date: 07/31/24 Principal diagnosis: Reason for follow-up is UTI Patient is a 63-year-old female with a past medical history significant for CVA/TIA, Diabetes Mellitus, GERD/Reflux, Hyperlipidemia, Hypertension, Myocardial Infarction ([place]), Vascular Disorder, presenting to the ER concerning for urinary incontinence dysuria has been diagnosed with sepsis secondary to UTI. On today's evaluation that is 07/31/2024,the patient remains to be afebrile, patient is on room air not requiring supplemental oxygen and denies any shortness of breath no chest pain or cough.Patient denies having any nausea or vomiting, no abdominal pain and pain to the left heel has decreased mention feeling better. No new lab has been obtained today Objective - Vital Signs Vital signs: Vital Signs Temp 99.3 F 07/31/24 15:27 Pulse 97 07/31/24 15:27 Resp 16 07/31/24 15:27 BP 133/79 07/31/24 15:27 Pulse Ox 96 07/31/24 15:27 FiO2 Intake & Output 07/30/24 07/31/24 07/31/24 18:59 06:59 18:59 Intake Total 840 240 240 Output Total 750 Balance 840 -510 240 Intake: Oral 840 240 240 Output: Urine 750 Other: Voiding Method Diaper Diaper Diaper Incontinent Incontinent Incontinent External Catheter External Catheter External Catheter - Exam GENERAL DESCRIPTION: Middle-age female lying in bed in no distress RESPIRATORY SYSTEM: Unlabored breathing , decreased breath sounds at bases HEART: S1 S2 regular rate and rhythm , ABDOMEN: Soft , no tenderness - Labs CBC & Chem 7: 07/30/24 05:29 07/30/24 05:29 Labs: Abnormal Lab Results - Last 24 Hours (Table) 07/30/24 07/30/24 07/31/24 Range/Units 17:07 19:56 06:02 POC Glucose (mg/dL) 247 H 224 H 255 H (70-110) mg/dL 07/31/24 Range/Units 12:14 POC Glucose (mg/dL) 195 H (70-110) mg/dL Assessment and Plan (1) Sepsis Current Visit: Yes Status: Acute Code(s): A41.9 - SEPSIS, UNSPECIFIED ORGANISM SNOMED Code(s): 40728182 (2) UTI (urinary tract infection) Current Visit: Yes Status: Acute Code(s): N39.0 - URINARY TRACT INFECTION, SITE NOT SPECIFIED SNOMED Code(s): 12349918 (3) Pressure ulcer, heel, right, unstageable Current Visit: Yes Status: Acute Code(s): L89.610 - PRESSURE ULCER OF RIGHT HEEL, UNSTAGEABLE SNOMED Code(s): 66001993467940626 Plan: 1patient presented the hospital with sepsis in this patient who did have fever tachycardia elevated lactic acid bradycardia./Sepsis source likely urinary has a patient did have significant urinary symptom and positive UA and likely from enteric gram-negative pathogen 2patient did have resolution of her fever, CT urogram did not show any bladder mass did shows evidence of hydronephrosis 3repeat UA has been positive however culture has been negative 4right heel unstageable pressure ulcer advised to keep the area of the pressure, patient also have stage I pressure ulcer to the left heel area curren tly treated with of pressure 5-patient did have significant bilateral hydronephrosis more than the right side and bladder thickening urology considering outpatient cystoscopy , completed course of Rocephin consider short course of oral Ceftin on discharge Dictation was produced using [employer] dictation software. please excuse any grammatical, word or spelling errors. Time with Patient: Less than 30
[2024-07-31 17:06] LABS: Glucose,Whole Blood 205 mg/dL (70-110)
[2024-07-31 19:55] LABS: Glucose,Whole Blood 142 mg/dL (70-110)
[2024-07-31] MEDS: CEFDINIR 300 MG CAP PO SCH (20:56)
[2024-08-01 05:43] LABS: Glucose,Whole Blood 142 mg/dL (70-110)
[2024-08-01 07:28] VITALS: RESP 16
--- NOTE | 2024-08-01 07:45 | P.PN ---
Subjective Progress Note Date: 07/31/24 63-year-old lady with past medical history significant for hyperlipidemia, diabetes mellitus who presented to the hospital for dysuria for the last 2 weeks. Stated that she has been noticing that her frequency of urination has increased and she had been having pain with urination. Patient denies any flank pain. Patient denies any abdominal pain. There is complaint of urine continence, patient currently uses diapers and states that she uses up to 15 diapers a day. Stated yesterday patient was having a lot of chills and felt very cold. Patient is complaining of fever at home. There is no complaint of shortness of breath. Patient denies any palpitation. There is no complaint of orthopnea or PND. Denies any nausea, vomiting abdominal pain. Patient denies any complaint of dizziness. There is no complaint of headache. Of the symptoms, patient came to the ER Initial lab work done in the ER showed WBC 7.7, hemoglobin 13.3, platelet count 218, sodium 133, potassium 4.7, BUN 16, creatinine 0.69, lactate 2.8 calcium 9.1 UA done showed large amount of leukocyte Estrace, urine WBC more than 182 Patient admitted to internal medicine service 07/27/2024 Patient is seen and evaluated resting comfortably in bed; remains afebrile patient is currently on room air; denies any nausea vomiting did not have any abdominal pain and no diarrhea rather patient is constipated no bowel movement for the last few days. Vital signs are reviewed and stable temperature of 98, pulse 93, respirations 17 and blood pressure 96/58, Blood work reveals WBC of 9.01, hemoglobin of 9.4 and platelet count of 200, sodium 135, potassium 3.6, BUN/creatinine of 7.3/0.6 patient presented the hospital with sepsis in this patient who did have fever tachycardia elevated lactic acid bradycardia./Sepsis source likely urinary tract patient did have resolution of her fever, CT urogram did not show any bladder mass did shows evidence of hydronephrosis repeat UA has been positive however culture has been negative for now continue with Rocephin and will transition to short course of oral Ceftin on discharge right heel unstageable pressure ulcer advised to keep the area of the pressure 07/28/2024 Patient is seen in follow-up today reports having extreme nausea with some vomiting and unable to tolerate much oral intake. Patient also noted to be constipated and reports has not had a bowel movement in a few days. Will obtain an abdominal x-ray also make the patient n.p.o. and continue with Protonix IV twice daily. Will consult general surgery for evaluation and appreciate input and recommendations. Patient is continued on antibiotics with infectious disease following will likely transition to oral antibiotics on discharge. Patient also noted to have a right heel unstageable wound that is continued with local wound care. 07/29/2024 Patient is seen in follow-up today continuing to report some vomiting and evaluated by general surgery with concerns of possible ileus. Patient is having bowel movements with multiple loose stools and is maintained on IV Protonix. Patient was continued on lactulose scheduled and is having bowel movements. Diet may be advanced per surgery as tolerated and Reglan being added for the ileus. Magnesium noted to be 1.4 today and being replaced per protocol. Patient is extremely weak and will have PT/OT therapy evaluate the patient. Patient reports would like to go home on discharge and has support in the home. 07/30/2024 Patient is seen in follow-up today with no acute overnight issues noted. Patient reports her abdominal pain is improving and is having multiple bowel movements that are loose and is passing gas. Patient was placed on scheduled Reglan per general surgery and has been tolerating the full liquid diet and will continue. Patient is potassium was replaced and magnesium is improved at 1.8 today. Patient with significant weakness and prolonged hospitalization recommend PT/OT therapy as patient reports she is returning home and has support in the home. Will await PT/OT therapy evaluation and discuss further with consultations regarding discharge planning. Possible discharge in the next 24 hours. 07/31/2024 Patient is seen in follow-up today reporting feeling slightly better and mildly distended although is passing a lot of gas. Patient had a bowel movement yesterday but not yet today. Will continue scheduled bowel regimen as well as as needed. Patient did have a low-grade temp and oxygen saturations were at 90%, will obtain a chest x-ray to monitor overnight for any further fevers. Patient will transition to a short course of oral Ceftin on discharge with close outpatient follow-up. General surgery following and has advance diet recommend to continue with this diet and slowly advance over the next few days while at home. Review of systems: Constitutional: No reports of fatigue, fever, or chills Cardiovascular: No reports of chest pain or palpitations Respiratory: No reports of shortness of breath or cough GI: No further reports of nausea, no vomiting, reporting multiple loose stools and passing gas with improved abdominal pain : No reports of dysuria or retention Neurovascular: reports of generalized weakness All medications have been reviewed Physical exam: Gen: This is a 63-year-old female who is awake, alert and oriented x 2-3, baseline, well-developed, elderly appearing, thin built HEENT: Head is atraumatic, normocephalic. Pupils equal, round. Sclerae is anicte paola. NECK: Supple. No JVD. No lymphadenopathy. No thyromegaly. LUNGS: Diminished breath sounds bilaterally otherwise clear to auscultation. No wheezes or rhonchi. No intercostal retractions. HEART: S1, S2 are muffled ABDOMEN: Soft. Distended bowel sounds are hypoactive. No masses. Mild tenderne ss. EXTREMITIES: No pedal edema. No calf tenderness. NEUROLOGICAL: Patient is awake, alert and oriented x2-3. Cranial nerves 2 through 12 are grossly intact. Diffusely weak Assessment: Complicated UTI, present on admission Right heel unstageable pressure ulcer, on admission Abdominal pain with distention, likely secondary to small bowel ileus noted on imaging, improving Lactic acidosis on admission, improved Hypertension Hyperlipidemia History of coronary artery disease Diabetes mellitus, type II uncontrolled with hyperglycemia Mild bilateral hydronephrosis with a nonobstructing renal calculi on the right measuring 4.6 mm Generalized weakness with gait dysfunction GI prophylaxis DVT prophylaxis Full code Plan: Patient being followed by infectious disease maintained on antibiotics. Will transition to oral Ceftin on discharge Urology following recommending outpatient cystoscopy and further urodynamics Patient was having some abdominal pain and placed on bowel regimen along with peterson Lucia with general surgery following and is maintained on full liquids tolerating, reports to improvement in abdominal pain. Patient reports is having bowel movements but did not have one yesterday. Patient had a low-grade temp overnight and low pulse ox reading, will obtain a chest x-ray for further evaluation and monitor overnight and if remaining afebrile, will be discharged in 24 hours Follow-up on repeat labs in the a.m. and will continue to monitor closely. Due to multiple complex medical issues, overall prognosis is guarded Recommend PT/OT therapy evaluation as patient reports she is returning home and has support in the home. Will discuss with consultations regarding discharge planning possibly in the next 24 hours The impression and plan of care has been dictated by Consuelo Combs, Nurse Practitioner as directed. Dr. Migel MD I have performed a history and examination and MDM of this patient, discussed the same with the dictator, and agree with the dictator's assessment and plan as written ,documented as a scribe. Based on total visit time, I have performed more than 50% of the visit. Objective - Vital Signs Vital signs: Vital Signs Temp 98.3 F 08/01/24 07:27 Pulse 86 08/01/24 07:27 Resp 16 08/01/24 07:27 BP 114/73 08/01/24 07:27 Pulse Ox 95 08/01/24 07:27 FiO2 Intake & Output 07/31/24 08/01/24 08/01/24 18:59 06:59 18:59 Intake Total 240 118 Output Total 450 550 Balance -210 -432 Intake: Oral 240 118 Output: Urine 450 550 Other: Voiding Method Diaper Diaper Incontinent Incontinent External Catheter External Catheter - Labs CBC & Chem 7: 07/30/24 05:29 07/30/24 05:29 Labs: Abnormal Lab Results - Last 24 Hours (Table) 07/31/24 07/31/24 07/31/24 Range/Units 12:14 17:05 19:50 POC Glucose (mg/dL) 195 H 205 H 142 H (70-110) mg/dL 08/01/24 Range/Units 05:41 POC Glucose (mg/dL) 142 H (70-110) mg/dL
--- NOTE | 2024-08-01 11:15 | P.PN ---
Subjective Progress Note Date: 08/01/24 SURGICAL PROGRESS NOTE CHIEF COMPLAINT: Urinary tract symptoms HISTORY OF PRESENT ILLNESS: Patient denies any abdominal pain. Denies any nausea or vomiting. She is passing a lot of flatus. It has been about 3 days since her last bowel movement. She did take the lactulose. She is on a full liquid diet. Afebrile. Chest x-ray minimal bibasilar atelectasis. PHYSICAL EXAM: VITAL SIGNS: Reviewed. GENERAL: Well-developed in no acute distress. ABDOMEN: Soft. Minimally distended. Nontender. NEUROLOGIC: Alert and oriented. Cranial nerves II through XII grossly intact. ASSESSMENT: 1. Small bowel ileus resolving 2. Hypomagnesemia improved 3. Possible UTI PLAN: -Dulcolax suppository ordered -Patient can be discharged from surgical standpoint -Continue a good bowel regimen at home -Advance diet as tolerated at home [employer] note has been reviewed by physician. Signing provider agrees with the documented findings, assessment, and plan of care. Objective - Vital Signs Vital signs: Vital Signs Temp 98.3 F 08/01/24 07:27 Pulse 86 08/01/24 07:27 Resp 16 08/01/24 07:27 BP 114/73 08/01/24 07:27 Pulse Ox 95 08/01/24 07:27 FiO2 Intake & Output 07/31/24 08/01/24 08/01/24 18:59 06:59 18:59 Intake Total 240 118 Output Total 450 550 Balance -210 -432 Intake: Oral 240 118 Output: Urine 450 550 Other: Voiding Method Diaper Diaper Incontinent Incontinent External Catheter External Catheter - Labs CBC & Chem 7: 07/30/24 05:29 07/30/24 05:29 Labs: Abnormal Lab Results - Last 24 Hours (Table) 07/31/24 07/31/24 07/31/24 Range/Units 12:14 17:05 19:50 POC Glucose (mg/dL) 195 H 205 H 142 H (70-110) mg/dL 08/01/24 Range/Units 05:41 POC Glucose (mg/dL) 142 H (70-110) mg/dL
[2024-08-01] MEDS: bisacodyL 10 MG SUPP RECTAL STA (12:08)
[2024-08-01 13:04] LABS: Glucose,Whole Blood 113 mg/dL (70-110)
[2024-08-01 15:00] VITALS: BP 143/77; PULSE 98; TEMP 98.5
--- NOTE | 2024-08-02 14:58 | P.PN ---
Subjective Progress Note Date: 08/01/24 Principal diagnosis: Reason for follow-up is UTI Patient is a 63-year-old female with a past medical history significant for CVA/TIA, Diabetes Mellitus, GERD/Reflux, Hyperlipidemia, Hypertension, Myocardial Infarction ([place]), Vascular Disorder, presenting to the ER concerning for urinary incontinence dysuria has been diagnosed with sepsis secondary to UTI. On today's evaluation that is 08/01/2024, the patient continues to be afebrile, the patient is on room air and breathing comfortably, the Pt denies having any chest pain or cough, the patient denies having any abdominal pain no vomiting or any diarrhea. Mentions feeling better. No new lab has been obtained today Objective - Vital Signs Vital signs: Vital Signs Temp 98.3 F 08/01/24 07:27 Pulse 86 08/01/24 07:27 Resp 16 08/01/24 07:27 BP 114/73 08/01/24 07:27 Pulse Ox 95 08/01/24 07:27 FiO2 Intake & Output 07/31/24 08/01/24 08/01/24 18:59 06:59 18:59 Intake Total 240 118 Output Total 450 550 Balance -210 -432 Intake: Oral 240 118 Output: Urine 450 550 Other: Voiding Method Diaper Diaper Diaper Incontinent Incontinent Incontinent External Catheter External Catheter External Catheter - Exam GENERAL DESCRIPTION: Middle-age female lying in bed in no distress RESPIRATORY SYSTEM: Unlabored breathing , decreased breath sounds at bases HEART: S1 S2 regular rate and rhythm , ABDOMEN: Soft , no tenderness - Labs CBC & Chem 7: 07/30/24 05:29 07/30/24 05:29 Labs: Abnormal Lab Results - Last 24 Hours (Table) 07/31/24 07/31/24 08/01/24 Range/Units 17:05 19:50 05:41 POC Glucose (mg/dL) 205 H 142 H 142 H (70-110) mg/dL 08/01/24 Range/Units 13:02 POC Glucose (mg/dL) 113 H (70-110) mg/dL Assessment and Plan (1) Sepsis Status: Acute Code(s): A41.9 - SEPSIS, UNSPECIFIED ORGANISM SNOMED Code(s): 01636378 (2) UTI (urinary tract infection) Status: Acute Code(s): N39.0 - URINARY TRACT INFECTION, SITE NOT SPECIFIED SNOMED Code(s): 52130150 (3) Pressure ulcer, heel, right, unstageable Status: Acute Code(s): L89.610 - PRESSURE ULCER OF RIGHT HEEL, UNSTAGEABLE SNOMED Code(s): 31903681006242973 Plan: 1patient presented the hospital with sepsis in this patient who did have fever tachycardia elevated lactic acid bradycardia./Sepsis source likely urinary has a patient did have significant urinary symptom and positive UA and likely from enteric gram-negative pathogen 2patient did have resolution of her fever, CT urogram did not show any bladder mass did shows evidence of hydronephrosis 3repeat UA has been positive however culture has been negative 4right heel unstageable pressure ulcer advised to keep the area of the pressure, patient also have stage I pressure ulcer to the left heel area currently treated with of pressure 5-patient did have significant bilateral hydronephrosis more than the right side and bladder thickening urology considering outpatient cystoscopy , advised a short course of oral Ceftin on discharge till the patient to follow-up with urology Dictation was produced using [employer] dictation software. please excuse any grammatical, word or spelling errors. Time with Patient: Less than 30
--- NOTE | 2024-08-02 18:30 | P.DS ---
Providers Date of admission: 07/23/24 07:13 Expected date of discharge: 08/01/24 Attending physician: Jannette Lainez Consults: 07/23/24 00:57 Consult Physician Stat Consulting Provider: Edmar Pierre Consult Reason/Comments: Urosepsis, chronic urinary incontinence Do you want consulting provider notified?: Yes, Notify in am 07/23/24 09:32 Consult Physician Routine Consulting Provider: Jeanie Patricio Consult Reason/Comments: Complicated UTI Do you want consulting provider notified?: Yes 07/28/24 11:54 Consult Physician Routine Consulting Provider: Long Lilly Consult Reason/Comments: abd pain, distention Do you want consulting provider notified?: Yes Primary care physician: Crystal Art Hospital Course: Final diagnosis Complicated UTI, present on admission Right heel unstageable pressure ulcer, on admission Abdominal pain with distention, likely secondary to small bowel ileus noted on imaging, improving Lactic acidosis on admission, improved Hypertension Hyperlipidemia History of coronary artery disease Diabetes mellitus, type II uncontrolled with hyperglycemia Mild bilateral hydronephrosis with a nonobstructing renal calculi on the right measuring 4.6 mm Generalized weakness with gait dysfunction GI prophylaxis DVT prophylaxis Full code Discharge disposition Patient is being discharged in a stable condition with guarded prognosis to home with home care. Patient will follow-up with Dr. Art in the outpatient setting upon discharge. Patient is to continue with oral antibiotics and close outpatient follow-up with urology, infectious disease, general surgery as scheduled. Total time taken is greater than 35 minutes. Hospital course This is a 63-year-old female who was recently admitted with complicated UTI with cystitis along with mild bilateral hydronephrosis with nonobstructing renal calculi on the right with multiple consultations including infectious disease and urology following. Patient also evaluated by general surgery as patient was noted to have an ileus and has been improved and is having bowel movements tolerating diet with no further abdominal pain noted. Patient will continue on a short course of oral antibiotics and discharge recommending outpatient follow- up at the wound care center along with infectious disease. Patient reports to feeling better and would like to go home. Patient has been cleared by consultations. Please refer to consultation notes for further HPI. Currently no reports of chest pain, shortness of breath, or palpitations. Patient is afebrile. No reports of nausea or vomiting and patient is tolerating diet. Patient is to continue on scheduled bowel regimen as well as as needed and recommend outpatient follow-up with general surgery. Patient will be going home with home care today. Given significant comorbidities, patient is high risk for readmissions and has had multiple hospitalizations. Physical exam: Gen: This is a 63-year-old female who is awake, alert and oriented x 2-3, baseline, well-developed, elderly appearing, ill-appearing HEENT: Head is atraumatic, normocephalic. Pupils equal, round. Sclerae is anicteric. NECK: Supple. No JVD. No lymphadenopathy. No thyromegaly. LUNGS: Diminished breath sounds bilaterally otherwise clear to auscultation. No wheezes or rhonchi. No intercostal retractions. HEART: S1, S2 are muffled ABDOMEN: Soft. Less distended, nontender bowel sounds are present. No masses. No tenderness. EXTREMITIES: No pedal edema. No calf tenderness. 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 Cranial nerves 2 through 12 are grossly intact. Please refer to medication reconciliation sheet for a list of medications. The impression and plan of care has been dictated by Consuelo Combs, Nurse Practitioner as directed. Dr. Isaias MD I have performed a history and examination and MDM of this patient, discussed the same with the dictator, and agree with the dictator's assessment and plan as written ,documented as a scribe. Based on total visit time, I have performed more than 50% of the visit. Patient Condition at Discharge: Fair Plan - Discharge Summary New Discharge Prescriptions: New Simethicone 40 mg/0.6 ml Drops [Mylicon Drops] 40 mg PO QID #7 ml Acetaminophen Tab [Tylenol] 650 mg PO Q6HR PRN tab PRN Reason: Mild Pain Or Fever > 100.5 cefuroxime axetiL [Ceftin] 500 mg PO BID 7 Days #14 tab Lactulose [Cephulac] 20 gm PO BID #360 ml Oxybutynin ER [Ditropan XL] 10 mg PO DAILY #30 tab Pantoprazole [Protonix] 40 mg PO DAILY #30 tab Ondansetron Odt [Zofran Odt] 4 mg PO Q8HR PRN #20 tab PRN Reason: Nausea Continue Atorvastatin [Lipitor] 80 mg PO HS INSULIN LISPRO (humaLOG) [humaLOG] See Protocol SQ ACHS Aspirin 81 mg PO BID #60 tab Clopidogrel [Plavix] 75 mg PO DAILY 30 Days #30 tab Gabapentin [Neurontin] 100 mg PO HS Fenofibrate [Lofibra] 160 mg PO DAILY DULoxetine HCL [Cymbalta] 60 mg PO HS cilostazoL [Pletal] 50 mg PO BID Changed HYDROcodone/APAP 5-325MG [[place] 5-325] 1 tab PO BID PRN #8 tab PRN Reason: Severe Pain (Scale 7 To 10) Discontinued lisinopriL [Zestril] 20 mg PO DAILY Nitrofurantoin Monohyd/M-Cryst [Nitrofurantoin Monohyd/M-Cryst 100 mg] 100 mg PO Q12H Discharge Medication List Atorvastatin [Lipitor] 80 mg PO HS 06/26/16 [History] Clopidogrel [Plavix] 75 mg PO DAILY 30 Days #30 tab 01/05/21 [Rx] DULoxetine HCL [Cymbalta] 60 mg PO HS 05/30/24 [History] Fenofibrate [Lofibra] 160 mg PO DAILY 05/30/24 [History] Gabapentin [Neurontin] 100 mg PO HS 05/30/24 [History] INSULIN LISPRO (humaLOG) [humaLOG] See Protocol SQ ACHS 05/30/24 [History] cilostazoL [Pletal] 50 mg PO BID 05/30/24 [History] Aspirin 81 mg PO BID #60 tab 05/31/24 [Rx] Acetaminophen Tab [Tylenol] 650 mg PO Q6HR PRN tab 08/01/24 [Rx] HYDROcodone/APAP 5-325MG [[place] 5-325] 1 tab PO BID PRN #8 tab 08/01/24 [Rx] Lactulose [Cephulac] 20 gm PO BID #360 ml 08/01/24 [Rx] Ondansetron Odt [Zofran Odt] 4 mg PO Q8HR PRN #20 tab 08/01/24 [Rx] Oxybutynin ER [Ditropan XL] 10 mg PO DAILY #30 tab 08/01/24 [Rx] Pantoprazole [Protonix] 40 mg PO DAILY #30 tab 08/01/24 [Rx] Simethicone 40 mg/0.6 ml Drops [Mylicon Drops] 40 mg PO QID #7 ml 08/01/24 [Rx] cefuroxime axetiL [Ceftin] 500 mg PO BID 7 Days #14 tab 08/01/24 [Rx] Follow up Appointment(s)/Referral(s): Edison Bower MD [STAFF PHYSICIAN] - Edmar Pierre MD [STAFF PHYSICIAN] - 1 Week Crystal Art DO [Primary Care Provider] - 1-2 days [facility], [NON-STAFF] - 1-2 Days (resumption of care. any questions please call [facility]. ) Patient Instructions/Handouts: *Surgery [facility] - [facility] Catheter Instructions, Urinary Incontinence (ED), How to Change a Catheter Drainage Bag (DC) Activity/Diet/Wound Care/Special Instructions: Activity limited until follow-up Follow-up with primary care provider on discharge Follow-up with urology outpatient Continue taking medications as prescribed Continue on bowel regimen daily and if having loose stools including more than 2/day hold the lactulose until more formed and use as needed Discharge Disposition: HOME WITH HOME HEALTH SERVICES
== END 2024-08-01 16:38 | disposition home health service (06) | DRG 690 ==
LOC: EC 21:29 → 1SOBS 07-23 01:00 → OBSVTOIN 07-23 07:13 → 1SOBS 07-23 08:06 → 6NMEDSUR 07-25 06:38
PROVIDERS: ADMIT Hospitalist; ATTEND Hospitalist
DX: N13.6 Pyonephrosis (principal); L89.610 Pressure ulcer of right heel, unstageable; E87.20 Acidosis, unspecified; I69.351 Hemiplegia and hemiparesis following cerebral infarction affecting right dominant side; E11.42 Type 2 diabetes mellitus with diabetic polyneuropathy; I10 Essential (primary) hypertension; E11.65 Type 2 diabetes mellitus with hyperglycemia; E11.51 Type 2 diabetes mellitus with diabetic peripheral angiopathy without gangrene; E78.5 Hyperlipidemia, unspecified; K90.0 Celiac disease; K31.9 Disease of stomach and duodenum, unspecified; N39.41 Urge incontinence; E83.42 Hypomagnesemia; F41.1 Generalized anxiety disorder; I25.10 Atherosclerotic heart disease of native coronary artery without angina pectoris; I25.2 Old myocardial infarction; N20.0 Calculus of kidney; N31.9 Neuromuscular dysfunction of bladder, unspecified; Z79.02 Long term (current) use of antithrombotics/antiplatelets; Z79.82 Long term (current) use of aspirin; Z79.899 Other long term (current) drug therapy; Z87.11 Personal history of peptic ulcer disease; Z82.49 Family history of ischemic heart disease and other diseases of the circulatory system; Z87.442 Personal history of urinary calculi; Z90.49 Acquired absence of other specified parts of digestive tract; Z95.5 Presence of coronary angioplasty implant and graft
CPT/HCPCS: 36415; 71045; 74018; 74177; 74178; 74400; 76770; 80048; 80053; 81001; 83036; 83605; 83735; 84145; 85025; 86140; 87040; 87086; 94760; 96361; 96365; 96375; 99285

== ENCOUNTER 2024-08-03 17:38 | Inpatient (IN) | payer MEDICARE ==
--- NOTE | 2024-08-03 17:41 | ED ---
SOB HPI - General Stated Complaint: BLAYNE Time Seen by Provider: 08/03/24 17:40 Source: RN notes reviewed, old records reviewed, Caregiver Mode of arrival: EMS Limitations: altered mental status, physical limitation - History of Present Illness Initial Comments: This is a 63-year-old female to the ER for evaluation patient has a recent inpatient hospitalization for pneumonia and severe COPD. Family called EMS today secondary to severe shortness of breath patient was found to be in significant distress with significant low oxygen and altered mental status. Patient is brought to the ER on supportive breathing measures including BiPAP MD Complaint: shortness of breath, cough, "asthma attack" -: hour(s) Severity: severe Severity scale (1-10): 10 Consistency: constant Improves With: nothing Worsens With: exertion Known History Of: COPD, asthma Associated Symptoms: cough Treatments Prior to Arrival: oxygen, bronchodilator - Related Data Home Medications Medication Instructions Recorded Confirmed Atorvastatin [Lipitor] 80 mg PO HS 06/26/16 08/03/24 DULoxetine HCL [Cymbalta] 60 mg PO HS 05/30/24 08/03/24 Fenofibrate [Lofibra] 160 mg PO DAILY 05/30/24 08/03/24 Gabapentin [Neurontin] 100 mg PO HS 05/30/24 08/03/24 INSULIN LISPRO (humaLOG) [humaLOG] See Protocol SQ ACHS 05/30/24 08/03/24 cilostazoL [Pletal] 50 mg PO BID 05/30/24 08/03/24 Previous Rx's Medication Instructions Recorded Clopidogrel [Plavix] 75 mg PO DAILY 30 Days #30 tab 01/05/21 Aspirin 81 mg PO BID #60 tab 05/31/24 Acetaminophen Tab [Tylenol] 650 mg PO Q6HR PRN tab 08/01/24 HYDROcodone/APAP 5-325MG [[place] 1 tab PO BID PRN #8 tab 08/01/24 5-325] Lactulose [Cephulac] 20 gm PO BID #360 ml 08/01/24 Ondansetron Odt [Zofran Odt] 4 mg PO Q8HR PRN #20 tab 08/01/24 Oxybutynin ER [Ditropan XL] 10 mg PO DAILY #30 tab 08/01/24 Pantoprazole [Protonix] 40 mg PO DAILY #30 tab 08/01/24 Simethicone 40 mg/0.6 ml Drops 40 mg PO QID #7 ml 08/01/24 [Mylicon Drops] cefuroxime axetiL [Ceftin] 500 mg PO BID 7 Days #14 tab 08/01/24 Allergies Allergy/AdvReac Type Severity Reaction Status Date / Time No Known Allergies Allergy Verified 08/03/24 18:43 Review of Systems ROS Statement: Those systems with pertinent positive or pertinent negative responses have been documented in the HPI. ROS Other: All systems not noted in ROS Statement are negative. 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 , unsteady gait., see Cardiology [facility] INPT FOR LT FOOT ULCER-WAS SEEN IN WOUND CARE 03/26/23-HAS DRESSING ON FOOT Last Myocardial Infarction Date:: february 2017 History of Any Multi-Drug Resistant Organisms: None Reported Past Surgical History: Back Surgery, Cholecystectomy, Heart Catheterization With Stent, Orthopedic Surgery Additional Past Surgical History / Comment(s): Right 5th toe amputation, lumbar fusion, spinal cord stimulator in place but not working., left knee arthroscopy, EGD, PATRICIA, 3 cardiac stents, Aortoram, stent to left iliac artery. , stent right leg above the knee, right 4th toe amputation. ANGIOGRAM,m 04/11/23 left toes amputation. Past Anesthesia/Blood Transfusion Reactions: No Reported Reaction Additional Past Anesthesia/Blood Transfusion Reaction / Comment(s): . Date of Last Stent Placement:: 12/14/2021 Past Psychological History: Anxiety Smoking Status: Current every day smoker Past Alcohol Use History: None Reported Past Drug Use History: None Reported - Past Family History Father Family Medical History: Cancer, Liver Disease Additional Family Medical History / Comment(s): Idiopathic cirrhosis of liver, Liver Cancer. Mother Family Medical History: Coronary Artery Disease (CAD), Myocardial Infarction (ND) Additional Family Medical History / Comment(s): Multiple stents. Mother at the age of 77 or 78 from [place]. General Exam Limitations: altered mental status, physical limitation General appearance: alert, anxious, lethargic, obtunded, in distress Head exam: Present: atraumatic, normocephalic, normal inspection Eye exam: Present: normal appearance, PERRL, EOMI. Absent: scleral icterus, conjunctival injection, periorbital swelling ENT exam: Present: normal exam, mucous membranes moist Neck exam: Present: normal inspection. Absent: tenderness, meningismus, lymphadenopathy Respiratory exam: Present: normal lung sounds bilaterally. Absent: respiratory distress, wheezes, rales, rhonchi, stridor Cardiovascular Exam: Present: regular rate, normal rhythm, normal heart sounds. Absent: systolic murmur, diastolic murmur, rubs, gallop, clicks GI/Abdominal exam: Present: soft, normal bowel sounds. Absent: distended, tenderness, guarding, rebound, rigid Extremities exam: Present: normal inspection, full ROM, normal capillary refill. Absent: tenderness, pedal edema, joint swelling, calf tenderness Back exam: Present: normal inspection Neurological exam: Present: alert, oriented X3, CN II-XII intact Psychiatric exam: Present: normal affect, normal mood Skin exam: Present: warm, dry, intact, normal color. Absent: rash Course Vital Signs 08/03/24 08/03/24 08/03/24 17:39 17:52 18:02 Temperature 100.3 F H Pulse Rate 139 H 124 H Pulse Rate [ Telegraph Inspector ] Respiratory 40 H 28 H 27 H Rate Blood Pressure 123/103 99/66 Blood Pressure [Right Arm] O2 Sat by Pulse 100 97 Oximetry Fraction of Inspired Oxygen (FIO2) 08/03/24 08/03/24 08/03/24 18:04 18:05 18:40 Temperature Pulse Rate 108 H Pulse Rate [ Telegraph Inspector ] Respiratory Rate Blood Pressure Blood Pressure [Right Arm] O2 Sat by Pulse Oximetry Fraction of 40 40 Inspired Oxygen (FIO2) 08/03/24 08/03/24 08/03/24 19:01 19:35 19:58 Temperature Pulse Rate 107 H 104 H Pulse Rate [ Telegraph Inspector ] Respiratory 24 Rate Blood Pressure 84/52 Blood Pressure [Right Arm] O2 Sat by Pulse 98 Oximetry Fraction of 40 Inspired Oxygen (FIO2) 08/03/24 08/03/24 08/03/24 20:44 20:51 21:19 Temperature 97.5 F L 98.2 F Pulse Rate 94 89 Pulse Rate [ Telegraph Inspector ] Respiratory 23 28 H Rate Blood Pressure 86/65 84/58 Blood Pressure [Right Arm] O2 Sat by Pulse 98 98 Oximetry Fraction of Inspired Oxygen (FIO2) 08/03/24 08/03/24 08/03/24 23:03 23:30 23:34 Temperature Pulse Rate 80 80 Pulse Rate [ Telegraph Inspector ] Respiratory 21 19 Rate Blood Pressure 93/72 100/66 Blood Pressure [Right Arm] O2 Sat by Pulse 99 100 Oximetry Fraction of 40 Inspired Oxygen (FIO2) 08/04/24 08/04/24 08/04/24 00:58 01:41 04:32 Temperature Pulse Rate 79 77 76 Pulse Rate [ Telegraph Inspector ] Respiratory 18 18 18 Rate Blood Pressure 94/65 88/65 91/64 Blood Pressure [Right Arm] O2 Sat by Pulse 97 99 96 Oximetry Fraction of Inspired Oxygen (FIO2) 08/04/24 08/04/24 08/04/24 06:28 08:00 08:07 Temperature 97.5 F L Pulse Rate 73 72 Pulse Rate [ 79 Telegraph Inspector ] Respiratory 18 18 Rate Blood Pressure 90/61 Blood Pressure 102/64 [Right Arm] O2 Sat by Pulse 96 97 96 Oximetry Fraction of Inspired Oxygen (FIO2) 08/04/24 08/04/24 08/04/24 08:17 12:00 12:23 Temperature 97.4 F L Pulse Rate 75 75 Pulse Rate [ 76 Telegraph Inspector ] Respiratory 16 Rate Blood Pressure Blood Pressure 96/65 [Right Arm] O2 Sat by Pulse 96 Oximetry Fraction of Inspired Oxygen (FIO2) 08/04/24 08/04/24 12:32 14:00 Temperature Pulse Rate 76 Pulse Rate [ 82 Telegraph Inspector ] Respiratory 18 Rate Blood Pressure Blood Pressure [Right Arm] O2 Sat by Pulse Oximetry Fraction of Inspired Oxygen (FIO2) - Reevaluation(s) Reevaluation #1: 08/03/24 18:25 Medical records reviewed Reevaluation #2: 08/03/24 20:05 Patient has labile blood pressure but improving Reevaluation #3: 08/03/24 20:05 Patient informed of results and questions answered Reevaluation #4: Was pt. sent in by a medical professional or institution (, PA, COMBINATION WORKER, urgent care, hospital, or [facility]...) When possible be specific @ -no Did you speak to anyone other than the patient for history (EMS, parent, family, police, friend...)? What history was obtained from this source @ -no Did you review nursing and triage notes (agree or disagree)? Why? @ -agree Are old charts reviewed (outside hosp., previous admission, EMS record, old EKG, old radiological studies, urgent care reports/EKG's, [facility] records)? Report findings @ -yes Differential Diagnosis (chest pain, altered mental status, abdominal pain women, abdominal pain men, vaginal bleeding, weakness, fever, dyspnea, syncope, headache, dizziness, GI bleed, back pain, seizure, CVA, palpatations, mental health, musculoskeletal)? @ -prior EKG interpreted by me (3pts min.). @ -yes X-rays interpreted by me (1pt min.). @ -yes positive for pneumonia CT interpreted by me (1pt min.). @ -no U/S interpreted by me (1pt. min.). @ -no What testing was considered but not performed or refused? (CT, X-rays, U/S, labs)? Why? @ -none What meds were considered but not given or refused? Why? @ -none Did you discuss the management of the patient with other professionals (professionals i.e. , PA, COMBINATION WORKER, lab, RT, psych nurse, social welfare clerk, electronic field service engineer, teacher, casino surveillance officer, casework manager)? Give summary @ -no Was smoking cessation discussed for >3mins.? @ -no Was critical care preformed (if so, how long)? @ -yes31 Were there social determinants of health that impacted care today? How? (Homelessness, low income, unemployed, alcoholism, drug addiction, transportation, low edu. Level, literacy, decrease access to med. care, fci, rehab)? @ -none Was there de-escalation of care discussed even if they declined (Discuss DNR or withdrawal of care, Hospice)? DNR status @ -no What co-morbidities impacted this encounter? (DM, HTN, Smoking, COPD, CAD, Cancer, CVA, ARF, Chemo, Hep., AIDS, mental health diagnosis, sleep apnea, morbid obesity)? @ -none Was patient admitted / discharged? Hospital course, mention meds given and route, prescriptions, significant lab abnormalities, going to OR and other pertinent info. @ - 63 female to the ER for evaluation of respiratory failure. Hypoxic likely hypercapnic respiratory failure fever recent pneumonia diagnosis started on IV antibiotics recent amputation and surgery of the left foot possible occult bacteremia patient will be admitted for IV antibiotics and sepsis Admitted Undiagnosed new problem with uncertain prognosis? @ -no Drug Therapy requiring intensive monitoring for toxicity (Heparin, Nitro, Insulin, Cardizem)? @ -no Were any procedures done? @ -no Diagnosis/symptom? @ -Acute respiratory failure and hypoxia with pneumonia Acute, or Chronic, or Acute on Chronic? @ -Acute Uncomplicated (without systemic symptoms) or Complicated (systemic symptoms)? @ -Complicated Side effects of treatment? @ -no Exacerbation, Progression, or Severe Exacerbation? @ -exacerbation Poses a threat to life or bodily function? How? (Chest pain, [place], [place], pneumonia, PE, COPD, DKA, ARF, appy, cholecystitis, CVA, Diverticulitis, Homicidal, Suicidal, threat to staff... and all critical care pts) @ -yes with acute respiratory failure Reevaluation #5: Differential Dyspnea: Coronary syndrome, arrhythmia, tamponade, asthma, COPD, pulmonary embolism, pneumonia, pneumothorax, pulmonary effusion, anaphylaxis, diabetic ketoacidosis, flailed chest, pulmonary contusion, diaphragmatic rupture, anemia, neuromuscular, this is not meant to be an all-inclusive list. Differential Fever: Pneumonia, viral URI, endocarditis, myocarditis, pericarditis, otitis, sinusitis, peritonsillar Abscess, retropharyngeal Abscess, epiglottitis, peritonitis, appendicitis, Corinne cystitis, diverticulitis, hepatitis, colitis, UTI, PID, TOA, pyelonephritis, prostatitis, epididymitis, meningitis, encephalitis, pulmonary embolism, CVA, thyroid storm, pancreatitis, adrenal crisis, cavernous sinus thrombosis, this is not meant to be an all-inclusive list. - Consultations Consultation #1: Spoke with [facility] who agrees to admit this patient Medical Decision Making - Medical Decision Making 63 female to the ER for evaluation of respiratory failure. Hypoxic likely hypercapnic respiratory failure fever recent pneumonia diagnosis started on IV antibiotics recent amputation and surgery of the left foot possible occult bacteremia patient will be admitted for IV antibiotics and sepsis - Lab Data Result diagrams: 08/10/24 06:29 08/10/24 06:29 Lab Results 08/03/24 08/03/24 08/03/24 Range/Units 17:52 17:52 17:52 WBC 19.35 H (4.50-10.00) 10*3/uL RBC 4.66 (4.10-5.20) 10*6/uL Hgb 13.0 (12.0-15.0) g/dL Hct 38.1 (37.2-46.3) % MCV 81.8 (80.0-97.0) fL MCH 27.9 (27.0-32.0) pg MCHC 34.1 (32.0-37.0) g/dL Plt Count 681 H D (140-440) 10*3/uL MPV 9.4 L (9.5-12.2) fL Immature Gran % (Auto) 0.8 % Neutrophils % 84.0 % Lymphocytes % 9.9 % Monocytes % 4.9 % Eosinophils % 0.0 % Basophils % 0.4 % Immature Gran # 0.15 H (0.00-0.04) 10*3/uL Neutrophils # 16.27 H (1.80-7.70) 10*3/uL Lymphocytes # 1.91 (0.90-5.00) 10*3/uL Monocytes # 0.95 (0.20-1.00) 10*3/uL Eosinophils # 0.00 L (0.04-0.35) 10*3/uL Basophils # 0.07 (0.00-0.10) 10*3/uL PT (10.0-12.5) sec INR (<1.2) APTT (22.0-30.0) sec Sodium 131 L (137-145) mmol/L Potassium 4.3 (3.5-5.1) mmol/L Chloride 100 (98-107) mmol/L Carbon Dioxide 18 L (22-30) mmol/L Anion Gap 13 mmol/L BUN 22 H (7-17) mg/dL Creatinine 1.36 H (0.52-1.04) mg/dL Est GFR (CKD-EPI)AfAm 49 (>60 ml/min/1.73 sqM) Est GFR (CKD-EPI)NonAf 42 (>60 ml/min/1.73 sqM) Glucose 389 H (74-99) mg/dL POC Glucose (mg/dL) (70-110) mg/dL POC Glu Senior Policy Analyst ID Lactic Ac Sepsis Rflx Plasma Lactic Acid Yousif 2.7 H* (0.7-2.0) mmol/L Calcium 8.0 L (8.4-10.2) mg/dL Magnesium 1.8 (1.6-2.3) mg/dL Total Bilirubin 0.7 (0.2-1.3) mg/dL AST 31 (14-36) U/L ALT 13 (4-34) U/L Alkaline Phosphatase 91 (38-126) U/L Troponin I (0.000-0.034) ng/mL NT-Pro-B Natriuret Pep 39324 pg/mL Total Protein 6.0 L (6.3-8.2) g/dL Albumin 3.1 L (3.5-5.0) g/dL 08/03/24 08/03/24 08/03/24 Range/Units 17:52 17:54 18:28 WBC (4.50-10.00) 10*3/uL RBC (4.10-5.20) 10*6/uL Hgb (12.0-15.0) g/dL Hct (37.2-46.3) % MCV (80.0-97.0) fL MCH (27.0-32.0) pg MCHC (32.0-37.0) g/dL Plt Count (140-440) 10*3/uL MPV (9.5-12.2) fL Immature Gran % (Auto) % Neutrophils % % Lymphocytes % % Monocytes % % Eosinophils % % Basophils % % Immature Gran # (0.00-0.04) 10*3/uL Neutrophils # (1.80-7.70) 10*3/uL Lymphocytes # (0.90-5.00) 10*3/uL Monocytes # (0.20-1.00) 10*3/uL Eosinophils # (0.04-0.35) 10*3/uL Basophils # (0.00-0.10) 10*3/uL PT 13.8 H (10.0-12.5) sec INR 1.3 H (<1.2) APTT 22.4 (22.0-30.0) sec Sodium (137-145) mmol/L Potassium (3.5-5.1) mmol/L Chloride (98-107) mmol/L Carbon Dioxide (22-30) mmol/L Anion Gap mmol/L BUN (7-17) mg/dL Creatinine (0.52-1.04) mg/dL Est GFR (CKD-EPI)AfAm (>60 ml/min/1.73 sqM) Est GFR (CKD-EPI)NonAf (>60 ml/min/1.73 sqM) Glucose (74-99) mg/dL POC Glucose (mg/dL) (70-110) mg/dL POC Glu Senior Policy Analyst ID Lactic Ac Sepsis Rflx Y Plasma Lactic Acid Yousif (0.7-2.0) mmol/L Calcium (8.4-10.2) mg/dL Magnesium (1.6-2.3) mg/dL Total Bilirubin (0.2-1.3) mg/dL AST (14-36) U/L ALT (4-34) U/L Alkaline Phosphatase (38-126) U/L Troponin I 0.376 H* (0.000-0.034) ng/mL NT-Pro-B Natriuret Pep pg/mL Total Protein (6.3-8.2) g/dL Albumin (3.5-5.0) g/dL 08/03/24 Range/Units 18:28 WBC (4.50-10.00) 10*3/uL RBC (4.10-5.20) 10*6/uL Hgb (12.0-15.0) g/dL Hct (37.2-46.3) % MCV (80.0-97.0) fL MCH (27.0-32.0) pg MCHC (32.0-37.0) g/dL Plt Count (140-440) 10*3/uL MPV (9.5-12.2) fL Immature Gran % (Auto) % Neutrophils % % Lymphocytes % % Monocytes % % Eosinophils % % Basophils % % Immature Gran # (0.00-0.04) 10*3/uL Neutrophils # (1.80-7.70) 10*3/uL Lymphocytes # (0.90-5.00) 10*3/uL Monocytes # (0.20-1.00) 10*3/uL Eosinophils # (0.04-0.35) 10*3/uL Basophils # (0.00-0.10) 10*3/uL PT (10.0-12.5) sec INR (<1.2) APTT (22.0-30.0) sec Sodium (137-145) mmol/L Potassium (3.5-5.1) mmol/L Chloride (98-107) mmol/L Carbon Dioxide (22-30) mmol/L Anion Gap mmol/L BUN (7-17) mg/dL Creatinine (0.52-1.04) mg/dL Est GFR (CKD-EPI)AfAm (>60 ml/min/1.73 sqM) Est GFR (CKD-EPI)NonAf (>60 ml/min/1.73 sqM) Glucose (74-99) mg/dL POC Glucose (mg/dL) 415 H (70-110) mg/dL POC Glu Senior Policy Analyst ID [place] Lactic Ac Sepsis Rflx Plasma Lactic Acid Yousif (0.7-2.0) mmol/L Calcium (8.4-10.2) mg/dL Magnesium (1.6-2.3) mg/dL Total Bilirubin (0.2-1.3) mg/dL AST (14-36) U/L ALT (4-34) U/L Alkaline Phosphatase (38-126) U/L Troponin I (0.000-0.034) ng/mL NT-Pro-B Natriuret Pep pg/mL Total Protein (6.3-8.2) g/dL Albumin (3.5-5.0) g/dL - EKG Data -: EKG Interpreted by Me (EKG is sinus tachycardia 135 CO 135 QRS 89 QTc 353) - Radiology Data Radiology results: report reviewed (Chest x-ray positive for pneumonia), image reviewed Critical Care Time Critical Care Time: Yes Total Critical Care Time: 31 Disposition Clinical Impression: Acute exacerbation of chronic obstructive pulmonary disease, Acute respiratory failure, Hypoxia, Sepsis, Fever Disposition: ADMITTED IP TO THIS HOSP Condition: Serious Is patient prescribed a controlled substance at d/c from ED?: No Time of Disposition: 20:00
[2024-08-03] MEDS: SODIUM CHLORIDE 0.9% 1,000 ML IV ONE ×2 (17:59→21:28)
[2024-08-03] MEDS: MAGNESIUM SULFATE-D5W PMX 1 GM in DEXTROSE/WATER 1 100ML.BAG IVPB STA (17:59)
[2024-08-03 18:10] LABS: Basophils # (A) 0.07 10*3/uL (0.00-0.10); Basophils % (A) 0.4 %; Eosinophils # (A) 0.00 10*3/uL (0.04-0.35); Eosinophils % (A) 0.0 %; HCT 38.1 % (37.2-46.3); HGB 13.0 g/dL (12.0-15.0); Lymphocytes # (A) 1.91 10*3/uL (0.90-5.00); Lymphocytes % (A) 9.9 %; MCH 27.9 pg (27.0-32.0); MCHC 34.1 g/dL (32.0-37.0); MCV 81.8 fL (80.0-97.0); Monocytes # (A) 0.95 10*3/uL (0.20-1.00); Monocytes % (A) 4.9 %; Neutrophils # (A) 16.27 10*3/uL (1.80-7.70); Neutrophils % (A) 84.0 %; RBC 4.66 10*6/uL (4.10-5.20); RDW 13.1 % (11.5-14.5); WBC 19.35 10*3/uL (4.50-10.00)
--- NOTE | 2024-08-03 18:18 | XR ---
EXAMINATION TYPE: XR chest 1V portable DATE OF EXAM: 08/03/2024 6:01 PM COMPARISON: Chest radiographs from 07/31/2024. CLINICAL INDICATION: Female, 63 years old with history of sob; [facility] TECHNIQUE: XR chest 1V portable Frontal view of the chest. FINDINGS: Lungs/Pleura: Multifocal airspace opacities. No evidence of pneumothorax or pleural effusion. Pulmonary vascularity: Unremarkable. Heart/mediastinum: Cardiomediastinal silhouette is unremarkable. Musculoskeletal: No acute osseous pathology. Stimulator leads project over the spine. Other findings: None IMPRESSION: Multifocal airspace opacities concerning for pneumonia. [facility], , 08/03/2024 6:15 PM
[2024-08-03] MEDS: ACETAMINOPHEN IV (For NPO) 1,000 MG in EMPTY BAG 1 BAG IVPB STA (18:19)
[2024-08-03 18:21] LABS: INR 1.3 (<1.2); Partial Thromboplastin Time 22.4 sec (22.0-30.0); Prothrombin Time 13.8 sec (10.0-12.5)
[2024-08-03 18:22] LABS: Platelet Count 681 10*3/uL (140-440)
[2024-08-03 18:25] LABS: ALT 13 U/L (4-34); AST 31 U/L (14-36); African American GFR (CKD) 49 (>60 ml/min/1.73 sqM); Albumin 3.1 g/dL (3.5-5.0); Alkaline Phosphatase 91 U/L (38-126); Anion Gap 13 mmol/L; Blood Urea Nitrogen 22 mg/dL (7-17); Calcium 8.0 mg/dL (8.4-10.2); Carbon Dioxide 18 mmol/L (22-30); Chloride 100 mmol/L (98-107); Glucose 389 mg/dL (74-99); Magnesium 1.8 mg/dL (1.6-2.3); Non-African American GFR(CKD) 42 (>60 ml/min/1.73 sqM); Potassium 4.3 mmol/L (3.5-5.1); Sodium 131 mmol/L (137-145); Total Protein 6.0 g/dL (6.3-8.2)
[2024-08-03 18:29] LABS: Glucose,Whole Blood 415 mg/dL (70-110)
[2024-08-03] MEDS: IBUPROFEN IV 800 MG in SODIUM CHLORIDE 0.9% 250 ML IV ONE (18:31)
[2024-08-03 18:34] LABS: NT-Pro-B-Type Natriuretic Pept 12900 pg/mL
[2024-08-03] MEDS: IPRATROPIUM 0.5 MG/2.5 ML NEBU INHALATION STA (18:40)
[2024-08-03] MEDS: ALBUTEROL NEBULIZED 2.5 MG/3 ML INHALATION STA (18:40)
[2024-08-03] MEDS: INSULIN REGULAR 100 UNIT/ML VIAL (IV) IV ONE (18:58)
[2024-08-03] MEDS: SODIUM CHLORIDE 0.9% 1,000 ML IV SCH (19:29)
[2024-08-03] MEDS: LEVOFLOXACIN 750MG-D5W PMX 750 MG in DEXTROSE/WATER 1 150ML.BAG IVPB SCH (19:36)
[2024-08-03] MEDS ORDERED: NALOXONE 0.4 MG/ML 1 ML VIAL IV PRN (19:59)
[2024-08-03] MEDS: PIPERACILLIN-TAZOBACTAM 3.375 GM in SODIUM CHLORIDE 0.9% 100 ML IVPB SCH (21:24)
[2024-08-03 22:36] LABS: Glucose,Whole Blood 428 mg/dL (70-110)
[2024-08-03] MEDS ORDERED: DEXTROSE 50% SYRINGE 50 ML IVP PRN ×2 (22:52)
[2024-08-03] MEDS: PANTOPRAZOLE 40 MG/10 ML VIAL IVP SCH (23:01)
[2024-08-03] MEDS: HEPARIN SODIUM,PORCINE 5,000 UNIT/ML 1 ML VIAL SQ SCH (23:01)
[2024-08-03] MEDS: INSULIN GLARGINE (LANTUS) 100 UNIT/ML SYR SQ SCH (23:09)
[2024-08-03] MEDS: IPRATROPIUM-ALBUTEROL 3 ML NEB INHALATION SCH (23:32)
[2024-08-03] MEDS: INSULIN LISPRO (HumaLOG) 100 UNIT/ML 10 mL VL SQ ONE (23:41)
[2024-08-04 00:58] LABS: Glucose,Whole Blood 529 mg/dL (70-110)
--- NOTE | 2024-08-04 01:00 | HP ---
HISTORY AND PHYSICAL CHIEF COMPLAINT: Shortness of breath as well as some change in mental status. HISTORY OF PRESENT ILLNESS: This 63-year-old woman with a past medical history of multiple medical problems, was recently discharged with complicated UTI as well as right heel pressure ulcer. The patient also had some abdominal distention. Currently, the patient is complaining of some shortness of breath, fever. The patient had features of sepsis. The possibility of pneumonia is also considered and the patient is being admitted for evaluation and treatment. The patient is also hypotensive also. The blood sugars are elevated, troponins elevated, lactic acid is also elevated. The patient is slightly confused. Most history is taken by discussion with staff and as well as discussion with the family at the bedside. PAST MEDICAL HISTORY: Recent UTI, heel ulcer. Rest of the history and chart is also reviewed. HOME MEDICATIONS: Reviewed include Pletal. Doses and rest of medications reviewed. ALLERGIES: None. FAMILY HISTORY: Could not could not be taken. SOCIAL HISTORY: Could not could not be taken. REVIEW OF SYSTEMS: Could not could not be taken. PHYSICAL EXAMINATION: VITAL SIGNS: Pulse is 89, blood pressure 80/50, and respirations 20. HEENT: Conjunctivae normal. NECK: No JVD. CARDIOVASCULAR: S1, S2. RESPIRATIONS: Bilateral scattered rhonchi and crackles. ABDOMEN: Soft, mild diffuse distention. LEGS: No edema. NERVOUS SYSTEM: Nonfocal. LABORATORY DATA: Reviewed. ASSESSMENT: 1. Bilateral pneumonia, possibly hospital-acquired with severe sepsis and septic shock. 2. Change in mental status, metabolic encephalopathy. 3. Diabetes mellitus, type 2, uncontrolled with hyperglycemia. 4. Troponin elevated up to 0.376. 5. Rule out congestive heart failure. 6. Elevated WBC. 7. History of recent urinary tract infection. 8. History of recent ileus. 9. Right heel ulcer. 10.History of myocardial infarction, coronary artery disease. 11.Hypertension. 12.History of pancreatitis. 13.Multiple complex medical issues. RECOMMENDATIONS AND DISCUSSION: This 63-year-old woman presented with multiple complex medical issues. We will monitor the patient closely. Recommend to continue current medications, symptomatic treatment, otherwise broad-spectrum IV antibiotics. I would recommend the patient started on Zosyn and Infectious Disease evaluation, Pulmonary consultation. The patient received multiple boluses. If the blood pressure is not improving, the patient might be a candidate for ICU and as well as transfer with Levophed drip. The prognosis guarded. Further recommendations to follow. See orders for the details. MMODL / IJN: [id number] /
[2024-08-04] MEDS: INSULIN NPL/INSULIN LISPRO 100 UNIT/ML 10 ML VL (Humalog 75/25) SQ ONE (01:07)
[2024-08-04] MEDS: INSULIN LISPRO (HumaLOG) 100 UNIT/ML 10 mL VL SQ ONE (01:44)
[2024-08-04] MEDS: ALPRAZolam 0.25 MG TAB PO STA (01:51)
[2024-08-04 02:33] LABS: Glucose,Whole Blood 451 mg/dL (70-110)
[2024-08-04] MEDS: SODIUM CHLORIDE 0.9% 1,000 ML IV SCH (02:55)
[2024-08-04 03:24] LABS: RSV Not Detected (Not Detectd)
[2024-08-04 03:51] LABS: Bacteria,Urine Rare /hpf; Bilirubin,Urine Negative (Negative); Blood,Urine Trace (Negative); Budding Yeast,Urine Few /hpf; Calcium Oxalate Crystals,Urine Occasional /hpf; Color,Urine Colorless; Glucose,Urine (UA) 4+ (Negative); Ketones,Urine Trace (Negative); Leukocyte Esterase,Urine Large (Negative); Mucus,Urine Rare /hpf; Nitrite,Urine Negative (Negative); PH, Urine 5.5 (5.0-8.0); Protein,Urine Trace (Negative); RBC,Urine 9 /hpf (0-5); Specific Gravity,Urine 1.013 (1.001-1.035); Squamous Epithelial Cell,Urine 7 /hpf (0-4); Urobilinogen,Urine <2.0 mg/dL (<2.0); WBC,Urine 69 /hpf (0-5)
[2024-08-04 04:55] LABS: Glucose,Whole Blood 394 mg/dL (70-110)
--- NOTE | 2024-08-04 06:39 | P.CNPUL ---
History of Present Illness Consult date: 08/04/24 Requesting physician: Chris Garcia Reason for consult: pneumonia Chief complaint: weakness, SOB History of present illness: Patient is a 63 female with past medical history significant for hypertension, hyperlipidemia, diabetes mellitus type 2, coronary disease with previous PCI/stents, peripheral vascular disease, left foot metatarsal amputation as well as right fourth-fifth toe amputation. Of note, patient recently hospitalized May, with left hip fracture. CT of the left hip showing a nondisplaced oblique fracture through the superior corner of the left greater trochanter. Did return to the hospital 07/22/2024 with abdominal pain. Thought to possible have a urinary tract infection. Abdominal/pelvis CT remarkable for bilateral hydronephrosis, right greater than left, bladder wall thickening, and small bowel ileus. Incidental findings of bilateral pleural effusions and compressive atelectasis. Patient was discharged on 08/01/2024. Patient returns to the emergency department 2 days later complaining of increased weakness, fevers, and shortness of breath. She was placed on BiPAP initially in the ED. She was also noted to be hypotensive and has been fluid resuscitated with a total of 3 L of crystalloid fluid so far. Febrile with a temperature of 100.3 F. Workup including a chest x-ray showing multifocal airspace opacities concerning for pneumonia. Denies any coughing, sputum production, hemoptysis, chest pain. Denies any history of heart failure. Denies any lower extremity edema. Denies any she denies any dysuria, frequency, hematuria, suprapubic pain or flank pain. She is retaining urine and a bedside bladder scan showed 850 cc of urine in the bladder. Labs including a CBC with a WBC count of 19.4, hemoglobin 13, platelets 681. CMP: Sodium 131, potassium 4.3, chloride 100, serum bicarb 18, BUN 22, creatinine 1.36, glucose 389. Lactic was 2.7 is down to 2.5. LFTs not elevated. Troponin was 0.376. NT proBNP significantly elevated at 12,900. Patient currently being evaluated in the emergency department. She is on BiPAP with settings 14/6 and FiO2 40%. SpO2 reading 100% on bedside monitor. She does not appear to be any respiratory distress. Talking complete sentences. No accessory muscle use. She was easily transitioned to nasal cannula. Blood pressure currently 100/66 mmHg. She was empirically placed on a combination of Levaquin and Zosyn in the ED. Currently afebrile. Review of Systems REVIEW OF SYSTEMS: CONSTITUTIONAL: Denies any recent significant weight loss or weight gain. EYES: Denies change in vision. EARS, NOSE, MOUTH, THROAT: Denies headaches, denies sore throat. CARDIOVASCULAR: Denies chest pain, palpitations or syncopal episodes. RESPIRATORY: Denies shortness of breath, cough, congestion or hemoptysis. GASTROINTESTINAL: Denies change in appetite, abdominal pain, nausea and vomiting, or diarrhea. Last bowel movement reportedly 07/31. GENITOURINARY: Denies dysuria/burning, hematuria, flank pain. Is having issues with urinary retention. MUSKULOSKELETAL: Denies pain, denies swelling. Denies any left hip pain or new difficulties ambulating. INTEGUMENTARY: Denies rash, denies eczema. NEUROLOGICAL: Denies recent memory loss, no recent seizure activity. PSYCHIATRIC: Denies anxiety, denies depression. HEMATOLOGIC/LYMPHATIC: Denies anemia, denies enlarged lymph node Past Medical History Past Medical History: CVA/TIA, Diabetes Mellitus, GERD/Reflux, Hyperlipidemia, Hypertension, Myocardial Infarction ([place]), Vascular Disorder Additional Past Medical History / Comment(s): 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 , unsteady gait., see Cardiology [facility] INPT FOR LT FOOT ULCER-WAS SEEN IN WOUND CARE 03/26/23-HAS DRESSING ON FOOT Last Myocardial Infarction Date:: february 2017 History of Any Multi-Drug Resistant Organisms: None Reported Past Surgical History: Back Surgery, Cholecystectomy, Heart Catheterization With Stent, Orthopedic Surgery Additional Past Surgical History / Comment(s): Right 5th toe amputation, lumbar fusion, spinal cord stimulator in place but not working., left knee arthroscopy, EGD, PATRICIA, 3 cardiac stents, Aortoram, stent to left iliac artery. , stent right leg above the knee, right 4th toe amputation. ANGIOGRAM,m 04/11/23 left toes amputation. Past Anesthesia/Blood Transfusion Reactions: No Reported Reaction Additional Past Anesthesia/Blood Transfusion Reaction / Comment(s): . Date of Last Stent Placement:: 12/14/2021 Past Psychological History: Anxiety Smoking Status: Current every day smoker Past Alcohol Use History: None Reported Past Drug Use History: None Reported - Past Family History Father Family Medical History: Cancer, Liver Disease Additional Family Medical History / Comment(s): Idiopathic cirrhosis of liver, Liver Cancer. Mother Family Medical History: Coronary Artery Disease (CAD), Myocardial Infarction ([place]) Additional Family Medical History / Comment(s): Multiple stents. Mother at the age of 77 or 78 from [place]. Medications and Allergies Home Medications Medication Instructions Recorded Confirmed Type Atorvastatin [Lipitor] 80 mg PO HS 06/26/16 08/03/24 History Clopidogrel [Plavix] 75 mg PO DAILY 30 Days #30 tab 01/05/21 08/03/24 Rx DULoxetine HCL [Cymbalta] 60 mg PO HS 05/30/24 08/03/24 History Fenofibrate [Lofibra] 160 mg PO DAILY 05/30/24 08/03/24 History Gabapentin [Neurontin] 100 mg PO HS 05/30/24 08/03/24 History INSULIN LISPRO (humaLOG) [humaLOG] See Protocol SQ ACHS 05/30/24 08/03/24 History cilostazoL [Pletal] 50 mg PO BID 05/30/24 08/03/24 History Aspirin 81 mg PO BID #60 tab 05/31/24 08/03/24 Rx Acetaminophen Tab [Tylenol] 650 mg PO Q6HR PRN tab 08/01/24 08/03/24 Rx HYDROcodone/APAP 5-325MG [[place] 1 tab PO BID PRN #8 tab 08/01/24 08/03/24 Rx 5-325] Lactulose [Cephulac] 20 gm PO BID #360 ml 08/01/24 08/03/24 Rx Ondansetron Odt [Zofran Odt] 4 mg PO Q8HR PRN #20 tab 08/01/24 08/03/24 Rx Oxybutynin ER [Ditropan XL] 10 mg PO DAILY #30 tab 08/01/24 08/03/24 Rx Pantoprazole [Protonix] 40 mg PO DAILY #30 tab 08/01/24 08/03/24 Rx Simethicone 40 mg/0.6 ml Drops 40 mg PO QID #7 ml 08/01/24 08/03/24 Rx [Mylicon Drops] cefuroxime axetiL [Ceftin] 500 mg PO BID 7 Days #14 tab 08/01/24 08/03/24 Rx Allergies Allergy/AdvReac Type Severity Reaction Status Date / Time No Known Allergies Allergy Verified 08/03/24 18:43 Physical Exam Vitals: Vital Signs Temp Pulse Resp BP Pulse Ox FiO2 08/04/24 00:58 79 18 94/65 97 08/03/24 23:34 80 19 100/66 100 08/03/24 23:30 40 08/03/24 23:03 80 21 93/72 99 08/03/24 21:19 89 28 H 84/58 98 08/03/24 20:51 98.2 F 08/03/24 20:44 97.5 F L 94 23 86/65 98 08/03/24 19:58 40 08/03/24 19:35 104 H 24 84/52 98 08/03/24 19:01 107 H 08/03/24 18:40 108 H 08/03/24 18:05 40 08/03/24 18:04 40 08/03/24 18:02 124 H 27 H 99/66 97 08/03/24 17:52 28 H 08/03/24 17:39 100.3 F H 139 H 40 H 123/103 100 Intake and Output 08/03/24 08/03/24 08/04/24 14:59 22:59 06:59 Other: Weight 72.575 kg GENERAL EXAM: Alert, 63-year-old female, resting comfortably on 2 L/min nasal cannula, SpO2 now reading 99% on bedside monitor, comfortable in no apparent distress. HEAD: Normocephalic and atraumatic EYES: Normal reaction of pupils, equal size. NOSE: Clear with pink turbinates. THROAT: No erythema or exudates. NECK: No masses, no JVD. CHEST: No chest wall deformity. LUNGS: Equal air entry with no crackles, wheeze, rhonchi or dullness. No conversational dyspnea or accessory muscle use.. CVS: S1 and S2 normal with no audible murmur, regular rhythm. No extra heart sounds ABDOMEN: No hepatosplenomegaly, active bowel sounds, no guarding or rigidity. SPINE: No scoliosis or deformity SKIN: No rashes CENTRAL NERVOUS SYSTEM: No focal deficits, tone is normal in all 4 extremities. EXTREMITIES: Prior right 4th and 5th toe amputation and left foot tra nsmetatarsal amputation. Unstageable right heel pressure ulcer. There is no peripheral edema, clubbing, or cyanosis. Peripheral pulses are intact. Results - Laboratory Findings CBC and BMP: 08/03/24 17:52 08/03/24 17:52 PT/INR, D-dimer PT 13.8 sec (10.0-12.5) H 08/03/24 17:54 INR 1.3 (<1.2) H 08/03/24 17:54 Abnormal lab findings: Abnormal Labs 08/03/24 08/03/24 08/03/24 17:52 17:52 17:52 WBC 19.35 H Plt Count 681 H D MPV 9.4 L Immature Gran # 0.15 H Neutrophils # 16.27 H Eosinophils # 0.00 L PT INR Sodium 131 L Carbon Dioxide 18 L BUN 22 H Creatinine 1.36 H Glucose 389 H POC Glucose (mg/dL) Plasma Lactic Acid Yousif 2.7 H* Calcium 8.0 L Troponin I Total Protein 6.0 L Albumin 3.1 L 08/03/24 08/03/24 08/03/24 17:52 17:54 18:28 WBC Plt Count MPV Immature Gran # Neutrophils # Eosinophils # PT 13.8 H INR 1.3 H Sodium Carbon Dioxide BUN Creatinine Glucose POC Glucose (mg/dL) 415 H Plasma Lactic Acid Yousif Calcium Troponin I 0.376 H* Total Protein Albumin 08/03/24 08/03/24 08/04/24 21:01 22:35 00:29 WBC Plt Count MPV Immature Gran # Neutrophils # Eosinophils # PT INR Sodium Carbon Dioxide BUN Creatinine Glucose POC Glucose (mg/dL) 428 H Plasma Lactic Acid Yousif 2.5 H* 4.5 H* Calcium Troponin I Total Protein Albumin 08/04/24 00:55 WBC Plt Count MPV Immature Gran # Neutrophils # Eosinophils # PT INR Sodium Carbon Dioxide BUN Creatinine Glucose POC Glucose (mg/dL) 529 H* Plasma Lactic Acid Yousif Calcium Troponin I Total Protein Albumin - Diagnostic Findings Chest x-ray: image reviewed Assessment and Plan Assessment: Acute hypoxemic respiratory failure, initially placed on BiPAP on arrival in the ED, now transitioned over to 2 L/min nasal cannula, chest x-ray showing mul tifocal airspace opacities concerning for pneumonia. Possible HCAP, patient covered empirically on antibiotics. Hypotension, consider sepsis/septic shock Acute febrile illness Acute leukocytosis Urinary retention, abdominal/pelvis CT from previous admission remarkable for bilateral hydronephrosis, right greater than left, bladder wall thickening, and small bowel ileus Acute kidney injury, creatinine 1.36 Elevated troponins rule out non-ST elevation [place] History of hypertension History of hyperlipidemia Diabetes mellitus type 2, uncontrolled History of coronary artery disease with previous PCI/stents History of peripheral vascular disease History of left foot transmetatarsal amputation History of right 4th and 5th toe amputation on the right History of nondisplaced oblique fracture of the left greater trochanter Currently undergoing tobacco dependence Plan: Patient's medications, labs, chest x-ray. Patient continues to be borderline hypotensive despite adequate fluid resuscitation with 30 cc/kg. If hypotension persists, will transfer to the intensive care unit for vasopressors and blood pressure support. Chest x-ray findings concerning for multifocal pneumonia. Clinically, not particularly symptomatic for pneumonia. NT-proBNP was significantly elevated at 12,900. Continue supplemental oxygen, weaned off BiPAP and is currently on 2 L/min nasal cannula Continue empiric antibiotics Repeat chest x-ray in the morning Cultures are pending Obtain transthoracic echocardiogram Perform urinary catheterization per protocol and consult urology if urinary r etention continues Will continue to follow, additional recommendations forthcoming I have personally seen and examined the patient, performed the documentation and the assessment and plan as written. Number of minutes spent on the visit:20 Time with Patient: Greater than 30
[2024-08-04 07:01] LABS: Basophils # (A) 0.02 10*3/uL (0.00-0.10); Basophils % (A) 0.2 %; Eosinophils # (A) 0.01 10*3/uL (0.04-0.35); Eosinophils % (A) 0.1 %; HCT 31.2 % (37.2-46.3); HGB 10.5 g/dL (12.0-15.0); Immature Platelet Fraction 1.5 % (1.1-6.1); Lymphocytes # (A) 0.60 10*3/uL (0.90-5.00); Lymphocytes % (A) 5.3 %; MCH 28.5 pg (27.0-32.0); MCHC 33.7 g/dL (32.0-37.0); MCV 84.8 fL (80.0-97.0); Monocytes # (A) 0.51 10*3/uL (0.20-1.00); Monocytes % (A) 4.5 %; Neutrophils # (A) 10.20 10*3/uL (1.80-7.70); Neutrophils % (A) 89.2 %; Platelet Count 420 10*3/uL (140-440); RBC 3.68 10*6/uL (4.10-5.20); RDW 13.3 % (11.5-14.5); WBC 11.42 10*3/uL (4.50-10.00)
[2024-08-04 07:10] LABS: ALT 13 U/L (4-34); AST 44 U/L (14-36); African American GFR (CKD) 58 (>60 ml/min/1.73 sqM); Albumin 2.5 g/dL (3.5-5.0); Alkaline Phosphatase 64 U/L (38-126); Anion Gap 12 mmol/L; Blood Urea Nitrogen 25 mg/dL (7-17); Calcium 7.0 mg/dL (8.4-10.2); Carbon Dioxide 19 mmol/L (22-30); Chloride 106 mmol/L (98-107); Glucose 339 mg/dL (74-99); Lipase 21 U/L (23-300); Magnesium 2.0 mg/dL (1.6-2.3); Non-African American GFR(CKD) 50 (>60 ml/min/1.73 sqM); Potassium 3.3 mmol/L (3.5-5.1); Sodium 137 mmol/L (137-145); Total Protein 5.1 g/dL (6.3-8.2)
--- NOTE | 2024-08-04 07:36 | XR ---
EXAMINATION TYPE: XR chest 1V portable DATE OF EXAM: 08/04/2024 5:14 AM COMPARISON: 08/03/2024 CLINICAL INDICATION: Female, 63 years old with history of chf, TECHNIQUE: XR chest 1V portable view(s) obtained. FINDINGS: The heart size is normal. The pulmonary vasculature is prominent. This is worsened from comparison. Left lower lobe and right mid to lower lobe infiltrates are worsening. Diffuse increased lung marking s are present. Stimulator leads are within the midline. IMPRESSION: 1. Correlate for pulmonary edema. Pneumonia and atypical pneumonia could be considered. Findings are worsening from prior. [facility], , 08/04/2024 7:33 AM
[2024-08-04 07:44] LABS: Glucose,Whole Blood 370 mg/dL (70-110)
[2024-08-04] MEDS: INSULIN LISPRO (HumaLOG) 100 UNIT/ML 10 mL VL SQ SCH (08:40)
[2024-08-04] MEDS ORDERED: LORazepam 1 MG/0.5 ML VIAL IV STA (09:30)
[2024-08-04] MEDS: LORazepam 1 MG/0.5 ML VIAL IV STA (09:48)
[2024-08-04 10:43] LABS: Glucose,Whole Blood 403 mg/dL (70-110)
--- NOTE | 2024-08-04 11:53 | P.CRDCN ---
History of Present Illness Consult date: 08/04/24 Consult reason: congestive heart failure History of present illness: This is a 63-year-old female patient of Dr. Lock with past medical history of coronary artery disease with prior triple-vessel stenting as well as lower extremity PAD status post stenting of bilateral iliac and bilateral SFA, carotid atherosclerosis with history of stroke, diabetes, hypertension, dyslipidemia and tobacco use and dependence. We have been asked to evaluate the patient for CHF. Patient states that she came into the hospital due to weakness. Her story is v kendall difficult to follow. Patient was recently hospitalized 07/22 - 08/01 at which time she was treated for complicated urinary tract infection as well as a right heel unstageable pressure ulcer, small bowel ileus. Patient was discharged to home with home care in place. According to the ER notes, patient returned due to shortness of breath with a low pulse ox and altered mental status. Patient initially was started on BiPAP and has been transition to nasal cannula at 2 L. Patient has been started on nebulizer treatments and IV antibiotics. She states she is feeling better now since she came into the hospital. She is not sure what helped make her feel better. Blood pressure 102/64, heart rate 79, pulse ox 97% on 2 L nasal cannula. Patient had presented with a temperature max of 100.3, heart rate 139, respiratory rate 40, blood pressure 84/52. She is status post 3 L of IV fluid bolus, magnesium replacement, multiple doses of insulin, Tylenol and ibuprofen as well as Xanax and Ativan -EKG: Sinus tachycardia 135 bpm -Chest x-ray: #1 multifocal airspace opacities concerning for pneumonia. #2 correlate for pulmonary edema. Pneumonia and atypical pneumonia could be considered. -Laboratory studies: WBC 19.3 now 11.4. Hemoglobin 10.5. Sodium 137, potassium 3.3, BUN 25 creatinine 1.17. Blood sugar in the 400s. Lactic acid 3.3. Troponin 0.376. proBNP 12,900. Urinalysis positive for urinary tract infection. Cepheid viral panel not detected. -Home cardiac medications: Aspirin 81 mg twice daily, atorvastatin 80 mg at bedtime, Plavix 75 mg daily. -Lexiscan Cardiolite from 2019 was nondiagnostic electrocardiogram stress testing response to Lexiscan. Probably normal myocardial perfusion imaging. No evidence of stress-induced ischemia. Normal left ventricular systolic function. -Echocardiogram performed in the office in 2017-revealed EF 55%, mild concentric hypertrophy. Trace aortic regurgitation. Mild tricuspid regurgitation. Review Of Systems: At the time of my exam: CONSTITUTIONAL: Denies fever or chills. HEENT: Denies blurred vision, vision changes, or eye pain. Denies hemoptysis CARDIOVASCULAR: Denies chest pain. Denies orthopnea. Denies PND. Denies p alpitations RESPIRATORY: Denies shortness of breath. GASTROINTESTINAL: Denies abdominal pain. Denies nausea or vomiting. HEMATOLOGIC: Denies bleeding disorders. GENITOURINARY: Denies any blood in urine. SKIN: Denies puritis. Denies rash. Physical examination: Gen: This is a 63-year-old female appears to be in no acute distress. VS: reviewed HEENT: Head is atraumatic, normocephalic. Pupils equal, round. Sclerae is anicteric. NECK: Supple. No JVD. LUNGS: Clear to auscultation. No wheezes or rhonchi. No crackles. No intercostal retractions. HEART: Regular rate and rhythm. No murmur. ABDOMEN: Soft No tenderness. EXTREMITIES: Mild bilateral lower extremity edema. No calf tenderness. NEUROLOGICAL: Patient is awake, alert and oriented to person. Assessment: Chronic heart failure Acute hypoxic respiratory failure initially on BiPAP, transitioned to nasal cannula Pneumonia with sepsis Hypotension, possible septic shock status post 3 L of IV fluid Acute kidney injury Urinary retention and Bilateral hydronephrosis on recent hospitalization Coronary artery disease with prior triple-vessel stenting Lower extremity PAD status post stenting of the bilateral iliac and bilateral SFA Carotid atherosclerosis History of stroke Diabetes Hypertension Dyslipidemia Tobacco use and dependence Plan: Resume patient's home cardiac medications Continue treatment for pneumonia and respiratory failure Obtain 2-D echocardiogram and Doppler study to assess cardiac structure and function Further recommendations to follow based upon clinical course Smoking cessation: Patient will be provided the [email or web address] quit line information at discharge Thank you kindly for this consultation. Nurse practitioner note has been reviewed, I agree with documented findings and plan of care. Patient was seen and examined. Past Medical History Past Medical History: CVA/TIA, Diabetes Mellitus, GERD/Reflux, Hyperlipidemia, Hypertension, Myocardial Infarction ([place]), Vascular Disorder Additional Past Medical History / Comment(s): 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 , unsteady gait., see Cardiology [facility] INPT FOR LT FOOT ULCER-WAS SEEN IN WOUND CARE 03/26/23-HAS DRESSING ON FOOT Last Myocardial Infarction Date:: february 2017 History of Any Multi-Drug Resistant Organisms: None Reported Past Surgical History: Back Surgery, Cholecystectomy, Heart Catheterization With Stent, Orthopedic Surgery Additional Past Surgical History / Comment(s): Right 5th toe amputation, lumbar fusion, spinal cord stimulator in place but not working., left knee arthroscopy, EGD, PATRICIA, 3 cardiac stents, Aortoram, stent to left iliac artery. , stent right leg above the knee, right 4th toe amputation. ANGIOGRAM,m 04/11/23 left toes amputation. Past Anesthesia/Blood Transfusion Reactions: No Reported Reaction Additional Past Anesthesia/Blood Transfusion Reaction / Comment(s): . Date of Last Stent Placement:: 12/14/2021 Past Psychological History: Anxiety Smoking Status: Current every day smoker Past Alcohol Use History: None Reported Past Drug Use History: None Reported - Past Family History Father Family Medical History: Cancer, Liver Disease Additional Family Medical History / Comment(s): Idiopathic cirrhosis of liver, Liver Cancer. Mother Family Medical History: Coronary Artery Disease (CAD), Myocardial Infarction ([place]) Additional Family Medical History / Comment(s): Multiple stents. Mother at the age of 77 or 78 from [place]. Medications and Allergies Home Medications Medication Instructions Recorded Confirmed Type Atorvastatin [Lipitor] 80 mg PO HS 06/26/16 08/03/24 History Clopidogrel [Plavix] 75 mg PO DAILY 30 Days #30 tab 01/05/21 08/03/24 Rx DULoxetine HCL [Cymbalta] 60 mg PO HS 05/30/24 08/03/24 History Fenofibrate [Lofibra] 160 mg PO DAILY 05/30/24 08/03/24 History Gabapentin [Neurontin] 100 mg PO HS 05/30/24 08/03/24 History INSULIN LISPRO (humaLOG) [humaLOG] See Protocol SQ ACHS 05/30/24 08/03/24 History cilostazoL [Pletal] 50 mg PO BID 05/30/24 08/03/24 History Aspirin 81 mg PO BID #60 tab 05/31/24 08/03/24 Rx Acetaminophen Tab [Tylenol] 650 mg PO Q6HR PRN tab 08/01/24 08/03/24 Rx HYDROcodone/APAP 5-325MG [[place] 1 tab PO BID PRN #8 tab 08/01/24 08/03/24 Rx 5-325] Lactulose [Cephulac] 20 gm PO BID #360 ml 08/01/24 08/03/24 Rx Ondansetron Odt [Zofran Odt] 4 mg PO Q8HR PRN #20 tab 08/01/24 08/03/24 Rx Oxybutynin ER [Ditropan XL] 10 mg PO DAILY #30 tab 08/01/24 08/03/24 Rx Pantoprazole [Protonix] 40 mg PO DAILY #30 tab 08/01/24 08/03/24 Rx Simethicone 40 mg/0.6 ml Drops 40 mg PO QID #7 ml 08/01/24 08/03/24 Rx [Mylicon Drops] cefuroxime axetiL [Ceftin] 500 mg PO BID 7 Days #14 tab 08/01/24 08/03/24 Rx Allergies Allergy/AdvReac Type Severity Reaction Status Date / Time No Known Allergies Allergy Verified 08/03/24 18:43 Physical Exam Vitals: Vital Signs Temp Pulse Resp BP Pulse Ox FiO2 08/04/24 06:28 73 18 90/61 96 08/04/24 04:32 76 18 91/64 96 08/04/24 01:41 77 18 88/65 99 08/04/24 00:58 79 18 94/65 97 08/03/24 23:34 80 19 100/66 100 08/03/24 23:30 40 08/03/24 23:03 80 21 93/72 99 08/03/24 21:19 89 28 H 84/58 98 08/03/24 20:51 98.2 F 08/03/24 20:44 97.5 F L 94 23 86/65 98 08/03/24 19:58 40 08/03/24 19:35 104 H 24 84/52 98 08/03/24 19:01 107 H 08/03/24 18:40 108 H 08/03/24 18:05 40 08/03/24 18:04 40 08/03/24 18:02 124 H 27 H 99/66 97 08/03/24 17:52 28 H 08/03/24 17:39 100.3 F H 139 H 40 H 123/103 100 Intake and Output 08/03/24 08/04/24 08/04/24 22:59 06:59 14:59 Other: Weight 72.575 kg Results 08/04/24 06:31 08/04/24 06:31 Cardiac Enzymes 08/03/24 08/03/24 08/04/24 Range/Units 17:52 17:52 06:31 AST 31 44 H (14-36) U/L Troponin I 0.376 H* (0.000-0.034) ng/mL Coagulation 08/03/24 Range/Units 17:54 PT 13.8 H (10.0-12.5) sec APTT 22.4 (22.0-30.0) sec CBC 08/03/24 08/04/24 Range/Units 17:52 06:31 WBC 19.35 H 11.42 H (4.50-10.00) 10*3/uL RBC 4.66 3.68 L (4.10-5.20) 10*6/uL Hgb 13.0 10.5 L (12.0-15.0) g/dL Hct 38.1 31.2 L (37.2-46.3) % Plt Count 681 H D (140-440) 10*3/uL Comprehensive Metabolic Panel 08/03/24 08/04/24 Range/Units 17:52 06:31 Sodium 131 L 137 (137-145) mmol/L Potassium 4.3 3.3 L (3.5-5.1) mmol/L Chloride 100 106 (98-107) mmol/L Carbon Dioxide 18 L 19 L (22-30) mmol/L BUN 22 H 25 H (7-17) mg/dL Creatinine 1.36 H 1.17 H (0.52-1.04) mg/dL Glucose 389 H 339 H (74-99) mg/dL Calcium 8.0 L 7.0 L (8.4-10.2) mg/dL AST 31 44 H (14-36) U/L ALT 13 13 (4-34) U/L Alkaline Phosphatase 91 64 (38-126) U/L Total Protein 6.0 L 5.1 L (6.3-8.2) g/dL Albumin 3.1 L 2.5 L (3.5-5.0) g/dL Current Medications Generic Name Dose Route Start Last Admin Trade Name Freq PRN Reason Stop Dose Admin Albuterol/Ipratropium 3 ml 08/03/24 22:30 08/03/24 23:32 Ipratropium-Albuterol 3 Ml Neb INHALATION Not Given RT-TID MAGALY Albuterol/Ipratropium 3 ml 08/03/24 22:30 Ipratropium-Albuterol 3 Ml Neb INHALATION RT-TID PRN Shortness Of Breath Or Wheezing Dextrose/Water 25 ml 08/03/24 22:52 Dextrose 50% Syringe 50 Ml IVP PER PROTOCOL PRN Hypoglycemia Protocol Dextrose/Water 50 ml 08/03/24 22:52 Dextrose 50% Syringe 50 Ml IVP PER PROTOCOL PRN Hypoglycemia Protocol Heparin Sodium (Porcine) 5,000 unit 08/03/24 22:45 08/03/24 23:01 Heparin Sodium,Porcine 5,000 Unit/Ml 1 Ml Vial SQ 5,000 unit Q12HR MAGALY Administration Levofloxacin 750 mg/ IV 150 mls @ 100 mls/hr 08/03/24 19:00 08/03/24 19:36 Solution IVPB 100 mls/hr Q48H [facility] Administration Protocol Piperacillin Sod/Tazobactam 100 mls @ 25 mls/hr 08/03/24 19:00 08/04/24 03:12 Sod 3.375 gm/ Sodium Chloride IVPB 25 mls/hr Q8H [facility] Administration Protocol Sodium Chloride 1,000 mls @ 100 mls/hr 08/04/24 02:00 08/04/24 02:55 Saline 0.9% IV 100 mls/hr .Q10H MAGALY Administration Insulin Glargine 11 unit 08/03/24 22:54 08/03/24 23:09 Insulin Glargine (Lantus) 100 Unit/Ml Syr 0.15 unit/kg (11 unit) 11 unit SQ Administration BID@0700,2100 [facility] Insulin Human Lispro 0 unit 08/04/24 07:30 Insulin Lispro (Humalog) 100 Unit/Ml 10 Ml Vl SQ ACHS [facility] Protocol Naloxone HCl 0.2 mg 08/03/24 19:59 Naloxone 0.4 Mg/Ml 1 Ml Vial IV Q2M PRN Opioid Reversal Ondansetron HCl 4 mg 08/03/24 19:59 Ondansetron 4 Mg/2 Ml Vial IVP Q8HR PRN Nausea And Vomiting Pantoprazole Sodium 40 mg 08/03/24 22:45 08/03/24 23:01 Pantoprazole 40 Mg/10 Ml Vial IVP 40 mg BID MAGALY Administration Intake and Output 08/03/24 08/04/24 08/04/24 22:59 06:59 14:59 Other: Weight 72.575 kg 08/04/24 06:31 08/04/24 06:31
[2024-08-04] MEDS ORDERED: DEXTROSE 50% SYRINGE 50 ML IVP PRN ×2 (12:00)
[2024-08-04 12:37] LABS: Glucose,Whole Blood 379 mg/dL (70-110)
[2024-08-04] MEDS: FENOFIBRATE 160 MG TAB PO SCH (13:02)
[2024-08-04] MEDS: LACTULOSE 20 GM/30 ML CUP PO SCH (13:02)
[2024-08-04] MEDS: OXYBUTYNIN 10 MG TAB.ER.24 PO SCH (13:53)
[2024-08-04] MEDS: SIMETHICONE 40 MG/0.6 ML DROPS 2,000 MG/30 ML BOTTLE PO SCH (13:53)
[2024-08-04 16:24] LABS: Glucose,Whole Blood 282 mg/dL (70-110)
[2024-08-04] MEDS: LEVOFLOXACIN 750MG-D5W PMX 750 MG in DEXTROSE/WATER 1 150ML.BAG IVPB SCH (16:57)
[2024-08-04] MEDS: ALPRAZolam 0.25 MG TAB PO PRN (17:18)
[2024-08-04 19:42] LABS: Glucose,Whole Blood 211 mg/dL (70-110)
[2024-08-04] MEDS: HYDROcodone/APAP 5-325MG 1 EACH TAB PO PRN (19:57)
[2024-08-04] MEDS: ATORVASTATIN 80 MG TAB PO SCH (19:58)
[2024-08-04] MEDS: GABAPENTIN 100 MG CAP PO SCH (19:58)
[2024-08-04] MEDS: ONDANSETRON ODT 4 MG TAB PO PRN (21:01)
[2024-08-04] MEDS: ACETAMINOPHEN TAB 325 MG TAB PO PRN (23:28)
[2024-08-04] MEDS: SODIUM CHLORIDE 0.9% 1,000 ML IV ONE (23:32)
--- NOTE | 2024-08-05 01:41 | PN ---
PROGRESS NOTE DATE OF SERVICE: 08/04/2024 SUBJECTIVE: This 63-year-old woman was admitted with bilateral pneumonia with possible metabolic encephalopathy, is on broad-spectrum IV antibiotics. The patient recently had a recent UTI. The patient was confused yesterday. Today, the patient is much more alert, still short of breath. PAST MEDICAL HISTORY: Reviewed. REVIEW OF SYSTEMS: A 14-point review of systems negative except as mentioned earlier. CURRENT MEDICATIONS: Reviewed. PHYSICAL EXAMINATION: VITAL SIGNS: Pulse 79, blood pressure 100/69, and respirations 18. HEENT: Conjunctivae normal. NECK: No JVD. CARDIOVASCULAR: S1 and S2. RESPIRATIONS: Bilateral scattered rhonchi and crackles. ABDOMEN: Soft. NERVOUS SYSTEM: Nonfocal. LABORATORY DATA: Noted. ASSESSMENT: 1. Acute bilateral multifocal pneumonia, possibly hospital-acquired with severe sepsis and septic shock, present on admission. 2. Change in mental status, acute metabolic encephalopathy. 3. Diabetes mellitus, type 2, uncontrolled with hyperglycemia. 4. Troponin elevated up to 0.376. Rule out acute [id number] elevation myocardial infarction. 5. Rule out congestive heart failure. 6. Elevated WBC. 7. History of recent urinary tract infection. 8. History of recent ileus. 9. Right heel ulcer. 10.History of myocardial infarction, coronary artery disease. 11.Hypertension. 12.Multiple complex medical issues. RECOMMENDATIONS: Recommend to continue current management and continue symptomatic treatment. Continue with broad-spectrum IV antibiotics. Follow the cultures. I would also recommend monitor the fluid balance closely. Monitor blood pressure closely. The patient is on IV Zosyn and Levaquin. Infectious Disease and Cardiology also has been consulted in addition to Pulmonology. Prognosis remains guarded which I discussed with the patient and family at the bedside thank. MMODL / IJN: [id number] /
--- NOTE | 2024-08-05 05:42 | P.CONS ---
History of Present Illness - Reason for Consult Consult date: 08/04/24 Sepsis Requesting physician: Jannette Lainez - Chief Complaint Weakness shortness of breath and cough x 1 day - History of Present Illness Patient is a 63-year-old female with a past medical history significant for diabetes mellitus reflux hypertension hyperlipidemia [place] CVA TIA previous patient noted to have history of recurrent UTI recently discharged from this hospital after receiving treatment for UTI cystitis has been brought back to the hospital concerning for generalized weakness along with mental status changes and low oxygen patient was complaining of mostly weakness and unable to get up and around at home on arrival to the emergency patient was noted to be hypoxic started on BiPAP at the patient was brought into the hospital on presentation to the hospital patient did have low-grade fever 100.3 F patient was tachycardic but not hypotensive she is currently on increased nasal cannula oxygen patient did have a white count of 19.35 which is down to 11.42 BUN/creatinine has been mildly elevated lactic acid is elevated liver enzymes are normal urine has been positive patient did have a chest x-ray multifocal airspace opacity concerning for pneumonia patient was started on Levaquin and Zosyn infectious disease consulted for further management of antibiotic therapy Review of Systems Positive point and negatives has been mentioned in the HPI, complete review of systems was performed and all other systems are negative Past Medical History Past Medical History: CVA/TIA, Diabetes Mellitus, GERD/Reflux, Hyperlipidemia, Hypertension, Myocardial Infarction ([place]), Vascular Disorder Additional Past Medical History / Comment(s): 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 , unsteady gait., see Cardiology [facility] INPT FOR LT FOOT ULCER-WAS SEEN IN WOUND CARE 03/26/23-HAS DRESSING ON FOOT Last Myocardial Infarction Date:: february 2017 History of Any Multi-Drug Resistant Organisms: None Reported Past Surgical History: Back Surgery, Cholecystectomy, Heart Catheterization With Stent, Orthopedic Surgery Additional Past Surgical History / Comment(s): Right 5th toe amputation, lumbar fusion, spinal cord stimulator in place but not working., left knee arthroscopy, EGD, PATRICIA, 3 cardiac stents, Aortoram, stent to left iliac artery. , stent right leg above the knee, right 4th toe amputation. ANGIOGRAM,m 04/11/23 left toes amputation. Past Anesthesia/Blood Transfusion Reactions: No Reported Reaction Additional Past Anesthesia/Blood Transfusion Reaction / Comm: . Date of Last Stent Placement:: 12/14/2021 Past Psychological History: Anxiety Smoking Status: Current every day smoker Past Alcohol Use History: None Reported Past Drug Use History: None Reported - Past Family History Father Family Medical History: Cancer, Liver Disease Additional Family Medical History / Comment(s): Idiopathic cirrhosis of liver, Liver Cancer. Mother Family Medical History: Coronary Artery Disease (CAD), Myocardial Infarction ([place]) Additional Family Medical History / Comment(s): Multiple stents. Mother at the age of 77 or 78 from [place]. Medications and Allergies Home Medications Medication Instructions Recorded Confirmed Type Atorvastatin [Lipitor] 80 mg PO HS 06/26/16 08/03/24 History Clopidogrel [Plavix] 75 mg PO DAILY 30 Days #30 tab 01/05/21 08/03/24 Rx DULoxetine HCL [Cymbalta] 60 mg PO HS 05/30/24 08/03/24 History Fenofibrate [Lofibra] 160 mg PO DAILY 05/30/24 08/03/24 History Gabapentin [Neurontin] 100 mg PO HS 05/30/24 08/03/24 History INSULIN LISPRO (humaLOG) [humaLOG] See Protocol SQ ACHS 05/30/24 08/03/24 History cilostazoL [Pletal] 50 mg PO BID 05/30/24 08/03/24 History Aspirin 81 mg PO BID #60 tab 05/31/24 08/03/24 Rx Acetaminophen Tab [Tylenol] 650 mg PO Q6HR PRN tab 08/01/24 08/03/24 Rx HYDROcodone/APAP 5-325MG [[place] 1 tab PO BID PRN #8 tab 08/01/24 08/03/24 Rx 5-325] Lactulose [Cephulac] 20 gm PO BID #360 ml 08/01/24 08/03/24 Rx Ondansetron Odt [Zofran Odt] 4 mg PO Q8HR PRN #20 tab 08/01/24 08/03/24 Rx Oxybutynin ER [Ditropan XL] 10 mg PO DAILY #30 tab 08/01/24 08/03/24 Rx Pantoprazole [Protonix] 40 mg PO DAILY #30 tab 08/01/24 08/03/24 Rx Simethicone 40 mg/0.6 ml Drops 40 mg PO QID #7 ml 08/01/24 08/03/24 Rx [Mylicon Drops] cefuroxime axetiL [Ceftin] 500 mg PO BID 7 Days #14 tab 08/01/24 08/03/24 Rx Allergies Allergy/AdvReac Type Severity Reaction Status Date / Time No Known Allergies Allergy Verified 08/03/24 18:43 Physical Exam Vitals: Vital Signs Temp Pulse Pulse Resp BP BP Pulse Ox 08/04/24 08:17 75 08/04/24 08:07 72 96 08/04/24 08:00 97.5 F L 79 18 102/64 97 08/04/24 06:28 73 18 90/61 96 08/04/24 04:32 76 18 91/64 96 08/04/24 01:41 77 18 88/65 99 08/04/24 00:58 79 18 94/65 97 08/03/24 23:34 80 19 100/66 100 08/03/24 23:30 08/03/24 23:03 80 21 93/72 99 08/03/24 21:19 89 28 H 84/58 98 08/03/24 20:51 98.2 F 08/03/24 20:44 97.5 F L 94 23 86/65 98 08/03/24 19:58 08/03/24 19:35 104 H 24 84/52 98 08/03/24 19:01 107 H 08/03/24 18:40 108 H 08/03/24 18:05 08/03/24 18:04 08/03/24 18:02 124 H 27 H 99/66 97 08/03/24 17:52 28 H 08/03/24 17:39 100.3 F H 139 H 40 H 123/103 100 FiO2 08/04/24 08:17 08/04/24 08:07 08/04/24 08:00 08/04/24 06:28 08/04/24 04:32 08/04/24 01:41 08/04/24 00:58 08/03/24 23:34 08/03/24 23:30 40 08/03/24 23:03 08/03/24 21:19 08/03/24 20:51 08/03/24 20:44 08/03/24 19:58 40 08/03/24 19:35 08/03/24 19:01 08/03/24 18:40 08/03/24 18:05 40 08/03/24 18:04 40 08/03/24 18:02 08/03/24 17:52 08/03/24 17:39 Intake and Output 08/03/24 08/04/24 08/04/24 22:59 06:59 14:59 Other: Weight 72.575 kg GENERAL DESCRIPTION: Middle-age female lying in bed, no distress. No tachypnea or accessory muscle of respiration use. HEENT: Shows Pallor , no scleral icterus. Oral mucous membrane is dry. NECK: Trachea central, no thyromegaly. LUNGS: Unlabored breathing. Decreased breath sound at the base HEART: S1, S2, regular rate and rhythm. No loud murmur ABDOMEN: Soft, no tenderness , guarding or rigidity, no organomegaly EXTREMITIES: Patient did have unstageable pressure ulcer to the right heel and stage I pressure ulcer to the left heel. SKIN: No rash, no masses palpable. NEUROLOGICAL: The patient is awake, alert, oriented x3, mood and affect normal. Results CBC & Chem 7: 08/04/24 06:31 08/04/24 06:31 Labs: Abnormal Lab Results - Last 24 Hours (Table) 08/03/24 08/03/24 08/03/24 Range/Units 17:52 17:52 17:52 WBC 19.35 H (4.50-10.00) 10*3/uL RBC (4.10-5.20) 10*6/uL Hgb (12.0-15.0) g/dL Hct (37.2-46.3) % Plt Count 681 H D (140-440) 10*3/uL MPV 9.4 L (9.5-12.2) fL Immature Gran # 0.15 H (0.00-0.04) 10*3/uL Neutrophils # 16.27 H (1.80-7.70) 10*3/uL Lymphocytes # (0.90-5.00) 10*3/uL Eosinophils # 0.00 L (0.04-0.35) 10*3/uL PT (10.0-12.5) sec INR (<1.2) Sodium 131 L (137-145) mmol/L Potassium (3.5-5.1) mmol/L Carbon Dioxide 18 L (22-30) mmol/L BUN 22 H (7-17) mg/dL Creatinine 1.36 H (0.52-1.04) mg/dL Glucose 389 H (74-99) mg/dL POC Glucose (mg/dL) (70-110) mg/dL Hemoglobin A1c (<=6.0) % Plasma Lactic Acid Yousif 2.7 H* (0.7-2.0) mmol/L Calcium 8.0 L (8.4-10.2) mg/dL AST (14-36) U/L Troponin I (0.000-0.034) ng/mL Total Protein 6.0 L (6.3-8.2) g/dL Albumin 3.1 L (3.5-5.0) g/dL Lipase (23-300) U/L Urine Appearance (Clear) Urine Protein (Negative) Urine Glucose (UA) (Negative) Urine Ketones (Negative) Urine Blood (Negative) Ur Leukocyte Esterase (Negative) Urine RBC (0-5) /hpf Urine WBC (0-5) /hpf Ur Squamous Epith Cells (0-4) /hpf Calcium Oxalate Crystal (None) /hpf Urine Bacteria (None) /hpf Urine Mucus (None) /hpf Urine Yeast (Budding) (None) /hpf 08/03/24 08/03/24 08/03/24 Range/Units 17:52 17:54 18:28 WBC (4.50-10.00) 10*3/uL RBC (4.10-5.20) 10*6/uL Hgb (12.0-15.0) g/dL Hct (37.2-46.3) % Plt Count (140-440) 10*3/uL MPV (9.5-12.2) fL Immature Gran # (0.00-0.04) 10*3/uL Neutrophils # (1.80-7.70) 10*3/uL Lymphocytes # (0.90-5.00) 10*3/uL Eosinophils # (0.04-0.35) 10*3/uL PT 13.8 H (10.0-12.5) sec INR 1.3 H (<1.2) Sodium (137-145) mmol/L Potassium (3.5-5.1) mmol/L Carbon Dioxide (22-30) mmol/L BUN (7-17) mg/dL Creatinine (0.52-1.04) mg/dL Glucose (74-99) mg/dL POC Glucose (mg/dL) 415 H (70-110) mg/dL Hemoglobin A1c (<=6.0) % Plasma Lactic Acid Yousif (0.7-2.0) mmol/L Calcium (8.4-10.2) mg/dL AST (14-36) U/L Troponin I 0.376 H* (0.000-0.034) ng/mL Total Protein (6.3-8.2) g/dL Albumin (3.5-5.0) g/dL Lipase (23-300) U/L Urine Appearance (Clear) Urine Protein (Negative) Urine Glucose (UA) (Negative) Urine Ketones (Negative) Urine Blood (Negative) Ur Leukocyte Esterase (Negative) Urine RBC (0-5) /hpf Urine WBC (0-5) /hpf Ur Squamous Epith Cells (0-4) /hpf Calcium Oxalate Crystal (None) /hpf Urine Bacteria (None) /hpf Urine Mucus (None) /hpf Urine Yeast (Budding) (None) /hpf 08/03/24 08/03/24 08/04/24 Range/Units 21:01 22:35 00:29 WBC (4.50-10.00) 10*3/uL RBC (4.10-5.20) 10*6/uL Hgb (12.0-15.0) g/dL Hct (37.2-46.3) % Plt Count (140-440) 10*3/uL MPV (9.5-12.2) fL Immature Gran # (0.00-0.04) 10*3/uL Neutrophils # (1.80-7.70) 10*3/uL Lymphocytes # (0.90-5.00) 10*3/uL Eosinophils # (0.04-0.35) 10*3/uL PT (10.0-12.5) sec INR (<1.2) Sodium (137-145) mmol/L Potassium (3.5-5.1) mmol/L Carbon Dioxide (22-30) mmol/L BUN (7-17) mg/dL Creatinine (0.52-1.04) mg/dL Glucose (74-99) mg/dL POC Glucose (mg/dL) 428 H (70-110) mg/dL Hemoglobin A1c (<=6.0) % Plasma Lactic Acid Yousif 2.5 H* 4.5 H* (0.7-2.0) mmol/L Calcium (8.4-10.2) mg/dL AST (14-36) U/L Troponin I (0.000-0.034) ng/mL Total Protein (6.3-8.2) g/dL Albumin (3.5-5.0) g/dL Lipase (23-300) U/L Urine Appearance (Clear) Urine Protein (Negative) Urine Glucose (UA) (Negative) Urine Ketones (Negative) Urine Blood (Negative) Ur Leukocyte Esterase (Negative) Urine RBC (0-5) /hpf Urine WBC (0-5) /hpf Ur Squamous Epith Cells (0-4) /hpf Calcium Oxalate Crystal (None) /hpf Urine Bacteria (None) /hpf Urine Mucus (None) /hpf Urine Yeast (Budding) (None) /hpf 08/04/24 08/04/24 08/04/24 Range/Units 00:55 01:30 02:31 WBC (4.50-10.00) 10*3/uL RBC (4.10-5.20) 10*6/uL Hgb (12.0-15.0) g/dL Hct (37.2-46.3) % Plt Count (140-440) 10*3/uL MPV (9.5-12.2) fL Immature Gran # (0.00-0.04) 10*3/uL Neutrophils # (1.80-7.70) 10*3/uL Lymphocytes # (0.90-5.00) 10*3/uL Eosinophils # (0.04-0.35) 10*3/uL PT (10.0-12.5) sec INR (<1.2) Sodium (137-145) mmol/L Potassium (3.5-5.1) mmol/L Carbon Dioxide (22-30) mmol/L BUN (7-17) mg/dL Creatinine (0.52-1.04) mg/dL Glucose (74-99) mg/dL POC Glucose (mg/dL) 529 H* 451 H (70-110) mg/dL Hemoglobin A1c (<=6.0) % Plasma Lactic Acid Yousif (0.7-2.0) mmol/L Calcium (8.4-10.2) mg/dL AST (14-36) U/L Troponin I (0.000-0.034) ng/mL Total Protein (6.3-8.2) g/dL Albumin (3.5-5.0) g/dL Lipase (23-300) U/L Urine Appearance Cloudy H (Clear) Urine Protein Trace H (Negative) Urine Glucose (UA) 4+ H (Negative) Urine Ketones Trace H (Negative) Urine Blood Trace H (Negative) Ur Leukocyte Esterase Large H (Negative) Urine RBC 9 H (0-5) /hpf Urine WBC 69 H (0-5) /hpf Ur Squamous Epith Cells 7 H (0-4) /hpf Calcium Oxalate Crystal Occasional H (None) /hpf Urine Bacteria Rare H (None) /hpf Urine Mucus Rare H (None) /hpf Urine Yeast (Budding) Few H (None) /hpf 08/04/24 08/04/24 08/04/24 Range/Units 03:47 04:53 06:31 WBC 11.42 H (4.50-10.00) 10*3/uL RBC 3.68 L (4.10-5.20) 10*6/uL Hgb 10.5 L (12.0-15.0) g/dL Hct 31.2 L (37.2-46.3) % Plt Count (140-440) 10*3/uL MPV (9.5-12.2) fL Immature Gran # 0.08 H (0.00-0.04) 10*3/uL Neutrophils # 10.20 H (1.80-7.70) 10*3/uL Lymphocytes # 0.60 L (0.90-5.00) 10*3/uL Eosinophils # 0.01 L (0.04-0.35) 10*3/uL PT (10.0-12.5) sec INR (<1.2) Sodium (137-145) mmol/L Potassium (3.5-5.1) mmol/L Carbon Dioxide (22-30) mmol/L BUN (7-17) mg/dL Creatinine (0.52-1.04) mg/dL Glucose (74-99) mg/dL POC Glucose (mg/dL) 394 H (70-110) mg/dL Hemoglobin A1c (<=6.0) % Plasma Lactic Acid Yousif 3.8 H* (0.7-2.0) mmol/L Calcium (8.4-10.2) mg/dL AST (14-36) U/L Troponin I (0.000-0.034) ng/mL Total Protein (6.3-8.2) g/dL Albumin (3.5-5.0) g/dL Lipase (23-300) U/L Urine Appearance (Clear) Urine Protein (Negative) Urine Glucose (UA) (Negative) Urine Ketones (Negative) Urine Blood (Negative) Ur Leukocyte Esterase (Negative) Urine RBC (0-5) /hpf Urine WBC (0-5) /hpf Ur Squamous Epith Cells (0-4) /hpf Calcium Oxalate Crystal (None) /hpf Urine Bacteria (None) /hpf Urine Mucus (None) /hpf Urine Yeast (Budding) (None) /hpf 08/04/24 08/04/24 08/04/24 Range/Units 06:31 06:31 06:42 WBC (4.50-10.00) 10*3/uL RBC (4.10-5.20) 10*6/uL Hgb (12.0-15.0) g/dL Hct (37.2-46.3) % Plt Count (140-440) 10*3/uL MPV (9.5-12.2) fL Immature Gran # (0.00-0.04) 10*3/uL Neutrophils # (1.80-7.70) 10*3/uL Lymphocytes # (0.90-5.00) 10*3/uL Eosinophils # (0.04-0.35) 10*3/uL PT (10.0-12.5) sec INR (<1.2) Sodium (137-145) mmol/L Potassium 3.3 L (3.5-5.1) mmol/L Carbon Dioxide 19 L (22-30) mmol/L BUN 25 H (7-17) mg/dL Creatinine 1.17 H (0.52-1.04) mg/dL Glucose 339 H (74-99) mg/dL POC Glucose (mg/dL) (70-110) mg/dL Hemoglobin A1c 9.8 H (<=6.0) % Plasma Lactic Acid Yousif 2.7 H* (0.7-2.0) mmol/L Calcium 7.0 L (8.4-10.2) mg/dL AST 44 H (14-36) U/L Troponin I (0.000-0.034) ng/mL Total Protein 5.1 L (6.3-8.2) g/dL Albumin 2.5 L (3.5-5.0) g/dL Lipase 21 L (23-300) U/L Urine Appearance (Clear) Urine Protein (Negative) Urine Glucose (UA) (Negative) Urine Ketones (Negative) Urine Blood (Negative) Ur Leukocyte Esterase (Negative) Urine RBC (0-5) /hpf Urine WBC (0-5) /hpf Ur Squamous Epith Cells (0-4) /hpf Calcium Oxalate Crystal (None) /hpf Urine Bacteria (None) /hpf Urine Mucus (None) /hpf Urine Yeast (Budding) (None) /hpf 08/04/24 08/04/24 08/04/24 Range/Units 07:42 10:04 10:41 WBC (4.50-10.00) 10*3/uL RBC (4.10-5.20) 10*6/uL Hgb (12.0-15.0) g/dL Hct (37.2-46.3) % Plt Count (140-440) 10*3/uL MPV (9.5-12.2) fL Immature Gran # (0.00-0.04) 10*3/uL Neutrophils # (1.80-7.70) 10*3/uL Lymphocytes # (0.90-5.00) 10*3/uL Eosinophils # (0.04-0.35) 10*3/uL PT (10.0-12.5) sec INR (<1.2) Sodium (137-145) mmol/L Potassium (3.5-5.1) mmol/L Carbon Dioxide (22-30) mmol/L BUN (7-17) mg/dL Creatinine (0.52-1.04) mg/dL Glucose (74-99) mg/dL POC Glucose (mg/dL) 370 H 403 H (70-110) mg/dL Hemoglobin A1c (<=6.0) % Plasma Lactic Acid Yousif 3.3 H* (0.7-2.0) mmol/L Calcium (8.4-10.2) mg/dL AST (14-36) U/L Troponin I (0.000-0.034) ng/mL Total Protein (6.3-8.2) g/dL Albumin (3.5-5.0) g/dL Lipase (23-300) U/L Urine Appearance (Clear) Urine Protein (Negative) Urine Glucose (UA) (Negative) Urine Ketones (Negative) Urine Blood (Negative) Ur Leukocyte Esterase (Negative) Urine RBC (0-5) /hpf Urine WBC (0-5) /hpf Ur Squamous Epith Cells (0-4) /hpf Calcium Oxalate Crystal (None) /hpf Urine Bacteria (None) /hpf Urine Mucus (None) /hpf Urine Yeast (Budding) (None) /hpf Assessment and Plan (1) Pneumonia Current Visit: Yes Status: Acute Code(s): J18.9 - PNEUMONIA, UNSPECIFIED ORGANISM SNOMED Code(s): 506030464 (2) Sepsis Current Visit: Yes Status: Acute Code(s): A41.9 - SEPSIS, UNSPECIFIED ORGANISM SNOMED Code(s): 59839733 (3) Pressure ulcer, heel, right, unstageable Current Visit: No Status: Acute Code(s): L89.610 - PRESSURE ULCER OF RIGHT HEEL, UNSTAGEABLE SNOMED Code(s): 49185302336987799 Plan: 1patient presented to the hospital with sepsis in this patient who did have a fever tachycardia elevated white count meeting criteria for SIRS/sepsis with evidence of diffuse multifocal airspace opacities will need to cover for the resistant gram-negative with the likely pathogen as the patient was recently discharged from this facility and exposed to antibiotics 2try to obtain sputum for vomiting culture and follow-up on the blood culture 3we will empirically treat with Zosyn and Levaquin while waiting for the workup to be completed 4keep bilateral heel area of the pressure to prevent any worsening of the bilateral heel pressure ulcer We will follow on clinical condition and cultures to further adjust medication if needed Thank you for this consultation we will follow the patient along with you Dictation was produced using [employer] dictation software. please excuse any grammatical, word or spelling errors. Time with Patient: Greater than 30
[2024-08-05 06:07] LABS: Glucose,Whole Blood 187 mg/dL (70-110)
[2024-08-05 08:19] LABS: Basophils # (A) 0.01 10*3/uL (0.00-0.10); Basophils % (A) 0.1 %; Eosinophils # (A) 0.00 10*3/uL (0.04-0.35); Eosinophils % (A) 0.0 %; HCT 26.9 % (37.2-46.3); Lymphocytes # (A) 0.82 10*3/uL (0.90-5.00); Lymphocytes % (A) 8.4 %; MCH 28.0 pg (27.0-32.0); MCHC 32.7 g/dL (32.0-37.0); MCV 85.7 fL (80.0-97.0); Monocytes # (A) 0.66 10*3/uL (0.20-1.00); Monocytes % (A) 6.8 %; Neutrophils # (A) 8.15 10*3/uL (1.80-7.70); Neutrophils % (A) 84.0 %; Platelet Count 427 10*3/uL (140-440); RBC 3.14 10*6/uL (4.10-5.20); RDW 13.8 % (11.5-14.5); WBC 9.71 10*3/uL (4.50-10.00)
[2024-08-05 08:26] LABS: HGB 8.8 g/dL (12.0-15.0)
[2024-08-05 08:30] LABS: ALT 13 U/L (4-34); AST 34 U/L (14-36); African American GFR (CKD) 60 (>60 ml/min/1.73 sqM); Albumin 2.1 g/dL (3.5-5.0); Alkaline Phosphatase 53 U/L (38-126); Anion Gap 11 mmol/L; Blood Urea Nitrogen 18 mg/dL (7-17); Calcium 7.1 mg/dL (8.4-10.2); Carbon Dioxide 19 mmol/L (22-30); Chloride 110 mmol/L (98-107); Glucose 189 mg/dL (74-99); Non-African American GFR(CKD) 52 (>60 ml/min/1.73 sqM); Potassium 3.6 mmol/L (3.5-5.1); Sodium 140 mmol/L (137-145); Total Protein 4.5 g/dL (6.3-8.2)
[2024-08-05] MEDS: CLOPIDOGREL 75 MG TAB PO SCH (08:36)
[2024-08-05] MEDS: NITROGLYCERIN SL TABS 0.4 MG TAB SUBLINGUAL PRN (09:36)
--- NOTE | 2024-08-05 11:18 | P.PN ---
Subjective Progress Note Date: 08/05/24 Consult reason: congestive heart failure History of present illness: This is a 63-year-old female patient of Dr. Lock with past medical history of coronary artery disease with prior triple-vessel stenting as well as lower extremity PAD status post stenting of bilateral iliac and bilateral SFA, carotid atherosclerosis with history of stroke, diabetes, hypertension, dyslipidemia and tobacco use and dependence. We have been asked to evaluate the patient for CHF. Patient states that she came into the hospital due to weakness. Her story is very difficult to follow. Patient was recently hospitalized 07/22 - 08/01 at which time she was treated for complicated urinary tract infection as well as a right heel unstageable pressure ulcer, small bowel ileus. Patient was discharged to home with home care in place. According to the ER notes, patient returned due to shortness of breath with a low pulse ox and altered mental status. Patient initially was started on BiPAP and has been transition to nasal cannula at 2 L. Patient has been started on nebulizer treatments and IV antibiotics. She states she is feeling better now since she came into the hospital. She is not sure what helped make her feel better. Blood pressure 102/64, heart rate 79, pulse ox 97% on 2 L nasal cannula. Patient had presented with a temperature max of 100.3, heart rate 139, respiratory rate 40, blood pressure 84/52. She is status post 3 L of IV fluid bolus, magnesium replacement, multiple doses of insulin, Tylenol and ibuprofen as well as Xanax and Ativan -EKG: Sinus tachycardia 135 bpm -Chest x-ray: #1 multifocal airspace opacities concerning for pneumonia. #2 correlate for pulmonary edema. Pneumonia and atypical pneumonia could be considered. -Laboratory studies: WBC 19.3 now 11.4. Hemoglobin 10.5. Sodium 137, potassium 3.3, BUN 25 creatinine 1.17. Blood sugar in the 400s. Lactic acid 3.3. Troponin 0.376. proBNP 12,900. Urinalysis positive for urinary tract infection. Cepheid viral panel not detected. -Home cardiac medications: Aspirin 81 mg twice daily, atorvastatin 80 mg at bedtime, Plavix 75 mg daily. -Lexiscan Cardiolite from 2019 was nondiagnostic electrocardiogram stress testing response to Lexiscan. Probably normal myocardial perfusion imaging. No evidence of stress-induced ischemia. Normal left ventricular systolic function. -Echocardiogram performed in the office in 2017-revealed EF 55%, mild concentric hypertrophy. Trace aortic regurgitation. Mild tricuspid regurgitation. 08/05/2024 Patient seen and examined on the cardiac stepdown unit. Patient states that she is not feeling better since she came into the hospital. She states she is so weak. Blood cultures are status received. Temperature max 102.2. Blood pressure 98/49, heart rate 106, pulse ox 90% on 3 L nasal cannula. Repeat blood work reveals WBC 9.7, hemoglobin 8.8. Potassium 3.6, BUN 18 creatinine 1.14. Hemoglobin A 1C is 9.4. Echocardiogram has been obtained and report is pending Physical examination: Gen: This is a 63-year-old female appears to be in no acute distress. VS: reviewed HEENT: Head is atraumatic, normocephalic. Pupils equal, round. Sclerae is anicteric. NECK: Supple. No JVD. LUNGS: Clear to auscultation. No wheezes or rhonchi. No crackles. No intercostal retractions. HEART: Regular rate and rhythm. No murmur. ABDOMEN: Soft No tenderness. EXTREMITIES: Mild bilateral lower extremity edema. No calf tenderness. NEUROLOGICAL: Patient is awake, alert and oriented to person. Assessment: Chronic heart failure Acute hypoxic respiratory failure initially on BiPAP, transitioned to nasal cannula Pneumonia with sepsis Hypotension, possible septic shock status post 3 L of IV fluid Acute kidney injury Urinary retention and Bilateral hydronephrosis on recent hospitalization Coronary artery disease with prior triple-vessel stenting Lower extremity PAD status post stenting of the bilateral iliac and bilateral SFA Carotid atherosclerosis History of stroke Diabetes mellitus type II uncontrolled with hyperglycemia, A1c 9.4 Hypertension Dyslipidemia Tobacco use and dependence Anemia, new onset Plan: Continue patient's home cardiac medications Continue treatment for pneumonia and respiratory failure Obtain 2-D echocardiogram and Doppler study report Further recommendations to follow based upon clinical course Smoking cessation: Patient will be provided the L2 quit line information at discharge Nurse practitioner note has been reviewed, I agree with documented findings and plan of care. Patient was seen and examined. Objective - Vital Signs Vital signs: Vital Signs Temp 99.1 F 08/05/24 03:44 Pulse 112 H 08/05/24 03:44 Resp 18 08/05/24 03:44 BP 95/59 08/05/24 03:44 Pulse Ox 96 08/05/24 03:44 FiO2 40 08/03/24 23:30 Intake & Output 08/04/24 08/05/24 08/05/24 18:59 06:59 18:59 Intake Total 300 1440 Output Total 1635 Balance 300 -195 Weight 72.575 kg 54.5 kg Intake: Intake, IV Titration 1200 Amount Piperacillin-Tazobactam 3 200 .375 gm In Sodium Chloride 0.9% 100 ml @ 25 mls/hr IVPB Q8H [facility] Rx#: [id number] Sodium Chloride 0.9% 1, 1000 000 ml @ 999 mls/hr IV . Q1H1M ONE Rx#:[id number] Oral 300 240 Output: Urine 1635 Straight 900 Other: Voiding Method Diaper Diaper # Voids 1 # Bowel Movements 0 - Labs CBC & Chem 7: 08/05/24 07:14 08/05/24 07:14 Labs: Abnormal Lab Results - Last 24 Hours (Table) 08/04/24 08/04/24 08/04/24 Range/Units 06:31 06:31 10:04 Neutrophils # 10.20 H (1.80-7.70) 10*3/uL Lymphocytes # 0.60 L (0.90-5.00) 10*3/uL Eosinophils # 0.01 L (0.04-0.35) 10*3/uL POC Glucose (mg/dL) (70-110) mg/dL Hemoglobin A1c 9.8 H (<=6.0) % Plasma Lactic Acid Yousif (0.7-2.0) mmol/L Procalcitonin 21.60 H (0.02-0.50) ng/mL 08/04/24 08/04/24 08/04/24 Range/Units 10:04 10:41 12:35 Neutrophils # (1.80-7.70) 10*3/uL Lymphocytes # (0.90-5.00) 10*3/uL Eosinophils # (0.04-0.35) 10*3/uL POC Glucose (mg/dL) 403 H 379 H (70-110) mg/dL Hemoglobin A1c (<=6.0) % Plasma Lactic Acid Yousif 3.3 H* (0.7-2.0) mmol/L Procalcitonin (0.02-0.50) ng/mL 08/04/24 08/04/2425 Range/Units 13:07 16:00 16:22 Neutrophils # (1.80-7.70) 10*3/uL Lymphocytes # (0.90-5.00) 10*3/uL Eosinophils # (0.04-0.35) 10*3/uL POC Glucose (mg/dL) 282 H (70-110) mg/dL Hemoglobin A1c (<=6.0) % Plasma Lactic Acid Yousif 3.2 H* 3.4 H* (0.7-2.0) mmol/L Procalcitonin (0.02-0.50) ng/mL 08/04/24 08/04/24 08/04/24 Range/Units 19:00 19:40 21:38 Neutrophils # (1.80-7.70) 10*3/uL Lymphocytes # (0.90-5.00) 10*3/uL Eosinophils # (0.04-0.35) 10*3/uL POC Glucose (mg/dL) 211 H (70-110) mg/dL Hemoglobin A1c (<=6.0) % Plasma Lactic Acid Yousif 3.7 H* 3.1 H* (0.7-2.0) mmol/L Procalcitonin (0.02-0.50) ng/mL 08/05/24 Range/Units 06:05 Neutrophils # (1.80-7.70) 10*3/uL Lymphocytes # (0.90-5.00) 10*3/uL Eosinophils # (0.04-0.35) 10*3/uL POC Glucose (mg/dL) 187 H (70-110) mg/dL Hemoglobin A1c (<=6.0) % Plasma Lactic Acid Yousif (0.7-2.0) mmol/L Procalcitonin (0.02-0.50) ng/mL
[2024-08-05 11:48] LABS: Glucose,Whole Blood 311 mg/dL (70-110)
[2024-08-05] MEDS: ISOSORBIDE MONONITRATE ER 15 MG TAB PO SCH (12:12)
[2024-08-05] MEDS: FLUCONAZOLE 100 MG TAB PO ONE (13:38)
--- NOTE | 2024-08-05 14:18 | P.PN ---
Subjective Progress Note Date: 08/05/24 Patient is a 63 female with past medical history significant for hypertension, hyperlipidemia, diabetes mellitus type 2, coronary disease with previous PCI/stents, peripheral vascular disease, left foot metatarsal amputation as well as right fourth-fifth toe amputation. Of note, patient recently hospitalized May, with left hip fracture. CT of the left hip showing a nondisplaced oblique fracture through the superior corner of the left greater trochanter. Did return to the hospital 07/22/2024 with abdominal pain. Thought to possible have a urinary tract infection. Abdominal/pelvis CT remarkable for bilateral hydronephrosis, right greater than left, bladder wall thickening, and small bowel ileus. Incidental findings of bilateral pleural effusions and compressive atelectasis. Patient was discharged on 08/01/2024. Patient returns to the emergency department 2 days later complaining of increased weakness, fevers, and shortness of breath. She was placed on BiPAP initially in the ED. She was also noted to be hypotensive and has been fluid resuscitated with a total of 3 L of crystalloid fluid so far. Febrile with a temperature of 100.3 F. Workup including a chest x-ray showing multifocal airspace opacities concerning for pneumonia. Denies any coughing, sputum production, hemoptysis, chest pain. Denies any history of heart failure. Denies any lower extremity edema. Denies any she denies any dysuria, frequency, hematuria, suprapubic pain or flank pain. She is retaining urine and a bedside bladder scan showed 850 cc of urine in the bladder. Labs including a CBC with a WBC count of 19.4, hemoglobin 13, platelets 681. CMP: Sodium 131, potassium 4.3, chloride 100, serum bicarb 18, BUN 22, creatinine 1.36, glucose 389. Lactic was 2.7 is down to 2.5. LFTs not elevated. Troponin was 0.376. NT proBNP significantly elevated at 12,900. Patient currently being evaluated in the emergency department. She is on BiPAP with settings 14/6 and FiO2 40%. SpO2 reading 100% on bedside monitor. She does not appear to be any respiratory distress. Talking complete sentences. No accessory muscle use. She was easily transitioned to nasal cannula. Blood pressure currently 100/66 mmHg. She was empirically placed on a combination of Levaquin and Zosyn in the ED. Currently afebrile. The patient is seen today August 05, 2024 in follow-up on the selective care unit. She is currently resting in bed. Awake and alert in no acute distress. Maintaining O2 saturations in the 90s on 3 L/min per nasal cannula. She is afebrile. Hemodynamically stable. Chest x-ray reveals increased diffuse lung markings bilaterally. Urine culture positive for Chrissy. Blood culture p ending. White count 9.7. Hemoglobin 8.8. Platelets 427. Sodium 140. Potassium 3.6. Bicarb 19. BUN 18. Creatinine 1.14. Glucose 189. Procalcitonin 21.6. She remains on DuoNeb inhalations, antibiotics in the form of Zosyn and Levaquin. Initiated on Diflucan. Heparin for DVT prophylaxis. Objective - Vital Signs Vital signs: Vital Signs Temp 98.9 F 08/05/24 11:06 Pulse 106 H 08/05/24 13:10 Resp 20 08/05/24 11:06 BP 104/56 08/05/24 12:11 Pulse Ox 98 08/05/24 11:06 FiO2 40 08/03/24 23:30 Intake & Output 08/04/24 08/05/24 08/05/24 18:59 06:59 18:59 Intake Total 300 1440 Output Total 1635 775 Balance 300 -195 -775 Weight 72.575 kg 54.5 kg 54.5 kg Intake: Intake, IV Titration 1200 Amount Piperacillin-Tazobactam 3 200 .375 gm In Sodium Chloride 0.9% 100 ml @ 25 mls/hr IVPB Q8H [facility] Rx#: [id number] Sodium Chloride 0.9% 1, 1000 000 ml @ 999 mls/hr IV . Q1H1M ONE Rx#:[id number] Oral 300 240 Output: Urine 1635 775 Straight 900 Other: Voiding Method Diaper Diaper Indwelling Catheter # Voids 1 # Bowel Movements 0 - Exam GENERAL EXAM: Alert, pleasant 63-year-old female, resting comfortably in bed, on 3 L/min nasal cannula, comfortable in no apparent distress. HEAD: Normocephalic and atraumatic EYES: Normal reaction of pupils, equal size. NOSE: Clear with pink turbinates. THROAT: No erythema or exudates. NECK: No masses, no JVD. CHEST: No chest wall deformity. LUNGS: Equal air entry with no crackles, wheeze, rhonchi or dullness. No conversational dyspnea or accessory muscle use.. CVS: S1 and S2 normal with no audible murmur, regular rhythm. No extra heart sounds ABDOMEN: No hepatosplenomegaly, active bowel sounds, no guarding or rigidity. SPINE: No scoliosis or deformity SKIN: No rashes CENTRAL NERVOUS SYSTEM: No focal deficits, tone is normal in all 4 extremities. EXTREMITIES: Prior right 4th and 5th toe amputation and left foot transmetatarsal amputation. Unstageable right heel pressure ulcer. There is no peripheral edema, clubbing, or cyanosis. Peripheral pulses are intact. - Labs CBC & Chem 7: 08/05/24 07:14 08/05/24 07:14 Labs: Abnormal Lab Results - Last 24 Hours (Table) 08/04/24 08/04/24 08/04/24 Range/Units 10:04 16:00 16:22 RBC (4.10-5.20) 10*6/uL Hgb (12.0-15.0) g/dL Hct (37.2-46.3) % Immature Gran # (0.00-0.04) 10*3/uL Neutrophils # (1.80-7.70) 10*3/uL Lymphocytes # (0.90-5.00) 10*3/uL Eosinophils # (0.04-0.35) 10*3/uL Chloride (98-107) mmol/L Carbon Dioxide (22-30) mmol/L BUN (7-17) mg/dL Creatinine (0.52-1.04) mg/dL Glucose (74-99) mg/dL POC Glucose (mg/dL) 282 H (70-110) mg/dL Hemoglobin A1c (<=6.0) % Plasma Lactic Acid Yousif 3.4 H* (0.7-2.0) mmol/L Calcium (8.4-10.2) mg/dL Total Protein (6.3-8.2) g/dL Albumin (3.5-5.0) g/dL Procalcitonin 21.60 H (0.02-0.50) ng/mL 08/04/24 08/04/24 08/04/24 Range/Units 19:00 19:40 21:38 RBC (4.10-5.20) 10*6/uL Hgb (12.0-15.0) g/dL Hct (37.2-46.3) % Immature Gran # (0.00-0.04) 10*3/uL Neutrophils # (1.80-7.70) 10*3/uL Lymphocytes # (0.90-5.00) 10*3/uL Eosinophils # (0.04-0.35) 10*3/uL Chloride (98-107) mmol/L Carbon Dioxide (22-30) mmol/L BUN (7-17) mg/dL Creatinine (0.52-1.04) mg/dL Glucose (74-99) mg/dL POC Glucose (mg/dL) 211 H (70-110) mg/dL Hemoglobin A1c (<=6.0) % Plasma Lactic Acid Yousif 3.7 H* 3.1 H* (0.7-2.0) mmol/L Calcium (8.4-10.2) mg/dL Total Protein (6.3-8.2) g/dL Albumin (3.5-5.0) g/dL Procalcitonin (0.02-0.50) ng/mL 08/05/24 08/05/24 08/05/24 Range/Units 06:05 07:14 07:14 RBC 3.14 L (4.10-5.20) 10*6/uL Hgb 8.8 L D (12.0-15.0) g/dL Hct 26.9 L (37.2-46.3) % Immature Gran # 0.07 H (0.00-0.04) 10*3/uL Neutrophils # 8.15 H (1.80-7.70) 10*3/uL Lymphocytes # 0.82 L (0.90-5.00) 10*3/uL Eosinophils # 0.00 L (0.04-0.35) 10*3/uL Chloride (98-107) mmol/L Carbon Dioxide (22-30) mmol/L BUN (7-17) mg/dL Creatinine (0.52-1.04) mg/dL Glucose (74-99) mg/dL POC Glucose (mg/dL) 187 H (70-110) mg/dL Hemoglobin A1c 9.4 H (<=6.0) % Plasma Lactic Acid Yousif (0.7-2.0) mmol/L Calcium (8.4-10.2) mg/dL Total Protein (6.3-8.2) g/dL Albumin (3.5-5.0) g/dL Procalcitonin (0.02-0.50) ng/mL 08/05/24 08/05/24 Range/Units 07:14 11:47 RBC (4.10-5.20) 10*6/uL Hgb (12.0-15.0) g/dL Hct (37.2-46.3) % Immature Gran # (0.00-0.04) 10*3/uL Neutrophils # (1.80-7.70) 10*3/uL Lymphocytes # (0.90-5.00) 10*3/uL Eosinophils # (0.04-0.35) 10*3/uL Chloride 110 H (98-107) mmol/L Carbon Dioxide 19 L (22-30) mmol/L BUN 18 H (7-17) mg/dL Creatinine 1.14 H (0.52-1.04) mg/dL Glucose 189 H (74-99) mg/dL POC Glucose (mg/dL) 311 H (70-110) mg/dL Hemoglobin A1c (<=6.0) % Plasma Lactic Acid Yousif (0.7-2.0) mmol/L Calcium 7.1 L (8.4-10.2) mg/dL Total Protein 4.5 L (6.3-8.2) g/dL Albumin 2.1 L (3.5-5.0) g/dL Procalcitonin (0.02-0.50) ng/mL Microbiology - Last 24 Hours (Table) 08/04/24 02:13 Blood Culture - Preliminary Blood 08/04/24 01:30 Urine Culture - Final Urine,Voided Chrissy albicans Assessment and Plan Assessment: Acute hypoxemic respiratory failure, initially placed on BiPAP on arrival in the ED, now transitioned over to 2 L/min nasal cannula, chest x-ray showing multifocal airspace opacities concerning for pneumonia. Possible HCAP, patient covered empirically on antibiotics. Hypotension, consider sepsis/septic shock Acute febrile illness Acute leukocytosis Urinary retention, abdominal/pelvis CT from previous admission remarkable for bilateral hydronephrosis, right greater than left, bladder wall thickening, and small bowel ileus Acute kidney injury, creatinine 1.36 Elevated troponins rule out non-ST elevation IN History of hypertension History of hyperlipidemia Diabetes mellitus type 2, uncontrolled History of coronary artery disease with previous PCI/stents History of peripheral vascular disease History of left foot transmetatarsal amputation History of right 4th and 5th toe amputation on the right History of nondisplaced oblique fracture of the left greater trochanter Currently undergoing tobacco dependence Plan: The patient was seen and evaluated Chest x-ray, labs and medications reviewed Currently on 3 L nasal cannula Titrate the FiO2 as tolerated Echocardiogram pending Currently on Levaquin and Zosyn Continued on bronchodilators Heparin for DVT prophylaxis Continued on Diflucan We will continue to follow I have personally seen and examined the patient, performed the documentation and the assessment and plan as written. Number of minutes spent on the visit: 10 Dictation was produced using [employer] dictation software. Please excuse any grammatical, word or spelling errors.
[2024-08-05] MEDS: NA PHOS,M-B/NA PHOS,DI-BA 133 ML ENEMA RECTAL ONE (15:39)
--- NOTE | 2024-08-05 16:37 | P.PN ---
Subjective Progress Note Date: 08/05/24 Principal diagnosis: Reason for follow-up is fever/pneumonia Patient is a 63-year-old female with a past medical history significant for diabetes mellitus reflux hypertension hyperlipidemia TN CVA TIA previous patient noted to have history of recurrent UTI recently discharged from this hospital after receiving treatment for UTI cystitis has been brought back to the hospital concerning for generalized weakness along with mental status changes and low oxygen patient did have a low-grade fever chest x-ray with multifocal airspace opacity probably this consultation. On today's evaluation that is 08/05/2024, Patient did have a fever of 102.2 F last night patient is afebrile this morning patient denies having any chest pain shortness of breath or worsening cough, the patient is currently on 3 L nasal cannula oxygen patient denies any abdominal pain no diarrhea no nausea no vomiting. Patient white count normal normalized to 9.7 overnight, creatinine is 1.14 u rine is growing Chrissy blood culture has been pending so far sputum not collected Objective - Vital Signs Vital signs: Vital Signs Temp 98.5 F 08/05/24 15:22 Pulse 105 H 08/05/24 15:22 Resp 20 08/05/24 15:22 BP 118/70 08/05/24 15:22 Pulse Ox 96 08/05/24 15:22 FiO2 40 08/03/24 23:30 Intake & Output 08/04/24 08/05/24 08/05/24 18:59 06:59 18:59 Intake Total 300 1440 Output Total 1635 1275 Balance 300 -195 -1275 Weight 72.575 kg 54.5 kg 54.5 kg Intake: Intake, IV Titration 1200 Amount Piperacillin-Tazobactam 3 200 .375 gm In Sodium Chloride 0.9% 100 ml @ 25 mls/hr IVPB Q8H [facility] Rx#: [id number] Sodium Chloride 0.9% 1, 1000 000 ml @ 999 mls/hr IV . Q1H1M ONE Rx#:[id number] Oral 300 240 Output: Urine 1635 1275 Straight 900 Other: Voiding Method Diaper Diaper Indwelling Catheter # Voids 1 # Bowel Movements 0 2 - Exam GENERAL DESCRIPTION: Middle-age female lying in bed in no distress RESPIRATORY SYSTEM: Unlabored breathing , decreased breath sounds at bases HEART: S1 S2 regular rate and rhythm , ABDOMEN: Soft , no tenderness EXTREMITIES: No edema feet - Labs CBC & Chem 7: 08/05/24 07:14 08/05/24 07:14 Labs: Abnormal Lab Results - Last 24 Hours (Table) 08/04/24 08/04/24 08/04/24 Range/Units 10:04 16:00 19:00 RBC (4.10-5.20) 10*6/uL Hgb (12.0-15.0) g/dL Hct (37.2-46.3) % Immature Gran # (0.00-0.04) 10*3/uL Neutrophils # (1.80-7.70) 10*3/uL Lymphocytes # (0.90-5.00) 10*3/uL Eosinophils # (0.04-0.35) 10*3/uL Chloride (98-107) mmol/L Carbon Dioxide (22-30) mmol/L BUN (7-17) mg/dL Creatinine (0.52-1.04) mg/dL Glucose (74-99) mg/dL POC Glucose (mg/dL) (70-110) mg/dL Hemoglobin A1c (<=6.0) % Plasma Lactic Acid Yousif 3.4 H* 3.7 H* (0.7-2.0) mmol/L Calcium (8.4-10.2) mg/dL Total Protein (6.3-8.2) g/dL Albumin (3.5-5.0) g/dL Procalcitonin 21.60 H (0.02-0.50) ng/mL 08/04/24 08/04/24 08/05/24 Range/Units 19:40 21:38 06:05 RBC (4.10-5.20) 10*6/uL Hgb (12.0-15.0) g/dL Hct (37.2-46.3) % Immature Gran # (0.00-0.04) 10*3/uL Neutrophils # (1.80-7.70) 10*3/uL Lymphocytes # (0.90-5.00) 10*3/uL Eosinophils # (0.04-0.35) 10*3/uL Chloride (98-107) mmol/L Carbon Dioxide (22-30) mmol/L BUN (7-17) mg/dL Creatinine (0.52-1.04) mg/dL Glucose (74-99) mg/dL POC Glucose (mg/dL) 211 H 187 H (70-110) mg/dL Hemoglobin A1c (<=6.0) % Plasma Lactic Acid Yousif 3.1 H* (0.7-2.0) mmol/L Calcium (8.4-10.2) mg/dL Total Protein (6.3-8.2) g/dL Albumin (3.5-5.0) g/dL Procalcitonin (0.02-0.50) ng/mL 08/05/24 08/05/24 08/05/24 Range/Units 07:14 07:14 07:14 RBC 3.14 L (4.10-5.20) 10*6/uL Hgb 8.8 L D (12.0-15.0) g/dL Hct 26.9 L (37.2-46.3) % Immature Gran # 0.07 H (0.00-0.04) 10*3/uL Neutrophils # 8.15 H (1.80-7.70) 10*3/uL Lymphocytes # 0.82 L (0.90-5.00) 10*3/uL Eosinophils # 0.00 L (0.04-0.35) 10*3/uL Chloride 110 H (98-107) mmol/L Carbon Dioxide 19 L (22-30) mmol/L BUN 18 H (7-17) mg/dL Creatinine 1.14 H (0.52-1.04) mg/dL Glucose 189 H (74-99) mg/dL POC Glucose (mg/dL) (70-110) mg/dL Hemoglobin A1c 9.4 H (<=6.0) % Plasma Lactic Acid Yousif (0.7-2.0) mmol/L Calcium 7.1 L (8.4-10.2) mg/dL Total Protein 4.5 L (6.3-8.2) g/dL Albumin 2.1 L (3.5-5.0) g/dL Procalcitonin (0.02-0.50) ng/mL 08/05/24 Range/Units 11:47 RBC (4.10-5.20) 10*6/uL Hgb (12.0-15.0) g/dL Hct (37.2-46.3) % Immature Gran # (0.00-0.04) 10*3/uL Neutrophils # (1.80-7.70) 10*3/uL Lymphocytes # (0.90-5.00) 10*3/uL Eosinophils # (0.04-0.35) 10*3/uL Chloride (98-107) mmol/L Carbon Dioxide (22-30) mmol/L BUN (7-17) mg/dL Creatinine (0.52-1.04) mg/dL Glucose (74-99) mg/dL POC Glucose (mg/dL) 311 H (70-110) mg/dL Hemoglobin A1c (<=6.0) % Plasma Lactic Acid Yousif (0.7-2.0) mmol/L Calcium (8.4-10.2) mg/dL Total Protein (6.3-8.2) g/dL Albumin (3.5-5.0) g/dL Procalcitonin (0.02-0.50) ng/mL Microbiology - Last 24 Hours (Table) 08/04/24 02:13 Blood Culture - Preliminary Blood 08/04/24 01:30 Urine Culture - Final Urine,Voided Chrissy albicans Assessment and Plan (1) Pneumonia Current Visit: Yes Status: Acute Code(s): J18.9 - PNEUMONIA, UNSPECIFIED ORGANISM SNOMED Code(s): 400734511 (2) Sepsis Current Visit: Yes Status: Acute Code(s): A41.9 - SEPSIS, UNSPECIFIED ORGANISM SNOMED Code(s): 89938561 (3) Pressure ulcer, heel, right, unstageable Current Visit: No Status: Acute Code(s): L89.610 - PRESSURE ULCER OF RIGHT HEEL, UNSTAGEABLE SNOMED Code(s): 55362077379959153 Plan: 1patient presented to the hospital with sepsis in this patient who did have a fever tachycardia elevated white count meeting criteria for SIRS/sepsis with evidence of diffuse multifocal airspace opacities will need to cover for the res istant gram-negative with the likely pathogen as the patient was recently discharged from this facility and exposed to antibiotics 2try to obtain sputum for Gram stain and culture and follow-up on the blood culture 3keep bilateral heel area of the pressure to prevent any worsening of the bilateral heel pressure ulcer 4-patient is currently being treated with Zosyn and Levaquin while waiting for the workup to be completed Daily Dictation was produced using [employer] dictation software. please excuse any grammatical, word or spelling errors. Time with Patient: Less than 30
[2024-08-05 16:49] LABS: Glucose,Whole Blood 183 mg/dL (70-110)
--- NOTE | 2024-08-05 18:06 | CA ---
Transthoracic Echo Report Name: Mary Jo Caldwell Age: 63 Gender: F : 1960 Exam Date: 08/05/2024 07:38 Exam Location: [facility] Ht (in): 68 Wt (lb): 160 Ordering Physician: Jannette Lainez MD Attending/Referring Phys: Professor Of Forestry Maryjo Roberts RDCS Procedure CPT: Indications: chf Cardiac Hx: Technical Quality: Fair Contrast 1: Total Dose (mL): Contrast 2: Total Dose (mL): MEASUREMENTS (Male / Female) Normal Values 2D ECHO LV Diastolic Diameter PLAX 3.8 cm 4.2 - 5.9 / 3.9 - 5.3 cm LV Systolic Diameter PLAX 2.9 cm IVS Diastolic Thickness 1.3 cm 0.6 - 1.0 / 0.6 - 0.9 cm LVPW Diastolic Thickness 1.2 cm 0.6 - 1.0 / 0.6 - 0.9 cm LV Relative Wall Thickness 0.6 RV Internal Dim ED PLAX 2.7 cm LVOT Diameter 2.2 cm LV Diastolic Volume MOD BP 104.5 cm??? 67 - 155 / 56 - 104 cm??? LV Systolic Volume MOD BP 78.0 cm??? 22 - 58 / 19 - 49 cm??? LV Ejection Fraction MOD BP 25.4 % >= 55 % LV Cardiac Index MOD BP 1500.8 cm???/min???m??? LV Diastolic Volume MOD 4C 92.5 cm??? LV Systolic Volume MOD 4C 72.1 cm??? LV Ejection Fraction MOD 4C 22.1 % LV Cardiac Index MOD 4C 1157.0 cm???/min???m??? LV Diastolic Length 4C 8.6 cm LV Systolic Length 4C 7.8 cm LV Diastolic Volume MOD 2C 104.9 cm??? LV Systolic Volume MOD 2C 76.3 cm??? LV Ejection Fraction MOD 2C 27.3 % LV Cardiac Index MOD 2C 1619.4 cm???/min???m??? LV Diastolic Length 2C 9.7 cm LV Systolic Length 2C 8.8 cm LA Volume 29.6 cm??? 18 - 58 / 22 - 52 cm??? LA Volume Index 15.8 cm???/m??? 16 - 28 cm???/m??? M-MODE Aortic Root Diameter MM 3.1 cm LA Systolic Diameter MM 4.3 cm LA Ao Ratio MM 1.4 DOPPLER AV Peak Velocity 151.2 cm/s AV Peak Gradient 9.1 mmHg AV Mean Velocity 111.5 cm/s AV Mean Gradient 5.7 mmHg AV Velocity Time Integral 26.7 cm LVOT Peak Velocity 80.4 cm/s LVOT Peak Gradient 2.6 mmHg LVOT Velocity Time Integral 15.9 cm LVOT Stroke Volume 58.3 cm??? LVOT Stroke Volume Index 31.3 ml/m??? LVOT Cardiac Index 3296.3 cm???/min???m??? AV Area Cont Eq vti 2.2 cm??? AV Area Cont Eq pk 1.9 cm??? MV Area PHT 6.9 cm??? Mitral E Point Velocity 111.4 cm/s Mitral A Point Velocity 114.7 cm/s Mitral E to A Ratio 1.0 MV Deceleration Time 109.8 ms TR Peak Velocity 284.6 cm/s TR Peak Gradient 32.4 mmHg PV Peak Velocity 85.8 cm/s PV Peak Gradient 2.9 mmHg FINDINGS Left Ventricle Left ventricular ejection fraction is estimated at 35%. Moderately increased septal wall thickness. Mildly increased posterior wall thickness. Severely decreased left ventricular ejection fraction. Right Ventricle Normal right ventricular size and function. Mild pulmonary hypertension. Right Atrium Normal right atrial size. Left Atrium Normal left atrial size. Mitral Valve Structurally normal mitral valve. Mild mitral regurgitation. No mitral stenosis. Aortic Valve Trileaflet aortic valve. Diffuse thickening (sclerosis) of the aortic valve cusps without reduced excursion. No aortic regurgitation. Can't rule out vegetation (suggest transesophageal echo if suspicion high). Tricuspid Valve Structurally normal tricuspid valve. Mild tricuspid regurgitation. No tricuspid stenosis. Pulmonic Valve Structurally normal pulmonic valve. No pulmonic stenosis. Trace pulmonic regurgitation. Pericardium No pericardial or pleural effusion. Aorta Normal size aortic root and proximal ascending aorta. CONCLUSIONS Left ventricular ejection fraction 35% with wall motion abnormalities and mainly inferior, inferior lateral, anterior lateral hypokinesis Mild mitral regurgitation Somewhat mobile echodensity of the aortic valve with possible vegetation. Consider PATRICIA if clinically indicated No aortic regurgitation Mild tricuspid regurgitation No pericardial effusion Previewed by: Dr. Pankaj Guzman DO (Electronically Signed) Final Date: 05 August 2024 18:04
[2024-08-05 20:19] LABS: Glucose,Whole Blood 303 mg/dL (70-110)
[2024-08-05] MEDS: FUROSEMIDE 10 MG/ML 4 ML VIAL IV STA (20:50)
--- NOTE | 2024-08-05 22:09 | PN ---
PROGRESS NOTE DATE OF SERVICE: 08/05/2024 SUBJECTIVE: This is a 63-year-old woman who was admitted with bilateral pneumonia, continues to be confused. The patient also with possible sepsis also. The patient is also severely constipated. The patient is not very compliant with medications also. PAST MEDICAL HISTORY: Reviewed. REVIEW OF SYSTEMS: A 14-point review of systems negative except as mentioned earlier. CURRENT MEDICATIONS: Reviewed. PHYSICAL EXAMINATION: VITAL SIGNS: Pulse is 106, blood pressure n respirations 20. HEENT: Conjunctivae normal. NECK: No JVD. CARDIOVASCULAR: S1 and S2. RESPIRATIONS: Decreased breath sounds at the bases. A few scattered rhonchi. ABDOMEN: Soft. NERVOUS SYSTEM: Nonfocal. LABORATORY DATA: Creatinine 1.14, likely elevated. Urine culture showed Chrissy albicans. ASSESSMENT: 1. Acute bilateral multifocal pneumonia, possibly hospital-acquired with severe sepsis and septic shock, present on admission. 2. Change in mental status, acute metabolic encephalopathy. 3. Diabetes mellitus, type 2, uncontrolled with hyperglycemia. 4. Troponin elevated up to 0.376, undetermined etiology. 5. Candidal urinary tract infection. 6. Elevated WBC. 7. History of recent ileus. 8. History of recent urinary tract infection. 9. Right heel ulcer. 10.History of myocardial infarction and coronary artery disease. 11.Hypertension. 12.Multiple complex medical issues. RECOMMENDATIONS: Recommend to continue current management and continue symptomatic treatment, broad- spectrum IV antibiotics. I would add Diflucan to the current regimen. Closely follow with Infectious Diseases, Cardiology. Guarded prognosis. Further recommendations to follow. MMREMBERTOL / IJN: [id number] / MTDD
[2024-08-06 06:05] LABS: Glucose,Whole Blood 186 mg/dL (70-110)
[2024-08-06 11:40] LABS: Glucose,Whole Blood 201 mg/dL (70-110)
--- NOTE | 2024-08-06 11:41 | P.PN ---
Subjective Progress Note Date: 08/06/24 Consult reason: congestive heart failure History of present illness: This is a 63-year-old female patient of Dr. Lock with past medical history of coronary artery disease with prior triple-vessel stenting as well as lower extremity PAD status post stenting of bilateral iliac and bilateral SFA, carotid atherosclerosis with history of stroke, diabetes, hypertension, dyslipidemia and tobacco use and dependence. We have been asked to evaluate the patient for CHF. Patient states that she came into the hospital due to weakness. Her story is very difficult to follow. Patient was recently hospitalized 07/22 - 08/01 at which time she was treated for complicated urinary tract infection as well as a right heel unstageable pressure ulcer, small bowel ileus. Patient was discharged to home with home care in place. According to the ER notes, patient returned due to shortness of breath with a low pulse ox and altered mental status. Patient initially was started on BiPAP and has been transition to nasal cannula at 2 L. Patient has been started on nebulizer treatments and IV antibiotics. She states she is feeling better now since she came into the hospital. She is not sure what helped make her feel better. Blood pressure 102/64, heart rate 79, pulse ox 97% on 2 L nasal cannula. Patient had presented with a temperature max of 100.3, heart rate 139, respiratory rate 40, blood pressure 84/52. She is status post 3 L of IV fluid bolus, magnesium replacement, multiple doses of insulin, Tylenol and ibuprofen as well as Xanax and Ativan -EKG: Sinus tachycardia 135 bpm -Chest x-ray: #1 multifocal airspace opacities concerning for pneumonia. #2 correlate for pulmonary edema. Pneumonia and atypical pneumonia could be considered. -Laboratory studies: WBC 19.3 now 11.4. Hemoglobin 10.5. Sodium 137, potassium 3.3, BUN 25 creatinine 1.17. Blood sugar in the 400s. Lactic acid 3.3. Troponin 0.376. proBNP 12,900. Urinalysis positive for urinary tract infection. Cepheid viral panel not detected. -Home cardiac medications: Aspirin 81 mg twice daily, atorvastatin 80 mg at bedtime, Plavix 75 mg daily. -Lexiscan Cardiolite from 2019 was nondiagnostic electrocardiogram stress testing response to Lexiscan. Probably normal myocardial perfusion imaging. No evidence of stress-induced ischemia. Normal left ventricular systolic function. -Echocardiogram performed in the office in 2017-revealed EF 55%, mild concentric hypertrophy. Trace aortic regurgitation. Mild tricuspid regurgitation. 08/05/2024 Patient seen and examined on the cardiac stepdown unit. Patient states that she is not feeling better since she came into the hospital. She states she is so weak. Blood cultures are status received. Temperature max 102.2. Blood pressure 98/49, heart rate 106, pulse ox 90% on 3 L nasal cannula. Repeat blood work reveals WBC 9.7, hemoglobin 8.8. Potassium 3.6, BUN 18 creatinine 1.14. Hemoglobin A 1C is 9.4. Echocardiogram has been obtained and report is pending 08/06/2024 Patient seen and examined. Heart rate 90-102, blood pressure 102/92, pulse ox 99% on 3 L nasal cannula. No repeat blood work today. Blood culture reveals no growth at 48 hours. Echocardiogram reveals EF 35% inferior inferior lateral and anterior lateral hypokinesis. Mild mitral regurgitation. Somewhat mobile hypodensity of the aortic valve with possible vegetation. Consider PATRICIA if clinically indicated. No aortic regurgitation. Mild tricuspid regurgitation. No pericardial effusion. Physical examination: Gen: This is a 63-year-old female appears to be in no acute distress. VS: reviewed HEENT: Head is atraumatic, normocephalic. Pupils equal, round. Sclerae is anicteric. NECK: Supple. No JVD. LUNGS: Clear to auscultation. No wheezes or rhonchi. No crackles. No intercostal retractions. HEART: Regular rate and rhythm. No murmur. ABDOMEN: Soft No tenderness. EXTREMITIES: Mild bilateral lower extremity edema. No calf tenderness. NEUROLOGICAL: Patient is awake, alert and oriented to person. Assessment: Chronic heart failure Acute hypoxic respiratory failure initially on BiPAP, transitioned to nasal cannula Pneumonia with sepsis Hypotension, possible septic shock status post 3 L of IV fluid Acute kidney injury Urinary retention and Bilateral hydronephrosis on recent hospitalization Coronary artery disease with prior triple-vessel stenting Lower extremity PAD status post stenting of the bilateral iliac and bilateral SFA Carotid atherosclerosis History of stroke Diabetes mellitus type II uncontrolled with hyperglycemia, A1c 9.4 Hypertension Dyslipidemia Tobacco use and dependence Anemia, new onset Plan: Continue patient's home cardiac medications Continue the addition of Imdur Patient will need a cardiac ischemic work up performed once she has recovered from her acute issues Continue treatment for pneumonia and respiratory failure Monitor blood cultures currently reported as no growth at 48 hours. If these convert to positive, we will plan on PATRICIA. Further recommendations to follow based upon clinical course Smoking cessation: Patient will be provided the [employer] quit line information at discharge Nurse practitioner note has been reviewed, I agree with documented findings and plan of care. Patient was seen and examined. Objective - Vital Signs Vital signs: Vital Signs Temp 100.9 F H 08/06/24 03:41 Pulse 101 H 08/06/24 08:32 Resp 19 08/06/24 03:41 BP 102/62 08/06/24 03:41 Pulse Ox 99 08/06/24 08:32 FiO2 40 08/05/24 17:31 Intake & Output 08/05/24 08/06/24 08/06/24 18:59 06:59 18:59 Output Total 1275 4215 Balance -1275 -4215 Weight 54.5 kg 63.5 kg Output: Urine 1275 4215 Other: Voiding Method Indwelling Catheter Indwelling Catheter # Bowel Movements 2 - Labs CBC & Chem 7: 08/05/24 07:14 08/05/24 07:14 Labs: Abnormal Lab Results - Last 24 Hours (Table) 08/05/24 08/05/24 08/05/24 Range/Units 07:14 11:47 16:47 POC Glucose (mg/dL) 311 H 183 H (70-110) mg/dL Hemoglobin A1c 9.4 H (<=6.0) % 08/05/24 08/06/24 Range/Units 20:17 05:59 POC Glucose (mg/dL) 303 H 186 H (70-110) mg/dL Hemoglobin A1c (<=6.0) % Microbiology - Last 24 Hours (Table) 08/04/24 02:13 Blood Culture - Preliminary Blood 08/04/24 01:30 Urine Culture - Final Urine,Voided Chrissy albicans
[2024-08-06] MEDS: FLUCONAZOLE 100 MG TAB PO SCH (12:44)
[2024-08-06 15:06] LABS: Basophils # (A) 0.01 10*3/uL (0.00-0.10); Basophils % (A) 0.1 %; Eosinophils # (A) 0.01 10*3/uL (0.04-0.35); Eosinophils % (A) 0.1 %; HCT 26.3 % (37.2-46.3); HGB 8.7 g/dL (12.0-15.0); Lymphocytes # (A) 1.04 10*3/uL (0.90-5.00); Lymphocytes % (A) 11.4 %; MCH 27.7 pg (27.0-32.0); MCHC 33.1 g/dL (32.0-37.0); MCV 83.8 fL (80.0-97.0); Monocytes # (A) 0.59 10*3/uL (0.20-1.00); Monocytes % (A) 6.5 %; Neutrophils # (A) 7.43 10*3/uL (1.80-7.70); Neutrophils % (A) 81.4 %; Platelet Count 347 10*3/uL (140-440); RBC 3.14 10*6/uL (4.10-5.20); RDW 13.8 % (11.5-14.5); WBC 9.13 10*3/uL (4.50-10.00)
--- NOTE | 2024-08-06 15:10 | P.PN ---
Subjective Progress Note Date: 08/06/24 Principal diagnosis: Sepsis. Patient is a 63 female with past medical history significant for hypertension, hyperlipidemia, diabetes mellitus type 2, coronary disease with previous PCI/stents, peripheral vascular disease, left foot metatarsal amputation as well as right fourth-fifth toe amputation. Of note, patient recently hospitalized May, with left hip fracture. CT of the left hip showing a nondisplaced oblique fracture through the superior corner of the left greater trochanter. Did return to the hospital 07/22/2024 with abdominal pain. Thought to possible have a urinary tract infection. Abdominal/pelvis CT remarkable for bilateral hydronephrosis, right greater than left, bladder wall thickening, and small bowel ileus. Incidental findings of bilateral pleural effusions and compressive atelectasis. Patient was discharged on 08/01/2024. Patient returns to the emergency department 2 days later complaining of increased weakness, fevers, and shortness of breath. She was placed on BiPAP initially in the ED. She was also noted to be hypotensive and has been fluid resuscitated with a total of 3 L of crystalloid fluid so far. Febrile with a temperature of 100.3 F. Workup including a chest x-ray showing multifocal airspace opacities concerning for pn eumonia. Denies any coughing, sputum production, hemoptysis, chest pain. Denies any history of heart failure. Denies any lower extremity edema. Denies any she denies any dysuria, frequency, hematuria, suprapubic pain or flank pain. She is retaining urine and a bedside bladder scan showed 850 cc of urine in the bladder. Labs including a CBC with a WBC count of 19.4, hemoglobin 13, platelets 681. CMP: Sodium 131, potassium 4.3, chloride 100, serum bicarb 18, BUN 22, creatinine 1.36, glucose 389. Lactic was 2.7 is down to 2.5. LFTs not elevated. Troponin was 0.376. NT proBNP significantly elevated at 12,900. Patient currently being evaluated in the emergency department. She is on BiPAP with settings 14/6 and FiO2 40%. SpO2 reading 100% on bedside monitor. She does not appear to be any respiratory distress. Talking complete sentences. No accessory muscle use. She was easily transitioned to nasal cannula. Blood pressure currently 100/66 mmHg. She was empirically placed on a combination of Levaquin and Zosyn in the ED. Currently afebrile. The patient is seen today August 05, 2024 in follow-up on the selective care unit. She is currently resting in bed. Awake and alert in no acute distress. Maintaining O2 saturations in the 90s on 3 L/min per nasal cannula. She is afebrile. Hemodynamically stable. Chest x-ray reveals increased diffuse lung markings bilaterally. Urine culture positive for Chrissy. Blood culture pending. White count 9.7. Hemoglobin 8.8. Platelets 427. Sodium 140. Potassium 3.6. Bicarb 19. BUN 18. Creatinine 1.14. Glucose 189. Pr ocalcitonin 21.6. She remains on DuoNeb inhalations, antibiotics in the form of Zosyn and Levaquin. Initiated on Diflucan. Heparin for DVT prophylaxis. Progress note dated August 06, 2024. The patient is seen today in room 372. She is currently resting in bed. She is awake and alert. No acute distress. The patient continues on 2 L nasal O2. She is getting saline at 75 cc an hour. She is hemodynamically stable. No new labs today other than a glucose of 201. Urine was positive for Chrissy. No new x-ray to report. The patient continues on fluconazole, Levaquin, and Zosyn. Objective - Vital Signs Vital signs: Vital Signs Temp 98.3 F 08/06/24 11:20 Pulse 105 H 08/06/24 11:20 Resp 16 08/06/24 11:20 BP 124/77 08/06/24 11:20 Pulse Ox 97 08/06/24 11:20 FiO2 40 08/05/24 17:31 Intake & Output 08/05/24 08/06/24 08/06/24 18:59 06:59 18:59 Intake Total 480 Output Total 1275 4215 750 Balance -1275 -4215 -270 Weight 54.5 kg 63.5 kg Intake: Oral 480 Output: Urine 1275 4215 750 Other: Voiding Method Indwelling Catheter Indwelling Catheter Indwelling Catheter # Bowel Movements 2 - Exam No acute distress, oriented 3. Patient continues on 2 L nasal cannula. HEENT examination is grossly unremarkable. Mucous membranes are moist. No oral lesions. Neck supple. Full range of motion. No adenopathy thyromegaly or neck vein distention. Cardiovascular examination reveals regular rhythm rate. S1-S2 normal. No S3 or S4. No discernible murmur noted. Lungs reveal clear breath sounds. Breath sounds are equal bilaterally. No adventitious lung sounds including wheezes rhonchi or crackles. Abdomen soft bowel sounds are heard. No masses or tenderness. Extremities are intact. No cyanosis clubbing or edema. Toe amputations noted. Skin is without rash or lesion. Neurologic examination is brief but nonfocal. - Labs CBC & Chem 7: 08/05/24 07:14 08/05/24 07:14 Labs: Abnormal Lab Results - Last 24 Hours (Table) 08/05/24 08/05/24 08/06/24 Range/Units 16:47 20:17 05:59 POC Glucose (mg/dL) 183 H 303 H 186 H (70-110) mg/dL 08/06/24 Range/Units 11:38 POC Glucose (mg/dL) 201 H (70-110) mg/dL Microbiology - Last 24 Hours (Table) 08/04/24 02:13 Blood Culture - Preliminary Blood Assessment and Plan Assessment: Acute hypoxemic respiratory failure, secondary to pneumonia. Hypotension, consider sepsis/septic shock. Acute febrile illness. Acute leukocytosis. Urinary retention. Acute kidney injury. Elevated troponins rule out non-ST elevation PR. History of hypertension. History of hyperlipidemia. Diabetes mellitus type 2, uncontrolled. History of coronary artery disease with previous PCI/stents. History of peripheral vascular disease. History of left foot transmetatarsal amputation. History of right 4th and 5th toe amputation on the right. History of nondisplaced oblique fracture of the left greater trochanter. Currently undergoing tobacco dependence. Plan: Plan dated August 06, 2024. 63-year-old female seen today in room 372. The patient is much more stable. She is on saline at 75 cc an hour. She is on 2 L nasal cannula. She continues on antibiotics. Labs, x-rays, and all medications are reviewed. We will continue to follow the patient, make recommendations were appropriate. The patient continues on Levaquin, and Zosyn. Prognosis is certainly guarded. We will continue to follow. Dictation was produced using [employer] software. Please excuse any grammatical, word or spelling errors. Time with Patient: Less than 30
[2024-08-06 15:13] LABS: African American GFR (CKD) >90 (>60 ml/min/1.73 sqM); Anion Gap 7 mmol/L; Blood Urea Nitrogen 12 mg/dL (7-17); Calcium 7.3 mg/dL (8.4-10.2); Carbon Dioxide 25 mmol/L (22-30); Chloride 104 mmol/L (98-107); Glucose 221 mg/dL (74-99); Non-African American GFR(CKD) >90 (>60 ml/min/1.73 sqM); Potassium 3.0 mmol/L (3.5-5.1); Sodium 136 mmol/L (137-145)
[2024-08-06 16:39] LABS: Glucose,Whole Blood 307 mg/dL (70-110)
[2024-08-06] MEDS ORDERED: ZINC OXIDE PASTE (Z-GUARD) 1 APPLIC TOPICAL PRN (18:13)
[2024-08-06 19:54] LABS: Glucose,Whole Blood 283 mg/dL (70-110)
[2024-08-06 21:46] LABS: Glucose,Whole Blood 281 mg/dL (70-110)
[2024-08-06] MEDS: ADENOSINE 3 MG/ML 2 ML VIAL IVP STA ×2 (22:06→22:10)
[2024-08-06 22:28] LABS: Glucose,Whole Blood 301 mg/dL (70-110)
--- NOTE | 2024-08-06 22:31 | XR ---
EXAM: XR Chest, 1 View CLINICAL HISTORY: Respiratory distress TECHNIQUE: Frontal view of the chest. COMPARISON: Portable chest single view 08/04/2024 FINDINGS: Lungs: Patchy opacity involving the right lower lung zone is slightly increased from the previous examination. The pulmonary vasculature appears somewhat equalize. Pleural space: No large pleural effusion. No pneumothorax. Heart: The cardiac silhouette is stable in appearance. Mediastinum: The mediastinal contours are thought to be stable, accounting for alteration projection technique. No tracheal deviation. Bones/joints: Unremarkable. No acute fracture. Tubes, lines and devices: Incidental spinal stimulator leads in the inferior thoracic region. IMPRESSION: Patchy opacity involving the right lower lung zone is slightly increased from the previous examination. Differential considerations include asymmetric edema or advancing pneumonia.
[2024-08-06] MEDS: DEXTROSE 5% IN WATER 100 ML with AMIODARONE 150 MG IV ONE (22:49)
[2024-08-06 22:58] LABS: HCT 30.4 % (37.2-46.3); HGB 10.1 g/dL (12.0-15.0); MCH 27.6 pg (27.0-32.0); MCHC 33.2 g/dL (32.0-37.0); MCV 83.1 fL (80.0-97.0); Platelet Count 433 10*3/uL (140-440); RBC 3.66 10*6/uL (4.10-5.20); RDW 13.9 % (11.5-14.5); WBC 17.16 10*3/uL (4.50-10.00)
[2024-08-06] MEDS: AMIODARONE 360 MG in DEXTROSE 5% IN WATER 200 ML IV ONE (23:04)
[2024-08-06 23:24] LABS: ALT 13 U/L (4-34); AST 30 U/L (14-36); African American GFR (CKD) >90 (>60 ml/min/1.73 sqM); Albumin 2.4 g/dL (3.5-5.0); Alkaline Phosphatase 63 U/L (38-126); Anion Gap 9 mmol/L; Blood Urea Nitrogen 11 mg/dL (7-17); Calcium 7.3 mg/dL (8.4-10.2); Carbon Dioxide 23 mmol/L (22-30); Chloride 103 mmol/L (98-107); Glucose 252 mg/dL (74-99); Non-African American GFR(CKD) >90 (>60 ml/min/1.73 sqM); Potassium 3.3 mmol/L (3.5-5.1); Sodium 135 mmol/L (137-145); Total Protein 4.9 g/dL (6.3-8.2)
[2024-08-06] MEDS ORDERED: Potassium Replacement Protocol 1 EACH MISC MISCELLANE PRN (23:33)
[2024-08-06] MEDS: SODIUM CHLORIDE 0.9% 500 ML 500 ML IV ONE (23:51)
[2024-08-06] MEDS: POTASSIUM CHLORIDE 10 MEQ in WATER FOR INJECTION 1 100ML.BAG IVPB SCH (23:52)
[2024-08-07] MEDS: SODIUM CHLORIDE 0.9% 1,000 ML IV SCH (00:21)
--- NOTE | 2024-08-07 00:39 | PN ---
PROGRESS NOTE DATE OF SERVICE: 08/06/2024 SUBJECTIVE: This 63-year-old woman who was admitted with acute bilateral multifocal pneumonia, is being closely monitored. The patient has some constipation. The patient appears to be clinically improving at this time. PAST MEDICAL HISTORY: Reviewed. REVIEW OF SYSTEMS: A 14-point review of systems negative except as mentioned earlier. CURRENT MEDICATIONS: Reviewed. PHYSICAL EXAMINATION: VITAL SIGNS: Pulse is 82, blood pressure 80/52, and respirations 16. HEENT: Conjunctivae normal. NECK: No JVD. CARDIOVASCULAR: S1 and S2. RESPIRATIONS: Decreased breath sounds at the bases. ABDOMEN: Soft. LEGS: No edema. NERVOUS SYSTEM: Nonfocal. LABORATORY DATA: Not available today. ASSESSMENT: 1. Acute bilateral multifocal pneumonia, possibly hospital acquired with severe sepsis and septic shock, present on admission. 2. Change in mental status secondary to metabolic encephalopathy. 3. Diabetes mellitus, type 2, uncontrolled hyperglycemia. 4. Troponin elevated up to 0.376, undetermined origin. 5. Chrissy urinary tract infection. 6. Elevated WBC. 7. History of recent ileus. 8. History of recent urinary tract infection. 9. Right heel ulcer. 10.History of myocardial infarction, coronary artery disease. 11.Hypertension. 12.Multiple complex medical issues. 13.Constipation. 14.Fungal urinary tract infection. RECOMMENDATIONS: Recommend to continue current management and continue symptomatic treatment, broad- spectrum IV antibiotics. I would recommend repeat labs today and tomorrow. Continue with empiric antibiotics. As mentioned earlier, urine culture showed Chrissy albicans. I would recommend Diflucan to the regimen. Continue to follow with multiple consultants. Prognosis is extremely guarded because of multiple complex medical conditions. See orders for details. I would repeat a chest x-ray also tomorrow. MMODL / IJN: [id number] /
[2024-08-07 04:34] LABS: Basophils # (A) 0.01 10*3/uL (0.00-0.10); Basophils % (A) 0.1 %; Eosinophils # (A) 0.00 10*3/uL (0.04-0.35); Eosinophils % (A) 0.0 %; HCT 27.9 % (37.2-46.3); HGB 9.0 g/dL (12.0-15.0); Lymphocytes # (A) 1.25 10*3/uL (0.90-5.00); Lymphocytes % (A) 10.1 %; MCH 27.2 pg (27.0-32.0); MCHC 32.3 g/dL (32.0-37.0); MCV 84.3 fL (80.0-97.0); Monocytes # (A) 0.63 10*3/uL (0.20-1.00); Monocytes % (A) 5.1 %; Neutrophils # (A) 10.40 10*3/uL (1.80-7.70); Neutrophils % (A) 84.0 %; Platelet Count 331 10*3/uL (140-440); RBC 3.31 10*6/uL (4.10-5.20); RDW 14.0 % (11.5-14.5); WBC 12.38 10*3/uL (4.50-10.00)
[2024-08-07] MEDS: AMIODARONE 450 MG in DEXTROSE 5% IN WATER 250 ML IV SCH (04:37)
[2024-08-07 04:59] LABS: ALT 12 U/L (4-34); AST 27 U/L (14-36); African American GFR (CKD) >90 (>60 ml/min/1.73 sqM); Albumin 2.2 g/dL (3.5-5.0); Alkaline Phosphatase 56 U/L (38-126); Anion Gap 9 mmol/L; Blood Urea Nitrogen 12 mg/dL (7-17); Calcium 7.0 mg/dL (8.4-10.2); Carbon Dioxide 23 mmol/L (22-30); Chloride 102 mmol/L (98-107); Glucose 312 mg/dL (74-99); Non-African American GFR(CKD) >90 (>60 ml/min/1.73 sqM); Potassium 3.7 mmol/L (3.5-5.1); Sodium 134 mmol/L (137-145); Total Protein 4.5 g/dL (6.3-8.2)
[2024-08-07 06:27] LABS: Glucose,Whole Blood 351 mg/dL (70-110)
--- NOTE | 2024-08-07 07:49 | XR ---
EXAMINATION TYPE: XR chest 1V portable DATE OF EXAM: 08/07/2024 5:26 AM COMPARISON: 08/07/2019 CLINICAL INDICATION: Female, 63 years old with history of pneumonia, TECHNIQUE: XR chest 1V portable view(s) obtained. FINDINGS: The heart size is normal. The pulmonary vasculature is somewhat prominent. Mild increased lung markings are present may be some pulmonary edema. Previous right lower lobe infiltrate has improved IMPRESSION: 1. Improving right lower lobe infiltrate. 2. Diffuse increased lung markings with some prominence of pulmonary vascular markings. Some underlyi ng volume overload may be present. [facility], , 08/07/2024 7:47 AM
[2024-08-07] MEDS: POTASSIUM CHLORIDE ER 20 MEQ TAB.ER PO SCH (09:05)
[2024-08-07] MEDS: AMIODARONE 200 MG TAB PO SCH (11:07)
--- NOTE | 2024-08-07 11:09 | PN ---
PROGRESS NOTE FOLLOWUP NOTE HISTORY OF PRESENT ILLNESS: Mary Jo is a 63-year-old lady who was on the floor and had been transferred to ICU because of hypotension and atrial fibrillation with rapid ventricular rate. She has history of coronary artery disease, status post prior stenting, peripheral arterial disease, status post bilateral iliac and superficial femoral artery stenting, diabetes, hypertension, and dyslipidemia. She is admitted to hospital with a combination of problems including pneumonia and sepsis, chronic congestive heart failure, and while on the floor, developed hypotension with paroxysmal SVT. She converted back to sinus rhythm and she had to be admitted to ICU as a result. At the time of my evaluation, she remains in sinus rhythm. Heart rate is controlled. She is on IV amiodarone. PHYSICAL EXAMINATION: GENERAL: On exam, comfortable at rest. VITAL SIGNS: Heart rate is 80 beats, blood pressure is 90/60, respiratory rate 18, and O2 saturation is 100%. NECK: There is no jugular venous distention. Carotid upstroke is normal. CHEST: Reveals occasional rhonchi bilaterally. HEART: Reveals first and second heart sounds. Systolic murmur at the apex. ABDOMEN: Soft. EXTREMITIES: Reveal mild edema. LABORATORY DATA: Show hemoglobin of 9, platelet count is 330. Potassium is 3.7 and creatinine is 0.6. ASSESSMENT: 1. Paroxysmal SVT. 2. Hypotension. 3. Pneumonia. PLAN: Blood cultures have been negative so far. I am going to switch the amiodarone to p.o. and would stop the IV amiodarone. MMODL / IJN: [id number] /
[2024-08-07 11:33] LABS: Glucose,Whole Blood 297 mg/dL (70-110)
[2024-08-07] MEDS ORDERED: Magnesium Replacement Protocol 1 EACH MISC MISCELLANE PRN (11:49)
[2024-08-07] MEDS ORDERED: Potassium Replacement Protocol 1 EACH MISC MISCELLANE PRN (11:49)
--- NOTE | 2024-08-07 11:53 | P.PN ---
Subjective Progress Note Date: 08/07/24 Principal diagnosis: Sepsis. Patient is a 63 female with past medical history significant for hypertension, hyperlipidemia, diabetes mellitus type 2, coronary disease with previous PCI/stents, peripheral vascular disease, left foot metatarsal amputation as well as right fourth-fifth toe amputation. Of note, patient recently hospitalized May, with left hip fracture. CT of the left hip showing a nondisplaced oblique fracture through the superior corner of the left greater trochanter. Did return to the hospital 07/22/2024 with abdominal pain. Thought to possible have a urinary tract infection. Abdominal/pelvis CT remarkable for bilateral hydronephrosis, right greater than left, bladder wall thickening, and small bowel ileus. Incidental findings of bilateral pleural effusions and compressive atelectasis. Patient was discharged on 08/01/2024. Patient returns to the emergency department 2 days later complaining of increased weakness, fevers, and shortness of breath. She was placed on BiPAP initially in the ED. She was also noted to be hypotensive and has been fluid resuscitated with a total of 3 L of crystalloid fluid so far. Febrile with a temperature of 100.3 F. Workup including a chest x-ray showing multifocal airspace opacities concerning for pn eumonia. Denies any coughing, sputum production, hemoptysis, chest pain. Denies any history of heart failure. Denies any lower extremity edema. Denies any she denies any dysuria, frequency, hematuria, suprapubic pain or flank pain. She is retaining urine and a bedside bladder scan showed 850 cc of urine in the bladder. Labs including a CBC with a WBC count of 19.4, hemoglobin 13, platelets 681. CMP: Sodium 131, potassium 4.3, chloride 100, serum bicarb 18, BUN 22, creatinine 1.36, glucose 389. Lactic was 2.7 is down to 2.5. LFTs not elevated. Troponin was 0.376. NT proBNP significantly elevated at 12,900. Patient currently being evaluated in the emergency department. She is on BiPAP with settings 14/6 and FiO2 40%. SpO2 reading 100% on bedside monitor. She does not appear to be any respiratory distress. Talking complete sentences. No accessory muscle use. She was easily transitioned to nasal cannula. Blood pressure currently 100/66 mmHg. She was empirically placed on a combination of Levaquin and Zosyn in the ED. Currently afebrile. The patient is seen today August 05, 2024 in follow-up on the selective care unit. She is currently resting in bed. Awake and alert in no acute distress. Maintaining O2 saturations in the 90s on 3 L/min per nasal cannula. She is afebrile. Hemodynamically stable. Chest x-ray reveals increased diffuse lung markings bilaterally. Urine culture positive for Chrissy. Blood culture pending. White count 9.7. Hemoglobin 8.8. Platelets 427. Sodium 140. Potassium 3.6. Bicarb 19. BUN 18. Creatinine 1.14. Glucose 189. Pr ocalcitonin 21.6. She remains on DuoNeb inhalations, antibiotics in the form of Zosyn and Levaquin. Initiated on Diflucan. Heparin for DVT prophylaxis. Progress note dated August 06, 2024. The patient is seen today in room 372. She is currently resting in bed. She is awake and alert. No acute distress. The patient continues on 2 L nasal O2. She is getting saline at 75 cc an hour. She is hemodynamically stable. No new labs today other than a glucose of 201. Urine was positive for Chrissy. No new x-ray to report. The patient continues on fluconazole, Levaquin, and Zosyn. Progress note dated August 07, 2024. 63-year-old female who was transferred to the intensive care unit, at about 11 PM last night. She came in because of supraventricular tachycardia. She was moved over by my nurse practitioner. She is seen today in room 261. She is on 3 L nasal O2. She is getting saline at 75 cc an hour, and amiodarone 0.5 mg/min. She came into the intensive care unit, at 11 PM. She has been on BiPAP, at 14/6, 40%, for 6 hours. Current labs include a white count of 12.4, hemoglobin 9, hematocrit 27.9, platelet count 331,000. Sodium 134, potassium 3.7, chloride 102, CO2 23, anion gap 9, BUN 12, creatinine 0.63. Glucose 297. Calcium 7. Magnesium 1.3. Albumin 2.2. Urine culture was positive for Chrissy albicans. Chest x-ray shows an improved right lower lobe infiltrate, and possible mild fluid overload. Objective - Vital Signs Vital signs: Vital Signs Temp 97.8 F 06/19/25 08:00 Pulse 82 08/07/24 10:00 Resp 22 08/07/24 10:00 BP 91/64 08/07/24 10:00 Pulse Ox 100 08/07/24 10:00 FiO2 40 08/07/24 08:11 Intake & Output 08/06/24 08/07/24 08/07/24 18:59 06:59 18:59 Intake Total 600 1600 705 Output Total 1200 530 180 Balance -600 1070 525 Weight 63.5 kg Intake: Intake, IV Titration 1600 225 Amount Piperacillin-Tazobactam 3 100 .375 gm In Sodium Chloride 0.9% 100 ml @ 25 mls/hr IVPB Q8H [facility] Rx#: [id number] Potassium Chloride 10 meq 400 In Water For Injection 1 100ml.bag @ 100 mls/hr IVPB Q1HR [facility] Rx#: [id number] Sodium Chloride 0.9% 1, 600 225 000 ml @ 75 mls/hr IV . [id number] [facility] Rx#:[id number] Sodium Chloride 0.9% 500 500 ml 500 ml @ 999 mls/hr IV .Q31M [facility] Rx#:[id number] Oral 600 480 Output: Urine 1200 530 180 Other: Voiding Method Indwelling Catheter Indwelling Catheter Indwelling Catheter # Bowel Movements 1 - Exam No acute distress, oriented 3. Patient continues on 3 L nasal cannula. HEENT examination is grossly unremarkable. Mucous membranes are moist. No oral lesions. Neck supple. Full range of motion. No adenopathy thyromegaly or neck vein distention. Cardiovascular examination reveals regular rhythm rate. S1-S2 normal. No S3 or S4. No discernible murmur noted. Lungs reveal clear breath sounds. Breath sounds are equal bilaterally. No adventitious lung sounds including wheezes rhonchi or crackles. Abdomen soft bowel sounds are heard. No masses or tenderness. Extremities are intact. No cyanosis clubbing or edema. Toe amputations noted. Skin is without rash or lesion. Neurologic examination is brief but nonfocal. - Labs CBC & Chem 7: 08/07/24 04:05 08/07/24 07:44 Labs: Abnormal Lab Results - Last 24 Hours (Table) 08/06/24 08/06/24 08/06/24 Range/Units 14:38 14:38 16:37 WBC (4.50-10.00) 10*3/uL RBC 3.14 L (4.10-5.20) 10*6/uL Hgb 8.7 L (12.0-15.0) g/dL Hct 26.3 L (37.2-46.3) % Immature Gran # 0.05 H (0.00-0.04) 10*3/uL Neutrophils # (1.80-7.70) 10*3/uL Eosinophils # 0.01 L (0.04-0.35) 10*3/uL Sodium 136 L (137-145) mmol/L Potassium 3.0 L (3.5-5.1) mmol/L Glucose 221 H (74-99) mg/dL POC Glucose (mg/dL) 307 H (70-110) mg/dL Calcium 7.3 L (8.4-10.2) mg/dL Magnesium (1.6-2.3) mg/dL Total Protein (6.3-8.2) g/dL Albumin (3.5-5.0) g/dL 08/06/24 08/06/24 08/06/24 Range/Units 19:52 21:44 22:26 WBC (4.50-10.00) 10*3/uL RBC (4.10-5.20) 10*6/uL Hgb (12.0-15.0) g/dL Hct (37.2-46.3) % Immature Gran # (0.00-0.04) 10*3/uL Neutrophils # (1.80-7.70) 10*3/uL Eosinophils # (0.04-0.35) 10*3/uL Sodium (137-145) mmol/L Potassium (3.5-5.1) mmol/L Glucose (74-99) mg/dL POC Glucose (mg/dL) 283 H 281 H 301 H (70-110) mg/dL Calcium (8.4-10.2) mg/dL Magnesium (1.6-2.3) mg/dL Total Protein (6.3-8.2) g/dL Albumin (3.5-5.0) g/dL 08/06/24 08/06/24 08/07/24 Range/Units 22:50 22:50 04:05 WBC 17.16 H 12.38 H (4.50-10.00) 10*3/uL RBC 3.66 L 3.31 L (4.10-5.20) 10*6/uL Hgb 10.1 L 9.0 L (12.0-15.0) g/dL Hct 30.4 L 27.9 L (37.2-46.3) % Immature Gran # 0.09 H (0.00-0.04) 10*3/uL Neutrophils # 10.40 H (1.80-7.70) 10*3/uL Eosinophils # 0.00 L (0.04-0.35) 10*3/uL Sodium 135 L (137-145) mmol/L Potassium 3.3 L (3.5-5.1) mmol/L Glucose 252 H (74-99) mg/dL POC Glucose (mg/dL) (70-110) mg/dL Calcium 7.3 L (8.4-10.2) mg/dL Magnesium (1.6-2.3) mg/dL Total Protein 4.9 L (6.3-8.2) g/dL Albumin 2.4 L (3.5-5.0) g/dL 08/07/24 08/07/24 08/07/24 Range/Units 04:05 04:05 06:26 WBC (4.50-10.00) 10*3/uL RBC (4.10-5.20) 10*6/uL Hgb (12.0-15.0) g/dL Hct (37.2-46.3) % Immature Gran # (0.00-0.04) 10*3/uL Neutrophils # (1.80-7.70) 10*3/uL Eosinophils # (0.04-0.35) 10*3/uL Sodium 134 L (137-145) mmol/L Potassium (3.5-5.1) mmol/L Glucose 312 H (74-99) mg/dL POC Glucose (mg/dL) 351 H (70-110) mg/dL Calcium 7.0 L (8.4-10.2) mg/dL Magnesium 1.3 L (1.6-2.3) mg/dL Total Protein 4.5 L (6.3-8.2) g/dL Albumin 2.2 L (3.5-5.0) g/dL 08/07/24 Range/Units 11:31 WBC (4.50-10.00) 10*3/uL RBC (4.10-5.20) 10*6/uL Hgb (12.0-15.0) g/dL Hct (37.2-46.3) % Immature Gran # (0.00-0.04) 10*3/uL Neutrophils # (1.80-7.70) 10*3/uL Eosinophils # (0.04-0.35) 10*3/uL Sodium (137-145) mmol/L Potassium (3.5-5.1) mmol/L Glucose (74-99) mg/dL POC Glucose (mg/dL) 297 H (70-110) mg/dL Calcium (8.4-10.2) mg/dL Magnesium (1.6-2.3) mg/dL Total Protein (6.3-8.2) g/dL Albumin (3.5-5.0) g/dL Microbiology - Last 24 Hours (Table) 08/04/24 02:13 Blood Culture - Preliminary Blood Assessment and Plan Assessment: Acute hypoxemic respiratory failure, secondary to pneumonia. Acute supraventricular tachycardia. Hypotension, consider sepsis/septic shock. Acute febrile illness. Acute leukocytosis. Urinary retention. Acute kidney injury. Elevated troponins rule out non-ST elevation VT. History of hypertension. History of hyperlipidemia. Diabetes mellitus type 2, uncontrolled. History of coronary artery disease with previous PCI/stents. History of peripheral vascular disease. History of left foot transmetatarsal amputation. History of right 4th and 5th toe amputation on the right. History of nondisplaced oblique fracture of the left greater trochanter. Currently undergoing tobacco dependence. Plan: Plan dated August 06, 2024. 63-year-old female seen today in room 372. The patient is much more stable. She is on saline at 75 cc an hour. She is on 2 L nasal cannula. She continues on antibiotics. Labs, x-rays, and all medications are reviewed. We will continue to follow the patient, make recommendations were appropriate. The patient continues on Levaquin, and Zosyn. Prognosis is certainly guarded. We will continue to follow. Dictation was produced using [employer] software. Please excuse any grammatical, word or spelling errors. Plan dated August 07, 2024. The patient developed SVT, last night, about 11 PM, and the patient was transferred to the intensive care unit. The patient is currently seen in room 261. She is on 3 L nasal cannula. In addition, the patient is on saline at 75 cc an hour, and amiodarone at 0.5 mg/min. The patient was on BiPAP, for about 6 hours, from 11 PM to 5 AM, with settings of 14/6, and 40%. Currently, on 3 L as mentioned above. All labs, x-rays, and medications are reviewed. We will continue to follow the patient, make recommendations. Overall prognosis remains guarded. Dictation was produced using [employer] dictation software. Please excuse any grammatical, word or spelling errors. Time with Patient: Greater than 30
[2024-08-07] MEDS: SENNOSIDES 8.6 MG TAB PO SCH (13:54)
--- NOTE | 2024-08-07 14:16 | XR ---
EXAMINATION TYPE: XR abdomen 1V DATE OF EXAM: 08/07/2024 2:08 PM COMPARISON: 07/28/2024 CLINICAL INDICATION: Female, 63 years old with history of abd distention, recent ileus, TECHNIQUE: XR abdomen 1V view(s) obtained. FINDINGS: Stomach appears distended. Normal bowel gas appears to be within the colon. No distended small bowel loops evident. Air volume is diminished from the comparison. No mass effect is evident. Psoas margins are normal. No organomegaly is present. Osseous structures are unremarkable. There is some fixation of the lumbosacral junction IMPRESSION: 1. No suspicious changes to suggest ileus. There is improvement of the bowel gas from comparison [facility], , 08/07/2024 2:13 PM
--- NOTE | 2024-08-07 15:29 | PN ---
PROGRESS NOTE DATE OF SERVICE: 08/07/2024 SUBJECTIVE: This is a 63-year-old woman who was admitted with bilateral multifocal pneumonia, had SVT yesterday. The patient did not respond even after multiple doses of adenosine. The patient was transferred to ICU. The patient is currently on amiodarone and the heart rate is better. The patient is being closely monitored at this time. The most recent chest x-ray, which I reviewed personally showed bilateral pneumonia, probably improving mildly. PAST MEDICAL HISTORY: Reviewed. REVIEW OF SYSTEMS: A 14-point review of systems negative except as mentioned earlier. CURRENT MEDICATIONS: Reviewed. PHYSICAL EXAMINATION: VITAL SIGNS: Pulse 83, blood pressure 96/62, and respirations 23. HEENT: Conjunctivae normal. NECK: No JVD. CARDIOVASCULAR: S1 and S2. RESPIRATIONS: Decreased breath sounds at the bases. A few scattered rhonchi. ABDOMEN: Soft. LEGS: No edema. NERVOUS SYSTEM: Nonfocal. LABORATORY DATA: Today's WBC count 12.38, sodium 134, and glucose 351. Urine culture showed Chrissy albicans. ASSESSMENT: 1. Acute bilateral multifocal pneumonia possibly hospital-acquired with severe sepsis and septic shock, present on admission. 2. Supraventricular tachycardia, recalcitrant on amiodarone. 3. Change in mental status, acute metabolic encephalopathy. 4. Diabetes mellitus, type 2, uncontrolled with hyperglycemia. The troponin elevated up to 0.376, undetermined origin. 5. Candidal urinary tract infection. 6. Elevated WBC. 7. History of recent ileus. 8. History of recent urinary tract infection. 9. Right heel ulcer. 10.History of myocardial infarction and coronary artery disease. 11.Hypertension. 12.History of multiple complex medical issues. 13.Constipation. 14.Fungal urinary tract infection. RECOMMENDATIONS: Recommend to continue current management and continue symptomatic treatment. Continue with empiric antibiotics. Continue with bronchodilators. Continue with amiodarone drip and p.o. and closely follow with multiple consultants. Repeat labs. Monitor lytes closely. Guarded prognosis, because of multiple complex medical issues. Further recommendations to follow. See orders for further details. Chest x-ray was reviewed. MMODL / IJN: [id number] /
[2024-08-07 17:14] LABS: Glucose,Whole Blood 263 mg/dL (70-110)
[2024-08-07] MEDS: HYDROcodone/APAP 5-325MG 1 EACH TAB PO PRN (19:43)
[2024-08-07 20:12] LABS: Glucose,Whole Blood 292 mg/dL (70-110)
--- NOTE | 2024-08-07 22:21 | P.PN ---
Subjective Progress Note Date: 08/06/24 Principal diagnosis: Reason for follow-up is fever/pneumonia Patient is a 63-year-old female with a past medical history significant for diabetes mellitus reflux hypertension hyperlipidemia AR CVA TIA previous patient noted to have history of recurrent UTI recently discharged from this hospital after receiving treatment for UTI cystitis has been brought back to the hospital concerning for generalized weakness along with mental status changes and low oxygen patient did have a low-grade fever chest x-ray with multifocal airspace opacity probably this consultation. On today's evaluation that is 08/06/2024,the patient did have resolution of her fever and is afebrile this morning patient is still requiring 3 L nasal cannula oxygen his complaining of shortness of breath he did have a cough but not bringing up any sputum no abdominal pain and no diarrhea has been reported. Patient O2 sat was stable white count is up to 17.16 creatinine 0.64 Objective - Vital Signs Vital signs: Vital Signs Temp 98.3 F 08/06/24 11:20 Pulse 102 H 08/06/24 15:58 Resp 16 08/06/24 11:20 BP 124/77 08/06/24 11:20 Pulse Ox 97 08/06/24 11:20 FiO2 40 08/05/24 17:31 Intake & Output 08/05/24 08/06/24 08/06/24 18:59 06:59 18:59 Intake Total 480 Output Total 1275 4215 750 Balance -1275 -4215 -270 Weight 54.5 kg 63.5 kg Intake: Oral 480 Output: Urine 1275 4215 750 Other: Voiding Method Indwelling Catheter Indwelling Catheter Indwelling Catheter # Bowel Movements 2 - Exam GENERAL DESCRIPTION: Middle-age female lying in bed in no distress RESPIRATORY SYSTEM: Unlabored breathing , decreased breath sounds at bases HEART: S1 S2 regular rate and rhythm , ABDOMEN: Soft , no tenderness EXTREMITIES: No edema feet - Labs CBC & Chem 7: 08/07/24 04:05 08/07/24 07:44 Labs: Abnormal Lab Results - Last 24 Hours (Table) 08/05/24 08/05/24 08/06/24 Range/Units 16:47 20:17 05:59 RBC (4.10-5.20) 10*6/uL Hgb (12.0-15.0) g/dL Hct (37.2-46.3) % Immature Gran # (0.00-0.04) 10*3/uL Eosinophils # (0.04-0.35) 10*3/uL Sodium (137-145) mmol/L Potassium (3.5-5.1) mmol/L Glucose (74-99) mg/dL POC Glucose (mg/dL) 183 H 303 H 186 H (70-110) mg/dL Calcium (8.4-10.2) mg/dL 08/06/24 08/06/24 08/06/24 Range/Units 11:38 14:38 14:38 RBC 3.14 L (4.10-5.20) 10*6/uL Hgb 8.7 L (12.0-15.0) g/dL Hct 26.3 L (37.2-46.3) % Immature Gran # 0.05 H (0.00-0.04) 10*3/uL Eosinophils # 0.01 L (0.04-0.35) 10*3/uL Sodium 136 L (137-145) mmol/L Potassium 3.0 L (3.5-5.1) mmol/L Glucose 221 H (74-99) mg/dL POC Glucose (mg/dL) 201 H (70-110) mg/dL Calcium 7.3 L (8.4-10.2) mg/dL Microbiology - Last 24 Hours (Table) 08/04/24 02:13 Blood Culture - Preliminary Blood Assessment and Plan (1) Pneumonia Current Visit: Yes Status: Acute Code(s): J18.9 - PNEUMONIA, UNSPECIFIED ORGANISM SNOMED Code(s): 785762018 (2) Sepsis Current Visit: Yes Status: Acute Code(s): A41.9 - SEPSIS, UNSPECIFIED ORGANISM SNOMED Code(s): 80162330 (3) Pressure ulcer, heel, right, unstageable Current Visit: No Status: Acute Code(s): L89.610 - PRESSURE ULCER OF RIGHT HEEL, UNSTAGEABLE SNOMED Code(s): 31033140448688537 Plan: 1patient presented to the hospital with sepsis in this patient who did have a fever tachycardia elevated white count meeting criteria for SIRS/sepsis with evidence of diffuse multifocal airspace opacities will need to cover for the resistant gram-negative with the likely pathogen as the patient was recently discharged from this facility and exposed to antibiotics 2blood culture remains to be pending sputum has already been collected 3keep bilateral heel area of the pressure to prevent any worsening of the bilateral heel pressure ulcer 4-patient did have resolution of the fever however white count slightly up to monitor closely continue with Zosyn and Levaquin while waiting for the workup to be completed Dictation was produced using [employer] dictation software. please excuse any grammatical, word or spelling errors. Time with Patient: Less than 30
--- NOTE | 2024-08-07 22:22 | P.PN ---
Subjective Progress Note Date: 08/07/24 Principal diagnosis: Reason for follow-up is fever/pneumonia Patient is a 63-year-old female with a past medical history significant for diabetes mellitus reflux hypertension hyperlipidemia [place] CVA TIA previous patient noted to have history of recurrent UTI recently discharged from this hospital after receiving treatment for UTI cystitis has been brought back to the hospital concerning for generalized weakness along with mental status changes and low oxygen patient did have a low-grade fever chest x-ray with multifocal airspace opacity probably this consultation. On today's evaluation that is 08/07/2024,the patient did have low-grade fever of 100.3 last night however patient is afebrile this morning, patient did have worsening respiratory distress requiring transfer to the ICU however is currently on 3 L current oxygen P denies having chest pain worsening cough or sputum production no abdominal pain no diarrhea Patient white count is down to 12.38 creatinine 0.63 urine is growing Chrissy albicans blood cultures are pending Objective - Vital Signs Vital signs: Vital Signs Temp 97.8 F 08/07/24 08:00 Pulse 82 08/07/24 13:00 Resp 22 08/07/24 13:00 BP 105/90 08/07/24 13:00 Pulse Ox 100 08/07/24 13:00 FiO2 40 08/07/24 08:11 Intake & Output 08/06/24 08/07/24 08/07/24 18:59 06:59 18:59 Intake Total 600 1600 930 Output Total 1200 530 315 Balance -600 1070 615 Weight 63.5 kg Intake: Intake, IV Titration 1600 450 Amount Piperacillin-Tazobactam 3 100 .375 gm In Sodium Chloride 0.9% 100 ml @ 25 mls/hr IVPB Q8H [facility] Rx#: [id number] Potassium Chloride 10 meq 400 In Water For Injection 1 100ml.bag @ 100 mls/hr IVPB Q1HR [facility] Rx#: [id number] Sodium Chloride 0.9% 1, 600 450 000 ml @ 75 mls/hr IV . [id number] [facility] Rx#:[id number] Sodium Chloride 0.9% 500 500 ml 500 ml @ 999 mls/hr IV .Q31M ONE Rx#:[id number] Oral 600 480 Output: Urine 1200 530 315 Other: Voiding Method Indwelling Catheter Indwelling Catheter Indwelling Catheter # Bowel Movements 1 - Exam GENERAL DESCRIPTION: Middle-age female lying in bed in no distress RESPIRATORY SYSTEM: Unlabored breathing , decreased breath sounds at bases HEART: S1 S2 regular rate and rhythm , ABDOMEN: Soft , no tenderness EXTREMITIES: No edema feet - Labs CBC & Chem 7: 08/07/24 04:05 08/07/24 07:44 Labs: Abnormal Lab Results - Last 24 Hours (Table) 08/06/24 08/06/24 08/06/24 Range/Units 14:38 14:38 16:37 WBC (4.50-10.00) 10*3/uL RBC 3.14 L (4.10-5.20) 10*6/uL Hgb 8.7 L (12.0-15.0) g/dL Hct 26.3 L (37.2-46.3) % Immature Gran # 0.05 H (0.00-0.04) 10*3/uL Neutrophils # (1.80-7.70) 10*3/uL Eosinophils # 0.01 L (0.04-0.35) 10*3/uL Sodium 136 L (137-145) mmol/L Potassium 3.0 L (3.5-5.1) mmol/L Glucose 221 H (74-99) mg/dL POC Glucose (mg/dL) 307 H (70-110) mg/dL Calcium 7.3 L (8.4-10.2) mg/dL Magnesium (1.6-2.3) mg/dL Total Protein (6.3-8.2) g/dL Albumin (3.5-5.0) g/dL 08/06/24 08/06/24 08/06/24 Range/Units 19:52 21:44 22:26 WBC (4.50-10.00) 10*3/uL RBC (4.10-5.20) 10*6/uL Hgb (12.0-15.0) g/dL Hct (37.2-46.3) % Immature Gran # (0.00-0.04) 10*3/uL Neutrophils # (1.80-7.70) 10*3/uL Eosinophils # (0.04-0.35) 10*3/uL Sodium (137-145) mmol/L Potassium (3.5-5.1) mmol/L Glucose (74-99) mg/dL POC Glucose (mg/dL) 283 H 281 H 301 H (70-110) mg/dL Calcium (8.4-10.2) mg/dL Magnesium (1.6-2.3) mg/dL Total Protein (6.3-8.2) g/dL Albumin (3.5-5.0) g/dL 08/06/24 08/06/24 08/07/24 Range/Units 22:50 22:50 04:05 WBC 17.16 H 12.38 H (4.50-10.00) 10*3/uL RBC 3.66 L 3.31 L (4.10-5.20) 10*6/uL Hgb 10.1 L 9.0 L (12.0-15.0) g/dL Hct 30.4 L 27.9 L (37.2-46.3) % Immature Gran # 0.09 H (0.00-0.04) 10*3/uL Neutrophils # 10.40 H (1.80-7.70) 10*3/uL Eosinophils # 0.00 L (0.04-0.35) 10*3/uL Sodium 135 L (137-145) mmol/L Potassium 3.3 L (3.5-5.1) mmol/L Glucose 252 H (74-99) mg/dL POC Glucose (mg/dL) (70-110) mg/dL Calcium 7.3 L (8.4-10.2) mg/dL Magnesium (1.6-2.3) mg/dL Total Protein 4.9 L (6.3-8.2) g/dL Albumin 2.4 L (3.5-5.0) g/dL 08/07/24 08/07/24 08/07/24 Range/Units 04:05 04:05 06:26 WBC (4.50-10.00) 10*3/uL RBC (4.10-5.20) 10*6/uL Hgb (12.0-15.0) g/dL Hct (37.2-46.3) % Immature Gran # (0.00-0.04) 10*3/uL Neutrophils # (1.80-7.70) 10*3/uL Eosinophils # (0.04-0.35) 10*3/uL Sodium 134 L (137-145) mmol/L Potassium (3.5-5.1) mmol/L Glucose 312 H (74-99) mg/dL POC Glucose (mg/dL) 351 H (70-110) mg/dL Calcium 7.0 L (8.4-10.2) mg/dL Magnesium 1.3 L (1.6-2.3) mg/dL Total Protein 4.5 L (6.3-8.2) g/dL Albumin 2.2 L (3.5-5.0) g/dL 08/07/24 Range/Units 11:31 WBC (4.50-10.00) 10*3/uL RBC (4.10-5.20) 10*6/uL Hgb (12.0-15.0) g/dL Hct (37.2-46.3) % Immature Gran # (0.00-0.04) 10*3/uL Neutrophils # (1.80-7.70) 10*3/uL Eosinophils # (0.04-0.35) 10*3/uL Sodium (137-145) mmol/L Potassium (3.5-5.1) mmol/L Glucose (74-99) mg/dL POC Glucose (mg/dL) 297 H (70-110) mg/dL Calcium (8.4-10.2) mg/dL Magnesium (1.6-2.3) mg/dL Total Protein (6.3-8.2) g/dL Albumin (3.5-5.0) g/dL Microbiology - Last 24 Hours (Table) 08/04/24 02:13 Blood Culture - Preliminary Blood Assessment and Plan (1) Pneumonia Current Visit: Yes Status: Acute Code(s): J18.9 - PNEUMONIA, UNSPECIFIED ORGANISM SNOMED Code(s): 992610588 (2) Sepsis Current Visit: Yes Status: Acute Code(s): A41.9 - SEPSIS, UNSPECIFIED ORGANISM SNOMED Code(s): 79126110 (3) Pressure ulcer, heel, right, unstageable Current Visit: No Status: Acute Code(s): L89.610 - PRESSURE ULCER OF RIGHT HEEL, UNSTAGEABLE SNOMED Code(s): 06422904084377392 Plan: 1patient presented to the hospital with sepsis in this patient who did have a fever tachycardia elevated white count meeting criteria for SIRS/sepsis with evidence of diffuse multifocal airspace opacities will need to cover for the resistant gram-negative with the likely pathogen as the patient was recently discharged from this facility and exposed to antibiotics 2blood culture remains to be pending sputum has already been collected 3keep bilateral heel area of the pressure to prevent any worsening of the bilateral heel pressure ulcer 4-patient did have low-grade fever last night, the white count is trending down. 5patient continue with Zosyn and Levaquin while waiting for the culture to finalize Dictation was produced using [employer] dictation software. please excuse any grammatical, word or spelling errors. Time with Patient: Less than 30
[2024-08-08 06:07] LABS: Glucose,Whole Blood 143 mg/dL (70-110)
[2024-08-08 06:10] LABS: Basophils # (A) 0.02 10*3/uL (0.00-0.10); Basophils % (A) 0.2 %; Eosinophils # (A) 0.09 10*3/uL (0.04-0.35); Eosinophils % (A) 0.9 %; HCT 26.5 % (37.2-46.3); HGB 8.5 g/dL (12.0-15.0); Lymphocytes # (A) 1.72 10*3/uL (0.90-5.00); Lymphocytes % (A) 17.2 %; MCH 27.2 pg (27.0-32.0); MCHC 32.1 g/dL (32.0-37.0); MCV 84.7 fL (80.0-97.0); Monocytes # (A) 0.73 10*3/uL (0.20-1.00); Monocytes % (A) 7.3 %; Neutrophils # (A) 7.40 10*3/uL (1.80-7.70); Neutrophils % (A) 73.9 %; Platelet Count 294 10*3/uL (140-440); RBC 3.13 10*6/uL (4.10-5.20); RDW 14.4 % (11.5-14.5); WBC 10.01 10*3/uL (4.50-10.00)
[2024-08-08 06:25] LABS: ALT 11 U/L (4-34); AST 19 U/L (14-36); African American GFR (CKD) >90 (>60 ml/min/1.73 sqM); Albumin 2.1 g/dL (3.5-5.0); Alkaline Phosphatase 47 U/L (38-126); Anion Gap 5 mmol/L; Blood Urea Nitrogen 11 mg/dL (7-17); Calcium 7.0 mg/dL (8.4-10.2); Carbon Dioxide 27 mmol/L (22-30); Chloride 103 mmol/L (98-107); Glucose 130 mg/dL (74-99); Magnesium 1.3 mg/dL (1.6-2.3); Non-African American GFR(CKD) >90 (>60 ml/min/1.73 sqM); Potassium 3.9 mmol/L (3.5-5.1); Sodium 135 mmol/L (137-145); Total Protein 4.5 g/dL (6.3-8.2)
[2024-08-08] MEDS: POTASSIUM CHLORIDE ER 20 MEQ TAB.ER PO SCH (06:40)
[2024-08-08] MEDS: MAGNESIUM SULFATE-D5W PMX 1 GM in DEXTROSE/WATER 1 100ML.BAG IVPB SCH (07:47)
--- NOTE | 2024-08-08 08:54 | XR ---
EXAMINATION TYPE: XR chest 1V portable DATE OF EXAM: 08/08/2024 5:48 AM COMPARISON: 08/07/2024 CLINICAL INDICATION: Female, 63 years old with history of pneumonia, TECHNIQUE: XR chest 1V portable views of the chest are obtained. FINDINGS: Demonstrated are scattered senescent parenchymal change. Cardiomegaly with pulmonary venous congestion and bilateral pleural effusions progressive in nature. Hilar and mediastinal structures are within normal limits. Degenerative changes are seen of the dorsal spine. IMPRESSION: 1. Cardiomegaly with pulmonary venous congestion and bilateral pleural effusions progressive in natu re. [facility], , 08/08/2024 8:52 AM
[2024-08-08 11:37] LABS: Glucose,Whole Blood 150 mg/dL (70-110)
--- NOTE | 2024-08-08 12:08 | P.PN ---
Subjective Progress Note Date: 08/08/24 Principal diagnosis: Sepsis. Patient is a 63 female with past medical history significant for hypertension, hyperlipidemia, diabetes mellitus type 2, coronary disease with previous PCI/stents, peripheral vascular disease, left foot metatarsal amputation as well as right fourth-fifth toe amputation. Of note, patient recently hospitalized May, with left hip fracture. CT of the left hip showing a nondisplaced oblique fracture through the superior corner of the left greater trochanter. Did return to the hospital 07/22/2024 with abdominal pain. Thought to possible have a urinary tract infection. Abdominal/pelvis CT remarkable for bilateral hydronephrosis, right greater than left, bladder wall thickening, and small bowel ileus. Incidental findings of bilateral pleural effusions and compressive atelectasis. Patient was discharged on 08/01/2024. Patient returns to the emergency department 2 days later complaining of increased weakness, fevers, and shortness of breath. She was placed on BiPAP initially in the ED. She was also noted to be hypotensive and has been fluid resuscitated with a total of 3 L of crystalloid fluid so far. Febrile with a temperature of 100.3 F. Workup including a chest x-ray showing multifocal airspace opacities concerning for pn eumonia. Denies any coughing, sputum production, hemoptysis, chest pain. Denies any history of heart failure. Denies any lower extremity edema. Denies any she denies any dysuria, frequency, hematuria, suprapubic pain or flank pain. She is retaining urine and a bedside bladder scan showed 850 cc of urine in the bladder. Labs including a CBC with a WBC count of 19.4, hemoglobin 13, platelets 681. CMP: Sodium 131, potassium 4.3, chloride 100, serum bicarb 18, BUN 22, creatinine 1.36, glucose 389. Lactic was 2.7 is down to 2.5. LFTs not elevated. Troponin was 0.376. NT proBNP significantly elevated at 12,900. Patient currently being evaluated in the emergency department. She is on BiPAP with settings 14/6 and FiO2 40%. SpO2 reading 100% on bedside monitor. She does not appear to be any respiratory distress. Talking complete sentences. No accessory muscle use. She was easily transitioned to nasal cannula. Blood pressure currently 100/66 mmHg. She was empirically placed on a combination of Levaquin and Zosyn in the ED. Currently afebrile. The patient is seen today August 05, 2024 in follow-up on the selective care unit. She is currently resting in bed. Awake and alert in no acute distress. Maintaining O2 saturations in the 90s on 3 L/min per nasal cannula. She is afebrile. Hemodynamically stable. Chest x-ray reveals increased diffuse lung markings bilaterally. Urine culture positive for Chrissy. Blood culture pending. White count 9.7. Hemoglobin 8.8. Platelets 427. Sodium 140. Potassium 3.6. Bicarb 19. BUN 18. Creatinine 1.14. Glucose 189. Pr ocalcitonin 21.6. She remains on DuoNeb inhalations, antibiotics in the form of Zosyn and Levaquin. Initiated on Diflucan. Heparin for DVT prophylaxis. Progress note dated August 06, 2024. The patient is seen today in room 372. She is currently resting in bed. She is awake and alert. No acute distress. The patient continues on 2 L nasal O2. She is getting saline at 75 cc an hour. She is hemodynamically stable. No new labs today other than a glucose of 201. Urine was positive for Chrissy. No new x-ray to report. The patient continues on fluconazole, Levaquin, and Zosyn. Progress note dated August 07, 2024. 63-year-old female who was transferred to the intensive care unit, at about 11 PM last night. She came in because of supraventricular tachycardia. She was moved over by my nurse practitioner. She is seen today in room 261. She is on 3 L nasal O2. She is getting saline at 75 cc an hour, and amiodarone 0.5 mg/min. She came into the intensive care unit, at 11 PM. She has been on BiPAP, at 14/6, 40%, for 6 hours. Current labs include a white count of 12.4, hemoglobin 9, hematocrit 27.9, platelet count 331,000. Sodium 134, potassium 3.7, chloride 102, CO2 23, anion gap 9, BUN 12, creatinine 0.63. Glucose 297. Calcium 7. Magnesium 1.3. Albumin 2.2. Urine culture was positive for Chrissy albicans. Chest x-ray shows an improved right lower lobe infiltrate, and possible mild fluid overload. Progress note dated August 16, 2024. 63-year-old female seen today in room 261. She is currently on 3 L of oxygen. She is getting saline at 75 cc an hour. Yesterday she was on IV amiodarone. Now she is on p.o. amiodarone. Clinically, she is doing well. Her major complaint is pain. She is also having some issues with insomnia. Anyway, I mention to her that she should talk to her hospital doctor about those 2 issues. Current labs include a white count of 10.0, hemoglobin 8.5, hematocrit 26.5, platelet count of 2 94,000. Sodium 135, potassium 3.9, chlorides 103, CO2 27, BUN 11, creatinine 0.71. Glucose is 150. Calcium is 7. Albumin is 2.1. Chest x-ray shows cardiomegaly, with pulmonary venous congestion. Objective - Vital Signs Vital signs: Vital Signs Temp 98.2 F 08/08/24 08:00 Pulse 86 08/08/24 09:00 Resp 20 08/08/24 09:00 BP 100/68 08/08/24 09:00 Pulse Ox 99 08/08/24 09:00 FiO2 40 08/07/24 08:11 Intake & Output 08/07/24 08/08/24 08/08/24 18:59 06:59 18:59 Intake Total 1885 1300 680 Output Total 540 825 120 Balance 1345 475 560 Weight 63.5 kg 83.8 kg Intake: IV 100 400 200 Levofloxacin 750Mg-D5w 200 Pmx 750 mg In Dextrose/ Water 1 150ml.bag @ 100 mls/hr IVPB Q24H [facility] Rx#: [id number] Magnesium Sulfate-D5w Pmx 200 1 gm In Dextrose/Water 1 100ml.bag @ 100 mls/hr IVPB Q1H [facility] Rx#: [id number] Piperacillin-Tazobactam 3 100 200 .375 gm In Sodium Chloride 0.9% 100 ml @ 25 mls/hr IVPB Q8H [facility] Rx#: [id number] Intake, IV Titration 825 900 Amount Sodium Chloride 0.9% 1, 825 900 000 ml @ 75 mls/hr IV . [id number] [facility] Rx#:[id number] Oral 960 480 Output: Urine 540 825 120 Other: Voiding Method Indwelling Catheter Indwelling Catheter Indwelling Catheter # Bowel Movements 1 - Exam No acute distress, oriented 3. Patient continues on 3 L nasal cannula. HEENT examination is grossly unremarkable. Mucous membranes are moist. No oral lesions. Neck supple. Full range of motion. No adenopathy thyromegaly or neck vein distention. Cardiovascular examination reveals regular rhythm rate. S1-S2 normal. No S3 or S4. No discernible murmur noted. Lungs reveal clear breath sounds. Breath sounds are equal bilaterally. No adventitious lung sounds including wheezes rhonchi or crackles. Abdomen soft bowel sounds are heard. No masses or tenderness. Extremities are intact. No cyanosis clubbing or edema. Toe amputations noted. Skin is without rash or lesion. Neurologic examination is brief but nonfocal. - Labs CBC & Chem 7: 08/08/24 05:37 08/08/24 05:37 Labs: Abnormal Lab Results - Last 24 Hours (Table) 08/07/24 08/07/24 08/08/24 Range/Units 17:13 20:11 05:37 WBC 10.01 H (4.50-10.00) 10*3/uL RBC 3.13 L (4.10-5.20) 10*6/uL Hgb 8.5 L (12.0-15.0) g/dL Hct 26.5 L (37.2-46.3) % Immature Gran # 0.05 H (0.00-0.04) 10*3/uL Sodium (137-145) mmol/L Glucose (74-99) mg/dL POC Glucose (mg/dL) 263 H 292 H (70-110) mg/dL Calcium (8.4-10.2) mg/dL Magnesium (1.6-2.3) mg/dL Total Protein (6.3-8.2) g/dL Albumin (3.5-5.0) g/dL 08/08/24 08/08/24 08/08/24 Range/Units 05:37 06:06 11:36 WBC (4.50-10.00) 10*3/uL RBC (4.10-5.20) 10*6/uL Hgb (12.0-15.0) g/dL Hct (37.2-46.3) % Immature Gran # (0.00-0.04) 10*3/uL Sodium 135 L (137-145) mmol/L Glucose 130 H (74-99) mg/dL POC Glucose (mg/dL) 143 H 150 H (70-110) mg/dL Calcium 7.0 L (8.4-10.2) mg/dL Magnesium 1.3 L (1.6-2.3) mg/dL Total Protein 4.5 L (6.3-8.2) g/dL Albumin 2.1 L (3.5-5.0) g/dL Microbiology - Last 24 Hours (Table) 08/04/24 02:13 Blood Culture - Preliminary Blood Assessment and Plan Assessment: Acute hypoxemic respiratory failure, secondary to pneumonia. Acute supraventricular tachycardia. Hypotension, consider sepsis/septic shock. Acute febrile illness. Acute leukocytosis. Urinary retention. Acute kidney injury. Elevated troponins rule out non-ST elevation [place]. History of hypertension. History of hyperlipidemia. Diabetes mellitus type 2, uncontrolled. History of coronary artery disease with previous PCI/stents. History of peripheral vascular disease. History of left foot transmetatarsal amputation. History of right 4th and 5th toe amputation on the right. History of nondisplaced oblique fracture of the left greater trochanter. Currently undergoing tobacco dependence. Plan: Plan dated August 06, 2024. 63-year-old female seen today in room 372. The patient is much more stable. She is on saline at 75 cc an hour. She is on 2 L nasal cannula. She continues on antibiotics. Labs, x-rays, and all medications are reviewed. We will continue to follow the patient, make recommendations were appropriate. The patient continues on Levaquin, and Zosyn. Prognosis is certainly guarded. We will continue to follow. Dictation was produced using [employer] dictation software. Please excuse any grammatical, word or spelling errors. Plan dated August 07, 2024. The patient developed SVT, last night, about 11 PM, and the patient was transferred to the intensive care unit. The patient is currently seen in room 261. She is on 3 L nasal cannula. In addition, the patient is on saline at 75 cc an hour, and amiodarone at 0.5 mg/min. The patient was on BiPAP, for about 6 hours, from 11 PM to 5 AM, with settings of 14/6, and 40%. Currently, on 3 L as mentioned above. All labs, x-rays, and medications are reviewed. We will cont inue to follow the patient, make recommendations. Overall prognosis remains guarded. Dictation was produced using [employer] software. Please excuse any grammatical, word or spelling errors. Plan dated August 08, 2024. The patient is seen today in the intensive care unit, room 261. She had an uneventful night. The patient is currently on 3 L. She is getting saline 75 cc an hour. The IV amiodarone has been converted to p.o. amiodarone. All labs, x- rays, and medications are reviewed. The patient is stable and could be considered for possible discharge out to the cardiac floor. We will continue to follow. Prognosis is guarded. Dictation was produced using [employer] software. Please excuse any grammatical, word or spelling errors. Time with Patient: Less than 30
--- NOTE | 2024-08-08 13:36 | PN ---
PROGRESS NOTE DATE OF SERVICE: 08/07/2024 FOLLOWUP NOTE SUBJECTIVE: The patient is a 63-year-old lady who remains in ICU with complex and multiple medical problems known coronary artery disease status post prior stenting, peripheral arterial disease , and pneumonia. Most recent she is on oral amiodarone, remains in sinus rhythm, complains of . PHYSICAL EXAMINATION: VITAL SIGNS: respiratory rate is 18, O2 saturation is 99%. CHEST: Reveals diminished air entry with occasional rhonchi. HEART: Exam reveals first and second heart sounds. No gallop. ABDOMEN: Soft. EXTREMITIES: Examination of the extremities reveal mild edema. Peripheral pulses are felt. LABORATORY DATA: Labs show a hemoglobin of 8.5. Potassium is 3.9, creatinine is 0.7. ASSESSMENT: Paroxysmal SVT, hypertension, pneumonia. PLAN: I will continue with the amiodarone. MMODL / IJN: [id number] /
--- NOTE | 2024-08-08 15:20 | P.PN ---
Subjective Progress Note Date: 08/08/24 Principal diagnosis: Reason for follow-up is fever/pneumonia Patient is a 63-year-old female with a past medical history significant for diabetes mellitus reflux hypertension hyperlipidemia [place] CVA TIA previous patient noted to have history of recurrent UTI recently discharged from this hospital after receiving treatment for UTI cystitis has been brought back to the hospital concerning for generalized weakness along with mental status changes and low oxygen patient did have a low-grade fever chest x-ray with multifocal airspace opacity probably this consultation. On today's evaluation that is 08/08/2024, the patient continues to be afebrile, the patient is on 3 L nasal cannula oxygen and breathing comfortably, the Pt denies having any chest pain or worsening cough, the patient denies having any abdominal pain no vomiting or any diarrhea has been complaining about her pain medication being inadequate. Patient white count is down to 10.01, creatinine 0.71 urine for Legionella antigen negative blood cultures so far negative sputum not collected chest x-ray cardiomegaly pulm vascular congestion bilateral effusion progressive in nature Objective - Vital Signs Vital signs: Vital Signs Temp 98.2 F 08/08/24 08:00 Pulse 71 08/08/24 15:11 Resp 16 08/08/24 12:00 BP 114/75 08/08/24 12:00 Pulse Ox 93 L 08/08/24 12:00 FiO2 40 08/07/24 08:11 Intake & Output 08/07/24 08/08/24 08/08/24 18:59 06:59 18:59 Intake Total 1885 1300 980 Output Total 540 825 345 Balance 1345 475 635 Weight 63.5 kg 83.8 kg Intake: IV 100 400 400 Levofloxacin 750Mg-D5w 200 Pmx 750 mg In Dextrose/ Water 1 150ml.bag @ 100 mls/hr IVPB Q24H [facility] Rx#: [id number] Magnesium Sulfate-D5w Pmx 300 1 gm In Dextrose/Water 1 100ml.bag @ 100 mls/hr IVPB Q1H [facility] Rx#: [id number] Piperacillin-Tazobactam 3 100 200 100 .375 gm In Sodium Chloride 0.9% 100 ml @ 25 mls/hr IVPB Q8H [facility] Rx#: [id number] Intake, IV Titration 825 900 Amount Sodium Chloride 0.9% 1, 825 900 000 ml @ 75 mls/hr IV . [id number] [facility] Rx#:[id number] Oral 960 580 Output: Urine 540 825 345 Other: Voiding Method Indwelling Catheter Indwelling Catheter Indwelling Catheter # Bowel Movements 1 - Exam GENERAL DESCRIPTION: Middle-age female lying in bed in no distress RESPIRATORY SYSTEM: Unlabored breathing , decreased breath sounds at bases HEART: S1 S2 regular rate and rhythm , ABDOMEN: Soft , no tenderness EXTREMITIES: No edema feet - Labs CBC & Chem 7: 08/08/24 05:37 08/08/24 05:37 Labs: Abnormal Lab Results - Last 24 Hours (Table) 08/07/24 08/07/24 08/08/24 Range/Units 17:13 20:11 05:37 WBC 10.01 H (4.50-10.00) 10*3/uL RBC 3.13 L (4.10-5.20) 10*6/uL Hgb 8.5 L (12.0-15.0) g/dL Hct 26.5 L (37.2-46.3) % Immature Gran # 0.05 H (0.00-0.04) 10*3/uL Sodium (137-145) mmol/L Glucose (74-99) mg/dL POC Glucose (mg/dL) 263 H 292 H (70-110) mg/dL Calcium (8.4-10.2) mg/dL Magnesium (1.6-2.3) mg/dL Total Protein (6.3-8.2) g/dL Albumin (3.5-5.0) g/dL 08/08/24 08/08/24 08/08/24 Range/Units 05:37 06:06 11:36 WBC (4.50-10.00) 10*3/uL RBC (4.10-5.20) 10*6/uL Hgb (12.0-15.0) g/dL Hct (37.2-46.3) % Immature Gran # (0.00-0.04) 10*3/uL Sodium 135 L (137-145) mmol/L Glucose 130 H (74-99) mg/dL POC Glucose (mg/dL) 143 H 150 H (70-110) mg/dL Calcium 7.0 L (8.4-10.2) mg/dL Magnesium 1.3 L (1.6-2.3) mg/dL Total Protein 4.5 L (6.3-8.2) g/dL Albumin 2.1 L (3.5-5.0) g/dL Microbiology - Last 24 Hours (Table) 08/04/24 02:13 Blood Culture - Preliminary Blood Assessment and Plan (1) Pneumonia Current Visit: Yes Status: Acute Code(s): J18.9 - PNEUMONIA, UNSPECIFIED ORGANISM SNOMED Code(s): 067897780 (2) Sepsis Current Visit: Yes Status: Acute Code(s): A41.9 - SEPSIS, UNSPECIFIED O RGANISM SNOMED Code(s): 74494158 (3) Pressure ulcer, heel, right, unstageable Current Visit: No Status: Acute Code(s): L89.610 - PRESSURE ULCER OF RIGHT HEEL, UNSTAGEABLE SNOMED Code(s): 42456604639998978 Plan: 1patient presented to the hospital with sepsis in this patient who did have a fever tachycardia elevated white count meeting criteria for SIRS/sepsis with evidence of diffuse multifocal airspace opacities will need to cover for the resistant gram-negative with the likely pathogen as the patient was recently discharged from this facility and exposed to antibiotics 2blood culture remains to be pending sputum has already been collected 3keep bilateral heel area of the pressure to prevent any worsening of the bilateral heel pressure ulcer 4-patient did have resolution of the fever and white count almost normalized 5patient is currently being treated with Zosyn and Levaquin try to obtain a sputum and monitor clinical course closely Dictation was produced using [employer] dictation software. please excuse any grammatical, word or spelling errors. Time with Patient: Less than 30
[2024-08-08 16:18] LABS: Glucose,Whole Blood 210 mg/dL (70-110)
[2024-08-08 16:21] LABS: Glucose,Whole Blood 193 mg/dL (70-110)
--- NOTE | 2024-08-08 17:26 | P.PN ---
Subjective Progress Note Date: 08/08/24 63-year-old female with a past medical history significant for diabetes mellitus reflux hypertension hyperlipidemia NV CVA TIA previous patient noted to have history of recurrent UTI recently discharged from this hospital after receiving treatment for UTI cystitis has been brought back to the hospital concerning for generalized weakness along with mental status changes and low oxygen patient did have a low-grade fever chest x-ray with multifocal airspace opacity probably this consultation. 08/08/2024 --Patient is seen and evaluated in ICU; the patient continues to be afebrile, the patient is on 3 L nasal cannula oxygen and breathing comfortably, the Pt denies having any chest pain or worsening cough, the patient denies having any abdominal pain no vomiting or any diarrhea has been complaining about her pain medication being inadequate. Blood work reveals WBC of 10, hemoglobin of 8.5 and platelet count of 294, sodium 135, potassium 3.9, BUN/creatinine of 11/0.71 -- urine for Legionella antigen negative blood cultures so far negative sputum not collected - chest x-ray cardiomegaly pulm vascular congestion bilateral effusion progressive in nature Objective - Vital Signs Vital signs: Vital Signs Temp 98.2 F 08/08/24 08:00 Pulse 86 08/08/24 09:00 Resp 20 08/08/24 09:00 BP 100/68 08/08/24 09:00 Pulse Ox 99 08/08/24 09:00 FiO2 40 08/07/24 08:11 Intake & Output 08/07/24 08/08/24 08/08/24 18:59 06:59 18:59 Intake Total 1885 1300 680 Output Total 540 825 120 Balance 1345 475 560 Weight 63.5 kg 83.8 kg Intake: IV 100 400 200 Levofloxacin 750Mg-D5w 200 Pmx 750 mg In Dextrose/ Water 1 150ml.bag @ 100 mls/hr IVPB Q24H [facility] Rx#: [id number] Magnesium Sulfate-D5w Pmx 200 1 gm In Dextrose/Water 1 100ml.bag @ 100 mls/hr IVPB Q1H [facility] Rx#: [id number] Piperacillin-Tazobactam 3 100 200 .375 gm In Sodium Chloride 0.9% 100 ml @ 25 mls/hr IVPB Q8H [facility] Rx#: [id number] Intake, IV Titration 825 900 Amount Sodium Chloride 0.9% 1, 825 900 000 ml @ 75 mls/hr IV . [id number] [facility] Rx#:[id number] Oral 960 480 Output: Urine 540 825 120 Other: Voiding Method Indwelling Catheter Indwelling Catheter # Bowel Movements 1 - Exam No acute distress, oriented 3. Patient continues on 3 L nasal cannula. HEENT examination is grossly unremarkable. Mucous membranes are moist. No oral lesions. Neck supple. Full range of motion. No adenopathy thyromegaly or neck vein distention. Cardiovascular examination reveals regular rhythm rate. S1-S2 normal. No S3 or S4. No discernible murmur noted. Lungs reveal clear breath sounds. Breath sounds are equal bilaterally. No adventitious lung sounds including wheezes rhonchi or crackles. Abdomen soft bowel sounds are heard. No masses or tenderness. Extremities are intact. No cyanosis clubbing or edema. Toe amputations noted. Skin is without rash or lesion. Neurologic examination is brief but nonfocal. - Labs CBC & Chem 7: 08/08/24 05:37 08/08/24 05:37 Labs: Abnormal Lab Results - Last 24 Hours (Table) 08/07/24 08/07/24 08/07/24 Range/Units 11:31 17:13 20:11 WBC (4.50-10.00) 10*3/uL RBC (4.10-5.20) 10*6/uL Hgb (12.0-15.0) g/dL Hct (37.2-46.3) % Immature Gran # (0.00-0.04) 10*3/uL Sodium (137-145) mmol/L Glucose (74-99) mg/dL POC Glucose (mg/dL) 297 H 263 H 292 H (70-110) mg/dL Calcium (8.4-10.2) mg/dL Magnesium (1.6-2.3) mg/dL Total Protein (6.3-8.2) g/dL Albumin (3.5-5.0) g/dL 08/08/24 08/08/24 08/08/24 Range/Units 05:37 05:37 06:06 WBC 10.01 H (4.50-10.00) 10*3/uL RBC 3.13 L (4.10-5.20) 10*6/uL Hgb 8.5 L (12.0-15.0) g/dL Hct 26.5 L (37.2-46.3) % Immature Gran # 0.05 H (0.00-0.04) 10*3/uL Sodium 135 L (137-145) mmol/L Glucose 130 H (74-99) mg/dL POC Glucose (mg/dL) 143 H (70-110) mg/dL Calcium 7.0 L (8.4-10.2) mg/dL Magnesium 1.3 L (1.6-2.3) mg/dL Total Protein 4.5 L (6.3-8.2) g/dL Albumin 2.1 L (3.5-5.0) g/dL Microbiology - Last 24 Hours (Table) 08/04/24 02:13 Blood Culture - Preliminary Blood Assessment and Plan Assessment: 1. Acute hypoxemic respiratory failure, secondary to pneumonia -- Patient is currently on O2 per nasal cannula after initially being on BiPAP; we will continue to titrate or wean FiO2 keeping O2 saturation above 92% 2. Acute supraventricular tachycardia; patient initially treated with IV amiodarone; has been transition to oral amiodarone at this point; cardiology on board. 3. Hypotension, consider sepsis/septic shock/pneumonia -- Patient remains on IV antibiotics in the form of Levaquin and Zosyn - ID on board 3. Acute kidney injury; resolved. 4. Elevated troponins rule out non-ST elevation NV; cardiology has continued home cardiac medications; Imdur is added; recommending ischemia workup once patient has recovered from acute illness. 5. History of hypertension; currently being treated for hypotension related to septic shock. 6. History of hyperlipidemia; Lipitor 80 mg daily. 7. Diabetes mellitus type 2, uncontrolled; monitor Accu-Cheks before every meal and at bedtime with insulin sliding scale. 8. History of coronary artery disease with previous PCI/stents. 9. History of peripheral vascular disease; patient remains on Lipitor and Plavix. -- History of left foot transmetatarsal amputation. 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 DVT prophylaxis; SCDs/subcu heparin CODE STATUS; full code
[2024-08-08 20:05] LABS: Glucose,Whole Blood 155 mg/dL (70-110)
[2024-08-08] MEDS: MORPHINE SULFATE 2 MG/ML SYRINGE IVP PRN (23:57)
[2024-08-09 06:20] LABS: Glucose,Whole Blood 104 mg/dL (70-110)
[2024-08-09 07:06] LABS: Basophils # (A) 0.02 10*3/uL (0.00-0.10); Basophils % (A) 0.2 %; Eosinophils # (A) 0.11 10*3/uL (0.04-0.35); Eosinophils % (A) 1.0 %; HCT 27.6 % (37.2-46.3); HGB 8.9 g/dL (12.0-15.0); Lymphocytes # (A) 1.58 10*3/uL (0.90-5.00); Lymphocytes % (A) 14.5 %; MCH 27.6 pg (27.0-32.0); MCHC 32.2 g/dL (32.0-37.0); MCV 85.7 fL (80.0-97.0); Monocytes # (A) 0.93 10*3/uL (0.20-1.00); Monocytes % (A) 8.5 %; Neutrophils # (A) 8.19 10*3/uL (1.80-7.70); Neutrophils % (A) 74.9 %; Platelet Count 370 10*3/uL (140-440); RBC 3.22 10*6/uL (4.10-5.20); RDW 14.4 % (11.5-14.5); WBC 10.93 10*3/uL (4.50-10.00)
[2024-08-09 07:23] LABS: African American GFR (CKD) >90 (>60 ml/min/1.73 sqM); Anion Gap 5 mmol/L; Blood Urea Nitrogen 10 mg/dL (7-17); Calcium 7.4 mg/dL (8.4-10.2); Carbon Dioxide 26 mmol/L (22-30); Chloride 105 mmol/L (98-107); Glucose 83 mg/dL (74-99); Magnesium 1.8 mg/dL (1.6-2.3); Non-African American GFR(CKD) >90 (>60 ml/min/1.73 sqM); Potassium 4.3 mmol/L (3.5-5.1); Sodium 136 mmol/L (137-145)
[2024-08-09] MEDS: POTASSIUM CHLORIDE ER 20 MEQ TAB.ER PO SCH (09:07)
--- NOTE | 2024-08-09 10:58 | P.PN ---
Subjective Progress Note Date: 08/09/24 Principal diagnosis: Sepsis. Patient is a 63 female with past medical history significant for hypertension, hyperlipidemia, diabetes mellitus type 2, coronary disease with previous PCI/stents, peripheral vascular disease, left foot metatarsal amputation as well as right fourth-fifth toe amputation. Of note, patient recently hospitalized May, with left hip fracture. CT of the left hip showing a nondisplaced oblique fracture through the superior corner of the left greater trochanter. Did return to the hospital 07/22/2024 with abdominal pain. Thought to possible have a urinary tract infection. Abdominal/pelvis CT remarkable for bilateral hydronephrosis, right greater than left, bladder wall thickening, and small bowel ileus. Incidental findings of bilateral pleural effusions and compressive atelectasis. Patient was discharged on 08/01/2024. Patient returns to the emergency department 2 days later complaining of increased weakness, fevers, and shortness of breath. She was placed on BiPAP initially in the ED. She was also noted to be hypotensive and has been fluid resuscitated with a total of 3 L of crystalloid fluid so far. Febrile with a temperature of 100.3 F. Workup including a chest x-ray showing multifocal airspace opacities concerning for pn eumonia. Denies any coughing, sputum production, hemoptysis, chest pain. Denies any history of heart failure. Denies any lower extremity edema. Denies any she denies any dysuria, frequency, hematuria, suprapubic pain or flank pain. She is retaining urine and a bedside bladder scan showed 850 cc of urine in the bladder. Labs including a CBC with a WBC count of 19.4, hemoglobin 13, platelets 681. CMP: Sodium 131, potassium 4.3, chloride 100, serum bicarb 18, BUN 22, creatinine 1.36, glucose 389. Lactic was 2.7 is down to 2.5. LFTs not elevated. Troponin was 0.376. NT proBNP significantly elevated at 12,900. Patient currently being evaluated in the emergency department. She is on BiPAP with settings 14/6 and FiO2 40%. SpO2 reading 100% on bedside monitor. She does not appear to be any respiratory distress. Talking complete sentences. No accessory muscle use. She was easily transitioned to nasal cannula. Blood pressure currently 100/66 mmHg. She was empirically placed on a combination of Levaquin and Zosyn in the ED. Currently afebrile. The patient is seen today August 05, 2024 in follow-up on the selective care unit. She is currently resting in bed. Awake and alert in no acute distress. Maintaining O2 saturations in the 90s on 3 L/min per nasal cannula. She is afebrile. Hemodynamically stable. Chest x-ray reveals increased diffuse lung markings bilaterally. Urine culture positive for Chrissy. Blood culture pending. White count 9.7. Hemoglobin 8.8. Platelets 427. Sodium 140. Potassium 3.6. Bicarb 19. BUN 18. Creatinine 1.14. Glucose 189. Pr ocalcitonin 21.6. She remains on DuoNeb inhalations, antibiotics in the form of Zosyn and Levaquin. Initiated on Diflucan. Heparin for DVT prophylaxis. Progress note dated August 06, 2024. The patient is seen today in room 372. She is currently resting in bed. She is awake and alert. No acute distress. The patient continues on 2 L nasal O2. She is getting saline at 75 cc an hour. She is hemodynamically stable. No new labs today other than a glucose of 201. Urine was positive for Chrissy. No new x-ray to report. The patient continues on fluconazole, Levaquin, and Zosyn. Progress note dated August 07, 2024. 63-year-old female who was transferred to the intensive care unit, at about 11 PM last night. She came in because of supraventricular tachycardia. She was moved over by my nurse practitioner. She is seen today in room 261. She is on 3 L nasal O2. She is getting saline at 75 cc an hour, and amiodarone 0.5 mg/min. She came into the intensive care unit, at 11 PM. She has been on BiPAP, at 14/6, 40%, for 6 hours. Current labs include a white count of 12.4, hemoglobin 9, hematocrit 27.9, platelet count 331,000. Sodium 134, potassium 3.7, chloride 102, CO2 23, anion gap 9, BUN 12, creatinine 0.63. Glucose 297. Calcium 7. Magnesium 1.3. Albumin 2.2. Urine culture was positive for Chrissy albicans. Chest x-ray shows an improved right lower lobe infiltrate, and possible mild fluid overload. Progress note dated August 08, 2024. 63-year-old female seen today in room 261. She is currently on 3 L of oxygen. She is getting saline at 75 cc an hour. Yesterday she was on IV amiodarone. Now she is on p.o. amiodarone. Clinically, she is doing well. Her major complaint is pain. She is also having some issues with insomnia. Anyway, I mention to her that she should talk to her hospital doctor about those 2 issues. Current labs include a white count of 10.0, hemoglobin 8.5, hematocrit 26.5, platelet count of 2 94,000. Sodium 135, potassium 3.9, chlorides 103, CO2 27, BUN 11, creatinine 0.71. Glucose is 150. Calcium is 7. Albumin is 2.1. Chest x-ray shows cardiomegaly, with pulmonary venous congestion. Progress note dated August 09, 2024. 63-year-old female seen today in room 353. She was in the intensive care unit yesterday. Is resting comfortably in bed. She is on saline at 75 cc an hour, and receiving nasal cannula, 3 L. No acute distress. She is awake and alert. White count 10.9, hemoglobin 8.9, hematocrit 27.6, platelet count is normal. Sodium 136, potassium 4.3, chlorides 105, CO2 26, BUN 10, and creatinine 0.58. Calcium is 7.4. Microbiology is currently negative. No chest x-ray today. Objective - Vital Signs Vital signs: Vital Signs Temp 98.4 F 08/09/24 09:15 Pulse 80 08/09/24 09:15 Resp 18 08/09/24 09:15 BP 113/78 08/09/24 09:15 Pulse Ox 98 08/09/24 09:15 FiO2 40 08/07/24 08:11 Intake & Output 08/08/24 08/09/24 08/09/24 18:59 06:59 18:59 Intake Total 980 180 Output Total 720 1280 400 Balance 260 -1280 -220 Weight 83 kg Intake: IV 400 Magnesium Sulfate-D5w Pmx 300 1 gm In Dextrose/Water 1 100ml.bag @ 100 mls/hr IVPB Q1H [facility] Rx#: [id number] Piperacillin-Tazobactam 3 100 .375 gm In Sodium Chloride 0.9% 100 ml @ 25 mls/hr IVPB Q8H [facility] Rx#: [id number] Oral 580 180 Output: Urine 720 1280 400 Straight 400 Other: Voiding Method Indwelling Catheter Indwelling Catheter Indwelling Catheter - Exam No acute distress, oriented 3. Patient continues on 3 L nasal cannula. HEENT examination is grossly unremarkable. Mucous membranes are moist. No oral lesions. Neck supple. Full range of motion. No adenopathy thyromegaly or neck vein distention. Cardiovascular examination reveals regular rhythm rate. S1-S2 normal. No S3 or S4. No discernible murmur noted. Lungs reveal clear breath sounds. Breath sounds are equal bilaterally. No adventitious lung sounds including wheezes rhonchi or crackles. Abdomen soft bowel sounds are heard. No masses or tenderness. Extremities are intact. No cyanosis clubbing or edema. Toe amputations noted. Skin is without rash or lesion. Neurologic examination is brief but nonfocal. - Labs CBC & Chem 7: 08/09/24 05:53 08/09/24 05:53 Labs: Abnormal Lab Results - Last 24 Hours (Table) 08/08/24 08/08/24 08/08/24 Range/Units 11:36 16:17 16:19 WBC (4.50-10.00) 10*3/uL RBC (4.10-5.20) 10*6/uL Hgb (12.0-15.0) g/dL Hct (37.2-46.3) % Immature Gran # (0.00-0.04) 10*3/uL Neutrophils # (1.80-7.70) 10*3/uL Sodium (137-145) mmol/L POC Glucose (mg/dL) 150 H 210 H 193 H (70-110) mg/dL Calcium (8.4-10.2) mg/dL 08/08/24 08/09/24 08/09/24 Range/Units 20:04 05:53 05:53 WBC 10.93 H (4.50-10.00) 10*3/uL RBC 3.22 L (4.10-5.20) 10*6/uL Hgb 8.9 L (12.0-15.0) g/dL Hct 27.6 L (37.2-46.3) % Immature Gran # 0.10 H (0.00-0.04) 10*3/uL Neutrophils # 8.19 H (1.80-7.70) 10*3/uL Sodium 136 L (137-145) mmol/L POC Glucose (mg/dL) 155 H (70-110) mg/dL Calcium 7.4 L (8.4-10.2) mg/dL Assessment and Plan Assessment: Acute hypoxemic respiratory failure, secondary to pneumonia. Acute supraventricular tachycardia. Hypotension, consider sepsis/septic shock. Acute febrile illness. Acute leukocytosis. Urinary retention. Acute kidney injury. Elevated troponins rule out non-ST elevation NV. History of hypertension. History of hyperlipidemia. Diabetes mellitus type 2, uncontrolled. History of coronary artery disease with previous PCI/stents. History of peripheral vascular disease. History of left foot transmetatarsal amputation. History of right 4th and 5th toe amputation on the right. History of nondisplaced oblique fracture of the left greater trochanter. Currently undergoing tobacco dependence. Plan: Plan dated August 06, 2024. 63-year-old female seen today in room 372. The patient is much more stable. She is on saline at 75 cc an hour. She is on 2 L nasal cannula. She continues on antibiotics. Labs, x-rays, and all medications are reviewed. We will continue to follow the patient, make recommendations were appropriate. The patient continues on Levaquin, and Zosyn. Prognosis is certainly guarded. We will continue to follow. Dictation was produced using [employer] software. Please excuse any grammatical, word or spelling errors. Plan dated August 07, 2024. The patient developed SVT, last night, about 11 PM, and the patient was transferred to the intensive care unit. The patient is currently seen in room 261. She is on 3 L nasal cannula. In addition, the patient is on saline at 75 cc an hour, and amiodarone at 0.5 mg/min. The patient was on BiPAP, for about 6 hours, from 11 PM to 5 AM, with settings of 14/6, and 40%. Currently, on 3 L as mentioned above. All labs, x-rays, and medications are reviewed. We will continue to follow the patient, make recommendations. Overall prognosis remains guarded. Dictation was produced using [employer] software. Please excuse any grammatical, word or spelling errors. Plan dated August 08, 2024. The patient is seen today in the intensive care unit, room 261. She had an uneventful night. The patient is currently on 3 L. She is getting saline 75 cc an hour. The IV amiodarone has been converted to p.o. amiodarone. All labs, x- rays, and medications are reviewed. The patient is stable and could be considered for possible discharge out to the cardiac floor. We will continue to follow. Prognosis is guarded. Dictation was produced using [employer] software. Please excuse any grammatical, word or spelling errors. Plan dated August 09, 2024. The patient was seen today, in room 353. Yesterday, she was in the intensive care unit. She was out on the floor, and then came into the intensive care unit, because of SVT. That is resolved. She is currently on saline at 75 cc an hour. She is getting nasal O2 at 3 L. She is resting comfortably in bed. Labs, x-rays, medications are reviewed. The patient is doing well. We will continue to follow. Prognosis is guarded. All labs, x-rays, and medications have been reviewed. Dictation was produced using [employer] software. Please excuse any grammatical, word or spelling errors. Time with Patient: Less than 30
[2024-08-09 11:21] LABS: Glucose,Whole Blood 170 mg/dL (70-110)
--- NOTE | 2024-08-09 15:30 | P.PN ---
Subjective Progress Note Date: 08/09/24 Principal diagnosis: Reason for follow-up is fever/pneumonia Patient is a 63-year-old female with a past medical history significant for diabetes mellitus reflux hypertension hyperlipidemia PA CVA TIA previous patient noted to have history of recurrent UTI recently discharged from this hospital after receiving treatment for UTI cystitis has been brought back to the hospital concerning for generalized weakness along with mental status changes and low oxygen patient did have a low-grade fever chest x-ray with multifocal airspace opacity probably this consultation. On today's evaluation that is 08/10/2023, patient did have a temperature of 97.9 F this afternoon and denies having any chills, patient is on room air and breathing comfortably no chest pain and cough has decreased intensity, the patient did not have any nausea vomiting abdominal pain or any donavan patient white count is down to 10.93 creatinine 0.58 urine with Chrissy blood culture has been negative rrhea. Objective - Vital Signs Vital signs: Vital Signs Temp 97.9 F 08/09/24 15:07 Pulse 80 08/09/24 15:07 Resp 16 08/09/24 15:07 BP 101/66 08/09/24 15:07 Pulse Ox 95 08/09/24 15:07 FiO2 40 08/07/24 08:11 Intake & Output 08/08/24 08/09/24 08/09/24 18:59 06:59 18:59 Intake Total 980 630 Output Total 720 1280 400 Balance 260 -1280 230 Weight 83 kg Intake: IV 400 210 Invasive Line 4 10 Magnesium Sulfate-D5w Pmx 300 1 gm In Dextrose/Water 1 100ml.bag @ 100 mls/hr IVPB Q1H [facility] Rx#: [id number] Piperacillin-Tazobactam 3 100 200 .375 gm In Sodium Chloride 0.9% 100 ml @ 25 mls/hr IVPB Q8H [facility] Rx#: [id number] Oral 580 420 Output: Urine 720 1280 400 Straight 400 Other: Voiding Method Indwelling Catheter Indwelling Catheter Indwelling Catheter - Exam GENERAL DESCRIPTION: Middle-age female lying in bed in no distress RESPIRATORY SYSTEM: Unlabored breathing , decreased breath sounds at bases HEART: S1 S2 regular rate and rhythm , ABDOMEN: Soft , no tenderness EXTREMITIES: Bilateral heel wounds are currently dressed - Labs CBC & Chem 7: 08/09/24 05:53 08/09/24 05:53 Labs: Abnormal Lab Results - Last 24 Hours (Table) 08/08/24 08/08/24 08/08/24 Range/Units 16:17 16:19 20:04 WBC (4.50-10.00) 10*3/uL RBC (4.10-5.20) 10*6/uL Hgb (12.0-15.0) g/dL Hct (37.2-46.3) % Immature Gran # (0.00-0.04) 10*3/uL Neutrophils # (1.80-7.70) 10*3/uL Sodium (137-145) mmol/L POC Glucose (mg/dL) 210 H 193 H 155 H (70-110) mg/dL Calcium (8.4-10.2) mg/dL 08/09/24 08/09/24 08/09/24 Range/Units 05:53 05:53 11:19 WBC 10.93 H (4.50-10.00) 10*3/uL RBC 3.22 L (4.10-5.20) 10*6/uL Hgb 8.9 L (12.0-15.0) g/dL Hct 27.6 L (37.2-46.3) % Immature Gran # 0.10 H (0.00-0.04) 10*3/uL Neutrophils # 8.19 H (1.80-7.70) 10*3/uL Sodium 136 L (137-145) mmol/L POC Glucose (mg/dL) 170 H (70-110) mg/dL Calcium 7.4 L (8.4-10.2) mg/dL Microbiology - Last 24 Hours (Table) 08/04/24 02:13 Blood Culture - Final Blood Assessment and Plan (1) Pneumonia Current Visit: Yes Status: Acute Code(s): J18.9 - PNEUMONIA, UNSPECIFIED ORGANISM SNOMED Code(s): 695334791 (2) Sepsis Current Visit: Yes Status: Acute Code(s): A41.9 - SEPSIS, UNSPECIFIED ORGANISM SNOMED Code(s): 06750465 (3) Pressure ulcer, heel, right, unstageable Current Visit: No Status: Acute Code(s): L89.610 - PRESSURE ULCER OF RIGHT HEEL, UNSTAGEABLE SNOMED Code(s): 04559203223733333 Plan: 1patient presented to the hospital with sepsis in this patient who did have a fever tachycardia elevated white count meeting criteria for SIRS/sepsis with evidence of diffuse multifocal airspace opacities will need to cover for the resistant gram-negative with the likely pathogen as the patient was recently discharged from this facility and exposed to antibiotics 2blood culture remains to be negative sputum has already been collected, urine for Legionella antigen negative 3keep bilateral heel area of the pressure to prevent any worsening of the bilateral heel pressure ulcer 4-patient did have resolution of the fever and white count down to 10,000, patient to continue with Zosyn and Levaquin, hopefully will be transition to oral antibiotic on discharge Dictation was produced using [employer] dictation software. please excuse any gr ammatical, word or spelling errors. Time with Patient: Less than 30
--- NOTE | 2024-08-09 15:56 | XR ---
EXAMINATION TYPE: XR lumbar spine 1V DATE OF EXAM: 08/09/2024 3:38 PM COMPARISON: Prior radiograph 06/26/2016. CLINICAL INDICATION: Female, 63 years old with history of NOS back pains; PHH, pain TECHNIQUE: XR lumbar spine 1V - Frontal, lateral and coned in L5-S1 lateral views of the spine. FINDINGS: Portable AP view of the lumbosacral spine demonstrates fusion hardware spanning the lower l umbosacral spine. Multilevel intervertebral disc space loss and osteophyte formation. IMPRESSION: No acute osseous abnormality. [facility], , 08/09/2024 3:53 PM
[2024-08-09 16:14] LABS: Glucose,Whole Blood 138 mg/dL (70-110)
[2024-08-09] MEDS: LEVOFLOXACIN 750MG-D5W PMX 750 MG in DEXTROSE/WATER 1 150ML.BAG IVPB SCH (16:51)
--- NOTE | 2024-08-09 17:07 | P.PN ---
Subjective Progress Note Date: 08/09/24 This is a 63-year-old female patient of Dr. Lock with past medical history of coronary artery disease with prior triple-vessel stenting as well as lower extremity PAD status post stenting of bilateral iliac and bilateral SFA, carotid atherosclerosis with history of stroke, diabetes, hypertension, dyslipidemia and tobacco use and dependence. We have been asked to evaluate the patient for CHF. Patient states that she came into the hospital due to weakness. Her story is very difficult to follow. Patient was recently hospitalized 07/22 - 08/01 at which time she was treated for complicated urinary tract infection as well as a right heel unstageable pressure ulcer, small bowel ileus. Patient was discharged to home with home care in place. According to the ER notes, patient returned due to shortness of breath with a low pulse ox and altered mental status. Patient initially was started on BiPAP and has been transition to nasal cannula at 2 L. Patient has been started on nebulizer treatments and IV antibiotics. She states she is feeling better now since she came into the hospital. She is not sure what helped make her feel better. Blood pressure 102/64, heart rate 79, pulse ox 97% on 2 L nasal cannula. Patient had presented with a temperature max of 100.3, heart rate 139, respiratory rate 40, blood pressure 84/52. She is status post 3 L of IV fluid bolus, magnesium replacement, multiple doses of insulin, Tylenol and ibuprofen as well as Xanax and Ativan -EKG: Sinus tachycardia 135 bpm -Chest x-ray: #1 multifocal airspace opacities concerning for pneumonia. #2 correlate for pulmonary edema. Pneumonia and atypical pneumonia could be considered. -Laboratory studies: WBC 19.3 now 11.4. Hemoglobin 10.5. Sodium 137, potassium 3.3, BUN 25 creatinine 1.17. Blood sugar in the 400s. Lactic acid 3.3. Troponin 0.376. proBNP 12,900. Urinalysis positive for urinary tract infect ion. Cepheid viral panel not detected. -Home cardiac medications: Aspirin 81 mg twice daily, atorvastatin 80 mg at bedtime, Plavix 75 mg daily. -Lexiscan Cardiolite from 2019 was nondiagnostic electrocardiogram stress testing response to Lexiscan. Probably normal myocardial perfusion imaging. No evidence of stress-induced ischemia. Normal left ventricular systolic function. -Echocardiogram performed in the office in 2017-revealed EF 55%, mild concentric hypertrophy. Trace aortic regurgitation. Mild tricuspid regurgitation. 08/05/2024 Patient seen and examined on the cardiac stepdown unit. Patient states that she is not feeling better since she came into the hospital. She states she is so weak. Blood cultures are status received. Temperature max 102.2. Blood pressure 98/49, heart rate 106, pulse ox 90% on 3 L nasal cannula. Repeat blood work reveals WBC 9.7, hemoglobin 8.8. Potassium 3.6, BUN 18 creatinine 1.14. Hemoglobin A 1C is 9.4. Echocardiogram has been obtained and report is pending 08/06/2024 Patient seen and examined. Heart rate 90-102, blood pressure 102/92, pulse ox 99% on 3 L nasal cannula. No repeat blood work today. Blood culture reveals no growth at 48 hours. Echocardiogram reveals EF 35% inferior inferior lateral and anterior lateral hypokinesis. Mild mitral regurgitation. Somewhat mobile hypodensity of the aortic valve with possible vegetation. Consider PATRICIA if clinically indicated. No aortic regurgitation. Mild tricuspid regurgitation. No pericardial effusion. 08/09/2024 No new cardiovascular symptoms BP 101/66, heart rate 80 bpm Hb 9, BUN 12, creatinine 0.6 Physical examination: Gen: This is a 63-year-old female appears to be in no acute distress. VS: reviewed HEENT: Head is atraumatic, normocephalic. Pupils equal, round. Sclerae is anicteric. NECK: Supple. No JVD. LUNGS: Clear to auscultation. No wheezes or rhonchi. No crackles. No intercostal retractions. HEART: Regular rate and rhythm. No murmur. ABDOMEN: Soft No tenderness. EXTREMITIES: Mild bilateral lower extremity edema. No calf tenderness. NEUROLOGICAL: Patient is awake, alert and oriented to person. Assessment: Paroxysmal SVT Chronic HFrEF, EF 35%, likely ischemic cardiomyopathy Acute hypoxic respiratory failure initially on BiPAP, transitioned to nasal cannula Pneumonia with sepsis Urinary retention and Bilateral hydronephrosis on recent hospitalization Coronary artery disease with prior triple-vessel stenting, with residual 50% in- stent stenosis in RCA stent. Lower extremity PAD status post stenting of the bilateral iliac and bilateral SF A Carotid atherosclerosis with History of stroke Diabetes mellitus type II uncontrolled with hyperglycemia, A1c 9.4 Hypertension, Dyslipidemia Tobacco use and dependence Anemia, new onset Plan: Reduce amiodarone to 200 mg daily Continue Lipitor 80 mg, cilostazol 100 mg twice daily, Plavix 75 minutes daily, discontinue fenofibrate to reduce chances of myopathy Start Farxiga 10 mg daily, Aldactone 12.5 mg daily, metoprolol succinate 12.5 mg daily, losartan 12.5 mg daily. If renal function stable tomorrow consider discharging Consider outpatient cardiac catheterization new drop in LVEF with wall motion abnormality. Smoking cessation: Patient will be provided the [employer] quit line information at discharge Objective - Vital Signs Vital signs: Vital Signs Temp 97.9 F 08/09/24 15:07 Pulse 80 08/09/24 15:07 Resp 16 08/09/24 15:07 BP 101/66 08/09/24 15:07 Pulse Ox 95 08/09/24 15:07 FiO2 40 08/07/24 08:11 Intake & Output 08/08/24 08/09/24 08/09/24 18:59 06:59 18:59 Intake Total 980 630 Output Total 720 1280 1300 Balance 260 -1280 -670 Weight 83 kg Intake: IV 400 210 Invasive Line 4 10 Magnesium Sulfate-D5w Pmx 300 1 gm In Dextrose/Water 1 100ml.bag @ 100 mls/hr IVPB Q1H [facility] Rx#: [id number] Piperacillin-Tazobactam 3 100 200 .375 gm In Sodium Chloride 0.9% 100 ml @ 25 mls/hr IVPB Q8H [facility] Rx#: [id number] Oral 580 420 Output: Urine 720 1280 1300 Straight 400 Other: Voiding Method Indwelling Catheter Indwelling Catheter Indwelling Catheter - Labs CBC & Chem 7: 08/09/24 05:53 08/09/24 05:53 Labs: Abnormal Lab Results - Last 24 Hours (Table) 08/08/24 08/09/24 08/09/24 Range/Units 20:04 05:53 05:53 WBC 10.93 H (4.50-10.00) 10*3/uL RBC 3.22 L (4.10-5.20) 10*6/uL Hgb 8.9 L (12.0-15.0) g/dL Hct 27.6 L (37.2-46.3) % Immature Gran # 0.10 H (0.00-0.04) 10*3/uL Neutrophils # 8.19 H (1.80-7.70) 10*3/uL Sodium 136 L (137-145) mmol/L POC Glucose (mg/dL) 155 H (70-110) mg/dL Calcium 7.4 L (8.4-10.2) mg/dL 08/09/24 08/09/24 Range/Units 11:19 16:10 WBC (4.50-10.00) 10*3/uL RBC (4.10-5.20) 10*6/uL Hgb (12.0-15.0) g/dL Hct (37.2-46.3) % Immature Gran # (0.00-0.04) 10*3/uL Neutrophils # (1.80-7.70) 10*3/uL Sodium (137-145) mmol/L POC Glucose (mg/dL) 170 H 138 H (70-110) mg/dL Calcium (8.4-10.2) mg/dL Microbiology - Last 24 Hours (Table) 08/04/24 02:13 Blood Culture - Final Blood
[2024-08-09] MEDS: LOSARTAN 25 MG TAB PO SCH (17:19)
[2024-08-09] MEDS: SPIRONOLACTONE 25 MG TAB PO SCH (17:19)
[2024-08-09] MEDS: METOPROLOL SUCCINATE (ER) 25 MG TAB.ER.24H PO SCH (17:19)
[2024-08-09] MEDS: DAPAGLIFLOZIN PROPANEDIOL 10 MG TABLET PO SCH (17:20)
[2024-08-09 19:35] LABS: Glucose,Whole Blood 141 mg/dL (70-110)
[2024-08-09] MEDS: OLANZapine 10 MG VIAL IM STA (22:34)
[2024-08-10 05:33] LABS: Glucose,Whole Blood 112 mg/dL (70-110)
[2024-08-10 07:23] LABS: Basophils # (A) 0.02 10*3/uL (0.00-0.10); Basophils % (A) 0.2 %; Eosinophils # (A) 0.00 10*3/uL (0.04-0.35); Eosinophils % (A) 0.0 %; HCT 27.1 % (37.2-46.3); HGB 8.6 g/dL (12.0-15.0); Lymphocytes # (A) 1.00 10*3/uL (0.90-5.00); Lymphocytes % (A) 12.4 %; MCH 27.4 pg (27.0-32.0); MCHC 31.7 g/dL (32.0-37.0); MCV 86.3 fL (80.0-97.0); Monocytes # (A) 0.45 10*3/uL (0.20-1.00); Monocytes % (A) 5.6 %; Neutrophils # (A) 6.56 10*3/uL (1.80-7.70); Neutrophils % (A) 81.2 %; Platelet Count 330 10*3/uL (140-440); RBC 3.14 10*6/uL (4.10-5.20); RDW 14.4 % (11.5-14.5); WBC 8.08 10*3/uL (4.50-10.00)
[2024-08-10 07:39] LABS: African American GFR (CKD) >90 (>60 ml/min/1.73 sqM); Anion Gap 4 mmol/L; Blood Urea Nitrogen 11 mg/dL (7-17); Calcium 7.6 mg/dL (8.4-10.2); Carbon Dioxide 28 mmol/L (22-30); Chloride 105 mmol/L (98-107); Glucose 102 mg/dL (74-99); Non-African American GFR(CKD) >90 (>60 ml/min/1.73 sqM); Potassium 3.8 mmol/L (3.5-5.1); Sodium 137 mmol/L (137-145)
--- NOTE | 2024-08-10 11:10 | P.PN ---
Subjective Progress Note Date: 08/10/24 Principal diagnosis: Sepsis. Patient is a 63 female with past medical history significant for hypertension, hyperlipidemia, diabetes mellitus type 2, coronary disease with previous PCI/stents, peripheral vascular disease, left foot metatarsal amputation as well as right fourth-fifth toe amputation. Of note, patient recently hospitalized May, with left hip fracture. CT of the left hip showing a nondisplaced oblique fracture through the superior corner of the left greater trochanter. Did return to the hospital 07/22/2024 with abdominal pain. Thought to possible have a urinary tract infection. Abdominal/pelvis CT remarkable for bilateral hydronephrosis, right greater than left, bladder wall thickening, and small bowel ileus. Incidental findings of bilateral pleural effusions and compressive atelectasis. Patient was discharged on 08/01/2024. Patient returns to the emergency department 2 days later complaining of increased weakness, fevers, and shortness of breath. She was placed on BiPAP initially in the ED. She was also noted to be hypotensive and has been fluid resuscitated with a total of 3 L of crystalloid fluid so far. Febrile with a temperature of 100.3 F. Workup including a chest x-ray showing multifocal airspace opacities concerning for pn eumonia. Denies any coughing, sputum production, hemoptysis, chest pain. Denies any history of heart failure. Denies any lower extremity edema. Denies any she denies any dysuria, frequency, hematuria, suprapubic pain or flank pain. She is retaining urine and a bedside bladder scan showed 850 cc of urine in the bladder. Labs including a CBC with a WBC count of 19.4, hemoglobin 13, platelets 681. CMP: Sodium 131, potassium 4.3, chloride 100, serum bicarb 18, BUN 22, creatinine 1.36, glucose 389. Lactic was 2.7 is down to 2.5. LFTs not elevated. Troponin was 0.376. NT proBNP significantly elevated at 12,900. Patient currently being evaluated in the emergency department. She is on BiPAP with settings 14/6 and FiO2 40%. SpO2 reading 100% on bedside monitor. She does not appear to be any respiratory distress. Talking complete sentences. No accessory muscle use. She was easily transitioned to nasal cannula. Blood pressure currently 100/66 mmHg. She was empirically placed on a combination of Levaquin and Zosyn in the ED. Currently afebrile. The patient is seen today August 05, 2024 in follow-up on the selective care unit. She is currently resting in bed. Awake and alert in no acute distress. Maintaining O2 saturations in the 90s on 3 L/min per nasal cannula. She is afebrile. Hemodynamically stable. Chest x-ray reveals increased diffuse lung markings bilaterally. Urine culture positive for Chrissy. Blood culture pending. White count 9.7. Hemoglobin 8.8. Platelets 427. Sodium 140. Potassium 3.6. Bicarb 19. BUN 18. Creatinine 1.14. Glucose 189. Pr ocalcitonin 21.6. She remains on DuoNeb inhalations, antibiotics in the form of Zosyn and Levaquin. Initiated on Diflucan. Heparin for DVT prophylaxis. Progress note dated August 06, 2024. The patient is seen today in room 372. She is currently resting in bed. She is awake and alert. No acute distress. The patient continues on 2 L nasal O2. She is getting saline at 75 cc an hour. She is hemodynamically stable. No new labs today other than a glucose of 201. Urine was positive for Chrissy. No new x-ray to report. The patient continues on fluconazole, Levaquin, and Zosyn. Progress note dated August 07, 2024. 63-year-old female who was transferred to the intensive care unit, at about 11 PM last night. She came in because of supraventricular tachycardia. She was moved over by my nurse practitioner. She is seen today in room 261. She is on 3 L nasal O2. She is getting saline at 75 cc an hour, and amiodarone 0.5 mg/min. She came into the intensive care unit, at 11 PM. She has been on BiPAP, at 14/6, 40%, for 6 hours. Current labs include a white count of 12.4, hemoglobin 9, hematocrit 27.9, platelet count 331,000. Sodium 134, potassium 3.7, chloride 102, CO2 23, anion gap 9, BUN 12, creatinine 0.63. Glucose 297. Calcium 7. Magnesium 1.3. Albumin 2.2. Urine culture was positive for Chrissy albicans. Chest x-ray shows an improved right lower lobe infiltrate, and possible mild fluid overload. Progress note dated August 08, 2024. 63-year-old female seen today in room 261. She is currently on 3 L of oxygen. She is getting saline at 75 cc an hour. Yesterday she was on IV amiodarone. Now she is on p.o. amiodarone. Clinically, she is doing well. Her major complaint is pain. She is also having some issues with insomnia. Anyway, I mention to her that she should talk to her hospital doctor about those 2 issues. Current labs include a white count of 10.0, hemoglobin 8.5, hematocrit 26.5, platelet count of 2 94,000. Sodium 135, potassium 3.9, chlorides 103, CO2 27, BUN 11, creatinine 0.71. Glucose is 150. Calcium is 7. Albumin is 2.1. Chest x-ray shows cardiomegaly, with pulmonary venous congestion. Progress note dated August 09, 2024. 63-year-old female seen today in room 353. She was in the intensive care unit yesterday. Is resting comfortably in bed. She is on saline at 75 cc an hour, and receiving nasal cannula, 3 L. No acute distress. She is awake and alert. White count 10.9, hemoglobin 8.9, hematocrit 27.6, platelet count is normal. Sodium 136, potassium 4.3, chlorides 105, CO2 26, BUN 10, and creatinine 0.58. Calcium is 7.4. Microbiology is currently negative. No chest x-ray today. Progress note dated August 10, 2024. 63-year-old female seen today in room 353. The patient is currently getting saline at 20 cc an hour. He is getting nasal oxygen, 3 L, O2 saturation 98%. She is in no acute distress. She is resting comfortably in bed. Her procalcitonin level was 21.6. White count 8.1, hemoglobin 8.6, hematocrit 27.1, platelet count 330,000. Sodium 137, potassium 3.8, chlorides 105, CO2 28, BUN 11, creatinine 0.65. Glucose is 102. Calcium is 7.6. Objective - Vital Signs Vital signs: Vital Signs Temp 98.2 F 08/10/24 09:59 Pulse 71 08/10/24 09:59 Resp 16 08/10/24 09:59 BP 81/47 08/10/24 09:59 Pulse Ox 96 08/10/24 09:59 FiO2 40 08/07/24 08:11 Intake & Output 08/09/24 08/10/24 08/10/24 18:59 06:59 18:59 Intake Total 630 20 Output Total 1300 1800 Balance -670 -1780 Weight 77 kg Intake: IV 210 20 Invasive Line 4 10 20 Piperacillin-Tazobactam 3 200 .375 gm In Sodium Chloride 0.9% 100 ml @ 25 mls/hr IVPB Q8H [facility] Rx#: [id number] Oral 420 Output: Urine 1300 1800 Straight 400 Other: Voiding Method Indwelling Catheter Indwelling Catheter Indwelling Catheter - Exam No acute distress, oriented 3. Patient continues on 3 L nasal cannula. HEENT examination is grossly unremarkable. Mucous membranes are moist. No oral lesions. Neck supple. Full range of motion. No adenopathy thyromegaly or neck vein distention. Cardiovascular examination reveals regular rhythm rate. S1-S2 normal. No S3 or S4. No discernible murmur noted. Lungs reveal clear breath sounds. Breath sounds are equal bilaterally. No adventitious lung sounds including wheezes rhonchi or crackles. Abdomen soft bowel sounds are heard. No masses or tenderness. Extremities are intact. No cyanosis clubbing or edema. Toe amputations noted. Skin is without rash or lesion. Neurologic examination is brief but nonfocal. - Labs CBC & Chem 7: 08/10/24 06:29 08/10/24 06:29 Labs: Abnormal Lab Results - Last 24 Hours (Table) 08/09/24 08/09/24 08/09/24 Range/Units 11:19 16:10 19:34 RBC (4.10-5.20) 10*6/uL Hgb (12.0-15.0) g/dL Hct (37.2-46.3) % MCHC (32.0-37.0) g/dL Immature Gran # (0.00-0.04) 10*3/uL Eosinophils # (0.04-0.35) 10*3/uL Glucose (74-99) mg/dL POC Glucose (mg/dL) 170 H 138 H 141 H (70-110) mg/dL Calcium (8.4-10.2) mg/dL 08/10/24 08/10/24 08/10/24 Range/Units 05:32 06:29 06:29 RBC 3.14 L (4.10-5.20) 10*6/uL Hgb 8.6 L (12.0-15.0) g/dL Hct 27.1 L (37.2-46.3) % MCHC 31.7 L (32.0-37.0) g/dL Immature Gran # 0.05 H (0.00-0.04) 10*3/uL Eosinophils # 0.00 L (0.04-0.35) 10*3/uL Glucose 102 H (74-99) mg/dL POC Glucose (mg/dL) 112 H (70-110) mg/dL Calcium 7.6 L (8.4-10.2) mg/dL Microbiology - Last 24 Hours (Table) 08/04/24 02:13 Blood Culture - Final Blood Assessment and Plan Assessment: Acute hypoxemic respiratory failure, secondary to pneumonia. Acute supraventricular tachycardia. Hypotension, consider sepsis/septic shock, resolved. Acute febrile illness. Acute leukocytosis. Urinary retention. Acute kidney injury. Elevated troponins rule out non-ST elevation [place]. History of hypertension. History of hyperlipidemia. Diabetes mellitus type 2, uncontrolled. History of coronary artery disease with previous PCI/stents. History of peripheral vascular disease. History of left foot transmetatarsal amputation. History of right 4th and 5th toe amputation on the right. History of nondisplaced oblique fracture of the left greater trochanter. Currently undergoing tobacco dependence. Plan: Plan dated August 06, 2024. 63-year-old female seen today in room 372. The patient is much more stable. She is on saline at 75 cc an hour. She is on 2 L nasal cannula. She continues on antibiotics. Labs, x-rays, and all medications are reviewed. We will continue to follow the patient, make recommendations were appropriate. The patient continues on Levaquin, and Zosyn. Prognosis is certainly guarded. We will continue to follow. Dictation was produced using [email or web address] software. Please excuse any grammatical, word or spelling errors. Plan dated August 07, 2024. The patient developed SVT, last night, about 11 PM, and the patient was transferred to the intensive care unit. The patient is currently seen in room 261. She is on 3 L nasal cannula. In addition, the patient is on saline at 75 cc an hour, and amiodarone at 0.5 mg/min. The patient was on BiPAP, for about 6 hours, from 11 PM to 5 AM, with settings of 14/6, and 40%. Currently, on 3 L as mentioned above. All labs, x-rays, and medications are reviewed. We will continue to follow the patient, make recommendations. Overall prognosis remains guarded. Dictation was produced using [email or web address] software. Please excuse any grammatical, word or spelling errors. Plan dated August 08, 2024. The patient is seen today in the intensive care unit, room 261. She had an uneventful night. The patient is currently on 3 L. She is getting saline 75 cc an hour. The IV amiodarone has been converted to p.o. amiodarone. All labs, x- rays, and medications are reviewed. The patient is stable and could be considered for possible discharge out to the cardiac floor. We will continue to follow. Prognosis is guarded. Dictation was produced using [email or web address] software. Please excuse any grammatical, word or spelling errors. Plan dated August 09, 2024. The patient was seen today, in room 353. Yesterday, she was in the intensive care unit. She was out on the floor, and then came into the intensive care unit, because of SVT. That is resolved. She is currently on saline at 75 cc an hour. She is getting nasal O2 at 3 L. She is resting comfortably in bed. Labs, x-rays, medications are reviewed. The patient is doing well. We will continue to follow. Prognosis is guarded. All labs, x-rays, and medications have been reviewed. Dictation was produced using [email or web address] software. Please excuse any grammatical, word or spelling errors. Plan dated August 10, 2024. The patient continues on Levaquin and Zosyn. Labs, x-rays, and medications are reviewed. Clinically, the patient is stable. She denies any shortness of breath, cough, wheezing, chest tightness, or phlegm production. She is resting comfortably in bed. No respiratory distress. She continues on 3 L nasal cannula. Saturations are 97 to 98%. All labs, x-rays, and medications are reviewed. We will continue to follow the patient, make recommendations. Prognosis is guarded. Dictation was produced using [email or web address] software. Please excuse any grammatical, word or spelling errors. Time with Patient: Less than 30
[2024-08-10 11:52] LABS: Glucose,Whole Blood 131 mg/dL (70-110)
[2024-08-10] MEDS: AMIODARONE 200 MG TAB PO SCH (15:30)
--- NOTE | 2024-08-10 16:16 | P.PN ---
Subjective Progress Note Date: 08/10/24 Principal diagnosis: Reason for follow-up is fever/pneumonia Patient is a 63-year-old female with a past medical history significant for diabetes mellitus reflux hypertension hyperlipidemia [place] CVA TIA previous patient noted to have history of recurrent UTI recently discharged from this hospital after receiving treatment for UTI cystitis has been brought back to the hospital concerning for generalized weakness along with mental status changes and low oxygen patient did have a low-grade fever chest x-ray with multifocal airspace opacity probably this consultation. On today's evaluation that is 08/10/2024, Patient is afebrile patient is currently on 3 L goal oxygen admission breathing comfortably, patient denies any chest pain or worsening cough no abdominal pain no diarrhea mention she was given something to sleep last night and has been sleepy all day. Patient white count is 8.08, creatinine 0.65 blood culture negative Objective - Vital Signs Vital signs: Vital Signs Temp 98.0 F 08/10/24 15:21 Pulse 75 08/10/24 15:21 Resp 16 08/10/24 15:21 BP 102/65 08/10/24 15:21 Pulse Ox 97 08/10/24 15:21 FiO2 40 08/07/24 08:11 Intake & Output 08/09/24 08/10/24 08/10/24 18:59 06:59 18:59 Intake Total 630 20 590 Output Total 1300 1800 900 Balance -670 -1780 -310 Weight 77 kg Intake: IV 210 20 350 Invasive Line 4 10 20 Levofloxacin 750Mg-D5w 150 Pmx 750 mg In Dextrose/ Water 1 150ml.bag @ 100 mls/hr IVPB Q24H [facility] Rx#: [id number] Piperacillin-Tazobactam 3 200 200 .375 gm In Sodium Chloride 0.9% 100 ml @ 25 mls/hr IVPB Q8H [facility] Rx#: [id number] Intake, IV Titration 240 Amount Sodium Chloride 0.9% 1, 240 000 ml @ 20 mls/hr IV . Q24H [facility] Rx#:[id number] Oral 420 Output: Urine 1300 1800 900 Straight 400 Other: Voiding Method Indwelling Catheter Indwelling Catheter Indwelling Catheter - Exam GENERAL DESCRIPTION: Middle-age female lying in bed in no distress RESPIRATORY SYSTEM: Unlabored breathing , decreased breath sounds at bases HEART: S1 S2 regular rate and rhythm , ABDOMEN: Soft , no tenderness EXTREMITIES: Bilateral heel wounds are currently dressed - Labs CBC & Chem 7: 08/10/24 06:29 08/10/24 06:29 Labs: Abnormal Lab Results - Last 24 Hours (Table) 08/09/24 08/10/24 08/10/24 Range/Units 19:34 05:32 06:29 RBC 3.14 L (4.10-5.20) 10*6/uL Hgb 8.6 L (12.0-15.0) g/dL Hct 27.1 L (37.2-46.3) % MCHC 31.7 L (32.0-37.0) g/dL Immature Gran # 0.05 H (0.00-0.04) 10*3/uL Eosinophils # 0.00 L (0.04-0.35) 10*3/uL Glucose (74-99) mg/dL POC Glucose (mg/dL) 141 H 112 H (70-110) mg/dL Calcium (8.4-10.2) mg/dL 08/10/24 08/10/24 Range/Units 06:29 11:51 RBC (4.10-5.20) 10*6/uL Hgb (12.0-15.0) g/dL Hct (37.2-46.3) % MCHC (32.0-37.0) g/dL Immature Gran # (0.00-0.04) 10*3/uL Eosinophils # (0.04-0.35) 10*3/uL Glucose 102 H (74-99) mg/dL POC Glucose (mg/dL) 131 H (70-110) mg/dL Calcium 7.6 L (8.4-10.2) mg/dL Microbiology - Last 24 Hours (Table) 08/04/24 02:13 Blood Culture - Final Blood Assessment and Plan (1) Pneumonia Current Visit: Yes Status: Acute Code(s): J18.9 - PNEUMONIA, UNSPECIFIED ORGANISM SNOMED Code(s): 396421455 (2) Sepsis Current Visit: Yes Status: Acute Code(s): A41.9 - SEPSIS, UNSPECIFIED ORGANISM SNOMED Code(s): 81065071 (3) Pressure ulcer, heel, right, unstageable Current Visit: No Status: Acute Code(s): L89.610 - PRESSURE ULCER OF RIGHT HEEL, UNSTAGEABLE SNOMED Code(s): 31803487661437771 Plan: 1patient presented to the hospital with sepsis in this patient who did have a fever tachycardia elevated white count meeting criteria for SIRS/sepsis with evidence of diffuse multifocal airspace opacities will need to cover for the resistant gram-negative with the likely pathogen as the patient was recently discharged from this facility and exposed to antibiotics 2blood culture remains to be negative sputum has already been collected, urine for Legionella antigen negative 3keep bilateral heel area of the pressure to prevent any worsening of the bilateral heel pressure ulcer 4-patient did have resolution of the fever and white count down normalized on Zosyn will consider short course of oral antibiotic on discharge Dictation was produced using [email or web address] dictation software. please excuse any grammatical, word or spelling errors. Time with Patient: Less than 30
[2024-08-10 16:33] LABS: Glucose,Whole Blood 113 mg/dL (70-110)
--- NOTE | 2024-08-10 16:42 | P.PN ---
Subjective Progress Note Date: 08/09/24 63-year-old female with a past medical history significant for diabetes mellitus reflux hypertension hyperlipidemia RI CVA TIA previous patient noted to have history of recurrent UTI recently discharged from this hospital after receiving treatment for UTI cystitis has been brought back to the hospital concerning for generalized weakness along with mental status changes and low oxygen patient did have a low-grade fever chest x-ray with multifocal airspace opacity probably this consultation. 08/08/2024 --Patient is seen and evaluated in ICU; the patient continues to be afebrile, the patient is on 3 L nasal cannula oxygen and breathing comfortably, the Pt denies having any chest pain or worsening cough, the patient denies having any abdominal pain no vomiting or any diarrhea has been complaining about her pain medication being inadequate. Blood work reveals WBC of 10, hemoglobin of 8.5 and platelet count of 294, sodium 135, potassium 3.9, BUN/creatinine of 11/0.71 -- urine for Legionella antigen negative blood cultures so far negative sputum not collected - chest x-ray cardiomegaly pulm vascular congestion bilateral effusion progressive in nature 08/09/2024 Patient is seen and evaluated in the intensive care unit yesterday. Is resting comfortably in bed. Currently saturating at 98% on nasal cannula, 3 L. No acute distress. She is awake and alert. Blood work reveals white count 10.9, hemoglobin 8.9, hematocrit 27.6, platelet count is normal. Sodium 136, potassium 4.3, chlorides 105, CO2 26, BUN 10, and creatinine 0.58. Calcium is 7.4. Microbiology is currently negative. No chest x-ray today. Patient has been transferred out of ICU; cardiology recommending to decrease amiodarone to 200 mg daily; patient remains on Lipitor, Plavix and cilostazol; fenofibrate was discontinued; cardiology recommending Farxiga 10 mg daily and Aldactone 12.5 mg Objective - Vital Signs Vital signs: Vital Signs Temp 98.4 F 08/09/24 09:15 Pulse 80 08/09/24 09:15 Resp 18 08/09/24 09:15 BP 113/78 08/09/24 09:15 Pulse Ox 98 08/09/24 09:15 FiO2 40 08/07/24 08:11 Intake & Output 08/08/24 08/09/24 08/09/24 18:59 06:59 18:59 Intake Total 980 180 Output Total 720 1280 400 Balance 260 -1280 -220 Weight 83 kg Intake: IV 400 Magnesium Sulfate-D5w Pmx 300 1 gm In Dextrose/Water 1 100ml.bag @ 100 mls/hr IVPB Q1H [facility] Rx#: [id number] Piperacillin-Tazobactam 3 100 .375 gm In Sodium Chloride 0.9% 100 ml @ 25 mls/hr IVPB Q8H [facility] Rx#: [id number] Oral 580 180 Output: Urine 720 1280 400 Straight 400 Other: Voiding Method Indwelling Catheter Indwelling Catheter Indwelling Catheter - Exam No acute distress, oriented 3. Patient continues on 3 L nasal cannula. HEENT examination is grossly unremarkable. Mucous membranes are moist. No oral lesions. Neck supple. Full range of motion. No adenopathy thyromegaly or neck vein distention. Cardiovascular examination reveals regular rhythm rate. S1-S2 normal. No S3 or S4. No discernible murmur noted. Lungs reveal clear breath sounds. Breath sounds are equal bilaterally. No adventitious lung sounds including wheezes rhonchi or crackles. Abdomen soft bowel sounds are heard. No masses or tenderness. Extremities are intact. No cyanosis clubbing or edema. Toe amputations noted. Skin is without rash or lesion. Neurologic examination is brief but nonfocal. - Labs CBC & Chem 7: 08/10/24 06:29 08/10/24 06:29 Labs: Abnormal Lab Results - Last 24 Hours (Table) 08/08/24 08/08/24 08/08/24 Range/Units 11:36 16:17 16:19 WBC (4.50-10.00) 10*3/uL RBC (4.10-5.20) 10*6/uL Hgb (12.0-15.0) g/dL Hct (37.2-46.3) % Immature Gran # (0.00-0.04) 10*3/uL Neutrophils # (1.80-7.70) 10*3/uL Sodium (137-145) mmol/L POC Glucose (mg/dL) 150 H 210 H 193 H (70-110) mg/dL Calcium (8.4-10.2) mg/dL 08/08/24 08/09/24 08/09/24 Range/Units 20:04 05:53 05:53 WBC 10.93 H (4.50-10.00) 10*3/uL RBC 3.22 L (4.10-5.20) 10*6/uL Hgb 8.9 L (12.0-15.0) g/dL Hct 27.6 L (37.2-46.3) % Immature Gran # 0.10 H (0.00-0.04) 10*3/uL Neutrophils # 8.19 H (1.80-7.70) 10*3/uL Sodium 136 L (137-145) mmol/L POC Glucose (mg/dL) 155 H (70-110) mg/dL Calcium 7.4 L (8.4-10.2) mg/dL Assessment and Plan Assessment: 1. Acute hypoxemic respiratory failure, secondary to pneumonia -- Patient is currently on O2 per nasal cannula after initially being on BiPAP; we will continue to titrate or wean FiO2 keeping O2 saturation above 92% 2. Acute supraventricular tachycardia; patient initially treated with IV amiodarone; has been transition to oral amiodarone at this point; cardiology on board. 3. Hypotension, consider sepsis/septic shock/pneumonia -- Patient remains on IV antibiotics in the form of Levaquin and Zosyn - ID on board 3. Acute kidney injury; resolved. 4. Elevated troponins rule out non-ST elevation RI; cardiology has continued home cardiac medications; Imdur is added; recommending ischemia workup once patient has recovered from acute illness. 5. History of hypertension; currently being treated for hypotension related to septic shock. 6. History of hyperlipidemia; Lipitor 80 mg daily. 7. Diabetes mellitus type 2, uncontrolled; monitor Accu-Cheks before every meal and at bedtime with insulin sliding scale. 8. History of coronary artery disease with previous PCI/stents. 9. History of peripheral vascular disease; patient remains on Lipitor and Plavix. -- History of left foot transmetatarsal amputation. 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 DVT prophylaxis; SCDs/subcu heparin CODE STATUS; full code
--- NOTE | 2024-08-10 16:45 | P.PN ---
Subjective Progress Note Date: 08/10/24 63-year-old female with a past medical history significant for diabetes mellitus reflux hypertension hyperlipidemia SD CVA TIA previous patient noted to have history of recurrent UTI recently discharged from this hospital after receiving treatment for UTI cystitis has been brought back to the hospital concerning for generalized weakness along with mental status changes and low oxygen patient did have a low-grade fever chest x-ray with multifocal airspace opacity probably this consultation. 08/08/2024 --Patient is seen and evaluated in ICU; the patient continues to be afebrile, the patient is on 3 L nasal cannula oxygen and breathing comfortably, the Pt denies having any chest pain or worsening cough, the patient denies having any abdominal pain no vomiting or any diarrhea has been complaining about her pain medication being inadequate. Blood work reveals WBC of 10, hemoglobin of 8.5 and platelet count of 294, sodium 135, potassium 3.9, BUN/creatinine of 11/0.71 -- urine for Legionella antigen negative blood cultures so far negative sputum not collected - chest x-ray cardiomegaly pulm vascular congestion bilateral effusion progressive in nature 08/09/2024 Patient is seen and evaluated in the intensive care unit yesterday. Is resting comfortably in bed. Currently saturating at 98% on nasal cannula, 3 L. No acute distress. She is awake and alert. Blood work reveals white count 10.9, hemoglobin 8.9, hematocrit 27.6, platelet count is normal. Sodium 136, potassium 4.3, chlorides 105, CO2 26, BUN 10, and creatinine 0.58. Calcium is 7.4. Microbiology is currently negative. No chest x-ray today. Patient has been transferred out of ICU; cardiology recommending to decrease amiodarone to 200 mg daily; patient remains on Lipitor, Plavix and cilostazol; fenofibrate was discontinued; cardiology recommending Farxiga 10 mg daily and Aldactone 12.5 mg 08/10/2024 Patient is seen and evaluated and discussed with nursing staff; received IM Zyprexa for agitation and anxiety last; patient is sleepy but arousable - Vital signs reviewed afebrile patient is currently on 3 L goal oxygen admiss ion breathing comfortably Patient white count is 8.08, creatinine 0.65 blood culture negative patient presented to the hospital with sepsis in this patient who did have a fever tachycardia elevated white count meeting criteria for SIRS/sepsis with evidence of diffuse multifocal airspace opacities will need to cover for the resistant gram-negative with the likely pathogen as the patient was recently discharged from this facility and exposed to antibiotics blood culture remains to be negative sputum has already been collected, urine for Legionella antigen negative keep bilateral heel area of the pressure to prevent any worsening of the bilateral heel pressure ulcer -patient did have resolution of the fever and white count down normalized on Zosyn will consider short course of oral antibiotic on discharge Objective - Vital Signs Vital signs: Vital Signs Temp 98.2 F 08/10/24 09:59 Pulse 71 08/10/24 09:59 Resp 16 08/10/24 09:59 BP 81/47 08/10/24 09:59 Pulse Ox 96 08/10/24 09:59 FiO2 40 08/07/24 08:11 Intake & Output 08/09/24 08/10/24 08/10/24 18:59 06:59 18:59 Intake Total 630 20 Output Total 1300 1800 Balance -670 -1780 Weight 77 kg Intake: IV 210 20 Invasive Line 4 10 20 Piperacillin-Tazobactam 3 200 .375 gm In Sodium Chloride 0.9% 100 ml @ 25 mls/hr IVPB Q8H [facility] Rx#: [id number] Oral 420 Output: Urine 1300 1800 Straight 400 Other: Voiding Method Indwelling Catheter Indwelling Catheter Indwelling Catheter - Exam No acute distress, oriented 3. Patient continues on 3 L nasal cannula. HEENT examination is grossly unremarkable. Mucous membranes are moist. No oral lesions. Neck supple. Full range of motion. No adenopathy thyromegaly or neck vein distention. Cardiovascular examination reveals regular rhythm rate. S1-S2 normal. No S3 or S4. No discernible murmur noted. Lungs reveal clear breath sounds. Breath sounds are equal bilaterally. No adventitious lung sounds including wheezes rhonchi or crackles. Abdomen soft bowel sounds are heard. No masses or tenderness. Extremities are intact. No cyanosis clubbing or edema. Toe amputations noted. Skin is without rash or lesion. Neurologic examination is brief but nonfocal. - Labs CBC & Chem 7: 08/10/24 06:29 08/10/24 06:29 Labs: Abnormal Lab Results - Last 24 Hours (Table) 08/09/24 08/09/24 08/09/24 Range/Units 11:19 16:10 19:34 RBC (4.10-5.20) 10*6/uL Hgb (12.0-15.0) g/dL Hct (37.2-46.3) % MCHC (32.0-37.0) g/dL Immature Gran # (0.00-0.04) 10*3/uL Eosinophils # (0.04-0.35) 10*3/uL Glucose (74-99) mg/dL POC Glucose (mg/dL) 170 H 138 H 141 H (70-110) mg/dL Calcium (8.4-10.2) mg/dL 08/10/24 08/10/24 08/10/24 Range/Units 05:32 06:29 06:29 RBC 3.14 L (4.10-5.20) 10*6/uL Hgb 8.6 L (12.0-15.0) g/dL Hct 27.1 L (37.2-46.3) % MCHC 31.7 L (32.0-37.0) g/dL Immature Gran # 0.05 H (0.00-0.04) 10*3/uL Eosinophils # 0.00 L (0.04-0.35) 10*3/uL Glucose 102 H (74-99) mg/dL POC Glucose (mg/dL) 112 H (70-110) mg/dL Calcium 7.6 L (8.4-10.2) mg/dL Microbiology - Last 24 Hours (Table) 08/04/24 02:13 Blood Culture - Final Blood Assessment and Plan Assessment: 1. Acute hypoxemic respiratory failure, secondary to pneumonia -- Patient is currently on O2 per nasal cannula after initially being on BiPAP; we will continue to titrate or wean FiO2 keeping O2 saturation above 92% 2. Acute supraventricular tachycardia; patient initially treated with IV amiodarone; has been transition to oral amiodarone at this point; cardiology on board. 3. Hypotension, consider sepsis/septic shock/pneumonia -- Patient remains on IV antibiotics in the form of Levaquin and Zosyn - ID on board 3. Acute kidney injury; resolved. 4. Elevated troponins rule out non-ST elevation SD; cardiology has continued home cardiac medications; Imdur is added; recommending ischemia workup once patient has recovered from acute illness. 5. History of hypertension; currently being treated for hypotension related to septic shock. 6. History of hyperlipidemia; Lipitor 80 mg daily. 7. Diabetes mellitus type 2, uncontrolled; monitor Accu-Cheks before every meal and at bedtime with insulin sliding scale. 8. History of coronary artery disease with previous PCI/stents. 9. History of peripheral vascular disease; patient remains on Lipitor and Plavix. -- History of left foot transmetatarsal amputation. 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 DVT prophylaxis; SCDs/subcu heparin CODE STATUS; full code
--- NOTE | 2024-08-10 16:47 | P.PN ---
Subjective Progress Note Date: 08/10/24 This is a 63-year-old female patient of Dr. Lock with past medical history of coronary artery disease with prior triple-vessel stenting as well as lower extremity PAD status post stenting of bilateral iliac and bilateral SFA, carotid atherosclerosis with history of stroke, diabetes, hypertension, dyslipidemia and tobacco use and dependence. We have been asked to evaluate the patient for CHF. Patient states that she came into the hospital due to weakness. Her story is very difficult to follow. Patient was recently hospitalized 07/22 - 08/01 at which time she was treated for complicated urinary tract infection as well as a right heel unstageable pressure ulcer, small bowel ileus. Patient was discharged to home with home care in place. According to the ER notes, patient returned due to shortness of breath with a low pulse ox and altered mental status. Patient initially was started on BiPAP and has been transition to nasal cannula at 2 L. Patient has been started on nebulizer treatments and IV antibiotics. She states she is feeling better now since she came into the hospital. She is not sure what helped make her feel better. Blood pressure 102/64, heart rate 79, pulse ox 97% on 2 L nasal cannula. Patient had presented with a temperature max of 100.3, heart rate 139, respiratory rate 40, blood pressure 84/52. She is status post 3 L of IV fluid bolus, magnesium replacement, multiple doses of insulin, Tylenol and ibuprofen as well as Xanax and Ativan -EKG: Sinus tachycardia 135 bpm -Chest x-ray: #1 multifocal airspace opacities concerning for pneumonia. #2 correlate for pulmonary edema. Pneumonia and atypical pneumonia could be considered. -Laboratory studies: WBC 19.3 now 11.4. Hemoglobin 10.5. Sodium 137, potassium 3.3, BUN 25 creatinine 1.17. Blood sugar in the 400s. Lactic acid 3.3. Troponin 0.376. proBNP 12,900. Urinalysis positive for urinary tract infect ion. Cepheid viral panel not detected. -Home cardiac medications: Aspirin 81 mg twice daily, atorvastatin 80 mg at bedtime, Plavix 75 mg daily. -Lexiscan Cardiolite from 2019 was nondiagnostic electrocardiogram stress testing response to Lexiscan. Probably normal myocardial perfusion imaging. No evidence of stress-induced ischemia. Normal left ventricular systolic function. -Echocardiogram performed in the office in 2017-revealed EF 55%, mild concentric hypertrophy. Trace aortic regurgitation. Mild tricuspid regurgitation. 08/05/2024 Patient seen and examined on the cardiac stepdown unit. Patient states that she is not feeling better since she came into the hospital. She states she is so weak. Blood cultures are status received. Temperature max 102.2. Blood pressure 98/49, heart rate 106, pulse ox 90% on 3 L nasal cannula. Repeat blood work reveals WBC 9.7, hemoglobin 8.8. Potassium 3.6, BUN 18 creatinine 1.14. Hemoglobin A 1C is 9.4. Echocardiogram has been obtained and report is pending 08/06/2024 Patient seen and examined. Heart rate 90-102, blood pressure 102/92, pulse ox 99% on 3 L nasal cannula. No repeat blood work today. Blood culture reveals no growth at 48 hours. Echocardiogram reveals EF 35% inferior inferior lateral and anterior lateral hypokinesis. Mild mitral regurgitation. Somewhat mobile hypodensity of the aortic valve with possible vegetation. Consider PATRICIA if clinically indicated. No aortic regurgitation. Mild tricuspid regurgitation. No pericardial effusion. 08/09/2024 No new cardiovascular symptoms BP 101/66, heart rate 80 bpm Hb 9, BUN 12, creatinine 0.6 08/10/2024 Yesterday patient got delirious BP 102/65, heart rate 75 Hb 8.6, BUN 11, creatinine 0.6 Appears euvolemic, denies any chest pain chest pressure shortness of breath Physical examination: HEENT: Head is atraumatic, normocephalic. Pupils equal, round. Sclerae is a nicteric. NECK: Supple. No JVD. LUNGS: Clear to auscultation. No wheezes or rhonchi. No crackles. No intercostal retractions. HEART: Regular rate and rhythm. No murmur. ABDOMEN: Soft No tenderness. EXTREMITIES: Mild bilateral lower extremity edema. No calf tenderness. NEUROLOGICAL: Patient is awake, alert and oriented to person. Assessment: Paroxysmal SVT HFrEF, EF 35%, likely ischemic cardiomyopathy , not in exacerbation. New worsened LVEF when compared to echo from 2017. Acute hypoxic respiratory failure initially on BiPAP, transitioned to nasal cannula Pneumonia with sepsis Urinary retention and Bilateral hydronephrosis on recent hospitalization Coronary artery disease with prior triple-vessel stenting, with residual 50% in- stent stenosis in RCA stent. Lower extremity PAD status post stenting of the bilateral iliac and bilateral SFA Carotid atherosclerosis with History of stroke Diabetes mellitus type II uncontrolled with hyperglycemia, A1c 9.4 Hypertension, Dyslipidemia Tobacco use and dependence Anemia, new onset Plan: Continue 200 mg daily Continue Lipitor 80 mg, cilostazol 100 mg twice daily, Plavix 75 minutes daily, discontinue fenofibrate to reduce chances of myopathy Start Farxiga 10 mg daily, Aldactone 12.5 mg daily, metoprolol succinate 12.5 mg daily, losartan 12.5 mg daily. Patient is cleared from cardiovascular standpoint. She needs close outpatient follow-up with Dr. Cruz for ischemic evaluation for new drop in LVEF. Consider outpatient cardiac catheterization new drop in LVEF with wall motion abnormality. Smoking cessation: Patient will be provided the [employer] quit line information at discharge Objective - Vital Signs Vital signs: Vital Signs Temp 98.0 F 08/10/24 15:21 Pulse 75 08/10/24 15:21 Resp 16 08/10/24 15:21 BP 102/65 08/10/24 15:21 Pulse Ox 97 08/10/24 15:21 FiO2 40 08/07/24 08:11 Intake & Output 08/09/24 08/10/24 08/10/24 18:59 06:59 18:59 Intake Total 630 20 590 Output Total 1300 1800 900 Balance -670 -1780 -310 Weight 77 kg Intake: IV 210 20 350 Invasive Line 4 10 20 Levofloxacin 750Mg-D5w 150 Pmx 750 mg In Dextrose/ Water 1 150ml.bag @ 100 mls/hr IVPB Q24H [facility] Rx#: [id number] Piperacillin-Tazobactam 3 200 200 .375 gm In Sodium Chloride 0.9% 100 ml @ 25 mls/hr IVPB Q8H [facility] Rx#: [id number] Intake, IV Titration 240 Amount Sodium Chloride 0.9% 1, 240 000 ml @ 20 mls/hr IV . Q24H [facility] Rx#:[id number] Oral 420 Output: Urine 1300 1800 900 Straight 400 Other: Voiding Method Indwelling Catheter Indwelling Catheter Indwelling Catheter - Labs CBC & Chem 7: 08/10/24 06:29 08/10/24 06:29 Labs: Abnormal Lab Results - Last 24 Hours (Table) 08/09/24 08/10/24 08/10/24 Range/Units 19:34 05:32 06:29 RBC 3.14 L (4.10-5.20) 10*6/uL Hgb 8.6 L (12.0-15.0) g/dL Hct 27.1 L (37.2-46.3) % MCHC 31.7 L (32.0-37.0) g/dL Immature Gran # 0.05 H (0.00-0.04) 10*3/uL Eosinophils # 0.00 L (0.04-0.35) 10*3/uL Glucose (74-99) mg/dL POC Glucose (mg/dL) 141 H 112 H (70-110) mg/dL Calcium (8.4-10.2) mg/dL 08/10/24 08/10/24 08/10/24 Range/Units 06:29 11:51 16:31 RBC (4.10-5.20) 10*6/uL Hgb (12.0-15.0) g/dL Hct (37.2-46.3) % MCHC (32.0-37.0) g/dL Immature Gran # (0.00-0.04) 10*3/uL Eosinophils # (0.04-0.35) 10*3/uL Glucose 102 H (74-99) mg/dL POC Glucose (mg/dL) 131 H 113 H (70-110) mg/dL Calcium 7.6 L (8.4-10.2) mg/dL Microbiology - Last 24 Hours (Table) 08/04/24 02:13 Blood Culture - Final Blood
[2024-08-10] MEDS ORDERED: OLANZapine 10 MG VIAL IM PRN (17:14)
[2024-08-10 19:59] LABS: Glucose,Whole Blood 95 mg/dL (70-110)
[2024-08-10] MEDS ORDERED: AMIODARONE 200 MG TAB PO SCH (21:00)
[2024-08-11 06:09] LABS: Glucose,Whole Blood 165 mg/dL (70-110)
[2024-08-11 11:35] LABS: Glucose,Whole Blood 119 mg/dL (70-110)
--- NOTE | 2024-08-11 13:37 | XR ---
EXAMINATION TYPE: XR chest 1V portable DATE OF EXAM: 08/11/2024 1:26 PM COMPARISON: 08/08/2024 CLINICAL INDICATION: Female, 63 years old with history of SOB, , FINDINGS: Heart upper limits of normal in size. Spinal stimulator array centered along the mid to lower thoraci c spinal canal. Retrocardiac density and additional hazy left basilar opacity persists. Improving aer ation at the right base. Residual mild interstitial density but also improved from prior. IMPRESSION: 1. Correlate for improving CHF with residual mild pulmonary vascular congestion. 2. Residual small left pleural effusion with adjacent atelectasis and/or consolidation. The effusion and opacity at the right base has largely resolved. [facility], , 08/11/2024 1:34 PM
--- NOTE | 2024-08-11 13:41 | XR ---
EXAMINATION TYPE: XR abdomen 1V DATE OF EXAM: 08/11/2024 1:27 PM COMPARISON: 08/07/2024 CLINICAL INDICATION: Female, 63 years old with history of distention; PHH, pain TECHNIQUE: One radiographic view of the abdomen was obtained. FINDINGS: Chest reported separately. Cholecystectomy clips. Generator device projecting at the left flank. Cholecystectomy clips. Lumbosacral fusion hardware. Ga seous distention is suggested. Additional gassy colon in the right side of the abdomen. The lower abd omen and pelvis. Mottled densities projecting at the left upper quadrant likely residual contrast mat erial dependent within the stomach. Bilateral iliac vessel stents. IMPRESSION: Prominent gassy distended stomach and colon but with overall nonobstructive bowel gas pattern. Consid er an ileus. [facility], , 08/11/2024 1:39 PM
[2024-08-11] MEDS: FUROSEMIDE 10 MG/ML 2 ML VIAL IV SCH (15:28)
[2024-08-11 16:32] LABS: Glucose,Whole Blood 189 mg/dL (70-110)
--- NOTE | 2024-08-11 17:53 | P.PN ---
Subjective Progress Note Date: 08/11/24 Patient is a 63 female with past medical history significant for hypertension, hyperlipidemia, diabetes mellitus type 2, coronary disease with previous PCI/stents, peripheral vascular disease, left foot metatarsal amputation as well as right fourth-fifth toe amputation. Of note, patient recently hospitalized May, with left hip fracture. CT of the left hip showing a nondisplaced oblique fracture through the superior corner of the left greater trochanter. Did return to the hospital 07/22/2024 with abdominal pain. Thought to possible have a urinary tract infection. Abdominal/pelvis CT remarkable for bilateral hydronephrosis, right greater than left, bladder wall thickening, and small bowel ileus. Incidental findings of bilateral pleural effusions and compressive atelectasis. Patient was discharged on 08/01/2024. Patient returns to the emergency department 2 days later complaining of increased weakness, fevers, and shortness of breath. She was placed on BiPAP initially in the ED. She was also noted to be hypotensive and has been fluid resuscitated with a total of 3 L of crystalloid fluid so far. Febrile with a temperature of 100.3 F. Workup including a chest x-ray showing multifocal airspace opacities concerning for pneumonia. Denies any coughing, sputum production, hemoptysis, chest pain. Denies any history of heart failure. Denies any lower extremity edema. Denies any she denies any dysuria, frequency, hematuria, suprapubic pain or flank pain. She is retaining urine and a bedside bladder scan showed 850 cc of urine in the bladder. Labs including a CBC with a WBC count of 19.4, hemoglobin 13, platelets 681. CMP: Sodium 131, potassium 4.3, chloride 100, serum bicarb 18, BUN 22, creatinine 1.36, glucose 389. Lactic was 2.7 is down to 2.5. LFTs not elevated. Troponin was 0.376. NT proBNP significantly elevated at 12,900. Patient currently being evaluated in the emergency department. She is on BiPAP with settings 14/6 and FiO2 40%. SpO2 reading 100% on bedside monitor. She does not appear to be any respiratory distress. Talking complete sentences. No accessory muscle use. She was easily transitioned to nasal cannula. Blood pressure currently 100/66 mmHg. She was empirically placed on a combination of Levaquin and Zosyn in the ED. Currently afebrile. The patient is seen today August 05, 2024 in follow-up on the selective care unit. She is currently resting in bed. Awake and alert in no acute distress. Maintaining O2 saturations in the 90s on 3 L/min per nasal cannula. She is afebrile. Hemodynamically stable. Chest x-ray reveals increased diffuse lung markings bilaterally. Urine culture positive for Chrissy. Blood culture pending. White count 9.7. Hemoglobin 8.8. Platelets 427. Sodium 140. Potassium 3.6. Bicarb 19. BUN 18. Creatinine 1.14. Glucose 189. Procalcitonin 21.6. She remains on DuoNeb inhalations, antibiotics in the form of Zosyn and Levaquin. Initiated on Diflucan. Heparin for DVT prophylaxis. Progress note dated August 06, 2024. The patient is seen today in room 372. She is currently resting in bed. She is awake and alert. No acute distress. The patient continues on 2 L nasal O2. She is getting saline at 75 cc an hour. She is hemodynamically stable. No new labs today other than a glucose of 201. Urine was positive for Chrissy. No new x-ray to report. The patient continues on fluconazole, Levaquin, and Zosyn. Progress note dated August 07, 2024. 63-year-old female who was transferred to the intensive care unit, at about 11 PM last night. She came in because of supraventricular tachycardia. She was moved over by my nurse practitioner. She is seen today in room 261. She is on 3 L nasal O2. She is getting saline at 75 cc an hour, and amiodarone 0.5 mg/min. She came into the intensive care unit, at 11 PM. She has been on BiPAP, at 14/6, 40%, for 6 hours. Current labs include a white count of 12.4, hemoglobin 9, hematocrit 27.9, platelet count 331,000. Sodium 134, potassium 3.7, chloride 102, CO2 23, anion gap 9, BUN 12, creatinine 0.63. Glucose 297. Calcium 7. Magnesium 1.3. Albumin 2.2. Urine culture was positive for Chrissy albicans. Chest x-ray shows an improved right lower lobe infiltrate, and possible mild fluid overload. Progress note dated August 08, 2024. 63-year-old female seen today in room 261. She is currently on 3 L of oxygen. She is getting saline at 75 cc an hour. Yesterday she was on IV amiodarone. Now she is on p.o. amiodarone. Clinically, she is doing well. Her major complaint is pain. She is also having some issues with insomnia. Anyway, I mention to her that she should talk to her hospital doctor about those 2 issues. Current labs include a white count of 10.0, hemoglobin 8.5, hematocrit 26.5, platelet count of 2 94,000. Sodium 135, potassium 3.9, chlorides 103, CO2 27, BUN 11, creatinine 0.71. Glucose is 150. Calcium is 7. Albumin is 2.1. Chest x-ray shows cardiomegaly, with pulmonary venous congestion. Progress note dated August 09, 2024. 63-year-old female seen today in room 353. She was in the intensive care unit yesterday. Is resting comfortably in bed. She is on saline at 75 cc an hour, and receiving nasal cannula, 3 L. No acute distress. She is awake and alert. White count 10.9, hemoglobin 8.9, hematocrit 27.6, platelet count is normal. Sodium 136, potassium 4.3, chlorides 105, CO2 26, BUN 10, and creatinine 0.58. Calcium is 7.4. Microbiology is currently negative. No chest x-ray today. Progress note dated August 10, 2024. 63-year-old female seen today in room 353. The patient is currently getting saline at 20 cc an hour. He is getting nasal oxygen, 3 L, O2 saturation 98%. She is in no acute distress. She is resting comfortably in bed. Her procalcitonin level was 21.6. White count 8.1, hemoglobin 8.6, hematocrit 27.1, platelet count 330,000. Sodium 137, potassium 3.8, chlorides 105, CO2 28, BUN 11, creatinine 0.65. Glucose is 102. Calcium is 7.6. On 08/11/2024, the patient is being seen for a follow-up. The patient is currently on 2 L of oxygen by nasal cannula. She is diuresing well and the patient remains in negative fluid balance. Over the past 48 hours, the patient had 2.4 L negative fluid balance and another 2 L negative fluid balance and she reports improvement lower extremity edema. Her echocardiogram shows an ejection fraction of 35% with questionable vegetation involving the aortic valve. Nevertheless, the patient's blood cultures been negative. IV fluids are currently at KVO. Ragland catheter is in place. Cardiac rhythm is sinus. The patient does have some increased abdominal tympany and distention. Nevertheless, she reports flatus and bowel movement activity. Chest x-ray shows improvement in CHF with mild residual pulm vessel congestion. Small left-sided pleural effusion is still present. The patient also had an abdominal x-ray and there is gas/distended stomach and colon but overall picture is nonobstructive. Possibility of underlying ileus cannot be completely ruled out. The white cell count is at 8 with a hemoglobin 8.6 and a platelet count of 330. Electrolytes are normal, BUN is 11 with a creatinine of 0.6. Objective - Vital Signs Vital signs: Vital Signs Temp 98.1 F 08/11/24 08:00 Pulse 80 08/11/24 12:00 Resp 16 08/11/24 12:00 BP 89/57 08/11/24 12:00 Pulse Ox 99 08/11/24 12:00 FiO2 40 08/07/24 08:11 Intake & Output 08/10/24 08/11/24 08/11/24 18:59 06:59 18:59 Intake Total 1382 180 Output Total 900 2750 1200 Balance 072 -9189 -1200 Weight 83.9 kg Intake: IV 350 Levofloxacin 750Mg-D5w 150 Pmx 750 mg In Dextrose/ Water 1 150ml.bag @ 100 mls/hr IVPB Q24H [facility] Rx#: [id number] Piperacillin-Tazobactam 3 200 .375 gm In Sodium Chloride 0.9% 100 ml @ 25 mls/hr IVPB Q8H [facility] Rx#: [id number] Intake, IV Titration 630 Amount Levofloxacin 750Mg-D5w 150 Pmx 750 mg In Dextrose/ Water 1 150ml.bag @ 100 mls/hr IVPB Q48H [facility] Rx#: [id number] Sodium Chloride 0.9% 1, 480 000 ml @ 20 mls/hr IV . Q24H [facility] Rx#:[id number] Oral 402 180 Output: Urine 900 2750 1200 Other: Voiding Method Indwelling Catheter Indwelling Catheter Indwelling Catheter # Bowel Movements 1 - Exam No acute distress, oriented 3. Patient continues on 2 L nasal cannula. HEENT examination is grossly unremarkable. Mucous membranes are moist. No oral lesions. Neck supple. Full range of motion. No adenopathy thyromegaly or neck vein distention. Cardiovascular examination reveals regular rhythm rate. S1-S2 normal. No S3 or S4. No discernible murmur noted. Lungs reveal clear breath sounds. Breath sounds are equal bilaterally. No adventitious lung sounds including wheezes rhonchi or crackles. Abdomen soft bowel sounds are heard. No masses or tenderness. The abdomen is distended and the patient is tympanic to percussion. Bowel sounds are hypoactive. Extremities are intact. No cyanosis clubbing or edema. Toe amputations noted. Skin is without rash or lesion. Neurologic examination is brief but nonfocal. - Labs CBC & Chem 7: 08/10/24 06:29 08/10/24 06:29 Labs: Abnormal Lab Results - Last 24 Hours (Table) 08/10/24 08/11/24 08/11/24 Range/Units 16:31 06:07 11:31 POC Glucose (mg/dL) 113 H 165 H 119 H (70-110) mg/dL Assessment and Plan Plan: Acute hypoxemic respiratory failure, essentially secondary to CHF and volume overload. The patient is negative fluid balance in the repeat chest x-ray shows improvement in volume status and there is some residual CHF with mild pulm vascular congestion and small left-sided pleural effusion still present on today's chest x-ray. Clinically the patient is gradually improving and the patient is currently on 3 L of oxygen by nasal cannula. Systolic heart failure, chronic, Echocardiogram was noted and the patient has an ejection fraction of 35% with questionable vegetation involving the aortic valve. No significant valve heart disease and the patient has segmental wall motion abnormality involving the inferior, anterolateral and anterior lateral hypokinesis. Hypotension, recovered and the patient is currently normotensive. Acute febrile illness, recovered and the patient is currently afebrile Acute leukocytosis, improved Urinary retention, has a Ragland catheter in place with adequate urine output Acute kidney injury, improved Coronary artery disease with previous PCI. The patient had elevated troponins rule out non-ST elevation [place]. History of hypertension. History of hyperlipidemia. Diabetes mellitus type 2, uncontrolled. History of peripheral vascular disease. History of left foot transmetatarsal amputation. History of right 4th and 5th toe amputation on the right. History of nondisplaced oblique fracture of the left greater trochanter. Currently undergoing tobacco dependence. Plan: Titrate oxygen flow to maintain saturation above 90%, currently on 3 L of O2 nasal cannula Continue diuretics and patient was placed on 20 mg of IV Lasix every 12 hours Continue Aldactone 12.5 mg p.o. daily Chest x-ray findings are improving The patient has an abdominal ileus that needs to be further monitored Continue Toprol-XL 12.5 mg p.o. daily Imdur 50 mg p.o. daily Farxiga 10 mg p.o. daily Amiodarone 200 mg p.o. daily continue bronchodilators With DuoNeb Continue Plavix Continue high-dose statins Will continue to follow and make further recommendations based on the progress. Time with Patient: Greater than 30
[2024-08-11 19:56] LABS: Glucose,Whole Blood 170 mg/dL (70-110)
[2024-08-12] MEDS: ONDANSETRON 4 MG/2 ML VIAL IVP PRN (03:09)
[2024-08-12 06:05] LABS: Glucose,Whole Blood 139 mg/dL (70-110)
[2024-08-12 11:11] LABS: Glucose,Whole Blood 134 mg/dL (70-110)
[2024-08-12 11:16] LABS: Glucose,Whole Blood 148 mg/dL (70-110)
[2024-08-12 16:20] LABS: Glucose,Whole Blood 136 mg/dL (70-110)
--- NOTE | 2024-08-12 16:31 | P.PN ---
Subjective Progress Note Date: 08/11/24 Principal diagnosis: Reason for follow-up is fever/pneumonia Patient is a 63-year-old female with a past medical history significant for diabetes mellitus reflux hypertension hyperlipidemia [place] CVA TIA previous patient noted to have history of recurrent UTI recently discharged from this hospital after receiving treatment for UTI cystitis has been brought back to the hospital concerning for generalized weakness along with mental status changes and low oxygen patient did have a low-grade fever chest x-ray with multifocal airspace opacity probably this consultation. On today's evaluation that is 08/11/2024, patient has been afebrile, patient is breathing comfortably and is currently on 2 L nasal cannula oxygen patient denies having any chest pain and cough, patient denies nausea vomiting some abdominal distention and constipation. No new labs obtained patient white count normal as of yesterday 8.08 blood culture has been negative Objective - Vital Signs Vital signs: Vital Signs Temp 98.1 F 08/11/24 08:00 Pulse 80 08/11/24 12:00 Resp 16 08/11/24 12:00 BP 89/57 08/11/24 12:00 Pulse Ox 99 08/11/24 12:00 FiO2 40 08/07/24 08:11 Intake & Output 08/10/24 08/11/24 08/11/24 18:59 06:59 18:59 Intake Total 1382 180 Output Total 900 2750 1200 Balance 570 -3745 -1200 Weight 83.9 kg Intake: IV 350 Levofloxacin 750Mg-D5w 150 Pmx 750 mg In Dextrose/ Water 1 150ml.bag @ 100 mls/hr IVPB Q24H [facility] Rx#: [id number] Piperacillin-Tazobactam 3 200 .375 gm In Sodium Chloride 0.9% 100 ml @ 25 mls/hr IVPB Q8H [facility] Rx#: [id number] Intake, IV Titration 630 Amount Levofloxacin 750Mg-D5w 150 Pmx 750 mg In Dextrose/ Water 1 150ml.bag @ 100 mls/hr IVPB Q48H [facility] Rx#: [id number] Sodium Chloride 0.9% 1, 480 000 ml @ 20 mls/hr IV . Q24H [facility] Rx#:[id number] Oral 402 180 Output: Urine 900 2750 1200 Other: Voiding Method Indwelling Catheter Indwelling Catheter Indwelling Catheter # Bowel Movements 1 - Exam GENERAL DESCRIPTION: Middle-age female lying in bed in no distress RESPIRATORY SYSTEM: Unlabored breathing , decreased breath sounds at bases HEART: S1 S2 regular rate and rhythm , ABDOMEN: Soft , no tenderness EXTREMITIES: Bilateral heel wounds are currently dressed - Labs CBC & Chem 7: 08/10/24 06:29 08/10/24 06:29 Labs: Abnormal Lab Results - Last 24 Hours (Table) 08/10/24 08/11/24 08/11/24 Range/Units 16:31 06:07 11:31 POC Glucose (mg/dL) 113 H 165 H 119 H (70-110) mg/dL Assessment and Plan (1) Pneumonia Current Visit: Yes Status: Acute Code(s): J18.9 - PNEUMONIA, UNSPECIFIED ORGANISM SNOMED Code(s): 322010440 (2) Sepsis Current Visit: Yes Status: Acute Code(s): A41.9 - SEPSIS, UNSPECIFIED ORGA NISM SNOMED Code(s): 37139467 (3) Pressure ulcer, heel, right, unstageable Current Visit: No Status: Acute Code(s): L89.610 - PRESSURE ULCER OF RIGHT HEEL, UNSTAGEABLE SNOMED Code(s): 94255168825086422 Plan: 1patient presented to the hospital with sepsis in this patient who did have a fever tachycardia elevated white count meeting criteria for SIRS/sepsis with evidence of diffuse multifocal airspace opacities will need to cover for the resistant gram-negative with the likely pathogen as the patient was recently discharged from this facility and exposed to antibiotics 2blood culture remains to be negative sputum has already been collected, urine for Legionella antigen negative 3keep bilateral heel area of the pressure to prevent any worsening of the bilateral heel pressure ulcer 4-patient did have resolution of the fever and white count down normalized, has completed a course of Zosyn currently on Levaquin can be transitioned to p.o. on discharge Dictation was produced using [employer] dictation software. please excuse any grammatical, word or spelling errors.
--- NOTE | 2024-08-12 16:32 | P.PN ---
Subjective Progress Note Date: 08/12/24 Principal diagnosis: Reason for follow-up is fever/pneumonia Patient is a 63-year-old female with a past medical history significant for diabetes mellitus reflux hypertension hyperlipidemia [place] CVA TIA previous patient noted to have history of recurrent UTI recently discharged from this hospital after receiving treatment for UTI cystitis has been brought back to the hospital concerning for generalized weakness along with mental status changes and low oxygen patient did have a low-grade fever chest x-ray with multifocal airspace opacity probably this consultation. On today's evaluation that is 08/12/2024, Patient is afebrile this morning patient denies having any chest pain shortness of breath or any worsening cough, the patient is currently on 2 L nasal cannula oxygen patient denies any abdominal pain no diarrhea no nausea no vomiting. No new lab has been obtained today Objective - Vital Signs Vital signs: Vital Signs Temp 98.1 F 08/12/24 12:00 Pulse 74 08/12/24 14:00 Resp 16 08/12/24 14:00 BP 88/57 08/12/24 12:00 Pulse Ox 96 08/12/24 12:00 FiO2 40 08/07/24 08:11 Intake & Output 08/11/24 08/12/24 08/12/24 18:59 06:59 18:59 Intake Total 240 Output Total 2400 2825 2675 Balance -7510 -8011 -1638 Weight 79.5 kg 79.5 kg Intake: Oral 240 Output: Urine 2400 2825 2675 Other: Voiding Method Indwelling Catheter Indwelling Catheter Indwelling Catheter # Bowel Movements 1 1 - Exam GENERAL DESCRIPTION: Middle-age female lying in bed in no distress RESPIRATORY SYSTEM: Unlabored breathing , decreased breath sounds at bases HEART: S1 S2 regular rate and rhythm , ABDOMEN: Soft , no tenderness EXTREMITIES: Bilateral heel wounds are currently dressed - Labs CBC & Chem 7: 08/10/24 06:29 08/10/24 06:29 Labs: Abnormal Lab Results - Last 24 Hours (Table) 08/10/24 08/11/24 08/11/24 Range/Units 11:16 16:31 19:55 POC Glucose (mg/dL) 134 H 189 H 170 H (70-110) mg/dL 08/12/24 08/12/24 08/12/24 Range/Units 06:03 11:14 16:19 POC Glucose (mg/dL) 139 H 148 H 136 H (70-110) mg/dL Assessment and Plan (1) Pneumonia Current Visit: Yes Status: Acute Code(s): J18.9 - PNEUMONIA, UNSPECIFIED ORGANISM SNOMED Code(s): 276380050 (2) Sepsis Current Visit: Yes Status: Acute Code(s): A41.9 - SEPSIS, UNSPECIFIED ORGANISM SNOMED Code(s): 83783937 (3) Pressure ulcer, heel, right, unstageable Current Visit: No Status: Acute Code(s): L89.610 - PRESSURE ULCER OF RIGHT HEEL, UNSTAGEABLE SNOMED Code(s): 10105811788553569 Plan: 1patient presented to the hospital with sepsis in this patient who did have a fever tachycardia elevated white count meeting criteria for SIRS/sepsis with evidence of diffuse multifocal airspace opacities will need to cover for the resistant gram-negative with the likely pathogen as the patient was recently discharged from this facility and exposed to antibiotics 2blood culture remains to be negative sputum has already been collected, urine for Legionella antigen negative 3keep bilateral heel area of the pressure to prevent any worsening of the bilateral heel pressure ulcer 4-patient did have resolution of the fever and white count down normalized, 5-Pt has completed a course of Zosyn currently on Levaquin can be transitioned to p.o. on discharge short course Dictation was produced using [employer] dictation software. please excuse any grammatical, word or spelling errors. Time with Patient: Less than 30
[2024-08-12 19:57] LABS: Glucose,Whole Blood 159 mg/dL (70-110)
--- NOTE | 2024-08-12 21:16 | P.PN ---
Subjective Progress Note Date: 08/12/24 Patient is a 63 female with past medical history significant for hypertension, hyperlipidemia, diabetes mellitus type 2, coronary disease with previous PCI/stents, peripheral vascular disease, left foot metatarsal amputation as well as right fourth-fifth toe amputation. Of note, patient recently hospitalized May, with left hip fracture. CT of the left hip showing a nondisplaced oblique fracture through the superior corner of the left greater trochanter. Did return to the hospital 07/22/2024 with abdominal pain. Thought to possible have a urinary tract infection. Abdominal/pelvis CT remarkable for bilateral hydronephrosis, right greater than left, bladder wall thickening, and small bowel ileus. Incidental findings of bilateral pleural effusions and compressive atelectasis. Patient was discharged on 08/01/2024. Patient returns to the emergency department 2 days later complaining of increased weakness, fevers, and shortness of breath. She was placed on BiPAP initially in the ED. She was also noted to be hypotensive and has been fluid resuscitated with a total of 3 L of crystalloid fluid so far. Febrile with a temperature of 100.3 F. Workup including a chest x-ray showing multifocal airspace opacities concerning for pneumonia. Denies any coughing, sputum production, hemoptysis, chest pain. Denies any history of heart failure. Denies any lower extremity edema. Denies any she denies any dysuria, frequency, hematuria, suprapubic pain or flank pain. She is retaining urine and a bedside bladder scan showed 850 cc of urine in the bladder. Labs including a CBC with a WBC count of 19.4, hemoglobin 13, platelets 681. CMP: Sodium 131, potassium 4.3, chloride 100, serum bicarb 18, BUN 22, creatinine 1.36, glucose 389. Lactic was 2.7 is down to 2.5. LFTs not elevated. Troponin was 0.376. NT proBNP significantly elevated at 12,900. Patient currently being evaluated in the emergency department. She is on BiPAP with settings 14/6 and FiO2 40%. SpO2 reading 100% on bedside monitor. She does not appear to be any respiratory distress. Talking complete sentences. No accessory muscle use. She was easily transitioned to nasal cannula. Blood pressure currently 100/66 mmHg. She was empirically placed on a combination of Levaquin and Zosyn in the ED. Currently afebrile. The patient is seen today August 05, 2024 in follow-up on the selective care unit. She is currently resting in bed. Awake and alert in no acute distress. Maintaining O2 saturations in the 90s on 3 L/min per nasal cannula. She is afebrile. Hemodynamically stable. Chest x-ray reveals increased diffuse lung markings bilaterally. Urine culture positive for Chrissy. Blood culture pending. White count 9.7. Hemoglobin 8.8. Platelets 427. Sodium 140. Potassium 3.6. Bicarb 19. BUN 18. Creatinine 1.14. Glucose 189. Procalcitonin 21.6. She remains on DuoNeb inhalations, antibiotics in the form of Zosyn and Levaquin. Initiated on Diflucan. Heparin for DVT prophylaxis. Progress note dated August 06, 2024. The patient is seen today in room 372. She is currently resting in bed. She is awake and alert. No acute distress. The patient continues on 2 L nasal O2. She is getting saline at 75 cc an hour. She is hemodynamically stable. No new labs today other than a glucose of 201. Urine was positive for Chrissy. No new x-ray to report. The patient continues on fluconazole, Levaquin, and Zosyn. Progress note dated August 07, 2024. 63-year-old female who was transferred to the intensive care unit, at about 11 PM last night. She came in because of supraventricular tachycardia. She was moved over by my nurse practitioner. She is seen today in room 261. She is on 3 L nasal O2. She is getting saline at 75 cc an hour, and amiodarone 0.5 mg/min. She came into the intensive care unit, at 11 PM. She has been on BiPAP, at 14/6, 40%, for 6 hours. Current labs include a white count of 12.4, hemoglobin 9, hematocrit 27.9, platelet count 331,000. Sodium 134, potassium 3.7, chloride 102, CO2 23, anion gap 9, BUN 12, creatinine 0.63. Glucose 297. Calcium 7. Magnesium 1.3. Albumin 2.2. Urine culture was positive for Chrissy albicans. Chest x-ray shows an improved right lower lobe infiltrate, and possible mild fluid overload. Progress note dated August 08, 2024. 63-year-old female seen today in room 261. She is currently on 3 L of oxygen. She is getting saline at 75 cc an hour. Yesterday she was on IV amiodarone. Now she is on p.o. amiodarone. Clinically, she is doing well. Her major complaint is pain. She is also having some issues with insomnia. Anyway, I mention to her that she should talk to her hospital doctor about those 2 issues. Current labs include a white count of 10.0, hemoglobin 8.5, hematocrit 26.5, platelet count of 2 94,000. Sodium 135, potassium 3.9, chlorides 103, CO2 27, BUN 11, creatinine 0.71. Glucose is 150. Calcium is 7. Albumin is 2.1. Chest x-ray shows cardiomegaly, with pulmonary venous congestion. Progress note dated August 09, 2024. 63-year-old female seen today in room 353. She was in the intensive care unit yesterday. Is resting comfortably in bed. She is on saline at 75 cc an hour, and receiving nasal cannula, 3 L. No acute distress. She is awake and alert. White count 10.9, hemoglobin 8.9, hematocrit 27.6, platelet count is normal. Sodium 136, potassium 4.3, chlorides 105, CO2 26, BUN 10, and creatinine 0.58. Calcium is 7.4. Microbiology is currently negative. No chest x-ray today. Progress note dated August 10, 2024. 63-year-old female seen today in room 353. The patient is currently getting saline at 20 cc an hour. He is getting nasal oxygen, 3 L, O2 saturation 98%. She is in no acute distress. She is resting comfortably in bed. Her procalcitonin level was 21.6. White count 8.1, hemoglobin 8.6, hematocrit 27.1, platelet count 330,000. Sodium 137, potassium 3.8, chlorides 105, CO2 28, BUN 11, creatinine 0.65. Glucose is 102. Calcium is 7.6. On 08/11/2024, the patient is being seen for a follow-up. The patient is currently on 2 L of oxygen by nasal cannula. She is diuresing well and the patient remains in negative fluid balance. Over the past 48 hours, the patient had 2.4 L negative fluid balance and another 2 L negative fluid balance and she reports improvement lower extremity edema. Her echocardiogram shows an ejection fraction of 35% with questionable vegetation involving the aortic valve. Nevertheless, the patient's blood cultures been negative. IV fluids are currently at KVO. Ragland catheter is in place. Cardiac rhythm is sinus. The patient does have some increased abdominal tympany and distention. Nevertheless, she reports flatus and bowel movement activity. Chest x-ray shows improvement in CHF with mild residual pulm vessel congestion. Small left-sided pleural effusion is still present. The patient also had an abdominal x-ray and there is gas/distended stomach and colon but overall picture is nonobstructive. Possibility of underlying ileus cannot be completely ruled out. The white cell count is at 8 with a hemoglobin 8.6 and a platelet count of 330. Electrolytes are normal, BUN is 11 with a creatinine of 0.6. On 08/12/2024, the patient is being seen for a follow-up. On today's evaluation, the patient is in, comfortable and she is on 2 L of oxygen by nasal cannula. She is feeling well. She has systolic heart failure with an ejection fraction of 35% in addition to coronary artery disease, hypertension hyperlipidemia diabetes mellitus and peripheral vascular disease. She remains on IV Lasix. Fluid balance is -5 L over the past 24 hours and the repeat chest x-ray from yesterday showed improvement in the volume status and the patient had residual bilateral pleural effusion and atelectatic changes of mild pulm vascular congestion. Abdominal x-ray was consistent with possible ileus. Abdomen is less tympanic on today's evaluation and seems to be less distended. She has no other new complaints. No new labs are available from today. Ragland catheter is in place and the patient remains on IV Lasix and Aldactone. She is on Lantus insulin 11 units daily. She is on Levaquin. Rest of medications are essentially unchanged Objective - Vital Signs Vital signs: Vital Signs Temp 98.0 F 08/12/24 08:00 Pulse 74 08/12/24 08:00 Resp 16 08/12/24 08:00 BP 100/70 08/12/24 08:00 Pulse Ox 96 08/12/24 08:00 FiO2 40 08/07/24 08:11 Intake & Output 08/11/24 08/12/24 08/12/24 18:59 06:59 18:59 Intake Total 240 Output Total 2400 2825 675 Balance -1650 -2825 -435 Weight 79.5 kg Intake: Oral 240 Output: Urine 2400 2825 675 Other: Voiding Method Indwelling Catheter Indwelling Catheter # Bowel Movements 1 - Exam No acute distress, oriented 3. Patient continues on 2 L nasal cannula. HEENT examination is grossly unremarkable. Mucous membranes are moist. No oral lesions. Neck supple. Full range of motion. No adenopathy thyromegaly or neck vein distention. Cardiovascular examination reveals regular rhythm rate. S1-S2 normal. No S3 or S4. No discernible murmur noted. Lungs reveal clear breath sounds. Breath sounds are equal bilaterally. No adventitious lung sounds including wheezes rhonchi or crackles. Abdomen soft bowel sounds are heard. No masses or tenderness. The abdomen is distended and the patient is tympanic to percussion. Bowel sounds are hypoactive. Extremities are intact. No cyanosis clubbing or edema. Toe amputations noted. Skin is without rash or lesion. Neurologic examination is brief but nonfocal. - Labs CBC & Chem 7: 08/10/24 06:29 08/10/24 06:29 Labs: Abnormal Lab Results - Last 24 Hours (Table) 08/10/24 08/11/24 08/11/24 Range/Units 11:16 16:31 19:55 POC Glucose (mg/dL) 134 H 189 H 170 H (70-110) mg/dL 08/12/24 08/12/24 Range/Units 06:03 11:14 POC Glucose (mg/dL) 139 H 148 H (70-110) mg/dL Assessment and Plan Plan: Acute hypoxemic respiratory failure, essentially secondary to CHF and volume overload. The patient is negative fluid balance in the repeat chest x-ray shows improvement in volume status and there is some residual CHF with mild pulm vascular congestion and small left-sided pleural effusion still present on today's chest x-ray. Clinically the patient is gradually improving and the patient is currently on 2 L of oxygen by nasal cannula. Systolic heart failure, chronic, Echocardiogram was noted and the patient has an ejection fraction of 35% with questionable vegetation involving the aortic valve. No significant valve heart disease and the patient has segmental wall motion abnormality involving the inferior, anterolateral and anterior lateral hypokinesis. Hypotension, recovered and the patient is currently normotensive. Acute febrile illness, recovered and the patient is currently afebrile Acute leukocytosis, improved Urinary retention, has a Ragland catheter in place with adequate urine output Acute kidney injury, improved Coronary artery disease with previous PCI. The patient had elevated troponins rule out non-ST elevation [place]. History of hypertension. History of hyperlipidemia. Diabetes mellitus type 2, uncontrolled. History of peripheral vascular disease. History of left foot transmetatarsal amputation. History of right 4th and 5th toe amputation on the right. History of nondisplaced oblique fracture of the left greater trochanter. Currently undergoing tobacco dependence. Plan: Clinically stable and the patient remains on 2 L of oxygen by nasal cannula Producing adequate amount of urine output and the patient remains in a negative fluid balance Continue diuretics and patient was placed on 20 mg of IV Lasix every 12 hours Continue Aldactone 12.5 mg p.o. daily Chest x-ray findings are improving, repeat chest x-ray in the morning The patient has an abdominal ileus that needs to be further monitored Continue Toprol-XL 12.5 mg p.o. daily Imdur 50 mg p.o. daily Farxiga 10 mg p.o. daily Amiodarone 200 mg p.o. daily continue bronchodilators With DuoNeb Continue Plavix Continue high-dose statins Will continue to follow and make further recommendations based on the progress. Time with Patient: Greater than 30
--- NOTE | 2024-08-12 22:45 | P.PN ---
Subjective Date of the visit for this note is 08/11/2024 63-year-old female with a past medical history significant for diabetes mellitus reflux hypertension hyperlipidemia [place] CVA TIA previous patient noted to have history of recurrent UTI recently discharged from this hospital after receiving treatment for UTI cystitis has been brought back to the hospital concerning for generalized weakness along with mental status changes and low oxygen patient did have a low-grade fever chest x-ray with multifocal airspace opacity probably this consultation. 08/08/2024 --Patient is seen and evaluated in ICU; the patient continues to be afebrile, the patient is on 3 L nasal cannula oxygen and breathing comfortably, the Pt denies having any chest pain or worsening cough, the patient denies having any abdominal pain no vomiting or any diarrhea has been complaining about her pain medication being inadequate. Blood work reveals WBC of 10, hemoglobin of 8.5 and platelet count of 294, sodium 135, potassium 3.9, BUN/creatinine of 11/0.71 -- urine for Legionella antigen negative blood cultures so far negative sputum not collected - chest x-ray cardiomegaly pulm vascular congestion bilateral effusion progressive in nature 08/09/2024 Patient is seen and evaluated in the intensive care unit yesterday. Is resting comfortably in bed. Currently saturating at 98% on nasal cannula, 3 L. No acute distress. She is awake and alert. Blood work reveals white count 10.9, hemoglobin 8.9, hematocrit 27.6, platelet count is normal. Sodium 136, potassium 4.3, chlorides 105, CO2 26, BUN 10, and creatinine 0.58. Calcium is 7.4. Microbiology is currently negative. No chest x-ray today. Patient has been transferred out of ICU; cardiology recommending to decrease amiodarone to 200 mg daily; patient remains on Lipitor, Plavix and cilostazol; fenofibrate was discontinued; cardiology recommending Farxiga 10 mg daily and Aldactone 12.5 mg 08/10/2024 Patient is seen and evaluated and discussed with nursing staff; received IM Zyprexa for agitation and anxiety last; patient is sleepy but arousable - Vital signs reviewed afebrile patient is currently on 3 L goal oxygen admission breathing comfortably Patient white count is 8.08, creatinine 0.65 blood culture negative patient presented to the hospital with sepsis in this patient who did have a fever tachycardia elevated white count meeting criteria for SIRS/sepsis with evidence of diffuse multifocal airspace opacities will need to cover for the resistant gram-negative with the likely pathogen as the patient was recently discharged from this facility and exposed to antibiotics blood culture remains to be negative sputum has already been collected, urine for Legionella antigen negative keep bilateral heel area of the pressure to prevent any worsening of the bilateral heel pressure ulcer -patient did have resolution of the fever and white count down normalized on Zosyn will consider short course of oral antibiotic on discharge 08/11 Patient still remains mildly tachypneic but her breathing is improving slowly and gradually. Chest x-ray showing improving consolidation and improving fluid overload. Patient remains on IV Lasix with negative fluid balance Her abdomen is mildly distended, she says she has 1 bowel movement which is loose. Abdominal x-ray showing ileus. I talked to the patient about placement and she agreed to talk to the social media marketing manager for possible rehab placement upon discharge whenever ready In the meantime she remains on IV Zosyn and Levaquin. Also she is on IV Lasix 20 mg twice daily. Continued with Aldactone. 08/12 Patient lying in bed with no distress No significant dyspnea at rest, she is on 2 L oxygen She still have evidence of fluid overload she is still kept on IV Lasix 20 mg twice daily. She has almost several liters of urine output over the last 24 hours. Possible discharge in 24 to 48 hours if keeps improving Objective - Vital Signs Vital signs: Vital Signs Temp 98.6 F 08/12/24 03:06 Pulse 80 08/12/24 06:43 Resp 20 08/12/24 03:06 BP 96/63 08/12/24 04:37 Pulse Ox 98 08/12/24 03:06 FiO2 40 08/07/24 08:11 Intake & Output 08/11/24 08/11/24 08/12/24 06:59 18:59 06:59 Intake Total 180 Output Total 1530 2400 2823 Balance -052 -240 -2827 Weight 83.9 kg 79.5 kg Intake: Oral 180 Output: Urine 5070 2400 2825 Other: Voiding Method Indwelling Catheter Indwelling Catheter Indwelling Catheter # Bowel Movements 1 - Exam GENERAL: The patient is alert and oriented x3, not in any acute distress. Well developed, well nourished. HEENT: Pupils are round and equally reacting to light. EOMI. No scleral icterus. No conjunctival pallor. Normocephalic, atraumatic. No pharyngeal erythema. No thyromegaly. CARDIOVASCULAR: S1 and S2 present. No murmurs, rubs, or gallops. -PULMONARY: Chest is clear to auscultation, no wheezing , mild bilateral base crackles. -ABDOMEN: Soft, nontender, mildly distended, normoactive bowel sounds. No palpable organomegaly. MUSCULOSKELETAL: No joint swelling or deformity. EXTREMITIES: No cyanosis, clubbing, or pedal edema. NEUROLOGICAL: Gross neurological examination did not reveal any focal deficits. SKIN: No rashes. no petechiae. - Labs CBC & Chem 7: 08/10/24 06:29 08/10/24 06:29 Labs: Abnormal Lab Results - Last 24 Hours (Table) 08/11/24 08/11/24 08/11/24 Range/Units 11:31 16:31 19:55 POC Glucose (mg/dL) 119 H 189 H 170 H (70-110) mg/dL 08/12/24 Range/Units 06:03 POC Glucose (mg/dL) 139 H (70-110) mg/dL Assessment and Plan Assessment: 1. Acute hypoxemic respiratory failure, secondary to pneumonia -- Patient is currently on O2 per nasal cannula after initially being on BiPAP; we will continue to titrate or wean FiO2 keeping O2 saturation above 92% 2. Acute supraventricular tachycardia; patient initially treated with IV amiodarone; has been transition to oral amiodarone at this point; cardiology on board. 3. Hypotension, consider sepsis/septic shock/pneumonia -- Patient remains on IV antibiotics in the form of Levaquin and Zosyn - ID on board 3. Acute kidney injury; resolved. 4. Elevated troponins rule out non-ST elevation [place]; cardiology has continued home cardiac medications; Imdur is added; recommending ischemia workup once patient has recovered from acute illness. 5. History of hypertension; currently being treated for hypotension related to septic shock. 6. History of hyperlipidemia; Lipitor 80 mg daily. 7. Diabetes mellitus type 2, uncontrolled; monitor Accu-Cheks before every meal and at bedtime with insulin sliding scale. 8. History of coronary artery disease with previous PCI/stents. 9. History of peripheral vascular disease; patient remains on Lipitor and Plavix. -- History of left foot transmetatarsal amputation. 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 10. Ileus with abdominal x-ray showing distended stomach. 11. Acute on chronic CHF, systolic with ejection fraction 35%, improving with IV Lasix DVT prophylaxis; SCDs/subcu heparin CODE STATUS; full code
[2024-08-13 06:01] LABS: Glucose,Whole Blood 167 mg/dL (70-110)
--- NOTE | 2024-08-13 09:37 | XR ---
EXAMINATION TYPE: XR chest 1V DATE OF EXAM: 08/13/2024 COMPARISON: 08/11/2024 CLINICAL INDICATION: Female, 63 years old with history of CHF, pleural effusion; TECHNIQUE: Single frontal view of the chest is obtained. FINDINGS: Spinal stimulator resected along the lower thoracic spinal canal. Heart borderline in size . Small left pleural effusion with retrocardiac opacity. Mild perihilar density. Aeration shows sligh t in improvement in the interval. IMPRESSION: 1. Aeration slightly improved in the interval. There may be residual mild pulmonary vascular congesti on. 2. Ongoing small left pleural effusion with adjacent left basilar atelectasis and/or consolidation. [facility], Workstation: [email or web address], 08/13/2024 9:35 AM
[2024-08-13 11:35] LABS: Glucose,Whole Blood 177 mg/dL (70-110)
[2024-08-13 16:23] LABS: Glucose,Whole Blood 160 mg/dL (70-110)
--- NOTE | 2024-08-13 19:58 | P.PN ---
Subjective Progress Note Date: 08/13/24 Patient is a 63 female with past medical history significant for hypertension, hyperlipidemia, diabetes mellitus type 2, coronary disease with previous PCI/stents, peripheral vascular disease, left foot metatarsal amputation as well as right fourth-fifth toe amputation. Of note, patient recently hospitalized May, with left hip fracture. CT of the left hip showing a nondisplaced oblique fracture through the superior corner of the left greater trochanter. Did return to the hospital 07/22/2024 with abdominal pain. Thought to possible have a urinary tract infection. Abdominal/pelvis CT remarkable for bilateral hydronephrosis, right greater than left, bladder wall thickening, and small bowel ileus. Incidental findings of bilateral pleural effusions and compressive atelectasis. Patient was discharged on 08/01/2024. Patient returns to the emergency department 2 days later complaining of increased weakness, fevers, and shortness of breath. She was placed on BiPAP initially in the ED. She was also noted to be hypotensive and has been fluid resuscitated with a total of 3 L of crystalloid fluid so far. Febrile with a temperature of 100.3 F. Workup including a chest x-ray showing multifocal airspace opacities concerning for pneumonia. Denies any coughing, sputum production, hemoptysis, chest pain. Denies any history of heart failure. Denies any lower extremity edema. Denies any she denies any dysuria, frequency, hematuria, suprapubic pain or flank pain. She is retaining urine and a bedside bladder scan showed 850 cc of urine in the bladder. Labs including a CBC with a WBC count of 19.4, hemoglobin 13, platelets 681. CMP: Sodium 131, potassium 4.3, chloride 100, serum bicarb 18, BUN 22, creatinine 1.36, glucose 389. Lactic was 2.7 is down to 2.5. LFTs not elevated. Troponin was 0.376. NT proBNP significantly elevated at 12,900. Patient currently being evaluated in the emergency department. She is on BiPAP with settings 14/6 and FiO2 40%. SpO2 reading 100% on bedside monitor. She does not appear to be any respiratory distress. Talking complete sentences. No accessory muscle use. She was easily transitioned to nasal cannula. Blood pressure currently 100/66 mmHg. She was empirically placed on a combination of Levaquin and Zosyn in the ED. Currently afebrile. The patient is seen today August 05, 2024 in follow-up on the selective care unit. She is currently resting in bed. Awake and alert in no acute distress. Maintaining O2 saturations in the 90s on 3 L/min per nasal cannula. She is afebrile. Hemodynamically stable. Chest x-ray reveals increased diffuse lung markings bilaterally. Urine culture positive for Chrissy. Blood culture pending. White count 9.7. Hemoglobin 8.8. Platelets 427. Sodium 140. Potassium 3.6. Bicarb 19. BUN 18. Creatinine 1.14. Glucose 189. Procalcitonin 21.6. She remains on DuoNeb inhalations, antibiotics in the form of Zosyn and Levaquin. Initiated on Diflucan. Heparin for DVT prophylaxis. Progress note dated August 06, 2024. The patient is seen today in room 372. She is currently resting in bed. She is awake and alert. No acute distress. The patient continues on 2 L nasal O2. She is getting saline at 75 cc an hour. She is hemodynamically stable. No new labs today other than a glucose of 201. Urine was positive for Chrissy. No new x-ray to report. The patient continues on fluconazole, Levaquin, and Zosyn. Progress note dated August 07, 2024. 63-year-old female who was transferred to the intensive care unit, at about 11 PM last night. She came in because of supraventricular tachycardia. She was moved over by my nurse practitioner. She is seen today in room 261. She is on 3 L nasal O2. She is getting saline at 75 cc an hour, and amiodarone 0.5 mg/min. She came into the intensive care unit, at 11 PM. She has been on BiPAP, at 14/6, 40%, for 6 hours. Current labs include a white count of 12.4, hemoglobin 9, hematocrit 27.9, platelet count 331,000. Sodium 134, potassium 3.7, chloride 102, CO2 23, anion gap 9, BUN 12, creatinine 0.63. Glucose 297. Calcium 7. Magnesium 1.3. Albumin 2.2. Urine culture was positive for Chrissy albicans. Chest x-ray shows an improved right lower lobe infiltrate, and possible mild fluid overload. Progress note dated August 08, 2024. 63-year-old female seen today in room 261. She is currently on 3 L of oxygen. She is getting saline at 75 cc an hour. Yesterday she was on IV amiodarone. Now she is on p.o. amiodarone. Clinically, she is doing well. Her major complaint is pain. She is also having some issues with insomnia. Anyway, I mention to her that she should talk to her hospital doctor about those 2 issues. Current labs include a white count of 10.0, hemoglobin 8.5, hematocrit 26.5, platelet count of 2 94,000. Sodium 135, potassium 3.9, chlorides 103, CO2 27, BUN 11, creatinine 0.71. Glucose is 150. Calcium is 7. Albumin is 2.1. Chest x-ray shows cardiomegaly, with pulmonary venous congestion. Progress note dated August 09, 2024. 63-year-old female seen today in room 353. She was in the intensive care unit yesterday. Is resting comfortably in bed. She is on saline at 75 cc an hour, and receiving nasal cannula, 3 L. No acute distress. She is awake and alert. White count 10.9, hemoglobin 8.9, hematocrit 27.6, platelet count is normal. Sodium 136, potassium 4.3, chlorides 105, CO2 26, BUN 10, and creatinine 0.58. Calcium is 7.4. Microbiology is currently negative. No chest x-ray today. Progress note dated August 10, 2024. 63-year-old female seen today in room 353. The patient is currently getting saline at 20 cc an hour. He is getting nasal oxygen, 3 L, O2 saturation 98%. She is in no acute distress. She is resting comfortably in bed. Her procalcitonin level was 21.6. White count 8.1, hemoglobin 8.6, hematocrit 27.1, platelet count 330,000. Sodium 137, potassium 3.8, chlorides 105, CO2 28, BUN 11, creatinine 0.65. Glucose is 102. Calcium is 7.6. On 08/11/2024, the patient is being seen for a follow-up. The patient is currently on 2 L of oxygen by nasal cannula. She is diuresing well and the patient remains in negative fluid balance. Over the past 48 hours, the patient had 2.4 L negative fluid balance and another 2 L negative fluid balance and she reports improvement lower extremity edema. Her echocardiogram shows an ejection fraction of 35% with questionable vegetation involving the aortic valve. Nevertheless, the patient's blood cultures been negative. IV fluids are currently at KVO. Ragland catheter is in place. Cardiac rhythm is sinus. The patient does have some increased abdominal tympany and distention. Nevertheless, she reports flatus and bowel movement activity. Chest x-ray shows improvement in CHF with mild residual pulm vessel congestion. Small left-sided pleural effusion is still present. The patient also had an abdominal x-ray and there is gas/distended stomach and colon but overall picture is nonobstructive. Possibility of underlying ileus cannot be completely ruled out. The white cell count is at 8 with a hemoglobin 8.6 and a platelet count of 330. Electrolytes are normal, BUN is 11 with a creatinine of 0.6. On 08/12/2024, the patient is being seen for a follow-up. On today's evaluation, the patient is in, comfortable and she is on 2 L of oxygen by nasal cannula. She is feeling well. She has systolic heart failure with an ejection fraction of 35% in addition to coronary artery disease, hypertension hyperlipidemia diabetes mellitus and peripheral vascular disease. She remains on IV Lasix. Fluid balance is -5 L over the past 24 hours and the repeat chest x-ray from yesterday showed improvement in the volume status and the patient had residual bilateral pleural effusion and atelectatic changes of mild pulm vascular congestion. Abdominal x-ray was consistent with possible ileus. Abdomen is less tympanic on today's evaluation and seems to be less distended. She has no other new complaints. No new labs are available from today. Ragland catheter is in place and the patient remains on IV Lasix and Aldactone. She is on Lantus insulin 11 units daily. She is on Levaquin. Rest of medications are essentially unchanged On 08/13/2024, I am seeing the patient for a follow-up. The patient is feeling better. She seems to be less short of breath. Oxygenation is stable and the patient is currently on 2 L of oxygen by nasal cannula with a pulse ox ranging between 94 to 97%. The patient is being diuresed with IV Lasix and the patient is negative fluid balance of 4.7 L over the past 24 hours. She remains on Lasix 20 mg IV push every 12 hours. She remains on DuoNeb treatments around -the-clock. She is on empiric antibiotic coverage with IV Levaquin. She is also on Aldactone. Rest of medications remain unchanged. No new labs are available from today. A repeat chest x-ray was done on 08/13/2024 and there is improved aeration bilaterally and there is some residual pulm vascular congestion and small left-sided pleural effusion still present. Overall x-ray findings have improved considerably. Objective - Vital Signs Vital signs: Vital Signs Temp 97.9 F 08/13/24 12:00 Pulse 62 08/13/24 12:00 Resp 18 08/13/24 12:00 BP 94/58 08/13/24 12:00 Pulse Ox 97 08/13/24 12:00 FiO2 40 08/07/24 08:11 Intake & Output 08/12/24 08/13/24 08/13/24 18:59 06:59 18:59 Intake Total 240 400 10 Output Total 2950 2425 1100 Balance -2709 -2024 -1089 Weight 79.5 kg 77.4 kg Intake: IV 10 Invasive Line 5 10 Oral 240 400 Output: Urine 2950 2425 1100 Other: Voiding Method Indwelling Catheter Indwelling Catheter Indwelling Catheter # Bowel Movements 1 1 - Exam No acute distress, oriented 3. Patient continues on 2 L nasal cannula. HEENT examination is grossly unremarkable. Mucous membranes are moist. No oral lesions. Neck supple. Full range of motion. No adenopathy thyromegaly or neck vein d istention. Cardiovascular examination reveals regular rhythm rate. S1-S2 normal. No S3 or S4. No discernible murmur noted. Lungs reveal clear breath sounds. Breath sounds are equal bilaterally. No adventitious lung sounds including wheezes rhonchi or crackles. Abdomen soft bowel sounds are heard. No masses or tenderness. The abdomen is distended and the patient is tympanic to percussion. Bowel sounds are hypoactive. Extremities are intact. No cyanosis clubbing or edema. Toe amputations noted. Skin is without rash or lesion. Neurologic examination is brief but nonfocal. - Labs CBC & Chem 7: 08/10/24 06:29 08/10/24 06:29 Labs: Abnormal Lab Results - Last 24 Hours (Table) 08/12/24 08/12/24 08/13/24 Range/Units 16:19 19:56 06:00 POC Glucose (mg/dL) 136 H 159 H 167 H (70-110) mg/dL 08/13/24 Range/Units 11:34 POC Glucose (mg/dL) 177 H (70-110) mg/dL Assessment and Plan Plan: Acute hypoxemic respiratory failure, essentially secondary to CHF and volume overload. The patient is negative fluid balance and the follow-up chest x-ray continues to show improvement in volume status and there is some residual CHF with mild pulm vascular congestion and small left-sided pleural effusion still present on today's chest x-ray. Clinically the patient is gradually improving and the patient is currently on 2 L of oxygen by nasal cannula. Systolic heart failure, chronic, Echocardiogram was noted and the patient has an ejection fraction of 35% with questionable vegetation involving the aortic valve. No significant valve heart disease and the patient has segmental wall motion abnormality involving the inferior, anterolateral and anterior lateral hypokinesis. Hypotension, recovered and the patient is currently normotensive. Acute febrile illness, recovered and the patient is currently afebrile Acute leukocytosis, improved Urinary retention, has a Ragland catheter in place with adequate urine output Acute kidney injury, improved Coronary artery disease with previous PCI. The patient had elevated troponins rule out non-ST elevation [place]. History of hypertension. History of hyperlipidemia. Diabetes mellitus type 2, uncontrolled. History of peripheral vascular disease. History of left foot transmetatarsal amputation. History of right 4th and 5th toe amputation on the right. History of nondisplaced oblique fracture of the left greater trochanter. Currently undergoing tobacco dependence. Plan: Clinically stable and the patient remains on 2 L of oxygen by nasal cannula Producing adequate amount of urine output and the patient remains in a negative fluid balance Continue diuretics and patient was placed on 20 mg of IV Lasix every 12 hours Continue Aldactone 12.5 mg p.o. daily Chest x-ray findings are improving, repeat chest x-ray in the morning The patient has an abdominal ileus that needs to be further monitored Continue Toprol-XL 12.5 mg p.o. daily Imdur 50 mg p.o. daily Farxiga 10 mg p.o. daily Amiodarone 200 mg p.o. daily continue bronchodilators With DuoNeb Continue Plavix Continue high-dose statins Will switch the antibiotics to p.o. Levaquin We will reevaluate this patient in AM. Consider thoracentesis if there is sizable effusion. Will continue to follow and make further recommendations based on the progress.
[2024-08-13 20:08] LABS: Glucose,Whole Blood 166 mg/dL (70-110)
--- NOTE | 2024-08-14 00:25 | P.PN ---
Subjective Date of the visit for this note is 08/11/2024 63-year-old female with a past medical history significant for diabetes mellitus reflux hypertension hyperlipidemia [place] CVA TIA previous patient noted to have history of recurrent UTI recently discharged from this hospital after receiving treatment for UTI cystitis has been brought back to the hospital concerning for generalized weakness along with mental status changes and low oxygen patient did have a low-grade fever chest x-ray with multifocal airspace opacity probably this consultation. 08/08/2024 --Patient is seen and evaluated in ICU; the patient continues to be afebrile, the patient is on 3 L nasal cannula oxygen and breathing comfortably, the Pt denies having any chest pain or worsening cough, the patient denies having any abdominal pain no vomiting or any diarrhea has been complaining about her pain medication being inadequate. Blood work reveals WBC of 10, hemoglobin of 8.5 and platelet count of 294, sodium 135, potassium 3.9, BUN/creatinine of 11/0.71 -- urine for Legionella antigen negative blood cultures so far negative sputum not collected - chest x-ray cardiomegaly pulm vascular congestion bilateral effusion progressive in nature 08/09/2024 Patient is seen and evaluated in the intensive care unit yesterday. Is resting comfortably in bed. Currently saturating at 98% on nasal cannula, 3 L. No acute distress. She is awake and alert. Blood work reveals white count 10.9, hemoglobin 8.9, hematocrit 27.6, platelet count is normal. Sodium 136, potassium 4.3, chlorides 105, CO2 26, BUN 10, and creatinine 0.58. Calcium is 7.4. Microbiology is currently negative. No chest x-ray today. Patient has been transferred out of ICU; cardiology recommending to decrease amiodarone to 200 mg daily; patient remains on Lipitor, Plavix and cilostazol; fenofibrate was discontinued; cardiology recommending Farxiga 10 mg daily and Aldactone 12.5 mg 08/10/2024 Patient is seen and evaluated and discussed with nursing staff; received IM Zyprexa for agitation and anxiety last; patient is sleepy but arousable - Vital signs reviewed afebrile patient is currently on 3 L goal oxygen admission breathing comfortably Patient white count is 8.08, creatinine 0.65 blood culture negative patient presented to the hospital with sepsis in this patient who did have a fever tachycardia elevated white count meeting criteria for SIRS/sepsis with evidence of diffuse multifocal airspace opacities will need to cover for the resistant gram-negative with the likely pathogen as the patient was recently discharged from this facility and exposed to antibiotics blood culture remains to be negative sputum has already been collected, urine for Legionella antigen negative keep bilateral heel area of the pressure to prevent any worsening of the bilateral heel pressure ulcer -patient did have resolution of the fever and white count down normalized on Zosyn will consider short course of oral antibiotic on discharge 08/11 Patient still remains mildly tachypneic but her breathing is improving slowly and gradually. Chest x-ray showing improving consolidation and improving fluid overload. Patient remains on IV Lasix with negative fluid balance Her abdomen is mildly distended, she says she has 1 bowel movement which is loose. Abdominal x-ray showing ileus. I talked to the patient about placement and she agreed to talk to the health social work professor for possible rehab placement upon discharge whenever ready In the meantime she remains on IV Zosyn and Levaquin. Also she is on IV Lasix 20 mg twice daily. Continued with Aldactone. 08/12 Patient lying in bed with no distress No significant dyspnea at rest, she is on 2 L oxygen She still have evidence of fluid overload she is still kept on IV Lasix 20 mg twice daily. She has almost several liters of urine output over the last 24 hours. Possible discharge in 24 to 48 hours if keeps improving 08/13 Patient is improving significantly and his breathing is improved She is kept on IV Lasix and she was making 2 to 3 L of urine output this morning, because of the benefits and significant lower in her fluid overload we will going to keep her for another 24 hours with IV Lasix No labs today, rechecking labs in the morning If she keeps improving no other new complaint may be considered for discharge Objective - Vital Signs Vital signs: Vital Signs Temp 97.9 F 08/13/24 12:00 Pulse 62 08/13/24 12:00 Resp 18 08/13/24 12:00 BP 94/58 08/13/24 12:00 Pulse Ox 97 08/13/24 12:00 FiO2 40 08/07/24 08:11 Intake & Output 08/12/24 08/13/24 08/13/24 18:59 06:59 18:59 Intake Total 240 400 20 Output Total 2950 2425 1100 Balance -2710 -2025 -1080 Weight 79.5 kg 77.4 kg Intake: IV 20 Invasive Line 5 20 Oral 240 400 Output: Urine 2950 2425 1100 Other: Voiding Method Indwelling Catheter Indwelling Catheter Indwelling Catheter # Bowel Movements 1 1 - Exam GENERAL: The patient is alert and oriented x3, not in any acute distress. Well developed, well nourished. HEENT: Pupils are round and equally reacting to light. EOMI. No scleral icterus. No conjunctival pallor. Normocephalic, atraumatic. No pharyngeal erythema. No thyromegaly. CARDIOVASCULAR: S1 and S2 present. No murmurs, rubs, or gallops. -PULMONARY: Chest is clear to auscultation, no wheezing , mild bilateral base crackles. -ABDOMEN: Soft, nontender, mildly distended, normoactive bowel sounds. No palpable organomegaly. MUSCULOSKELETAL: No joint swelling or deformity. EXTREMITIES: No cyanosis, clubbing, or pedal edema. NEUROLOGICAL: Gross neurological examination did not reveal any focal deficits. SKIN: No rashes. no petechiae. - Labs CBC & Chem 7: 08/10/24 06:29 08/10/24 06:29 Labs: Abnormal Lab Results - Last 24 Hours (Table) 08/12/24 08/12/24 08/13/24 Range/Units 16:19 19:56 06:00 POC Glucose (mg/dL) 136 H 159 H 167 H (70-110) mg/dL 08/13/24 Range/Units 11:34 POC Glucose (mg/dL) 177 H (70-110) mg/dL Assessment and Plan Assessment: 1. Acute hypoxemic respiratory failure, secondary to pneumonia -- Patient is currently on O2 per nasal cannula after initially being on BiPAP; we will continue to titrate or wean FiO2 keeping O2 saturation above 92% 2. Acute supraventricular tachycardia; patient initially treated with IV amiodarone; has been transition to oral amiodarone at this point; cardiology on board. 3. Hypotension, consider sepsis/septic shock/pneumonia -- Patient remains on IV antibiotics in the form of Levaquin and Zosyn - ID on board 3. Acute kidney injury; resolved. 4. Elevated troponins rule out non-ST elevation [place]; cardiology has continued home cardiac medications; Imdur is added; recommending ischemia workup once patient has recovered from acute illness. 5. History of hypertension; currently being treated for hypotension related to septic shock. 6. History of hyperlipidemia; Lipitor 80 mg daily. 7. Diabetes mellitus type 2, uncontrolled; monitor Accu-Cheks before every meal and at bedtime with insulin sliding scale. 8. History of coronary artery disease with previous PCI/stents. 9. History of peripheral vascular disease; patient remains on Lipitor and Jesus vix. -- History of left foot transmetatarsal amputation. 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 10. Ileus with abdominal x-ray showing distended stomach. 11. Acute on chronic CHF, systolic with ejection fraction 35%, improving with IV Lasix DVT prophylaxis; SCDs/subcu heparin CODE STATUS; full code
[2024-08-14 06:02] LABS: Glucose,Whole Blood 155 mg/dL (70-110)
[2024-08-14] MEDS: LEVOFLOXACIN 750 MG TAB PO SCH (08:27)
[2024-08-14 08:32] LABS: African American GFR (CKD) 86 (>60 ml/min/1.73 sqM); Anion Gap 6 mmol/L; Blood Urea Nitrogen 15 mg/dL (7-17); Calcium 8.3 mg/dL (8.4-10.2); Carbon Dioxide 32 mmol/L (22-30); Chloride 95 mmol/L (98-107); Glucose 127 mg/dL (74-99); Magnesium 1.6 mg/dL (1.6-2.3); Non-African American GFR(CKD) 75 (>60 ml/min/1.73 sqM); Potassium 4.0 mmol/L (3.5-5.1); Sodium 133 mmol/L (137-145)
[2024-08-14 11:13] LABS: Glucose,Whole Blood 143 mg/dL (70-110)
--- NOTE | 2024-08-14 16:21 | P.PN ---
Subjective Progress Note Date: 08/13/24 Principal diagnosis: Reason for follow-up is fever/pneumonia Patient is a 63-year-old female with a past medical history significant for diabetes mellitus reflux hypertension hyperlipidemia [place] CVA TIA previous patient noted to have history of recurrent UTI recently discharged from this hospital after receiving treatment for UTI cystitis has been brought back to the hospital concerning for generalized weakness along with mental status changes and low oxygen patient did have a low-grade fever chest x-ray with multifocal airspace opacity probably this consultation. On today's evaluation that is 08/13/2024,the patient denies any fever or any chills, patient is breathing comfortably on 2 L nasal oxygen the patient denies chest pain shortness of breath and occasional cough, patient complains of abdominal distention but denies any diarrhea or constipation no vomiting Patient did not have any lab draw today Objective - Vital Signs Vital signs: Vital Signs Temp 97.9 F 08/13/24 12:00 Pulse 62 08/13/24 12:00 Resp 18 08/13/24 12:00 BP 94/58 08/13/24 12:00 Pulse Ox 97 08/13/24 12:00 FiO2 40 08/07/24 08:11 Intake & Output 08/12/24 08/13/24 08/13/24 18:59 06:59 18:59 Intake Total 240 400 10 Output Total 2950 2425 1100 Balance -2709 Weight 79.5 kg 77.4 kg Intake: IV 10 Invasive Line 5 10 Oral 240 400 Output: Urine 2950 2425 1100 Other: Voiding Method Indwelling Catheter Indwelling Catheter Indwelling Catheter # Bowel Movements 1 1 - Exam GENERAL DESCRIPTION: Middle-age female lying in bed in no distress RESPIRATORY SYSTEM: Unlabored breathing , decreased breath sounds at bases HEART: S1 S2 regular rate and rhythm , ABDOMEN: Soft , no tenderness EXTREMITIES: Bilateral heel wounds are currently dressed - Labs CBC & Chem 7: 08/10/24 06:29 08/14/24 06:57 Labs: Abnormal Lab Results - Last 24 Hours (Table) 08/12/24 08/12/24 08/13/24 Range/Units 16:19 19:56 06:00 POC Glucose (mg/dL) 136 H 159 H 167 H (70-110) mg/dL 08/13/24 Range/Units 11:34 POC Glucose (mg/dL) 177 H (70-110) mg/dL Assessment and Plan (1) Pneumonia Current Visit: Yes Status: Acute Code(s): J18.9 - PNEUMONIA, UNSPECIFIED ORGANISM SNOMED Code(s): 187011402 (2) Sepsis Current Visit: Yes Status: Acute Code(s): A41.9 - SEPSIS, UNSPECIFIED ORG ANISM SNOMED Code(s): 22852574 (3) Pressure ulcer, heel, right, unstageable Current Visit: No Status: Acute Code(s): L89.610 - PRESSURE ULCER OF RIGHT HEEL, UNSTAGEABLE SNOMED Code(s): 13057558068635532 Plan: 1patient presented to the hospital with sepsis in this patient who did have a fever tachycardia elevated white count meeting criteria for SIRS/sepsis with evidence of diffuse multifocal airspace opacities will need to cover for the resistant gram-negative with the likely pathogen as the patient was recently discharged from this facility and exposed to antibiotics 2blood culture remains to be negative sputum has already been collected, urine for Legionella antigen negative 3keep bilateral heel area of the pressure to prevent any worsening of the bilateral heel pressure ulcer 4-patient did have resolution of the fever and white count has normalized, 5-Pt has completed a course of Zosyn currently on Levaquin, total duration of antibiotic should be 10 days Dictation was produced using Bundle dictation software. please excuse any grammatical, word or spelling errors. Time with Patient: Less than 30
--- NOTE | 2024-08-14 16:22 | P.PN ---
Subjective Progress Note Date: 08/14/24 Principal diagnosis: Reason for follow-up is fever/pneumonia Patient is a 63-year-old female with a past medical history significant for diabetes mellitus reflux hypertension hyperlipidemia LA CVA TIA previous patient noted to have history of recurrent UTI recently discharged from this hospital after receiving treatment for UTI cystitis has been brought back to the hospital concerning for generalized weakness along with mental status changes and low oxygen patient did have a low-grade fever chest x-ray with multifocal airspace opacity probably this consultation. On today's evaluation that is 08/14/2024,the patient remains to be afebrile, patient is on 2 L nasal cannula supplemental oxygen and denies any shortness of breath no chest pain occasional dry cough.Patient denies having any nausea or vomiting, no abdominal pain and no diarrhea. Patient did have creatinine 0.85 no CBC was done today Objective - Vital Signs Vital signs: Vital Signs Temp 97.9 F 08/14/24 08:40 Pulse 72 08/14/24 10:00 Resp 18 08/14/24 08:40 BP 100/59 08/14/24 08:40 Pulse Ox 97 08/14/24 09:49 FiO2 40 08/07/24 08:11 Intake & Output 08/13/24 08/14/24 08/14/24 18:59 06:59 18:59 Intake Total 20 20 370 Output Total 1800 1800 1425 Balance -1780 -1780 -1055 Weight 72.1 kg Intake: IV 20 20 10 Invasive Line 5 20 20 10 Oral 360 Output: Urine 1800 1800 1425 Other: Voiding Method Indwelling Catheter Indwelling Catheter # Bowel Movements 1 - Exam GENERAL DESCRIPTION: Middle-age female lying in bed in no distress RESPIRATORY SYSTEM: Unlabored breathing , decreased breath sounds at bases HEART: S1 S2 regular rate and rhythm , ABDOMEN: Soft , no tenderness EXTREMITIES: Bilateral heel wounds are currently dressed - Labs CBC & Chem 7: 08/10/24 06:29 08/14/24 06:57 Labs: Abnormal Lab Results - Last 24 Hours (Table) 08/13/24 08/13/24 08/14/24 Range/Units 16:20 20:07 06:00 Sodium (137-145) mmol/L Chloride (98-107) mmol/L Carbon Dioxide (22-30) mmol/L Glucose (74-99) mg/dL POC Glucose (mg/dL) 160 H 166 H 155 H (70-110) mg/dL Calcium (8.4-10.2) mg/dL 08/14/24 08/14/24 Range/Units 06:57 11:11 Sodium 133 L (137-145) mmol/L Chloride 95 L (98-107) mmol/L Carbon Dioxide 32 H (22-30) mmol/L Glucose 127 H (74-99) mg/dL POC Glucose (mg/dL) 143 H (70-110) mg/dL Calcium 8.3 L (8.4-10.2) mg/dL Assessment and Plan (1) Pneumonia Current Visit: Yes Status: Acute Code(s): J18.9 - PNEUMONIA, UNSPECIFIED ORGANISM SNOMED Code(s): 940654468 (2) Sepsis Current Visit: Yes Status: Acute Code(s): A41.9 - SEPSIS, UNSPECIFIED ORGANISM SNOMED Code(s): 69743650 (3) Pressure ulcer, heel, right, unstageable Current Visit: No Status: Acute Code(s): L89.610 - PRESSURE ULCER OF RIGHT HEEL, UNSTAGEABLE SNOMED Code(s): 45071368230951430 Plan: 1patient presented to the hospital with sepsis in this patient who did have a fever tachycardia elevated white count meeting criteria for SIRS/sepsis with evidence of diffuse multifocal airspace opacities will need to cover for the resistant gram-negative with the likely pathogen as the patient was recently discharged from this facility and exposed to antibiotics 2blood culture remains to be negative sputum has already been collected, urine for Legionella antigen negative 3keep bilateral heel area of the pressure to prevent any worsening of the bilateral heel pressure ulcer 4-patient did have resolution of the fever and white count has normalized, 5-Pt has completed a course of Zosyn and has been on Levaquin the patient has received 10 days of antibiotic should be more than enough for pneumonia we will go ahead and discontinue Levaquin and monitor the patient closely off antibiotic Dictation was produced using [email or web address] dictation software. please excuse any grammatical, word or spelling errors. Time with Patient: Less than 30
[2024-08-14 16:23] LABS: Glucose,Whole Blood 161 mg/dL (70-110)
[2024-08-14] MEDS: MAG HYDROX/AL HYDROX/SIMETH 30 ML CUP PO PRN (16:29)
--- NOTE | 2024-08-14 17:38 | P.PN ---
Subjective Progress Note Date: 08/14/24 Patient is a 63 female with past medical history significant for hypertension, hyperlipidemia, diabetes mellitus type 2, coronary disease with previous PCI/stents, peripheral vascular disease, left foot metatarsal amputation as well as right fourth-fifth toe amputation. Of note, patient recently hospitalized May, with left hip fracture. CT of the left hip showing a nondisplaced oblique fracture through the superior corner of the left greater trochanter. Did return to the hospital 07/22/2024 with abdominal pain. Thought to possible have a urinary tract infection. Abdominal/pelvis CT remarkable for bilateral hydronephrosis, right greater than left, bladder wall thickening, and small bowel ileus. Incidental findings of bilateral pleural effusions and compressive atelectasis. Patient was discharged on 08/01/2024. Patient returns to the emergency department 2 days later complaining of increased weakness, fevers, and shortness of breath. She was placed on BiPAP initially in the ED. She was also noted to be hypotensive and has been fluid resuscitated with a total of 3 L of crystalloid fluid so far. Febrile with a temperature of 100.3 F. Workup including a chest x-ray showing multifocal airspace opacities concerning for pneumonia. Denies any coughing, sputum production, hemoptysis, chest pain. Denies any history of heart failure. Denies any lower extremity edema. Denies any she denies any dysuria, frequency, hematuria, suprapubic pain or flank pain. She is retaining urine and a bedside bladder scan showed 850 cc of urine in the bladder. Labs including a CBC with a WBC count of 19.4, hemoglobin 13, platelets 681. CMP: Sodium 131, potassium 4.3, chloride 100, serum bicarb 18, BUN 22, creatinine 1.36, glucose 389. Lactic was 2.7 is down to 2.5. LFTs not elevated. Troponin was 0.376. NT proBNP significantly elevated at 12,900. Patient currently being evaluated in the emergency department. She is on BiPAP with settings 14/6 and FiO2 40%. SpO2 reading 100% on bedside monitor. She does not appear to be any respiratory distress. Talking complete sentences. No accessory muscle use. She was easily transitioned to nasal cannula. Blood pressure currently 100/66 mmHg. She was empirically placed on a combination of Levaquin and Zosyn in the ED. Currently afebrile. The patient is seen today August 05, 2024 in follow-up on the selective care unit. She is currently resting in bed. Awake and alert in no acute distress. Maintaining O2 saturations in the 90s on 3 L/min per nasal cannula. She is afebrile. Hemodynamically stable. Chest x-ray reveals increased diffuse lung markings bilaterally. Urine culture positive for Chrissy. Blood culture pending. White count 9.7. Hemoglobin 8.8. Platelets 427. Sodium 140. Potassium 3.6. Bicarb 19. BUN 18. Creatinine 1.14. Glucose 189. Procalcitonin 21.6. She remains on DuoNeb inhalations, antibiotics in the form of Zosyn and Levaquin. Initiated on Diflucan. Heparin for DVT prophylaxis. Progress note dated August 06, 2024. The patient is seen today in room 372. She is currently resting in bed. She is awake and alert. No acute distress. The patient continues on 2 L nasal O2. She is getting saline at 75 cc an hour. She is hemodynamically stable. No new labs today other than a glucose of 201. Urine was positive for Chrissy. No new x-ray to report. The patient continues on fluconazole, Levaquin, and Zosyn. Progress note dated August 07, 2024. 63-year-old female who was transferred to the intensive care unit, at about 11 PM last night. She came in because of supraventricular tachycardia. She was moved over by my nurse practitioner. She is seen today in room 261. She is on 3 L nasal O2. She is getting saline at 75 cc an hour, and amiodarone 0.5 mg/min. She came into the intensive care unit, at 11 PM. She has been on BiPAP, at 14/6, 40%, for 6 hours. Current labs include a white count of 12.4, hemoglobin 9, hematocrit 27.9, platelet count 331,000. Sodium 134, potassium 3.7, chloride 102, CO2 23, anion gap 9, BUN 12, creatinine 0.63. Glucose 297. Calcium 7. Magnesium 1.3. Albumin 2.2. Urine culture was positive for Chrissy albicans. Chest x-ray shows an improved right lower lobe infiltrate, and possible mild fluid overload. Progress note dated August 08, 2024. 63-year-old female seen today in room 261. She is currently on 3 L of oxygen. She is getting saline at 75 cc an hour. Yesterday she was on IV amiodarone. Now she is on p.o. amiodarone. Clinically, she is doing well. Her major complaint is pain. She is also having some issues with insomnia. Anyway, I mention to her that she should talk to her hospital doctor about those 2 issues. Current labs include a white count of 10.0, hemoglobin 8.5, hematocrit 26.5, platelet count of 2 94,000. Sodium 135, potassium 3.9, chlorides 103, CO2 27, BUN 11, creatinine 0.71. Glucose is 150. Calcium is 7. Albumin is 2.1. Chest x-ray shows cardiomegaly, with pulmonary venous congestion. Progress note dated August 09, 2024. 63-year-old female seen today in room 353. She was in the intensive care unit yesterday. Is resting comfortably in bed. She is on saline at 75 cc an hour, and receiving nasal cannula, 3 L. No acute distress. She is awake and alert. White count 10.9, hemoglobin 8.9, hematocrit 27.6, platelet count is normal. Sodium 136, potassium 4.3, chlorides 105, CO2 26, BUN 10, and creatinine 0.58. Calcium is 7.4. Microbiology is currently negative. No chest x-ray today. Progress note dated August 10, 2024. 63-year-old female seen today in room 353. The patient is currently getting saline at 20 cc an hour. He is getting nasal oxygen, 3 L, O2 saturation 98%. She is in no acute distress. She is resting comfortably in bed. Her procalcitonin level was 21.6. White count 8.1, hemoglobin 8.6, hematocrit 27.1, platelet count 330,000. Sodium 137, potassium 3.8, chlorides 105, CO2 28, BUN 11, creatinine 0.65. Glucose is 102. Calcium is 7.6. On 08/11/2024, the patient is being seen for a follow-up. The patient is currently on 2 L of oxygen by nasal cannula. She is diuresing well and the patient remains in negative fluid balance. Over the past 48 hours, the patient had 2.4 L negative fluid balance and another 2 L negative fluid balance and she reports improvement lower extremity edema. Her echocardiogram shows an ejection fraction of 35% with questionable vegetation involving the aortic valve. Nevertheless, the patient's blood cultures been negative. IV fluids are currently at KVO. Ragland catheter is in place. Cardiac rhythm is sinus. The patient does have some increased abdominal tympany and distention. Nevertheless, she reports flatus and bowel movement activity. Chest x-ray shows improvement in CHF with mild residual pulm vessel congestion. Small left-sided pleural effusion is still present. The patient also had an abdominal x-ray and there is gas/distended stomach and colon but overall picture is nonobstructive. Possibility of underlying ileus cannot be completely ruled out. The white cell count is at 8 with a hemoglobin 8.6 and a platelet count of 330. Electrolytes are normal, BUN is 11 with a creatinine of 0.6. On 08/12/2024, the patient is being seen for a follow-up. On today's evaluation, the patient is in, comfortable and she is on 2 L of oxygen by nasal cannula. She is feeling well. She has systolic heart failure with an ejection fraction of 35% in addition to coronary artery disease, hypertension hyperlipidemia diabetes mellitus and peripheral vascular disease. She remains on IV Lasix. Fluid balance is -5 L over the past 24 hours and the repeat chest x-ray from yesterday showed improvement in the volume status and the patient had residual bilateral pleural effusion and atelectatic changes of mild pulm vascular congestion. Abdominal x-ray was consistent with possible ileus. Abdomen is less tympanic on today's evaluation and seems to be less distended. She has no other new complaints. No new labs are available from today. Ragland catheter is in place and the patient remains on IV Lasix and Aldactone. She is on Lantus insulin 11 units daily. She is on Levaquin. Rest of medications are essentially unchanged On 08/13/2024, I am seeing the patient for a follow-up. The patient is feeling better. She seems to be less short of breath. Oxygenation is stable and the patient is currently on 2 L of oxygen by nasal cannula with a pulse ox ranging between 94 to 97%. The patient is being diuresed with IV Lasix and the patient is negative fluid balance of 4.7 L over the past 24 hours. She remains on Lasix 20 mg IV push every 12 hours. She remains on DuoNeb treatments around -the-clock. She is on empiric antibiotic coverage with IV Levaquin. She is also on Aldactone. Rest of medications remain unchanged. No new labs are available from today. A repeat chest x-ray was done on 08/13/2024 and there is improved aeration bilaterally and there is some residual pulm vascular congestion and small left-sided pleural effusion still present. Overall x-ray findings have improved considerably. On 08/14/2024, the patient is being seen for a follow-up. The patient is doing well. The patient is diuresing adequately and the patient has been negative fluid balance of 3.5 L over the past 24 hours. Noted the patient remains on IV Lasix and the patient has produced excellent amount of urine output and she remains on a negative fluid balance. She remains on Lasix 20 mg IV every 12 hours. Rest of the medications are essentially unchanged. The patient remains on Aldactone 12.5 mg p.o. daily. She remains on Levaquin and this has been switched to 750 mg p.o. on a daily basis. Afebrile. Remains on DuoNeb updrafts. Blood work from today shows a sodium level of 133 with a potassium level of 4, BUN 16 with a creatinine of 0.8. The patient is currently on 3 S liters by nasal cannula with a pulse ox of 97%. She reports improvement in her breathing and the patient seems to be less short of breath. She has generalized weakness and fatigue. Abdomen is less distended. Objective - Vital Signs Vital signs: Vital Signs Temp 97.9 F 08/14/24 08:40 Pulse 72 08/14/24 10:00 Resp 18 08/14/24 08:40 BP 100/59 08/14/24 08:40 Pulse Ox 97 08/14/24 09:49 FiO2 40 08/07/24 08:11 Intake & Output 08/13/24 08/14/24 08/14/24 18:59 06:59 18:59 Intake Total 20 20 180 Output Total 1800 1800 1425 Balance -178 -1779 -1245 Weight 72.1 kg Intake: IV 20 20 Invasive Line 5 20 20 Oral 180 Output: Urine 1800 1800 1425 Other: Voiding Method Indwelling Catheter Indwelling Catheter # Bowel Movements 1 - Exam No acute distress, oriented 3. Patient continues on 2 L nasal cannula. HEENT examination is grossly unremarkable. Mucous membranes are moist. No oral lesions. Neck supple. Full range of motion. No adenopathy thyromegaly or neck vein distention. Cardiovascular examination reveals regular rhythm rate. S1-S2 normal. No S3 or S4. No discernible murmur noted. Lungs reveal clear breath sounds. Breath sounds are equal bilaterally. No adventitious lung sounds including wheezes rhonchi or crackles. Abdomen soft bowel sounds are heard. No masses or tenderness. The abdomen is distended and the patient is tympanic to percussion. Bowel sounds are hypoactive. Extremities are intact. No cyanosis clubbing or edema. Toe amputations noted. Skin is without rash or lesion. Neurologic examination is brief but nonfocal. - Labs CBC & Chem 7: 08/10/24 06:29 08/14/24 06:57 Labs: Abnormal Lab Results - Last 24 Hours (Table) 08/13/24 08/13/24 08/13/24 Range/Units 11:34 16:20 20:07 Sodium (137-145) mmol/L Chloride (98-107) mmol/L Carbon Dioxide (22-30) mmol/L Glucose (74-99) mg/dL POC Glucose (mg/dL) 177 H 160 H 166 H (70-110) mg/dL Calcium (8.4-10.2) mg/dL 08/14/24 08/14/24 08/14/24 Range/Units 06:00 06:57 11:11 Sodium 133 L (137-145) mmol/L Chloride 95 L (98-107) mmol/L Carbon Dioxide 32 H (22-30) mmol/L Glucose 127 H (74-99) mg/dL POC Glucose (mg/dL) 155 H 143 H (70-110) mg/dL Calcium 8.3 L (8.4-10.2) mg/dL Assessment and Plan Plan: Acute hypoxemic respiratory failure, essentially secondary to CHF and volume overload. The patient is negative fluid balance and the follow-up chest x-ray continues to show improvement in volume status and there is some residual CHF with mild pulm vascular congestion and small left-sided pleural effusion still present on today's chest x-ray. Clinically the patient is gradually improving and the patient is currently on 2 L of oxygen by nasal cannula. Systolic heart failure, chronic, Echocardiogram was noted and the patient has an ejection fraction of 35% with questionable vegetation involving the aortic valve. No significant valve heart disease and the patient has segmental wall motion abnormality involving the inferior, anterolateral and anterior lateral hypokinesis. Hypotension, recovered and the patient is currently normotensive. Acute febrile illness, recovered and the patient is currently afebrile Acute leukocytosis, improved Urinary retention, has a Ragland catheter in place with adequate urine output Acute kidney injury, improved Coronary artery disease with previous PCI. The patient had elevated troponins rule out non-ST elevation AR. History of hypertension. History of hyperlipidemia. Diabetes mellitus type 2, uncontrolled. History of peripheral vascular disease. History of left foot transmetatarsal amputation. History of right 4th and 5th toe amputation on the right. History of nondisplaced oblique fracture of the left greater trochanter. Currently undergoing tobacco dependence. Plan: Clinically stable and the patient remains on 2 L of oxygen by nasal cannula The patient continues to improve clinically. She seems to be less short of breath. She continues to diurese well IV Lasix. Suggest continuing IV Lasix for another 24 hours in combination with Aldactone. Producing adequate amount of urine output and the patient remains in a negative fluid balance Continue diuretics and patient was placed on 20 mg of IV Lasix every 12 hours Continue Aldactone 12.5 mg p.o. daily Chest x-ray findings are improving, repeat chest x-ray in the morning, and f ollow-up chest x-ray was ordered for tomorrow The patient has an abdominal ileus that needs to be further monitored Continue Toprol-XL 12.5 mg p.o. daily Imdur 50 mg p.o. daily Farxiga 10 mg p.o. daily Amiodarone 200 mg p.o. daily continue bronchodilators With DuoNeb Continue Plavix Continue high-dose statins Oral Levaquin 750 mg p.o. okay to complete the course Will continue to follow and make further recommendations based on the progress.
--- NOTE | 2024-08-14 18:34 | XR ---
EXAMINATION TYPE: XR abdomen 2V DATE OF EXAM: 08/14/2024 6:22 PM CLINICAL INDICATION:Female, 63 years old with history of abdominal pain; [facility] COMPARISON: Abdominal radiograph 08/11/2024 TECHNIQUE: Two views of the abdomen were obtained. FINDINGS: Redemonstrated generator pack device overlying the left flank with leads in a similar position. Pam cystectomy clips right upper quadrant of the abdomen. Again seen is significant gaseous distention of the stomach with patchy and scattered radiodense foci which appear to be intraluminal and could repr esent residual contrast versus other enteric contents. There is similar gaseous distention of the rig ht-sided bowel. Trace left pleural effusion is suggested. No acute osseous abnormalities. Fusion hard alonso of the lumbosacral spine is again seen. Partially visualized right iliac vessel stomach. IMPRESSION: Significant gaseous distention of the stomach with mottled appearance of the intraluminal contents wh ich may relate to residual contrast versus other enteric products. Given the gaseous distention of th e bowel in the right-sided abdomen findings may relate to ileus. Consider nasogastric decompression t ube and/or cross-sectional imaging as clinically indicated. [facility], , 08/14/2024 6:32 PM
--- NOTE | 2024-08-14 20:25 | P.PN ---
Subjective Date of the visit for this note is 08/11/2024 63-year-old female with a past medical history significant for diabetes mellitus reflux hypertension hyperlipidemia TN CVA TIA previous patient noted to have history of recurrent UTI recently discharged from this hospital after receiving treatment for UTI cystitis has been brought back to the hospital concerning for generalized weakness along with mental status changes and low oxygen patient did have a low-grade fever chest x-ray with multifocal airspace opacity probably this consultation. 08/08/2024 --Patient is seen and evaluated in ICU; the patient continues to be afebrile, the patient is on 3 L nasal cannula oxygen and breathing comfortably, the Pt denies having any chest pain or worsening cough, the patient denies having any abdominal pain no vomiting or any diarrhea has been complaining about her pain medication being inadequate. Blood work reveals WBC of 10, hemoglobin of 8.5 and platelet count of 294, sodium 135, potassium 3.9, BUN/creatinine of 11/0.71 -- urine for Legionella antigen negative blood cultures so far negative sputum not collected - chest x-ray cardiomegaly pulm vascular congestion bilateral effusion progressive in nature 08/09/2024 Patient is seen and evaluated in the intensive care unit yesterday. Is resting comfortably in bed. Currently saturating at 98% on nasal cannula, 3 L. No acute distress. She is awake and alert. Blood work reveals white count 10.9, hemoglobin 8.9, hematocrit 27.6, platelet count is normal. Sodium 136, potassium 4.3, chlorides 105, CO2 26, BUN 10, and creatinine 0.58. Calcium is 7.4. Microbiology is currently negative. No chest x-ray today. Patient has been transferred out of ICU; cardiology recommending to decrease amiodarone to 200 mg daily; patient remains on Lipitor, Plavix and cilostazol; fenofibrate was discontinued; cardiology recommending Farxiga 10 mg daily and Aldactone 12.5 mg 08/10/2024 Patient is seen and evaluated and discussed with nursing staff; received IM Zyprexa for agitation and anxiety last; patient is sleepy but arousable - Vital signs reviewed afebrile patient is currently on 3 L goal oxygen admission breathing comfortably Patient white count is 8.08, creatinine 0.65 blood culture negative patient presented to the hospital with sepsis in this patient who did have a fever tachycardia elevated white count meeting criteria for SIRS/sepsis with evidence of diffuse multifocal airspace opacities will need to cover for the resistant gram-negative with the likely pathogen as the patient was recently discharged from this facility and exposed to antibiotics blood culture remains to be negative sputum has already been collected, urine for Legionella antigen negative keep bilateral heel area of the pressure to prevent any worsening of the bilateral heel pressure ulcer -patient did have resolution of the fever and white count down normalized on Zosyn will consider short course of oral antibiotic on discharge 08/11 Patient still remains mildly tachypneic but her breathing is improving slowly and gradually. Chest x-ray showing improving consolidation and improving fluid overload. Patient remains on IV Lasix with negative fluid balance Her abdomen is mildly distended, she says she has 1 bowel movement which is loose. Abdominal x-ray showing ileus. I talked to the patient about placement and she agreed to talk to the social media marketing analyst for possible rehab placement upon discharge whenever ready In the meantime she remains on IV Zosyn and Levaquin. Also she is on IV Lasix 20 mg twice daily. Continued with Aldactone. 08/12 Patient lying in bed with no distress No significant dyspnea at rest, she is on 2 L oxygen She still have evidence of fluid overload she is still kept on IV Lasix 20 mg twice daily. She has almost several liters of urine output over the last 24 hours. Possible discharge in 24 to 48 hours if keeps improving 08/13 Patient is improving significantly and his breathing is improved She is kept on IV Lasix and she was making 2 to 3 L of urine output this morning, because of the benefits and significant lower in her fluid overload we will going to keep her for another 24 hours with IV Lasix No labs today, rechecking labs in the morning If she keeps improving no other new complaint may be considered for discharge 08/14 Patient still has bilateral leg swelling She is making good amount of urine output about 1 to 2 L every shift She does not want to go to rehab although she is severely weak she is adamant to go home with home care after several times we discussed with her. She has Ragland catheter in place However in the afternoon patient started develop more abdominal distention, abdominal x-ray requested as patient vomited once showing significant gaseous distention of the stomach, NG tube recommended which is ordered, Make the patient n.p.o., surgery team also consulted Discussed with the staff of day and slot shift supervisor. Continue close monitoring \ Active Medications Generic Name Dose Route Start Last Admin Trade Name Freq PRN Reason Stop Dose Admin Acetaminophen 650 mg 08/04/24 23:23 08/06/24 03:46 Acetaminophen Tab 325 Mg Tab PO 650 mg Q4HR PRN Administration Fever and/ or Pain Hydrocodone Bitart/Acetaminophen 1 each 08/07/24 13:43 08/14/24 03:43 Hydrocodone/Apap 5-325mg 1 Each Tab PO 1 each Q6H PRN Administration Severe Pain (Scale 7 to 10) Al Hydroxide/Mg Hydroxide 30 ml 08/14/24 16:19 08/14/24 16:29 Mag Hydrox/Al Hydrox/Simeth 30 Ml Cup PO 30 ml Q4HR PRN Administration GI Upset Albuterol/Ipratropium 3 ml 08/03/24 22:30 08/14/24 15:12 Ipratropium-Albuterol 3 Ml Neb INHALATION Not Given RT-TID MAGALY Albuterol/Ipratropium 3 ml 08/03/24 22:30 Ipratropium-Albuterol 3 Ml Neb INHALATION RT-TID PRN Shortness Of Breath Or Wheezing Alprazolam 0.25 mg 08/04/24 17:03 08/14/24 08:27 Alprazolam 0.25 Mg Tab PO 0.25 mg BID PRN Administration Anxiety Amiodarone HCl 200 mg 08/10/24 09:00 08/14/24 08:27 Amiodarone 200 Mg Tab PO 200 mg DAILY MAGALY Administration Atorvastatin Calcium 80 mg 08/04/24 21:00 08/14/24 20:09 Atorvastatin 80 Mg Tab PO 80 mg HS MAGALY Administration Bisacodyl 10 mg 08/07/24 13:45 08/14/24 08:30 Bisacodyl 10 Mg Supp RECTAL 10 mg DAILY MAGALY Administration Cilostazol 100 mg 08/09/24 21:00 08/14/24 20:09 Cilostazol 100 Mg Tab PO 100 mg BID MAGALY Administration Clopidogrel Bisulfate 75 mg 08/05/24 09:00 08/14/24 08:27 Clopidogrel 75 Mg Tab PO 75 mg DAILY MAGALY Administration Dapagliflozin 10 mg 08/09/24 17:15 08/14/24 08:28 Dapagliflozin Propanediol 10 Mg Tablet PO 10 mg DAILY MAGALY Administration Dextrose/Water 25 ml 08/03/24 22:52 Dextrose 50% Syringe 50 Ml IVP PER PROTOCOL PRN Hypoglycemia Protocol Dextrose/Water 50 ml 08/03/24 22:52 Dextrose 50% Syringe 50 Ml IVP PER PROTOCOL PRN Hypoglycemia Protocol Fluconazole 100 mg 08/06/24 09:00 08/14/24 08:27 Fluconazole 100 Mg Tab PO 100 mg DAILY MAGALY Administration Protocol Furosemide 20 mg 08/11/24 13:15 08/14/24 20:09 Furosemide 10 Mg/Ml 2 Ml Vial IV 20 mg Q12HR MAGALY Administration Gabapentin 100 mg 08/04/24 21:00 08/14/24 20:09 Gabapentin 100 Mg Cap PO 100 mg HS MAGALY Administration Heparin Sodium (Porcine) 5,000 unit 08/03/24 22:45 08/14/24 20:08 Heparin Sodium,Porcine 5,000 Unit/Ml 1 Ml Vial SQ 5,000 unit Q12HR MAGALY Administration Sodium Chloride 1,000 mls @ 20 mls/hr 08/06/24 23:45 08/14/24 08:39 Saline 0.9% IV 20 mls/hr .Q24H MAGALY Administration Insulin Glargine 11 unit 08/03/24 22:54 08/14/24 06:14 Insulin Glargine (Lantus) 100 Unit/Ml Syr 0.15 unit/kg (11 unit) 11 unit SQ Administration BID@0700,2100 [facility] Insulin Human Lispro 0 unit 08/04/24 07:30 08/14/24 17:29 Insulin Lispro (Humalog) 100 Unit/Ml 10 Ml Vl SQ Not Given ACHS [facility] Protocol Isosorbide Mononitrate 15 mg 08/05/24 11:45 08/14/24 08:29 Isosorbide Mononitrate Er 15 Mg Tab PO 15 mg DAILY MAGALY Administration Lactulose 20 gm 08/04/24 12:15 08/14/24 20:13 Lactulose 20 Gm/30 Ml Cup PO Not Given BID MAGALY Levofloxacin 750 mg 08/14/24 09:00 08/14/24 08:27 Levofloxacin 750 Mg Tab PO 08/16/24 09:01 750 mg DAILY MAGALY Administration Protocol Losartan Potassium 12.5 mg 08/09/24 17:15 08/14/24 08:27 Losartan 25 Mg Tab PO 12.5 mg DAILY MAGALY Administration Metoprolol Succinate 12.5 mg 08/09/24 17:15 08/14/24 08:28 Metoprolol Succinate (Er) 25 Mg Tab.Er.24h PO 12.5 mg DAILY MAGALY Administration Miscellaneous Information 1 each 08/07/24 11:49 Magnesium Replacement Protocol 1 Each Misc MISCELLANE DAILY PRN Per Protocol Protocol Miscellaneous Information 1 each 08/07/24 11:49 Potassium Replacement Protocol 1 Each Misc MISCELLANE DAILY PRN Per Protocol Protocol Morphine Sulfate 2 mg 08/08/24 22:41 08/14/24 17:25 Morphine Sulfate 2 Mg/Ml Syringe IVP 2 mg Q6HR PRN Administration Pain/Discomfort Naloxone HCl 0.2 mg 08/03/24 19:59 Naloxone 0.4 Mg/Ml 1 Ml Vial IV Q2M PRN Opioid Reversal Nitroglycerin 0.4 mg 08/05/24 09:32 08/05/24 09:43 Nitroglycerin Sl Tabs 0.4 Mg Tab SUBLINGUAL 0.4 mg Q5M PRN Administration Chest Pain Olanzapine 2.5 mg 08/10/24 17:14 Olanzapine 10 Mg Vial IM DAILY PRN Agitation or Acute Anxiety Ondansetron HCl 4 mg 08/03/24 19:59 08/14/24 13:46 Ondansetron 4 Mg/2 Ml Vial IVP 4 mg Q8HR PRN Administration Nausea And Vomiting Ondansetron HCl 4 mg 08/04/24 11:59 08/13/24 08:44 Ondansetron Odt 4 Mg Tab PO 4 mg Q8HR PRN Administration Nausea Oxybutynin Chloride 10 mg 08/04/24 12:15 08/14/24 08:29 Oxybutynin 10 Mg Tab.Er.24 PO 10 mg DAILY MAGALY Administration Pantoprazole Sodium 40 mg 08/03/24 22:45 08/14/24 20:08 Pantoprazole 40 Mg/10 Ml Vial IVP 40 mg BID MAGALY Administration Petrolatum 1 applic 08/06/24 18:13 Zinc Oxide Paste (Z-Guard) 1 Applic TOPICAL Q2HR PRN Wound Healing Protocol Senna 8.6 mg 08/07/24 13:45 08/14/24 20:09 Sennosides 8.6 Mg Tab PO 8.6 mg BID MAGALY Administration Simethicone 40 mg 08/04/24 13:00 08/14/24 20:09 Simethicone 40 Mg/0.6 Ml Drops 2,000 Mg/30 Ml Bottle PO 40 mg QID MAGALY Administration Spironolactone 12.5 mg 08/09/24 17:15 08/14/24 08:27 Spironolactone 25 Mg Tab PO 12.5 mg DAILY MAGALY Administration Objective - Vital Signs Vital signs: Vital Signs Temp 97.9 F 08/14/24 08:40 Pulse 72 08/14/24 10:00 Resp 18 08/14/24 08:40 BP 100/59 08/14/24 08:40 Pulse Ox 97 08/14/24 09:49 FiO2 40 08/07/24 08:11 Intake & Output 08/13/24 08/14/24 08/14/24 18:59 06:59 18:59 Intake Total 20 20 180 Output Total 1800 1800 1425 Balance -1780 -1780 -1245 Weight 72.1 kg Intake: IV 20 20 Invasive Line 5 20 20 Oral 180 Output: Urine 1800 1800 1425 Other: Voiding Method Indwelling Catheter Indwelling Catheter # Bowel Movements 1 - Exam GENERAL: The patient is alert and oriented x3, not in any acute distress. Well developed, well nourished. HEENT: Pupils are round and equally reacting to light. EOMI. No scleral icterus. No conjunctival pallor. Normocephalic, atraumatic. No pharyngeal erythema. No thyromegaly. CARDIOVASCULAR: S1 and S2 present. No murmurs, rubs, or gallops. -PULMONARY: Chest is clear to auscultation, no wheezing , mild bilateral base crackles. -ABDOMEN: Soft, nontender, mildly distended, normoactive bowel sounds. No p alpable organomegaly. MUSCULOSKELETAL: No joint swelling or deformity. EXTREMITIES: No cyanosis, clubbing, or pedal edema. NEUROLOGICAL: Gross neurological examination did not reveal any focal deficits. SKIN: No rashes. no petechiae. - Labs CBC & Chem 7: 08/10/24 06:29 08/14/24 06:57 Labs: Abnormal Lab Results - Last 24 Hours (Table) 08/13/24 08/13/24 08/14/24 Range/Units 16:20 20:07 06:00 Sodium (137-145) mmol/L Chloride (98-107) mmol/L Carbon Dioxide (22-30) mmol/L Glucose (74-99) mg/dL POC Glucose (mg/dL) 160 H 166 H 155 H (70-110) mg/dL Calcium (8.4-10.2) mg/dL 08/14/24 08/14/24 Range/Units 06:57 11:11 Sodium 133 L (137-145) mmol/L Chloride 95 L (98-107) mmol/L Carbon Dioxide 32 H (22-30) mmol/L Glucose 127 H (74-99) mg/dL POC Glucose (mg/dL) 143 H (70-110) mg/dL Calcium 8.3 L (8.4-10.2) mg/dL Assessment and Plan Assessment: 1. Acute hypoxemic respiratory failure, secondary to pneumonia -- Patient is currently on O2 per nasal cannula after initially being on BiPAP; we will continue to titrate or wean FiO2 keeping O2 saturation above 92% -- 2. Acute supraventricular tachycardia; patient initially treated with IV amiodarone; has been transition to oral amiodarone at this point; cardiology on board. 3. Hypotension, consider sepsis/septic shock/pneumonia -- Patient remains on IV antibiotics in the form of Levaquin and Zosyn - ID on board 3. Acute kidney injury; resolved. 4. Elevated troponins rule out non-ST elevation TN; cardiology has continued ho me cardiac medications; Imdur is added; recommending ischemia workup once patient has recovered from acute illness. 5. History of hypertension; currently being treated for hypotension related to septic shock. 6. History of hyperlipidemia; Lipitor 80 mg daily. 7. Diabetes mellitus type 2, uncontrolled; monitor Accu-Cheks before every meal and at bedtime with insulin sliding scale. 8. History of coronary artery disease with previous PCI/stents. 9. History of peripheral vascular disease; patient remains on Lipitor and Plavix. -- History of left foot transmetatarsal amputation. 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 10. Ileus with abdominal x-ray showing distended stomach. NG tube ordered, general surgeon consulted, continue monitoring with bowel rest 11. Acute on chronic CHF, systolic with ejection fraction 35%, improving with IV Lasix DVT prophylaxis; SCDs/subcu heparin CODE STATUS; full code
[2024-08-14 20:35] LABS: Glucose,Whole Blood 182 mg/dL (70-110)
--- NOTE | 2024-08-14 23:24 | XR ---
EXAMINATION TYPE: XR chest 1V portable DATE OF EXAM: 08/14/2024 11:15 PM COMPARISON: Chest radiographs from 08/13/2024 TECHNIQUE: XR chest 1V portable Portable AP radiograph of the chest. CLINICAL INDICATION:Female, 63 years old with history of verify NG tube placement; FINDINGS: Lungs/Pleura: There is no evidence of pleural effusion or pneumothorax. Similar mild perihilar opacit y. Pulmonary vascularity: Unremarkable. Heart/mediastinum: Cardiomediastinal silhouette is unremarkable. Atherosclerotic calcifications are seen in the aorta. Musculoskeletal: No acute osseous pathology. Spinal stimulator leads along the lower thoracic spinal canal. Other findings: Cholecystectomy clips in the right upper quadrant. Gaseous distention of the stomach and bowel within the upper abdomen. Lines/Tubes: Interval placement of NG tube with distal tip within the stomach. The sidehole is at the GE junction. IMPRESSION: NG tube with distal tip within the stomach however the sidehole is at GE junction. Recommend advancem ent of approximately 9 cm. [facility], , 08/14/2024 11:21 PM
[2024-08-15 06:12] LABS: Glucose,Whole Blood 191 mg/dL (70-110)
--- NOTE | 2024-08-15 07:32 | XR ---
EXAMINATION TYPE: XR chest 1V DATE OF EXAM: 08/15/2024 COMPARISON: 08/14/2024 CLINICAL INDICATION: Female, 63 years old with history of check NGT placement; TECHNIQUE: Single frontal view of the chest is obtained. FINDINGS: NG tube courses below the diaphragm, advanced in the interval. Spinal stimulator a centime ter along the lower thoracic spinal canal. Heart upper limits of normal in size. Mild interstitial de nsity. Worsening retrocardiac opacity and development of a small left pleural effusion. IMPRESSION: 1. Interval advancement of the NG tube, now satisfactory. 2. Worsening small left pleural effusion with adjacent atelectasis and/or consolidation. 3. Possible mild pulmonary vascular congestion. [facility], , 08/15/2024 7:30 AM
[2024-08-15 08:50] LABS: Basophils # (A) 0.01 10*3/uL (0.00-0.10); Basophils % (A) 0.1 %; Eosinophils # (A) 0.04 10*3/uL (0.04-0.35); Eosinophils % (A) 0.3 %; HCT 28.2 % (37.2-46.3); HGB 8.9 g/dL (12.0-15.0); Lymphocytes # (A) 1.05 10*3/uL (0.90-5.00); Lymphocytes % (A) 8.6 %; MCH 27.1 pg (27.0-32.0); MCHC 31.6 g/dL (32.0-37.0); MCV 85.7 fL (80.0-97.0); Monocytes # (A) 0.59 10*3/uL (0.20-1.00); Monocytes % (A) 4.8 %; Neutrophils # (A) 10.49 10*3/uL (1.80-7.70); Neutrophils % (A) 85.8 %; Platelet Count 326 10*3/uL (140-440); RBC 3.29 10*6/uL (4.10-5.20); RDW 14.8 % (11.5-14.5); WBC 12.23 10*3/uL (4.50-10.00)
[2024-08-15 09:05] LABS: African American GFR (CKD) >90 (>60 ml/min/1.73 sqM); Anion Gap 7 mmol/L; Blood Urea Nitrogen 16 mg/dL (7-17); Calcium 8.7 mg/dL (8.4-10.2); Carbon Dioxide 33 mmol/L (22-30); Chloride 93 mmol/L (98-107); Glucose 166 mg/dL (74-99); Magnesium 1.8 mg/dL (1.6-2.3); Non-African American GFR(CKD) 88 (>60 ml/min/1.73 sqM); Potassium 3.9 mmol/L (3.5-5.1); Sodium 133 mmol/L (137-145)
[2024-08-15 11:45] LABS: Glucose,Whole Blood 209 mg/dL (70-110)
--- NOTE | 2024-08-15 14:16 | P.GSCN ---
History of Present Illness Consult date: 08/15/24 History of present illness: CHIEF COMPLAINT: Shortness of breath HISTORY OF PRESENT ILLNESS: This is a 63-year-old female who presented with shortness of breath. She is being treated for CHF exacerbation and pneumonia. She developed abdominal pain with abdominal distention. She had abdominal x-ray completed yesterday that had showed significant distention of the stomach and evidence of ileus. She had NG tube placed. She had 500 mL output yesterday and 280 mL output this morning. Patient reports it has been a few days since her last bowel movement. She is not having flatus. She reports that the nausea is improved since the NG tube placed. She denies any abdominal pain. Patient does have limited mobility and poorly controlled diabetic. Patient was just recently hospitalized earlier in July and at that time was evaluated for abdominal ileus as well. PAST MEDICAL HISTORY: See below PAST SURGICAL HISTORY: See below MEDICATIONS: See below ALLERGIES: See below SOCIAL HISTORY: No illicit drug use. REVIEW OF SYSTEMS: CONSTITUTIONAL: Denies fever or chills. HEENT: Denies blurred vision, vision changes, or eye pain. Denies hemoptysis CARDIOVASCULAR: Denies chest pain or pressure. RESPIRATORY: No shortness of breath. GASTROINTESTINAL: See HPI for pertinent findings HEMATOLOGIC: Denies bleeding disorders. GENITOURINARY: Denies any blood in urine or increased urinary frequency. SKIN: Denies pruitis. Denies rash. PHYSICAL EXAM: VITAL SIGNS: Reviewed GENERAL: Well-developed in no acute distress. HEENT: No sclera icterus. Extraocular movements grossly intact. Moist buccal mucosa. Head is atraumatic, normocephalic. No nasal drainage. ABDOMEN: Soft. Distended. Nontender. Tympanic. NEUROLOGIC: Alert and oriented. Cranial nerves II through XII grossly intact. LABORATORY DATA: WBC 12.23 Hgb 8.9 platelets 326 Sodium is 133 potassium 3.9 creatinine 0.74 Magnesium 1.8 IMAGING: Abdominal x-ray reports significant gaseous distention of the stomach with mottled appearance of the intraluminal contents which may relate to residual contrast versus enteric products. Given gaseous distention of the bowel in the right side abdomen findings likely relate to ileus. ASSESSMENT: 1. Abdominal ileus 2. Possible gastroparesis 3. Diabetes mellitus 4. Limited mobility 5. Pneumonia PLAN: - Continue NG tube for decompression - Keep patient n.p.o. - Agree with lactulose - Reglan added Physician Telecommunications Field Engineer note has been reviewed by physician. Signing provider agrees with the documented findings, assessment, and plan of care. I have personally seen and examined the patient, reviewed the ONCOLOGY PHYSICIAN ASSISTANT /PAs history, exam and MDM and agree with the assessment and plan as written. Based on total visit time, I have performed more than 50% of the visit. As above: Patient with recent ileus. CAT scan from a few weeks ago demonstrated significant ileus with small large and gastric distention. Patient's abdominal films at this time show significant gastric distention. Gastric tube was placed. 5 to 600 cc of output obtained. Patient has had some particulate matter in the gastric output and that is likely limiting further drainage to a degree. Keep nasogastric tube in place. Continue bowel rest. Past Medical History Past Medical History: CVA/TIA, Diabetes Mellitus, GERD/Reflux, Hyperlipidemia, Hypertension, Myocardial Infarction ([place]), Vascular Disorder Additional Past Medical History / Comment(s): 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 , unsteady gait., see Cardiology [facility] INPT FOR LT FOOT ULCER-WAS SEEN IN WOUND CARE 03/26/23-HAS DRESSING ON FOOT Last Myocardial Infarction Date:: february 2017 History of Any Multi-Drug Resistant Organisms: None Reported Past Surgical History: Back Surgery, Cholecystectomy, Heart Catheterization With Stent, Orthopedic Surgery Additional Past Surgical History / Comment(s): Right 5th toe amputation, lumbar fusion, spinal cord stimulator in place but not working., left knee arthroscopy, EGD, PATR[facility]IA, 3 cardiac stents, Aortoram, stent to left iliac artery. , stent right leg above the knee, right 4th toe amputation. ANGIOGRAM,m 04/11/23 left toes amputation. Past Anesthesia/Blood Transfusion Reactions: No Reported Reaction Additional Past Anesthesia/Blood Transfusion Reaction / Comm: . Date of Last Stent Placement:: 12/14/2021 Past Psychological History: Anxiety Smoking Status: Current every day smoker Past Alcohol Use History: None Reported Past Drug Use History: None Reported - Past Family History Father Family Medical History: Cancer, Liver Disease Additional Family Medical History / Comment(s): Idiopathic cirrhosis of liver, Liver Cancer. Mother Family Medical History: Coronary Artery Disease (CAD), Myocardial Infarction ([place]) Additional Family Medical History / Comment(s): Multiple stents. Mother at the age of 77 or 78 from [place]. Medications and Allergies Home Medications Medication Instructions Recorded Confirmed Type Atorvastatin [Lipitor] 80 mg PO HS 06/26/16 08/03/24 History Clopidogrel [Plavix] 75 mg PO DAILY 30 Days #30 tab 01/05/21 08/03/24 Rx DULoxetine HCL [Cymbalta] 60 mg PO HS 05/30/24 08/03/24 History Fenofibrate [Lofibra] 160 mg PO DAILY 05/30/24 08/03/24 History Gabapentin [Neurontin] 100 mg PO HS 05/30/24 08/03/24 History INSULIN LISPRO (humaLOG) [humaLOG] See Protocol SQ ACHS 05/30/24 08/03/24 History cilostazoL [Pletal] 50 mg PO BID 05/30/24 08/03/24 History Aspirin 81 mg PO BID #60 tab 05/31/24 08/03/24 Rx Acetaminophen Tab [Tylenol] 650 mg PO Q6HR PRN tab 08/01/24 08/03/24 Rx HYDROcodone/APAP 5-325MG [[place] 1 tab PO BID PRN #8 tab 08/01/24 08/03/24 Rx 5-325] Lactulose [Cephulac] 20 gm PO BID #360 ml 08/01/24 08/03/24 Rx Ondansetron Odt [Zofran Odt] 4 mg PO Q8HR PRN #20 tab 08/01/24 08/03/24 Rx Oxybutynin ER [Ditropan XL] 10 mg PO DAILY #30 tab 08/01/24 08/03/24 Rx Pantoprazole [Protonix] 40 mg PO DAILY #30 tab 08/01/24 08/03/24 Rx Simethicone 40 mg/0.6 ml Drops 40 mg PO QID #7 ml 08/01/24 08/03/24 Rx [Mylicon Drops] cefuroxime axetiL [Ceftin] 500 mg PO BID 7 Days #14 tab 08/01/24 08/03/24 Rx Allergies Allergy/AdvReac Type Severity Reaction Status Date / Time No Known Allergies Allergy Verified 08/03/24 18:43 Surgical - Exam Vital Signs Temp Pulse Resp BP Pulse Ox 100.3 F H 139 H 40 H 123/103 100 08/03/24 17:39 08/03/24 17:39 08/03/24 17:39 08/03/24 17:39 08/03/24 17:39 Results - Labs 08/15/24 08:27 08/15/24 08:27 Abnormal Lab Results - Last 24 Hours (Table) 08/14/24 08/14/24 08/15/24 Range/Units 16:21 20:25 06:11 WBC (4.50-10.00) 10*3/uL RBC (4.10-5.20) 10*6/uL Hgb (12.0-15.0) g/dL Hct (37.2-46.3) % MCHC (32.0-37.0) g/dL MPV (9.5-12.2) fL Immature Gran # (0.00-0.04) 10*3/uL Neutrophils # (1.80-7.70) 10*3/uL Sodium (137-145) mmol/L Chloride (98-107) mmol/L Carbon Dioxide (22-30) mmol/L Glucose (74-99) mg/dL POC Glucose (mg/dL) 161 H 182 H 191 H (70-110) mg/dL 08/15/24 08/15/24 08/15/24 Range/Units 08:27 08:27 11:43 WBC 12.23 H (4.50-10.00) 10*3/uL RBC 3.29 L (4.10-5.20) 10*6/uL Hgb 8.9 L (12.0-15.0) g/dL Hct 28.2 L (37.2-46.3) % MCHC 31.6 L (32.0-37.0) g/dL MPV 9.3 L (9.5-12.2) fL Immature Gran # 0.05 H (0.00-0.04) 10*3/uL Neutrophils # 10.49 H (1.80-7.70) 10*3/uL Sodium 133 L (137-145) mmol/L Chloride 93 L (98-107) mmol/L Carbon Dioxide 33 H (22-30) mmol/L Glucose 166 H (74-99) mg/dL POC Glucose (mg/dL) 209 H (70-110) mg/dL Diabetes panel 08/15/24 Range/Units 08:27 Sodium 133 L (137-145) mmol/L Potassium 3.9 (3.5-5.1) mmol/L Chloride 93 L (98-107) mmol/L Carbon Dioxide 33 H (22-30) mmol/L BUN 16 (7-17) mg/dL Creatinine 0.74 (0.52-1.04) mg/dL Glucose 166 H (74-99) mg/dL Calcium 8.7 (8.4-10.2) mg/dL Calcium panel 08/15/24 Range/Units 08:27 Calcium 8.7 (8.4-10.2) mg/dL Pituitary panel 08/15/24 Range/Units 08:27 Sodium 133 L (137-145) mmol/L Potassium 3.9 (3.5-5.1) mmol/L Chloride 93 L (98-107) mmol/L Carbon Dioxide 33 H (22-30) mmol/L BUN 16 (7-17) mg/dL Creatinine 0.74 (0.52-1.04) mg/dL Glucose 166 H (74-99) mg/dL Calcium 8.7 (8.4-10.2) mg/dL Adrenal panel 08/15/24 Range/Units 08:27 Sodium 133 L (137-145) mmol/L Potassium 3.9 (3.5-5.1) mmol/L Chloride 93 L (98-107) mmol/L Carbon Dioxide 33 H (22-30) mmol/L BUN 16 (7-17) mg/dL Creatinine 0.74 (0.52-1.04) mg/dL Glucose 166 H (74-99) mg/dL Calcium 8.7 (8.4-10.2) mg/dL
[2024-08-15] MEDS: METOCLOPRAMIDE 5 MG/ML 2 ML VIAL IVP SCH (14:28)
[2024-08-15 16:22] LABS: Glucose,Whole Blood 170 mg/dL (70-110)
--- NOTE | 2024-08-15 17:09 | P.PN ---
Subjective Progress Note Date: 08/15/24 Principal diagnosis: Reason for follow-up is fever/pneumonia Patient is a 63-year-old female with a past medical history significant for diabetes mellitus reflux hypertension hyperlipidemia MA CVA TIA previous patient noted to have history of recurrent UTI recently discharged from this hospital after receiving treatment for UTI cystitis has been brought back to the hospital concerning for generalized weakness along with mental status changes and low oxygen patient did have a low-grade fever chest x-ray with multifocal airspace opacity probably this consultation. On today's evaluation that is 08/15/2024, the patient did have low-grade fever of 99 F axillary this afternoon patient also noted to have significant projectile vomiting seen by general surgery concerning for ileus did have the NG tube placed patient is currently sleepy lethargic unable provide any history no diarrhea or any changes reported by the nursing staff patient currently on 2 L nasal cannula oxygen. The patient white count is up to 12.23, creatinine 0.74 chest x-ray with worsening small left effusion and/or consolidation Objective - Vital Signs Vital signs: Vital Signs Temp 99.0 F 08/15/24 15:15 Pulse 90 08/15/24 15:15 Resp 16 08/15/24 13:39 BP 108/68 08/15/24 15:15 Pulse Ox 94 L 08/15/24 15:15 FiO2 40 08/07/24 08:11 Intake & Output 08/14/24 08/15/24 08/15/24 18:59 06:59 18:59 Intake Total 380 30 120 Output Total 2049 2100 1730 Balance -1669 -2069 -1610 Weight 67.5 kg 67.5 kg Intake: IV 20 30 20 Invasive Line 4 10 Invasive Line 5 20 10 Invasive Line 6 10 20 Oral 360 Tube Feeding 100 Output: Gastric Drainage 500 580 Urine 2049 1400 1150 Emesis 200 Other: Voiding Method Indwelling Catheter Indwelling Catheter Indwelling Catheter - Exam GENERAL DESCRIPTION: Middle-age female lying in bed in no distress RESPIRATORY SYSTEM: Unlabored breathing , decreased breath sounds at bases HEART: S1 S2 regular rate and rhythm , ABDOMEN: Soft , no tenderness EXTREMITIES: Bilateral heel wounds are currently dressed - Labs CBC & Chem 7: 08/15/24 08:27 08/15/24 08:27 Labs: Abnormal Lab Results - Last 24 Hours (Table) 08/14/24 08/15/24 08/15/24 Range/Units 20:25 06:11 08:27 WBC 12.23 H (4.50-10.00) 10*3/uL RBC 3.29 L (4.10-5.20) 10*6/uL Hgb 8.9 L (12.0-15.0) g/dL Hct 28.2 L (37.2-46.3) % MCHC 31.6 L (32.0-37.0) g/dL MPV 9.3 L (9.5-12.2) fL Immature Gran # 0.05 H (0.00-0.04) 10*3/uL Neutrophils # 10.49 H (1.80-7.70) 10*3/uL Sodium (137-145) mmol/L Chloride (98-107) mmol/L Carbon Dioxide (22-30) mmol/L Glucose (74-99) mg/dL POC Glucose (mg/dL) 182 H 191 H (70-110) mg/dL 08/15/24 08/15/24 08/15/24 Range/Units 08:27 11:43 16:20 WBC (4.50-10.00) 10*3/uL RBC (4.10-5.20) 10*6/uL Hgb (12.0-15.0) g/dL Hct (37.2-46.3) % MCHC (32.0-37.0) g/dL MPV (9.5-12.2) fL Immature Gran # (0.00-0.04) 10*3/uL Neutrophils # (1.80-7.70) 10*3/uL Sodium 133 L (137-145) mmol/L Chloride 93 L (98-107) mmol/L Carbon Dioxide 33 H (22-30) mmol/L Glucose 166 H (74-99) mg/dL POC Glucose (mg/dL) 209 H 170 H (70-110) mg/dL Assessment and Plan (1) Pneumonia Current Visit: Yes Status: Acute Code(s): J18.9 - PNEUMONIA, UNSPECIFIED ORGANISM SNOMED Code(s): 002346460 (2) Sepsis Current Visit: Yes Status: Acute Code(s): A41.9 - SEPSIS, UNSPECIFIED ORGANISM SNOMED Code(s): 24784625 (3) Pressure ulcer, heel, right, unstageable Current Visit: No Status: Acute Code(s): L89.610 - PRESSURE ULCER OF RIGHT HEEL, UNSTAGEABLE SNOMED Code(s): 86769900521559736 Plan: 1patient presented to the hospital with sepsis in this patient who did have a fever tachycardia elevated white count meeting criteria for SIRS/sepsis with evidence of diffuse multifocal airspace opacities will need to cover for the resistant gram-negative with the likely pathogen as the patient was recently discharged from this facility and exposed to antibiotics 2blood culture remains to be negative sputum has already been collected, urine for Legionella antigen negative 3keep bilateral heel area of the pressure to prevent any worsening of the bilateral heel pressure ulcer 4-patient did have significant in her clinical condition with projectile vomiting concerning for ileus NG has been placed now with a low-grade fever white count trending up blood cultures has been requested and will start the patient on Zosyn and monitor clinical course closely Dictation was produced using [employer] dictation software. please excuse any gr ammatical, word or spelling errors. Time with Patient: Less than 30
[2024-08-15] MEDS: PIPERACILLIN-TAZOBACTAM 3.375 GM in SODIUM CHLORIDE 0.9% 100 ML IVPB SCH (17:24)
--- NOTE | 2024-08-15 18:12 | P.PN ---
Subjective Progress Note Date: 08/15/24 Patient is a 63 female with past medical history significant for hypertension, hyperlipidemia, diabetes mellitus type 2, coronary disease with previous PCI/stents, peripheral vascular disease, left foot metatarsal amputation as well as right fourth-fifth toe amputation. Of note, patient recently hospitalized May, with left hip fracture. CT of the left hip showing a nondisplaced oblique fracture through the superior corner of the left greater trochanter. Did return to the hospital 07/22/2024 with abdominal pain. Thought to possible have a urinary tract infection. Abdominal/pelvis CT remarkable for bilateral hydronephrosis, right greater than left, bladder wall thickening, and small bowel ileus. Incidental findings of bilateral pleural effusions and compressive atelectasis. Patient was discharged on 08/01/2024. Patient returns to the emergency department 2 days later complaining of increased weakness, fevers, and shortness of breath. She was placed on BiPAP initially in the ED. She was also noted to be hypotensive and has been fluid resuscitated with a total of 3 L of crystalloid fluid so far. Febrile with a temperature of 100.3 F. Workup including a chest x-ray showing multifocal airspace opacities concerning for pneumonia. Denies any coughing, sputum production, hemoptysis, chest pain. Denies any history of heart failure. Denies any lower extremity edema. Denies any she denies any dysuria, frequency, hematuria, suprapubic pain or flank pain. She is retaining urine and a bedside bladder scan showed 850 cc of urine in the bladder. Labs including a CBC with a WBC count of 19.4, hemoglobin 13, platelets 681. CMP: Sodium 131, potassium 4.3, chloride 100, serum bicarb 18, BUN 22, creatinine 1.36, glucose 389. Lactic was 2.7 is down to 2.5. LFTs not elevated. Troponin was 0.376. NT proBNP significantly elevated at 12,900. Patient currently being evaluated in the emergency department. She is on BiPAP with settings 14/6 and FiO2 40%. SpO2 reading 100% on bedside monitor. She does not appear to be any respiratory distress. Talking complete sentences. No accessory muscle use. She was easily transitioned to nasal cannula. Blood pressure currently 100/66 mmHg. She was empirically placed on a combination of Levaquin and Zosyn in the ED. Currently afebrile. The patient is seen today August 05, 2024 in follow-up on the selective care unit. She is currently resting in bed. Awake and alert in no acute distress. Maintaining O2 saturations in the 90s on 3 L/min per nasal cannula. She is afebrile. Hemodynamically stable. Chest x-ray reveals increased diffuse lung markings bilaterally. Urine culture positive for Chrissy. Blood culture pending. White count 9.7. Hemoglobin 8.8. Platelets 427. Sodium 140. Potassium 3.6. Bicarb 19. BUN 18. Creatinine 1.14. Glucose 189. Procalcitonin 21.6. She remains on DuoNeb inhalations, antibiotics in the form of Zosyn and Levaquin. Initiated on Diflucan. Heparin for DVT prophylaxis. Progress note dated August 06, 2024. The patient is seen today in room 372. She is currently resting in bed. She is awake and alert. No acute distress. The patient continues on 2 L nasal O2. She is getting saline at 75 cc an hour. She is hemodynamically stable. No new labs today other than a glucose of 201. Urine was positive for Chrissy. No new x-ray to report. The patient continues on fluconazole, Levaquin, and Zosyn. Progress note dated August 07, 2024. 63-year-old female who was transferred to the intensive care unit, at about 11 PM last night. She came in because of supraventricular tachycardia. She was moved over by my nurse practitioner. She is seen today in room 261. She is on 3 L nasal O2. She is getting saline at 75 cc an hour, and amiodarone 0.5 mg/min. She came into the intensive care unit, at 11 PM. She has been on BiPAP, at 14/6, 40%, for 6 hours. Current labs include a white count of 12.4, hemoglobin 9, hematocrit 27.9, platelet count 331,000. Sodium 134, potassium 3.7, chloride 102, CO2 23, anion gap 9, BUN 12, creatinine 0.63. Glucose 297. Calcium 7. Magnesium 1.3. Albumin 2.2. Urine culture was positive for Chrissy albicans. Chest x-ray shows an improved right lower lobe infiltrate, and possible mild fluid overload. Progress note dated August 08, 2024. 63-year-old female seen today in room 261. She is currently on 3 L of oxygen. She is getting saline at 75 cc an hour. Yesterday she was on IV amiodarone. Now she is on p.o. amiodarone. Clinically, she is doing well. Her major complaint is pain. She is also having some issues with insomnia. Anyway, I mention to her that she should talk to her hospital doctor about those 2 issues. Current labs include a white count of 10.0, hemoglobin 8.5, hematocrit 26.5, platelet count of 2 94,000. Sodium 135, potassium 3.9, chlorides 103, CO2 27, BUN 11, creatinine 0.71. Glucose is 150. Calcium is 7. Albumin is 2.1. Chest x-ray shows cardiomegaly, with pulmonary venous congestion. Progress note dated August 09, 2024. 63-year-old female seen today in room 353. She was in the intensive care unit yesterday. Is resting comfortably in bed. She is on saline at 75 cc an hour, and receiving nasal cannula, 3 L. No acute distress. She is awake and alert. White count 10.9, hemoglobin 8.9, hematocrit 27.6, platelet count is normal. Sodium 136, potassium 4.3, chlorides 105, CO2 26, BUN 10, and creatinine 0.58. Calcium is 7.4. Microbiology is currently negative. No chest x-ray today. Progress note dated August 10, 2024. 63-year-old female seen today in room 353. The patient is currently getting saline at 20 cc an hour. He is getting nasal oxygen, 3 L, O2 saturation 98%. She is in no acute distress. She is resting comfortably in bed. Her procalcitonin level was 21.6. White count 8.1, hemoglobin 8.6, hematocrit 27.1, platelet count 330,000. Sodium 137, potassium 3.8, chlorides 105, CO2 28, BUN 11, creatinine 0.65. Glucose is 102. Calcium is 7.6. On 08/11/2024, the patient is being seen for a follow-up. The patient is currently on 2 L of oxygen by nasal cannula. She is diuresing well and the patient remains in negative fluid balance. Over the past 48 hours, the patient had 2.4 L negative fluid balance and another 2 L negative fluid balance and she reports improvement lower extremity edema. Her echocardiogram shows an ejection fraction of 35% with questionable vegetation involving the aortic valve. Nevertheless, the patient's blood cultures been negative. IV fluids are currently at KVO. Ragland catheter is in place. Cardiac rhythm is sinus. The patient does have some increased abdominal tympany and distention. Nevertheless, she reports flatus and bowel movement activity. Chest x-ray shows improvement in CHF with mild residual pulm vessel congestion. Small left-sided pleural effusion is still present. The patient also had an abdominal x-ray and there is gas/distended stomach and colon but overall picture is nonobstructive. Possibility of underlying ileus cannot be completely ruled out. The white cell count is at 8 with a hemoglobin 8.6 and a platelet count of 330. Electrolytes are normal, BUN is 11 with a creatinine of 0.6. On 08/12/2024, the patient is being seen for a follow-up. On today's evaluation, the patient is in, comfortable and she is on 2 L of oxygen by nasal cannula. She is feeling well. She has systolic heart failure with an ejection fraction of 35% in addition to coronary artery disease, hypertension hyperlipidemia diabetes mellitus and peripheral vascular disease. She remains on IV Lasix. Fluid balance is -5 L over the past 24 hours and the repeat chest x-ray from yesterday showed improvement in the volume status and the patient had residual bilateral pleural effusion and atelectatic changes of mild pulm vascular congestion. Abdominal x-ray was consistent with possible ileus. Abdomen is less tympanic on today's evaluation and seems to be less distended. She has no other new complaints. No new labs are available from today. Ragland catheter is in place and the patient remains on IV Lasix and Aldactone. She is on Lantus insulin 11 units daily. She is on Levaquin. Rest of medications are essentially unchanged On 08/13/2024, I am seeing the patient for a follow-up. The patient is feeling better. She seems to be less short of breath. Oxygenation is stable and the patient is currently on 2 L of oxygen by nasal cannula with a pulse ox ranging between 94 to 97%. The patient is being diuresed with IV Lasix and the patient is negative fluid balance of 4.7 L over the past 24 hours. She remains on Lasix 20 mg IV push every 12 hours. She remains on DuoNeb treatments around -the-clock. She is on empiric antibiotic coverage with IV Levaquin. She is also on Aldactone. Rest of medications remain unchanged. No new labs are available from today. A repeat chest x-ray was done on 08/13/2024 and there is improved aeration bilaterally and there is some residual pulm vascular congestion and small left-sided pleural effusion still present. Overall x-ray findings have improved considerably. On 08/14/2024, the patient is being seen for a follow-up. The patient is doing well. The patient is diuresing adequately and the patient has been negative fluid balance of 3.5 L over the past 24 hours. Noted the patient remains on IV Lasix and the patient has produced excellent amount of urine output and she remains on a negative fluid balance. She remains on Lasix 20 mg IV every 12 hours. Rest of the medications are essentially unchanged. The patient remains on Aldactone 12.5 mg p.o. daily. She remains on Levaquin and this has been switched to 750 mg p.o. on a daily basis. Afebrile. Remains on DuoNeb updrafts. Blood work from today shows a sodium level of 133 with a potassium level of 4, BUN 16 with a creatinine of 0.8. The patient is currently on 3 S liters by nasal cannula with a pulse ox of 97%. She reports improvement in her breathing and the patient seems to be less short of breath. She has generalized weakness and fatigue. Abdomen is less distended. On 08/15/2024, the patient is being seen for a follow-up. The patient is stable from the pulmonary standpoint. She remains on 2 L of oxygen by nasal cannula with pulse ox of 98%. Nevertheless, overnight, the patient developed some increased abdominal distention. NG tube was inserted for gastric decompression and immediately 300 cc of gastric output was obtained. X-ray of the abdomen showed significant gastric distention of the stomach with intraluminal content. There is also gaseous distention of the bowel in the right side of the abdomen. Based on that, the patient was given an NG tube. Surgical consultation was also obtained and the patient will be given bowel rest, in addition to NG tube decompression. Lactulose was also added. Reglan was added. Otherwise, the patient is doing well. She is hemodynamically stable. Fluid balance is -3.7 L over the past 24 hours. Repeat chest x-ray shows small residual left-sided pleural effusion. The diuretics will be discontinued today. She continues to be on Levaquin. Zosyn was also added by infectious disease. The white cell count is at 12.2 with a hemoglobin 8.9 and a platelet count of 326. Electrolytes are all normal. Sodium level is at 133, bicarb is at 33, BUN 16 with a creatinine of 0.7. Objective - Vital Signs Vital signs: Vital Signs Temp 98.9 F 08/15/24 10:53 Pulse 78 08/15/24 10:53 Resp 16 08/15/24 10:53 BP 107/67 08/15/24 10:53 Pulse Ox 96 08/15/24 10:53 FiO2 40 08/07/24 08:11 Intake & Output 08/14/24 08/15/24 08/15/24 18:59 06:59 18:59 Intake Total 380 30 100 Output Total 2049 2100 1180 Balance -1670 -2069 -1080 Weight 67.5 kg Intake: IV 20 30 10 Invasive Line 4 10 Invasive Line 5 20 10 Invasive Line 6 10 10 Oral 360 90 Output: Gastric Drainage 500 280 Urine 2049 1400 900 Emesis 200 Other: Voiding Method Indwelling Catheter Indwelling Catheter Indwelling Catheter - Exam No acute distress, oriented 3. Patient continues on 2 L nasal cannula. The patient has an NG tube in place. Resting comfortably in bed. No significant respiratory distress. HEENT examination is grossly unremarkable. Mucous membranes are moist. No oral lesions. Neck supple. Full range of motion. No adenopathy thyromegaly or neck vein distention. Cardiovascular examination reveals regular rhythm rate. S1-S2 normal. No S3 or S4. No discernible murmur noted. Lungs reveal clear breath sounds. Breath sounds are equal bilaterally. No adventitious lung sounds including wheezes rhonchi or crackles. Abdomen soft bowel sounds are heard. No masses or tenderness. The abdomen is distended and the patient is tympanic to percussion. Bowel sounds are hypoactive. No direct tenderness. No rebound tenderness. No guarding. Extremities are intact. No cyanosis clubbing or edema. Toe amputations noted. Skin is without rash or lesion. Neurologic examination is brief but nonfocal. - Labs CBC & Chem 7: 08/15/24 08:27 08/15/24 08:27 Labs: Abnormal Lab Results - Last 24 Hours (Table) 08/14/24 08/14/24 08/15/24 Range/Units 16:21 20:25 06:11 WBC (4.50-10.00) 10*3/uL RBC (4.10-5.20) 10*6/uL Hgb (12.0-15.0) g/dL Hct (37.2-46.3) % MCHC (32.0-37.0) g/dL MPV (9.5-12.2) fL Immature Gran # (0.00-0.04) 10*3/uL Neutrophils # (1.80-7.70) 10*3/uL Sodium (137-145) mmol/L Chloride (98-107) mmol/L Carbon Dioxide (22-30) mmol/L Glucose (74-99) mg/dL POC Glucose (mg/dL) 161 H 182 H 191 H (70-110) mg/dL 08/15/24 08/15/24 Range/Units 08:27 08:27 WBC 12.23 H (4.50-10.00) 10*3/uL RBC 3.29 L (4.10-5.20) 10*6/uL Hgb 8.9 L (12.0-15.0) g/dL Hct 28.2 L (37.2-46.3) % MCHC 31.6 L (32.0-37.0) g/dL MPV 9.3 L (9.5-12.2) fL Immature Gran # 0.05 H (0.00-0.04) 10*3/uL Neutrophils # 10.49 H (1.80-7.70) 10*3/uL Sodium 133 L (137-145) mmol/L Chloride 93 L (98-107) mmol/L Carbon Dioxide 33 H (22-30) mmol/L Glucose 166 H (74-99) mg/dL POC Glucose (mg/dL) (70-110) mg/dL Assessment and Plan Plan: Acute hypoxemic respiratory failure, essentially secondary to CHF and volume overload. The patient is negative fluid balance and the follow-up chest x-ray continues to show improvement in volume status and there is some residual CHF with mild pulm vascular congestion and small left-sided pleural effusion still present on today's chest x-ray. Clinically the patient is gradually improving and the patient is currently on 2 L of oxygen by nasal cannula. Systolic heart failure, chronic, Echocardiogram was noted and the patient has an ejection fraction of 35% with questionable vegetation involving the aortic va lve. No significant valve heart disease and the patient has segmental wall motion abnormality involving the inferior, anterolateral and anterior lateral hypokinesis. Ileus, gastric distention post NG tube insertion for gastric decompression the patient is currently NPO. Hypotension, recovered and the patient is currently normotensive. Acute febrile illness, recovered and the patient is currently afebrile Acute leukocytosis, improved Urinary retention, has a Ragland catheter in place with adequate urine output Acute kidney injury, improved Coronary artery disease with previous PCI. The patient had elevated troponins rule out non-ST elevation VA. History of hypertension. History of hyperlipidemia. Diabetes mellitus type 2, uncontrolled. History of peripheral vascular disease. History of left foot transmetatarsal amputation. History of right 4th and 5th toe amputation on the right. History of nondisplaced oblique fracture of the left greater trochanter. Currently undergoing tobacco dependence. Plan: Clinically stable and the patient remains on 2 L of oxygen by nasal cannula Discontinue IV Lasix broad-spectrum antibiotic coverage with IV Zosyn and Levaquin Continue Aldactone 12.5 mg p.o. daily Chest x-ray f continues to show a small left-sided pleural effusion. Right lung findings of considerably improved. Continue rest of the oral medication this includes: Toprol-XL 12.5 mg p.o. daily Imdur 50 mg p.o. daily Farxiga 10 mg p.o. daily Amiodarone 200 mg p.o. daily continue bronchodilators With DuoNeb Continue Plavix Continue high-dose statins General Surgical consultation has been obtained Patient was given lactulose Repeat abdominal films in a.m. Will continue to follow and make further recommendations based on the progress. Time with Patient: Greater than 30
[2024-08-15] MEDS: BENZOCAINE SPRAY 1 EACH MUCOUS MEM SCH (18:33)
[2024-08-15] MEDS: SODIUM CHLORIDE 0.9% 500 ML 500 ML IV ONE (19:43)
[2024-08-15 20:20] LABS: Glucose,Whole Blood 186 mg/dL (70-110)
[2024-08-15] MEDS: BENZOCAINE/MENTHOL LOZENG 1 EACH LOZENGE MUCOUS MEM PRN (23:43)
--- NOTE | 2024-08-15 23:49 | P.PN ---
Subjective Date of the visit for this note is 08/11/2024 63-year-old female with a past medical history significant for diabetes mellitus reflux hypertension hyperlipidemia MD CVA TIA previous patient noted to have history of recurrent UTI recently discharged from this hospital after receiving treatment for UTI cystitis has been brought back to the hospital concerning for generalized weakness along with mental status changes and low oxygen patient did have a low-grade fever chest x-ray with multifocal airspace opacity probably this consultation. 08/08/2024 --Patient is seen and evaluated in ICU; the patient continues to be afebrile, the patient is on 3 L nasal cannula oxygen and breathing comfortably, the Pt denies having any chest pain or worsening cough, the patient denies having any abdominal pain no vomiting or any diarrhea has been complaining about her pain medication being inadequate. Blood work reveals WBC of 10, hemoglobin of 8.5 and platelet count of 294, sodium 135, potassium 3.9, BUN/creatinine of 11/0.71 -- urine for Legionella antigen negative blood cultures so far negative sputum not collected - chest x-ray cardiomegaly pulm vascular congestion bilateral effusion progressive in nature 08/09/2024 Patient is seen and evaluated in the intensive care unit yesterday. Is resting comfortably in bed. Currently saturating at 98% on nasal cannula, 3 L. No acute distress. She is awake and alert. Blood work reveals white count 10.9, hemoglobin 8.9, hematocrit 27.6, platelet count is normal. Sodium 136, potassium 4.3, chlorides 105, CO2 26, BUN 10, and creatinine 0.58. Calcium is 7.4. Microbiology is currently negative. No chest x-ray today. Patient has been transferred out of ICU; cardiology recommending to decrease amiodarone to 200 mg daily; patient remains on Lipitor, Plavix and cilostazol; fenofibrate was discontinued; cardiology recommending Farxiga 10 mg daily and Aldactone 12.5 mg 08/10/2024 Patient is seen and evaluated and discussed with nursing staff; received IM Zyprexa for agitation and anxiety last; patient is sleepy but arousable - Vital signs reviewed afebrile patient is currently on 3 L goal oxygen admission breathing comfortably Patient white count is 8.08, creatinine 0.65 blood culture negative patient presented to the hospital with sepsis in this patient who did have a fever tachycardia elevated white count meeting criteria for SIRS/sepsis with evidence of diffuse multifocal airspace opacities will need to cover for the resistant gram-negative with the likely pathogen as the patient was recently discharged from this facility and exposed to antibiotics blood culture remains to be negative sputum has already been collected, urine for Legionella antigen negative keep bilateral heel area of the pressure to prevent any worsening of the bilateral heel pressure ulcer -patient did have resolution of the fever and white count down normalized on Zosyn will consider short course of oral antibiotic on discharge 08/11 Patient still remains mildly tachypneic but her breathing is improving slowly and gradually. Chest x-ray showing improving consolidation and improving fluid overload. Patient remains on IV Lasix with negative fluid balance Her abdomen is mildly distended, she says she has 1 bowel movement which is loose. Abdominal x-ray showing ileus. I talked to the patient about placement and she agreed to talk to the social media marketing analyst for possible rehab placement upon discharge whenever ready In the meantime she remains on IV Zosyn and Levaquin. Also she is on IV Lasix 20 mg twice daily. Continued with Aldactone. 08/12 Patient lying in bed with no distress No significant dyspnea at rest, she is on 2 L oxygen She still have evidence of fluid overload she is still kept on IV Lasix 20 mg twice daily. She has almost several liters of urine output over the last 24 hours. Possible discharge in 24 to 48 hours if keeps improving 08/13 Patient is improving significantly and his breathing is improved She is kept on IV Lasix and she was making 2 to 3 L of urine output this morning, because of the benefits and significant lower in her fluid overload we will going to keep her for another 24 hours with IV Lasix No labs today, rechecking labs in the morning If she keeps improving no other new complaint may be considered for discharge 08/14 Patient still has bilateral leg swelling She is making good amount of urine output about 1 to 2 L every shift She does not want to go to rehab although she is severely weak she is adamant to go home with home care after several times we discussed with her. She has Ragland catheter in place However in the afternoon patient started develop more abdominal distention, abdominal x-ray requested as patient vomited once showing significant gaseous distention of the stomach, NG tube recommended which is ordered, Make the patient n.p.o., surgery team also consulted Discussed with the staff of day and scene shifter. Continue close monitoring 08/15 Patient developed abdominal distention and vomiting and abdominal x-ray showing distended gas filled stomach and ileus NG tube was placed which helped for decompression surgical consult was obtained who recommended Reglan and lactulose which were added Also patient continued on IV Lasix and diuresing and continued on IV antibiotics with Zosyn WBC 12.2, hemoglobin 8.9 Blood pressure is soft low side up with systolic 80s to 90s Patient remains sleepy in bed still with bilateral leg edema Ragland catheter in place, NG tube in place Patient eventually does not want to go to subacute rehab with risk-benefit explained to her Active Medications Generic Name Dose Route Start Last Admin Trade Name Freq PRN Reason Stop Dose Admin Acetaminophen 650 mg 08/04/24 23:23 08/15/24 17:21 Acetaminophen Tab 325 Mg Tab PO 650 mg Q4HR PRN Administration Fever and/ or Pain Hydrocodone Bitart/Acetaminophen 1 each 08/07/24 13:43 08/15/24 09:14 Hydrocodone/Apap 5-325mg 1 Each Tab PO 1 each Q6H PRN Administration Severe Pain (Scale 7 to 10) Al Hydroxide/Mg Hydroxide 30 ml 08/14/24 16:19 08/14/24 16:29 Mag Hydrox/Al Hydrox/Simeth 30 Ml Cup PO 30 ml Q4HR PRN Administration GI Upset Albuterol/Ipratropium 3 ml 08/03/24 22:30 08/15/24 20:46 Ipratropium-Albuterol 3 Ml Neb INHALATION Not Given RT-TID MAGALY Albuterol/Ipratropium 3 ml 08/03/24 22:30 Ipratropium-Albuterol 3 Ml Neb INHALATION RT-TID PRN Shortness Of Breath Or Wheezing Alprazolam 0.25 mg 08/04/24 17:03 08/14/24 08:27 Alprazolam 0.25 Mg Tab PO 0.25 mg BID PRN Administration Anxiety Amiodarone HCl 200 mg 08/10/24 09:00 08/15/24 09:12 Amiodarone 200 Mg Tab PO 200 mg DAILY MAGALY Administration Atorvastatin Calcium 80 mg 08/04/24 21:00 08/15/24 20:36 Atorvastatin 80 Mg Tab PO 80 mg HS MAGALY Administration Benzocaine 1 each 08/15/24 21:00 08/15/24 18:33 Benzocaine Victor 1 Each MUCOUS MEM 1 each BID MAGALY Administration Benzocaine/Menthol 1 each 08/15/24 18:15 08/15/24 23:43 Benzocaine/Menthol Lozeng 1 Each Lozenge MUCOUS MEM 1 each Q4HR PRN Administration Sore Throat Bisacodyl 10 mg 08/07/24 13:45 08/15/24 09:15 Bisacodyl 10 Mg Supp RECTAL Not Given DAILY MAGALY Cilostazol 100 mg 08/09/24 21:00 08/15/24 20:35 Cilostazol 100 Mg Tab PO 100 mg BID MAGALY Administration Clopidogrel Bisulfate 75 mg 08/05/24 09:00 08/15/24 09:12 Clopidogrel 75 Mg Tab PO 75 mg DAILY MAGALY Administration Dapagliflozin 10 mg 08/09/24 17:15 08/15/24 09:12 Dapagliflozin Propanediol 10 Mg Tablet PO 10 mg DAILY MAGALY Administration Dextrose/Water 25 ml 08/03/24 22:52 Dextrose 50% Syringe 50 Ml IVP PER PROTOCOL PRN Hypoglycemia Protocol Dextrose/Water 50 ml 08/03/24 22:52 Dextrose 50% Syringe 50 Ml IVP PER PROTOCOL PRN Hypoglycemia Protocol Fluconazole 100 mg 08/06/24 09:00 08/15/24 09:12 Fluconazole 100 Mg Tab PO 100 mg DAILY MAGALY Administration Protocol Gabapentin 100 mg 08/04/24 21:00 08/15/24 20:35 Gabapentin 100 Mg Cap PO 100 mg HS MAGALY Administration Heparin Sodium (Porcine) 5,000 unit 08/03/24 22:45 08/15/24 20:36 Heparin Sodium,Porcine 5,000 Unit/Ml 1 Ml Vial SQ 5,000 unit Q12HR MAGALY Administration Sodium Chloride 1,000 mls @ 20 mls/hr 08/06/24 23:45 08/15/24 09:04 Saline 0.9% IV Not Given .Q24H MAGALY Piperacillin Sod/Tazobactam 100 mls @ 25 mls/hr 08/15/24 17:15 08/15/24 23:28 Sod 3.375 gm/ Sodium Chloride IVPB 25 mls/hr Q8HR MAGALY Administration Protocol Insulin Glargine 11 unit 08/03/24 22:54 08/15/24 20:22 Insulin Glargine (Lantus) 100 Unit/Ml Syr 0.15 unit/kg (11 unit) Not Given SQ BID@0700,2100 [facility] Insulin Human Lispro 0 unit 08/04/24 07:30 08/15/24 20:36 Insulin Lispro (Humalog) 100 Unit/Ml 10 Ml Vl SQ 1 unit ACHS MAGALY Administration Protocol Isosorbide Mononitrate 15 mg 08/05/24 11:45 08/15/24 09:14 Isosorbide Mononitrate Er 15 Mg Tab PO 15 mg DAILY MAGALY Administration Lactulose 20 gm 08/04/24 12:15 08/15/24 20:36 Lactulose 20 Gm/30 Ml Cup PO 20 gm BID MAGALY Administration Levofloxacin 750 mg 08/14/24 09:00 08/15/24 09:13 Levofloxacin 750 Mg Tab PO 08/16/24 09:01 750 mg DAILY MAGALY Administration Protocol Losartan Potassium 12.5 mg 08/09/24 17:15 08/15/24 09:13 Losartan 25 Mg Tab PO 12.5 mg DAILY MAGALY Administration Metoclopramide HCl 10 mg 08/15/24 14:15 08/15/24 23:29 Metoclopramide 5 Mg/Ml 2 Ml Vial IVP 10 mg Q6HR MAGALY Administration Metoprolol Succinate 12.5 mg 08/09/24 17:15 08/15/24 09:13 Metoprolol Succinate (Er) 25 Mg Tab.Er.24h PO 12.5 mg DAILY MAGALY Administration Miscellaneous Information 1 each 08/07/24 11:49 Magnesium Replacement Protocol 1 Each Misc MISCELLANE DAILY PRN Per Protocol Protocol Miscellaneous Information 1 each 08/07/24 11:49 Potassium Replacement Protocol 1 Each Misc MISCELLANE DAILY PRN Per Protocol Protocol Morphine Sulfate 2 mg 08/08/24 22:41 08/15/24 18:00 Morphine Sulfate 2 Mg/Ml Syringe IVP 2 mg Q6HR PRN Administration Pain/Discomfort Naloxone HCl 0.2 mg 08/03/24 19:59 Naloxone 0.4 Mg/Ml 1 Ml Vial IV Q2M PRN Opioid Reversal Nitroglycerin 0.4 mg 08/05/24 09:32 08/05/24 09:43 Nitroglycerin Sl Tabs 0.4 Mg Tab SUBLINGUAL 0.4 mg Q5M PRN Administration Chest Pain Ondansetron HCl 4 mg 08/03/24 19:59 08/15/24 05:00 Ondansetron 4 Mg/2 Ml Vial IVP 4 mg Q8HR PRN Administration Nausea And Vomiting Ondansetron HCl 4 mg 08/04/24 11:59 08/13/24 08:44 Ondansetron Odt 4 Mg Tab PO 4 mg Q8HR PRN Administration Nausea Oxybutynin Chloride 10 mg 08/04/24 12:15 08/15/24 09:14 Oxybutynin 10 Mg Tab.Er.24 PO 10 mg DAILY MAGALY Administration Pantoprazole Sodium 40 mg 08/03/24 22:45 08/15/24 20:36 Pantoprazole 40 Mg/10 Ml Vial IVP 40 mg BID MAGALY Administration Petrolatum 1 applic 08/06/24 18:13 Zinc Oxide Paste (Z-Guard) 1 Applic TOPICAL Q2HR PRN Wound Healing Protocol Senna 8.6 mg 08/07/24 13:45 08/15/24 20:35 Sennosides 8.6 Mg Tab PO 8.6 mg BID MAGALY Administration Simethicone 40 mg 08/04/24 13:00 08/15/24 20:38 Simethicone 40 Mg/0.6 Ml Drops 2,000 Mg/30 Ml Bottle PO 40 mg QID MAGALY Administration Spironolactone 12.5 mg 08/09/24 17:15 08/15/24 09:13 Spironolactone 25 Mg Tab PO 12.5 mg DAILY MAGALY Administration Objective - Vital Signs Vital signs: Vital Signs Temp 99.0 F 08/15/24 15:15 Pulse 90 08/15/24 15:15 Resp 16 08/15/24 13:39 BP 108/68 08/15/24 15:15 Pulse Ox 94 L 08/15/24 15:15 FiO2 40 08/07/24 08:11 Intake & Output 08/14/24 08/15/24 08/15/24 18:59 06:59 18:59 Intake Total 380 30 120 Output Total 2049 2099 1730 Balance -1669 -2069 -161 Weight 67.5 kg 67.5 kg Intake: IV 20 30 20 Invasive Line 4 10 Invasive Line 5 20 10 Invasive Line 6 10 20 Oral 360 Tube Feeding 100 Output: Gastric Drainage 500 580 Urine 2049 1400 1150 Emesis 200 Other: Voiding Method Indwelling Catheter Indwelling Catheter Indwelling Catheter - Exam GENERAL: The patient is alert and oriented x3, not in any acute distress. Well developed, well nourished. HEENT: Pupils are round and equally reacting to light. EOMI. No scleral icterus. No conjunctival pallor. Normocephalic, atraumatic. No pharyngeal erythema. No thyromegaly. CARDIOVASCULAR: S1 and S2 present. No murmurs, rubs, or gallops. -PULMONARY: Chest is clear to auscultation, no wheezing , mild bilateral base crackles. -ABDOMEN: Soft, nontender, mildly distended, normoactive bowel sounds. No palpable organomegaly. NG tube in place MUSCULOSKELETAL: No joint swelling or deformity. EXTREMITIES: No cyanosis, clubbing, or pedal edema. NEUROLOGICAL: Gross neurological examination did not reveal any focal deficits. SKIN: No rashes. no petechiae. - Labs CBC & Chem 7: 08/15/24 08:08/15/24 08: Labs: Abnormal Lab Results - Last 24 Hours (Table) 08/14/24 08/14/24 08/15/24 Range/Units 16:21 20:25 06:11 WBC (4.50-10.00) 10*3/uL RBC (4.10-5.20) 10*6/uL Hgb (12.0-15.0) g/dL Hct (37.2-46.3) % MCHC (32.0-37.0) g/dL MPV (9.5-12.2) fL Immature Gran # (0.00-0.04) 10*3/uL Neutrophils # (1.80-7.70) 10*3/uL Sodium (137-145) mmol/L Chloride (98-107) mmol/L Carbon Dioxide (22-30) mmol/L Glucose (74-99) mg/dL POC Glucose (mg/dL) 161 H 182 H 191 H (70-110) mg/dL 08/15/24 08/15/24 08/15/24 Range/Units 08: 08: 11:43 WBC 12.23 H (4.50-10.00) 10*3/uL RBC 3.29 L (4.10-5.20) 10*6/uL Hgb 8.9 L (12.0-15.0) g/dL Hct 28.2 L (37.2-46.3) % MCHC 31.6 L (32.0-37.0) g/dL MPV 9.3 L (9.5-12.2) fL Immature Gran # 0.05 H (0.00-0.04) 10*3/uL Neutrophils # 10.49 H (1.80-7.70) 10*3/uL Sodium 133 L (137-145) mmol/L Chloride 93 L (98-107) mmol/L Carbon Dioxide 33 H (22-30) mmol/L Glucose 166 H (74-99) mg/dL POC Glucose (mg/dL) 209 H (70-110) mg/dL Assessment and Plan Assessment: 1. Acute hypoxemic respiratory failure, secondary to pneumonia -- Patient is currently on O2 per nasal cannula after initially being on BiPAP; we will continue to titrate or wean FiO2 keeping O2 saturation above 92% -- 2. Acute abdominal/intestinal ileus with possible gastroparesis: Placed NG tube under low pressure suction, surgical team consult, lactulose and Reglan 3. Hypotension, consider sepsis/septic shock/pneumonia -- Patient remains on IV antibiotics in the form of Levaquin and Zosyn - ID on board 3. Acute kidney injury; resolved. 4. Elevated troponins rule out non-ST elevation MD; cardiology has continued home cardiac medications; Imdur is added; recommending ischemia workup once patient has recovered from acute illness. 5. History of hypertension; currently being treated for hypotension related to septic shock. 6. History of hyperlipidemia; Lipitor 80 mg daily. 7. Diabetes mellitus type 2, uncontrolled; monitor Accu-Cheks before every meal and at bedtime with insulin sliding scale. 8. History of coronary artery disease with previous PCI/stents. 9. History of peripheral vascular disease; patient remains on Lipitor and Plavix. -- History of left foot transmetatarsal amputation. 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 10. Ileus with abdominal x-ray showing distended stomach. NG tube ordered, general surgeon consulted, continue monitoring with bowel rest 11. Acute on chronic CHF, systolic with ejection fraction 35%, improving with IV Lasix 12. Acute supraventricular tachycardia; patient initially treated with IV amiodarone; has been transition to oral amiodarone at this point; cardiology on board. DVT prophylaxis; SCDs/subcu heparin CODE STATUS; full code
[2024-08-16 06:11] LABS: Glucose,Whole Blood 158 mg/dL (70-110)
[2024-08-16 07:35] LABS: Basophils # (A) 0.03 10*3/uL (0.00-0.10); Basophils % (A) 0.2 %; Eosinophils # (A) 0.05 10*3/uL (0.04-0.35); Eosinophils % (A) 0.3 %; HCT 27.7 % (37.2-46.3); HGB 8.5 g/dL (12.0-15.0); Lymphocytes # (A) 1.21 10*3/uL (0.90-5.00); Lymphocytes % (A) 7.7 %; MCH 26.8 pg (27.0-32.0); MCHC 30.7 g/dL (32.0-37.0); MCV 87.4 fL (80.0-97.0); Monocytes # (A) 0.65 10*3/uL (0.20-1.00); Monocytes % (A) 4.1 %; Neutrophils # (A) 13.72 10*3/uL (1.80-7.70); Neutrophils % (A) 87.3 %; Platelet Count 326 10*3/uL (140-440); RBC 3.17 10*6/uL (4.10-5.20); RDW 15.1 % (11.5-14.5); WBC 15.73 10*3/uL (4.50-10.00)
--- NOTE | 2024-08-16 07:49 | XR ---
EXAMINATION TYPE: XR abdomen 2V DATE OF EXAM: 08/16/2024 6:39 AM COMPARISON: 08/14/2024. CLINICAL INDICATION: Female, 63 years old with history of Ileus; [facility] TECHNIQUE: Two views of the abdomen were obtained. FINDINGS: Moderate amount stool throughout the colon. The bowel gas pattern is nonspecific without d ilated loops of small or large bowel. . Fecal material and gas are demonstrated throughout the colon and rectum. There is no evidence for organomegaly or pneumoperitoneum. No acute osseous process. No abnormal calcifications are present. Fixation hardware in the lower spine appears intact. Degeneration changes of the hips with osteophyte formation and joint space narrowing. Multilevel degeneration changes of the spine Nasogastric tube terminating over the upper abdomen gastric lumen. IMPRESSION: Nonspecific bowel gas pattern without radiographic evidence for acute process. [facility], , 08/16/2024 7:47 AM
[2024-08-16 07:52] LABS: African American GFR (CKD) 89 (>60 ml/min/1.73 sqM); Anion Gap 8 mmol/L; Blood Urea Nitrogen 19 mg/dL (7-17); Calcium 8.2 mg/dL (8.4-10.2); Carbon Dioxide 29 mmol/L (22-30); Chloride 100 mmol/L (98-107); Glucose 149 mg/dL (74-99); Non-African American GFR(CKD) 78 (>60 ml/min/1.73 sqM); Potassium 3.8 mmol/L (3.5-5.1); Sodium 137 mmol/L (137-145)
--- NOTE | 2024-08-16 09:59 | P.PN ---
Subjective Progress Note Date: 08/16/24 Principal diagnosis: Ileus/gastroparesis Patient tearful this morning. Once again requesting nasogastric tube be removed. Unfortunately output overnight has been minimal and today's x-ray still shows some moderate air within the gastric lumen. Did have a small amount of flatus and some loose liquid stools she states. White blood cell count 15.7. Patient apparently was telling the nurse yesterday that she was considering changing CODE STATUS. Denies any significant abdominal pain currently. Objective - Vital Signs Vital signs: Vital Signs Temp 98 F 08/16/24 03:05 Pulse 79 08/16/24 07:34 Resp 16 08/16/24 07:34 BP 79/46 08/16/24 07:34 Pulse Ox 95 08/16/24 07:34 FiO2 40 08/07/24 08:11 Intake & Output 08/15/24 08/16/24 08/16/24 18:59 06:59 18:59 Intake Total 120 20 10 Output Total 2580 650 Balance -2460 -630 10 Weight 67.5 kg 66.6 kg Intake: IV 20 20 10 Invasive Line 6 20 20 10 Tube Feeding 100 Output: Gastric Drainage 580 Urine 2000 650 Other: Voiding Method Indwelling Catheter Indwelling Catheter Indwelling Catheter # Bowel Movements 0 - Exam Abdomen: Soft, mild distention, mild diffuse tenderness - Labs CBC & Chem 7: 08/16/24 06:16 08/16/24 06:16 Labs: Abnormal Lab Results - Last 24 Hours (Table) 08/15/24 08/15/24 08/15/24 Range/Units 11:43 16:20 20:18 WBC (4.50-10.00) 10*3/uL RBC (4.10-5.20) 10*6/uL Hgb (12.0-15.0) g/dL Hct (37.2-46.3) % MCH (27.0-32.0) pg MCHC (32.0-37.0) g/dL Immature Gran # (0.00-0.04) 10*3/uL Neutrophils # (1.80-7.70) 10*3/uL BUN (7-17) mg/dL Glucose (74-99) mg/dL POC Glucose (mg/dL) 209 H 170 H 186 H (70-110) mg/dL Calcium (8.4-10.2) mg/dL 08/16/24 08/16/24 08/16/24 Range/Units 06:09 06:16 06:16 WBC 15.73 H (4.50-10.00) 10*3/uL RBC 3.17 L (4.10-5.20) 10*6/uL Hgb 8.5 L (12.0-15.0) g/dL Hct 27.7 L (37.2-46.3) % MCH 26.8 L (27.0-32.0) pg MCHC 30.7 L (32.0-37.0) g/dL Immature Gran # 0.07 H (0.00-0.04) 10*3/uL Neutrophils # 13.72 H (1.80-7.70) 10*3/uL BUN 19 H (7-17) mg/dL Glucose 149 H (74-99) mg/dL POC Glucose (mg/dL) 158 H (70-110) mg/dL Calcium 8.2 L (8.4-10.2) mg/dL Assessment and Plan (1) Ileus Narrative/Plan: Options reviewed with patient and nursing staff. The nasogastric tube that is currently in place I suspect is partially occluded from particulate matter in the gastric lumen when placed initially. Patient is asking/almost insisting gastric to be removed. Will remove the current NG tube at this time. Will repeat abdominal x-rays tomorrow. If persistent gastric distention again noted would discuss with patient options of replacement. Also discussed the option of CAT scan. Last CAT scan was performed on 07/28. Clinically the patient's abdomen has improved however. Will hold off on CAT scan at this time. Keep NPO. Further discussions between medical service and patient regarding CODE STATUS. Current Visit: Yes Status: Acute Code(s): K56.7 - ILEUS, UNSPECIFIED SNOMED Code(s): 394874929
[2024-08-16 11:31] LABS: Glucose,Whole Blood 142 mg/dL (70-110)
--- NOTE | 2024-08-16 14:56 | P.PN ---
Subjective Progress Note Date: 08/16/24 Principal diagnosis: Reason for follow-up is fever/pneumonia Patient is a 63-year-old female with a past medical history significant for diabetes mellitus reflux hypertension hyperlipidemia MA CVA TIA previous patient noted to have history of recurrent UTI recently discharged from this hospital after receiving treatment for UTI cystitis has been brought back to the hospital concerning for generalized weakness along with mental status changes and low oxygen patient did have a low-grade fever chest x-ray with multifocal airspace opacity probably this consultation. On today's evaluation that is 08/17/2023, patient did have a temperature of 98.4 F this morning patient is more awake and alert today NG has been discontinued denies any further vomiting patient is currently on 2 L nasal cannula oxygen belly is soft and having bowel movement. Patient white count is 15.73, creatinine 0.82 blood culture repeat currently pending Objective - Vital Signs Vital signs: Vital Signs Temp 97.4 F L 08/16/24 11:30 Pulse 77 08/16/24 11:30 Resp 16 08/16/24 11:30 BP 108/53 08/16/24 11:30 Pulse Ox 96 08/16/24 11:30 FiO2 40 08/07/24 08:11 Intake & Output 08/15/24 08/16/24 08/16/24 18:59 06:59 18:59 Intake Total 120 20 610 Output Total 2580 650 Balance -2460 -630 610 Weight 67.5 kg 66.6 kg Intake: IV 20 20 10 Invasive Line 6 20 20 10 Intake, IV Titration 600 Amount Piperacillin-Tazobactam 3 100 .375 gm In Sodium Chloride 0.9% 100 ml @ 25 mls/hr IVPB Q8HR [facility] Rx# :[id number] Sodium Chloride 0.9% 500 500 ml 500 ml @ 999 mls/hr IV .Q31M ONE Rx#:[id number] Tube Feeding 100 Output: Gastric Drainage 580 Urine 2000 650 Other: Voiding Method Indwelling Catheter Indwelling Catheter Indwelling Catheter # Bowel Movements 0 - Exam GENERAL DESCRIPTION: Middle-age female lying in bed in no distress RESPIRATORY SYSTEM: Unlabored breathing , decreased breath sounds at bases HEART: S1 S2 regular rate and rhythm , ABDOMEN: Soft , no tenderness EXTREMITIES: Bilateral heel wounds are currently dressed - Labs CBC & Chem 7: 08/16/24 06:16 08/16/24 06:16 Labs: Abnormal Lab Results - Last 24 Hours (Table) 08/15/24 08/15/24 08/16/24 Range/Units 16:20 20:18 06:09 WBC (4.50-10.00) 10*3/uL RBC (4.10-5.20) 10*6/uL Hgb (12.0-15.0) g/dL Hct (37.2-46.3) % MCH (27.0-32.0) pg MCHC (32.0-37.0) g/dL Immature Gran # (0.00-0.04) 10*3/uL Neutrophils # (1.80-7.70) 10*3/uL BUN (7-17) mg/dL Glucose (74-99) mg/dL POC Glucose (mg/dL) 170 H 186 H 158 H (70-110) mg/dL Calcium (8.4-10.2) mg/dL 08/16/24 08/16/24 08/16/24 Range/Units 06:16 06:16 11:30 WBC 15.73 H (4.50-10.00) 10*3/uL RBC 3.17 L (4.10-5.20) 10*6/uL Hgb 8.5 L (12.0-15.0) g/dL Hct 27.7 L (37.2-46.3) % MCH 26.8 L (27.0-32.0) pg MCHC 30.7 L (32.0-37.0) g/dL Immature Gran # 0.07 H (0.00-0.04) 10*3/uL Neutrophils # 13.72 H (1.80-7.70) 10*3/uL BUN 19 H (7-17) mg/dL Glucose 149 H (74-99) mg/dL POC Glucose (mg/dL) 142 H (70-110) mg/dL Calcium 8.2 L (8.4-10.2) mg/dL Assessment and Plan (1) Pneumonia Current Visit: Yes Status: Acute Code(s): J18.9 - PNEUMONIA, UNSPECIFIED ORGANISM SNOMED Code(s): 928130722 (2) Sepsis Current Visit: Yes Status: Acute Code(s): A41.9 - SEPSIS, UNSPECIFIED ORGANISM SNOMED Code(s): 97772054 (3) Pressure ulcer, heel, right, unstageable Current Visit: No Status: Acute Code(s): L89.610 - PRESSURE ULCER OF RIGHT HEEL, UNSTAGEABLE SNOMED Code(s): 09766976056715147 Plan: 1patient presented to the hospital with sepsis in this patient who did have a fever tachycardia elevated white count meeting criteria for SIRS/sepsis with evidence of diffuse multifocal airspace opacities will need to cover for the resistant gram-negative with the likely pathogen as the patient was recently discharged from this facility and exposed to antibiotics 2blood culture remains to be negative sputum has already been collected, urine for Legionella antigen negative 3keep bilateral heel area of the pressure to prevent any worsening of the bilateral heel pressure ulcer 4-patient did have resolution of the fever white count still up and she has been discontinued we will keep the patient on Zosyn and monitor clinical course closely Dictation was produced using [employer] dictation software. please excuse any grammatical, word or spelling errors. Time with Patient: Less than 30
--- NOTE | 2024-08-16 15:53 | P.PN ---
Subjective Progress Note Date: 08/16/24 Patient is a 63 female with past medical history significant for hypertension, hyperlipidemia, diabetes mellitus type 2, coronary disease with previous PCI/stents, peripheral vascular disease, left foot metatarsal amputation as well as right fourth-fifth toe amputation. Of note, patient recently hospitalized May, with left hip fracture. CT of the left hip showing a nondisplaced oblique fracture through the superior corner of the left greater trochanter. Did return to the hospital 07/22/2024 with abdominal pain. Thought to possible have a urinary tract infection. Abdominal/pelvis CT remarkable for bilateral hydronephrosis, right greater than left, bladder wall thickening, and small bowel ileus. Incidental findings of bilateral pleural effusions and compressive atelectasis. Patient was discharged on 08/01/2024. Patient returns to the emergency department 2 days later complaining of increased weakness, fevers, and shortness of breath. She was placed on BiPAP initially in the ED. She was also noted to be hypotensive and has been fluid resuscitated with a total of 3 L of crystalloid fluid so far. Febrile with a temperature of 100.3 F. Workup including a chest x-ray showing multifocal airspace opacities concerning for pneumonia. Denies any coughing, sputum production, hemoptysis, chest pain. Denies any history of heart failure. Denies any lower extremity edema. Denies any she denies any dysuria, frequency, hematuria, suprapubic pain or flank pain. She is retaining urine and a bedside bladder scan showed 850 cc of urine in the bladder. Labs including a CBC with a WBC count of 19.4, hemoglobin 13, platelets 681. CMP: Sodium 131, potassium 4.3, chloride 100, serum bicarb 18, BUN 22, creatinine 1.36, glucose 389. Lactic was 2.7 is down to 2.5. LFTs not elevated. Troponin was 0.376. NT proBNP significantly elevated at 12,900. Patient currently being evaluated in the emergency department. She is on BiPAP with settings 14/6 and FiO2 40%. SpO2 reading 100% on bedside monitor. She does not appear to be any respiratory distress. Talking complete sentences. No accessory muscle use. She was easily transitioned to nasal cannula. Blood pressure currently 100/66 mmHg. She was empirically placed on a combination of Levaquin and Zosyn in the ED. Currently afebrile. The patient is seen today August 05, 2024 in follow-up on the selective care unit. She is currently resting in bed. Awake and alert in no acute distress. Maintaining O2 saturations in the 90s on 3 L/min per nasal cannula. She is afebrile. Hemodynamically stable. Chest x-ray reveals increased diffuse lung markings bilaterally. Urine culture positive for Chrissy. Blood culture pending. White count 9.7. Hemoglobin 8.8. Platelets 427. Sodium 140. Potassium 3.6. Bicarb 19. BUN 18. Creatinine 1.14. Glucose 189. Procalcitonin 21.6. She remains on DuoNeb inhalations, antibiotics in the form of Zosyn and Levaquin. Initiated on Diflucan. Heparin for DVT prophylaxis. Progress note dated August 06, 2024. The patient is seen today in room 372. She is currently resting in bed. She is awake and alert. No acute distress. The patient continues on 2 L nasal O2. She is getting saline at 75 cc an hour. She is hemodynamically stable. No new labs today other than a glucose of 201. Urine was positive for Chrissy. No new x-ray to report. The patient continues on fluconazole, Levaquin, and Zosyn. Progress note dated August 07, 2024. 63-year-old female who was transferred to the intensive care unit, at about 11 PM last night. She came in because of supraventricular tachycardia. She was moved over by my nurse practitioner. She is seen today in room 261. She is on 3 L nasal O2. She is getting saline at 75 cc an hour, and amiodarone 0.5 mg/min. She came into the intensive care unit, at 11 PM. She has been on BiPAP, at 14/6, 40%, for 6 hours. Current labs include a white count of 12.4, hemoglobin 9, hematocrit 27.9, platelet count 331,000. Sodium 134, potassium 3.7, chloride 102, CO2 23, anion gap 9, BUN 12, creatinine 0.63. Glucose 297. Calcium 7. Magnesium 1.3. Albumin 2.2. Urine culture was positive for Chrissy albicans. Chest x-ray shows an improved right lower lobe infiltrate, and possible mild fluid overload. Progress note dated August 08, 2024. 63-year-old female seen today in room 261. She is currently on 3 L of oxygen. She is getting saline at 75 cc an hour. Yesterday she was on IV amiodarone. Now she is on p.o. amiodarone. Clinically, she is doing well. Her major complaint is pain. She is also having some issues with insomnia. Anyway, I mention to her that she should talk to her hospital doctor about those 2 issues. Current labs include a white count of 10.0, hemoglobin 8.5, hematocrit 26.5, platelet count of 2 94,000. Sodium 135, potassium 3.9, chlorides 103, CO2 27, BUN 11, creatinine 0.71. Glucose is 150. Calcium is 7. Albumin is 2.1. Chest x-ray shows cardiomegaly, with pulmonary venous congestion. Progress note dated August 09, 2024. 63-year-old female seen today in room 353. She was in the intensive care unit yesterday. Is resting comfortably in bed. She is on saline at 75 cc an hour, and receiving nasal cannula, 3 L. No acute distress. She is awake and alert. White count 10.9, hemoglobin 8.9, hematocrit 27.6, platelet count is normal. Sodium 136, potassium 4.3, chlorides 105, CO2 26, BUN 10, and creatinine 0.58. Calcium is 7.4. Microbiology is currently negative. No chest x-ray today. Progress note dated August 10, 2024. 63-year-old female seen today in room 353. The patient is currently getting saline at 20 cc an hour. He is getting nasal oxygen, 3 L, O2 saturation 98%. She is in no acute distress. She is resting comfortably in bed. Her procalcitonin level was 21.6. White count 8.1, hemoglobin 8.6, hematocrit 27.1, platelet count 330,000. Sodium 137, potassium 3.8, chlorides 105, CO2 28, BUN 11, creatinine 0.65. Glucose is 102. Calcium is 7.6. On 08/11/2024, the patient is being seen for a follow-up. The patient is currently on 2 L of oxygen by nasal cannula. She is diuresing well and the patient remains in negative fluid balance. Over the past 48 hours, the patient had 2.4 L negative fluid balance and another 2 L negative fluid balance and she reports improvement lower extremity edema. Her echocardiogram shows an ejection fraction of 35% with questionable vegetation involving the aortic valve. Nevertheless, the patient's blood cultures been negative. IV fluids are currently at KVO. Ragland catheter is in place. Cardiac rhythm is sinus. The patient does have some increased abdominal tympany and distention. Nevertheless, she reports flatus and bowel movement activity. Chest x-ray shows improvement in CHF with mild residual pulm vessel congestion. Small left-sided pleural effusion is still present. The patient also had an abdominal x-ray and there is gas/distended stomach and colon but overall picture is nonobstructive. Possibility of underlying ileus cannot be completely ruled out. The white cell count is at 8 with a hemoglobin 8.6 and a platelet count of 330. Electrolytes are normal, BUN is 11 with a creatinine of 0.6. On 08/12/2024, the patient is being seen for a follow-up. On today's evaluation, the patient is in, comfortable and she is on 2 L of oxygen by nasal cannula. She is feeling well. She has systolic heart failure with an ejection fraction of 35% in addition to coronary artery disease, hypertension hyperlipidemia diabetes mellitus and peripheral vascular disease. She remains on IV Lasix. Fluid balance is -5 L over the past 24 hours and the repeat chest x-ray from yesterday showed improvement in the volume status and the patient had residual bilateral pleural effusion and atelectatic changes of mild pulm vascular congestion. Abdominal x-ray was consistent with possible ileus. Abdomen is less tympanic on today's evaluation and seems to be less distended. She has no other new complaints. No new labs are available from today. Ragland catheter is in place and the patient remains on IV Lasix and Aldactone. She is on Lantus insulin 11 units daily. She is on Levaquin. Rest of medications are essentially unchanged On 08/13/2024, I am seeing the patient for a follow-up. The patient is feeling better. She seems to be less short of breath. Oxygenation is stable and the patient is currently on 2 L of oxygen by nasal cannula with a pulse ox ranging between 94 to 97%. The patient is being diuresed with IV Lasix and the patient is negative fluid balance of 4.7 L over the past 24 hours. She remains on Lasix 20 mg IV push every 12 hours. She remains on DuoNeb treatments around -the-clock. She is on empiric antibiotic coverage with IV Levaquin. She is also on Aldactone. Rest of medications remain unchanged. No new labs are available from today. A repeat chest x-ray was done on 08/13/2024 and there is improved aeration bilaterally and there is some residual pulm vascular congestion and small left-sided pleural effusion still present. Overall x-ray findings have improved considerably. On 08/14/2024, the patient is being seen for a follow-up. The patient is doing well. The patient is diuresing adequately and the patient has been negative fluid balance of 3.5 L over the past 24 hours. Noted the patient remains on IV Lasix and the patient has produced excellent amount of urine output and she remains on a negative fluid balance. She remains on Lasix 20 mg IV every 12 hours. Rest of the medications are essentially unchanged. The patient remains on Aldactone 12.5 mg p.o. daily. She remains on Levaquin and this has been switched to 750 mg p.o. on a daily basis. Afebrile. Remains on DuoNeb updrafts. Blood work from today shows a sodium level of 133 with a potassium level of 4, BUN 16 with a creatinine of 0.8. The patient is currently on 3 S liters by nasal cannula with a pulse ox of 97%. She reports improvement in her breathing and the patient seems to be less short of breath. She has generalized weakness and fatigue. Abdomen is less distended. On 08/15/2024, the patient is being seen for a follow-up. The patient is stable from the pulmonary standpoint. She remains on 2 L of oxygen by nasal cannula with pulse ox of 98%. Nevertheless, overnight, the patient developed some increased abdominal distention. NG tube was inserted for gastric decompression and immediately 300 cc of gastric output was obtained. X-ray of the abdomen showed significant gastric distention of the stomach with intraluminal content. There is also gaseous distention of the bowel in the right side of the abdomen. Based on that, the patient was given an NG tube. Surgical consultation was also obtained and the patient will be given bowel rest, in addition to NG tube decompression. Lactulose was also added. Reglan was added. Otherwise, the patient is doing well. She is hemodynamically stable. Fluid balance is -3.7 L over the past 24 hours. Repeat chest x-ray shows small residual left-sided pleural effusion. The diuretics will be discontinued today. She continues to be on Levaquin. Zosyn was also added by infectious disease. The white cell count is at 12.2 with a hemoglobin 8.9 and a platelet count of 326. Electrolytes are all normal. Sodium level is at 133, bicarb is at 33, BUN 16 with a creatinine of 0.7. On 08/16/2024, the patient is being seen for a follow-up. On today's evaluation, the patient remains NPO. NG tube is in place. Abdomen is less distended. No significant respiratory difficulties for now. The patient remains on oxygen and the patient is currently on 2 L of O2 nasal cannula with a pulse ox of 96%. The white seconds at 15.7 with a hemoglobin 8.5 and a platelet count of 326. BUN is 19 with a creatinine of 0.8. Sodium levels at 137. Repeat abdominal x-ray was done this morning and the patient continues to have nonspecific bowel gas pattern without evidence of any acute process. General surgery is on the case. The patient remains NPO. In terms of antibiotic coverage, the patient is on Zosyn and the patient remains on Diflucan. Rest of the medications are essentially unchanged. Continues to produce adequate amount of urine output. Fluid balance is -3.7 L over the past 24 hours. The patient is currently off Lasix. The patient was also seen by general surgery. Output from the NG tube h as been elevated and the patient has small amount of flatus and some loose liquidy stools. It was decided to keep the NG tube in place for another 24 hours. Objective - Vital Signs Vital signs: Vital Signs Temp 98 F 08/16/24 03:05 Pulse 79 08/16/24 07:34 Resp 16 08/16/24 07:34 BP 79/46 08/16/24 07:34 Pulse Ox 95 08/16/24 07:34 FiO2 40 08/07/24 08:11 Intake & Output 08/15/24 08/16/24 08/16/24 18:59 06:59 18:59 Intake Total 120 20 10 Output Total 2580 650 Balance -2460 -630 10 Weight 67.5 kg 66.6 kg Intake: IV 20 20 10 Invasive Line 6 20 20 10 Tube Feeding 100 Output: Gastric Drainage 580 Urine 2000 650 Other: Voiding Method Indwelling Catheter Indwelling Catheter Indwelling Catheter # Bowel Movements 0 - Exam No acute distress, oriented 3. Patient continues on 2 L nasal cannula. The prakash pappas has an NG tube in place. Resting comfortably in bed. No significant respiratory distress. HEENT examination is grossly unremarkable. Mucous membranes are moist. No oral lesions. Neck supple. Full range of motion. No adenopathy thyromegaly or neck vein distention. Cardiovascular examination reveals regular rhythm rate. S1-S2 normal. No S3 or S4. No discernible murmur noted. Lungs reveal clear breath sounds. Breath sounds are equal bilaterally. No adventitious lung sounds including wheezes rhonchi or crackles. Abdomen soft bowel sounds are heard. No masses or tenderness. The abdomen is distended and the patient is tympanic to percussion. Bowel sounds are hypoactive. No direct tenderness. No rebound tenderness. No guarding. Extremities are intact. No cyanosis clubbing or edema. Toe amputations noted. Skin is without rash or lesion. Neurologic examination is brief but nonfocal. - Labs CBC & Chem 7: 08/16/24 06:16 08/16/24 06:16 Labs: Abnormal Lab Results - Last 24 Hours (Table) 08/15/24 08/15/24 08/15/24 Range/Units 11:43 16:20 20:18 WBC (4.50-10.00) 10*3/uL RBC (4.10-5.20) 10*6/uL Hgb (12.0-15.0) g/dL Hct (37.2-46.3) % MCH (27.0-32.0) pg MCHC (32.0-37.0) g/dL Immature Gran # (0.00-0.04) 10*3/uL Neutrophils # (1.80-7.70) 10*3/uL BUN (7-17) mg/dL Glucose (74-99) mg/dL POC Glucose (mg/dL) 209 H 170 H 186 H (70-110) mg/dL Calcium (8.4-10.2) mg/dL 08/16/24 08/16/24 08/16/24 Range/Units 06:09 06:16 06:16 WBC 15.73 H (4.50-10.00) 10*3/uL RBC 3.17 L (4.10-5.20) 10*6/uL Hgb 8.5 L (12.0-15.0) g/dL Hct 27.7 L (37.2-46.3) % MCH 26.8 L (27.0-32.0) pg MCHC 30.7 L (32.0-37.0) g/dL Immature Gran # 0.07 H (0.00-0.04) 10*3/uL Neutrophils # 13.72 H (1.80-7.70) 10*3/uL BUN 19 H (7-17) mg/dL Glucose 149 H (74-99) mg/dL POC Glucose (mg/dL) 158 H (70-110) mg/dL Calcium 8.2 L (8.4-10.2) mg/dL Assessment and Plan Plan: Acute hypoxemic respiratory failure, essentially secondary to CHF and volume overload. The patient is negative fluid balance and the follow-up chest x-ray continues to show improvement in volume status and there is some residual CHF with mild pulm vascular congestion and small left-sided pleural effusion still present on today's chest x-ray. Clinically the patient is gradually improving and the patient is currently on 2 L of oxygen by nasal cannula. Systolic heart failure, chronic, Echocardiogram was noted and the patient has an ejection fraction of 35% with questionable vegetation involving the aortic valve. No significant valve heart disease and the patient has segmental wall motion abnormality involving the inferior, anterolateral and anterior lateral hypokinesis. Ileus, gastric distention post NG tube insertion for gastric decompression the patient is currently NPO. Clinically improved and the patient's abdomen seems to be less distended. General surgery is on the case Hypotension, recovered and the patient is currently normotensive. Acute febrile illness, recovered and the patient is currently afebrile Acute leukocytosis, improved Urinary retention, has a Ragland catheter in place with adequate urine output Acute kidney injury, improved Coronary artery disease with previous PCI. The patient had elevated troponins rule out non-ST elevation [place]. History of hypertension. History of hyperlipidemia. Diabetes mellitus type 2, uncontrolled. History of peripheral vascular disease. History of left foot transmetatarsal amputation. History of right 4th and 5th toe amputation on the right. History of nondisplaced oblique fracture of the left greater trochanter. Currently undergoing tobacco dependence. Plan: Clinically stable and the patient remains on 2 L of oxygen by nasal cannula Lasix has been discontinued Continue broad-spectrum antibiotic coverage with IV Zosyn and Levaquin Rest of the oral medications can be continued Continue Aldactone 12.5 mg p.o. daily Continue rest of the oral medication this includes: Toprol-XL 12.5 mg p.o. daily Imdur 50 mg p.o. daily Farxiga 10 mg p.o. daily Amiodarone 200 mg p.o. daily continue bronchodilators With DuoNeb Continue Plavix Continue high-dose statins General Surgical consultation has been obtained, and a repeat x-ray of the abdomen was done and the patient has nonspecific bowel gas pattern. Patient was given lactulose Repeat abdominal films in a.m. Will continue to follow and make further recommendations based on the progress. Will keep the NG tube in place for another 24 hours.
[2024-08-16 16:26] LABS: Glucose,Whole Blood 220 mg/dL (70-110)
[2024-08-16 20:14] LABS: Glucose,Whole Blood 126 mg/dL (70-110)
[2024-08-16] MEDS: HYDROmorphone 0.5 MG/0.5 ML SYRINGE IVP PRN (20:38)
--- NOTE | 2024-08-17 00:01 | P.PN ---
Subjective Date of the visit for this note is 08/11/2024 63-year-old female with a past medical history significant for diabetes mellitus reflux hypertension hyperlipidemia [place] CVA TIA previous patient noted to have history of recurrent UTI recently discharged from this hospital after receiving treatment for UTI cystitis has been brought back to the hospital concerning for generalized weakness along with mental status changes and low oxygen patient did have a low-grade fever chest x-ray with multifocal airspace opacity probably this consultation. 08/08/2024 --Patient is seen and evaluated in ICU; the patient continues to be afebrile, the patient is on 3 L nasal cannula oxygen and breathing comfortably, the Pt denies having any chest pain or worsening cough, the patient denies having any abdominal pain no vomiting or any diarrhea has been complaining about her pain medication being inadequate. Blood work reveals WBC of 10, hemoglobin of 8.5 and platelet count of 294, sodium 135, potassium 3.9, BUN/creatinine of 11/0.71 -- urine for Legionella antigen negative blood cultures so far negative sputum not collected - chest x-ray cardiomegaly pulm vascular congestion bilateral effusion progressive in nature 08/09/2024 Patient is seen and evaluated in the intensive care unit yesterday. Is resting comfortably in bed. Currently saturating at 98% on nasal cannula, 3 L. No acute distress. She is awake and alert. Blood work reveals white count 10.9, hemoglobin 8.9, hematocrit 27.6, platelet count is normal. Sodium 136, potassium 4.3, chlorides 105, CO2 26, BUN 10, and creatinine 0.58. Calcium is 7.4. Microbiology is currently negative. No chest x-ray today. Patient has been transferred out of ICU; cardiology recommending to decrease amiodarone to 200 mg daily; patient remains on Lipitor, Plavix and cilostazol; fenofibrate was discontinued; cardiology recommending Farxiga 10 mg daily and Aldactone 12.5 mg 08/10/2024 Patient is seen and evaluated and discussed with nursing staff; received IM Zyprexa for agitation and anxiety last; patient is sleepy but arousable - Vital signs reviewed afebrile patient is currently on 3 L goal oxygen admission breathing comfortably Patient white count is 8.08, creatinine 0.65 blood culture negative patient presented to the hospital with sepsis in this patient who did have a fever tachycardia elevated white count meeting criteria for SIRS/sepsis with evidence of diffuse multifocal airspace opacities will need to cover for the resistant gram-negative with the likely pathogen as the patient was recently discharged from this facility and exposed to antibiotics blood culture remains to be negative sputum has already been collected, urine for Legionella antigen negative keep bilateral heel area of the pressure to prevent any worsening of the bilateral heel pressure ulcer -patient did have resolution of the fever and white count down normalized on Zosyn will consider short course of oral antibiotic on discharge 08/11 Patient still remains mildly tachypneic but her breathing is improving slowly and gradually. Chest x-ray showing improving consolidation and improving fluid overload. Patient remains on IV Lasix with negative fluid balance Her abdomen is mildly distended, she says she has 1 bowel movement which is loose. Abdominal x-ray showing ileus. I talked to the patient about placement and she agreed to talk to the social media specialist for possible rehab placement upon discharge whenever ready In the meantime she remains on IV Zosyn and Levaquin. Also she is on IV Lasix 20 mg twice daily. Continued with Aldactone. 08/12 Patient lying in bed with no distress No significant dyspnea at rest, she is on 2 L oxygen She still have evidence of fluid overload she is still kept on IV Lasix 20 mg twice daily. She has almost several liters of urine output over the last 24 hours. Possible discharge in 24 to 48 hours if keeps improving 08/13 Patient is improving significantly and his breathing is improved She is kept on IV Lasix and she was making 2 to 3 L of urine output this morning, because of the benefits and significant lower in her fluid overload we will going to keep her for another 24 hours with IV Lasix No labs today, rechecking labs in the morning If she keeps improving no other new complaint may be considered for discharge 08/14 Patient still has bilateral leg swelling She is making good amount of urine output about 1 to 2 L every shift She does not want to go to rehab although she is severely weak she is adamant to go home with home care after several times we discussed with her. She has Ragland catheter in place However in the afternoon patient started develop more abdominal distention, abdominal x-ray requested as patient vomited once showing significant gaseous distention of the stomach, NG tube recommended which is ordered, Make the patient n.p.o., surgery team also consulted Discussed with the staff of day and retail shift supervisor. Continue close monitoring 08/15 Patient developed abdominal distention and vomiting and abdominal x-ray showing distended gas filled stomach and ileus NG tube was placed which helped for decompression surgical consult was obtained who recommended Reglan and lactulose which were added Also patient continued on IV Lasix and diuresing and continued on IV antibiotics with Zosyn WBC 12.2, hemoglobin 8.9 Blood pressure is soft low side up with systolic 80s to 90s Patient remains sleepy in bed still with bilateral leg edema Ragland catheter in place, NG tube in place Patient eventually does not want to go to subacute rehab with risk-benefit explained to her 08/16 Patient NG tube was removed today, abdomen less tender and distended, She still has bilateral leg swelling but they are improving Blood pressure on the soft side therefore we will switch morphine to IV Dilaudid Also Levaquin was discontinued, currently patient kept on Zosyn Objective - Vital Signs Vital signs: Vital Signs Temp 98.2 F 08/16/24 23:33 Pulse 80 08/16/24 23:33 Resp 18 08/16/24 23:33 BP 92/50 08/16/24 23:33 Pulse Ox 94 L 08/16/24 23:33 FiO2 40 08/07/24 08:11 Intake & Output 08/16/24 08/16/24 08/17/24 06:59 18:59 06:59 Intake Total 20 950 10 Output Total 650 Balance -630 950 10 Weight 66.6 kg Intake: IV 20 10 10 Invasive Line 6 20 10 10 Intake, IV Titration 940 Amount Piperacillin-Tazobactam 3 200 .375 gm In Sodium Chloride 0.9% 100 ml @ 25 mls/hr IVPB Q8HR [facility] Rx# :[id number] Sodium Chloride 0.9% 1, 240 000 ml @ 20 mls/hr IV . Q24H [facility] Rx#:[id number] Sodium Chloride 0.9% 500 500 ml 500 ml @ 999 mls/hr IV .Q31M [facility] Rx#:[id number] Output: Urine 650 Other: Voiding Method Indwelling Catheter Indwelling Catheter Indwelling Catheter # Bowel Movements 0 1 - Exam GENERAL: The patient is alert and oriented x3, not in any acute distress. Well developed, well nourished. HEENT: Pupils are round and equally reacting to light. EOMI. No scleral icterus. No conjunctival pallor. Normocephalic, atraumatic. No pharyngeal erythema. No t hyromegaly. CARDIOVASCULAR: S1 and S2 present. No murmurs, rubs, or gallops. -PULMONARY: Chest is clear to auscultation, no wheezing , mild bilateral base crackles. -ABDOMEN: Soft, nontender, mildly distended, normoactive bowel sounds. No palpable organomegaly. NG tube in place MUSCULOSKELETAL: No joint swelling or deformity. EXTREMITIES: No cyanosis, clubbing, or pedal edema. NEUROLOGICAL: Gross neurological examination did not reveal any focal deficits. SKIN: No rashes. no petechiae. - Labs CBC & Chem 7: 08/16/24 06:16 08/16/24 06:16 Labs: Abnormal Lab Results - Last 24 Hours (Table) 08/16/24 08/16/24 08/16/24 Range/Units 06:09 06:16 06:16 WBC 15.73 H (4.50-10.00) 10*3/uL RBC 3.17 L (4.10-5.20) 10*6/uL Hgb 8.5 L (12.0-15.0) g/dL Hct 27.7 L (37.2-46.3) % MCH 26.8 L (27.0-32.0) pg MCHC 30.7 L (32.0-37.0) g/dL Immature Gran # 0.07 H (0.00-0.04) 10*3/uL Neutrophils # 13.72 H (1.80-7.70) 10*3/uL BUN 19 H (7-17) mg/dL Glucose 149 H (74-99) mg/dL POC Glucose (mg/dL) 158 H (70-110) mg/dL Calcium 8.2 L (8.4-10.2) mg/dL 08/16/24 08/16/24 08/16/24 Range/Units 11:30 16:23 20:12 WBC (4.50-10.00) 10*3/uL RBC (4.10-5.20) 10*6/uL Hgb (12.0-15.0) g/dL Hct (37.2-46.3) % MCH (27.0-32.0) pg MCHC (32.0-37.0) g/dL Immature Gran # (0.00-0.04) 10*3/uL Neutrophils # (1.80-7.70) 10*3/uL BUN (7-17) mg/dL Glucose (74-99) mg/dL POC Glucose (mg/dL) 142 H 220 H 126 H (70-110) mg/dL Calcium (8.4-10.2) mg/dL Microbiology - Last 24 Hours (Table) 08/15/24 15:47 Blood Culture - Preliminary Blood Assessment and Plan Assessment: 1. Acute hypoxemic respiratory failure, secondary to pneumonia -- Patient is currently on O2 per nasal cannula after initially being on BiPAP; we will continue to titrate or wean FiO2 keeping O2 saturation above 92% -- 2. Acute abdominal/intestinal ileus with possible gastroparesis: Placed NG tube under low pressure suction, surgical team consult, lactulose and Reglan 3. Hypotension, consider sepsis/septic shock/pneumonia -- Patient remains on IV antibiotics in the form of Levaquin and Zosyn - ID on board 3. Acute kidney injury; resolved. 4. Elevated troponins rule out non-ST elevation [place]; cardiology has continued home cardiac medications; Imdur is added; recommending ischemia workup once patient has recovered from acute illness. 5. History of hypertension; currently being treated for hypotension related to septic shock. 6. History of hyperlipidemia; Lipitor 80 mg daily. 7. Diabetes mellitus type 2, uncontrolled; monitor Accu-Cheks before every meal and at bedtime with insulin sliding scale. 8. History of coronary artery disease with previous PCI/stents. 9. History of peripheral vascular disease; patient remains on Lipitor and Plavix. -- History of left foot transmetatarsal amputation. 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 10. Ileus with abdominal x-ray showing distended stomach. NG tube ordered, general surgeon consulted, continue monitoring with bowel rest 11. Acute on chronic CHF, systolic with ejection fraction 35%, improving with IV Lasix 12. Acute supraventricular tachycardia; patient initially treated with IV amiodarone; has been transition to oral amiodarone at this point; cardiology on board. DVT prophylaxis; SCDs/subcu heparin CODE STATUS; full code
[2024-08-17 06:09] LABS: Glucose,Whole Blood 160 mg/dL (70-110)
--- NOTE | 2024-08-17 08:16 | XR ---
EXAMINATION TYPE: XR abdomen 2V DATE OF EXAM: 08/17/2024 7:50 AM COMPARISON: Prior imaging CLINICAL INDICATION: Female, 63 years old with history of Follow-up ileus; [facility] TECHNIQUE: Two views of the abdomen were obtained. FINDINGS: Moderate amount stool throughout the colon. The bowel gas pattern is nonspecific without d ilated loops of small or large bowel. . Fecal material and gas are demonstrated throughout the colon and rectum. There is no evidence for organomegaly or pneumoperitoneum. No acute osseous process. No abnormal calcifications are present. Fixation hardware over the lumbar spine appears intact. There are stimulator leads over the spine are present. Right upper quadrant cholecystectomy clips. Small b ilateral pleural effusions. IMPRESSION: 1. Gaseous dilation of bowel correlate for ileus. 2. Small bilateral pleural effusions suggested. [facility], , 08/17/2024 8:13 AM
[2024-08-17 11:21] LABS: Glucose,Whole Blood 135 mg/dL (70-110)
[2024-08-17] MEDS: LACTATED RINGERS 1,000 ML IV SCH (11:58)
--- NOTE | 2024-08-17 12:32 | P.PN ---
Subjective Progress Note Date: 08/17/24 Principal diagnosis: Ileus/gastroparesis Patient denies nausea. Feels a little bloated. Repeat x-rays today show persistent air-filled gastric dilation. No vomiting. No abdominal pain. Objective - Vital Signs Vital signs: Vital Signs Temp 97.8 F 08/17/24 11:03 Pulse 73 08/17/24 11:03 Resp 16 08/17/24 11:03 BP 114/57 08/17/24 11:57 Pulse Ox 94 L 08/17/24 11:03 FiO2 40 08/07/24 08:11 Intake & Output 08/16/24 08/17/24 08/17/24 18:59 06:59 18:59 Intake Total 950 20 Output Total 1500 500 Balance 950 -1480 -500 Weight 69 kg Intake: IV 10 20 Invasive Line 6 10 20 Intake, IV Titration 940 Amount Piperacillin-Tazobactam 3 200 .375 gm In Sodium Chloride 0.9% 100 ml @ 25 mls/hr IVPB Q8HR [facility] Rx# :[id number] Sodium Chloride 0.9% 1, 240 000 ml @ 20 mls/hr IV . Q24H [facility] Rx#:[id number] Sodium Chloride 0.9% 500 500 ml 500 ml @ 999 mls/hr IV .Q31M [facility] Rx#:[id number] Output: Urine 1500 500 Other: Voiding Method Indwelling Catheter Indwelling Catheter Indwelling Catheter # Bowel Movements 1 - Exam Abdomen: Soft, mild distention, nontender - Labs CBC & Chem 7: 08/16/24 06:16 08/16/24 06:16 Labs: Abnormal Lab Results - Last 24 Hours (Table) 08/16/24 08/16/24 08/17/24 Range/Units 16:23 20:12 06:06 POC Glucose (mg/dL) 220 H 126 H 160 H (70-110) mg/dL 08/17/24 Range/Units 11:20 POC Glucose (mg/dL) 135 H (70-110) mg/dL Microbiology - Last 24 Hours (Table) 08/15/24 15:47 Blood Culture - Preliminary Blood Assessment and Plan (1) Ileus Narrative/Plan: Patient's x-rays show persistent gastric dilation. As expected patient refusing nasogastric tube replacement. Last CAT scan on 07/28. This showed a generalized ileus pattern. Given the patient's persistent strict distention will order repeat CAT scan to evaluate for proximal small bowel obstruction. Discussed with medical service that TPN is likely required at this point. Meanwhile patient will consider gastric tube replacement. Current Visit: Yes Status: Acute Code(s): K56.7 - ILEUS, UNSPECIFIED SNOMED Code(s): 536320270
[2024-08-17] MEDS: IOPAMIDOL CONTRAST (ORAL USE) VIAL PO PRN (13:20)
--- NOTE | 2024-08-17 15:17 | P.PN ---
Subjective Progress Note Date: 08/17/24 Principal diagnosis: Reason for follow-up is fever/pneumonia Patient is a 63-year-old female with a past medical history significant for diabetes mellitus reflux hypertension hyperlipidemia [place] CVA TIA previous patient noted to have history of recurrent UTI recently discharged from this hospital after receiving treatment for UTI cystitis has been brought back to the hospital concerning for generalized weakness along with mental status changes and low oxygen patient did have a low-grade fever chest x-ray with multifocal airspace opacity probably this consultation. On today's evaluation that is 08/17/2024, Patient is afebrile patient is currently on 1 L nasal oxygen and denies having any shortness of breath, the patient denies any chest pain or cough, the patient has been having some nausea but no further vomiting no diarrhea. No new lab has been obtained today blood cultures with currently pending abdominal x-ray gaseous distention of the bowels correlate for ileus Objective - Vital Signs Vital signs: Vital Signs Temp 97.8 F 08/17/24 11:03 Pulse 73 08/17/24 13:37 Resp 16 08/17/24 11:03 BP 108/56 08/17/24 14:50 Pulse Ox 94 L 08/17/24 11:03 FiO2 40 08/07/24 08:11 Intake & Output 08/16/24 08/17/24 08/17/24 18:59 06:59 18:59 Intake Total 950 20 Output Total 1500 500 Balance 950 -1480 -500 Weight 69 kg Intake: IV 10 20 Invasive Line 6 10 20 Intake, IV Titration 940 Amount Piperacillin-Tazobactam 3 200 .375 gm In Sodium Chloride 0.9% 100 ml @ 25 mls/hr IVPB Q8HR [facility] Rx# :[id number] Sodium Chloride 0.9% 1, 240 000 ml @ 20 mls/hr IV . Q24H [facility] Rx#:[id number] Sodium Chloride 0.9% 500 500 ml 500 ml @ 999 mls/hr IV .Q31M [facility] Rx#:[id number] Output: Urine 1500 500 Other: Voiding Method Indwelling Catheter Indwelling Catheter Indwelling Catheter # Bowel Movements 1 - Exam GENERAL DESCRIPTION: Middle-age female lying in bed in no distress RESPIRATORY SYSTEM: Unlabored breathing , decreased breath sounds at bases HEART: S1 S2 regular rate and rhythm , ABDOMEN: Soft , no tenderness EXTREMITIES: Bilateral heel wounds are currently dressed - Labs CBC & Chem 7: 08/16/24 06:16 08/16/24 06:16 Labs: Abnormal Lab Results - Last 24 Hours (Table) 08/16/24 08/16/24 08/17/24 Range/Units 16:23 20:12 06:06 POC Glucose (mg/dL) 220 H 126 H 160 H (70-110) mg/dL 08/17/24 Range/Units 11:20 POC Glucose (mg/dL) 135 H (70-110) mg/dL Microbiology - Last 24 Hours (Table) 08/15/24 15:47 Blood Culture - Preliminary Blood Assessment and Plan (1) Pneumonia Current Visit: Yes Status: Acute Code(s): J18.9 - PNEUMONIA, UNSPECIFIED ORG ANISM SNOMED Code(s): 867119325 (2) Sepsis Current Visit: Yes Status: Acute Code(s): A41.9 - SEPSIS, UNSPECIFIED ORGANISM SNOMED Code(s): 51848147 (3) Pressure ulcer, heel, right, unstageable Current Visit: No Status: Acute Code(s): L89.610 - PRESSURE ULCER OF RIGHT HEEL, UNSTAGEABLE SNOMED Code(s): 09403564923455969 Plan: 1patient presented to the hospital with sepsis in this patient who did have a fever tachycardia elevated white count meeting criteria for SIRS/sepsis with evidence of diffuse multifocal airspace opacities will need to cover for the resistant gram-negative with the likely pathogen as the patient was recently discharged from this facility and exposed to antibiotics 2blood culture remains to be negative sputum has already been collected, urine for Legionella antigen negative 3keep bilateral heel area of the pressure to prevent any worsening of the bilateral heel pressure ulcer 4-patient did have persistent features of ileus on the abdominal x-ray CT has been ordered results will be followed continue with the Zosyn Dictation was produced using [employer] dictation software. please excuse any grammatical, word or spelling errors. Time with Patient: Less than 30
--- NOTE | 2024-08-17 15:36 | CT ---
EXAMINATION TYPE: CT abdomen pelvis wo con CT DLP: 640.4 mGycm, Automated exposure control for dose reduction was used. DATE OF EXAM: 08/17/2024 2:46 PM COMPARISON: Abdominal radiograph 08/17/2024, 08/16/2024, CT abdomen and pelvis 08/07/2024, CT angiogram 6 x 25 CLINICAL INDICATION:Female, 63 years old with history of Ileus, gastric distention; Ileus, gastric di stention TECHNIQUE: Standard CT of the abdomen and pelvis following the administration of oral contrast. Cor onal and sagittal reformats were performed. Limited examination due to lack of intravenous contrast. FINDINGS: LOWER CHEST: Punctate right middle lobe catheter granuloma. Small bilateral pleural effusions with co mpressive atelectasis of both lower lobes. Moderate to severe coronary arterial calcifications and/or stents. No pericardial effusion. ABDOMEN LIVER: Unremarkable noncontrast appearance. GALLBLADDER AND BILE DUCTS: The gallbladder is surgically absent. No biliary duct dilatation. PANCREAS: Unremarkable noncontrast appearance. SPLEEN: Enlarged measuring 16.4 cm in CC dimension. ADRENAL GLANDS: Unremarkable noncontrast appearance. KIDNEYS AND URETERS: Resolution of previously demonstrated left hydronephrosis. No left renal calculi . Decreased mild right hydroureteronephrosis without obstructing calculus. Nonobstructing right renal 3 mm calculus. No definitive ureteral calculi identified. PELVIS BLADDER: Nondistended with Ragland catheter in place. Nondependent gas likely from catheter placement. REPRODUCTIVE: Unremarkable noncontrast appearance. ABDOMEN & PELVIS STOMACH AND BOWEL: Normal caliber appearance to the esophagus with some hyperdense enteric contrast i dentified. Gastric distention identified. No significant wall thickening or inflammatory changes at t he gastric antrum. Normal caliber of the small bowel.Oral contrast reaches the rectum. No focal bowel wall thickening or surrounding inflammatory changes. The appendix is not definitively visualized. No pneumatosis. PERITONEUM: No evidence of pneumoperitoneum. Trace ascites throughout the abdomen and pelvis. VASCULATURE: Mild to moderate atherosclerotic calcifications are present throughout the abdominal aor ta and its branches. No evidence of aortic aneurysm. MUSCULOSKELETAL: No acute osseous abnormalities. Postsurgical changes with bilateral pedicular screws and rods and laminectomy changes involving L4-S1. Moderate multilevel degenerative disc disease. Str aightening of the thoracolumbar spine. Mild bilateral hip osteoarthritic change. LYMPH NODES: No gross evidence for lymphadenopathy. SOFT TISSUE/ABDOMINAL WALL: Few foci of gas within the anterior mid abdominal wall subcutaneous tissu es with some stranding. Likely related to medication injection. Pelvic anasarca. Couple of left glute al subcutaneous tissues calcific granulomas. Left upper abdominal posterior lateral flank subcutaneou s tissue stimulator device power pack with 2 leads entering the spinal canal at the T12-L1 and L1-L2 interspinous spaces and coursing superiorly into the thoracic spinal canal and terminating at the T7- T8 level. IMPRESSION: 1. Development of gastric distention with resolution of previously demonstrated dilated small and la rge bowel from prior exam. Enteric contrast reaches the rectum. Correlate for resolving ileus and/or gastroparesis. 2. Decompression of the urinary bladder with Ragland catheter in place. There is improvement of previou sly demonstrated bilateral hydronephrosis with residual mild right hydroureteronephrosis. No obstruct ing calculus identified. 3. Trace ascites. 4. Mild splenomegaly. 5. Similar small bilateral pleural effusions with associated bilateral lower lobe compressive atelect asis. [facility], , 08/17/2024 3:34 PM
[2024-08-17 16:39] LABS: Glucose,Whole Blood 123 mg/dL (70-110)
--- NOTE | 2024-08-17 18:38 | P.PN ---
Subjective Progress Note Date: 08/17/24 Patient is a 63 female with past medical history significant for hypertension, hyperlipidemia, diabetes mellitus type 2, coronary disease with previous PCI/stents, peripheral vascular disease, left foot metatarsal amputation as well as right fourth-fifth toe amputation. Of note, patient recently hospitalized May, with left hip fracture. CT of the left hip showing a nondisplaced oblique fracture through the superior corner of the left greater trochanter. Did return to the hospital 07/22/2024 with abdominal pain. Thought to possible have a urinary tract infection. Abdominal/pelvis CT remarkable for bilateral hydronephrosis, right greater than left, bladder wall thickening, and small bowel ileus. Incidental findings of bilateral pleural effusions and compressive atelectasis. Patient was discharged on 08/01/2024. Patient returns to the emergency department 2 days later complaining of increased weakness, fevers, and shortness of breath. She was placed on BiPAP initially in the ED. She was also noted to be hypotensive and has been fluid resuscitated with a total of 3 L of crystalloid fluid so far. Febrile with a temperature of 100.3 F. Workup including a chest x-ray showing multifocal airspace opacities concerning for pneumonia. Denies any coughing, sputum production, hemoptysis, chest pain. Denies any history of heart failure. Denies any lower extremity edema. Denies any she denies any dysuria, frequency, hematuria, suprapubic pain or flank pain. She is retaining urine and a bedside bladder scan showed 850 cc of urine in the bladder. Labs including a CBC with a WBC count of 19.4, hemoglobin 13, platelets 681. CMP: Sodium 131, potassium 4.3, chloride 100, serum bicarb 18, BUN 22, creatinine 1.36, glucose 389. Lactic was 2.7 is down to 2.5. LFTs not elevated. Troponin was 0.376. NT proBNP significantly elevated at 12,900. Patient currently being evaluated in the emergency department. She is on BiPAP with settings 14/6 and FiO2 40%. SpO2 reading 100% on bedside monitor. She does not appear to be any respiratory distress. Talking complete sentences. No accessory muscle use. She was easily transitioned to nasal cannula. Blood pressure currently 100/66 mmHg. She was empirically placed on a combination of Levaquin and Zosyn in the ED. Currently afebrile. The patient is seen today August 05, 2024 in follow-up on the selective care unit. She is currently resting in bed. Awake and alert in no acute distress. Maintaining O2 saturations in the 90s on 3 L/min per nasal cannula. She is afebrile. Hemodynamically stable. Chest x-ray reveals increased diffuse lung markings bilaterally. Urine culture positive for Chrissy. Blood culture pending. White count 9.7. Hemoglobin 8.8. Platelets 427. Sodium 140. Potassium 3.6. Bicarb 19. BUN 18. Creatinine 1.14. Glucose 189. Procalcitonin 21.6. She remains on DuoNeb inhalations, antibiotics in the form of Zosyn and Levaquin. Initiated on Diflucan. Heparin for DVT prophylaxis. Progress note dated August 06, 2024. The patient is seen today in room 372. She is currently resting in bed. She is awake and alert. No acute distress. The patient continues on 2 L nasal O2. She is getting saline at 75 cc an hour. She is hemodynamically stable. No new labs today other than a glucose of 201. Urine was positive for Chrissy. No new x-ray to report. The patient continues on fluconazole, Levaquin, and Zosyn. Progress note dated August 07, 2024. 63-year-old female who was transferred to the intensive care unit, at about 11 PM last night. She came in because of supraventricular tachycardia. She was moved over by my nurse practitioner. She is seen today in room 261. She is on 3 L nasal O2. She is getting saline at 75 cc an hour, and amiodarone 0.5 mg/min. She came into the intensive care unit, at 11 PM. She has been on BiPAP, at 14/6, 40%, for 6 hours. Current labs include a white count of 12.4, hemoglobin 9, hematocrit 27.9, platelet count 331,000. Sodium 134, potassium 3.7, chloride 102, CO2 23, anion gap 9, BUN 12, creatinine 0.63. Glucose 297. Calcium 7. Magnesium 1.3. Albumin 2.2. Urine culture was positive for Chrissy albicans. Chest x-ray shows an improved right lower lobe infiltrate, and possible mild fluid overload. Progress note dated August 08, 2024. 63-year-old female seen today in room 261. She is currently on 3 L of oxygen. She is getting saline at 75 cc an hour. Yesterday she was on IV amiodarone. Now she is on p.o. amiodarone. Clinically, she is doing well. Her major complaint is pain. She is also having some issues with insomnia. Anyway, I mention to her that she should talk to her hospital doctor about those 2 issues. Current labs include a white count of 10.0, hemoglobin 8.5, hematocrit 26.5, platelet count of 2 94,000. Sodium 135, potassium 3.9, chlorides 103, CO2 27, BUN 11, creatinine 0.71. Glucose is 150. Calcium is 7. Albumin is 2.1. Chest x-ray shows cardiomegaly, with pulmonary venous congestion. Progress note dated August 09, 2024. 63-year-old female seen today in room 353. She was in the intensive care unit yesterday. Is resting comfortably in bed. She is on saline at 75 cc an hour, and receiving nasal cannula, 3 L. No acute distress. She is awake and alert. White count 10.9, hemoglobin 8.9, hematocrit 27.6, platelet count is normal. Sodium 136, potassium 4.3, chlorides 105, CO2 26, BUN 10, and creatinine 0.58. Calcium is 7.4. Microbiology is currently negative. No chest x-ray today. Progress note dated August 10, 2024. 63-year-old female seen today in room 353. The patient is currently getting saline at 20 cc an hour. He is getting nasal oxygen, 3 L, O2 saturation 98%. She is in no acute distress. She is resting comfortably in bed. Her procalcitonin level was 21.6. White count 8.1, hemoglobin 8.6, hematocrit 27.1, platelet count 330,000. Sodium 137, potassium 3.8, chlorides 105, CO2 28, BUN 11, creatinine 0.65. Glucose is 102. Calcium is 7.6. On 08/11/2024, the patient is being seen for a follow-up. The patient is currently on 2 L of oxygen by nasal cannula. She is diuresing well and the patient remains in negative fluid balance. Over the past 48 hours, the patient had 2.4 L negative fluid balance and another 2 L negative fluid balance and she reports improvement lower extremity edema. Her echocardiogram shows an ejection fraction of 35% with questionable vegetation involving the aortic valve. Nevertheless, the patient's blood cultures been negative. IV fluids are currently at KVO. Ragland catheter is in place. Cardiac rhythm is sinus. The patient does have some increased abdominal tympany and distention. Nevertheless, she reports flatus and bowel movement activity. Chest x-ray shows improvement in CHF with mild residual pulm vessel congestion. Small left-sided pleural effusion is still present. The patient also had an abdominal x-ray and there is gas/distended stomach and colon but overall picture is nonobstructive. Possibility of underlying ileus cannot be completely ruled out. The white cell count is at 8 with a hemoglobin 8.6 and a platelet count of 330. Electrolytes are normal, BUN is 11 with a creatinine of 0.6. On 08/12/2024, the patient is being seen for a follow-up. On today's evaluation, the patient is in, comfortable and she is on 2 L of oxygen by nasal cannula. She is feeling well. She has systolic heart failure with an ejection fraction of 35% in addition to coronary artery disease, hypertension hyperlipidemia diabetes mellitus and peripheral vascular disease. She remains on IV Lasix. Fluid balance is -5 L over the past 24 hours and the repeat chest x-ray from yesterday showed improvement in the volume status and the patient had residual bilateral pleural effusion and atelectatic changes of mild pulm vascular congestion. Abdominal x-ray was consistent with possible ileus. Abdomen is less tympanic on today's evaluation and seems to be less distended. She has no other new complaints. No new labs are available from today. Ragland catheter is in place and the patient remains on IV Lasix and Aldactone. She is on Lantus insulin 11 units daily. She is on Levaquin. Rest of medications are essentially unchanged On 08/13/2024, I am seeing the patient for a follow-up. The patient is feeling better. She seems to be less short of breath. Oxygenation is stable and the patient is currently on 2 L of oxygen by nasal cannula with a pulse ox ranging between 94 to 97%. The patient is being diuresed with IV Lasix and the patient is negative fluid balance of 4.7 L over the past 24 hours. She remains on Lasix 20 mg IV push every 12 hours. She remains on DuoNeb treatments around -the-clock. She is on empiric antibiotic coverage with IV Levaquin. She is also on Aldactone. Rest of medications remain unchanged. No new labs are available from today. A repeat chest x-ray was done on 08/13/2024 and there is improved aeration bilaterally and there is some residual pulm vascular congestion and small left-sided pleural effusion still present. Overall x-ray findings have improved considerably. On 08/14/2024, the patient is being seen for a follow-up. The patient is doing well. The patient is diuresing adequately and the patient has been negative fluid balance of 3.5 L over the past 24 hours. Noted the patient remains on IV Lasix and the patient has produced excellent amount of urine output and she remains on a negative fluid balance. She remains on Lasix 20 mg IV every 12 hours. Rest of the medications are essentially unchanged. The patient remains on Aldactone 12.5 mg p.o. daily. She remains on Levaquin and this has been switched to 750 mg p.o. on a daily basis. Afebrile. Remains on DuoNeb updrafts. Blood work from today shows a sodium level of 133 with a potassium level of 4, BUN 16 with a creatinine of 0.8. The patient is currently on 3 S liters by nasal cannula with a pulse ox of 97%. She reports improvement in her breathing and the patient seems to be less short of breath. She has generalized weakness and fatigue. Abdomen is less distended. On 08/15/2024, the patient is being seen for a follow-up. The patient is stable from the pulmonary standpoint. She remains on 2 L of oxygen by nasal cannula with pulse ox of 98%. Nevertheless, overnight, the patient developed some increased abdominal distention. NG tube was inserted for gastric decompression and immediately 300 cc of gastric output was obtained. X-ray of the abdomen showed significant gastric distention of the stomach with intraluminal content. There is also gaseous distention of the bowel in the right side of the abdomen. Based on that, the patient was given an NG tube. Surgical consultation was also obtained and the patient will be given bowel rest, in addition to NG tube decompression. Lactulose was also added. Reglan was added. Otherwise, the patient is doing well. She is hemodynamically stable. Fluid balance is -3.7 L over the past 24 hours. Repeat chest x-ray shows small residual left-sided pleural effusion. The diuretics will be discontinued today. She continues to be on Levaquin. Zosyn was also added by infectious disease. The white cell count is at 12.2 with a hemoglobin 8.9 and a platelet count of 326. Electrolytes are all normal. Sodium level is at 133, bicarb is at 33, BUN 16 with a creatinine of 0.7. On 08/16/2024, the patient is being seen for a follow-up. On today's evaluation, the patient remains NPO. NG tube is in place. Abdomen is less distended. No significant respiratory difficulties for now. The patient remains on oxygen and the patient is currently on 2 L of O2 nasal cannula with a pulse ox of 96%. The white seconds at 15.7 with a hemoglobin 8.5 and a platelet count of 326. BUN is 19 with a creatinine of 0.8. Sodium levels at 137. Repeat abdominal x-ray was done this morning and the patient continues to have nonspecific bowel gas pattern without evidence of any acute process. General surgery is on the case. The patient remains NPO. In terms of antibiotic coverage, the patient is on Zosyn and the patient remains on Diflucan. Rest of the medications are essentially unchanged. Continues to produce adequate amount of urine output. Fluid balance is -3.7 L over the past 24 hours. The patient is currently off Lasix. The patient was also seen by general surgery. Output from the NG tube h as been elevated and the patient has small amount of flatus and some loose liquidy stools. It was decided to keep the NG tube in place for another 24 hours. On 08/17/2024, the patient is being seen for a follow-up. The patient opted to remove her NG. However, on today's evaluation, the abdomen is slightly distended. A flat film of the abdomen was done and the patient was found to have significant gastric distention and large bowel distention with moderate amount of stool throughout the colon. The bowel gas pattern was nonspecific and fecal material was demonstrated in the colon and the rectum. No evidence of any pneumoperitoneum. Based on that, the patient was seen again by general surgery. CAT scan of the abdomen and pelvis was done and the patient was found to have gastric distention and resolution of previously demonstrated dilated small and large bowels. There was contrast reaching the rectum. This may be consistent with resolving ileus/gastroparesis. Trace ascites, mild splenomegaly, small bilateral pleural effusion and compressive atelectasis in the lung bases bilate rally. Otherwise, the patient is doing well. She is on 1 L of oxygen by nasal cannula. Denies having any significant respiratory distress. Remains on bronchodilators. She is currently off diuretics. IV fluids with lactated Ringer at rate of 75 cc an hour as the patient was kept NPO. The patient was covered with antibiotics per ID and the patient is currently on Zosyn and Diflucan. Denies having any other complaints otherwise for now. She is feeling slightly bloated. However, no nausea. No emesis. No abdominal pain. Objective - Vital Signs Vital signs: Vital Signs Temp 97.9 F 08/17/24 08:06 Pulse 72 08/17/24 08:18 Resp 16 08/17/24 08:06 BP 102/52 08/17/24 10:23 Pulse Ox 97 08/17/24 08:06 FiO2 40 08/07/24 08:11 Intake & Output 08/16/24 08/17/24 08/17/24 18:59 06:59 18:59 Intake Total 950 20 Output Total 1500 500 Balance 950 -1480 -500 Weight 69 kg Intake: IV 10 20 Invasive Line 6 10 20 Intake, IV Titration 940 Amount Piperacillin-Tazobactam 3 200 .375 gm In Sodium Chloride 0.9% 100 ml @ 25 mls/hr IVPB Q8HR [facility] Rx# :[id number] Sodium Chloride 0.9% 1, 240 000 ml @ 20 mls/hr IV . Q24H [facility] Rx#:[id number] Sodium Chloride 0.9% 500 500 ml 500 ml @ 999 mls/hr IV .Q31M [facility] Rx#:[id number] Output: Urine 1500 500 Other: Voiding Method Indwelling Catheter Indwelling Catheter Indwelling Catheter # Bowel Movements 1 - Exam No acute distress, oriented 3. Patient continues on 1 L nasal cannula. The patient has an NG tube has been removed. Resting comfortably in bed. No significant respiratory distress. HEENT examination is grossly unremarkable. Mucous membranes are moist. No oral lesions. Neck supple. Full range of motion. No adenopathy thyromegaly or neck vein distention. Cardiovascular examination reveals regular rhythm rate. S1-S2 normal. No S3 or S4. No discernible murmur noted. Lungs reveal clear breath sounds. Breath sounds are equal bilaterally. No adventitious lung sounds including wheezes rhonchi or crackles. Abdomen soft bowel sounds are heard. No masses or tenderness. The abdomen is distended and the patient is tympanic to percussion. Bowel sounds are hypoactive. No direct tenderness. No rebound tenderness. No guarding. Extremities are intact. No cyanosis clubbing or edema. Toe amputations noted. Skin is without rash or lesion. Neurologic examination is brief but nonfocal. - Labs CBC & Chem 7: 08/16/24 06:16 08/16/24 06:16 Labs: Abnormal Lab Results - Last 24 Hours (Table) 08/16/24 08/16/24 08/17/24 Range/Units 16:23 20:12 06:06 POC Glucose (mg/dL) 220 H 126 H 160 H (70-110) mg/dL 08/17/24 Range/Units 11:20 POC Glucose (mg/dL) 135 H (70-110) mg/dL Microbiology - Last 24 Hours (Table) 08/15/24 15:47 Blood Culture - Preliminary Blood Assessment and Plan Plan: Acute hypoxemic respiratory failure, essentially secondary to CHF and volume overload. The patient is negative fluid balance and the follow-up chest x-ray continues to show improvement in volume status and there is some residual CHF with mild pulm vascular congestion and small left-sided pleural effusion still present on today's chest x-ray. Clinically the patient is gradually improving and the patient is currently on 1 L of oxygen by nasal cannula. Systolic heart failure, chronic, Echocardiogram was noted and the patient has an ejection fraction of 35% with questionable vegetation involving the aortic valve. No significant valve heart disease and the patient has segmental wall motion abnormality involving the inferior, anterolateral and anterior lateral hypokinesis. Resolving ileus, gastric distention post NG tube insertion for gastric decompression and the tube was removed and a CAT scan of the abdomen was noted. General surgery is on the case and the patient is currently on IV Zosyn. Hypotension, recovered and the patient is currently normotensive. Acute febrile illness, recovered and the patient is currently afebrile Acute leukocytosis, improved Urinary retention, has a Ragland catheter in place with adequate urine output Acute kidney injury, improved Coronary artery disease with previous PCI. The patient had elevated troponins rule out non-ST elevation [place]. History of hypertension. History of hyperlipidemia. Diabetes mellitus type 2, uncontrolled. History of peripheral vascular disease. History of left foot transmetatarsal amputation. History of right 4th and 5th toe amputation on the right. History of nondisplaced oblique fracture of the left greater trochanter. Currently undergoing tobacco dependence. Plan: Clinically stable and the patient remains on 1 L of oxygen by nasal cannula Lasix has been discontinued Continue broad-spectrum antibiotic coverage with IV Zosyn and and Diflucan Rest of the oral medications can be continued Continue Aldactone 12.5 mg p.o. daily Toprol-XL 12.5 mg p.o. daily Imdur 50 mg p.o. daily Farxiga 10 mg p.o. daily Amiodarone 200 mg p.o. daily continue bronchodilators With DuoNeb Continue Plavix Continue high-dose statins General Surgical consultation is appreciated Patient was given lactulose Repeat abdominal films in a.m. Gradually advance diet as tolerated
[2024-08-17 19:51] LABS: Glucose,Whole Blood 108 mg/dL (70-110)
[2024-08-18 05:42] LABS: Glucose,Whole Blood 123 mg/dL (70-110)
--- NOTE | 2024-08-18 06:58 | P.PN ---
Subjective Date of the visit for this note is 08/11/2024 63-year-old female with a past medical history significant for diabetes mellitus reflux hypertension hyperlipidemia ME CVA TIA previous patient noted to have history of recurrent UTI recently discharged from this hospital after receiving treatment for UTI cystitis has been brought back to the hospital concerning for generalized weakness along with mental status changes and low oxygen patient did have a low-grade fever chest x-ray with multifocal airspace opacity probably this consultation. 08/08/2024 --Patient is seen and evaluated in ICU; the patient continues to be afebrile, the patient is on 3 L nasal cannula oxygen and breathing comfortably, the Pt denies having any chest pain or worsening cough, the patient denies having any abdominal pain no vomiting or any diarrhea has been complaining about her pain medication being inadequate. Blood work reveals WBC of 10, hemoglobin of 8.5 and platelet count of 294, sodium 135, potassium 3.9, BUN/creatinine of 11/0.71 -- urine for Legionella antigen negative blood cultures so far negative sputum not collected - chest x-ray cardiomegaly pulm vascular congestion bilateral effusion progressive in nature 08/09/2024 Patient is seen and evaluated in the intensive care unit yesterday. Is resting comfortably in bed. Currently saturating at 98% on nasal cannula, 3 L. No acute distress. She is awake and alert. Blood work reveals white count 10.9, hemoglobin 8.9, hematocrit 27.6, platelet count is normal. Sodium 136, potassium 4.3, chlorides 105, CO2 26, BUN 10, and creatinine 0.58. Calcium is 7.4. Microbiology is currently negative. No chest x-ray today. Patient has been transferred out of ICU; cardiology recommending to decrease amiodarone to 200 mg daily; patient remains on Lipitor, Plavix and cilostazol; fenofibrate was discontinued; cardiology recommending Farxiga 10 mg daily and Aldactone 12.5 mg 08/10/2024 Patient is seen and evaluated and discussed with nursing staff; received IM Zyprexa for agitation and anxiety last; patient is sleepy but arousable - Vital signs reviewed afebrile patient is currently on 3 L goal oxygen admission breathing comfortably Patient white count is 8.08, creatinine 0.65 blood culture negative patient presented to the hospital with sepsis in this patient who did have a fever tachycardia elevated white count meeting criteria for SIRS/sepsis with evidence of diffuse multifocal airspace opacities will need to cover for the resistant gram-negative with the likely pathogen as the patient was recently discharged from this facility and exposed to antibiotics blood culture remains to be negative sputum has already been collected, urine for Legionella antigen negative keep bilateral heel area of the pressure to prevent any worsening of the bilateral heel pressure ulcer -patient did have resolution of the fever and white count down normalized on Zosyn will consider short course of oral antibiotic on discharge 08/11 Patient still remains mildly tachypneic but her breathing is improving slowly and gradually. Chest x-ray showing improving consolidation and improving fluid overload. Patient remains on IV Lasix with negative fluid balance Her abdomen is mildly distended, she says she has 1 bowel movement which is loose. Abdominal x-ray showing ileus. I talked to the patient about placement and she agreed to talk to the clinical social work therapist for possible rehab placement upon discharge whenever ready In the meantime she remains on IV Zosyn and Levaquin. Also she is on IV Lasix 20 mg twice daily. Continued with Aldactone. 08/12 Patient lying in bed with no distress No significant dyspnea at rest, she is on 2 L oxygen She still have evidence of fluid overload she is still kept on IV Lasix 20 mg twice daily. She has almost several liters of urine output over the last 24 hours. Possible discharge in 24 to 48 hours if keeps improving 08/13 Patient is improving significantly and his breathing is improved She is kept on IV Lasix and she was making 2 to 3 L of urine output this morning, because of the benefits and significant lower in her fluid overload we will going to keep her for another 24 hours with IV Lasix No labs today, rechecking labs in the morning If she keeps improving no other new complaint may be considered for discharge 08/14 Patient still has bilateral leg swelling She is making good amount of urine output about 1 to 2 L every shift She does not want to go to rehab although she is severely weak she is adamant to go home with home care after several times we discussed with her. She has Ragland catheter in place However in the afternoon patient started develop more abdominal distention, abdominal x-ray requested as patient vomited once showing significant gaseous distention of the stomach, NG tube recommended which is ordered, Make the patient n.p.o., surgery team also consulted Discussed with the staff of day and night clerk. Continue close monitoring 08/15 Patient developed abdominal distention and vomiting and abdominal x-ray showing distended gas filled stomach and ileus NG tube was placed which helped for decompression surgical consult was obtained who recommended Reglan and lactulose which were added Also patient continued on IV Lasix and diuresing and continued on IV antibiotics with Zosyn WBC 12.2, hemoglobin 8.9 Blood pressure is soft low side up with systolic 80s to 90s Patient remains sleepy in bed still with bilateral leg edema Ragland catheter in place, NG tube in place Patient eventually does not want to go to subacute rehab with risk-benefit explained to her 08/16 Patient NG tube was removed today, abdomen less tender and distended, She still has bilateral leg swelling but they are improving Blood pressure on the soft side therefore we will switch morphine to IV Dilaudid Also Levaquin was discontinued, currently patient kept on Zosyn 08/17 Patient awake alert Leg edema significantly improved Patient still have persistent dilatation of the stomach, patient refused NG tube for decompression after risk-benefit explained Keep the patient n.p.o. Gastric dilatation seen with the KUB and the CT of the abdomen pelvis from today Discussed the case with surgery team Patient blood pressure on the low side received small bolus of IV fluid Recommend to order PICC line and nutrition consult for TPN tomorrow Objective - Vital Signs Vital signs: Vital Signs Temp 97.9 F 08/17/24 08:06 Pulse 72 08/17/24 08:18 Resp 16 08/17/24 08:06 BP 94/54 08/17/24 08:06 Pulse Ox 97 08/17/24 08:06 FiO2 40 08/07/24 08:11 Intake & Output 08/16/24 08/17/24 08/17/24 18:59 06:59 18:59 Intake Total 950 20 Output Total 1500 500 Balance 950 -1480 -500 Weight 69 kg Intake: IV 10 20 Invasive Line 6 10 20 Intake, IV Titration 940 Amount Piperacillin-Tazobactam 3 200 .375 gm In Sodium Chloride 0.9% 100 ml @ 25 mls/hr IVPB Q8HR [facility] Rx# :[id number] Sodium Chloride 0.9% 1, 240 000 ml @ 20 mls/hr IV . Q24H [facility] Rx#:[id number] Sodium Chloride 0.9% 500 500 ml 500 ml @ 999 mls/hr IV .Q31M ONE Rx#:[id number] Output: Urine 1500 500 Other: Voiding Method Indwelling Catheter Indwelling Catheter # Bowel Movements 1 - Exam GENERAL: The patient is alert and oriented x3, not in any acute distress. Well developed, well nourished. HEENT: Pupils are round and equally reacting to light. EOMI. No scleral icterus. No conjunctival pallor. Normocephalic, atraumatic. No pharyngeal erythema. No thyromegaly. CARDIOVASCULAR: S1 and S2 present. No murmurs, rubs, or gallops. -PULMONARY: Chest is clear to auscultation, no wheezing , mild bilateral base crackles. -ABDOMEN: Soft, nontender, mildly distended, normoactive bowel sounds. No palpable organomegaly. NG tube in place MUSCULOSKELETAL: No joint swelling or deformity. EXTREMITIES: No cyanosis, clubbing, or pedal edema. NEUROLOGICAL: Gross neurological examination did not reveal any focal deficits. SKIN: No rashes. no petechiae. - Labs CBC & Chem 7: 08/16/24 06:16 08/16/24 06:16 Labs: Abnormal Lab Results - Last 24 Hours (Table) 08/16/24 08/16/24 08/16/24 Range/Units 11:30 16:23 20:12 POC Glucose (mg/dL) 142 H 220 H 126 H (70-110) mg/dL 08/17/24 Range/Units 06:06 POC Glucose (mg/dL) 160 H (70-110) mg/dL Microbiology - Last 24 Hours (Table) 08/15/24 15:47 Blood Culture - Preliminary Blood Assessment and Plan Assessment: 1. Acute hypoxemic respiratory failure, secondary to pneumonia -- Patient is currently on O2 per nasal cannula after initially being on BiPAP; we will continue to titrate or wean FiO2 keeping O2 saturation above 92% -- 2. Acute abdominal/intestinal ileus with possible gastroparesis: Placed NG tube under low pressure suction, this was pulled out and patient refused replacement surgical team consult, on Reglan --Patient remains n.p.o., we will order PICC line for TPN tomorrow for her malnutrition 3. Hypotension, consider sepsis/septic shock/pneumonia -- Patient remains on IV antibiotics in the form of Levaquin and Zosyn - ID on board 3. Acute kidney injury; resolved. 4. Elevated troponins rule out non-ST elevation ME; cardiology has continued home cardiac medications; Imdur is added; recommending ischemia workup once patient has recovered from acute illness. 5. History of hypertension; currently being treated for hypotension related to septic shock. 6. History of hyperlipidemia; Lipitor 80 mg daily. 7. Diabetes mellitus type 2, uncontrolled; monitor Accu-Cheks before every meal and at bedtime with insulin sliding scale. 8. History of coronary artery disease with previous PCI/stents. 9. History of peripheral vascular disease; patient remains on Lipitor and Plavix. -- History of left foot transmetatarsal amputation. 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 10. Ileus with abdominal x-ray showing distended stomach. NG tube ordered, general surgeon consulted, continue monitoring with bowel rest 11. Acute on chronic CHF, systolic with ejection fraction 35%, improving with IV Lasix 12. Acute supraventricular tachycardia; patient initially treated with IV amiodarone; has been transition to oral amiodarone at this point; cardiology on board. DVT prophylaxis; SCDs/subcu heparin CODE STATUS; full code
[2024-08-18 11:20] LABS: Glucose,Whole Blood 147 mg/dL (70-110)
--- NOTE | 2024-08-18 13:41 | XR ---
EXAMINATION TYPE: XR chest 1V portable DATE OF EXAM: 08/18/2024 12:59 PM COMPARISON: Chest radiographs from 08/15/2024. CLINICAL INDICATION: Female, 63 years old with history of chf; [facility] TECHNIQUE: XR chest 1V portable Frontal view of the chest. FINDINGS: Lungs/Pleura: There is no evidence of pleural effusion, focal consolidation, or pneumothorax. Pulmonary vascularity: Unremarkable. Heart/mediastinum: Cardiomediastinal silhouette is unremarkable. Musculoskeletal: No acute osseous pathology. Stimulator leads project over the spine. Other findings: None Lines/Tubes: Right-sided PICC line with distal tip at the cavoatrial junction. IMPRESSION: 1. Right lower lobe airspace opacities correlate for developing pneumonia. 2. Mild pulmonary edema. 3. Right PICC in appropriate position. [facility], , 08/18/2024 1:38 PM
[2024-08-18 16:44] LABS: Glucose,Whole Blood 117 mg/dL (70-110)
--- NOTE | 2024-08-18 17:46 | P.PN ---
Subjective Progress Note Date: 08/18/24 Principal diagnosis: Acute hypoxic respiratory failure secondary to congestive heart failure/systolic in nature with ejection fraction of 35% Patient is a 63 female with past medical history significant for hypertension, hyperlipidemia, diabetes mellitus type 2, coronary disease with previous PCI/stents, peripheral vascular disease, left foot metatarsal amputation as well as right fourth-fifth toe amputation. Of note, patient recently hospitalized May, with left hip fracture. CT of the left hip showing a nondisplaced oblique fracture through the superior corner of the left greater trochanter. Did return to the hospital 07/22/2024 with abdominal pain. Thought to possible have a urinary tract infection. Abdominal/pelvis CT remarkable for bilateral hydronephrosis, right greater than left, bladder wall thickening, and small bowel ileus. Incidental findings of bilateral pleural effusions and compressive atelectasis. Patient was discharged on 08/01/2024. Patient returns to the emergency department 2 days later complaining of increased weakness, fevers, and shortness of breath. She was placed on BiPAP initially in the ED. She was also noted to be hypotensive and has been fluid resuscitated with a total of 3 L of crystalloid fluid so far. Febrile with a temperature of 100.3 F. Workup including a chest x-ray showing multifocal airspace opacities concerning for pneumonia. Denies any coughing, sputum production, hemoptysis, chest pain. Denies any history of heart failure. Denies any lower extremity edema. Denies any she denies any dysuria, frequency, hematuria, suprapubic pain or flank pain. She is retaining urine and a bedside bladder scan showed 850 cc of urine in the bladder. Labs including a CBC with a WBC count of 19.4, hemoglobin 13, platelets 681. CMP: Sodium 131, potassium 4.3, chloride 100, serum bicarb 18, BUN 22, creatinine 1.36, glucose 389. Lactic was 2.7 is down to 2.5. LFTs not elevated. Troponin was 0.376. NT proBNP significantly elevated at 12,900. Patient currently being evaluated in the emergency department. She is on BiPAP with settings 14/6 and FiO2 40%. SpO2 reading 100% on bedside monitor. She does not appear to be any respiratory distress. Talking complete sentences. No accessory muscle use. She was easily transitioned to nasal cannula. Blood pressure currently 100/66 mmHg. She was empirically placed on a combination of Levaquin and Zosyn in the ED. Currently afebrile. The patient is seen today August 05, 2024 in follow-up on the selective care unit. She is currently resting in bed. Awake and alert in no acute distress. Maintaining O2 saturations in the 90s on 3 L/min per nasal cannula. She is afebrile. Hemodynamically stable. Chest x-ray reveals increased diffuse lung markings bilaterally. Urine culture positive for Chrissy. Blood culture pending. White count 9.7. Hemoglobin 8.8. Platelets 427. Sodium 140. Potassium 3.6. Bicarb 19. BUN 18. Creatinine 1.14. Glucose 189. Procalcitonin 21.6. She remains on DuoNeb inhalations, antibiotics in the form of Zosyn and Levaquin. Initiated on Diflucan. Heparin for DVT prophylaxis. Progress note dated August 06, 2024. The patient is seen today in room 372. She is currently resting in bed. She is awake and alert. No acute distress. The patient continues on 2 L nasal O2. She is getting saline at 75 cc an hour. She is hemodynamically stable. No new labs today other than a glucose of 201. Urine was positive for Chrissy. No new x-ray to report. The patient continues on fluconazole, Levaquin, and Zosyn. Progress note dated August 07, 2024. 63-year-old female who was transferred to the intensive care unit, at about 11 PM last night. She came in because of supraventricular tachycardia. She was moved over by my nurse practitioner. She is seen today in room 261. She is on 3 L nasal O2. She is getting saline at 75 cc an hour, and amiodarone 0.5 mg/min. She came into the intensive care unit, at 11 PM. She has been on BiPAP, at 14/6, 40%, for 6 hours. Current labs include a white count of 12.4, hemoglobin 9, hematocrit 27.9, platelet count 331,000. Sodium 134, potassium 3.7, chloride 102, CO2 23, anion gap 9, BUN 12, creatinine 0.63. Glucose 297. Calcium 7. Magnesium 1.3. Albumin 2.2. Urine culture was positive for Chrissy albicans. Chest x-ray shows an improved right lower lobe infiltrate, and possible mild fluid overload. Progress note dated August 08, 2024. 63-year-old female seen today in room 261. She is currently on 3 L of oxygen. She is getting saline at 75 cc an hour. Yesterday she was on IV amiodarone. Now she is on p.o. amiodarone. Clinically, she is doing well. Her major complaint is pain. She is also having some issues with insomnia. Anyway, I mention to her that she should talk to her hospital doctor about those 2 issues. Current labs include a white count of 10.0, hemoglobin 8.5, hematocrit 26.5, platelet count of 2 94,000. Sodium 135, potassium 3.9, chlorides 103, CO2 27, BUN 11, creatinine 0.71. Glucose is 150. Calcium is 7. Albumin is 2.1. Chest x-ray shows cardiomegaly, with pulmonary venous congestion. Progress note dated August 09, 2024. 63-year-old female seen today in room 353. She was in the intensive care unit yesterday. Is resting comfortably in bed. She is on saline at 75 cc an hour, and receiving nasal cannula, 3 L. No acute distress. She is awake and alert. White count 10.9, hemoglobin 8.9, hematocrit 27.6, platelet count is normal. Sodium 136, potassium 4.3, chlorides 105, CO2 26, BUN 10, and creatinine 0.58. Calcium is 7.4. Microbiology is currently negative. No chest x-ray today. Progress note dated August 10, 2024. 63-year-old female seen today in room 353. The patient is currently getting saline at 20 cc an hour. He is getting nasal oxygen, 3 L, O2 saturation 98%. She is in no acute distress. She is resting comfortably in bed. Her procalcitonin level was 21.6. White count 8.1, hemoglobin 8.6, hematocrit 27.1, platelet count 330,000. Sodium 137, potassium 3.8, chlorides 105, CO2 28, BUN 11, creatinine 0.65. Glucose is 102. Calcium is 7.6. On 08/11/2024, the patient is being seen for a follow-up. The patient is currently on 2 L of oxygen by nasal cannula. She is diuresing well and the patient remains in negative fluid balance. Over the past 48 hours, the patient had 2.4 L negative fluid balance and another 2 L negative fluid balance and she reports improvement lower extremity edema. Her echocardiogram shows an ejection fraction of 35% with questionable vegetation involving the aortic valve. Nevertheless, the patient's blood cultures been negative. IV fluids are cu rrently at KVO. Ragland catheter is in place. Cardiac rhythm is sinus. The patient does have some increased abdominal tympany and distention. Nevertheless, she reports flatus and bowel movement activity. Chest x-ray shows improvement in CHF with mild residual pulm vessel congestion. Small left-sided pleural effusion is still present. The patient also had an abdominal x-ray and there is gas/distended stomach and colon but overall picture is nonobstructive. Possibility of underlying ileus cannot be completely ruled out. The white cell count is at 8 with a hemoglobin 8.6 and a platelet count of 330. Electrolytes are normal, BUN is 11 with a creatinine of 0.6. On 08/12/2024, the patient is being seen for a follow-up. On today's evaluation, the patient is in, comfortable and she is on 2 L of oxygen by nasal cannula. She is feeling well. She has systolic heart failure with an ejection fraction of 35% in addition to coronary artery disease, hypertension hyperlipidemia diabetes mellitus and peripheral vascular disease. She remains on IV Lasix. Fluid balance is -5 L over the past 24 hours and the repeat chest x-ray from yesterday showed improvement in the volume status and the patient had residual bilateral pleural effusion and atelectatic changes of mild pulm vascular conges tion. Abdominal x-ray was consistent with possible ileus. Abdomen is less tympanic on today's evaluation and seems to be less distended. She has no other new complaints. No new labs are available from today. Ragland catheter is in place and the patient remains on IV Lasix and Aldactone. She is on Lantus insulin 11 units daily. She is on Levaquin. Rest of medications are essentially unchanged On 08/13/2024, I am seeing the patient for a follow-up. The patient is feeling better. She seems to be less short of breath. Oxygenation is stable and the patient is currently on 2 L of oxygen by nasal cannula with a pulse ox ranging between 94 to 97%. The patient is being diuresed with IV Lasix and the patient is negative fluid balance of 4.7 L over the past 24 hours. She remains on Lasix 20 mg IV push every 12 hours. She remains on DuoNeb treatments [id number]. She is on empiric antibiotic coverage with IV Levaquin. She is also on Aldactone. Rest of medications remain unchanged. No new labs are available from today. A repeat chest x-ray was done on 08/13/2024 and there is improved aeration bilaterally and there is some residual pulm vascular congestion and small left-sided pleural effusion still present. Overall x-ray findings have improved considerably. On 08/14/2024, the patient is being seen for a follow-up. The patient is doing well. The patient is diuresing adequately and the patient has been negative fluid balance of 3.5 L over the past 24 hours. Noted the patient remains on IV Lasix and the patient has produced excellent amount of urine output and she remains on a negative fluid balance. She remains on Lasix 20 mg IV every 12 hours. Rest of the medications are essentially unchanged. The patient remains on Aldactone 12.5 mg p.o. daily. She remains on Levaquin and this has been switched to 750 mg p.o. on a daily basis. Afebrile. Remains on DuoNeb updrafts. Blood work from today shows a sodium level of 133 with a potassium level of 4, BUN 16 with a creatinine of 0.8. The patient is currently on 3 S liters by nasal cannula with a pulse ox of 97%. She reports improvement in her breathing and the patient seems to be less short of breath. She has generalized weakness and fatigue. Abdomen is less distended. On 08/15/2024, the patient is being seen for a follow-up. The patient is stable from the pulmonary standpoint. She remains on 2 L of oxygen by nasal cannula with pulse ox of 98%. Nevertheless, overnight, the patient developed some increased abdominal distention. NG tube was inserted for gastric decompression and immediately 300 cc of gastric output was obtained. X-ray of the abdomen showed significant gastric distention of the stomach with intraluminal content. There is also gaseous distention of the bowel in the right side of the abdomen. Based on that, the patient was given an NG tube. Surgical consultation was also obtained and the patient will be given bowel rest, in addition to NG tube decompression. Lactulose was also added. Reglan was added. Otherwise, the patient is doing well. She is hemodynamically stable. Fluid balance is -3.7 L over the past 24 hours. Repeat chest x-ray shows small residual left-sided pleural effusion. The diuretics will be discontinued today. She continues to be on Levaquin. Zosyn was also added by infectious disease. The white cell count is at 12.2 with a hemoglobin 8.9 and a platelet count of 326. Electrolytes are all normal. Sodium level is at 133, bicarb is at 33, BUN 16 with a creatinine of 0.7. On 08/16/2024, the patient is being seen for a follow-up. On today's evaluation, the patient remains NPO. NG tube is in place. Abdomen is less distended. No significant respiratory difficulties for now. The patient remains on oxygen and the patient is currently on 2 L of O2 nasal cannula with a pulse ox of 96%. The white seconds at 15.7 with a hemoglobin 8.5 and a platelet count of 326. BUN is 19 with a creatinine of 0.8. Sodium levels at 137. Repeat abdominal x-ray was done this morning and the patient continues to have nonspecific bowel gas pattern without evidence of any acute process. General surgery is on the case. The patient remains NPO. In terms of antibiotic coverage, the patient is on Zosyn and the patient remains on Diflucan. Rest of the medications are essentially unchanged. Continues to produce adequate amount of urine output. Fluid balance is -3.7 L over the past 24 hours. The patient is currently off Lasix. The patient was also seen by general surgery. Output from the NG tube has been elevated and the patient has small amount of flatus and some loose liquidy stools. It was decided to keep the NG tube in place for another 24 hours. On 08/17/2024, the patient is being seen for a follow-up. The patient opted to remove her NG. However, on today's evaluation, the abdomen is slightly distended. A flat film of the abdomen was done and the patient was found to have significant gastric distention and large bowel distention with moderate amount of stool throughout the colon. The bowel gas pattern was nonspecific and fecal material was demonstrated in the colon and the rectum. No evidence of any pneumoperitoneum. Based on that, the patient was seen again by general surgery. CAT scan of the abdomen and pelvis was done and the patient was found to have gastric distention and resolution of previously demonstrated dilated small and large bowels. There was contrast reaching the rectum. This may be consistent with resolving ileus/gastroparesis. Trace ascites, mild splenomegaly, small bilateral pleural effusion and compressive atelectasis in the lung bases bilaterally. Otherwise, the patient is doing well. She is on 1 L of oxygen by nasal cannula. Denies having any significant respiratory distress. Remains on bronchodilators. She is currently off diuretics. IV fluids with lactated Ri nger at rate of 75 cc an hour as the patient was kept NPO. The patient was covered with antibiotics per ID and the patient is currently on Zosyn and Diflucan. Denies having any other complaints otherwise for now. She is feeling slightly bloated. However, no nausea. No emesis. No abdominal pain. Seen today on 08/18/2024, patient is doing better, breathing easier on 1 L nasal cannula her load overload and congestive heart failure seems to be improving. Patient looks frail and chronically ill she is generally weak. No labs were done on this patient today. Objective - Vital Signs Vital signs: Vital Signs Temp 98.2 F 08/18/24 15:03 Pulse 70 08/18/24 15:03 Resp 20 08/18/24 15:03 BP 122/65 08/18/24 17:03 Pulse Ox 97 08/18/24 15:03 FiO2 40 08/07/24 08:11 Intake & Output 08/17/24 08/18/24 08/18/24 18:59 06:59 18:59 Intake Total 300 Output Total 1300 1350 Balance -1300 300 -1350 Weight 68.9 kg Intake: Oral 300 Output: Urine 1300 1350 Other: Voiding Method Indwelling Catheter Indwelling Catheter Indwelling Catheter # Bowel Movements 1 1 - Exam GENERAL: 63-year-old frail looking in no distress on 1 L nasal cannula HEENT: Pupils are round and equally reacting to light. EOMI. No scleral icterus. No conjunctival pallor. Normocephalic, atraumatic. No pharyngeal erythema. No thyromegaly. CARDIOVASCULAR: S1 and S2 present. No murmurs, rubs, or gallops. PULMONARY: Diminished breath sounds at the bases no rhonchi no crackles no wheezes ABDOMEN: Nontender no rebound no guarding positive bowel sounds MUSCULOSKELETAL: No deformities no limitation range of motion EXTREMITIES: No cyanosis, clubbing, or pedal edema. NEUROLOGICAL: Looks weak, otherwise no gross focal neurologic deficit. SKIN: No rashes - Labs CBC & Chem 7: 08/16/24 06:16 08/16/24 06:16 Labs: Abnormal Lab Results - Last 24 Hours (Table) 08/18/24 08/18/24 08/18/24 Range/Units 05:38 11:18 16:43 POC Glucose (mg/dL) 123 H 147 H 117 H (70-110) mg/dL Microbiology - Last 24 Hours (Table) 08/15/24 15:47 Blood Culture - Preliminary Blood Assessment and Plan Assessment: Impression: Acute hypoxic respiratory failure secondary to acute systolic congestive heart failure Resolving ileus, gastric distention post NG tube insertion for gastric decompression and the tube was removed and a CAT scan of the abdomen was noted. General surgery is on the case and the patient is currently on IV Zosyn. Acute febrile illness, recovered and the patient is currently afebrile Acute leukocytosis, improved Urinary retention, has a Ragland catheter in place with adequate urine outputAcute kidney injury, improved Coronary artery disease with previous PCI. The patient had elevated troponins rule out non-ST elevation [place]. History of hypertension. History of hyperlipidemia. Diabetes mellitus type 2, uncontrolled. History of peripheral vascular disease. History of left foot transmetatarsal amputation. History of right 4th and 5th toe amputation on the right. History of nondisplaced oblique fracture of the left greater trochanter. Tobacco dependence syndrome Recommendation: Continue diuretics Continue Zosyn and Diflucan Continue Toprol-XL and Imdur as well as farxiga Continue amiodarone Advance diet as tolerated Will continue to Time with Patient: Less than 30
--- NOTE | 2024-08-18 17:51 | P.PN ---
Subjective Progress Note Date: 08/18/24 Principal diagnosis: Ileus/gastroparesis Patient had some mild nausea earlier today. Denies vomiting. Says she is hungry. She has been on ice chips however apparently the has been giving her some liquids. CAT scan performed yesterday shows no definite obstruction. Dilated stomach again noted. Objective - Vital Signs Vital signs: Vital Signs Temp 98.2 F 08/18/24 15:03 Pulse 70 08/18/24 15:03 Resp 20 08/18/24 15:03 BP 122/65 08/18/24 17:03 Pulse Ox 97 08/18/24 15:03 FiO2 40 08/07/24 08:11 Intake & Output 08/17/24 08/18/24 08/18/24 18:59 06:59 18:59 Intake Total 300 Output Total 1300 1350 Balance -1300 300 -1350 Weight 68.9 kg Intake: Oral 300 Output: Urine 1300 1350 Other: Voiding Method Indwelling Catheter Indwelling Catheter Indwelling Catheter # Bowel Movements 1 1 - Exam Abdomen: Soft, mild distention, nontender - Labs CBC & Chem 7: 08/16/24 06:16 08/16/24 06:16 Labs: Abnormal Lab Results - Last 24 Hours (Table) 08/18/24 08/18/24 08/18/24 Range/Units 05:38 11:18 16:43 POC Glucose (mg/dL) 123 H 147 H 117 H (70-110) mg/dL Microbiology - Last 24 Hours (Table) 08/15/24 15:47 Blood Culture - Preliminary Blood Assessment and Plan (1) Ileus Narrative/Plan: 63-year-old female with gastric distention and suspected ileus. Possible gastroparesis component. Discussed need for nasogastric tube decompression. Patient still refusing. Patient high risk for aspiration with any endoscopic ev aluation. Discussed options of continued medical support as we are doing now with TPN and bowel rest, nasogastric tube with gastric decompression and bowel rest with TPN, or comfort/hospice measures. Patient will consider and notify us of her decision. Certainly upper endoscopy is reasonable to consider but would not do that without reattempted gastric decompression for the increased risk of aspiration causing respiratory failure. Current Visit: Yes Status: Acute Code(s): K56.7 - ILEUS, UNSPECIFIED SNOMED Code(s): 238454191
[2024-08-18 20:06] LABS: Glucose,Whole Blood 97 mg/dL (70-110)
--- NOTE | 2024-08-19 03:54 | PN ---
PROGRESS NOTE DATE OF SERVICE: 08/18/2024 SUBJECTIVE: This 63-year-old woman who was admitted with multiple complex medical issues and gastric dilatation. The patient apparently refused NG tube for decompression. A CT scan of the abdomen and pelvis showed gastric distention and multiple abnormalities also. The patient is being closely monitored. PAST MEDICAL HISTORY: Reviewed. REVIEW OF SYSTEMS: 14-point review of systems negative except as mentioned earlier. CURRENT MEDICATIONS: Reviewed. PHYSICAL EXAMINATION: VITAL SIGNS: Pulse is 74, blood pressure 130/59, respirations 20. HEENT: Conjunctivae normal. NECK: No JVD. CARDIOVASCULAR: S1 and S2. RESPIRATIONS: Decreased breath sounds at the bases. A few scattered rhonchi. ABDOMEN: Soft. No stroke. LABORATORY DATA: WBC 15.73, rest of the labs are noted. Culture showed urine culture, Chrissy albicans. ASSESSMENT: 1. Acute hypoxic respiratory failure secondary to pneumonia. 2. Gastric dilatation and possible intestinal ileus with gastroparesis, possibly. 3. Chrissy in the urine. 4. Hypotension. 5. Supraventricular tachycardia, recalcitrant on amiodarone. 6. Acute kidney injury. 7. Elevated troponins. 8. Hypertension. 9. Hyperlipidemia. 10.Diabetes mellitus, type 2. 11.History of peripheral vascular disease. RECOMMENDATIONS: I recommend to continue current management and continue symptomatic treatment. The patient is making slow improvement, but however, the patient has multiple complex medical issues. We will continue to monitor and once symptoms improved, I would recommend PT/OT evaluation, possible ECF rehab. Repeat labs. Closely follow with Surgery and guarded prognosis. Further recommendations to follow. MMODL / IJN: [id number] /
[2024-08-19 05:49] LABS: Glucose,Whole Blood 109 mg/dL (70-110)
[2024-08-19 06:55] LABS: Basophils # (A) 0.04 10*3/uL (0.00-0.10); Basophils % (A) 0.5 %; Eosinophils # (A) 0.08 10*3/uL (0.04-0.35); Eosinophils % (A) 1.1 %; HCT 29.3 % (37.2-46.3); HGB 9.1 g/dL (12.0-15.0); Lymphocytes # (A) 1.32 10*3/uL (0.90-5.00); Lymphocytes % (A) 17.7 %; MCH 27.2 pg (27.0-32.0); MCHC 31.1 g/dL (32.0-37.0); MCV 87.7 fL (80.0-97.0); Monocytes # (A) 0.38 10*3/uL (0.20-1.00); Monocytes % (A) 5.1 %; Neutrophils # (A) 5.60 10*3/uL (1.80-7.70); Neutrophils % (A) 75.2 %; Platelet Count 318 10*3/uL (140-440); RBC 3.34 10*6/uL (4.10-5.20); RDW 15.2 % (11.5-14.5); WBC 7.45 10*3/uL (4.50-10.00)
[2024-08-19 07:24] LABS: African American GFR (CKD) >90 (>60 ml/min/1.73 sqM); Anion Gap 10 mmol/L; Blood Urea Nitrogen 14 mg/dL (7-17); Calcium 8.1 mg/dL (8.4-10.2); Carbon Dioxide 25 mmol/L (22-30); Chloride 103 mmol/L (98-107); Glucose 94 mg/dL (74-99); Non-African American GFR(CKD) >90 (>60 ml/min/1.73 sqM); Potassium 4.1 mmol/L (3.5-5.1); Sodium 138 mmol/L (137-145)
[2024-08-19 11:48] LABS: Glucose,Whole Blood 107 mg/dL (70-110)
--- NOTE | 2024-08-19 12:20 | P.PN ---
Subjective Progress Note Date: 08/19/24 SURGICAL PROGRESS NOTE CHIEF COMPLAINT: CHF and pneumonia HISTORY OF PRESENT ILLNESS: Patient sitting at side of bed with physical therapist. Patient denies abdominal pain. She reports having flatus and a small bowel movement yesterday and today. She does report a lot of belching. She had declined the NG tube. Patient had dilated stomach noted on CT scan. PHYSICAL EXAM: VITAL SIGNS: Reviewed. GENERAL: Well-developed in no acute distress. ABDOMEN: Soft. Mild distention, nontender. NEUROLOGIC: Alert and oriented. Cranial nerves II through XII grossly intact. ASSESSMENT: 1. Ileus and gastric distention 2. Possible gastroparesis 3. Severe protein calorie malnutrition PLAN: - Keep patient n.p.o. - Patient declined NG tube - Dietitian consulted for TPN for nutrition support - Increase activity is much as possible Physician Flask Fitter note has been reviewed by physician. Signing provider agrees with the documented findings, assessment, and plan of care. I have personally seen and examined the patient, reviewed the MANAGER SERVICES /PAs history, exam and MDM and agree with the assessment and plan as written. Based on total visit time, I have performed more than 50% of the visit. As above: Patient did have significant belching today. She says she feels less bloated. Will repeat abdominal x-rays tomorrow. Continue n.p.o. with TPN. Objective - Vital Signs Vital signs: Vital Signs Temp 97.6 F 08/19/24 03:26 Pulse 74 08/19/24 08:44 Resp 16 08/19/24 08:44 BP 106/65 08/19/24 03:26 Pulse Ox 100 08/19/24 08:32 FiO2 40 08/07/24 08:11 Intake & Output 08/18/24 08/19/24 08/19/24 18:59 06:59 18:59 Intake Total 80 30 Output Total 1350 900 675 Balance -1350 -820 -645 Weight 69 kg Intake: IV 80 30 Invasive Line 6 10 Invasive Line 7 60 20 Invasive Line 8 10 10 Output: Urine 1350 900 675 Other: Voiding Method Indwelling Catheter Indwelling Catheter Indwelling Catheter # Bowel Movements 1 - Labs CBC & Chem 7: 08/19/24 06:01 08/19/24 06:01 Labs: Abnormal Lab Results - Last 24 Hours (Table) 08/18/24 08/19/24 08/19/24 Range/Units 16:43 06:01 06:01 RBC 3.34 L (4.10-5.20) 10*6/uL Hgb 9.1 L (12.0-15.0) g/dL Hct 29.3 L (37.2-46.3) % MCHC 31.1 L (32.0-37.0) g/dL POC Glucose (mg/dL) 117 H (70-110) mg/dL Calcium 8.1 L (8.4-10.2) mg/dL Microbiology - Last 24 Hours (Table) 08/15/24 15:47 Blood Culture - Preliminary Blood
[2024-08-19] MEDS: MVI, ADULT NO.4 WITH VIT K 10 ML, TRACE (CONC-1ML/DOSE) 1 ML in AMINO ACID 5%-D20W+LYTE... IV SCH (14:36)
--- NOTE | 2024-08-19 14:55 | P.PN ---
Subjective Progress Note Date: 08/18/24 Principal diagnosis: Reason for follow-up is fever/pneumonia Patient is a 63-year-old female with a past medical history significant for diabetes mellitus reflux hypertension hyperlipidemia [place] CVA TIA previous patient noted to have history of recurrent UTI recently discharged from this hospital after receiving treatment for UTI cystitis has been brought back to the hospital concerning for generalized weakness along with mental status changes and low oxygen patient did have a low-grade fever chest x-ray with multifocal airspace opacity probably this consultation. On today's evaluation that is 08/18/2024, patient has been afebrile, patient is breathing comfortably and is currently on 1 L nasal cannula oxygen patient denies having any chest pain and cough, patient denies nausea vomiting abdominal discomfort has decreased intensity having bowel movement. Patient did have a lab draw today Objective - Vital Signs Vital signs: Vital Signs Temp 97.6 F 08/18/2024 12:00 Pulse 74 08/18/2024 12:00 Resp 16 08/18/2024 12:00 BP 106/65 08/18/2024 12:00 Pulse Ox 100 08/18/2024 12:00 FiO2 40 08/18/2024 12:00 - Exam GENERAL DESCRIPTION: Middle-age female lying in bed in no distress RESPIRATORY SYSTEM: Unlabored breathing , decreased breath sounds at bases HEART: S1 S2 regular rate and rhythm , ABDOMEN: Soft , no tenderness EXTREMITIES: Bilateral heel wounds are currently dressed - Labs CBC & Chem 7: 08/19/24 06:01 08/19/24 06:01 Labs: Abnormal Lab Results - Last 24 Hours (Table) 08/18/24 08/19/24 08/19/24 Range/Units 16:43 06:01 06:01 RBC 3.34 L (4.10-5.20) 10*6/uL Hgb 9.1 L (12.0-15.0) g/dL Hct 29.3 L (37.2-46.3) % MCHC 31.1 L (32.0-37.0) g/dL POC Glucose (mg/dL) 117 H (70-110) mg/dL Calcium 8.1 L (8.4-10.2) mg/dL Microbiology - Last 24 Hours (Table) 08/15/24 15:47 Blood Culture - Preliminary Blood Assessment and Plan (1) Pneumonia Current Visit: Yes Status: Acute Code(s): J18.9 - PNEUMONIA, UNSPECIFIED ORGANISM SNOMED Code(s): 643663937 (2) Sepsis Current Visit: Yes Status: Acute Code(s): A41.9 - SEPSIS, UNSPECIFIED ORGANISM SNOMED Code(s): 73412532 (3) Pressure ulcer, heel, right, unstageable Current Visit: No Status: Acute Code(s): L89.610 - PRESSURE ULCER OF RIGHT HEEL, UNSTAGEABLE SNOMED Code(s): 58887846639842332 Plan: 1patient presented to the hospital with sepsis in this patient who did have a fever tachycardia elevated white count meeting criteria for SIRS/sepsis with evidence of diffuse multifocal airspace opacities will need to cover for the resistant gram-negative with the likely pathogen as the patient was recently discharged from this facility and exposed to antibiotics 2blood culture remains to be negative sputum has already been collected, urine for Legionella antigen negative 3keep bilateral heel area of the pressure to prevent any worsening of the bilateral heel pressure ulcer 4-patient did have persistent features of ileus on the abdominal x-ray CT did shows improvement in the bowel ileus versus gastric distention 5we will continue the patient on Zosyn repeat CBC with a.m. lab Dictation was produced using [employer] dictation software. please excuse any grammatical, word or spelling errors.
--- NOTE | 2024-08-19 14:56 | P.PN ---
Subjective Progress Note Date: 08/19/24 Principal diagnosis: Reason for follow-up is fever/pneumonia Patient is a 63-year-old female with a past medical history significant for diabetes mellitus reflux hypertension hyperlipidemia [place] CVA TIA previous patient noted to have history of recurrent UTI recently discharged from this hospital after receiving treatment for UTI cystitis has been brought back to the hospital concerning for generalized weakness along with mental status changes and low oxygen patient did have a low-grade fever chest x-ray with multifocal airspace opacity probably this consultation. On today's evaluation that is 08/19/2024, Patient is afebrile this morning patient denies having any chest pain shortness of breath or cough, the patient is currently on 3 L current oxygen patient denies any abdominal pain no diarrhea no nausea no vomiting. Patient with 27.45 creatinine 0.60 blood culture repeat so far negative Objective - Vital Signs Vital signs: Vital Signs Temp 97.6 F 08/19/24 03:26 Pulse 74 08/19/24 08:44 Resp 16 08/19/24 08:44 BP 106/65 08/19/24 03:26 Pulse Ox 100 08/19/24 08:32 FiO2 40 08/07/24 08:11 Intake & Output 08/18/24 08/19/24 08/19/24 18:59 06:59 18:59 Intake Total 80 30 Output Total 1350 900 675 Balance -1350 -820 -645 Weight 69 kg 69 kg Intake: IV 80 30 Invasive Line 6 10 Invasive Line 7 60 20 Invasive Line 8 10 10 Output: Urine 1350 900 675 Other: Voiding Method Indwelling Catheter Indwelling Catheter Indwelling Catheter # Bowel Movements 1 - Exam GENERAL DESCRIPTION: Middle-age female lying in bed in no distress RESPIRATORY SYSTEM: Unlabored breathing , decreased breath sounds at bases HEART: S1 S2 regular rate and rhythm , ABDOMEN: Soft , no tenderness EXTREMITIES: Bilateral heel wounds are currently dressed - Labs CBC & Chem 7: 08/19/24 06:01 08/19/24 06:01 Labs: Abnormal Lab Results - Last 24 Hours (Table) 08/18/24 08/19/24 08/19/24 Range/Units 16:43 06:01 06:01 RBC 3.34 L (4.10-5.20) 10*6/uL Hgb 9.1 L (12.0-15.0) g/dL Hct 29.3 L (37.2-46.3) % MCHC 31.1 L (32.0-37.0) g/dL POC Glucose (mg/dL) 117 H (70-110) mg/dL Calcium 8.1 L (8.4-10.2) mg/dL Microbiology - Last 24 Hours (Table) 08/15/24 15:47 Blood Culture - Preliminary Blood Assessment and Plan (1) Pneumonia Current Visit: Yes Status: Acute Code(s): J18.9 - PNEUMONIA, UNSPECIFIED ORGANISM SNOMED Code(s): 928372065 (2) Sepsis Current Visit: Yes Status: Acute Code(s): A41.9 - SEPSIS, UNSPECIFIED ORGANISM SNOMED Code(s): 48330899 (3) Pressure ulcer, heel, right, unstageable Current Visit: No Status: Acute Code(s): L89.610 - PRESSURE ULCER OF RIGHT HEEL, UNSTAGEABLE SNOMED Code(s): 90322337829171859 Plan: 1patient presented to the hospital with sepsis in this patient who did have a fever tachycardia elevated white count meeting criteria for SIRS/sepsis with evidence of diffuse multifocal airspace opacities will need to cover for the resistant gram-negative with the likely pathogen as the patient was recently discharged from this facility and exposed to antibiotics patient completed course of antibiotic for pneumonia 2keep bilateral heel area of the pressure to prevent any worsening of the bilateral heel pressure ulcer 3patient with low-grade fever elevated white count and ileus for the patient was started on Zosyn patient white count normalized culture been negative so far and did have some improvement as far as ileus is concerned we will monitor clinical course closely Dictation was produced using [employer] dictation software. please excuse any grammatical, word or spelling errors. Time with Patient: Less than 30
--- NOTE | 2024-08-19 15:02 | P.PN ---
Subjective Progress Note Date: 08/19/24 Principal diagnosis: Acute hypoxic respiratory failure secondary to congestive heart failure/systolic in nature with ejection fraction of 35% Patient is a 63 female with past medical history significant for hypertension, hyperlipidemia, diabetes mellitus type 2, coronary disease with previous PCI/stents, peripheral vascular disease, left foot metatarsal amputation as well as right fourth-fifth toe amputation. Of note, patient recently hospitalized May, with left hip fracture. CT of the left hip showing a nondisplaced oblique fracture through the superior corner of the left greater trochanter. Did return to the hospital 07/22/2024 with abdominal pain. Thought to possible have a urinary tract infection. Abdominal/pelvis CT remarkable for bilateral hydronephrosis, right greater than left, bladder wall thickening, and small bowel ileus. Incidental findings of bilateral pleural effusions and compressive atelectasis. Patient was discharged on 08/01/2024. Patient returns to the emergency department 2 days later complaining of increased weakness, fevers, and shortness of breath. She was placed on BiPAP initially in the ED. She was also noted to be hypotensive and has been fluid resuscitated with a total of 3 L of crystalloid fluid so far. Febrile with a temperature of 100.3 F. Workup including a chest x-ray showing multifocal airspace opacities concerning for pneumonia. Denies any coughing, sputum production, hemoptysis, chest pain. Denies any history of heart failure. Denies any lower extremity edema. Denies any she denies any dysuria, frequency, hematuria, suprapubic pain or flank pain. She is retaining urine and a bedside bladder scan showed 850 cc of urine in the bladder. Labs including a CBC with a WBC count of 19.4, hemoglobin 13, platelets 681. CMP: Sodium 131, potassium 4.3, chloride 100, serum bicarb 18, BUN 22, creatinine 1.36, glucose 389. Lactic was 2.7 is down to 2.5. LFTs not elevated. Troponin was 0.376. NT proBNP significantly elevated at 12,900. Patient currently being evaluated in the emergency department. She is on BiPAP with settings 14/6 and FiO2 40%. SpO2 reading 100% on bedside monitor. She does not appear to be any respiratory distress. Talking complete sentences. No accessory muscle use. She was easily transitioned to nasal cannula. Blood pressure currently 100/66 mmHg. She was empirically placed on a combination of Levaquin and Zosyn in the ED. Currently afebrile. The patient is seen today August 05, 2024 in follow-up on the selective care unit. She is currently resting in bed. Awake and alert in no acute distress. Maintaining O2 saturations in the 90s on 3 L/min per nasal cannula. She is afebrile. Hemodynamically stable. Chest x-ray reveals increased diffuse lung markings bilaterally. Urine culture positive for Chrissy. Blood culture pending. White count 9.7. Hemoglobin 8.8. Platelets 427. Sodium 140. Potassium 3.6. Bicarb 19. BUN 18. Creatinine 1.14. Glucose 189. Procalcitonin 21.6. She remains on DuoNeb inhalations, antibiotics in the form of Zosyn and Levaquin. Initiated on Diflucan. Heparin for DVT prophylaxis. Progress note dated August 06, 2024. The patient is seen today in room 372. She is currently resting in bed. She is awake and alert. No acute distress. The patient continues on 2 L nasal O2. She is getting saline at 75 cc an hour. She is hemodynamically stable. No new labs today other than a glucose of 201. Urine was positive for Chrissy. No new x-ray to report. The patient continues on fluconazole, Levaquin, and Zosyn. Progress note dated August 07, 2024. 63-year-old female who was transferred to the intensive care unit, at about 11 PM last night. She came in because of supraventricular tachycardia. She was moved over by my nurse practitioner. She is seen today in room 261. She is on 3 L nasal O2. She is getting saline at 75 cc an hour, and amiodarone 0.5 mg/min. She came into the intensive care unit, at 11 PM. She has been on BiPAP, at 14/6, 40%, for 6 hours. Current labs include a white count of 12.4, hemoglobin 9, hematocrit 27.9, platelet count 331,000. Sodium 134, potassium 3.7, chloride 102, CO2 23, anion gap 9, BUN 12, creatinine 0.63. Glucose 297. Calcium 7. Magnesium 1.3. Albumin 2.2. Urine culture was positive for Chrissy albicans. Chest x-ray shows an improved right lower lobe infiltrate, and possible mild fluid overload. Progress note dated August 08, 2024. 63-year-old female seen today in room 261. She is currently on 3 L of oxygen. She is getting saline at 75 cc an hour. Yesterday she was on IV amiodarone. Now she is on p.o. amiodarone. Clinically, she is doing well. Her major complaint is pain. She is also having some issues with insomnia. Anyway, I mention to her that she should talk to her hospital doctor about those 2 issues. Current labs include a white count of 10.0, hemoglobin 8.5, hematocrit 26.5, platelet count of 2 94,000. Sodium 135, potassium 3.9, chlorides 103, CO2 27, BUN 11, creatinine 0.71. Glucose is 150. Calcium is 7. Albumin is 2.1. Chest x-ray shows cardiomegaly, with pulmonary venous congestion. Progress note dated August 09, 2024. 63-year-old female seen today in room 353. She was in the intensive care unit yesterday. Is resting comfortably in bed. She is on saline at 75 cc an hour, and receiving nasal cannula, 3 L. No acute distress. She is awake and alert. White count 10.9, hemoglobin 8.9, hematocrit 27.6, platelet count is normal. Sodium 136, potassium 4.3, chlorides 105, CO2 26, BUN 10, and creatinine 0.58. Calcium is 7.4. Microbiology is currently negative. No chest x-ray today. Progress note dated August 10, 2024. 63-year-old female seen today in room 353. The patient is currently getting saline at 20 cc an hour. He is getting nasal oxygen, 3 L, O2 saturation 98%. She is in no acute distress. She is resting comfortably in bed. Her procalcitonin level was 21.6. White count 8.1, hemoglobin 8.6, hematocrit 27.1, platelet count 330,000. Sodium 137, potassium 3.8, chlorides 105, CO2 28, BUN 11, creatinine 0.65. Glucose is 102. Calcium is 7.6. On 08/11/2024, the patient is being seen for a follow-up. The patient is currently on 2 L of oxygen by nasal cannula. She is diuresing well and the patient remains in negative fluid balance. Over the past 48 hours, the patient had 2.4 L negative fluid balance and another 2 L negative fluid balance and she reports improvement lower extremity edema. Her echocardiogram shows an ejection fraction of 35% with questionable vegetation involving the aortic valve. Nevertheless, the patient's blood cultures been negative. IV fluids are cu rrently at KVO. Ragland catheter is in place. Cardiac rhythm is sinus. The patient does have some increased abdominal tympany and distention. Nevertheless, she reports flatus and bowel movement activity. Chest x-ray shows improvement in CHF with mild residual pulm vessel congestion. Small left-sided pleural effusion is still present. The patient also had an abdominal x-ray and there is gas/distended stomach and colon but overall picture is nonobstructive. Possibility of underlying ileus cannot be completely ruled out. The white cell count is at 8 with a hemoglobin 8.6 and a platelet count of 330. Electrolytes are normal, BUN is 11 with a creatinine of 0.6. On 08/12/2024, the patient is being seen for a follow-up. On today's evaluation, the patient is in, comfortable and she is on 2 L of oxygen by nasal cannula. She is feeling well. She has systolic heart failure with an ejection fraction of 35% in addition to coronary artery disease, hypertension hyperlipidemia diabetes mellitus and peripheral vascular disease. She remains on IV Lasix. Fluid balance is -5 L over the past 24 hours and the repeat chest x-ray from yesterday showed improvement in the volume status and the patient had residual bilateral pleural effusion and atelectatic changes of mild pulm vascular conges tion. Abdominal x-ray was consistent with possible ileus. Abdomen is less tympanic on today's evaluation and seems to be less distended. She has no other new complaints. No new labs are available from today. Ragland catheter is in place and the patient remains on IV Lasix and Aldactone. She is on Lantus insulin 11 units daily. She is on Levaquin. Rest of medications are essentially unchanged On 08/13/2024, I am seeing the patient for a follow-up. The patient is feeling better. She seems to be less short of breath. Oxygenation is stable and the patient is currently on 2 L of oxygen by nasal cannula with a pulse ox ranging between 94 to 97%. The patient is being diuresed with IV Lasix and the patient is negative fluid balance of 4.7 L over the past 24 hours. She remains on Lasix 20 mg IV push every 12 hours. She remains on DuoNeb treatments [id number]. She is on empiric antibiotic coverage with IV Levaquin. She is also on Aldactone. Rest of medications remain unchanged. No new labs are available from today. A repeat chest x-ray was done on 08/13/2024 and there is improved aeration bilaterally and there is some residual pulm vascular congestion and small left-sided pleural effusion still present. Overall x-ray findings have improved considerably. On 08/14/2024, the patient is being seen for a follow-up. The patient is doing well. The patient is diuresing adequately and the patient has been negative fluid balance of 3.5 L over the past 24 hours. Noted the patient remains on IV Lasix and the patient has produced excellent amount of urine output and she remains on a negative fluid balance. She remains on Lasix 20 mg IV every 12 hours. Rest of the medications are essentially unchanged. The patient remains on Aldactone 12.5 mg p.o. daily. She remains on Levaquin and this has been switched to 750 mg p.o. on a daily basis. Afebrile. Remains on DuoNeb updrafts. Blood work from today shows a sodium level of 133 with a potassium level of 4, BUN 16 with a creatinine of 0.8. The patient is currently on 3 S liters by nasal cannula with a pulse ox of 97%. She reports improvement in her breathing and the patient seems to be less short of breath. She has generalized weakness and fatigue. Abdomen is less distended. On 08/15/2024, the patient is being seen for a follow-up. The patient is stable from the pulmonary standpoint. She remains on 2 L of oxygen by nasal cannula with pulse ox of 98%. Nevertheless, overnight, the patient developed some increased abdominal distention. NG tube was inserted for gastric decompression and immediately 300 cc of gastric output was obtained. X-ray of the abdomen showed significant gastric distention of the stomach with intraluminal content. There is also gaseous distention of the bowel in the right side of the abdomen. Based on that, the patient was given an NG tube. Surgical consultation was also obtained and the patient will be given bowel rest, in addition to NG tube decompression. Lactulose was also added. Reglan was added. Otherwise, the patient is doing well. She is hemodynamically stable. Fluid balance is -3.7 L over the past 24 hours. Repeat chest x-ray shows small residual left-sided pleural effusion. The diuretics will be discontinued today. She continues to be on Levaquin. Zosyn was also added by infectious disease. The white cell count is at 12.2 with a hemoglobin 8.9 and a platelet count of 326. Electrolytes are all normal. Sodium level is at 133, bicarb is at 33, BUN 16 with a creatinine of 0.7. On 08/16/2024, the patient is being seen for a follow-up. On today's evaluation, the patient remains NPO. NG tube is in place. Abdomen is less distended. No significant respiratory difficulties for now. The patient remains on oxygen and the patient is currently on 2 L of O2 nasal cannula with a pulse ox of 96%. The white seconds at 15.7 with a hemoglobin 8.5 and a platelet count of 326. BUN is 19 with a creatinine of 0.8. Sodium levels at 137. Repeat abdominal x-ray was done this morning and the patient continues to have nonspecific bowel gas pattern without evidence of any acute process. General surgery is on the case. The patient remains NPO. In terms of antibiotic coverage, the patient is on Zosyn and the patient remains on Diflucan. Rest of the medications are essentially unchanged. Continues to produce adequate amount of urine output. Fluid balance is -3.7 L over the past 24 hours. The patient is currently off Lasix. The patient was also seen by general surgery. Output from the NG tube has been elevated and the patient has small amount of flatus and some loose liquidy stools. It was decided to keep the NG tube in place for another 24 hours. On 08/17/2024, the patient is being seen for a follow-up. The patient opted to remove her NG. However, on today's evaluation, the abdomen is slightly distended. A flat film of the abdomen was done and the patient was found to have significant gastric distention and large bowel distention with moderate amount of stool throughout the colon. The bowel gas pattern was nonspecific and fecal material was demonstrated in the colon and the rectum. No evidence of any pneumoperitoneum. Based on that, the patient was seen again by general surgery. CAT scan of the abdomen and pelvis was done and the patient was found to have gastric distention and resolution of previously demonstrated dilated small and large bowels. There was contrast reaching the rectum. This may be consistent with resolving ileus/gastroparesis. Trace ascites, mild splenomegaly, small bilateral pleural effusion and compressive atelectasis in the lung bases bilaterally. Otherwise, the patient is doing well. She is on 1 L of oxygen by nasal cannula. Denies having any significant respiratory distress. Remains on bronchodilators. She is currently off diuretics. IV fluids with lactated Ri nger at rate of 75 cc an hour as the patient was kept NPO. The patient was covered with antibiotics per ID and the patient is currently on Zosyn and Diflucan. Denies having any other complaints otherwise for now. She is feeling slightly bloated. However, no nausea. No emesis. No abdominal pain. Seen today on 08/18/2024, patient is doing better, breathing easier on 1 L nasal cannula her load overload and congestive heart failure seems to be improving. Patient looks frail and chronically ill she is generally weak. No labs were done on this patient today. Patient was seen today on 08/19/2024, doing better, breathing easier, she is on 3 L nasal cannula with O2 sat of 100%, labs today including CBC, basic metabolic profile renal profile are normal, chest x-ray showed right lower lobe airspace opacities and mild pulmonary vascular congestion. Objective - Vital Signs Vital signs: Vital Signs Temp 97.6 F 08/19/24 03:26 Pulse 74 08/19/24 08:44 Resp 16 08/19/24 08:44 BP 106/65 08/19/24 03:26 Pulse Ox 100 08/19/24 08:32 FiO2 40 08/07/24 08:11 Intake & Output 08/18/24 08/19/24 08/19/24 18:59 06:59 18:59 Intake Total 80 30 Output Total 1350 900 675 Balance -1350 -820 -645 Weight 69 kg 69 kg Intake: IV 80 30 Invasive Line 6 10 Invasive Line 7 60 20 Invasive Line 8 10 10 Output: Urine 1350 900 675 Other: Voiding Method Indwelling Catheter Indwelling Catheter Indwelling Catheter # Bowel Movements 1 - Exam GENERAL: 63-year-old frail looking in no distress on 3 L nasal cannula HEENT: Pupils are round and equally reacting to light. EOMI. No scleral icterus. No conjunctival pallor. Normocephalic, atraumatic. No pharyngeal erythema. No thyromegaly. CARDIOVASCULAR: S1 and S2 present. No murmurs, rubs, or gallops. PULMONARY: Diminished breath sounds at the bases no rhonchi no crackles no wheezes ABDOMEN: Nontender no rebound no guarding positive bowel sounds MUSCULOSKELETAL: No deformities no limitation range of motion EXTREMITIES: No cyanosis, clubbing, or pedal edema. NEUROLOGICAL: Generally weak and frail, otherwise no gross focal neurologic deficit SKIN: No rashes - Labs CBC & Chem 7: 08/19/24 06:01 08/19/24 06:01 Labs: Abnormal Lab Results - Last 24 Hours (Table) 08/18/24 08/19/24 08/19/24 Range/Units 16:43 06:01 06:01 RBC 3.34 L (4.10-5.20) 10*6/uL Hgb 9.1 L (12.0-15.0) g/dL Hct 29.3 L (37.2-46.3) % MCHC 31.1 L (32.0-37.0) g/dL POC Glucose (mg/dL) 117 H (70-110) mg/dL Calcium 8.1 L (8.4-10.2) mg/dL Microbiology - Last 24 Hours (Table) 08/15/24 15:47 Blood Culture - Preliminary Blood Assessment and Plan Assessment: Impression: Acute hypoxic respiratory failure secondary to acute systolic congestive heart failure Resolving ileus, gastric distention post NG tube insertion for gastric decompression and the tube was removed and a CAT scan of the abdomen was noted. General surgery is on the case and the patient is currently on IV Zosyn. Acute febrile illness, recovered and the patient is currently afebrile Acute leukocytosis, improved Urinary retention, has a Ragland catheter in place with adequate urine outputAcute kidney injury, improved Coronary artery disease with previous PCI. The patient had elevated troponins rule out non-ST elevation ID. History of hypertension. History of hyperlipidemia. Diabetes mellitus type 2, uncontrolled. History of peripheral vascular disease. History of left foot transmetatarsal amputation. History of right 4th and 5th toe amputation on the right. History of nondisplaced oblique fracture of the left greater trochanter. Tobacco dependence syndrome Recommendation: Continue antibiotics/Zosyn Continue diuretics/Aldactone 12.5 mg p.o. daily Continue IV fluid at KVO Continue lactulose 20 g twice daily Continue cautious hydration Continue Zosyn and Diflucan Continue Toprol-XL and Imdur as well as farxiga Continue amiodarone Advance diet as tolerated Will continue to follow Time with Patient: Less than 30
[2024-08-19 18:03] LABS: Glucose,Whole Blood 142 mg/dL (70-110)
--- NOTE | 2024-08-19 19:30 | PN ---
PROGRESS NOTE DATE OF SERVICE: 08/19/2024 SUBJECTIVE: This 63-year-old woman is admitted with multiple complex medical issues, acute hypoxic secondary to pneumonia. The patient also had a gastric dilatation and unable to eat properly. The patient was recommended nasogastric tube decompression, which the patient refused and the patient is high risk for any endoscopic procedures. TPN has been suggested per Dr. Petty versus comfort and Ortho comfort measures. PAST MEDICAL HISTORY: Reviewed. REVIEW OF SYSTEMS: Could not be taken. CURRENT MEDICATIONS: Reviewed. PHYSICAL EXAMINATION: VITAL SIGNS: Pulse is 82, blood pressure 106/69, and respirations 16. HEENT: Conjunctivae normal. NECK: No JVD. CARDIOVASCULAR: S1 and S2. RESPIRATIONS: Decreased breath sounds at the bases. A few scattered rhonchi. ABDOMEN: Soft. Mild diffuse distention. LEGS: No edema. NERVOUS SYSTEM: Nonfocal. LABORATORY DATA: Hemoglobin 9.1. ASSESSMENT: 1. Acute hypoxic respiratory failure. Second pneumonia on presentation. 2. Gastric dilatation, possible intestinal ileus with gastroparesis, possibly. 3. Noncompliance and refusing decompression. 4. Chrissy in the urine. 5. Hypotension. 6. Supraventricular tachycardia recalcitrant, on amiodarone. 7. Acute kidney injury. 8. Elevated troponin. 9. Hypertension. 10.Hyperlipidemia. 11.Diabetes mellitus type 2. 12.History of peripheral vascular disease. 13.Multiple complex medical issues. 14.FULL CODE. RECOMMENDATIONS: Recommend to continue current management and continue symptomatic treatment otherwise as mentioned earlier. The prognosis is extremely guarded. Dr. Petty is recommending TPN versus comfort measures. Will have a discussion with the family. Continue to monitor. Monitor lytes closely. Repeat labs. Prognosis is extremely guarded because of above-mentioned medical issues and the patient's level of compliance as well. Further recommendations to follow. MMODL / IJN: [id number] /
[2024-08-19 21:51] LABS: Glucose,Whole Blood 158 mg/dL (70-110)
[2024-08-20 00:09] LABS: Glucose,Whole Blood 157 mg/dL (70-110)
[2024-08-20] MEDS: SODIUM CHLORIDE 0.9% 1,000 ML IV SCH (05:16)
[2024-08-20] MEDS: SODIUM CHLORIDE 0.9% 250 ML IV SCH (05:18)
[2024-08-20 06:19] LABS: Glucose,Whole Blood 169 mg/dL (70-110)
--- NOTE | 2024-08-20 07:13 | XR ---
EXAMINATION TYPE: XR abdomen 2V DATE OF EXAM: 08/20/2024 COMPARISON: Chest radiograph 08/18/2024, CT abdominal pelvis 08/17/2024, abdominal radiograph 08/17/2024 HISTORY: Follow-up gastric distention TECHNIQUE: Single supine KUB image of the abdomen is obtained FINDINGS: There is some improvement in gastric distention from prior exam. Mild gaseous distention of the colon . Residual contrast identified within the left colon. No small bowel dilatation or air-fluid level is identified. No convincing evidence for pneumoperitoneum. No unusual calcifications. Cholecystectomy clips in right upper quadrant. Right external iliac arter y vascular stent. The lung bases are clear. Prominent heart size. Lower lumbar spine fusion changes. Multilevel degenerative disc disease of the visualized thoracolumb ar spine. Stimulator lead is identified terminating in the lower thoracic spine with power pack overl elise the left upper quadrant. IMPRESSION: Improvement of previously seen gastric distention with mildly distended gas filled colon. No evidence for obstruction. [facility], , 08/20/2024 7:10 AM
[2024-08-20 07:50] LABS: Basophils # (A) 0.03 10*3/uL (0.00-0.10); Basophils % (A) 0.4 %; Eosinophils # (A) 0.18 10*3/uL (0.04-0.35); Eosinophils % (A) 2.3 %; HCT 27.2 % (37.2-46.3); HGB 8.7 g/dL (12.0-15.0); Lymphocytes # (A) 1.11 10*3/uL (0.90-5.00); Lymphocytes % (A) 14.3 %; MCH 27.5 pg (27.0-32.0); MCHC 32.0 g/dL (32.0-37.0); MCV 86.1 fL (80.0-97.0); Monocytes # (A) 0.46 10*3/uL (0.20-1.00); Monocytes % (A) 5.9 %; Neutrophils # (A) 5.96 10*3/uL (1.80-7.70); Neutrophils % (A) 76.8 %; Platelet Count 307 10*3/uL (140-440); RBC 3.16 10*6/uL (4.10-5.20); RDW 15.1 % (11.5-14.5); WBC 7.76 10*3/uL (4.50-10.00)
[2024-08-20 08:06] LABS: ALT 8 U/L (4-34); AST 17 U/L (14-36); African American GFR (CKD) >90 (>60 ml/min/1.73 sqM); Albumin 2.3 g/dL (3.5-5.0); Alkaline Phosphatase 43 U/L (38-126); Anion Gap 3 mmol/L; Blood Urea Nitrogen 12 mg/dL (7-17); Calcium 8.0 mg/dL (8.4-10.2); Carbon Dioxide 31 mmol/L (22-30); Chloride 104 mmol/L (98-107); Glucose 157 mg/dL (74-99); Magnesium 1.7 mg/dL (1.6-2.3); Non-African American GFR(CKD) >90 (>60 ml/min/1.73 sqM); Potassium 3.8 mmol/L (3.5-5.1); Sodium 138 mmol/L (137-145); Total Protein 4.6 g/dL (6.3-8.2)
[2024-08-20] MEDS: FAT EMULSION 20% 250 ML in EMPTY BAG 1 BAG IV SCH (09:13)
--- NOTE | 2024-08-20 11:13 | P.PN ---
Subjective Progress Note Date: 08/20/24 SURGICAL PROGRESS NOTE CHIEF COMPLAINT: CHF and pneumonia HISTORY OF PRESENT ILLNESS: Patient lying in bed comfortably. She denies any abdominal pain. She does report having flatus and bowel movement. She reports less belching. Abdominal x-ray from today reports improvement of previous seen gastric distention with mildly distended gas-filled colon. No evidence for obstruction. Afebrile. WBC 7.76. Patient started on TPN yesterday PHYSICAL EXAM: VITAL SIGNS: Reviewed. GENERAL: Well-developed in no acute distress. ABDOMEN: Soft. Distended. Nontender. Tympanic NEUROLOGIC: Alert and oriented. Cranial nerves II through XII grossly intact. ASSESSMENT: 1. Ileus and gastric distention 2. Possible gastroparesis 3. Severe protein calorie malnutrition PLAN: - Continue TPN for nutrition support - Keep patient n.p.o. - Continue to work with PT OT - Continue lactulose and Reglan Physician Brusher Warp note has been reviewed by physician. Signing provider agrees with the documented findings, assessment, and plan of care. I have personally seen and examined the patient, reviewed the [employer] /PAs history, exam and MDM and agree with the assessment and plan as written. Based on total visit time, I have performed more than 50% of the visit. As above: Patient feels well today. Denies nausea or vomiting. Will reassess tomorrow but if doing well likely will reinitiate liquid diet. Objective - Vital Signs Vital signs: Vital Signs Temp 97.7 F 08/20/24 08:00 Pulse 65 08/20/24 08:00 Resp 16 08/20/24 08:00 BP 102/65 08/20/24 08:00 Pulse Ox 94 L 08/20/24 08:00 FiO2 40 08/07/24 08:11 Intake & Output 08/19/24 08/20/24 08/20/24 18:59 06:59 18:59 Intake Total 60 20 10 Output Total 1325 1200 700 Balance -1265 -1180 -690 Weight 69 kg 69 kg Intake: IV 60 20 10 Invasive Line 7 40 Invasive Line 8 20 20 10 Output: Urine 1325 1200 700 Other: Voiding Method Indwelling Catheter Indwelling Catheter Indwelling Catheter - Labs CBC & Chem 7: 08/20/24 07:06 08/20/24 07:06 Labs: Abnormal Lab Results - Last 24 Hours (Table) 08/19/24 08/19/24 08/20/24 Range/Units 18:00 21:49 00:07 RBC (4.10-5.20) 10*6/uL Hgb (12.0-15.0) g/dL Hct (37.2-46.3) % MPV (9.5-12.2) fL Carbon Dioxide (22-30) mmol/L Glucose (74-99) mg/dL POC Glucose (mg/dL) 142 H 158 H 157 H (70-110) mg/dL Calcium (8.4-10.2) mg/dL Total Protein (6.3-8.2) g/dL Albumin (3.5-5.0) g/dL 08/20/24 08/20/24 08/20/24 Range/Units 06:17 07:06 07:06 RBC 3.16 L (4.10-5.20) 10*6/uL Hgb 8.7 L (12.0-15.0) g/dL Hct 27.2 L (37.2-46.3) % MPV 9.4 L (9.5-12.2) fL Carbon Dioxide 31 H (22-30) mmol/L Glucose 157 H (74-99) mg/dL POC Glucose (mg/dL) 169 H (70-110) mg/dL Calcium 8.0 L (8.4-10.2) mg/dL Total Protein 4.6 L (6.3-8.2) g/dL Albumin 2.3 L (3.5-5.0) g/dL
[2024-08-20 11:36] LABS: Glucose,Whole Blood 142 mg/dL (70-110)
--- NOTE | 2024-08-20 12:38 | P.PN ---
Subjective Progress Note Date: 08/20/24 Principal diagnosis: Reason for follow-up is fever/pneumonia Patient is a 63-year-old female with a past medical history significant for diabetes mellitus reflux hypertension hyperlipidemia DC CVA TIA previous patient noted to have history of recurrent UTI recently discharged from this hospital after receiving treatment for UTI cystitis has been brought back to the hospital concerning for generalized weakness along with mental status changes and low oxygen patient did have a low-grade fever chest x-ray with multifocal airspace opacity probably this consultation. On today's evaluation that is 08/20/2024,the patient denies any fever or any chills, patient is breathing comfortably on 2 L nasal cannula oxygen , the patient denies chest pain shortness of breath and no significant cough, patient denies abdominal pain, no nausea vomiting and is having bowel movements. Patient white count 7.76, creatinine 0.63 blood culture has been negative Objective - Vital Signs Vital signs: Vital Signs Temp 97.7 F 08/20/24 08:00 Pulse 65 08/20/24 08:00 Resp 16 08/20/24 08:00 BP 102/65 08/20/24 08:00 Pulse Ox 94 L 08/20/24 08:00 FiO2 40 08/07/24 08:11 Intake & Output 08/19/24 08/20/24 08/20/24 18:59 06:59 18:59 Intake Total 60 20 10 Output Total 1325 1200 1250 Balance -1265 1180 -1240 Weight 69 kg 69 kg Intake: IV 60 20 10 Invasive Line 7 40 Invasive Line 8 20 20 10 Output: Urine 1325 1200 1250 Other: Voiding Method Indwelling Catheter Indwelling Catheter Indwelling Catheter # Bowel Movements 1 - Exam GENERAL DESCRIPTION: Middle-age female lying in bed in no distress RESPIRATORY SYSTEM: Unlabored breathing , decreased breath sounds at bases HEART: S1 S2 regular rate and rhythm , ABDOMEN: Soft , no tenderness EXTREMITIES: Bilateral heel wounds are currently dressed - Labs CBC & Chem 7: 08/20/24 07:06 08/20/24 07:06 Labs: Abnormal Lab Results - Last 24 Hours (Table) 08/19/24 08/19/24 08/20/24 Range/Units 18:00 21:49 00:07 RBC (4.10-5.20) 10*6/uL Hgb (12.0-15.0) g/dL Hct (37.2-46.3) % MPV (9.5-12.2) fL Carbon Dioxide (22-30) mmol/L Glucose (74-99) mg/dL POC Glucose (mg/dL) 142 H 158 H 157 H (70-110) mg/dL Calcium (8.4-10.2) mg/dL Total Protein (6.3-8.2) g/dL Albumin (3.5-5.0) g/dL 08/20/24 08/20/24 08/20/24 Range/Units 06:17 07:06 07:06 RBC 3.16 L (4.10-5.20) 10*6/uL Hgb 8.7 L (12.0-15.0) g/dL Hct 27.2 L (37.2-46.3) % MPV 9.4 L (9.5-12.2) fL Carbon Dioxide 31 H (22-30) mmol/L Glucose 157 H (74-99) mg/dL POC Glucose (mg/dL) 169 H (70-110) mg/dL Calcium 8.0 L (8.4-10.2) mg/dL Total Protein 4.6 L (6.3-8.2) g/dL Albumin 2.3 L (3.5-5.0) g/dL 08/20/24 Range/Units 11:33 RBC (4.10-5.20) 10*6/uL Hgb (12.0-15.0) g/dL Hct (37.2-46.3) % MPV (9.5-12.2) fL Carbon Dioxide (22-30) mmol/L Glucose (74-99) mg/dL POC Glucose (mg/dL) 142 H (70-110) mg/dL Calcium (8.4-10.2) mg/dL Total Protein (6.3-8.2) g/dL Albumin (3.5-5.0) g/dL Assessment and Plan (1) Pneumonia Current Visit: Yes Status: Acute Code(s): J18.9 - PNEUMONIA, UNSPECIFIED ORGANISM SNOMED Code(s): 680060248 (2) Sepsis Current Visit: Yes Status: Acute Code(s): A41.9 - SEPSIS, UNSPECIFIED ORGANISM SNOMED Code(s): 54529482 (3) Pressure ulcer, heel, right, unstageable Current Visit: No Status: Acute Code(s): L89.610 - PRESSURE ULCER OF RIGHT HEEL, UNSTAGEABLE SNOMED Code(s): 28154052844537637 Plan: 1patient presented to the hospital with sepsis in this patient who did have a fever tachycardia elevated white count meeting criteria for SIRS/sepsis with evidence of diffuse multifocal airspace opacities will need to cover for the resistant gram-negative with the likely pathogen as the patient was recently discharged from this facility and exposed to antibiotics patient completed course of antibiotic for pneumonia 2keep bilateral heel area of the pressure to prevent any worsening of the bilateral heel pressure ulcer 3patient did have resolution of her fever and patient white count is normalized and seems to be ileus is resolving continue with the Zosyn and monitor clinical course closely Dictation was produced using D[employer] dictation software. please excuse any grammatical, word or spelling errors. Time with Patient: Less than 30
[2024-08-20] MEDS: 1: MVI, ADULT NO.4 WITH VIT K 10 ML, TRACE (CONC-1ML/DOSE) 1 ML in AMINO ACID 5%-D20W+LY IV SCH (15:36)
--- NOTE | 2024-08-20 16:15 | PN ---
PROGRESS NOTE DATE OF SERVICE: 08/20/2024 SUBJECTIVE: This 63-year-old woman was admitted with multiple complex medical issues including acute hypoxic respiratory failure, pneumonia, also had significant abdominal issues including gastric dilatation also. The patient is being started on TPN. The family and the patient clearly communicated that the patient is not considering any hospice and no code at this time. THE PATIENT IS FULL CODE. The plain x-ray abdomen shows some minimal improvement. The patient is being closely monitored. PAST MEDICAL HISTORY: Reviewed. REVIEW OF SYSTEMS: 14-point review of systems negative, except as mentioned earlier. PHYSICAL EXAMINATION: VITAL SIGNS: Pulse is 96, blood pressure 111/67, respirations 16. CHEST: Few scattered rhonchi and crackles. ABDOMEN: Soft, mild diffuse distention. CARDIOVASCULAR: S1 and S2 normal. NERVOUS SYSTEM: Diffusely weak. LABORATORY DATA: Noted. ASSESSMENT: 1. Acute hypoxic respiratory failure, secondary to pneumonia on presentation. 2. Gastric dilatation, possible intestinal ileus with gastroparesis possibly. 3. Noncompliance and refusing decompression through NG tube. 4. Chrissy in the urine. 5. Hypotension. 6. Supraventricular tachycardia, on amiodarone. 7. Acute kidney injury. 8. Elevated troponin. 9. Hypertension. 10.Hyperlipidemia. 11.Diabetes type 2. 12.History of peripheral vascular disease. 13.Multiple complex medical issues. 14.FULL CODE. RECOMMENDATIONS: Continue current medications, symptomatic treatment. Otherwise, closely follow with multiple consultants. Repeat labs. As mentioned earlier, THE PATIENT IS FULL CODE. Continue the TPN. Monitor lytes closely. Prognosis guarded. Further recommendations to follow. MMODL / IJN: [id number] /
[2024-08-20 16:35] LABS: Glucose,Whole Blood 157 mg/dL (70-110)
--- NOTE | 2024-08-20 17:08 | P.PN ---
Subjective Progress Note Date: 08/20/24 Patient is a 63 female with past medical history significant for hypertension, hyperlipidemia, diabetes mellitus type 2, coronary disease with previous PCI/stents, peripheral vascular disease, left foot metatarsal amputation as well as right fourth-fifth toe amputation. Of note, patient recently hospitalized May, with left hip fracture. CT of the left hip showing a nondisplaced oblique fracture through the superior corner of the left greater trochanter. Did return to the hospital 07/22/2024 with abdominal pain. Thought to possible have a urinary tract infection. Abdominal/pelvis CT remarkable for bilateral hydronephrosis, right greater than left, bladder wall thickening, and small bowel ileus. Incidental findings of bilateral pleural effusions and compressive atelectasis. Patient was discharged on 08/01/2024. Patient returns to the emergency department 2 days later complaining of increased weakness, fevers, and shortness of breath. She was placed on BiPAP initially in the ED. She was also noted to be hypotensive and has been fluid resuscitated with a total of 3 L of crystalloid fluid so far. Febrile with a temperature of 100.3 F. Workup including a chest x-ray showing multifocal airspace opacities concerning for pneumonia. Denies any coughing, sputum production, hemoptysis, chest pain. Denies any history of heart failure. Denies any lower extremity edema. Denies any she denies any dysuria, frequency, hematuria, suprapubic pain or flank pain. She is retaining urine and a bedside bladder scan showed 850 cc of urine in the bladder. Labs including a CBC with a WBC count of 19.4, hemoglobin 13, platelets 681. CMP: Sodium 131, potassium 4.3, chloride 100, serum bicarb 18, BUN 22, creatinine 1.36, glucose 389. Lactic was 2.7 is down to 2.5. LFTs not elevated. Troponin was 0.376. NT proBNP significantly elevated at 12,900. Patient currently being evaluated in the emergency department. She is on BiPAP with settings 14/6 and FiO2 40%. SpO2 reading 100% on bedside monitor. She does not appear to be any respiratory distress. Talking complete sentences. No accessory muscle use. She was easily transitioned to nasal cannula. Blood pressure currently 100/66 mmHg. She was empirically placed on a combination of Levaquin and Zosyn in the ED. Currently afebrile. The patient is seen today August 05, 2024 in follow-up on the selective care unit. She is currently resting in bed. Awake and alert in no acute distress. Maintaining O2 saturations in the 90s on 3 L/min per nasal cannula. She is afebrile. Hemodynamically stable. Chest x-ray reveals increased diffuse lung markings bilaterally. Urine culture positive for Chrissy. Blood culture p ending. White count 9.7. Hemoglobin 8.8. Platelets 427. Sodium 140. Potassium 3.6. Bicarb 19. BUN 18. Creatinine 1.14. Glucose 189. Procalcitonin 21.6. She remains on DuoNeb inhalations, antibiotics in the form of Zosyn and Levaquin. Initiated on Diflucan. Heparin for DVT prophylaxis. The patient is seen today August 20, 2024 in follow-up on the selective care unit. She is currently resting in bed. Awake and alert in no acute distress. Maintaining good O2 saturation in the high 90s on 2 L/min per nasal cannula. She is afebrile. Hemodynamically stable. Blood cultures revealed no growth. White count 7.7. Hemoglobin 8.7. Platelets 307. Sodium 138. Potassium 3.8. Bicarb 31. BUN 12. Creatinine 0.63. Glucose 157. She remains on TPN at 68 mL/h. Receiving lipids every 72 hours. Heparin for DVT prophylaxis. She remains on Zosyn. Objective - Vital Signs Vital signs: Vital Signs Temp 97.7 F 08/20/24 08:00 Pulse 66 08/20/24 12:00 Resp 16 08/20/24 12:00 BP 111/67 08/20/24 12:00 Pulse Ox 98 08/20/24 12:00 FiO2 40 08/07/24 08:11 Intake & Output 08/19/24 08/20/24 08/20/24 18:59 06:59 18:59 Intake Total 60 20 20 Output Total 1325 1200 1850 Balance -4687 -1180 -1830 Weight 69 kg 69 kg Intake: IV 60 20 20 Invasive Line 7 40 Invasive Line 8 20 20 20 Output: Urine 1325 1200 1850 Other: Voiding Method Indwelling Catheter Indwelling Catheter Indwelling Catheter # Bowel Movements 1 - Exam GENERAL EXAM: Alert, 63-year-old female, resting comfortably in bed, on 2 L/min nasal cannula, comfortable in no apparent distress. HEAD: Normocephalic and atraumatic EYES: Normal reaction of pupils, equal size. NOSE: Clear with pink turbinates. THROAT: No erythema or exudates. NECK: No masses, no JVD. CHEST: No chest wall deformity. LUNGS: Equal air entry with no crackles, wheeze, rhonchi or dullness. No conversational dyspnea or accessory muscle use.. CVS: S1 and S2 normal with no audible murmur, regular rhythm. No extra heart sounds ABDOMEN: No hepatosplenomegaly, active bowel sounds, no guarding or rigidity. SPINE: No scoliosis or deformity SKIN: No rashes CENTRAL NERVOUS SYSTEM: No focal deficits, tone is normal in all 4 extremities. EXTREMITIES: Prior right 4th and 5th toe amputation and left foot transmetatarsal amputation. Unstageable right heel pressure ulcer. There is no peripheral edema, clubbing, or cyanosis. Peripheral pulses are intact. - Labs CBC & Chem 7: 08/20/24 07:06 08/20/24 07:06 Labs: Abnormal Lab Results - Last 24 Hours (Table) 08/19/24 08/19/24 08/20/24 Range/Units 18:00 21:49 00:07 RBC (4.10-5.20) 10*6/uL Hgb (12.0-15.0) g/dL Hct (37.2-46.3) % MPV (9.5-12.2) fL Carbon Dioxide (22-30) mmol/L Glucose (74-99) mg/dL POC Glucose (mg/dL) 142 H 158 H 157 H (70-110) mg/dL Calcium (8.4-10.2) mg/dL Total Protein (6.3-8.2) g/dL Albumin (3.5-5.0) g/dL 08/20/24 08/20/24 08/20/24 Range/Units 06:17 07:06 07:06 RBC 3.16 L (4.10-5.20) 10*6/uL Hgb 8.7 L (12.0-15.0) g/dL Hct 27.2 L (37.2-46.3) % MPV 9.4 L (9.5-12.2) fL Carbon Dioxide 31 H (22-30) mmol/L Glucose 157 H (74-99) mg/dL POC Glucose (mg/dL) 169 H (70-110) mg/dL Calcium 8.0 L (8.4-10.2) mg/dL Total Protein 4.6 L (6.3-8.2) g/dL Albumin 2.3 L (3.5-5.0) g/dL 08/20/24 08/20/24 Range/Units 11:33 16:26 RBC (4.10-5.20) 10*6/uL Hgb (12.0-15.0) g/dL Hct (37.2-46.3) % MPV (9.5-12.2) fL Carbon Dioxide (22-30) mmol/L Glucose (74-99) mg/dL POC Glucose (mg/dL) 142 H 157 H (70-110) mg/dL Calcium (8.4-10.2) mg/dL Total Protein (6.3-8.2) g/dL Albumin (3.5-5.0) g/dL Assessment and Plan Assessment: Acute hypoxemic respiratory failure, initially placed on BiPAP on arrival in the ED, now transitioned over to 2 L/min nasal cannula, chest x-ray showing multifocal airspace opacities concerning for pneumonia. Possible HCAP, patient covered empirically on antibiotics Resolving ileus, gastric distention post NG tube insertion for gastric decompression and the tube was removed and CT scan of the abdomen was noted. General surgery is following. Currently on Zosyn. Currently on TPN and lipids Hypotension, consider sepsis/septic shock Acute febrile illness Acute leukocytosis Urinary retention, abdominal/pelvis CT from previous admission remarkable for bilateral hydronephrosis, right greater than left, bladder wall thickening, and small bowel ileus Acute kidney injury, creatinine 1.36 Elevated troponins rule out non-ST elevation MS History of hypertension History of hyperlipidemia Diabetes mellitus type 2, uncontrolled History of coronary artery disease with previous PCI/stents History of peripheral vascular disease History of left foot transmetatarsal amputation History of right 4th and 5th toe amputation on the right History of nondisplaced oblique fracture of the left greater trochanter Currently undergoing tobacco dependence Plan: The patient was seen and evaluated Labs and medications reviewed Remains n.p.o. per surgical service Continued on TPN and lipids Continued on lactulose and Reglan Currently on 2 L nasal cannula Titrate the FiO2 as tolerated Currently on Zosyn Continued on bronchodilators Heparin for DVT prophylaxis Increase her activity as tolerated We will continue to follow I have personally seen and examined the patient, performed the documentation and the assessment and plan as written. Number of minutes spent on the visit: 10 Dictation was produced using [employer] dictation software. Please excuse any grammatical, word or spelling errors.
[2024-08-20 23:57] LABS: Glucose,Whole Blood 228 mg/dL (70-110)
[2024-08-21 06:25] LABS: Glucose,Whole Blood 226 mg/dL (70-110)
[2024-08-21 07:52] LABS: African American GFR (CKD) >90 (>60 ml/min/1.73 sqM); Anion Gap 4 mmol/L; Blood Urea Nitrogen 14 mg/dL (7-17); Calcium 8.3 mg/dL (8.4-10.2); Carbon Dioxide 31 mmol/L (22-30); Chloride 103 mmol/L (98-107); Glucose 205 mg/dL (74-99); Magnesium 1.7 mg/dL (1.6-2.3); Non-African American GFR(CKD) >90 (>60 ml/min/1.73 sqM); Potassium 4.1 mmol/L (3.5-5.1); Sodium 138 mmol/L (137-145)
--- NOTE | 2024-08-21 11:26 | P.PN ---
Subjective Progress Note Date: 08/21/24 SURGICAL PROGRESS NOTE CHIEF COMPLAINT: CHF and pneumonia HISTORY OF PRESENT ILLNESS: Patient denies any abdominal pain. She did have bowel movements yesterday she is having flatus. She is on TPN for nutrition. She is still distended. PHYSICAL EXAM: VITAL SIGNS: Reviewed. GENERAL: Well-developed in no acute distress. ABDOMEN: Soft. Distended. Nontender. Tympanic NEUROLOGIC: Alert and oriented. Cranial nerves II through XII grossly intact. ASSESSMENT: 1. Ileus and gastric distention 2. Possible gastroparesis 3. Severe protein calorie malnutrition PLAN: - Continue TPN for nutrition support - Keep patient n.p.o. - Continue to work with PT OT - Continue lactulose and Reglan Physician Observer [employer] note has been reviewed by physician. Signing provider agrees with the documented findings, assessment, and plan of care. I have personally seen and examined the patient, reviewed the [employer]PARATION [employer]ANT SUPERVISOR /PAs history, exam and MDM and agree with the assessment and plan as written. Based on total visit time, I have performed more than 50% of the visit. As above: Patient doing better at this time. Had a large amount of belching again today. Mild distention. Begin full liquid diet. Continue TPN. Objective - Vital Signs Vital signs: Vital Signs Temp 98 F 08/21/24 08:00 Pulse 69 08/21/24 08:00 Resp 16 08/21/24 08:00 BP 111/75 08/21/24 08:00 Pulse Ox 97 08/21/24 08:00 FiO2 40 08/07/24 08:11 Intake & Output 08/20/24 08/21/24 08/21/24 18:59 06:59 18:59 Intake Total 20 312.6 1210 Output Total 1850 1675 Balance -1830 -1362.4 1210 Weight 70.6 kg Intake: IV 20 10 10 Invasive Line 8 20 10 10 Intake, IV Titration 302.6 Amount Mvi, Adult No.4 with Vit 302.6 K 10 ml Trace (Conc-1Ml/ Dose) 1 ml In Amino Acid 5%-D20w+Lytes*E* 1,000 ml @ 68 mls/hr IV .BY DURATION MAGALY Rx#: [id number] Oral 1200 Output: Urine 1850 1675 Other: Voiding Method Indwelling Catheter Indwelling Catheter Indwelling Catheter # Voids 1 # Bowel Movements 1 - Labs CBC & Chem 7: 08/20/24 07:06 08/21/24 06:34 Labs: Abnormal Lab Results - Last 24 Hours (Table) 08/20/24 08/20/24 08/20/24 Range/Units 11:33 16:26 23:56 Carbon Dioxide (22-30) mmol/L Glucose (74-99) mg/dL POC Glucose (mg/dL) 142 H 157 H 228 H (70-110) mg/dL Calcium (8.4-10.2) mg/dL 08/21/24 08/21/24 Range/Units 06:24 06:34 Carbon Dioxide 31 H (22-30) mmol/L Glucose 205 H (74-99) mg/dL POC Glucose (mg/dL) 226 H (70-110) mg/dL Calcium 8.3 L (8.4-10.2) mg/dL Microbiology - Last 24 Hours (Table) 08/15/24 15:47 Blood Culture - Final Blood
[2024-08-21 11:31] LABS: Glucose,Whole Blood 256 mg/dL (70-110)
[2024-08-21] MEDS: IPRATROPIUM-ALBUTEROL 3 ML NEB INHALATION PRN (11:51)
[2024-08-21] MEDS: MAGNESIUM SULFATE-D5W PMX 1 GM in DEXTROSE/WATER 1 100ML.BAG IVPB ONE (12:37)
[2024-08-21 18:08] LABS: Glucose,Whole Blood 259 mg/dL (70-110)
[2024-08-21] MEDS: ALPRAZolam 0.25 MG TAB PO PRN (20:15)
[2024-08-21 20:16] LABS: Glucose,Whole Blood 250 mg/dL (70-110)
--- NOTE | 2024-08-21 22:06 | P.PN ---
Subjective Progress Note Date: 08/21/24 Principal diagnosis: Reason for follow-up is fever/pneumonia Patient is a 63-year-old female with a past medical history significant for diabetes mellitus reflux hypertension hyperlipidemia HI CVA TIA previous patient noted to have history of recurrent UTI recently discharged from this hospital after receiving treatment for UTI cystitis has been brought back to the hospital concerning for generalized weakness along with mental status changes and low oxygen patient did have a low-grade fever chest x-ray with multifocal airspace opacity probably this consultation. On today's evaluation that is 08/21/2024,the patient remains to be afebrile, patient is on 2 L nasal cannula supplemental oxygen and denies any shortness of breath no chest pain or cough.Patient denies having any nausea or vomiting, no abdominal pain and did have a bowel movement. Patient did have a creatinine 0.55 no CBC was done today blood culture has been negative Objective - Vital Signs Vital signs: Vital Signs Temp 98 F 08/21/24 08:00 Pulse 72 08/21/24 12:07 Resp 16 08/21/24 12:00 BP 97/61 08/21/24 12:00 Pulse Ox 98 08/21/24 12:00 FiO2 40 08/07/24 08:11 Intake & Output 08/20/24 08/21/24 08/21/24 18:59 06:59 18:59 Intake Total 20 312.6 1210 Output Total 1850 1675 625 Balance -1830 -1362.4 585 Weight 70.6 kg 70.6 kg Intake: IV 20 10 10 Invasive Line 8 20 10 10 Intake, IV Titration 302.6 Amount Mvi, Adult No.4 with Vit 302.6 K 10 ml Trace (Conc-1Ml/ Dose) 1 ml In Amino Acid 5%-D20w+Lytes*E* 1,000 ml @ 68 mls/hr IV .BY DURATION MAGALY Rx#: [id number] Oral 1200 Output: Urine 1850 1675 625 Other: Voiding Method Indwelling Catheter Indwelling Catheter Indwelling Catheter # Voids 1 # Bowel Movements 1 - Exam GENERAL DESCRIPTION: Middle-age female lying in bed in no distress RESPIRATORY SYSTEM: Unlabored breathing , decreased breath sounds at bases HEART: S1 S2 regular rate and rhythm , ABDOMEN: Soft , no tenderness EXTREMITIES: Bilateral heel wounds are currently dressed - Labs CBC & Chem 7: 08/20/24 07:06 08/21/24 06:34 Labs: Abnormal Lab Results - Last 24 Hours (Table) 08/20/24 08/20/24 08/21/24 Range/Units 16:26 23:56 06:24 Carbon Dioxide (22-30) mmol/L Glucose (74-99) mg/dL POC Glucose (mg/dL) 157 H 228 H 226 H (70-110) mg/dL Calcium (8.4-10.2) mg/dL 08/21/24 08/21/24 Range/Units 06:34 11:30 Carbon Dioxide 31 H (22-30) mmol/L Glucose 205 H (74-99) mg/dL POC Glucose (mg/dL) 256 H (70-110) mg/dL Calcium 8.3 L (8.4-10.2) mg/dL Microbiology - Last 24 Hours (Table) 08/15/24 15:47 Blood Culture - Final Blood Assessment and Plan (1) Pneumonia Current Visit: Yes Status: Acute Code(s): J18.9 - PNEUMONIA, UNSPECIFIED ORG ANISM SNOMED Code(s): 899365060 (2) Sepsis Current Visit: Yes Status: Acute Code(s): A41.9 - SEPSIS, UNSPECIFIED ORGANISM SNOMED Code(s): 96338375 (3) Pressure ulcer, heel, right, unstageable Current Visit: No Status: Acute Code(s): L89.610 - PRESSURE ULCER OF RIGHT HEEL, UNSTAGEABLE SNOMED Code(s): 50571226484855378 Plan: 1patient presented to the hospital with sepsis in this patient who did have a fever tachycardia elevated white count meeting criteria for SIRS/sepsis with evidence of diffuse multifocal airspace opacities will need to cover for the resistant gram-negative with the likely pathogen as the patient was recently discharged from this facility and exposed to antibiotics patient completed course of antibiotic for pneumonia 2keep bilateral heel area of the pressure to prevent any worsening of the bilateral heel pressure ulcer 3patient did have resolution of her fever and patient white count is normalized and seems to be ileus is resolving 4patient is currently being treated with the Zosyn to continue and monitor clinical course closely Dictation was produced using [employer] dictation software. please excuse any grammatical, word or spelling errors. Time with Patient: Less than 30
[2024-08-21] MEDS: NYSTATIN 100,000 UNIT/ML SUSP 500,000 UNIT/5 ML CUP PO SCH (23:28)
[2024-08-22 00:18] LABS: Bilirubin,Urine Negative (Negative); Blood,Urine Negative (Negative); Color,Urine Colorless; Glucose,Urine (UA) 4+ (Negative); Ketones,Urine Negative (Negative); Leukocyte Esterase,Urine Negative (Negative); Nitrite,Urine Negative (Negative); PH, Urine 7.0 (5.0-8.0); Protein,Urine Negative (Negative); Specific Gravity,Urine 1.020 (1.001-1.035); Urobilinogen,Urine <2.0 mg/dL (<2.0)
[2024-08-22 01:01] LABS: Glucose,Whole Blood 292 mg/dL (70-110)
--- NOTE | 2024-08-22 02:18 | PN ---
PROGRESS NOTE DATE OF SERVICE: 08/21/2024 SUBJECTIVE: This is a 63-year-old woman, who was admitted with multiple complex medical issues including acute hypoxic respiratory failure secondary to pneumonia, also had multiple medical issues. The patient also had gastric ileus. Abdominal x-ray done yesterday showed some improvement. The patient is still on TPN. PAST MEDICAL HISTORY: Reviewed. REVIEW OF SYSTEMS: A 14-point review of systems negative except as mentioned earlier. CURRENT MEDICATIONS: Reviewed. PHYSICAL EXAMINATION: VITAL SIGNS: Pulse is 75, blood pressure n, respirations 16. HEENT: Conjunctivae normal. NECK: No JVD. CARDIOVASCULAR: S1 and S2. RESPIRATIONS: Breath sounds diminished at the bases. Few scattered rhonchi. ABDOMEN: Soft. NERVOUS SYSTEM: No focal deficits. LABORATORY DATA: Reviewed. ASSESSMENT: 1. Acute hypoxic respiratory failure secondary to pneumonia on presentation. 2. Gastric dilatation, possibly intestinal ileus with gastroparesis possibly. 3. Noncompliance of refusing decompression through NG tube previously. 4. Chrissy in the urine. 5. Hypotension. 6. Supraventricular tachycardia, on amiodarone. 7. Acute kidney injury. 8. Elevated troponin. 9. Hypertension. 10.Hyperlipidemia. 11.Diabetes type 2. 12.History of peripheral vascular disease. 13.Multiple complex medical issues. 14.FULL CODE. RECOMMENDATIONS: Recommend to continue current management and symptomatic treatment. Continue with a TPN. Monitor lytes closely. The patient is on amiodarone and fluconazole. EKG was repeated yesterday, which showed QTc of 436. We will continue the rest of medications. Monitor lytes. Repeat labs. Guarded prognosis. Further recommendations to follow. We will repeat UA to ensure normalcy. MMODL / IJN: [id number] / SARAH
[2024-08-22 06:03] LABS: Glucose,Whole Blood 308 mg/dL (70-110)
[2024-08-22 07:23] LABS: Basophils # (A) 0.04 10*3/uL (0.00-0.10); Basophils % (A) 0.5 %; Eosinophils # (A) 0.20 10*3/uL (0.04-0.35); Eosinophils % (A) 2.5 %; HCT 28.2 % (37.2-46.3); HGB 8.8 g/dL (12.0-15.0); Lymphocytes # (A) 1.15 10*3/uL (0.90-5.00); Lymphocytes % (A) 14.1 %; MCH 27.6 pg (27.0-32.0); MCHC 31.2 g/dL (32.0-37.0); MCV 88.4 fL (80.0-97.0); Monocytes # (A) 0.51 10*3/uL (0.20-1.00); Monocytes % (A) 6.3 %; Neutrophils # (A) 6.20 10*3/uL (1.80-7.70); Neutrophils % (A) 76.0 %; Platelet Count 309 10*3/uL (140-440); RBC 3.19 10*6/uL (4.10-5.20); RDW 15.9 % (11.5-14.5); WBC 8.15 10*3/uL (4.50-10.00)
[2024-08-22 07:38] LABS: ALT 9 U/L (4-34); AST 15 U/L (14-36); African American GFR (CKD) >90 (>60 ml/min/1.73 sqM); Albumin 2.6 g/dL (3.5-5.0); Alkaline Phosphatase 49 U/L (38-126); Anion Gap 9 mmol/L; Blood Urea Nitrogen 17 mg/dL (7-17); Calcium 8.3 mg/dL (8.4-10.2); Carbon Dioxide 25 mmol/L (22-30); Chloride 104 mmol/L (98-107); Glucose 288 mg/dL (74-99); Magnesium 2.0 mg/dL (1.6-2.3); Non-African American GFR(CKD) >90 (>60 ml/min/1.73 sqM); Potassium 4.5 mmol/L (3.5-5.1); Sodium 138 mmol/L (137-145); Total Protein 5.1 g/dL (6.3-8.2)
--- NOTE | 2024-08-22 08:14 | XR ---
EXAMINATION TYPE: XR chest 1V portable DATE OF EXAM: 08/22/2024 7:16 AM COMPARISON: Chest radiographs from 08/18/2024 CLINICAL INDICATION: Female, 63 years old with history of chf; [facility] TECHNIQUE: XR chest 1V portable Frontal view of the chest. FINDINGS: Lungs/Pleura: There is no evidence of pleural effusion, focal consolidation, or pneumothorax. Pulmonary vascularity: Unremarkable. Heart/mediastinum: Cardiomediastinal silhouette is unremarkable. Musculoskeletal: No acute osseous pathology. Stimulator leads project over the spine. Other findings: None Lines/Tubes: Right-sided PICC line with distal tip at the cavoatrial junction. IMPRESSION: No focal consolidation, no evidence for heart failure. [facility], , 08/22/2024 8:12 AM
--- NOTE | 2024-08-22 09:56 | P.PN ---
Subjective Progress Note Date: 08/22/24 Principal diagnosis: Ileus/gastroparesis Patient tolerating full liquids. Denies nausea or vomiting. Had a firm stool yesterday and loose stools this morning. She does feel slightly bloated. Objective - Vital Signs Vital signs: Vital Signs Temp 97.6 F 08/22/24 08:22 Pulse 80 08/22/24 08:22 Resp 18 08/22/24 08:22 BP 107/64 08/22/24 08:22 Pulse Ox 98 08/22/24 08:22 FiO2 40 08/07/24 08:11 Intake & Output 08/21/24 08/22/24 08/22/24 18:59 06:59 18:59 Intake Total 2801 1264 Output Total 1550 2200 Balance 1251 -936 Weight 70.6 kg 70.8 kg Intake: IV 20 1264 Amino Acid 5%-D20w+Lytes* 544 E* 1,000 ml @ 68 mls/hr IV .BY DURATION [facility] Rx#: [id number] Invasive Line 8 20 20 Lactated Ringers 1,000 ml 600 @ 75 mls/hr IV .[id number] [facility] Rx#:[id number] Piperacillin-Tazobactam 3 100 .375 gm In Sodium Chloride 0.9% 100 ml @ 25 mls/hr IVPB Q8HR [facility] Rx# :[id number] Intake, IV Titration 1011 Amount Mvi, Adult No.4 with Vit 1011 K 10 ml Trace (Conc-1Ml/ Dose) 1 ml In Amino Acid 5%-D20w+Lytes*E* 1,000 ml @ 68 mls/hr IV .BY DURATION [facility] Rx#: [id number] Oral 1770 Output: Urine 1550 2200 Other: Voiding Method Indwelling Catheter Indwelling Catheter # Bowel Movements 1 - Exam Abdomen: Soft, mild distention, nontender - Labs CBC & Chem 7: 08/22/24 05:35 08/22/24 05:35 Labs: Abnormal Lab Results - Last 24 Hours (Table) 08/21/24 08/21/24 08/21/24 Range/Units 11:30 18:06 20:14 RBC (4.10-5.20) 10*6/uL Hgb (12.0-15.0) g/dL Hct (37.2-46.3) % MCHC (32.0-37.0) g/dL Immature Gran # (0.00-0.04) 10*3/uL Glucose (74-99) mg/dL POC Glucose (mg/dL) 256 H 259 H 250 H (70-110) mg/dL Calcium (8.4-10.2) mg/dL Total Protein (6.3-8.2) g/dL Albumin (3.5-5.0) g/dL Urine Glucose (UA) (Negative) 08/21/24 08/22/24 08/22/24 Range/Units 23:31 00:57 05:35 RBC (4.10-5.20) 10*6/uL Hgb (12.0-15.0) g/dL Hct (37.2-46.3) % MCHC (32.0-37.0) g/dL Immature Gran # (0.00-0.04) 10*3/uL Glucose 288 H (74-99) mg/dL POC Glucose (mg/dL) 292 H (70-110) mg/dL Calcium 8.3 L (8.4-10.2) mg/dL Total Protein 5.1 L (6.3-8.2) g/dL Albumin 2.6 L (3.5-5.0) g/dL Urine Glucose (UA) 4+ H (Negative) 08/22/24 08/22/24 Range/Units 05:35 06:00 RBC 3.19 L (4.10-5.20) 10*6/uL Hgb 8.8 L (12.0-15.0) g/dL Hct 28.2 L (37.2-46.3) % MCHC 31.2 L (32.0-37.0) g/dL Immature Gran # 0.05 H (0.00-0.04) 10*3/uL Glucose (74-99) mg/dL POC Glucose (mg/dL) 308 H (70-110) mg/dL Calcium (8.4-10.2) mg/dL Total Protein (6.3-8.2) g/dL Albumin (3.5-5.0) g/dL Urine Glucose (UA) (Negative) Assessment and Plan (1) Ileus Narrative/Plan: Patient with ileus and gastroparesis. Patient back on full liquids. Bit more bloated this morning. Denies nausea. Instructed the patient to minimize oral intake. Continue increasing activity as tolerated. Current Visit: Yes Status: Acute Code(s): K56.7 - ILEUS, UNSPECIFIED SNOMED Code(s): 662867488
[2024-08-22 11:44] LABS: Glucose,Whole Blood 283 mg/dL (70-110)
--- NOTE | 2024-08-22 13:41 | PN ---
PROGRESS NOTE DATE OF SERVICE: 08/22/2024 SUBJECTIVE: This is a 63-year-old woman, who initially admitted with multiple complex medical issues including pneumonia, had also developed intestinal ileus. At this time, the patient is having some bowel movements at this time. Surgery is following the patient closely. TPN has been initiated because of concerns of malnutrition. The patient is started on full liquid diet by Surgery at this time. PAST MEDICAL HISTORY: Reviewed. REVIEW OF SYSTEMS: Fourteen-point review of systems negative, except as mentioned earlier. CURRENT MEDICATIONS: Reviewed. PHYSICAL EXAMINATION: VITAL SIGNS: Pulse is 80, blood pressure 106/62, respirations 18. HEENT: Conjunctivae normal. CARDIOVASCULAR: S1 and S2. RESPIRATIONS: A few scattered rhonchi. ABDOMEN: Soft. NERVOUS SYSTEM: Nonfocal LABS: Labs are noted. Accu-Cheks noted. ASSESSMENT: 1. Acute hypoxic respiratory failure, secondary to pneumonia on presentation. 2. Gastric dilatation, possibly intestinal ileus with gastroparesis possibly. 3. Noncompliance and refusing decompression through NG tube previously. 4. Chrissy in the urine. 5. Hypertension. 6. Supraventricular tachycardia, on amiodarone. 7. Acute kidney injury. 8. Elevated troponin. 9. Hypertension. 10.Hyperlipidemia. 11.Diabetes type 2 with hyperglycemia. 12.History of peripheral vascular disease. 13.Multiple complex medical issues. 14.FULL CODE. RECOMMENDATIONS: Recommended to continue the current medications and continue symptomatic treatment. Otherwise at this time, I would recommend continue with the insulin scale. I would also recommend small dose of Lantus and adjust the dosing accordingly because of the TPN. Guarded prognosis because of multiple complex medical issues. Diet per surgery. Further recommendations to follow. MMODL / IJN: [id number] /
[2024-08-22] MEDS: INSULIN GLARGINE (LANTUS) 100 UNIT/ML SYR SQ SCH (14:41)
--- NOTE | 2024-08-22 16:07 | P.PN ---
Subjective Progress Note Date: 08/22/24 Principal diagnosis: Reason for follow-up is fever/pneumonia Patient is a 63-year-old female with a past medical history significant for diabetes mellitus reflux hypertension hyperlipidemia [place] CVA TIA previous patient noted to have history of recurrent UTI recently discharged from this hospital after receiving treatment for UTI cystitis has been brought back to the hospital concerning for generalized weakness along with mental status changes and low oxygen patient did have a low-grade fever chest x-ray with multifocal airspace opacity probably this consultation. On today's evaluation that is 08/22/2024, the patient continues to be afebrile, the patient is on 2 L nasal oxygen and breathing comfortably, the Pt denies having any chest pain or cough, the patient denies having any abdominal pain no vomiting and is having bowel movement. Patient white count is 8.15, creatinine 0.57 blood culture repeat has been negative so far Objective - Vital Signs Vital signs: Vital Signs Temp 97.6 F 08/22/24 08:22 Pulse 76 08/22/24 11:50 Resp 16 08/22/24 11:50 BP 91/52 08/22/24 11:50 Pulse Ox 98 08/22/24 11:50 FiO2 40 08/07/24 08:11 Intake & Output 08/21/24 08/22/24 08/22/24 18:59 06:59 18:59 Intake Total 2801 2264 20 Output Total 1550 2200 Balance 1251 64 20 Weight 70.6 kg 70.8 kg Intake: IV 20 1264 20 Amino Acid 5%-D20w+Lytes* 544 E* 1,000 ml @ 68 mls/hr IV .BY DURATION [facility] Rx#: [id number] Invasive Line 8 20 20 20 Lactated Ringers 1,000 ml 600 @ 75 mls/hr IV .[id number] [facility] Rx#:[id number] Piperacillin-Tazobactam 3 100 .375 gm In Sodium Chloride 0.9% 100 ml @ 25 mls/hr IVPB Q8HR [facility] Rx# :[id number] Intake, IV Titration 1011 1000 Amount Amino Acid 5%-D20w+Lytes* 1000 E* 1,000 ml @ 68 mls/hr IV .BY DURATION [facility] Rx#: [id number] Mvi, Adult No.4 with Vit 1011 K 10 ml Trace (Conc-1Ml/ Dose) 1 ml In Amino Acid 5%-D20w+Lytes*E* 1,000 ml @ 68 mls/hr IV .BY DURATION [facility] Rx#: [id number] Oral 1770 Output: Urine 1550 2200 Other: Voiding Method Indwelling Catheter Indwelling Catheter Indwelling Catheter # Bowel Movements 1 - Exam GENERAL DESCRIPTION: Middle-age female lying in bed in no distress RESPIRATORY SYSTEM: Unlabored breathing , decreased breath sounds at bases HEART: S1 S2 regular rate and rhythm , ABDOMEN: Soft , no tenderness EXTREMITIES: Bilateral heel wounds are currently dressed - Labs CBC & Chem 7: 08/22/24 05:35 08/22/24 05:35 Labs: Abnormal Lab Results - Last 24 Hours (Table) 08/21/24 08/21/24 08/21/24 Range/Units 18:06 20:14 23:31 RBC (4.10-5.20) 10*6/uL Hgb (12.0-15.0) g/dL Hct (37.2-46.3) % MCHC (32.0-37.0) g/dL Immature Gran # (0.00-0.04) 10*3/uL Glucose (74-99) mg/dL POC Glucose (mg/dL) 259 H 250 H (70-110) mg/dL Calcium (8.4-10.2) mg/dL Total Protein (6.3-8.2) g/dL Albumin (3.5-5.0) g/dL Urine Glucose (UA) 4+ H (Negative) 08/22/24 08/22/24 08/22/24 Range/Units 00:57 05:35 05:35 RBC 3.19 L (4.10-5.20) 10*6/uL Hgb 8.8 L (12.0-15.0) g/dL Hct 28.2 L (37.2-46.3) % MCHC 31.2 L (32.0-37.0) g/dL Immature Gran # 0.05 H (0.00-0.04) 10*3/uL Glucose 288 H (74-99) mg/dL POC Glucose (mg/dL) 292 H (70-110) mg/dL Calcium 8.3 L (8.4-10.2) mg/dL Total Protein 5.1 L (6.3-8.2) g/dL Albumin 2.6 L (3.5-5.0) g/dL Urine Glucose (UA) (Negative) 08/22/24 08/22/24 Range/Units 06:00 11:42 RBC (4.10-5.20) 10*6/uL Hgb (12.0-15.0) g/dL Hct (37.2-46.3) % MCHC (32.0-37.0) g/dL Immature Gran # (0.00-0.04) 10*3/uL Glucose (74-99) mg/dL POC Glucose (mg/dL) 308 H 283 H (70-110) mg/dL Calcium (8.4-10.2) mg/dL Total Protein (6.3-8.2) g/dL Albumin (3.5-5.0) g/dL Urine Glucose (UA) (Negative) Assessment and Plan (1) Pneumonia Current Visit: Yes Status: Acute Code(s): J18.9 - PNEUMONIA, UNSPECIFIED ORGANISM SNOMED Code(s): 615412447 (2) Sepsis Current Visit: Yes Status: Acute Code(s): A41.9 - SEPSIS, UNSPECIFIED ORGANISM SNOMED Code(s): 79918071 (3) Pressure ulcer, heel, right, unstageable Current Visit: No Status: Acute Code(s): L89.610 - PRESSURE ULCER OF RIGHT HEEL, UNSTAGEABLE SNOMED Code(s): 99203665914894608 Plan: 1patient presented to the hospital with sepsis in this patient who did have a fever tachycardia elevated white count meeting criteria for SIRS/sepsis with evidence of diffuse multifocal airspace opacities will need to cover for the resistant gram-negative with the likely pathogen as the patient was recently discharged from this facility and exposed to antibiotics patient completed course of antibiotic for pneumonia 2keep bilateral heel area of the pressure to prevent any worsening of the bilateral heel pressure ulcer 3patient did have resolution of her fever and patient white count is normalized and ileus is resolving 4patient will be treated with Zosyn and monitor clinical course closely Dictation was produced using [employer] software. please excuse any grammatical, word or spelling errors. Time with Patient: Less than 30
[2024-08-22 16:28] LABS: Glucose,Whole Blood 282 mg/dL (70-110)
[2024-08-22 20:22] LABS: Glucose,Whole Blood 258 mg/dL (70-110)
[2024-08-23 06:13] LABS: Glucose,Whole Blood 291 mg/dL (70-110)
[2024-08-23 06:24] LABS: Basophils # (A) 0.03 10*3/uL (0.00-0.10); Basophils % (A) 0.4 %; Eosinophils # (A) 0.21 10*3/uL (0.04-0.35); Eosinophils % (A) 2.8 %; HCT 27.1 % (37.2-46.3); HGB 8.3 g/dL (12.0-15.0); Lymphocytes # (A) 1.31 10*3/uL (0.90-5.00); Lymphocytes % (A) 17.5 %; MCH 27.0 pg (27.0-32.0); MCHC 30.6 g/dL (32.0-37.0); MCV 88.3 fL (80.0-97.0); Monocytes # (A) 0.53 10*3/uL (0.20-1.00); Monocytes % (A) 7.1 %; Neutrophils # (A) 5.37 10*3/uL (1.80-7.70); Neutrophils % (A) 71.8 %; Platelet Count 298 10*3/uL (140-440); RBC 3.07 10*6/uL (4.10-5.20); RDW 16.8 % (11.5-14.5); WBC 7.48 10*3/uL (4.50-10.00)
[2024-08-23 06:57] LABS: African American GFR (CKD) >90 (>60 ml/min/1.73 sqM); Anion Gap 10 mmol/L; Blood Urea Nitrogen 17 mg/dL (7-17); Calcium 8.7 mg/dL (8.4-10.2); Carbon Dioxide 25 mmol/L (22-30); Chloride 101 mmol/L (98-107); Glucose 233 mg/dL (74-99); Magnesium 2.0 mg/dL (1.6-2.3); Non-African American GFR(CKD) >90 (>60 ml/min/1.73 sqM); Potassium 4.5 mmol/L (3.5-5.1); Sodium 136 mmol/L (137-145)
--- NOTE | 2024-08-23 09:59 | P.PN ---
Subjective Progress Note Date: 08/23/24 Principal diagnosis: Ileus/gastroparesis Patient says she did have episodes of vomiting last night. Admits to feeling bloated now. Said she had some apple juice come back up when she laid back yesterday. Denies pain. No bowel function overnight. Objective - Vital Signs Vital signs: Vital Signs Temp 98 F 08/23/24 08:00 Pulse 74 08/23/24 08:00 Resp 16 08/23/24 08:00 BP 141/77 08/23/24 08:00 Pulse Ox 97 08/23/24 08:00 FiO2 40 08/07/24 08:11 Intake & Output 08/22/24 08/23/24 08/23/24 18:59 06:59 18:59 Intake Total 2274 20 Output Total 1500 1950 Balance 774 -1930 Weight 70.8 kg Intake: IV 20 20 Invasive Line 8 20 20 Intake, IV Titration 1011 Amount Mvi, Adult No.4 with Vit 1011 K 10 ml Trace (Conc-1Ml/ Dose) 1 ml In Amino Acid 5%-D20w+Lytes*E* 1,000 ml @ 68 mls/hr IV .BY DURATION [facility] Rx#: [id number] Oral 1243 Output: Urine 1500 1950 Other: Voiding Method Indwelling Catheter Indwelling Catheter # Bowel Movements 1 - Exam Abdomen: Soft, upper abdominal distention present, minimal tenderness - Labs CBC & Chem 7: 08/23/24 05:31 08/23/24 05:31 Labs: Abnormal Lab Results - Last 24 Hours (Table) 08/22/24 08/22/24 08/22/24 Range/Units 11:42 16:27 20:20 RBC (4.10-5.20) 10*6/uL Hgb (12.0-15.0) g/dL Hct (37.2-46.3) % MCHC (32.0-37.0) g/dL Sodium (137-145) mmol/L Creatinine (0.52-1.04) mg/dL Glucose (74-99) mg/dL POC Glucose (mg/dL) 283 H 282 H 258 H (70-110) mg/dL 08/23/24 08/23/24 08/23/24 Range/Units 05:31 05:31 06:11 RBC 3.07 L (4.10-5.20) 10*6/uL Hgb 8.3 L (12.0-15.0) g/dL Hct 27.1 L (37.2-46.3) % MCHC 30.6 L (32.0-37.0) g/dL Sodium 136 L (137-145) mmol/L Creatinine 0.49 L (0.52-1.04) mg/dL Glucose 233 H (74-99) mg/dL POC Glucose (mg/dL) 291 H (70-110) mg/dL Assessment and Plan (1) Ileus Narrative/Plan: Patient with ongoing ileus/gastroparesis. Patient had been maintained on a full liquid diet with TPN. Really had not been taking too much in orally. Unfortunately patient's exam is worse today and she did have episodes of vomi ting. Still declines NG tube placement. We agreed to order abdominal x-rays to see how distended her stomach and bowel loops appear. May reconsider based on that she says. Current Visit: Yes Status: Acute Code(s): K56.7 - ILEUS, UNSPECIFIED SNOMED Code(s): 708930602
--- NOTE | 2024-08-23 10:37 | XR ---
EXAMINATION TYPE: XR abdomen 2V DATE OF EXAM: 08/23/2024 10:33 AM COMPARISON: Prior plain film CLINICAL INDICATION: Female, 63 years old with history of Distention; [facility] TECHNIQUE: Two views of the abdomen were obtained. FINDINGS: Moderate amount stool throughout the colon. The bowel gas pattern is nonspecific without d ilated loops of small or large bowel. . Fecal material and gas are demonstrated throughout the colon and rectum. There is no evidence for organomegaly or pneumoperitoneum. No evidence of fracture. Mult ilevel degeneration changes spine with osteophyte formation and disc space narrowing. Mild degenerati on changes of the hips with osteophyte information joint space narrowing. No abnormal calcificati ons are present. Fixation of the spine appears intact. IMPRESSION: Gaseous distention of the gastric lumen and bowel. Correlate for ileus. [facility], , 08/23/2024 10:34 AM
[2024-08-23 11:24] LABS: Glucose,Whole Blood 297 mg/dL (70-110)
--- NOTE | 2024-08-23 15:39 | P.PN ---
Subjective Progress Note Date: 08/23/24 63-year-old female with a past medical history significant for diabetes mellitus reflux hypertension hyperlipidemia [place] CVA TIA previous patient noted to have history of recurrent UTI recently discharged from this hospital after receiving treatment for UTI cystitis has been brought back to the hospital concerning for generalized weakness along with mental status changes and low oxygen patient did have a low-grade fever chest x-ray with multifocal airspace opacity probably this consultation. 08/08/2024 --Patient is seen and evaluated in ICU; the patient continues to be afebrile, the patient is on 3 L nasal cannula oxygen and breathing comfortably, the Pt denies having any chest pain or worsening cough, the patient denies having any abdominal pain no vomiting or any diarrhea has been complaining about her pain medication being inadequate. Blood work reveals WBC of 10, hemoglobin of 8.5 and platelet count of 294, sodium 135, potassium 3.9, BUN/creatinine of 11/0.71 -- urine for Legionella antigen negative blood cultures so far negative sputum not collected - chest x-ray cardiomegaly pulm vascular congestion bilateral effusion progressive in nature 08/09/2024 Patient is seen and evaluated in the intensive care unit yesterday. Is resting comfortably in bed. Currently saturating at 98% on nasal cannula, 3 L. No acute distress. She is awake and alert. Blood work reveals white count 10.9, hemoglobin 8.9, hematocrit 27.6, platelet count is normal. Sodium 136, potassium 4.3, chlorides 105, CO2 26, BUN 10, and creatinine 0.58. Calcium is 7.4. Microbiology is currently negative. No chest x-ray today. Patient has been transferred out of ICU; cardiology recommending to decrease amiodarone to 200 mg daily; patient remains on Lipitor, Plavix and cilostazol; fenofibrate was discontinued; cardiology recommending Farxiga 10 mg daily and Aldactone 12.5 mg 08/10/2024 Patient is seen and evaluated and discussed with nursing staff; received IM Zyprexa for agitation and anxiety last; patient is sleepy but arousable - Vital signs reviewed afebrile patient is currently on 3 L goal oxygen admission breathing comfortably Patient white count is 8.08, creatinine 0.65 blood culture negative patient presented to the hospital with sepsis in this patient who did have a fever tachycardia elevated white count meeting criteria for SIRS/sepsis with evidence of diffuse multifocal airspace opacities will need to cover for the resistant gram-negative with the likely pathogen as the patient was recently discharged from this facility and exposed to antibiotics blood culture remains to be negative sputum has already been collected, urine for Legionella antigen negative keep bilateral heel area of the pressure to prevent any worsening of the bilateral heel pressure ulcer -patient did have resolution of the fever and white count down normalized on Zosyn will consider short course of oral antibiotic on discharge 08/11 Patient still remains mildly tachypneic but her breathing is improving slowly and gradually. Chest x-ray showing improving consolidation and improving fluid overload. Patient remains on IV Lasix with negative fluid balance Her abdomen is mildly distended, she says she has 1 bowel movement which is loose. Abdominal x-ray showing ileus. I talked to the patient about placement and she agreed to talk to the social sciences chair for possible rehab placement upon discharge whenever ready In the meantime she remains on IV Zosyn and Levaquin. Also she is on IV Lasix 20 mg twice daily. Continued with Aldactone. 08/12 Patient lying in bed with no distress No significant dyspnea at rest, she is on 2 L oxygen She still have evidence of fluid overload she is still kept on IV Lasix 20 mg twice daily. She has almost several liters of urine output over the last 24 hours. Possible discharge in 24 to 48 hours if keeps improving 08/13 Patient is improving significantly and his breathing is improved She is kept on IV Lasix and she was making 2 to 3 L of urine output this morning, because of the benefits and significant lower in her fluid overload we will going to keep her for another 24 hours with IV Lasix No labs today, rechecking labs in the morning If she keeps improving no other new complaint may be considered for discharge 08/14 Patient still has bilateral leg swelling She is making good amount of urine output about 1 to 2 L every shift She does not want to go to rehab although she is severely weak she is adamant to go home with home care after several times we discussed with her. She has Ragland catheter in place However in the afternoon patient started develop more abdominal distention, abdominal x-ray requested as patient vomited once showing significant gaseous distention of the stomach, NG tube recommended which is ordered, Make the p atient n.p.o., surgery team also consulted Discussed with the staff of day and manager of operations. Continue close monitoring 08/15 Patient developed abdominal distention and vomiting and abdominal x-ray showing distended gas filled stomach and ileus NG tube was placed which helped for decompression surgical consult was obtained who recommended Reglan and lactulose which were added Also patient continued on IV Lasix and diuresing and continued on IV antibiotics with Zosyn WBC 12.2, hemoglobin 8.9 Blood pressure is soft low side up with systolic 80s to 90s Patient remains sleepy in bed still with bilateral leg edema Ragland catheter in place, NG tube in place Patient eventually does not want to go to subacute rehab with risk-benefit explained to her 08/16 Patient NG tube was removed today, abdomen less tender and distended, She still has bilateral leg swelling but they are improving Blood pressure on the soft side therefore we will switch morphine to IV Dilaudid Also Levaquin was discontinued, currently patient kept on Zosyn 08/17 Patient awake alert Leg edema significantly improved Patient still have persistent dilatation of the stomach, patient refused NG tube for decompression after risk-benefit explained Keep the patient n.p.o. Gastric dilatation seen with the KUB and the CT of the abdomen pelvis from today Discussed the case with surgery team Patient blood pressure on the low side received small bolus of IV fluid Recommend to order PICC line and nutrition consult for TPN tomorrow 08/23. Dr. Watkins took over care. Patient was complaining of abdominal pain this morning, abdominal was distended, had an episode of nausea and vomiting last night. Patient is currently on full liquid diet with TPN. Surgery evaluated, ordered x-ray abdominal REVIEW OF SYSTEMS: CONSTITUTIONAL: No fever, no malaise,. CARDIOVASCULAR: No chest pain, no palpitations, no syncope. PULMONARY: No shortness of breath, no cough, GASTROINTESTINAL: Mentioned above NEUROLOGICAL: No headaches, no weakness, PHYSICAL EXAMINATION: GENERAL: The patient is alert and oriented x3, ill looking HEENT: Pupils are round and equally reacting to light. EOMI. No scleral icterus. No conjunctival pallor. Normocephalic, atraumatic. No pharyngeal erythema. No thyromegaly. CARDIOVASCULAR: S1 and S2 present. No murmurs, rubs, or gallops. PULMONARY: Chest is clear to auscultation, no wheezing or crackles. ABDOMEN: Distended, sluggish bowel sounds. No palpable organomegaly. MUSCULOSKELETAL: No joint swelling or deformity. EXTREMITIES: No cyanosis, clubbing, or pedal edema. NEUROLOGICAL: Gross neurological examination did not reveal any focal deficits. SKIN: No rashes. Assessment and plan Acute hypoxemic respiratory failure, Resolving ileus, gastric distention post NG tube insertion for gastric de compression and the tube was removed Hypotension, consider sepsis/septic shock Acute febrile illness Acute leukocytosis Urinary retention, abdominal/pelvis CT from previous admission remarkable for b ilateral hydronephrosis, right greater than left, bladder wall thickening, and small bowel ileus Acute kidney injury, creatinine 1.36 Elevated troponins History of hypertension History of hyperlipidemia Diabetes mellitus type 2, uncontrolled History of coronary artery disease with previous PCI/stents History of peripheral vascular disease History of left foot transmetatarsal amputation 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 Continue same treatment. Continue with symptomatic treatment. Resume home medication. Monitor labs and vitals. DVT and GI prophylaxis. Further recommendations as per clinical course of the patient Dictation was produced using [employer] dictation software. please excuse any grammatical, word or spelling errors. Objective - Vital Signs Vital signs: Vital Signs Temp 98 F 08/23/24 08:00 Pulse 72 08/23/24 11:17 Resp 16 08/23/24 11:17 BP 100/49 08/23/24 11:17 Pulse Ox 98 08/23/24 11:17 FiO2 40 08/07/24 08:11 Intake & Output 08/22/24 08/23/24 08/23/24 18:59 06:59 18:59 Intake Total 2274 20 20 Output Total 1500 1950 2100 Balance 774 -0 -2079 Weight 70.8 kg Intake: IV 20 20 20 Invasive Line 8 20 20 20 Intake, IV Titration 1011 Amount Mvi, Adult No.4 with Vit 1011 K 10 ml Trace (Conc-1Ml/ Dose) 1 ml In Amino Acid 5%-D20w+Lytes*E* 1,000 ml @ 68 mls/hr IV .BY DURATION [facility] Rx#: [id number] Oral 1243 Output: Urine 1500 1950 2100 Other: Voiding Method Indwelling Catheter Indwelling Catheter Indwelling Catheter # Bowel Movements 1 2 - Labs CBC & Chem 7: 08/23/24 05:31 08/23/24 05:31 Labs: Abnormal Lab Results - Last 24 Hours (Table) 08/22/24 08/22/24 08/23/24 Range/Units 16:27 20:20 05:31 RBC (4.10-5.20) 10*6/uL Hgb (12.0-15.0) g/dL Hct (37.2-46.3) % MCHC (32.0-37.0) g/dL Sodium 136 L (137-145) mmol/L Creatinine 0.49 L (0.52-1.04) mg/dL Glucose 233 H (74-99) mg/dL POC Glucose (mg/dL) 282 H 258 H (70-110) mg/dL 08/23/24 08/23/24 08/23/24 Range/Units 05:31 06:11 11:20 RBC 3.07 L (4.10-5.20) 10*6/uL Hgb 8.3 L (12.0-15.0) g/dL Hct 27.1 L (37.2-46.3) % MCHC 30.6 L (32.0-37.0) g/dL Sodium (137-145) mmol/L Creatinine (0.52-1.04) mg/dL Glucose (74-99) mg/dL POC Glucose (mg/dL) 291 H 297 H (70-110) mg/dL
[2024-08-23 16:17] LABS: Glucose,Whole Blood 337 mg/dL (70-110)
--- NOTE | 2024-08-23 16:27 | P.PN ---
Subjective Progress Note Date: 08/23/24 Principal diagnosis: Reason for follow-up is fever/pneumonia Patient is a 63-year-old female with a past medical history significant for diabetes mellitus reflux hypertension hyperlipidemia [place] CVA TIA previous patient noted to have history of recurrent UTI recently discharged from this hospital after receiving treatment for UTI cystitis has been brought back to the hospital concerning for generalized weakness along with mental status changes and low oxygen patient did have a low-grade fever chest x-ray with multifocal airspace opacity probably this consultation. On today's evaluation that is 08/24/2023, patient did have a temperature of 98 F this morning and patient is breathing comfortably currently on a 2 L nasal oxygen patient noted to be slightly sleepy more abdominal distention reported by the at the bedside no vomiting or any further bowel movement. Patient white count 7.48, creatinine 0.49, abdominal x-ray gaseous distention of the gastric lumen and bowel correlate for ileus Objective - Vital Signs Vital signs: Vital Signs Temp 98 F 08/23/24 08:00 Pulse 72 08/23/24 11:17 Resp 16 08/23/24 11:17 BP 100/49 08/23/24 11:17 Pulse Ox 98 08/23/24 11:17 FiO2 40 08/07/24 08:11 Intake & Output 08/22/24 08/23/24 08/23/24 18:59 06:59 18:59 Intake Total 2274 20 20 Output Total 1500 1950 2100 Balance 044 1929 -2079 Weight 70.8 kg Intake: IV 20 20 20 Invasive Line 8 20 20 20 Intake, IV Titration 1011 Amount Mvi, Adult No.4 with Vit 1011 K 10 ml Trace (Conc-1Ml/ Dose) 1 ml In Amino Acid 5%-D20w+Lytes*E* 1,000 ml @ 68 mls/hr IV .BY DURATION [facility] Rx#: [id number] Oral 1243 Output: Urine 1500 1950 2100 Other: Voiding Method Indwelling Catheter Indwelling Catheter Indwelling Catheter # Bowel Movements 1 2 - Exam GENERAL DESCRIPTION: Middle-age female lying in bed in no distress RESPIRATORY SYSTEM: Unlabored breathing , decreased breath sounds at bases HEART: S1 S2 regular rate and rhythm , ABDOMEN: Soft , no tenderness EXTREMITIES: Bilateral heel wounds are currently dressed - Labs CBC & Chem 7: 08/23/24 05:31 08/23/24 05:31 Labs: Abnormal Lab Results - Last 24 Hours (Table) 08/22/24 08/22/24 08/23/24 Range/Units 16:27 20:20 05:31 RBC (4.10-5.20) 10*6/uL Hgb (12.0-15.0) g/dL Hct (37.2-46.3) % MCHC (32.0-37.0) g/dL Sodium 136 L (137-145) mmol/L Creatinine 0.49 L (0.52-1.04) mg/dL Glucose 233 H (74-99) mg/dL POC Glucose (mg/dL) 282 H 258 H (70-110) mg/dL 08/23/24 08/23/24 08/23/24 Range/Units 05:31 06:11 11:20 RBC 3.07 L (4.10-5.20) 10*6/uL Hgb 8.3 L (12.0-15.0) g/dL Hct 27.1 L (37.2-46.3) % MCHC 30.6 L (32.0-37.0) g/dL Sodium (137-145) mmol/L Creatinine (0.52-1.04) mg/dL Glucose (74-99) mg/dL POC Glucose (mg/dL) 291 H 297 H (70-110) mg/dL 08/23/24 Range/Units 16:15 RBC (4.10-5.20) 10*6/uL Hgb (12.0-15.0) g/dL Hct (37.2-46.3) % MCHC (32.0-37.0) g/dL Sodium (137-145) mmol/L Creatinine (0.52-1.04) mg/dL Glucose (74-99) mg/dL POC Glucose (mg/dL) 337 H (70-110) mg/dL Assessment and Plan (1) Pneumonia Current Visit: Yes Status: Acute Code(s): J18.9 - PNEUMONIA, UNSPECIFIED ORGANISM SNOMED Code(s): 280875586 (2) Sepsis Current Visit: Yes Status: Acute Code(s): A41.9 - SEPSIS, UNSPECIFIED ORGANISM SNOMED Code(s): 27105968 (3) Pressure ulcer, heel, right, unstageable Current Visit: No Status: Acute Code(s): L89.610 - PRESSURE ULCER OF RIGHT HEEL, UNSTAGEABLE SNOMED Code(s): 60481379473835093 Plan: 1patient presented to the hospital with sepsis in this patient who did have a fever tachycardia elevated white count meeting criteria for SIRS/sepsis with evidence of diffuse multifocal airspace opacities will need to cover for the resistant gram-negative with the likely pathogen as the patient was recently discharged from this facility and exposed to antibiotics patient completed course of antibiotic for pneumonia 2keep bilateral heel area of the pressure to prevent any worsening of the bilateral heel pressure ulcer 3patient did have resolution of her fever and patient white count is normalized 4patient seem to have persistent issues with ileus with more gaseous distention on the abdominal x-ray General Surgery is following the patient continue Zosyn Dictation was produced using MU[employer] dictation software. please excuse any grammatical, word or spelling errors. Time with Patient: Less than 30
[2024-08-23 20:17] LABS: Glucose,Whole Blood 198 mg/dL (70-110)
[2024-08-24 06:06] LABS: Glucose,Whole Blood 304 mg/dL (70-110)
[2024-08-24 08:09] LABS: African American GFR (CKD) >90 (>60 ml/min/1.73 sqM); Anion Gap 5 mmol/L; Blood Urea Nitrogen 18 mg/dL (7-17); Calcium 8.8 mg/dL (8.4-10.2); Carbon Dioxide 28 mmol/L (22-30); Chloride 101 mmol/L (98-107); Glucose 289 mg/dL (74-99); Magnesium 1.9 mg/dL (1.6-2.3); Non-African American GFR(CKD) >90 (>60 ml/min/1.73 sqM); Potassium 4.9 mmol/L (3.5-5.1); Sodium 134 mmol/L (137-145)
--- NOTE | 2024-08-24 10:20 | P.PN ---
Subjective Progress Note Date: 08/24/24 Principal diagnosis: Ileus/gastroparesis Patient says she feels better today. No nausea. She has not vomited. Small amount of flatus. Small amount of belching. Yesterday's x-rays showed gastric and what appears to represent right colonic distention. Patient refused NG tube again. Objective - Vital Signs Vital signs: Vital Signs Temp 98.3 F 08/24/24 04:00 Pulse 75 08/24/24 04:00 Resp 16 08/24/24 04:00 BP 102/56 08/24/24 04:00 Pulse Ox 95 08/24/24 04:00 FiO2 40 08/07/24 08:11 Intake & Output 08/23/24 08/24/24 08/24/24 18:59 06:59 18:59 Intake Total 20 20 Output Total 2750 2500 Balance -2730 -2480 Weight 69.1 kg Intake: IV 20 20 Invasive Line 8 20 20 Output: Urine 2750 2500 Other: Voiding Method Indwelling Catheter Indwelling Catheter # Bowel Movements 2 - Exam Abdomen: Soft, mild distention, improved from yesterday, nontender - Labs CBC & Chem 7: 08/23/24 05:31 08/24/24 06:52 Labs: Abnormal Lab Results - Last 24 Hours (Table) 08/23/24 08/23/24 08/23/24 Range/Units 11:20 16:15 20:16 Sodium (137-145) mmol/L BUN (7-17) mg/dL Glucose (74-99) mg/dL POC Glucose (mg/dL) 297 H 337 H 198 H (70-110) mg/dL 08/24/24 08/24/24 Range/Units 06:05 06:52 Sodium 134 L (137-145) mmol/L BUN 18 H (7-17) mg/dL Glucose 289 H (74-99) mg/dL POC Glucose (mg/dL) 304 H (70-110) mg/dL Assessment and Plan (1) Ileus Narrative/Plan: Patient's ileus slightly better today. Keep n.p.o. for now. Continue TPN. Patient and I agreed if vomiting started would proceed with NG tube placement. Current Visit: Yes Status: Acute Code(s): K56.7 - ILEUS, UNSPECIFIED SNOMED Code(s): 059166411
[2024-08-24] MEDS ORDERED: 1: MVI, ADULT NO.4 WITH VIT K 10 ML, TRACE (CONC-1ML/DOSE) 1 ML, SODIUM CHLORIDE 4MEQ/ML IV SCH (11:00)
[2024-08-24 11:34] LABS: Glucose,Whole Blood 198 mg/dL (70-110)
--- NOTE | 2024-08-24 14:05 | P.PN ---
Subjective Progress Note Date: 08/24/24 63-year-old female with a past medical history significant for diabetes mellitus reflux hypertension hyperlipidemia [place] CVA TIA previous patient noted to have history of recurrent UTI recently discharged from this hospital after receiving treatment for UTI cystitis has been brought back to the hospital concerning for generalized weakness along with mental status changes and low oxygen patient did have a low-grade fever chest x-ray with multifocal airspace opacity probably this consultation. 08/08/2024 --Patient is seen and evaluated in ICU; the patient continues to be afebrile, the patient is on 3 L nasal cannula oxygen and breathing comfortably, the Pt denies having any chest pain or worsening cough, the patient denies having any abdominal pain no vomiting or any diarrhea has been complaining about her pain medication being inadequate. Blood work reveals WBC of 10, hemoglobin of 8.5 and platelet count of 294, sodium 135, potassium 3.9, BUN/creatinine of 11/0.71 -- urine for Legionella antigen negative blood cultures so far negative sputum not collected - chest x-ray cardiomegaly pulm vascular congestion bilateral effusion progressive in nature 08/09/2024 Patient is seen and evaluated in the intensive care unit yesterday. Is resting comfortably in bed. Currently saturating at 98% on nasal cannula, 3 L. No acute distress. She is awake and alert. Blood work reveals white count 10.9, hemoglobin 8.9, hematocrit 27.6, platelet count is normal. Sodium 136, potassium 4.3, chlorides 105, CO2 26, BUN 10, and creatinine 0.58. Calcium is 7.4. Microbiology is currently negative. No chest x-ray today. Patient has been transferred out of ICU; cardiology recommending to decrease amiodarone to 200 mg daily; patient remains on Lipitor, Plavix and cilostazol; fenofibrate was discontinued; cardiology recommending Farxiga 10 mg daily and Aldactone 12.5 mg 08/10/2024 Patient is seen and evaluated and discussed with nursing staff; received IM Zyprexa for agitation and anxiety last; patient is sleepy but arousable - Vital signs reviewed afebrile patient is currently on 3 L goal oxygen admission breathing comfortably Patient white count is 8.08, creatinine 0.65 blood culture negative patient presented to the hospital with sepsis in this patient who did have a fever tachycardia elevated white count meeting criteria for SIRS/sepsis with evidence of diffuse multifocal airspace opacities will need to cover for the resistant gram-negative with the likely pathogen as the patient was recently discharged from this facility and exposed to antibiotics blood culture remains to be negative sputum has already been collected, urine for Legionella antigen negative keep bilateral heel area of the pressure to prevent any worsening of the bilateral heel pressure ulcer -patient did have resolution of the fever and white count down normalized on Zosyn will consider short course of oral antibiotic on discharge 08/11 Patient still remains mildly tachypneic but her breathing is improving slowly and gradually. Chest x-ray showing improving consolidation and improving fluid overload. Patient remains on IV Lasix with negative fluid balance Her abdomen is mildly distended, she says she has 1 bowel movement which is loose. Abdominal x-ray showing ileus. I talked to the patient about placement and she agreed to talk to the social welfare administrator for possible rehab placement upon discharge whenever ready In the meantime she remains on IV Zosyn and Levaquin. Also she is on IV Lasix 20 mg twice daily. Continued with Aldactone. 08/12 Patient lying in bed with no distress No significant dyspnea at rest, she is on 2 L oxygen She still have evidence of fluid overload she is still kept on IV Lasix 20 mg twice daily. She has almost several liters of urine output over the last 24 hours. Possible discharge in 24 to 48 hours if keeps improving 08/13 Patient is improving significantly and his breathing is improved She is kept on IV Lasix and she was making 2 to 3 L of urine output this morning, because of the benefits and significant lower in her fluid overload we will going to keep her for another 24 hours with IV Lasix No labs today, rechecking labs in the morning If she keeps improving no other new complaint may be considered for discharge 08/14 Patient still has bilateral leg swelling She is making good amount of urine output about 1 to 2 L every shift She does not want to go to rehab although she is severely weak she is adamant to go home with home care after several times we discussed with her. She has Ragland catheter in place However in the afternoon patient started develop more abdominal distention, abdominal x-ray requested as patient vomited once showing significant gaseous distention of the stomach, NG tube recommended which is ordered, Make the p atient n.p.o., surgery team also consulted Discussed with the staff of day and shift lab technician. Continue close monitoring 08/15 Patient developed abdominal distention and vomiting and abdominal x-ray showing distended gas filled stomach and ileus NG tube was placed which helped for decompression surgical consult was obtained who recommended Reglan and lactulose which were added Also patient continued on IV Lasix and diuresing and continued on IV antibiotics with Zosyn WBC 12.2, hemoglobin 8.9 Blood pressure is soft low side up with systolic 80s to 90s Patient remains sleepy in bed still with bilateral leg edema Ragland catheter in place, NG tube in place Patient eventually does not want to go to subacute rehab with risk-benefit explained to her 08/16 Patient NG tube was removed today, abdomen less tender and distended, She still has bilateral leg swelling but they are improving Blood pressure on the soft side therefore we will switch morphine to IV Dilaudid Also Levaquin was discontinued, currently patient kept on Zosyn 08/17 Patient awake alert Leg edema significantly improved Patient still have persistent dilatation of the stomach, patient refused NG tube for decompression after risk-benefit explained Keep the patient n.p.o. Gastric dilatation seen with the KUB and the CT of the abdomen pelvis from today Discussed the case with surgery team Patient blood pressure on the low side received small bolus of IV fluid Recommend to order PICC line and nutrition consult for TPN tomorrow 08/23. Dr. Watkins took over care. Patient was complaining of abdominal pain this morning, abdominal was distended, had an episode of nausea and vomiting last night. Patient is currently on full liquid diet with TPN. Surgery evaluated, ordered x-ray abdominal 08/24/2024 Patient evaluated in follow-up on the cardiac unit. NG tube remains out as patient has been passing gas and abdomen is softer today. She is continued on full liquid diet and TPN and has had continued episodes of nausea and vomiting overnight. Abdominal xray gaseous distention of the gastric lumen and bowel. Correlate for ileus. General surgery following. Most recent blood work reveals a white blood cell count of 7.48, he open 8.3. Her sodium level is 134 BUN of 18 creatinine of 0.56 blood glucose remains elevated 200-300. REVIEW OF SYSTEMS: CONSTITUTIONAL: No fever, no malaise,. CARDIOVASCULAR: No chest pain, no palpitations, no syncope. PULMONARY: No shortness of breath, no cough, GASTROINTESTINAL: Mentioned above NEUROLOGICAL: No headaches, no weakness, PHYSICAL EXAMINATION: GENERAL: The patient is alert and oriented x3, ill looking HEENT: Pupils are round and equally reacting to light. EOMI. No scleral icterus. No conjunctival pallor. Normocephalic, atraumatic. No pharyngeal erythema. No thyromegaly. CARDIOVASCULAR: S1 and S2 present. No murmurs, rubs, or gallops. PULMONARY: Chest is clear to auscultation, no wheezing or crackles. ABDOMEN: Distended, sluggish bowel sounds. No palpable organomegaly. MUSCULOSKELETAL: No joint swelling or deformity. EXTREMITIES: No cyanosis, clubbing, or pedal edema. NEUROLOGICAL: Gross neurological examination did not reveal any focal deficits. SKIN: No rashes. Assessment and plan Sepsis on admission from likely bilateral pneumonia; hospital acquired Recent admission for complicated UTI Acute hypoxemic respiratory failure, Resolving ileus, gastric distention post NG tube insertion for gastric decompression and the tube was removed Hypotension, consider sepsis/septic shock Bilateral heel pressure ulcer Urinary retention, abdominal/pelvis CT from previous admission remarkable for bilateral hydronephrosis, right greater than left, bladder wall thickening, and small bowel ileus Acute kidney injury from ATN resolved. Elevated troponins History of hypertension currently normotensive. History of hyperlipidemia Diabetes mellitus type 2, uncontrolled Chronic heart failure with reduced EF 35% felt to be an ischemic cardiomyopathy History of coronary artery disease with previous PCI/stents History of peripheral vascular disease with bilateral iliac and SFA stents History of left foot transmetatarsal amputation History of right 4th and 5th toe amputation on the right History of nondisplaced oblique fracture of the left greater trochanter Ongoing tobacco dependence Plan General surgery following for the ileus/gasseous distention NG tube to be kept out for now Continue symptomatic and supportive care; antiemetics Liquid diet and and continues on TPN ID following Patient remains on course of IV zosyn Continue Plavix, Lipitor Continue amiodarone Continue farxiga, aldactone, metoprolol and losartan Continue accuchecks ACHS and sliding scale insulin will increase lantus to 20 units BID for improved glycemic control. Cardiology recommending f.u with Dr Lock on outpatient basis for possible cardiac catheterization and evaluation of the decreased EF found this hospital stay. [facility] on discharge when medically stable The impression and plan of care has been dictated by Jenniffer Almeida, Nurse Practitioner as directed. Dr. Isaias MD I have performed a history and physical examination and medical decision making of this patient, discussed the same with the dictator, and agree with the dictators assessment and plan as written, documented as a scribe. Based on total visit time, I have performed more than 50% of this visit. Objective - Vital Signs Vital signs: Vital Signs Temp 98.3 F 08/24/24 04:00 Pulse 75 08/24/24 04:00 Resp 16 08/24/24 04:00 BP 102/56 08/24/24 04:00 Pulse Ox 95 08/24/24 04:00 FiO2 40 08/07/24 08:11 Intake & Output 08/23/24 08/24/24 08/24/24 18:59 06:59 18:59 Intake Total 20 20 Output Total 2750 2500 Balance -2730 -2480 Weight 69.1 kg Intake: IV 20 20 Invasive Line 8 20 20 Output: Urine 2750 2500 Other: Voiding Method Indwelling Catheter Indwelling Catheter # Bowel Movements 2 - Labs CBC & Chem 7: 08/23/24 05:31 08/24/24 06:52 Labs: Abnormal Lab Results - Last 24 Hours (Table) 08/23/24 08/23/24 08/23/24 Range/Units 11:20 16:15 20:16 Sodium (137-145) mmol/L BUN (7-17) mg/dL Glucose (74-99) mg/dL POC Glucose (mg/dL) 297 H 337 H 198 H (70-110) mg/dL 08/24/24 08/24/24 Range/Units 06:05 06:52 Sodium 134 L (137-145) mmol/L BUN 18 H (7-17) mg/dL Glucose 289 H (74-99) mg/dL POC Glucose (mg/dL) 304 H (70-110) mg/dL Assessment and Plan Time with Patient: Less than 30
[2024-08-24 16:39] LABS: Glucose,Whole Blood 148 mg/dL (70-110)
--- NOTE | 2024-08-24 16:59 | P.PN ---
Subjective Progress Note Date: 08/24/24 Principal diagnosis: Reason for follow-up is fever/pneumonia Patient is a 63-year-old female with a past medical history significant for diabetes mellitus reflux hypertension hyperlipidemia [place] CVA TIA previous patient noted to have history of recurrent UTI recently discharged from this hospital after receiving treatment for UTI cystitis has been brought back to the hospital concerning for generalized weakness along with mental status changes and low oxygen patient did have a low-grade fever chest x-ray with multifocal airspace opacity probably this consultation. On today's evaluation that is 08/24/2024, Patient is afebrile patient is currently on 2 L nasal cannula oxygen and breathing slightly comfortably, the patient did not have any nausea vomiting did have multiple bowel movements. Patient did have a creatinine 0.56 Objective - Vital Signs Vital signs: Vital Signs Temp 98.1 F 08/24/24 08:00 Pulse 79 08/24/24 11:18 Resp 16 08/24/24 11:18 BP 97/59 08/24/24 11:18 Pulse Ox 93 L 08/24/24 11:18 FiO2 40 08/07/24 08:11 Intake & Output 08/23/24 08/24/24 08/24/24 18:59 06:59 18:59 Intake Total 20 20 20 Output Total 2750 2500 1100 Balance -4475 -0542 -2363 Weight 69.1 kg Intake: IV 20 20 20 Invasive Line 8 20 20 20 Output: Urine 2750 2500 1100 Other: Voiding Method Indwelling Catheter Indwelling Catheter Indwelling Catheter # Bowel Movements 2 - Exam Middle-age female lying in bed in no distress Unlabored breathing Patient did have evidence of sacral pressure ulcer with necrotic tissue - Labs CBC & Chem 7: 08/23/24 05:31 08/24/24 06:52 Labs: Abnormal Lab Results - Last 24 Hours (Table) 08/23/24 08/24/24 08/24/24 Range/Units 20:16 06:05 06:52 Sodium 134 L (137-145) mmol/L BUN 18 H (7-17) mg/dL Glucose 289 H (74-99) mg/dL POC Glucose (mg/dL) 198 H 304 H (70-110) mg/dL 08/24/24 08/24/24 Range/Units 11:32 16:36 Sodium (137-145) mmol/L BUN (7-17) mg/dL Glucose (74-99) mg/dL POC Glucose (mg/dL) 198 H 148 H (70-110) mg/dL Assessment and Plan (1) Pneumonia Current Visit: Yes Status: Acute Code(s): J18.9 - PNEUMONIA, UNSPECIFIED ORGANISM SNOMED Code(s): 926248113 (2) Sepsis Current Visit: Yes Status: Acute Code(s): A41.9 - SEPSIS, UNSPECIFIED ORGANISM SNOMED Code(s): 31051905 (3) Pressure ulcer, heel, right, unstageable Current Visit: No Status: Acute Code(s): L89.610 - PRESSURE ULCER OF RIGHT HEEL, UNSTAGEABLE SNOMED Code(s): 62358442081372832 (4) Unstageable pressure ulcer of sacral region Current Visit: Yes Status: Acute Code(s): L89.150 - PRESSURE ULCER OF SACRAL REGION, UNSTAGEABLE SNOMED Code(s): 69445428951488624 Plan: 1patient presented to the hospital with sepsis in this patient who did have a fever tachycardia elevated white count meeting criteria for SIRS/sepsis with evidence of diffuse multifocal airspace opacities will need to cover for the resistant gram-negative with the likely pathogen as the patient was recently discharged from this facility and exposed to antibiotics patient completed course of antibiotic for pneumonia 2keep bilateral heel area of the pressure to prevent any worsening of the bilateral heel pressure ulcer 3patient did have resolution of her fever and patient white count is normalized 4patient has developed unstageable sacral pressure ulcer to the sacral area will need surgical debridement for now we will treat with the Medihoney followed by moist dressing change daily discussed with the nursing staff Dictation was produced using [employer] dictation software. please excuse any grammatical, word or spelling errors. Time with Patient: Less than 30
[2024-08-24 20:03] LABS: Glucose,Whole Blood 121 mg/dL (70-110)
[2024-08-24] MEDS: INSULIN GLARGINE (LANTUS) 100 UNIT/ML SYR SQ SCH (22:15)
[2024-08-24] MEDS: 1: MVI, ADULT NO.4 WITH VIT K 10 ML, TRACE (CONC-1ML/DOSE) 1 ML, SODIUM CHLORIDE 4MEQ/ML IV SCH (22:49)
[2024-08-25 06:01] LABS: Glucose,Whole Blood 270 mg/dL (70-110)
[2024-08-25 06:34] LABS: Basophils # (A) 0.03 10*3/uL (0.00-0.10); Basophils % (A) 0.4 %; Eosinophils # (A) 0.25 10*3/uL (0.04-0.35); Eosinophils % (A) 3.0 %; HCT 24.3 % (37.2-46.3); HGB 7.8 g/dL (12.0-15.0); Lymphocytes # (A) 1.12 10*3/uL (0.90-5.00); Lymphocytes % (A) 13.5 %; MCH 28.2 pg (27.0-32.0); MCHC 32.1 g/dL (32.0-37.0); MCV 87.7 fL (80.0-97.0); Monocytes # (A) 0.66 10*3/uL (0.20-1.00); Monocytes % (A) 8.0 %; Neutrophils # (A) 6.16 10*3/uL (1.80-7.70); Neutrophils % (A) 74.5 %; Platelet Count 292 10*3/uL (140-440); RBC 2.77 10*6/uL (4.10-5.20); RDW 17.2 % (11.5-14.5); WBC 8.27 10*3/uL (4.50-10.00)
[2024-08-25 06:49] LABS: African American GFR (CKD) >90 (>60 ml/min/1.73 sqM); Anion Gap 8 mmol/L; Blood Urea Nitrogen 18 mg/dL (7-17); Calcium 8.5 mg/dL (8.4-10.2); Carbon Dioxide 24 mmol/L (22-30); Chloride 102 mmol/L (98-107); Glucose 251 mg/dL (74-99); Magnesium 1.9 mg/dL (1.6-2.3); Non-African American GFR(CKD) >90 (>60 ml/min/1.73 sqM); Potassium 4.5 mmol/L (3.5-5.1); Sodium 134 mmol/L (137-145)
[2024-08-25 11:46] LABS: Glucose,Whole Blood 230 mg/dL (70-110)
[2024-08-25] MEDS: 1: MVI, ADULT NO.4 WITH VIT K 10 ML, TRACE (CONC-1ML/DOSE) 1 ML, SODIUM CHLORIDE 4MEQ/ML IV SCH (13:48)
--- NOTE | 2024-08-25 14:54 | P.PN ---
Subjective Progress Note Date: 08/25/24 The patient is resting comfortably in bed. She states she has had a large amount of flatus. She denies any nausea. She has no significant abdominal pain. She would like to try some the eat. On exam vital signs appear stable. Abdomen soft. Resolving ileus. Patient will try clear liquids. Objective - Vital Signs Vital signs: Vital Signs Temp 97.8 F 08/25/24 12:00 Pulse 63 08/25/24 12:00 Resp 16 08/25/24 12:00 BP 95/56 08/25/24 12:00 Pulse Ox 100 08/25/24 12:00 FiO2 40 08/07/24 08:11 Intake & Output 08/24/24 08/25/24 08/25/24 18:59 06:59 18:59 Intake Total 20 20 Output Total 1700 1850 800 Balance -1680 -1830 -800 Weight 71.6 kg 71.6 kg Intake: IV 20 20 Invasive Line 8 20 20 Output: Urine 1700 1850 800 Straight 1000 Other: Voiding Method Indwelling Catheter Indwelling Catheter Indwelling Catheter - Labs CBC & Chem 7: 08/25/24 05:39 08/25/24 05:39 Labs: Abnormal Lab Results - Last 24 Hours (Table) 08/24/24 08/24/24 08/25/24 Range/Units 16:36 20:02 05:39 RBC 2.77 L (4.10-5.20) 10*6/uL Hgb 7.8 L (12.0-15.0) g/dL Hct 24.3 L (37.2-46.3) % Immature Gran # 0.05 H (0.00-0.04) 10*3/uL Sodium (137-145) mmol/L BUN (7-17) mg/dL Glucose (74-99) mg/dL POC Glucose (mg/dL) 148 H 121 H (70-110) mg/dL Phosphorus (2.5-4.5) mg/dL 08/25/24 08/25/24 08/25/24 Range/Units 05:39 05:39 05:59 RBC (4.10-5.20) 10*6/uL Hgb (12.0-15.0) g/dL Hct (37.2-46.3) % Immature Gran # (0.00-0.04) 10*3/uL Sodium 134 L (137-145) mmol/L BUN 18 H (7-17) mg/dL Glucose 251 H (74-99) mg/dL POC Glucose (mg/dL) 270 H (70-110) mg/dL Phosphorus 4.7 H (2.5-4.5) mg/dL 08/25/24 Range/Units 11:45 RBC (4.10-5.20) 10*6/uL Hgb (12.0-15.0) g/dL Hct (37.2-46.3) % Immature Gran # (0.00-0.04) 10*3/uL Sodium (137-145) mmol/L BUN (7-17) mg/dL Glucose (74-99) mg/dL POC Glucose (mg/dL) 230 H (70-110) mg/dL Phosphorus (2.5-4.5) mg/dL
[2024-08-25 16:58] LABS: Glucose,Whole Blood 216 mg/dL (70-110)
--- NOTE | 2024-08-25 19:15 | P.PN ---
Subjective Progress Note Date: 08/25/24 63-year-old female with a past medical history significant for diabetes mellitus reflux hypertension hyperlipidemia [place] CVA TIA previous patient noted to have history of recurrent UTI recently discharged from this hospital after receiving treatment for UTI cystitis has been brought back to the hospital concerning for generalized weakness along with mental status changes and low oxygen patient did have a low-grade fever chest x-ray with multifocal airspace opacity probably this consultation. 08/08/2024 --Patient is seen and evaluated in ICU; the patient continues to be afebrile, the patient is on 3 L nasal cannula oxygen and breathing comfortably, the Pt denies having any chest pain or worsening cough, the patient denies having any abdominal pain no vomiting or any diarrhea has been complaining about her pain medication being inadequate. Blood work reveals WBC of 10, hemoglobin of 8.5 and platelet count of 294, sodium 135, potassium 3.9, BUN/creatinine of 11/0.71 -- urine for Legionella antigen negative blood cultures so far negative sputum not collected - chest x-ray cardiomegaly pulm vascular congestion bilateral effusion progressive in nature 08/09/2024 Patient is seen and evaluated in the intensive care unit yesterday. Is resting comfortably in bed. Currently saturating at 98% on nasal cannula, 3 L. No acute distress. She is awake and alert. Blood work reveals white count 10.9, hemoglobin 8.9, hematocrit 27.6, platelet count is normal. Sodium 136, potassium 4.3, chlorides 105, CO2 26, BUN 10, and creatinine 0.58. Calcium is 7.4. Microbiology is currently negative. No chest x-ray today. Patient has been transferred out of ICU; cardiology recommending to decrease amiodarone to 200 mg daily; patient remains on Lipitor, Plavix and cilostazol; fenofibrate was discontinued; cardiology recommending Farxiga 10 mg daily and Aldactone 12.5 mg 08/10/2024 Patient is seen and evaluated and discussed with nursing staff; received IM Zyprexa for agitation and anxiety last; patient is sleepy but arousable - Vital signs reviewed afebrile patient is currently on 3 L goal oxygen admission breathing comfortably Patient white count is 8.08, creatinine 0.65 blood culture negative patient presented to the hospital with sepsis in this patient who did have a f ever tachycardia elevated white count meeting criteria for SIRS/sepsis with evidence of diffuse multifocal airspace opacities will need to cover for the resistant gram-negative with the likely pathogen as the patient was recently discharged from this facility and exposed to antibiotics blood culture remains to be negative sputum has already been collected, urine for Legionella antigen negative keep bilateral heel area of the pressure to prevent any worsening of the bilateral heel pressure ulcer -patient did have resolution of the fever and white count down normalized on Zosyn will consider short course of oral antibiotic on discharge 08/11 Patient still remains mildly tachypneic but her breathing is improving slowly and gradually. Chest x-ray showing improving consolidation and improving fluid overload. Patient remains on IV Lasix with negative fluid balance Her abdomen is mildly distended, she says she has 1 bowel movement which is loose. Abdominal x-ray showing ileus. I talked to the patient about placement and she agreed to talk to the group social worker for possible rehab placement upon discharge whenever ready In the meantime she remains on IV Zosyn and Levaquin. Also she is on IV Lasix 20 mg twice daily. Continued with Aldactone. 08/12 Patient lying in bed with no distress No significant dyspnea at rest, she is on 2 L oxygen She still have evidence of fluid overload she is still kept on IV Lasix 20 mg twice daily. She has almost several liters of urine output over the last 24 hours. Possible discharge in 24 to 48 hours if keeps improving 08/13 Patient is improving significantly and his breathing is improved She is kept on IV Lasix and she was making 2 to 3 L of urine output this morning, because of the benefits and significant lower in her fluid overload we will going to keep her for another 24 hours with IV Lasix No labs today, rechecking labs in the morning If she keeps improving no other new complaint may be considered for discharge 08/14 Patient still has bilateral leg swelling She is making good amount of urine output about 1 to 2 L every shift She does not want to go to rehab although she is severely weak she is adamant to go home with home care after several times we discussed with her. She has Ragland catheter in place However in the afternoon patient started develop more abdominal distention, abdominal x-ray requested as patient vomited once showing significant gaseous distention of the stomach, NG tube recommended which is ordered, Make the patient n.p.o., surgery team also consulted Discussed with the staff of day and pretzel twisting machine operator. Continue close monitoring 08/15 Patient developed abdominal distention and vomiting and abdominal x-ray showing distended gas filled stomach and ileus NG tube was placed which helped for decompression surgical consult was obtained who recommended Reglan and lactulose which were added Also patient continued on IV Lasix and diuresing and continued on IV antibiotics with Zosyn WBC 12.2, hemoglobin 8.9 Blood pressure is soft low side up with systolic 80s to 90s Patient remains sleepy in bed still with bilateral leg edema Ragland catheter in place, NG tube in place Patient eventually does not want to go to subacute rehab with risk-benefit explained to her 08/16 Patient NG tube was removed today, abdomen less tender and distended, She still has bilateral leg swelling but they are improving Blood pressure on the soft side therefore we will switch morphine to IV Dilaudid Also Levaquin was discontinued, currently patient kept on Zosyn 08/17 Patient awake alert Leg edema significantly improved Patient still have persistent dilatation of the stomach, patient refused NG tube for decompression after risk-benefit explained Keep the patient n.p.o. Gastric dilatation seen with the KUB and the CT of the abdomen pelvis from today Discussed the case with surgery team Patient blood pressure on the low side received small bolus of IV fluid Recommend to order PICC line and nutrition consult for TPN tomorrow 08/23. Dr. Watkins took over care. Patient was complaining of abdominal pain this morning, abdominal was distended, had an episode of nausea and vomiting last night. Patient is currently on full liquid diet with TPN. Surgery evaluated, ordered x-ray abdominal 08/24/2024 Patient evaluated in follow-up on the cardiac unit. NG tube remains out as patient has been passing gas and abdomen is softer today. She is continued on full liquid diet and TPN and has had continued episodes of nausea and vomiting overnight. Abdominal xray gaseous distention of the gastric lumen and bowel. Correlate for ileus. General surgery following. Most recent blood work reveals a white blood cell count of 7.48, he open 8.3. Her sodium level is 134 BUN of 18 creatinine of 0.56 blood glucose remains elevated 200-300. 08/25/2024 Patient is seen in follow-up today continues to report significant amounts of gas and reports abdominal pain is improved and is maintained on TPN. Awaiting surgery recommendations regarding advancing diet as patient is requesting at least liquids to drink. Patient is afebrile with no reports of chest pain or shortness of breath. Patient is significantly weak, emaciated, cachectic appearing and dentures are not fitting with appearance of severe protein calorie malnutrition. Encourage patient to get up more frequently and sit in the chair and strongly recommend PT/OT therapy daily. REVIEW OF SYSTEMS: CONSTITUTIONAL: No fever, no malaise,. CARDIOVASCULAR: No chest pain, no palpitations, no syncope. PULMONARY: No shortness of breath, no cough, GASTROINTESTINAL: Mentioned above NEUROLOGICAL: No headaches, no weakness, PHYSICAL EXAMINATION: GENERAL: The patient is alert and oriented x3, ill looking HEENT: Pupils are round and equally reacting to light. EOMI. No scleral icterus. No conjunctival pallor. Normocephalic, atraumatic. No pharyngeal erythema. No thyromegaly. CARDIOVASCULAR: S1 and S2 present. No murmurs, rubs, or gallops. PULMONARY: Chest is clear to auscultation, no wheezing or crackles. ABDOMEN: Soft, less distended, positive bowel sounds. No palpable organomegaly. Nontender on palpation MUSCULOSKELETAL: No joint swelling or deformity. EXTREMITIES: No cyanosis, clubbing, or pedal edema. NEUROLOGICAL: Gross neurological examination did not reveal any focal deficits. Diffusely weak SKIN: No rashes. Assessment: Sepsis on admission from likely bilateral pneumonia; hospital acquired Recent admission for complicated UTI Acute hypoxemic respiratory failure, currently on 3 L Resolving ileus, gastric distention post NG tube insertion for gastric decompression and the tube was removed, maintained on TPN Hypotension, consider sepsis/septic shock Bilateral heel pressure ulcer, present on admission Urinary retention, abdominal/pelvis CT from previous admission remarkable for bilateral hydronephrosis, right greater than left, bladder wall thickening, and small bowel ileus Acute kidney injury from ATN resolved. Elevated troponins History of hypertension currently normotensive. History of hyperlipidemia Diabetes mellitus type 2, uncontrolled with hyperglycemia Chronic heart failure with reduced EF 35% felt to be an ischemic cardiomyopathy History of coronary artery disease with previous PCI/stents History of peripheral vascular disease with bilateral iliac and SFA stents History of left foot transmetatarsal amputation History of right 4th and 5th toe amputation on the right History of nondisplaced oblique fracture of the left greater trochanter Ongoing tobacco dependence Severe protein calorie malnutrition with a BMI of 24.0 GI prophylaxis DVT prophylaxis Full code Plan: General surgery following for the ileus/gasseous distention, maintained on TPN and patient is requesting fluids or food. Per general surgery okay for clear liquids NG tube to be kept out for now Continue symptomatic and supportive care; antiemetics While inpatient remains on antibiotic and will continue to follow ID recommendation ID following Continue Plavix, Lipitor Continue amiodarone Continue farxiga, aldactone, metoprolol and losartan Continue accuchecks ACHS and sliding scale insulin will increase lantus even further for improved glycemic control. Cardiology recommending f.u with Dr Lock on outpatient basis for possible cardi ac catheterization and evaluation of the decreased EF found this hospital stay. [facility] on discharge when medically stable The impression and plan of care has been dictated by Consuelo Combs, Nurse Practitioner as directed. Dr. Isaias MD I have performed a history and physical examination and medical decision making of this patient, discussed the same with the dictator, and agree with the dictators assessment and plan as written, documented as a scribe. Based on total visit time, I have performed more than 50% of this visit. Objective - Vital Signs Vital signs: Vital Signs Temp 97.9 F 08/25/24 04:00 Pulse 64 08/25/24 04:00 Resp 18 08/25/24 04:00 BP 93/55 08/25/24 04:00 Pulse Ox 97 08/25/24 04:00 FiO2 40 08/07/24 08:11 Intake & Output 08/24/24 08/24/24 08/25/24 06:59 18:59 06:59 Intake Total 20 20 20 Output Total 2500 1700 1850 Balance -2480 -1680 -1830 Weight 69.1 kg 71.6 kg Intake: IV 20 20 20 Invasive Line 8 20 20 20 Output: Urine 2500 1700 1850 Straight 1000 Other: Voiding Method Indwelling Catheter Indwelling Catheter Indwelling Catheter - Labs CBC & Chem 7: 08/25/24 05:39 08/25/24 05:39 Labs: Abnormal Lab Results - Last 24 Hours (Table) 08/24/24 08/24/24 08/24/24 Range/Units 06:52 11:32 16:36 RBC (4.10-5.20) 10*6/uL Hgb (12.0-15.0) g/dL Hct (37.2-46.3) % Immature Gran # (0.00-0.04) 10*3/uL Sodium 134 L (137-145) mmol/L BUN 18 H (7-17) mg/dL Glucose 289 H (74-99) mg/dL POC Glucose (mg/dL) 198 H 148 H (70-110) mg/dL 08/24/24 08/25/24 08/25/24 Range/Units 20:02 05:39 05:59 RBC 2.77 L (4.10-5.20) 10*6/uL Hgb 7.8 L (12.0-15.0) g/dL Hct 24.3 L (37.2-46.3) % Immature Gran # 0.05 H (0.00-0.04) 10*3/uL Sodium (137-145) mmol/L BUN (7-17) mg/dL Glucose (74-99) mg/dL POC Glucose (mg/dL) 121 H 270 H (70-110) mg/dL
[2024-08-25 20:10] LABS: Glucose,Whole Blood 234 mg/dL (70-110)
[2024-08-25] MEDS: INSULIN GLARGINE (LANTUS) 100 UNIT/ML SYR SQ SCH (21:25)
[2024-08-26 06:02] LABS: Glucose,Whole Blood 262 mg/dL (70-110)
[2024-08-26 08:58] LABS: African American GFR (CKD) >90 (>60 ml/min/1.73 sqM); Anion Gap 7 mmol/L; Blood Urea Nitrogen 20 mg/dL (7-17); Calcium 8.6 mg/dL (8.4-10.2); Carbon Dioxide 23 mmol/L (22-30); Chloride 106 mmol/L (98-107); Glucose 217 mg/dL (74-99); Magnesium 2.0 mg/dL (1.6-2.3); Non-African American GFR(CKD) >90 (>60 ml/min/1.73 sqM); Potassium 4.3 mmol/L (3.5-5.1); Sodium 136 mmol/L (137-145)
[2024-08-26 09:08] LABS: Basophils # (A) 0.04 10*3/uL (0.00-0.10); Basophils % (A) 0.5 %; Eosinophils # (A) 0.21 10*3/uL (0.04-0.35); Eosinophils % (A) 2.7 %; HCT 26.2 % (37.2-46.3); HGB 8.4 g/dL (12.0-15.0); Lymphocytes # (A) 1.22 10*3/uL (0.90-5.00); Lymphocytes % (A) 15.9 %; MCH 28.2 pg (27.0-32.0); MCHC 32.1 g/dL (32.0-37.0); MCV 87.9 fL (80.0-97.0); Monocytes # (A) 0.53 10*3/uL (0.20-1.00); Monocytes % (A) 6.9 %; Neutrophils # (A) 5.62 10*3/uL (1.80-7.70); Neutrophils % (A) 73.3 %; Platelet Count 329 10*3/uL (140-440); RBC 2.98 10*6/uL (4.10-5.20); RDW 17.3 % (11.5-14.5); WBC 7.67 10*3/uL (4.50-10.00)
[2024-08-26 11:26] LABS: Glucose,Whole Blood 238 mg/dL (70-110)
[2024-08-26 15:26] LABS: Triglycerides 164.00 mg/dL (0.00-149.00)
[2024-08-26] MEDS ORDERED: ALPRAZolam 0.25 MG TAB PO SCH (16:00)
--- NOTE | 2024-08-26 16:05 | P.PN ---
Subjective Progress Note Date: 08/25/24 Principal diagnosis: Reason for follow-up is fever/pneumonia Patient is a 63-year-old female with a past medical history significant for diabetes mellitus reflux hypertension hyperlipidemia [place] CVA TIA previous patient noted to have history of recurrent UTI recently discharged from this hospital after receiving treatment for UTI cystitis has been brought back to the hospital concerning for generalized weakness along with mental status changes and low oxygen patient did have a low-grade fever chest x-ray with multifocal airspace opacity probably this consultation. On today's evaluation that is 08/25/2024, patient has been afebrile, patient is breathing comfortably and is currently on room air, patient denies having any chest pain and cough, patient did have improvement in nausea no vomiting abdominal distention slightly decreased did have a bowel movement. Patient white count is 8.27, creatinine 0.58 Objective - Vital Signs Vital signs: Vital Signs Temp 97.8 F 08/25/24 12:00 Pulse 63 08/25/24 12:00 Resp 16 08/25/24 12:00 BP 95/56 08/25/24 12:00 Pulse Ox 100 08/25/24 12:00 FiO2 40 08/07/24 08:11 Intake & Output 08/24/24 08/25/24 08/25/24 18:59 06:59 18:59 Intake Total 20 20 Output Total 1700 1850 800 Balance -1680 -1830 -800 Weight 71.6 kg Intake: IV 20 20 Invasive Line 8 20 20 Output: Urine 1700 1850 800 Straight 1000 Other: Voiding Method Indwelling Catheter Indwelling Catheter - Exam Middle-age female lying in bed in no distress Unlabored breathing Patient did have evidence of sacral pressure ulcer with necrotic tissue - Labs CBC & Chem 7: 08/26/24 08:18 08/26/24 08:18 Labs: Abnormal Lab Results - Last 24 Hours (Table) 08/24/24 08/24/24 08/25/24 Range/Units 16:36 20:02 05:39 RBC 2.77 L (4.10-5.20) 10*6/uL Hgb 7.8 L (12.0-15.0) g/dL Hct 24.3 L (37.2-46.3) % Immature Gran # 0.05 H (0.00-0.04) 10*3/uL Sodium (137-145) mmol/L BUN (7-17) mg/dL Glucose (74-99) mg/dL POC Glucose (mg/dL) 148 H 121 H (70-110) mg/dL Phosphorus (2.5-4.5) mg/dL 08/25/24 08/25/24 08/25/24 Range/Units 05:39 05:39 05:59 RBC (4.10-5.20) 10*6/uL Hgb (12.0-15.0) g/dL Hct (37.2-46.3) % Immature Gran # (0.00-0.04) 10*3/uL Sodium 134 L (137-145) mmol/L BUN 18 H (7-17) mg/dL Glucose 251 H (74-99) mg/dL POC Glucose (mg/dL) 270 H (70-110) mg/dL Phosphorus 4.7 H (2.5-4.5) mg/dL 08/25/24 Range/Units 11:45 RBC (4.10-5.20) 10*6/uL Hgb (12.0-15.0) g/dL Hct (37.2-46.3) % Immature Gran # (0.00-0.04) 10*3/uL Sodium (137-145) mmol/L BUN (7-17) mg/dL Glucose (74-99) mg/dL POC Glucose (mg/dL) 230 H (70-110) mg/dL Phosphorus (2.5-4.5) mg/dL Assessment and Plan (1) Pneumonia Current Visit: Yes Status: Acute Code(s): J18.9 - PNEUMONIA, UNSPECIFIED ORGANISM SNOMED Code(s): 894315037 (2) Sepsis Current Visit: Yes Status: Acute Code(s): A41.9 - SEPSIS, UNSPECIFIED ORGANISM SNOMED Code(s): 34968118 (3) Pressure ulcer, heel, right, unstageable Current Visit: No Status: Acute Code(s): L89.610 - PRESSURE ULCER OF RIGHT HEEL, UNSTAGEABLE SNOMED Code(s): 21016011902626882 (4) Unstageable pressure ulcer of sacral region Current Visit: Yes Status: Acute Code(s): L89.150 - PRESSURE ULCER OF SACRAL REGION, UNSTAGEABLE SNOMED Code(s): 72404535976642982 Plan: 1patient presented to the hospital with sepsis in this patient who did have a fever tachycardia elevated white count meeting criteria for SIRS/sepsis with evidence of diffuse multifocal airspace opacities will need to cover for the resistant gram-negative with the likely pathogen as the patient was recently dis charged from this facility and exposed to antibiotics patient completed course of antibiotic for pneumonia 2keep bilateral heel area of the pressure to prevent any worsening of the bilateral heel pressure ulcer 3patient did have resolution of her fever and patient white count is normalized currently on Zosyn 4patient has developed unstageable sacral pressure ulcer to the sacral area will benefit from surgical debridement for now we will treat with the Medihoney followed by moist dressing change daily and frequent change of position Dictation was produced using [employer] dictation software. please excuse any grammatical, word or spelling errors. Time with Patient: Less than 30
[2024-08-26 16:20] LABS: Glucose,Whole Blood 238 mg/dL (70-110)
--- NOTE | 2024-08-26 18:39 | CDI ---
Documentation Clarification Form Date: 08/26/2024 05:37:17 PM From: Samantha Felder Phone: [phone] Admit Date: 08/03/2024 08:00:00 PM Patient Name: Mary Jo Caldwell Visit Number: [id number] Discharge Date: ATTENTION: The Clinical Documentation Specialists (CDI) and [facility] Coding Staff appreciate your assistance in clarifying documentation. Please respond to the clarification below the line at the bottom and electronically sign. The CDI & [facility] Coding staff will review the response and follow-up if needed. Please note: Queries are made part of the Legal Health Record. If you have any questions, please contact the author of this message via ITS. Provider: Consuelo GONZALEZ HCAP/Pneumonia is documented in the H/P and subsequent progress notes. Patient ongoing treatment may indicate additional clarification regarding the type of pneumonia is requested. History/Risk Factors: COPD, asthma, CVA/TIA, Diabetes Mellitus, GERD/Reflux, Current smoker Clinical Indicators: 63-year-old male was recently treated for complicated UTI and right heel pressure ulcer. He returned to ED for evaluation of shortness of breath, fever. 08/03 Lung/Breathing assessment: bilateral scattered rhonchi and crackles 08/03 WBC 19.35 Neutrophils 16.27 08/03 CXR: Multifocal airspace opacities concerning for pneumonia. 08/04 CXR: Correlate for pulmonary edema. Pneumonia and atypical pneumonia could be considered. Findings are worsening from prior. 08/05 ID Consult and ongoing progress note: Meeting criteria for SIRS/ Sepsis with evidence of diffuse multifocal airspace opacities will need to cover for the resistant gram-negative with the likely pathogen as the patient was recently discharged from this facility and exposed to antibiotics. Treatment: Machine Maintenance Repairer / Telemetry Levaquin 750 MG IVPB Q 24 HRS 08/03-08/13> 7/50 MG PO Daily 08/14-08/16 Zosyn 3.375 GM IVPB Q 8 HRS 08/03-08/10 .08/15-08/26 Duoneb 0.5 Mg-3 MG/3ML Yarelis RT-TID PRN Please further clarify the type of pneumonia, if known: [ x ] Gram Negative Bacterial Pneumonia [ ] Bacterial Pneumonia, specify causal organism (if known) [ ] Other, please specify [ ] Unable to determine (Template Last Revised: April 2020) MTDD
[2024-08-26 20:03] LABS: Glucose,Whole Blood 185 mg/dL (70-110)
--- NOTE | 2024-08-27 05:30 | P.PN ---
Subjective Progress Note Date: 08/26/24 63-year-old female with a past medical history significant for diabetes mellitus reflux hypertension hyperlipidemia [place] CVA TIA previous patient noted to have history of recurrent UTI recently discharged from this hospital after receiving treatment for UTI cystitis has been brought back to the hospital concerning for generalized weakness along with mental status changes and low oxygen patient did have a low-grade fever chest x-ray with multifocal airspace opacity probably this consultation. 08/08/2024 --Patient is seen and evaluated in ICU; the patient continues to be afebrile, the patient is on 3 L nasal cannula oxygen and breathing comfortably, the Pt denies having any chest pain or worsening cough, the patient denies having any abdominal pain no vomiting or any diarrhea has been complaining about her pain medication being inadequate. Blood work reveals WBC of 10, hemoglobin of 8.5 and platelet count of 294, sodium 135, potassium 3.9, BUN/creatinine of 11/0.71 -- urine for Legionella antigen negative blood cultures so far negative sputum not collected - chest x-ray cardiomegaly pulm vascular congestion bilateral effusion progressive in nature 08/09/2024 Patient is seen and evaluated in the intensive care unit yesterday. Is resting comfortably in bed. Currently saturating at 98% on nasal cannula, 3 L. No acute distress. She is awake and alert. Blood work reveals white count 10.9, hemoglobin 8.9, hematocrit 27.6, platelet count is normal. Sodium 136, potassium 4.3, chlorides 105, CO2 26, BUN 10, and creatinine 0.58. Calcium is 7.4. Microbiology is currently negative. No chest x-ray today. Patient has been transferred out of ICU; cardiology recommending to decrease amiodarone to 200 mg daily; patient remains on Lipitor, Plavix and cilostazol; fenofibrate was discontinued; cardiology recommending Farxiga 10 mg daily and Aldactone 12.5 mg 08/10/2024 Patient is seen and evaluated and discussed with nursing staff; received IM Zyprexa for agitation and anxiety last; patient is sleepy but arousable - Vital signs reviewed afebrile patient is currently on 3 L goal oxygen admission breathing comfortably Patient white count is 8.08, creatinine 0.65 blood culture negative patient presented to the hospital with sepsis in this patient who did have a f ever tachycardia elevated white count meeting criteria for SIRS/sepsis with evidence of diffuse multifocal airspace opacities will need to cover for the resistant gram-negative with the likely pathogen as the patient was recently discharged from this facility and exposed to antibiotics blood culture remains to be negative sputum has already been collected, urine for Legionella antigen negative keep bilateral heel area of the pressure to prevent any worsening of the bilateral heel pressure ulcer -patient did have resolution of the fever and white count down normalized on Zosyn will consider short course of oral antibiotic on discharge 08/11 Patient still remains mildly tachypneic but her breathing is improving slowly and gradually. Chest x-ray showing improving consolidation and improving fluid overload. Patient remains on IV Lasix with negative fluid balance Her abdomen is mildly distended, she says she has 1 bowel movement which is loose. Abdominal x-ray showing ileus. I talked to the patient about placement and she agreed to talk to the social worker health services for possible rehab placement upon discharge whenever ready In the meantime she remains on IV Zosyn and Levaquin. Also she is on IV Lasix 20 mg twice daily. Continued with Aldactone. 08/12 Patient lying in bed with no distress No significant dyspnea at rest, she is on 2 L oxygen She still have evidence of fluid overload she is still kept on IV Lasix 20 mg twice daily. She has almost several liters of urine output over the last 24 hours. Possible discharge in 24 to 48 hours if keeps improving 08/13 Patient is improving significantly and his breathing is improved She is kept on IV Lasix and she was making 2 to 3 L of urine output this morning, because of the benefits and significant lower in her fluid overload we will going to keep her for another 24 hours with IV Lasix No labs today, rechecking labs in the morning If she keeps improving no other new complaint may be considered for discharge 08/14 Patient still has bilateral leg swelling She is making good amount of urine output about 1 to 2 L every shift She does not want to go to rehab although she is severely weak she is adamant to go home with home care after several times we discussed with her. She has Ragland catheter in place However in the afternoon patient started develop more abdominal distention, abdominal x-ray requested as patient vomited once showing significant gaseous distention of the stomach, NG tube recommended which is ordered, Make the patient n.p.o., surgery team also consulted Discussed with the staff of day and security shift manager. Continue close monitoring 08/15 Patient developed abdominal distention and vomiting and abdominal x-ray showing distended gas filled stomach and ileus NG tube was placed which helped for decompression surgical consult was obtained who recommended Reglan and lactulose which were added Also patient continued on IV Lasix and diuresing and continued on IV antibiotics with Zosyn WBC 12.2, hemoglobin 8.9 Blood pressure is soft low side up with systolic 80s to 90s Patient remains sleepy in bed still with bilateral leg edema Ragland catheter in place, NG tube in place Patient eventually does not want to go to subacute rehab with risk-benefit explained to her 08/16 Patient NG tube was removed today, abdomen less tender and distended, She still has bilateral leg swelling but they are improving Blood pressure on the soft side therefore we will switch morphine to IV Dilaudid Also Levaquin was discontinued, currently patient kept on Zosyn 08/17 Patient awake alert Leg edema significantly improved Patient still have persistent dilatation of the stomach, patient refused NG tube for decompression after risk-benefit explained Keep the patient n.p.o. Gastric dilatation seen with the KUB and the CT of the abdomen pelvis from today Discussed the case with surgery team Patient blood pressure on the low side received small bolus of IV fluid Recommend to order PICC line and nutrition consult for TPN tomorrow 08/23. Dr. Watkins took over care. Patient was complaining of abdominal pain this morning, abdominal was distended, had an episode of nausea and vomiting last night. Patient is currently on full liquid diet with TPN. Surgery evaluated, ordered x-ray abdominal 08/24/2024 Patient evaluated in follow-up on the cardiac unit. NG tube remains out as patient has been passing gas and abdomen is softer today. She is continued on full liquid diet and TPN and has had continued episodes of nausea and vomiting overnight. Abdominal xray gaseous distention of the gastric lumen and bowel. Correlate for ileus. General surgery following. Most recent blood work reveals a white blood cell count of 7.48, he open 8.3. Her sodium level is 134 BUN of 18 creatinine of 0.56 blood glucose remains elevated 200-300. 08/25/2024 Patient is seen in follow-up today continues to report significant amounts of gas and reports abdominal pain is improved and is maintained on TPN. Awaiting surgery recommendations regarding advancing diet as patient is requesting at least liquids to drink. Patient is afebrile with no reports of chest pain or shortness of breath. Patient is significantly weak, emaciated, cachectic appearing and dentures are not fitting with appearance of severe protein calorie malnutrition. Encourage patient to get up more frequently and sit in the chair and strongly recommend PT/OT therapy daily. 08/26/2024 Patient is seen in follow-up today has been started on clear liquids by general surgery and asking for advance further and will await recommendations for surgery as patient is continued on TPN. Recommend weaning TPN infectious disease following patient is continued on antibiotics and patient is reporting multiple loose stools and has been maintained on antibiotics with prolonged hospitalization, C. difficile ordered and pending at this time. Patient to continue with local wound care of bilateral right heels as well as sacral area and recommend frequent offloading and position changes. Patient with significant weakness recommend PT/OT therapy daily and getting up out of the bed more frequently. Patient will need ECF on discharge. Discussion of possible debridement of the decubitus ulcer, although continuing with conservative management and local wound care at this time. REVIEW OF SYSTEMS: CONSTITUTIONAL: No fever, no malaise,. CARDIOVASCULAR: No chest pain, no palpitations, no syncope. PULMONARY: No shortness of breath, no cough, GASTROINTESTINAL: Reports tolerating clear liquids and would like an advancing diet, having significant amounts of gas and multiple episodes of loose dual NEUROLOGICAL: No headaches, reports continued ongoing weakness PHYSICAL EXAMINATION: GENERAL: The patient is alert and oriented x3, ill looking, elderly appearing, cachectic with significant muscle wasting noted HEENT: Pupils are round and equally reacting to light. EOMI. No scleral icterus. No conjunctival pallor. Normocephalic, atraumatic. No pharyngeal erythema. No thyromegaly. CARDIOVASCULAR: S1 and S2 present. No murmurs, rubs, or gallops. PULMONARY: Chest is clear to auscultation, no wheezing or crackles. ABDOMEN: Soft, thin, less distended, positive bowel sounds. No palpable organomegaly. Nontender on palpation MUSCULOSKELETAL: No joint swelling or deformity. EXTREMITIES: No cyanosis, clubbing, or pedal edema. NEUROLOGICAL: Gross neurological examination did not reveal any focal deficits. Diffusely weak SKIN: No rashes. Assessment: Sepsis on admission from likely bilateral gram-negative pneumonia; hospital acquired Recent admission for complicated UTI Acute hypoxemic respiratory failure, currently on 3 L Resolving ileus, gastric distention post NG tube insertion for gastric decompression and the tube was removed, maintained on TPN Hypotension, secondary to sepsis/septic shock from gram-negative pneumonia on admission Bilateral heel pressure ulcer, present on admission Unstageable sacral pressure ulcer to bilateral sacral regions secondary to incontinence and multiple macerated areas as patient is immobile and mostly at bedbound. Urinary retention, abdominal/pelvis CT from previous admission remarkable for bilateral hydronephrosis, right greater than left, bladder wall thickening, and small bowel ileus, recommend indwelling Ragland catheter Acute kidney injury from ATN resolved. Elevated troponins History of hypertension currently normotensive. History of hyperlipidemia Diabetes mellitus type 2, uncontrolled with hyperglycemia Chronic heart failure with reduced EF 35% felt to be an ischemic cardiomyopathy History of coronary artery disease with previous PCI/stents History of peripheral vascular disease with bilateral iliac and SFA stents History of left foot transmetatarsal amputation History of right 4th and 5th toe amputation on the right History of nondisplaced oblique fracture of the left greater trochanter Ongoing tobacco dependence Severe protein calorie malnutrition with a BMI of 24.0 GI prophylaxis DVT prophylaxis Full code Plan: General surgery following for the ileus/gasseous distention, maintained on TPN and patient is requesting fluids or food. Per general surgery okay for clear liquids, patient reported will advance diet per surgery although no order was placed. Will await discussed with surgery to advance diet. Recommend weaning TPN and discontinuing NG tube to be kept out for now Patient is passing gas and having multiple episodes of loose stools maintained on antibiotics with infectious disease following. C. difficile ordered and pending at this time. Continue symptomatic and supportive care; antiemetics While inpatient remains on antibiotic and will continue to follow ID r ecommendation ID following Continue local wound care to unstageable sacral regions as well as bilateral heels. No immediate plans for surgery but per ID, may benefit from debridement of the decubital area. Will discuss with general surgery.. Recommend frequent offloading and getting up more frequently and sitting in the chair as well as frequent position changes Patient having urinary retention and straight catheterization x 2, recommend continued indwelling Ragland catheter. Patient does have history of chronic cystitis and retention previously. Continue Plavix, Lipitor Continue amiodarone Continue farxiga, aldactone, metoprolol and losartan Continue accuchecks ACHS and sliding scale insulin will increase lantus even further for improved glycemic control. Cardiology recommending f.u with Dr Lock on outpatient basis for possible cardiac catheterization and evaluation of the decreased EF found this hospital stay. [facility] on discharge when medically stable The impression and plan of care has been dictated by Consuelo Combs, Nurse Practitioner as directed. Dr. Isaias MD I have performed a history and physical examination and medical decision making of this patient, discussed the same with the dictator, and agree with the dictators assessment and plan as written, documented as a scribe. Based on total visit time, I have performed more than 50% of this visit. Objective - Vital Signs Vital signs: Vital Signs Temp 98 F 08/26/24 08:00 Pulse 65 08/26/24 08:00 Resp 16 08/26/24 08:00 BP 107/60 08/26/24 08:00 Pulse Ox 97 08/26/24 08:00 FiO2 40 08/07/24 08:11 Intake & Output 08/25/24 08/26/24 08/26/24 18:59 06:59 18:59 Intake Total 500 480 Output Total 2450 2075 Balance -2450 -1575 480 Weight 71.6 kg 70.7 kg Intake: IV 200 Piperacillin-Tazobactam 3 200 .375 gm In Sodium Chloride 0.9% 100 ml @ 25 mls/hr IVPB Q8HR [facility] Rx# :[id number] Oral 300 480 Output: Urine 2450 2075 Straight 975 Other: Voiding Method Indwelling Catheter Indwelling Catheter - Labs CBC & Chem 7: 08/26/24 08:18 08/26/24 08:18 Labs: Abnormal Lab Results - Last 24 Hours (Table) 08/25/24 08/25/24 08/25/24 Range/Units 11:45 16:56 20:09 RBC (4.10-5.20) 10*6/uL Hgb (12.0-15.0) g/dL Hct (37.2-46.3) % Immature Gran # (0.00-0.04) 10*3/uL Sodium (137-145) mmol/L BUN (7-17) mg/dL Glucose (74-99) mg/dL POC Glucose (mg/dL) 230 H 216 H 234 H (70-110) mg/dL 08/26/24 08/26/24 08/26/24 Range/Units 06:01 08:18 08:18 RBC 2.98 L (4.10-5.20) 10*6/uL Hgb 8.4 L (12.0-15.0) g/dL Hct 26.2 L (37.2-46.3) % Immature Gran # 0.05 H (0.00-0.04) 10*3/uL Sodium 136 L (137-145) mmol/L BUN 20 H (7-17) mg/dL Glucose 217 H (74-99) mg/dL POC Glucose (mg/dL) 262 H (70-110) mg/dL
[2024-08-27 06:07] LABS: Glucose,Whole Blood 176 mg/dL (70-110)
[2024-08-27 07:47] LABS: African American GFR (CKD) >90 (>60 ml/min/1.73 sqM); Anion Gap 8 mmol/L; Blood Urea Nitrogen 18 mg/dL (7-17); Calcium 8.6 mg/dL (8.4-10.2); Carbon Dioxide 24 mmol/L (22-30); Chloride 106 mmol/L (98-107); Glucose 180 mg/dL (74-99); Magnesium 2.0 mg/dL (1.6-2.3); Non-African American GFR(CKD) >90 (>60 ml/min/1.73 sqM); Potassium 4.3 mmol/L (3.5-5.1); Sodium 138 mmol/L (137-145)
[2024-08-27 11:52] LABS: Glucose,Whole Blood 209 mg/dL (70-110)
--- NOTE | 2024-08-27 14:07 | P.PN ---
Subjective Progress Note Date: 08/27/24 Patient is tolerating her full liquid diet. She denies any significant abdominal pain. On exam vital signs appear stable. Abdomen soft. Patient will have her diet advanced as tolerated. Objective - Vital Signs Vital signs: Vital Signs Temp 97.7 F 08/27/24 11:52 Pulse 60 08/27/24 11:52 Resp 16 08/27/24 11:52 BP 101/60 08/27/24 11:52 Pulse Ox 99 08/27/24 11:52 FiO2 40 08/07/24 08:11 Intake & Output 08/26/24 08/27/24 08/27/24 18:59 06:59 18:59 Intake Total 2016 450 360 Output Total 2525 1375 1300 Balance -508 925 -940 Weight 72 kg Intake: IV 200 Piperacillin-Tazobactam 3 200 .375 gm In Sodium Chloride 0.9% 100 ml @ 25 mls/hr IVPB Q8HR [facility] Rx# :[id number] Intake, IV Titration 1037 Amount Mvi, Adult No.4 with Vit 1037 K 10 ml Trace (Conc-1Ml/ Dose) 1 ml Sodium Chloride 4Meq/ml Vial 24 meq Parenteral Electrolytes 20 ml In Amino Acids 5 %/Dextrose 20 % 1,000 ml @ 68 mls/hr IV .BY DURATION [facility] Rx#: [id number] Oral 980 250 360 Output: Urine 1700 1375 1300 Straight 1700 Uretheral (Ragland) 1375 Post Void Residual 825 Other: Voiding Method Indwelling Catheter Indwelling Catheter # Bowel Movements 1 - Labs CBC & Chem 7: 08/26/24 08:18 08/27/24 06:01 Labs: Abnormal Lab Results - Last 24 Hours (Table) 08/26/24 08/26/24 08/26/24 Range/Units 08:18 16:18 20:02 BUN (7-17) mg/dL Glucose (74-99) mg/dL POC Glucose (mg/dL) 238 H 185 H (70-110) mg/dL Triglycerides 164.00 H (0.00-149.00) mg/dL 08/27/24 08/27/24 08/27/24 Range/Units 06:01 06:06 11:40 BUN 18 H (7-17) mg/dL Glucose 180 H (74-99) mg/dL POC Glucose (mg/dL) 176 H 209 H (70-110) mg/dL Triglycerides (0.00-149.00) mg/dL
--- NOTE | 2024-08-27 16:00 | P.PN ---
Subjective Progress Note Date: 08/27/24 63-year-old female with a past medical history significant for diabetes mellitus reflux hypertension hyperlipidemia NM CVA TIA previous patient noted to have history of recurrent UTI recently discharged from this hospital after receiving treatment for UTI cystitis has been brought back to the hospital concerning for generalized weakness along with mental status changes and low oxygen patient did have a low-grade fever chest x-ray with multifocal airspace opacity probably this consultation. 08/08/2024 --Patient is seen and evaluated in ICU; the patient continues to be afebrile, the patient is on 3 L nasal cannula oxygen and breathing comfortably, the Pt denies having any chest pain or worsening cough, the patient denies having any abdominal pain no vomiting or any diarrhea has been complaining about her pain medication being inadequate. Blood work reveals WBC of 10, hemoglobin of 8.5 and platelet count of 294, sodium 135, potassium 3.9, BUN/creatinine of 11/0.71 -- urine for Legionella antigen negative blood cultures so far negative sputum not collected - chest x-ray cardiomegaly pulm vascular congestion bilateral effusion progressive in nature 08/09/2024 Patient is seen and evaluated in the intensive care unit yesterday. Is resting comfortably in bed. Currently saturating at 98% on nasal cannula, 3 L. No acute distress. She is awake and alert. Blood work reveals white count 10.9, hemoglobin 8.9, hematocrit 27.6, platelet count is normal. Sodium 136, potassium 4.3, chlorides 105, CO2 26, BUN 10, and creatinine 0.58. Calcium is 7.4. Microbiology is currently negative. No chest x-ray today. Patient has been transferred out of ICU; cardiology recommending to decrease amiodarone to 200 mg daily; patient remains on Lipitor, Plavix and cilostazol; fenofibrate was discontinued; cardiology recommending Farxiga 10 mg daily and Aldactone 12.5 mg 08/10/2024 Patient is seen and evaluated and discussed with nursing staff; received IM Zyprexa for agitation and anxiety last; patient is sleepy but arousable - Vital signs reviewed afebrile patient is currently on 3 L goal oxygen admission breathing comfortably Patient white count is 8.08, creatinine 0.65 blood culture negative patient presented to the hospital with sepsis in this patient who did have a fever tachycardia elevated white count meeting criteria for SIRS/sepsis with evidence of diffuse multifocal airspace opacities will need to cover for the resistant gram-negative with the likely pathogen as the patient was recently discharged from this facility and exposed to antibiotics blood culture remains to be negative sputum has already been collected, urine for Legionella antigen negative keep bilateral heel area of the pressure to prevent any worsening of the bilateral heel pressure ulcer -patient did have resolution of the fever and white count down normalized on Zosyn will consider short course of oral antibiotic on discharge 08/11 Patient still remains mildly tachypneic but her breathing is improving slowly and gradually. Chest x-ray showing improving consolidation and improving fluid overload. Patient remains on IV Lasix with negative fluid balance Her abdomen is mildly distended, she says she has 1 bowel movement which is loose. Abdominal x-ray showing ileus. I talked to the patient about placement and she agreed to talk to the social service agency director for possible rehab placement upon discharge whenever ready In the meantime she remains on IV Zosyn and Levaquin. Also she is on IV Lasix 20 mg twice daily. Continued with Aldactone. 08/12 Patient lying in bed with no distress No significant dyspnea at rest, she is on 2 L oxygen She still have evidence of fluid overload she is still kept on IV Lasix 20 mg twice daily. She has almost several liters of urine output over the last 24 hours. Possible discharge in 24 to 48 hours if keeps improving 08/13 Patient is improving significantly and his breathing is improved She is kept on IV Lasix and she was making 2 to 3 L of urine output this morning, because of the benefits and significant lower in her fluid overload we will going to keep her for another 24 hours with IV Lasix No labs today, rechecking labs in the morning If she keeps improving no other new complaint may be considered for discharge 08/14 Patient still has bilateral leg swelling She is making good amount of urine output about 1 to 2 L every shift She does not want to go to rehab although she is severely weak she is adamant to go home with home care after several times we discussed with her. She has Ragalnd catheter in place However in the afternoon patient started develop more abdominal distention, abdominal x-ray requested as patient vomited once showing significant gaseous distention of the stomach, NG tube recommended which is ordered, Make the p atient n.p.o., surgery team also consulted Discussed with the staff of day and overnight houseperson. Continue close monitoring 08/15 Patient developed abdominal distention and vomiting and abdominal x-ray showing distended gas filled stomach and ileus NG tube was placed which helped for decompression surgical consult was obtained who recommended Reglan and lactulose which were added Also patient continued on IV Lasix and diuresing and continued on IV antibiotics with Zosyn WBC 12.2, hemoglobin 8.9 Blood pressure is soft low side up with systolic 80s to 90s Patient remains sleepy in bed still with bilateral leg edema Ragland catheter in place, NG tube in place Patient eventually does not want to go to subacute rehab with risk-benefit explained to her 08/16 Patient NG tube was removed today, abdomen less tender and distended, She still has bilateral leg swelling but they are improving Blood pressure on the soft side therefore we will switch morphine to IV Dilaudid Also Levaquin was discontinued, currently patient kept on Zosyn 08/17 Patient awake alert Leg edema significantly improved Patient still have persistent dilatation of the stomach, patient refused NG tube for decompression after risk-benefit explained Keep the patient n.p.o. Gastric dilatation seen with the KUB and the CT of the abdomen pelvis from today Discussed the case with surgery team Patient blood pressure on the low side received small bolus of IV fluid Recommend to order PICC line and nutrition consult for TPN tomorrow 08/23. Dr. Watkins took over care. Patient was complaining of abdominal pain this morning, abdominal was distended, had an episode of nausea and vomiting last night. Patient is currently on full liquid diet with TPN. Surgery evaluated, ordered x-ray abdominal 08/24/2024 Patient evaluated in follow-up on the cardiac unit. NG tube remains out as patient has been passing gas and abdomen is softer today. She is continued on full liquid diet and TPN and has had continued episodes of nausea and vomiting overnight. Abdominal xray gaseous distention of the gastric lumen and bowel. Correlate for ileus. General surgery following. Most recent blood work reveals a white blood cell count of 7.48, he open 8.3. Her sodium level is 134 BUN of 18 creatinine of 0.56 blood glucose remains elevated 200-300. 08/25/2024 Patient is seen in follow-up today continues to report significant amounts of gas and reports abdominal pain is improved and is maintained on TPN. Awaiting surgery recommendations regarding advancing diet as patient is requesting at least liquids to drink. Patient is afebrile with no reports of chest pain or shortness of breath. Patient is significantly weak, emaciated, cachectic appearing and dentures are not fitting with appearance of severe protein calorie malnutrition. Encourage patient to get up more frequently and sit in the chair and strongly recommend PT/OT therapy daily. 08/26/2024 Patient is seen in follow-up today has been started on clear liquids by general surgery and asking for advance further and will await recommendations for surgery as patient is continued on TPN. Recommend weaning TPN infectious disease following patient is continued on antibiotics and patient is reporting multiple loose stools and has been maintained on antibiotics with prolonged h ospitalization, C. difficile ordered and pending at this time. Patient to continue with local wound care of bilateral right heels as well as sacral area and recommend frequent offloading and position changes. Patient with significant weakness recommend PT/OT therapy daily and getting up out of the bed more frequently. Patient will need ECF on discharge. Discussion of possible debridement of the decubitus ulcer, although continuing with conservative management and local wound care at this time. 08/27/2024 Patient is evaluated in follow-up on the medical floor. Patient has been having multiple episodes of loose stools. Her bowel sounds are normal active at this time. She is passing gas. Diet has been advanced by general surgery. Would recommend to wean TPN off as she is tolerating increased diet. Zosyn has been completed. Sodium level today is 138. REVIEW OF SYSTEMS: CONSTITUTIONAL: No fever, no malaise,. CARDIOVASCULAR: No chest pain, no palpitations, no syncope. PULMONARY: No shortness of breath, no cough, GASTROINTESTINAL: Reports tolerating clear liquids and would like an advancing diet, having significant amounts of gas and multiple episodes of loose dual NEUROLOGICAL: No headaches, reports continued ongoing weakness PHYSICAL EXAMINATION: GENERAL: The patient is alert and oriented x3, ill looking, elderly appearing, cachectic with significant muscle wasting noted HEENT: Pupils are round and equally reacting to light. EOMI. No scleral icterus. No conjunctival pallor. Normocephalic, atraumatic. No pharyngeal erythema. No thyromegaly. CARDIOVASCULAR: S1 and S2 present. No murmurs, rubs, or gallops. PULMONARY: Chest is clear to auscultation, no wheezing or crackles. ABDOMEN: Soft, thin, less distended, positive bowel sounds. No palpable organomegaly. Nontender on palpation MUSCULOSKELETAL: No joint swelling or deformity. EXTREMITIES: No cyanosis, clubbing, or pedal edema. NEUROLOGICAL: Gross neurological examination did not reveal any focal deficits. Diffusely weak SKIN: No rashes. Assessment: Sepsis on admission from likely bilateral gram-negative pneumonia; hospital acquired Recent admission for complicated UTI Acute hypoxemic respiratory failure, currently on 3 L Resolving ileus, gastric distention post NG tube insertion for gastric decompression and the tube was removed, maintained on TPN Hypotension, secondary to sepsis/septic shock from gram-negative pneumonia on admission Bilateral heel pressure ulcer, present on admission Unstageable sacral pressure ulcer to bilateral sacral regions secondary to incontinence and multiple macerated areas as patient is immobile and mostly at bedbound. Urinary retention, abdominal/pelvis CT from previous admission remarkable for bilateral hydronephrosis, right greater than left, bladder wall thickening, and small bowel ileus, recommend indwelling Ragland catheter Acute kidney injury from ATN resolved. Elevated troponins History of hypertension currently normotensive. History of hyperlipidemia Diabetes mellitus type 2, uncontrolled with hyperglycemia Chronic heart failure with reduced EF 35% felt to be an ischemic cardiomyopathy History of coronary artery disease with previous PCI/stents History of peripheral vascular disease with bilateral iliac and SFA stents History of left foot transmetatarsal amputation History of right 4th and 5th toe amputation on the right History of nondisplaced oblique fracture of the left greater trochanter Ongoing tobacco dependence Severe protein calorie malnutrition with a BMI of 24.0 GI prophylaxis DVT prophylaxis Full code Plan: General surgery following for the ileus/gasseous distention, maintained on TPN and patient is requesting fluids or food. Advance diet as tolerated to regular. recommend weaning TPN and discontinuing NG tube to be kept out for now Patient is passing gas and having multiple episodes of loose stools maintained on antibiotics with infectious disease following. C. difficile ordered and pending at this time. Continue symptomatic and supportive care; antiemetics While inpatient remains on antibiotic and will continue to follow ID recommendation ID following Continue local wound care to unstageable sacral regions as well as bilateral heels. No immediate plans for surgery but per ID, may benefit from debridement of the decubital area. Will discuss with general surgery.. Recommend frequent offloading and getting up more frequently and sitting in the chair as well as frequent position changes Patient having urinary retention and straight catheterization x 2, recommend continued indwelling Ragland catheter. Patient does have history of chronic cystitis and retention previously. Continue Plavix, Lipitor Continue amiodarone Continue farxiga, aldactone, metoprolol and losartan Continue accuchecks ACHS and sliding scale insulin will increase lantus even further for improved glycemic control. Cardiology recommending f.u with Dr Lock on outpatient basis for possible cardiac catheterization and evaluation of the decreased EF found this hospital stay. [facility] on discharge when medically stable The impression and plan of care has been dictated by Jenniffer Almeida Nurse Practitioner as directed. Dr. Isaias MD I have performed a history and physical examination and medical decision making of this patient, discussed the same with the dictator, and agree with the dictators assessment and plan as written, documented as a scribe. Based on total visit time, I have performed more than 50% of this visit. Objective - Vital Signs Vital signs: Vital Signs Temp 97.8 F 08/27/24 08:00 Pulse 72 08/27/24 08:00 Resp 16 08/27/24 08:00 BP 111/61 08/27/24 08:00 Pulse Ox 100 08/27/24 08:00 FiO2 40 08/07/24 08:11 Intake & Output 08/26/24 08/27/24 08/27/24 18:59 06:59 18:59 Intake Total 980 450 360 Output Total 2525 1375 775 Balance -1545 -925 -415 Weight 72 kg Intake: IV 200 Piperacillin-Tazobactam 3 200 .375 gm In Sodium Chloride 0.9% 100 ml @ 25 mls/hr IVPB Q8HR [facility] Rx# :[id number] Oral 980 250 360 Output: Urine 1700 1375 775 Straight 1700 Uretheral (Ragland) 1375 Post Void Residual 825 Other: Voiding Method Indwelling Catheter Indwelling Catheter # Bowel Movements 1 - Labs CBC & Chem 7: 08/26/24 08:18 08/27/24 06:01 Labs: Abnormal Lab Results - Last 24 Hours (Table) 08/26/24 08/26/24 08/26/24 Range/Units 08:18 11:25 16:18 BUN (7-17) mg/dL Glucose (74-99) mg/dL POC Glucose (mg/dL) 238 H 238 H (70-110) mg/dL Triglycerides 164.00 H (0.00-149.00) mg/dL 08/26/24 08/27/24 08/27/24 Range/Units 20:02 06:01 06:06 BUN 18 H (7-17) mg/dL Glucose 180 H (74-99) mg/dL POC Glucose (mg/dL) 185 H 176 H (70-110) mg/dL Triglycerides (0.00-149.00) mg/dL Assessment and Plan Time with Patient: Less than 30
[2024-08-27 16:55] LABS: Glucose,Whole Blood 177 mg/dL (70-110)
[2024-08-27 21:49] LABS: Glucose,Whole Blood 164 mg/dL (70-110)
[2024-08-28 05:49] LABS: African American GFR (CKD) >90 (>60 ml/min/1.73 sqM); Anion Gap 10 mmol/L; Blood Urea Nitrogen 19 mg/dL (7-17); Calcium 9.3 mg/dL (8.4-10.2); Carbon Dioxide 24 mmol/L (22-30); Chloride 103 mmol/L (98-107); Glucose 198 mg/dL (74-99); Magnesium 1.9 mg/dL (1.6-2.3); Non-African American GFR(CKD) >90 (>60 ml/min/1.73 sqM); Potassium 3.9 mmol/L (3.5-5.1); Sodium 137 mmol/L (137-145)
[2024-08-28 06:53] LABS: Glucose,Whole Blood 234 mg/dL (70-110)
--- NOTE | 2024-08-28 08:11 | P.PN ---
Subjective Progress Note Date: 08/26/24 Principal diagnosis: Reason for follow-up is fever/pneumonia Patient is a 63-year-old female with a past medical history significant for diabetes mellitus reflux hypertension hyperlipidemia OR CVA TIA previous patient noted to have history of recurrent UTI recently discharged from this hospital after receiving treatment for UTI cystitis has been brought back to the hospital concerning for generalized weakness along with mental status changes and low oxygen patient did have a low-grade fever chest x-ray with multifocal airspace opacity probably this consultation. On today's evaluation that is 08/26/2024, Patient is afebrile this morning patient denies having any chest pain shortness of breath or cough, the patient is currently on room air, patient did have improvement abdominal distention some nausea but no vomiting did have a bowel movement. The patient white count 7.67, creatinine 0.52 Objective - Vital Signs Vital signs: Vital Signs Temp 97.9 F 08/26/24 15:22 Pulse 63 08/26/24 15:22 Resp 20 08/26/24 15:22 BP 143/75 08/26/24 15:22 Pulse Ox 98 08/26/24 15:22 FiO2 40 08/07/24 08:11 Intake & Output 08/25/24 08/26/24 08/26/24 18:59 06:59 18:59 Intake Total 500 980 Output Total 2450 2075 1675 Balance -2450 -1575 -695 Weight 71.6 kg 70.7 kg Intake: IV 200 Piperacillin-Tazobactam 3 200 .375 gm In Sodium Chloride 0.9% 100 ml @ 25 mls/hr IVPB Q8HR COUNT INCLUDES THE [facility] Rx# :[id number] Oral 300 980 Output: Urine 2450 2075 850 Straight 975 850 Post Void Residual 825 Other: Voiding Method Indwelling Catheter Indwelling Catheter # Bowel Movements 3 - Exam Middle-age female lying in bed in no distress Unlabored breathing Patient did have evidence of sacral pressure ulcer with necrotic tissue - Labs CBC & Chem 7: 08/26/24 08:18 08/26/24 08:18 Labs: Abnormal Lab Results - Last 24 Hours (Table) 08/25/24 08/25/24 08/26/24 Range/Units 16:56 20:09 06:01 RBC (4.10-5.20) 10*6/uL Hgb (12.0-15.0) g/dL Hct (37.2-46.3) % Immature Gran # (0.00-0.04) 10*3/uL Sodium (137-145) mmol/L BUN (7-17) mg/dL Glucose (74-99) mg/dL POC Glucose (mg/dL) 216 H 234 H 262 H (70-110) mg/dL Triglycerides (0.00-149.00) mg/dL 08/26/24 08/26/24 08/26/24 Range/Units 08:18 08:18 11:25 RBC 2.98 L (4.10-5.20) 10*6/uL Hgb 8.4 L (12.0-15.0) g/dL Hct 26.2 L (37.2-46.3) % Immature Gran # 0.05 H (0.00-0.04) 10*3/uL Sodium 136 L (137-145) mmol/L BUN 20 H (7-17) mg/dL Glucose 217 H (74-99) mg/dL POC Glucose (mg/dL) 238 H (70-110) mg/dL Triglycerides 164.00 H (0.00-149.00) mg/dL Assessment and Plan (1) Pneumonia Current Visit: Yes Status: Acute Code(s): J18.9 - PNEUMONIA, UNSPECIFIED ORGANISM SNOMED Code(s): 239690799 (2) Sepsis Current Visit: Yes Status: Acute Code(s): A41.9 - SEPSIS, UNSPECIFIED ORGANISM SNOMED Code(s): 88735839 (3) Pressure ulcer, heel, right, unstageable Current Visit: No Status: Acute Code(s): L89.610 - PRESSURE ULCER OF RIGHT HEEL, UNSTAGEABLE SNOMED Code(s): 49391325120439867 (4) Unstageable pressure ulcer of sacral region Current Visit: Yes Status: Acute Code(s): L89.150 - PRESSURE ULCER OF SACRAL REGION, UNSTAGEABLE SNOMED Code(s): 28063984487497566 Plan: 1patient presented to the hospital with sepsis in this patient who did have a fever tachycardia elevated white count meeting criteria for SIRS/sepsis with evidence of diffuse multifocal airspace opacities will need to cover for the resistant gram-negative with the likely pathogen as the patient was recently d ischarged from this facility and exposed to antibiotics patient completed course of antibiotic for pneumonia 2keep bilateral heel area of the pressure to prevent any worsening of the bilateral heel pressure ulcer 3patient has developed unstageable sacral pressure ulcer to the sacral area will benefit from surgical debridement for now we will treat with the Medihoney followed by moist dressing change daily and frequent change of position 4-patient did have resolution of her fever and patient white count is normalized currently on Zosyn which she will complete as of 08/26/2024 and afterwards patient will be monitored closely off antibiotic therapy Dictation was produced using [employer] dictation software. please excuse any grammatical, word or spelling errors.
--- NOTE | 2024-08-28 08:14 | P.PN ---
Subjective Progress Note Date: 08/27/24 Principal diagnosis: Reason for follow-up is fever/pneumonia Patient is a 63-year-old female with a past medical history significant for diabetes mellitus reflux hypertension hyperlipidemia RI CVA TIA previous patient noted to have history of recurrent UTI recently discharged from this hospital after receiving treatment for UTI cystitis has been brought back to the hospital concerning for generalized weakness along with mental status changes and low oxygen patient did have a low-grade fever chest x-ray with multifocal airspace opacity probably this consultation. On today's evaluation that is 08/27/2024,the patient denies any fever or any chills, patient is breathing comfortably on room air, the patient denies chest pain shortness of breath and no significant cough, patient still complaining of some abdominal distention nausea but no vomiting did have a bowel movement. Patient did have a creatinine 0.55 no CBC was done today blood culture has been negative Objective - Vital Signs Vital signs: Vital Signs Temp 98 F 08/27/24 12:58 Pulse 69 08/27/24 12:58 Resp 13 08/27/24 12:58 BP 115/61 08/27/24 12:58 Pulse Ox 95 08/27/24 12:58 FiO2 40 08/07/24 08:11 - Exam Middle-age female lying in bed in no distress Unlabored breathing Patient did have evidence of sacral pressure ulcer with necrotic tissue - Labs CBC & Chem 7: 08/26/24 08:18 08/28/24 04:21 Labs: Abnormal Lab Results - Last 24 Hours (Table) 08/27/24 08/27/24 08/27/24 Range/Units 11:40 16:46 21:47 BUN (7-17) mg/dL Creatinine (0.52-1.04) mg/dL Glucose (74-99) mg/dL POC Glucose (mg/dL) 209 H 177 H 164 H (70-110) mg/dL 08/28/24 08/28/24 Range/Units 04:21 06:51 BUN 19 H (7-17) mg/dL Creatinine 0.48 L (0.52-1.04) mg/dL Glucose 198 H (74-99) mg/dL POC Glucose (mg/dL) 234 H (70-110) mg/dL Assessment and Plan (1) Pneumonia Current Visit: Yes Status: Acute Code(s): J18.9 - PNEUMONIA, UNSPECIFIED ORGANISM SNOMED Code(s): 504291397 (2) Sepsis Current Visit: Yes Status: Acute Code(s): A41.9 - SEPSIS, UNSPECIFIED ORGANISM SNOMED Code(s): 12198434 (3) Pressure ulcer, heel, right, unstageable Current Visit: No Status: Acute Code(s): L89.610 - PRESSURE ULCER OF RIGHT H EEL, UNSTAGEABLE SNOMED Code(s): 47294245289770777 (4) Unstageable pressure ulcer of sacral region Current Visit: Yes Status: Acute Code(s): L89.150 - PRESSURE ULCER OF SACRAL REGION, UNSTAGEABLE SNOMED Code(s): 97841174096931714 Plan: 1patient presented to the hospital with sepsis in this patient who did have a fever tachycardia elevated white count meeting criteria for SIRS/sepsis with evidence of diffuse multifocal airspace opacities will need to cover for the resistant gram-negative with the likely pathogen as the patient was recently discharged from this facility and exposed to antibiotics patient completed course of antibiotic for pneumonia 2keep bilateral heel area of the pressure to prevent any worsening of the bilateral heel pressure ulcer 3patient has developed unstageable sacral pressure ulcer to the sacral area will benefit from surgical debridement for now we will treat with the Medihoney followed by moist dressing change daily and frequent change of position 4-patient did have resolution of her fever and patient white count is normalized has received adequate IV Zosyn which has been discontinued and the patient will monitor closely off antibiotic therapy Dictation was produced using [employer] dictation software. please excuse any grammatical, word or spelling errors.
[2024-08-28] MEDS: HYDROmorphone 0.5 MG/0.5 ML SYRINGE IVP STA (09:58)
[2024-08-28 11:38] LABS: Glucose,Whole Blood 260 mg/dL (70-110)
--- NOTE | 2024-08-28 15:07 | P.PN ---
Subjective Progress Note Date: 08/28/24 63-year-old female with a past medical history significant for diabetes mellitus reflux hypertension hyperlipidemia [place] CVA TIA previous patient noted to have history of recurrent UTI recently discharged from this hospital after receiving treatment for UTI cystitis has been brought back to the hospital concerning for generalized weakness along with mental status changes and low oxygen patient did have a low-grade fever chest x-ray with multifocal airspace opacity probably this consultation. 08/08/2024 --Patient is seen and evaluated in ICU; the patient continues to be afebrile, the patient is on 3 L nasal cannula oxygen and breathing comfortably, the Pt denies having any chest pain or worsening cough, the patient denies having any abdominal pain no vomiting or any diarrhea has been complaining about her pain medication being inadequate. Blood work reveals WBC of 10, hemoglobin of 8.5 and platelet count of 294, sodium 135, potassium 3.9, BUN/creatinine of 11/0.71 -- urine for Legionella antigen negative blood cultures so far negative sputum not collected - chest x-ray cardiomegaly pulm vascular congestion bilateral effusion progressive in nature 08/09/2024 Patient is seen and evaluated in the intensive care unit yesterday. Is resting comfortably in bed. Currently saturating at 98% on nasal cannula, 3 L. No acute distress. She is awake and alert. Blood work reveals white count 10.9, hemoglobin 8.9, hematocrit 27.6, platelet count is normal. Sodium 136, potassium 4.3, chlorides 105, CO2 26, BUN 10, and creatinine 0.58. Calcium is 7.4. Microbiology is currently negative. No chest x-ray today. Patient has been transferred out of ICU; cardiology recommending to decrease amiodarone to 200 mg daily; patient remains on Lipitor, Plavix and cilostazol; fenofibrate was discontinued; cardiology recommending Farxiga 10 mg daily and Aldactone 12.5 mg 08/10/2024 Patient is seen and evaluated and discussed with nursing staff; received IM Zyprexa for agitation and anxiety last; patient is sleepy but arousable - Vital signs reviewed afebrile patient is currently on 3 L goal oxygen admission breathing comfortably Patient white count is 8.08, creatinine 0.65 blood culture negative patient presented to the hospital with sepsis in this patient who did have a fever tachycardia elevated white count meeting criteria for SIRS/sepsis with evidence of diffuse multifocal airspace opacities will need to cover for the resistant gram-negative with the likely pathogen as the patient was recently discharged from this facility and exposed to antibiotics blood culture remains to be negative sputum has already been collected, urine for Legionella antigen negative keep bilateral heel area of the pressure to prevent any worsening of the bilateral heel pressure ulcer -patient did have resolution of the fever and white count down normalized on Zosyn will consider short course of oral antibiotic on discharge 08/11 Patient still remains mildly tachypneic but her breathing is improving slowly and gradually. Chest x-ray showing improving consolidation and improving fluid overload. Patient remains on IV Lasix with negative fluid balance Her abdomen is mildly distended, she says she has 1 bowel movement which is loose. Abdominal x-ray showing ileus. I talked to the patient about placement and she agreed to talk to the professor of social work for possible rehab placement upon discharge whenever ready In the meantime she remains on IV Zosyn and Levaquin. Also she is on IV Lasix 20 mg twice daily. Continued with Aldactone. 08/12 Patient lying in bed with no distress No significant dyspnea at rest, she is on 2 L oxygen She still have evidence of fluid overload she is still kept on IV Lasix 20 mg twice daily. She has almost several liters of urine output over the last 24 hours. Possible discharge in 24 to 48 hours if keeps improving 08/13 Patient is improving significantly and his breathing is improved She is kept on IV Lasix and she was making 2 to 3 L of urine output this morning, because of the benefits and significant lower in her fluid overload we will going to keep her for another 24 hours with IV Lasix No labs today, rechecking labs in the morning If she keeps improving no other new complaint may be considered for discharge 08/14 Patient still has bilateral leg swelling She is making good amount of urine output about 1 to 2 L every shift She does not want to go to rehab although she is severely weak she is adamant to go home with home care after several times we discussed with her. She has Ragland catheter in place However in the afternoon patient started develop more abdominal distention, abdominal x-ray requested as patient vomited once showing significant gaseous distention of the stomach, NG tube recommended which is ordered, Make the p atient n.p.o., surgery team also consulted Discussed with the staff of day and editor dictionary. Continue close monitoring 08/15 Patient developed abdominal distention and vomiting and abdominal x-ray showing distended gas filled stomach and ileus NG tube was placed which helped for decompression surgical consult was obtained who recommended Reglan and lactulose which were added Also patient continued on IV Lasix and diuresing and continued on IV antibiotics with Zosyn WBC 12.2, hemoglobin 8.9 Blood pressure is soft low side up with systolic 80s to 90s Patient remains sleepy in bed still with bilateral leg edema Ragland catheter in place, NG tube in place Patient eventually does not want to go to subacute rehab with risk-benefit explained to her 08/16 Patient NG tube was removed today, abdomen less tender and distended, She still has bilateral leg swelling but they are improving Blood pressure on the soft side therefore we will switch morphine to IV Dilaudid Also Levaquin was discontinued, currently patient kept on Zosyn 08/17 Patient awake alert Leg edema significantly improved Patient still have persistent dilatation of the stomach, patient refused NG tube for decompression after risk-benefit explained Keep the patient n.p.o. Gastric dilatation seen with the KUB and the CT of the abdomen pelvis from today Discussed the case with surgery team Patient blood pressure on the low side received small bolus of IV fluid Recommend to order PICC line and nutrition consult for TPN tomorrow 08/23. Dr. Watkins took over care. Patient was complaining of abdominal pain this morning, abdominal was distended, had an episode of nausea and vomiting last night. Patient is currently on full liquid diet with TPN. Surgery evaluated, ordered x-ray abdominal 08/24/2024 Patient evaluated in follow-up on the cardiac unit. NG tube remains out as patient has been passing gas and abdomen is softer today. She is continued on full liquid diet and TPN and has had continued episodes of nausea and vomiting overnight. Abdominal xray gaseous distention of the gastric lumen and bowel. Correlate for ileus. General surgery following. Most recent blood work reveals a white blood cell count of 7.48, he open 8.3. Her sodium level is 134 BUN of 18 creatinine of 0.56 blood glucose remains elevated 200-300. 08/25/2024 Patient is seen in follow-up today continues to report significant amounts of gas and reports abdominal pain is improved and is maintained on TPN. Awaiting surgery recommendations regarding advancing diet as patient is requesting at least liquids to drink. Patient is afebrile with no reports of chest pain or shortness of breath. Patient is significantly weak, emaciated, cachectic appearing and dentures are not fitting with appearance of severe protein calorie malnutrition. Encourage patient to get up more frequently and sit in the chair and strongly recommend PT/OT therapy daily. 08/26/2024 Patient is seen in follow-up today has been started on clear liquids by general surgery and asking for advance further and will await recommendations for surgery as patient is continued on TPN. Recommend weaning TPN infectious disease following patient is continued on antibiotics and patient is reporting multiple loose stools and has been maintained on antibiotics with prolonged h ospitalization, C. difficile ordered and pending at this time. Patient to continue with local wound care of bilateral right heels as well as sacral area and recommend frequent offloading and position changes. Patient with significant weakness recommend PT/OT therapy daily and getting up out of the bed more frequently. Patient will need ECF on discharge. Discussion of possible debridement of the decubitus ulcer, although continuing with conservative management and local wound care at this time. 08/27/2024 Patient is evaluated in follow-up on the medical floor. Patient has been having multiple episodes of loose stools. Her bowel sounds are normal active at this time. She is passing gas. Diet has been advanced by general surgery. Would recommend to wean TPN off as she is tolerating increased diet. Zosyn has been completed. Sodium level today is 138. 08/28/2024 Patient evaluated today in follow up on the medical floor. Zosyn has been discontinued. She has been tolerating regular diet and recommending to discontinue the TPN and Lipids and dietary following for this. Ragland catheter remains. Continue with local wound care and pressure offloading for the sacral wound. REVIEW OF SYSTEMS: CONSTITUTIONAL: No fever, no malaise,. CARDIOVASCULAR: No chest pain, no palpitations, no syncope. PULMONARY: No shortness of breath, no cough, GASTROINTESTINAL: Reports tolerating clear liquids and would like an advancing diet, having significant amounts of gas and multiple episodes of loose dual NEUROLOGICAL: No headaches, reports continued ongoing weakness PHYSICAL EXAMINATION: GENERAL: The patient is alert and oriented x3, ill looking, elderly appearing, cachectic with significant muscle wasting noted HEENT: Pupils are round and equally reacting to light. EOMI. No scleral icterus. No conjunctival pallor. Normocephalic, atraumatic. No pharyngeal erythema. No thyromegaly. CARDIOVASCULAR: S1 and S2 present. No murmurs, rubs, or gallops. PULMONARY: Chest is clear to auscultation, no wheezing or crackles. ABDOMEN: Soft, thin, less distended, positive bowel sounds. No palpable organomegaly. Nontender on palpation MUSCULOSKELETAL: No joint swelling or deformity. EXTREMITIES: No cyanosis, clubbing, or pedal edema. NEUROLOGICAL: Gross neurological examination did not reveal any focal deficits. Diffusely weak SKIN: No rashes. Assessment: Sepsis on admission from likely bilateral gram-negative pneumonia; hospital acquired Recent admission for complicated UTI Acute hypoxemic respiratory failure, currently on 3 L Resolving ileus, gastric distention post NG tube insertion for gastric decompression and the tube was removed, maintained on TPN Hypotension, secondary to sepsis/septic shock from gram-negative pneumonia on admission Bilateral heel pressure ulcer, present on admission Unstageable sacral pressure ulcer to bilateral sacral regions secondary to incontinence and multiple macerated areas as patient is immobile and mostly at bedbound. Urinary retention, abdominal/pelvis CT from previous admission remarkable for bilateral hydronephrosis, right greater than left, bladder wall thickening, and small bowel ileus, recommend indwelling Ragland catheter Acute kidney injury from ATN resolved. Elevated troponins History of hypertension currently normotensive. History of hyperlipidemia Diabetes mellitus type 2, uncontrolled with hyperglycemia Chronic heart failure with reduced EF 35% felt to be an ischemic cardiomyopathy History of coronary artery disease with previous PCI/stents History of peripheral vascular disease with bilateral iliac and SFA stents History of left foot transmetatarsal amputation History of right 4th and 5th toe amputation on the right History of nondisplaced oblique fracture of the left greater trochanter Ongoing tobacco dependence Severe protein calorie malnutrition with a BMI of 24.0 GI prophylaxis DVT prophylaxis Full code Plan: General surgery following for the ileus/gasseous distention, maintained on TPN and patient is requesting fluids or food. Advance diet as tolerated to regular. recommend weaning TPN and discontinuing NG tube to be kept out for now Patient is passing gas and having multiple episodes of loose stools maintained on antibiotics with infectious disease following. C. difficile ordered and pending at this time. Continue symptomatic and supportive care; antiemetics While inpatient remains on antibiotic and will continue to follow ID recommendation ID following Continue local wound care to unstageable sacral regions as well as bilateral heels. No immediate plans for surgery but per ID, may benefit from debridement of the decubital area. Will discuss with general surgery.. Recommend frequent offloading and getting up more frequently and sitting in the chair as well as frequent position changes Patient having urinary retention and straight catheterization x 2, recommend con tinued indwelling Ragland catheter. Patient does have history of chronic cystitis and retention previously. Continue Plavix, Lipitor Continue amiodarone Continue farxiga, aldactone, metoprolol and losartan Continue accuchecks ACHS and sliding scale insulin will increase lantus even further for improved glycemic control. Cardiology recommending f.u with Dr Lock on outpatient basis for possible car diac catheterization and evaluation of the decreased EF found this hospital stay. [facility] [place] on discharge when medically stable The impression and plan of care has been dictated by Jenniffer Almeida, Nurse Practitioner as directed. Dr. Isaias MD I have performed a history and physical examination and medical decision making of this patient, discussed the same with the dictator, and agree with the dictators assessment and plan as written, documented as a scribe. Based on total visit time, I have performed more than 50% of this visit. Objective - Vital Signs Vital signs: Vital Signs Temp 98.3 F 08/28/24 07:11 Pulse 68 08/28/24 08:00 Resp 15 08/28/24 08:00 BP 105/58 08/28/24 07:11 Pulse Ox 94 L 08/28/24 07:11 FiO2 40 08/07/24 08:11 Intake & Output 08/27/24 08/28/24 08/28/24 18:59 06:59 18:59 Intake Total 1979 4523 Output Total 2099 3500 Balance -120 1023 Weight 72.3 kg 72.3 kg Intake: IV 200 Piperacillin-Tazobactam 3 200 .375 gm In Sodium Chloride 0.9% 100 ml @ 25 mls/hr IVPB Q8HR [facility] Rx# :[id number] Intake, IV Titration 2062 Amount Mvi, Adult No.4 with Vit 1037 K 10 ml Trace (Conc-1Ml/ Dose) 1 ml Sodium Chloride 4Meq/ml Vial 24 meq Parenteral Electrolytes 20 ml In Amino Acids 5 %/Dextrose 20 % 1,000 ml @ 68 mls/hr IV .BY DURATION [facility] Rx#: [id number] Sodium Chloride 4Meq/ml 1026 Vial 24 meq Parenteral Electrolytes 20 ml In Amino Acids 5 %/Dextrose 20 % 1,000 ml @ 68 mls/hr IV .BY DURATION [facility] Rx#: [id number] Oral 1780 2460 Output: Urine 2100 3500 Other: Voiding Method Indwelling Catheter Indwelling Catheter Indwelling Catheter # Bowel Movements 1 - Labs CBC & Chem 7: 08/26/24 08:18 08/28/24 04:21 Labs: Abnormal Lab Results - Last 24 Hours (Table) 08/27/24 08/27/24 08/28/24 Range/Units 16:46 21:47 04:21 BUN 19 H (7-17) mg/dL Creatinine 0.48 L (0.52-1.04) mg/dL Glucose 198 H (74-99) mg/dL POC Glucose (mg/dL) 177 H 164 H (70-110) mg/dL 08/28/24 08/28/24 Range/Units 06:51 11:36 BUN (7-17) mg/dL Creatinine (0.52-1.04) mg/dL Glucose (74-99) mg/dL POC Glucose (mg/dL) 234 H 260 H (70-110) mg/dL Assessment and Plan Time with Patient: Less than 30
--- NOTE | 2024-08-28 15:08 | P.PN ---
Subjective Progress Note Date: 08/28/24 Principal diagnosis: Reason for follow-up is fever/pneumonia Patient is a 63-year-old female with a past medical history significant for diabetes mellitus reflux hypertension hyperlipidemia [place] CVA TIA previous patient noted to have history of recurrent UTI recently discharged from this hospital after receiving treatment for UTI cystitis has been brought back to the hospital concerning for generalized weakness along with mental status changes and low oxygen patient did have a low-grade fever chest x-ray with multifocal airspace opacity probably this consultation. On today's evaluation that is 08/28/2024,the patient remains to be afebrile, patient is on room air not requiring supplemental oxygen and denies any shortness of breath no chest pain or cough.Patient mention improvement in the nausea and vomiting has had abdominal discomfort and did have a bowel movement. Patient did have a creatinine 0.48 no CBC was done today blood culture has been negative Objective - Vital Signs Vital signs: Vital Signs Temp 98.3 F 08/28/24 07:11 Pulse 68 08/28/24 08:00 Resp 15 08/28/24 08:00 BP 105/58 08/28/24 07:11 Pulse Ox 94 L 08/28/24 07:11 FiO2 40 08/07/24 08:11 Intake & Output 08/27/24 08/28/24 08/28/24 18:59 06:59 18:59 Intake Total 1979 45 Output Total 2099 3500 Balance -120 1023 Weight 72.3 kg 72.3 kg Intake: IV 200 Piperacillin-Tazobactam 3 200 .375 gm In Sodium Chloride 0.9% 100 ml @ 25 mls/hr IVPB Q8HR [facility] Rx# :[id number] Intake, IV Titration 2062 Amount Mvi, Adult No.4 with Vit 1037 K 10 ml Trace (Conc-1Ml/ Dose) 1 ml Sodium Chloride 4Meq/ml Vial 24 meq Parenteral Electrolytes 20 ml In Amino Acids 5 %/Dextrose 20 % 1,000 ml @ 68 mls/hr IV .BY DURATION [facility] Rx#: [id number] Sodium Chloride 4Meq/ml 1026 Vial 24 meq Parenteral Electrolytes 20 ml In Amino Acids 5 %/Dextrose 20 % 1,000 ml @ 68 mls/hr IV .BY DURATION [facility] Rx#: [id number] Oral 1780 2460 Output: Urine 2100 3500 Other: Voiding Method Indwelling Catheter Indwelling Catheter Indwelling Catheter # Bowel Movements 1 - Exam Middle-age female lying in bed in no distress Unlabored breathing Patient did have evidence of sacral pressure ulcer with necrotic tissue - Labs CBC & Chem 7: 08/26/24 08:18 08/28/24 04:21 Labs: Abnormal Lab Results - Last 24 Hours (Table) 08/27/24 08/27/24 08/28/24 Range/Units 16:46 21:47 04:21 BUN 19 H (7-17) mg/dL Creatinine 0.48 L (0.52-1.04) mg/dL Glucose 198 H (74-99) mg/dL POC Glucose (mg/dL) 177 H 164 H (70-110) mg/dL 08/28/24 08/28/24 Range/Units 06:51 11:36 BUN (7-17) mg/dL Creatinine (0.52-1.04) mg/dL Glucose (74-99) mg/dL POC Glucose (mg/dL) 234 H 260 H (70-110) mg/dL Assessment and Plan (1) Pneumonia Current Visit: Yes Status: Acute Code(s): J18.9 - PNEUMONIA, UNSPECIFIED ORGANISM SNOMED Code(s): 380650743 (2) Sepsis Current Visit: Yes Status: Acute Code(s): A41.9 - SEPSIS, UNSPECIFIED ORGAN ISM SNOMED Code(s): 29195110 (3) Pressure ulcer, heel, right, unstageable Current Visit: No Status: Acute Code(s): L89.610 - PRESSURE ULCER OF RIGHT HEEL, UNSTAGEABLE SNOMED Code(s): 24086984586884158 (4) Unstageable pressure ulcer of sacral region Current Visit: Yes Status: Acute Code(s): L89.150 - PRESSURE ULCER OF SACRAL REGION, UNSTAGEABLE SNOMED Code(s): 53992222859907190 Plan: 1patient presented to the hospital with sepsis in this patient who did have a fever tachycardia elevated white count meeting criteria for SIRS/sepsis with evidence of diffuse multifocal airspace opacities will need to cover for the resistant gram-negative with the likely pathogen as the patient was recently discharged from this facility and exposed to antibiotics patient completed course of antibiotic for pneumonia 2keep bilateral heel area of the pressure to prevent any worsening of the bilateral heel pressure ulcer 3patient has developed unstageable sacral pressure ulcer to the sacral area will benefit from surgical debridement for now we will treat with the [place] followed by moist dressing change daily and frequent change of position 4-patient did have resolution of her fever and patient white count is normalized 5patient has received adequate IV Zosyn which has been discontinued and the patient will monitor closely off antibiotic therapy and seems to be doing well so far Dictation was produced using [employer] dictation software. please excuse any grammatical, word or spelling errors. Time with Patient: Less than 30
--- NOTE | 2024-08-28 15:17 | P.PN ---
Subjective Progress Note Date: 08/28/24 Patient remains essentially unchanged. She has had some limited oral intake. She states her abdomen feels mildly distended. On exam vital signs appear stable. Abdomen soft. Resolving ileus. Patient will continue receive supportive care. Objective - Vital Signs Vital signs: Vital Signs Temp 97.4 F L 08/28/24 13:32 Pulse 68 08/28/24 13:32 Resp 16 08/28/24 13:32 BP 92/54 08/28/24 13:32 Pulse Ox 97 08/28/24 13:32 FiO2 40 08/07/24 08:11 Intake & Output 08/27/24 08/28/24 08/28/24 18:59 06:59 18:59 Intake Total 1980 4523 Output Total 2100 3500 Balance -120 1023 Weight 72.3 kg 72.3 kg Intake: IV 200 Piperacillin-Tazobactam 3 200 .375 gm In Sodium Chloride 0.9% 100 ml @ 25 mls/hr IVPB Q8HR [facility] Rx# :[id number] Intake, IV Titration 2063 Amount Mvi, Adult No.4 with Vit 1037 K 10 ml Trace (Conc-1Ml/ Dose) 1 ml Sodium Chloride 4Meq/ml Vial 24 meq Parenteral Electrolytes 20 ml In Amino Acids 5 %/Dextrose 20 % 1,000 ml @ 68 mls/hr IV .BY DURATION [facility] Rx#: [id number] Sodium Chloride 4Meq/ml 1026 Vial 24 meq Parenteral Electrolytes 20 ml In Amino Acids 5 %/Dextrose 20 % 1,000 ml @ 68 mls/hr IV .BY DURATION [facility] Rx#: [id number] Oral 1780 2460 Output: Urine 2100 3500 Other: Voiding Method Indwelling Catheter Indwelling Catheter Indwelling Catheter # Bowel Movements 1 - Labs CBC & Chem 7: 08/26/24 08:18 08/28/24 04:21 Labs: Abnormal Lab Results - Last 24 Hours (Table) 08/27/24 08/27/24 08/28/24 Range/Units 16:46 21:47 04:21 BUN 19 H (7-17) mg/dL Creatinine 0.48 L (0.52-1.04) mg/dL Glucose 198 H (74-99) mg/dL POC Glucose (mg/dL) 177 H 164 H (70-110) mg/dL 08/28/24 08/28/24 Range/Units 06:51 11:36 BUN (7-17) mg/dL Creatinine (0.52-1.04) mg/dL Glucose (74-99) mg/dL POC Glucose (mg/dL) 234 H 260 H (70-110) mg/dL
[2024-08-28 16:56] LABS: Glucose,Whole Blood 228 mg/dL (70-110)
[2024-08-28 21:08] LABS: Glucose,Whole Blood 230 mg/dL (70-110)
[2024-08-29] MEDS: KETOROLAC 15 MG/ML 1 ML VIAL IVP PRN (00:19)
[2024-08-29] MEDS: HYDROmorphone 1 MG/ML 1 ML SYRINGE IVP PRN (03:34)
[2024-08-29 05:04] LABS: ALT 11 U/L (4-34); AST 16 U/L (14-36); African American GFR (CKD) >90 (>60 ml/min/1.73 sqM); Albumin 2.6 g/dL (3.5-5.0); Albumin/Globulin Ratio 1.0; Alkaline Phosphatase 50 U/L (38-126); Anion Gap 8 mmol/L; Blood Urea Nitrogen 25 mg/dL (7-17); Calcium 9.0 mg/dL (8.4-10.2); Carbon Dioxide 23 mmol/L (22-30); Chloride 103 mmol/L (98-107); Globulin 2.5 g/dL; Glucose 201 mg/dL (74-99); Magnesium 1.8 mg/dL (1.6-2.3); Non-African American GFR(CKD) >90 (>60 ml/min/1.73 sqM); Potassium 4.4 mmol/L (3.5-5.1); Sodium 134 mmol/L (137-145); Total Protein 5.1 g/dL (6.3-8.2)
[2024-08-29 06:21] LABS: Glucose,Whole Blood 263 mg/dL (70-110)
--- NOTE | 2024-08-29 08:53 | P.PN ---
Subjective Progress Note Date: 08/29/24 Patient is tolerating diet. She had a small bowel movement yesterday. She states she is passing flatus. On exam vital signs appear stable. Abdomen soft. Resolving ileus patient will continue receive supportive care. Objective - Vital Signs Vital signs: Vital Signs Temp 98.0 F 08/29/24 07:19 Pulse 61 08/29/24 07:19 Resp 17 08/29/24 07:19 BP 111/62 08/29/24 07:19 Pulse Ox 96 08/29/24 07:19 FiO2 40 08/07/24 08:11 Intake & Output 08/28/24 08/29/24 08/29/24 18:59 06:59 18:59 Intake Total 1294 Output Total 2500 Balance 1294 -2500 Weight 72.3 kg Intake: Intake, IV Titration 544 Amount Mvi, Adult No.4 with Vit 544 K 10 ml Trace (Conc-1Ml/ Dose) 1 ml Sodium Chloride 4Meq/ml Vial 16 meq In Amino Acid 5%-D20w +Lytes*E* 1,000 ml @ 68 mls/hr IV .BY DURATION [facility] Rx#:[id number] Oral 750 Output: Urine 2500 Other: Voiding Method Indwelling Catheter # Voids 4 # Bowel Movements 1 - Labs CBC & Chem 7: 08/26/24 08:18 08/29/24 04:08 Labs: Abnormal Lab Results - Last 24 Hours (Table) 08/28/24 08/28/24 08/28/24 Range/Units 11:36 16:55 21:07 Sodium (137-145) mmol/L BUN (7-17) mg/dL Creatinine (0.52-1.04) mg/dL Glucose (74-99) mg/dL POC Glucose (mg/dL) 260 H 228 H 230 H (70-110) mg/dL Total Protein (6.3-8.2) g/dL Albumin (3.5-5.0) g/dL 08/29/24 08/29/24 Range/Units 04:08 06:20 Sodium 134 L (137-145) mmol/L BUN 25 H (7-17) mg/dL Creatinine 0.48 L (0.52-1.04) mg/dL Glucose 201 H (74-99) mg/dL POC Glucose (mg/dL) 263 H (70-110) mg/dL Total Protein 5.1 L (6.3-8.2) g/dL Albumin 2.6 L (3.5-5.0) g/dL
[2024-08-29 08:56] LABS: Basophils # (A) 0.04 X 10*3/uL (0.00-0.10); Basophils % (A) 0.4 %; Eosinophils # (A) 0.21 X 10*3/uL (0.04-0.35); Eosinophils % (A) 2.3 %; HCT 27.4 % (37.2-46.3); HGB 8.3 g/dL (12.0-15.0); Immature Grans, Automated 0.60 %; Lymphocytes # (A) 1.86 X 10*3/uL (0.90-5.00); Lymphocytes % (A) 20.7 %; MCH 27.4 pg (27.0-32.0); MCHC 30.3 g/dL (32.0-37.0); MCV 90.4 FL (80.0-97.0); Monocytes # (A) 0.83 X 10*3/uL (0.20-1.00); Monocytes % (A) 9.3 %; NRBC Per 100 WBC 0 X 10*3/uL (0.00-0.01); Neutrophils # (A) 5.98 X 10*3/uL (1.80-7.70); Neutrophils % (A) 66.7 %; Platelet Count 344 X 10*3/uL (140-440); RBC 3.03 X 10*6/uL (4.10-5.20); RDW 18.2 % (11.5-14.5); WBC 8.97 X 10*3/uL (4.50-10.00)
[2024-08-29 11:45] LABS: Glucose,Whole Blood 243 mg/dL (70-110)
[2024-08-29] MEDS: MAGNESIUM SULFATE-D5W PMX 1 GM in DEXTROSE/WATER 1 100ML.BAG IVPB ONE (12:58)
--- NOTE | 2024-08-29 14:24 | P.PN ---
Subjective Progress Note Date: 08/29/24 63-year-old female with a past medical history significant for diabetes mellitus reflux hypertension hyperlipidemia [place] CVA TIA previous patient noted to have history of recurrent UTI recently discharged from this hospital after receiving treatment for UTI cystitis has been brought back to the hospital concerning for generalized weakness along with mental status changes and low oxygen patient did have a low-grade fever chest x-ray with multifocal airspace opacity probably this consultation. 08/08/2024 --Patient is seen and evaluated in ICU; the patient continues to be afebrile, the patient is on 3 L nasal cannula oxygen and breathing comfortably, the Pt denies having any chest pain or worsening cough, the patient denies having any abdominal pain no vomiting or any diarrhea has been complaining about her pain medication being inadequate. Blood work reveals WBC of 10, hemoglobin of 8.5 and platelet count of 294, sodium 135, potassium 3.9, BUN/creatinine of 11/0.71 -- urine for Legionella antigen negative blood cultures so far negative sputum not collected - chest x-ray cardiomegaly pulm vascular congestion bilateral effusion progressive in nature 08/09/2024 Patient is seen and evaluated in the intensive care unit yesterday. Is resting comfortably in bed. Currently saturating at 98% on nasal cannula, 3 L. No acute distress. She is awake and alert. Blood work reveals white count 10.9, hemoglobin 8.9, hematocrit 27.6, platelet count is normal. Sodium 136, potassium 4.3, chlorides 105, CO2 26, BUN 10, and creatinine 0.58. Calcium is 7.4. Microbiology is currently negative. No chest x-ray today. Patient has been transferred out of ICU; cardiology recommending to decrease amiodarone to 200 mg daily; patient remains on Lipitor, Plavix and cilostazol; fenofibrate was discontinued; cardiology recommending Farxiga 10 mg daily and Aldactone 12.5 mg 08/10/2024 Patient is seen and evaluated and discussed with nursing staff; received IM Zyprexa for agitation and anxiety last; patient is sleepy but arousable - Vital signs reviewed afebrile patient is currently on 3 L goal oxygen admission breathing comfortably Patient white count is 8.08, creatinine 0.65 blood culture negative patient presented to the hospital with sepsis in this patient who did have a fever tachycardia elevated white count meeting criteria for SIRS/sepsis with evidence of diffuse multifocal airspace opacities will need to cover for the resistant gram-negative with the likely pathogen as the patient was recently discharged from this facility and exposed to antibiotics blood culture remains to be negative sputum has already been collected, urine for Legionella antigen negative keep bilateral heel area of the pressure to prevent any worsening of the bilateral heel pressure ulcer -patient did have resolution of the fever and white count down normalized on Zosyn will consider short course of oral antibiotic on discharge 08/11 Patient still remains mildly tachypneic but her breathing is improving slowly and gradually. Chest x-ray showing improving consolidation and improving fluid overload. Patient remains on IV Lasix with negative fluid balance Her abdomen is mildly distended, she says she has 1 bowel movement which is loose. Abdominal x-ray showing ileus. I talked to the patient about placement and she agreed to talk to the criminal justice social worker for possible rehab placement upon discharge whenever ready In the meantime she remains on IV Zosyn and Levaquin. Also she is on IV Lasix 20 mg twice daily. Continued with Aldactone. 08/12 Patient lying in bed with no distress No significant dyspnea at rest, she is on 2 L oxygen She still have evidence of fluid overload she is still kept on IV Lasix 20 mg twice daily. She has almost several liters of urine output over the last 24 hours. Possible discharge in 24 to 48 hours if keeps improving 08/13 Patient is improving significantly and his breathing is improved She is kept on IV Lasix and she was making 2 to 3 L of urine output this morning, because of the benefits and significant lower in her fluid overload we will going to keep her for another 24 hours with IV Lasix No labs today, rechecking labs in the morning If she keeps improving no other new complaint may be considered for discharge 08/14 Patient still has bilateral leg swelling She is making good amount of urine output about 1 to 2 L every shift She does not want to go to rehab although she is severely weak she is adamant to go home with home care after several times we discussed with her. She has Ragland catheter in place However in the afternoon patient started develop more abdominal distention, abdominal x-ray requested as patient vomited once showing significant gaseous distention of the stomach, NG tube recommended which is ordered, Make the p atient n.p.o., surgery team also consulted Discussed with the staff of day and film processing shift supervisor. Continue close monitoring 08/15 Patient developed abdominal distention and vomiting and abdominal x-ray showing distended gas filled stomach and ileus NG tube was placed which helped for decompression surgical consult was obtained who recommended Reglan and lactulose which were added Also patient continued on IV Lasix and diuresing and continued on IV antibiotics with Zosyn WBC 12.2, hemoglobin 8.9 Blood pressure is soft low side up with systolic 80s to 90s Patient remains sleepy in bed still with bilateral leg edema Ragland catheter in place, NG tube in place Patient eventually does not want to go to subacute rehab with risk-benefit explained to her 08/16 Patient NG tube was removed today, abdomen less tender and distended, She still has bilateral leg swelling but they are improving Blood pressure on the soft side therefore we will switch morphine to IV Dilaudid Also Levaquin was discontinued, currently patient kept on Zosyn 08/17 Patient awake alert Leg edema significantly improved Patient still have persistent dilatation of the stomach, patient refused NG tube for decompression after risk-benefit explained Keep the patient n.p.o. Gastric dilatation seen with the KUB and the CT of the abdomen pelvis from today Discussed the case with surgery team Patient blood pressure on the low side received small bolus of IV fluid Recommend to order PICC line and nutrition consult for TPN tomorrow 08/23. Dr. Watkins took over care. Patient was complaining of abdominal pain this morning, abdominal was distended, had an episode of nausea and vomiting last night. Patient is currently on full liquid diet with TPN. Surgery evaluated, ordered x-ray abdominal 08/24/2024 Patient evaluated in follow-up on the cardiac unit. NG tube remains out as patient has been passing gas and abdomen is softer today. She is continued on full liquid diet and TPN and has had continued episodes of nausea and vomiting overnight. Abdominal xray gaseous distention of the gastric lumen and bowel. Correlate for ileus. General surgery following. Most recent blood work reveals a white blood cell count of 7.48, he open 8.3. Her sodium level is 134 BUN of 18 creatinine of 0.56 blood glucose remains elevated 200-300. 08/25/2024 Patient is seen in follow-up today continues to report significant amounts of gas and reports abdominal pain is improved and is maintained on TPN. Awaiting surgery recommendations regarding advancing diet as patient is requesting at least liquids to drink. Patient is afebrile with no reports of chest pain or shortness of breath. Patient is significantly weak, emaciated, cachectic appearing and dentures are not fitting with appearance of severe protein calorie malnutrition. Encourage patient to get up more frequently and sit in the chair and strongly recommend PT/OT therapy daily. 08/26/2024 Patient is seen in follow-up today has been started on clear liquids by general surgery and asking for advance further and will await recommendations for surgery as patient is continued on TPN. Recommend weaning TPN infectious disease following patient is continued on antibiotics and patient is reporting multiple loose stools and has been maintained on antibiotics with prolonged h ospitalization, C. difficile ordered and pending at this time. Patient to continue with local wound care of bilateral right heels as well as sacral area and recommend frequent offloading and position changes. Patient with significant weakness recommend PT/OT therapy daily and getting up out of the bed more frequently. Patient will need ECF on discharge. Discussion of possible debridement of the decubitus ulcer, although continuing with conservative management and local wound care at this time. 08/27/2024 Patient is evaluated in follow-up on the medical floor. Patient has been having multiple episodes of loose stools. Her bowel sounds are normal active at this time. She is passing gas. Diet has been advanced by general surgery. Would recommend to wean TPN off as she is tolerating increased diet. Zosyn has been completed. Sodium level today is 138. 08/28/2024 Patient evaluated today in follow up on the medical floor. Zosyn has been discontinued. She has been tolerating regular diet and recommending to discontinue the TPN and Lipids and dietary following for this. Ragland catheter remains. Continue with local wound care and pressure offloading for the sacral wound. 08/29/2024 Patient is evaluated today in follow-up in the medical floor. Patient continues to report abdominal discomfort states it is mild today and states that the increase in the IV Dilaudid as well as the addition of IV Toradol has helped her pain. She remains on liquid diet although states that the texture of food is returning her from increasing her diet to regular. Her bowel sounds remain slug maria d and her abdomen remains distended. She is still having frequent bouts of diarrhea. C. difficile is negative. Discussed increasing activity level and pressure offloading for her decubitus ulcer. ID recommending surgical debridement no plans per general surgery for this at this time. She continues with [facility] wound care. Patient continues on TPN lipids currently running at half rate and can be weaned off as patient has been tolerating some increase in diet. Patient is currently afebrile and maintaining oxygen saturations 96% on room air. REVIEW OF SYSTEMS: CONSTITUTIONAL: No fever, no malaise,. CARDIOVASCULAR: No chest pain, no palpitations, no syncope. PULMONARY: No shortness of breath, no cough, GASTROINTESTINAL: Reports tolerating clear liquids and would like an advancing diet, having significant amounts of gas and multiple episodes of loose dual NEUROLOGICAL: No headaches, reports continued ongoing weakness PHYSICAL EXAMINATION: GENERAL: The patient is alert and oriented x3, ill looking, elderly appearing, cachectic with significant muscle wasting noted HEENT: Pupils are round and equally reacting to light. EOMI. No scleral icterus. No conjunctival pallor. Normocephalic, atraumatic. No pharyngeal erythema. No thyromegaly. CARDIOVASCULAR: S1 and S2 present. No murmurs, rubs, or gallops. PULMONARY: Chest is clear to auscultation, no wheezing or crackles. ABDOMEN: Soft, thin, less distended, positive bowel sounds. No palpable organomegaly. Nontender on palpation MUSCULOSKELETAL: No joint swelling or deformity. EXTREMITIES: No cyanosis, clubbing, or pedal edema. NEUROLOGICAL: Gross neurological examination did not reveal any focal deficits. Diffusely weak SKIN: No rashes. Assessment: Sepsis on admission from likely bilateral gram-negative pneumonia; hospital acquired Recent admission for complicated UTI Acute hypoxemic respiratory failure, currently on 3 L Resolving ileus, gastric distention post NG tube insertion for gastric dec ompression and the tube was removed, maintained on TPN Hypotension, secondary to sepsis/septic shock from gram-negative pneumonia on admission Bilateral heel pressure ulcer, present on admission Unstageable sacral pressure ulcer to bilateral sacral regions secondary to incontinence and multiple macerated areas as patient is immobile and mostly at bedbound. Urinary retention, abdominal/pelvis CT from previous admission remarkable for bilateral hydronephrosis, right greater than left, bladder wall thickening, and small bowel ileus, recommend indwelling Ragland catheter Acute kidney injury from ATN resolved. Elevated troponins History of hypertension currently normotensive. History of hyperlipidemia Diabetes mellitus type 2, uncontrolled with hyperglycemia Chronic heart failure with reduced EF 35% felt to be an ischemic cardiomyopathy History of coronary artery disease with previous PCI/stents History of peripheral vascular disease with bilateral iliac and SFA stents History of left foot transmetatarsal amputation History of right 4th and 5th toe amputation on the right History of nondisplaced oblique fracture of the left greater trochanter Ongoing tobacco dependence Severe protein calorie malnutrition with a BMI of 24.0 GI prophylaxis DVT prophylaxis Full code Plan: General surgery following for the ileus/gasseous distention, maintained on TPN and patient is requesting fluids or food. Advance diet as tolerated to regular. recommend weaning TPN and discontinuing NG tube to be kept out for now Patient is passing gas and having multiple episodes of loose stools maintained on antibiotics with infectious disease following. C. difficile is negative. Continue symptomatic and supportive care; antiemetics While inpatient remains on antibiotic and will continue to follow ID recommendation ID following Continue local wound care to unstageable sacral regions as well as bilateral heels. No immediate plans for surgery but per ID, may benefit from debridement of the decubital area. Will discuss with general surgery.. Recommend frequent offloading and getting up more frequently and sitting in the chair as well as frequent position changes Patient having urinary retention and straight catheterization x 2, recommend continued indwelling Ragland catheter. Patient does have history of chronic cystitis and retention previously. Continue Plavix, Lipitor Continue amiodarone Continue farxiga, aldactone, metoprolol and losartan Continue accuchecks ACHS and sliding scale insulin will increase lantus even further for improved glycemic control. Cardiology recommending f.u with Dr Lock on outpatient basis for possible cardiac catheterization and evaluation of the decreased EF found this hospital stay. [facility] on discharge when medically stable The impression and plan of care has been dictated by Jenniffer Almeida Nurse Practitioner as directed. Dr. Isaias MD I have performed a history and physical examination and medical decision making of this patient, discussed the same with the dictator, and agree with the dictators assessment and plan as written, documented as a scribe. Based on total visit time, I have performed more than 50% of this visit. Objective - Vital Signs Vital signs: Vital Signs Temp 98.0 F 08/29/24 07:19 Pulse 61 08/29/24 07:19 Resp 17 08/29/24 07:19 BP 111/62 08/29/24 07:19 Pulse Ox 96 08/29/24 07:19 FiO2 40 08/07/24 08:11 Intake & Output 08/28/24 08/29/24 08/29/24 18:59 06:59 18:59 Intake Total 2320 180 Output Total 2500 Balance 2320 -2500 180 Weight 72.3 kg Intake: Intake, IV Titration 1570 Amount Mvi, Adult No.4 with Vit 544 K 10 ml Trace (Conc-1Ml/ Dose) 1 ml Sodium Chloride 4Meq/ml Vial 16 meq In Amino Acid 5%-D20w +Lytes*E* 1,000 ml @ 68 mls/hr IV .BY DURATION [facility] Rx#:[id number] Sodium Chloride 4Meq/ml 1026 Vial 24 meq Parenteral Electrolytes 20 ml In Amino Acids 5 %/Dextrose 20 % 1,000 ml @ 68 mls/hr IV .BY DURATION [facility] Rx#: [id number] Oral 750 180 Output: Urine 2500 Other: Voiding Method Indwelling Catheter Indwelling Catheter # Voids 4 # Bowel Movements 1 - Labs CBC & Chem 7: 08/29/24 04:08 08/29/24 04:08 Labs: Abnormal Lab Results - Last 24 Hours (Table) 08/28/24 08/28/24 08/29/24 Range/Units 16:55 21:07 04:08 RBC (4.10-5.20) X 10*6/uL Hgb (12.0-15.0) g/dL Hct (37.2-46.3) % MCHC (32.0-37.0) g/dL RDW (11.5-14.5) % Immature Gran # (0.00-0.04) X 10*3/uL Sodium 134 L (137-145) mmol/L BUN 25 H (7-17) mg/dL Creatinine 0.48 L (0.52-1.04) mg/dL Glucose 201 H (74-99) mg/dL POC Glucose (mg/dL) 228 H 230 H (70-110) mg/dL Total Protein 5.1 L (6.3-8.2) g/dL Albumin 2.6 L (3.5-5.0) g/dL 08/29/24 08/29/24 08/29/24 Range/Units 04:08 06:20 11:43 RBC 3.03 L (4.10-5.20) X 10*6/uL Hgb 8.3 L (12.0-15.0) g/dL Hct 27.4 L (37.2-46.3) % MCHC 30.3 L (32.0-37.0) g/dL RDW 18.2 H (11.5-14.5) % Immature Gran # 0.05 H (0.00-0.04) X 10*3/uL Sodium (137-145) mmol/L BUN (7-17) mg/dL Creatinine (0.52-1.04) mg/dL Glucose (74-99) mg/dL POC Glucose (mg/dL) 263 H 243 H (70-110) mg/dL Total Protein (6.3-8.2) g/dL Albumin (3.5-5.0) g/dL Assessment and Plan Time with Patient: Less than 30
--- NOTE | 2024-08-29 16:07 | P.PN ---
Subjective Progress Note Date: 08/29/24 Principal diagnosis: Reason for follow-up is fever/pneumonia Patient is a 63-year-old female with a past medical history significant for diabetes mellitus reflux hypertension hyperlipidemia [place] CVA TIA previous patient noted to have history of recurrent UTI recently discharged from this hospital after receiving treatment for UTI cystitis has been brought back to the hospital concerning for generalized weakness along with mental status changes and low oxygen patient did have a low-grade fever chest x-ray with multifocal airspace opacity probably this consultation. On today's evaluation that is 08/29/2024, the patient continues to be afebrile, the patient is on room air and breathing comfortably, the Pt denies having any chest pain, occasional cough, the patient denies having any abdominal pain no vomiting and did have few bowel movements. Patient white count is 8.97, creatinine 0.48 blood culture has been negative Objective - Vital Signs Vital signs: Vital Signs Temp 98.0 F 08/29/24 14:22 Pulse 67 08/29/24 14:22 Resp 18 08/29/24 14:22 BP 113/56 08/29/24 14:22 Pulse Ox 94 L 08/29/24 14:22 FiO2 40 08/07/24 08:11 Intake & Output 08/28/24 08/29/24 08/29/24 18:59 06:59 18:59 Intake Total 2320 300 Output Total 2500 Balance 2320 -2500 300 Weight 72.3 kg Intake: Intake, IV Titration 1570 Amount Mvi, Adult No.4 with Vit 544 K 10 ml Trace (Conc-1Ml/ Dose) 1 ml Sodium Chloride 4Meq/ml Vial 16 meq In Amino Acid 5%-D20w +Lytes*E* 1,000 ml @ 68 mls/hr IV .BY DURATION [facility] Rx#:[id number] Sodium Chloride 4Meq/ml 1026 Vial 24 meq Parenteral Electrolytes 20 ml In Amino Acids 5 %/Dextrose 20 % 1,000 ml @ 68 mls/hr IV .BY DURATION [facility] Rx#: [id number] Oral 750 300 Output: Urine 2500 Other: Voiding Method Indwelling Catheter Indwelling Catheter # Voids 4 # Bowel Movements 1 - Exam Middle-age female lying in bed in no distress Unlabored breathing Patient did have evidence of sacral pressure ulcer with necrotic tissue - Labs CBC & Chem 7: 08/29/24 04:08 08/29/24 04:08 Labs: Abnormal Lab Results - Last 24 Hours (Table) 08/28/24 08/28/24 08/29/24 Range/Units 16:55 21:07 04:08 RBC (4.10-5.20) X 10*6/uL Hgb (12.0-15.0) g/dL Hct (37.2-46.3) % MCHC (32.0-37.0) g/dL RDW (11.5-14.5) % Immature Gran # (0.00-0.04) X 10*3/uL Sodium 134 L (137-145) mmol/L BUN 25 H (7-17) mg/dL Creatinine 0.48 L (0.52-1.04) mg/dL Glucose 201 H (74-99) mg/dL POC Glucose (mg/dL) 228 H 230 H (70-110) mg/dL Total Protein 5.1 L (6.3-8.2) g/dL Albumin 2.6 L (3.5-5.0) g/dL 08/29/24 08/29/24 08/29/24 Range/Units 04:08 06:20 11:43 RBC 3.03 L (4.10-5.20) X 10*6/uL Hgb 8.3 L (12.0-15.0) g/dL Hct 27.4 L (37.2-46.3) % MCHC 30.3 L (32.0-37.0) g/dL RDW 18.2 H (11.5-14.5) % Immature Gran # 0.05 H (0.00-0.04) X 10*3/uL Sodium (137-145) mmol/L BUN (7-17) mg/dL Creatinine (0.52-1.04) mg/dL Glucose (74-99) mg/dL POC Glucose (mg/dL) 263 H 243 H (70-110) mg/dL Total Protein (6.3-8.2) g/dL Albumin (3.5-5.0) g/dL Assessment and Plan (1) Pneumonia Current Visit: Yes Status: Acute Code(s): J18.9 - PNEUMONIA, UNSPECIFIED ORGANISM SNOMED Code(s): 889330433 (2) Sepsis Current Visit: Yes Status: Acute Code(s): A41.9 - SEPSIS, UNSPECIFIED ORGANISM SNOMED Code(s): 83359950 (3) Pressure ulcer, heel, right, unstageable Current Visit: No Status: Acute Code(s): L89.610 - PRESSURE ULCER OF RIGHT HEEL, UNSTAGEABLE SNOMED Code(s): 85682075206510263 (4) Unstageable pressure ulcer of sacral region Current Visit: Yes Status: Acute Code(s): L89.150 - PRESSURE ULCER OF SACRAL REGION, UNSTAGEABLE SNOMED Code(s): 08644067260017795 Plan: 1patient presented to the hospital with sepsis in this patient who did have a fever tachycardia elevated white count meeting criteria for SIRS/sepsis with evidence of diffuse multifocal airspace opacities will need to cover for the r esistant gram-negative with the likely pathogen as the patient was recently discharged from this facility and exposed to antibiotics patient completed course of antibiotic for pneumonia 2keep bilateral heel area of the pressure to prevent any worsening of the bilateral heel pressure ulcer 3patient has developed unstageable sacral pressure ulcer to the sacral area will benefit from surgical debridement for now we will treat with the Medihoney followed by moist dressing change daily and frequent change of position 4-patient did have resolution of her fever and patient white count is normalized and is currently being monitored closely off antibiotic therapy Dictation was produced using [employer] dictation software. please excuse any grammatical, word or spelling errors. Time with Patient: Less than 30
[2024-08-29 16:50] LABS: Glucose,Whole Blood 264 mg/dL (70-110)
[2024-08-29 20:15] LABS: Glucose,Whole Blood 288 mg/dL (70-110)
[2024-08-29] MEDS: 1: MVI, ADULT NO.4 WITH VIT K 10 ML, TRACE (CONC-1ML/DOSE) 1 ML, SODIUM CHLORIDE 4MEQ/ML IV SCH (22:12)
[2024-08-30 03:57] LABS: African American GFR (CKD) >90 (>60 ml/min/1.73 sqM); Anion Gap 8 mmol/L; Blood Urea Nitrogen 36 mg/dL (7-17); Calcium 9.4 mg/dL (8.4-10.2); Carbon Dioxide 20 mmol/L (22-30); Chloride 106 mmol/L (98-107); Glucose 379 mg/dL (74-99); Magnesium 2.1 mg/dL (1.6-2.3); Non-African American GFR(CKD) >90 (>60 ml/min/1.73 sqM); Potassium 5.1 mmol/L (3.5-5.1); Sodium 134 mmol/L (137-145)
[2024-08-30 06:02] LABS: Glucose,Whole Blood 288 mg/dL (70-110)
[2024-08-30] MEDS ORDERED: 1: MVI, ADULT NO.4 WITH VIT K 10 ML, TRACE (CONC-1ML/DOSE) 1 ML, SODIUM CHLORIDE 4MEQ/ML IV SCH (06:30)
[2024-08-30 06:35] LABS: Glucose,Whole Blood 216 mg/dL (70-110)
--- NOTE | 2024-08-30 07:04 | CT ---
Head CT HISTORY: Code stroke. COMPARISON: None. TECHNIQUE: Multiple axial images are obtained from skull base to vertex without the use of IV contras t material. FINDINGS: The ventricles, basal cisterns and sulci over convexities are mildly enlarged consistent with mild at rophy. There is mild decreased density in the periventricular white matter consistent with mild chron ic ischemic white matter demyelination There is minimal calcification in the basal ganglia. There is no mass effect or shift of the midline structures. There is no acute intra or extra-axial hemorrhage. The posterior fossa including the brainstem, fourth ventricle and cerebellopontine angles appear norm al. There is marked arteriosclerotic calcification of the distal vertebral arteries and carotid siphons. The intraorbital contents are normal and symmetric. Visualized paranasal sinuses and mastoid air cell s are well aerated. IMPRESSION: No acute bleed or mass effect. Mild generalized atrophy. [facility], , 08/30/2024 7:02 AM
--- NOTE | 2024-08-30 07:29 | CT ---
EXAMINATION TYPE: CODE STROKE: CTA head neck DATE OF EXAM: 08/30/2024 COMPARISON: None CLINICAL INDICATION: Female, 63 years old with history of Neuro deficit, acute, stroke suspected; PHH , numbness and tinglingness left sides. hx of strokes. TECHNIQUE: CTA scan of the head and neck is performed with IV Contrast, patient injected with 65ml m L of Isovue 370, axial images are obtained, coronal and sagittal reformatted images are reviewed. 3D reconstructed images are created on an independent workstation and reviewed. CT DLP: 415.[address] CTDI: mGy Automated exposure control for dose reduction was used. NASCET criteria was used in interpretation of this exam? FINDINGS: There are scattered small calcified plaques at the at the brachiocephalic origins and in the carotid bifurcations within the neck but there is no significant brachiocephalic origin stenosis or stenosis of the common or internal carotid arteries within the neck. Intracranially, there is marked arteriosclerotic calcification of the distal left vertebral artery wh ich is dominant. The right vertebral artery terminates in the PICA . There is marked calcification of the carotid siphons. Evaluation for significant carotid siphon steno sis is limited secondary to the marked atherosclerotic calcification. The possibility of a significa nt stenosis in the proximal right carotid siphon cannot be excluded. Intracranially, distal to the carotid siphons, there is no significant stenosis, segmental occlusion , sizable aneurysm sac or vascular malformation. IMPRESSION:. 1. No significant stenosis of the brachiocephalic origins or common or internal carotid arteries with in the neck. 2. Marked atherosclerotic calcification of the distal left vertebral artery which is dominant. 3. No definite significant stenosis intracranially however there is marked calcification of the carot id siphons and the possibility of a right carotid siphon stenosis cannot be excluded. NASCET criteria was used in interpretation of this exam? [facility], , 08/30/2024 7:27 AM
[2024-08-30 07:39] LABS: Glucose,Whole Blood 157 mg/dL (70-110)
[2024-08-30] MEDS: T.ENECTEPLASE 5 MG/ML VIAL IVP STA (08:00)
[2024-08-30] MEDS: [UNRECOGNIZED DRUG - REMARK] IV SCH (09:24)
--- NOTE | 2024-08-30 10:08 | XR ---
EXAMINATION TYPE: XR chest 1V portable DATE OF EXAM: 08/30/2024 COMPARISON: 08/22/2024 CLINICAL INDICATION: Female, 63 years old with history of shortness of breath; TECHNIQUE: Single frontal view of the chest is obtained. FINDINGS: There is no focal air space opacity, pleural effusion, or pneumothorax seen. The cardiac silhouette size is within normal limits. The osseous structures are intact. There there is a TENS u nit in the mid to lower thoracic spine IMPRESSION: No acute process. [facility], , 08/30/2024 10:05 AM
--- NOTE | 2024-08-30 11:43 | P.PN ---
Subjective Progress Note Date: 08/30/24 HPI 63-year-old previously known to Dr. Cruz for history of CAD, triple-vessel stenting, PAD, carotid sclerosis, history of stroke hypertension dyslipidemia and tobacco smoking. July 2024 she was admitted for complicated UTI. This time she was admitted for septicemia with gram-negative pneumonia likely hospital-acquired. She had had a long and a complicated hospital stay. Currently she has been recovering from gastric ileus. Along with that she has had urinary retention, acute kidney injury, elevated troponin and bilateral pressure heel ulcers. Previously cardiology was following for type II NSTEMI and cardiomyopathy. We did notice during this admission that her LVEF to be around 35 with in ferolateral wall and anterolateral wall hypokinesia.. Her prior echo documented from 2017 showed preserved LVEF with mild concentric LVH. 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 She had a CT brain done which did not show any acute intracranial bleed or any acute changes. CT neck angiogram did not show significant obstruction or stenosis of brachiocephalic origin, common or internal carotid arteries however there was significant calcification noticed in carotid and vertebral artery. EKG shows sinus rhythm with nonspecific ST changes heart rate 75 bpm Telemetry shows sinus rhythm Labs sodium 134 potassium 5.1, BUN 36, creatinine 0.6, troponin negative, NT- proBNP 1010 Physical examination: LUNGS: Poor respiratory effort, mild crackles and rhonchi audible in bilateral bases. HEART: Regular pulses, mild systolic murmur, ABDOMEN: Mild tenderness on deep palpation, no significant distention EXTREMITIES: Mild bilateral lower extremity edema. No calf tenderness. NEUROLOGICAL: Patient is awake. There is residual neurological deficit from prior stroke. Detailed exam was not performed. Assessment: Concerns of new CVA 08/30/2024 Paroxysmal SVT, now resolved HFrEF, EF 35%, likely ischemic cardiomyopathy , not in exacerbation. New worsened LVEF when compared to echo from 2017. Acute hypoxic respiratory failure initially on BiPAP, transitioned to nasal cannula Pneumonia with sepsis Urinary retention and Bilateral hydronephrosis on recent hospitalization Coronary artery disease with prior triple-vessel stenting, with residual 50% in- stent stenosis in RCA stent. Lower extremity PAD status post stenting of the bilateral iliac and bilateral SFA Carotid atherosclerosis with History of stroke Diabetes mellitus type II uncontrolled with hyperglycemia, A1c 9.4 Hypertension, Dyslipidemia Tobacco use and dependence Anemia Plan: Her Plavix has been held. Resume Plavix 75 mg daily, continue Lipitor 80 Discontinue Imdur Continue metoprolol succinate at 12.5 mg daily. Uptitrate as needed depending on heart rate and blood pressure response Continue Aldactone 12.5 mg daily, add losartan 12.5 mg daily Hold Farxiga as patient is not taking orally. Resume once patient has good oral intake. Monitor kidney function and potassium levels. Appreciate neurology recommendations Objective - Vital Signs Vital signs: Vital Signs Temp 98.5 F 08/30/24 01:11 Pulse 77 08/30/24 01:11 Resp 16 08/30/24 01:11 BP 94/51 08/30/24 01:11 Pulse Ox 95 08/30/24 01:11 FiO2 40 08/07/24 08:11 Intake & Output 08/29/24 08/30/24 08/30/24 18:59 06:59 18:59 Intake Total 840 Output Total 1200 1900 Balance -360 -1900 Weight 73.6 kg Intake: Oral 840 Output: Urine 1200 1900 Other: Voiding Method Indwelling Catheter Indwelling Catheter - Labs CBC & Chem 7: 08/29/24 04:08 08/30/24 03:07 Labs: Abnormal Lab Results - Last 24 Hours (Table) 08/29/24 08/29/24 08/29/24 Range/Units 11:43 16:47 20:14 Sodium (137-145) mmol/L Carbon Dioxide (22-30) mmol/L BUN (7-17) mg/dL Glucose (74-99) mg/dL POC Glucose (mg/dL) 243 H 264 H 288 H (70-110) mg/dL 08/30/24 08/30/24 08/30/24 Range/Units 03:07 06:01 06:34 Sodium 134 L (137-145) mmol/L Carbon Dioxide 20 L (22-30) mmol/L BUN 36 H (7-17) mg/dL Glucose 379 H (74-99) mg/dL POC Glucose (mg/dL) 288 H 216 H (70-110) mg/dL 08/30/24 Range/Units 07:38 Sodium (137-145) mmol/L Carbon Dioxide (22-30) mmol/L BUN (7-17) mg/dL Glucose (74-99) mg/dL POC Glucose (mg/dL) 157 H (70-110) mg/dL
[2024-08-30] MEDS ORDERED: ASPIRIN 81 MG PO SCH (11:45)
[2024-08-30 11:57] LABS: Glucose,Whole Blood 193 mg/dL (70-110)
--- NOTE | 2024-08-30 12:13 | P.PN ---
Subjective Progress Note Date: 08/30/24 Principal diagnosis: Ileus/gastroparesis Patient was transferred to the ICU for possible new acute CVA. Patient has left-sided weakness. Patient tolerating regular diet. Had a bowel movement yesterday. Denies abdominal pain. Denies nausea or vomiting. Objective - Vital Signs Vital signs: Vital Signs Temp 98.5 F 08/30/24 01:11 Pulse 77 08/30/24 01:11 Resp 16 08/30/24 01:11 BP 94/51 08/30/24 01:11 Pulse Ox 95 08/30/24 01:11 FiO2 40 08/07/24 08:11 Intake & Output 08/29/24 08/30/24 08/30/24 18:59 06:59 18:59 Intake Total 840 Output Total 1200 1900 Balance -360 -1900 Weight 73.6 kg Intake: Oral 840 Output: Urine 1200 1900 Other: Voiding Method Indwelling Catheter Indwelling Catheter - Exam Abdomen: Soft, nontender, nondistended - Labs CBC & Chem 7: 08/29/24 04:08 08/30/24 03:07 Labs: Abnormal Lab Results - Last 24 Hours (Table) 08/29/24 08/29/24 08/30/24 Range/Units 16:47 20:14 03:07 Sodium 134 L (137-145) mmol/L Carbon Dioxide 20 L (22-30) mmol/L BUN 36 H (7-17) mg/dL Glucose 379 H (74-99) mg/dL POC Glucose (mg/dL) 264 H 288 H (70-110) mg/dL 08/30/24 08/30/24 08/30/24 Range/Units 06:01 06:34 07:38 Sodium (137-145) mmol/L Carbon Dioxide (22-30) mmol/L BUN (7-17) mg/dL Glucose (74-99) mg/dL POC Glucose (mg/dL) 288 H 216 H 157 H (70-110) mg/dL 08/30/24 Range/Units 11:56 Sodium (137-145) mmol/L Carbon Dioxide (22-30) mmol/L BUN (7-17) mg/dL Glucose (74-99) mg/dL POC Glucose (mg/dL) 193 H (70-110) mg/dL Assessment and Plan (1) Ileus Narrative/Plan: Patient doing well from a abdominal point of view. Continue regular diet. Continue stool softeners. Increase activity as tolerated. Current Visit: Yes Status: Acute Code(s): K56.7 - ILEUS, UNSPECIFIED SNOMED Code(s): 783027427
--- NOTE | 2024-08-30 12:34 | P.CNNES ---
History of Present Illness Consult date: 08/30/24 Requesting physician: Graeme Thompson Reason for Consult: code stroke, history of previous stroke History of Present Illness: Patient is a 63-year-old right-handed female with history of diabetes, ex tobacco use, who came to the hospital by ambulance August 03, 2024 at 5:38 PM, for not responding and having respiratory distress. She was just released from the hospital 2 days prior for complicated UTI and was admitted from 07/23/2024 through 08/01/2024. Family mentioned that she was normal about 30 minutes prior to calling EMS. Patient was laying on the couch with rapid change shallow respirations. She was pale and diaphoretic. Patient's vitals were 148/88, pulse rate 147 respiration 40 saturation 98% and blood sugar 383. Patient was diagnosed with acute hypoxemic respiratory failure possible HCAP, hypotension, febrile illness, leukocytosis acute kidney injury elevated troponin. Patient has sepsis, unstageable pressure ulcer of sacral region, pressure ulcer healed right, ileus. Patient had a stroke code activated at 6:37 AM this morning. Her NIH stroke scale was documented as 6 with aphasia. She has some partial loss of sensation and unable to resist gravity in either leg. Patient ended up receiving TNK. Patient's CT head revealed no acute bleed or mass effect. Mild generalized atrophy. I personally reviewed CT head and agree with the findings. No evidence of acute or previous strokes. EKG showed normal sinus rhythm. Chest x-ray showed no acute process. Patient had a stroke code activated this morning because of some speech difficulty. Patient states that this morning she woke up and told the nurse that she was having tingling feeling in the left hand fingertips but that has been going on for months. However she also noticed that she was having difficulty putting words together, could not talk right and kept on falling asleep and waking up. What ever she was seeing was not coming out right. This prompted activation of the stroke code. Reported NIH stroke scale was 6, which mainly involves weakness of bilateral lower limbs with some sensory disturbance in speech difficulty. Patient does have history of diabetes since 2018 which is not controlled. She has severe diabetic neuropathy, with amputation of all toes of the left foot, and amputation of the lateral 2 toes of the right foot in the past. Patient states that she used to walk with a walker, even after her left hip surgery on 05/20/2024. However since she has been in the hospital, she has not been able to walk at all, cannot even stand on her feet. Patient was evaluated by stroke neurologist, and patient received TNK. Patient states she is doing better. Offers no new complaints. It appears her neuropathy is also affecting her hands, as she cannot grab anything with her hands for last 1 mo nt. Patient has history of a stroke which affected her right side in 2019. She has some residual weakness of the right shoulder from it. She has history of "a lot of back surgeries". She had a spinal cord stimulator placed in 1998. She cannot have MRI. She had amputation of the toes of the left foot about 2 years ago. She had a left hip fracture 05/20/2024. Patient has history of smoking 1 pack/day for 35 years, quit 05/20/2024. Denies any alcohol use. Denies hypertension. Home medications Plavix 75 mg, Lipitor 80 mg, aspirin 81 mg, Pletal 50 mg twice daily and other medications. Patient has been receiving Plavix in the hospital and heparin subcu every 12 hours. Review of Systems All pertinent positive and negative review of systems mentioned in the HPI, otherwise unremarkable. Past Medical History Past Medical History: CVA/TIA, Diabetes Mellitus, GERD/Reflux, Hyperlipidemia, Hypertension, Myocardial Infarction ([place]), Vascular Disorder Additional Past Medical History / Comment(s): Right 4th & 5th toe amputation., neuropathy bilateral feet, pancreatitis X2, CVA with right sided weakness, hx left hip fracture, PAD, celiac disease, chronic low back pain, duodenitis/du odenal ulcer, hiatal hernia. , unsteady gait., see Cardiology [facility] INPT FOR LT FOOT ULCER-WAS SEEN IN WOUND CARE 03/26/23-HAS DRESSING ON FOOT Last Myocardial Infarction Date:: february 2017 History of Any Multi-Drug Resistant Organisms: None Reported Past Surgical History: Back Surgery, Cholecystectomy, Heart Catheterization With Stent, Orthopedic Surgery Additional Past Surgical History / Comment(s): Right 5th toe amputation, lumbar fusion, spinal cord stimulator in place but not working., left knee arthroscopy, EGD, PATRICIA, 3 cardiac stents, Aortoram, stent to left iliac artery. , stent right leg above the knee, right 4th toe amputation. ANGIOGRAM,m 04/11/23 left toes amputation. Past Anesthesia/Blood Transfusion Reactions: No Reported Reaction Additional Past Anesthesia/Blood Transfusion Reaction / Comment(s): . Date of Last Stent Placement:: 12/14/2021 Past Psychological History: Anxiety Smoking Status: Current every day smoker Past Alcohol Use History: None Reported Past Drug Use History: None Reported - Past Family History Father Family Medical History: Cancer, Liver Disease Additional Family Medical History / Comment(s): Idiopathic cirrhosis of liver, Liver Cancer. Mother Family Medical History: Coronary Artery Disease (CAD), Myocardial Infarction ([place]) Additional Family Medical History / Comment(s): Multiple stents. Mother at the age of 77 or 78 from [place]. Medications and Allergies Home Medications Medication Instructions Recorded Confirmed Type Atorvastatin [Lipitor] 80 mg PO HS 06/26/16 08/03/24 History Clopidogrel [Plavix] 75 mg PO DAILY 30 Days #30 tab 01/05/21 08/03/24 Rx DULoxetine HCL [Cymbalta] 60 mg PO HS 05/30/24 08/03/24 History Fenofibrate [Lofibra] 160 mg PO DAILY 05/30/24 08/03/24 History Gabapentin [Neurontin] 100 mg PO HS 05/30/24 08/03/24 History INSULIN LISPRO (humaLOG) [humaLOG] See Protocol SQ ACHS 05/30/24 08/03/24 History cilostazoL [Pletal] 50 mg PO BID 05/30/24 08/03/24 History Aspirin 81 mg PO BID #60 tab 05/31/24 08/03/24 Rx Acetaminophen Tab [Tylenol] 650 mg PO Q6HR PRN tab 08/01/24 08/03/24 Rx HYDROcodone/APAP 5-325MG [[place] 1 tab PO BID PRN #8 tab 08/01/24 08/03/24 Rx 5-325] Lactulose [Cephulac] 20 gm PO BID #360 ml 08/01/24 08/03/24 Rx Ondansetron Odt [Zofran Odt] 4 mg PO Q8HR PRN #20 tab 08/01/24 08/03/24 Rx Oxybutynin ER [Ditropan XL] 10 mg PO DAILY #30 tab 08/01/24 08/03/24 Rx Pantoprazole [Protonix] 40 mg PO DAILY #30 tab 08/01/24 08/03/24 Rx Simethicone 40 mg/0.6 ml Drops 40 mg PO QID #7 ml 08/01/24 08/03/24 Rx [Mylicon Drops] cefuroxime axetiL [Ceftin] 500 mg PO BID 7 Days #14 tab 08/01/24 08/03/24 Rx Allergies Allergy/AdvReac Type Severity Reaction Status Date / Time No Known Allergies Allergy Verified 08/03/24 18:43 Physical Examination - Vital Signs Vital Signs: Vital Signs Temp Pulse Resp BP Pulse Ox 08/30/24 01:11 98.5 F 77 16 94/51 95 08/29/24 20:16 72 17 08/29/24 19:03 98.4 F 72 17 95/47 95 08/29/24 16:19 68 96/51 08/29/24 14:22 98.0 F 67 18 113/56 94 L Intake and Output 08/29/24 08/30/24 08/30/24 22:59 06:59 14:59 Intake Total 540 Output Total 1200 1900 Balance -660 -1900 Intake: Oral 540 Output: Urine 1200 1900 Other: Voiding Method Indwelling Catheter Weight 73.6 kg Patient is a late middle-aged female, appears slightly encephalopathic but in no distress. Patient is alert awake oriented to time place and person. Speech and language functions are normal. Her mouth is very dry. Patient can name and repeat very well. No aphasia or dysarthria. Attention, concentration and fund of knowledge is adequate. On cranial nerve examination, pupils are equal, round and reacting to light, visual saeed are full on confrontation, with no neglect on double simultaneous stimulation. Extraocular muscles are intact with no nystagmus. Face is symmetric, tongue protrudes to the midline. Palatal elevation and sensation normal, hearing and shoulder shrug normal, facial sensation normal. On muscle strength testing, there is left pronator drift about 10 to 15 degree. The strength is normal in the arms except right deltoid which is very weak from previous stroke. Her both lower limbs are very weak, likely from history of diabetic neuropathy and back surgeries. She can only lift right leg about 3 to 4 inches of the bed, with some resistance and the left leg about 1 inch but cannot maintain it. Her ankles are very weak, 3+ on the right, 0 left. Deep tendon reflexes are (right/left) biceps 1/0, brachioradialis 0/0, knees trace to 1/trace to 1, cannot check plantar on the left and flat on the right. Sensory to touch is equal with no neglect on double simultaneous stimulation. Cerebellar function showed no ataxia for [id number] testing, although patient was slightly tremulous. Cannot perform [id number] testing. Tone and bulk of muscles normal. Gait deferred.. On general examination, there is no carotid bruit or murmur, S1-S2 audible. Chest is clear on consultation. Abdomen is soft nontender. No organomegaly, bowel sounds present. Peripheral pulses are not clearly felt. Results - Laboratory Findings CBC and BMP: 08/29/24 04:08 08/30/24 03:07 Abnormal Lab Findings: Abnormal Labs 08/03/24 08/03/24 08/03/24 17:52 17:52 17:52 WBC 19.35 H RBC Hgb Hct MCH MCHC RDW Plt Count 681 H D MPV 9.4 L Immature Gran # 0.15 H Neutrophils # 16.27 H Lymphocytes # Eosinophils # 0.00 L PT INR Sodium 131 L Potassium Chloride Carbon Dioxide 18 L BUN 22 H Creatinine 1.36 H Glucose 389 H POC Glucose (mg/dL) Hemoglobin A1c Plasma Lactic Acid Yousif 2.7 H* Calcium 8.0 L Phosphorus Magnesium AST Troponin I Total Protein 6.0 L Albumin 3.1 L Triglycerides Lipase Procalcitonin Urine Appearance Urine Protein Urine Glucose (UA) Urine Ketones Urine Blood Ur Leukocyte Esterase Urine RBC Urine WBC Ur Squamous Epith Cells Calcium Oxalate Crystal Urine Bacteria Urine Mucus Urine Yeast (Budding) 08/03/24 08/03/24 08/03/24 17:52 17:54 18:28 WBC RBC Hgb Hct MCH MCHC RDW Plt Count MPV Immature Gran # Neutrophils # Lymphocytes # Eosinophils # PT 13.8 H INR 1.3 H Sodium Potassium Chloride Carbon Dioxide BUN Creatinine Glucose POC Glucose (mg/dL) 415 H Hemoglobin A1c Plasma Lactic Acid Yousif Calcium Phosphorus Magnesium AST Troponin I 0.376 H* Total Protein Albumin Triglycerides Lipase Procalcitonin Urine Appearance Urine Protein Urine Glucose (UA) Urine Ketones Urine Blood Ur Leukocyte Esterase Urine RBC Urine WBC Ur Squamous Epith Cells Calcium Oxalate Crystal Urine Bacteria Urine Mucus Urine Yeast (Budding) 08/03/24 08/03/24 08/04/24 21:01 22:35 00:29 WBC RBC Hgb Hct MCH MCHC RDW Plt Count MPV Immature Gran # Neutrophils # Lymphocytes # Eosinophils # PT INR Sodium Potassium Chloride Carbon Dioxide BUN Creatinine Glucose POC Glucose (mg/dL) 428 H Hemoglobin A1c Plasma Lactic Acid Yousif 2.5 H* 4.5 H* Calcium Phosphorus Magnesium AST Troponin I Total Protein Albumin Triglycerides Lipase Procalcitonin Urine Appearance Urine Protein Urine Glucose (UA) Urine Ketones Urine Blood Ur Leukocyte Esterase Urine RBC Urine WBC Ur Squamous Epith Cells Calcium Oxalate Crystal Urine Bacteria Urine Mucus Urine Yeast (Budding) 08/04/24 08/04/24 08/04/24 00:55 01:30 02:31 WBC RBC Hgb Hct MCH MCHC RDW Plt Count MPV Immature Gran # Neutrophils # Lymphocytes # Eosinophils # PT INR Sodium Potassium Chloride Carbon Dioxide BUN Creatinine Glucose POC Glucose (mg/dL) 529 H* 451 H Hemoglobin A1c Plasma Lactic Acid Yousif Calcium Phosphorus Magnesium AST Troponin I Total Protein Albumin Triglycerides Lipase Procalcitonin Urine Appearance Cloudy H Urine Protein Trace H Urine Glucose (UA) 4+ H Urine Ketones Trace H Urine Blood Trace H Ur Leukocyte Esterase Large H Urine RBC 9 H Urine WBC 69 H Ur Squamous Epith Cells 7 H Calcium Oxalate Crystal Occasional H Urine Bacteria Rare H Urine Mucus Rare H Urine Yeast (Budding) Few H 08/04/24 08/04/24 08/04/24 03:47 04:53 06:31 WBC 11.42 H RBC 3.68 L Hgb 10.5 L Hct 31.2 L MCH MCHC RDW Plt Count MPV Immature Gran # 0.08 H Neutrophils # 10.20 H Lymphocytes # 0.60 L Eosinophils # 0.01 L PT INR Sodium Potassium Chloride Carbon Dioxide BUN Creatinine Glucose POC Glucose (mg/dL) 394 H Hemoglobin A1c Plasma Lactic Acid Yousif 3.8 H* Calcium Phosphorus Magnesium AST Troponin I Total Protein Albumin Triglycerides Lipase Procalcitonin Urine Appearance Urine Protein Urine Glucose (UA) Urine Ketones Urine Blood Ur Leukocyte Esterase Urine RBC Urine WBC Ur Squamous Epith Cells Calcium Oxalate Crystal Urine Bacteria Urine Mucus Urine Yeast (Budding) 08/04/24 08/04/24 08/04/24 06:31 06:31 06:42 WBC RBC Hgb Hct MCH MCHC RDW Plt Count MPV Immature Gran # Neutrophils # Lymphocytes # Eosinophils # PT INR Sodium Potassium 3.3 L Chloride Carbon Dioxide 19 L BUN 25 H Creatinine 1.17 H Glucose 339 H POC Glucose (mg/dL) Hemoglobin A1c 9.8 H Plasma Lactic Acid Yousif 2.7 H* Calcium 7.0 L Phosphorus Magnesium AST 44 H Troponin I Total Protein 5.1 L Albumin 2.5 L Triglycerides Lipase 21 L Procalcitonin Urine Appearance Urine Protein Urine Glucose (UA) Urine Ketones Urine Blood Ur Leukocyte Esterase Urine RBC Urine WBC Ur Squamous Epith Cells Calcium Oxalate Crystal Urine Bacteria Urine Mucus Urine Yeast (Budding) 08/04/24 08/04/24 08/04/24 07:42 10:04 10:04 WBC RBC Hgb Hct MCH MCHC RDW Plt Count MPV Immature Gran # Neutrophils # Lymphocytes # Eosinophils # PT INR Sodium Potassium Chloride Carbon Dioxide BUN Creatinine Glucose POC Glucose (mg/dL) 370 H Hemoglobin A1c Plasma Lactic Acid Yousif 3.3 H* Calcium Phosphorus Magnesium AST Troponin I Total Protein Albumin Triglycerides Lipase Procalcitonin 21.60 H Urine Appearance Urine Protein Urine Glucose (UA) Urine Ketones Urine Blood Ur Leukocyte Esterase Urine RBC Urine WBC Ur Squamous Epith Cells Calcium Oxalate Crystal Urine Bacteria Urine Mucus Urine Yeast (Budding) 08/04/24 08/04/24 08/04/24 10:41 12:35 13:07 WBC RBC Hgb Hct MCH MCHC RDW Plt Count MPV Immature Gran # Neutrophils # Lymphocytes # Eosinophils # PT INR Sodium Potassium Chloride Carbon Dioxide BUN Creatinine Glucose POC Glucose (mg/dL) 403 H 379 H Hemoglobin A1c Plasma Lactic Acid Yousif 3.2 H* Calcium Phosphorus Magnesium AST Troponin I Total Protein Albumin Triglycerides Lipase Procalcitonin Urine Appearance Urine Protein Urine Glucose (UA) Urine Ketones Urine Blood Ur Leukocyte Esterase Urine RBC Urine WBC Ur Squamous Epith Cells Calcium Oxalate Crystal Urine Bacteria Urine Mucus Urine Yeast (Budding) 08/04/24 08/04/24 08/04/24 16:00 16:22 19:00 WBC RBC Hgb Hct MCH MCHC RDW Plt Count MPV Immature Gran # Neutrophils # Lymphocytes # Eosinophils # PT INR Sodium Potassium Chloride Carbon Dioxide BUN Creatinine Glucose POC Glucose (mg/dL) 282 H Hemoglobin A1c Plasma Lactic Acid Yousif 3.4 H* 3.7 H* Calcium Phosphorus Magnesium AST Troponin I Total Protein Albumin Triglycerides Lipase Procalcitonin Urine Appearance Urine Protein Urine Glucose (UA) Urine Ketones Urine Blood Ur Leukocyte Esterase Urine RBC Urine WBC Ur Squamous Epith Cells Calcium Oxalate Crystal Urine Bacteria Urine Mucus Urine Yeast (Budding) 08/04/24 08/04/24 08/05/24 19:40 21:38 06:05 WBC RBC Hgb Hct MCH MCHC RDW Plt Count MPV Immature Gran # Neutrophils # Lymphocytes # Eosinophils # PT INR Sodium Potassium Chloride Carbon Dioxide BUN Creatinine Glucose POC Glucose (mg/dL) 211 H 187 H Hemoglobin A1c Plasma Lactic Acid Yousif 3.1 H* Calcium Phosphorus Magnesium AST Troponin I Total Protein Albumin Triglycerides Lipase Procalcitonin Urine Appearance Urine Protein Urine Glucose (UA) Urine Ketones Urine Blood Ur Leukocyte Esterase Urine RBC Urine WBC Ur Squamous Epith Cells Calcium Oxalate Crystal Urine Bacteria Urine Mucus Urine Yeast (Budding) 08/05/24 08/05/24 08/05/24 07:14 07:14 07:14 WBC RBC 3.14 L Hgb 8.8 L D Hct 26.9 L MCH MCHC RDW Plt Count MPV Immature Gran # 0.07 H Neutrophils # 8.15 H Lymphocytes # 0.82 L Eosinophils # 0.00 L PT INR Sodium Potassium Chloride 110 H Carbon Dioxide 19 L BUN 18 H Creatinine 1.14 H Glucose 189 H POC Glucose (mg/dL) Hemoglobin A1c 9.4 H Plasma Lactic Acid Yousif Calcium 7.1 L Phosphorus Magnesium AST Troponin I Total Protein 4.5 L Albumin 2.1 L Triglycerides Lipase Procalcitonin Urine Appearance Urine Protein Urine Glucose (UA) Urine Ketones Urine Blood Ur Leukocyte Esterase Urine RBC Urine WBC Ur Squamous Epith Cells Calcium Oxalate Crystal Urine Bacteria Urine Mucus Urine Yeast (Budding) 08/05/24 08/05/24 08/05/24 11:47 16:47 20:17 WBC RBC Hgb Hct MCH MCHC RDW Plt Count MPV Immature Gran # Neutrophils # Lymphocytes # Eosinophils # PT INR Sodium Potassium Chloride Carbon Dioxide BUN Creatinine Glucose POC Glucose (mg/dL) 311 H 183 H 303 H Hemoglobin A1c Plasma Lactic Acid Yousif Calcium Phosphorus Magnesium AST Troponin I Total Protein Albumin Triglycerides Lipase Procalcitonin Urine Appearance Urine Protein Urine Glucose (UA) Urine Ketones Urine Blood Ur Leukocyte Esterase Urine RBC Urine WBC Ur Squamous Epith Cells Calcium Oxalate Crystal Urine Bacteria Urine Mucus Urine Yeast (Budding) 08/06/24 08/06/24 08/06/24 05:59 11:38 14:38 WBC RBC 3.14 L Hgb 8.7 L Hct 26.3 L MCH MCHC RDW Plt Count MPV Immature Gran # 0.05 H Neutrophils # Lymphocytes # Eosinophils # 0.01 L PT INR Sodium Potassium Chloride Carbon Dioxide BUN Creatinine Glucose POC Glucose (mg/dL) 186 H 201 H Hemoglobin A1c Plasma Lactic Acid Yousif Calcium Phosphorus Magnesium AST Troponin I Total Protein Albumin Triglycerides Lipase Procalcitonin Urine Appearance Urine Protein Urine Glucose (UA) Urine Ketones Urine Blood Ur Leukocyte Esterase Urine RBC Urine WBC Ur Squamous Epith Cells Calcium Oxalate Crystal Urine Bacteria Urine Mucus Urine Yeast (Budding) 08/06/24 08/06/24 08/06/24 14:38 16:37 19:52 WBC RBC Hgb Hct MCH MCHC RDW Plt Count MPV Immature Gran # Neutrophils # Lymphocytes # Eosinophils # PT INR Sodium 136 L Potassium 3.0 L Chloride Carbon Dioxide BUN Creatinine Glucose 221 H POC Glucose (mg/dL) 307 H 283 H Hemoglobin A1c Plasma Lactic Acid Yousif Calcium 7.3 L Phosphorus Magnesium AST Troponin I Total Protein Albumin Triglycerides Lipase Procalcitonin Urine Appearance Urine Protein Urine Glucose (UA) Urine Ketones Urine Blood Ur Leukocyte Esterase Urine RBC Urine WBC Ur Squamous Epith Cells Calcium Oxalate Crystal Urine Bacteria Urine Mucus Urine Yeast (Budding) 08/06/24 08/06/24 08/06/24 21:44 22:26 22:50 WBC 17.16 H RBC 3.66 L Hgb 10.1 L Hct 30.4 L MCH MCHC RDW Plt Count MPV Immature Gran # Neutrophils # Lymphocytes # Eosinophils # PT INR Sodium Potassium Chloride Carbon Dioxide BUN Creatinine Glucose POC Glucose (mg/dL) 281 H 301 H Hemoglobin A1c Plasma Lactic Acid Yousif Calcium Phosphorus Magnesium AST Troponin I Total Protein Albumin Triglycerides Lipase Procalcitonin Urine Appearance Urine Protein Urine Glucose (UA) Urine Ketones Urine Blood Ur Leukocyte Esterase Urine RBC Urine WBC Ur Squamous Epith Cells Calcium Oxalate Crystal Urine Bacteria Urine Mucus Urine Yeast (Budding) 08/06/24 08/07/24 08/07/24 22:50 04:05 04:05 WBC 12.38 H RBC 3.31 L Hgb 9.0 L Hct 27.9 L MCH MCHC RDW Plt Count MPV Immature Gran # 0.09 H Neutrophils # 10.40 H Lymphocytes # Eosinophils # 0.00 L PT INR Sodium 135 L 134 L Potassium 3.3 L Chloride Carbon Dioxide BUN Creatinine Glucose 252 H 312 H POC Glucose (mg/dL) Hemoglobin A1c Plasma Lactic Acid Yousif Calcium 7.3 L 7.0 L Phosphorus Magnesium AST Troponin I Total Protein 4.9 L 4.5 L Albumin 2.4 L 2.2 L Triglycerides Lipase Procalcitonin Urine Appearance Urine Protein Urine Glucose (UA) Urine Ketones Urine Blood Ur Leukocyte Esterase Urine RBC Urine WBC Ur Squamous Epith Cells Calcium Oxalate Crystal Urine Bacteria Urine Mucus Urine Yeast (Budding) 08/07/24 08/07/24 08/07/24 04:05 06:26 11:31 WBC RBC Hgb Hct MCH MCHC RDW Plt Count MPV Immature Gran # Neutrophils # Lymphocytes # Eosinophils # PT INR Sodium Potassium Chloride Carbon Dioxide BUN Creatinine Glucose POC Glucose (mg/dL) 351 H 297 H Hemoglobin A1c Plasma Lactic Acid Yousif Calcium Phosphorus Magnesium 1.3 L AST Troponin I Total Protein Albumin Triglycerides Lipase Procalcitonin Urine Appearance Urine Protein Urine Glucose (UA) Urine Ketones Urine Blood Ur Leukocyte Esterase Urine RBC Urine WBC Ur Squamous Epith Cells Calcium Oxalate Crystal Urine Bacteria Urine Mucus Urine Yeast (Budding) 08/07/24 08/07/24 08/08/24 17:13 20:11 05:37 WBC 10.01 H RBC 3.13 L Hgb 8.5 L Hct 26.5 L MCH MCHC RDW Plt Count MPV Immature Gran # 0.05 H Neutrophils # Lymphocytes # Eosinophils # PT INR Sodium Potassium Chloride Carbon Dioxide BUN Creatinine Glucose POC Glucose (mg/dL) 263 H 292 H Hemoglobin A1c Plasma Lactic Acid Yousif Calcium Phosphorus Magnesium AST Troponin I Total Protein Albumin Triglycerides Lipase Procalcitonin Urine Appearance Urine Protein Urine Glucose (UA) Urine Ketones Urine Blood Ur Leukocyte Esterase Urine RBC Urine WBC Ur Squamous Epith Cells Calcium Oxalate Crystal Urine Bacteria Urine Mucus Urine Yeast (Budding) 08/08/24 08/08/24 08/08/24 05:37 06:06 11:36 WBC RBC Hgb Hct MCH MCHC RDW Plt Count MPV Immature Gran # Neutrophils # Lymphocytes # Eosinophils # PT INR Sodium 135 L Potassium Chloride Carbon Dioxide BUN Creatinine Glucose 130 H POC Glucose (mg/dL) 143 H 150 H Hemoglobin A1c Plasma Lactic Acid Yousif Calcium 7.0 L Phosphorus Magnesium 1.3 L AST Troponin I Total Protein 4.5 L Albumin 2.1 L Triglycerides Lipase Procalcitonin Urine Appearance Urine Protein Urine Glucose (UA) Urine Ketones Urine Blood Ur Leukocyte Esterase Urine RBC Urine WBC Ur Squamous Epith Cells Calcium Oxalate Crystal Urine Bacteria Urine Mucus Urine Yeast (Budding) 08/08/24 08/08/24 08/08/24 16:17 16:19 20:04 WBC RBC Hgb Hct MCH MCHC RDW Plt Count MPV Immature Gran # Neutrophils # Lymphocytes # Eosinophils # PT INR Sodium Potassium Chloride Carbon Dioxide BUN Creatinine Glucose POC Glucose (mg/dL) 210 H 193 H 155 H Hemoglobin A1c Plasma Lactic Acid Yousif Calcium Phosphorus Magnesium AST Troponin I Total Protein Albumin Triglycerides Lipase Procalcitonin Urine Appearance Urine Protein Urine Glucose (UA) Urine Ketones Urine Blood Ur Leukocyte Esterase Urine RBC Urine WBC Ur Squamous Epith Cells Calcium Oxalate Crystal Urine Bacteria Urine Mucus Urine Yeast (Budding) 08/09/24 08/09/24 08/09/24 05:53 05:53 11:19 WBC 10.93 H RBC 3.22 L Hgb 8.9 L Hct 27.6 L MCH MCHC RDW Plt Count MPV Immature Gran # 0.10 H Neutrophils # 8.19 H Lymphocytes # Eosinophils # PT INR Sodium 136 L Potassium Chloride Carbon Dioxide BUN Creatinine Glucose POC Glucose (mg/dL) 170 H Hemoglobin A1c Plasma Lactic Acid Yousif Calcium 7.4 L Phosphorus Magnesium AST Troponin I Total Protein Albumin Triglycerides Lipase Procalcitonin Urine Appearance Urine Protein Urine Glucose (UA) Urine Ketones Urine Blood Ur Leukocyte Esterase Urine RBC Urine WBC Ur Squamous Epith Cells Calcium Oxalate Crystal Urine Bacteria Urine Mucus Urine Yeast (Budding) 08/09/24 08/09/24 08/10/24 16:10 19:34 05:32 WBC RBC Hgb Hct MCH MCHC RDW Plt Count MPV Immature Gran # Neutrophils # Lymphocytes # Eosinophils # PT INR Sodium Potassium Chloride Carbon Dioxide BUN Creatinine Glucose POC Glucose (mg/dL) 138 H 141 H 112 H Hemoglobin A1c Plasma Lactic Acid Yousif Calcium Phosphorus Magnesium AST Troponin I Total Protein Albumin Triglycerides Lipase Procalcitonin Urine Appearance Urine Protein Urine Glucose (UA) Urine Ketones Urine Blood Ur Leukocyte Esterase Urine RBC Urine WBC Ur Squamous Epith Cells Calcium Oxalate Crystal Urine Bacteria Urine Mucus Urine Yeast (Budding) 08/10/24 08/10/24 08/10/24 06:29 06:29 11:16 WBC RBC 3.14 L Hgb 8.6 L Hct 27.1 L MCH MCHC 31.7 L RDW Plt Count MPV Immature Gran # 0.05 H Neutrophils # Lymphocytes # Eosinophils # 0.00 L PT INR Sodium Potassium Chloride Carbon Dioxide BUN Creatinine Glucose 102 H POC Glucose (mg/dL) 134 H Hemoglobin A1c Plasma Lactic Acid Yousif Calcium 7.6 L Phosphorus Magnesium AST Troponin I Total Protein Albumin Triglycerides Lipase Procalcitonin Urine Appearance Urine Protein Urine Glucose (UA) Urine Ketones Urine Blood Ur Leukocyte Esterase Urine RBC Urine WBC Ur Squamous Epith Cells Calcium Oxalate Crystal Urine Bacteria Urine Mucus Urine Yeast (Budding) 08/10/24 08/10/24 08/11/24 11:51 16:31 06:07 WBC RBC Hgb Hct MCH MCHC RDW Plt Count MPV Immature Gran # Neutrophils # Lymphocytes # Eosinophils # PT INR Sodium Potassium Chloride Carbon Dioxide BUN Creatinine Glucose POC Glucose (mg/dL) 131 H 113 H 165 H Hemoglobin A1c Plasma Lactic Acid Yousif Calcium Phosphorus Magnesium AST Troponin I Total Protein Albumin Triglycerides Lipase Procalcitonin Urine Appearance Urine Protein Urine Glucose (UA) Urine Ketones Urine Blood Ur Leukocyte Esterase Urine RBC Urine WBC Ur Squamous Epith Cells Calcium Oxalate Crystal Urine Bacteria Urine Mucus Urine Yeast (Budding) 08/11/24 08/11/24 08/11/24 11:31 16:31 19:55 WBC RBC Hgb Hct MCH MCHC RDW Plt Count MPV Immature Gran # Neutrophils # Lymphocytes # Eosinophils # PT INR Sodium Potassium Chloride Carbon Dioxide BUN Creatinine Glucose POC Glucose (mg/dL) 119 H 189 H 170 H Hemoglobin A1c Plasma Lactic Acid Yousif Calcium Phosphorus Magnesium AST Troponin I Total Protein Albumin Triglycerides Lipase Procalcitonin Urine Appearance Urine Protein Urine Glucose (UA) Urine Ketones Urine Blood Ur Leukocyte Esterase Urine RBC Urine WBC Ur Squamous Epith Cells Calcium Oxalate Crystal Urine Bacteria Urine Mucus Urine Yeast (Budding) 08/12/24 08/12/24 08/12/24 06:03 11:14 16:19 WBC RBC Hgb Hct MCH MCHC RDW Plt Count MPV Immature Gran # Neutrophils # Lymphocytes # Eosinophils # PT INR Sodium Potassium Chloride Carbon Dioxide BUN Creatinine Glucose POC Glucose (mg/dL) 139 H 148 H 136 H Hemoglobin A1c Plasma Lactic Acid Yousif Calcium Phosphorus Magnesium AST Troponin I Total Protein Albumin Triglycerides Lipase Procalcitonin Urine Appearance Urine Protein Urine Glucose (UA) Urine Ketones Urine Blood Ur Leukocyte Esterase Urine RBC Urine WBC Ur Squamous Epith Cells Calcium Oxalate Crystal Urine Bacteria Urine Mucus Urine Yeast (Budding) 08/12/24 08/13/24 08/13/24 19:56 06:00 11:34 WBC RBC Hgb Hct MCH MCHC RDW Plt Count MPV Immature Gran # Neutrophils # Lymphocytes # Eosinophils # PT INR Sodium Potassium Chloride Carbon Dioxide BUN Creatinine Glucose POC Glucose (mg/dL) 159 H 167 H 177 H Hemoglobin A1c Plasma Lactic Acid Yousif Calcium Phosphorus Magnesium AST Troponin I Total Protein Albumin Triglycerides Lipase Procalcitonin Urine Appearance Urine Protein Urine Glucose (UA) Urine Ketones Urine Blood Ur Leukocyte Esterase Urine RBC Urine WBC Ur Squamous Epith Cells Calcium Oxalate Crystal Urine Bacteria Urine Mucus Urine Yeast (Budding) 08/13/24 08/13/24 08/14/24 16:20 20:07 06:00 WBC RBC Hgb Hct MCH MCHC RDW Plt Count MPV Immature Gran # Neutrophils # Lymphocytes # Eosinophils # PT INR Sodium Potassium Chloride Carbon Dioxide BUN Creatinine Glucose POC Glucose (mg/dL) 160 H 166 H 155 H Hemoglobin A1c Plasma Lactic Acid Yousif Calcium Phosphorus Magnesium AST Troponin I Total Protein Albumin Triglycerides Lipase Procalcitonin Urine Appearance Urine Protein Urine Glucose (UA) Urine Ketones Urine Blood Ur Leukocyte Esterase Urine RBC Urine WBC Ur Squamous Epith Cells Calcium Oxalate Crystal Urine Bacteria Urine Mucus Urine Yeast (Budding) 08/14/24 08/14/24 08/14/24 06:57 11:11 16:21 WBC RBC Hgb Hct MCH MCHC RDW Plt Count MPV Immature Gran # Neutrophils # Lymphocytes # Eosinophils # PT INR Sodium 133 L Potassium Chloride 95 L Carbon Dioxide 32 H BUN Creatinine Glucose 127 H POC Glucose (mg/dL) 143 H 161 H Hemoglobin A1c Plasma Lactic Acid Yousif Calcium 8.3 L Phosphorus Magnesium AST Troponin I Total Protein Albumin Triglycerides Lipase Procalcitonin Urine Appearance Urine Protein Urine Glucose (UA) Urine Ketones Urine Blood Ur Leukocyte Esterase Urine RBC Urine WBC Ur Squamous Epith Cells Calcium Oxalate Crystal Urine Bacteria Urine Mucus Urine Yeast (Budding) 08/14/24 08/15/24 08/15/24 20:25 06:11 08:27 WBC 12.23 H RBC 3.29 L Hgb 8.9 L Hct 28.2 L MCH MCHC 31.6 L RDW Plt Count MPV 9.3 L Immature Gran # 0.05 H Neutrophils # 10.49 H Lymphocytes # Eosinophils # PT INR Sodium Potassium Chloride Carbon Dioxide BUN Creatinine Glucose POC Glucose (mg/dL) 182 H 191 H Hemoglobin A1c Plasma Lactic Acid Yousif Calcium Phosphorus Magnesium AST Troponin I Total Protein Albumin Triglycerides Lipase Procalcitonin Urine Appearance Urine Protein Urine Glucose (UA) Urine Ketones Urine Blood Ur Leukocyte Esterase Urine RBC Urine WBC Ur Squamous Epith Cells Calcium Oxalate Crystal Urine Bacteria Urine Mucus Urine Yeast (Budding) 08/15/24 08/15/24 08/15/24 08:27 11:43 16:20 WBC RBC Hgb Hct MCH MCHC RDW Plt Count MPV Immature Gran # Neutrophils # Lymphocytes # Eosinophils # PT INR Sodium 133 L Potassium Chloride 93 L Carbon Dioxide 33 H BUN Creatinine Glucose 166 H POC Glucose (mg/dL) 209 H 170 H Hemoglobin A1c Plasma Lactic Acid Yousif Calcium Phosphorus Magnesium AST Troponin I Total Protein Albumin Triglycerides Lipase Procalcitonin Urine Appearance Urine Protein Urine Glucose (UA) Urine Ketones Urine Blood Ur Leukocyte Esterase Urine RBC Urine WBC Ur Squamous Epith Cells Calcium Oxalate Crystal Urine Bacteria Urine Mucus Urine Yeast (Budding) 08/15/24 08/16/24 08/16/24 20:18 06:09 06:16 WBC 15.73 H RBC 3.17 L Hgb 8.5 L Hct 27.7 L MCH 26.8 L MCHC 30.7 L RDW Plt Count MPV Immature Gran # 0.07 H Neutrophils # 13.72 H Lymphocytes # Eosinophils # PT INR Sodium Potassium Chloride Carbon Dioxide BUN Creatinine Glucose POC Glucose (mg/dL) 186 H 158 H Hemoglobin A1c Plasma Lactic Acid Yousif Calcium Phosphorus Magnesium AST Troponin I Total Protein Albumin Triglycerides Lipase Procalcitonin Urine Appearance Urine Protein Urine Glucose (UA) Urine Ketones Urine Blood Ur Leukocyte Esterase Urine RBC Urine WBC Ur Squamous Epith Cells Calcium Oxalate Crystal Urine Bacteria Urine Mucus Urine Yeast (Budding) 08/16/24 08/16/24 08/16/24 06:16 11:30 16:23 WBC RBC Hgb Hct MCH MCHC RDW Plt Count MPV Immature Gran # Neutrophils # Lymphocytes # Eosinophils # PT INR Sodium Potassium Chloride Carbon Dioxide BUN 19 H Creatinine Glucose 149 H POC Glucose (mg/dL) 142 H 220 H Hemoglobin A1c Plasma Lactic Acid Yousif Calcium 8.2 L Phosphorus Magnesium AST Troponin I Total Protein Albumin Triglycerides Lipase Procalcitonin Urine Appearance Urine Protein Urine Glucose (UA) Urine Ketones Urine Blood Ur Leukocyte Esterase Urine RBC Urine WBC Ur Squamous Epith Cells Calcium Oxalate Crystal Urine Bacteria Urine Mucus Urine Yeast (Budding) 08/16/24 08/17/24 08/17/24 20:12 06:06 11:20 WBC RBC Hgb Hct MCH MCHC RDW Plt Count MPV Immature Gran # Neutrophils # Lymphocytes # Eosinophils # PT INR Sodium Potassium Chloride Carbon Dioxide BUN Creatinine Glucose POC Glucose (mg/dL) 126 H 160 H 135 H Hemoglobin A1c Plasma Lactic Acid Yousif Calcium Phosphorus Magnesium AST Troponin I Total Protein Albumin Triglycerides Lipase Procalcitonin Urine Appearance Urine Protein Urine Glucose (UA) Urine Ketones Urine Blood Ur Leukocyte Esterase Urine RBC Urine WBC Ur Squamous Epith Cells Calcium Oxalate Crystal Urine Bacteria Urine Mucus Urine Yeast (Budding) 08/17/24 08/18/24 08/18/24 16:38 05:38 11:18 WBC RBC Hgb Hct MCH MCHC RDW Plt Count MPV Immature Gran # Neutrophils # Lymphocytes # Eosinophils # PT INR Sodium Potassium Chloride Carbon Dioxide BUN Creatinine Glucose POC Glucose (mg/dL) 123 H 123 H 147 H Hemoglobin A1c Plasma Lactic Acid Yousif Calcium Phosphorus Magnesium AST Troponin I Total Protein Albumin Triglycerides Lipase Procalcitonin Urine Appearance Urine Protein Urine Glucose (UA) Urine Ketones Urine Blood Ur Leukocyte Esterase Urine RBC Urine WBC Ur Squamous Epith Cells Calcium Oxalate Crystal Urine Bacteria Urine Mucus Urine Yeast (Budding) 08/18/24 08/19/24 08/19/24 16:43 06:01 06:01 WBC RBC 3.34 L Hgb 9.1 L Hct 29.3 L MCH MCHC 31.1 L RDW Plt Count MPV Immature Gran # Neutrophils # Lymphocytes # Eosinophils # PT INR Sodium Potassium Chloride Carbon Dioxide BUN Creatinine Glucose POC Glucose (mg/dL) 117 H Hemoglobin A1c Plasma Lactic Acid Yousif Calcium 8.1 L Phosphorus Magnesium AST Troponin I Total Protein Albumin Triglycerides Lipase Procalcitonin Urine Appearance Urine Protein Urine Glucose (UA) Urine Ketones Urine Blood Ur Leukocyte Esterase Urine RBC Urine WBC Ur Squamous Epith Cells Calcium Oxalate Crystal Urine Bacteria Urine Mucus Urine Yeast (Budding) 08/19/24 08/19/24 08/20/24 18:00 21:49 00:07 WBC RBC Hgb Hct MCH MCHC RDW Plt Count MPV Immature Gran # Neutrophils # Lymphocytes # Eosinophils # PT INR Sodium Potassium Chloride Carbon Dioxide BUN Creatinine Glucose POC Glucose (mg/dL) 142 H 158 H 157 H Hemoglobin A1c Plasma Lactic Acid Yousif Calcium Phosphorus Magnesium AST Troponin I Total Protein Albumin Triglycerides Lipase Procalcitonin Urine Appearance Urine Protein Urine Glucose (UA) Urine Ketones Urine Blood Ur Leukocyte Esterase Urine RBC Urine WBC Ur Squamous Epith Cells Calcium Oxalate Crystal Urine Bacteria Urine Mucus Urine Yeast (Budding) 08/20/24 08/20/24 08/20/24 06:17 07:06 07:06 WBC RBC 3.16 L Hgb 8.7 L Hct 27.2 L MCH MCHC RDW Plt Count MPV 9.4 L Immature Gran # Neutrophils # Lymphocytes # Eosinophils # PT INR Sodium Potassium Chloride Carbon Dioxide 31 H BUN Creatinine Glucose 157 H POC Glucose (mg/dL) 169 H Hemoglobin A1c Plasma Lactic Acid Yousif Calcium 8.0 L Phosphorus Magnesium AST Troponin I Total Protein 4.6 L Albumin 2.3 L Triglycerides Lipase Procalcitonin Urine Appearance Urine Protein Urine Glucose (UA) Urine Ketones Urine Blood Ur Leukocyte Esterase Urine RBC Urine WBC Ur Squamous Epith Cells Calcium Oxalate Crystal Urine Bacteria Urine Mucus Urine Yeast (Budding) 08/20/24 08/20/24 08/20/24 11:33 16:26 23:56 WBC RBC Hgb Hct MCH MCHC RDW Plt Count MPV Immature Gran # Neutrophils # Lymphocytes # Eosinophils # PT INR Sodium Potassium Chloride Carbon Dioxide BUN Creatinine Glucose POC Glucose (mg/dL) 142 H 157 H 228 H Hemoglobin A1c Plasma Lactic Acid Yousif Calcium Phosphorus Magnesium AST Troponin I Total Protein Albumin Triglycerides Lipase Procalcitonin Urine Appearance Urine Protein Urine Glucose (UA) Urine Ketones Urine Blood Ur Leukocyte Esterase Urine RBC Urine WBC Ur Squamous Epith Cells Calcium Oxalate Crystal Urine Bacteria Urine Mucus Urine Yeast (Budding) 08/21/24 08/21/24 08/21/24 06:24 06:34 11:30 WBC RBC Hgb Hct MCH MCHC RDW Plt Count MPV Immature Gran # Neutrophils # Lymphocytes # Eosinophils # PT INR Sodium Potassium Chloride Carbon Dioxide 31 H BUN Creatinine Glucose 205 H POC Glucose (mg/dL) 226 H 256 H Hemoglobin A1c Plasma Lactic Acid Yousif Calcium 8.3 L Phosphorus Magnesium AST Troponin I Total Protein Albumin Triglycerides Lipase Procalcitonin Urine Appearance Urine Protein Urine Glucose (UA) Urine Ketones Urine Blood Ur Leukocyte Esterase Urine RBC Urine WBC Ur Squamous Epith Cells Calcium Oxalate Crystal Urine Bacteria Urine Mucus Urine Yeast (Budding) 08/21/24 08/21/24 08/21/24 18:06 20:14 23:31 WBC RBC Hgb Hct MCH MCHC RDW Plt Count MPV Immature Gran # Neutrophils # Lymphocytes # Eosinophils # PT INR Sodium Potassium Chloride Carbon Dioxide BUN Creatinine Glucose POC Glucose (mg/dL) 259 H 250 H Hemoglobin A1c Plasma Lactic Acid Yousif Calcium Phosphorus Magnesium AST Troponin I Total Protein Albumin Triglycerides Lipase Procalcitonin Urine Appearance Urine Protein Urine Glucose (UA) 4+ H Urine Ketones Urine Blood Ur Leukocyte Esterase Urine RBC Urine WBC Ur Squamous Epith Cells Calcium Oxalate Crystal Urine Bacteria Urine Mucus Urine Yeast (Budding) 08/22/24 08/22/24 08/22/24 00:57 05:35 05:35 WBC RBC 3.19 L Hgb 8.8 L Hct 28.2 L MCH MCHC 31.2 L RDW Plt Count MPV Immature Gran # 0.05 H Neutrophils # Lymphocytes # Eosinophils # PT INR Sodium Potassium Chloride Carbon Dioxide BUN Creatinine Glucose 288 H POC Glucose (mg/dL) 292 H Hemoglobin A1c Plasma Lactic Acid Yousif Calcium 8.3 L Phosphorus Magnesium AST Troponin I Total Protein 5.1 L Albumin 2.6 L Triglycerides Lipase Procalcitonin Urine Appearance Urine Protein Urine Glucose (UA) Urine Ketones Urine Blood Ur Leukocyte Esterase Urine RBC Urine WBC Ur Squamous Epith Cells Calcium Oxalate Crystal Urine Bacteria Urine Mucus Urine Yeast (Budding) 08/22/24 08/22/24 08/22/24 06:00 11:42 16:27 WBC RBC Hgb Hct MCH MCHC RDW Plt Count MPV Immature Gran # Neutrophils # Lymphocytes # Eosinophils # PT INR Sodium Potassium Chloride Carbon Dioxide BUN Creatinine Glucose POC Glucose (mg/dL) 308 H 283 H 282 H Hemoglobin A1c Plasma Lactic Acid Yousif Calcium Phosphorus Magnesium AST Troponin I Total Protein Albumin Triglycerides Lipase Procalcitonin Urine Appearance Urine Protein Urine Glucose (UA) Urine Ketones Urine Blood Ur Leukocyte Esterase Urine RBC Urine WBC Ur Squamous Epith Cells Calcium Oxalate Crystal Urine Bacteria Urine Mucus Urine Yeast (Budding) 08/22/24 08/23/24 08/23/24 20:20 05:31 05:31 WBC RBC 3.07 L Hgb 8.3 L Hct 27.1 L MCH MCHC 30.6 L RDW Plt Count MPV Immature Gran # Neutrophils # Lymphocytes # Eosinophils # PT INR Sodium 136 L Potassium Chloride Carbon Dioxide BUN Creatinine 0.49 L Glucose 233 H POC Glucose (mg/dL) 258 H Hemoglobin A1c Plasma Lactic Acid Yousif Calcium Phosphorus Magnesium AST Troponin I Total Protein Albumin Triglycerides Lipase Procalcitonin Urine Appearance Urine Protein Urine Glucose (UA) Urine Ketones Urine Blood Ur Leukocyte Esterase Urine RBC Urine WBC Ur Squamous Epith Cells Calcium Oxalate Crystal Urine Bacteria Urine Mucus Urine Yeast (Budding) 08/23/24 08/23/24 08/23/24 06:11 11:20 16:15 WBC RBC Hgb Hct MCH MCHC RDW Plt Count MPV Immature Gran # Neutrophils # Lymphocytes # Eosinophils # PT INR Sodium Potassium Chloride Carbon Dioxide BUN Creatinine Glucose POC Glucose (mg/dL) 291 H 297 H 337 H Hemoglobin A1c Plasma Lactic Acid Yousif Calcium Phosphorus Magnesium AST Troponin I Total Protein Albumin Triglycerides Lipase Procalcitonin Urine Appearance Urine Protein Urine Glucose (UA) Urine Ketones Urine Blood Ur Leukocyte Esterase Urine RBC Urine WBC Ur Squamous Epith Cells Calcium Oxalate Crystal Urine Bacteria Urine Mucus Urine Yeast (Budding) 08/23/24 08/24/24 08/24/24 20:16 06:05 06:52 WBC RBC Hgb Hct MCH MCHC RDW Plt Count MPV Immature Gran # Neutrophils # Lymphocytes # Eosinophils # PT INR Sodium 134 L Potassium Chloride Carbon Dioxide BUN 18 H Creatinine Glucose 289 H POC Glucose (mg/dL) 198 H 304 H Hemoglobin A1c Plasma Lactic Acid Yousif Calcium Phosphorus Magnesium AST Troponin I Total Protein Albumin Triglycerides Lipase Procalcitonin Urine Appearance Urine Protein Urine Glucose (UA) Urine Ketones Urine Blood Ur Leukocyte Esterase Urine RBC Urine WBC Ur Squamous Epith Cells Calcium Oxalate Crystal Urine Bacteria Urine Mucus Urine Yeast (Budding) 08/24/24 08/24/24 08/24/24 11:32 16:36 20:02 WBC RBC Hgb Hct MCH MCHC RDW Plt Count MPV Immature Gran # Neutrophils # Lymphocytes # Eosinophils # PT INR Sodium Potassium Chloride Carbon Dioxide BUN Creatinine Glucose POC Glucose (mg/dL) 198 H 148 H 121 H Hemoglobin A1c Plasma Lactic Acid Yousif Calcium Phosphorus Magnesium AST Troponin I Total Protein Albumin Triglycerides Lipase Procalcitonin Urine Appearance Urine Protein Urine Glucose (UA) Urine Ketones Urine Blood Ur Leukocyte Esterase Urine RBC Urine WBC Ur Squamous Epith Cells Calcium Oxalate Crystal Urine Bacteria Urine Mucus Urine Yeast (Budding) 08/25/24 08/25/24 08/25/24 05:39 05:39 05:39 WBC RBC 2.77 L Hgb 7.8 L Hct 24.3 L MCH MCHC RDW Plt Count MPV Immature Gran # 0.05 H Neutrophils # Lymphocytes # Eosinophils # PT INR Sodium 134 L Potassium Chloride Carbon Dioxide BUN 18 H Creatinine Glucose 251 H POC Glucose (mg/dL) Hemoglobin A1c Plasma Lactic Acid Yousif Calcium Phosphorus 4.7 H Magnesium AST Troponin I Total Protein Albumin Triglycerides Lipase Procalcitonin Urine Appearance Urine Protein Urine Glucose (UA) Urine Ketones Urine Blood Ur Leukocyte Esterase Urine RBC Urine WBC Ur Squamous Epith Cells Calcium Oxalate Crystal Urine Bacteria Urine Mucus Urine Yeast (Budding) 08/25/24 08/25/24 08/25/24 05:59 11:45 16:56 WBC RBC Hgb Hct MCH MCHC RDW Plt Count MPV Immature Gran # Neutrophils # Lymphocytes # Eosinophils # PT INR Sodium Potassium Chloride Carbon Dioxide BUN Creatinine Glucose POC Glucose (mg/dL) 270 H 230 H 216 H Hemoglobin A1c Plasma Lactic Acid Yousif Calcium Phosphorus Magnesium AST Troponin I Total Protein Albumin Triglycerides Lipase Procalcitonin Urine Appearance Urine Protein Urine Glucose (UA) Urine Ketones Urine Blood Ur Leukocyte Esterase Urine RBC Urine WBC Ur Squamous Epith Cells Calcium Oxalate Crystal Urine Bacteria Urine Mucus Urine Yeast (Budding) 08/25/24 08/26/24 08/26/24 20:09 06:01 08:18 WBC RBC Hgb Hct MCH MCHC RDW Plt Count MPV Immature Gran # Neutrophils # Lymphocytes # Eosinophils # PT INR Sodium 136 L Potassium Chloride Carbon Dioxide BUN 20 H Creatinine Glucose 217 H POC Glucose (mg/dL) 234 H 262 H Hemoglobin A1c Plasma Lactic Acid Yousif Calcium Phosphorus Magnesium AST Troponin I Total Protein Albumin Triglycerides 164.00 H Lipase Procalcitonin Urine Appearance Urine Protein Urine Glucose (UA) Urine Ketones Urine Blood Ur Leukocyte Esterase Urine RBC Urine WBC Ur Squamous Epith Cells Calcium Oxalate Crystal Urine Bacteria Urine Mucus Urine Yeast (Budding) 08/26/24 08/26/24 08/26/24 08:18 11:25 16:18 WBC RBC 2.98 L Hgb 8.4 L Hct 26.2 L MCH MCHC RDW Plt Count MPV Immature Gran # 0.05 H Neutrophils # Lymphocytes # Eosinophils # PT INR Sodium Potassium Chloride Carbon Dioxide BUN Creatinine Glucose POC Glucose (mg/dL) 238 H 238 H Hemoglobin A1c Plasma Lactic Acid Yousif Calcium Phosphorus Magnesium AST Troponin I Total Protein Albumin Triglycerides Lipase Procalcitonin Urine Appearance Urine Protein Urine Glucose (UA) Urine Ketones Urine Blood Ur Leukocyte Esterase Urine RBC Urine WBC Ur Squamous Epith Cells Calcium Oxalate Crystal Urine Bacteria Urine Mucus Urine Yeast (Budding) 08/26/24 08/27/24 08/27/24 20:02 06:01 06:06 WBC RBC Hgb Hct MCH MCHC RDW Plt Count MPV Immature Gran # Neutrophils # Lymphocytes # Eosinophils # PT INR Sodium Potassium Chloride Carbon Dioxide BUN 18 H Creatinine Glucose 180 H POC Glucose (mg/dL) 185 H 176 H Hemoglobin A1c Plasma Lactic Acid Yousif Calcium Phosphorus Magnesium AST Troponin I Total Protein Albumin Triglycerides Lipase Procalcitonin Urine Appearance Urine Protein Urine Glucose (UA) Urine Ketones Urine Blood Ur Leukocyte Esterase Urine RBC Urine WBC Ur Squamous Epith Cells Calcium Oxalate Crystal Urine Bacteria Urine Mucus Urine Yeast (Budding) 08/27/24 08/27/24 08/27/24 11:40 16:46 21:47 WBC RBC Hgb Hct MCH MCHC RDW Plt Count MPV Immature Gran # Neutrophils # Lymphocytes # Eosinophils # PT INR Sodium Potassium Chloride Carbon Dioxide BUN Creatinine Glucose POC Glucose (mg/dL) 209 H 177 H 164 H Hemoglobin A1c Plasma Lactic Acid Yousif Calcium Phosphorus Magnesium AST Troponin I Total Protein Albumin Triglycerides Lipase Procalcitonin Urine Appearance Urine Protein Urine Glucose (UA) Urine Ketones Urine Blood Ur Leukocyte Esterase Urine RBC Urine WBC Ur Squamous Epith Cells Calcium Oxalate Crystal Urine Bacteria Urine Mucus Urine Yeast (Budding) 08/28/24 08/28/24 08/28/24 04:21 06:51 11:36 WBC RBC Hgb Hct MCH MCHC RDW Plt Count MPV Immature Gran # Neutrophils # Lymphocytes # Eosinophils # PT INR Sodium Potassium Chloride Carbon Dioxide BUN 19 H Creatinine 0.48 L Glucose 198 H POC Glucose (mg/dL) 234 H 260 H Hemoglobin A1c Plasma Lactic Acid Yousif Calcium Phosphorus Magnesium AST Troponin I Total Protein Albumin Triglycerides Lipase Procalcitonin Urine Appearance Urine Protein Urine Glucose (UA) Urine Ketones Urine Blood Ur Leukocyte Esterase Urine RBC Urine WBC Ur Squamous Epith Cells Calcium Oxalate Crystal Urine Bacteria Urine Mucus Urine Yeast (Budding) 08/28/24 08/28/24 08/29/24 16:55 21:07 04:08 WBC RBC Hgb Hct MCH MCHC RDW Plt Count MPV Immature Gran # Neutrophils # Lymphocytes # Eosinophils # PT INR Sodium 134 L Potassium Chloride Carbon Dioxide BUN 25 H Creatinine 0.48 L Glucose 201 H POC Glucose (mg/dL) 228 H 230 H Hemoglobin A1c Plasma Lactic Acid Yousif Calcium Phosphorus Magnesium AST Troponin I Total Protein 5.1 L Albumin 2.6 L Triglycerides Lipase Procalcitonin Urine Appearance Urine Protein Urine Glucose (UA) Urine Ketones Urine Blood Ur Leukocyte Esterase Urine RBC Urine WBC Ur Squamous Epith Cells Calcium Oxalate Crystal Urine Bacteria Urine Mucus Urine Yeast (Budding) 08/29/24 08/29/24 08/29/24 04:08 06:20 11:43 WBC RBC 3.03 L Hgb 8.3 L Hct 27.4 L MCH MCHC 30.3 L RDW 18.2 H Plt Count MPV Immature Gran # 0.05 H Neutrophils # Lymphocytes # Eosinophils # PT INR Sodium Potassium Chloride Carbon Dioxide BUN Creatinine Glucose POC Glucose (mg/dL) 263 H 243 H Hemoglobin A1c Plasma Lactic Acid Yousif Calcium Phosphorus Magnesium AST Troponin I Total Protein Albumin Triglycerides Lipase Procalcitonin Urine Appearance Urine Protein Urine Glucose (UA) Urine Ketones Urine Blood Ur Leukocyte Esterase Urine RBC Urine WBC Ur Squamous Epith Cells Calcium Oxalate Crystal Urine Bacteria Urine Mucus Urine Yeast (Budding) 08/29/24 08/29/24 08/30/24 16:47 20:14 03:07 WBC RBC Hgb Hct MCH MCHC RDW Plt Count MPV Immature Gran # Neutrophils # Lymphocytes # Eosinophils # PT INR Sodium 134 L Potassium Chloride Carbon Dioxide 20 L BUN 36 H Creatinine Glucose 379 H POC Glucose (mg/dL) 264 H 288 H Hemoglobin A1c Plasma Lactic Acid Yousif Calcium Phosphorus Magnesium AST Troponin I Total Protein Albumin Triglycerides Lipase Procalcitonin Urine Appearance Urine Protein Urine Glucose (UA) Urine Ketones Urine Blood Ur Leukocyte Esterase Urine RBC Urine WBC Ur Squamous Epith Cells Calcium Oxalate Crystal Urine Bacteria Urine Mucus Urine Yeast (Budding) 08/30/24 08/30/24 08/30/24 06:01 06:34 07:38 WBC RBC Hgb Hct MCH MCHC RDW Plt Count MPV Immature Gran # Neutrophils # Lymphocytes # Eosinophils # PT INR Sodium Potassium Chloride Carbon Dioxide BUN Creatinine Glucose POC Glucose (mg/dL) 288 H 216 H 157 H Hemoglobin A1c Plasma Lactic Acid Yousif Calcium Phosphorus Magnesium AST Troponin I Total Protein Albumin Triglycerides Lipase Procalcitonin Urine Appearance Urine Protein Urine Glucose (UA) Urine Ketones Urine Blood Ur Leukocyte Esterase Urine RBC Urine WBC Ur Squamous Epith Cells Calcium Oxalate Crystal Urine Bacteria Urine Mucus Urine Yeast (Budding) Assessment and Plan Assessment: * Possible CVA manifesting with difficulty speaking, mild left-sided weakness. 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 Mild MR. Somewhat mobile echodensity of the aortic valve with possible vegetation. Consider PATRICIA if clinically indicated. No aortic regurgitation. Mild TR. Consult cardiology for PATRICIA. CTA head and neck showed: No significant stenosis of the brachiocephalic origins of the common or internal carotid arteries within the neck. Mild atherosclerotic calcification of the distal left vertebral artery which is dominant. No definite significant stenosis intracranially however there is mild calcification of the carotid siphons and the possibility of right carotid siphon stenosis cannot be excluded. Hemoglobin A1c 9.4 on 08/05/2024. Lipid panel. Continue Lipitor 80 mg daily (home dose). Permissive hypertension for next 24-48 hours Patient has been on Plavix 75 mg daily. Hold Plavix for [address] head in 24 hours post TNK to rule out hemorrhage. Neuro checks as per TNK protocol. Telemetry monitoring rule out any arrhythmia PT, OT, speech therapy DVT prophylaxis: Hold subcu heparin. Neurology will continue to follow. Thank you for the consult. Time with Patient: Greater than 30
--- NOTE | 2024-08-30 14:36 | P.PN ---
Subjective Progress Note Date: 08/30/24 63-year-old female with a past medical history significant for diabetes mellitus reflux hypertension hyperlipidemia HI CVA TIA previous patient noted to have history of recurrent UTI recently discharged from this hospital after receiving treatment for UTI cystitis has been brought back to the hospital concerning for generalized weakness along with mental status changes and low oxygen patient did have a low-grade fever chest x-ray with multifocal airspace opacity probably this consultation. 08/08/2024 --Patient is seen and evaluated in ICU; the patient continues to be afebrile, the patient is on 3 L nasal cannula oxygen and breathing comfortably, the Pt denies having any chest pain or worsening cough, the patient denies having any abdominal pain no vomiting or any diarrhea has been complaining about her pain medication being inadequate. Blood work reveals WBC of 10, hemoglobin of 8.5 and platelet count of 294, sodium 135, potassium 3.9, BUN/creatinine of 11/0.71 -- urine for Legionella antigen negative blood cultures so far negative sputum not collected - chest x-ray cardiomegaly pulm vascular congestion bilateral effusion progressive in nature 08/09/2024 Patient is seen and evaluated in the intensive care unit yesterday. Is resting comfortably in bed. Currently saturating at 98% on nasal cannula, 3 L. No acute distress. She is awake and alert. Blood work reveals white count 10.9, hemoglobin 8.9, hematocrit 27.6, platelet count is normal. Sodium 136, potassium 4.3, chlorides 105, CO2 26, BUN 10, and creatinine 0.58. Calcium is 7.4. Microbiology is currently negative. No chest x-ray today. Patient has been transferred out of ICU; cardiology recommending to decrease amiodarone to 200 mg daily; patient remains on Lipitor, Plavix and cilostazol; fenofibrate was discontinued; cardiology recommending Farxiga 10 mg daily and Aldactone 12.5 mg 08/10/2024 Patient is seen and evaluated and discussed with nursing staff; received IM Zyprexa for agitation and anxiety last; patient is sleepy but arousable - Vital signs reviewed afebrile patient is currently on 3 L goal oxygen admission breathing comfortably Patient white count is 8.08, creatinine 0.65 blood culture negative patient presented to the hospital with sepsis in this patient who did have a fever tachycardia elevated white count meeting criteria for SIRS/sepsis with evidence of diffuse multifocal airspace opacities will need to cover for the resistant gram-negative with the likely pathogen as the patient was recently discharged from this facility and exposed to antibiotics blood culture remains to be negative sputum has already been collected, urine for Legionella antigen negative keep bilateral heel area of the pressure to prevent any worsening of the bilateral heel pressure ulcer -patient did have resolution of the fever and white count down normalized on Zosyn will consider short course of oral antibiotic on discharge 08/11 Patient still remains mildly tachypneic but her breathing is improving slowly and gradually. Chest x-ray showing improving consolidation and improving fluid overload. Patient remains on IV Lasix with negative fluid balance Her abdomen is mildly distended, she says she has 1 bowel movement which is loose. Abdominal x-ray showing ileus. I talked to the patient about placement and she agreed to talk to the child protective services social worker for possible rehab placement upon discharge whenever ready In the meantime she remains on IV Zosyn and Levaquin. Also she is on IV Lasix 20 mg twice daily. Continued with Aldactone. 08/12 Patient lying in bed with no distress No significant dyspnea at rest, she is on 2 L oxygen She still have evidence of fluid overload she is still kept on IV Lasix 20 mg twice daily. She has almost several liters of urine output over the last 24 hours. Possible discharge in 24 to 48 hours if keeps improving 08/13 Patient is improving significantly and his breathing is improved She is kept on IV Lasix and she was making 2 to 3 L of urine output this morning, because of the benefits and significant lower in her fluid overload we will going to keep her for another 24 hours with IV Lasix No labs today, rechecking labs in the morning If she keeps improving no other new complaint may be considered for discharge 08/14 Patient still has bilateral leg swelling She is making good amount of urine output about 1 to 2 L every shift She does not want to go to rehab although she is severely weak she is adamant to go home with home care after several times we discussed with her. She has Ragland catheter in place However in the afternoon patient started develop more abdominal distention, abdominal x-ray requested as patient vomited once showing significant gaseous distention of the stomach, NG tube recommended which is ordered, Make the p atient n.p.o., surgery team also consulted Discussed with the staff of day and plant operator/shift supervisor. Continue close monitoring 08/15 Patient developed abdominal distention and vomiting and abdominal x-ray showing distended gas filled stomach and ileus NG tube was placed which helped for decompression surgical consult was obtained who recommended Reglan and lactulose which were added Also patient continued on IV Lasix and diuresing and continued on IV antibiotics with Zosyn WBC 12.2, hemoglobin 8.9 Blood pressure is soft low side up with systolic 80s to 90s Patient remains sleepy in bed still with bilateral leg edema Ragland catheter in place, NG tube in place Patient eventually does not want to go to subacute rehab with risk-benefit explained to her 08/16 Patient NG tube was removed today, abdomen less tender and distended, She still has bilateral leg swelling but they are improving Blood pressure on the soft side therefore we will switch morphine to IV Dilaudid Also Levaquin was discontinued, currently patient kept on Zosyn 08/17 Patient awake alert Leg edema significantly improved Patient still have persistent dilatation of the stomach, patient refused NG tube for decompression after risk-benefit explained Keep the patient n.p.o. Gastric dilatation seen with the KUB and the CT of the abdomen pelvis from today Discussed the case with surgery team Patient blood pressure on the low side received small bolus of IV fluid Recommend to order PICC line and nutrition consult for TPN tomorrow 08/23. Dr. Watkins took over care. Patient was complaining of abdominal pain this morning, abdominal was distended, had an episode of nausea and vomiting last night. Patient is currently on full liquid diet with TPN. Surgery evaluated, ordered x-ray abdominal 08/24/2024 Patient evaluated in follow-up on the cardiac unit. NG tube remains out as patient has been passing gas and abdomen is softer today. She is continued on full liquid diet and TPN and has had continued episodes of nausea and vomiting overnight. Abdominal xray gaseous distention of the gastric lumen and bowel. Correlate for ileus. General surgery following. Most recent blood work reveals a white blood cell count of 7.48, he open 8.3. Her sodium level is 134 BUN of 18 creatinine of 0.56 blood glucose remains elevated 200-300. 08/25/2024 Patient is seen in follow-up today continues to report significant amounts of gas and reports abdominal pain is improved and is maintained on TPN. Awaiting surgery recommendations regarding advancing diet as patient is requesting at least liquids to drink. Patient is afebrile with no reports of chest pain or shortness of breath. Patient is significantly weak, emaciated, cachectic appearing and dentures are not fitting with appearance of severe protein calorie malnutrition. Encourage patient to get up more frequently and sit in the chair and strongly recommend PT/OT therapy daily. 08/26/2024 Patient is seen in follow-up today has been started on clear liquids by general surgery and asking for advance further and will await recommendations for surgery as patient is continued on TPN. Recommend weaning TPN infectious disease following patient is continued on antibiotics and patient is reporting multiple loose stools and has been maintained on antibiotics with prolonged h ospitalization, C. difficile ordered and pending at this time. Patient to continue with local wound care of bilateral right heels as well as sacral area and recommend frequent offloading and position changes. Patient with significant weakness recommend PT/OT therapy daily and getting up out of the bed more frequently. Patient will need ECF on discharge. Discussion of possible debridement of the decubitus ulcer, although continuing with conservative management and local wound care at this time. 08/27/2024 Patient is evaluated in follow-up on the medical floor. Patient has been having multiple episodes of loose stools. Her bowel sounds are normal active at this time. She is passing gas. Diet has been advanced by general surgery. Would recommend to wean TPN off as she is tolerating increased diet. Zosyn has been completed. Sodium level today is 138. 08/28/2024 Patient evaluated today in follow up on the medical floor. Zosyn has been discontinued. She has been tolerating regular diet and recommending to discontinue the TPN and Lipids and dietary following for this. Ragland catheter remains. Continue with local wound care and pressure offloading for the sacral wound. 08/29/2024 Patient is evaluated today in follow-up in the medical floor. Patient continues to report abdominal discomfort states it is mild today and states that the increase in the IV Dilaudid as well as the addition of IV Toradol has helped her pain. She remains on liquid diet although states that the texture of food is returning her from increasing her diet to regular. Her bowel sounds remain slug maria d and her abdomen remains distended. She is still having frequent bouts of diarrhea. C. difficile is negative. Discussed increasing activity level and pressure offloading for her decubitus ulcer. ID recommending surgical debridement no plans per general surgery for this at this time. She continues with [facility] wound care. Patient continues on TPN lipids currently running at half rate and can be weaned off as patient has been tolerating some increase in diet. Patient is currently afebrile and maintaining oxygen saturations 96% on room air. 08/30/2024 Patient evaluated today in follow up. Patient was noted to have altered mentation and left facial droop. Also was having trouble finding her words. Code stroke was called. NIH score of 6. Patient had brain CT and CTA which were both negative for stroke. Received TNK and now monitored closely in the ICU. Abdomen remains distended. Patient remains on TPN/lipids. Labs today reveal a sodium level of 134 potassium 5.1, BUN of 36 creatinine of 0.65, magnesium 2.1. Troponin level was negative and her BNP was 1010. Patient did state that she felt extreme LFNC on her chest earlier this morning. EKG was unremarkable. Rayna st x-ray is unremarkable. REVIEW OF SYSTEMS: CONSTITUTIONAL: No fever, no malaise,. CARDIOVASCULAR: No chest pain, no palpitations, no syncope. PULMONARY: No shortness of breath, no cough, GASTROINTESTINAL: Reports tolerating clear liquids and would like an advancing diet, having significant amounts of gas and multiple episodes of loose dual NEUROLOGICAL: No headaches, reports continued ongoing weakness PHYSICAL EXAMINATION: GENERAL: The patient is alert and oriented x3, ill looking, elderly appearing, cachectic with significant muscle wasting noted slight left facial droop HEENT: Pupils are round and equally reacting to light. EOMI. No scleral icterus. No conjunctival pallor. Normocephalic, atraumatic. No pharyngeal erythema. No thyromegaly. CARDIOVASCULAR: S1 and S2 present. No murmurs, rubs, or gallops. PULMONARY: Chest is clear to auscultation, no wheezing or crackles. ABDOMEN: Soft, thin, less distended, positive bowel sounds. No palpable organomegaly. Nontender on palpation MUSCULOSKELETAL: No joint swelling or deformity. EXTREMITIES: No cyanosis, clubbing, or pedal edema. NEUROLOGICAL: Gross neurological examination did not reveal any focal deficits. Diffusely weak SKIN: No rashes. Assessment: Altered mental status with left facial droop and aphasia; NIH of 6 - code stroke called. Sepsis on admission from likely bilateral gram-negative pneumonia; hospital acquired Recent admission for complicated UTI Acute hypoxemic respiratory failure, currently on 3 L Resolving ileus, gastric distention post NG tube insertion for gastric decompression and the tube was removed, maintained on TPN Hypotension, secondary to sepsis/septic shock from gram-negative pneumonia on admission Bilateral heel pressure ulcer, present on admission Unstageable sacral pressure ulcer to bilateral sacral regions secondary to incontinence and multiple macerated areas as patient is immobile and mostly at bedbound. Urinary retention, abdominal/pelvis CT from previous admission remarkable for bilateral hydronephrosis, right greater than left, bladder wall thickening, and small bowel ileus, recommend indwelling Ragland catheter Acute kidney injury from ATN resolved. Elevated troponins History of hypertension currently normotensive. History of hyperlipidemia Diabetes mellitus type 2, uncontrolled with hyperglycemia history of stroke with right-sided deficit Chronic heart failure with reduced EF 35% felt to be an ischemic cardiomyopathy History of coronary artery disease with previous PCI/stents History of peripheral vascular disease with bilateral iliac and SFA stents History of left foot transmetatarsal amputation History of right 4th and 5th toe amputation on the right History of nondisplaced oblique fracture of the left greater trochanter Ongoing tobacco dependence Severe protein calorie malnutrition with a BMI of 24.0 GI prophylaxis DVT prophylaxis Full code Plan: Patient monitored in the ICU Neurology consult patient is status post tenecteplase and Plavix and subcu heparin will be held at this time Patient unable to get MRI due to spinal cord stimulator General surgery following for the ileus/gasseous distention, maintained on TPN and patient is requesting fluids or food. Advance diet as tolerated to regular. recommend weaning TPN and discontinuing NG tube to be kept out for now Patient is passing gas and having multiple episodes of loose stools maintained on antibiotics with infectious disease following. C. difficile is negative. Continue symptomatic and supportive care; antiemetics Antibiotic discontinued Continue local wound care to unstageable sacral regions as well as bilateral heels. No immediate plans for surgery but per ID, may benefit from debridement of the decubital area. Will discuss with general surgery.. Recommend frequent offloading and getting up more frequently and sitting in the chair as well as frequent position changes Patient having urinary retention and straight catheterization x 2, recommend continued indwelling Ragland catheter. Patient does have history of chronic cystitis and retention previously. Continue Lipitor Continue amiodarone Continue farxiga, aldactone, metoprolol and losartan Continue accuchecks ACHS and sliding scale insulin will increase lantus even further for improved glycemic control. Cardiology recommending f.u with Dr Lock on outpatient basis for possible cardiac catheterization and evaluation of the decreased EF found this hospital stay. [facility] on discharge when medically stable The impression and plan of care has been dictated by Jenniffer Almeida, Nurse Pr actitioner as directed. Dr. Isaias MD I have performed a history and physical examination and medical decision making of this patient, discussed the same with the dictator, and agree with the dicta tors assessment and plan as written, documented as a scribe. Based on total visit time, I have performed more than 50% of this visit. Objective - Vital Signs Vital signs: Vital Signs Temp 98.5 F 08/30/24 01:11 Pulse 77 08/30/24 01:11 Resp 16 08/30/24 01:11 BP 94/51 08/30/24 01:11 Pulse Ox 95 08/30/24 01:11 FiO2 40 08/07/24 08:11 Intake & Output 08/29/24 08/30/24 08/30/24 18:59 06:59 18:59 Intake Total 840 Output Total 1200 1900 Balance -360 -1900 Weight 73.6 kg Intake: Oral 840 Output: Urine 1200 1900 Other: Voiding Method Indwelling Catheter Indwelling Catheter - Labs CBC & Chem 7: 08/29/24 04:08 08/30/24 03:07 Labs: Abnormal Lab Results - Last 24 Hours (Table) 08/29/24 08/29/24 08/29/24 Range/Units 11:43 16:47 20:14 Sodium (137-145) mmol/L Carbon Dioxide (22-30) mmol/L BUN (7-17) mg/dL Glucose (74-99) mg/dL POC Glucose (mg/dL) 243 H 264 H 288 H (70-110) mg/dL 08/30/24 08/30/24 08/30/24 Range/Units 03:07 06:01 06:34 Sodium 134 L (137-145) mmol/L Carbon Dioxide 20 L (22-30) mmol/L BUN 36 H (7-17) mg/dL Glucose 379 H (74-99) mg/dL POC Glucose (mg/dL) 288 H 216 H (70-110) mg/dL 08/30/24 Range/Units 07:38 Sodium (137-145) mmol/L Carbon Dioxide (22-30) mmol/L BUN (7-17) mg/dL Glucose (74-99) mg/dL POC Glucose (mg/dL) 157 H (70-110) mg/dL Assessment and Plan Time with Patient: Less than 30
[2024-08-30 16:16] LABS: Glucose,Whole Blood 215 mg/dL (70-110)
--- NOTE | 2024-08-30 16:22 | P.PN ---
Subjective Progress Note Date: 08/30/24 Principal diagnosis: Reason for follow-up is fever/pneumonia Patient is a 63-year-old female with a past medical history significant for diabetes mellitus reflux hypertension hyperlipidemia ID CVA TIA previous patient noted to have history of recurrent UTI recently discharged from this hospital after receiving treatment for UTI cystitis has been brought back to the hospital concerning for generalized weakness along with mental status changes and low oxygen patient did have a low-grade fever chest x-ray with multifocal airspace opacity probably this consultation. On today's evaluation that is 08/31/2023, patient did have a temperature of 98.5 F this morning and denies having any chills, patient is on room air and breathing comfortably has been transferred to the ICU concern for possible stroke with the patient complaining of some tingling to the left lower extremity. No new or acute been obtained today Objective - Vital Signs Vital signs: Vital Signs Temp 98.5 F 08/30/24 01:11 Pulse 68 08/30/24 11:04 Resp 16 08/30/24 01:11 BP 112/84 08/30/24 11:04 Pulse Ox 95 08/30/24 01:11 FiO2 40 08/07/24 08:11 Intake & Output 08/29/24 08/30/24 08/30/24 18:59 06:59 18:59 Intake Total 840 Output Total 1200 1900 Balance -360 -1900 Weight 73.6 kg Intake: Oral 840 Output: Urine 1200 1900 Other: Voiding Method Indwelling Catheter Indwelling Catheter - Exam Middle-age female lying in bed in no distress Unlabored breathing Patient did have evidence of sacral pressure ulcer with necrotic tissue - Labs CBC & Chem 7: 08/29/24 04:08 08/30/24 03:07 Labs: Abnormal Lab Results - Last 24 Hours (Table) 08/29/24 08/29/24 08/30/24 Range/Units 16:47 20:14 03:07 Sodium 134 L (137-145) mmol/L Carbon Dioxide 20 L (22-30) mmol/L BUN 36 H (7-17) mg/dL Glucose 379 H (74-99) mg/dL POC Glucose (mg/dL) 264 H 288 H (70-110) mg/dL 08/30/24 08/30/24 08/30/24 Range/Units 06:01 06:34 07:38 Sodium (137-145) mmol/L Carbon Dioxide (22-30) mmol/L BUN (7-17) mg/dL Glucose (74-99) mg/dL POC Glucose (mg/dL) 288 H 216 H 157 H (70-110) mg/dL 08/30/24 08/30/24 Range/Units 11:56 16:15 Sodium (137-145) mmol/L Carbon Dioxide (22-30) mmol/L BUN (7-17) mg/dL Glucose (74-99) mg/dL POC Glucose (mg/dL) 193 H 215 H (70-110) mg/dL Assessment and Plan (1) Pneumonia Current Visit: Yes Status: Acute Code(s): J18.9 - PNEUMONIA, UNSPECIFIED ORGANISM SNOMED Code(s): 022962480 (2) Sepsis Current Visit: Yes Status: Acute Code(s): A41.9 - SEPSIS, UNSPECIFIED ORGANISM SNOMED Code(s): 88280760 (3) Pressure ulcer, heel, right, unstageable Current Visit: No Status: Acute Code(s): L89.610 - PRESSURE ULCER OF RIGHT HEEL, UNSTAGEABLE SNOMED Code(s): 77891551673178043 (4) Unstageable pressure ulcer of sacral region Current Visit: Yes Status: Acute Code(s): L89.150 - PRESSURE ULCER OF SACRAL REGION, UNSTAGEABLE SNOMED Code(s): 48705490022049105 Plan: 1patient presented to the hospital with sepsis in this patient who did have a fever tachycardia elevated white count meeting criteria for SIRS/sepsis with evidence of diffuse multifocal airspace opacities will need to cover for the resistant gram-negative with the likely pathogen as the patient was recently discharged from this facility and exposed to antibiotics patient completed course of antibiotic for pneumonia 2keep bilateral heel area of the pressure to prevent any worsening of the bilateral heel pressure ulcer 3patient with unstageable sacral pressure ulcer to the sacral area will benefit from surgical debridement for now we will treat with the Medihoney followed by moist dressing change daily and frequent change of position 4-patient did have resolution of her fever and patient white count is normalized and is currently being monitored closely off antibiotic therapy, currently stroke workup in progress Dictation was produced using [employer] dictation software. please excuse any grammatical, word or spelling errors. Time with Patient: Less than 30
[2024-08-30 20:55] LABS: Glucose,Whole Blood 250 mg/dL (70-110)
[2024-08-31 06:03] LABS: Basophils # (A) 0.04 10*3/uL (0.00-0.10); Basophils % (A) 0.4 %; Eosinophils # (A) 0.20 10*3/uL (0.04-0.35); Eosinophils % (A) 2.2 %; HCT 26.0 % (37.2-46.3); HGB 8.1 g/dL (12.0-15.0); Lymphocytes # (A) 1.41 10*3/uL (0.90-5.00); Lymphocytes % (A) 15.6 %; MCH 27.7 pg (27.0-32.0); MCHC 31.2 g/dL (32.0-37.0); MCV 89.0 fL (80.0-97.0); Monocytes # (A) 0.65 10*3/uL (0.20-1.00); Monocytes % (A) 7.2 %; Neutrophils # (A) 6.71 10*3/uL (1.80-7.70); Neutrophils % (A) 74.2 %; Platelet Count 298 10*3/uL (140-440); RBC 2.92 10*6/uL (4.10-5.20); RDW 18.5 % (11.5-14.5); WBC 9.05 10*3/uL (4.50-10.00)
[2024-08-31 06:18] LABS: African American GFR (CKD) >90 (>60 ml/min/1.73 sqM); Anion Gap 7 mmol/L; Blood Urea Nitrogen 28 mg/dL (7-17); Calcium 9.1 mg/dL (8.4-10.2); Carbon Dioxide 25 mmol/L (22-30); Chloride 104 mmol/L (98-107); Glucose 232 mg/dL (74-99); Magnesium 1.9 mg/dL (1.6-2.3); Non-African American GFR(CKD) >90 (>60 ml/min/1.73 sqM); Potassium 4.6 mmol/L (3.5-5.1); Sodium 136 mmol/L (137-145)
[2024-08-31 06:27] LABS: Glucose,Whole Blood 273 mg/dL (70-110)
--- NOTE | 2024-08-31 09:24 | CT ---
EXAMINATION TYPE: CT brain wo con DATE OF EXAM: 08/31/2024 COMPARISON: 08/30/2024 CLINICAL INDICATION: Female, 63 years old with history of 24 hours post TNK administration; PHH, 24 h ours post ESTEBAN CT DLP: 1156.4 mGycm Automated exposure control for dose reduction was used. Findings: The ventricles, basal cisterns and sulci over the convexities are mildly enlarged consistent with mil d generalized atrophy. There is no mass effect or shift of midline structures. There is mild decreased density in the periventricular white matter consistent with mild chronic isch emic white matter demyelination There are small calcifications in the basal ganglia bilaterally. There is no acute intra or extra-axial hemorrhage. The posterior fossa including the brainstem, fourth ventricle and cerebellar pontine angles appear no rmal. Intraorbital contents appear normal and symmetric. Visualized paranasal sinuses and mastoid air cells are well aerated. The calvarium is intact. IMPRESSION: No acute bleed or mass effect. [facility], Workstation: [email or web address] 08/31/2024 9:21 AM
--- NOTE | 2024-08-31 10:04 | P.PN ---
Subjective Progress Note Date: 08/31/24 Principal diagnosis: Ileus/gastroparesis Patient remains in the ICU. She was downgraded to stepdown status. Still being evaluated for possible left-sided CVA. No nausea or vomiting. Having bowel function. Objective - Vital Signs Vital signs: Vital Signs Temp 98.4 F 08/31/24 04:00 Pulse 64 08/31/24 07:04 Resp 17 08/31/24 07:04 BP 122/62 08/31/24 07:04 Pulse Ox 98 08/31/24 07:04 FiO2 40 08/07/24 08:11 Intake & Output 08/30/24 08/31/24 08/31/24 18:59 06:59 18:59 Intake Total 748 2479.267 143 Output Total 1750 1875 150 Balance -1002 604.267 -7 Weight 68.8 kg Intake: IV 675 75 Lactated Ringers 1,000 ml 675 75 @ 75 mls/hr IV .[id number] [facility] Rx#:[id number] Intake, IV Titration 748 1804.267 68 Amount Mvi, Adult No.4 with Vit 1056.267 K 10 ml Trace (Conc-1Ml/ Dose) 1 ml Sodium Acetate 76 meq Potassium Chloride 10 meq Calcium Gluconate 1 gm Magnesium Sulfate gm 0.5 gm Sodium Phosphate 3 mmol In Amino Acids 5 %/Dextrose 20 % 1,000 ml @ 68 mls/hr IV . BY DURATION [facility] Rx#: [id number] Sodium Acetate 76 meq 748 748 68 Potassium Chloride 10 meq Calcium Gluconate 1 gm Magnesium Sulfate gm 0.5 gm Sodium Phosphate 3 mmol In Amino Acids 5 %/ Dextrose 20 % 1,000 ml @ 68 mls/hr IV .BY DURATION [facility] Rx#:[id number] Output: Urine 1750 1875 150 Other: Voiding Method Indwelling Catheter Indwelling Catheter # Bowel Movements 1 - Exam Abdomen: Soft, nontender, nondistended - Labs CBC & Chem 7: 08/31/24 05:26 08/31/24 05:26 Labs: Abnormal Lab Results - Last 24 Hours (Table) 08/30/24 08/30/24 08/30/24 Range/Units 11:56 16:15 20:54 RBC (4.10-5.20) 10*6/uL Hgb (12.0-15.0) g/dL Hct (37.2-46.3) % MCHC (32.0-37.0) g/dL Sodium (137-145) mmol/L BUN (7-17) mg/dL Glucose (74-99) mg/dL POC Glucose (mg/dL) 193 H 215 H 250 H (70-110) mg/dL 08/31/24 08/31/24 08/31/24 Range/Units 05:26 05:26 06:25 RBC 2.92 L (4.10-5.20) 10*6/uL Hgb 8.1 L (12.0-15.0) g/dL Hct 26.0 L (37.2-46.3) % MCHC 31.2 L (32.0-37.0) g/dL Sodium 136 L (137-145) mmol/L BUN 28 H (7-17) mg/dL Glucose 232 H (74-99) mg/dL POC Glucose (mg/dL) 273 H (70-110) mg/dL Assessment and Plan (1) Ileus Narrative/Plan: Patient doing well at this time. Ileus improved. Continue regular diet. Current Visit: Yes Status: Acute Code(s): K56.7 - ILEUS, UNSPECIFIED SNOMED Code(s): 655736806
[2024-08-31] MEDS ORDERED: fentaNYL (PF) 50 MCG/ML 2 ML AMP IVP PRN (10:36)
[2024-08-31] MEDS ORDERED: MIDAZOLAM 2 MG/2 ML VIAL IV PRN (10:36)
[2024-08-31] MEDS ORDERED: BENZOCAINE SPRAY 1 EACH MM PRN (10:36)
[2024-08-31] MEDS: MAGNESIUM SULFATE-D5W PMX 1 GM in DEXTROSE/WATER 1 100ML.BAG IVPB ONE (10:37)
[2024-08-31] MEDS: CLOPIDOGREL 75 MG TAB PO SCH ×2 (10:38→13:25)
[2024-08-31] MEDS: ASPIRIN 81 MG PO SCH (10:39)
[2024-08-31 11:15] LABS: Glucose,Whole Blood 246 mg/dL (70-110)
--- NOTE | 2024-08-31 14:11 | P.PN ---
Subjective Progress Note Date: 08/31/24 HPI 63-year-old previously known to Dr. Cruz for history of CAD, triple-vessel stenting, PAD, carotid sclerosis, history of stroke hypertension dyslipidemia and tobacco smoking. July 2024 she was admitted for complicated UTI. This time she was admitted for septicemia with gram-negative pneumonia likely hospital-acquired. She had had a long and a complicated hospital stay. Currently she has been recovering from gastric ileus. Along with that she has had urinary retention, acute kidney injury, elevated troponin and bilateral pressure heel ulcers. Previously cardiology was following for type II NSTEMI and cardiomyopathy. We did notice during this admission that her LVEF to be around 35 with i nferolateral wall and anterolateral wall hypokinesia.. Her prior echo documented from 2016 showed preserved LVEF with mild concentric LVH. 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 She had a CT brain done which did not show any acute intracranial bleed or any acute changes. CT neck angiogram did not show significant obstruction or stenosis of brachiocephalic origin, common or internal carotid arteries however there was significant calcification noticed in carotid and vertebral artery. EKG shows sinus rhythm with nonspecific ST changes heart rate 75 bpm Telemetry shows sinus rhythm Labs sodium 134 potassium 5.1, BUN 36, creatinine 0.6, troponin negative, NT- proBNP 1010 08/31/2024 Still having abdominal distention, NG tube is out, tolerating liquids. Passing gas no bowel movement yet Very apprehensive about getting a PATRICIA. Abdominal also appears distended. She would be at high risk for aspiration from PATRICIA procedure therefore I would commend to wait on it and repeat surface echocardiogram to revisualize the aortic valve. Last echo was done quite a while back from 08/04/2024. Physical examination: LUNGS: Poor respiratory effort, mild crackles and rhonchi audible in bilateral bases. HEART: Regular pulses, mild systolic murmur, ABDOMEN: Mild tenderness on deep palpation, no significant distention EXTREMITIES: Mild bilateral lower extremity edema. No calf tenderness. NEUROLOGICAL: Patient is awake. There is residual neurological deficit from prior stroke. Detailed exam was not performed. Assessment: Small echodensity on aortic valve Concerns of new CVA 08/30/2024 Paroxysmal SVT, now resolved HFrEF, EF 35%, likely ischemic cardiomyopathy , not in exacerbation. New worsened LVEF when compared to echo from 2017. Acute hypoxic respiratory failure initially on BiPAP, transitioned to nasal ca nnula Pneumonia with sepsis Urinary retention and Bilateral hydronephrosis on recent hospitalization Coronary artery disease with prior triple-vessel stenting, with residual 50% in- stent stenosis in RCA stent. Lower extremity PAD status post stenting of the bilateral iliac and bilateral SFA Carotid atherosclerosis with History of stroke Diabetes mellitus type II uncontrolled with hyperglycemia, A1c 9.4 Hypertension, Dyslipidemia Tobacco use and dependence Anemia Plan: Repeat echocardiogram Sunday. If concerning plan for PATRICIA on Sunday. Plavix 75 mg daily, continue Lipitor 80 Discontinue Imdur Continue metoprolol succinate at 12.5 mg daily. Uptitrate as needed depending on heart rate and blood pressure response Continue Aldactone 12.5 mg daily, add losartan 12.5 mg daily Hold Farxiga as patient is not taking orally. Resume once patient has good oral intake. Monitor kidney function and potassium levels. Appreciate neurology recommendations Objective - Vital Signs Vital signs: Vital Signs Temp 98.4 F 08/31/24 12:00 Pulse 67 08/31/24 13:15 Resp 16 08/31/24 13:15 BP 102/62 08/31/24 13:15 Pulse Ox 96 08/31/24 13:15 FiO2 40 08/07/24 08:11 Intake & Output 08/30/24 08/31/24 08/31/24 18:59 06:59 18:59 Intake Total 748 2479.267 593 Output Total 1750 1875 790 Balance -1002 604.267 -197 Weight 68.8 kg Intake: IV 675 525 Lactated Ringers 1,000 ml 675 525 @ 75 mls/hr IV .[id number] [facility] Rx#:[id number] Intake, IV Titration 748 1804.267 68 Amount Mvi, Adult No.4 with Vit 1056.267 K 10 ml Trace (Conc-1Ml/ Dose) 1 ml Sodium Acetate 76 meq Potassium Chloride 10 meq Calcium Gluconate 1 gm Magnesium Sulfate gm 0.5 gm Sodium Phosphate 3 mmol In Amino Acids 5 %/Dextrose 20 % 1,000 ml @ 68 mls/hr IV . BY DURATION [facility] Rx#: [id number] Sodium Acetate 76 meq 748 748 68 Potassium Chloride 10 meq Calcium Gluconate 1 gm Magnesium Sulfate gm 0.5 gm Sodium Phosphate 3 mmol In Amino Acids 5 %/ Dextrose 20 % 1,000 ml @ 68 mls/hr IV .BY DURATION [facility] Rx#:[id number] Output: Urine 1750 1875 790 Other: Voiding Method Indwelling Catheter Indwelling Catheter Indwelling Catheter # Bowel Movements 1 1 - Labs CBC & Chem 7: 08/31/24 05:26 08/31/24 05:26 Labs: Abnormal Lab Results - Last 24 Hours (Table) 08/30/24 08/30/24 08/31/24 Range/Units 16:15 20:54 05:26 RBC (4.10-5.20) 10*6/uL Hgb (12.0-15.0) g/dL Hct (37.2-46.3) % MCHC (32.0-37.0) g/dL Sodium 136 L (137-145) mmol/L BUN 28 H (7-17) mg/dL Glucose 232 H (74-99) mg/dL POC Glucose (mg/dL) 215 H 250 H (70-110) mg/dL 08/31/24 08/31/24 08/31/24 Range/Units 05:26 06:25 11:14 RBC 2.92 L (4.10-5.20) 10*6/uL Hgb 8.1 L (12.0-15.0) g/dL Hct 26.0 L (37.2-46.3) % MCHC 31.2 L (32.0-37.0) g/dL Sodium (137-145) mmol/L BUN (7-17) mg/dL Glucose (74-99) mg/dL POC Glucose (mg/dL) 273 H 246 H (70-110) mg/dL
--- NOTE | 2024-08-31 14:40 | P.PN ---
Subjective Progress Note Date: 08/31/24 Principal diagnosis: Reason for follow-up is fever/pneumonia Patient is a 63-year-old female with a past medical history significant for diabetes mellitus reflux hypertension hyperlipidemia NM CVA TIA previous patient noted to have history of recurrent UTI recently discharged from this hospital after receiving treatment for UTI cystitis has been brought back to the hospital concerning for generalized weakness along with mental status changes and low oxygen patient did have a low-grade fever chest x-ray with multifocal airspace opacity probably this consultation. On today's evaluation that is 08/31/2024, Patient is afebrile patient is currently on 2 L nasal oxygen and denies having any shortness of breath, the patient denies any chest pain or cough, the patient denies any nausea vomiting abdominal pain did have a bowel movement. Patient white count is 9.05, creatinine 0.52 blood culture has been negative Objective - Vital Signs Vital signs: Vital Signs Temp 98.4 F 08/31/24 12:00 Pulse 67 08/31/24 13:15 Resp 16 08/31/24 13:15 BP 102/62 08/31/24 13:15 Pulse Ox 96 08/31/24 13:15 FiO2 40 08/07/24 08:11 Intake & Output 08/30/24 08/31/24 08/31/24 18:59 06:59 18:59 Intake Total 748 2479.267 593 Output Total 1750 1875 790 Balance -1002 604.267 -197 Weight 68.8 kg Intake: IV 675 525 Lactated Ringers 1,000 ml 675 525 @ 75 mls/hr IV .[id number] [facility] Rx#:[id number] Intake, IV Titration 748 1804.267 68 Amount Mvi, Adult No.4 with Vit 1056.267 K 10 ml Trace (Conc-1Ml/ Dose) 1 ml Sodium Acetate 76 meq Potassium Chloride 10 meq Calcium Gluconate 1 gm Magnesium Sulfate gm 0.5 gm Sodium Phosphate 3 mmol In Amino Acids 5 %/Dextrose 20 % 1,000 ml @ 68 mls/hr IV . BY DURATION [facility] Rx#: [id number] Sodium Acetate 76 meq 748 748 68 Potassium Chloride 10 meq Calcium Gluconate 1 gm Magnesium Sulfate gm 0.5 gm Sodium Phosphate 3 mmol In Amino Acids 5 %/ Dextrose 20 % 1,000 ml @ 68 mls/hr IV .BY DURATION [facility] Rx#:[id number] Output: Urine 0560 2513 790 Other: Voiding Method Indwelling Catheter Indwelling Catheter Indwelling Catheter # Bowel Movements 1 1 - Exam Middle-age female lying in bed in no distress Unlabored breathing Patient did have evidence of sacral pressure ulcer with necrotic tissue - Labs CBC & Chem 7: 08/31/24 05:26 08/31/24 05:26 Labs: Abnormal Lab Results - Last 24 Hours (Table) 08/30/24 08/30/24 08/31/24 Range/Units 16:15 20:54 05:26 RBC (4.10-5.20) 10*6/uL Hgb (12.0-15.0) g/dL Hct (37.2-46.3) % MCHC (32.0-37.0) g/dL Sodium 136 L (137-145) mmol/L BUN 28 H (7-17) mg/dL Glucose 232 H (74-99) mg/dL POC Glucose (mg/dL) 215 H 250 H (70-110) mg/dL 08/31/24 08/31/24 08/31/24 Range/Units 05:26 06:25 11:14 RBC 2.92 L (4.10-5.20) 10*6/uL Hgb 8.1 L (12.0-15.0) g/dL Hct 26.0 L (37.2-46.3) % MCHC 31.2 L (32.0-37.0) g/dL Sodium (137-145) mmol/L BUN (7-17) mg/dL Glucose (74-99) mg/dL POC Glucose (mg/dL) 273 H 246 H (70-110) mg/dL Assessment and Plan (1) Pneumonia Current Visit: Yes Status: Acute Code(s): J18.9 - PNEUMONIA, UNSPECIFIED ORGANISM SNOMED Code(s): 451902161 (2) Sepsis Current Visit: Yes Status: Acute Code(s): A41.9 - SEPSIS, UNSPECIFIED ORGANISM SNOMED Code(s): 51785285 (3) Pressure ulcer, heel, right, unstageable Current Visit: No Status: Acute Code(s): L89.610 - PRESSURE ULCER OF RIGHT HEEL, UNSTAGEABLE SNOMED Code(s): 77987441449128738 (4) Unstageable pressure ulcer of sacral region Current Visit: Yes Status: Acute Code(s): L89.150 - PRESSURE ULCER OF SACRAL REGION, UNSTAGEABLE SNOMED Code(s): 17703841397400933 Plan: 1patient presented to the hospital with sepsis in this patient who did have a fever tachycardia elevated white count meeting criteria for SIRS/sepsis with evidence of diffuse multifocal airspace opacities will need to cover for the resistant gram-negative with the likely pathogen as the patient was recently discharged from this facility and exposed to antibiotics patient completed c ourse of antibiotic for pneumonia 2keep bilateral heel area of the pressure to prevent any worsening of the bilateral heel pressure ulcer 3patient with unstageable sacral pressure ulcer to the sacral area will benefit from surgical debridement for now we will treat with the Medihoney followed by moist dressing change daily and frequent change of position 4-patient did have resolution of her fever and patient white count is normalized we will continue monitor closely off antibiotics are refusing nystatin swish and swallow will be discontinued Dictation was produced using [employer] dictation software. please excuse any grammatical, word or spelling errors. Time with Patient: Less than 30
--- NOTE | 2024-08-31 15:33 | P.PN ---
Subjective Progress Note Date: 08/31/24 63-year-old female with a past medical history significant for diabetes mellitus reflux hypertension hyperlipidemia ME CVA TIA previous patient noted to have history of recurrent UTI recently discharged from this hospital after receiving treatment for UTI cystitis has been brought back to the hospital concerning for generalized weakness along with mental status changes and low oxygen patient did have a low-grade fever chest x-ray with multifocal airspace opacity probably this consultation. 08/08/2024 --Patient is seen and evaluated in ICU; the patient continues to be afebrile, the patient is on 3 L nasal cannula oxygen and breathing comfortably, the Pt denies having any chest pain or worsening cough, the patient denies having any abdominal pain no vomiting or any diarrhea has been complaining about her pain medication being inadequate. Blood work reveals WBC of 10, hemoglobin of 8.5 and platelet count of 294, sodium 135, potassium 3.9, BUN/creatinine of 11/0.71 -- urine for Legionella antigen negative blood cultures so far negative sputum not collected - chest x-ray cardiomegaly pulm vascular congestion bilateral effusion progressive in nature 08/09/2024 Patient is seen and evaluated in the intensive care unit yesterday. Is resting comfortably in bed. Currently saturating at 98% on nasal cannula, 3 L. No acute distress. She is awake and alert. Blood work reveals white count 10.9, hemoglobin 8.9, hematocrit 27.6, platelet count is normal. Sodium 136, potassium 4.3, chlorides 105, CO2 26, BUN 10, and creatinine 0.58. Calcium is 7.4. Microbiology is currently negative. No chest x-ray today. Patient has been transferred out of ICU; cardiology recommending to decrease amiodarone to 200 mg daily; patient remains on Lipitor, Plavix and cilostazol; fenofibrate was discontinued; cardiology recommending Farxiga 10 mg daily and Aldactone 12.5 mg 08/10/2024 Patient is seen and evaluated and discussed with nursing staff; received IM Zyprexa for agitation and anxiety last; patient is sleepy but arousable - Vital signs reviewed afebrile patient is currently on 3 L goal oxygen admission breathing comfortably Patient white count is 8.08, creatinine 0.65 blood culture negative patient presented to the hospital with sepsis in this patient who did have a fever tachycardia elevated white count meeting criteria for SIRS/sepsis with evidence of diffuse multifocal airspace opacities will need to cover for the resistant gram-negative with the likely pathogen as the patient was recently discharged from this facility and exposed to antibiotics blood culture remains to be negative sputum has already been collected, urine for Legionella antigen negative keep bilateral heel area of the pressure to prevent any worsening of the bilateral heel pressure ulcer -patient did have resolution of the fever and white count down normalized on Zosyn will consider short course of oral antibiotic on discharge 08/11 Patient still remains mildly tachypneic but her breathing is improving slowly and gradually. Chest x-ray showing improving consolidation and improving fluid overload. Patient remains on IV Lasix with negative fluid balance Her abdomen is mildly distended, she says she has 1 bowel movement which is loose. Abdominal x-ray showing ileus. I talked to the patient about placement and she agreed to talk to the social problems specialist for possible rehab placement upon discharge whenever ready In the meantime she remains on IV Zosyn and Levaquin. Also she is on IV Lasix 20 mg twice daily. Continued with Aldactone. 08/12 Patient lying in bed with no distress No significant dyspnea at rest, she is on 2 L oxygen She still have evidence of fluid overload she is still kept on IV Lasix 20 mg twice daily. She has almost several liters of urine output over the last 24 hours. Possible discharge in 24 to 48 hours if keeps improving 08/13 Patient is improving significantly and his breathing is improved She is kept on IV Lasix and she was making 2 to 3 L of urine output this morning, because of the benefits and significant lower in her fluid overload we will going to keep her for another 24 hours with IV Lasix No labs today, rechecking labs in the morning If she keeps improving no other new complaint may be considered for discharge 08/14 Patient still has bilateral leg swelling She is making good amount of urine output about 1 to 2 L every shift She does not want to go to rehab although she is severely weak she is adamant to go home with home care after several times we discussed with her. She has Ragland catheter in place However in the afternoon patient started develop more abdominal distention, abdominal x-ray requested as patient vomited once showing significant gaseous distention of the stomach, NG tube recommended which is ordered, Make the p atient n.p.o., surgery team also consulted Discussed with the staff of day and [employer] operator. Continue close monitoring 08/15 Patient developed abdominal distention and vomiting and abdominal x-ray showing distended gas filled stomach and ileus NG tube was placed which helped for decompression surgical consult was obtained who recommended Reglan and lactulose which were added Also patient continued on IV Lasix and diuresing and continued on IV antibiotics with Zosyn WBC 12.2, hemoglobin 8.9 Blood pressure is soft low side up with systolic 80s to 90s Patient remains sleepy in bed still with bilateral leg edema Ragland catheter in place, NG tube in place Patient eventually does not want to go to subacute rehab with risk-benefit explained to her 08/16 Patient NG tube was removed today, abdomen less tender and distended, She still has bilateral leg swelling but they are improving Blood pressure on the soft side therefore we will switch morphine to IV Dilaudid Also Levaquin was discontinued, currently patient kept on Zosyn 08/17 Patient awake alert Leg edema significantly improved Patient still have persistent dilatation of the stomach, patient refused NG tube for decompression after risk-benefit explained Keep the patient n.p.o. Gastric dilatation seen with the KUB and the CT of the abdomen pelvis from today Discussed the case with surgery team Patient blood pressure on the low side received small bolus of IV fluid Recommend to order PICC line and nutrition consult for TPN tomorrow 08/23. Dr. Watkins took over care. Patient was complaining of abdominal pain this morning, abdominal was distended, had an episode of nausea and vomiting last night. Patient is currently on full liquid diet with TPN. Surgery evaluated, ordered x-ray abdominal 08/24/2024 Patient evaluated in follow-up on the cardiac unit. NG tube remains out as patient has been passing gas and abdomen is softer today. She is continued on full liquid diet and TPN and has had continued episodes of nausea and vomiting overnight. Abdominal xray gaseous distention of the gastric lumen and bowel. Correlate for ileus. General surgery following. Most recent blood work reveals a white blood cell count of 7.48, he open 8.3. Her sodium level is 134 BUN of 18 creatinine of 0.56 blood glucose remains elevated 200-300. 08/25/2024 Patient is seen in follow-up today continues to report significant amounts of gas and reports abdominal pain is improved and is maintained on TPN. Awaiting surgery recommendations regarding advancing diet as patient is requesting at least liquids to drink. Patient is afebrile with no reports of chest pain or shortness of breath. Patient is significantly weak, emaciated, cachectic appearing and dentures are not fitting with appearance of severe protein calorie malnutrition. Encourage patient to get up more frequently and sit in the chair and strongly recommend PT/OT therapy daily. 08/26/2024 Patient is seen in follow-up today has been started on clear liquids by general surgery and asking for advance further and will await recommendations for surgery as patient is continued on TPN. Recommend weaning TPN infectious disease following patient is continued on antibiotics and patient is reporting multiple loose stools and has been maintained on antibiotics with prolonged h ospitalization, C. difficile ordered and pending at this time. Patient to continue with local wound care of bilateral right heels as well as sacral area and recommend frequent offloading and position changes. Patient with significant weakness recommend PT/OT therapy daily and getting up out of the bed more frequently. Patient will need ECF on discharge. Discussion of possible debridement of the decubitus ulcer, although continuing with conservative management and local wound care at this time. 08/27/2024 Patient is evaluated in follow-up on the medical floor. Patient has been having multiple episodes of loose stools. Her bowel sounds are normal active at this time. She is passing gas. Diet has been advanced by general surgery. Would recommend to wean TPN off as she is tolerating increased diet. Zosyn has been completed. Sodium level today is 138. 08/28/2024 Patient evaluated today in follow up on the medical floor. Zosyn has been discontinued. She has been tolerating regular diet and recommending to discontinue the TPN and Lipids and dietary following for this. Ragland catheter remains. Continue with local wound care and pressure offloading for the sacral wound. 08/29/2024 Patient is evaluated today in follow-up in the medical floor. Patient continues to report abdominal discomfort states it is mild today and states that the increase in the IV Dilaudid as well as the addition of IV Toradol has helped her pain. She remains on liquid diet although states that the texture of food is returning her from increasing her diet to regular. Her bowel sounds remain slug maria d and her abdomen remains distended. She is still having frequent bouts of diarrhea. C. difficile is negative. Discussed increasing activity level and pressure offloading for her decubitus ulcer. ID recommending surgical debridement no plans per general surgery for this at this time. She continues with [facility] local wound care. Patient continues on TPN lipids currently running at half rate and can be weaned off as patient has been tolerating some increase in diet. Patient is currently afebrile and maintaining oxygen saturations 96% on room air. 08/30/2024 Patient evaluated today in follow up. Patient was noted to have altered mentation and left facial droop. Also was having trouble finding her words. Code stroke was called. NIH score of 6. Patient had brain CT and CTA which were both negative for stroke. Received TNK and now monitored closely in the ICU. Abdomen remains distended. Patient remains on TPN/lipids. Labs today reveal a sodium level of 134 potassium 5.1, BUN of 36 creatinine of 0.65, magnesium 2.1. Troponin level was negative and her BNP was 1010. Patient did state that she felt extreme LFNC on her chest earlier this morning. EKG was unremarkable. Rayna st x-ray is unremarkable. 08/31/2024 Patient is evaluated in follow-up in the intensive care unit. Her repeat brain CT 24 hours post TNK reveals no stroke mass effect or bleed. She is awake alert and oriented. Her left-sided facial droop appears to be improving. She is tolerating some diet. Her abdomen does remain distended. She has hypoactive bowel sounds. She remains on TPN lipids currently running at 60 mL/h. Local wound care for the decubitus ulceration. REVIEW OF SYSTEMS: CONSTITUTIONAL: No fever, no malaise,. CARDIOVASCULAR: No chest pain, no palpitations, no syncope. PULMONARY: No shortness of breath, no cough, GASTROINTESTINAL: Reports tolerating clear liquids and would like an advancing diet, having significant amounts of gas and multiple episodes of loose dual NEUROLOGICAL: No headaches, reports continued ongoing weakness PHYSICAL EXAMINATION: GENERAL: The patient is alert and oriented x3, ill looking, elderly appearing, cachectic with significant muscle wasting noted slight left facial droop HEENT: Pupils are round and equally reacting to light. EOMI. No scleral icterus. No conjunctival pallor. Normocephalic, atraumatic. No pharyngeal erythema. No thyromegaly. CARDIOVASCULAR: S1 and S2 present. No murmurs, rubs, or gallops. PULMONARY: Chest is clear to auscultation, no wheezing or crackles. ABDOMEN: Soft, thin, less distended, positive bowel sounds. No palpable organomegaly. Nontender on palpation MUSCULOSKELETAL: No joint swelling or deformity. EXTREMITIES: No cyanosis, clubbing, or pedal edema. NEUROLOGICAL: Gross neurological examination did not reveal any focal deficits. Diffusely weak SKIN: No rashes. Assessment: Altered mental status with left facial droop and aphasia; NIH of 6 - code stroke called. Sepsis on admission from likely bilateral gram-negative pneumonia; hospital acquired Recent admission for complicated UTI Acute hypoxemic respiratory failure, currently on 3 L Resolving ileus, gastric distention post NG tube insertion for gastric decompression and the tube was removed, maintained on TPN Hypotension, secondary to sepsis/septic shock from gram-negative pneumonia on admission Bilateral heel pressure ulcer, present on admission Unstageable sacral pressure ulcer to bilateral sacral regions secondary to incontinence and multiple macerated areas as patient is immobile and mostly at bedbound. Urinary retention, abdominal/pelvis CT from previous admission remarkable for bilateral hydronephrosis, right greater than left, bladder wall thickening, and small bowel ileus, recommend indwelling Ragland catheter Acute kidney injury from ATN resolved. Elevated troponins History of hypertension currently normotensive. History of hyperlipidemia Diabetes mellitus type 2, uncontrolled with hyperglycemia history of stroke with right-sided deficit Chronic heart failure with reduced EF 35% felt to be an ischemic cardiomyopathy History of coronary artery disease with previous PCI/stents History of peripheral vascular disease with bilateral iliac and SFA stents History of left foot transmetatarsal amputation History of right 4th and 5th toe amputation on the right History of nondisplaced oblique fracture of the left greater trochanter Ongoing tobacco dependence Severe protein calorie malnutrition with a BMI of 24.0 GI prophylaxis DVT prophylaxis Full code Plan: Patient monitored in the ICU Neurology consult patient is status post tenecteplase and Plavix and subcu heparin will be held at this time Patient unable to get MRI due to spinal cord stimulator General surgery following for the ileus/gasseous distention, maintained on TPN/lipids. NG remains discontinued. Abdomen remains distended Patient is passing gas and having multiple episodes of loose stools maintained on antibiotics with infectious disease following. C. difficile is negative. Continue symptomatic and supportive care; antiemetics Antibiotic discontinued Continue local wound care to unstageable sacral regions as well as bilateral heels. No immediate plans for surgery but per ID, may benefit from debridement of the decubital area. Will discuss with general surgery.. Recommend frequent offloading and getting up more frequently and sitting in the chair as well as frequent position changes Patient having urinary retention and straight catheterization x 2, recommend continued indwelling Ragland catheter. Patient does have history of chronic cystitis and retention previously. Continue Lipitor Continue amiodarone Continue farxiga, aldactone, metoprolol and losartan Continue accuchecks ACHS and sliding scale insulin will increase lantus even further for improved glycemic control. Cardiology recommending f.u with Dr Lock on outpatient basis for possible cardiac catheterization and evaluation of the decreased EF found this hospital stay. Patient will have repeat echocardiogram on sunday and possible PATRICIA on sunday [facility] on discharge when medically stable The impression and plan of care has been dictated by Jenniffer Almeida, Nurse Practitioner as directed. Dr. Isaias MD I have performed a history and physical examination and medical decision making of this patient, discussed the same with the dictator, and agree with the dictators assessment and plan as written, documented as a scribe. Based on total visit time, I have performed more than 50% of this visit. Objective - Vital Signs Vital signs: Vital Signs Temp 98.4 F 08/31/24 12:00 Pulse 67 08/31/24 13:15 Resp 16 08/31/24 13:15 BP 102/62 08/31/24 13:15 Pulse Ox 96 08/31/24 13:15 FiO2 40 08/07/24 08:11 Intake & Output 08/30/24 08/31/24 08/31/24 18:59 06:59 18:59 Intake Total 748 2479.267 593 Output Total 1750 1875 790 Balance -1002 604.267 -197 Weight 68.8 kg Intake: IV 675 525 Lactated Ringers 1,000 ml 675 525 @ 75 mls/hr IV .[id number] [facility] Rx#:[id number] Intake, IV Titration 748 1804.267 68 Amount Mvi, Adult No.4 with Vit 1056.267 K 10 ml Trace (Conc-1Ml/ Dose) 1 ml Sodium Acetate 76 meq Potassium Chloride 10 meq Calcium Gluconate 1 gm Magnesium Sulfate gm 0.5 gm Sodium Phosphate 3 mmol In Amino Acids 5 %/Dextrose 20 % 1,000 ml @ 68 mls/hr IV . BY DURATION [facility] Rx#: [id number] Sodium Acetate 76 meq 748 748 68 Potassium Chloride 10 meq Calcium Gluconate 1 gm Magnesium Sulfate gm 0.5 gm Sodium Phosphate 3 mmol In Amino Acids 5 %/ Dextrose 20 % 1,000 ml @ 68 mls/hr IV .BY DURATION [facility] Rx#:[id number] Output: Urine 1750 1875 790 Other: Voiding Method Indwelling Catheter Indwelling Catheter Indwelling Catheter # Bowel Movements 1 1 - Labs CBC & Chem 7: 08/31/24 05:26 08/31/24 05:26 Labs: Abnormal Lab Results - Last 24 Hours (Table) 08/30/24 08/30/24 08/31/24 Range/Units 16:15 20:54 05:26 RBC (4.10-5.20) 10*6/uL Hgb (12.0-15.0) g/dL Hct (37.2-46.3) % MCHC (32.0-37.0) g/dL Sodium 136 L (137-145) mmol/L BUN 28 H (7-17) mg/dL Glucose 232 H (74-99) mg/dL POC Glucose (mg/dL) 215 H 250 H (70-110) mg/dL 08/31/24 08/31/24 08/31/24 Range/Units 05:26 06:25 11:14 RBC 2.92 L (4.10-5.20) 10*6/uL Hgb 8.1 L (12.0-15.0) g/dL Hct 26.0 L (37.2-46.3) % MCHC 31.2 L (32.0-37.0) g/dL Sodium (137-145) mmol/L BUN (7-17) mg/dL Glucose (74-99) mg/dL POC Glucose (mg/dL) 273 H 246 H (70-110) mg/dL Assessment and Plan Time with Patient: Less than 30
[2024-08-31 16:30] LABS: Glucose,Whole Blood 230 mg/dL (70-110)
[2024-08-31] MEDS: [UNRECOGNIZED DRUG - REMARK] IV SCH (17:05)
[2024-08-31 20:21] LABS: Glucose,Whole Blood 180 mg/dL (70-110)
[2024-08-31] MEDS: INSULIN GLARGINE (LANTUS) 100 UNIT/ML SYR SQ SCH (20:29)
--- NOTE | 2024-09-01 00:18 | P.PN ---
Subjective Progress Note Date: 08/31/24 patient was seen for a follow-up. Patient is reclining comfortably in the bed. She states that she is feeling better, just received pain shot. No new focal symptoms. Patient complains of pain in the hip area and lower back. Objective - Vital Signs Vital signs: Vital Signs Temp 98.4 F 08/31/24 12:00 Pulse 67 08/31/24 13:15 Resp 16 08/31/24 13:15 BP 102/62 08/31/24 13:15 Pulse Ox 96 08/31/24 13:15 FiO2 40 08/07/24 08:11 Intake & Output 08/30/24 08/31/24 08/31/24 18:59 06:59 18:59 Intake Total 748 2479.267 593 Output Total 1750 1875 790 Balance -1002 604.267 -197 Weight 68.8 kg Intake: IV 675 525 Lactated Ringers 1,000 ml 675 525 @ 75 mls/hr IV .[id number] [facility] Rx#:[id number] Intake, IV Titration 748 1804.267 68 Amount Mvi, Adult No.4 with Vit 1056.267 K 10 ml Trace (Conc-1Ml/ Dose) 1 ml Sodium Acetate 76 meq Potassium Chloride 10 meq Calcium Gluconate 1 gm Magnesium Sulfate gm 0.5 gm Sodium Phosphate 3 mmol In Amino Acids 5 %/Dextrose 20 % 1,000 ml @ 68 mls/hr IV . BY DURATION [facility] Rx#: [id number] Sodium Acetate 76 meq 748 748 68 Potassium Chloride 10 meq Calcium Gluconate 1 gm Magnesium Sulfate gm 0.5 gm Sodium Phosphate 3 mmol In Amino Acids 5 %/ Dextrose 20 % 1,000 ml @ 68 mls/hr IV .BY DURATION [facility] Rx#:[id number] Output: Urine 1750 1875 790 Other: Voiding Method Indwelling Catheter Indwelling Catheter Indwelling Catheter # Bowel Movements 1 1 - Exam patient is alert and awake. She appears mildly encephalopathic. Speech and language functions are normal. There is no facial droop. No pronator drift. Rest of the examination is unchanged. - Labs CBC & Chem 7: 08/31/24 05:26 08/31/24 05:26 Labs: Abnormal Lab Results - Last 24 Hours (Table) 08/30/24 08/30/24 08/31/24 Range/Units 16:15 20:54 05:26 RBC (4.10-5.20) 10*6/uL Hgb (12.0-15.0) g/dL Hct (37.2-46.3) % MCHC (32.0-37.0) g/dL Sodium 136 L (137-145) mmol/L BUN 28 H (7-17) mg/dL Glucose 232 H (74-99) mg/dL POC Glucose (mg/dL) 215 H 250 H (70-110) mg/dL 08/31/24 08/31/24 08/31/24 Range/Units 05:26 06:25 11:14 RBC 2.92 L (4.10-5.20) 10*6/uL Hgb 8.1 L (12.0-15.0) g/dL Hct 26.0 L (37.2-46.3) % MCHC 31.2 L (32.0-37.0) g/dL Sodium (137-145) mmol/L BUN (7-17) mg/dL Glucose (74-99) mg/dL POC Glucose (mg/dL) 273 H 246 H (70-110) mg/dL Assessment and Plan Assessment: * Possible stroke/TIA manifesting with difficulty speaking, mild left-sided weakness. Symptoms seems to have resolved. 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 Mild MR. Somewhat mobile echodensity of the aortic valve with possible vegetation. Consider PATRICIA if clinically indicated. No aortic regurgitation. Mild TR. Cardiology on board for abnormal echo. They plan to repeat 2-D echo in the morning. If still evidence of vegetation, then patient will undergo PATRICIA. CTA head and neck showed: No significant stenosis of the brachiocephalic origins of the common or internal carotid arteries within the neck. Mild atherosclerotic calcification of the distal left vertebral artery which is dominant. No definite significant stenosis intracranially however there is mild calcification of the carotid siphons and the possibility of right carotid siphon stenosis cannot be excluded. Hemoglobin A1c 9.4 on 08/05/2024. Lipid panel. Continue Lipitor 80 mg daily (home dose). optimize control of blood pressure. Patient has been on Plavix 75 mg daily and aspirin 81 mg daily at home. Resume Plavix 75 mg and aspirin [address] head today showed no acute bleed or mass effect. I personally reviewed CT head agree with the findings. Neuro checks as per TNK protocol. Telemetry monitoring rule out any arrhythmia PT, OT, speech therapy DVT prophylaxis: Hold subcu heparin. Dr. Scott Lemos Will resume neurology service in the morning.
[2024-09-01 06:10] LABS: Glucose,Whole Blood 190 mg/dL (70-110)
[2024-09-01 06:21] LABS: Basophils # (A) 0.03 10*3/uL (0.00-0.10); Basophils % (A) 0.4 %; Eosinophils # (A) 0.24 10*3/uL (0.04-0.35); Eosinophils % (A) 3.0 %; HCT 24.4 % (37.2-46.3); HGB 7.8 g/dL (12.0-15.0); Lymphocytes # (A) 1.68 10*3/uL (0.90-5.00); Lymphocytes % (A) 20.9 %; MCH 28.5 pg (27.0-32.0); MCHC 32.0 g/dL (32.0-37.0); MCV 89.1 fL (80.0-97.0); Monocytes # (A) 0.56 10*3/uL (0.20-1.00); Monocytes % (A) 7.0 %; Neutrophils # (A) 5.49 10*3/uL (1.80-7.70); Neutrophils % (A) 68.3 %; Platelet Count 279 10*3/uL (140-440); RBC 2.74 10*6/uL (4.10-5.20); RDW 18.5 % (11.5-14.5); WBC 8.03 10*3/uL (4.50-10.00)
[2024-09-01 06:45] LABS: African American GFR (CKD) >90 (>60 ml/min/1.73 sqM); Anion Gap 8 mmol/L; Blood Urea Nitrogen 24 mg/dL (7-17); Calcium 9.0 mg/dL (8.4-10.2); Carbon Dioxide 27 mmol/L (22-30); Chloride 99 mmol/L (98-107); Glucose 166 mg/dL (74-99); Non-African American GFR(CKD) >90 (>60 ml/min/1.73 sqM); Potassium 4.5 mmol/L (3.5-5.1); Sodium 134 mmol/L (137-145)
--- NOTE | 2024-09-01 07:47 | P.PN ---
Subjective Progress Note Date: 09/01/24 History of Present Illness: The patient is a 63-year-old female with a known history of CAD, status post PCI history of PAD status post revascularization and amputation, diabetes mellitus who was admitted to the hospital on 03 August with symptoms of fever, progressive fatigue and evidence of sepsis. She had an echocardiogram that showed severely impaired systolic function with segmental wall motion abnormality and questionable mass on the aortic valve. On August 30 there was a question of stroke but there is no evidence of abnormality on her CT scan. Today she continues to have abdominal discomfort, her NG tube is out. She has some abdominal distention but she is moving her bowel. She is tolerating some eating. She denies any chest discomfort, dizziness or palpitations. She continues to be in sinus mechanism. Medications: Aspirin, Lipitor 80 mg daily, Plavix 75 mg daily, gabapentin, insulin, isosorbide mononitrate 15 mg daily, metoprolol succinate 12.5 mg daily, Protonix, spironolactone 12.5 mg daily Physical Examination: 63-year-old female, alert oriented no apparent distress,Blood pressure 107/59, Heart rate 64 Head: Normocephalic. Eyes: Sclerae nonicteric. Neck: Good carotid upstroke, no bruit, no jugular venous distention. Lungs: Clear to auscultation. Heart: Regular rate and rhythm, S1-S2, no S3, no rub. Systolic ejection murmur. Abdomen: Soft, mild tenderness, positive bowel sounds no organomegaly. Extremities: 1+ on the right edema, intact distal pulses. Labs: Hemoglobin 7.8, BUN 24, creatinine 0.38, potassium 4.5, WBC 8.03 . Impression: 1. Echodensity on the aortic valve, etiology unclear 2. History of CAD status post CABG 3. PAD 4. Ischemic cardiomyopathy 5. Sepsis with abdominal discomfort and distention, improving 6. Hypertension 7. Hyperlipidemia 8. Possible CVA Plan: 1. The patient is somewhat reluctant to undergo PATRICIA 2. Repeat transthoracic echo 3. Follow blood pressure and adjust treatment as tolerated 4. Follow renal functions 5. Depending on the results of her echo further recommendations will be made Objective - Vital Signs Vital signs: Vital Signs Temp 98.4 F 09/01/24 04:00 Pulse 64 09/01/24 04:00 Resp 16 09/01/24 04:00 BP 95/53 09/01/24 04:00 Pulse Ox 99 09/01/24 04:00 FiO2 40 08/07/24 08:11 Intake & Output 08/31/24 09/01/24 09/01/24 18:59 06:59 18:59 Intake Total 1519 1362 Output Total 1370 2400 Balance 149 -1038 Weight 68.7 kg Intake: IV 975 750 Lactated Ringers 1,000 ml 975 750 @ 75 mls/hr IV .[id number] [facility] Rx#:[id number] Intake, IV Titration 544 612 Amount Magnesium Sulfate-D5w Pmx 204 1 gm In Dextrose/Water 1 100ml.bag @ 100 mls/hr IVPB ONCE ONE Rx#: [id number] Mvi, Adult No.4 with Vit 68 612 K 10 ml Trace (Conc-1Ml/ Dose) 1 ml Sodium Acetate 76 meq Potassium Chloride 10 meq Calcium Gluconate 1 gm Magnesium Sulfate gm 0.5 gm In Amino Acid 5%-D15w 1,000 ml @ 68 mls/hr IV .BY DURATION [facility] Rx#: [id number] Sodium Acetate 76 meq 272 Potassium Chloride 10 meq Calcium Gluconate 1 gm Magnesium Sulfate gm 0.5 gm Sodium Phosphate 3 mmol In Amino Acids 5 %/ Dextrose 20 % 1,000 ml @ 68 mls/hr IV .BY DURATION [facility] Rx#:[id number] Output: Urine 1370 2400 Other: Voiding Method Indwelling Catheter Indwelling Catheter # Bowel Movements 1 - Labs CBC & Chem 7: 09/01/24 05:33 09/01/24 05:33 Labs: Abnormal Lab Results - Last 24 Hours (Table) 08/31/24 08/31/24 08/31/24 Range/Units 11:14 16:29 20:20 RBC (4.10-5.20) 10*6/uL Hgb (12.0-15.0) g/dL Hct (37.2-46.3) % Sodium (137-145) mmol/L BUN (7-17) mg/dL Creatinine (0.52-1.04) mg/dL Glucose (74-99) mg/dL POC Glucose (mg/dL) 246 H 230 H 180 H (70-110) mg/dL 09/01/24 09/01/24 09/01/24 Range/Units 05:33 05:33 06:09 RBC 2.74 L (4.10-5.20) 10*6/uL Hgb 7.8 L (12.0-15.0) g/dL Hct 24.4 L (37.2-46.3) % Sodium 134 L (137-145) mmol/L BUN 24 H (7-17) mg/dL Creatinine 0.38 L (0.52-1.04) mg/dL Glucose 166 H (74-99) mg/dL POC Glucose (mg/dL) 190 H (70-110) mg/dL
[2024-09-01 09:57] LABS: Glucose,Whole Blood 194 mg/dL (70-110)
--- NOTE | 2024-09-01 10:51 | P.PN ---
Subjective Progress Note Date: 09/01/24 SURGICAL PROGRESS NOTE CHIEF COMPLAINT: CHF and pneumonia HISTORY OF PRESENT ILLNESS: Patient lying in bed comfortably. Denies any abdominal pain. She is eating about 50% of her meals per nursing staff. She is having liquidy and semisolid stools. Denies any nausea or vomiting. She is currently on TPN. Afebrile. WBC 8.03 Hgb 7.8. Patient in ICU. Neuro following for possible CVA/TIA with left-sided weakness. PHYSICAL EXAM: VITAL SIGNS: Reviewed. GENERAL: Well-developed in no acute distress. ABDOMEN: Soft. Distended. Nontender. NEUROLOGIC: awake and alert ASSESSMENT: 1. Ileus improving 2. Possible gastroparesis 3. Severe protein calorie malnutrition PLAN: -Continue regular diet -Wean off TPN -Continue lactulose and Reglan Physician Character Artist note has been reviewed by physician. Signing provider agrees with the documented findings, assessment, and plan of care. Objective - Vital Signs Vital signs: Vital Signs Temp 98.4 F 09/01/24 08:00 Pulse 65 09/01/24 10:00 Resp 11 L 09/01/24 10:00 BP 104/56 09/01/24 10:00 Pulse Ox 95 09/01/24 10:00 FiO2 40 08/07/24 08:11 Intake & Output 08/31/24 09/01/24 09/01/24 18:59 06:59 18:59 Intake Total 1519 1362 300 Output Total 1370 2400 1300 Balance 149 -1038 -1000 Weight 68.7 kg Intake: IV 975 750 300 Lactated Ringers 1,000 ml 975 750 300 @ 75 mls/hr IV .[id number] [facility] Rx#:[id number] Intake, IV Titration 544 612 Amount Magnesium Sulfate-D5w Pmx 204 1 gm In Dextrose/Water 1 100ml.bag @ 100 mls/hr IVPB ONCE ONE Rx#: [id number] Mvi, Adult No.4 with Vit 68 612 K 10 ml Trace (Conc-1Ml/ Dose) 1 ml Sodium Acetate 76 meq Potassium Chloride 10 meq Calcium Gluconate 1 gm Magnesium Sulfate gm 0.5 gm In Amino Acid 5%-D15w 1,000 ml @ 68 mls/hr IV .BY DURATION [facility] Rx#: [id number] Sodium Acetate 76 meq 272 Potassium Chloride 10 meq Calcium Gluconate 1 gm Magnesium Sulfate gm 0.5 gm Sodium Phosphate 3 mmol In Amino Acids 5 %/ Dextrose 20 % 1,000 ml @ 68 mls/hr IV .BY DURATION [facility] Rx#:[id number] Output: Urine 1370 2400 1300 Other: Voiding Method Indwelling Catheter Indwelling Catheter Indwelling Catheter # Bowel Movements 1 - Labs CBC & Chem 7: 09/01/24 05:33 09/01/24 05:33 Labs: Abnormal Lab Results - Last 24 Hours (Table) 08/31/24 08/31/24 08/31/24 Range/Units 11:14 16:29 20:20 RBC (4.10-5.20) 10*6/uL Hgb (12.0-15.0) g/dL Hct (37.2-46.3) % Sodium (137-145) mmol/L BUN (7-17) mg/dL Creatinine (0.52-1.04) mg/dL Glucose (74-99) mg/dL POC Glucose (mg/dL) 246 H 230 H 180 H (70-110) mg/dL 09/01/24 09/01/24 09/01/24 Range/Units 05:33 05:33 06:09 RBC 2.74 L (4.10-5.20) 10*6/uL Hgb 7.8 L (12.0-15.0) g/dL Hct 24.4 L (37.2-46.3) % Sodium 134 L (137-145) mmol/L BUN 24 H (7-17) mg/dL Creatinine 0.38 L (0.52-1.04) mg/dL Glucose 166 H (74-99) mg/dL POC Glucose (mg/dL) 190 H (70-110) mg/dL 09/01/24 Range/Units 09:55 RBC (4.10-5.20) 10*6/uL Hgb (12.0-15.0) g/dL Hct (37.2-46.3) % Sodium (137-145) mmol/L BUN (7-17) mg/dL Creatinine (0.52-1.04) mg/dL Glucose (74-99) mg/dL POC Glucose (mg/dL) 194 H (70-110) mg/dL
[2024-09-01 11:06] LABS: Glucose,Whole Blood 169 mg/dL (70-110)
[2024-09-01 12:56] LABS: Glucose,Whole Blood 128 mg/dL (70-110)
--- NOTE | 2024-09-01 12:59 | CA ---
Transthoracic Echo Report Name: Mary Jo Caldwell Age: 63 Gender: F : 1960 Exam Date: 09/01/2024 07:50 Exam Location: [facility] Ht (in): 68 Wt (lb): 151 Ordering Physician: Kasi Gallardo MD ([email or web address]) Attending/Referring Phys: Spring Repairer Helper Hand Irene Roblero RDCS Procedure CPT: Indications: Endocarditis, CVA Cardiac Hx: Technical Quality: Good Contrast 1: Total Dose (mL): Contrast 2: Total Dose (mL): MEASUREMENTS (Male / Female) Normal Values 2D ECHO LV Diastolic Diameter PLAX 5.0 cm 4.2 - 5.9 / 3.9 - 5.3 cm LV Systolic Diameter PLAX 3.3 cm IVS Diastolic Thickness 0.8 cm 0.6 - 1.0 / 0.6 - 0.9 cm LVPW Diastolic Thickness 1.4 cm 0.6 - 1.0 / 0.6 - 0.9 cm LV Relative Wall Thickness 0.4 LV Diastolic Volume MOD BP 112.9 cm??? 67 - 155 / 56 - 104 cm??? LV Systolic Volume MOD BP 49.4 cm??? 22 - 58 / 19 - 49 cm??? LV Ejection Fraction MOD BP 56.3 % >= 55 % LV Cardiac Index MOD BP 2134.3 cm???/min???m??? LV Diastolic Volume MOD 4C 108.8 cm??? LV Systolic Volume MOD 4C 51.2 cm??? LV Ejection Fraction MOD 4C 53.0 % LV Cardiac Index MOD 4C 1935.7 cm???/min???m??? LV Diastolic Length 4C 8.6 cm LV Systolic Length 4C 7.2 cm LV Diastolic Volume MOD 2C 113.0 cm??? LV Systolic Volume MOD 2C 47.2 cm??? LV Ejection Fraction MOD 2C 58.2 % LV Cardiac Index MOD 2C 2210.7 cm???/min???m??? LV Diastolic Length 2C 9.0 cm LV Systolic Length 2C 7.4 cm DOPPLER AV Peak Velocity 178.4 cm/s AV Peak Gradient 12.7 mmHg AV Mean Velocity 116.8 cm/s AV Mean Gradient 6.6 mmHg AV Velocity Time Integral 35.3 cm LVOT Peak Velocity 106.4 cm/s LVOT Peak Gradient 4.5 mmHg LVOT Velocity Time Integral 20.8 cm MV Peak Velocity 111.7 cm/s MV Peak Gradient 5.0 mmHg MV Mean Velocity 73.4 cm/s MV Mean Gradient 2.4 mmHg MV Velocity Time Integral 40.1 cm TR Peak Velocity 264.1 cm/s TR Peak Gradient 27.9 mmHg Right Atrial Pressure 5.0 mmHg Pulmonary Artery Systolic Pressu 32.9 mmHg Right Ventricular Systolic Press 32.9 mmHg FINDINGS Left Ventricle Left ventricular ejection fraction is estimated at 55 %. Moderately increased posterior wall thickness. Mildly increased left ventricular diastolic volume. No obvious regional wall motion abnormalities. Right Ventricle Normal right ventricular size and function. Right ventricular systolic pressure within normal limits. Right Atrium Left Atrium Mitral Valve Structurally normal mitral valve. Mitral annular calcification. No mitral stenosis. Trace mitral regurgitation. Aortic Valve Trileaflet aortic valve. Aortic valve sclerosis. Mild stenosis. Tricuspid Valve Structurally normal tricuspid valve. No tricuspid stenosis. Trace to mild tricuspid regurgitation. Pulmonic Valve Pulmonic valve not well visualized. Pericardium No pericardial effusion. Aorta CONCLUSIONS Normal biventricular systolic function Aortic sclerosis with mild stenosis and no regurgitation Previewed by: Dr. Vipul Lock MD (Electronically Signed) Final Date: 01 September 2024 12:58
[2024-09-01 13:38] VITALS: BMI 23.0
[2024-09-01 15:43] LABS: Cholesterol 89.00 mg/dL (0.00-200.00); HDL Cholesterol 28.50 mg/dL (40.00-60.00); LDL Cholesterol,Calculated 38.3 mg/dL (0.0-131.0); Triglycerides 111.00 mg/dL (0.00-149.00); VLDL Calculation 22.20 mg/dL (5.00-40.00)
--- NOTE | 2024-09-01 16:33 | P.PN ---
Subjective Progress Note Date: 09/01/24 I am seeing the patient for the first time during this hospital admission. Please refer to Dr. Espinoza's note for further details. According to the patient she feels the nurses over the drama type surge duration and the patient was notified by the nurse she had speech difficulty as well as weakness in the left arm and was felt was like a stroke but the patient feels it was over the drama ties. As her concern for the stroke she received TNK. Patient feels she is doing overall well. Today she had echo but pending or report. Patient is willing to pursue with a transesophageal echocardiogram if needed. Objective - Vital Signs Vital signs: Vital Signs Temp 97.9 F 09/01/24 12:00 Pulse 61 09/01/24 12:00 Resp 14 09/01/24 12:00 BP 104/56 09/01/24 12:00 Pulse Ox 95 09/01/24 12:00 FiO2 40 08/07/24 08:11 Intake & Output 08/31/24 09/01/24 09/01/24 18:59 06:59 18:59 Intake Total 1519 1362 750 Output Total 1370 2400 1775 Balance 149 1038 -1025 Weight 68.7 kg 68.7 kg Intake: IV 975 750 750 Lactated Ringers 1,000 ml 975 750 750 @ 75 mls/hr IV .[id number] [facility] Rx#:[id number] Intake, IV Titration 544 612 Amount Magnesium Sulfate-D5w Pmx 204 1 gm In Dextrose/Water 1 100ml.bag @ 100 mls/hr IVPB ONCE ONE Rx#: [id number] Mvi, Adult No.4 with Vit 68 612 K 10 ml Trace (Conc-1Ml/ Dose) 1 ml Sodium Acetate 76 meq Potassium Chloride 10 meq Calcium Gluconate 1 gm Magnesium Sulfate gm 0.5 gm In Amino Acid 5%-D15w 1,000 ml @ 68 mls/hr IV .BY DURATION [facility] Rx#: [id number] Sodium Acetate 76 meq 272 Potassium Chloride 10 meq Calcium Gluconate 1 gm Magnesium Sulfate gm 0.5 gm Sodium Phosphate 3 mmol In Amino Acids 5 %/ Dextrose 20 % 1,000 ml @ 68 mls/hr IV .BY DURATION [facility] Rx#:[id number] Output: Urine 1370 2400 1775 Other: Voiding Method Indwelling Catheter Indwelling Catheter Indwelling Catheter # Bowel Movements 1 - Exam General: Laying in bed and is not in acute distress. Neuro: The patient is awake alert oriented to self place and time. Is following simple commands. No aphasia. Pupils are round equal reactive to light. Patient has left nasolabial flattening. Visual saeed are full to conversation. Extraocular moods intact no nystagmus. Dysarthria. Motor left upper extremity is 4+ to 5 -. Otherwise right upper extremity is 5 out of 5. In the lowers at 3 bilaterally. Patient has transmetatarsal resection over the left lower. - Labs CBC & Chem 7: 09/01/24 05:33 09/01/24 05:33 Labs: Abnormal Lab Results - Last 24 Hours (Table) 08/31/24 08/31/24 09/01/24 Range/Units 16:29 20:20 05:33 RBC (4.10-5.20) 10*6/uL Hgb (12.0-15.0) g/dL Hct (37.2-46.3) % Sodium 134 L (137-145) mmol/L BUN 24 H (7-17) mg/dL Creatinine 0.38 L (0.52-1.04) mg/dL Glucose 166 H (74-99) mg/dL POC Glucose (mg/dL) 230 H 180 H (70-110) mg/dL HDL Cholesterol 28.50 L (40.00-60.00) mg/dL 09/01/24 09/01/24 09/01/24 Range/Units 05:33 06:09 09:55 RBC 2.74 L (4.10-5.20) 10*6/uL Hgb 7.8 L (12.0-15.0) g/dL Hct 24.4 L (37.2-46.3) % Sodium (137-145) mmol/L BUN (7-17) mg/dL Creatinine (0.52-1.04) mg/dL Glucose (74-99) mg/dL POC Glucose (mg/dL) 190 H 194 H (70-110) mg/dL HDL Cholesterol (40.00-60.00) mg/dL 09/01/24 09/01/24 Range/Units 11:05 12:54 RBC (4.10-5.20) 10*6/uL Hgb (12.0-15.0) g/dL Hct (37.2-46.3) % Sodium (137-145) mmol/L BUN (7-17) mg/dL Creatinine (0.52-1.04) mg/dL Glucose (74-99) mg/dL POC Glucose (mg/dL) 169 H 128 H (70-110) mg/dL HDL Cholesterol (40.00-60.00) mg/dL Assessment and Plan Assessment: * Possible stroke/TIA manifesting with difficulty speaking, mild left-sided weakness--improved * History of CVA, with right shoulder weakness * Peripheral neuropathy * History of amputation of toes of left foot and partial toes of right foot * Peripheral arterial disease * Pneumonia * Sepsis * Pressure ulcer heel and sacral region recent history of complicated UTI * Resolving ileus * Diabetes, not well-controlled * Hyperlipidemia * Ex tobacco use Plan: Patient cannot have MRI of the brain because of presence of spinal cord stimulat or 2D echo on 08/05/2024 revealed LVEF 35% with wall motion abnormalities and mainly inferior, inferior lateral and anterior lateral hypokinesis. Mild MR. Somewhat mobile echodensity of the aortic valve with possible vegetation. Consider PATRICIA if clinically indicated. No aortic regurgitation. Mild TR. Cardiology on board for abnormal echo. They plan to repeat 2-D echo in the morning. If still evidence of vegetation, then patient will undergo PATRICIA. And patient is in agreement with PATRICIA if needed today. CTA head and neck showed: No significant stenosis of the brachiocephalic origins of the common or internal carotid arteries within the neck. Mild atherosclerotic calcification of the distal left vertebral artery which is dominant. No definite significant stenosis intracranially however there is mild calcification of the carotid siphons and the possibility of right carotid siphon stenosis cannot be excluded. Hemoglobin A1c 9.4 on 08/05/2024. Lipid panel. Continue Lipitor 80 mg daily (home dose). optimize control of blood pressure. Patient has been on Plavix 75 mg daily and aspirin 81 mg daily at home. Resume Plavix 75 mg and aspirin [address] Espinoza. Repeat CT head showed no acute bleed or mass effect. Neuro checks Telemetry monitoring rule out any arrhythmia PT, OT, speech therapy For DVT prophylaxis: Use subq heparin or Lovenox once felt stable from primary perspective. The plan is discussed with patient, her who is at bedside and her nurse. Time with Patient: Less than 30
[2024-09-01 16:51] LABS: Glucose,Whole Blood 84 mg/dL (70-110)
[2024-09-01] MEDS: HYDROcodone/APAP 5-325MG 1 EACH TAB PO PRN (18:04)
[2024-09-01 19:51] LABS: Glucose,Whole Blood 82 mg/dL (70-110)
[2024-09-01 21:04] VITALS: RESP 16
--- NOTE | 2024-09-01 22:35 | P.PN ---
Subjective Progress Note Date: 09/01/24 63-year-old female with a past medical history significant for diabetes mellitus reflux hypertension hyperlipidemia RI CVA TIA previous patient noted to have history of recurrent UTI recently discharged from this hospital after receiving treatment for UTI cystitis has been brought back to the hospital concerning for generalized weakness along with mental status changes and low oxygen patient did have a low-grade fever chest x-ray with multifocal airspace opacity probably this consultation. 08/08/2024 --Patient is seen and evaluated in ICU; the patient continues to be afebrile, the patient is on 3 L nasal cannula oxygen and breathing comfortably, the Pt denies having any chest pain or worsening cough, the patient denies having any abdominal pain no vomiting or any diarrhea has been complaining about her pain medication being inadequate. Blood work reveals WBC of 10, hemoglobin of 8.5 and platelet count of 294, sodium 135, potassium 3.9, BUN/creatinine of 11/0.71 -- urine for Legionella antigen negative blood cultures so far negative sputum not collected - chest x-ray cardiomegaly pulm vascular congestion bilateral effusion progressive in nature 08/09/2024 Patient is seen and evaluated in the intensive care unit yesterday. Is resting comfortably in bed. Currently saturating at 98% on nasal cannula, 3 L. No acute distress. She is awake and alert. Blood work reveals white count 10.9, hemoglobin 8.9, hematocrit 27.6, platelet count is normal. Sodium 136, potassium 4.3, chlorides 105, CO2 26, BUN 10, and creatinine 0.58. Calcium is 7.4. Microbiology is currently negative. No chest x-ray today. Patient has been transferred out of ICU; cardiology recommending to decrease amiodarone to 200 mg daily; patient remains on Lipitor, Plavix and cilostazol; fenofibrate was discontinued; cardiology recommending Farxiga 10 mg daily and Aldactone 12.5 mg 08/10/2024 Patient is seen and evaluated and discussed with nursing staff; received IM Zyprexa for agitation and anxiety last; patient is sleepy but arousable - Vital signs reviewed afebrile patient is currently on 3 L goal oxygen admission breathing comfortably Patient white count is 8.08, creatinine 0.65 blood culture negative patient presented to the hospital with sepsis in this patient who did have a fever tachycardia elevated white count meeting criteria for SIRS/sepsis with evidence of diffuse multifocal airspace opacities will need to cover for the resistant gram-negative with the likely pathogen as the patient was recently discharged from this facility and exposed to antibiotics blood culture remains to be negative sputum has already been collected, urine for Legionella antigen negative keep bilateral heel area of the pressure to prevent any worsening of the bilateral heel pressure ulcer -patient did have resolution of the fever and white count down normalized on Zosyn will consider short course of oral antibiotic on discharge 08/11 Patient still remains mildly tachypneic but her breathing is improving slowly and gradually. Chest x-ray showing improving consolidation and improving fluid overload. Patient remains on IV Lasix with negative fluid balance Her abdomen is mildly distended, she says she has 1 bowel movement which is loose. Abdominal x-ray showing ileus. I talked to the patient about placement and she agreed to talk to the social services analyst for possible rehab placement upon discharge whenever ready In the meantime she remains on IV Zosyn and Levaquin. Also she is on IV Lasix 20 mg twice daily. Continued with Aldactone. 08/12 Patient lying in bed with no distress No significant dyspnea at rest, she is on 2 L oxygen She still have evidence of fluid overload she is still kept on IV Lasix 20 mg twice daily. She has almost several liters of urine output over the last 24 hours. Possible discharge in 24 to 48 hours if keeps improving 08/13 Patient is improving significantly and his breathing is improved She is kept on IV Lasix and she was making 2 to 3 L of urine output this morning, because of the benefits and significant lower in her fluid overload we will going to keep her for another 24 hours with IV Lasix No labs today, rechecking labs in the morning If she keeps improving no other new complaint may be considered for discharge 08/14 Patient still has bilateral leg swelling She is making good amount of urine output about 1 to 2 L every shift She does not want to go to rehab although she is severely weak she is adamant to go home with home care after several times we discussed with her. She has Ragland catheter in place However in the afternoon patient started develop more abdominal distention, abdominal x-ray requested as patient vomited once showing significant gaseous distention of the stomach, NG tube recommended which is ordered, Make the p atient n.p.o., surgery team also consulted Discussed with the staff of day and shift production supervisor. Continue close monitoring 08/15 Patient developed abdominal distention and vomiting and abdominal x-ray showing distended gas filled stomach and ileus NG tube was placed which helped for decompression surgical consult was obtained who recommended Reglan and lactulose which were added Also patient continued on IV Lasix and diuresing and continued on IV antibiotics with Zosyn WBC 12.2, hemoglobin 8.9 Blood pressure is soft low side up with systolic 80s to 90s Patient remains sleepy in bed still with bilateral leg edema Ragland catheter in place, NG tube in place Patient eventually does not want to go to subacute rehab with risk-benefit explained to her 08/16 Patient NG tube was removed today, abdomen less tender and distended, She still has bilateral leg swelling but they are improving Blood pressure on the soft side therefore we will switch morphine to IV Dilaudid Also Levaquin was discontinued, currently patient kept on Zosyn 08/17 Patient awake alert Leg edema significantly improved Patient still have persistent dilatation of the stomach, patient refused NG tube for decompression after risk-benefit explained Keep the patient n.p.o. Gastric dilatation seen with the KUB and the CT of the abdomen pelvis from today Discussed the case with surgery team Patient blood pressure on the low side received small bolus of IV fluid Recommend to order PICC line and nutrition consult for TPN tomorrow 08/23. Dr. Watkins took over care. Patient was complaining of abdominal pain this morning, abdominal was distended, had an episode of nausea and vomiting last night. Patient is currently on full liquid diet with TPN. Surgery evaluated, ordered x-ray abdominal 08/24/2024 Patient evaluated in follow-up on the cardiac unit. NG tube remains out as patient has been passing gas and abdomen is softer today. She is continued on full liquid diet and TPN and has had continued episodes of nausea and vomiting overnight. Abdominal xray gaseous distention of the gastric lumen and bowel. Correlate for ileus. General surgery following. Most recent blood work reveals a white blood cell count of 7.48, he open 8.3. Her sodium level is 134 BUN of 18 creatinine of 0.56 blood glucose remains elevated 200-300. 08/25/2024 Patient is seen in follow-up today continues to report significant amounts of gas and reports abdominal pain is improved and is maintained on TPN. Awaiting surgery recommendations regarding advancing diet as patient is requesting at least liquids to drink. Patient is afebrile with no reports of chest pain or shortness of breath. Patient is significantly weak, emaciated, cachectic appearing and dentures are not fitting with appearance of severe protein calorie malnutrition. Encourage patient to get up more frequently and sit in the chair and strongly recommend PT/OT therapy daily. 08/26/2024 Patient is seen in follow-up today has been started on clear liquids by general surgery and asking for advance further and will await recommendations for surgery as patient is continued on TPN. Recommend weaning TPN infectious disease following patient is continued on antibiotics and patient is reporting multiple loose stools and has been maintained on antibiotics with prolonged h ospitalization, C. difficile ordered and pending at this time. Patient to continue with local wound care of bilateral right heels as well as sacral area and recommend frequent offloading and position changes. Patient with significant weakness recommend PT/OT therapy daily and getting up out of the bed more frequently. Patient will need ECF on discharge. Discussion of possible debridement of the decubitus ulcer, although continuing with conservative management and local wound care at this time. 08/27/2024 Patient is evaluated in follow-up on the medical floor. Patient has been having multiple episodes of loose stools. Her bowel sounds are normal active at this time. She is passing gas. Diet has been advanced by general surgery. Would recommend to wean TPN off as she is tolerating increased diet. Zosyn has been completed. Sodium level today is 138. 08/28/2024 Patient evaluated today in follow up on the medical floor. Zosyn has been discontinued. She has been tolerating regular diet and recommending to discontinue the TPN and Lipids and dietary following for this. Ragland catheter remains. Continue with local wound care and pressure offloading for the sacral wound. 08/29/2024 Patient is evaluated today in follow-up in the medical floor. Patient continues to report abdominal discomfort states it is mild today and states that the increase in the IV Dilaudid as well as the addition of IV Toradol has helped her pain. She remains on liquid diet although states that the texture of food is returning her from increasing her diet to regular. Her bowel sounds remain slug maria d and her abdomen remains distended. She is still having frequent bouts of diarrhea. C. difficile is negative. Discussed increasing activity level and pressure offloading for her decubitus ulcer. ID recommending surgical debridement no plans per general surgery for this at this time. She continues with [facility] local wound care. Patient continues on TPN lipids currently running at half rate and can be weaned off as patient has been tolerating some increase in diet. Patient is currently afebrile and maintaining oxygen saturations 96% on room air. 08/30/2024 Patient evaluated today in follow up. Patient was noted to have altered mentation and left facial droop. Also was having trouble finding her words. Code stroke was called. NIH score of 6. Patient had brain CT and CTA which were both negative for stroke. Received TNK and now monitored closely in the ICU. Abdomen remains distended. Patient remains on TPN/lipids. Labs today reveal a sodium level of 134 potassium 5.1, BUN of 36 creatinine of 0.65, magnesium 2.1. Troponin level was negative and her BNP was 1010. Patient did state that she felt extreme LFNC on her chest earlier this morning. EKG was unremarkable. Rayna st x-ray is unremarkable. 08/31/2024 Patient is evaluated in follow-up in the intensive care unit. Her repeat brain CT 24 hours post TNK reveals no stroke mass effect or bleed. She is awake alert and oriented. Her left-sided facial droop appears to be improving. She is tolerating some diet. Her abdomen does remain distended. She has hypoactive bowel sounds. She remains on TPN lipids currently running at 60 mL/h. Local wound care for the decubitus ulceration. 09/01/2024 Patient is evaluated today in the ICU pending bed on the medical floor. Status post TNK, patient is awake alert and oriented. Patient appears less lethargic today. Tolerating increased diet. Had one episode of loose bowels in the last 24 hours. Bowel sounds remain hypoactive. TPN/Lipids have been discontinued. Blood glucose trending down and will decrease lantus. Continues with local wound care for the decubitus ulceration. Currently pending repeat echocardiogram. Continues on aspirin 81 mg daily. REVIEW OF SYSTEMS: CONSTITUTIONAL: No fever, no malaise,. CARDIOVASCULAR: No chest pain, no palpitations, no syncope. PULMONARY: No shortness of breath, no cough, GASTROINTESTINAL: Reports tolerating clear liquids and would like an advancing diet, having significant amounts of gas, continues to report loose stools which are becoming less frequent. NEUROLOGICAL: No headaches, reports continued ongoing weakness PHYSICAL EXAMINATION: GENERAL: The patient is alert and oriented x3, ill looking, elderly appearing, cachectic with significant muscle wasting noted slight left facial droop HEENT: Pupils are round and equally reacting to light. EOMI. No scleral icterus. No conjunctival pallor. Normocephalic, atraumatic. No pharyngeal erythema. No thyromegaly. CARDIOVASCULAR: S1 and S2 present. No murmurs, rubs, or gallops. PULMONARY: Chest is clear to auscultation, no wheezing or crackles. ABDOMEN: Soft, thin, less distended, positive bowel sounds. No palpable organomegaly. Nontender on palpation MUSCULOSKELETAL: No joint swelling or deformity. EXTREMITIES: No cyanosis, clubbing, or pedal edema. NEUROLOGICAL: Gross neurological examination did not reveal any focal deficits. Diffusely weak SKIN: No rashes. left transmetatarsal amputation in the past. Sacral decub. Assessment: Altered mental status with left facial droop and aphasia; NIH of 6 - code stroke called. Status post TNK Sepsis on admission from likely bilateral gram-negative pneumonia; hospital acquired Recent admission for complicated UTI Acute hypoxemic respiratory failure, currently on 3 L Resolving ileus, gastric distention post NG tube insertion for gastric decompression and the tube was removed Hypotension, secondary to sepsis/septic shock from gram-negative pneumonia on admission Bilateral heel pressure ulcer, present on admission Unstageable sacral pressure ulcer to bilateral sacral regions secondary to in continence and multiple macerated areas as patient is immobile and mostly at bedbound. Urinary retention, abdominal/pelvis CT from previous admission remarkable for bilateral hydronephrosis, right greater than left, bladder wall thickening, and small bowel ileus, recommend indwelling Ragland catheter Acute kidney injury from ATN resolved. Elevated troponins History of hypertension currently normotensive. History of hyperlipidemia Diabetes mellitus type 2, uncontrolled with hyperglycemia history of stroke with right-sided deficit Chronic heart failure with reduced EF 35% felt to be an ischemic cardiomyopathy History of coronary artery disease with previous PCI/stents History of peripheral vascular disease with bilateral iliac and SFA stents History of left foot transmetatarsal amputation History of right 4th and 5th toe amputation on the right History of nondisplaced oblique fracture of the left greater trochanter Ongoing tobacco dependence Severe protein calorie malnutrition with a BMI of 24.0 GI prophylaxis DVT prophylaxis Full code Plan: Patient monitored in the ICU and currently pending downgrade to the medical floor. Neurology consult patient is status post tenecteplase. Aspirin 81 mg daily resumed and plavix 75 mg has been discontinued Patient unable to get MRI due to spinal cord stimulator General surgery following for the ileus/gasseous distention, TPN/lipids have been discontinued; NG remains discontinued. Abdomen remains distended . Patient continues with loose stools however becoming less freqeuent and contineus on questran. ID following. Negative C.Dif. Continue symptomatic and supportive care; antiemetics Antibiotic discontinued Continue local wound care to unstageable sacral regions as well as bilateral heels. No immediate plans for surgery but per ID, may benefit from debridement of the decubital area. Will discuss with general surgery.. Recommend frequent offloading and getting up more frequently and sitting in the chair as well as frequent position changes Patient having urinary retention and straight catheterization x 2, recommend continued indwelling Ragland catheter. Patient does have history of chronic cystitis and retention previously. Continue Lipitor Continue amiodarone Continue farxiga, aldactone, metoprolol and losartan Continue accuchecks ACHS and sliding scale insulin will increase lantus even further for improved glycemic control. Cardiology recommending f.u with Dr Lock on outpatient basis for possible cardiac catheterization and evaluation of the decreased EF found this hospital stay. Echocardiogram has been repeated and currently pending Repeat BMP/CBC [place] [place] on discharge when medically stable The impression and plan of care has been dictated by Jenniffer Almeida, Nurse Practitioner as directed. Dr. Isaias MD I have performed a history and physical examination and medical decision making of this patient, discussed the same with the dictator, and agree with the dictators assessment and plan as written, documented as a scribe. Based on total visit time, I have performed more than 50% of this visit. Objective - Vital Signs Vital signs: Vital Signs Temp 98.4 F 09/01/24 04:00 Pulse 64 09/01/24 04:00 Resp 16 09/01/24 04:00 BP 95/53 09/01/24 04:00 Pulse Ox 99 09/01/24 04:00 FiO2 40 08/07/24 08:11 Intake & Output 08/31/24 09/01/24 09/01/24 18:59 06:59 18:59 Intake Total 1519 1362 300 Output Total 1370 2400 1300 Balance 149 -1038 -1000 Weight 68.7 kg Intake: IV 975 750 300 Lactated Ringers 1,000 ml 975 750 300 @ 75 mls/hr IV .[id number] [facility] Rx#:[id number] Intake, IV Titration 544 612 Amount Magnesium Sulfate-D5w Pmx 204 1 gm In Dextrose/Water 1 100ml.bag @ 100 mls/hr IVPB ONCE ONE Rx#: [id number] Mvi, Adult No.4 with Vit 68 612 K 10 ml Trace (Conc-1Ml/ Dose) 1 ml Sodium Acetate 76 meq Potassium Chloride 10 meq Calcium Gluconate 1 gm Magnesium Sulfate gm 0.5 gm In Amino Acid 5%-D15w 1,000 ml @ 68 mls/hr IV .BY DURATION [facility] Rx#: [id number] Sodium Acetate 76 meq 272 Potassium Chloride 10 meq Calcium Gluconate 1 gm Magnesium Sulfate gm 0.5 gm Sodium Phosphate 3 mmol In Amino Acids 5 %/ Dextrose 20 % 1,000 ml @ 68 mls/hr IV .BY DURATION [facility] Rx#:[id number] Output: Urine 1370 2400 1300 Other: Voiding Method Indwelling Catheter Indwelling Catheter # Bowel Movements 1 - Labs CBC & Chem 7: 09/01/24 05:33 09/01/24 05:33 Labs: Abnormal Lab Results - Last 24 Hours (Table) 08/31/24 08/31/24 08/31/24 Range/Units 11:14 16:29 20:20 RBC (4.10-5.20) 10*6/uL Hgb (12.0-15.0) g/dL Hct (37.2-46.3) % Sodium (137-145) mmol/L BUN (7-17) mg/dL Creatinine (0.52-1.04) mg/dL Glucose (74-99) mg/dL POC Glucose (mg/dL) 246 H 230 H 180 H (70-110) mg/dL 09/01/24 09/01/24 09/01/24 Range/Units 05:33 05:33 06:09 RBC 2.74 L (4.10-5.20) 10*6/uL Hgb 7.8 L (12.0-15.0) g/dL Hct 24.4 L (37.2-46.3) % Sodium 134 L (137-145) mmol/L BUN 24 H (7-17) mg/dL Creatinine 0.38 L (0.52-1.04) mg/dL Glucose 166 H (74-99) mg/dL POC Glucose (mg/dL) 190 H (70-110) mg/dL 09/01/24 Range/Units 09:55 RBC (4.10-5.20) 10*6/uL Hgb (12.0-15.0) g/dL Hct (37.2-46.3) % Sodium (137-145) mmol/L BUN (7-17) mg/dL Creatinine (0.52-1.04) mg/dL Glucose (74-99) mg/dL POC Glucose (mg/dL) 194 H (70-110) mg/dL Assessment and Plan Time with Patient: Less than 30
[2024-09-02 06:05] LABS: Glucose,Whole Blood 78 mg/dL (70-110)
[2024-09-02 07:23] LABS: African American GFR (CKD) >90 (>60 ml/min/1.73 sqM); Anion Gap 10 mmol/L; Blood Urea Nitrogen 19 mg/dL (7-17); Calcium 9.1 mg/dL (8.4-10.2); Carbon Dioxide 22 mmol/L (22-30); Chloride 104 mmol/L (98-107); Glucose 63 mg/dL (74-99); Magnesium 1.7 mg/dL (1.6-2.3); Non-African American GFR(CKD) >90 (>60 ml/min/1.73 sqM); Potassium 4.7 mmol/L (3.5-5.1); Sodium 136 mmol/L (137-145)
[2024-09-02] MEDS: INSULIN GLARGINE (LANTUS) 100 UNIT/ML SYR SQ SCH (08:51)
--- NOTE | 2024-09-02 09:39 | P.PN ---
Subjective Progress Note Date: 09/02/24 The patient is a 63-year-old female with a known history of CAD, status post PCI history of PAD status post revascularization and amputation, diabetes mellitus who was admitted to the hospital on 03 August with symptoms of fever, progressive fatigue and evidence of sepsis. She had an echocardiogram that showed severely impaired systolic function with segmental wall motion abnormality and questionable mass on the aortic valve. On August 30 there was a question of stroke but there is no evidence of abnormality on her CT scan. Today she continues to have abdominal discomfort, her NG tube is out. She has some abdominal distention but she is moving her bowel. She is tolerating some eating. She denies any chest discomfort, dizziness or palpitations. She continues to be in sinus mechanism. Medications: Aspirin, Lipitor 80 mg daily, Plavix 75 mg daily, gabapentin, insulin, isosorbide mononitrate 15 mg daily, metoprolol succinate 12.5 mg daily, Protonix, spironolactone 12.5 mg daily 09/02/2024 Patient was seen and examined resting in bed. Continues to complain of some abdominal distention and epigastric pressure. Symptoms are improved with Reglan. Limited echocardiogram done yesterday showed normal LV systolic function with aortic sclerosis, mild aortic stenosis and no aortic regurgitation with no suspicious echodensity noted. Physical Examination: 63-year-old female, alert oriented no apparent distress,Blood pressure 107/59, Heart rate 64 Head: Normocephalic. Eyes: Sclerae nonicteric. Neck: Good carotid upstroke, no bruit, no jugular venous distention. Lungs: Clear to auscultation. Heart: Regular rate and rhythm, S1-S2, no S3, no rub. Systolic ejection murmur. Abdomen: Soft, mild tenderness, positive bowel sounds no organomegaly. Extremities: 1+ on the right edema, intact distal pulses. Impression: 1. Echodensity on the aortic valve, etiology unclear 2. History of CAD status post CABG 3. PAD 4. Ischemic cardiomyopathy 5. Sepsis with abdominal discomfort and distention, improving 6. Hypertension 7. Hyperlipidemia 8. Possible CVA Plan: From cardiology's perspective medications were reviewed and we will continue the same. At this time there is no indication for a PATRICIA. We will continue to follow the patient and provide further recommendations accordingly. DECKHAND note has been reviewed, I agree with a documented findings and plan of care. Patient was seen and examined. Objective - Vital Signs Vital signs: Vital Signs Temp 97.4 F L 09/02/24 03:22 Pulse 52 L 09/02/24 03:22 Resp 16 09/02/24 03:22 BP 106/53 09/02/24 03:22 Pulse Ox 97 09/02/24 03:22 FiO2 40 08/07/24 08:11 Intake & Output 09/01/24 09/02/24 09/02/24 18:59 06:59 18:59 Intake Total 1170 360 Output Total 2045 1475 Balance -875 -1115 Weight 68.7 kg 55 kg Intake: IV 1050 Lactated Ringers 1,000 ml 1050 @ 75 mls/hr IV .[id number] [facility] Rx#:[id number] Oral 120 360 Output: Urine 5 1475 Other: Voiding Method Indwelling Catheter Indwelling Catheter - Labs CBC & Chem 7: 09/01/24 05:33 09/02/24 06:21 Labs: Abnormal Lab Results - Last 24 Hours (Table) 09/01/24 09/01/24 09/01/24 Range/Units 05:33 09:55 11:05 Sodium (137-145) mmol/L BUN (7-17) mg/dL Creatinine (0.52-1.04) mg/dL Glucose (74-99) mg/dL POC Glucose (mg/dL) 194 H 169 H (70-110) mg/dL Phosphorus (2.5-4.5) mg/dL HDL Cholesterol 28.50 L (40.00-60.00) mg/dL 09/01/24 09/02/24 Range/Units 12:54 06:21 Sodium 136 L (137-145) mmol/L BUN 19 H (7-17) mg/dL Creatinine 0.42 L (0.52-1.04) mg/dL Glucose 63 L (74-99) mg/dL POC Glucose (mg/dL) 128 H (70-110) mg/dL Phosphorus 5.8 H (2.5-4.5) mg/dL HDL Cholesterol (40.00-60.00) mg/dL
--- NOTE | 2024-09-02 11:28 | P.PN ---
Subjective Progress Note Date: 09/02/24 SURGICAL PROGRESS NOTE CHIEF COMPLAINT: CHF and pneumonia HISTORY OF PRESENT ILLNESS: Patient lying in bed comfortably. She denies any abdominal pain. She is tolerating diet. Denies any nausea or vomiting. Patient was transferred out of the ICU and is currently on the cardiac floor. Last bowel movement charted 08/31. TPN was weaned off yesterday. Neuro following for possible CVA/TIA with left-sided weakness. PHYSICAL EXAM: VITAL SIGNS: Reviewed. GENERAL: Well-developed in no acute distress. ABDOMEN: Soft. Distended. Nontender. NEUROLOGIC: awake and alert ASSESSMENT: 1. Ileus improving 2. Possible gastroparesis 3. Severe protein calorie malnutrition 4. Sacral decubitus ulcer PLAN: -Patient scheduled for bedside debridement of sacral decubitus ulcer today with Dr. Lilly -Continue regular diet -Continue lactulose and Reglan Physician Wheel Molder note has been reviewed by physician. Signing provider agrees with the documented findings, assessment, and plan of care. Objective - Vital Signs Vital signs: Vital Signs Temp 98 F 09/02/24 08:00 Pulse 54 L 09/02/24 08:00 Resp 16 09/02/24 08:00 BP 105/61 09/02/24 08:00 Pulse Ox 99 09/02/24 08:00 FiO2 40 08/07/24 08:11 Intake & Output 09/01/24 09/02/24 09/02/24 18:59 06:59 18:59 Intake Total 1170 360 118 Output Total 2045 1475 400 Balance -875 -7365 -282 Weight 68.7 kg 55 kg Intake: IV 1050 Lactated Ringers 1,000 ml 1050 @ 75 mls/hr IV .[id number] [facility] Rx#:[id number] Oral 120 360 118 Output: Urine 2045 1475 400 Other: Voiding Method Indwelling Catheter Indwelling Catheter Indwelling Catheter - Labs CBC & Chem 7: 09/01/24 05:33 09/02/24 06:21 Labs: Abnormal Lab Results - Last 24 Hours (Table) 09/01/24 09/01/24 09/02/24 Range/Units 05:33 12:54 06:21 Sodium 136 L (137-145) mmol/L BUN 19 H (7-17) mg/dL Creatinine 0.42 L (0.52-1.04) mg/dL Glucose 63 L (74-99) mg/dL POC Glucose (mg/dL) 128 H (70-110) mg/dL Phosphorus 5.8 H (2.5-4.5) mg/dL HDL Cholesterol 28.50 L (40.00-60.00) mg/dL
[2024-09-02 11:48] LABS: Glucose,Whole Blood 70 mg/dL (70-110)
--- NOTE | 2024-09-02 13:29 | P.PN ---
Subjective Progress Note Date: 09/02/24 I am following up with the patient and she feels she is about the same. Denies any new neurological issues. Patient stated she was notified by cardiology team that the transesophageal echocardiogram. Objective - Vital Signs Vital signs: Vital Signs Temp 97.9 F 09/02/24 12:09 Pulse 62 09/02/24 12:09 Resp 16 09/02/24 12:09 BP 134/59 09/02/24 12:09 Pulse Ox 99 09/02/24 12:09 FiO2 40 08/07/24 08:11 Intake & Output 09/01/24 09/02/24 09/02/24 18:59 06:59 18:59 Intake Total 1170 360 118 Output Total 2045 1475 400 Balance -743 -2860 -838 Weight 68.7 kg 55 kg Intake: IV 1050 Lactated Ringers 1,000 ml 1050 @ 75 mls/hr IV .[id number] [facility] Rx#:[id number] Oral 120 360 118 Output: Urine 2045 1475 400 Other: Voiding Method Indwelling Catheter Indwelling Catheter Indwelling Catheter - Exam General: Laying in bed and is not in acute distress. Neuro: The patient is awake alert oriented to self place and time. Is following simple commands. No aphasia. Pupils are round equal reactive to light. Patient has left nasolabial flattening. Visual saeed are full to conversation. Extraocular moods intact no nystagmus. Dysarthria. Motor left upper extremity is 4+ to 5 -. Otherwise right upper extremity is 5 out of 5. In the lowers at 3 bilaterally. Patient has transmetatarsal resection over the left lower. 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 Mild MR. Somewhat mobile echodensity of the aortic valve with possible vegetation. Consider PATRICIA if clinically indicated. No aortic regurgitation. Mild TR. Cardiology on board for abnormal echo. They ordered a repeat echo which is reported as normal biventricular systolic function. Aortic sclerosis with mild stenosis and no regurgitation. Cardiology note also they stated there is no indication for transesophageal echocardiogram. CTA head and neck showed: No significant stenosis of the brachiocephalic origins of the common or internal carotid arteries within the neck. Mild atherosc lerotic calcification of the distal left vertebral artery which is dominant. No definite significant stenosis intracranially however there is mild calcification of the carotid siphons and the possibility of right carotid siphon stenosis cannot be excluded. Hemoglobin A1c 9.4 on 08/05/2024. Lipid panel. Continue Lipitor 80 mg daily (home dose). optimize control of blood pressure. Patient has been on Plavix 75 mg daily and aspirin 81 mg daily at home and is resumed during this hospital. Repeat CT head showed no acute bleed or mass effect. Neuro checks Telemetry monitoring rule out any arrhythmia PT, OT, speech therapy For DVT prophylaxis: Use subq heparin or Lovenox once felt stable from primary perspective. The plan is discussed with patient, her who is at bedside. Will follow-up with patient sporadically. Time with Patient: Less than 30
--- NOTE | 2024-09-02 13:32 | P.PN ---
Subjective Progress Note Date: 09/01/24 Principal diagnosis: Reason for follow-up is fever/pneumonia Patient is a 63-year-old female with a past medical history significant for diabetes mellitus reflux hypertension hyperlipidemia [place] CVA TIA previous patient noted to have history of recurrent UTI recently discharged from this hospital after receiving treatment for UTI cystitis has been brought back to the hospital concerning for generalized weakness along with mental status changes and low oxygen patient did have a low-grade fever chest x-ray with multifocal airspace opacity probably this consultation. On today's evaluation that is 09/01/2024, patient has been afebrile, patient is breathing comfortably and is currently on 2 L nasal oxygen, patient denies having any chest pain and cough, patient denies nausea vomiting or diarrhea and no abdominal pain. Patient white count is 8.03, creatinine 0.38 Objective - Vital Signs Vital signs: Vital Signs Temp 97.9 F 09/01/24 12:00 Pulse 61 09/01/24 12:00 Resp 14 09/01/24 12:00 BP 104/56 09/01/24 12:00 Pulse Ox 95 09/01/24 12:00 FiO2 40 08/07/24 08:11 Intake & Output 08/31/24 09/01/24 09/01/24 18:59 06:59 18:59 Intake Total 1519 1362 750 Output Total 1370 2400 1775 Balance 149 1038 -1025 Weight 68.7 kg 68.7 kg Intake: IV 975 750 750 Lactated Ringers 1,000 ml 975 750 750 @ 75 mls/hr IV .[id number] [facility] Rx#:[id number] Intake, IV Titration 544 612 Amount Magnesium Sulfate-D5w Pmx 204 1 gm In Dextrose/Water 1 100ml.bag @ 100 mls/hr IVPB ONCE ONE Rx#: [id number] Mvi, Adult No.4 with Vit 68 612 K 10 ml Trace (Conc-1Ml/ Dose) 1 ml Sodium Acetate 76 meq Potassium Chloride 10 meq Calcium Gluconate 1 gm Magnesium Sulfate gm 0.5 gm In Amino Acid 5%-D15w 1,000 ml @ 68 mls/hr IV .BY DURATION [facility] Rx#: [id number] Sodium Acetate 76 meq 272 Potassium Chloride 10 meq Calcium Gluconate 1 gm Magnesium Sulfate gm 0.5 gm Sodium Phosphate 3 mmol In Amino Acids 5 %/ Dextrose 20 % 1,000 ml @ 68 mls/hr IV .BY DURATION [facility] Rx#:[id number] Output: Urine 1370 2400 1775 Other: Voiding Method Indwelling Catheter Indwelling Catheter Indwelling Catheter # Bowel Movements 1 - Exam Middle-age female lying in bed in no distress Unlabored breathing Patient did have evidence of sacral pressure ulcer with necrotic tissue - Labs CBC & Chem 7: 09/01/24 05:33 09/02/24 06:21 Labs: Abnormal Lab Results - Last 24 Hours (Table) 08/31/24 08/31/24 09/01/24 Range/Units 16:29 20:20 05:33 RBC (4.10-5.20) 10*6/uL Hgb (12.0-15.0) g/dL Hct (37.2-46.3) % Sodium 134 L (137-145) mmol/L BUN 24 H (7-17) mg/dL Creatinine 0.38 L (0.52-1.04) mg/dL Glucose 166 H (74-99) mg/dL POC Glucose (mg/dL) 230 H 180 H (70-110) mg/dL HDL Cholesterol 28.50 L (40.00-60.00) mg/dL 09/01/24 09/01/24 09/01/24 Range/Units 05:33 06:09 09:55 RBC 2.74 L (4.10-5.20) 10*6/uL Hgb 7.8 L (12.0-15.0) g/dL Hct 24.4 L (37.2-46.3) % Sodium (137-145) mmol/L BUN (7-17) mg/dL Creatinine (0.52-1.04) mg/dL Glucose (74-99) mg/dL POC Glucose (mg/dL) 190 H 194 H (70-110) mg/dL HDL Cholesterol (40.00-60.00) mg/dL 09/01/24 09/01/24 Range/Units 11:05 12:54 RBC (4.10-5.20) 10*6/uL Hgb (12.0-15.0) g/dL Hct (37.2-46.3) % Sodium (137-145) mmol/L BUN (7-17) mg/dL Creatinine (0.52-1.04) mg/dL Glucose (74-99) mg/dL POC Glucose (mg/dL) 169 H 128 H (70-110) mg/dL HDL Cholesterol (40.00-60.00) mg/dL Assessment and Plan (1) Pneumonia Current Visit: Yes Status: Acute Code(s): J18.9 - PNEUMONIA, UNSPECIFIED ORGANISM SNOMED Code(s): 248103360 (2) Sepsis Current Visit: Yes Status: Acute Code(s): A41.9 - SEPSIS, UNSPECIFIED ORGANISM SNOMED Code(s): 24105808 (3) Pressure ulcer, heel, right, unstageable Current Visit: No Status: Acute Code(s): L89.610 - PRESSURE ULCER OF RIGHT HEEL, UNSTAGEABLE SNOMED Code(s): 53658288192066283 (4) Unstageable pressure ulcer of sacral region Current Visit: Yes Status: Acute Code(s): L89.150 - PRESSURE ULCER OF SACRAL REGION, UNSTAGEABLE SNOMED Code(s): 37103639315211605 Plan: 1patient presented to the hospital with sepsis in this patient who did have a fever tachycardia elevated white count meeting criteria for SIRS/sepsis with evidence of diffuse multifocal airspace opacities will need to cover for the resistant gram-negative with the likely pathogen as the patient was recently discharged from this facility and exposed to antibiotics patient completed course of antibiotic for pneumonia 2keep bilateral heel area of the pressure to prevent any worsening of the bilateral heel pressure ulcer 3patient with unstageable sacral pressure ulcer to the sacral area will benefit from surgical debridement this was discussed with the nursing staff who will check with the surgeon on the case on rounds, for now we will treat with the Medihoney followed by moist dressing change daily and frequent change of position 4-patient did have resolution of her fever and patient white count is normalized currently being monitor closely off antibiotic therapy Dictation was produced using [employer] dictation software. please excuse any grammatical, word or spelling errors. Time with Patient: Less than 30
--- NOTE | 2024-09-02 13:34 | P.PN ---
Subjective Progress Note Date: 09/02/24 Principal diagnosis: Reason for follow-up is fever/pneumonia Patient is a 63-year-old female with a past medical history significant for diabetes mellitus reflux hypertension hyperlipidemia [place] CVA TIA previous patient noted to have history of recurrent UTI recently discharged from this hospital after receiving treatment for UTI cystitis has been brought back to the hospital concerning for generalized weakness along with mental status changes and low oxygen patient did have a low-grade fever chest x-ray with multifocal airspace opacity probably this consultation. On today's evaluation that is 09/02/2024, Patient is afebrile this morning patient denies having any chest pain shortness of breath or cough, the patient is currently on 2 L nasal cannula oxygen, patient denies any abdominal pain no diarrhea no nausea no vomiting, patient tolerating her diet. Patient did have creatinine 0.42 no CBC was done today multiple blood culture negative Objective - Vital Signs Vital signs: Vital Signs Temp 97.9 F 09/02/24 12:09 Pulse 62 09/02/24 12:09 Resp 16 09/02/24 12:09 BP 134/59 09/02/24 12:09 Pulse Ox 99 09/02/24 12:09 FiO2 40 08/07/24 08:11 Intake & Output 09/01/24 09/02/24 09/02/24 18:59 06:59 18:59 Intake Total 1170 360 118 Output Total 2045 1475 400 Balance -268 -5918 -852 Weight 68.7 kg 55 kg Intake: IV 1050 Lactated Ringers 1,000 ml 1050 @ 75 mls/hr IV .[id number] [facility] Rx#:[id number] Oral 120 360 118 Output: Urine 2045 1475 400 Other: Voiding Method Indwelling Catheter Indwelling Catheter Indwelling Catheter - Exam Middle-age female lying in bed in no distress Unlabored breathing Patient did have evidence of sacral pressure ulcer with necrotic tissue - Labs CBC & Chem 7: 09/01/24 05:33 09/02/24 06:21 Labs: Abnormal Lab Results - Last 24 Hours (Table) 09/01/24 09/02/24 Range/Units 05:33 06:21 Sodium 136 L (137-145) mmol/L BUN 19 H (7-17) mg/dL Creatinine 0.42 L (0.52-1.04) mg/dL Glucose 63 L (74-99) mg/dL Phosphorus 5.8 H (2.5-4.5) mg/dL HDL Cholesterol 28.50 L (40.00-60.00) mg/dL Assessment and Plan (1) Pneumonia Current Visit: Yes Status: Acute Code(s): J18.9 - PNEUMONIA, UNSPECIFIED ORGANISM SNOMED Code(s): 451787457 (2) Sepsis Current Visit: Yes Status: Acute Code(s): A41.9 - SEPSIS, UNSPECIFIED ORGANISM SNOMED Code(s): 60068791 (3) Pressure ulcer, heel, right, unstageable Current Visit: No Status: Acute Code(s): L89.610 - PRESSURE ULCER OF RIGHT HEEL, UNSTAGEABLE SNOMED Code(s): 21048339396757060 (4) Unstageable pressure ulcer of sacral region Current Visit: Yes Status: Acute Code(s): L89.150 - PRESSURE ULCER OF SACRAL REGION, UNSTAGEABLE SNOMED Code(s): 71213644633412614 Plan: 1patient presented to the hospital with sepsis in this patient who did have a fever tachycardia elevated white count meeting criteria for SIRS/sepsis with evidence of diffuse multifocal airspace opacities will need to cover for the resistant gram-negative with the likely pathogen as the patient was recently discharged from this facility and exposed to antibiotics patient completed cours e of antibiotic for pneumonia 2keep bilateral heel area of the pressure to prevent any worsening of the bilateral heel pressure ulcer 3patient with unstageable sacral pressure ulcer to the sacral area is currently being treated with Medihoney followed by moist dressing keep the area of the pressure 4-patient did have resolution of her fever and patient white count is normalized currently being monitor closely off antibiotic therapy and will not need antibiotics on discharge Dictation was produced using [employer] dictation software. please excuse any grammatical, word or spelling errors. Time with Patient: Less than 30
[2024-09-02] MEDS: CLOPIDOGREL 75 MG TAB PO SCH (13:59)
--- NOTE | 2024-09-02 15:05 | P.DS ---
Providers Date of admission: 08/03/24 20:00 Attending physician: Jannette Lainez Consults: 08/03/24 19:59 Consult Physician Routine Consulting Provider: Keya Sands Consult Reason/Comments: hypoxia,respFail Do you want consulting provider notified?: Yes Consult Physician Routine Consulting Provider: Jeanie Patricio Consult Reason/Comments: sepsis Do you want consulting provider notified?: Yes 08/14/24 18:38 Consult Physician Urgent Consulting Provider: Long Lilly Consult Reason/Comments: abd pain, distention, ileus, vomiting with persistent nausea Do you want consulting provider notified?: Yes 08/30/24 00:49 Consult Physician Routine Consulting Provider: Kasi Gallardo Consult Reason/Comments: chest pain Do you want consulting provider notified?: Yes 08/30/24 07:17 Consult Physician Routine Consulting Provider: Neurology Coverage Consult Reason/Comments: r/o stroke Do you want consulting provider notified?: Yes Consult Physician Urgent Consulting Provider: Riccardo Espinoza Consult Reason/Comments: code stroke, history of previous stroke Do you want consulting provider notified?: Yes Primary care physician: Crystal Stanton Hospital Course: Final Diagnosis Altered mental status with left facial droop and aphasia; NIH of 6 - code stroke called. Status post TNK Sepsis on admission from likely bilateral gram-negative pneumonia; hospital acquired Recent admission for complicated UTI Acute hypoxemic respiratory failure, currently on 3 L Resolving ileus, gastric distention post NG tube insertion for gastric decompression and the tube was removed Hypotension, secondary to sepsis/septic shock from gram-negative pneumonia on admission Bilateral heel pressure ulcer, present on admission Unstageable sacral pressure ulcer to bilateral sacral regions secondary to incontinence and multiple macerated areas as patient is immobile and mostly at bedbound. Urinary retention, abdominal/pelvis CT from previous admission remarkable for bilateral hydronephrosis, right greater than left, bladder wall thickening, and small bowel ileus, recommend indwelling Ragland catheter Acute kidney injury from ATN resolved. Elevated troponins History of hypertension currently normotensive. 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 Patient needs to follow-up with multiple consultations including cardiology, urology, infectious disease, general surgery, neurology. Recommend to repeat blood work in 2 to 3 days. Patient to continue with pressure offloading for her bilateral heel ulcerations. Additionally patient to continue with pressure offloading for her sacral ulcer and to continue with Medihoney daily with wet to dry dressing. Patient encouraged to eat small frequent meals. Continue with gas drops. Total time taken in discharge planning greater than 35 minutes. Will continue with indwelling Ragland catheter on discharge secondary to the sacral pressure injury. Hospital Course This is a 63-year-old female medical history significant for diabetes mellitus, acid reflux, hypertension, hyperlipidemia, CT, stroke. Patient was recently mated to the hospital from July 23 until August 01 for UTI and sepsis. She was admitted to the rehabilitation center and sent back 2 days later for generalized weakness with altered mentation and hypoxia. Patient had a chest x-ray on admission revealing vascular congestion as well as multifocal airspace opacity concerning for a healthcare acquired pneumonia. Patient was admitted to the intensive care unit. She was started on IV Zosyn empirically for the pneumonia. Patient also has unstageable sacral pressure injury as well as a bilateral ear pressure injury. These are being treated with pressure offloading. Local wound care with the unstageable sacral injury with Medihoney. Infectious disease following. Patient was having multiple episodes of loose stools. Patient was diuresed with IV Lasix. She had an echocardiogram which revealed an EF of 35% with mobile density of the aortic valve with possible vegetation, mild TR, mild MR. On August 15 patient developed abdominal distention and vomiting she had an abdominal x-ray which revealed a distended gas-filled stomach with ileus. An NG tube was placed patient was treated with Reglan and lactulose. Patient was started on TPN/Lipidis. Clinically improved has been weaned off TPN/Lipids and currently tolerating regular diet and encouraged to increase oral intake. She is having BMs daily and not having frequent episodes of loose stools. Patient while on the medical floor had episode of aphasia and left sided facial droop with NIH of 6 and was called a code stroke. Patient received tenecteplase and monitored in the ICU. brain CT negative x 2. Unable to get brain MRI due to spinal stimulator. Had neurology consultation. Improved AOx 3 now with slight residual left facial droop. No focal deficits. Has profound LE weakness bilaterally due to prolonged hospital stay. Repeat echocardiogram reveals EF 55% with no mention of vegetation and cardiology with no plans for PATRICIA. Patient has had prolonged hospital stay with high risk for readmission. At this point she has been cleared by all consultations and recommend discharge to subacute rehab. Most recent blood work reveals a white blood cell count of 8.03, hemoglobin 7.8, sodium level of 136 potassium of 4.7, BUN of 19 creatinine of 0.42, magnesium 1.7. Her lipid panel reveals triglycerides of 111, cholesterol of 89, LDL of 38.3, HDL of 28.50. Patient is afebrile with heart rate of 62 normal sinus rhythm with blood pressure 134/59 and 99% liters of oxygen via nasal cannula. Please see medication reconciliation for a list of current medications. Thank you for allowing us to participate in the care of this patient. The impression and plan of care has been dictated by Jenniffer Almeida, Nurse Practitioner as directed. Dr. Isaias MD I have performed a history and physical examination and medical decision making of this patient, discussed the same with the dictator, and agree with the dictators assessment and plan as written, documented as a scribe. Based on total visit time, I have performed more than 50% of this visit. Patient Condition at Discharge: Fair Plan - Discharge Summary Discharge Rx Participant: No New Discharge Prescriptions: New Spironolactone [Aldactone] 12.5 mg PO DAILY tab Clopidogrel [Plavix] 75 mg PO DAILY tab Sennosides [Senokot] 8.6 mg PO BID tab Metoprolol Succinate (ER) [Toprol XL] 12.5 mg PO DAILY tab ALPRAZolam [Xanax] 0.25 mg PO TID PRN #6 tab PRN Reason: Anxiety Aspirin 81 mg PO DAILY tab bisacodyL [Dulcolax] 10 mg RECTAL DAILY suppositor Ipratropium-Albuterol Nebulize [Duoneb 0.5 mg-3 mg/3 ml Soln] 3 ml INHALATION RT-TID PRN each PRN Reason: Shortness Of Breath Or Wheezing Isosorbide Mononitrate ER [Imdur] 15 mg PO DAILY tab Nitroglycerin Sl Tabs [Nitrostat] 0.4 mg SUBLINGUAL Q5M PRN tab PRN Reason: Chest Pain Continue Atorvastatin [Lipitor] 80 mg PO HS INSULIN LISPRO (humaLOG) [humaLOG] See Protocol SQ ACHS Simethicone 40 mg/0.6 ml Drops [Mylicon Drops] 40 mg PO QID #7 ml Acetaminophen Tab [Tylenol] 650 mg PO Q6HR PRN tab PRN Reason: Mild Pain Or Fever > 100.5 Gabapentin [Neurontin] 100 mg PO HS Fenofibrate [Lofibra] 160 mg PO DAILY DULoxetine HCL [Cymbalta] 60 mg PO HS cilostazoL [Pletal] 50 mg PO BID Lactulose [Cephulac] 20 gm PO BID #360 ml Oxybutynin ER [Ditropan XL] 10 mg PO DAILY #30 tab Pantoprazole [Protonix] 40 mg PO DAILY #30 tab Ondansetron Odt [Zofran ODT] 4 mg PO Q8HR PRN #20 tab PRN Reason: Nausea Changed HYDROcodone/APAP 5-325MG [[place] 5-325] 1 tab PO Q8H PRN #4 tab PRN Reason: Severe Pain (Scale 7 To 10) Discontinued Aspirin 81 mg PO BID #60 tab Clopidogrel [Plavix] 75 mg PO DAILY 30 Days #30 tab cefuroxime axetiL [Ceftin] 500 mg PO BID 7 Days #14 tab Discharge Medication List Atorvastatin [Lipitor] 80 mg PO HS 06/26/16 [History] DULoxetine HCL [Cymbalta] 60 mg PO HS 05/30/24 [History] Fenofibrate [Lofibra] 160 mg PO DAILY 05/30/24 [History] Gabapentin [Neurontin] 100 mg PO HS 05/30/24 [History] INSULIN LISPRO (humaLOG) [humaLOG] See Protocol SQ ACHS 05/30/24 [History] cilostazoL [Pletal] 50 mg PO BID 05/30/24 [History] Acetaminophen Tab [Tylenol] 650 mg PO Q6HR PRN tab 08/01/24 [Rx] Lactulose [Cephulac] 20 gm PO BID #360 ml 08/01/24 [Rx] Ondansetron Odt [Zofran ODT] 4 mg PO Q8HR PRN #20 tab 08/01/24 [Rx] Oxybutynin ER [Ditropan XL] 10 mg PO DAILY #30 tab 08/01/24 [Rx] Pantoprazole [Protonix] 40 mg PO DAILY #30 tab 08/01/24 [Rx] Simethicone 40 mg/0.6 ml Drops [Mylicon Drops] 40 mg PO QID #7 ml 08/01/24 [Rx] ALPRAZolam [Xanax] 0.25 mg PO TID PRN #6 tab 09/02/24 [Rx] Aspirin 81 mg PO DAILY tab 09/02/24 [Rx] Clopidogrel [Plavix] 75 mg PO DAILY tab 09/02/24 [Rx] HYDROcodone/APAP 5-325MG [[place] 5-325] 1 tab PO Q8H PRN #4 tab 09/02/24 [Rx] Ipratropium-Albuterol Nebulize [Duoneb 0.5 mg-3 mg/3 ml Soln] 3 ml INHALATION RT-TID PRN each 09/02/24 [Rx] Isosorbide Mononitrate ER [Imdur] 15 mg PO DAILY tab 09/02/24 [Rx] Metoprolol Succinate (ER) [Toprol XL] 12.5 mg PO DAILY tab 09/02/24 [Rx] Nitroglycerin Sl Tabs [Nitrostat] 0.4 mg SUBLINGUAL Q5M PRN tab 09/02/24 [Rx] Sennosides [Senokot] 8.6 mg PO BID tab 09/02/24 [Rx] Spironolactone [Aldactone] 12.5 mg PO DAILY tab 09/02/24 [Rx] bisacodyL [Dulcolax] 10 mg RECTAL DAILY suppositor 09/02/24 [Rx] Follow up Appointment(s)/Referral(s): Crystal Stanton DO [Primary Care Provider] - 1-2 days [facility], [NON-STAFF] - Jeanie Patricio MD [STAFF PHYSICIAN] - 1 Week Long Lilly MD [STAFF PHYSICIAN] - 1 Week Edmar Pierre MD [STAFF PHYSICIAN] - 1 Week Vipul Lock MD [STAFF PHYSICIAN] - 1 Week Sandra Workman MD [Medical Doctor] - 1 Week (Neurology ) Ambulatory/Diagnostic Orders: Basic Metabolic Panel [LAB.AMB] Location: None Selected Complete Blood Count w/diff [LAB.AMB] Time Frame: 3 Days, Location: None Selected Magnesium [LAB.AMB] Location: None Selected Activity/Diet/Wound Care/Special Instructions: keep bilateral heel area of the pressure to prevent any worsening of the bilateral heel pressure ulcer patient with unstageable sacral pressure ulcer to the sacral area is currently being treated with Medihoney followed by moist dressing keep the area of the pressure Patient to follow up with infectious disease on discharge Continue gas drops and recommend small frequent meals as tolerated Recommend to increase activity level as tolerated Follow up with Neurology Continue aspirin, plavix, high dose lipitor Follow up with cardiology Follow up with urology as prior recommended from 08/01/24 discharge Follow up with general surgery Discharge/Stand Alone Forms: Who Do I Call? Discharge Disposition: TRANSFER TO SNF/ECF
[2024-09-02 16:38] LABS: Glucose,Whole Blood 70 mg/dL (70-110)
[2024-09-02 19:43] VITALS: BP 125/73; PULSE 59; TEMP 97.4
[2024-09-02 19:54] LABS: Glucose,Whole Blood 81 mg/dL (70-110)
== END 2024-09-02 22:24 | DRG 871 ==
LOC: EC 17:38 → 3SCARD 20:00 → 2SICU 08-06 22:18 → 3SCARD 08-08 11:32 → 4SSUR 08-27 18:46 → 2SICU 08-30 07:23 → 3SCARD 09-01 19:00
PROVIDERS: ADMIT Hospitalist; ATTEND Hospitalist
PROC: 0D9670Z Drainage of Stomach with Drainage Device, Via Natural or Artificial Opening (ICD-10-PCS; 2024-08-14)
PROC: B5181ZA Fluoroscopy of Superior Vena Cava using Low Osmolar Contrast, Guidance (ICD-10-PCS; 2024-08-18)
PROC: B548ZZA Ultrasonography of Superior Vena Cava, Guidance (ICD-10-PCS; 2024-08-18)
PROC: 3E0336Z Introduction of Nutritional Substance into Peripheral Vein, Percutaneous Approach (ICD-10-PCS; 2024-08-18)
PROC: 02HV33Z Insertion of Infusion Device into Superior Vena Cava, Percutaneous Approach (ICD-10-PCS; principal; 2024-08-18 09:45)
PROC: 3E03317 Introduction of Other Thrombolytic into Peripheral Vein, Percutaneous Approach (ICD-10-PCS; 2024-08-30)
DX: A41.50 Gram-negative sepsis, unspecified (principal); E43 Unspecified severe protein-calorie malnutrition; G93.41 Metabolic encephalopathy; J96.01 Acute respiratory failure with hypoxia; R65.21 Severe sepsis with septic shock; J15.69 Pneumonia due to other Gram-negative bacteria; I50.43 Acute on chronic combined systolic (congestive) and diastolic (congestive) heart failure; I69.351 Hemiplegia and hemiparesis following cerebral infarction affecting right dominant side; J44.1 Chronic obstructive pulmonary disease with (acute) exacerbation; E11.51 Type 2 diabetes mellitus with diabetic peripheral angiopathy without gangrene; I11.0 Hypertensive heart disease with heart failure; D64.9 Anemia, unspecified; I65.29 Occlusion and stenosis of unspecified carotid artery; K56.7 Ileus, unspecified; J44.0 Chronic obstructive pulmonary disease with (acute) lower respiratory infection; G81.94 Hemiplegia, unspecified affecting left nondominant side; B37.49 Other urogenital candidiasis; N17.9 Acute kidney failure, unspecified; N13.30 Unspecified hydronephrosis; I47.19 Other supraventricular tachycardia; R47.01 Aphasia; L89.150 Pressure ulcer of sacral region, unstageable; L89.610 Pressure ulcer of right heel, unstageable; E11.65 Type 2 diabetes mellitus with hyperglycemia; E11.43 Type 2 diabetes mellitus with diabetic autonomic (poly)neuropathy; E11.649 Type 2 diabetes mellitus with hypoglycemia without coma; Z79.4 Long term (current) use of insulin; Z89.432 Acquired absence of left foot; E11.42 Type 2 diabetes mellitus with diabetic polyneuropathy; E78.5 Hyperlipidemia, unspecified; I25.10 Atherosclerotic heart disease of native coronary artery without angina pectoris; I25.5 Ischemic cardiomyopathy; Z68.24 Body mass index [BMI] 24.0-24.9, adult; R54 Age-related physical debility; R29.706 NIHSS score 6; L89.629 Pressure ulcer of left heel, unspecified stage; Z53.20 Procedure and treatment not carried out because of patient's decision for unspecified reasons; K21.9 Gastro-esophageal reflux disease without esophagitis; G89.29 Other chronic pain; F17.210 Nicotine dependence, cigarettes, uncomplicated; G47.00 Insomnia, unspecified; F41.9 Anxiety disorder, unspecified; I25.2 Old myocardial infarction; R33.8 Other retention of urine; K31.84 Gastroparesis; K31.89 Other diseases of stomach and duodenum; R29.810 Facial weakness; R32 Unspecified urinary incontinence; Y95 Nosocomial condition; Z74.01 Bed confinement status; Z79.02 Long term (current) use of antithrombotics/antiplatelets; Z79.82 Long term (current) use of aspirin; Z79.899 Other long term (current) drug therapy; Z82.49 Family history of ischemic heart disease and other diseases of the circulatory system; Z87.11 Personal history of peptic ulcer disease; Z87.440 Personal history of urinary (tract) infections; Z91.199 Patient's noncompliance with other medical treatment and regimen due to unspecified reason; Z95.1 Presence of aortocoronary bypass graft; Z95.5 Presence of coronary angioplasty implant and graft; Z89.421 Acquired absence of other right toe(s); Z86.79 Personal history of other diseases of the circulatory system; Z90.49 Acquired absence of other specified parts of digestive tract; Z87.19 Personal history of other diseases of the digestive system
CPT/HCPCS: 36410; 36415; 36573; 70450; 70496; 70498; 71045; 72020; 74018; 74019; 74176; 76937; 80048; 80053; 80061; 81001; 81003; 82330; 83036; 83605; 83690; 83735; 83880; 84100; 84132; 84145; 84478; 84484; 85025; 85027; 85610; 85730; 87040; 87086; 87324; 87449; 87636; 93005; 93306; 93308; 94640; 94660; 94760; 96361; 96365; 96366; 96367; 96368; 96375; 99291

== ENCOUNTER 2024-09-11 12:13 | Inpatient (IN) | payer MEDICARE ==
--- NOTE | 2024-09-11 12:45 | ED ---
Weakness HPI - General Chief complaint: Weakness Stated complaint: Weakness Time Seen by Provider: 09/11/24 12:28 Source: patient, EMS, RN notes reviewed Mode of arrival: EMS Limitations: no limitations - History of Present Illness Initial comments: This is a 63-year-old female who presents to the emergency department for weakness. In May of this year patient fell and broke her hip and has been in and out of the hospital since. States that she keeps getting severe respiratory and urinary tract infections. When she was discharged last month she felt better for a couple of days before starting to feel very weak again. Reports ongoing shortness of breath and bouts of chest pain. States that she is currently experiencing heaviness in her chest. Denies any abdominal pain, nausea, or vomiting. States that she has no appetite and just in general feels like she has no energy. She is currently living at [facility] for rehab. Believes that she is currently on an antibiotic, but is unsure which one or what she would be taking it for. MD Complaint: generalized weakness - Related Data Home Medications Medication Instructions Recorded Confirmed Atorvastatin [Lipitor] 80 mg PO HS 06/26/16 09/11/24 DULoxetine HCL [Cymbalta] 60 mg PO HS 05/30/24 09/11/24 Fenofibrate [Lofibra] 160 mg PO DAILY 05/30/24 09/11/24 Gabapentin [Neurontin] 100 mg PO HS 05/30/24 09/11/24 INSULIN LISPRO (humaLOG) [humaLOG] See Protocol SQ ACHS@07,11,16,20 05/30/24 09/11/24 cilostazoL [Pletal] 50 mg PO BID 05/30/24 09/11/24 Acetaminophen [Tylenol 8 Hour] 650 mg PO Q6H PRN 09/11/24 09/11/24 Ascorbic Acid [Vitamin C] 500 mg PO DAILY 09/11/24 09/11/24 Aspirin 81 mg PO DAILY@1400 09/11/24 09/11/24 Docusate [Colace] 200 mg PO BID 09/11/24 09/11/24 HYDROcodone/APAP 5-325MG [Ashley 1 tab PO Q6H PRN 09/11/24 09/11/24 5-325] Isosorbide Mononitrate ER [Imdur] 15 mg PO DAILY 09/11/24 09/11/24 Naloxone HCl 0.4 mg IM DIRECTED PRN 09/11/24 09/11/24 Naloxone HCl [Narcan] 4 mg NASAL DIRECTED PRN 09/11/24 09/11/24 Omeprazole [PriLOSEC] 20 mg PO DAILY 09/11/24 09/11/24 Sennosides [Senokot] 17.2 mg PO BID 09/11/24 09/11/24 bisacodyL [Dulcolax] 10 mg RECTAL DAILY PRN 09/11/24 09/11/24 Previous Rx's Medication Instructions Recorded Ondansetron Odt [Zofran ODT] 4 mg PO Q8HR PRN #20 tab 08/01/24 Oxybutynin ER [Ditropan XL] 10 mg PO DAILY #30 tab 08/01/24 ALPRAZolam [Xanax] 0.25 mg PO TID PRN #6 tab 09/02/24 Clopidogrel [Plavix] 75 mg PO DAILY tab 09/02/24 Ipratropium-Albuterol Nebulize 3 ml INHALATION RT-TID PRN each 09/02/24 [Duoneb 0.5 mg-3 mg/3 ml Soln] Metoprolol Succinate (ER) [Toprol 12.5 mg PO DAILY tab 09/02/24 XL] Nitroglycerin Sl Tabs [Nitrostat] 0.4 mg SUBLINGUAL Q5M PRN tab 09/02/24 Spironolactone [Aldactone] 12.5 mg PO DAILY tab 09/02/24 Allergies Allergy/AdvReac Type Severity Reaction Status Date / Time No Known Allergies Allergy Verified 09/11/24 15:52 Review of Systems ROS Statement: Those systems with pertinent positive or pertinent negative responses have been documented in the HPI. ROS Other: All systems not noted in ROS Statement are negative. 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 , unsteady gait., see Cardiology [facility]. INPT FOR LT FOOT ULCER-WAS SEEN IN WOUND CARE 03/26/23-HAS DRESSING ON FOOT Last Myocardial Infarction Date:: february 2017 History of Any Multi-Drug Resistant Organisms: None Reported Past Surgical History: Back Surgery, Cholecystectomy, Heart Catheterization With Stent, Orthopedic Surgery Additional Past Surgical History / Comment(s): Right 5th toe amputation, lumbar fusion, spinal cord stimulator in place but not working., left knee arthroscopy, EGD, PATRICIA, 3 cardiac stents, Aortoram, stent to left iliac artery. , stent right leg above the knee, right 4th toe amputation. ANGIOGRAM,m 04/11/23 left toes amputation. Past Anesthesia/Blood Transfusion Reactions: No Reported Reaction Additional Past Anesthesia/Blood Transfusion Reaction / Comment(s): . Date of Last Stent Placement:: 12/14/2021 Past Psychological History: Anxiety Smoking Status: Former smoker Past Alcohol Use History: None Reported Past Drug Use History: None Reported - Past Family History Father Family Medical History: Cancer, Liver Disease Additional Family Medical History / Comment(s): Idiopathic cirrhosis of liver, Liver Cancer. Mother Family Medical History: Coronary Artery Disease (CAD), Myocardial Infarction ([place]) Additional Family Medical History / Comment(s): Multiple stents. Mother at the age of 77 or 78 from [place]. General Exam General appearance: alert, in no apparent distress Head exam: Present: atraumatic, normocephalic, normal inspection Respiratory exam: Present: decreased breath sounds, prolonged expiratory Cardiovascular Exam: Present: regular rate, normal rhythm GI/Abdominal exam: Present: soft. Absent: distended, tenderness Neurological exam: Present: alert, oriented X3, CN II-XII intact Psychiatric exam: Present: normal affect, normal mood Skin exam: Present: warm, dry, intact, normal color. Absent: rash Course Vital Signs 09/11/24 09/11/24 09/11/24 12:17 12:45 13:56 Temperature 98.5 F Pulse Rate 77 70 Respiratory 18 20 Rate Blood Pressure 109/79 87/57 112/67 O2 Sat by Pulse 97 100 Oximetry 09/11/24 09/11/24 09/11/24 16:06 16:30 18:51 Temperature 98.6 F 98.4 F Pulse Rate 71 73 Respiratory 19 17 Rate Blood Pressure 116/67 119/61 134/60 O2 Sat by Pulse 100 100 Oximetry Medical Decision Making - Medical Decision Making This is a 63-year-old female who presents to the emergency department for weakness. Was pt. sent in by a medical professional or institution? @ -No Did you speak to anyone other than the patient for history? @ -No Did you review nursing and triage notes? @ -Yes, and I agree, it is accurate with regards to the patient's symptoms. Were old charts reviewed? @ -No Differential Diagnosis? @ -Differential Weakness: Hypoglycemia, shock, sepsis, hyponatremia, anemia, infection, [place], ETOH, adverse medicine reaction, overdose, stroke, this is not meant to be an all-inclusive list. EKG interpreted by me (3pts min.)? @ -EKG interpreted by me demonstrating the following: Sinus rhythm. Ventricular rate 76 bpm, OK interval 154 ms, QRS duration 82 ms, QTc 417 ms. X-rays interpreted by me (1pt min.)? @ -Chest x-ray obtained, my interpretation identifies no localized consolidatio ns or infiltrates. CT interpreted by me (1pt min.)? @ -Not obtained U/S interpreted by me (1pt. min.)? @ -Not obtained What testing was considered but not performed? (CT, X-rays, U/S, labs)? Why? @ -None What meds were considered but not given? Why? @ -None Did you discuss the management of the patient with other professionals? @ -Yes, Dr. Lainez, who accepts the patient for admission. Did you reconcile home meds? @ -No Was smoking cessation discussed for >3mins.? @ -No Was critical care preformed (if so, how long)? @ -No Were there social determinants of health that impacted care today? How? (Homelessness, low income, unemployed, alcoholism, drug addiction, transportatio n, low edu. Level, literacy, decrease access to med. care, fci, rehab)? @ -No Was there de-escalation of care discussed even if they declined? (Discuss DNR or withdrawal of care, Hospice)? @ -No What co-morbidities impacted this encounter? (DM, HTN, Smoking, COPD, CAD, Cancer, CVA, Hep., AIDS, mental health diagnosis, sleep apnea, morbid obesity)? @ -DM, HLD, HTN Was patient admitted / discharged? @ -Admitted. Lab work demonstrates a BNP of 1430 but is otherwise relatively unremarkable. COVID, influenza, and RSV testing negative. Urinalysis does have elevated leukocytes, however she does also have a chronic indwelling Ragland catheter. Chest x-ray reveals no acute findings. She did start to complain of chest heaviness and her EKG was evaluated with ED attending Dr. Adhikari. There is concern about changes, particularly ST depression on the EKG. Given the EKG changes with associated chest heaviness, patient was admitted to medicine for cardiac observation. Serial troponins were ordered and consult placed for cardiology. Undiagnosed new problem with uncertain prognosis? @ -None Drug Therapy requiring intensive monitoring for toxicity (Heparin, Nitro, Insulin, Cardizem)? @ -None Were any procedures done? @ -None Diagnosis/symptom? @ -Chest pain, EKG changes, weakness Acute, or Chronic, or Acute on Chronic? @ -Acute Uncomplicated (without systemic symptoms) or Complicated (systemic symptoms)? @ -Complicated Side effects of treatment? @ -None Exacerbation, Progression, or Severe Exacerbation] @ -Not applicable Poses a threat to life or bodily function? @ -Yes, if due to ACS can be life-threatening - Lab Data Result diagrams: 09/11/24 13:02 09/11/24 13:02 Lab Results 09/11/24 09/11/24 09/11/24 Range/Units 13:02 13:02 13:02 WBC 6.81 (4.50-10.00) 10*3/uL RBC 3.67 L (4.10-5.20) 10*6/uL Hgb 10.4 L (12.0-15.0) g/dL Hct 31.3 L (37.2-46.3) % MCV 85.3 (80.0-97.0) fL MCH 28.3 (27.0-32.0) pg MCHC 33.2 (32.0-37.0) g/dL Plt Count 243 (140-440) 10*3/uL MPV 9.6 (9.5-12.2) fL Immature Gran % (Auto) 0.4 % Neutrophils % 78.6 % Lymphocytes % 15.1 % Monocytes % 5.0 % Eosinophils % 0.3 % Basophils % 0.6 % Immature Gran # 0.03 (0.00-0.04) 10*3/uL Neutrophils # 5.35 (1.80-7.70) 10*3/uL Lymphocytes # 1.03 (0.90-5.00) 10*3/uL Monocytes # 0.34 (0.20-1.00) 10*3/uL Eosinophils # 0.02 L (0.04-0.35) 10*3/uL Basophils # 0.04 (0.00-0.10) 10*3/uL PT 11.3 (10.0-12.5) sec INR 1.0 (<1.2) APTT 23.6 (22.0-30.0) sec Sodium 131 L (137-145) mmol/L Potassium 4.7 (3.5-5.1) mmol/L Chloride 92 L (98-107) mmol/L Carbon Dioxide 28 (22-30) mmol/L Anion Gap 11 mmol/L BUN 16 (7-17) mg/dL Creatinine 0.43 L (0.52-1.04) mg/dL Est GFR (CKD-EPI)AfAm >90 (>60 ml/min/1.73 sqM) Est GFR (CKD-EPI)NonAf >90 (>60 ml/min/1.73 sqM) Glucose 237 H (74-99) mg/dL Plasma Lactic Acid Yousif (0.7-2.0) mmol/L Calcium 9.3 (8.4-10.2) mg/dL Magnesium 1.8 (1.6-2.3) mg/dL Total Bilirubin 0.5 (0.2-1.3) mg/dL AST 21 (14-36) U/L ALT 11 (4-34) U/L Alkaline Phosphatase 68 (38-126) U/L Troponin I (0.000-0.034) ng/mL NT-Pro-B Natriuret Pep 1430 pg/mL Total Protein 6.5 (6.3-8.2) g/dL Albumin 3.5 (3.5-5.0) g/dL Urine Color Urine Appearance (Clear) Urine pH (5.0-8.0) Ur Specific Bonita (1.001-1.035) Urine Protein (Negative) Urine Glucose (UA) (Negative) Urine Ketones (Negative) Urine Blood (Negative) Urine Nitrite (Negative) Urine Bilirubin (Negative) Urine Urobilinogen (<2.0) mg/dL Ur Leukocyte Esterase (Negative) Urine RBC (0-5) /hpf Urine WBC (0-5) /hpf Ur Squamous Epith Cells (0-4) /hpf Urine Mucus (None) /hpf Influenza Type A (PCR) (Not Detectd) Influenza Type B (PCR) (Not Detectd) RSV (PCR) (Not Detectd) SARS-CoV-2 (PCR) (Not Detectd) 09/11/24 09/11/24 09/11/24 Range/Units 13:02 13:02 13:02 WBC (4.50-10.00) 10*3/uL RBC (4.10-5.20) 10*6/uL Hgb (12.0-15.0) g/dL Hct (37.2-46.3) % MCV (80.0-97.0) fL MCH (27.0-32.0) pg MCHC (32.0-37.0) g/dL Plt Count (140-440) 10*3/uL MPV (9.5-12.2) fL Immature Gran % (Auto) % Neutrophils % % Lymphocytes % % Monocytes % % Eosinophils % % Basophils % % Immature Gran # (0.00-0.04) 10*3/uL Neutrophils # (1.80-7.70) 10*3/uL Lymphocytes # (0.90-5.00) 10*3/uL Monocytes # (0.20-1.00) 10*3/uL Eosinophils # (0.04-0.35) 10*3/uL Basophils # (0.00-0.10) 10*3/uL PT (10.0-12.5) sec INR (<1.2) APTT (22.0-30.0) sec Sodium (137-145) mmol/L Potassium (3.5-5.1) mmol/L Chloride (98-107) mmol/L Carbon Dioxide (22-30) mmol/L Anion Gap mmol/L BUN (7-17) mg/dL Creatinine (0.52-1.04) mg/dL Est GFR (CKD-EPI)AfAm (>60 ml/min/1.73 sqM) Est GFR (CKD-EPI)NonAf (>60 ml/min/1.73 sqM) Glucose (74-99) mg/dL Plasma Lactic Acid Yousif 1.6 (0.7-2.0) mmol/L Calcium (8.4-10.2) mg/dL Magnesium (1.6-2.3) mg/dL Total Bilirubin (0.2-1.3) mg/dL AST (14-36) U/L ALT (4-34) U/L Alkaline Phosphatase (38-126) U/L Troponin I <0.012 (0.000-0.034) ng/mL NT-Pro-B Natriuret Pep pg/mL Total Protein (6.3-8.2) g/dL Albumin (3.5-5.0) g/dL Urine Color Urine Appearance (Clear) Urine pH (5.0-8.0) Ur Specific Bonita (1.001-1.035) Urine Protein (Negative) Urine Glucose (UA) (Negative) Urine Ketones (Negative) Urine Blood (Negative) Urine Nitrite (Negative) Urine Bilirubin (Negative) Urine Urobilinogen (<2.0) mg/dL Ur Leukocyte Esterase (Negative) Urine RBC (0-5) /hpf Urine WBC (0-5) /hpf Ur Squamous Epith Cells (0-4) /hpf Urine Mucus (None) /hpf Influenza Type A (PCR) Not Detected (Not Detectd) Influenza Type B (PCR) Not Detected (Not Detectd) RSV (PCR) Not Detected (Not Detectd) SARS-CoV-2 (PCR) Not Detected (Not Detectd) 09/11/24 09/11/24 Range/Units 14:10 17:42 WBC (4.50-10.00) 10*3/uL RBC (4.10-5.20) 10*6/uL Hgb (12.0-15.0) g/dL Hct (37.2-46.3) % MCV (80.0-97.0) fL MCH (27.0-32.0) pg MCHC (32.0-37.0) g/dL Plt Count (140-440) 10*3/uL MPV (9.5-12.2) fL Immature Gran % (Auto) % Neutrophils % % Lymphocytes % % Monocytes % % Eosinophils % % Basophils % % Immature Gran # (0.00-0.04) 10*3/uL Neutrophils # (1.80-7.70) 10*3/uL Lymphocytes # (0.90-5.00) 10*3/uL Monocytes # (0.20-1.00) 10*3/uL Eosinophils # (0.04-0.35) 10*3/uL Basophils # (0.00-0.10) 10*3/uL PT (10.0-12.5) sec INR (<1.2) APTT (22.0-30.0) sec Sodium (137-145) mmol/L Potassium (3.5-5.1) mmol/L Chloride (98-107) mmol/L Carbon Dioxide (22-30) mmol/L Anion Gap mmol/L BUN (7-17) mg/dL Creatinine (0.52-1.04) mg/dL Est GFR (CKD-EPI)AfAm (>60 ml/min/1.73 sqM) Est GFR (CKD-EPI)NonAf (>60 ml/min/1.73 sqM) Glucose (74-99) mg/dL Plasma Lactic Acid Yousif (0.7-2.0) mmol/L Calcium (8.4-10.2) mg/dL Magnesium (1.6-2.3) mg/dL Total Bilirubin (0.2-1.3) mg/dL AST (14-36) U/L ALT (4-34) U/L Alkaline Phosphatase (38-126) U/L Troponin I <0.012 (0.000-0.034) ng/mL NT-Pro-B Natriuret Pep pg/mL Total Protein (6.3-8.2) g/dL Albumin (3.5-5.0) g/dL Urine Color Light Yellow Urine Appearance Cloudy H (Clear) Urine pH 6.5 (5.0-8.0) Ur Specific Bonita 1.017 (1.001-1.035) Urine Protein Trace H (Negative) Urine Glucose (UA) 3+ H (Negative) Urine Ketones Negative (Negative) Urine Blood Negative (Negative) Urine Nitrite Negative (Negative) Urine Bilirubin Negative (Negative) Urine Urobilinogen <2.0 (<2.0) mg/dL Ur Leukocyte Esterase Large H (Negative) Urine RBC 6 H (0-5) /hpf Urine WBC 122 H (0-5) /hpf Ur Squamous Epith Cells 1 (0-4) /hpf Urine Mucus Rare H (None) /hpf Influenza Type A (PCR) (Not Detectd) Influenza Type B (PCR) (Not Detectd) RSV (PCR) (Not Detectd) SARS-CoV-2 (PCR) (Not Detectd) - Radiology Data Radiology results: report reviewed, image reviewed Disposition Clinical Impression: Weakness, Chest pain, Acute electrocardiogram changes Disposition: ADMITTED IP TO THIS HOSP
[2024-09-11 13:17] LABS: Basophils # (A) 0.04 10*3/uL (0.00-0.10); Basophils % (A) 0.6 %; Eosinophils # (A) 0.02 10*3/uL (0.04-0.35); Eosinophils % (A) 0.3 %; HCT 31.3 % (37.2-46.3); HGB 10.4 g/dL (12.0-15.0); Lymphocytes # (A) 1.03 10*3/uL (0.90-5.00); Lymphocytes % (A) 15.1 %; MCH 28.3 pg (27.0-32.0); MCHC 33.2 g/dL (32.0-37.0); MCV 85.3 fL (80.0-97.0); Monocytes # (A) 0.34 10*3/uL (0.20-1.00); Monocytes % (A) 5.0 %; Neutrophils # (A) 5.35 10*3/uL (1.80-7.70); Neutrophils % (A) 78.6 %; Platelet Count 243 10*3/uL (140-440); RBC 3.67 10*6/uL (4.10-5.20); RDW 16.7 % (11.5-14.5); WBC 6.81 10*3/uL (4.50-10.00)
[2024-09-11 13:29] LABS: INR 1.0 (<1.2); Partial Thromboplastin Time 23.6 sec (22.0-30.0); Prothrombin Time 11.3 sec (10.0-12.5)
[2024-09-11 13:35] LABS: ALT 11 U/L (4-34); AST 21 U/L (14-36); African American GFR (CKD) >90 (>60 ml/min/1.73 sqM); Albumin 3.5 g/dL (3.5-5.0); Alkaline Phosphatase 68 U/L (38-126); Anion Gap 11 mmol/L; Blood Urea Nitrogen 16 mg/dL (7-17); Calcium 9.3 mg/dL (8.4-10.2); Carbon Dioxide 28 mmol/L (22-30); Chloride 92 mmol/L (98-107); Glucose 237 mg/dL (74-99); Magnesium 1.8 mg/dL (1.6-2.3); Non-African American GFR(CKD) >90 (>60 ml/min/1.73 sqM); Potassium 4.7 mmol/L (3.5-5.1); Sodium 131 mmol/L (137-145); Total Protein 6.5 g/dL (6.3-8.2)
[2024-09-11 13:43] LABS: NT-Pro-B-Type Natriuretic Pept 1430 pg/mL
[2024-09-11 13:54] LABS: RSV Not Detected (Not Detectd)
[2024-09-11] MEDS: LACTATED RINGERS 1,000 ML IV SCH (13:59)
[2024-09-11] MEDS: HYDROcodone/APAP 5-325MG 1 EACH TAB PO STA (14:47)
[2024-09-11] MEDS: ALPRAZolam 0.25 MG TAB PO STA ×2 (14:47→16:19)
--- NOTE | 2024-09-11 14:54 | XR ---
EXAMINATION TYPE: XR chest 2V DATE OF EXAM: 09/11/2024 2:20 PM COMPARISON: 08/30/2024 CLINICAL INDICATION: Female, 63 years old with history of Weakness, , TECHNIQUE: AP and lateral views FINDINGS: Heart normal size. Atherosclerotic arch calcifications. No consolidation or pleural effusion. Hyperin flation. Spinal stimulator array centered along the lower thoracic spinal canal. Nipple shadow periph kendall of the right base. IMPRESSION: COPD. No acute process seen. [facility], Workstation: [employer], 09/11/2024 2:52 PM
[2024-09-11 15:19] LABS: Bilirubin,Urine Negative (Negative); Blood,Urine Negative (Negative); Color,Urine Light Yellow; Glucose,Urine (UA) 3+ (Negative); Ketones,Urine Negative (Negative); Leukocyte Esterase,Urine Large (Negative); Mucus,Urine Rare /hpf; Nitrite,Urine Negative (Negative); PH, Urine 6.5 (5.0-8.0); Protein,Urine Trace (Negative); RBC,Urine 6 /hpf (0-5); Specific Gravity,Urine 1.017 (1.001-1.035); Squamous Epithelial Cell,Urine 1 /hpf (0-4); Urobilinogen,Urine <2.0 mg/dL (<2.0); WBC,Urine 122 /hpf (0-5)
[2024-09-11] MEDS: NITROGLYCERIN OINT 1 INCH/GM PACKET TOPICAL STA (16:16)
[2024-09-11] MEDS: ASPIRIN 81 MG PO STA (16:19)
[2024-09-11] MEDS ORDERED: ACETAMINOPHEN TAB 325 MG TAB PO PRN (17:24)
[2024-09-11] MEDS ORDERED: ONDANSETRON 4 MG/2 ML VIAL IVP PRN (17:24)
[2024-09-11] MEDS ORDERED: NALOXONE 0.4 MG/ML 1 ML VIAL IV PRN (17:24)
[2024-09-11] MEDS ORDERED: MORPHINE SULFATE 4 MG/ML SYRINGE IV PRN (17:24)
[2024-09-11] MEDS ORDERED: NON FORMULARY DRUG (Acetaminophen [Tylenol 8 Hour] 650 MG Tablet) PO PRN (18:13)
[2024-09-11] MEDS ORDERED: NON FORMULARY DRUG (Naloxone Hcl [Narcan] 4 MG Each) NASAL PRN (18:13)
[2024-09-11] MEDS ORDERED: NON FORMULARY DRUG (Naloxone Hcl [Naloxone Hcl] 0.4 MG/ML Cartridge) IM PRN (18:13)
[2024-09-11] MEDS ORDERED: IPRATROPIUM-ALBUTEROL 3 ML NEB INHALATION PRN (18:13)
[2024-09-11] MEDS ORDERED: IOPAMIDOL CONTRAST (ORAL USE) VIAL PO PRN (18:16)
[2024-09-11] MEDS: HYDROcodone/APAP 5-325MG 1 EACH TAB PO PRN (18:55)
--- NOTE | 2024-09-11 21:39 | CT ---
EXAMINATION TYPE: CT abdomen pelvis wo con DATE OF EXAM: 09/11/2024 8:26 PM COMPARISON: Multiple prior CT studies, most recently dated 08/17/2024. CLINICAL INDICATION: Female, 63 years old with history of abd pain; abdominal pain TECHNIQUE: Axial CT abdomen pelvis wo con;Sagittal and coronal reformats were created on a separate workstation. Oral contrast used: with Oral Contrast (none if empty) CT DLP: 591.9 mGycm, Automated exposure control for dose reduction was used. FINDINGS: LOWER CHEST: Trace bilateral pleural effusions. ABDOMEN LIVER: Unremarkable GALLBLADDER AND BILE DUCTS: The gallbladder is surgically absent. PANCREAS: Unremarkable. SPLEEN: Splenomegaly. ADRENAL GLANDS: Unremarkable. KIDNEYS AND URETERS: Mild right-sided hydronephrosis without discrete evidence of an obstructing ston e. Nonobstructing right renal calculus. No evidence for left-sided nephrolithiasis. PELVIS BLADDER: Intraluminal Ragland catheter. Circumferential urinary bladder wall thickening. REPRODUCTIVE: Unremarkable. ABDOMEN & PELVIS STOMACH AND BOWEL: Stomach and duodenum are unremarkable. Moderate to large volume colonic stool jose en. Likely impacted rectosigmoid stool. No evidence of bowel obstruction. PERITONEUM/RETROPERITONEUM: No evidence of pneumoperitoneum or free fluid. VASCULATURE: No evidence of aortic aneurysm. [Graft the partially visualized right superficial femora l artery. MUSCULOSKELETAL: No acute osseous abnormalities. Posterior lumbosacral spine fusion spanning L4-S1. LYMPH NODES: No gross evidence for lymphadenopathy. SOFT TISSUE/ABDOMINAL WALL: Unremarkable IMPRESSION: 1. Moderate to large volume diffuse colonic stool burden suggesting constipation. Nonspecific gastri c distention without definite evidence of outlet obstruction. 2. Mild right-sided hydroureteronephrosis without discrete evidence of an obstructing stone. Finding s are similar to recent study 08/17/2024. Outpatient CT urogram study is recommended for further evalu ation. 3. Trace bilateral pleural effusions. [facility], , 09/11/2024 9:37 PM
[2024-09-11] MEDS: SENNOSIDES 8.6 MG TAB PO SCH (22:29)
[2024-09-11] MEDS: DOCUSATE 100 MG CAP PO SCH (22:30)
[2024-09-11] MEDS: ATORVASTATIN 80 MG TAB PO SCH (22:30)
[2024-09-11] MEDS: GABAPENTIN 100 MG CAP PO SCH (22:30)
[2024-09-11] MEDS: DULoxetine HCL 60 MG CAPSULE.DR PO SCH (22:30)
[2024-09-11] MEDS: PANTOPRAZOLE 40 MG/10 ML VIAL IVP SCH (22:36)
--- NOTE | 2024-09-12 00:25 | HP ---
HISTORY AND PHYSICAL CHIEF COMPLAINT: Weakness as well as chest pain. HISTORY OF PRESENT ILLNESS: This 63-year-old woman, who was admitted recently with multiple complex medical issues, UTI, pneumonia, sepsis, is living at home. Currently, the patient having increasing weakness and also some chest pain, heaviness in the lower part of the chest and upper part of the abdomen. The patient came to [place], was admitted for evaluation and treatment. The EKG showed some ST-T changes. There is no history of fever, rigors or chills. Urine, has history of UTI. PAST MEDICAL HISTORY: History of pneumonia, UTI, diabetes, history of myocardial infarction. Rest of the history and chart is also reviewed. HOME MEDICATIONS: Reviewed include nitroglycerin. Dose and rest of medications are reviewed. ALLERGIES: None. FAMILY HISTORY: History of liver disease, cirrhosis of liver. SOCIAL HISTORY: Previous history of smoking. REVIEW OF SYSTEMS: A 14-point review of systems negative except as mentioned earlier. PHYSICAL EXAMINATION: VITAL SIGNS: Pulse 71, blood pressure 116/67, and respirations 18. HEENT: Sclerae and conjunctivae normal. NECK: No JVD. CARDIOVASCULAR: S1, S2. RESPIRATION: Breath sounds diminished at the bases. ABDOMEN: Soft, mild diffuse tenderness in the epigastrium. Mild distention. LEGS: No edema. NERVOUS SYSTEM: Diffusely weak. LABORATORY DATA: Reviewed. ASSESSMENT: 1. Chest pain, possible unstable angina. 2. Possible urinary tract infection. 3. History of recent pneumonia, urinary tract infection and sepsis. 4. History of CVA, TIA. 5. Diabetes mellitus, type 2. 6. History of CAD stent. 7. History of anxiety. 8. Full code. 9. Multiple complex medical issues. RECOMMENDATIONS: This 63-year-old woman presented with multiple complex medical issues. We will monitor the patient closely. I would rule out myocardial infarction, Cardiology consultation. I would also recommend CT scan of the abdomen and pelvis to rule out any possibility of acute abdomen also. Prognosis guarded because of multiple complex medical issues. Further recommendations to follow. See orders for details. MMODL / IJN: [id number] /
[2024-09-12] MEDS: ALPRAZolam 0.25 MG TAB PO PRN (00:29)
[2024-09-12 06:03] LABS: Glucose,Whole Blood 198 mg/dL (70-110)
[2024-09-12] MEDS ORDERED: NON FORMULARY DRUG (Omeprazole 20 MG Capsule.Dr) PO SCH (09:00)
[2024-09-12] MEDS ORDERED: PANTOPRAZOLE 40 MG/10 ML VIAL IV SCH (09:00)
[2024-09-12] MEDS ORDERED: FENOFIBRATE 160 MG TAB PO SCH (09:00)
[2024-09-12] MEDS: ASCORBIC ACID 500 MG TAB PO SCH (09:22)
[2024-09-12] MEDS: ISOSORBIDE MONONITRATE ER 15 MG TAB PO SCH (09:22)
[2024-09-12] MEDS: SPIRONOLACTONE 25 MG TAB PO SCH (09:22)
[2024-09-12] MEDS: CLOPIDOGREL 75 MG TAB PO SCH (09:22)
[2024-09-12] MEDS: METOPROLOL SUCCINATE (ER) 25 MG TAB.ER.24H PO SCH (09:22)
[2024-09-12] MEDS: OXYBUTYNIN 10 MG TAB.ER.24 PO SCH (09:22)
[2024-09-12 09:24] LABS: Basophils # (A) 0.04 X 10*3/uL (0.00-0.10); Basophils % (A) 0.4 %; Eosinophils # (A) 0.10 X 10*3/uL (0.04-0.35); Eosinophils % (A) 1.1 %; HCT 28.4 % (37.2-46.3); HGB 8.9 g/dL (12.0-15.0); Immature Grans, Automated 0.60 %; Lymphocytes # (A) 1.66 X 10*3/uL (0.90-5.00); Lymphocytes % (A) 17.7 %; MCH 27.3 pg (27.0-32.0); MCHC 31.3 g/dL (32.0-37.0); MCV 87.1 FL (80.0-97.0); Monocytes # (A) 0.84 X 10*3/uL (0.20-1.00); Monocytes % (A) 8.9 %; NRBC Per 100 WBC 0 X 10*3/uL (0.00-0.01); Neutrophils # (A) 6.70 X 10*3/uL (1.80-7.70); Neutrophils % (A) 71.3 %; Platelet Count 267 X 10*3/uL (140-440); RBC 3.26 X 10*6/uL (4.10-5.20); RDW 16.6 % (11.5-14.5); WBC 9.40 X 10*3/uL (4.50-10.00)
[2024-09-12 10:42] LABS: ALT 9 U/L (8-44); AST 12 U/L (13-35); Albumin 3.2 g/dL (3.8-4.9); Albumin/Globulin Ratio 1.28 Ratio (1.60-3.17); Alkaline Phosphatase 59 U/L (41-126); Anion Gap 11.80 mmol/L (4.00-12.00); BUN/Creat Ratio 26.75 Ratio (12.00-20.00); Blood Urea Nitrogen 10.7 mg/dL (9.0-27.0); Calcium 8.9 mg/dL (8.7-10.3); Carbon Dioxide 25.2 mmol/L (21.6-31.8); Chloride 96 mmol/L (96-109); Globulin 2.5 g/dL (1.6-3.3); Glucose 176 mg/dL (70-110); Potassium 4.2 mmol/L (3.5-5.5); Sodium 133 mmol/L (135-145); Total Protein 5.7 g/dL (6.2-8.2)
--- NOTE | 2024-09-12 12:03 | P.CRDCN ---
History of Present Illness Consult date: 09/12/24 Consult reason: chest pain History of present illness: This is 63-year-old female patient of Dr. Lock with past medical history of coronary artery disease with prior triple-vessel stenting as well as lower extremity PAD status post stenting of bilateral iliac and bilateral SFA followed by amputation, ischemic cardiomyopathy, carotid atherosclerosis with history of stroke, diabetes, hypertension, dyslipidemia and tobacco use and dependence. Leonardo shannon had a recent and extensive hospitalization x 2 complicated by possible stroke status post TNK, pneumonia, sepsis, pressure ulcers to the heel and sacral area, uncontrolled diabetes. Cardiology was involved regarding echodensity of the aortic valve, etiology was unclear. A repeat limited ech ocardiogram revealed no suspicious echodensity. There was no plan for PATRICIA. The patient was discharged to subacute rehab. She now presents from the rehab facility stating that she felt like she had an elephant sitting on her chest yesterday. She told the staff that she felt like she was going to . She states she has been eating okay. She has had bowel movements okay. She apparently presented to the ER with complaints of weakness. ER also documented the patient has not been eating well. No abdominal pain, nausea or vomiting. -EKG: Sinus rhythm with no acute ST changes. -Chest x-ray: COPD. No acute process. -Laboratory studies: Troponin negative x 3. WBC 9.4, hemoglobin 8.9, creatinine 0.4, potassium 4.2, proBNP 1430. UA positive for UTI. Cepheid viral panel not detected. -Home cardiac medications: Aspirin 81 mg daily, atorvastatin 80 mg daily, Plavix 75 mg daily, fenofibrate 160 mg daily, Imdur 15 mg daily, metoprolol succinate 12.5 mg daily, Nitrostat as needed, spironolactone 12.5 mg daily -Echocardiogram Limited study performed on 09/01/2024 revealed EF of 55%. Aortic sclerosis with mild stenosis and no regurgitation. -Lexiscan Cardiolite from 2019 was nondiagnostic electrocardiogram stress testing response to Lexiscan. Probably normal myocardial perfusion imaging. No evidence of stress-induced ischemia. Normal left ventricular systolic function. Review Of Systems: At the time of my exam: CONSTITUTIONAL: Denies fever or chills. Reports weakness. HEENT: Denies blurred vision, vision changes, or eye pain. Denies hemoptysis CARDIOVASCULAR: Reports chest pain. Denies orthopnea. Denies PND. Denies palpitations RESPIRATORY: Denies shortness of breath. GASTROINTESTINAL: Denies abdominal pain. Denies nausea or vomiting. HEMATOLOGIC: Denies bleeding disorders. GENITOURINARY: Denies any blood in urine. SKIN: Denies puritis. Denies rash. Physical examination: Gen: This is 63-year-old female in no acute distress. VS: reviewed HEENT: Head is atraumatic, normocephalic. Pupils equal, round. Sclerae is anicteric. NECK: Supple. No JVD. LUNGS: Clear to auscultation. No wheezes or rhonchi. No intercostal retractions. HEART: Regular rate and rhythm. No murmur. ABDOMEN: Soft No tenderness. EXTREMITIES: No pedal edema. No calf tenderness. NEUROLOGICAL: Patient is awake, alert and oriented x3. Assessment: Atypical chest pain, acute coronary syndrome ruled out Stable angina Chronic GI complaints, consider GI consult Coronary artery disease with prior triple-vessel stenting Lower extremity PAD status post stenting of the bilateral iliac and bilateral SFA Carotid atherosclerosis History of stroke Diabetes Hypertension Dyslipidemia History of tobacco use and dependence, quit since extensive hospitalization in July Plan: Resume patient's home cardiac medications with the following changes: Decrease atorvastatin to 40 mg Discontinue fenofibrate No need to repeat echocardiogram Further recommendations to follow based upon clinical course Thank you kindly for this consultation. Nurse practitioner note has been reviewed, I agree with documented findings and plan of care. Patient was seen and examined. 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 , unsteady gait., see Cardiology [facility] INPT FOR LT FOOT ULCER-WAS SEEN IN WOUND CARE 03/26/23-HAS DRESSING ON FOOT Last Myocardial Infarction Date:: february 2017 History of Any Multi-Drug Resistant Organisms: None Reported Past Surgical History: Back Surgery, Cholecystectomy, Heart Catheterization With Stent, Orthopedic Surgery Additional Past Surgical History / Comment(s): Right 5th toe amputation, lumbar fusion, spinal cord stimulator in place but not working., left knee arthroscopy, EGD, PATRICIA, 3 cardiac stents, Aortoram, stent to left iliac artery. , stent right leg above the knee, right 4th toe amputation. ANGIOGRAM,m 04/11/23 left toes amputation. Past Anesthesia/Blood Transfusion Reactions: No Reported Reaction Additional Past Anesthesia/Blood Transfusion Reaction / Comment(s): . Date of Last Stent Placement:: 12/14/2021 Past Psychological History: Anxiety Smoking Status: Former smoker Past Alcohol Use History: None Reported Past Drug Use History: None Reported - Past Family History Father Family Medical History: Cancer, Liver Disease Additional Family Medical History / Comment(s): Idiopathic cirrhosis of liver, Liver Cancer. Mother Family Medical History: Coronary Artery Disease (CAD), Myocardial Infarction (MS) Additional Family Medical History / Comment(s): Multiple stents. Mother at the age of 77 or 78 from [place]. Medications and Allergies Home Medications Medication Instructions Recorded Confirmed Type Atorvastatin [Lipitor] 80 mg PO HS 06/26/16 09/11/24 History DULoxetine HCL [Cymbalta] 60 mg PO HS 05/30/24 09/11/24 History Fenofibrate [Lofibra] 160 mg PO DAILY 05/30/24 09/11/24 History Gabapentin [Neurontin] 100 mg PO HS 05/30/24 09/11/24 History INSULIN LISPRO (humaLOG) [humaLOG] See Protocol SQ ACHS@07,11,16,20 05/30/24 09/11/24 History cilostazoL [Pletal] 50 mg PO BID 05/30/24 09/11/24 History Ondansetron Odt [Zofran ODT] 4 mg PO Q8HR PRN #20 tab 08/01/24 09/11/24 Rx Oxybutynin ER [Ditropan XL] 10 mg PO DAILY #30 tab 08/01/24 09/11/24 Rx ALPRAZolam [Xanax] 0.25 mg PO TID PRN #6 tab 09/02/24 09/11/24 Rx Clopidogrel [Plavix] 75 mg PO DAILY tab 09/02/24 09/11/24 Rx Ipratropium-Albuterol Nebulize 3 ml INHALATION RT-TID PRN each 09/02/24 09/11/24 Rx [Duoneb 0.5 mg-3 mg/3 ml Soln] Metoprolol Succinate (ER) [Toprol 12.5 mg PO DAILY tab 09/02/24 09/11/24 Rx XL] Nitroglycerin Sl Tabs [Nitrostat] 0.4 mg SUBLINGUAL Q5M PRN tab 09/02/24 09/11/24 Rx Spironolactone [Aldactone] 12.5 mg PO DAILY tab 09/02/24 09/11/24 Rx Acetaminophen [Tylenol 8 Hour] 650 mg PO Q6H PRN 09/11/24 09/11/24 History Ascorbic Acid [Vitamin C] 500 mg PO DAILY 09/11/24 09/11/24 History Aspirin 81 mg PO DAILY@1400 09/11/24 09/11/24 History Docusate [Colace] 200 mg PO BID 09/11/24 09/11/24 History HYDROcodone/APAP 5-325MG [[place] 1 tab PO Q6H PRN 09/11/24 09/11/24 History 5-325] Isosorbide Mononitrate ER [Imdur] 15 mg PO DAILY 09/11/24 09/11/24 History Naloxone HCl 0.4 mg IM DIRECTED PRN 09/11/24 09/11/24 History Naloxone HCl [Narcan] 4 mg NASAL DIRECTED PRN 09/11/24 09/11/24 History Omeprazole [PriLOSEC] 20 mg PO DAILY 09/11/24 09/11/24 History Sennosides [Senokot] 17.2 mg PO BID 09/11/24 09/11/24 History bisacodyL [Dulcolax] 10 mg RECTAL DAILY PRN 09/11/24 09/11/24 History Allergies Allergy/AdvReac Type Severity Reaction Status Date / Time No Known Allergies Allergy Verified 09/11/24 15:52 Physical Exam Vitals: Vital Signs Temp Pulse Pulse Resp BP BP Pulse Ox 09/12/24 07:00 98.0 F 74 14 106/63 99 09/12/24 01:00 16 09/12/24 00:12 98.9 F 81 16 136/76 100 09/11/24 18:51 98.4 F 73 17 134/60 100 09/11/24 16:30 119/61 09/11/24 16:06 98.6 F 71 19 116/67 100 09/11/24 13:56 70 20 112/67 100 09/11/24 12:45 87/57 09/11/24 12:17 98.5 F 77 18 109/79 97 Intake and Output 09/11/24 09/12/24 09/12/24 22:59 06:59 14:59 Output Total 1000 Balance -1000 Output: Urine 1000 Other: Voiding Method Indwelling Catheter Weight 59.421 kg Results 09/12/24 05:59 09/12/24 05:59 Cardiac Enzymes 09/11/24 09/11/24 09/11/24 Range/Units 13:02 13:02 17:42 AST 21 (14-36) U/L Troponin I <0.012 <0.012 (0.000-0.034) ng/mL 09/11/24 Range/Units 20:34 AST (14-36) U/L Troponin I <0.012 (0.000-0.034) ng/mL Coagulation 09/11/24 Range/Units 13:02 PT 11.3 (10.0-12.5) sec APTT 23.6 (22.0-30.0) sec CBC 09/11/24 Range/Units 13:02 WBC 6.81 (4.50-10.00) 10*3/uL RBC 3.67 L (4.10-5.20) 10*6/uL Hgb 10.4 L (12.0-15.0) g/dL Hct 31.3 L (37.2-46.3) % Plt Count 243 (140-440) 10*3/uL Comprehensive Metabolic Panel 09/11/24 Range/Units 13:02 Sodium 131 L (137-145) mmol/L Potassium 4.7 (3.5-5.1) mmol/L Chloride 92 L (98-107) mmol/L Carbon Dioxide 28 (22-30) mmol/L BUN 16 (7-17) mg/dL Creatinine 0.43 L (0.52-1.04) mg/dL Glucose 237 H (74-99) mg/dL Calcium 9.3 (8.4-10.2) mg/dL AST 21 (14-36) U/L ALT 11 (4-34) U/L Alkaline Phosphatase 68 (38-126) U/L Total Protein 6.5 (6.3-8.2) g/dL Albumin 3.5 (3.5-5.0) g/dL Current Medications Generic Name Dose Route Start Last Admin Trade Name Freq PRN Reason Stop Dose Admin Acetaminophen 650 mg 09/11/24 17:24 Acetaminophen Tab 325 Mg Tab PO Q6HR PRN Mild Pain or Fever > 100.5 Hydrocodone Bitart/Acetaminophen 1 each 09/11/24 17:24 09/12/24 06:17 Hydrocodone/Apap 5-325mg 1 Each Tab PO 1 each Q4HR PRN Administration Moderate Pain (Scale 4 to 6) Albuterol/Ipratropium 3 ml 09/11/24 18:13 Ipratropium-Albuterol 3 Ml Neb INHALATION RT-TID PRN Shortness Of Breath Or Wheezing Alprazolam 0.25 mg 09/11/24 18:13 09/12/24 00:29 Alprazolam 0.25 Mg Tab PO 0.25 mg TID PRN Administration Anxiety Ascorbic Acid 500 mg 09/12/24 09:00 Ascorbic Acid 500 Mg Tab PO DAILY MAGALY Aspirin 81 mg 09/12/24 14:00 Aspirin 81 Mg PO DAILY@1400 MAGALY Atorvastatin Calcium 80 mg 09/11/24 21:00 09/11/24 22:30 Atorvastatin 80 Mg Tab PO 80 mg HS MAGALY Administration Bisacodyl 10 mg 09/11/24 18:13 Bisacodyl 10 Mg Supp RECTAL DAILY PRN Constipation Cilostazol 50 mg 09/11/24 21:00 09/12/24 00:29 Cilostazol 100 Mg Tab PO 50 mg BID MAGALY Administration Clopidogrel Bisulfate 75 mg 09/12/24 09:00 Clopidogrel 75 Mg Tab PO DAILY [facility] Docusate Sodium 200 mg 09/11/24 21:00 09/11/24 22:30 Docusate 100 Mg Cap PO 200 mg BID MAGALY Administration Duloxetine HCl 60 mg 09/11/24 21:00 09/11/24 22:30 Duloxetine Hcl 60 Mg Capsule.Dr PO 60 mg HS MAGALY Administration Fenofibrate 160 mg 09/12/24 09:00 Fenofibrate 160 Mg Tab PO DAILY [facility] Gabapentin 100 mg 09/11/24 21:00 09/11/24 22:30 Gabapentin 100 Mg Cap PO 100 mg HS MAGALY Administration Hydromorphone HCl 0.5 mg 09/11/24 18:15 Hydromorphone 0.5 Mg/0.5 Ml Syringe IVP Q6HR PRN Severe Pain (Scale 7 to 10) Iopamidol 30 ml 09/11/24 18:16 Iopamidol Contrast (Oral Use) Vial PO 09/12/24 18:[address] Scan Isosorbide Mononitrate 15 mg 09/12/24 09:00 Isosorbide Mononitrate Er 15 Mg Tab PO DAILY [facility] Metoprolol Succinate 12.5 mg 09/12/24 09:00 Metoprolol Succinate (Er) 25 Mg Tab.Er.24h PO DAILY [facility] Naloxone HCl 0.2 mg 09/11/24 17:24 Naloxone 0.4 Mg/Ml 1 Ml Vial IV Q2M PRN Opioid Reversal Nitroglycerin 0.4 mg 09/11/24 18:13 Nitroglycerin Sl Tabs 0.4 Mg Tab SUBLINGUAL Q5M PRN Chest Pain Ondansetron HCl 4 mg 09/11/24 17:24 Ondansetron 4 Mg/2 Ml Vial IVP Q8HR PRN Nausea And Vomiting Oxybutynin Chloride 10 mg 09/12/24 09:00 Oxybutynin 10 Mg Tab.Er.24 PO DAILY [facility] Pantoprazole Sodium 40 mg 09/11/24 18:15 09/11/24 22:36 Pantoprazole 40 Mg/10 Ml Vial IVP 40 mg BID MAGALY Administration Senna 17.2 mg 09/11/24 21:00 09/11/24 22:29 Sennosides 8.6 Mg Tab PO 17.2 mg BID MAGALY Administration Spironolactone 12.5 mg 09/12/24 09:00 Spironolactone 25 Mg Tab PO DAILY [facility] Intake and Output 09/11/24 09/12/24 09/12/24 22:59 06:59 14:59 Output Total 1000 Balance -1000 Output: Urine 1000 Other: Voiding Method Indwelling Catheter Weight 59.421 kg 09/11/24 13:02 09/11/24 13:02
[2024-09-12 12:30] LABS: Glucose,Whole Blood 204 mg/dL (70-110)
[2024-09-12] MEDS: ASPIRIN 81 MG PO SCH (13:38)
[2024-09-12 14:46] VITALS: BMI 19.9
[2024-09-12 17:28] LABS: Glucose,Whole Blood 164 mg/dL (70-110)
[2024-09-12] MEDS: INSULIN LISPRO (HumaLOG) 100 UNIT/ML 10 mL VL SQ SCH (17:41)
[2024-09-12] MEDS: NITROGLYCERIN SL TABS 0.4 MG TAB SUBLINGUAL PRN (18:02)
[2024-09-12 20:26] LABS: Glucose,Whole Blood 155 mg/dL (70-110)
[2024-09-12] MEDS: ATORVASTATIN 40 MG TAB PO SCH (20:38)
[2024-09-12] MEDS: ISOSORBIDE MONONITRATE ER 15 MG TAB PO STA (20:39)
[2024-09-12] MEDS: DICYCLOMINE 10 MG CAP PO PRN (20:39)
--- NOTE | 2024-09-13 01:26 | PN ---
PROGRESS NOTE DATE OF SERVICE: 09/12/2024 SUBJECTIVE: This is a 63-year-old woman who was admitted with the weakness and chest pain and has moderate to large volume diffuse colonic stool burden, suggestive of constipation, and nonspecific gastric distention and mild right-sided hydronephrosis. PAST MEDICAL HISTORY: Reviewed. REVIEW OF SYSTEMS: A 14-point review of systems negative except as mentioned earlier. CURRENT MEDICATIONS: Reviewed. PHYSICAL EXAMINATION: VITAL SIGNS: Pulse is 71, blood pressure 114/60, respirations 15. HEENT: Conjunctivae normal. NECK: No jugular venous distention. CARDIOVASCULAR: S1, S2. ABDOMEN: Soft. Mild diffuse discomfort and mild distention. NERVOUS SYSTEM: Nonfocal. LABS: Reviewed. CT scan reviewed personally. ASSESSMENT: 1. Chest pain, possible unstable angina. 2. Abdominal distention, possible constipation, rule out ileus. 3. Possible UTI. 4. Recent pneumonia, UTI, and sepsis. 5. History of CVA and TIA. 6. Diabetes mellitus, type 2. 7. History of CAD stent. 8. History of anxiety. 9. Multiple complex medical issues. 10.Full code. RECOMMENDATIONS: Continue current management and treatment. Cardiology has seen the patient and recommended to resume the home medications, and I would also recommend surgical evaluation because of the multiple complex medical issues involved. Wound care has been consulted. Guarded prognosis because of multiple complex medical conditions. MMODL / IJN: [id number] /
[2024-09-13] MEDS: traMADol 50 MG TAB PO PRN (02:40)
[2024-09-13 05:46] LABS: Glucose,Whole Blood 191 mg/dL (70-110)
[2024-09-13 10:07] LABS: Basophils # (A) 0.03 X 10*3/uL (0.00-0.10); Basophils % (A) 0.3 %; Eosinophils # (A) 0.08 X 10*3/uL (0.04-0.35); Eosinophils % (A) 0.8 %; HCT 28.7 % (37.2-46.3); HGB 9.0 g/dL (12.0-15.0); Immature Grans, Automated 0.40 %; Lymphocytes # (A) 1.48 X 10*3/uL (0.90-5.00); Lymphocytes % (A) 13.9 %; MCH 27.4 pg (27.0-32.0); MCHC 31.4 g/dL (32.0-37.0); MCV 87.2 FL (80.0-97.0); Monocytes # (A) 0.72 X 10*3/uL (0.20-1.00); Monocytes % (A) 6.8 %; NRBC Per 100 WBC 0 X 10*3/uL (0.00-0.01); Neutrophils # (A) 8.28 X 10*3/uL (1.80-7.70); Neutrophils % (A) 77.8 %; Platelet Count 298 X 10*3/uL (140-440); RBC 3.29 X 10*6/uL (4.10-5.20); RDW 16.3 % (11.5-14.5); WBC 10.63 X 10*3/uL (4.50-10.00)
[2024-09-13 10:12] LABS: Anion Gap 13.40 mmol/L (4.00-12.00); BUN/Creat Ratio 23.50 Ratio (12.00-20.00); Blood Urea Nitrogen 9.4 mg/dL (9.0-27.0); Calcium 9.0 mg/dL (8.7-10.3); Carbon Dioxide 24.6 mmol/L (21.6-31.8); Chloride 99 mmol/L (96-109); Glucose 179 mg/dL (70-110); Potassium 4.2 mmol/L (3.5-5.5); Sodium 137 mmol/L (135-145)
--- NOTE | 2024-09-13 11:45 | P.GSCN ---
History of Present Illness Consult date: 09/13/24 Reason for Consult: Constipation History of present illness: Is a 63-year-old female whose had issues with ileus and constipation. Patient states that she has been straining for the last several hours. She has had only a several small hard pellets of bowel movement. 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 , unsteady gait., see Cardiology [facility] INPT FOR LT FOOT ULCER-WAS SEEN IN WOUND CARE 03/26/23-HAS DRESSING ON FOOT Last Myocardial Infarction Date:: february 2017 History of Any Multi-Drug Resistant Organisms: None Reported Past Surgical History: Back Surgery, Cholecystectomy, Heart Catheterization With Stent, Orthopedic Surgery Additional Past Surgical History / Comment(s): Right 5th toe amputation, lumbar fusion, spinal cord stimulator in place but not working., left knee arthroscopy, EGD, PATRICIA, 3 cardiac stents, Aortoram, stent to left iliac artery. , stent right leg above the knee, right 4th toe amputation. ANGIOGRAM,m 04/11/23 left toes amputation. Past Anesthesia/Blood Transfusion Reactions: No Reported Reaction Additional Past Anesthesia/Blood Transfusion Reaction / Comm: . Date of Last Stent Placement:: 12/14/2021 Past Psychological History: Anxiety Smoking Status: Former smoker Past Alcohol Use History: None Reported Past Drug Use History: None Reported - Past Family History Father Family Medical History: Cancer, Liver Disease Additional Family Medical History / Comment(s): Idiopathic cirrhosis of liver, L iver Cancer. Mother Family Medical History: Coronary Artery Disease (CAD), Myocardial Infarction ([place]) Additional Family Medical History / Comment(s): Multiple stents. Mother at the age of 77 or 78 from [place]. Medications and Allergies Home Medications Medication Instructions Recorded Confirmed Type Atorvastatin [Lipitor] 80 mg PO HS 06/26/16 09/11/24 History DULoxetine HCL [Cymbalta] 60 mg PO HS 05/30/24 09/11/24 History Fenofibrate [Lofibra] 160 mg PO DAILY 05/30/24 09/11/24 History Gabapentin [Neurontin] 100 mg PO HS 05/30/24 09/11/24 History INSULIN LISPRO (humaLOG) [humaLOG] See Protocol SQ ACHS@07,11,16,20 05/30/24 09/11/24 History cilostazoL [Pletal] 50 mg PO BID 05/30/24 09/11/24 History Ondansetron Odt [Zofran ODT] 4 mg PO Q8HR PRN #20 tab 08/01/24 09/11/24 Rx Oxybutynin ER [Ditropan XL] 10 mg PO DAILY #30 tab 08/01/24 09/11/24 Rx ALPRAZolam [Xanax] 0.25 mg PO TID PRN #6 tab 09/02/24 09/11/24 Rx Clopidogrel [Plavix] 75 mg PO DAILY tab 09/02/24 09/11/24 Rx Ipratropium-Albuterol Nebulize 3 ml INHALATION RT-TID PRN each 09/02/24 09/11/24 Rx [Duoneb 0.5 mg-3 mg/3 ml Soln] Metoprolol Succinate (ER) [Toprol 12.5 mg PO DAILY tab 09/02/24 09/11/24 Rx XL] Nitroglycerin Sl Tabs [Nitrostat] 0.4 mg SUBLINGUAL Q5M PRN tab 09/02/24 Rx Spironolactone [Aldactone] 12.5 mg PO DAILY tab 09/02/24 09/11/24 Rx Acetaminophen [Tylenol 8 Hour] 650 mg PO Q6H PRN 09/11/24 09/11/24 History Ascorbic Acid [Vitamin C] 500 mg PO DAILY 09/11/24 09/11/24 History Aspirin 81 mg PO DAILY@1400 09/11/24 09/11/24 History Docusate [Colace] 200 mg PO BID 09/11/24 09/11/24 History HYDROcodone/APAP 5-325MG [[place] 1 tab PO Q6H PRN 09/11/24 09/11/24 History 5-325] Isosorbide Mononitrate ER [Imdur] 15 mg PO DAILY 09/11/24 09/11/24 History Naloxone HCl 0.4 mg IM DIRECTED PRN 09/11/24 09/11/24 History Naloxone HCl [Narcan] 4 mg NASAL DIRECTED PRN 09/11/24 09/11/24 History Omeprazole [PriLOSEC] 20 mg PO DAILY 09/11/24 09/11/24 History Sennosides [Senokot] 17.2 mg PO BID 09/11/24 09/11/24 History bisacodyL [Dulcolax] 10 mg RECTAL DAILY PRN 09/11/24 09/11/24 History Allergies Allergy/AdvReac Type Severity Reaction Status Date / Time No Known Allergies Allergy Verified 09/11/24 15:52 Surgical - Exam Vital Signs Temp Pulse Resp BP Pulse Ox 98.5 F 77 18 109/79 97 09/11/24 12:17 09/11/24 12:17 09/11/24 12:17 09/11/24 12:17 09/11/24 12:17 - General well developed, no distress - Eyes PERRL - ENT normal pinna - Neck no masses - Respiratory normal expansion - Cardiovascular Rhythm: regular - Abdomen Abdomen: soft, non tender Results - Labs 09/13/24 06:07 09/13/24 06:07 Abnormal Lab Results - Last 24 Hours (Table) 09/12/24 09/12/24 09/12/24 Range/Units 12:27 17:24 20:25 WBC (4.50-10.00) X 10*3/uL RBC (4.10-5.20) X 10*6/uL Hgb (12.0-15.0) g/dL Hct (37.2-46.3) % MCHC (32.0-37.0) g/dL RDW (11.5-14.5) % Neutrophils # (1.80-7.70) X 10*3/uL Anion Gap (4.00-12.00) mmol/L Creatinine (0.6-1.5) mg/dL BUN/Creatinine Ratio (12.00-20.00) Ratio Glucose (70-110) mg/dL POC Glucose (mg/dL) 204 H 164 H 155 H (70-110) mg/dL 09/13/24 09/13/24 09/13/24 Range/Units 05:44 06:07 06:07 WBC 10.63 H (4.50-10.00) X 10*3/uL RBC 3.29 L (4.10-5.20) X 10*6/uL Hgb 9.0 L (12.0-15.0) g/dL Hct 28.7 L (37.2-46.3) % MCHC 31.4 L (32.0-37.0) g/dL RDW 16.3 H (11.5-14.5) % Neutrophils # 8.28 H (1.80-7.70) X 10*3/uL Anion Gap 13.40 H (4.00-12.00) mmol/L Creatinine 0.4 L (0.6-1.5) mg/dL BUN/Creatinine Ratio 23.50 H (12.00-20.00) Ratio Glucose 179 H (70-110) mg/dL POC Glucose (mg/dL) 191 H (70-110) mg/dL Microbiology - Last 24 Hours (Table) 09/11/24 14:10 Urine Culture - Final Urine,Voided 09/11/24 13:02 Blood Culture - Preliminary Blood Diabetes panel 09/13/24 Range/Units 06:07 Sodium 137 (135-145) mmol/L Potassium 4.2 (3.5-5.5) mmol/L Chloride 99 (96-109) mmol/L Carbon Dioxide 24.6 (21.6-31.8) mmol/L BUN 9.4 (9.0-27.0) mg/dL Creatinine 0.4 L (0.6-1.5) mg/dL Glucose 179 H (70-110) mg/dL Calcium 9.0 (8.7-10.3) mg/dL Calcium panel 09/13/24 Range/Units 06:07 Calcium 9.0 (8.7-10.3) mg/dL Pituitary panel 09/13/24 Range/Units 06:07 Sodium 137 (135-145) mmol/L Potassium 4.2 (3.5-5.5) mmol/L Chloride 99 (96-109) mmol/L Carbon Dioxide 24.6 (21.6-31.8) mmol/L BUN 9.4 (9.0-27.0) mg/dL Creatinine 0.4 L (0.6-1.5) mg/dL Glucose 179 H (70-110) mg/dL Calcium 9.0 (8.7-10.3) mg/dL Adrenal panel 09/13/24 Range/Units 06:07 Sodium 137 (135-145) mmol/L Potassium 4.2 (3.5-5.5) mmol/L Chloride 99 (96-109) mmol/L Carbon Dioxide 24.6 (21.6-31.8) mmol/L BUN 9.4 (9.0-27.0) mg/dL Creatinine 0.4 L (0.6-1.5) mg/dL Glucose 179 H (70-110) mg/dL Calcium 9.0 (8.7-10.3) mg/dL Assessment and Plan Assessment: Constipation. Patient will be given some soapsuds enemas today.
[2024-09-13 12:20] LABS: Glucose,Whole Blood 207 mg/dL (70-110)
--- NOTE | 2024-09-13 15:37 | P.PN ---
Subjective Progress Note Date: 09/13/24 This is 63-year-old female patient of Dr. Lock with past medical history of coronary artery disease with prior triple-vessel stenting as well as lower extremity PAD status post stenting of bilateral iliac and bilateral SFA followed by amputation, ischemic cardiomyopathy, carotid atherosclerosis with history of stroke, diabetes, hypertension, dyslipidemia and tobacco use and dependence. Patient had a recent and extensive hospitalization x 2 complicated by possible stroke status post TNK, pneumonia, sepsis, pressure ulcers to the heel and sacral area, uncontrolled diabetes. Cardiology was involved regarding echodensity of the aortic valve, etiology was unclear. A repeat limited echocardiogram revealed no suspicious echodensity. There was no plan for PATRICIA. The patient was discharged to subacute rehab. She now presents from the rehab facility stating that she felt like she had an elephant sitting on her chest yesterday. She told the staff that she felt like she was going to . She states she has been eating okay. She has had bowel movements okay. She apparently presented to the ER with complaints of weakness. ER also documented the patient has not been eating well. No abdominal pain, nausea or vomiting. -EKG: Sinus rhythm with no acute ST changes. -Chest x-ray: COPD. No acute process. -Laboratory studies: Troponin negative x 3. WBC 9.4, hemoglobin 8.9, creatinine 0.4, potassium 4.2, proBNP 1430. UA positive for UTI. Cepheid viral panel not detected. -Home cardiac medications: Aspirin 81 mg daily, atorvastatin 80 mg daily, Plavix 75 mg daily, fenofibrate 160 mg daily, Imdur 15 mg daily, metoprolol succinate 12.5 mg daily, Nitrostat as needed, spironolactone 12.5 mg daily -Echocardiogram Limited study performed on 09/01/2024 revealed EF of 55%. Aortic sclerosis with mild stenosis and no regurgitation. -Lexiscan Cardiolite from 2019 was nondiagnostic electrocardiogram stress testing response to Lexiscan. Probably normal myocardial perfusion imaging. No evidence of stress-induced ischemia. Normal left ventricular systolic function. Progress note 08/15/2024 Overnight he was complaining of chest heaviness. For this we gave her Bentyl and her pain got better. It appears her chest heaviness and upper abdominal heaviness is because of constipation and recent abdominal pathology she had. EKG is unchanged from prior examination On today's evaluation she denies any chest pain chest pressure. Resting comfortably in the bed. BP 107/68, heart rate 72 bpm. Physical examination: Gen: This is 63-year-old female in no acute distress. VS: reviewed HEENT: Head is atraumatic, normocephalic. Pupils equal, round. Sclerae is anicteric. NECK: Supple. No JVD. LUNGS: Clear to auscultation. No wheezes or rhonchi. No intercostal retractions. HEART: Regular rate and rhythm. No murmur. ABDOMEN: Soft No tenderness. EXTREMITIES: No pedal edema. No calf tenderness. NEUROLOGICAL: Patient is awake, alert and oriented x3. Assessment: Atypical chest pain, acute coronary syndrome ruled out Stable angina Chronic GI complaints, consider GI consult Coronary artery disease with prior triple-vessel stenting Lower extremity PAD status post stenting of the bilateral iliac and bilateral SFA Carotid atherosclerosis History of stroke Diabetes Hypertension Dyslipidemia History of tobacco use and dependence, quit since extensive hospitalization in July Plan: Resume patient's home cardiac medications with the following changes: Decrease atorvastatin to 40 mg Discontinue fenofibrate No need to repeat echocardiogram Further recommendations to follow based upon clinical course Objective - Vital Signs Vital signs: Vital Signs Temp 97.8 F 09/13/24 15:00 Pulse 72 09/13/24 15:00 Resp 16 09/13/24 15:00 BP 107/68 09/13/24 15:00 Pulse Ox 100 09/13/24 15:00 FiO2 Intake & Output 09/12/24 09/13/24 09/13/24 18:59 06:59 18:59 Intake Total 240 180 440 Output Total 1000 1080 Balance -760 -900 440 Weight 59.421 kg Intake: Oral 240 180 440 Output: Urine 1000 1080 Other: Voiding Method Indwelling Catheter Indwelling Catheter Indwelling Catheter # Bowel Movements 4 - Labs CBC & Chem 7: 09/13/24 06:07 09/13/24 06:07 Labs: Abnormal Lab Results - Last 24 Hours (Table) 09/12/24 09/12/24 09/13/24 Range/Units 17:24 20:25 05:44 WBC (4.50-10.00) X 10*3/uL RBC (4.10-5.20) X 10*6/uL Hgb (12.0-15.0) g/dL Hct (37.2-46.3) % MCHC (32.0-37.0) g/dL RDW (11.5-14.5) % Neutrophils # (1.80-7.70) X 10*3/uL Anion Gap (4.00-12.00) mmol/L Creatinine (0.6-1.5) mg/dL BUN/Creatinine Ratio (12.00-20.00) Ratio Glucose (70-110) mg/dL POC Glucose (mg/dL) 164 H 155 H 191 H (70-110) mg/dL 09/13/24 09/13/24 09/13/24 Range/Units 06:07 06:07 12:19 WBC 10.63 H (4.50-10.00) X 10*3/uL RBC 3.29 L (4.10-5.20) X 10*6/uL Hgb 9.0 L (12.0-15.0) g/dL Hct 28.7 L (37.2-46.3) % MCHC 31.4 L (32.0-37.0) g/dL RDW 16.3 H (11.5-14.5) % Neutrophils # 8.28 H (1.80-7.70) X 10*3/uL Anion Gap 13.40 H (4.00-12.00) mmol/L Creatinine 0.4 L (0.6-1.5) mg/dL BUN/Creatinine Ratio 23.50 H (12.00-20.00) Ratio Glucose 179 H (70-110) mg/dL POC Glucose (mg/dL) 207 H (70-110) mg/dL Microbiology - Last 24 Hours (Table) 09/11/24 14:10 Urine Culture - Final Urine,Voided 09/11/24 13:02 Blood Culture - Preliminary Blood
[2024-09-13] MEDS: ALPRAZolam 0.5 MG TAB PO PRN (16:04)
[2024-09-13 17:19] LABS: Glucose,Whole Blood 158 mg/dL (70-110)
[2024-09-13 19:40] LABS: Glucose,Whole Blood 147 mg/dL (70-110)
--- NOTE | 2024-09-14 02:02 | PN ---
PROGRESS NOTE DATE OF SERVICE: 09/13/2024 HISTORY: This is a 63-year-old woman, who was admitted with chest pain, also had multiple other medical problems including abdomen distention also. The patient had some constipation also. Multiple consultants are following the patient closely. Surgery has recommended soap suds enema. EXAM: VITAL SIGNS: Pulse is 72, blood pressure 106/60, and respirations 16. CHEST: Few scattered rhonchi. ABDOMEN: Soft, mild diffuse discomfort. LEGS: Showed no edema. NEUROLOGIC: No focal deficits. LABORATORY DATA: Reviewed. ASSESSMENT: 1. Chest pain, possible unstable angina. 2. Abdominal distention, possible constipation, rule out ileus. 3. Possible urinary tract infection. 4. History of recent pneumonia, urinary tract infection, sepsis. 5. Cerebrovascular accident, transient ischemic attack. 6. Diabetes mellitus, type 2. 7. History of coronary artery disease. 8. History of anxiety. 9. Multiple complex medical issues. 10.Full code. RECOMMENDATIONS: Continue current medications, symptomatic treatment. Cultures are negative so far. I would recommend repeat labs. Continue with symptomatic treatment. Prognosis guarded. Further recommendations to follow. MMODL / IJN: [id number] /
[2024-09-14 05:49] LABS: Glucose,Whole Blood 227 mg/dL (70-110)
[2024-09-14 09:46] LABS: Basophils # (A) 0.04 X 10*3/uL (0.00-0.10); Basophils % (A) 0.3 %; Eosinophils # (A) 0.11 X 10*3/uL (0.04-0.35); Eosinophils % (A) 0.8 %; HCT 29.0 % (37.2-46.3); HGB 9.4 g/dL (12.0-15.0); Immature Grans, Automated 0.40 %; Lymphocytes # (A) 1.44 X 10*3/uL (0.90-5.00); Lymphocytes % (A) 10.8 %; MCH 27.6 pg (27.0-32.0); MCHC 32.4 g/dL (32.0-37.0); MCV 85.0 FL (80.0-97.0); Monocytes # (A) 0.94 X 10*3/uL (0.20-1.00); Monocytes % (A) 7.0 %; NRBC Per 100 WBC 0 X 10*3/uL (0.00-0.01); Neutrophils # (A) 10.77 X 10*3/uL (1.80-7.70); Neutrophils % (A) 80.7 %; Platelet Count 347 X 10*3/uL (140-440); RBC 3.41 X 10*6/uL (4.10-5.20); RDW 15.9 % (11.5-14.5); WBC 13.36 X 10*3/uL (4.50-10.00)
[2024-09-14 09:55] LABS: Anion Gap 13.50 mmol/L (4.00-12.00); BUN/Creat Ratio 29.50 Ratio (12.00-20.00); Blood Urea Nitrogen 11.8 mg/dL (9.0-27.0); Calcium 9.1 mg/dL (8.7-10.3); Carbon Dioxide 23.5 mmol/L (21.6-31.8); Chloride 96 mmol/L (96-109); Glucose 208 mg/dL (70-110); Potassium 3.8 mmol/L (3.5-5.5); Sodium 133 mmol/L (135-145)
[2024-09-14 12:04] LABS: Glucose,Whole Blood 240 mg/dL (70-110)
--- NOTE | 2024-09-14 13:11 | P.PN ---
Subjective Progress Note Date: 09/14/24 Patient had multiple bowel movements after her soapsuds enema yesterday. She states she feels better. On exam vital signs were stable. Abdomen soft. Resolving constipation. Patient should be considered for outpatient endoscopy. Objective - Vital Signs Vital signs: Vital Signs Temp 98.1 F 09/14/24 10:54 Pulse 79 09/14/24 10:54 Resp 16 09/14/24 07:00 BP 110/67 09/14/24 10:54 Pulse Ox 100 09/14/24 10:54 FiO2 Intake & Output 09/13/24 09/14/24 09/14/24 18:59 06:59 18:59 Intake Total 440 180 Output Total 640 800 Balance -200 -620 Intake: Oral 440 180 Output: Urine 640 800 Other: Voiding Method Indwelling Catheter Indwelling Catheter Indwelling Catheter # Bowel Movements 4 1 1 - Labs CBC & Chem 7: 09/14/24 05:14 09/14/24 05:14 Labs: Abnormal Lab Results - Last 24 Hours (Table) 09/13/24 09/13/24 09/14/24 Range/Units 17:18 19:39 05:14 WBC 13.36 H (4.50-10.00) X 10*3/uL RBC 3.41 L (4.10-5.20) X 10*6/uL Hgb 9.4 L (12.0-15.0) g/dL Hct 29.0 L (37.2-46.3) % RDW 15.9 H (11.5-14.5) % Immature Gran # 0.06 H (0.00-0.04) X 10*3/uL Neutrophils # 10.77 H (1.80-7.70) X 10*3/uL Sodium (135-145) mmol/L Anion Gap (4.00-12.00) mmol/L Creatinine (0.6-1.5) mg/dL BUN/Creatinine Ratio (12.00-20.00) Ratio Glucose (70-110) mg/dL POC Glucose (mg/dL) 158 H 147 H (70-110) mg/dL 09/14/24 09/14/24 09/14/24 Range/Units 05:14 05:48 12:03 WBC (4.50-10.00) X 10*3/uL RBC (4.10-5.20) X 10*6/uL Hgb (12.0-15.0) g/dL Hct (37.2-46.3) % RDW (11.5-14.5) % Immature Gran # (0.00-0.04) X 10*3/uL Neutrophils # (1.80-7.70) X 10*3/uL Sodium 133 L (135-145) mmol/L Anion Gap 13.50 H (4.00-12.00) mmol/L Creatinine 0.4 L (0.6-1.5) mg/dL BUN/Creatinine Ratio 29.50 H (12.00-20.00) Ratio Glucose 208 H (70-110) mg/dL POC Glucose (mg/dL) 227 H 240 H (70-110) mg/dL Microbiology - Last 24 Hours (Table) 09/11/24 13:02 Blood Culture - Preliminary Blood
[2024-09-14 17:33] LABS: Glucose,Whole Blood 190 mg/dL (70-110)
[2024-09-14 20:10] LABS: Glucose,Whole Blood 191 mg/dL (70-110)
--- NOTE | 2024-09-14 23:48 | P.PN ---
Subjective Progress Note Date: 09/14/24 This is 63-year-old female patient of Dr. Lock with past medical history of coronary artery disease with prior triple-vessel stenting as well as lower extremity PAD status post stenting of bilateral iliac and bilateral SFA followed by amputation, ischemic cardiomyopathy, carotid atherosclerosis with history of stroke, diabetes, hypertension, dyslipidemia and tobacco use and dependence. Patient had a recent and extensive hospitalization x 2 complicated by possible stroke status post TNK, pneumonia, sepsis, pressure ulcers to the heel and sacral area, uncontrolled diabetes. Cardiology was involved regarding echodensity of the aortic valve, etiology was unclear. A repeat limited echocardiogram revealed no suspicious echodensity. There was no plan for PATRICIA. The patient was discharged to subacute rehab. She now presents from the rehab facility stating that she felt like she had an elephant sitting on her chest yesterday. She told the staff that she felt like she was going to . She states she has been eating okay. She has had bowel movements okay. She apparently presented to the ER with complaints of weakness. ER also documented the patient has not been eating well. No abdominal pain, nausea or vomiting. -EKG: Sinus rhythm with no acute ST changes. -Chest x-ray: COPD. No acute process. -Laboratory studies: Troponin negative x 3. WBC 9.4, hemoglobin 8.9, creatinine 0.4, potassium 4.2, proBNP 1430. UA positive for UTI. Cepheid viral panel not detected. -Home cardiac medications: Aspirin 81 mg daily, atorvastatin 80 mg daily, Plavix 75 mg daily, fenofibrate 160 mg daily, Imdur 15 mg daily, metoprolol succinate 12.5 mg daily, Nitrostat as needed, spironolactone 12.5 mg daily -Echocardiogram Limited study performed on 09/01/2024 revealed EF of 55%. Aortic sclerosis with mild stenosis and no regurgitation. -Lexiscan Cardiolite from 2019 was nondiagnostic electrocardiogram stress testing response to Lexiscan. Probably normal myocardial perfusion imaging. No evidence of stress-induced ischemia. Normal left ventricular systolic function. Progress note 09/13/2024 Overnight he was complaining of chest heaviness. For this we gave her Bentyl and her pain got better. It appears her chest heaviness and upper abdominal heaviness is because of constipation and recent abdominal pathology she had. EKG is unchanged from prior examination On today's evaluation she denies any chest pain chest pressure. Resting comfortably in the bed. BP 107/68, heart rate 72 bpm. 09/14/2024 Seen and examined bedside this a.m. No further chest pain chest pressure shortness of breath. Physical examination: Gen: This is 63-year-old female in no acute distress. VS: reviewed HEENT: Head is atraumatic, normocephalic. Pupils equal, round. Sclerae is anicteric. NECK: Supple. No JVD. LUNGS: Clear to auscultation. No wheezes or rhonchi. No intercostal retractions. HEART: Regular rate and rhythm. No murmur. ABDOMEN: Soft No tenderness. EXTREMITIES: No pedal edema. No calf tenderness. NEUROLOGICAL: Patient is awake, alert and oriented x3. Assessment: Atypical chest pain, acute coronary syndrome ruled out Stable angina Chronic GI complaints, consider GI consult Coronary artery disease with prior triple-vessel stenting Lower extremity PAD status post stenting of the bilateral iliac and bilateral SFA Carotid atherosclerosis History of stroke Diabetes Hypertension Dyslipidemia History of tobacco use and dependence, quit since extensive hospitalization in July Plan: Resume patient's home cardiac medications with the following changes: Decrease atorvastatin to 40 mg Discontinue fenofibrate No need to repeat echocardiogram Further recommendations to follow based upon clinical course Objective - Vital Signs Vital signs: Vital Signs Temp 98.1 F 09/14/24 19:05 Pulse 69 09/14/24 19:05 Resp 15 09/14/24 19:05 BP 111/73 09/14/24 19:05 Pulse Ox 99 09/14/24 19:05 FiO2 Intake & Output 09/14/24 09/14/24 09/15/24 06:59 18:59 06:59 Intake Total 180 Output Total 800 400 Balance -620 -400 Intake: Oral 180 Output: Urine 800 400 Other: Voiding Method Indwelling Catheter Indwelling Catheter Indwelling Catheter # Bowel Movements 1 1 - Labs CBC & Chem 7: 09/14/24 05:14 09/14/24 05:14 Labs: Abnormal Lab Results - Last 24 Hours (Table) 09/14/24 09/14/24 09/14/24 Range/Units 05:14 05:14 05:48 WBC 13.36 H (4.50-10.00) X 10*3/uL RBC 3.41 L (4.10-5.20) X 10*6/uL Hgb 9.4 L (12.0-15.0) g/dL Hct 29.0 L (37.2-46.3) % RDW 15.9 H (11.5-14.5) % Immature Gran # 0.06 H (0.00-0.04) X 10*3/uL Neutrophils # 10.77 H (1.80-7.70) X 10*3/uL Sodium 133 L (135-145) mmol/L Anion Gap 13.50 H (4.00-12.00) mmol/L Creatinine 0.4 L (0.6-1.5) mg/dL BUN/Creatinine Ratio 29.50 H (12.00-20.00) Ratio Glucose 208 H (70-110) mg/dL POC Glucose (mg/dL) 227 H (70-110) mg/dL 09/14/24 09/14/24 09/14/24 Range/Units 12:03 17:32 20:09 WBC (4.50-10.00) X 10*3/uL RBC (4.10-5.20) X 10*6/uL Hgb (12.0-15.0) g/dL Hct (37.2-46.3) % RDW (11.5-14.5) % Immature Gran # (0.00-0.04) X 10*3/uL Neutrophils # (1.80-7.70) X 10*3/uL Sodium (135-145) mmol/L Anion Gap (4.00-12.00) mmol/L Creatinine (0.6-1.5) mg/dL BUN/Creatinine Ratio (12.00-20.00) Ratio Glucose (70-110) mg/dL POC Glucose (mg/dL) 240 H 190 H 191 H (70-110) mg/dL Microbiology - Last 24 Hours (Table) 09/11/24 13:02 Blood Culture - Preliminary Blood
--- NOTE | 2024-09-15 04:41 | PN ---
PROGRESS NOTE DATE OF SERVICE: 09/14/2024 SUBJECTIVE: This is a 63-year-old woman who was admitted with chest pain, also had some abdominal distention. The patient has some constipation, which is improving. The patient is severely anxious. PHYSICAL EXAMINATION: VITAL SIGNS: Pulse 75, blood pressure 124/70, respirations 16. CHEST: Clear to auscultation. ABDOMEN: Soft. Mild diffuse distention. LABORATORY DATA: Reviewed. ASSESSMENT: 1. Chest pain, possible unstable angina. 2. Abdominal distention, possible constipation, improving. 3. Possible urinary tract infection. 4. History of recent pneumonia, urinary tract infection, sepsis. 5. History of cerebrovascular accident, transient ischemic attack. 6. Diabetes mellitus type 2. 7. History of coronary artery disease. 8. History of anxiety. 9. Multiple complex medical issues. 10.Full code. RECOMMENDATIONS: Recommend to continue current medications, continue symptomatic treatment. Otherwise, cultures are negative so far. Repeat labs. Increase ambulation. Possible DC within the next 24 hours. MMODL / IJN: [id number] /
[2024-09-15 05:50] LABS: Glucose,Whole Blood 222 mg/dL (70-110)
[2024-09-15 08:00] LABS: Basophils # (A) 0.06 X 10*3/uL (0.00-0.10); Basophils % (A) 0.5 %; Eosinophils # (A) 0.15 X 10*3/uL (0.04-0.35); Eosinophils % (A) 1.2 %; HCT 28.0 % (37.2-46.3); HGB 8.9 g/dL (12.0-15.0); Immature Grans, Automated 0.50 %; Lymphocytes # (A) 1.53 X 10*3/uL (0.90-5.00); Lymphocytes % (A) 11.8 %; MCH 27.4 pg (27.0-32.0); MCHC 31.8 g/dL (32.0-37.0); MCV 86.2 FL (80.0-97.0); Monocytes # (A) 0.90 X 10*3/uL (0.20-1.00); Monocytes % (A) 6.9 %; NRBC Per 100 WBC 0 X 10*3/uL (0.00-0.01); Neutrophils # (A) 10.25 X 10*3/uL (1.80-7.70); Neutrophils % (A) 79.1 %; Platelet Count 336 X 10*3/uL (140-440); RBC 3.25 X 10*6/uL (4.10-5.20); RDW 16.1 % (11.5-14.5); WBC 12.95 X 10*3/uL (4.50-10.00)
[2024-09-15 08:03] LABS: Anion Gap 11.40 mmol/L (4.00-12.00); BUN/Creat Ratio 27.50 Ratio (12.00-20.00); Blood Urea Nitrogen 11.0 mg/dL (9.0-27.0); Calcium 9.0 mg/dL (8.7-10.3); Carbon Dioxide 24.6 mmol/L (21.6-31.8); Chloride 93 mmol/L (96-109); Glucose 206 mg/dL (70-110); Potassium 4.0 mmol/L (3.5-5.5); Sodium 129 mmol/L (135-145)
--- NOTE | 2024-09-15 12:03 | P.PN ---
Subjective HISTORY OF PRESENT ILLNESS: This is 63-year-old female patient of Dr. Lock with past medical history of coronary artery disease with prior triple-vessel stenting as well as lower extremity PAD status post stenting of bilateral iliac and bilateral SFA followed by amputation, ischemic cardiomyopathy, carotid atherosclerosis with history of stroke, diabetes, hypertension, dyslipidemia and tobacco use and dependence. Patient had a recent and extensive hospitalization x 2 complicated by possible stroke status post TNK, pneumonia, sepsis, pressure ulcers to the heel and sacral area, uncontrolled diabetes. Cardiology was involved regarding echo density of the aortic valve, etiology was unclear. A repeat limited echocardiogram revealed no suspicious echodensity. There was no plan for PATRICIA. The patient was discharged to subacute rehab. She now presents from the rehab facility stating that she felt like she had an elephant sitting on her chest yesterday. She told the staff that she felt like she was going to . She states she has been eating okay. She has had bowel movements okay. She apparently presented to the ER with complaints of weakness. ER also documented the patient has not been eating well. No abdominal pain, nausea or vomiting. -EKG: Sinus rhythm with no acute ST changes. -Chest x-ray: COPD. No acute process. -Laboratory studies: Troponin negative x 3. WBC 9.4, hemoglobin 8.9, creatinine 0.4, potassium 4.2, proBNP 1430. UA positive for UTI. Cepheid viral panel not detected. -Home cardiac medications: Aspirin 81 mg daily, atorvastatin 80 mg daily, Plavix 75 mg daily, fenofibrate 160 mg daily, Imdur 15 mg daily, metoprolol succinate 12.5 mg daily, Nitrostat as needed, spironolactone 12.5 mg daily -Echocardiogram Limited study performed on 09/01/2024 revealed EF of 55%. Aortic sclerosis with mild stenosis and no regurgitation. -Lexiscan Cardiolite from 2019 was nondiagnostic electrocardiogram stress testing response to Lexiscan. Probably normal myocardial perfusion imaging. No evidence of stress-induced ischemia. Normal left ventricular systolic function. Progress note 09/13/2024 Overnight he was complaining of chest heaviness. For this we gave her Bentyl and her pain got better. It appears her chest heaviness and upper abdominal heaviness is because of constipation and recent abdominal pathology she had. EKG is unchanged from prior examination On today's evaluation she denies any chest pain chest pressure. Resting comfortably in the bed. BP 107/68, heart rate 72 bpm. 09/14/2024 Seen and examined bedside this a.m. No further chest pain chest pressure shortness of breath. 09/15/2024 Patient examined this morning at bedside. Patient currently denies chest pain or pressure. She denies shortness of breath. Patient reports anxiety this morning and states that she feels like she is losing her mind. PHYSICAL EXAM: VITAL SIGNS: Reviewed. GENERAL: Well-developed in no acute distress. NECK: Supple. No JVD or thyromegaly LUNGS: Respirations even and unlabored. Lungs essentially clear to auscultation bilaterally. HEART: Regular rate and rhythm. S1 and S2 heard. EXTREMITIES: Normal range of motion. No clubbing or cyanosis. Peripheral pulses intact. No lower extremity edema ASSESSMENT: Atypical chest pain, acute coronary syndrome ruled out Stable angina Chronic GI complaints, consider GI consult Coronary artery disease with prior triple-vessel stenting Lower extremity PAD status post stenting of the bilateral iliac and bilateral SFA Carotid atherosclerosis History of stroke Diabetes Hypertension Dyslipidemia History of tobacco use and dependence, quit since extensive hospitalization in July PLAN: Continue aspirin, Lipitor, Plavix, Imdur, metoprolol, Aldactone Patient is stable from a cardiac standpoint with no further inpatient recommendations We will sign off. Please reconsult if needed. Nurse practitioner note has been reviewed by physician. Signing provider agrees with the documented findings, assessment, and plan of care documented by ENERGY AND SUSTAINABILITY MANAGER as a scribe. Objective - Vital Signs Vital signs: Vital Signs Temp 98.1 F 09/15/24 07:30 Pulse 88 09/15/24 07:30 Resp 16 09/15/24 07:30 BP 115/62 09/15/24 07:30 Pulse Ox 96 09/15/24 09:10 FiO2 Intake & Output 09/14/24 09/15/24 09/15/24 18:59 06:59 18:59 Intake Total 474 Output Total 400 550 300 Balance -400 -550 174 Intake: Oral 474 Output: Urine 400 550 300 Other: Voiding Method Indwelling Catheter Indwelling Catheter Indwelling Catheter # Bowel Movements 1 1 - Labs CBC & Chem 7: 09/15/24 04:33 09/15/24 04:33 Labs: Abnormal Lab Results - Last 24 Hours (Table) 0709/14/24 09/14/24 Range/Units 12:03 17:32 20:09 WBC (4.50-10.00) X 10*3/uL RBC (4.10-5.20) X 10*6/uL Hgb (12.0-15.0) g/dL Hct (37.2-46.3) % MCHC (32.0-37.0) g/dL RDW (11.5-14.5) % Immature Gran # (0.00-0.04) X 10*3/uL Neutrophils # (1.80-7.70) X 10*3/uL Sodium (135-145) mmol/L Chloride (96-109) mmol/L Creatinine (0.6-1.5) mg/dL BUN/Creatinine Ratio (12.00-20.00) Ratio Glucose (70-110) mg/dL POC Glucose (mg/dL) 240 H 190 H 191 H (70-110) mg/dL 09/15/24 09/15/24 09/15/24 Range/Units 04:33 04:33 05:49 WBC 12.95 H (4.50-10.00) X 10*3/uL RBC 3.25 L (4.10-5.20) X 10*6/uL Hgb 8.9 L (12.0-15.0) g/dL Hct 28.0 L (37.2-46.3) % MCHC 31.8 L (32.0-37.0) g/dL RDW 16.1 H (11.5-14.5) % Immature Gran # 0.06 H (0.00-0.04) X 10*3/uL Neutrophils # 10.25 H (1.80-7.70) X 10*3/uL Sodium 129 L (135-145) mmol/L Chloride 93 L (96-109) mmol/L Creatinine 0.4 L (0.6-1.5) mg/dL BUN/Creatinine Ratio 27.50 H (12.00-20.00) Ratio Glucose 206 H (70-110) mg/dL POC Glucose (mg/dL) 222 H (70-110) mg/dL Microbiology - Last 24 Hours (Table) 09/11/24 13:02 Blood Culture - Preliminary Blood
--- NOTE | 2024-09-15 12:05 | PN ---
PROGRESS NOTE DATE OF SERVICE: 09/15/2024 INTERVAL HISTORY: This is a 63-year-old woman, who was admitted with chest pain, also had multiple problems: Abdominal distention and generalized weakness also. No chest pain. No palpitations. PHYSICAL EXAMINATION: VITAL SIGNS: Pulse 88, blood pressure 130/56, respirations 18. CHEST: Clear to auscultation. CARDIOVASCULAR: S1, S2. ABDOMEN: Soft. Mild diffuse discomfort. LABORATORY DATA: Reviewed. ASSESSMENT: 1. Chest pain, possible unstable angina. 2. Abdominal distention possible constipation, improving. 3. urinary tract infection, sepsis .. 4. History of cerebrovascular accident, transient ischemic attack. 5. Gait dysfunction. 6. Diabetes mellitus, type 2. 7. History of coronary artery disease. 8. Anxiety. 9. Multiple complex medical issues. 10.Full code. RECOMMENDATIONS: Recommend to continue current management and treatment otherwise. Continue with the current medications. Cultures are negative so far. I will obtain a serum procalcitonin. I would also recommend PT, OT evaluation. Possible prognosis guarded. Further recommendations to follow. MMODL / IJN: [id number] / MTDD
--- NOTE | 2024-09-15 12:11 | P.CONS ---
History of Present Illness - Reason for Consult Consult date: 09/15/24 wound care - History of Present Illness This is a 63-year-old patient being 6 seen on 6 N. for a unstageable pressure ulcer to the right heel An unstageable pressure ulcer to the sacrum and left buttocks. Patient has unstable nonpressure ulcer measuring approximately 4 x 6 x 0.2 to the right heel. The ulceration has an eschar That is firm in place and dry. No dressings are required. Patient has unstageable pressure ulcer to midline sacrum and left buttocks. Midline sacral Grail ulceration measures approximately 6 x 2 x 0.2 cm with eschar and nonviable tissue present no granulation seen no tunneling or undermining noted. The left buttocks ulceration measures approximately 4 x 4 x 0.2 cm with significant amount of slough nonviable tissue eschar and No granulation noted. Patient has history of CVA, diabetes, GERD, hyperlipidemia, hypertension, IA and vascular disorder. Patient had amputations of the 4th and 5th digit of the right foot related to neuropathy. Review Of Systems: Constitutional: No fever, no chills, no night sweats. No weight change. No weakness, fatigue or lethargy. No daytime sleepiness. Integumentary:reports wounds, no lesions. No rash or pruritus. No unusual bruising. No change in hair or nails. Physical exam: General Appearance: Alert, cooperative, no distress, appears stated age. Skin: See HPI all other Skin color, texture, tugor normal, no rashes or lesions. Neurologic: Alert oriented x3 Assessment: 1. Unstageable pressure ulcer right heel 2. Unstageable pressure ulcer sacrum 3. Unstageable pressure ulcer left buttocks 4. Diabetes with skin ulceration 5. Diabetes with foot ulceration 6. Arthrosclerosis of the right lower extremity with ulceration to the right heel Plan: 1. May leave right heel ulceration open to air. Midline sacrum and left buttocks ulceration apply honey gel and bordered foam. Turn patient every 2 hours. Utilize heel protector to bilateral heels. Patient would benefit from advanced wound care and wound care setting. We would be happy to see her upon discharge. Thank you for the consultation any questions please contact the wound care lucian ter DNP note has been reviewed and discussed with Dr. Munoz and the impression and plan of care has been directed as dictated. 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 , unsteady gait., see Cardiology [facility]. INPT FOR LT FOOT ULCER-WAS SEEN IN WOUND CARE 03/26/23-HAS DRESSING ON FOOT Last Myocardial Infarction Date:: february 2017 History of Any Multi-Drug Resistant Organisms: None Reported Past Surgical History: Back Surgery, Cholecystectomy, Heart Catheterization With Stent, Orthopedic Surgery Additional Past Surgical History / Comment(s): Right 5th toe amputation, lumbar fusion, spinal cord stimulator in place but not working., left knee arthroscopy, EGD, PATRICIA, 3 cardiac stents, Aortoram, stent to left iliac artery. , stent right leg above the knee, right 4th toe amputation. ANGIOGRAM,m 04/11/23 left toes amputation. Past Anesthesia/Blood Transfusion Reactions: No Reported Reaction Additional Past Anesthesia/Blood Transfusion Reaction / Comm: . Date of Last Stent Placement:: 12/14/2021 Past Psychological History: Anxiety Smoking Status: Former smoker Past Alcohol Use History: None Reported Past Drug Use History: None Reported - Past Family History Father Family Medical History: Cancer, Liver Disease Additional Family Medical History / Comment(s): Idiopathic cirrhosis of liver, Liver Cancer. Mother Family Medical History: Coronary Artery Disease (CAD), Myocardial Infarction (IA) Additional Family Medical History / Comment(s): Multiple stents. Mother at the age of 77 or 78 from IA. Medications and Allergies Home Medications Medication Instructions Recorded Confirmed Type Atorvastatin [Lipitor] 80 mg PO HS 06/26/16 09/11/24 History DULoxetine HCL [Cymbalta] 60 mg PO HS 05/30/24 09/11/24 History Fenofibrate [Lofibra] 160 mg PO DAILY 05/30/24 09/11/24 History Gabapentin [Neurontin] 100 mg PO HS 05/30/24 09/11/24 History INSULIN LISPRO (humaLOG) [humaLOG] See Protocol SQ ACHS@07,11,16,20 05/30/24 09/11/24 History cilostazoL [Pletal] 50 mg PO BID 05/30/24 09/11/24 History Ondansetron Odt [Zofran ODT] 4 mg PO Q8HR PRN #20 tab 08/01/24 09/11/24 Rx Oxybutynin ER [Ditropan XL] 10 mg PO DAILY #30 tab 08/01/24 09/11/24 Rx ALPRAZolam [Xanax] 0.25 mg PO TID PRN #6 tab 09/02/24 09/11/24 Rx Clopidogrel [Plavix] 75 mg PO DAILY tab 09/02/24 09/11/24 Rx Ipratropium-Albuterol Nebulize 3 ml INHALATION RT-TID PRN each 09/02/24 09/11/24 Rx [Duoneb 0.5 mg-3 mg/3 ml Soln] Metoprolol Succinate (ER) [Toprol 12.5 mg PO DAILY tab 09/02/24 09/11/24 Rx XL] Nitroglycerin Sl Tabs [Nitrostat] 0.4 mg SUBLINGUAL Q5M PRN tab 09/02/24 09/11/24 Rx Spironolactone [Aldactone] 12.5 mg PO DAILY tab 09/02/24 09/11/24 Rx Acetaminophen [Tylenol 8 Hour] 650 mg PO Q6H PRN 09/11/24 09/11/24 History Ascorbic Acid [Vitamin C] 500 mg PO DAILY 09/11/24 09/11/24 History Aspirin 81 mg PO DAILY@1400 09/11/24 09/11/24 History Docusate [Colace] 200 mg PO BID 09/11/24 09/11/24 History HYDROcodone/APAP 5-325MG [[place] 1 tab PO Q6H PRN 09/11/24 09/11/24 History 5-325] Isosorbide Mononitrate ER [Imdur] 15 mg PO DAILY 09/11/24 09/11/24 History Naloxone HCl 0.4 mg IM DIRECTED PRN 09/11/24 09/11/24 History Naloxone HCl [Narcan] 4 mg NASAL DIRECTED PRN 09/11/24 09/11/24 History Omeprazole [PriLOSEC] 20 mg PO DAILY 09/11/24 09/11/24 History Sennosides [Senokot] 17.2 mg PO BID 09/11/24 09/11/24 History bisacodyL [Dulcolax] 10 mg RECTAL DAILY PRN 09/11/24 09/11/24 History Allergies Allergy/AdvReac Type Severity Reaction Status Date / Time No Known Allergies Allergy Verified 09/11/24 15:52 Physical Exam Vitals: Vital Signs Temp Pulse Resp BP Pulse Ox 09/15/24 09:10 96 09/15/24 07:30 98.1 F 88 16 115/62 96 09/15/24 01:10 98.5 F 74 16 99/60 95 09/14/24 19:05 98.1 F 69 15 111/73 99 09/14/24 14:42 98 F 75 16 124/79 100 Intake and Output 09/14/24 09/15/24 09/15/24 22:59 06:59 14:59 Intake Total 474 Output Total 100 550 300 Balance -100 -550 174 Intake: Oral 474 Output: Urine 100 550 300 Other: Voiding Method Indwelling Catheter Indwelling Catheter # Bowel Movements 1 Results CBC & Chem 7: 09/15/24 04:33 09/15/24 04:33 Labs: Abnormal Lab Results - Last 24 Hours (Table) 09/14/24 09/14/24 09/14/24 Range/Units 12:03 17:32 20:09 WBC (4.50-10.00) X 10*3/uL RBC (4.10-5.20) X 10*6/uL Hgb (12.0-15.0) g/dL Hct (37.2-46.3) % MCHC (32.0-37.0) g/dL RDW (11.5-14.5) % Immature Gran # (0.00-0.04) X 10*3/uL Neutrophils # (1.80-7.70) X 10*3/uL Sodium (135-145) mmol/L Chloride (96-109) mmol/L Creatinine (0.6-1.5) mg/dL BUN/Creatinine Ratio (12.00-20.00) Ratio Glucose (70-110) mg/dL POC Glucose (mg/dL) 240 H 190 H 191 H (70-110) mg/dL 09/15/24 09/15/2425 Range/Units 04:33 04:33 05:49 WBC 12.95 H (4.50-10.00) X 10*3/uL RBC 3.25 L (4.10-5.20) X 10*6/uL Hgb 8.9 L (12.0-15.0) g/dL Hct 28.0 L (37.2-46.3) % MCHC 31.8 L (32.0-37.0) g/dL RDW 16.1 H (11.5-14.5) % Immature Gran # 0.06 H (0.00-0.04) X 10*3/uL Neutrophils # 10.25 H (1.80-7.70) X 10*3/uL Sodium 129 L (135-145) mmol/L Chloride 93 L (96-109) mmol/L Creatinine 0.4 L (0.6-1.5) mg/dL BUN/Creatinine Ratio 27.50 H (12.00-20.00) Ratio Glucose 206 H (70-110) mg/dL POC Glucose (mg/dL) 222 H (70-110) mg/dL Microbiology - Last 24 Hours (Table) 09/11/24 13:02 Blood Culture - Preliminary Blood Assessment and Plan (1) Unstageable pressure ulcer of left buttock Current Visit: Yes Status: Acute Code(s): L89.320 - PRESSURE ULCER OF LEFT BUTTOCK, UNSTAGEABLE SNOMED Code(s): 22617001574867524 (2) Type 2 diabetes mellitus with foot ulcer Current Visit: Yes Status: Acute Code(s): E11.621 - TYPE 2 DIABETES MELLITUS WITH FOOT ULCER; L97.509 - NON-PRESSURE CHRONIC ULCER OTH PRT UNSP FOOT W UNSP SEVERITY SNOMED Code(s): 3907331367513 (3) Type 2 diabetes mellitus with other skin ulcer Current Visit: Yes Status: Acute Code(s): E11.622 - TYPE 2 DIABETES MELLITUS WITH OTHER SKIN ULCER; L98.499 - NON-PRESSURE CHRONIC ULCER OF SKIN OF SITES W UNSP SEVERITY SNOMED Code(s): 178057341276057 (4) Atherosclerosis of right lower extremity with ulceration of heel Current Visit: Yes Status: Acute Code(s): I70.234 - ATHSCL [place] ART OF RIGHT LEG W ULCER OF HEEL AND MIDFOOT SNOMED Code(s): 52653966 (5) Pressure ulcer, heel, right, unstageable Current Visit: No Status: Acute Code(s): L89.610 - PRESSURE ULCER OF RIGHT HEEL, UNSTAGEABLE SNOMED Code(s): 72207085114137561 (6) Unstageable pressure ulcer of sacral region Current Visit: No Status: Acute Code(s): L89.150 - PRESSURE ULCER OF SACRAL REGION, UNSTAGEABLE SNOMED Code(s): 97489553507619714
[2024-09-15 12:24] LABS: Glucose,Whole Blood 241 mg/dL (70-110)
--- NOTE | 2024-09-15 15:26 | P.PN ---
Subjective Progress Note Date: 09/15/24 SURGICAL PROGRESS NOTE HISTORY OF PRESENT ILLNESS: Surgical service following for constipation. Patient having bowel movements. Tolerating regular diet. PHYSICAL EXAM: VITAL SIGNS: Reviewed. GENERAL: no acute distress. ABDOMEN: Soft. Nondistended. Nontender. NEUROLOGIC: Alert and oriented. Cranial nerves II through XII grossly intact. ASSESSMENT: 1. Resolving constipation PLAN: - Patient should consider outpatient endoscopy - Recommend continue a good bowel regimen Physician On Site Services Specialist note has been reviewed by physician. Signing provider agrees with the documented findings, assessment, and plan of care. Objective - Vital Signs Vital signs: Vital Signs Temp 98.1 F 09/15/24 07:30 Pulse 88 09/15/24 07:30 Resp 16 09/15/24 07:30 BP 115/62 09/15/24 07:30 Pulse Ox 96 09/15/24 09:10 FiO2 Intake & Output 09/14/24 09/15/24 09/15/24 18:59 06:59 18:59 Intake Total 474 Output Total 400 550 300 Balance -400 -550 174 Intake: Oral 474 Output: Urine 400 550 300 Other: Voiding Method Indwelling Catheter Indwelling Catheter Indwelling Catheter # Bowel Movements 1 1 - Labs CBC & Chem 7: 09/15/24 04:33 09/15/24 04:33 Labs: Abnormal Lab Results - Last 24 Hours (Table) 09/14/24 09/14/24 09/15/24 Range/Units 17:32 20:09 04:33 WBC 12.95 H (4.50-10.00) X 10*3/uL RBC 3.25 L (4.10-5.20) X 10*6/uL Hgb 8.9 L (12.0-15.0) g/dL Hct 28.0 L (37.2-46.3) % MCHC 31.8 L (32.0-37.0) g/dL RDW 16.1 H (11.5-14.5) % Immature Gran # 0.06 H (0.00-0.04) X 10*3/uL Neutrophils # 10.25 H (1.80-7.70) X 10*3/uL Sodium (135-145) mmol/L Chloride (96-109) mmol/L Creatinine (0.6-1.5) mg/dL BUN/Creatinine Ratio (12.00-20.00) Ratio Glucose (70-110) mg/dL POC Glucose (mg/dL) 190 H 191 H (70-110) mg/dL 09/15/24 09/15/24 09/15/24 Range/Units 04:33 05:49 12:23 WBC (4.50-10.00) X 10*3/uL RBC (4.10-5.20) X 10*6/uL Hgb (12.0-15.0) g/dL Hct (37.2-46.3) % MCHC (32.0-37.0) g/dL RDW (11.5-14.5) % Immature Gran # (0.00-0.04) X 10*3/uL Neutrophils # (1.80-7.70) X 10*3/uL Sodium 129 L (135-145) mmol/L Chloride 93 L (96-109) mmol/L Creatinine 0.4 L (0.6-1.5) mg/dL BUN/Creatinine Ratio 27.50 H (12.00-20.00) Ratio Glucose 206 H (70-110) mg/dL POC Glucose (mg/dL) 222 H 241 H (70-110) mg/dL Microbiology - Last 24 Hours (Table) 09/11/24 13:02 Blood Culture - Preliminary Blood
[2024-09-15 16:55] LABS: Bilirubin,Urine Negative (Negative); Blood,Urine Trace (Negative); Color,Urine Yellow; Glucose,Urine (UA) Negative (Negative); Ketones,Urine Negative (Negative); Leukocyte Esterase,Urine Large (Negative); Mucus,Urine Rare /hpf; Nitrite,Urine Negative (Negative); PH, Urine 6.5 (5.0-8.0); Protein,Urine Trace (Negative); RBC,Urine 3 /hpf (0-5); Specific Gravity,Urine 1.016 (1.001-1.035); Urobilinogen,Urine <2.0 mg/dL (<2.0); WBC,Urine >182 /hpf (0-5)
[2024-09-15] MEDS ORDERED: ZINC OXIDE PASTE (Z-GUARD) 1 APPLIC TOPICAL PRN (17:18)
[2024-09-15 17:31] LABS: Glucose,Whole Blood 168 mg/dL (70-110)
[2024-09-15] MEDS: HYDROmorphone 0.5 MG/0.5 ML SYRINGE IVP PRN (17:58)
--- NOTE | 2024-09-15 20:20 | CDI ---
Documentation Clarification Form Date: 09/15/2024 07:52:58 PM From: Jannet Lake RN CCDS Phone: [phone] Admit Date: 09/12/2024 10:12:00 AM Patient Name: Mary Jo Caldwell Visit Number: [id number] Discharge Date: ATTENTION: The Clinical Documentation Specialists (CDI) and [facility] Coding Staff appreciate your assistance in clarifying documentation. Please respond to the clarification below the line at the bottom and electronically sign. The CDI & [facility] Coding staff will review the response and follow-up if needed. Please note: Queries are made part of the Legal Health Record. If you have any questions, please contact the author of this message via ITS. Doctor: Jannette Lainez Sepsis is documented 09/15, Medicine note which may lack sufficient clinical evidence/support in the medical record. Additional clarification is requested . History/Risk Factors: 63 year old female presents to the ED for weakness has been in and out of the hospital since May of 2024 after a fall with broken hip. After patient is discharged a few days she becomes weak again with ongoing shortness of breath. Medical History: DM2, CVA with right sided weakness, duodenitis and left hip fracture. 09/11, ED NOTE Clinical Indicators: 09/15 VSS: B/P 115/62; HR 88; Temp 98.1 F Oral; RR 16; SpO2 96% ra bmi 19.9kg 09/15 Labs: Wbc 12.95, Neutrophils 10.25 09/11, Urine: Light yellow, cloudy protein trace glucose 3+ leukocyte esterase large, rbc 6, wnc 122, squamous epith cells 1, urine mucus rare. 09/11, Urine Culture , negative after 18 hours 09/15, Urine: Yellow, turbid, protein trace, blood trace, leukocyte esterase Large, RBC 3, Wbc >182 wbc clumps many 09/15 Blood culture negative after 72 hours. Treatment: Monitoring: Daily vss, Daily labs Please clarify if sepsis is a valid diagnosis? [ x ] No, Sepsis is ruled out [ ] Yes, Sepsis is present as evidence by (additional clinical support): [ ] Other (please specify diagnosis) [ ] Unable to determine (Template Last Revised: July 2023) MTDD
[2024-09-15 20:30] LABS: Glucose,Whole Blood 199 mg/dL (70-110)
--- NOTE | 2024-09-15 20:33 | CDI ---
Documentation Clarification Form Date: 09/15/2024 08:21:52 PM From: Jannet Lake RN CCDS Phone: [phone] Admit Date: 09/12/2024 10:12:00 AM Patient Name: Mary Jo Caldwell Visit Number: [id number] Discharge Date: ATTENTION: The Clinical Documentation Specialists (CDI) and [facility] Coding Staff appreciate your assistance in clarifying documentation. Please respond to the clarification below the line at the bottom and electronically sign. The CDI & [facility] Coding staff will review the response and follow-up if needed. Please note: Queries are made part of the Legal Health Record. If you have any questions, please contact the author of this message via ITS. Doctor: Lainez Possible UTI is documented 09/11, HP through 09/15 and UTI is documented 09/15, Medicine note. Which may lack sufficient clinical evidence/support in the medical record. Additional clarification is requested. History/Risk Factors: 63 year old female presents to the ED for weakness has been in and out of the hospital since May of 2024 after a fall with broken hip. After patient is discharged a few days she becomes weak again with ongoing shortness of breath. Medical History: DM2, CVA with right sided weakness and left hip fracture. 09/11, ED NOTE Clinical Indicators: 09/11, VSS: B/P 109/79, HR 77, Temp 98.5F Oral, RR 18, SpO2 97% ra 09/11, Labs: Wbc 6.81, 09/11, Urine: Light yellow, cloudy protein trace glucose 3+ leukocyte esterase large, rbc 6, wnc 122, squamous epith cells 1, urine mucus rare. 09/11, Urine Culture, negative after 18 hours 09/15 Blood culture negative after 72 hours. Treatment: Monitoring: Daily vss and Daily labs, 09/11: Lactated Ringers 65cc/hr IV x 2 bags. Please clarify if UTI is a valid diagnosis? [ ] No, UTI is ruled out [ ] Yes, UTI is present as evidence by (additional clinical support): [ ] Other (please specify diagnosis) [ x ] Unable to determine (Template Last Revised: July 2023) MTDD
--- NOTE | 2024-09-15 20:51 | CDI ---
Documentation Clarification Form Date: 09/15/2024 08:42:47 PM From: Jannet Lake RN CDIS Phone: [phone] Admit Date: 09/12/2024 10:12:00 AM Patient Name: Mary Jo Caldwell Visit Number: [id number] Discharge Date: ATTENTION: The Clinical Documentation Specialists (CDI) and [facility] Coding Staff appreciate your assistance in clarifying documentation. Please respond to the clarification below the line at the bottom and electronically sign. The CDI & [facility] Coding staff will review the response and follow-up if needed. Please note: Queries are made part of the Legal Health Record. If you have any questions, please contact the author of this message via ITS. Doctor: Jannette Lainez An unstageable heel pressure ulcer is documented by Nursing 09/12, Wound assessment. Based on this information and the findings below, is there an additional diagnosis that is clinically appropriate for this patient? History/Risk Factors: 63 year old female presents to the ED for weakness has been in and out of the hospital since May of 2024 after a fall with broken hip. After patient is discharged a few days she becomes weak again with ongoing shortness of breath. Medical History: DM2, CVA with right sided weakness and left hip fracture. 09/11, ED NOTE Clinical Indicators: Location: Right heel Wound description: rodolfo wound texture callus, rodolfo wound moisture dry/scaly, per wound temperature no abnormality (patient warm), Dressing dry and intact changed. Treatment: Foam with border, protective boot in place, heels floated. Is there an additional diagnosis that is clinically appropriate for this patient? [ x ] Right Heel Pressure Ulcer unstageable [ ] Other condition, please specify [ ] Unable to determine Clinical Definitions: Stage 1 Pressure Ulcer: intact skin, non-blanching redness of local area Stage 2 Pressure Ulcer: Partial thickness, loss of dermis, pink wound bed Stage 3 Pressure Ulcer: Full thickness tissue loss Stage 4 Pressure Ulcer: Full thickness tissue loss with exposed bone, tendon, or muscle. Unstageable pressure ulcer: Full thickness tissue loss in which the base of the ulcer is covered by slough (yellow, mauro, dupont, green or brown) and/or eschar (mauro, brown or black) in the wound bed. (Template Last Revised: April 2020) MTDD
--- NOTE | 2024-09-15 21:11 | CDI ---
Documentation Clarification Form Date: 09/15/2024 08:56:38 PM From: Jannet Lake RN CDIS Phone: [phone] Admit Date: 09/12/2024 10:12:00 AM Patient Name: aMry Jo Caldwell Visit Number: [id number] Discharge Date: ATTENTION: The Clinical Documentation Specialists (CDI) and [facility] Coding Staff appreciate your assistance in clarifying documentation. Please respond to the clarification below the line at the bottom and electronically sign. The CDI & [facility] Coding staff will review the response and follow-up if needed. Please note: Queries are made part of the Legal Health Record. If you have any questions, please contact the author of this message via ITS. Doctor: Jannette Lainez Conflicting documentation has been found in the medical record. As attending physician, please provide clarification. Medial Sacrum Pressure injury stage 3, nursing assessment 09/12, 09/14, 09/15 Medial Sacrum Pressure injury unstageable, nursing assessment 09/13- 09/14 History/Risk Factors: 63 year old female presents to the ED for weakness has been in and out of the hospital since May of 2024 after a fall with broken hip. After patient is discharged a few days she becomes weak again with ongoing shortness of breath. Medical History: DM2, CVA with right sided weakness and left hip fracture. 09/11, ED NOTE Clinical Indicators: Meg wound excoriation, Meg wound color Erythema Treatment: Foam with border, Turn Q2H, absobant pad, Z Guard PRN Please clarify which diagnosis is most appropriate: [ x ] Medial stage III pressure ulcer [ ] Medial Unstageable pressure ulcer [ ] Other (please specify) [ ] Unable to determine Clinical Definitions: Stage 1 Pressure Ulcer: intact skin, non-blanching redness of local area Stage 2 Pressure Ulcer: Partial thickness, loss of dermis, pink wound bed Stage 3 Pressure Ulcer: Full thickness tissue loss Stage 4 Pressure Ulcer: Full thickness tissue loss with exposed bone, tendon, or muscle. Unstageable pressure ulcer: Full thickness tissue loss in which the base of the ulcer is covered by slough (yellow, mauro, dupont, green or brown) and/or eschar (mauro, brown or black) in the wound bed. (Template Last Revised: April 2020) MTDD
--- NOTE | 2024-09-15 21:26 | CDI ---
Documentation Clarification Form Date: 09/15/2024 09:13:46 PM From: Jannet Lake Phone: [phone] Admit Date: 09/12/2024 10:12:00 AM Patient Name: Mary Jo Caldwell Visit Number: [id number] Discharge Date: ATTENTION: The Clinical Documentation Specialists (CDI) and [facility] Coding Staff appreciate your assistance in clarifying documentation. Please respond to the clarification below the line at the bottom and electronically sign. The CDI & [facility] Coding staff will review the response and follow-up if needed. Please note: Queries are made part of the Legal Health Record. If you have any questions, please contact the author of this message via ITS. Doctor/Provider: Jannette Lainez Conflicting documentation has been found in the medical record. As attending physician, please provide clarification. Left Sacrum stage III, Nursing assessment. 09/12, 09/14,09/15 Left Sacrum unstageable, Nursing assessment 09/13, 09/14 History/Risk Factors: 63 year old female presents to the ED for weakness has been in and out of the hospital since May of 2024 after a fall with broken hip. After patient is discharged a few days she becomes weak again with ongoing shortness of breath. Medical History: DM2, CVA with right sided weakness and left hip fracture. 09/11, ED NOTE Clinical Indicators: 09/12 Left Sacrum: Meg wound texture Excoriation, meg wound moisture dry/scaly, meg wound color erythema, 09/13 Left Sacrum: Meg wound moisture dry/scaly, meg wound color erythema, Treatment: Foam with border, Turn Q2H, absobant pad, Z Guard PRN Please clarify which diagnosis is most appropriate: [ ] Left Sacrum Pressure Injury Stage III [ ] Left Sacrum Pressure Injury Unstageable [ ] Other (please specify) [ x ] Unable to determine Clinical Definitions: Stage 1 Pressure Ulcer: intact skin, non-blanching redness of local area Stage 2 Pressure Ulcer: Partial thickness, loss of dermis, pink wound bed Stage 3 Pressure Ulcer: Full thickness tissue loss Stage 4 Pressure Ulcer: Full thickness tissue loss with exposed bone, tendon, or muscle. Unstageable pressure ulcer: Full thickness tissue loss in which the base of the ulcer is covered by slough (yellow, mauro, dupont, green or brown) and/or eschar (mauro, brown or black) in the wound bed. (Template Last Revised: April 2020) MTDD
[2024-09-16 06:21] LABS: Glucose,Whole Blood 235 mg/dL (70-110)
[2024-09-16 08:25] LABS: Basophils # (A) 0.05 X 10*3/uL (0.00-0.10); Basophils % (A) 0.4 %; Eosinophils # (A) 0.10 X 10*3/uL (0.04-0.35); Eosinophils % (A) 0.7 %; HCT 28.3 % (37.2-46.3); HGB 9.0 g/dL (12.0-15.0); Immature Grans, Automated 0.60 %; Lymphocytes # (A) 1.63 X 10*3/uL (0.90-5.00); Lymphocytes % (A) 11.8 %; MCH 27.2 pg (27.0-32.0); MCHC 31.8 g/dL (32.0-37.0); MCV 85.5 FL (80.0-97.0); Monocytes # (A) 1.00 X 10*3/uL (0.20-1.00); Monocytes % (A) 7.2 %; NRBC Per 100 WBC 0 X 10*3/uL (0.00-0.01); Neutrophils # (A) 10.99 X 10*3/uL (1.80-7.70); Neutrophils % (A) 79.3 %; Platelet Count 357 X 10*3/uL (140-440); RBC 3.31 X 10*6/uL (4.10-5.20); RDW 15.9 % (11.5-14.5); WBC 13.85 X 10*3/uL (4.50-10.00)
[2024-09-16 10:24] LABS: Anion Gap 14.20 mmol/L (4.00-12.00); BUN/Creat Ratio 21.40 Ratio (12.00-20.00); Blood Urea Nitrogen 10.7 mg/dL (9.0-27.0); Calcium 9.1 mg/dL (8.7-10.3); Carbon Dioxide 23.8 mmol/L (21.6-31.8); Chloride 95 mmol/L (96-109); Glucose 215 mg/dL (70-110); Potassium 4.3 mmol/L (3.5-5.5); Sodium 133 mmol/L (135-145)
[2024-09-16 12:17] LABS: Glucose,Whole Blood 257 mg/dL (70-110)
--- NOTE | 2024-09-16 14:11 | P.PN ---
Subjective Progress Note Date: 09/16/24 SURGICAL PROGRESS NOTE HISTORY OF PRESENT ILLNESS: Surgical service following for constipation. Patient having bowel movements. Patient reports that she has issues with swallowing solid foods. She reports that she tried to eat eggs this morning and they felt that they got stuck. Denies any abdominal pain. Afebrile. WBC 13.8 PHYSICAL EXAM: VITAL SIGNS: Reviewed. GENERAL: no acute distress. ABDOMEN: Soft. Nondistended. Nontender. NEUROLOGIC: Alert and oriented. Cranial nerves II through XII grossly intact. ASSESSMENT: 1. Resolving constipation 2. Dysphagia PLAN: -Will schedule patient for EGD on for evaluation of dysphagia -Place Plavix on hold -Continue stool softeners Physician Medical Office Specialist note has been reviewed by physician. Signing provider agrees with the documented findings, assessment, and plan of care. Objective - Vital Signs Vital signs: Vital Signs Temp 98.3 F 09/16/24 07:48 Pulse 70 09/16/24 07:48 Resp 17 09/16/24 07:48 BP 116/73 09/16/24 07:48 Pulse Ox 98 09/16/24 07:48 FiO2 Intake & Output 09/15/24 09/16/24 09/16/24 18:59 06:59 18:59 Intake Total 474 300 Output Total 300 400 Balance 174 -400 300 Intake: Oral 474 300 Output: Urine 300 400 Other: Voiding Method Indwelling Catheter Indwelling Catheter # Bowel Movements 1 1 - Labs CBC & Chem 7: 09/16/24 05:49 09/16/24 05:49 Labs: Abnormal Lab Results - Last 24 Hours (Table) 09/15/24 09/15/24 09/15/24 Range/Units 16:00 17:29 20:29 WBC (4.50-10.00) X 10*3/uL RBC (4.10-5.20) X 10*6/uL Hgb (12.0-15.0) g/dL Hct (37.2-46.3) % MCHC (32.0-37.0) g/dL RDW (11.5-14.5) % Immature Gran # (0.00-0.04) X 10*3/uL Neutrophils # (1.80-7.70) X 10*3/uL Sodium (135-145) mmol/L Chloride (96-109) mmol/L Anion Gap (4.00-12.00) mmol/L Creatinine (0.6-1.5) mg/dL BUN/Creatinine Ratio (12.00-20.00) Ratio Glucose (70-110) mg/dL POC Glucose (mg/dL) 168 H 199 H (70-110) mg/dL Urine Appearance Turbid H (Clear) Urine Protein Trace H (Negative) Urine Blood Trace H (Negative) Ur Leukocyte Esterase Large H (Negative) Urine WBC >182 H (0-5) /hpf Urine WBC Clumps Many H (None) /hpf Urine Mucus Rare H (None) /hpf 09/16/24 09/16/24 09/16/24 Range/Units 05:49 05:49 06:20 WBC 13.85 H (4.50-10.00) X 10*3/uL RBC 3.31 L (4.10-5.20) X 10*6/uL Hgb 9.0 L (12.0-15.0) g/dL Hct 28.3 L (37.2-46.3) % MCHC 31.8 L (32.0-37.0) g/dL RDW 15.9 H (11.5-14.5) % Immature Gran # 0.08 H (0.00-0.04) X 10*3/uL Neutrophils # 10.99 H (1.80-7.70) X 10*3/uL Sodium 133 L (135-145) mmol/L Chloride 95 L (96-109) mmol/L Anion Gap 14.20 H (4.00-12.00) mmol/L Creatinine 0.5 L (0.6-1.5) mg/dL BUN/Creatinine Ratio 21.40 H (12.00-20.00) Ratio Glucose 215 H (70-110) mg/dL POC Glucose (mg/dL) 235 H (70-110) mg/dL Urine Appearance (Clear) Urine Protein (Negative) Urine Blood (Negative) Ur Leukocyte Esterase (Negative) Urine WBC (0-5) /hpf Urine WBC Clumps (None) /hpf Urine Mucus (None) /hpf 09/16/24 Range/Units 12:04 WBC (4.50-10.00) X 10*3/uL RBC (4.10-5.20) X 10*6/uL Hgb (12.0-15.0) g/dL Hct (37.2-46.3) % MCHC (32.0-37.0) g/dL RDW (11.5-14.5) % Immature Gran # (0.00-0.04) X 10*3/uL Neutrophils # (1.80-7.70) X 10*3/uL Sodium (135-145) mmol/L Chloride (96-109) mmol/L Anion Gap (4.00-12.00) mmol/L Creatinine (0.6-1.5) mg/dL BUN/Creatinine Ratio (12.00-20.00) Ratio Glucose (70-110) mg/dL POC Glucose (mg/dL) 257 H (70-110) mg/dL Urine Appearance (Clear) Urine Protein (Negative) Urine Blood (Negative) Ur Leukocyte Esterase (Negative) Urine WBC (0-5) /hpf Urine WBC Clumps (None) /hpf Urine Mucus (None) /hpf
--- NOTE | 2024-09-16 16:36 | P.DS ---
Providers Date of admission: 09/12/24 10:12 Expected date of discharge: 09/16/24 Attending physician: Caleb Reyna MD Consults: 09/12/24 16:09 Consult Physician Routine Consulting Provider: Long Lilly Consult Reason/Comments: abd discomfort, constipation. Do you want consulting provider notified?: Yes Primary care physician: Crystal Stanton Hospital Course: Final diagnosis Chest pain, unstable angina, ACS ruled out per cardiology Abdominal distention with constipation and has had previous ileus is, scheduled for endoscopy on , 09/18/2024 Urinary tract infection with sepsis, present on admission, has completed antibiotic course History of CVA/TIA Gait dysfunction Diabetes mellitus, type II, uncontrolled with hyper and hypoglycemia History of coronary artery disease Chronic peripheral artery disease History of celiac disease History of chronic low back pain History of hiatal hernia History of neuropathy bilateral feet Former smoker Anxiety GI prophylaxis DVT prophylaxis Full code Discharge disposition Patient is being discharged in a stable condition with guarded prognosis to [facility]. Patient will follow-up with in the outpatient setting upon discharge. Patient is to continue with hemodialysis as scheduled. Total time taken is greater than 35 minutes. Hospital course This is a 63-year-old female who was recently admitted with chest pain multiple chronic problems ongoing including abdominal distention and generalized weakness. Patient was evaluated by cardiology and cleared for outpatient follow-up. Patient also will be undergoing EGD/colonoscopy in the outpatient setting with this , 09/18/2024 as patient reports she is having some issues with eating and chronic distention and has been having ileus versus small bowel obstruction. Patient is significantly weak and will be returning to [facility] for continued strength and mobility. Patient has chronic cystitis and recurrent urinary tract infections and colonization. Patient has been cleared by consultations and will be returning to [facility]. Please refer to consultation notes for further HPI. Strongly recommend bowel regimen and patient will be having GoLytely prep per surgery. Currently no reports of chest pain, shortness of breath, or palpitations. Patient is afebrile. No reports of nausea or vomiting and patient is tolerating diet. Recommend soft diet and clear liquids prior to endoscopy. Patient will be going to [facility] today. Guarded prognosis and high risk for readmissions given significant comorbidities Physical exam: Gen: This is a 63-year-old female who is awake, alert and oriented x 2-3, baseline, well-developed, elderly appearing, chronically ill-appearing, cachectic, weak and frail HEENT: Head is atraumatic, normocephalic. Pupils equal, round. Sclerae is anicteric. NECK: Supple. No JVD. No lymphadenopathy. No thyromegaly. LUNGS: Diminished breath sounds bilaterally otherwise clear to auscultation. No wheezes or rhonchi. No intercostal retractions. HEART: S1, S2 are muffled ABDOMEN: Soft. Mildly distended bowel sounds are present. No masses. No tenderness. EXTREMITIES: No pedal edema. No calf tenderness. NEUROLOGICAL: Patient is awake, alert and oriented x3. Cranial nerves 2 through 12 are grossly intact. Diffusely weak Please refer to medication reconciliation sheet for a list of medications. The impression and plan of care has been dictated by Consuelo Combs, Nurse Practitioner as directed. Dr. Migel MD I have performed a history and examination and MDM of this patient, discussed the same with the dictator, and agree with the dictator's assessment and plan as written ,documented as a scribe. Based on total visit time, I have performed more than 50% of the visit. Patient Condition at Discharge: Fair Plan - Discharge Summary Discharge Rx Participant: No New Discharge Prescriptions: New Dicyclomine [Bentyl] 10 mg PO TID PRN cap PRN Reason: Dyspepsia traMADol HCl [Ultram] 50 mg PO TID PRN #6 tab PRN Reason: Pain Continue Atorvastatin [Lipitor] 80 mg PO HS INSULIN LISPRO (humaLOG) [humaLOG] See Protocol SQ ACHS@07,11,16,20 Spironolactone [Aldactone] 12.5 mg PO DAILY tab Clopidogrel [Plavix] 75 mg PO DAILY tab Metoprolol Succinate (ER) [Toprol XL] 12.5 mg PO DAILY tab Naloxone HCl [Narcan] 4 mg NASAL DIRECTED PRN PRN Reason: OVERDOSE Naloxone HCl 0.4 mg IM DIRECTED PRN PRN Reason: OVERDOSE Acetaminophen [Tylenol 8 Hour] 650 mg PO Q6H PRN PRN Reason: Pain Sennosides [Senokot] 17.2 mg PO BID Omeprazole [PriLOSEC] 20 mg PO DAILY Aspirin 81 mg PO DAILY@1400 Ascorbic Acid [Vitamin C] 500 mg PO DAILY ALPRAZolam [Xanax] 0.25 mg PO TID PRN #6 tab PRN Reason: Anxiety Gabapentin [Neurontin] 100 mg PO HS Fenofibrate [Lofibra] 160 mg PO DAILY DULoxetine HCL [Cymbalta] 60 mg PO HS cilostazoL [Pletal] 50 mg PO BID Oxybutynin ER [Ditropan XL] 10 mg PO DAILY #30 tab Ondansetron Odt [Zofran ODT] 4 mg PO Q8HR PRN #20 tab PRN Reason: Nausea Ipratropium-Albuterol Nebulize [Duoneb 0.5 mg-3 mg/3 ml Soln] 3 ml INHALATION RT-TID PRN each PRN Reason: Shortness Of Breath Or Wheezing Nitroglycerin Sl Tabs [Nitrostat] 0.4 mg SUBLINGUAL Q5M PRN tab PRN Reason: Chest Pain bisacodyL [Dulcolax] 10 mg RECTAL DAILY PRN PRN Reason: Constipation Docusate [Colace] 200 mg PO BID Isosorbide Mononitrate ER [Imdur] 15 mg PO DAILY Changed HYDROcodone/APAP 5-325MG [Citronelle 5-325] 1 tab PO Q6H PRN #6 tab PRN Reason: Pain Discharge Medication List Atorvastatin [Lipitor] 80 mg PO HS 06/26/16 [History] DULoxetine HCL [Cymbalta] 60 mg PO HS 05/30/24 [History] Fenofibrate [Lofibra] 160 mg PO DAILY 05/30/24 [History] Gabapentin [Neurontin] 100 mg PO HS 05/30/24 [History] INSULIN LISPRO (humaLOG) [humaLOG] See Protocol SQ ACHS@07,11,16,20 05/30/24 [History] cilostazoL [Pletal] 50 mg PO BID 05/30/24 [History] Ondansetron Odt [Zofran ODT] 4 mg PO Q8HR PRN #20 tab 08/01/24 [Rx] Oxybutynin ER [Ditropan XL] 10 mg PO DAILY #30 tab 08/01/24 [Rx] Clopidogrel [Plavix] 75 mg PO DAILY tab 09/02/24 [Rx] Ipratropium-Albuterol Nebulize [Duoneb 0.5 mg-3 mg/3 ml Soln] 3 ml INHALATION RT-TID PRN each 09/02/24 [Rx] Metoprolol Succinate (ER) [Toprol XL] 12.5 mg PO DAILY tab 09/02/24 [Rx] Nitroglycerin Sl Tabs [Nitrostat] 0.4 mg SUBLINGUAL Q5M PRN tab 09/02/24 [Rx] Spironolactone [Aldactone] 12.5 mg PO DAILY tab 09/02/24 [Rx] Acetaminophen [Tylenol 8 Hour] 650 mg PO Q6H PRN 09/11/24 [History] Ascorbic Acid [Vitamin C] 500 mg PO DAILY 09/11/24 [History] Aspirin 81 mg PO DAILY@1400 09/11/24 [History] Docusate [Colace] 200 mg PO BID 09/11/24 [History] Isosorbide Mononitrate ER [Imdur] 15 mg PO DAILY 09/11/24 [History] Naloxone HCl 0.4 mg IM DIRECTED PRN 09/11/24 [History] Naloxone HCl [Narcan] 4 mg NASAL DIRECTED PRN 09/11/24 [History] Omeprazole [PriLOSEC] 20 mg PO DAILY 09/11/24 [History] Sennosides [Senokot] 17.2 mg PO BID 09/11/24 [History] bisacodyL [Dulcolax] 10 mg RECTAL DAILY PRN 09/11/24 [History] ALPRAZolam [Xanax] 0.25 mg PO TID PRN #6 tab 09/16/24 [Rx] Dicyclomine [Bentyl] 10 mg PO TID PRN cap 09/16/24 [Rx] HYDROcodone/APAP 5-325MG [Citronelle 5-325] 1 tab PO Q6H PRN #6 tab 09/16/24 [Rx] traMADol HCl [Ultram] 50 mg PO TID PRN #6 tab 09/16/24 [Rx] Follow up Appointment(s)/Referral(s): Crystal Stanton DO [Primary Care Provider] - 1-2 days Long Lilly MD [STAFF PHYSICIAN] - 09/18/24 Activity/Diet/Wound Care/Special Instructions: EGD and colonoscopy scheduled for , September 18, [address] Lilly Scheduling department will notify patient of time of procedure Start bowel prep 09/17/2024 Start clear liquid diet the morning of 09/17/2024 And then nothing by mouth after midnight for procedure on Stop taking Plavix in preparation for your EGD and colonoscopy Discharge Disposition: TRANSFER TO SNF/ECF
[2024-09-16 17:15] LABS: Glucose,Whole Blood 225 mg/dL (70-110)
[2024-09-16 19:51] VITALS: BP 106/64; PULSE 91; RESP 16; TEMP 98.3
== END 2024-09-16 20:12 | DRG 871 ==
LOC: EC 12:13 → 6NMEDSUR 18:17 → OBSVTOIN 09-12 10:12
PROVIDERS: ADMIT Internal Medicine; ATTEND Internal Medicine
DX: A41.9 Sepsis, unspecified organism (principal); L89.153 Pressure ulcer of sacral region, stage 3; L89.320 Pressure ulcer of left buttock, unstageable; L89.610 Pressure ulcer of right heel, unstageable; G45.9 Transient cerebral ischemic attack, unspecified; L89.619 Pressure ulcer of right heel, unspecified stage; R13.10 Dysphagia, unspecified; I69.351 Hemiplegia and hemiparesis following cerebral infarction affecting right dominant side; E11.42 Type 2 diabetes mellitus with diabetic polyneuropathy; I10 Essential (primary) hypertension; I70.0 Atherosclerosis of aorta; N13.30 Unspecified hydronephrosis; E11.621 Type 2 diabetes mellitus with foot ulcer; E11.65 Type 2 diabetes mellitus with hyperglycemia; E11.622 Type 2 diabetes mellitus with other skin ulcer; E11.51 Type 2 diabetes mellitus with diabetic peripheral angiopathy without gangrene; I65.29 Occlusion and stenosis of unspecified carotid artery; Z11.52 Encounter for screening for COVID-19; N30.20 Other chronic cystitis without hematuria; L89.329 Pressure ulcer of left buttock, unspecified stage; E78.5 Hyperlipidemia, unspecified; I25.10 Atherosclerotic heart disease of native coronary artery without angina pectoris; R07.89 Other chest pain; Z87.891 Personal history of nicotine dependence; G89.29 Other chronic pain; Z87.19 Personal history of other diseases of the digestive system; F41.9 Anxiety disorder, unspecified; I25.2 Old myocardial infarction; I25.5 Ischemic cardiomyopathy; K90.0 Celiac disease; Z79.02 Long term (current) use of antithrombotics/antiplatelets; Z79.82 Long term (current) use of aspirin; Z79.899 Other long term (current) drug therapy; Z82.49 Family history of ischemic heart disease and other diseases of the circulatory system; Z87.01 Personal history of pneumonia (recurrent); Z87.440 Personal history of urinary (tract) infections; Z87.11 Personal history of peptic ulcer disease; Z95.5 Presence of coronary angioplasty implant and graft
CPT/HCPCS: 36415; 71046; 74176; 80048; 80053; 81001; 83605; 83735; 83880; 84145; 84484; 85025; 85610; 85730; 87040; 87086; 87636; 93005; 94760; 96361; 96374; 96375; 99285